=== PATIENT | female | born 1950 | race Caucasian/White ===

== ENCOUNTER 2018-02-27 13:11 | Emergency (ER) | payer MEDICARE, MEDICAID, SELFPAY ==
[2018-02-27 13:18] VITALS: BP 123/75; PULSE 64; RESP 16; TEMP 37.3; O2SAT 100; BMI 23.2
--- NOTE | 2018-02-27 13:22 | ED.ABDPAIN ---
HPI - Abdominal Pain <Cynthia Santos [employer] - Last Filed: 02/27/18 22:47> General Chief Complaint: Abdominal Pain Stated Complaint: Dizziness, Blurred Vision Time Seen by Provider: 02/27/18 13:13 Source: patient, family and EMS Mode of arrival: EMS Limitations: no limitations History of Present Illness HPI narrative: Patient presents with chief complaint of abdominal pain for several days. She has a history of anemia, pancreatitis and ulcers. She states that her pain got worse several days ago that has gone on for weeks prior. States pain is epigastric that radiates to her upper back. She denies any alleviating or worsening factors. She was treated at [facility] emergency department 2 days ago and was diagnosed with a peptic ulcer. She states they started her on medications, but she is unsure what they are called and she states they are too expensive for her to afford. She also complains of nausea, denies vomiting, denies diarrhea and states her last bowel movement was 2 days ago. She denies blood in her stool. She states that [facility] also diagnosed her with a urinary tract infection and started her on Bactrim. Changing factors were this morning when she woke up, she had blurred vision for 2 hrs with lightheadedness/dizziness and felt that she was too weak to stand. She states her legs felt like jelly. She states that her dizziness and blurry vision of resolved. Otherwise patient denies fevers, ear pain, sore throat, cough or congestion. She denies any recent trauma though states she fell 2 weeks ago. An abdominal CT from 02/25/2018 illustrate no bowel obstruction, nonobstructing left intrarenal stone, and stable diffuse biliary dilation. MD complaint: abdominal pain Related Data Home Medications Medication Instructions Recorded Confirmed metoprolol tartrate 25 mg PO DAILY #0 04/24/17 02/27/18 gabapentin 300 mg PO TID #0 08/13/17 02/27/18 sucralfate 1 g PO Q6H 02/27/18 02/27/18 sulfamethoxazole-trimethoprim 1 tab PO BID 02/27/18 02/27/18 Previous Rx's Medication Instructions Recorded hydroxyzine pamoate [Vistaril] 25 mg PO Q4HP PRN #40 cap 08/30/17 diazepam [Valium] 5 mg PO Q8HP PRN #6 tab 04/06/18 omeprazole 20 mg PO DAILY #14 cap 02/27/18 Allergies Allergy/AdvReac Type Severity Reaction Status Date / Time amitriptyline [AMITRIPTYLINE] Allergy Unknown Verified 02/27/18 13:18 tramadol [TRAMADOL] Allergy Unknown Verified 02/27/18 13:18 Review of Systems <[facility] - Last Filed: 02/27/18 22:47> Review of Systems GENERAL: See HPI HEENT: Denies sinus pain, ear pain, sore throat, difficulty swallowing, dizziness. RESPIRATORY: Denies dyspnea, cough, wheezing, hemoptysis, sputum. CARDIOVASCULAR: Denies chest pain, palpitations, orthopnea, edema, GASTROINTESTINAL: See HPI : Denies dysuria, frequency, incontinence, hematuria, urinary retention. MUSCULOSKELETAL: denies weakness, joint pain, or bony pain SKIN: Denies rash, skin lesions, or other NEUROLOGIC: See HPI PSYCHIATRIC: No concerning psychosocial issues. 12 point review of systems is negative except for those stated above Exam <Cynthia Santos [facility] - Last Filed: 02/27/18 22:47> Narrative Exam Narrative: GENERAL: Chronically ill-appearing elderly female lying in bed with at bedside. HEAD: Atraumatic. Normocephalic. No temporal or scalp tenderness. EYES: Pupils equal round and reactive. Extraocular motions intact. No scleral icterus. No injection or drainage. ENT: Nose without bleeding, purulent drainage or septal hematoma. Throat without erythema, tonsillar hypertrophy or exudate. Uvula midline. Airway patent. NECK: Trachea midline. No JVD or lymphadenopathy. Supple, nontender, no meningeal signs. CARDIOVASCULAR: Regular rate and rhythm RESPIRATORY: Clear to auscultation. Breath sounds equal bilaterally. No wheezes, rales, or rhonchi. GASTROINTESTINAL: Abdomen soft, diffusely tender to palpation. Active bowel sounds. No palpable organomegaly Extremities: No clubbing, cyanosis, or edema. No joint tenderness, effusion, or edema noted. BACK: Nontender without deformity or crepitance. No flank tenderness. NEURO: AOx3. Noted to have weakness and left lower leg. Patient states this is chronic. SKIN: No rash or erythema. Initial Vital Signs Initial Vital Signs: Vital Signs Temperature 99.1 F 02/27/18 13:18 Pulse Rate 64 07/12/18 13:18 Respiratory Rate 16 02/27/18 13:18 Blood Pressure 123/75 H 02/27/18 13:18 Pulse Oximetry 100 02/27/18 13:18 <Collin Guzman DO - Last Filed: 02/28/18 07:30> Initial Vital Signs Initial Vital Signs: Vital Signs Temperature 99.1 F 02/27/18 13:18 Pulse Rate 64 02/27/18 13:18 Respiratory Rate 16 02/27/18 13:18 Blood Pressure 123/75 H 02/27/18 13:18 Pulse Oximetry 100 02/27/18 13:18 Course <Cynthia Santos [employer] - Last Filed: 02/27/18 22:47> Additional Information: The patient underwent a thorough examination the emergency department including a CBC, CMP, lipase and troponin. Given her dizziness and blurred vision she had a CT. She also had an EKG due to her epigastric pain. Given her her pain level, a CT was ordered. A CT showed a small obstructing kidney stone. Given the 3 mm size, I discussed pushing fluids and straining her urine. She was discharged with a urine strainer. Given her epigastric pain, I discussed at length dietary changes including decreased acidity and spice. Her pain was tree in the emergency department with oxycodone x1, a GI cocktail and Zofran. Given that she is on a pain contract, she ought to follow up with the primary care physician for outpatient narcotic medications. Orders Ordered: Discontinued Medications Al Hydrox/Mg Hydrox/Simethicone 20 ml/ Lidocaine HCl 15 ml 0 ml PO NOW ONE Stop: 02/27/18 14:30 Last Admin: 02/27/18 14:35 Dose: Not Given Sodium Chloride (Normal Saline 0.9%) 1,000 mls @ 150 mls/hr IV CONT LACY Last Admin: 02/27/18 13:58 Dose: Not Given Sodium Chloride (Normal Saline 0.9%) 1,000 mls @ 150 mls/hr IV CONT LACY Last Infusion: 02/27/18 17:30 Dose: 0 mls/hr Admin: 02/27/18 15:53 Dose: 150 mls/hr Ondansetron HCl (Zofran Odt) 4 mg PO NOW ONE Stop: 02/27/18 14:33 Last Admin: 02/27/18 14:37 Dose: 4 mg Oxycodone HCl (Percolone) 5 mg PO NOW ONE Stop: 02/27/18 17:09 Last Admin: 02/27/18 17:56 Dose: 5 mg Reevaluation(s) Reevaluation #1: Vital Signs - 8 hr 02/27/18 14:35 02/27/18 15:55 02/27/18 16:53 Pulse Rate 65 64 66 Respiratory Rate 16 16 18 Blood Pressure [Left Arm] 121/58 H 139/89 H 149/59 H Pulse Oximetry 99 100 100 02/27/18 17:46 Pulse Rate 63 Respiratory Rate 14 Blood Pressure [Left Arm] 159/76 H Pulse Oximetry 100 <Collin Guzman DO - Last Filed: 02/28/18 07:30> Orders Ordered: Discontinued Medications Al Hydrox/Mg Hydrox/Simethicone 20 ml/ Lidocaine HCl 15 ml 0 ml PO NOW ONE Stop: 02/27/18 14:30 Last Admin: 02/27/18 14:35 Dose: Not Given Sodium Chloride (Normal Saline 0.9%) 1,000 mls @ 150 mls/hr IV CONT LACY Last Admin: 02/27/18 13:58 Dose: Not Given Sodium Chloride (Normal Saline 0.9%) 1,000 mls @ 150 mls/hr IV CONT LACY Last Infusion: 02/27/18 17:30 Dose: 0 mls/hr Admin: 02/27/18 15:53 Dose: 150 mls/hr Ondansetron HCl (Zofran Odt) 4 mg PO NOW ONE Stop: 02/27/18 14:33 Last Admin: 02/27/18 14:37 Dose: 4 mg Oxycodone HCl (Percolone) 5 mg PO NOW ONE Stop: 02/27/18 17:09 Last Admin: 02/27/18 17:56 Dose: 5 mg Vital Signs - 8 hr 02/27/18 14:35 02/27/18 15:55 02/27/18 16:53 Pulse Rate 65 64 66 Respiratory Rate 16 16 18 Blood Pressure [Left Arm] 121/58 H 139/89 H 149/59 H Pulse Oximetry 99 100 100 02/27/18 17:46 Pulse Rate 63 Respiratory Rate 14 Blood Pressure [Left Arm] 159/76 H Pulse Oximetry 100 MDM - Abdominal Pain <Cynthia Santos, [employer] - Last Filed: 02/27/18 22:47> Lab Data Attestation: I reviewed the patient's lab results. Result diagrams: 02/27/18 14:07 02/27/18 14:07 Lab Results 02/27/18 02/27/18 02/27/18 Range/Units 14:07 14:07 15:55 WBC 12.5 H (4.5-11.0) X10^3/uL RBC 3.79 L (4.0-5.2) X10^6/uL Hgb 10.8 L (12.0-16.0) g/dL Hct 32.7 L (36-46) % MCV 86.4 (80-100) fL MCH 28.6 (26-34) PG MCHC 33.0 (30-36) % RDW 21.1 H (11.6-14.8) % Plt Count 407 H (150-400) X10^3/uL Neut % (Auto) 77.0 H (50-75) % Lymph % (Auto) 15.0 L (25-40) % Sharp % (Auto) 6.3 (3-14) % Eos % (Auto) 0.9 L (2-4) % Baso % (Auto) 0.8 (0-2) % Neut # (Auto) 9600 H (4427-1018) /uL RBC Morphology Not Reportable Poikilocytosis 2+ H Anisocytosis 3+ H Spherocytes 2+ H [place] Cells 1+ H Sodium 134 L (137-145) mmol/L Potassium 4.9 (3.4-5.1) mmol/L Chloride 101 (98-107) mmol/L Carbon Dioxide 23 (22-32) mmol/L BUN 24 H (7-17) mg/dL Creatinine 1.60 H (0.52-1.04) mg/dL Estimated GFR 32.2 L (>60) mL/min BUN/Creatinine Ratio 15.0 (6-22) Glucose 105 (80-110) mg/dL Calcium 9.4 (8.4-10.2) mg/dL Total Bilirubin 0.6 (0.2-1.3) mg/dL AST 22 (14-36) IU/L ALT 20 (9-52) IU/L Alkaline Phosphatase 122 (38-126) U/L Total Creatine Kinase 107 (30-135) U/L CK-MB (CK-2) 2.33 (<2.37) ng/mL CK-MB (CK-2) Rel Index 2.2 (1.5-5.0) % Troponin I < 0.012 (0.01-0.034) ng/mL Total Protein 7.0 (6.3-8.2) g/dL Albumin 4.3 (3.5-5.0) g/dL Globulin 2.7 (1.7-4.1) g/dL Albumin/Globulin Ratio 1.6 (1.0-2.8) Lipase 124 (23-300) U/L Urine RBC 0-1/hpf (0-5/HPF) Urine WBC 10-30/hpf H (0-5/HPF) Ur Squamous Epith Cells 0-1 /hpf Urine Bacteria Few (2-10) H (None) Ur Culture Indicated? Specimen cultured Micro UA Comment Not Reportable Point of care testing: Urine Dip Bedside Urine Glucose Negative Bedside Urine Bilirubin - Negative Bedside Urine Ketone - Negative Urine Specific [place] 1.015 Bedside Urine Occult Blood - Negative Bedside Urine pH 6.5 Bedside Urine Protein - Negative Bedside Urine Urobilinogen - Negative Bedside Urine Nitrite - Negative Bedside Urine Leukocytes +++ [address] scan - head: Radiologist's impression: [address] [address] [address] Scan Report Signed Patient: Emani Leiva MR#: [id number] : 1950 Acct:[id number] Age/Sex: 67 / F Date of Service: 02/27/18 Loc: ED Accession Number: [id number] Procedure: CT head/brain wo con Ordering Provider: Cynthia Santos [facility] PROCEDURE: CT HEAD/BRAIN WO CON INDICATIONS: dizziness, blurry vision TECHNIQUE: Noncontrast 4.5 mm thick angled axial sections acquired from the foramen magnum to the vertex, with coronal and sagittal reformats. For radiation dose reduction, the following was used: automated exposure control, adjustment of mA and/or kV according to patient size. COMPARISON: None. FINDINGS: Image quality: Excellent. CSF spaces: Basal cisterns are patent. No extra-axial fluid collections. The ventricles are symmetric in size and shape. Brain: No intracranial bleeds or masses. There is cerebral volume loss for age, with resultant ventricular and sulcal prominence. There are periventricular and deep white matter chronic small vessel ischemic changes. There is intracranial internal carotid artery atherosclerosis. Skull and face: Calvarium and visualized facial bones appear intact, without suspicious lesions. Sinuses: Visualized sinuses and mastoids are clear. IMPRESSION: No acute intracranial abnormality. Dictated by: Jl Downs M.D. on 02/27/2018 at 13:56 Approved by: Jl Downs M.D. on 02/27/2018 at 13:57 CT scan - pelvis: My impression: T10 compression fractures noted on previous outside hospital imaging. Radiologist's impression: ECG Data Attestation: I personally reviewed and interpreted this ECG as follows: Prior ECG tracings: available for review Interpretation: Sinus rhythm. Heart rate 63. No ectopy noted. No ST elevation or depression. MDM Narrative Medical decision making narrative: Patient presented with chief complaint of abdominal pain as well as recent episode of lightheadedness, dizziness and blurred vision. She has a history of pancreatitis, ulcers, and a recent diagnosis of peptic ulcer disease by an outlying facility. A head CT was obtained due to her all sudden onset of weakness of blurred vision. Came back within normal limits. Patient was noted to be slightly anemic, however this appears to be in line with her baseline. Given her epigastric pain, troponin was warning came back negative. She was treated with a GI cocktail, which provided some relief. She was also given some Zofran. However her pain did not improve, so a an abdominal CT was ordered. Her lipase came back within normal limits. On CT, she was found to have a small obstructing kidney stone. Given her a GFR of 32, she was treated with fluids before and after her CT scan. The patient was treated with oxycodone in the emergency department for pain related to her kidney stone. She was discharged with a urine strainer, a prescription for omeprazole for her epigastric pain, and discussed follow-up with her primary care physician. Given her UA indicating infection, a urine culture was ordered for PCP follow-up. I instructed her to continue on the Bactrim she was placed on 2 days prior at [facility]. <Collin Guzman, DO - Last Filed: 02/28/18 07:30> Lab Data Lab Results 02/27/18 02/27/18 02/27/18 Range/Units 14:07 14:07 15:55 WBC 12.5 H (4.5-11.0) X10^3/uL RBC 3.79 L (4.0-5.2) X10^6/uL Hgb 10.8 L (12.0-16.0) g/dL Hct 32.7 L (36-46) % MCV 86.4 (80-100) fL MCH 28.6 (26-34) PG MCHC 33.0 (30-36) % RDW 21.1 H (11.6-14.8) % Plt Count 407 H (150-400) X10^3/uL Neut % (Auto) 77.0 H (50-75) % Lymph % (Auto) 15.0 L (25-40) % Sharp % (Auto) 6.3 (3-14) % Eos % (Auto) 0.9 L (2-4) % Baso % (Auto) 0.8 (0-2) % Neut # (Auto) 9600 H (0390-5666) /uL RBC Morphology Not Reportable Poikilocytosis 2+ H Anisocytosis 3+ H Spherocytes 2+ H [place] Cells 1+ H Sodium 134 L (137-145) mmol/L Potassium 4.9 (3.4-5.1) mmol/L Chloride 101 (98-107) mmol/L Carbon Dioxide 23 (22-32) mmol/L BUN 24 H (7-17) mg/dL Creatinine 1.60 H (0.52-1.04) mg/dL Estimated GFR 32.2 L (>60) mL/min BUN/Creatinine Ratio 15.0 (6-22) Glucose 105 (80-110) mg/dL Calcium 9.4 (8.4-10.2) mg/dL Total Bilirubin 0.6 (0.2-1.3) mg/dL AST 22 (14-36) IU/L ALT 20 (9-52) IU/L Alkaline Phosphatase 122 (38-126) U/L Total Creatine Kinase 107 (30-135) U/L CK-MB (CK-2) 2.33 (<2.37) ng/mL CK-MB (CK-2) Rel Index 2.2 (1.5-5.0) % Troponin I < 0.012 (0.01-0.034) ng/mL Total Protein 7.0 (6.3-8.2) g/dL Albumin 4.3 (3.5-5.0) g/dL Globulin 2.7 (1.7-4.1) g/dL Albumin/Globulin Ratio 1.6 (1.0-2.8) Lipase 124 (23-300) U/L Urine RBC 0-1/hpf (0-5/HPF) Urine WBC 10-30/hpf H (0-5/HPF) Ur Squamous Epith Cells 0-1 /hpf Urine Bacteria Few (2-10) H (None) Ur Culture Indicated? Specimen cultured Micro UA Comment Not Reportable Point of care testing: Urine Dip Bedside Urine Glucose Negative Bedside Urine Bilirubin - Negative Bedside Urine Ketone - Negative Urine Specific [place] 1.015 Bedside Urine Occult Blood - Negative Bedside Urine pH 6.5 Bedside Urine Protein - Negative Bedside Urine Urobilinogen - Negative Bedside Urine Nitrite - Negative Bedside Urine Leukocytes +++ 500 Esterase Discharge Plan Departure Patient Disposition: Home, Self-Care Clinical Impression: Abdominal pain, Kidney stone, Acute UTI Discharge Date/Time: 02/27/18 18:06 Interventions: ED Discharge Assessment Last Done: 02/27/18 18:05 Instructions: Kidney Stones -- Adult, DI for Kidney Stones, DI for Urinary Tract Infection (UTI), DI for Abdominal Pain-Adult, DI for Dyspepsia Activity Restrictions/Additional Instructions: Today we did lots of workup to evaluate your abdominal pain. We ended up finding a small kidney stone. I would like you to drink lots of fluids, strain your urine and continue to take the antibiotic for the urinary tract infection. If you develop kidney pain, vomiting, fever please get re-evaluated as this would be concerning for a kidney infection. I sent her urine out for culture to make sure that the Bactrim you were started on would be effective for your infection. I would like you to drink lots of fluids and strain her urine for stone. Regarding your stomach pain, I started you on a medication called omeprazole. Take this 30 min before you week morning. Monitor your diet do not eat lots of acidic, spicy or fatty foods. This can make your problem worse. Come back to the emergency department if you develop any chest pain or shortness of breath. I suggest following up with your primary care for long-term management of your stomach pain. I also suggest Maalox in addition to the lidocaine that you were given at the other emergency department. That is the drink that we gave you today to help with her pain which provided some relief. Prescriptions: New omeprazole 20 mg capsule,delayed release(DR/EC) 20 mg PO DAILY Qty: 14 RF: 0 No Action metoprolol tartrate 25 MG tablet 25 mg PO DAILY Qty: 0 RF: 0 gabapentin 100 mg Capsule 300 mg PO TID Qty: 0 RF: 0 hydroxyzine pamoate [Vistaril] 25 MG capsule 25 mg PO Q4HP PRNQty: 40 RF: 0 diazepam [Valium] 5 MG tablet 5 mg PO Q8HP PRNQty: 6 RF: 0 sucralfate 1 gram Tablet 1 g PO Q6H RF: 0 sulfamethoxazole-trimethoprim 800-160 mg Tablet 1 tab PO BID RF: 0 Referrals: Luis Hernandez MD [Non-Staff] - <Collin Guzman DO - Last Filed: 02/28/18 07:30> [facility] Att[facility]: I was available for consultation during this patient's emergency department encounter
--- NOTE | 2018-02-27 13:35 | DI.CT.S_ITS ---
PROCEDURE: CT HEAD/BRAIN WO CON INDICATIONS: dizziness, blurry vision TECHNIQUE: Noncontrast 4.5 mm thick angled axial sections acquired from the foramen magnum to the vertex, with coronal and sagittal reformats. For radiation dose reduction, the following was used: automated exposure control, adjustment of mA and/or kV according to patient size. COMPARISON: None. FINDINGS: Image quality: Excellent. CSF spaces: Basal cisterns are patent. No extra-axial fluid collections. The ventricles are symmetric in size and shape. Brain: No intracranial bleeds or masses. There is cerebral volume loss for age, with resultant ventricular and sulcal prominence. There are periventricular and deep white matter chronic small vessel ischemic changes. There is intracranial internal carotid artery atherosclerosis. Skull and face: Calvarium and visualized facial bones appear intact, without suspicious lesions. Sinuses: Visualized sinuses and mastoids are clear. IMPRESSION: No acute intracranial abnormality. Dictated by: Jl Downs M.D. on 02/27/2018 at 13:56 Approved by: Jl Downs M.D. on 02/27/2018 at 13:57
--- NOTE | 2018-02-27 13:41 | ED_ITS ---
HPI - Abdominal Pain <Cynthia Santos STEAM CONDITIONING OPERATOR-BC - Last Filed: 02/27/18 22:47> General Chief Complaint: Abdominal Pain Stated Complaint: Dizziness, Blurred Vision Time Seen by Provider: 02/27/18 13:13 Source: patient, family and EMS Mode of arrival: EMS Limitations: no limitations History of Present Illness HPI narrative: Patient presents with chief complaint of abdominal pain for several days. She has a history of anemia, pancreatitis and ulcers. She states that her pain got worse several days ago that has gone on for weeks prior. States pain is epigastric that radiates to her upper back. She denies any alleviating or worsening factors. She was treated at [facility] emergency department 2 days ago and was diagnosed with a peptic ulcer. She states they started her on medications, but she is unsure what they are called and she states they are too expensive for her to afford. She also complains of nausea, denies vomiting, denies diarrhea and states her last bowel movement was 2 days ago. She denies blood in her stool. She states that [facility] also diagnosed her with a urinary tract infection and started her on Bactrim. Changing factors were this morning when she woke up, she had blurred vision for 2 hrs with lightheadedness/dizziness and felt that she was too weak to stand. She states her legs felt like jelly. She states that her dizziness and blurry vision of resolved. Otherwise patient denies fevers, ear pain, sore throat, cough or congestion. She denies any recent trauma though states she fell 2 weeks ago. An abdominal CT from 02/25/2018 illustrate no bowel obstruction, nonobstructing left intrarenal stone, and stable diffuse biliary dilation. MD complaint: abdominal pain Related Data Home Medications Medication Instructions Recorded Confirmed metoprolol tartrate 25 mg PO DAILY #0 04/24/17 02/27/18 gabapentin 300 mg PO TID #0 08/13/17 02/27/18 sucralfate 1 g PO Q6H 02/27/18 02/27/18 sulfamethoxazole-trimethoprim 1 tab PO BID 02/27/18 02/27/18 Previous Rx's Medication Instructions Recorded hydroxyzine pamoate [Vistaril] 25 mg PO Q4HP PRN #40 cap 08/30/17 diazepam [Valium] 5 mg PO Q8HP PRN #6 tab 04/06/18 omeprazole 20 mg PO DAILY #14 cap 02/27/18 Allergies Allergy/AdvReac Type Severity Reaction Status Date / Time amitriptyline [AMITRIPTYLINE] Allergy Unknown Verified 02/27/18 13:18 tramadol [TRAMADOL] Allergy Unknown Verified 02/27/18 13:18 Review of Systems [facility] Last Filed: 02/27/18 22:47> Review of Systems GENERAL: See HPI HEENT: Denies sinus pain, ear pain, sore throat, difficulty swallowing, dizziness. RESPIRATORY: Denies dyspnea, cough, wheezing, hemoptysis, sputum. CARDIOVASCULAR: Denies chest pain, palpitations, orthopnea, edema, GASTROINTESTINAL: See HPI : Denies dysuria, frequency, incontinence, hematuria, urinary retention. MUSCULOSKELETAL: denies weakness, joint pain, or bony pain SKIN: Denies rash, skin lesions, or other NEUROLOGIC: See HPI PSYCHIATRIC: No concerning psychosocial issues. 12 point review of systems is negative except for those stated above Exam <Cynthia Santos [facility] - Last Filed: 02/27/18 22:47> Narrative Exam Narrative: GENERAL: Chronically ill-appearing elderly female lying in bed with at bedside. HEAD: Atraumatic. Normocephalic. No temporal or scalp tenderness. EYES: Pupils equal round and reactive. Extraocular motions intact. No scleral icterus. No injection or drainage. ENT: Nose without bleeding, purulent drainage or septal hematoma. Throat without erythema, tonsillar hypertrophy or exudate. Uvula midline. Airway patent. NECK: Trachea midline. No JVD or lymphadenopathy. Supple, nontender, no meningeal signs. CARDIOVASCULAR: Regular rate and rhythm RESPIRATORY: Clear to auscultation. Breath sounds equal bilaterally. No wheezes , rales, or rhonchi. GASTROINTESTINAL: Abdomen soft, diffusely tender to palpation. Active bowel sounds. No palpable organomegaly Extremities: No clubbing, cyanosis, or edema. No joint tenderness, effusion, or edema noted. BACK: Nontender without deformity or crepitance. No flank tenderness. NEURO: AOx3. Noted to have weakness and left lower leg. Patient states this is chronic. SKIN: No rash or erythema. Initial Vital Signs Initial Vital Signs: Vital Signs Temperature 99.1 F 02/27/18 13:18 Pulse Rate 64 07/12/18 13:18 Respiratory Rate 16 02/27/18 13:18 Blood Pressure 123/75 H 02/27/18 13:18 Pulse Oximetry 100 02/27/18 13:18 <Collin Guzman DO - Last Filed: 02/28/18 07:30> Initial Vital Signs Initial Vital Signs: Vital Signs Temperature 99.1 F 02/27/18 13:18 Pulse Rate 64 02/27/18 13:18 Respiratory Rate 16 02/27/18 13:18 Blood Pressure 123/75 H 02/27/18 13:18 Pulse Oximetry 100 02/27/18 13:18 Course <Cynthia Santos STEAM CONDITIONING OPERATOR-BC - Last Filed: 02/27/18 22:47> Additional Information: The patient underwent a thorough examination the emergency department including a CBC, CMP, lipase and troponin. Given her dizziness and blurred vision she had a CT. She also had an EKG due to her epigastric pain. Given her her pain level, a CT was ordered. A CT showed a small obstructing kidney stone. Given the 3 mm size, I discussed pushing fluids and straining her urine. She was discharged with a urine strainer. Given her epigastric pain, I discussed at length dietary changes including decreased acidity and spice. Her pain was tree in the emergency department with oxycodone x1, a GI cocktail and Zofran. Given that she is on a pain contract, she ought to follow up with the primary care physician for outpatient narcotic medications. Orders Ordered: Discontinued Medications Al Hydrox/Mg Hydrox/Simethicone 20 ml/ Lidocaine HCl 15 ml 0 ml PO NOW ONE Stop: 02/27/18 14:30 Last Admin: 02/27/18 14:35 Dose: Not Given Sodium Chloride (Normal Saline 0.9%) 1,000 mls @ 150 mls/hr IV CONT LACY Last Admin: 02/27/18 13:58 Dose: Not Given Sodium Chloride (Normal Saline 0.9%) 1,000 mls @ 150 mls/hr IV CONT LACY Last Infusion: 02/27/18 17:30 Dose: 0 mls/hr Admin: 02/27/18 15:53 Dose: 150 mls/hr Ondansetron HCl (Zofran Odt) 4 mg PO NOW ONE Stop: 02/27/18 14:33 Last Admin: 02/27/18 14:37 Dose: 4 mg Oxycodone HCl (Percolone) 5 mg PO NOW ONE Stop: 02/27/18 17:09 Last Admin: 02/27/18 17:56 Dose: 5 mg Reevaluation(s) Reevaluation #1: Vital Signs - 8 hr 02/27/18 14:35 02/27/18 15:55 02/27/18 16:53 Pulse Rate 65 64 66 Respiratory Rate 16 16 18 Blood Pressure [Left Arm] 121/58 H 139/89 H 149/59 H Pulse Oximetry 99 100 100 02/27/18 17:46 Pulse Rate 63 Respiratory Rate 14 Blood Pressure [Left Arm] 159/76 H Pulse Oximetry 100 <Collin Guzman DO - Last Filed: 02/28/18 07:30> Orders Ordered: Discontinued Medications Al Hydrox/Mg Hydrox/Simethicone 20 ml/ Lidocaine HCl 15 ml 0 ml PO NOW ONE Stop: 02/27/18 14:30 Last Admin: 02/27/18 14:35 Dose: Not Given Sodium Chloride (Normal Saline 0.9%) 1,000 mls @ 150 mls/hr IV CONT LACY Last Admin: 02/27/18 13:58 Dose: Not Given Sodium Chloride (Normal Saline 0.9%) 1,000 mls @ 150 mls/hr IV CONT LACY Last Infusion: 02/27/18 17:30 Dose: 0 mls/hr Admin: 02/27/18 15:53 Dose: 150 mls/hr Ondansetron HCl (Zofran Odt) 4 mg PO NOW ONE Stop: 02/27/18 14:33 Last Admin: 02/27/18 14:37 Dose: 4 mg Oxycodone HCl (Percolone) 5 mg PO NOW ONE Stop: 02/27/18 17:09 Last Admin: 02/27/18 17:56 Dose: 5 mg Vital Signs - 8 hr 02/27/18 14:35 02/27/18 15:55 02/27/18 16:53 Pulse Rate 65 64 66 Respiratory Rate 16 16 18 Blood Pressure [Left Arm] 121/58 H 139/89 H 149/59 H Pulse Oximetry 99 100 100 02/27/18 17:46 Pulse Rate 63 Respiratory Rate 14 Blood Pressure [Left Arm] 159/76 H Pulse Oximetry 100 MDM - Abdominal Pain <Cynthia Santos, STEAM CONDITIONING OPERATOR-BC - Last Filed: 02/27/18 22:47> Lab Data Attestation: I reviewed the patient's lab results. Result diagrams: 02/27/18 14:07 02/27/18 14:07 Lab Results 02/27/18 02/27/18 02/27/18 Range/Units 14:07 14:07 15:55 WBC 12.5 H (4.5-11.0) X10^3/uL RBC 3.79 L (4.0-5.2) X10^6/uL Hgb 10.8 L (12.0-16.0) g/dL Hct 32.7 L (36-46) % MCV 86.4 (80-100) fL MCH 28.6 (26-34) PG MCHC 33.0 (30-36) % RDW 21.1 H (11.6-14.8) % Plt Count 407 H (150-400) X10^3/uL Neut % (Auto) 77.0 H (50-75) % Lymph % (Auto) 15.0 L (25-40) % [place] % (Auto) 6.3 (3-14) % Eos % (Auto) 0.9 L (2-4) % Baso % (Auto) 0.8 (0-2) % Neut # (Auto) 9600 H (1236-2182) /uL RBC Morphology Not Reportable Poikilocytosis 2+ H Anisocytosis 3+ H Spherocytes 2+ H [place] Cells 1+ H Sodium 134 L (137-145) mmol/L Potassium 4.9 (3.4-5.1) mmol/L Chloride 101 (98-107) mmol/L Carbon Dioxide 23 (22-32) mmol/L BUN 24 H (7-17) mg/dL Creatinine 1.60 H (0.52-1.04) mg/dL Estimated GFR 32.2 L (>60) mL/min BUN/Creatinine Ratio 15.0 (6-22) Glucose 105 (80-110) mg/dL Calcium 9.4 (8.4-10.2) mg/dL Total Bilirubin 0.6 (0.2-1.3) mg/dL AST 22 (14-36) IU/L ALT 20 (9-52) IU/L Alkaline Phosphatase 122 (38-126) U/L Total Creatine Kinase 107 (30-135) U/L CK-MB (CK-2) 2.33 (<2.37) ng/mL CK-MB (CK-2) Rel Index 2.2 (1.5-5.0) % Troponin I < 0.012 (0.01-0.034) ng/mL Total Protein 7.0 (6.3-8.2) g/dL Albumin 4.3 (3.5-5.0) g/dL Globulin 2.7 (1.7-4.1) g/dL Albumin/Globulin Ratio 1.6 (1.0-2.8) Lipase 124 (23-300) U/L Urine RBC 0-1/hpf (0-5/HPF) Urine WBC 10-30/hpf H (0-5/HPF) Ur Squamous Epith Cells 0-1 /hpf Urine Bacteria Few (2-10) H (None) Ur Culture Indicated? Specimen cultured Micro UA Comment Not Reportable Point of care testing: Urine Dip Bedside Urine Glucose Negative Bedside Urine Bilirubin - Negative Bedside Urine Ketone - Negative Urine Specific [place] 1.015 Bedside Urine Occult Blood - Negative Bedside Urine pH 6.5 Bedside Urine Protein - Negative Bedside Urine Urobilinogen - Negative Bedside Urine Nitrite - Negative Bedside Urine Leukocytes +++ [address] scan - head: Radiologist's impression: [address] [address] [address] Scan Report Signed Patient: Emani Leiva MR#: [id number] : 1950 Acct:[id number] Age/Sex: 67 / F Date of Service: 02/27/18 Loc: ED Accession Number: [id number] Procedure: CT head/brain wo con Ordering Provider: Cynthia Santos [facility] PROCEDURE: CT HEAD/BRAIN WO CON INDICATIONS: dizziness, blurry vision TECHNIQUE: Noncontrast 4.5 mm thick angled axial sections acquired from the foramen magnum to the vertex, with coronal and sagittal reformats. For radiation dose reduction, the following was used: automated exposure control, adjustment of mA and/or kV according to patient size. COMPARISON: None. FINDINGS: Image quality: Excellent. CSF spaces: Basal cisterns are patent. No extra-axial fluid collections. The ventricles are symmetric in size and shape. Brain: No intracranial bleeds or masses. There is cerebral volume loss for age , with resultant ventricular and sulcal prominence. There are periventricular and deep white matter chronic small vessel ischemic changes. There is intracranial internal carotid artery atherosclerosis. Skull and face: Calvarium and visualized facial bones appear intact, without suspicious lesions. Sinuses: Visualized sinuses and mastoids are clear. IMPRESSION: No acute intracranial abnormality. Dictated by: Jl Downs M.D. on 02/27/2018 at 13:56 Approved by: Jl Downs M.D. on 02/27/2018 at 13:57 CT scan - pelvis: My impression: T10 compression fractures noted on previous outside hospital imaging. Radiologist's impression: ECG Data Attestation: I personally reviewed and interpreted this ECG as follows: Prior ECG tracings: available for review Interpretation: Sinus rhythm. Heart rate 63. No ectopy noted. No ST elevation or depression. MDM Narrative Medical decision making narrative: Patient presented with chief complaint of abdominal pain as well as recent episode of lightheadedness, dizziness and blurred vision. She has a history of pancreatitis, ulcers, and a recent diagnosis of peptic ulcer disease by an outlying facility. A head CT was obtained due to her all sudden onset of weakness of blurred vision. Came back within normal limits. Patient was noted to be slightly anemic, however this appears to be in line with her baseline. Given her epigastric pain, troponin was warning came back negative. She was treated with a GI cocktail, which provided some relief. She was also given some Zofran. However her pain did not improve, so a an abdominal CT was ordered. Her lipase came back within normal limits. On CT, she was found to have a small obstructing kidney stone. Given her a GFR of 32, she was treated with fluids before and after her CT scan. The patient was treated with oxycodone in the emergency department for pain related to her kidney stone. She was discharged with a urine strainer, a prescription for omeprazole for her epigastric pain, and discussed follow-up with her primary care physician. Given her UA indicating infection, a urine culture was ordered for PCP follow- up. I instructed her to continue on the Bactrim she was placed on 2 days prior at [facility]. <Collin Guzman, DO - Last Filed: 02/28/18 07:30> Lab Data Lab Results 02/27/18 02/27/18 02/27/18 Range/Units 14:07 14:07 15:55 WBC 12.5 H (4.5-11.0) X10^3/uL RBC 3.79 L (4.0-5.2) X10^6/uL Hgb 10.8 L (12.0-16.0) g/dL Hct 32.7 L (36-46) % MCV 86.4 (80-100) fL MCH 28.6 (26-34) PG MCHC 33.0 (30-36) % RDW 21.1 H (11.6-14.8) % Plt Count 407 H (150-400) X10^3/uL Neut % (Auto) 77.0 H (50-75) % Lymph % (Auto) 15.0 L (25-40) % [place] % (Auto) 6.3 (3-14) % Eos % (Auto) 0.9 L (2-4) % Baso % (Auto) 0.8 (0-2) % Neut # (Auto) 9600 H (2014-6716) /uL RBC Morphology Not Reportable Poikilocytosis 2+ H Anisocytosis 3+ H Spherocytes 2+ H [place] Cells 1+ H Sodium 134 L (137-145) mmol/L Potassium 4.9 (3.4-5.1) mmol/L Chloride 101 (98-107) mmol/L Carbon Dioxide 23 (22-32) mmol/L BUN 24 H (7-17) mg/dL Creatinine 1.60 H (0.52-1.04) mg/dL Estimated GFR 32.2 L (>60) mL/min BUN/Creatinine Ratio 15.0 (6-22) Glucose 105 (80-110) mg/dL Calcium 9.4 (8.4-10.2) mg/dL Total Bilirubin 0.6 (0.2-1.3) mg/dL AST 22 (14-36) IU/L ALT 20 (9-52) IU/L Alkaline Phosphatase 122 (38-126) U/L Total Creatine Kinase 107 (30-135) U/L CK-MB (CK-2) 2.33 (<2.37) ng/mL CK-MB (CK-2) Rel Index 2.2 (1.5-5.0) % Troponin I < 0.012 (0.01-0.034) ng/mL Total Protein 7.0 (6.3-8.2) g/dL Albumin 4.3 (3.5-5.0) g/dL Globulin 2.7 (1.7-4.1) g/dL Albumin/Globulin Ratio 1.6 (1.0-2.8) Lipase 124 (23-300) U/L Urine RBC 0-1/hpf (0-5/HPF) Urine WBC 10-30/hpf H (0-5/HPF) Ur Squamous Epith Cells 0-1 /hpf Urine Bacteria Few (2-10) H (None) Ur Culture Indicated? Specimen cultured Micro UA Comment Not Reportable Point of care testing: Urine Dip Bedside Urine Glucose Negative Bedside Urine Bilirubin - Negative Bedside Urine Ketone - Negative Urine Specific [place] 1.015 Bedside Urine Occult Blood - Negative Bedside Urine pH 6.5 Bedside Urine Protein - Negative Bedside Urine Urobilinogen - Negative Bedside Urine Nitrite - Negative Bedside Urine Leukocytes +++ 500 Esterase Discharge Plan Departure Patient Disposition: Home, Self-Care Clinical Impression: Abdominal pain, Kidney stone, Acute UTI Discharge Date/Time: 02/27/18 18:06 Interventions: ED Discharge Assessment Last Done: 02/27/18 18:05 Instructions: Kidney Stones -- Adult, DI for Kidney Stones, DI for Urinary Tract Infection (UTI), DI for Abdominal Pain-Adult, DI for Dyspepsia Activity Restrictions/Additional Instructions: Today we did lots of workup to evaluate your abdominal pain. We ended up finding a small kidney stone. I would like you to drink lots of fluids, strain your urine and continue to take the antibiotic for the urinary tract infection. If you develop kidney pain, vomiting, fever please get re-evaluated as this would be concerning for a kidney infection. I sent her urine out for culture to make sure that the Bactrim you were started on would be effective for your infection. I would like you to drink lots of fluids and strain her urine for stone. Regarding your stomach pain, I started you on a medication called omeprazole. Take this 30 min before you week morning. Monitor your diet do not eat lots of acidic, spicy or fatty foods. This can make your problem worse. Come back to the emergency department if you develop any chest pain or shortness of breath. I suggest following up with your primary care for long- term management of your stomach pain. I also suggest Maalox in addition to the lidocaine that you were given at the other emergency department. That is the drink that we gave you today to help with her pain which provided some relief. Prescriptions: New omeprazole 20 mg capsule,delayed release(DR/EC) 20 mg PO DAILY Qty: 14 RF: 0 No Action metoprolol tartrate 25 MG tablet 25 mg PO DAILY Qty: 0 RF: 0 gabapentin 100 mg Capsule 300 mg PO TID Qty: 0 RF: 0 hydroxyzine pamoate [Vistaril] 25 MG capsule 25 mg PO Q4HP PRNQty: 40 RF: 0 diazepam [Valium] 5 MG tablet 5 mg PO Q8HP PRNQty: 6 RF: 0 sucralfate 1 gram Tablet 1 g PO Q6H RF: 0 sulfamethoxazole-trimethoprim 800-160 mg Tablet 1 tab PO BID RF: 0 Referrals: Luis Hernandez MD [Non-Staff] - <Collin Guzman DO - Last Filed: 02/28/18 07:30> [facility] Attestation: I was available for consultation during this patient's emergency department encounter
[2018-02-27 14:15] LABS: Add Manual Diff / Slide Review NO; Basophils Percent Auto 0.8 % (0-2); Eosinophils Percent Auto 0.9 % (2-4); Hematocrit 32.7 % (36-46); Hemoglobin 10.8 g/dL (12.0-16.0); Mean Corpuscular Hemoglobin 28.6 PG (26-34); Mean Corpuscular Volume 86.4 fL (80-100); Monocytes Percent Auto 6.3 % (3-14); Neutrophils Absolute Auto 9600 /uL (3000-5900); Platelet Count 407 X10^3/uL (150-400); Red Blood Cell Count 3.79 X10^6/uL (4.0-5.2); Red Cell Distribution Width 21.1 % (11.6-14.8); White Blood Cell Count 12.5 X10^3/uL (4.5-11.0)
[2018-02-27 14:25] LABS: Alanine Aminotransferase 20 IU/L (9-52); Albumin 4.3 g/dL (3.5-5.0); Albumin Globulin Ratio 1.6 (1.0-2.8); Alkaline Phosphatase 122 U/L (38-126); Aspartate Aminotransferase 22 IU/L (14-36); Bilirubin Total 0.6 mg/dL (0.2-1.3); Blood Urea Nitrogen 24 mg/dL (7-17); Calcium 9.4 mg/dL (8.4-10.2); Carbon Dioxide 23 mmol/L (22-32); Chloride 101 mmol/L (98-107); Creatine Kinase 107 U/L (30-135); Estimated Glomerular Filt Rate 32.2 mL/min (>60); Globulin 2.7 g/dL (1.7-4.1); Glucose 105 mg/dL (80-110); HEMOLYSIS < 15 (0-50); Lipase 124 U/L (23-300); Potassium 4.9 mmol/L (3.4-5.1); Sodium 134 mmol/L (137-145)
[2018-02-27 14:35] VITALS: BP 121/58; PULSE 65; RESP 16; O2SAT 99
[2018-02-27] MEDS: ONDANSETRON 4 MG ODT PO (14:37)
[2018-02-27 14:53] LABS: CKMB % Relative Index 2.2 % (1.5-5.0); Creatine Kinase MB 2.33 ng/mL (<2.37)
[2018-02-27 14:58] LABS: Troponin I < 0.012 ng/mL (0.01-0.034)
[2018-02-27 14:59] LABS: Anisocytosis 3+; Burr Cells 1+; Poikilocytosis 2+
[2018-02-27 15:00] LABS: Spherocytes 2+
--- NOTE | 2018-02-27 15:18 | DI.CT.S_ITS ---
PROCEDURE: CT ABDOMEN PELVIS W CON INDICATIONS: abd pain TECHNIQUE: After the administration of intravenous contrast, 5 mm thick sections acquired from the diaphragm to the symphysis. 5 mm coronal and sagittal reformats were acquired. For radiation dose reduction, the following was used: automated exposure control, adjustment of mA and/or kV according to patient size. COMPARISON: [facility], CR, THORACIC SPINE 3 VIEWS, 11/22/2017, 16:55. [facility], CT, ABDOMEN/PELVIS WITH CONTRAST, 04/08/2017, 22:43. FINDINGS: Image quality: Excellent. ABDOMEN: Lung bases: Lung bases are clear. Heart size is normal. Solid organs: Liver is normal in size and enhancement. Gallbladder is surgically absent. Biliary system is dilated at 9 mm but not as marked as on prior study. Pancreas enhances normally. Spleen is normal in size and enhancement. No adrenal nodules. Kidneys demonstrate normal size and enhancement. There are multiple nonobstructing calculi in the left kidney. There is mild left hydronephrosis that appears secondary to a low density 3 mm calculus at the ureteropelvic junction. The 5 mm stone in the lower pole collecting system of the right kidney on last CT exam is no longer seen. Peritoneum and bowel: Bowel loops demonstrate normal wall thickness and caliber. No free fluid or air. Nodes and vessels: No retroperitoneal or mesenteric adenopathy by size criteria. Aorta and inferior vena cava are normal in size. Miscellaneous: No ventral hernias. PELVIS: Genitourinary: Bladder wall thickness is normal. Uterus is surgically absent. Small amount of free fluid in the posterior pelvis. Miscellaneous: No inguinal hernias or adenopathy. Bones: No suspicious bony lesions. Compression fractures T10 and T12. The T12 fracture is chronic however the T10 fracture appears new compared to study of 11/22/2017. Status post vertebroplasty L2 and L4. IMPRESSION: 1. Left nephrolithiasis and mild hydronephrosis secondary to a small obstructing calculus at the ureteropelvic junction. 2. Status post cholecystectomy with expected dilatation of the extrahepatic bile duct. 3. Status post hysterectomy. Ovaries are nonvisualized as before. 4. Compression fractures thoracic and lumbar spine, T10 fracture appearing to be new since November of this year. Dictated by: Jann Shelby M.D. on 02/27/2018 at 16:33 Approved by: Jann Shelby M.D. on 02/27/2018 at 16:52
[2018-02-27] MEDS: SODIUM CHLORIDE 0.9% 1,000 ML 150 ML IV (15:53)
[2018-02-27 15:55] VITALS: BP 139/89; PULSE 64; RESP 16; O2SAT 100
[2018-02-27 16:24] LABS: RBC Urine 0-1/HPF (0-5/HPF); WBC Urine 10-30/HPF (0-5/HPF)
[2018-02-27 16:25] LABS: Bacteria Urine Few (2-10); Culture Indicated Urine Specimen Cultured; Squamous Epithelial Cell Urine 0-1 /HPF
[2018-02-27 16:53] VITALS: BP 149/59; PULSE 66; RESP 18; O2SAT 100
[2018-02-27 17:46] VITALS: BP 159/76; PULSE 63; RESP 14; O2SAT 100
[2018-02-27] MEDS: OXYCODONE IR 5 MG TABLET PO (17:56)
== END 2018-02-27 18:06 | disposition home or self-care (01) ==
PROVIDERS: Emergency Provider Nurse Practitioner Family
DX: R10.9 Unspecified abdominal pain (principal); N20.0 Calculus of kidney; N39.0 Urinary tract infection, site not specified
CPT/HCPCS: 70450; 74177; 80053; 81003; 81015; 82550; 82553; 83690; 84484; 85025; 87086; 93005; 96360; 96361; 99283; 99285; Q9967

== ENCOUNTER 2018-04-19 09:24 | Emergency (ER) | payer MEDICARE, MEDICAID, SELFPAY ==
--- NOTE | 2018-04-19 | DI.RAD.S_ITS ---
PROCEDURE: XR CHEST 2V INDICATIONS: RIGHT CHEST BRUISING FROM FALL 5 DAYS AGO TECHNIQUE: 2 views of the chest were acquired. COMPARISON: None. FINDINGS: Surgical changes and devices: None. Lungs and pleura: No pleural effusions or pneumothorax. Lungs are clear. Mediastinum: Mediastinal contours are normal. Heart size is normal. Bones and chest wall: No suspicious bony abnormalities. Soft tissues appear unremarkable. IMPRESSION: No acute cardiopulmonary findings. Dictated by: Suellen Herrmann M.D. on 04/19/2018 at 11:24 Approved by: Suellen Herrmann M.D. on 04/19/2018 at 11:24
[2018-04-19 09:26] VITALS: BP 216/100; PULSE 63; RESP 14; TEMP 36.2; O2SAT 99; BMI 23.2
[2018-04-19 10:13] VITALS: BP 175/78; PULSE 61; RESP 14; O2SAT 100
--- NOTE | 2018-04-19 10:24 | DI.RAD.S_ITS ---
PROCEDURE: XR SHOULDER RT MIN 2V INDICATIONS: fall 1 week ago, pain and limited mobility right shoulder. TECHNIQUE: 3 views of the shoulder were acquired. COMPARISON: [facility], CHEST 1 VIEW, 04/24/2017, 12:41. FINDINGS: Bones: There is a minimally displaced distal right clavicular fracture. The acuity of this finding is unknown, and there is questionable heterotopic ossification suggesting a subacute or chronic finding. Intramedullary cement is partially visualized within the mid humerus. Visualized portions of the ribs are intact. No other fracture or dislocation. Soft tissues: No suspicious soft tissue calcifications. IMPRESSION: Minimally displaced distal clavicular fracture, the acuity of which is unknown. This is a new finding when compared with the prior chest film dated 04/24/17. Dictated by: Suellen Herrmann M.D. on 04/19/2018 at 11:26 Approved by: Suellen Herrmann M.D. on 04/19/2018 at 11:27
[2018-04-19 10:42] LABS: Hematocrit 33.9 % (36-46); Hemoglobin 11.1 g/dL (12.0-16.0); Mean Corpuscular HGB Conc 32.8 % (30-36); Mean Corpuscular Hemoglobin 30.2 PG (26-34); Mean Corpuscular Volume 92.1 fL (80-100); Platelet Count 533 X10^3/uL (150-400); Red Blood Cell Count 3.68 X10^6/uL (4.0-5.2); Red Cell Distribution Width 14.5 % (11.6-14.8); White Blood Cell Count 11.4 X10^3/uL (4.5-11.0)
--- NOTE | 2018-04-19 10:44 | ED_ITS ---
HPI - Weakness General Chief complaint: Weakness Stated complaint: rt arm pain Time Seen by Provider: 04/19/18 10:26 Source: patient Mode of arrival: ambulatory Limitations: no limitations History of Present Illness HPI Narrative: Patient is a 67-year-old female who presents with right shoulder pain. She fell about 5 days ago. Landing on her shoulder. She just found out that her son committed suicide she was not herself she is not exactly sure how she fell. She is also worried because she had outpatient blood work done of this week and they told her she was extremely anemic. She has had GI bleeding off and on. She says her stomach has been screwed up but denies any dark black stools or bright red blood per rectum. She has been nauseated at times but no vomiting. No abdominal pain. She denies any chest pain shortness of breath weakness or lightheadedness. MD Complaint: generalized weakness Related Data Home Medications Medication Instructions Recorded Confirmed metoprolol tartrate 25 mg PO BID #0 04/24/17 04/19/18 gabapentin 300 mg PO TID #0 08/13/17 04/19/18 omeprazole 20 mg PO BID 04/19/18 04/19/18 oxycodone 5 mg PO QID 04/19/18 04/19/18 Allergies Allergy/AdvReac Type Severity Reaction Status Date / Time amitriptyline [AMITRIPTYLINE] Allergy Unknown Verified 04/19/18 09:33 tramadol [TRAMADOL] Allergy Unknown Verified 04/19/18 09:33 Review of Systems Review of Systems All systems reviewed & are unremarkable except as noted in HPI and below Constitutional Reports as per HPI, Denies fatigue, Denies fever(s) and Reports poor appetite Eyes Denies change in vision, Denies eye discharge, Denies irritation and Denies loss of vision Cardiovascular Denies chest pain, Denies irregular heart rhythm, Denies lightheadedness, Denies palpitations, Denies dyspnea, Denies dyspnea on exertion and Denies orthopnea Respiratory Denies cough, Denies dyspnea, Denies dyspnea on exertion and Denies wheezing Gastrointestinal Gastrointestinal: Reports as per HPI Genitourinary Denies hematuria, Denies flank pain, Denies urinary incontinence and Denies urinary urgency Musculoskeletal Reports as per HPI, Denies back pain, Denies muscle weakness, Denies numbness and Denies tingling Integumentary/Breasts Denies pruritus, Denies erythema, Denies rash and Denies wounds Neurologic Denies loss of vision, Denies numbness and Denies tingling Endocrine Denies fatigue and Denies palpitations Allergic/Immunologic Denies wheezing PFSH Medical History Chronic pain (Acute) GI bleeding (Acute) Social History Smoking Status: Current every day smoker Exam Initial Vital Signs Initial Vital Signs: Vital Signs Temperature 97.1 F L 04/19/18 09:26 Pulse Rate 63 04/19/18 09:26 Respiratory Rate 14 04/19/18 09:26 Blood Pressure 216/100 H 04/19/18 09:26 Pulse Oximetry 99 04/19/18 09:26 GENERAL: Well-appearing, well-nourished and in no acute distress. HEENT: Head atraumatic,EOMI, pupils reactive, CARDIOVASCULAR: Regular rate and rhythm without murmurs, rubs or gallops. RESPIRATORY: Breath sounds equal bilaterally, no wheezes rales or rhonchi. ABDOMEN: Soft, nontender. Normoactive bowel sounds all 4 quadrants. No guarding or rebound. EXTREMITIES: Normal range of motion, no clubbing or edema. Neurovascularly intact -no clavicle step-offs no deformity she is tender right in the AC joint. decreased range of motion due to pain NEUROLOGICAL: Alert and oriented x4.Normal gait and speech. Cranial nerves II through XII grossly intact. SKIN: Contusion noted on the right side of her chest Course Orders Ordered: ED Orders 04/19/18 10:24 XR shoulder RT min 2V Stat 04/19/18 10:31 Complete Blood Count MAN DIFF Stat Comprehensive Metabolic Panel Stat Prothrombin Time INR Stat Discontinued Medications Morphine Sulfate (Morphine Sulfate) 4 mg IV NOW ONE Stop: 04/19/18 12:55 Last Admin: 04/19/18 13:00 Dose: 4 mg Vital Signs - 8 hr 04/19/18 10:13 04/19/18 11:25 04/19/18 13:16 Pulse Rate 61 64 74 Respiratory Rate 14 15 18 Blood Pressure 158/87 H Blood Pressure [Left Arm] 175/78 H 169/92 H Pulse Oximetry 100 100 99 MDM - Weakness Lab Data Attestation: I reviewed the patient's lab results. Result diagrams: 04/19/18 10:31 04/19/18 10:31 Lab Results 04/19/18 04/19/18 04/19/18 Range/Units 10:31 10:31 10:31 WBC 11.4 H (4.5-11.0) X10^3/uL RBC 3.68 L (4.0-5.2) X10^6/uL Hgb 11.1 L (12.0-16.0) g/dL Hct 33.9 L (36-46) % MCV 92.1 (80-100) fL MCH 30.2 (26-34) PG MCHC 32.8 (30-36) % RDW 14.5 (11.6-14.8) % Plt Count 533 H (150-400) X10^3/uL Total Counted 100 Seg Neutrophils % 84.0 H (38-70) % Lymphocytes % (Manual) 10.0 L (25-45) % Monocytes % (Manual) 4.0 (2-11) % Eosinophils % (Manual) 0.0 L (2-4) % Basophils % (Manual) 2.0 H (0-1) % Neutrophils # (Manual) 9576 H (0816-5785) /uL RBC Morphology Normal morphology PT 11.6 (10.1-12.7) SECONDS INR 1.1 (0.9-1.3) Sodium 143 (137-145) mmol/L Potassium 4.2 (3.4-5.1) mmol/L Chloride 106 (98-107) mmol/L Carbon Dioxide 25 (22-32) mmol/L BUN 17 (7-17) mg/dL Creatinine 1.40 H (0.52-1.04) mg/dL Estimated GFR 37.6 L (>60) mL/min BUN/Creatinine Ratio 12.1 (6-22) Glucose 97 (80-110) mg/dL Calcium 9.7 (8.4-10.2) mg/dL Total Bilirubin 0.3 (0.2-1.3) mg/dL AST 22 (14-36) IU/L ALT 20 (9-52) IU/L Alkaline Phosphatase 105 (38-126) U/L Total Protein 7.5 (6.3-8.2) g/dL Albumin 4.0 (3.5-5.0) g/dL Globulin 3.5 (1.7-4.1) g/dL Albumin/Globulin Ratio 1.1 (1.0-2.8) Imaging Data Chest x-ray: Radiologist's impression: PROCEDURE: XR CHEST 2V INDICATIONS: RIGHT CHEST BRUISING FROM FALL 5 DAYS AGO TECHNIQUE: 2 views of the chest were acquired. COMPARISON: None. FINDINGS: Surgical changes and devices: None. Lungs and pleura: No pleural effusions or pneumothorax. Lungs are clear. Mediastinum: Mediastinal contours are normal. Heart size is normal. Bones and chest wall: No suspicious bony abnormalities. Soft tissues appear unremarkable. IMPRESSION: No acute cardiopulmonary findings. Dictated by: Suellen Herrmann M.D. on 04/19/2018 at 11:24 Approved by: Suellen Herrmann M.D. on 04/19/2018 at 11:24 ADDENDUM: Please note, there is likely a minimally displaced distal right clavicular fracture. Dictated by: Suellen Herrmann M.D. on 04/19/2018 at 11:26 right shoulder x ray: Radiologist's impression: PROCEDURE: XR SHOULDER RT MIN 2V INDICATIONS: fall 1 week ago, pain and limited mobility right shoulder. TECHNIQUE: 3 views of the shoulder were acquired. COMPARISON: [facility], , CHEST 1 VIEW, 04/24/2017, 12:41. FINDINGS: Bones: There is a minimally displaced distal right clavicular fracture. The acuity of this finding is unknown, and there is questionable heterotopic ossification suggesting a subacute or chronic finding. Intramedullary cement is partially visualized within the mid humerus. Visualized portions of the ribs are intact. No other fracture or dislocation. Soft tissues: No suspicious soft tissue calcifications. IMPRESSION: Minimally displaced distal clavicular fracture, the acuity of which is unknown. This is a new finding when compared with the prior chest film dated 02/02. Dictated by: Suellen Herrmann M.D. on 04/19/2018 at 11:26 [facility] Narrative Medical decision making narrative: Patient actually is not anemic her hemoglobin and hematocrit have increased since February. She is noted to have a distal clavicle fracture. No other fractures are identified. All blood work all looks good. She is requesting something for pain. She is on Oxy code own at home. She cannot have NSAIDs or Tylenol. At this time I recommend she see her primary care provider have regards to further pain management. She is given a dose of morphine here in the ED. Discharge Plan Departure Patient Disposition: Home Clinical Impression: Fracture of right clavicle Discharge Date/Time: 04/19/18 13:16 Interventions: ED Discharge Assessment Last Done: 04/19/18 13:16 Instructions: DI for Clavicle Fracture-Adult Activity Restrictions/Additional Instructions: *You have been diagnosed with right clavicle fracture *What to do: Wear sling, he to follow up with orthopedic *Continue to take medications as directed -if you should need more pain medication you need to discuss this with your primary doctor *Follow up with your primary care provider in 2-3 days *Return to ER if you should have shortness of breath, increasing pain or any new , worsening or concerning symptoms Prescriptions: No Action metoprolol tartrate 25 MG tablet 25 mg PO BID Qty: 0 RF: 0 gabapentin 100 mg Capsule 300 mg PO TID Qty: 0 RF: 0 omeprazole 20 mg capsule,delayed release(DR/EC) 20 mg PO BID RF: 0 oxycodone 5 mg tablet 5 mg PO QID RF: 0
[2018-04-19 10:49] LABS: INR 1.1 (0.9-1.3); Prothrombin Time 11.6 SECONDS (10.1-12.7)
[2018-04-19 10:54] LABS: Alanine Aminotransferase 20 IU/L (9-52); Albumin Globulin Ratio 1.1 (1.0-2.8); Alkaline Phosphatase 105 U/L (38-126); Aspartate Aminotransferase 22 IU/L (14-36); BUN Creatinine Ratio 12.1 (6-22); Bilirubin Total 0.3 mg/dL (0.2-1.3); Blood Urea Nitrogen 17 mg/dL (7-17); Calcium 9.7 mg/dL (8.4-10.2); Carbon Dioxide 25 mmol/L (22-32); Chloride 106 mmol/L (98-107); Estimated Glomerular Filt Rate 37.6 mL/min (>60); Globulin 3.5 g/dL (1.7-4.1); Glucose 97 mg/dL (80-110); HEMOLYSIS < 15 (0-50); Potassium 4.2 mmol/L (3.4-5.1); Sodium 143 mmol/L (137-145); Total Protein 7.5 g/dL (6.3-8.2)
[2018-04-19 11:25] VITALS: BP 169/92; PULSE 64; RESP 15; O2SAT 100
[2018-04-19] MEDS: MORPHINE 5 MG/ML INJ 4 MG IV (13:00)
[2018-04-19 13:16] VITALS: BP 158/87; PULSE 74; RESP 18; O2SAT 99
[2018-04-19 13:18] LABS: Neutrophils Absolute Manual 9576 /uL (3000-5900); RBC Morphology Normal Morphology; Total Cells Counted 100
== END 2018-04-19 13:16 | disposition home or self-care (01) ==
PROVIDERS: Emergency Provider Emergency Medicine
DX: S42.001A Fracture of unspecified part of right clavicle, initial encounter for closed fracture (principal); W19.XXXA Unspecified fall, initial encounter
CPT/HCPCS: 36591; 71046; 73030; 80053; 85025; 85610; 96374; 99283; 99284; J2270

== ENCOUNTER 2018-06-11 15:15 | Inpatient (IN) | payer MEDICARE, MEDICAID, SELFPAY ==
[2018-06-11 15:22] VITALS: BP 142/60; PULSE 104; RESP 20; TEMP 37.1; O2SAT 99; BMI 22.8
--- NOTE | 2018-06-11 16:24 | DI.RAD.S_ITS ---
PROCEDURE: XR ABDOMEN 1V INDICATIONS: presyncope, nausea/vomiting TECHNIQUE: One view of the abdomen acquired. COMPARISON: None. FINDINGS: Surgical changes and devices: Surgical clips right upper quadrant, kyphoplasty/vertebroplasty bone cement noted at L2 and L4. Bowel: Bowel gas pattern is nonspecific. Soft tissues: No suspicious abdominal calcifications. Visualized solid organ contours appear normal in size. Bones: No suspicious bony lesions. IMPRESSION: Nonspecific bowel gas pattern, no intestinal obstruction or perforations are suspected. Prior vertebroplasty/kyphoplasty bone cement injections at the lumbosacral spine. Prior cholecystectomy presumed by the pattern of surgical clips in the right upper quadrant. Dictated by: Anthony Jordan M.D. on 06/11/2018 at 16:56 Approved by: Anthony Jordan M.D. on 06/11/2018 at 16:57
--- NOTE | 2018-06-11 16:26 | DI.RAD.S_ITS ---
PROCEDURE: XR CHEST 1V INDICATIONS: presyncope, nausea/vomiting TECHNIQUE: One view of the chest was acquired. COMPARISON: None. FINDINGS: Surgical changes and devices: None. Lungs and pleura: No pleural effusions or pneumothorax. Lungs are clear. Mediastinum: Mediastinal contours appear normal. Heart size is normal. Bones and chest wall: No suspicious bony lesions. Overlying soft tissues appear unremarkable. IMPRESSION: Normal for age, source of current symptoms is not seen. Dictated by: Anthony Jordan M.D. on 06/11/2018 at 16:57 Approved by: Anthony Jordan M.D. on 06/11/2018 at 16:58
--- NOTE | 2018-06-11 16:29 | ED_ITS ---
HPI - Dizziness General Chief Complaint: Dizziness Stated Complaint: Dizziness x3 days Time Seen by Provider: 06/11/18 16:07 Source: patient and EMS Mode of arrival: EMS Limitations: no limitations History of Present Illness HPI Narrative: This is a 67-year-old female who comes in with complaint of dizziness she feels like she is going to pass out whenever she gets up or tries to stand up. Patient states that this is been going on for a couple days but was getting worse today and she could not get around the house. She states she had some emesis. She denies any headache, she denies any vision changes. She denies any shortness of breath or chest pain currently. She denies any abdominal pain. She does not feel nauseated currently but did have emesis in the department. She has had some diarrhea that was very dark in color but she attributes this to her iron infusions at [facility] about 6 days ago. Patient has not had any fevers. She has had some numbness in her fingers but this is after her injuries. She was admitted at [facility] for 10 days for a right upper extremity fracture as well as a fracture of the left 5th finger. She had a pretty extensive surgery on the left arm and elbow and states that she was recommended to be admitted to a rehab facility but deferred to go home. She has not had any increasing weakness or increasing numbness in those extremities. She states that it occurred after she had a fall she is also out of her home medications including metoprolol as well as her OxyContin. She was given Dilaudid at [facility] which she weaned off of and had a couple tablets of OxyContin and but had run out and she has a pain management contract and was in the hospital when she was supposed to refill it. She denies any prior cardiac issues, she denies a dyslipidemia or diabetes. She states she has had 14 bones surgeries. As well as a hysterectomy, appendectomy in her tonsils out. She does vape use tobacco until recently, she denies any alcohol or illicit. Related Data Home Medications Medication Instructions Recorded Confirmed metoprolol tartrate 25 mg PO BID #0 04/24/17 06/11/18 omeprazole 20 mg PO BID 04/19/18 04/19/18 oxycodone 5 mg PO QID 04/19/18 06/11/18 alendronate 1 tab PO QWEEK 06/11/18 06/11/18 carisoprodol 1 tab PO DAILY 06/11/18 06/11/18 gabapentin 06/11/18 hydromorphone 06/11/18 pantoprazole 06/11/18 polyethylene glycol 3350 06/11/18 Allergies Allergy/AdvReac Type Severity Reaction Status Date / Time amitriptyline [AMITRIPTYLINE] Allergy Unknown Verified 04/19/18 09:33 tramadol [TRAMADOL] Allergy Unknown Verified 04/19/18 09:33 Review of Systems Review of Systems All systems reviewed & are unremarkable except as noted in HPI and below Constitutional Denies chills, Denies fever(s), Denies headache(s) and Reports weakness (general ) ENT Ears, Nose, Mouth, and Throat: Reports dizziness, Denies headache(s) and Denies neck pain Cardiovascular Reports chest pain, Denies diaphoresis, Denies syncope (feels like she is going to pass out when upright, not when laying down), Denies irregular heart rhythm, Reports lightheadedness, Denies radiating jaw, neck or arm pain, Denies palpitations, Denies dyspnea, Denies dyspnea on exertion and Denies orthopnea Respiratory Denies chest congestion, Denies cough, Denies dyspnea, Denies dyspnea on exertion and Denies wheezing Gastrointestinal Gastrointestinal: Denies abdominal pain, Denies change in bowel habits, Reports diarrhea (dark stools), Reports nausea and Reports vomiting Genitourinary Denies difficulty voiding Musculoskeletal Reports as per HPI, Denies neck pain and Reports numbness Integumentary/Breasts Reports other (healing incision) Neurologic Reports dizziness, Denies syncope (feels like she is going to pass out when upright, not when laying down), Denies headache(s), Denies focal weakness, Reports numbness and Reports weakness (general) Endocrine Denies palpitations Allergic/Immunologic Denies wheezing [facility] Medical History Chronic pain (Acute) GI bleeding (Acute) Social History Smoking Status: Current every day smoker Exam Narrative Exam Narrative: GEN: Then well-appearing female, alert and oriented x , patient appears to be in mild distress. HEENT: Atraumatic, pupils are equal round reactive to light, extraocular movements are intact, nares are clear, there is no conjunctival pallor. Throat is clear without any exudates, erythema, tonsillar enlargement or uvular deviation HEART: Tachycardia, regular rate and rhythm without murmur, clicks, rubs. 2+ radial pulse on right. No edema bilateral lower extremities. LUNGS:Lungs clear to auscultation, no wheezes, rales, crackles, chest moves symmetrically, no tachypnea. Speaks in full sentences. ABD:bowel sounds normal, soft, non-tender, no guarding, rebound, rigidity, no masses noted, no hepatosplenomegaly :No CVA tenderness MSCL: Patient's left hand and forearm are in a splint. She has movement of the distal fingers and upper shoulder on the left. On the right she has a fairly good range of motion. Um she has incision running from the upper humeral region all the way down the forearm. She does not have any swelling of the upper extremity, no muscle atrophy, she has full range of motion of lower extremity NEURO:CN 2-12 intact, sensation normal Initial Vital Signs Initial Vital Signs: Vital Signs Temperature 98.7 F 06/11/18 15:22 Pulse Rate 104 H 06/11/18 15:22 Respiratory Rate 20 06/11/18 15:22 Blood Pressure 142/60 H 06/11/18 15:22 Pulse Oximetry 99 06/11/18 15:22 Course Orders Ordered: ED Orders 06/11/18 15:28 EKG-12 Lead Routine 06/11/18 16:15 Complete Blood Count AUTO DIFF Stat Comprehensive Metabolic Panel Stat Partial Thromboplastin Time Stat Procalcitonin Stat Prothrombin Time INR Stat Troponin I Stat 06/11/18 16:24 XR abdomen 1V Stat 06/11/18 16:26 XR chest 1V Stat 06/11/18 16:50 Lactate (Lactic Acid) Stat Type and Screen Stat 06/11/18 16:58 Blood Culture Stat Discontinued Medications Hydromorphone HCl (Dilaudid) 1 mg IV NOW ONE Stop: 06/11/18 17:08 Last Admin: 06/11/18 17:13 Dose: 1 mg Sodium Chloride (Normal Saline 0.9%) 1,000 mls @ 1,000 mls/hr IV BOLUS ONE Stop: 06/11/18 17:23 Last Infusion: 06/11/18 18:20 Dose: 0 mls/hr Admin: 06/11/18 17:13 Dose: 1,000 mls/hr Sodium Chloride (Normal Saline 0.9%) 500 mls @ 1,000 mls/hr IV BOLUS ONE Stop: 06/11/18 18:42 Last Admin: 06/11/18 18:24 Dose: 1,000 mls/hr Vital Signs - 8 hr 06/11/18 15:22 06/11/18 16:30 06/11/18 17:35 Temperature 98.7 F Pulse Rate 104 H 102 H 108 H Respiratory Rate 20 17 14 Blood Pressure 142/60 H Blood Pressure [Right Ankle] 143/86 H 101/59 L Pulse Oximetry 99 100 100 06/11/18 18:31 Temperature Pulse Rate 99 H Respiratory Rate 17 Blood Pressure Blood Pressure [Right Ankle] 121/61 Pulse Oximetry 100 MDM - Dizziness Lab Data Attestation: I reviewed the patient's lab results. Result diagrams: 06/11/18 16:15 06/11/18 16:15 Lab Results 06/11/18 06/11/18 06/11/18 Range/Units 16:15 16:15 16:15 WBC (4.5-11.0) X10^3/uL RBC (4.0-5.2) X10^6/uL Hgb (12.0-16.0) g/dL Hct (36-46) % MCV (80-100) fL MCH (26-34) PG MCHC (30-36) % RDW (11.6-14.8) % Plt Count (150-400) X10^3/uL Neut % (Auto) (50-75) % Lymph % (Auto) (25-40) % Ector % (Auto) (3-14) % Eos % (Auto) (2-4) % Baso % (Auto) (0-2) % Neut # (Auto) (8903-4080) /uL Plt Morphology Comment RBC Morphology Anisocytosis PT 12.6 (10.1-12.7) SECONDS INR 1.2 (0.9-1.3) APTT 36 (26.4-36.2) SECONDS Sodium 135 L (137-145) mmol/L Potassium 4.4 (3.4-5.1) mmol/L Chloride 102 (98-107) mmol/L Carbon Dioxide 17 L (22-32) mmol/L BUN 21 H (7-17) mg/dL Creatinine 1.30 H (0.52-1.04) mg/dL Estimated GFR 41.0 L (>60) mL/min BUN/Creatinine Ratio 16.2 (6-22) Glucose 98 (80-110) mg/dL Lactate (0.7-2.1) mmol/L Calcium 9.0 (8.4-10.2) mg/dL Total Bilirubin 0.4 (0.2-1.3) mg/dL AST 36 (14-36) IU/L ALT 21 (9-52) IU/L Alkaline Phosphatase 165 H (38-126) U/L Troponin I (0.01-0.034) ng/mL Total Protein 7.8 (6.3-8.2) g/dL Albumin 4.1 (3.5-5.0) g/dL Globulin 3.7 (1.7-4.1) g/dL Albumin/Globulin Ratio 1.1 (1.0-2.8) Procalcitonin 11.51 H (<0.5) ng/mL 06/11/18 06/11/18 06/11/18 Range/Units 16:15 16:15 16:50 WBC 13.6 H (4.5-11.0) X10^3/uL RBC 3.33 L (4.0-5.2) X10^6/uL Hgb 10.2 L (12.0-16.0) g/dL Hct 31.5 L (36-46) % MCV 94.7 (80-100) fL MCH 30.5 (26-34) PG MCHC 32.3 (30-36) % RDW 16.7 H (11.6-14.8) % Plt Count 1182 H* (150-400) X10^3/uL Neut % (Auto) 80.6 H (50-75) % Lymph % (Auto) 13.1 L (25-40) % Ector % (Auto) 5.1 (3-14) % Eos % (Auto) 0.1 L (2-4) % Baso % (Auto) 1.1 (0-2) % Neut # (Auto) 19250 H (5612-1399) /uL Plt Morphology Comment 1+ large plts RBC Morphology See below Anisocytosis 1+ H PT (10.1-12.7) SECONDS INR (0.9-1.3) APTT (26.4-36.2) SECONDS Sodium (137-145) mmol/L Potassium (3.4-5.1) mmol/L Chloride (98-107) mmol/L Carbon Dioxide (22-32) mmol/L BUN (7-17) mg/dL Creatinine (0.52-1.04) mg/dL Estimated GFR (>60) mL/min BUN/Creatinine Ratio (6-22) Glucose (80-110) mg/dL Lactate 0.7 (0.7-2.1) mmol/L Calcium (8.4-10.2) mg/dL Total Bilirubin (0.2-1.3) mg/dL AST (14-36) IU/L ALT (9-52) IU/L Alkaline Phosphatase (38-126) U/L Troponin I < 0.012 (0.01-0.034) ng/mL Total Protein (6.3-8.2) g/dL Albumin (3.5-5.0) g/dL Globulin (1.7-4.1) g/dL Albumin/Globulin Ratio (1.0-2.8) Procalcitonin (<0.5) ng/mL Urine Dip Bedside Urine Glucose Negative Bedside Urine Bilirubin - Negative Bedside Urine Ketone ++ 40 Urine Specific Gilson 1.015 Bedside Urine Occult Blood - Negative Bedside Urine pH 6.0 Bedside Urine Protein - Negative Bedside Urine Urobilinogen - Negative Bedside Urine Nitrite - Negative Bedside Urine Leukocytes +++ 500 Esterase Imaging Data Chest x-ray: Radiologist's impression: [address] [address] XRay Report Signed Patient: Emani Leiva LMR#: [id number] : 2Acct:[id number] Age/Sex: 67 / FDate of Service: 06/11/18 Loc: ED Accession Number: [id number] Procedure: XR chest 1V Ordering Provider: Cynthia Kennedy D.O. PROCEDURE: XR CHEST 1V INDICATIONS: presyncope, nausea/vomiting TECHNIQUE: One view of the chest was acquired. COMPARISON: None. FINDINGS: Surgical changes and devices: None. Lungs and pleura: No pleural effusions or pneumothorax. Lungs are clear. Mediastinum: Mediastinal contours appear normal. Heart size is normal. Bones and chest wall: No suspicious bony lesions. Overlying soft tissues appear unremarkable. IMPRESSION: Normal for age, source of current symptoms is not seen. Dictated by: Anthony Jordan M.D. on 06/11/2018 at 16:57 Approved by: Anthony Jordan M.D. on 06/11/2018 at 16:58 Abdominal x-ray: Radiologist's impression: [address] [address] XRay Report Signed Patient: Emani Leiva LMR#: [id number] : 2Acct:[id number] Age/Sex: 67 / FDate of Service: 06/11/18 Loc: ED Accession Number: [id number] Procedure: XR abdomen 1V Ordering Provider: Cynthia Kennedy D.O. PROCEDURE: XR ABDOMEN 1V INDICATIONS: presyncope, nausea/vomiting TECHNIQUE: One view of the abdomen acquired. COMPARISON: None. FINDINGS: Surgical changes and devices: Surgical clips right upper quadrant, kyphoplasty/vertebroplasty bone cement noted at L2 and L4. Bowel: Bowel gas pattern is nonspecific. Soft tissues: No suspicious abdominal calcifications. Visualized solid organ contours appear normal in size. Bones: No suspicious bony lesions. IMPRESSION: Nonspecific bowel gas pattern, no intestinal obstruction or perforations are suspected. Prior vertebroplasty/kyphoplasty bone cement injections at the lumbosacral spine. Prior cholecystectomy presumed by the pattern of surgical clips in the right upper quadrant. Dictated by: Anthony Jordan M.D. on 06/11/2018 at 16:56 Approved by: Anthony Jordan M.D. on 06/11/2018 at 16:57 ECG Data Attestation: I personally reviewed and interpreted this ECG as follows: Prior ECG tracings: available for review Interpretation: Sinus tachycardia with occasional supraventricular complex. Rate of 103, P are 132 QRS of 77 QTC of 396. Patient appears have a little bit of artifact but nonspecific ST changes. Patient's prior EKG from 02/28/2028 appears similar except for V3 appears slightly different without an inverted T- wave on the new EKG. MDM Narrative Medical decision making narrative: Patient has slightly elevated white count, her platelets are quite elevated at 1 million. She has no changes on chest x- ray or abdominal x-ray. No clear signs of infection with her surgical sites. She has not had any fevers in the emergency department. She had some vomiting initially but none since. She continues to be tachycardic in the 105 range after a L of fluid. She has not had any urine output yet. Troponin is negative , renal function appears fairly baseline. Patient's electrolytes are not very abnormal. Her hemoglobin has improved from her stay at [facility]. It is unclear she did receive any blood products it is not noted in her discharge summary that I have received but her numbers have improved since she was there in early May. She states she did receive quite a bit of iron infusions while she was in the hospital. Patient's procalcitonin is quite elevated 11.5 unclear if this is because of an infectious source her potentially another cause but with her recent surgery and hospital stay bacteremia would be possibility on the differential. Spoke with Dr. Logan who accepts patient. Urine is still pending. Discharge Plan Departure Patient Disposition: Admitted as Observation Clinical Impression: Pre-syncope, Tachycardia, Thrombocytosis Admit Date/Time: 06/11/18 18:42 Admit Provider: Yuliana Logan
[2018-06-11 16:30] VITALS: BP 143/86; PULSE 102; RESP 17; O2SAT 100
[2018-06-11 16:33] LABS: Add Manual Diff / Slide Review NO; Basophils Percent Auto 1.1 % (0-2); Eosinophils Percent Auto 0.1 % (2-4); Hematocrit 31.5 % (36-46); Hemoglobin 10.2 g/dL (12.0-16.0); Lymphocytes Percent Auto 13.1 % (25-40); Mean Corpuscular HGB Conc 32.3 % (30-36); Mean Corpuscular Hemoglobin 30.5 PG (26-34); Mean Corpuscular Volume 94.7 fL (80-100); Monocytes Percent Auto 5.1 % (3-14); Neutrophils Absolute Auto 11000 /uL (3000-5900); Neutrophils Percent Auto 80.6 % (50-75); Red Blood Cell Count 3.33 X10^6/uL (4.0-5.2); Red Cell Distribution Width 16.7 % (11.6-14.8); White Blood Cell Count 13.6 X10^3/uL (4.5-11.0)
[2018-06-11 16:35] LABS: INR 1.2 (0.9-1.3); Prothrombin Time 12.6 SECONDS (10.1-12.7)
[2018-06-11 16:38] LABS: PTT Partial Thromboplastin Tim 36 SECONDS (26.4-36.2)
[2018-06-11 16:42] LABS: Alanine Aminotransferase 21 IU/L (9-52); Albumin 4.1 g/dL (3.5-5.0); Albumin Globulin Ratio 1.1 (1.0-2.8); Alkaline Phosphatase 165 U/L (38-126); Aspartate Aminotransferase 36 IU/L (14-36); BUN Creatinine Ratio 16.2 (6-22); Bilirubin Total 0.4 mg/dL (0.2-1.3); Blood Urea Nitrogen 21 mg/dL (7-17); Carbon Dioxide 17 mmol/L (22-32); Chloride 102 mmol/L (98-107); Globulin 3.7 g/dL (1.7-4.1); Glucose 98 mg/dL (80-110); HEMOLYSIS 25 (0-50); Potassium 4.4 mmol/L (3.4-5.1); Sodium 135 mmol/L (137-145); Total Protein 7.8 g/dL (6.3-8.2)
[2018-06-11 16:54] LABS: Troponin I < 0.012 ng/mL (0.01-0.034)
[2018-06-11 17:01] LABS: Procalcitonin 11.51 ng/mL (<0.5)
[2018-06-11 17:08] LABS: Platelet Count 1182 X10^3/uL (150-400)
[2018-06-11 17:09] LABS: Anisocytosis 1+; Platelet Morphology Comment 1+ LARGE PLTS
[2018-06-11] MEDS: SODIUM CHLORIDE 0.9% 1,000 ML 1000 ML IV (17:13)
[2018-06-11] MEDS: HYDROMORPHONE 1 MG INJ IV (17:13)
[2018-06-11 17:27] LABS: Lactate (Lactic Acid) 0.7 mmol/L (0.7-2.1)
[2018-06-11 17:35] VITALS: BP 101/59; PULSE 108; RESP 14; O2SAT 100
[2018-06-11] MEDS: SODIUM CHLORIDE 0.9% 500 ML 1000 ML IV (18:24)
[2018-06-11 18:31] VITALS: BP 121/61; PULSE 99; RESP 17; O2SAT 100
[2018-06-11 19:09] VITALS: BMI 22.8
[2018-06-11 19:50] VITALS: BP 141/70; PULSE 97; RESP 17; TEMP 37.1; O2SAT 99
[2018-06-11 19:55] VITALS: BP 172/81; PULSE 97; RESP 18; TEMP 36.8; O2SAT 99
--- NOTE | 2018-06-11 22:04 | PC.NURSE ---
ADMISSION Received pt at approximately 1958 via [facility], accompanied by ED EMT. A&Ox3, pt tearful from pain to RUE, pt states incision pain is burning like acid. able to transfer from gurelma to bed with SBA. pt reports slight improvement of dizziness with activity. tele monitoring maintained. oriented pt to room. call light within reach.
[2018-06-11] MEDS: SODIUM CHLORIDE 0.9% FLUSH 10 ML IV (22:28)
[2018-06-11] MEDS: HYDROMORPHONE 0.5 MG INJ 1 MG IV (22:28)
--- NOTE | 2018-06-11 23:07 | P.HP_ITS ---
History of Present Illness Chief complaint: Dizziness x3 days Narrative: The patient is a 67-year-old female with PMH significant for osteoporosis, gastritis, h/o GIB, opiate induced constipation, and chronic pain (h/o fibromyalgia, neuropathy) with opioid dependence. Patient presents out of concern for dizziness, lightheadedness, and generalized weakness. Symptom onset 2-3 days; however, significantly more bothersome today. Associated symptoms include nausea, vomiting, diarrhea w/ dark hue, and decreased appetite. Onset of diarrhea is acute, started on the morning of 06/11 , describes contents as extremely loose, black, and tarry. She developed vomiting after arrival to the ED. Patient notes diminished to food in fluid intake mostly due to generalized weakness and inability to fully care for herself. Symptoms are exacerbated with position change. She has not experienced a syncopal event. Also, denies headache, change in vision, cough, dyspnea, chest pain, palpitations, abdominal pain, dysuria, hematuria, and hematochezia. Patient has not experienced fever or chills. Patient was recently hospitalized at [facility] for 10 days for right upper extremity fracture and fracture of the left 5th finger. During that hospitalization she underwent an extensive surgical repair of her injuries. Patient notes that she felt better last week and requested premature discharge from the hospital. She notes that the she was encouraged to stay longer with further recommendation to be discharged into rehab facility. Patient disregarded the recommendations and opted out to go home thinking she can recover on her own with the help of her significant other. However, her significant other sustained an injury, which caused him a great deal of disability and for this reason he was unable to care for the patient. Patient notes having a degree of weakness after discharge, however the degree of weakness has progressively worsened as the days progressed. She reports running out of all of her medications for the past 4-5 days, including her opioid medications. Patient reports generalized pain from fibromyalgia and acute pain in the right upper extremity. Notes taking Tylenol and baby aspirins at home for pain control and notes these to be ineffective. Patient History Medical History Chronic pain (Acute) GI bleeding (Acute) Family & Social History Family History: Reviewed 06/12/18 by NICOLE Albrecht Social History: Social history History of tobacco dependence for 50+ years, half to 1 pack per day. Quit 2 years ago. Currently does not smoke Denies history of prior and current alcohol use and recreational drug use. Lives in a house w/ significant other. Prior to her recent arm injury patient was independent in ADLs. Since discharge from most recent hospitalization patient is fairly debilitated and notes inability to take care of self. Safety & Behavioral: Feels Safe in Current Yes Environment Been Physically Hurt or No Threatened By a Person Suicidal Ideation Description None Suicide Plan Description No Plan Tobacco & Substance use: Smoking Status Former smoker alcohol intake never Substance Use Type denies current use Meds Home Medications Medication Instructions Recorded Confirmed Type metoprolol tartrate 25 mg PO BID #0 04/24/17 06/11/18 History omeprazole 20 mg PO BID 04/19/18 04/19/18 History oxycodone 5 mg PO QID 04/19/18 06/11/18 History alendronate 1 tab PO QWEEK 06/11/18 06/11/18 History carisoprodol 1 tab PO DAILY 06/11/18 06/11/18 History gabapentin 1 tab PO TID 06/11/18 06/11/18 History hydromorphone 06/11/18 History pantoprazole 1 tab PO BID 06/11/18 06/11/18 History polyethylene glycol 3350 1 packet PO DAILY PRN 06/11/18 06/11/18 History Allergies Allergy/AdvReac Type Severity Reaction Status Date / Time amitriptyline [AMITRIPTYLINE] Allergy Unknown Verified 04/19/18 09:33 tramadol [TRAMADOL] Allergy Unknown Verified 04/19/18 09:33 Review of Systems Review of Systems All systems reviewed & are unremarkable except as noted in HPI and below Constitutional Comments: Exam Vital Signs (past 8 hours): - 06/11/18 15:22 06/11/18 16:30 06/11/18 17:35 Temperature 98.7 F Pulse Rate 104 H 102 H 108 H Respiratory Rate 20 17 14 Blood Pressure 142/60 H Blood Pressure [Right Ankle] 143/86 H 101/59 L Pulse Oximetry 99 100 100 06/11/18 18:31 06/11/18 19:50 06/11/18 19:55 Temperature 98.7 F 98.2 F Pulse Rate 99 H 97 H 97 H Respiratory Rate 17 17 18 Blood Pressure 141/70 H 172/81 H Blood Pressure [Right Ankle] 121/61 Pulse Oximetry 100 99 99 Oxygen Delivery Method Room Air Narrative Exam Narrative: Constitutional: NAD, cooperative Head: NC / AT Eyes: appearance and alignment normal, sclerae anicteric, pupils equal and reactive, EOMI Ears: external ears normal Nose: external nose normal, no epistaxis or nasal discharge Throat: oropharynx normal, dry mucous membranes Neck: normal visual inspection, full ROM, no JVD Chest: normal appearance of chest, no tenderness to palpation Resp: shallow respiratory effort, diminished breath sounds bilaterally, no dyspnea or tachypnea, no accessory muscle use Cardio: S1S2, no murmur GI: soft, NT, ND, no organomegaly, diminished BS : No suprapubic tenderness or distension Skin: RUE surgical incision (elbow to shoulder) approximated, no drainage, edema, or erythema; Steri-Strips present; open to air Neuro: Alert and oriented x3, sluggish/drowsy disposition, follows commands, no focal unilateral deficits Musc: Generalized weakness in upper and lower extremities Extrem: No edema, but pedal pulses diminished but palpable; left hand splint present (left fingers - sensation intact) Objective Labs Result Diagrams: 06/12/18 02:53 06/12/18 02:53 Labs: Laboratory Results - last 24 hr 06/11/18 06/11/18 06/11/18 16:15 16:15 16:15 WBC RBC Hgb Hct MCV MCH MCHC RDW Plt Count Neut % (Auto) Lymph % (Auto) [place] % (Auto) Eos % (Auto) Baso % (Auto) Neut # (Auto) Plt Morphology Comment RBC Morphology Anisocytosis PT 12.6 INR 1.2 APTT 36 Sodium 135 L Potassium 4.4 Chloride 102 Carbon Dioxide 17 L BUN 21 H Creatinine 1.30 H Estimated GFR 41.0 L BUN/Creatinine Ratio 16.2 Glucose 98 Lactate Calcium 9.0 Total Bilirubin 0.4 AST 36 ALT 21 Alkaline Phosphatase 165 H Troponin I Total Protein 7.8 Albumin 4.1 Globulin 3.7 Albumin/Globulin Ratio 1.1 Procalcitonin 11.51 H Blood Type Antibody Screen 06/11/18 06/11/18 06/11/18 16:15 16:15 16:50 WBC 13.6 H RBC 3.33 L Hgb 10.2 L Hct 31.5 L MCV 94.7 MCH 30.5 MCHC 32.3 RDW 16.7 H Plt Count 1182 H* Neut % (Auto) 80.6 H Lymph % (Auto) 13.1 L [place] % (Auto) 5.1 Eos % (Auto) 0.1 L Baso % (Auto) 1.1 Neut # (Auto) 65990 H Plt Morphology Comment 1+ large plts RBC Morphology See below Anisocytosis 1+ H PT INR APTT Sodium Potassium Chloride Carbon Dioxide BUN Creatinine Estimated GFR BUN/Creatinine Ratio Glucose Lactate 0.7 Calcium Total Bilirubin AST ALT Alkaline Phosphatase Troponin I < 0.012 Total Protein Albumin Globulin Albumin/Globulin Ratio Procalcitonin Blood Type Antibody Screen 06/11/18 16:50 WBC RBC Hgb Hct MCV MCH MCHC RDW Plt Count Neut % (Auto) Lymph % (Auto) [place] % (Auto) Eos % (Auto) Baso % (Auto) Neut # (Auto) Plt Morphology Comment RBC Morphology Anisocytosis PT INR APTT Sodium Potassium Chloride Carbon Dioxide BUN Creatinine Estimated GFR BUN/Creatinine Ratio Glucose Lactate Calcium Total Bilirubin AST ALT Alkaline Phosphatase Troponin I Total Protein Albumin Globulin Albumin/Globulin Ratio Procalcitonin Blood Type O Positive Antibody Screen Negative Assessment & Plan Plan: Assessment/Plan Narrative: Generalized weakness 2/2 recent acute illness, dehydration, diminished activity, and deconditioning - PT eval and treat Elevated PCT level (11.51) Status post recent orthopedic surgery with reported orthopedic hardware. No fever or chills. Lactic Acid WNL. - Repeat PCT in am, if upward trending, then will start on empiric therapy - Blood cultures pending Melena Has taken few doses of low dose ASA by report. H/O gastric ulcers with prior GIB. Has not been taking her PPI. Reports recent iron infusions - FOBT Hypovolemia, 2/2 diminished food and fluid intake - received NS bolus in ED - continue maintenance IVF, re-evaluate further need for IVF in a.m. Thrombocytosis has a h/o elevated platelet count; historical trend of elevated plt count ddx: infection vs anemia / iron deficiency (pt reports that recently required aggressive iron repletion) vs non-infectious inflammation Anemia, Hgb 10.2 chronic disease vs inflammatory state vs acute blood loss - FOBT - Trend Hgb level w/ am lab - CBC in am FE, suspected Baseline renal function is not known. 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 She follows with Pain Medicine. Known to have pain management contract. Reports being on 5 mg p.o. oxycodone q.i.d. Patient reports infrequent use of opioid medications; however, also notes having fibromyalgia and baseline chronic pain of 4 to 5/10 Reports high pain tolerance, able to tolerate pain in the 6-7/10 range Patient states that she has ran out of her opioids, noting that she has not taken anything for pain for the past 4 days States that she has an appointment with her pain doctor in the next 2 days Quality VTE Deep Vein Thrombosis/Pulmonary Embolism Present on Admission: No
[2018-06-12] VITALS (7 sets, daily range): BP systolic 124–186; BP diastolic 66–108; PULSE 89–117; RESP 15–18; TEMP 36.6–37.4; O2SAT 90–99
[2018-06-12] MEDS: OXYCODONE IR 5 MG TABLET PO ×4 (01:02→15:49)
[2018-06-12] MEDS: SODIUM CHLORIDE 0.9% 1,000 ML 75 ML IV ×2 (01:04→14:44)
[2018-06-12 03:03] LABS: Basophils Percent Auto 1.3 % (0-2); Eosinophils Percent Auto 0.6 % (2-4); Hematocrit 28.4 % (36-46); Hemoglobin 9.2 g/dL (12.0-16.0); Lymphocytes Percent Auto 27.5 % (25-40); Mean Corpuscular HGB Conc 32.4 % (30-36); Mean Corpuscular Hemoglobin 30.5 PG (26-34); Mean Corpuscular Volume 94.2 fL (80-100); Monocytes Percent Auto 6.8 % (3-14); Neutrophils Absolute Auto 8100 /uL (3000-5900); Neutrophils Percent Auto 63.8 % (50-75); Red Blood Cell Count 3.02 X10^6/uL (4.0-5.2); Red Cell Distribution Width 17.1 % (11.6-14.8); White Blood Cell Count 12.8 X10^3/uL (4.5-11.0)
[2018-06-12 03:17] LABS: Blood Urea Nitrogen 18 mg/dL (7-17); Calcium 8.3 mg/dL (8.4-10.2); Carbon Dioxide 20 mmol/L (22-32); Chloride 109 mmol/L (98-107); Estimated Glomerular Filt Rate 44.9 mL/min (>60); Glucose 113 mg/dL (80-110); HEMOLYSIS < 15 (0-50); Potassium 3.9 mmol/L (3.4-5.1); Sodium 140 mmol/L (137-145)
[2018-06-12 03:33] LABS: Add Manual Diff / Slide Review SLIDE REVIEW; Platelet Count 972 X10^3/uL (150-400)
[2018-06-12 03:35] LABS: Procalcitonin 7.02 ng/mL (<0.5)
--- NOTE | 2018-06-12 03:44 | PC.NURSE ---
0344 got patient up to go to the bathroom. Patient needed to void and got weepy while voiding saying I should have never come to this hospital. I will never come back to it. It's not because of you girls, you're great. It's that other lady. That stupid other lady. I came here because I hurt and needed help and she just gives me Tylenol. I could've done that at home. I came here because I needed help. What do I need to do to get help from her? What did I do to her to get treated like this? I tried to comfort her and told her I'd tell her nurse what transpired. Patient back in bed with call light within reach, bed alarm on.
--- NOTE | 2018-06-12 05:13 | PM.EVENT ---
Date Patient Seen: 06/12/18 Time Patient Seen: 02:06 Received notification from patient's RN requesting an increase in dose of oxycodone. Patient states that she takes oxycodone 10 mg QID. Upon my initial interview w/ the patient earlier in the night, it was communicated that she takes 5 mg QID, which was also listed in her home med list. When reconciling patient's medication I have decreased oxycodone from QID to TID due to patient's sluggish / lethargic disposition upon my initial interaction with the patient. I have made patient aware that opioids will be held if she is too lethargic. I have scheduled a high dose of tylenol to take in between the opioid doses. I have attended to patient's bedside for re-evaluation of her pain and neurological state. Upon my arrival patient was speaking to the nurse and appeared to be upset because it was communicated to her that the medication dose was adjusted out of concern for lethargy. I have attempted to explain to the patient the reason for change in frequency of oxycodone and discuss options available. However, patient was minimally receptive and proceeded to communicate back to me in an a contemptuous tone and manner the explanation provided. I have communicated to the patient that am here to help her and listen to ther concerns and the aforementioned demeaner is not helpful. the patient has proceeded to repeat her behavior and communicated back to me the contents of the aforementioned statement with radicular. At that point communication with the patient was seized. I made patient aware that I will be available to discuss her pain management when she is ready. In my conversation earlier with the patient she reported that she has not taking her opioids for 4 days prior to hospital presentation. She noted that she is expected to see her pain management doctor in 2 days , respectively. At that time also noted that she has run out of her pre-existing supply of opioids. Patient was offered Tylenol and Toradol as an adjuvant medications to help with pain control, she was unwilling to consider. Specifically requested dilaudid in my initial interview, and noted it to be the only medication to be effective in pain relief. There is a concern that patient reported inconsistent dosing, 5 mg q.i.d. initially and then 10 mg q.i.d. to the nurse. - concern for drug seeking behavior
[2018-06-12 05:45] LABS: RBC Urine 0-1/HPF (0-5/HPF); WBC Urine 1-5/HPF (0-5/HPF)
--- NOTE | 2018-06-12 05:45 | PC.NURSE ---
06/12 0545; main concern with patient was uncontrolled pain, pt is stated to be on chronic narcotics and then has been using increased dosage lately due to right arm surgery. Pt was placed on 5mg Oxycodone every 6 hours. After initial dose of 5mg, pt complained of continued uncontrolled pain an hour later. Pt stated that she usually uses 10mg 4 times daily at home. [employer] MAID offshore wind operations manager notified and recommended use of PRN tylenol. Pt was made aware of this and started to cry stating that tylenol wasnt working at home and wouldnt work here and refused to take any adminstration of tylenol. RESTRO[employer]S [employer] MAID notified of this refusal and stated that she was not going to order additional narcotics for the patient as she was concerned that pt was lethargic during their interactions. I stated that I had not seen this lethargy and that pt was restless continuously using the call light to make staff aware of uncontrolled pain. DEFENSIVE DRIVING INSTRUCTOR also confirmed that pt was tearful during bathroom trips and was observed to be uncomfortable and restless. RESTRO[employer]S [employer] MAID came to speak with pt on the use of Tylenol and Toradol for pain control instead of narcotic medications at which the patient was very emotional, used some profanity with the [employer] leading the RE[employer] MAID to leave the room. Pt continued to complain of severe pain, restlessness and anger towards the [employer] for not increasing prn oxycodone to larger dose of 10mg. Pt then refused scheduled toradol this AM. Uses call light appropriately, was observed to be wobbly on feet, standby assist with ambulation. Denies nausea or GI upset at this time.
[2018-06-12 05:46] LABS: Bacteria Urine Occasional (0-1); Culture Indicated Urine Specimen Cultured
[2018-06-12] MEDS: PANTOPRAZOLE 40 MG TABLET PO (09:16)
[2018-06-12] MEDS: ONDANSETRON 4 MG ODT PO (09:16)
[2018-06-12] MEDS: GABAPENTIN 300 MG CAPSULE PO ×3 (09:16→21:15)
--- NOTE | 2018-06-12 09:23 | CM.DANOTE ---
Addendum entered by Sienna Perez LPN 06/12/18 09:28: Pt does confirm she her son Francis Leiva lives in the [facility]. Original Note: Discharge Planning/Care Management DCP: assessment: case received, EMR reviewed and met with pt. Introduced self and role. Pt is a 67 year old female who admitted to care of hospitalist team yesterday evening. PCP: Luis Hernandez: [facility]. Payer: Medicare and Medicaid. Pt notes she had very fragile bones and has had 16 surgeries over the years because of this. P: discuss case this morning in Team Rounds and go from there to assist with d/c issues and options. Anticipate PT/OT involvement when appropriate. Admission Status: currently in review by UR RN so unknown at this time. CM Discharge Assessment Start: 06/12/18 09:17 Freq: Status: Active Protocol: Document 06/12/18 09:18 ITV (Rec: 06/12/18 09:23 ITV [id number]) Discharge Planning Assessment History Provided By Patient Medical Record Prior Living Arrangements House Household Members significant other Comment long time partner Patrick Anna (currently a patient at [facility], per pt.) Independent with ADL's No: altho impacted at this time by casted L arm and R arm surgery/[facility] Is patient alert and oriented? Yes Comment pt says she uses no DME Whiteboard Updated in Patient Room with Yes name and ext. # of Doughnut Glazier Review Status In Process Next Review Type Continued Stay Review
--- NOTE | 2018-06-12 09:56 | PC.NURSE ---
Nurse notified of elevated Blood Pressure
--- NOTE | 2018-06-12 15:56 | P.PN_ITS ---
Subjective Date Patient Seen: 06/12/18 Interval history: Patient reports she is still dizzy when sitting up. She reports 10/10 pain. She is not short of breath. Patient is willing to consider SNF at discharge Exam Vital Signs (past 8 hours): - 06/12/18 08:00 06/12/18 13:00 Temperature 98.0 F 97.9 F Pulse Rate 101 H 113 H Pulse Rate [Orthostatic Lying] 102 H Pulse Rate [Orthostatic Sitting] 109 H Pulse Rate [Orthostatic Standing] 117 H Respiratory Rate 16 18 Blood Pressure 153/102 H Blood Pressure [Orthostatic Lying] 164/86 H Blood Pressure [Orthostatic Sitting] 164/108 H Blood Pressure [Orthostatic Standing] 147/90 H Pulse Oximetry 99 97 Oxygen Delivery Method Room Air Oxygen Flow Rate 0 Narrative Exam Narrative: Ill appearing female Lungs: clear to auscultation CV: RRR nl Sl S2 2/6SEM Abd: soft/ non tender Ext: left arm with a cast, bruising on right arm Lower extremities no edema Objective Labs Result Diagrams: 06/12/18 02:53 06/12/18 02:53 Labs: Laboratory Results - last 24 hr 06/11/18 06/11/18 06/11/18 16:15 16:15 16:15 WBC RBC Hgb Hct MCV MCH MCHC RDW Plt Count Neut % (Auto) Lymph % (Auto) [place] % (Auto) Eos % (Auto) Baso % (Auto) Neut # (Auto) Plt Morphology Comment RBC Morphology Anisocytosis PT 12.6 INR 1.2 APTT 36 Sodium 135 L Potassium 4.4 Chloride 102 Carbon Dioxide 17 L BUN 21 H Creatinine 1.30 H Estimated GFR 41.0 L BUN/Creatinine Ratio 16.2 Glucose 98 Lactate Calcium 9.0 Total Bilirubin 0.4 AST 36 ALT 21 Alkaline Phosphatase 165 H Troponin I Total Protein 7.8 Albumin 4.1 Globulin 3.7 Albumin/Globulin Ratio 1.1 Procalcitonin 11.51 H Urine RBC Urine WBC Urine Bacteria Ur Culture Indicated? Micro UA Comment Blood Type Antibody Screen 06/11/18 06/11/18 06/11/18 16:15 16:15 16:50 WBC 13.6 H RBC 3.33 L Hgb 10.2 L Hct 31.5 L MCV 94.7 MCH 30.5 MCHC 32.3 RDW 16.7 H Plt Count 1182 H* Neut % (Auto) 80.6 H Lymph % (Auto) 13.1 L [place] % (Auto) 5.1 Eos % (Auto) 0.1 L Baso % (Auto) 1.1 Neut # (Auto) 60540 H Plt Morphology Comment 1+ large plts RBC Morphology See below Anisocytosis 1+ H PT INR APTT Sodium Potassium Chloride Carbon Dioxide BUN Creatinine Estimated GFR BUN/Creatinine Ratio Glucose Lactate 0.7 Calcium Total Bilirubin AST ALT Alkaline Phosphatase Troponin I < 0.012 Total Protein Albumin Globulin Albumin/Globulin Ratio Procalcitonin Urine RBC Urine WBC Urine Bacteria Ur Culture Indicated? Micro UA Comment Blood Type Antibody Screen 06/11/18 06/12/18 06/12/18 16:50 02:53 02:53 WBC 12.8 H RBC 3.02 L Hgb 9.2 L Hct 28.4 L MCV 94.2 MCH 30.5 MCHC 32.4 RDW 17.1 H Plt Count 972 H* Neut % (Auto) 63.8 Lymph % (Auto) 27.5 [place] % (Auto) 6.8 Eos % (Auto) 0.6 L Baso % (Auto) 1.3 Neut # (Auto) 8100 H Plt Morphology Comment RBC Morphology Anisocytosis PT INR APTT Sodium 140 Potassium 3.9 Chloride 109 H Carbon Dioxide 20 L BUN 18 H Creatinine 1.20 H Estimated GFR 44.9 L BUN/Creatinine Ratio 15.0 Glucose 113 H Lactate Calcium 8.3 L Total Bilirubin AST ALT Alkaline Phosphatase Troponin I Total Protein Albumin Globulin Albumin/Globulin Ratio Procalcitonin Urine RBC Urine WBC Urine Bacteria Ur Culture Indicated? Micro UA Comment Blood Type O Positive Antibody Screen Negative 06/12/18 06/12/18 02:53 04:55 WBC RBC Hgb Hct MCV MCH MCHC RDW Plt Count Neut % (Auto) Lymph % (Auto) [place] % (Auto) Eos % (Auto) Baso % (Auto) Neut # (Auto) Plt Morphology Comment RBC Morphology Anisocytosis PT INR APTT Sodium Potassium Chloride Carbon Dioxide BUN Creatinine Estimated GFR BUN/Creatinine Ratio Glucose Lactate Calcium Total Bilirubin AST ALT Alkaline Phosphatase Troponin I Total Protein Albumin Globulin Albumin/Globulin Ratio Procalcitonin 7.02 H Urine RBC 0-1/hpf Urine WBC 1-5/hpf Urine Bacteria Occasional (0-1) Ur Culture Indicated? Specimen cultured Micro UA Comment Not Reportable Blood Type Antibody Screen Assessment & Plan (1) Thrombocytosis: Problem details: improving, will continue to follow, Likely needs HEME/ONC referral at discharge Current visit: Yes Status: Acute (2) Tachycardia: Problem details: She is orthostatic, need to continue IV hydration Current visit: Yes Status: Acute (3) Pre-syncope: Problem details: Continue fluids as above Current visit: Yes Status: Acute (4) Dehydration: Current visit: No Status: Acute (5) Acute renal failure: Problem details: Improving with hydration Current visit: Yes Status: Acute (6) Distal radius fracture, left: Problem details: Increase oxycodone to 5-10 mg every 4 hours prn Current visit: No Status: Acute Plan: Assessment/Plan Narrative: SNF at discharge Will order PT/OT Quality VTE Deep Vein Thrombosis/Pulmonary Embolism Present on Admission: No
[2018-06-12] MEDS: ACETAMINOPHEN 325 MG TABLET 975 MG PO (16:01)
[2018-06-12] MEDS: OXYCODONE 5 MG/5 ML ORAL SOLUTION 10 MG PO ×2 (17:07→21:15)
[2018-06-13] MEDS: OXYCODONE 5 MG/5 ML ORAL SOLUTION 10 MG PO ×6 (01:19→21:47)
[2018-06-13] MEDS: ACETAMINOPHEN 325 MG TABLET 975 MG PO ×2 (01:22→08:47)
[2018-06-13 01:31] VITALS: O2SAT 99
[2018-06-13 04:05] VITALS: BP 123/67; PULSE 85; RESP 17; TEMP 36.6; O2SAT 96
--- NOTE | 2018-06-13 06:09 | PC.NURSE ---
06/13 0610; VSS on RA with exception to stated uncontrolled pain. Pt receiving oxycodone 10mg every 4hours upon availability and states that pain is not being relieved with reported 9/10 or 10/10 pain scale ratings at administration. Pt has been seen to be sleeping in between care and is able to hold conversations with out any external distress observed. Bed alarm maintained as patient continues to be unsteady or wobbly with ambulation, usually using furniture or IV pole to keep alignment. Only complaints this shift related to right arm pain, otherwise stable.
[2018-06-13 06:13] LABS: Add Manual Diff / Slide Review NO; Basophils Percent Auto 1.2 % (0-2); Eosinophils Percent Auto 1.9 % (2-4); Hematocrit 26.4 % (36-46); Hemoglobin 8.7 g/dL (12.0-16.0); Lymphocytes Percent Auto 28.2 % (25-40); Mean Corpuscular HGB Conc 32.8 % (30-36); Mean Corpuscular Hemoglobin 30.6 PG (26-34); Mean Corpuscular Volume 93.2 fL (80-100); Neutrophils Absolute Auto 7200 /uL (3000-5900); Neutrophils Percent Auto 60.7 % (50-75); Platelet Count 595 X10^3/uL (150-400); Red Blood Cell Count 2.83 X10^6/uL (4.0-5.2); Red Cell Distribution Width 18.3 % (11.6-14.8); White Blood Cell Count 11.9 X10^3/uL (4.5-11.0)
[2018-06-13 06:22] LABS: Blood Urea Nitrogen 11 mg/dL (7-17); Carbon Dioxide 21 mmol/L (22-32); Chloride 107 mmol/L (98-107); Estimated Glomerular Filt Rate 55.5 mL/min (>60); Glucose 100 mg/dL (80-110); HEMOLYSIS < 15 (0-50); Potassium 3.7 mmol/L (3.4-5.1); Sodium 137 mmol/L (137-145)
[2018-06-13] MEDS: PANTOPRAZOLE 40 MG TABLET PO (07:37)
[2018-06-13] MEDS: SODIUM CHLORIDE 0.9% 1,000 ML 75 ML IV (07:39)
[2018-06-13 08:00] VITALS: BP 137/77; PULSE 87; RESP 16; TEMP 36.8; O2SAT 97
[2018-06-13] MEDS: GABAPENTIN 300 MG CAPSULE PO ×3 (08:48→21:47)
--- NOTE | 2018-06-13 09:46 | PT.IIE ---
Addendum entered and electronically signed by Maile Rose PT 06/13/18 13:40: this is to certify that i have reviewed this documentation and POC Original Note: Current Diagnoses Essential (hemorrhagic) thrombocythemia (06/11/18) Anemia, unspecified (06/11/18) Dehydration (06/11/18) Acute kidney failure, unspecified (06/11/18) Tachycardia, unspecified (06/11/18) Syncope and collapse (06/11/18) Unspecified fracture of shaft of humerus, unspecified arm, initial encounter for closed fracture (06/11/18) Unspecified fracture of the lower end of left radius, initial encounter for closed fracture (06/11/18) Medical History (Last Reviewed 06/12/18 @ 00:46 by NICOLE Albrecht) Chronic pain (Acute) GI bleeding (Acute) Physical Therapy Inpatient Evaluation/Re-Eval M1 PT/OT-IP Prior Functional Status Start: 06/13/18 11:16 Freq: NEEDED Status: Active Protocol: Document 06/13/18 09:46 (Rec: 06/13/18 12:47 [id number]) Medical Review Prior Functional Status Medical History Reviewed Yes Communication No deficits noted. Mobility and Gait Previously ambulated without AD in/out doors up to a block, but would always go outside with her S.O. just in case . She notes for rough terrain or stairs needing to hold onto S.O.'s arm. She had to use a stool to get in/out of her very high bed. Activities of Daily Living and IADL's Required S.O. to assist with bathing. Toileting, eating and dressing were stated as indep. She relied on S.O. for all shopping and cooking. Prior Functional Level (Other details) She reports 3 falls in just the last month. Social History Household Members significant other Living Arrangements House Number of Floors (Floors) One Floor Number of Stairs To Enter/Railing? 2 steps no rail. Home Environment Standard Height Toilet Tub/Shower Home Equipment Tub Transfer [employer] Professional Held Shower Additional Social History Comment Pt lives with S.O. who is currently at [facility] for a leg injury after falling off a roof. He is the person she relies on for stairs. She has no other assist availiable to her. She also owns a suction grab bar for the shower, but was unable to install it. M2 PT-IP Current Condition Start: 06/13/18 11:16 Freq: NEEDED Status: Active Protocol: Document 06/13/18 09:46 (Rec: 06/13/18 12:47 [id number]) Physical Therapy Current Condition Current Condition Evaluation Date 06/13/18 Treatment Diagnosis dizziness; difficulty walking Onset Date 06/11/2018 Precautions Brace Pt reports she had R elbow replacement and a f/u surgery she is unable to describe at [facility]. She states she was supposed to be using a R sling all the time and was doing so before this admit and is not allowed to move or bear weight her R arm. At this session we found her without sling, pt states she left it at home. We fitted her for a R sling this session. Hard cast on L forearm/fingers 3-5 after fx of 5th digit. Pt reports she is allowed to put weight into L hand. Other Precautions Monitor HR. Pt is tachycardic . Weight Bearing Status Weight Bearing Status Non-Weight Bearing Allowed Weight Bearing Amount (enter % Recommending non weight or #) (%) bearing B UE until futher clarification is obtained regarding pt fractures and post-op precuations. M3 PT-IP Subjective Start: 06/13/18 11:16 Freq: NEEDED Status: Active Protocol: Document 06/13/18 09:46 (Rec: 06/13/18 12:04 [id number]) Subjective Physical Therapy Visit Type Type Initial Evaluation Visit Start Time 09:46 Visit Stop Time 10:10 Total Visit Minutes 24 Number of LIFE COACH Visits 0 Physical Therapy Visit Comments Patient Comments Pt is agreeable to work with PT today. Patient Goals Pt plans to return home at discharge. Therapy Pain Assessment Pain When Pain Assessed During Mobility Pain Present Pain Present Pain Reported Location Back Intensity 8 Scale Used Numeric (1 - 10) Right arm Intensity 8 Scale Used Reported 8/10 at rest as well as with mobility. M4 PT-IP Mobility and Gait Start: 06/13/18 11:16 Freq: NEEDED Status: Active Protocol: Document 06/13/18 09:46 (Rec: 06/13/18 12:04 [id number]) PT-Bed Mobility Assessment Supine to Sit Supine to Sit Standby Assistance Sit to Supine Sit to Supine Standby Assistance Scooting Scooting to Edge of Bed Standby Assistance PT-Transfer Assessment Sit to and From Stand Sit to and from Stand Contact Guard Assistance Equipment Transfer Assistive Device Gait Belt Orthotic/Prosthetic Devices or Brace: Yes Transfers Transfer Destination Chair Transfer Technique Stand Step Pivot Transfer Ability Level of Assist Contact Guard Assistance Comments Mobility Comments Pt denies symptoms of dizziness. She was found at supine/HOB elevated resting. HR flucuates significantly; ranging 88-104 resting, 02 sat 98%. Sit <> supine SBA. Pt able to scoot to EOB SBA and use of L elbow and cues to pivot on her buttocks. Transfer to recliner performed CGA for sit <> stand and step -pivot-step. HR continues to fluctuate significantly ranging 88-124 with mobility. Pt continues to deny dizziness. Gait Assessment Gait Gait Assistance Required: Contact Guard Assist Distance (Feet) 7 Able to Maintain Weight Bearing Status Yes During Gait Assistive Devices Assistive Device None Gait Belt Orthotic/Prosthetic Devices or Brace: Yes Gait Deviations General Gait Pattern Decreased Stride Length Decreased Feet Clearance Narrow Based Gait Factors Limiting Gait Function Factors Limiting Gait Function Decreased Activity Tolerance Decreased Sensation Decreased Strength Pain Poor Balance Poor Safety Awareness Comments Gait Comments Pt ambulated 7 ft. CGA for balance and takes very small, narrow steps. She denies dizziness but is (+) for LOBx1 but able to recover without assistance. HR ranges 90-132 during ambulation. PT-Balance Assessment Sitting Balance and Reactions Static Sitting Balance Ability Good Dynamic Sitting Balance Ability Good Standing Balance and Reactions Static Standing Balance Ability Fair Dynamic Standing Balance Ability Fair Device Used gait belt only. M5 PT-IP Objective Assessments Start: 06/13/18 11:16 Freq: NEEDED Status: Active Protocol: Document 06/13/18 09:46 (Rec: 06/13/18 12:04 [id number]) Orientation Orientation/Cognition Level of Alertness Alert Orientation Name Birthday Place Situation Language Function Ability No Deficits Noted Safety Awareness Decreased Safety Awareness Gross Range of Motion Upper Extremity ROM Assessment Bilaterally Impaired Lower Extremity ROM Assessment Within Functional Limits Strength Lower Extremity Strength Assessment Bilaterally Impaired Hip L 4/5 ; R 4+/5 Knee L 3+/5; R 4/5 Ankle L 4/5; R 3/5 Sensation Assessment Sensation Gross Sensation Left LE Impaired Light Touch Impaired Sensation Description Numbness Comments Sensation Comments Pt had loss of sensation on plantar surface of L foot. Intact on R foot dorsum/ plantar surface. M6 PT-IP Treatment Start: 06/13/18 11:16 Freq: NEEDED Status: Active Protocol: Document 06/13/18 09:46 (Rec: 06/13/18 12:04 [id number]) Physical Therapy Treatment Education Education Provided Precautions Weight Bearing Status Safety Brace Education Donning Equipment Issued Equipment Type and Company R shoulder sling M7 PT-IP Assessment and Plan Start: 06/13/18 11:16 Freq: NEEDED Status: Active Protocol: Document 06/13/18 09:46 (Rec: 06/13/18 12:04 [id number]) PT Summary Assessment and Plan Potential Rehabilitation Potential Good Status of Condition at Evaluation Evolving Summary Impairments Pain ROM Strength Balance Sensation Bed Mobility Transfers Gait Activity Tolerance Progress Towards Goals Slow Progress due to Pain Slow Progress due to Medical Issues Slow Progress due to Activity Tolerance Assessment Summary Pt admitted for dizziness presenting with difficulty with gait. She also presents with BUE impairments; L UE is in a cast s/p finger fracture and RUE is s/p elbow surgery. She was able to transfer and ambulate with CGA this session . HR fluctuated significantly , ranging 88-132 during mobilization including ambulation. She denied dizziness this session. Recommendation at this time is for SNF due to patient's impaired mobility, high fall risk and lack of assist at home. Goals Bed Mobility Goal Independent Transfer Goal Standby Assistance Gait Goal Standby Assistance Gait Distance 150 Other Goals up/down 2 steps CGA no rails. Days to Meet Goals 5 Frequency of Treatment Frequency Of Treatment Once a Day Treatment Plan Physical Therapy Treatment Plan Bed Mobility Training Transfer Training Gait Training Therapeutic Exercise Balance Retraining Discharge Planning Neuromuscular Re-ed Coordination Retraining Recommendations To Nursing Amount of Assist Needed 1 Person Assist Discharge Recommendations PT Discharge Recommendations SNF Rehab
--- NOTE | 2018-06-13 11:12 | CM.DPNOTE ---
DCP continued: Case discussed in Team Rounds with Dr. Kolb, taking over for Dr. Logan today. After Rounds JANET Rodriguez offered to take over this case and gratefully handed case over to her at that time. CM team aware.
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
[2018-06-13] MEDS: METOPROLOL IR 25 MG TABLET PO ×2 (13:02→21:47)
--- NOTE | 2018-06-13 13:14 | CM.DPC ---
referral faxed to [facility]
[2018-06-13] MEDS: INFLUENZA VACCINE 0.5 ML SYRINGE IM (13:40)
[2018-06-13 15:50] VITALS: BP 117/77; PULSE 74; RESP 18; TEMP 36.6; O2SAT 98
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
[2018-06-13] MEDS: ONDANSETRON 4 MG ODT PO (17:40)
[2018-06-13 20:40] VITALS: BP 157/95; PULSE 91; RESP 17; TEMP 37.1; O2SAT 98
[2018-06-14] VITALS: BP 130/71; BP 138/68; BP 156/133; PULSE 77; RESP 18; TEMP 37; O2SAT 97
[2018-06-14] MEDS: OXYCODONE 5 MG/5 ML ORAL SOLUTION 10 MG PO (02:05)
[2018-06-14] MEDS: ACETAMINOPHEN 325 MG TABLET 975 MG PO ×2 (03:19→10:05)
[2018-06-14 05:12] VITALS: BP 132/71; PULSE 72; RESP 18; TEMP 36.6; O2SAT 98
[2018-06-14 06:34] LABS: Iron 35 ug/dL (37-170)
[2018-06-14] MEDS: PANTOPRAZOLE 40 MG TABLET PO (06:47)
[2018-06-14] MEDS: OXYCODONE IR 10 MG TABLET PO (06:47)
--- NOTE | 2018-06-14 06:56 | PC.NURSE ---
NOC Note: IV was infiltrated at start of shift, NICOLE Baker gave orders to dc IVF and hold off on new IV start until it is known if the patient will remain over the weekend. If patient discharges today there is no reason to restart but if not the a new IV will need to be placed. Patient used all available oxycodone elixir and NICOLE gave new for oxycodone IR 10mg tab po Q8hr. Pt reports that she bumped her right elbow during the night and now she has burning sensation in the center of the elbow.
[2018-06-14 07:25] LABS: Vitamin B12 > 1000 pg/mL (239-931)
[2018-06-14 07:49] VITALS: BP 133/71; PULSE 69; RESP 17; TEMP 36.6; O2SAT 97
--- NOTE | 2018-06-14 08:44 | PM.PN.1 ---
Subjective Interval history: Patient has no new complaints no new problems. She denies chest pain shortness of breath nausea vomiting, abdominal pain, palpitation Exam Vital Signs (past 8 hours): - 06/14/18 05:12 06/14/18 07:49 Temperature 97.9 F 97.9 F Pulse Rate 72 69 Respiratory Rate 18 17 Blood Pressure 132/71 133/71 Pulse Oximetry 98 97 Oxygen Delivery Method Room Air Oxygen Flow Rate 0 Narrative Exam Narrative: General: NAD HEENT: Normocephalic atraumatic extraocular movement was intact pupils are equal round reactive to light from dye were not visualized clear were clear oropharynx was clear Neck: Supple without thyromegaly bruits or jugular venous distention Respiratory: Clear to auscultation Cardiovascular: Regular rhythm S1-S2 was normal there are no lifts heaves rubs murmurs gallops present Gastrointestinal: Abdomen is benign bowel sounds active Extremities left hand and arm in cast. Long vertical surgical scar of the right arm from elbow to shoulder with sutures in place as well as Steri-Strips. There is no change of swelling edema erythema. Neurologic grossly physiologic Psychiatric mood and affect were normal Objective Labs Result Diagrams: 06/13/18 05:36 06/13/18 05:36 Labs: Laboratory Results - last 24 hr 06/14/18 06/14/18 05:15 05:15 Iron 35 L Vitamin B12 > 1000 H Assessment & Plan Plan: Assessment/Plan Narrative: 1. Generalized weakness PT OT working with patient. 2. Hypovolemia This is felt secondary to decreased p.o. intake. This appears to be of corrected with IV fluids. 3. Thrombocytosis This is mentioned to be probable reactive and has been elevated chronically. There is no evidence of infection or significant I am anemia. There is no evidence of any non infectious etiology This is significantly improved since admission her platelet count today is 595 and on admission it was 1182. 4. Anemia This is anemia of chronic disease. Her has dried to 1.5 g since admission from 10.2-8.7 yesterday. It is felt this is related to fluid resuscitation. 5. Acute renal failure. This is improved with fluid resuscitation 6. Opioid dependence. She is followed by pain medicine. She is on a pain management contract. 7.. Urine culture positive for Staph low coccus aureus As this is a [id number] some likely that it is a urinary tract infection. Sensitivities are to follow She has remained afebrile 8. Tachycardia This is resolved heart rates have been in 80s-70s Quality VTE Deep Vein Thrombosis/Pulmonary Embolism Present on Admission: No
--- NOTE | 2018-06-14 08:47 | OT.IP.EVAL ---
Current Diagnoses Essential (hemorrhagic) thrombocythemia (06/11/18) Anemia, unspecified (06/11/18) Dehydration (06/11/18) Acute kidney failure, unspecified (06/11/18) Tachycardia, unspecified (06/11/18) Syncope and collapse (06/11/18) Unspecified fracture of shaft of humerus, unspecified arm, initial encounter for closed fracture (06/11/18) Unspecified fracture of the lower end of left radius, initial encounter for closed fracture (06/11/18) Past Medical History (Last Reviewed 06/12/18 @ 00:46 by NICOLE Albrecht) Chronic pain (Acute) GI bleeding (Acute) Occupational Therapy Inpatient Evaluation/Re-Eval M1 PT/OT-IP Prior Functional Status Start: 06/13/18 11:16 Freq: NEEDED Status: Active Protocol: Document 06/13/18 09:46 (Rec: 06/13/18 12:47 [id number]) Medical Review Prior Functional Status Medical History Reviewed Yes Communication No deficits noted. Mobility and Gait Previously ambulated without AD in/out doors up to a block, but would always go outside with her S.O. just in case . She notes for rough terrain or stairs needing to hold onto S.O.'s arm. She had to use a stool to get in/out of her very high bed. Activities of Daily Living and IADL's Required S.O. to assist with bathing. Toileting, eating and dressing were stated as indep. She relied on S.O. for all shopping and cooking. Prior Functional Level (Other details) She reports 3 falls in just the last month. Social History Household Members significant other Living Arrangements House Number of Floors (Floors) One Floor Number of Stairs To Enter/Railing? 2 steps no rail. Home Environment Standard Height Toilet Tub/Shower Home Equipment Tub Transfer Asphalt Tamping Machine Operator Held Shower Additional Social History Comment Pt lives with S.O. who is currently at [facility] for a leg injury after falling off a roof. He is the person she relies on for stairs. She has no other assist available to her. She also owns a suction grab bar for the shower, but was unable to install it. M1 PT/OT-IP Prior Functional Status Start: 06/14/18 08:16 Freq: NEEDED Status: Active Protocol: Document 06/13/18 13:05 [facility] (Rec: 06/14/18 08:46 [facility] [id number]) Medical Review Prior Functional Status Medical History Reviewed Yes Diet/Fluid Consistency Regular Thin Liquids Communication No deficits noted. Mobility and Gait Previously ambulated without AD in/out doors up to a block, but would always go outside with her S.O. just in case . She notes for rough terrain or stairs needing to hold onto S.O.'s arm. She had to use a stool to get in/out of her very high bed. Activities of Daily Living and IADL's Required S.O. to assist with bathing. Toileting, eating and dressing were stated as indep. She relied on S.O. for all shopping and cooking. Pt states to OT that she would use her right arm to assist with ADL's even though she knew that she was not suppose to use her right arm. Prior Functional Level (Other details) She reports 3 falls in just the last month. Social History Household Members significant other Living Arrangements House Number of Floors (Floors) One Floor Number of Stairs To Enter/Railing? 2 steps no rail. Home Environment Standard Height Toilet Tub/Shower Home Equipment Tub Transfer Asphalt Tamping Machine Operator Held Shower Additional Social History Comment Pt lives with Kamryn who is currently at [facility] for a leg injury after falling off a roof. He is the person she relies on for stairs. She has no other assist available to her. She also owns a suction grab bar for the shower, but was unable to install it. M2 OT-IP Current Condition Start: 06/14/18 08:16 Freq: Status: Active Protocol: Document 06/13/18 13:05 [facility] (Rec: 06/14/18 08:46 [facility] [id number]) Occupational Therapy Current Condition Current Condition Evaluation Date 06/13/18 Treatment Diagnosis syncope, fall history, weakness Diagnosis Onset Date 06/11/18 Post Operative Precautions Other Precautions Monitor HR. Pt is tachycardic . Weight Bearing Status Weight Bearing Status Non-Weight Bearing Allowed Weight Bearing Amount (enter % Recommending non weight or #) (%) bearing B UE until futher clarification is obtained regarding pt fractures and post-op precautions. M3 OT- IP Subjective and Pain Start: 06/14/18 08:16 Freq: Status: Active Protocol: Document 06/13/18 13:05 [facility] (Rec: 06/14/18 08:46 [facility] [id number]) OT- Subjective Occupational Therapy Visit Type Type Initial Evaluation Visit Start Time 13:05 Visit Stop Time 13:35 Total Visit Minutes 30 Occupational Therapy Visit Comments Patient Comments Pt agreeable to get up. Patient/Caregiver Goals Pt would like to go to skilled rehab when medically stable as significant other in the hospital and does not have anyone to assist with her care . OT Pain Assessment Pain When Pain Assessed At Rest Pain Present Pain Present Pain Reported Location Back Intensity 9 Scale Used Numeric (1 - 10) Right arm Intensity 9 Scale Used Numeric (1 - 10) M4 OT- IP ADL's Start: 06/14/18 08:16 Freq: Status: Active Protocol: Document 06/13/18 13:05 [facility] (Rec: 06/14/18 08:46 [facility] [id number]) OT [id number] Comments OT Self-Feeding Comments Pt needing assist for cut food , set-up, and would benefit from plastic utensils and cups with handles and straws. OT ADL-Dressing General Eval Areas Needing Assistance Socks Comments OT Dressing Comments Pt mostly dependent for all dressing needs as only able to use left thumb and index and thumb, right hand in a sling. M6 OT- IP Functional Cognition Start: 06/14/18 08:16 Freq: Status: Active Protocol: Document 06/13/18 13:05 [facility] (Rec: 06/14/18 08:46 [facility] [email or web address]) Cognitive Factors Limiting Selfcare Function Cognitive Ability Level of Alertness Alert Patient Orientation Name Place Situation Attention Span Ability Capable of Focused Attention Capable of Sustained Attention Ability to Follow Commands Able to Follow One Step Commands Memory Description Short Term Impaired Working Impaired Safety Awareness Decreased Recall of Precautions Underestimates Need for Assistance Problem Solving Ability Needs Assist to Identify Solutions Executive Function Ability Unable to Make Plans Unable to Organize Plans Unable to Remember Details Cognitive Comments Cognitive Assessment Comments Pt does not recall specific details of her BUE injuries and precautions. Pt admits however has been using her right arm even though she states that [email or web address] did not allow her to use her right arm and it was in a sling. Pt states, I left all the paperwork from [facility] on the table at home and have not had a chance to look at it. OT- Vision and Hearing OT- Hearing Assessment OT- Hearing Assessment WFL M7 OT- IP Mobility and Balance Start: 06/14/18 08:16 Freq: Status: Active Protocol: Document 06/13/18 13:05 [facility] (Rec: 06/14/18 08:46 [facility] [email or web address]) OT- Bed Mobility Assessment Rolling Level of Assistance Standby Assistance Supine to Sit Supine to Sit Assist Standby Assistance Sit to Supine Sit to Supine Assist Standby Assistance OT-Transfer Assessment Sit to and From Stand Sit to and from Stand Contact Guard Assistance Comments Mobility Comments With HOB up , pt able to get to the edge of the bed. Pt having to use left forearm to help right herself up from steadying herself up from her right leg. OT- Gait Assessment Gait Gait Assistance Required: Contact Guard Assist Assistive Devices Assistive Device Gait Belt Comments Gait Ability Comments Pt needing CGA for balance while taking a few steps in the room. OT- Balance Assessment Sitting Balance and Reactions Static Sitting Balance Ability Good Dynamic Sitting Balance Ability Fair Standing Balance and Reactions Static Standing Balance Ability Fair Dynamic Standing Balance Ability Poor M8 OT- IP Objective Assessments Start: 06/14/18 08:16 Freq: Status: Active Protocol: Document 06/13/18 13:05 [facility] (Rec: 06/14/18 08:46 [facility] [id number]) OT Gross Range of Motion Upper Extremity Range of Motion ROM Impairments RUE NT due to in sling. LUE in cast with only index and thumb exposed. Pt able to move her LUE otherwise at the shoulder and elbow. OT Strength Comments Strength Comments NT due to precautions. M9 OT- IP Assessment and Plan Start: 06/14/18 08:16 Freq: Status: Active Protocol: Document 06/13/18 13:05 [facility] (Rec: 06/14/18 08:46 [facility] [id number]) OT Summary Assessment and Plan Potential Rehabilitation Potential Fair Analytic Complexity at Evaluation Moderate Summary OT Impairments Pain Range of Motion Strength Balance Coordination Functional Cognition Functional Mobility Self-Feeding Grooming Dressing Toileting Bathing Toilet Transfers Shower Transfers Progress Towards Goals Slow Progress due to Pain Slow Progress due to Medical Issues Slow Progress due to Activity Tolerance Slow Progress due to Cognition Assessment Summary Pt MOD complexity main barriers are steps, now needing extensive assist for all needs due to limited use of BUE, decreased safety awareness and activity tolerance, and will need extensive assist for all ADL needs. Pt's significant other in the hospital and therefore does not has any assist. Pt will benefit from skilled rehab. Goals Self-Feeding Goal Minimal Assistance Grooming Goal Standby Assistance Dressing Goal Moderate Assistance Toileting Goal Minimal Assistance Bathing Goal Moderate Assistance Toilet Transfer Goal Minimal Assistance Shower Transfer Goal Moderate Assistance Patient/Caregiver Education Goal Demonstrate Post-Op Precautions Days to Meet Goals 7 Frequency of Treatment Frequency Of Treatment Once a Day Treatment Plan OT Treatment Plan ADL Training Functional Cognition Training Functional Mobility Patient/Family Education Discharge Planning Other Treatment Recommendations and Next Dressing and eating for needs. Treatment Focus Discharge Recommendations OT Discharge Recommendations SNF Rehab
[2018-06-14] MEDS: METOPROLOL IR 25 MG TABLET PO (10:05)
[2018-06-14] MEDS: GABAPENTIN 300 MG CAPSULE PO (10:05)
--- NOTE | 2018-06-14 10:16 | PM.DS.1 ---
History of Present Illness Chief complaint: Dizziness x3 days Discharge Providers Date of admission: 06/11/18 18:42 DATE OF DISCHARGE 06/14/2018 Consults: 06/11/18 20:19 Consult to Pastoral Services Routine Comment: emotional support 06/12/18 15:57 Consult to Occupational Therapy Evaluate & Treat Comment: Physician Instructions: Evaluate and treat Consult to Physical Therapy Evaluate & Treat Comment: Physician Instructions: Evaluate and Treat Discharge provider: Hardeep Sawyer MD Discharge Date: 06/14/18 Summary Discharge Diagnosis: 1. Generalized weakness 2. Hypovolemia, RESOLVED 3. Thrombocytosis, IMPROVED 4. Anemia 5. Acute renal failure. RESOLVED 7.. Urine culture positive for MRSA 8. Tachycardia, RESOLVED MR#: [id number] : 1950 Acct:[id number] Age/Sex: 67 / F Date of Service: 06/11/18 Provider: Hardeep Sawyer MD Subjective Interval history: Patient has no new complaints no new problems. She denies chest pain shortness of breath nausea vomiting, abdominal pain, palpitation Exam Vital Signs (past 8 hours): - 06/14/18 05:12 06/14/18 07:49 Temperature 97.9 F 97.9 F Pulse Rate 72 69 Respiratory Rate 18 17 Blood Pressure 132/71 133/71 Pulse Oximetry 98 97 Oxygen Delivery Method Room Air Oxygen Flow Rate 0 Narrative Exam Narrative: General: NAD HEENT: Normocephalic atraumatic extraocular movement was intact pupils are equal round reactive to light from dye were not visualized clear were clear oropharynx was clear Neck: Supple without thyromegaly bruits or jugular venous distention Respiratory: Clear to auscultation Cardiovascular: Regular rhythm S1-S2 was normal there are no lifts heaves rubs murmurs gallops present Gastrointestinal: Abdomen is benign bowel sounds active Extremities left hand and arm in cast. Long vertical surgical scar of the right arm from elbow to shoulder with sutures in place as well as Steri-Strips. There is no change of swelling edema erythema. Neurologic grossly physiologic Psychiatric mood and affect were normal Objective Labs Result Diagrams: 06/13/18 05:36 document embedded image 06/13/18 05:36 document embedded image Labs: Laboratory Results - last 24 hr 06/14/18 06/14/18 05:15 05:15 Iron 35 L Vitamin B12 > 1000 H 1. Generalized weakness 2. Hypovolemia, resolved 3. Thrombocytosis, improved 4. Anemia 5. Acute renal failure, resolved 6. Opioid dependence. She is followed by pain medicine. She is on a pain management contract. 7.. Questionable UTI 8. Tachycardia, resolved Hospital Course: 1. Generalized weakness PATIENT CONTINUES WITH WEAKNESS AND REQUIRES ONGOING PT. THEREFORE SHE IS BEING DISCHARGED TO CARE TO WOULD BE 2. Hypovolemia This is felt secondary to decreased p.o. intake. This has resolved as her renal function has normalized. Her creatinine is improved from 1.30 on admission to 1.00 yesterday 3. Thrombocytosis There is no evidence of infection or significant iron deficiency anemia. There is no evidence of any non infectious etiology This is significantly improved since admission and her platelet count today is 595 and on admission it was 1182. 4. Anemia This is anemia of chronic disease. Her has dried to 1.5 g since admission from 10.2-8.7 yesterday. It is felt delusional and related to fluid resuscitation. 5. Acute renal failure. This has resolved with IV hydration. See comments under hypovolemia above. Renal function is normal with creatinine of 1.00 on 06/13/2018 6. Opioid dependence. She is followed by pain medicine. She is on a pain management contract. 7.. Urine culture positive for MRSA There were only 30-40,000 colonies and therefore unlikely that it is a urinary tract infection. She remains afebrile with a white blood cell count that has improved from 13.6-11.9 and therefore is not being discharged on any antibiotics 8. Tachycardia This is resolved heart rates have been in 80s-70s MR#: [id number] : 1950 Acct:[id number] Age/Sex: 67 / F Date of Service: 06/11/18 Provider: Hardeep Sawyer MD Subjective Interval history: Patient has no new complaints no new problems. She denies chest pain shortness of breath nausea vomiting, abdominal pain, palpitation Exam Vital Signs (past 8 hours): - 06/14/18 05:12 06/14/18 07:49 Temperature 97.9 F 97.9 F Pulse Rate 72 69 Respiratory Rate 18 17 Blood Pressure 132/71 133/71 Pulse Oximetry 98 97 Oxygen Delivery Method Room Air Oxygen Flow Rate 0 Narrative Exam Narrative: General: NAD HEENT: Normocephalic atraumatic extraocular movement was intact pupils are equal round reactive to light from dye were not visualized clear were clear oropharynx was clear Neck: Supple without thyromegaly bruits or jugular venous distention Respiratory: Clear to auscultation Cardiovascular: Regular rhythm S1-S2 was normal there are no lifts heaves rubs murmurs gallops present Gastrointestinal: Abdomen is benign bowel sounds active Extremities left hand and arm in cast. Long vertical surgical scar of the right arm from elbow to shoulder with sutures in place as well as Steri-Strips. There is no change of swelling edema erythema. Neurologic grossly physiologic Psychiatric mood and affect were normal Objective Labs Result Diagrams: 06/13/18 05:36 document embedded image 06/13/18 05:36 document embedded image Labs: Laboratory Results - last 24 hr 06/14/18 06/14/18 05:15 05:15 Iron 35 L Vitamin B12 > 1000 H 1. Generalized weakness She continues to be weak but this is improved somewhat with fluid resuscitation and treatment of her hypotension. Ongoing PT OT is required because of her debilitation. Therefore she has been discharged to [facility] 2. Hypovolemia This is felt secondary to decreased p.o. intake. This appears to be of corrected with IV fluids. Her renal functions normalized with a BUN of 11 and a creatinine of 1.00 on 06/13/2018 3. Thrombocytosis This is mentioned to be probable reactive. There is no evidence of infection or significant I am anemia. There is no evidence of any non infectious etiology This is significantly improved since admission her platelet count today is 595 and on admission it was 1182. 4. Anemia This is anemia of chronic disease. Her has dried to 1.5 g since admission from 10.2-8.7 yesterday. It is felt this is related to fluid resuscitation. 5. Acute renal failure. This is improved with fluid resuscitation see comment under hypovolemia above 6. Opioid dependence. She is followed by pain medicine. She is on a pain management contract. She is being discharged on oxycodone 10 mg q.8 hours as needed pain 7.. Urine culture positive for MRSA As this is a 30-40,000 some unlikely that it is a urinary tract infection. She has not been placed on any antibiotics. She remains afebrile and her white count has normalized 8. Tachycardia This is resolved heart rates have been in 80s-70s Status at Discharge Cognitive/behavioral status at discharge: Cognitively intact Overall status at discharge: patient is not back to baseline Time Spent with Patient Greater than 30 minutes Exam Vital Signs (past 8 hours): - 06/14/18 05:12 06/14/18 07:49 Temperature 97.9 F 97.9 F Pulse Rate 72 69 Respiratory Rate 18 17 Blood Pressure 132/71 133/71 Pulse Oximetry 98 97 Oxygen Delivery Method Room Air Oxygen Flow Rate 0 Narrative Exam Narrative: UNCHANGED FROM THIS MORNING Objective Labs Result Diagrams: 06/13/18 05:36 06/13/18 05:36 Labs: Laboratory Results - last 24 hr 06/14/18 06/14/18 05:15 05:15 Iron 35 L Vitamin B12 > 1000 H Discharge Plan Discharge Plan Transfer to: [facility] Transportation: Ambulance I certify the postop hospital [facility] care is medically necessary on a continuing basis for any conditions for which he/ she received care during this hospitalization.: Yes The receiving facility has agreed to accept transfer and provide medical treatment.: Yes Discharge Med Rec/Prescriptions Prescriptions: New ondansetron 4 mg Tablet,Disintegrating 4 mg PO Q6HR PRN (Reason: Nausea) Qty: 30 RF: 0 oxycodone 5 mg Tablet 10 mg PO Q3HR PRN (Reason: Pain, Severe (7-10)) Qty: 30 RF: 0 Continue metoprolol tartrate 25 MG tablet 25 mg PO BID Qty: 0 RF: 0 omeprazole 20 mg capsule,delayed release(DR/EC) 20 mg PO BID RF: 0 carisoprodol 350 mg tablet 1 tab PO DAILY RF: 0 alendronate 70 mg tablet 1 tab PO QWEEK RF: 0 gabapentin 300 mg capsule 1 tab PO TID RF: 0 polyethylene glycol 3350 17 gram/dose powder 1 packet PO DAILY PRN (Reason: Constipation) RF: 0 Discontinued oxycodone 5 mg tablet 5 mg PO QID RF: 0 pantoprazole 40 mg tablet,delayed release (DR/EC) 1 tab PO BID RF: 0 hydromorphone 4 mg tablet 1 tab PO QID PRN (Reason: Pain, Severe) RF: 0 Discharge Orders: Discharge (Order); Ordered 06/14/18 Ordered By: Hardeep Sawyer Provider Discharge Instructions Diet: Diet as Tolerated Food texture: Regular Special Rehabilitation Services Reason for rehabilitation: Recovery r/t decondition Rehab type: Physical therapy and Occupational therapy Discharge Data Attending Provider: Yuliana Logan Admit Date/Time: 06/11/18 18:42 Quality VTE Deep Vein Thrombosis/Pulmonary Embolism Present on Admission: No
[2018-06-14] MEDS: OXYCODONE IR 5 MG TABLET 10 MG PO ×2 (10:42→13:48)
[2018-06-14 11:33] VITALS: BP 137/97; PULSE 75; RESP 16; TEMP 36.6; O2SAT 100
--- NOTE | 2018-06-14 12:18 | PT.IPTN ---
Current Diagnoses Essential (hemorrhagic) thrombocythemia (06/11/18) Anemia, unspecified (06/11/18) Dehydration (06/11/18) Acute kidney failure, unspecified (06/11/18) Tachycardia, unspecified (06/11/18) Syncope and collapse (06/11/18) Unspecified fracture of shaft of humerus, unspecified arm, initial encounter for closed fracture (06/11/18) Unspecified fracture of the lower end of left radius, initial encounter for closed fracture (06/11/18) Physical Therapy Treatment Note M2 PT-IP Current Condition Start: 06/13/18 11:16 Freq: NEEDED Status: Active Protocol: Document 06/13/18 09:46 (Rec: 06/13/18 12:47 [id number]) Physical Therapy Current Condition Current Condition Evaluation Date 06/13/18 Treatment Diagnosis dizziness; difficulty walking Onset Date 06/11/2018 Precautions Brace Pt reports she had R elbow replacement and a f/u surgery she is unable to describe at [facility]. She states she was supposed to be using a R sling all the time and was doing so before this admit and is not allowed to move or bear weight her R arm. At this session we found her without sling, pt states she left it at home. We fitted her for a R sling this session. Hard cast on L forearm/fingers 3-5 after fx of 5th digit. Pt reports she is allowed to put weight into L hand. Other Precautions Monitor HR. Pt is tachycardic . Weight Bearing Status Weight Bearing Status Non-Weight Bearing Allowed Weight Bearing Amount (enter % Recommending non weight or #) (%) bearing B UE until futher clarification is obtained regarding pt fractures and post-op precuations. M3 PT-IP Subjective Start: 06/13/18 11:16 Freq: NEEDED Status: Active Protocol: Document 06/14/18 12:14 AB (Rec: 06/14/18 12:18 [facility] [email or web address]) Subjective Physical Therapy Visit Type Type Patient Refusal Notes Checked on pt and pt refused PT. stated that the nurse is checking with the doctor about her pain meds and does not want to do PT at this time.
--- NOTE | 2018-06-14 13:35 | CM.DANOTE ---
DCP/continued: Received verbal referral from MD in AM rounds that patient medically stable for d/c to SNF today. Reviewed notes and per previous CM note current plan is for patient to go to [facility]. Placed call to Emma with admit at [facility] and she is agreeable to accept. PASRR completed, and orders received and faxed. Met with patient to confirm plan. Patient reports that she is aware and agreeable. Patient reports that she thought [facility] was [place] CLOSING MANAGER provided patient with [facility] brochure which includes address and phone number. Patient continues to be in agreement to go to [facility] because it is the closest facility to her residence. Patient requesting that CLOSING MANAGER attempt to call patient's son/Francis with update. CLOSING MANAGER attempted in patient's room and no answer or ability to leave . Therefore, patient left with her daughter. RN updated and patient scheduled to be picked up at approximately 2:30pm. P: [facility] today. JANET Cheek Discharge Planning/Care Management CM Discharge Assessment Start: 06/12/18 09:17 Freq: Status: Active Protocol: Document 06/12/18 09:18 ITV (Rec: 06/12/18 09:23 ITV [id number]) Discharge Planning Assessment History Provided By Patient Medical Record Prior Living Arrangements House Household Members significant other Comment long time partner Patrick Castillo (currently a patient at [facility], per pt.) Independent with ADL's No: altho impacted at this time by casted L arm and R arm surgery/[facility] Is patient alert and oriented? Yes Comment pt says she uses no DME Whiteboard Updated in Patient Room with Yes name and ext. # of Chief Controller Review Status In Process Next Review Type Continued Stay Review Document 06/14/18 13:33 KJS (Rec: 06/14/18 13:35 KJS [id number]) Discharge Planning Assessment Assigned Chief Controller JANET Cheek DPOA/Assigned Designee Name Francis Leiva (son) [phone] Advance Directives? No History Provided By Patient Medical Record Has Patient been admitted in last 30 No days? Prior Living Arrangements House Household Members significant other Comment long time partner Patrick Castillo (currently a patient at [facility], per pt.) Independent with ADL's No: altho impacted at this time by casted L arm and R arm surgery/[facility] Is patient alert and oriented? Yes Comment pt says she uses no DME Discharge Plan Longterm Facility Referrals Initiated Longterm If patient plan is SNF: Has PASSR been Yes completed? SNF/HH Preference [facility] Contact Name/Phone Emma at [facility] ph# [phone] Has Agency SNF been contacted Yes Whiteboard Updated in Patient Room with Yes name and ext. # of Chief Controller Review Status In Process Next Review Type Continued Stay Review
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
--- NOTE | 2018-06-14 16:00 | PC.NURSE ---
Transfer to SNF: Late entry (left approx 1430)- No IV access. Tele dc'd. All personal belongings sent at discharge. Transfer packet given to transport staff, including script for Oxycodone. Taken out by [facility] transport staff. Report called to [facility].
== END 2018-06-14 14:45 | DRG 641 ==
LOC: ED 18:40 → AC 06-12 07:20
PROVIDERS: Family Medicine; Nurse Practitioner Gerontology; Admitting Provider Internal Medicine; Emergency Provider Emergency Medicine; Family Provider Family Medicine; Visit Provider Internal Medicine
DX: E86.0 Dehydration (principal); N17.9 Acute kidney failure, unspecified; F11.20 Opioid dependence, uncomplicated; K92.1 Melena; N39.0 Urinary tract infection, site not specified; R53.1 Weakness; R00.0 Tachycardia, unspecified; D47.3 Essential (hemorrhagic) thrombocythemia; R55 Syncope and collapse; S52.92XD Unspecified fracture of left forearm, subsequent encounter for closed fracture with routine healing; D64.89 Other specified anemias; M79.7 Fibromyalgia; Z87.891 Personal history of nicotine dependence; B95.62 Methicillin resistant Staphylococcus aureus infection as the cause of diseases classified elsewhere; D63.8 Anemia in other chronic diseases classified elsewhere; Z23 Encounter for immunization
CPT/HCPCS: 36415; 71045; 74018; 80048; 80053; 81003; 81015; 82607; 83540; 83605; 84145; 84484; 85025; 85610; 85730; 86850; 86900; 86901; 87040; 87077; 87086; 87147; 87186; 90471; 90656; 93005; 93010; 96361; 96374; 97162; 97166; 99283; 99285; J1170; Q2038

== ENCOUNTER 2018-07-11 19:44 | Emergency (ER) | payer MEDICARE, MEDICAID, SELFPAY ==
[2018-07-11 19:54] VITALS: BP 192/99; PULSE 78; RESP 16; TEMP 36.7; O2SAT 98; BMI 23.0
--- NOTE | 2018-07-11 19:58 | PC.NURSE ---
Patient has had no new injury or trauma to right arm. Reports increase in pain distal humerus and elbow over the last 2.5 weeks. Patient had major surgery about 1.5months ago at [facility]. Patient reports burning sensation in elbow. Stopped taking oxycodone three days ago because it wasn't working for her pain. patient states fever last night but afebrile upon arrival today. Healing WNL, do not appreciate swelling, redness or warmth.
--- NOTE | 2018-07-11 20:00 | ED.UPPEXIN ---
HPI - Extremity Injury (Upper) <NICOLE Zambrano - Last Filed: 07/11/18 22:50> General Chief Complaint: Extremity Injury, Upper Stated Complaint: Arm pain, s/p surgery Time Seen by Provider: 07/11/18 20:11 Source: patient and EMS Mode of arrival: EMS Limitations: no limitations History of Present Illness HPI narrative: 67-year-old female with history of osteoporosis that is a former smoker here for complaint of ongoing pain to her right elbow area. She had a repeat arthroplasty completed to her right elbow approximately about a month and a half ago at [facility]. She denies any new trauma to the area. She states she has had fractures to that right elbow due to her osteoporosis. She has a history of chronic pain. She states that she has been using oxycodone however she stop using a couple days ago because it has not been doing anything for her pain. She had seen Orthopedics 2 weeks ago for 2 week checkup and was told return on the . She states she contacted Orthopedics at [facility] however she states she has not been able to get through. She denies any fevers or chills. She states she is concerned about infection to that area. No drainage. No other concerns or complaints. Related Data Home Medications Medication Instructions Recorded Confirmed metoprolol tartrate 25 mg PO BID #0 04/24/17 06/11/18 omeprazole 20 mg PO BID 04/19/18 06/12/18 alendronate 1 tab PO QWEEK 06/11/18 06/11/18 carisoprodol 1 tab PO DAILY 06/11/18 06/11/18 gabapentin 1 tab PO TID 06/11/18 06/11/18 polyethylene glycol 3350 1 packet PO DAILY PRN 06/11/18 06/11/18 Previous Rx's Medication Instructions Recorded ondansetron 4 mg PO Q6HR PRN #30 tab 06/14/18 oxycodone 10 mg PO Q3HR PRN #30 tab 06/14/18 oxycodone-acetaminophen 1 tab PO Q4-6H PRN #20 tab 07/11/18 Allergies Allergy/AdvReac Type Severity Reaction Status Date / Time amitriptyline [AMITRIPTYLINE] Allergy Unknown Verified 04/19/18 09:33 tramadol [TRAMADOL] Allergy Unknown Verified 04/19/18 09:33 Review of Systems <NICOLE Zambrano - Last Filed: 07/11/18 22:50> Constitutional Denies chills, Denies fever(s), Denies lethargy and Denies weakness Eyes Denies change in vision, Denies eye discharge, Denies irritation and Denies loss of vision ENT Ears, Nose, Mouth, and Throat: Denies change in voice, Denies neck pain and Denies sore throat Cardiovascular Denies chest pain, Denies irregular heart rhythm, Denies lightheadedness, Denies palpitations, Denies dyspnea, Denies dyspnea on exertion and Denies orthopnea Respiratory Denies cough, Denies dyspnea, Denies dyspnea on exertion and Denies wheezing Gastrointestinal Gastrointestinal: Denies abdominal pain, Denies change in bowel habits, Denies diarrhea, Denies nausea and Denies vomiting Genitourinary Denies hematuria, Denies flank pain, Denies urinary incontinence and Denies urinary urgency Musculoskeletal Denies neck pain Comments: Right elbow pain Integumentary/Breasts Denies pruritus, Denies erythema, Denies rash and Denies wounds Neurologic Denies confusion, Denies loss of vision and Denies weakness Psychiatric Denies anxiety, Denies confusion, Denies depression, Denies homicidal ideation and Denies suicidal ideation Endocrine Denies palpitations Hematologic/Lymphatic Denies easy bruising Allergic/Immunologic Denies wheezing Exam <NICOLE Zambrano - Last Filed: 07/11/18 22:50> Initial Vital Signs Initial Vital Signs: Vital Signs Temperature 98.1 F 07/11/18 19:54 Pulse Rate 78 07/11/18 19:54 Respiratory Rate 16 07/11/18 19:54 Blood Pressure 192/99 H 07/11/18 19:54 Pulse Oximetry 98 07/11/18 19:54 Const General: cooperative and well developed Nutritional Appearance: well nourished Orientation: alert, awake, oriented x3 and not confused HENDC Mouth: oral mucosae normal and moist mucous membranes Eyes Conjunctivae: conjunctivae normal Sclera: sclerae normal Pupils: PERRL EOM: EOM intact bilaterally Resp Effort & Inspection: normal respiratory effort, able to speak in complete sentences, no respiratory distress and no use of accessory muscles Auscultation: clear to auscultation bilaterally, no rales, no rhonchi and no wheezes Cardio Rate: regular rate Rhythm: regular rhythm Heart Sounds: no click, no gallops, no murmurs and no rubs Pulses: normal peripheral pulses Skin General: no rashes or lesions noted, No jaundice and No petechiae Neuro General: alert, oriented x3, gait normal and no focal motor deficits Speech: speech normal Extrem Other: Right elbow with no signs of swelling or ecchymosis. No erythema. No signs of trauma. Distal sensation is intact. Distal pulses are intact. Distal range of motion is intact. Incision site appears to be healing well. <Jorge Mccall DO - Last Filed: 07/12/18 02:56> Initial Vital Signs Initial Vital Signs: Vital Signs Temperature 98.1 F 07/11/18 19:54 Pulse Rate 78 07/11/18 19:54 Respiratory Rate 16 07/11/18 19:54 Blood Pressure 192/99 H 07/11/18 19:54 Pulse Oximetry 98 07/11/18 19:54 Course <NICOLE Zambrano - Last Filed: 07/11/18 22:50> Orders Ordered: ED Orders 07/11/18 20:11 XR elbow RT 2V Stat 07/11/18 21:08 C-Reactive Protein Quant Stat Complete Blood Count AUTO DIFF Stat Comprehensive Metabolic Panel Stat Erythrocyte Sedimentation Rate Stat Discontinued Medications Hydromorphone HCl (Dilaudid) 1 mg IV NOW ONE Stop: 07/11/18 20:16 Last Admin: 07/11/18 21:15 Dose: Not Given Hydromorphone HCl (Dilaudid) 2 mg IM Q4H PRN PRN Reason: Pain, Severe (7-10) Last Admin: 07/11/18 21:16 Dose: 2 mg Vital Signs - 8 hr 07/11/18 19:54 07/11/18 22:51 Temperature 98.1 F Pulse Rate 78 71 Respiratory Rate 16 12 Blood Pressure 192/99 H Blood Pressure [Left Arm] 173/92 H Pulse Oximetry 98 98 <Jorge Mccall DO - Last Filed: 07/12/18 02:56> Orders Ordered: ED Orders 07/11/18 20:11 XR elbow RT 2V Stat 07/11/18 21:08 C-Reactive Protein Quant Stat Complete Blood Count AUTO DIFF Stat Comprehensive Metabolic Panel Stat Erythrocyte Sedimentation Rate Stat Discontinued Medications Hydromorphone HCl (Dilaudid) 1 mg IV NOW ONE Stop: 07/11/18 20:16 Last Admin: 07/11/18 21:15 Dose: Not Given Hydromorphone HCl (Dilaudid) 2 mg IM Q4H PRN PRN Reason: Pain, Severe (7-10) Last Admin: 07/11/18 21:16 Dose: 2 mg Vital Signs - 8 hr 07/11/18 19:54 07/11/18 22:51 Temperature 98.1 F Pulse Rate 78 71 Respiratory Rate 16 12 Blood Pressure 192/99 H Blood Pressure [Left Arm] 173/92 H Pulse Oximetry 98 98 MDM - Extremity Injury (Upper) <NICOLE Zambrano - Last Filed: 07/11/18 22:50> Lab Data Result diagrams: 07/11/18 21:08 07/11/18 21:08 Lab Results 07/11/18 07/11/18 Range/Units 21:08 21:08 WBC 12.1 H (4.5-11.0) X10^3/uL RBC 3.31 L (4.0-5.2) X10^6/uL Hgb 10.4 L (12.0-16.0) g/dL Hct 31.6 L (36-46) % MCV 95.6 (80-100) fL MCH 31.5 (26-34) PG MCHC 33.0 (30-36) % RDW 20.4 H (11.6-14.8) % Plt Count 483 H (150-400) X10^3/uL Neut % (Auto) 67.4 (50-75) % Lymph % (Auto) 24.9 L (25-40) % Perry % (Auto) 5.8 (3-14) % Eos % (Auto) 0.8 L (2-4) % Baso % (Auto) 1.1 (0-2) % Neut # (Auto) 8200 H (4008-8026) /uL Smudge Cells 1+ H RBC Morphology See below Hypochromasia 2+ H Anisocytosis 2+ H Target Cells 1+ H Ovalocytes 2+ H ESR 28 H (0-20) MM/HR Sodium 131 L (137-145) mmol/L Potassium 4.6 (3.4-5.1) mmol/L Chloride 102 (98-107) mmol/L Carbon Dioxide 16 L (22-32) mmol/L BUN 23 H (7-17) mg/dL Creatinine 1.20 H (0.52-1.04) mg/dL Estimated GFR 44.9 L (>60) mL/min BUN/Creatinine Ratio 19.2 (6-22) Glucose 104 (80-110) mg/dL Calcium 9.0 (8.4-10.2) mg/dL Total Bilirubin 0.3 (0.2-1.3) mg/dL AST 20 (14-36) IU/L ALT 23 (9-52) IU/L Alkaline Phosphatase 112 (38-126) U/L C-Reactive Protein < 0.5 (<1.0) mg/dL Total Protein 8.1 (6.3-8.2) g/dL Albumin 4.3 (3.5-5.0) g/dL Globulin 3.8 (1.7-4.1) g/dL Albumin/Globulin Ratio 1.1 (1.0-2.8) MDM Narrative Medical decision making narrative: CBC was obtained shows elevated white count of 12.1. CMP was obtained and shows mild hypo in a tree me a and decreased GFR 44.9. GFR finding is consistent with her prior lab values. X-ray the right elbow was obtained and shows some lucency to the hardware of the mid and distal humerus indicating possible loosening or infection. Discussed case with [facility] Orthopedics who reviewed the films obtained tonight and did not feel that there is anything significant with the films that needs to be emergently care for. The recommend continued pain control over the weekend. They will follow up with the patient next week. If any worsening symptoms patient is encouraged to go to [facility] emergency room for further evaluation and access to Orthopedics. <Jorge Mccall, DO - Last Filed: 07/12/18 02:56> Lab Data Lab Results 07/11/18 07/11/18 Range/Units 21:08 21:08 WBC 12.1 H (4.5-11.0) X10^3/uL RBC 3.31 L (4.0-5.2) X10^6/uL Hgb 10.4 L (12.0-16.0) g/dL Hct 31.6 L (36-46) % MCV 95.6 (80-100) fL MCH 31.5 (26-34) PG MCHC 33.0 (30-36) % RDW 20.4 H (11.6-14.8) % Plt Count 483 H (150-400) X10^3/uL Neut % (Auto) 67.4 (50-75) % Lymph % (Auto) 24.9 L (25-40) % Perry % (Auto) 5.8 (3-14) % Eos % (Auto) 0.8 L (2-4) % Baso % (Auto) 1.1 (0-2) % Neut # (Auto) 8200 H (3215-2776) /uL Smudge Cells 1+ H RBC Morphology See below Hypochromasia 2+ H Anisocytosis 2+ H Target Cells 1+ H Ovalocytes 2+ H ESR 28 H (0-20) MM/HR Sodium 131 L (137-145) mmol/L Potassium 4.6 (3.4-5.1) mmol/L Chloride 102 (98-107) mmol/L Carbon Dioxide 16 L (22-32) mmol/L BUN 23 H (7-17) mg/dL Creatinine 1.20 H (0.52-1.04) mg/dL Estimated GFR 44.9 L (>60) mL/min BUN/Creatinine Ratio 19.2 (6-22) Glucose 104 (80-110) mg/dL Calcium 9.0 (8.4-10.2) mg/dL Total Bilirubin 0.3 (0.2-1.3) mg/dL AST 20 (14-36) IU/L ALT 23 (9-52) IU/L Alkaline Phosphatase 112 (38-126) U/L C-Reactive Protein < 0.5 (<1.0) mg/dL Total Protein 8.1 (6.3-8.2) g/dL Albumin 4.3 (3.5-5.0) g/dL Globulin 3.8 (1.7-4.1) g/dL Albumin/Globulin Ratio 1.1 (1.0-2.8) Discharge Plan Departure Patient Disposition: Home Clinical Impression: Elbow pain, right Discharge Date/Time: 07/11/18 23:01 Interventions: ED Discharge Assessment Last Done: 07/11/18 23:00 Instructions: DI for Elbow Pain Activity Restrictions/Additional Instructions: X-ray of the right elbow was obtained and shows that the hardware may have loosened somewhat. Discussed case with Orthopedics at [facility] and they do not feel that there is anything emergent to do at this time. They will see you next week so follow up with Orthopedics next week for re-evaluation. Use Percocet as prescribed for discomfort. For any worsening symptoms follow-up in emergency room at [facility] for access to Orthopedics. Follow up with primary care provider. Prescriptions: New oxycodone-acetaminophen 5-325 mg tablet 1 tab PO Q4-6H PRN (Reason: pain) Qty: 20 RF: 0 No Action metoprolol tartrate 25 MG tablet 25 mg PO BID Qty: 0 RF: 0 omeprazole 20 mg capsule,delayed release(DR/EC) 20 mg PO BID RF: 0 carisoprodol 350 mg tablet 1 tab PO DAILY RF: 0 alendronate 70 mg tablet 1 tab PO QWEEK RF: 0 gabapentin 300 mg capsule 1 tab PO TID RF: 0 polyethylene glycol 3350 17 gram/dose powder 1 packet PO DAILY PRN (Reason: Constipation) RF: 0 ondansetron 4 mg Tablet,Disintegrating 4 mg PO Q6HR PRN (Reason: Nausea) Qty: 30 RF: 0 oxycodone 5 mg Tablet 10 mg PO Q3HR PRN (Reason: Pain, Severe (7-10)) Qty: 30 RF: 0 Referrals: Luis Hernandez MD [Family Provider] - <Jorge Mccall DO - Last Filed: 07/12/18 02:56> Cosign ED Attending Cosignature Attestation: I was immediately available in the department for consultation. Documentation has been reviewed. I agree with assessment and plan.
--- NOTE | 2018-07-11 20:11 | DI.RAD.S_ITS ---
PROCEDURE: XR ELBOW RT 2V INDICATIONS: Pain to right elbow TECHNIQUE: 3 views of the elbow were acquired. COMPARISON: None. FINDINGS: Bones: Elbow arthroplasty has been performed. Hardware is intact. There is lucency surrounding several of the screws within the mid and distal humerus, which may indicate loosening/infection. No fractures or dislocations. No suspicious bony lesions. Soft tissues: No elbow joint effusion. No suspicious soft tissue calcifications. IMPRESSION: Elbow arthroplasty. Lucency surrounding the mid and distal humeral hardware, which may indicate loosening, or infection. Nonemergent bone scan may be helpful for further assessment. Dictated by: Jl Downs M.D. on 07/11/2018 at 21:15 Approved by: Jl Downs M.D. on 07/11/2018 at 21:16
[2018-07-11 21:14] LABS: Add Manual Diff / Slide Review NO; Basophils Percent Auto 1.1 % (0-2); Eosinophils Percent Auto 0.8 % (2-4); Hematocrit 31.6 % (36-46); Hemoglobin 10.4 g/dL (12.0-16.0); Lymphocytes Percent Auto 24.9 % (25-40); Mean Corpuscular Hemoglobin 31.5 PG (26-34); Mean Corpuscular Volume 95.6 fL (80-100); Monocytes Percent Auto 5.8 % (3-14); Neutrophils Absolute Auto 8200 /uL (3000-5900); Neutrophils Percent Auto 67.4 % (50-75); Platelet Count 483 X10^3/uL (150-400); Red Blood Cell Count 3.31 X10^6/uL (4.0-5.2); Red Cell Distribution Width 20.4 % (11.6-14.8); White Blood Cell Count 12.1 X10^3/uL (4.5-11.0)
[2018-07-11] MEDS: HYDROMORPHONE 2 MG INJ IM (21:16)
[2018-07-11 21:25] LABS: Alanine Aminotransferase 23 IU/L (9-52); Albumin 4.3 g/dL (3.5-5.0); Albumin Globulin Ratio 1.1 (1.0-2.8); Alkaline Phosphatase 112 U/L (38-126); Aspartate Aminotransferase 20 IU/L (14-36); BUN Creatinine Ratio 19.2 (6-22); Bilirubin Total 0.3 mg/dL (0.2-1.3); Blood Urea Nitrogen 23 mg/dL (7-17); Carbon Dioxide 16 mmol/L (22-32); Chloride 102 mmol/L (98-107); Estimated Glomerular Filt Rate 44.9 mL/min (>60); Globulin 3.8 g/dL (1.7-4.1); Glucose 104 mg/dL (80-110); HEMOLYSIS < 15 (0-50); Potassium 4.6 mmol/L (3.4-5.1); Sodium 131 mmol/L (137-145); Total Protein 8.1 g/dL (6.3-8.2)
[2018-07-11 21:39] LABS: Anisocytosis 2+
[2018-07-11 21:40] LABS: Ovalocytes 2+; Smudge Cells 1+
[2018-07-11 21:41] LABS: Hypochromasia 2+; Target Cells 1+
[2018-07-11 21:48] LABS: Erythrocyte Sedimentation Rate 28 MM/HR (0-20)
[2018-07-11 21:54] LABS: C-Reactive Protein Quant < 0.5 mg/dL (<1.0)
[2018-07-11 22:51] VITALS: BP 173/92; PULSE 71; RESP 12; O2SAT 98
== END 2018-07-11 23:01 | disposition home or self-care (01) ==
PROVIDERS: Emergency Provider Nurse Practitioner Family; Family Provider Family Medicine
DX: M25.521 Pain in right elbow (principal)
CPT/HCPCS: 36415; 73070; 80053; 85025; 85651; 86140; 96372; 99283; 99284; J1170

== ENCOUNTER 2018-07-14 16:25 | Emergency (ER) | payer MEDICARE, MEDICAID, SELFPAY ==
--- NOTE | 2018-07-14 16:27 | DI.CT.S_ITS ---
PROCEDURE: CT HEAD/BRAIN WO CON INDICATIONS: altered mental status TECHNIQUE: Noncontrast 4.5 mm thick angled axial sections acquired from the foramen magnum to the vertex, with coronal and sagittal reformats. For radiation dose reduction, the following was used: automated exposure control, adjustment of mA and/or kV according to patient size. COMPARISON: [facility], CT, CT HEAD/BRAIN WO CON, 02/27/2018, 13:39. FINDINGS: Image quality: Excellent. CSF spaces: Basal cisterns are patent. No extra-axial fluid collections. The ventricles are symmetric in size and shape. Brain: No intracranial bleeds or masses. There is cerebral volume loss for age, with resultant ventricular and sulcal prominence. There are periventricular and deep white matter chronic small vessel ischemic changes. There is intracranial internal carotid artery atherosclerosis. Skull and face: Calvarium and visualized facial bones appear intact, without suspicious lesions. Sinuses: Visualized sinuses and mastoids are clear. IMPRESSION: No acute intracranial disease process. Dictated by: Idalia Guerrero MD, PhD on 07/14/2018 at 16:43 Approved by: Idalia Guerrero MD, PhD on 07/14/2018 at 16:48
[2018-07-14 16:32] VITALS: BP 115/73; PULSE 78; RESP 16; O2SAT 100; BMI 22.6
--- NOTE | 2018-07-14 16:33 | DI.RAD.S_ITS ---
PROCEDURE: XR CHEST 1V INDICATIONS: altered mental status TECHNIQUE: One view of the chest was acquired. COMPARISON: [facility], CR, XR CHEST 1V, 06/11/2018, 16:39. FINDINGS: Surgical changes and devices: None. Lungs and pleura: No pleural effusions or pneumothorax. Lungs are clear. Mediastinum: Mediastinal contours appear normal. Heart size is normal. Bones and chest wall: No suspicious bony lesions. Overlying soft tissues appear unremarkable. IMPRESSION: No acute cardiopulmonary disease process. Dictated by: Idalia Guerrero MD, PhD on 07/14/2018 at 16:52 Approved by: Idalia Guerrero MD, PhD on 07/14/2018 at 16:52
--- NOTE | 2018-07-14 16:37 | PC.NURSE ---
Pt able to give extensive medical hx with eyes closed
[2018-07-14] MEDS: SODIUM CHLORIDE 0.9% 1,000 ML 1000 ML IV (17:20)
[2018-07-14 17:26] VITALS: BP 103/64; PULSE 70; RESP 18; O2SAT 97
[2018-07-14 18:00] LABS: Add Manual Diff / Slide Review NO; Basophils Percent Auto 0.6 % (0-2); Eosinophils Percent Auto 1.1 % (2-4); Hematocrit 34.2 % (36-46); Hemoglobin 11.2 g/dL (12.0-16.0); Lymphocytes Percent Auto 12.8 % (25-40); Mean Corpuscular HGB Conc 32.8 % (30-36); Mean Corpuscular Hemoglobin 31.8 PG (26-34); Mean Corpuscular Volume 97.1 fL (80-100); Monocytes Percent Auto 4.8 % (3-14); Neutrophils Absolute Auto 7400 /uL (3000-5900); Neutrophils Percent Auto 80.7 % (50-75); Platelet Count 466 X10^3/uL (150-400); Red Blood Cell Count 3.52 X10^6/uL (4.0-5.2); Red Cell Distribution Width 21.3 % (11.6-14.8); White Blood Cell Count 9.2 X10^3/uL (4.5-11.0)
[2018-07-14 18:01] LABS: Prothrombin Time 11.2 SECONDS (10.1-12.7)
[2018-07-14 18:04] LABS: PTT Partial Thromboplastin Tim 34 SECONDS (26.4-36.2)
[2018-07-14 18:06] LABS: Acetaminophen < 10 ug/mL (10-30); Alanine Aminotransferase 17 IU/L (9-52); Albumin 4.7 g/dL (3.5-5.0); Albumin Globulin Ratio 1.2 (1.0-2.8); Alkaline Phosphatase 106 U/L (38-126); Aspartate Aminotransferase 22 IU/L (14-36); BUN Creatinine Ratio 17.9 (6-22); Bilirubin Total 0.3 mg/dL (0.2-1.3); Blood Urea Nitrogen 25 mg/dL (7-17); Calcium 9.8 mg/dL (8.4-10.2); Carbon Dioxide 20 mmol/L (22-32); Chloride 99 mmol/L (98-107); Creatine Kinase 20 U/L (30-135); Estimated Glomerular Filt Rate 37.6 mL/min (>60); Ethanol (ETOH) < 10 mg/dL; Globulin 3.8 g/dL (1.7-4.1); Glucose 120 mg/dL (80-110); HEMOLYSIS < 15 (0-50); Lactate (Lactic Acid) 1.5 mmol/L (0.7-2.1); Potassium 4.7 mmol/L (3.4-5.1); Sodium 135 mmol/L (137-145); Total Protein 8.5 g/dL (6.3-8.2)
[2018-07-14 18:09] LABS: Salicylate < 1.0 mg/dL (<20)
[2018-07-14 18:13] VITALS: BP 124/63; PULSE 72; RESP 12; O2SAT 95
[2018-07-14 18:18] LABS: Troponin I < 0.012 ng/mL (0.01-0.034)
[2018-07-14 18:24] LABS: Anisocytosis 1+; Macrocytosis 1+
[2018-07-14 18:30] VITALS: BP 131/85; PULSE 69; RESP 14; O2SAT 97
[2018-07-14 18:56] LABS: Thyroid Stimulating Hormone 1.36 uIU/mL (0.47-4.68)
[2018-07-14 19:40] VITALS: BP 128/71; PULSE 69; RESP 11; O2SAT 100
[2018-07-14] MEDS: HYDROMORPHONE 1 MG INJ IV (20:03)
[2018-07-14 20:04] LABS: Urine Amphetamines Negative (Negative); Urine Cocaine Negative (Negative); Urine MDMA Negative (Negative); Urine Methamphetamines Negative (Negative); Urine Morphine/Opi cutoff 2000 Negative (Negative); Urine Phencyclidine Negative (Negative); Urine Tetrahydrocannabinol Negative (Negative)
[2018-07-14 20:05] LABS: Urine Barbiturates Negative (Negative); Urine Benzodiazepines Negative (Negative); Urine Methadone Negative (Negative); Urine Oxycodone Positive (Negative); Urine Tricyclic Antidepressant Negative (Negative)
--- NOTE | 2018-07-14 20:05 | ED_ITS ---
HPI - Altered Mental Status General Chief Complaint: Altered Mental Status Stated Complaint: Decreased LOC Time Seen by Provider: 07/14/18 16:25 Source: patient and family Mode of arrival: other (Pulled from car in ambulance [place]) Limitations: no limitations History of Present Illness HPI narrative: Patient is a 67-year-old female who had a syncopal episode while on the passenger see while her was driving. She said that she was complaining that she was having some visual changes on and according to the she became unresponsive for a brief period of time although she is weak and arousable when they arrived to the emergency department. She has chronic ongoing pain with her right arm she has had multiple surgeries on it from a fracture. She was seen evaluated here Saturday which x-ray did show some possible loosening. She is supposed to follow up with [facility] this week. She was previously admitted here June 12 through the where she had dizziness lightheadedness and weakness and found to be significantly dehydrated. She has not had any diarrhea or vomiting no chest pain or heart palpitations. She did feel her face get a very flushed but this was after she started coming to. She had no shaking her eyes did not roll in the back of her head. MD complaint: decreased responsiveness Associated symptoms: denies other symptoms Related Data Home Medications Medication Instructions Recorded Confirmed metoprolol tartrate 25 mg PO BID #0 04/24/17 07/14/18 omeprazole 20 mg PO BID 04/19/18 07/14/18 alendronate 1 tab PO QWEEK 06/11/18 07/14/18 gabapentin 600 mg PO TID 06/11/18 07/14/18 Previous Rx's Medication Instructions Recorded oxycodone-acetaminophen 1 tab PO Q4-6H PRN #20 tab 07/11/18 Allergies Allergy/AdvReac Type Severity Reaction Status Date / Time amitriptyline [AMITRIPTYLINE] Allergy Unknown Verified 04/19/18 09:33 tramadol [TRAMADOL] Allergy Unknown Verified 04/19/18 09:33 Review of Systems Review of Systems All systems reviewed & are unremarkable except as noted in HPI and below Constitutional Denies chills, Denies fever(s), Reports headache(s), Denies lethargy and Denies weakness Eyes Reports blurry vision (Now resolved) ENT Ears, Nose, Mouth, and Throat: Denies vertigo, Denies dizziness and Reports headache(s) Cardiovascular Denies chest pain, Denies irregular heart rhythm, Denies lightheadedness, Denies palpitations, Denies dyspnea, Denies dyspnea on exertion and Denies orthopnea Respiratory Denies cough, Denies dyspnea, Denies dyspnea on exertion and Denies wheezing Musculoskeletal Reports as per HPI Integumentary/Breasts Denies pruritus, Denies erythema, Denies rash and Denies wounds Neurologic Denies vertigo, Denies dizziness, Reports headache(s), Denies lack of coordination, Denies focal weakness, Denies convulsions, Denies seizure-like activity and Denies weakness Endocrine Denies palpitations Allergic/Immunologic Denies wheezing Exam Initial Vital Signs Initial Vital Signs: Vital Signs Pulse Rate 78 07/14/18 16:32 Respiratory Rate 16 07/14/18 16:32 Blood Pressure 115/73 07/14/18 16:32 Pulse Oximetry 100 07/14/18 16:32 Const General: cooperative and ill appearing (Extremely weak) Nutritional Appearance: thin and underweight Orientation: alert, awake and oriented x3 Eyes Pupils: PERRL EOM: EOM intact bilaterally Chest Chest: normal inspection of the chest Resp Effort & Inspection: normal respiratory effort, able to speak in complete sentences, no respiratory distress and no use of accessory muscles Auscultation: clear to auscultation bilaterally, no rales, no rhonchi and no wheezes Cardio Rate: regular rate Rhythm: regular rhythm Heart Sounds: no click, no gallops, no murmurs and no rubs Pulses: normal peripheral pulses Skin General: no rashes or lesions noted, No jaundice and No petechiae Neuro General: alert, oriented x3, gait normal and no focal motor deficits Speech: speech normal Scores NIH Stroke Scale Level of Conciousness: Alert, keenly responsive Ask month/age: Answers both questions correctly. Open/close eyes, close hand: Performs both tasks correctly Best gaze horizontal: Normal Visual christy: No visual loss Facial palsy: Normal symetrical movement Left arm drift: No drift for full 10 sec Right arm drift: No drift for full 10 sec Left leg drift: No drift for full 10 sec Right leg drift: No drift for full 10 sec Limb ataxia: Absent Sensory on face/arms/legs: Normal, no sensory loss Best language: No aphasia, normal Dysarthria: Normal Extinction or inattention: No abnormality Total NIH Stroke scale score: 0 Course Orders Ordered: Discontinued Medications Hydromorphone HCl (Dilaudid) 1 mg IV NOW ONE Stop: 07/14/18 19:55 Last Admin: 07/14/18 20:03 Dose: 1 mg Sodium Chloride (Normal Saline 0.9%) 1,000 mls @ 1,000 mls/hr IV CONT LACY Last Infusion: 07/14/18 20:24 Dose: 0 mls/hr Admin: 07/14/18 17:20 Dose: 1,000 mls/hr Sodium Chloride (Normal Saline 0.9%) 1,000 mls @ 1,000 mls/hr IV BOLUS ONE Stop: 07/14/18 19:15 Last Admin: 07/14/18 18:59 Dose: Vital Signs - 8 hr 07/14/18 16:32 07/14/18 17:26 07/14/18 18:13 Pulse Rate 78 70 72 Respiratory Rate 16 18 12 Blood Pressure 115/73 Blood Pressure [Left Arm] 103/64 124/63 Pulse Oximetry 100 97 95 07/14/18 18:30 07/14/18 19:40 Pulse Rate 69 69 Respiratory Rate 14 11 L Blood Pressure Blood Pressure [Left Arm] 131/85 128/71 Pulse Oximetry 97 100 MDM - Altered Mental Status Lab Data Attestation: I reviewed the patient's lab results. Result diagrams: 07/14/18 17:41 07/14/18 17:41 Lab Results 07/14/18 07/14/18 07/14/18 Range/Units 17:41 17:41 17:41 WBC 9.2 (4.5-11.0) X10^3/uL RBC 3.52 L (4.0-5.2) X10^6/uL Hgb 11.2 L (12.0-16.0) g/dL Hct 34.2 L (36-46) % MCV 97.1 (80-100) fL MCH 31.8 (26-34) PG MCHC 32.8 (30-36) % RDW 21.3 H (11.6-14.8) % Plt Count 466 H (150-400) X10^3/uL Neut % (Auto) 80.7 H (50-75) % Lymph % (Auto) 12.8 L (25-40) % [place] % (Auto) 4.8 (3-14) % Eos % (Auto) 1.1 L (2-4) % Baso % (Auto) 0.6 (0-2) % Neut # (Auto) 7400 H (8247-3032) /uL RBC Morphology See below Anisocytosis 1+ H Macrocytosis 1+ H PT 11.2 (10.1-12.7) SECONDS INR 1.0 (0.9-1.3) APTT 34 D (26.4-36.2) SECONDS Sodium 135 L (137-145) mmol/L Potassium 4.7 (3.4-5.1) mmol/L Chloride 99 (98-107) mmol/L Carbon Dioxide 20 L (22-32) mmol/L BUN 25 H (7-17) mg/dL Creatinine 1.40 H (0.52-1.04) mg/dL Estimated GFR 37.6 L (>60) mL/min BUN/Creatinine Ratio 17.9 (6-22) Glucose 120 H (80-110) mg/dL Lactate (0.7-2.1) mmol/L Calcium 9.8 (8.4-10.2) mg/dL Total Bilirubin 0.3 (0.2-1.3) mg/dL AST 22 (14-36) IU/L ALT 17 (9-52) IU/L Alkaline Phosphatase 106 (38-126) U/L Total Creatine Kinase 20 L (30-135) U/L CK-MB (CK-2) TNP CK-MB (CK-2) Rel Index TNP Troponin I < 0.012 (0.01-0.034) ng/mL Total Protein 8.5 H (6.3-8.2) g/dL Albumin 4.7 (3.5-5.0) g/dL Globulin 3.8 (1.7-4.1) g/dL Albumin/Globulin Ratio 1.2 (1.0-2.8) TSH (0.47-4.68) uIU/mL Salicylates < 1.0 (<20) mg/dL Urine Opiates Screen (Negative) Ur Oxycodone Screen (Negative) Urine Methadone Screen (Negative) Acetaminophen < 10 L (10-30) ug/mL Ur Barbiturates Screen (Negative) U Tricyclic Antidepress (Negative) Ur Phencyclidine Scrn (Negative) Ur Amphetamines Screen (Negative) U Methamphetamines Scrn (Negative) Ur MDMA Scrn (Ecstasy) (Negative) U Benzodiazepines Scrn (Negative) Urine Cocaine Screen (Negative) U Marijuana (THC) Screen (Negative) Ethyl Alcohol < 10 mg/dL 07/14/18 07/14/18 07/14/18 Range/Units 17:41 17:41 19:50 WBC (4.5-11.0) X10^3/uL RBC (4.0-5.2) X10^6/uL Hgb (12.0-16.0) g/dL Hct (36-46) % MCV (80-100) fL MCH (26-34) PG MCHC (30-36) % RDW (11.6-14.8) % Plt Count (150-400) X10^3/uL Neut % (Auto) (50-75) % Lymph % (Auto) (25-40) % [place] % (Auto) (3-14) % Eos % (Auto) (2-4) % Baso % (Auto) (0-2) % Neut # (Auto) (0850-9257) /uL RBC Morphology Anisocytosis Macrocytosis PT (10.1-12.7) SECONDS INR (0.9-1.3) APTT (26.4-36.2) SECONDS Sodium (137-145) mmol/L Potassium (3.4-5.1) mmol/L Chloride (98-107) mmol/L Carbon Dioxide (22-32) mmol/L BUN (7-17) mg/dL Creatinine (0.52-1.04) mg/dL Estimated GFR (>60) mL/min BUN/Creatinine Ratio (6-22) Glucose (80-110) mg/dL Lactate 1.5 (0.7-2.1) mmol/L Calcium (8.4-10.2) mg/dL Total Bilirubin (0.2-1.3) mg/dL AST (14-36) IU/L ALT (9-52) IU/L Alkaline Phosphatase (38-126) U/L Total Creatine Kinase (30-135) U/L CK-MB (CK-2) CK-MB (CK-2) Rel Index Troponin I (0.01-0.034) ng/mL Total Protein (6.3-8.2) g/dL Albumin (3.5-5.0) g/dL Globulin (1.7-4.1) g/dL Albumin/Globulin Ratio (1.0-2.8) TSH 1.36 (0.47-4.68) uIU/mL Salicylates (<20) mg/dL Urine Opiates Screen Negative (Negative) Ur Oxycodone Screen Positive H (Negative) Urine Methadone Screen Negative (Negative) Acetaminophen (10-30) ug/mL Ur Barbiturates Screen Negative (Negative) U Tricyclic Antidepress Negative (Negative) Ur Phencyclidine Scrn Negative (Negative) Ur Amphetamines Screen Negative (Negative) U Methamphetamines Scrn Negative (Negative) Ur MDMA Scrn (Ecstasy) Negative (Negative) U Benzodiazepines Scrn Negative (Negative) Urine Cocaine Screen Negative (Negative) U Marijuana (THC) Screen Negative (Negative) Ethyl Alcohol mg/dL Point of Care Testing Glucose POC 150 ECG Data Attestation: I personally reviewed and interpreted this ECG as follows: Prior ECG tracings: available for review Interpretation: Normal sinus rhythm rate 76 similar to previous EKGs no T-wave inversions MDM Narrative Medical decision making narrative: The patient the week when she was 1st dropped off by her in the ambulance [place] was talking. She has a come around and is extremely talkative. This is likely a syncopal episode. She has never been bradycardic though she is on metoprolol. Previously she was quite dehydrated. They are concerned with her arm and the recent x-ray did suggest infection however she has no leukocytosis fever or other signs of infection. He has x-ray also suggested she has a loose screw. She has not yet set up an appointment for [facility] I encouraged her to do so. I suggested Holter monitor which can be set up with primary care at this time no indication for hospitalization. I discussed all findings with the patient and spouse, Education has been performed regarding treatment plan, diagnosis, warning signs and symptoms and all concerns have been addressed. Verbally agree with and understood all of the above. Discharge Plan Departure Patient Disposition: Home Clinical Impression: Vasovagal near syncope Discharge Date/Time: 07/14/18 20:31 Interventions: ED Discharge Assessment Last Done: 07/14/18 20:26 Instructions: Fainting Activity Restrictions/Additional Instructions: *You have been diagnosed with fainting episode *What to do: At this time blood work does show some very mild dehydration nothing like previously. Head CT and other blood work are reassuring. X-ray from Saturday does show some loosening of the metal it is very important that he follow up with [facility] this week. No sign of infection at this time. -may also need something called Holter monitor to monitor your heart rate if you should have a fainting episode again please discuss this with her primary care provider *Continue to take medications as directed *Follow up with your primary care provider in 2-3 days *Return to ER if you should have recurrent episode of passing out, increased pain, fever any new, worsening or concerning symptoms Prescriptions: No Action metoprolol tartrate 25 MG tablet 25 mg PO BID Qty: 0 RF: 0 oxycodone-acetaminophen 5-325 mg tablet 1 tab PO Q4-6H PRN (Reason: pain) Qty: 20 RF: 0 omeprazole 20 mg capsule,delayed release(DR/EC) 20 mg PO BID RF: 0 alendronate 70 mg tablet 1 tab PO QWEEK RF: 0 gabapentin 300 mg capsule 600 mg PO TID RF: 0 Referrals: Luis Hernandez MD [Family Provider] -
[2018-07-14 20:26] VITALS: BP 147/64; PULSE 82; RESP 20; O2SAT 100
== END 2018-07-14 20:31 | disposition home or self-care (01) ==
PROVIDERS: Emergency Provider Emergency Medicine; Family Provider Family Medicine
DX: R55 Syncope and collapse (principal)
CPT/HCPCS: 70450; 71045; 80053; 80305; 80320; 80329; 82550; 82962; 83605; 84443; 84484; 85025; 85610; 85730; 87040; 93005; 96361; 96374; 99283; 99285; 99291; G0480; J1170

== ENCOUNTER 2018-07-29 17:07 | Observation (INO) | payer MEDICARE, MEDICAID, SELFPAY ==
[2018-07-29 17:17] VITALS: BP 105/60; PULSE 98; RESP 12; TEMP 37.9; O2SAT 100
--- NOTE | 2018-07-29 17:22 | DI.RAD.S_ITS ---
PROCEDURE: XR ELBOW RT MIN 3V INDICATIONS: fever, hardware TECHNIQUE: 3 -views of the elbow were acquired. COMPARISON: [facility], CR, XR ELBOW RT 2V, 07/11/2018, 20:34. FINDINGS: Bones: No fractures or dislocations. No suspicious bony lesions. Plate and screw fixation of the right humerus and elbow arthroplasty. Hardware appears intact. Lucency adjacent to the cement bone interface, as well as a hardware in the proximal ulna however these are technically age-indeterminate findings given the absence of comparison studies. Soft tissues: No elbow joint effusion. No suspicious soft tissue calcifications. IMPRESSION: Hardware intact however lucency at the cement bone interface and bone hardware interface of the proximal ulnar component raises the possibility of loosening or infection. However, given the absence of prior comparison studies, postoperative appearance cannot be excluded. Triple phase bone scan could be performed to further assess Dictated by: Ricardo Lanza M.D. on 07/29/2018 at 18:43 Approved by: Ricardo Lanza M.D. on 07/29/2018 at 18:46
--- NOTE | 2018-07-29 17:22 | DI.RAD.S_ITS ---
PROCEDURE: XR CHEST 1V INDICATIONS: fever TECHNIQUE: One view of the chest was acquired. COMPARISON: [facility], CR, XR CHEST 1V, 07/14/2018, 16:40. FINDINGS: Surgical changes and devices: Surgical fixation of the right humerus partially visualized. Lumbar vertebroplasty Lungs and pleura: No pleural effusions or pneumothorax. Lungs are clear. Mediastinum: Mediastinal contours appear normal. Heart size is normal. Bones and chest wall: No suspicious bony lesions. Overlying soft tissues appear unremarkable. IMPRESSION: No acute consolidation Dictated by: Ricardo Lanza M.D. on 07/29/2018 at 18:41 Approved by: Ricardo Lanza M.D. on 07/29/2018 at 18:42
--- NOTE | 2018-07-29 17:29 | PC.NURSE ---
Patient reports burning and urgency with urination for couple weeks. Fever noted this morning. Patient states she had episode of incontinence this morning.
[2018-07-29 18:10] LABS: Add Manual Diff / Slide Review NO; Basophils Percent Auto 0.3 % (0-2); Eosinophils Percent Auto 0.8 % (2-4); Hematocrit 28.2 % (36-46); Hemoglobin 9.3 g/dL (12.0-16.0); Lymphocytes Percent Auto 5.3 % (25-40); Mean Corpuscular Hemoglobin 32.2 PG (26-34); Mean Corpuscular Volume 97.5 fL (80-100); Monocytes Percent Auto 5.2 % (3-14); Neutrophils Absolute Auto 14700 /uL (3000-5900); Neutrophils Percent Auto 88.4 % (50-75); Platelet Count 433 X10^3/uL (150-400); Red Blood Cell Count 2.89 X10^6/uL (4.0-5.2); Red Cell Distribution Width 20.9 % (11.6-14.8); White Blood Cell Count 16.6 X10^3/uL (4.5-11.0)
[2018-07-29 18:16] LABS: Lactate (Lactic Acid) 0.5 mmol/L (0.7-2.1)
[2018-07-29 18:18] LABS: Alanine Aminotransferase 23 IU/L (9-52); Albumin 4.2 g/dL (3.5-5.0); Albumin Globulin Ratio 1.2 (1.0-2.8); Alkaline Phosphatase 123 U/L (38-126); Aspartate Aminotransferase 26 IU/L (14-36); BUN Creatinine Ratio 18.8 (6-22); Bilirubin Total 0.2 mg/dL (0.2-1.3); Blood Urea Nitrogen 30 mg/dL (7-17); C-Reactive Protein Quant 2.4 mg/dL (<1.0); Calcium 8.9 mg/dL (8.4-10.2); Carbon Dioxide 19 mmol/L (22-32); Chloride 98 mmol/L (98-107); Estimated Glomerular Filt Rate 32.2 mL/min (>60); Globulin 3.4 g/dL (1.7-4.1); Glucose 114 mg/dL (80-110); HEMOLYSIS < 15 (0-50); Potassium 4.2 mmol/L (3.4-5.1); Sodium 131 mmol/L (137-145); Total Protein 7.6 g/dL (6.3-8.2)
[2018-07-29 18:28] LABS: Erythrocyte Sedimentation Rate 65 MM/HR (0-20)
[2018-07-29 18:32] LABS: Anisocytosis 1+; Macrocytosis 1+; Poikilocytosis 1+
--- NOTE | 2018-07-29 18:35 | ED.AMS ---
HPI - Altered Mental Status General Chief Complaint: Altered Mental Status Stated Complaint: Weakness/Confusion/Fever Time Seen by Provider: 07/29/18 17:52 Source: patient, family and old records reviewed Mode of arrival: EMS Limitations: no limitations History of Present Illness HPI narrative: This is a 67-year-old female that comes in for concern of altered mental status. Per patient has had symptoms on and off for several months. Patient will occasionally nod off or pass out intermittently. Sometimes she seems very with it and normal and other times she does not. He also states she sometimes seems very fearful and anxious. She can't seem angry and when trying to call for help she does not want to be transported or evaluated. He states that the symptoms seemed to start when her son by suicide several months ago. Patient states that she has been depressed intermittently but not truly depressed. She states today she thinks she might have taken some additional or a double dose of her oxycodone, gabapentin and stomach medication. Patient states this does not normally happen. Patient states she has had cough with green productive sputum. She has not had any fevers but did feel warm and was sweating overnight. She has not had any chest pain but complains of some abdominal pain. She has not had any nausea or vomiting. She has not had any diarrhea. She has had urinary urgency as well as frequency and dysuria. She did have a fall and had a fracture of her elbow and clavicle and was treated at [facility]. This was secondary to a similar episode. Per she has been like this for the last couple days. He states that he thought she also may have had hallucination, he states that she noted her mother out of the corner of her IV other day as well as her son. Related Data Home Medications Medication Instructions Recorded Confirmed metoprolol tartrate 25 mg PO BID #0 04/24/17 07/29/18 omeprazole 20 mg PO BID 04/19/18 07/29/18 alendronate 1 tab PO QWEEK 06/11/18 07/29/18 gabapentin 600 mg PO TID 06/11/18 07/29/18 oxycodone 5 mg PO Q4-6H PRN 07/29/18 07/29/18 ranitidine HCl 150 mg PO BID 07/29/18 07/29/18 Previous Rx's Medication Instructions Recorded oxycodone-acetaminophen 1 tab PO Q4-6H PRN #20 tab 07/11/18 Allergies Allergy/AdvReac Type Severity Reaction Status Date / Time amitriptyline [AMITRIPTYLINE] Allergy Unknown Verified 04/19/18 09:33 tramadol [TRAMADOL] Allergy Unknown Verified 04/19/18 09:33 Review of Systems Review of Systems All systems reviewed & are unremarkable except as noted in HPI and below Constitutional Reports anorexia, Denies chills, Reports difficulty sleeping, Reports excessive sweating, Denies fever(s), Reports frequent falls, Reports lethargy and Reports weakness Eyes Denies change in vision ENT Ears, Nose, Mouth, and Throat: Denies change in voice, Denies neck pain and Denies other (facial droop) Cardiovascular Denies chest pain, Reports syncope (? ), Denies rapid heart rate, Denies pedal edema, Denies irregular heart rhythm, Denies lightheadedness, Denies palpitations, Denies dyspnea, Denies dyspnea on exertion and Denies orthopnea Respiratory Reports change in phlegm color, Reports chest congestion, Reports cough, Denies hemoptysis, Reports excessive phlegm production (green), Denies dyspnea, Denies dyspnea on exertion, Denies stridor, Denies wheezing and Reports other (rattling in chest) Gastrointestinal Gastrointestinal: Reports abdominal pain, Denies melena, Denies hematochezia, Denies change in bowel habits, Denies diarrhea, Denies nausea and Denies vomiting Genitourinary Reports urinary frequency, Reports dysuria, Denies flank pain and Reports urinary urgency Musculoskeletal Denies back pain, Reports arthralgias (right elbow from prior fx.), Denies neck pain, Denies numbness and Denies tingling Integumentary/Breasts Denies rash Neurologic Reports abnormal movements (twitches), Reports syncope (? ), Reports frequent falls, Denies focal weakness, Reports memory loss, Denies numbness, Denies tingling and Reports weakness Psychiatric Reports abnormal sleep pattern, Reports anxiety, Reports depression, Reports memory loss, Reports visual hallucinations and Denies suicidal ideation Endocrine Reports excessive sweating and Denies palpitations Allergic/Immunologic Denies wheezing Exam Narrative Exam Narrative: GEN: well nourished, well appearing female, alert and oriented x 3, patient appears to be in mild distress. HEENT: Atraumatic, pupils are pinpoint, extraocular movements are intact, nares are clear, TMs are clear with no fluid, there is no conjunctival pallor. Throat is clear without any exudates, erythema, tonsillar enlargement or uvular deviation, no facial droop. HEART: Regular rate and rhythm without murmur, clicks, rubs. Pulses are equal in upper and lower extremities LUNGS:Lungs decreased bilaterally, no wheezes, rales, crackles, chest moves symmetrically ABD:bowel sounds normal, soft, non-tender, no guarding, rebound, rigidity, no masses noted, no hepatosplenomegaly :No CVA tenderness MSCL: Non-tender, no muscle atrophy, muscles strength 5/5 upper and lower extremities, full range of motion. Patient has atrophy of muscles of the right elbow/forearm, non-tender to palpation, no swelling appreciated, no erythema or warmth appreciated. Patient has full ROM. 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 NEURO:CN 2-12 intact, sensation normal Initial Vital Signs Initial Vital Signs: Vital Signs Temperature 100.3 F H 07/29/18 17:17 Pulse Rate 98 H 07/29/18 17:17 Respiratory Rate 12 07/29/18 17:17 Blood Pressure 105/60 07/29/18 17:17 Pulse Oximetry 100 07/29/18 17:17 Course Orders Ordered: ED Orders 07/29/18 18:46 CT head/brain wo con Stat 07/29/18 18:50 EKG-12 Lead Stat 07/29/18 19:07 Urine Microscopic Stat 07/29/18 21:39 Consult to Discharge Planning Routine Consult to Physical Therapy Evaluate & Treat 07/30/18 NM bone scan multiple areas Routine 07/30/18 06:00 Basic Metabolic Panel DAILY Complete Blood Count AUTO DIFF DAILY Copper Routine Folate Routine Iron Profile (w/ % Saturation) Routine Magnesium DAILY Vitamin B12 Routine 07/31/18 06:00 Basic Metabolic Panel DAILY Complete Blood Count AUTO DIFF DAILY Magnesium DAILY 08/01/18 06:00 Basic Metabolic Panel DAILY Complete Blood Count AUTO DIFF DAILY Magnesium DAILY Acetaminophen (Tylenol) 1,000 mg PO Q8H PRN PRN Reason: As Needed for Fever/Mild Pain Albuterol/Ipratropium (Duoneb) 3 ml INH RTQ6HR PRN PRN Reason: Shortness Of Breath Bisacodyl (Dulcolax) 10 mg HI DAILY PRN PRN Reason: Constipation Docusate Sodium (Colace) 100 mg PO BID LACY Enoxaparin Sodium (Lovenox) 40 mg SUBCUT DAILY LACY Sodium Chloride (Normal Saline 0.9%) 1,000 mls @ 150 mls/hr IV CONT LACY Last Admin: 07/29/18 22:00 Dose: 100 mls/hr Pantoprazole Sodium (Protonix) 40 mg PO 0600 LACY Discontinued Medications Sodium Chloride (Normal Saline 0.9%) 1,000 mls @ 1,000 mls/hr IV BOLUS ONE Stop: 07/29/18 18:24 Last Infusion: 07/29/18 20:45 Dose: 1,000 mls/hr Admin: 07/29/18 19:22 Dose: 1,000 mls/hr Sodium Chloride (Normal Saline 0.9%) 500 mls @ 1,000 mls/hr IV BOLUS ONE Stop: 07/29/18 19:18 Last Infusion: 07/29/18 21:18 Dose: 1,000 mls/hr Admin: 07/29/18 20:48 Dose: 1,000 mls/hr Ceftriaxone Sodium/Dextrose (Rocephin) 1 gm in 50 mls @ 100 mls/hr IV NOW ONE Stop: 07/29/18 20:20 Last Infusion: 07/29/18 20:42 Dose: 100 mls/hr Admin: 07/29/18 19:59 Dose: 100 mls/hr Ketorolac Tromethamine (Toradol) 30 mg IV NOW ONE Stop: 07/29/18 17:26 Last Admin: 07/29/18 19:22 Dose: Not Given Vital Signs - 8 hr 07/29/18 19:44 07/29/18 21:15 07/29/18 21:30 Temperature 98.2 F Pulse Rate 74 80 82 Respiratory Rate 14 18 Blood Pressure 108/56 L 101/65 Blood Pressure [Right Arm] 104/54 L Pulse Oximetry 96 97 97 07/29/18 22:13 07/30/18 01:00 07/30/18 01:10 Temperature 98.2 F Pulse Rate 83 Respiratory Rate 19 Blood Pressure 93/56 L Blood Pressure [Right Arm] Pulse Oximetry 97 97 98 MDM - Altered Mental Status Differential Diagnosis Likely altered mental status and delirium Lab Data Attestation: I reviewed the patient's lab results. Result diagrams: 12/11/18 17:42 07/29/18 17:42 Lab Results 07/29/18 07/29/18 07/29/18 Range/Units 17:42 17:42 17:42 WBC 16.6 H (4.5-11.0) X10^3/uL RBC 2.89 L (4.0-5.2) X10^6/uL Hgb 9.3 L (12.0-16.0) g/dL Hct 28.2 L (36-46) % MCV 97.5 (80-100) fL MCH 32.2 (26-34) PG MCHC 33.0 (30-36) % RDW 20.9 H (11.6-14.8) % Plt Count 433 H (150-400) X10^3/uL Neut % (Auto) 88.4 H (50-75) % Lymph % (Auto) 5.3 L (25-40) % [place] % (Auto) 5.2 (3-14) % Eos % (Auto) 0.8 L (2-4) % Baso % (Auto) 0.3 (0-2) % Neut # (Auto) 19981 H (6646-0726) /uL RBC Morphology See below Poikilocytosis 1+ H Anisocytosis 1+ H Macrocytosis 1+ H ESR 65 H (0-20) MM/HR Sodium 131 L (137-145) mmol/L Potassium 4.2 (3.4-5.1) mmol/L Chloride 98 (98-107) mmol/L Carbon Dioxide 19 L (22-32) mmol/L BUN 30 H (7-17) mg/dL Creatinine 1.60 H (0.52-1.04) mg/dL Estimated GFR 32.2 L (>60) mL/min BUN/Creatinine Ratio 18.8 (6-22) Glucose 114 H (80-110) mg/dL Lactate (0.7-2.1) mmol/L Calcium 8.9 (8.4-10.2) mg/dL Total Bilirubin 0.2 (0.2-1.3) mg/dL AST 26 (14-36) IU/L ALT 23 (9-52) IU/L Alkaline Phosphatase 123 (38-126) U/L C-Reactive Protein 2.4 H (<1.0) mg/dL Total Protein 7.6 (6.3-8.2) g/dL Albumin 4.2 (3.5-5.0) g/dL Globulin 3.4 (1.7-4.1) g/dL Albumin/Globulin Ratio 1.2 (1.0-2.8) Procalcitonin 0.25 (<0.5) ng/mL Urine RBC (0-5/HPF) Urine WBC (0-5/HPF) Ur Squamous Epith Cells Urine Bacteria (None) Ur Culture Indicated? Micro UA Comment 07/29/18 07/29/18 Range/Units 17:42 Unknown WBC (4.5-11.0) X10^3/uL RBC (4.0-5.2) X10^6/uL Hgb (12.0-16.0) g/dL Hct (36-46) % MCV (80-100) fL MCH (26-34) PG MCHC (30-36) % RDW (11.6-14.8) % Plt Count (150-400) X10^3/uL Neut % (Auto) (50-75) % Lymph % (Auto) (25-40) % [place] % (Auto) (3-14) % Eos % (Auto) (2-4) % Baso % (Auto) (0-2) % Neut # (Auto) (1353-2680) /uL RBC Morphology Poikilocytosis Anisocytosis Macrocytosis ESR (0-20) MM/HR Sodium (137-145) mmol/L Potassium (3.4-5.1) mmol/L Chloride (98-107) mmol/L Carbon Dioxide (22-32) mmol/L BUN (7-17) mg/dL Creatinine (0.52-1.04) mg/dL Estimated GFR (>60) mL/min BUN/Creatinine Ratio (6-22) Glucose (80-110) mg/dL Lactate 0.5 L (0.7-2.1) mmol/L Calcium (8.4-10.2) mg/dL Total Bilirubin (0.2-1.3) mg/dL AST (14-36) IU/L ALT (9-52) IU/L Alkaline Phosphatase (38-126) U/L C-Reactive Protein (<1.0) mg/dL Total Protein (6.3-8.2) g/dL Albumin (3.5-5.0) g/dL Globulin (1.7-4.1) g/dL Albumin/Globulin Ratio (1.0-2.8) Procalcitonin (<0.5) ng/mL Urine RBC 0-1/hpf (0-5/HPF) Urine WBC 10-30/hpf H (0-5/HPF) Ur Squamous Epith Cells 0-1 /hpf Urine Bacteria Moderate (10-30) H (None) Ur Culture Indicated? Specimen cultured Micro UA Comment Not Reportable Urine Dip Bedside Urine Glucose Negative Bedside Urine Bilirubin - Negative Bedside Urine Ketone - Negative Urine Specific [place] 1.015 Bedside Urine Occult Blood +/- Bedside Urine pH 6.0 Bedside Urine Protein - Negative Bedside Urine Urobilinogen - Negative Bedside Urine Nitrite - Negative Bedside Urine Leukocytes +++ [address] scan - head: Radiologist's impression: [address] [address] [address] Scan Report Signed Patient: Emani Leiva LMR#: [id number] : 2Acct:[id number] Age/Sex: 67 / FDate of Service: 07/29/18 Loc: ED Accession Number: [id number] Procedure: CT head/brain wo con Ordering Provider: Cynthia Kennedy D.O. PROCEDURE: CT HEAD/BRAIN WO CON INDICATIONS: altered mental status, weakness TECHNIQUE: Noncontrast 4.5 mm thick angled axial sections acquired from the foramen magnum to the vertex, with coronal and sagittal reformats. For radiation dose reduction, the following was used: automated exposure control, adjustment of mA and/or kV according to patient size. COMPARISON: None. FINDINGS: Image quality: Excellent. CSF spaces: Basal cisterns are patent. No extra-axial fluid collections. The ventricles are symmetric in size and shape. Brain: No intracranial bleeds or masses. There is cerebral volume loss for age, with resultant ventricular and sulcal prominence. There are periventricular and deep white matter chronic small vessel ischemic changes. There is intracranial internal carotid artery atherosclerosis. Skull and face: Calvarium and visualized facial bones appear intact, without suspicious lesions. Partially visualized bilateral alix bullosa. Sinuses: Visualized sinuses and mastoids are clear. IMPRESSION: No acute intracranial process. Dictated by: Ricardo Lanza M.D. on 07/29/2018 at 19:52 Approved by: Ricardo Lanza M.D. on 07/29/2018 at 19:55 Chest x-ray: Radiologist's impression: [address] [address] XRay Report Signed Patient: Emani Leiva LMR#: [id number] : [id number] Age/Sex: 67 / FDate of Service: 07/29/18 Loc: ED Accession Number: [id number] Procedure: XR chest 1V Ordering Provider: Melisa Koo D.O. PROCEDURE: XR CHEST 1V INDICATIONS: fever TECHNIQUE: One view of the chest was acquired. COMPARISON: [facility], XR CHEST 1V, 07/14/2018, 16:40. FINDINGS: Surgical changes and devices: Surgical fixation of the right humerus partially visualized. Lumbar vertebroplasty Lungs and pleura: No pleural effusions or pneumothorax. Lungs are clear. Mediastinum: Mediastinal contours appear normal. Heart size is normal. Bones and chest wall: No suspicious bony lesions. Overlying soft tissues appear unremarkable. IMPRESSION: No acute consolidation Dictated by: Ricardo Lanza M.D. on 07/29/2018 at 18:41 Approved by: Ricardo Lanza M.D. on 07/29/2018 at 18:42 Right elbow xray: Radiologist's impression: [address] [address] XRay Report Signed Patient: Emani Leiva LMR#: [id number] : 2At:[id number] Age/Sex: 67 / FDate of Service: 07/29/18 Loc: ED Accession Number: [id number] Procedure: XR elbow RT min 3V Ordering Provider: Melisa Koo D.O. PROCEDURE: XR ELBOW RT MIN 3V INDICATIONS: fever, hardware TECHNIQUE: 3 -views of the elbow were acquired. COMPARISON: [facility], XR ELBOW RT 2V, 07/11/2018, 20:34. FINDINGS: Bones: No fractures or dislocations. No suspicious bony lesions. Plate and screw fixation of the right humerus and elbow arthroplasty. Hardware appears intact. Lucency adjacent to the cement bone interface, as well as a hardware in the proximal ulna however these are technically age-indeterminate findings given the absence of comparison studies. Soft tissues: No elbow joint effusion. No suspicious soft tissue calcifications. IMPRESSION: Hardware intact however lucency at the cement bone interface and bone hardware interface of the proximal ulnar component raises the possibility of loosening or infection. However, given the absence of prior comparison studies, postoperative appearance cannot be excluded. Triple phase bone scan could be performed to further assess Dictated by: Ricardo Lanza M.D. on 07/29/2018 at 18:43 Approved by: Ricardo Lanza M.D. on 07/29/2018 at 18:46 Prior Elbow Xray: Radiologist's impression: [place] [address] XRay Report Signed Patient: Emani Leiva LMR#: [id number] : 2Acct:[id number] Age/Sex: 67 / FDate of Service: 07/11/18 Loc: ED Accession Number: [id number] Procedure: XR elbow RT 2V Ordering Provider: Gaurav Hodge PROCEDURE: XR ELBOW RT 2V INDICATIONS: Pain to right elbow TECHNIQUE: 3 views of the elbow were acquired. COMPARISON: None. FINDINGS: Bones: Elbow arthroplasty has been performed. Hardware is intact. There is lucency surrounding several of the screws within the mid and distal humerus, which may indicate loosening/infection. No fractures or dislocations. No suspicious bony lesions. Soft tissues: No elbow joint effusion. No suspicious soft tissue calcifications. IMPRESSION: Elbow arthroplasty. Lucency surrounding the mid and distal humeral hardware, which may indicate loosening, or infection. Nonemergent bone scan may be helpful for further assessment. Dictated by: Jl Downs M.D. on 07/11/2018 at 21:15 Approved by: Jl Downs M.D. on 07/11/2018 at 21:16 ECG Data Attestation: I personally reviewed and interpreted this ECG as follows: Prior ECG tracings: available for review Interpretation: Sinus rhythm with a ventricular rate of 80, P are 192, QRS of 88 and QTC of 405. Patient has nonspecific change. Patient has a prior EKG from 07/14/2018 that appear similar. MDM Narrative Medical decision making narrative: Patient's episodes of syncope or decreased mental status/falls have been going on for several months starting after her son committed suicide. She also states today that she may have taken some additional oxycodone and gabapentin and isn't sure. It sounds like this was accidental and not intentional. Patient denies doing this frequently or regularly. Per her she has also been occasionally very fearful and anxious and is herself denying any current depression but does states that she gets sad frequently. This may be contributing to some symptoms. She has been in the hospital multiple times secondary to these falls as well as fracturing her clavicle and elbow and being transferred to [facility] for repair. Patient states that the elbowed continues to cause pain. She is frequently asking for pain medication although will fall asleep afterwards. Patient elbow x-ray does show some lucency but this is also noted on a x-ray from 07/11/2018 although today's x-ray read by Radiology states there are no priors for comparison but I am able to view these myself. Patient does have an elevated white count, ESR and sed rate but she has also had cough with productive sputum although a negative chest x-ray. She has also had frequency and dysuria and urgency and has a leukocytosis in her urine. Her procalcitonin today is negative with some although she could have a low-lying infection. Patient's renal function appears slightly elevated but not far off her baseline. Her sodium is slightly decreased at 131 but I would not expect this to cause her level of symptoms. Patient's hemoglobin is down at 9 but she has been in the range from 9-11 over the past 2 months and has not received any blood transfusions. Her platelets are slightly elevated. Patient's EKG shows no new changes. Treating her currently for a UTI which may be contributing to her mental status but is unclear if this is multifactorial or if there are other issues involved. I discussed with the hospitalist we did talk about possibly getting a bone scan at some point as patient has not had 1. She had states that the pain has not been rapidly increasing, she has sometimes felt warmth but not consistently. It is not been swollen recently. She has follow-up on the 06 of August but has not been seen for several weeks. Head CT is negative with no signs of bleed or mass. Patient does not have any signs or symptoms consistent with a meningitis. Plan for observation at this time to allow for further evaluation and workup. Spoke with Olivia who accepts for observation. Discussed patient has received Rocephin and above labs and imaging findings. Discharge Plan Departure Patient Disposition: Admitted as Observation Clinical Impression: Acute UTI, Weakness, Falls frequently Discharge Date/Time: 07/29/18 21:19 Interventions: ED Discharge Assessment Last Done: 07/29/18 21:15 Admit Date/Time: 07/29/18 20:45 Admit Provider: Matias Baker
[2018-07-29 18:36] LABS: Procalcitonin 0.25 ng/mL (<0.5)
--- NOTE | 2018-07-29 18:43 | ED_ITS ---
HPI - Altered Mental Status General Chief Complaint: Altered Mental Status Stated Complaint: Weakness/Confusion/Fever Time Seen by Provider: 07/29/18 17:52 Source: patient, family and old records reviewed Mode of arrival: EMS Limitations: no limitations History of Present Illness HPI narrative: This is a 67-year-old female that comes in for concern of altered mental status. Per patient has had symptoms on and off for several months. Patient will occasionally nod off or pass out intermittently. Sometimes she seems very with it and normal and other times she does not. He also states she sometimes seems very fearful and anxious. She can't seem angry and when trying to call for help she does not want to be transported or evaluated. He states that the symptoms seemed to start when her son by suicide several months ago. Patient states that she has been depressed intermittently but not truly depressed. She states today she thinks she might have taken some additional or a double dose of her oxycodone, gabapentin and stomach medication. Patient states this does not normally happen. Patient states she has had cough with green productive sputum. She has not had any fevers but did feel warm and was sweating overnight. She has not had any chest pain but complains of some abdominal pain. She has not had any nausea or vomiting. She has not had any diarrhea. She has had urinary urgency as well as frequency and dysuria. She did have a fall and had a fracture of her elbow and clavicle and was treated at [facility]. This was secondary to a similar episode. Per she has been like this for the last couple days. He states that he thought she also may have had hallucination, he states that she noted her mother out of the corner of her IV other day as well as her son. Related Data Home Medications Medication Instructions Recorded Confirmed metoprolol tartrate 25 mg PO BID #0 04/24/17 07/29/18 omeprazole 20 mg PO BID 04/19/18 07/29/18 alendronate 1 tab PO QWEEK 06/11/18 07/29/18 gabapentin 600 mg PO TID 06/11/18 07/29/18 oxycodone 5 mg PO Q4-6H PRN 07/29/18 07/29/18 ranitidine HCl 150 mg PO BID 07/29/18 07/29/18 Previous Rx's Medication Instructions Recorded oxycodone-acetaminophen 1 tab PO Q4-6H PRN #20 tab 07/11/18 Allergies Allergy/AdvReac Type Severity Reaction Status Date / Time amitriptyline [AMITRIPTYLINE] Allergy Unknown Verified 04/19/18 09:33 tramadol [TRAMADOL] Allergy Unknown Verified 04/19/18 09:33 Review of Systems Review of Systems All systems reviewed & are unremarkable except as noted in HPI and below Constitutional Reports anorexia, Denies chills, Reports difficulty sleeping, Reports excessive sweating, Denies fever(s), Reports frequent falls, Reports lethargy and Reports weakness Eyes Denies change in vision ENT Ears, Nose, Mouth, and Throat: Denies change in voice, Denies neck pain and Denies other (facial droop) Cardiovascular Denies chest pain, Reports syncope (? ), Denies rapid heart rate, Denies pedal edema, Denies irregular heart rhythm, Denies lightheadedness, Denies palpitations, Denies dyspnea, Denies dyspnea on exertion and Denies orthopnea Respiratory Reports change in phlegm color, Reports chest congestion, Reports cough, Denies hemoptysis, Reports excessive phlegm production (green), Denies dyspnea, Denies dyspnea on exertion, Denies stridor, Denies wheezing and Reports other ( rattling in chest) Gastrointestinal Gastrointestinal: Reports abdominal pain, Denies melena, Denies hematochezia, Denies change in bowel habits, Denies diarrhea, Denies nausea and Denies vomiting Genitourinary Reports urinary frequency, Reports dysuria, Denies flank pain and Reports urinary urgency Musculoskeletal Denies back pain, Reports arthralgias (right elbow from prior fx.), Denies neck pain, Denies numbness and Denies tingling Integumentary/Breasts Denies rash Neurologic Reports abnormal movements (twitches), Reports syncope (? ), Reports frequent falls, Denies focal weakness, Reports memory loss, Denies numbness, Denies tingling and Reports weakness Psychiatric Reports abnormal sleep pattern, Reports anxiety, Reports depression, Reports memory loss, Reports visual hallucinations and Denies suicidal ideation Endocrine Reports excessive sweating and Denies palpitations Allergic/Immunologic Denies wheezing Exam Narrative Exam Narrative: GEN: well nourished, well appearing female, alert and oriented x 3, patient appears to be in mild distress. HEENT: Atraumatic, pupils are pinpoint, extraocular movements are intact, nares are clear, TMs are clear with no fluid, there is no conjunctival pallor. Throat is clear without any exudates, erythema, tonsillar enlargement or uvular deviation, no facial droop. HEART: Regular rate and rhythm without murmur, clicks, rubs. Pulses are equal in upper and lower extremities LUNGS:Lungs decreased bilaterally, no wheezes, rales, crackles, chest moves symmetrically ABD:bowel sounds normal, soft, non-tender, no guarding, rebound, rigidity, no masses noted, no hepatosplenomegaly :No CVA tenderness MSCL: Non-tender, no muscle atrophy, muscles strength 5/5 upper and lower extremities, full range of motion. Patient has atrophy of muscles of the right elbow/forearm, non-tender to palpation, no swelling appreciated, no erythema or warmth appreciated. Patient has full ROM. 2+ radial pulse and normal inspector hairspring truing of hand. NEURO:CN 2-12 intact, sensation normal Initial Vital Signs Initial Vital Signs: Vital Signs Temperature 100.3 F H 07/29/18 17:17 Pulse Rate 98 H 07/29/18 17:17 Respiratory Rate 12 07/29/18 17:17 Blood Pressure 105/60 07/29/18 17:17 Pulse Oximetry 100 07/29/18 17:17 Course Orders Ordered: ED Orders 07/29/18 18:46 CT head/brain wo con Stat 07/29/18 18:50 EKG-12 Lead Stat 07/29/18 19:07 Urine Microscopic Stat 07/29/18 21:39 Consult to Discharge Planning Routine Consult to Physical Therapy Evaluate & Treat 07/30/18 NM bone scan multiple areas Routine 07/30/18 06:00 Basic Metabolic Panel DAILY Complete Blood Count AUTO DIFF DAILY Copper Routine Folate Routine Iron Profile (w/ % Saturation) Routine Magnesium DAILY Vitamin B12 Routine 07/31/18 06:00 Basic Metabolic Panel DAILY Complete Blood Count AUTO DIFF DAILY Magnesium DAILY 08/01/18 06:00 Basic Metabolic Panel DAILY Complete Blood Count AUTO DIFF DAILY Magnesium DAILY Acetaminophen (Tylenol) 1,000 mg PO Q8H PRN PRN Reason: As Needed for Fever/Mild Pain Albuterol/Ipratropium (Duoneb) 3 ml INH RTQ6HR PRN PRN Reason: Shortness Of Breath Bisacodyl (Dulcolax) 10 mg [place] DAILY PRN PRN Reason: Constipation Docusate Sodium (Colace) 100 mg PO BID LACY Enoxaparin Sodium (Lovenox) 40 mg SUBCUT DAILY LACY Sodium Chloride (Normal Saline 0.9%) 1,000 mls @ 150 mls/hr IV CONT LACY Last Admin: 07/29/18 22:00 Dose: 100 mls/hr Pantoprazole Sodium (Protonix) 40 mg PO 0600 LACY Discontinued Medications Sodium Chloride (Normal Saline 0.9%) 1,000 mls @ 1,000 mls/hr IV BOLUS ONE Stop: 07/29/18 18:24 Last Infusion: 07/29/18 20:45 Dose: 1,000 mls/hr Admin: 07/29/18 19:22 Dose: 1,000 mls/hr Sodium Chloride (Normal Saline 0.9%) 500 mls @ 1,000 mls/hr IV BOLUS ONE Stop: 07/29/18 19:18 Last Infusion: 07/29/18 21:18 Dose: 1,000 mls/hr Admin: 07/29/18 20:48 Dose: 1,000 mls/hr Ceftriaxone Sodium/Dextrose (Rocephin) 1 gm in 50 mls @ 100 mls/hr IV NOW ONE Stop: 07/29/18 20:20 Last Infusion: 07/29/18 20:42 Dose: 100 mls/hr Admin: 07/29/18 19:59 Dose: 100 mls/hr Ketorolac Tromethamine (Toradol) 30 mg IV NOW ONE Stop: 07/29/18 17:26 Last Admin: 07/29/18 19:22 Dose: Not Given Vital Signs - 8 hr 07/29/18 19:44 07/29/18 21:15 07/29/18 21:30 Temperature 98.2 F Pulse Rate 74 80 82 Respiratory Rate 14 18 Blood Pressure 108/56 L 101/65 Blood Pressure [Right Arm] 104/54 L Pulse Oximetry 96 97 97 07/29/18 22:13 07/30/18 01:00 07/30/18 01:10 Temperature 98.2 F Pulse Rate 83 Respiratory Rate 19 Blood Pressure 93/56 L Blood Pressure [Right Arm] Pulse Oximetry 97 97 98 MDM - Altered Mental Status Differential Diagnosis Likely altered mental status and delirium Lab Data Attestation: I reviewed the patient's lab results. Result diagrams: 12/11/18 17:42 07/29/18 17:42 Lab Results 07/29/18 07/29/18 07/29/18 Range/Units 17:42 17:42 17:42 WBC 16.6 H (4.5-11.0) X10^3/uL RBC 2.89 L (4.0-5.2) X10^6/uL Hgb 9.3 L (12.0-16.0) g/dL Hct 28.2 L (36-46) % MCV 97.5 (80-100) fL MCH 32.2 (26-34) PG MCHC 33.0 (30-36) % RDW 20.9 H (11.6-14.8) % Plt Count 433 H (150-400) X10^3/uL Neut % (Auto) 88.4 H (50-75) % Lymph % (Auto) 5.3 L (25-40) % [place] % (Auto) 5.2 (3-14) % Eos % (Auto) 0.8 L (2-4) % Baso % (Auto) 0.3 (0-2) % Neut # (Auto) 96194 H (1866-9932) /uL RBC Morphology See below Poikilocytosis 1+ H Anisocytosis 1+ H Macrocytosis 1+ H ESR 65 H (0-20) MM/HR Sodium 131 L (137-145) mmol/L Potassium 4.2 (3.4-5.1) mmol/L Chloride 98 (98-107) mmol/L Carbon Dioxide 19 L (22-32) mmol/L BUN 30 H (7-17) mg/dL Creatinine 1.60 H (0.52-1.04) mg/dL Estimated GFR 32.2 L (>60) mL/min BUN/Creatinine Ratio 18.8 (6-22) Glucose 114 H (80-110) mg/dL Lactate (0.7-2.1) mmol/L Calcium 8.9 (8.4-10.2) mg/dL Total Bilirubin 0.2 (0.2-1.3) mg/dL AST 26 (14-36) IU/L ALT 23 (9-52) IU/L Alkaline Phosphatase 123 (38-126) U/L C-Reactive Protein 2.4 H (<1.0) mg/dL Total Protein 7.6 (6.3-8.2) g/dL Albumin 4.2 (3.5-5.0) g/dL Globulin 3.4 (1.7-4.1) g/dL Albumin/Globulin Ratio 1.2 (1.0-2.8) Procalcitonin 0.25 (<0.5) ng/mL Urine RBC (0-5/HPF) Urine WBC (0-5/HPF) Ur Squamous Epith Cells Urine Bacteria (None) Ur Culture Indicated? Micro UA Comment 07/29/18 07/29/18 Range/Units 17:42 Unknown WBC (4.5-11.0) X10^3/uL RBC (4.0-5.2) X10^6/uL Hgb (12.0-16.0) g/dL Hct (36-46) % MCV (80-100) fL MCH (26-34) PG MCHC (30-36) % RDW (11.6-14.8) % Plt Count (150-400) X10^3/uL Neut % (Auto) (50-75) % Lymph % (Auto) (25-40) % [place] % (Auto) (3-14) % Eos % (Auto) (2-4) % Baso % (Auto) (0-2) % Neut # (Auto) (6573-8649) /uL RBC Morphology Poikilocytosis Anisocytosis Macrocytosis ESR (0-20) MM/HR Sodium (137-145) mmol/L Potassium (3.4-5.1) mmol/L Chloride (98-107) mmol/L Carbon Dioxide (22-32) mmol/L BUN (7-17) mg/dL Creatinine (0.52-1.04) mg/dL Estimated GFR (>60) mL/min BUN/Creatinine Ratio (6-22) Glucose (80-110) mg/dL Lactate 0.5 L (0.7-2.1) mmol/L Calcium (8.4-10.2) mg/dL Total Bilirubin (0.2-1.3) mg/dL AST (14-36) IU/L ALT (9-52) IU/L Alkaline Phosphatase (38-126) U/L C-Reactive Protein (<1.0) mg/dL Total Protein (6.3-8.2) g/dL Albumin (3.5-5.0) g/dL Globulin (1.7-4.1) g/dL Albumin/Globulin Ratio (1.0-2.8) Procalcitonin (<0.5) ng/mL Urine RBC 0-1/hpf (0-5/HPF) Urine WBC 10-30/hpf H (0-5/HPF) Ur Squamous Epith Cells 0-1 /hpf Urine Bacteria Moderate (10-30) H (None) Ur Culture Indicated? Specimen cultured Micro UA Comment Not Reportable Urine Dip Bedside Urine Glucose Negative Bedside Urine Bilirubin - Negative Bedside Urine Ketone - Negative Urine Specific [place]art 1.015 Bedside Urine Occult Blood +/- Bedside Urine pH 6.0 Bedside Urine Protein - Negative Bedside Urine Urobilinogen - Negative Bedside Urine Nitrite - Negative Bedside Urine Leukocytes +++ [address] scan - head: Radiologist's impression: [address] [address] [address] Scan Report Signed Patient: Emani Leiva LMR#: [id number] : 2Acct:[id number] Age/Sex: 67 / FDate of Service: 07/29/18 Loc: ED Accession Number: [id number] Procedure: CT head/brain wo con Ordering Provider: Cynthia Kennedy D.O. PROCEDURE: CT HEAD/BRAIN WO CON INDICATIONS: altered mental status, weakness TECHNIQUE: Noncontrast 4.5 mm thick angled axial sections acquired from the foramen magnum to the vertex, with coronal and sagittal reformats. For radiation dose reduction, the following was used: automated exposure control, adjustment of mA and/or kV according to patient size. COMPARISON: None. FINDINGS: Image quality: Excellent. CSF spaces: Basal cisterns are patent. No extra-axial fluid collections. The ventricles are symmetric in size and shape. Brain: No intracranial bleeds or masses. There is cerebral volume loss for age , with resultant ventricular and sulcal prominence. There are periventricular and deep white matter chronic small vessel ischemic changes. There is intracranial internal carotid artery atherosclerosis. Skull and face: Calvarium and visualized facial bones appear intact, without suspicious lesions. Partially visualized bilateral alix bullosa. Sinuses: Visualized sinuses and mastoids are clear. IMPRESSION: No acute intracranial process. Dictated by: Ricardo Lanza M.D. on 07/29/2018 at 19:52 Approved by: Ricardo Lanza M.D. on 07/29/2018 at 19:55 Chest x-ray: Radiologist's impression: [address] [address] XRay Report Signed Patient: Emani Leiva LMR#: [id number] : [facility]:[id number] Age/Sex: 67 / FDate of Service: 07/29/18 Loc: ED Accession Number: [id number] Procedure: XR chest 1V Ordering Provider: Melisa Koo D.O. PROCEDURE: XR CHEST 1V INDICATIONS: fever TECHNIQUE: One view of the chest was acquired. COMPARISON: [facility], XR CHEST 1V, 07/14/2018, 16:40. FINDINGS: Surgical changes and devices: Surgical fixation of the right humerus partially visualized. Lumbar vertebroplasty Lungs and pleura: No pleural effusions or pneumothorax. Lungs are clear. Mediastinum: Mediastinal contours appear normal. Heart size is normal. Bones and chest wall: No suspicious bony lesions. Overlying soft tissues appear unremarkable. IMPRESSION: No acute consolidation Dictated by: Ricardo Lanza M.D. on 07/29/2018 at 18:41 Approved by: Ricardo Lanza M.D. on 07/29/2018 at 18:42 Right elbow xray: Radiologist's impression: [address] [address] XRay Report Signed Patient: Emani Leiva LMR#: [id number] : 2At:[id number] Age/Sex: 67 / FDate of Service: 07/29/18 Loc: ED Accession Number: [id number] Procedure: XR elbow RT min 3V Ordering Provider: Melisa Koo D.O. PROCEDURE: XR ELBOW RT MIN 3V INDICATIONS: fever, hardware TECHNIQUE: 3 -views of the elbow were acquired. COMPARISON: [facility], XR ELBOW RT 2V, 07/11/2018, 20:34. FINDINGS: Bones: No fractures or dislocations. No suspicious bony lesions. Plate and screw fixation of the right humerus and elbow arthroplasty. Hardware appears intact. Lucency adjacent to the cement bone interface, as well as a hardware in the proximal ulna however these are technically age-indeterminate findings given the absence of comparison studies. Soft tissues: No elbow joint effusion. No suspicious soft tissue calcifications. IMPRESSION: Hardware intact however lucency at the cement bone interface and bone hardware interface of the proximal ulnar component raises the possibility of loosening or infection. However, given the absence of prior comparison studies, postoperative appearance cannot be excluded. Triple phase bone scan could be performed to further assess Dictated by: Ricardo Lanza M.D. on 07/29/2018 at 18:43 Approved by: Ricardo Lanza M.D. on 07/29/2018 at 18:46 Prior Elbow Xray: Radiologist's impression: [place] [address] XRay Report Signed Patient: Emani Leiva LMR#: [id number] : 2Acct:[id number] Age/Sex: 67 / FDate of Service: 07/11/18 Loc: ED Accession Number: [id number] Procedure: XR elbow RT 2V Ordering Provider: Gaurav Hodge PROCEDURE: XR ELBOW RT 2V INDICATIONS: Pain to right elbow TECHNIQUE: 3 views of the elbow were acquired. COMPARISON: None. FINDINGS: Bones: Elbow arthroplasty has been performed. Hardware is intact. There is lucency surrounding several of the screws within the mid and distal humerus, which may indicate loosening/infection. No fractures or dislocations. No suspicious bony lesions. Soft tissues: No elbow joint effusion. No suspicious soft tissue calcifications. IMPRESSION: Elbow arthroplasty. Lucency surrounding the mid and distal humeral hardware, which may indicate loosening, or infection. Nonemergent bone scan may be helpful for further assessment. Dictated by: Jl Downs M.D. on 07/11/2018 at 21:15 Approved by: Jl Downs M.D. on 07/11/2018 at 21:16 ECG Data Attestation: I personally reviewed and interpreted this ECG as follows: Prior ECG tracings: available for review Interpretation: Sinus rhythm with a ventricular rate of 80, P are 192, QRS of 88 and QTC of 405. Patient has nonspecific change. Patient has a prior EKG from 07/14/2018 that appear similar. MDM Narrative Medical decision making narrative: Patient's episodes of syncope or decreased mental status/falls have been going on for several months starting after her son committed suicide. She also states today that she may have taken some additional oxycodone and gabapentin and isn't sure. It sounds like this was accidental and not intentional. Patient denies doing this frequently or regularly. Per her she has also been occasionally very fearful and anxious and is herself denying any current depression but does states that she gets sad frequently. This may be contributing to some symptoms. She has been in the hospital multiple times secondary to these falls as well as fracturing her clavicle and elbow and being transferred to [facility] for repair. Patient states that the elbowed continues to cause pain. She is frequently asking for pain medication although will fall asleep afterwards. Patient elbow x-ray does show some lucency but this is also noted on a x-ray from 07/11/2018 although today's x-ray read by Radiology states there are no priors for comparison but I am able to view these myself. Patient does have an elevated white count, ESR and sed rate but she has also had cough with productive sputum although a negative chest x-ray. She has also had frequency and dysuria and urgency and has a leukocytosis in her urine. Her procalcitonin today is negative with some although she could have a low-lying infection. Patient's renal function appears slightly elevated but not far off her baseline. Her sodium is slightly decreased at 131 but I would not expect this to cause her level of symptoms. Patient's hemoglobin is down at 9 but she has been in the range from 9-11 over the past 2 months and has not received any blood transfusions. Her platelets are slightly elevated. Patient's EKG shows no new changes. Treating her currently for a UTI which may be contributing to her mental status but is unclear if this is multifactorial or if there are other issues involved. I discussed with the hospitalist we did talk about possibly getting a bone scan at some point as patient has not had 1. She had states that the pain has not been rapidly increasing, she has sometimes felt warmth but not consistently. It is not been swollen recently. She has follow-up on the 06 of August but has not been seen for several weeks. Head CT is negative with no signs of bleed or mass. Patient does not have any signs or symptoms consistent with a meningitis. Plan for observation at this time to allow for further evaluation and workup. Spoke with Olivia who accepts for observation. Discussed patient has received Rocephin and above labs and imaging findings. Discharge Plan Departure Patient Disposition: Admitted as Observation Clinical Impression: Acute UTI, Weakness, Falls frequently Discharge Date/Time: 07/29/18 21:19 Interventions: ED Discharge Assessment Last Done: 07/29/18 21:15 Admit Date/Time: 07/29/18 20:45 Admit Provider: Matias Baker
--- NOTE | 2018-07-29 18:46 | DI.CT.S_ITS ---
PROCEDURE: CT HEAD/BRAIN WO CON INDICATIONS: altered mental status, weakness TECHNIQUE: Noncontrast 4.5 mm thick angled axial sections acquired from the foramen magnum to the vertex, with coronal and sagittal reformats. For radiation dose reduction, the following was used: automated exposure control, adjustment of mA and/or kV according to patient size. COMPARISON: None. FINDINGS: Image quality: Excellent. CSF spaces: Basal cisterns are patent. No extra-axial fluid collections. The ventricles are symmetric in size and shape. Brain: No intracranial bleeds or masses. There is cerebral volume loss for age, with resultant ventricular and sulcal prominence. There are periventricular and deep white matter chronic small vessel ischemic changes. There is intracranial internal carotid artery atherosclerosis. Skull and face: Calvarium and visualized facial bones appear intact, without suspicious lesions. Partially visualized bilateral alix bullosa. Sinuses: Visualized sinuses and mastoids are clear. IMPRESSION: No acute intracranial process. Dictated by: Ricardo Lanza M.D. on 07/29/2018 at 19:52 Approved by: Ricardo Lanza M.D. on 07/29/2018 at 19:55
[2018-07-29 19:22] LABS: RBC Urine 0-1/HPF (0-5/HPF); Squamous Epithelial Cell Urine 0-1 /HPF; WBC Urine 10-30/HPF (0-5/HPF)
[2018-07-29] MEDS: SODIUM CHLORIDE 0.9% 1,000 ML 1000 ML IV (19:22)
[2018-07-29 19:23] LABS: Bacteria Urine Moderate (10-30); Culture Indicated Urine Specimen Cultured
[2018-07-29 19:44] VITALS: BP 104/54; PULSE 74; RESP 14; O2SAT 96
[2018-07-29] MEDS: CEFTRIAXONE 1 GM/50 ML FROZ.PIGGY IV (19:59)
[2018-07-29] MEDS: SODIUM CHLORIDE 0.9% 500 ML 1000 ML IV (20:48)
[2018-07-29 20:57] VITALS: BMI 22.9
[2018-07-29 21:15] VITALS: BP 108/56; PULSE 80; O2SAT 97
[2018-07-29 21:30] VITALS: BP 101/65; PULSE 82; RESP 18; TEMP 36.8; O2SAT 97
[2018-07-29] MEDS: SODIUM CHLORIDE 0.9% 1,000 ML 100 ML IV (22:00)
--- NOTE | 2018-07-29 22:09 | PM.HP.1 ---
History of Present Illness Date Patient Seen: 07/29/18 Time Patient Seen: 22:21 Chief complaint: Weakness/Confusion/Fever Narrative: HPI is obtained via reviewe of records and direct patient interview. Patient is noted to have degree of confusion. She has poor and inconsistent historian The patient is a 67-year-old female with PMH significant for osteoporosis, gastritis, h/o GIB, chronic pain (h/o fibromyalgia, neuropathy), opioid dependence (previously concern for drug seeking behavior), opioid induced constipation, re-current syncopal events, and PRIOR tobacco dependence. Patient w/ multiple concerns. Patient presented to the ED via EMS arrival on 07/29/2018 at 1717. The patient presents with altered mental status, triage note states ?patient reports possibly doubling up on oxycodone.? triage notes indicate that patient was found by EMS sitting in upright position with confusion. Patient reports going to bed on 07/28 in her usual state of health. She is unable to recall the events that transpired prior to hospital presentation; however, she does recall visit by home health who felt that she was too somnolent and unable to wake up. Patient is known to have opioid dependence. Follows w/ main medicine. Reports last visit one month ago. Known to have pain management contract. Currently reports taking oxycodone 5 mg QID, gabapentin 600 mg TID, and percocet. Previously on carisoprodolol, reports this medication d/c one month ago. Denies use of analgesics, specifically tylenol and OTC NSAIDs. Patient complaints of constant right elbow pain w/ associated sensation of heat and intermittent paresthesia of right fingers. Known to have sustained a significant fracture in the early part of May of right upper extremity requiring extensive surgical repair over injuries (hospitalized x10 days at [facility]). Since the aforementioned event she has not experienced any further falls or injuries. Patient presented to the ED on 07/12 with complaints of right elbow pain, during that visit she was discharged home and urged to follow up with Orthopedic surgery. Patient's records indicate that she had an appointment on 07/16/18 w/ outpatient orthopedic surgery; however, for reasons that are not clear at the moment, she was unable to follow up and reports having a hard time reaching the outpatient office. Patient presented to the ED on 07/15/2018 as she was believed to have had a syncopal or near syncopal event. ED evaluation attributed the event to vasovagal response and potential dehydration. she was discharged and asked to follow up with her PCP for an outpatient Holter monitor. Patient denies experiencing head or neck pain, chest pain, palpitations, dizziness, lightheadedness, or syncopal events. Denies nausea, vomiting, diarrhea or constipation. Reports fair appetite and eating 3 meals daily; however, also notes a 25 lbs weight loss over the past month. Reports intermittent abdominal discomfort, which is localized to the epigastric area of the abdomen and described to have a burning quality. Notes associated symptoms of dyspepsia and abdominal distention. Reports worsening abdominal discomfort after eating spicy food. Reports her last bowel movement weeks ago. Denies back and flank pain. Reports a three day history of suprapubic tenderness, dysuria, frequency, and urinary incontinence (x1 episode on am of 07/29). Patient was treated for UTI in May 2018, at that time urine culture was positive for MRSA with multi-drug resistant to ciprofloxacin and oxacillin. ED Work-Up Presenting VS revealed T 100.3*F, BP 105/60, HR 98, RR 12, SpO2 100% on RA. Per triage noted to have decreased responsiveness, weakness, and lethargy. GCS 14. UA revealed leukocyte esterase, urine WBC 10-30, and urine bacteria (moderate). Pertinet initial labs: WBC 16.6, Hgb 9.3, Na 131, CO2 19, sCR 1.6, lactate 0.5, CRP 2.4, ESR 65. Urine dipstick w/ WBC and bacteria. CT head negative for an acute intracranial process. CXR unremarkable for acute cardiopulmonary findings. Elbow XR revealed lucency at the cement bone interface and bone hardware interface of the proximal ulnar component, raising the possibility of loosening or infection. Patient History Medical History Chronic pain (Acute) GI bleeding (Acute) Family & Social History Social History: household members significant other Prior Living Arrangements House Currently lives in a house with a significant other. Reports attending to her own care needs. Ambulates independently without a use of an assistive device. Safety & Behavioral: Feels Safe in Current Yes Environment Been Physically Hurt or No Threatened By a Person Suicidal Ideation Description None Suicide Plan Description No Plan Tobacco & Substance use: Smoking Status Former smoker. H/O tobacco dependence 50+ years, 1/2 to 1 ppd, quit in 2016. alcohol intake Denies current use of EtOH. Known to have prior [id number] alcohol use in the past. No known h/o alcohol dependence. alcohol intake frequency N/A, denies Substance Use Type Denies current use Meds Home Medications Medication Instructions Recorded Confirmed Type metoprolol tartrate 25 mg PO BID #0 04/24/17 07/29/18 History omeprazole 20 mg PO BID 04/19/18 07/29/18 History alendronate 1 tab PO QWEEK 06/11/18 07/29/18 History gabapentin 600 mg PO TID 06/11/18 07/29/18 History oxycodone-acetaminophen 1 tab PO Q4-6H PRN #20 tab 07/11/18 07/29/18 Rx oxycodone 5 mg PO Q4-6H PRN 07/29/18 07/29/18 History ranitidine HCl 150 mg PO BID 07/29/18 07/29/18 History Allergies Allergy/AdvReac Type Severity Reaction Status Date / Time amitriptyline [AMITRIPTYLINE] Allergy Unknown Verified 04/19/18 09:33 tramadol [TRAMADOL] Allergy Unknown Verified 04/19/18 09:33 Review of Systems Review of Systems All systems reviewed & are unremarkable except as noted in HPI and below Exam Vital Signs (past 8 hours): - 07/29/18 17:17 07/29/18 19:44 07/29/18 21:15 Temperature 100.3 F H Pulse Rate 98 H 74 80 Respiratory Rate 12 14 Blood Pressure 105/60 108/56 L Blood Pressure [Right Arm] 104/54 L Pulse Oximetry 100 96 97 07/29/18 21:30 Temperature 98.2 F Pulse Rate 82 Respiratory Rate 18 Blood Pressure 101/65 Blood Pressure [Right Arm] Pulse Oximetry 97 Oxygen Delivery Method Room Air Narrative Exam Narrative: Constitutional: NAD, seen at bedside Neurologic: somnolent, difficulty staying awake Oriented to person. States location as [facility]. Notes month as October initially, then corrects herself and notes month as July. Notes date as July 27. Slow to answer questions. Speech has mild degree of slurring; however, able to understand most of the content. Head: NC, AT Eyes: pupils sluggish Ears: external ears normal, no otorrhea Nose: external nose normal, no rhinorrhea or epistaxis Throat: dry MM, oropharynx w/o exudate Neck: no masses, lymphadenopathy, or JVD Chest / Respiratory: equal chest rise, unlabored respiratory effort, no dyspnea or tachypnea, SpO2 99% on RA Heart / CV: S1S2, no murmur Abdomen / GI: soft, + suprapubic tenderness, ND, normoactive BS, no hepatosplenomegally : no CVA tenderness Peripheral / Vascular: warm to touch, DP and PT pulses palpable, LLE trace non-pitting edema / RLE no edema Right Upper Extremity: no effusion, no edema or erythema, surgical incision is well healed. Sensation present of hand and fingers. Radial pulse palpable. Musc: full ROM of upper and lower extremities, adequate muscle tone and bulk, Gait is steady. Observed to have adequate strength and ability to get out of bed walk to the bathroom with stand by assistance only. Balance is mildly impaired. Skin: no ecchymosis or suspicious lesions / ulcers Objective Labs Result Diagrams: 07/29/18 17:42 07/29/18 17:42 Labs: Laboratory Results - last 24 hr 07/29/18 07/29/18 07/29/18 17:42 17:42 17:42 WBC 16.6 H RBC 2.89 L Hgb 9.3 L Hct 28.2 L MCV 97.5 MCH 32.2 MCHC 33.0 RDW 20.9 H Plt Count 433 H Neut % (Auto) 88.4 H Lymph % (Auto) 5.3 L Hancock % (Auto) 5.2 Eos % (Auto) 0.8 L Baso % (Auto) 0.3 Neut # (Auto) 71509 H RBC Morphology See below Poikilocytosis 1+ H Anisocytosis 1+ H Macrocytosis 1+ H ESR 65 H Sodium 131 L Potassium 4.2 Chloride 98 Carbon Dioxide 19 L BUN 30 H Creatinine 1.60 H Estimated GFR 32.2 L BUN/Creatinine Ratio 18.8 Glucose 114 H Lactate Calcium 8.9 Total Bilirubin 0.2 AST 26 ALT 23 Alkaline Phosphatase 123 C-Reactive Protein 2.4 H Total Protein 7.6 Albumin 4.2 Globulin 3.4 Albumin/Globulin Ratio 1.2 Procalcitonin 0.25 Urine RBC Urine WBC Ur Squamous Epith Cells Urine Bacteria Ur Culture Indicated? Micro UA Comment 07/29/18 07/29/18 17:42 Unknown WBC RBC Hgb Hct MCV MCH MCHC RDW Plt Count Neut % (Auto) Lymph % (Auto) Hancock % (Auto) Eos % (Auto) Baso % (Auto) Neut # (Auto) RBC Morphology Poikilocytosis Anisocytosis Macrocytosis ESR Sodium Potassium Chloride Carbon Dioxide BUN Creatinine Estimated GFR BUN/Creatinine Ratio Glucose Lactate 0.5 L Calcium Total Bilirubin AST ALT Alkaline Phosphatase C-Reactive Protein Total Protein Albumin Globulin Albumin/Globulin Ratio Procalcitonin Urine RBC 0-1/hpf Urine WBC 10-30/hpf H Ur Squamous Epith Cells 0-1 /hpf Urine Bacteria Moderate (10-30) H Ur Culture Indicated? Specimen cultured Micro UA Comment Not Reportable Assessment & Plan Plan: Assessment/Plan Narrative: Complicated UTI without hematuria h/o + urine cx for MRSA w/ multidrug resistance to ciprofloxacin and oxacillin received a dose of rocephin in ED - UA, urine cx pending - Continue rocephin - Supportive care Concern for prosthetic joint infection, XR elbow loosening vs infection s/p orthopedic surgery (05/2018) w/ orthopedic hardware. + abnormal joint imaging, + sepsis criteria, elevated CRP and ESR - consult orthopedic surgery - blood cx pending - continue rocephin 2 gm daily - NM bone scan in am - supportive care / pain control Sepsis Meets sepsis criteria. T 100.3 (borderline), HR > 90, leukocytosis, acute metabolic encephalopathy, and FE - blood and urine cx pending, to be followed - CXR unremarkable - Received IVF bolus in ED, continue maintenance rate - NS at 100 ml / hr - Strict I/O Acute encephalopathy Potentially multi-factorial... sepsis (UTI vs prosthetic joint infection), opioid toxicity, hyponatremia, macrocytic anemia - neuro checks / LOC Q4H - abx to treat underlying infection - check B12 and folate; will also check thiamine and copper deficiency - continuous O2 monitoring / keep SpO2 > 92%, concern for hypoxemia in the setting of opioid dependence FE on CKD, baseline sCr 0.9 to 1.2 sCr 1.6 on presentation, likely multi-factorial - sepsis, volume depletion, concern for hypoxemia in the setting of opioid toxicity, FE, hyponatremia - IVF - Treat underlying infection - Avoid nephrotoxic agents, optimize renal perfusion - On a BB at home (reason - CAD, tachycardia ?), will hold to optimize renal perfusion, BP borderline - strict I/O, trend renal fx Macrocytic anemia. No active s/s of bleeding. Plt 433. Does have a hx of prior thrombocytosis. - check B12 and folate - will also check iron panel (recent h/o iron infusions) Pain, acute vs chronic - Hold NSAIDs and gabapentin d/t FE - No opioids d/t acute encephalopathy, concern for opioid toxicity, and respiratory depression - Lidocaine patch and Tylenol 1000 mg Q8H prn; non-pharmacological pain management - ice pack Opioid dependence H/o of chronic pain, fibromyalgia. S/p RUE fracture - 05/2018. Patient denies alleviation of pain at any point. There is a concern for opioid dependence and abuse. Refuses to consider alternative pain management options. Inconsistent in her account of weather oxycodone is effective in pain relief. Conflicting account of weather oxycodone is helpful. Elusive in her account of the medication dose and how frequently taken. Patient is somnolent, difficulty keeping awake during interview process, had to be awakened on numerous occasions. RR 12. Specifically requests oxycodone, which was declined out of concern for opioid induced respiratory depression and significant somnolence. - urine drug screen and EtOH level Patient does exhibit a degree of encephalopathy. I have discussed a code status w/ her; however, it will need to be revisited when mentation improves to baseline. At present time wishes to be a full code status. Reports having a formal health directive. Notes her son and daughter as DPOAs. Home medications reviewed and reconciled. VTE prophylasix w/ SCDs and lovenox. PPI for GI prophylaxis.
[2018-07-29 22:13] VITALS: O2SAT 97
--- NOTE | 2018-07-29 23:46 | PC.NURSE ---
Evening shift 2119: Pt brought up via stretcher by ER SHELLFISH MANAGER. Pt able to transfer from stretcher to bed SBA. Pt is very lethargic. Falls asleep during conversations.
[2018-07-30] VITALS (7 sets, daily range): BP systolic 93–108; BP diastolic 49–56; PULSE 75–85; RESP 16–19; TEMP 36.7–37; O2SAT 96–99
--- NOTE | 2018-07-30 | DI.NM.S_ITS ---
PROCEDURE: NM BONE 3 PHASE RADIOPHARMACEUTICAL: 23.2 mCi Tc-99m MDP IV. INDICATIONS: abnormal elbow x-ray, needs triple phase bone scan TECHNIQUE: Multiple bone scintigrams were obtained after intravenous injection of Tc-99m MDP, including flow, blood pool, and delayed images centered to the region of interest. COMPARISON: [facility], CR, XR ELBOW RT 2V, 07/11/2018, 20:34. [facility], CR, XR ELBOW RT MIN 3V, 07/29/2018, 18:05. FINDINGS: A triple phase bone scan is obtained, including flow, blood pool and delayed images centered to elbows. There is normal vascular activity on flow and blood pool images to the elbows. Delayed images demonstrate foci of increased activity around the right elbow, most likely secondary to postsurgical change. There is increased activity in wrists bilaterally and the left elbow, consistent with degenerative joint disease. Intense uptake in the left wrist at the injection site is noted. IMPRESSION: 1. The scintigraphic findings favor post surgical change but early prosthesis loosening or infection cannot be excluded. Dictated by: Bishop Richter M.D. on 07/30/2018 at 16:11 Approved by: Bishop Richter M.D. on 07/30/2018 at 17:41
--- NOTE | 2018-07-30 02:18 | PC.NURSE ---
0110 Pt. sound asleep, but opened her eyes with verbal & tactile stimuli. No S/S of pain noted. Will cont. POC & monitor.
--- NOTE | 2018-07-30 06:29 | PC.NURSE ---
Pt. wide awake now, ambulated to the & voided. Clean catch urine sample obtained. C/O Rt. elbow pain, but declined some Tylenol. Will cont. POC & monitor.
[2018-07-30] MEDS: PANTOPRAZOLE 20 MG TABLET 40 MG PO (06:31)
[2018-07-30 06:39] LABS: Appearance Urine UA CLEAR; Bilirubin Urine UA NEGATIVE (NEGATIVE); Color Urine UA YELLOW; Glucose Urine UA NEGATIVE (Normal); Ketones Urine UA NEGATIVE (NEGATIVE); Leukocyte Esterase Urine UA 3+ (NEGATIVE); Nitrite Urine UA NEGATIVE (Negative); Occult Blood Urine UA TRACE-LYSED (Negative); Protein Urine UA NEGATIVE (Negative); Urobilinogen Urine UA 0.2 E.U./dL (0.2)
[2018-07-30 06:52] LABS: Basophils Percent Auto 0.8 % (0-2); Eosinophils Percent Auto 1.7 % (2-4); Hemoglobin 9.3 g/dL (12.0-16.0); Lymphocytes Percent Auto 10.7 % (25-40); Mean Corpuscular HGB Conc 33.4 % (30-36); Mean Corpuscular Hemoglobin 32.8 PG (26-34); Mean Corpuscular Volume 98.3 fL (80-100); Monocytes Percent Auto 7.3 % (3-14); Neutrophils Absolute Auto 11000 /uL (3000-5900); Neutrophils Percent Auto 79.5 % (50-75); Platelet Count 389 X10^3/uL (150-400); Red Blood Cell Count 2.85 X10^6/uL (4.0-5.2); Red Cell Distribution Width 21.2 % (11.6-14.8); White Blood Cell Count 13.8 X10^3/uL (4.5-11.0)
[2018-07-30 06:54] LABS: Add Manual Diff / Slide Review SLIDE REVIEW
[2018-07-30 06:55] LABS: HEMOLYSIS < 15 (0-50); Iron 34 ug/dL (37-170)
[2018-07-30 06:56] LABS: BUN Creatinine Ratio 17.7 (6-22); Blood Urea Nitrogen 23 mg/dL (7-17); Calcium 8.5 mg/dL (8.4-10.2); Carbon Dioxide 16 mmol/L (22-32); Chloride 108 mmol/L (98-107); Glucose 63 mg/dL (80-110); HEMOLYSIS < 15 (0-50); Magnesium 2.3 mg/dL (1.6-2.3); Potassium 4.1 mmol/L (3.4-5.1); Sodium 137 mmol/L (137-145)
[2018-07-30 07:06] LABS: Percent Iron Saturation 19 % (15-50); Total Iron Binding Capacity 176 ug/dL (265-497); Transferrin 134 mg/dL (206-381)
[2018-07-30 07:06] LABS: RBC Urine 1-5/HPF (0-5/HPF)
[2018-07-30 07:07] LABS: Bacteria Urine Moderate (10-30); WBC Urine 30-100/HPF (0-5/HPF)
[2018-07-30 08:02] LABS: Folate > 20.0 ng/mL (2.76-20.0); Vitamin B12 > 1000 pg/mL (239-931)
[2018-07-30 08:09] LABS: Anisocytosis 1+; Poikilocytosis 1+
--- NOTE | 2018-07-30 08:14 | PM.DS.1 ---
History of Present Illness Date Patient Seen: 07/30/18 Time Patient Seen: 07:40 Chief complaint: Weakness/Confusion/Fever Narrative: History of Present Illness Date Patient Seen: 07/29/18 Time Patient Seen: 22:21 Chief complaint: Weakness/Confusion/Fever Narrative: HPI is obtained via reviewe of records and direct patient interview. Patient is noted to have degree of confusion. She has poor and inconsistent historian The patient is a 67-year-old female with PMH significant for osteoporosis, gastritis, h/o GIB, chronic pain (h/o fibromyalgia, neuropathy), opioid dependence (previously concern for drug seeking behavior), opioid induced constipation, re-current syncopal events, and PRIOR tobacco dependence. Patient w/ multiple concerns. Patient presented to the ED via EMS arrival on 07/29/2018 at 1717. The patient presents with altered mental status, triage note states ?patient reports possibly doubling up on oxycodone.? triage notes indicate that patient was found by EMS sitting in upright position with confusion. Patient reports going to bed on 07/28 in her usual state of health. She is unable to recall the events that transpired prior to hospital presentation; however, she does recall visit by home health who felt that she was too somnolent and unable to wake up. Patient is known to have opioid dependence. Follows w/ main medicine. Reports last visit one month ago. Known to have pain management contract. Currently reports taking oxycodone 5 mg QID, gabapentin 600 mg TID, and percocet. Previously on carisoprodolol, reports this medication d/c one month ago. Denies use of analgesics, specifically tylenol and OTC NSAIDs. Patient complaints of constant right elbow pain w/ associated sensation of heat and intermittent paresthesia of right fingers. Known to have sustained a significant fracture in the early part of May of right upper extremity requiring extensive surgical repair over injuries (hospitalized x10 days at [facility]). Since the aforementioned event she has not experienced any further falls or injuries. Patient presented to the ED on 07/12 with complaints of right elbow pain, during that visit she was discharged home and urged to follow up with Orthopedic surgery. Patient's records indicate that she had an appointment on 07/16/18 w/ outpatient orthopedic surgery; however, for reasons that are not clear at the moment, she was unable to follow up and reports having a hard time reaching the outpatient office. Patient presented to the ED on 07/15/2018 as she was believed to have had a syncopal or near syncopal event. ED evaluation attributed the event to vasovagal response and potential dehydration. she was discharged and asked to follow up with her PCP for an outpatient Holter monitor. Patient denies experiencing head or neck pain, chest pain, palpitations, dizziness, lightheadedness, or syncopal events. Denies nausea, vomiting, diarrhea or constipation. Reports fair appetite and eating 3 meals daily; however, also notes a 25 lbs weight loss over the past month. Reports intermittent abdominal discomfort, which is localized to the epigastric area of the abdomen and described to have a burning quality. Notes associated symptoms of dyspepsia and abdominal distention. Reports worsening abdominal discomfort after eating spicy food. Reports her last bowel movement weeks ago. Denies back and flank pain. Reports a three day history of suprapubic tenderness, dysuria, frequency, and urinary incontinence (x1 episode on am of 07/29). Patient was treated for UTI in May 2018, at that time urine culture was positive for MRSA with multi-drug resistant to ciprofloxacin and oxacillin. ED Work-Up Presenting VS revealed T 100.3*F, BP 105/60, HR 98, RR 12, SpO2 100% on RA. Per triage noted to have decreased responsiveness, weakness, and lethargy. GCS 14. UA revealed leukocyte esterase, urine WBC 10-30, and urine bacteria (moderate). Pertinet initial labs: WBC 16.6, Hgb 9.3, Na 131, CO2 19, sCR 1.6, lactate 0.5, CRP 2.4, ESR 65. Urine dipstick w/ WBC and bacteria. CT head negative for an acute intracranial process. CXR unremarkable for acute cardiopulmonary findings. Elbow XR revealed lucency at the cement bone interface and bone hardware interface of the proximal ulnar component, raising the possibility of loosening or infection. Discharge Providers Date of admission: 07/29/18 20:45 Consults: 07/29/18 21:39 Consult to Discharge Planning Routine Comment: Consult to Physical Therapy Evaluate & Treat Comment: weakness, deconditioning Physician Instructions: Evaluate and Treat 07/30/18 06:18 Consult to Orthopedic Surgery Routine Comment: Consulting Provider: Sergey Granados Reason for consultation: abnormal elbow xray, concern for loosening / septic joint Has provider been notified: No Discharge provider: Joyce Mixon DO Discharge Date: 07/30/18 Summary Discharge Diagnosis: LIKELY MRSA UTI; DC ON DOXY POSS HARDWARE MALFUNCTION TO RT ELBOW; BONE SCAN TODAY; OUTPATIENT MANAGEMENT CHRONIC PAIN SYNDROME FIBROMYALGIA LEUKOCYTOSIS ; IMPROVING ON ABX; VANCO GIVEN X 1 ; DC ON DOXY POSS MET ENCEPHALOPATHY ; RESOLVED Hospital Course: - PATIENT ADMITTED TO THE ED WITH ENCEPHALOPATHY REPORTEDLY - THIS WAS LIKELY ASSOCIATED WITH UTI - SHE WAS TREATED WITH IV ABX WITH VANCO BEINGNGIVEN THIS AM - HER PRIOR CX GREW MRSA AND THIS COURRENT IS ALREADY GROWING GRAM POSITIVE COCCI WHICH SHE SUSPECT IS MRSA ONCE AGAIN - PRIOR SENSITIVITY REPORT NOTED AND PATIENT WILL BE DC ON DOXY WITH AN EXTENDED TREATMENT - SHE HAD SOME REPORTED SX TO HER RT ELBOW, A BONE SCAN ORDERED AND COULD BE FOLLOW OUTPT BY HER PROVIDERS - SHE PREFERRED TO BE DC TODAY AND I AGREED; RX WRITTEN ADN ORDERS IN CPOE Status at Discharge Cognitive/behavioral status at discharge: STABLE AND AT BASELINE MENTALLY Functional status at discharge: independent ambulation Overall status at discharge: patient is back to baseline Time Spent with Patient Greater than 30 minutes Exam Vital Signs (past 8 hours): - 07/30/18 01:00 07/30/18 01:10 07/30/18 05:00 Temperature 98.2 F Pulse Rate 83 Respiratory Rate 19 Blood Pressure 93/56 L Pulse Oximetry 97 98 98 07/30/18 05:20 07/30/18 08:02 Temperature 98.5 F 98.6 F Pulse Rate 81 85 Respiratory Rate 18 16 Blood Pressure 101/52 L 106/56 L Pulse Oximetry 98 98 Oxygen Delivery Method Room Air Oxygen Flow Rate 0 Narrative Exam Narrative: NO ACUTE DISTRESS. PATIENT IS ALERT ORIENTED X3. VITAL SIGNS STABLE HEAD ATRAUMATIC NORMOCEPHALIC NECK : SUPPLE WITHOUT ADENOPATHY NO CAROTID BRUITS EYE: EOMI, PERRLA, NORMAL CONJUNCTIVA; NO JAUNDICE CHEST: REGULAR RATE. NO RUBS. PMI IS NON DISPLACED. NO MURMURS; NORMAL S1-S2 PULMONARY: DECREASED BS OVER THE BASES. MILD BIBASILAR CRACKLES NOTED; NO INCREASED DULLNESS TO PERCUSSION ABDOMEN: SOFT. NONTENDER. NONDISTENDED. BOWEL SOUNDS ARE PRESENT IN ALL 4 QUADRANTS. NO MASS. EXTREMITIES: NO EDEMA.. NO CYANOSIS CLUBBING NOTED. DISCOMFORTS WITH ACTIVE AND PASSIVE EXTENSION OF RT ELBOW NEURO: CRANIAL NERVES 2-12 GROSSLY INTACT. NO FOCAL NEUROLOGICAL DEFICIT NOTED. MSK: NORMAL RANGE OF MOTION FOR AGE. NO JOINT EFFUSION. SKIN: NORMAL FOR ETHNICITY; NO ECCHYMOSIS. NO LESION. GOOD TURGOR.; NO RASHES : NORMAL EXTERNAL GENITALIA. PSYCH : APPROPRIATE MOOD AND AFFECT. ALERT AWAKE ORIENTED X3 Objective Labs Result Diagrams: 07/30/18 06:14 07/30/18 06:14 Labs: Laboratory Results - last 24 hr 07/29/18 07/29/18 07/29/18 17:42 17:42 17:42 WBC 16.6 H RBC 2.89 L Hgb 9.3 L Hct 28.2 L MCV 97.5 MCH 32.2 MCHC 33.0 RDW 20.9 H Plt Count 433 H Neut % (Auto) 88.4 H Lymph % (Auto) 5.3 L [place] % (Auto) 5.2 Eos % (Auto) 0.8 L Baso % (Auto) 0.3 Neut # (Auto) 93737 H RBC Morphology See below Poikilocytosis 1+ H Anisocytosis 1+ H Macrocytosis 1+ H ESR 65 H Sodium 131 L Potassium 4.2 Chloride 98 Carbon Dioxide 19 L BUN 30 H Creatinine 1.60 H Estimated GFR 32.2 L BUN/Creatinine Ratio 18.8 Glucose 114 H Lactate Calcium 8.9 Magnesium Iron TIBC % Saturation Transferrin Total Bilirubin 0.2 AST 26 ALT 23 Alkaline Phosphatase 123 C-Reactive Protein 2.4 H Total Protein 7.6 Albumin 4.2 Globulin 3.4 Albumin/Globulin Ratio 1.2 Vitamin B12 Folate Procalcitonin 0.25 Urine Color Urine Appearance Urine pH Ur Specific [place] Urine Protein Urine Glucose (UA) Urine Ketones Urine Occult Blood Urine Nitrate Urine Bilirubin Urine Urobilinogen Ur Leukocyte Esterase Urine RBC Urine WBC Ur Squamous Epith Cells Urine Bacteria Ur Culture Indicated? Micro UA Comment 07/29/18 07/29/18 07/30/18 17:42 Unknown 06:14 WBC 13.8 H RBC 2.85 L Hgb 9.3 L Hct 28.0 L MCV 98.3 MCH 32.8 MCHC 33.4 RDW 21.2 H Plt Count 389 Neut % (Auto) 79.5 H Lymph % (Auto) 10.7 L [place] % (Auto) 7.3 Eos % (Auto) 1.7 L Baso % (Auto) 0.8 Neut # (Auto) 43924 H RBC Morphology Not Reportable Poikilocytosis 1+ H Anisocytosis 1+ H Macrocytosis ESR Sodium Potassium Chloride Carbon Dioxide BUN Creatinine Estimated GFR BUN/Creatinine Ratio Glucose Lactate 0.5 L Calcium Magnesium Iron TIBC % Saturation Transferrin Total Bilirubin AST ALT Alkaline Phosphatase C-Reactive Protein Total Protein Albumin Globulin Albumin/Globulin Ratio Vitamin B12 Folate Procalcitonin Urine Color Urine Appearance Urine pH Ur Specific [place] Urine Protein Urine Glucose (UA) Urine Ketones Urine Occult Blood Urine Nitrate Urine Bilirubin Urine Urobilinogen Ur Leukocyte Esterase Urine RBC 0-1/hpf Urine WBC 10-30/hpf H Ur Squamous Epith Cells 0-1 /hpf Urine Bacteria Moderate (10-30) H Ur Culture Indicated? Specimen cultured Micro UA Comment Not Reportable 07/30/18 07/30/18 07/30/18 06:14 06:14 06:14 WBC RBC Hgb Hct MCV MCH MCHC RDW Plt Count Neut % (Auto) Lymph % (Auto) [place] % (Auto) Eos % (Auto) Baso % (Auto) Neut # (Auto) RBC Morphology Poikilocytosis Anisocytosis Macrocytosis ESR Sodium 137 Potassium 4.1 Chloride 108 H Carbon Dioxide 16 L BUN 23 H Creatinine 1.30 H Estimated GFR 41.0 L BUN/Creatinine Ratio 17.7 Glucose 63 L Lactate Calcium 8.5 Magnesium 2.3 Iron 34 L TIBC 176 L % Saturation 19 Transferrin 134 L Total Bilirubin AST ALT Alkaline Phosphatase C-Reactive Protein Total Protein Albumin Globulin Albumin/Globulin Ratio Vitamin B12 > 1000 H Folate > 20.0 H Procalcitonin Urine Color Urine Appearance Urine pH Ur Specific [place] Urine Protein Urine Glucose (UA) Urine Ketones Urine Occult Blood Urine Nitrate Urine Bilirubin Urine Urobilinogen Ur Leukocyte Esterase Urine RBC Urine WBC Ur Squamous Epith Cells Urine Bacteria Ur Culture Indicated? Micro UA Comment 07/30/18 06:20 WBC RBC Hgb Hct MCV MCH MCHC RDW Plt Count Neut % (Auto) Lymph % (Auto) [place] % (Auto) Eos % (Auto) Baso % (Auto) Neut # (Auto) RBC Morphology Poikilocytosis Anisocytosis Macrocytosis ESR Sodium Potassium Chloride Carbon Dioxide BUN Creatinine Estimated GFR BUN/Creatinine Ratio Glucose Lactate Calcium Magnesium Iron TIBC % Saturation Transferrin Total Bilirubin AST ALT Alkaline Phosphatase C-Reactive Protein Total Protein Albumin Globulin Albumin/Globulin Ratio Vitamin B12 Folate Procalcitonin Urine Color Yellow Urine Appearance Clear Urine pH 6.0 Ur Specific [place] 1.010 Urine Protein Negative Urine Glucose (UA) Negative Urine Ketones Negative Urine Occult Blood Trace-lysed Urine Nitrate Negative Urine Bilirubin Negative Urine Urobilinogen 0.2 Ur Leukocyte Esterase 3+ H Urine RBC 1-5/hpf Urine WBC 30-100/hpf H Ur Squamous Epith Cells Urine Bacteria Moderate (10-30) H Ur Culture Indicated? Micro UA Comment Not Reportable Discharge Plan Discharge Plan Patient Disposition: Home Discharge comment: DC TO SNF [facility] REG DIET F/U WITH ORTHO AND PCP 3-10 DAYS Discharge Med Rec/Prescriptions Prescriptions: New doxycycline hyclate 100 mg tablet 100 mg PO BID 14 Days Qty: 28 RF: 0 Continue metoprolol tartrate 25 MG tablet 25 mg PO BID Qty: 0 RF: 0 oxycodone-acetaminophen 5-325 mg tablet 1 tab PO Q4-6H PRN (Reason: pain) Qty: 20 RF: 0 omeprazole 20 mg capsule,delayed release(DR/EC) 20 mg PO BID RF: 0 alendronate 70 mg tablet 1 tab PO QWEEK RF: 0 gabapentin 300 mg capsule 600 mg PO TID RF: 0 ranitidine HCl 150 mg tablet 150 mg PO BID RF: 0 oxycodone 5 mg tablet 5 mg PO Q4-6H PRN (Reason: pain) RF: 0 Provider Discharge Instructions Diet: Regular Skin/Wound/Dressing Care Report to your healthcare provider any signs of infection, such as:: chills, fever, night sweats, increased pain, unusual drainage and unusual redness Visit Report/Discharge Packet Visit Report Forms: Stroke Signs & Symptoms Discharge Data Attending Provider: Matias Baker Admit Date/Time: 07/29/18 20:45
[2018-07-30] MEDS: DOCUSATE 100 MG CAPSULE PO (09:13)
[2018-07-30] MEDS: ENOXAPARIN 40 MG/0.4 ML SYRINGE SUBCUT (09:13)
--- NOTE | 2018-07-30 10:10 | PT.IIE ---
Medical History (Last Reviewed 07/30/18 @ 00:42 by NICOLE Albrecht) Chronic pain (Acute) GI bleeding (Acute) Physical Therapy Inpatient Evaluation/Re-Eval M1 PT/OT-IP Prior Functional Status Start: 07/30/18 10:49 Freq: NEEDED Status: Active Protocol: Document 07/30/18 10:10 AB (Rec: 07/30/18 11:38 AB [id number]) Medical Review Prior Functional Status Medical History Reviewed Yes Communication able to make needs known Mobility and Gait stated that she is modified independent with ambulation without AD indoors but stated that her boyfriend assists her for outdoor ambulation providing AZURE ARCHITECT. Activities of Daily Living and IADL's stated that her boyfriend assists her with everything; house chores, dressing, showers Social History Household Members significant other caregiver Living Arrangements House Number of Floors (Floors) One Floor Number of Stairs To Enter/Railing? has 2 steps without rails ( boyfriend provided AZURE ARCHITECT) Home Environment Standard Height Toilet Tub/Shower Home Equipment Manual Wheelchair Tub Transfer Bench Employment Status Retired Additional Social History Comment has a caregiver that comes in to assist with light house work M2 PT-IP Current Condition Start: 07/30/18 10:49 Freq: NEEDED Status: Active Protocol: Document 07/30/18 10:10 AB (Rec: 07/30/18 11:38 AB [email or web address]) Physical Therapy Current Condition Current Condition Evaluation Date 07/30/18 Treatment Diagnosis UTI; weakness Onset Date 07/29/18 M3 PT-IP Subjective Start: 07/30/18 10:49 Freq: NEEDED Status: Active Protocol: Document 07/30/18 10:10 AB (Rec: 07/30/18 11:38 AB [email or web address]) Subjective Physical Therapy Visit Type Type Initial Evaluation Visit Start Time 10:10 Visit Stop Time 10:31 Total Visit Minutes 21 Number of CATHEAD WORKER Visits 0 Physical Therapy Visit Comments Patient Comments I feel fine; all I need is just a good sleep Patient Goals to go home today Therapy Pain Assessment Pain When Pain Assessed At Rest Pain Present Pain Present Pain Reported Location Right Arm Intensity 9 Scale Used Numeric (1 - 10) Pain Management Techniques Re-positioning M4 PT-IP Mobility and Gait Start: 07/30/18 10:49 Freq: NEEDED Status: Active Protocol: Document 07/30/18 10:10 AB (Rec: 07/30/18 11:38 AB [email or web address]) PT-Bed Mobility Assessment Supine to Sit Supine to Sit Independent Sit to Supine Sit to Supine Independent PT-Transfer Assessment Sit to and From Stand Sit to and from Stand Independent Equipment Transfer Assistive Device Gait Belt Orthotic/Prosthetic Devices or Brace: No Transfers Transfer Destination Toilet Transfer Technique pt ambulated to the toilet without AD Transfer Ability Level of Assist Standby Assistance Comments Mobility Comments pt was able to ambulate without AD to the toilet SBA and completed toileting SBA. pt ambulated to the sink SBA and was able to maintain standing SBA while completing handwashing. Gait Assessment Gait Gait Assistance Required: Standby Assistance Distance (Feet) 25 Able to Maintain Weight Bearing Status Yes During Gait Assistive Devices Assistive Device None Gait Belt Orthotic/Prosthetic Devices or Brace: No Gait Deviations General Gait Pattern Decreased Stride Length Decreased Feet Clearance Factors Limiting Gait Function Factors Limiting Gait Function Decreased Activity Tolerance Decreased Strength Difficulty Following Directions Limited Range of Motion Pain Poor Balance Poor Safety Awareness Comments Gait Comments pt completed short distance ambulation in room without AD ~ 25 ft x 2 + 10 ft SBA. pt stated that her boyfriend is available 11/03 to assist her and another caregiver that can assist her as well Stair Climbing Assessment Evaluation Level of Assist On Stairs Minimal Assistance 1 Person Assistance Technique/Endurance Stair Climbing Direction Ascend and Descend Stair Climbing Technique Step to Step Number of Steps Climbed 1 Query Text: Stair Climbing Set # Repetitions (reps) 4 Comments Stair Climbing Comments pt completed up/down step AZURE ARCHITECT min A. pt stated that her boyfriend usually assists her with steps. PT-Balance Assessment Sitting Balance and Reactions Static Sitting Balance Ability Good Dynamic Sitting Balance Ability Good Standing Balance and Reactions Static Standing Balance Ability Fair Dynamic Standing Balance Ability Fair Device Used without AD M5 PT-IP Objective Assessments Start: 07/30/18 10:49 Freq: NEEDED Status: Active Protocol: Document 07/30/18 10:10 AB (Rec: 07/30/18 11:38 AB [email or web address]) Orientation Orientation/Cognition Level of Alertness Alert Orientation Name Safety Awareness Decreased Safety Awareness Memory Description Short Term Impaired Half-Way Impaired Gross Range of Motion Lower Extremity ROM Assessment Within Functional Limits Strength Lower Extremity Strength Assessment Within Functional Limits Muscle Tone Muscle Tone WNL Yes M6 PT-IP Treatment Start: 07/30/18 10:49 Freq: NEEDED Status: Active Protocol: Document 07/30/18 10:10 AB (Rec: 07/30/18 11:38 AB [email or web address]) Physical Therapy Treatment Education Education Provided Safety M7 PT-IP Assessment and Plan Start: 07/30/18 10:49 Freq: NEEDED Status: Active Protocol: Document 07/30/18 10:10 AB (Rec: 07/30/18 11:38 AB [email or web address]) PT Summary Assessment and Plan Potential Rehabilitation Potential Good Status of Condition at Evaluation Stable Summary Impairments Pain ROM Strength Balance Coordination Sensation Cognition Transfers Gait Activity Tolerance Assessment Summary pt is doing well with mobility and is at prior level of function: boyfriend assist pt with mobility and pt only able to ambulate short distances/ inside the house only and has assist from boyfriend for outdoor mobility. Has 24/7 assist at home. PT eval completed and no further PT intervention indicated at this time. Goals Other Goals Pt only seen for PT eval. no further PT intervention indicated. Frequency of Treatment Frequency Of Treatment Discharge Treatment Plan Physical Therapy Treatment Plan Bed Mobility Training Transfer Training Gait Training Therapeutic Exercise Balance Retraining Post Op Education Discharge Planning Hot or Cold Pack Neuromuscular Re-ed Coordination Retraining Manual Therapy Recommendations To Nursing Amount of Assist Needed Standby Assistance Discharge Recommendations PT Discharge Recommendations Home with Assistance
[2018-07-30] MEDS: OXYCODONE IR 5 MG TABLET PO (10:23)
[2018-07-30] MEDS: ACETAMINOPHEN 325 MG TABLET 975 MG PO (10:25)
[2018-07-30] MEDS: VANCOMYCIN 1,000 MG/200 ML FROZ.PIGGY 200 MG IV (11:55)
[2018-07-30] MEDS: HYDROMORPHONE 0.5 MG INJ IV (14:16)
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
[2018-07-30] MEDS: SODIUM CHLORIDE 0.9% FLUSH 10 ML IV (15:56)
[2018-07-30] MEDS: DEXAMETHASONE 10 MG/ML VIAL IV (15:56)
--- NOTE | 2018-07-30 18:10 | PC.NURSE ---
Pt given steroid ivp as ordered (see emar). Encouraged pt and pt's spouse to remain in hospital several house post administration per MD order. Spouse becomes increasingly anxious as time passes and expresses desire for spouse's discharge to be completed. Pt reports some improvement in right upper arm pain following steriod administration. Pt is able to dress with spouse's assistance. Discharge instructions provided to pt and pt's spouse. Last doses of medications reviewed with pt's spouse and questions answered as appropriate. Pt left hospital with all belongings accounted for in stable condition via wheelchair accompanied by spouse and INBOUND CALL CENTER REPRESENTATIVE escort. Scripts (excluding nebulizer and percocet) faxed to [facility] at spouse's request. Pt's spouse takes the lead in obtaining information at discharge and inquiries into pt's medications at discharge. Inquired of spouse if desires bone scan and report to take to follow up appointment. Spouse states will come back at later date to obtain this prior to follow up 08/06. Again, spouse very anxious to exit hospital. Hard copies of prescriptions provided to pt's spouse upon discharge from hospital.
[2018-08-03 23:13] LABS: Vitamin B1 213 nmol/L (78-185)
== END 2018-07-30 17:45 | disposition home or self-care (01) ==
LOC: ED 20:44 → AC 20:46
PROVIDERS: Emergency Medicine; Admitting Provider Nurse Practitioner Gerontology; Emergency Provider Emergency Medicine; Family Provider Family Medicine; Visit Provider Nurse Practitioner Gerontology
DX: N39.0 Urinary tract infection, site not specified (principal); R41.82 Altered mental status, unspecified; R53.1 Weakness; R50.9 Fever, unspecified; G89.4 Chronic pain syndrome; M79.7 Fibromyalgia; G62.9 Polyneuropathy, unspecified; F11.20 Opioid dependence, uncomplicated; K59.03 Drug induced constipation; Z87.891 Personal history of nicotine dependence; R55 Syncope and collapse; D72.829 Elevated white blood cell count, unspecified
CPT/HCPCS: 36415; 70450; 71045; 73080; 78315; 80048; 80053; 80321; 81001; 81003; 81015; 82525; 82607; 82746; 83540; 83550; 83605; 83735; 84145; 84425; 85025; 85651; 86140; 87040; 87077; 87086; 87186; 93005; 93010; 96361; 96365; 97161; 99284; 99285; A9503; G0378; J1100; J1170; J1650; J3370

== ENCOUNTER 2018-08-17 12:09 | Emergency (ER) | payer MEDICARE, MEDICAID, SELFPAY ==
[2018-08-17 12:18] VITALS: BP 177/103; PULSE 84; RESP 16; TEMP 36.5; O2SAT 100; BMI 21.9
--- NOTE | 2018-08-17 12:25 | ED.ABDPAIN ---
HPI - Abdominal Pain <NICOLE Zambrano - Last Filed: 08/17/18 22:07> General Chief Complaint: Abdominal Pain Stated Complaint: GUT PAIN Time Seen by Provider: 08/17/18 12:25 Source: patient Mode of arrival: ambulatory Limitations: no limitations History of Present Illness HPI narrative: 67-year-old female with history of renal insufficiency and is a former smoker here for complaint of epigastric pain on and off over the past several weeks. She reports she has had worsening pain over the past several days. She has a history of having gastric ulcers in the currently taking omeprazole and ranitidine. She reports having a decreased p.o. intake although she is tolerating fluids and food with no vomiting due to the discomfort. She denies any stressors or relievers of her pain. She states that her pain medication is not helping her discomfort. She denies any fevers or chills. She denies any urinary symptoms. She reports that she has had a recent urinary tract infection but is symptoms have resolved. No flank pain. Last bowel movement was this morning and was unremarkable. No other concerns or complaints. She also states that she is passing gas Related Data Home Medications Medication Instructions Recorded Confirmed metoprolol tartrate 25 mg PO BID #0 04/24/17 07/29/18 omeprazole 20 mg PO BID 04/19/18 07/29/18 alendronate 1 tab PO QWEEK 06/11/18 07/29/18 gabapentin 600 mg PO TID 06/11/18 07/29/18 oxycodone 5 mg PO Q4-6H PRN 07/29/18 07/29/18 ranitidine HCl 150 mg PO BID 07/29/18 07/29/18 Previous Rx's Medication Instructions Recorded oxycodone-acetaminophen 1 tab PO Q4-6H PRN #20 tab 07/11/18 albuterol sulfate 2 puff INHALATION Q4-6H PRN #18 07/30/18 gram ipratropium-albuterol 3 ml INHALATION Q6-8H PRN #90 ml 07/30/18 oxycodone-acetaminophen [Percocet] 1 tab PO Q4-6H PRN #20 tab 07/30/18 ondansetron 4 mg PO TID PRN #10 tab 08/17/18 Allergies Allergy/AdvReac Type Severity Reaction Status Date / Time amitriptyline [AMITRIPTYLINE] Allergy Unknown Verified 08/17/18 12:31 tramadol [TRAMADOL] Allergy Unknown Verified 08/17/18 12:31 Review of Systems <NICOLE Zambrano - Last Filed: 08/17/18 22:07> Review of Systems All systems reviewed & are unremarkable except as noted in HPI and below Constitutional Denies chills, Denies fever(s), Denies lethargy and Denies weakness Eyes Denies change in vision, Denies eye discharge, Denies irritation and Denies loss of vision ENT Ears, Nose, Mouth, and Throat: Denies change in voice, Denies neck pain and Denies sore throat Cardiovascular Denies chest pain, Denies irregular heart rhythm, Denies lightheadedness, Denies palpitations, Denies dyspnea, Denies dyspnea on exertion and Denies orthopnea Respiratory Denies cough, Denies dyspnea, Denies dyspnea on exertion and Denies wheezing Gastrointestinal Gastrointestinal: Reports abdominal pain Genitourinary Denies hematuria, Denies flank pain, Denies urinary incontinence and Denies urinary urgency Musculoskeletal Denies neck pain Integumentary/Breasts Denies pruritus, Denies erythema, Denies rash and Denies wounds Neurologic Denies confusion, Denies loss of vision and Denies weakness Psychiatric Denies anxiety, Denies confusion, Denies depression, Denies homicidal ideation and Denies suicidal ideation Endocrine Denies palpitations Hematologic/Lymphatic Denies easy bruising Allergic/Immunologic Denies wheezing Exam <NICOLE Zambrano - Last Filed: 08/17/18 22:07> Initial Vital Signs Initial Vital Signs: Vital Signs Temperature 97.7 F 08/17/18 12:18 Pulse Rate 84 08/17/18 12:18 Respiratory Rate 16 08/17/18 12:18 Blood Pressure 177/103 H 08/17/18 12:18 Pulse Oximetry 100 08/17/18 12:18 Const General: cooperative and well developed Nutritional Appearance: well nourished Orientation: alert, awake, oriented x3 and not confused [facility] Mouth: oral mucosae normal and mucous membranes abnormal Resp Effort & Inspection: normal respiratory effort, able to speak in complete sentences, no respiratory distress and no use of accessory muscles Auscultation: clear to auscultation bilaterally, no rales, no rhonchi and no wheezes Cardio Rate: regular rate Rhythm: regular rhythm Heart Sounds: no click, no gallops, no murmurs and no rubs Pulses: normal peripheral pulses GI Inspection: non-distended Palpation: soft, no hepatosplenomegaly, No guarding, No pulsatile mass and tender (Epigastric tenderness) Auscultation: normal bowel sounds General: No CVA tenderness Skin General: no rashes or lesions noted, No jaundice and No petechiae Neuro General: alert, oriented x3, gait normal and no focal motor deficits Speech: speech normal <Collin Guzman DO - Last Filed: 08/20/18 08:35> Initial Vital Signs Initial Vital Signs: Vital Signs Temperature 97.7 F 08/17/18 12:18 Pulse Rate 84 08/17/18 12:18 Respiratory Rate 16 08/17/18 12:18 Blood Pressure 177/103 H 08/17/18 12:18 Pulse Oximetry 100 08/17/18 12:18 Course <NICOLE Zambrano - Last Filed: 08/17/18 22:07> Orders Ordered: Discontinued Medications Hydromorphone HCl (Dilaudid) 1 mg IV NOW ONE Stop: 08/17/18 13:11 Last Admin: 08/17/18 13:51 Dose: 1 mg Sodium Chloride (Normal Saline 0.9%) 1,000 mls @ 1,000 mls/hr IV BOLUS ONE Stop: 08/17/18 14:08 Last Infusion: 08/17/18 15:59 Dose: 0 mls/hr Admin: 08/17/18 13:51 Dose: 1,000 mls/hr Ondansetron HCl (Zofran) 4 mg IV NOW ONE Stop: 08/17/18 13:11 Last Admin: 08/17/18 13:51 Dose: 4 mg Vital Signs - 8 hr 08/17/18 14:20 08/17/18 16:44 Pulse Rate 71 73 Respiratory Rate 18 18 Blood Pressure [Left Arm] 120/73 113/74 Pulse Oximetry 98 98 <Collin Guzman DO - Last Filed: 08/20/18 08:35> Orders Ordered: Discontinued Medications Hydromorphone HCl (Dilaudid) 1 mg IV NOW ONE Stop: 08/17/18 13:11 Last Admin: 08/17/18 13:51 Dose: 1 mg Sodium Chloride (Normal Saline 0.9%) 1,000 mls @ 1,000 mls/hr IV BOLUS ONE Stop: 08/17/18 14:08 Last Infusion: 08/17/18 15:59 Dose: 0 mls/hr Admin: 08/17/18 13:51 Dose: 1,000 mls/hr Ondansetron HCl (Zofran) 4 mg IV NOW ONE Stop: 08/17/18 13:11 Last Admin: 08/17/18 13:51 Dose: 4 mg Vital Signs - 8 hr 08/17/18 14:20 08/17/18 16:44 Pulse Rate 71 73 Respiratory Rate 18 18 Blood Pressure [Left Arm] 120/73 113/74 Pulse Oximetry 98 98 MDM - Abdominal Pain <NICOLE Zambrano - Last Filed: 08/17/18 22:07> Lab Data Result diagrams: 08/17/18 13:35 08/17/18 13:35 Lab Results 08/17/18 08/17/18 08/17/18 Range/Units 13:35 13:35 14:30 WBC 10.5 (4.5-11.0) X10^3/uL RBC 3.64 L (4.0-5.2) X10^6/uL Hgb 11.9 L (12.0-16.0) g/dL Hct 35.5 L (36-46) % MCV 97.4 (80-100) fL MCH 32.6 (26-34) PG MCHC 33.4 (30-36) % RDW 20.0 H (11.6-14.8) % Plt Count 434 H (150-400) X10^3/uL Neut % (Auto) 79.7 H (50-75) % Lymph % (Auto) 15.7 L (25-40) % Liberty % (Auto) 2.4 L (3-14) % Eos % (Auto) 1.0 L (2-4) % Baso % (Auto) 1.2 (0-2) % Neut # (Auto) 8400 H (0680-5369) /uL Sodium 136 L (137-145) mmol/L Potassium 5.5 H (3.4-5.1) mmol/L Chloride 104 (98-107) mmol/L Carbon Dioxide 21 L (22-32) mmol/L BUN 37 H (7-17) mg/dL Creatinine 1.60 H (0.52-1.04) mg/dL Estimated GFR 32.2 L (>60) mL/min BUN/Creatinine Ratio 23.1 H (6-22) Glucose 98 (80-110) mg/dL Calcium 10.2 (8.4-10.2) mg/dL Total Bilirubin 0.5 (0.2-1.3) mg/dL AST 66 H (14-36) IU/L ALT 103 H (9-52) IU/L Alkaline Phosphatase 127 H (38-126) U/L Total Protein 8.2 (6.3-8.2) g/dL Albumin 4.5 (3.5-5.0) g/dL Globulin 3.7 (1.7-4.1) g/dL Albumin/Globulin Ratio 1.2 (1.0-2.8) Lipase 24 (23-300) U/L Urine RBC None seen (0-5/HPF) Urine WBC 10-30/hpf H (0-5/HPF) Urine Bacteria Many (>30) H (None) Ur Culture Indicated? Specimen cultured Micro UA Comment Not Reportable Point of care testing: Urine Dip Bedside Urine Glucose Negative Bedside Urine Bilirubin - Negative Bedside Urine Ketone - Negative Urine Specific Alkol 1.015 Bedside Urine Occult Blood - Negative Bedside Urine pH 6.0 Bedside Urine Protein - Negative Bedside Urine Urobilinogen - Negative Bedside Urine Nitrite - Negative Bedside Urine Leukocytes + [address] scan - abdomen: Radiologist's impression: [address] [address] [address] Scan Report Signed Patient: Emani Leiva MR#: [id number] : 1950 Acct:[id number] Age/Sex: 67 / F Date of Service: 08/17/18 Loc: ED Accession Number: [id number] Procedure: CT abdomen pelvis w con Ordering Provider: Gaurav Hodge PROCEDURE: CT ABDOMEN PELVIS W CON INDICATIONS: Epigastric pain for several days TECHNIQUE: After the administration of intravenous contrast, 5 mm thick sections acquired from the diaphragm to the symphysis. 5 mm coronal and sagittal reformats were acquired. For radiation dose reduction, the following was used: automated exposure control, adjustment of mA and/or kV according to patient size. COMPARISON: [facility], CT, CT HEAD/BRAIN WO CON, 07/29/2018, 18:41. [facility], CT, CT HEAD/BRAIN WO CON, 07/14/2018, 16:31. [facility], CT, CT ABDOMEN PELVIS W CON, 02/27/2018, 15:35. [facility], CT, CT HEAD/BRAIN WO CON, 02/27/2018, 13:39. FINDINGS: Image quality: Excellent. ABDOMEN: Lung bases: Lung bases are clear. Heart size is normal. There is trace pericardial effusion. Solid organs: Liver is normal in size and enhancement. Gallbladder is surgically absent with resultant intrahepatic and extrahepatic dilatation, with the common bile duct measuring up to 1.3 cm in greatest diameter. No obstructing calculus is identified. Pancreas enhances normally. Spleen is normal in size and enhancement. No adrenal nodules. The left kidney is smaller and hypoenhancing relative to the right, with multiple left renal calcifications measuring up to 2 cm in greatest diameter noted. Peritoneum and bowel: Bowel loops demonstrate normal wall thickness and caliber. No free fluid or air. There is colonic diverticulosis without evidence of acute diverticulitis. The appendix cannot be clearly identified on this exam, but there are no convincing right lower quadrant inflammatory findings to suggest acute appendicitis. Nodes and vessels: No retroperitoneal or mesenteric adenopathy by size criteria. Aorta and inferior vena cava are normal in size. There is moderate calcified and noncalcified plaque with abdominal aorta and branch vessels. Miscellaneous: There is a small fat-containing umbilical hernia. PELVIS: Genitourinary: There is diffuse bladder wall thickening. Miscellaneous: No inguinal hernias or adenopathy. Bones: There are multilevel degenerative changes of the spine. There are multilevel Schmorl's nodes within the thoracolumbar spine. There is mild anterior wedging of the T10 and T12 vertebral bodies. The L2 and L4 vertebral bodies also demonstrate anterior wedge deformities with internal high attenuation material consistent with arthroplasty cement. IMPRESSION: 1. Diffuse bladder wall thickening noted. Correlation with urinalysis suggested to exclude a urinary tract infection. 2. Intrahepatic and extra hepatic biliary ductal dilatation, likely related to post cholecystectomy state. 3. Left kidney is hypoenhancing and smaller than the right kidney with large internal calcifications, with the hypoenhancement having worsened since comparison exam of 02/27/18. This is suggestive of worsening chronic left renal disease. Dictated by: Abdulaziz Chapman M.D. on 08/17/2018 at 15:26 Approved by: Abdulaziz Chapman M.D. on 08/17/2018 at 15:38 [facility] Narrative Medical decision making narrative: CT of the abdomen shows diffuse bladder wall thickening along with positive WBCs inside the urine. Patient has just recently completed a antibiotic regimen for a urinary tract infection. She denies having any dysuria or increased urinary frequency at this time. Will hold on any antibiotic treatment for now. CT of the abdomen also shows some hypo enhancement and smaller than previous CT in February indicates worsening kidney disease. No acute findings on CT to explain her epigastric pain. CBC shows mild anemia with no elevated white count. Chem panel shows hyperkalemia at 5.5. EKG shows normal sinus rhythm no ST elevation or depression no ectopy. No peaked T-waves. Her GFR was decreased at 32 which is consistent with prior lab values. Her creatinine was elevated at 1.6 also consistent with prior lab values. She is prescribed omeprazole and ranitidine she is encouraged to use the omeprazole and reading as prescribed to help with any reflux issues. Follow up with primary care provider this week. If continued epigastric pain and discussion of referral for endoscopy may be warranted. Use currently prescribed pain management regimen as needed for discomfort. She is prescribed Zofran to help with any nausea. Return emergency room for any worsening symptoms. <Collin Guzman, - Last Filed: 08/20/18 08:35> Lab Data Lab Results 08/17/18 08/17/18 08/17/18 Range/Units 13:35 13:35 14:30 WBC 10.5 (4.5-11.0) X10^3/uL RBC 3.64 L (4.0-5.2) X10^6/uL Hgb 11.9 L (12.0-16.0) g/dL Hct 35.5 L (36-46) % MCV 97.4 (80-100) fL MCH 32.6 (26-34) PG MCHC 33.4 (30-36) % RDW 20.0 H (11.6-14.8) % Plt Count 434 H (150-400) X10^3/uL Neut % (Auto) 79.7 H (50-75) % Lymph % (Auto) 15.7 L (25-40) % Liberty % (Auto) 2.4 L (3-14) % Eos % (Auto) 1.0 L (2-4) % Baso % (Auto) 1.2 (0-2) % Neut # (Auto) 8400 H (1104-8198) /uL Sodium 136 L (137-145) mmol/L Potassium 5.5 H (3.4-5.1) mmol/L Chloride 104 (98-107) mmol/L Carbon Dioxide 21 L (22-32) mmol/L BUN 37 H (7-17) mg/dL Creatinine 1.60 H (0.52-1.04) mg/dL Estimated GFR 32.2 L (>60) mL/min BUN/Creatinine Ratio 23.1 H (6-22) Glucose 98 (80-110) mg/dL Calcium 10.2 (8.4-10.2) mg/dL Total Bilirubin 0.5 (0.2-1.3) mg/dL AST 66 H (14-36) IU/L ALT 103 H (9-52) IU/L Alkaline Phosphatase 127 H (38-126) U/L Total Protein 8.2 (6.3-8.2) g/dL Albumin 4.5 (3.5-5.0) g/dL Globulin 3.7 (1.7-4.1) g/dL Albumin/Globulin Ratio 1.2 (1.0-2.8) Lipase 24 (23-300) U/L Urine RBC None seen (0-5/HPF) Urine WBC 10-30/hpf H (0-5/HPF) Urine Bacteria Many (>30) H (None) Ur Culture Indicated? Specimen cultured Micro UA Comment Not Reportable Point of care testing: Urine Dip Bedside Urine Glucose Negative Bedside Urine Bilirubin - Negative Bedside Urine Ketone - Negative Urine Specific Alkol 1.015 Bedside Urine Occult Blood - Negative Bedside Urine pH 6.0 Bedside Urine Protein - Negative Bedside Urine Urobilinogen - Negative Bedside Urine Nitrite - Negative Bedside Urine Leukocytes + 70 Esterase Discharge Plan Departure Patient Disposition: Home Clinical Impression: Hyperkalemia, Abdominal pain Discharge Date/Time: 08/17/18 16:48 Interventions: ED Discharge Assessment Last Done: 08/17/18 16:46 Instructions: DI for Abdominal Pain-Adult Activity Restrictions/Additional Instructions: Laboratory results today indicated elevated potassium. Exterior drinking plenty of fluids. Do not eat bananas or usual Gatorade. CT does show smaller size of the kidney compared to February indicating possible worsening kidney disease. CT does not show causes of her epigastric pain at this time. Recommend taking ranitidine and omeprazole prescriptions as prescribed. use curently prescribed pain management regimen as needed for any discomfort. Zofran is prescribed to help with nausea use as directed. Follow up with primary care provider later this week. Endoscopy may be warranted if symptoms continue. Return emergency room for any worsening symptoms. Prescriptions: New ondansetron 4 mg tablet,disintegrating 4 mg PO TID PRN (Reason: nausea and vomiting) Qty: 10 RF: 0 No Action metoprolol tartrate 25 MG tablet 25 mg PO BID Qty: 0 RF: 0 oxycodone-acetaminophen 5-325 mg tablet 1 tab PO Q4-6H PRN (Reason: pain) Qty: 20 RF: 0 omeprazole 20 mg capsule,delayed release(DR/EC) 20 mg PO BID RF: 0 alendronate 70 mg tablet 1 tab PO QWEEK RF: 0 gabapentin 300 mg capsule 600 mg PO TID RF: 0 ranitidine HCl 150 mg tablet 150 mg PO BID RF: 0 oxycodone 5 mg tablet 5 mg PO Q4-6H PRN (Reason: pain) RF: 0 ipratropium-albuterol 0.5 mg-3 mg(2.5 mg base)/3 mL solution for nebulization 3 ml INHALATION Q6-8H PRN (Reason: shortness of breath or wheezing) Qty: 90 RF: 0 oxycodone-acetaminophen [Percocet] 7.5-325 mg tablet 1 tab PO Q4-6H PRN (Reason: pain) Qty: 20 RF: 0 albuterol sulfate 90 mcg/actuation HFA aerosol inhaler 2 puff INHALATION Q4-6H PRN (Reason: shortness of breath) Qty: 18 RF: 0 Referrals: Luis Hernandez MD [Family Provider] - <Collin Guzman DO - Last Filed: 08/20/18 08:35> [facility] Attestation: I was available for consultation during this patient's emergency department encounter
[2018-08-17 12:59] VITALS: BP 114/71; PULSE 73; RESP 16; O2SAT 100
--- NOTE | 2018-08-17 13:10 | DI.CT.S_ITS ---
PROCEDURE: CT ABDOMEN PELVIS W CON INDICATIONS: Epigastric pain for several days TECHNIQUE: After the administration of intravenous contrast, 5 mm thick sections acquired from the diaphragm to the symphysis. 5 mm coronal and sagittal reformats were acquired. For radiation dose reduction, the following was used: automated exposure control, adjustment of mA and/or kV according to patient size. COMPARISON: [facility], CT, CT HEAD/BRAIN WO CON, 07/29/2018, 18:41. [facility], CT, CT HEAD/BRAIN WO CON, 07/14/2018, 16:31. [facility], CT, CT ABDOMEN PELVIS W CON, 02/27/2018, 15:35. [facility], CT, CT HEAD/BRAIN WO CON, 02/27/2018, 13:39. FINDINGS: Image quality: Excellent. ABDOMEN: Lung bases: Lung bases are clear. Heart size is normal. There is trace pericardial effusion. Solid organs: Liver is normal in size and enhancement. Gallbladder is surgically absent with resultant intrahepatic and extrahepatic dilatation, with the common bile duct measuring up to 1.3 cm in greatest diameter. No obstructing calculus is identified. Pancreas enhances normally. Spleen is normal in size and enhancement. No adrenal nodules. The left kidney is smaller and hypoenhancing relative to the right, with multiple left renal calcifications measuring up to 2 cm in greatest diameter noted. Peritoneum and bowel: Bowel loops demonstrate normal wall thickness and caliber. No free fluid or air. There is colonic diverticulosis without evidence of acute diverticulitis. The appendix cannot be clearly identified on this exam, but there are no convincing right lower quadrant inflammatory findings to suggest acute appendicitis. Nodes and vessels: No retroperitoneal or mesenteric adenopathy by size criteria. Aorta and inferior vena cava are normal in size. There is moderate calcified and noncalcified plaque with abdominal aorta and branch vessels. Miscellaneous: There is a small fat-containing umbilical hernia. PELVIS: Genitourinary: There is diffuse bladder wall thickening. Miscellaneous: No inguinal hernias or adenopathy. Bones: There are multilevel degenerative changes of the spine. There are multilevel Schmorl's nodes within the thoracolumbar spine. There is mild anterior wedging of the T10 and T12 vertebral bodies. The L2 and L4 vertebral bodies also demonstrate anterior wedge deformities with internal high attenuation material consistent with arthroplasty cement. IMPRESSION: 1. Diffuse bladder wall thickening noted. Correlation with urinalysis suggested to exclude a urinary tract infection. 2. Intrahepatic and extra hepatic biliary ductal dilatation, likely related to post cholecystectomy state. 3. Left kidney is hypoenhancing and smaller than the right kidney with large internal calcifications, with the hypoenhancement having worsened since comparison exam of 02/27/18. This is suggestive of worsening chronic left renal disease. Dictated by: Abdulaziz Chapman M.D. on 08/17/2018 at 15:26 Approved by: Abdulaziz Chapman M.D. on 08/17/2018 at 15:38
[2018-08-17] MEDS: ONDANSETRON 4 MG/2 ML INJ IV (13:51)
[2018-08-17] MEDS: HYDROMORPHONE 1 MG INJ IV (13:51)
[2018-08-17] MEDS: SODIUM CHLORIDE 0.9% 1,000 ML 1000 ML IV (13:51)
[2018-08-17 14:05] LABS: Add Manual Diff / Slide Review NO; Basophils Percent Auto 1.2 % (0-2); Hematocrit 35.5 % (36-46); Hemoglobin 11.9 g/dL (12.0-16.0); Lymphocytes Percent Auto 15.7 % (25-40); Mean Corpuscular HGB Conc 33.4 % (30-36); Mean Corpuscular Hemoglobin 32.6 PG (26-34); Mean Corpuscular Volume 97.4 fL (80-100); Monocytes Percent Auto 2.4 % (3-14); Neutrophils Absolute Auto 8400 /uL (1500-7000); Neutrophils Percent Auto 79.7 % (50-75); Platelet Count 434 X10^3/uL (150-400); Red Blood Cell Count 3.64 X10^6/uL (4.0-5.2); White Blood Cell Count 10.5 X10^3/uL (4.5-11.0)
[2018-08-17 14:14] LABS: Alanine Aminotransferase 103 IU/L (9-52); Albumin 4.5 g/dL (3.5-5.0); Albumin Globulin Ratio 1.2 (1.0-2.8); Alkaline Phosphatase 127 U/L (38-126); Aspartate Aminotransferase 66 IU/L (14-36); BUN Creatinine Ratio 23.1 (6-22); Bilirubin Total 0.5 mg/dL (0.2-1.3); Blood Urea Nitrogen 37 mg/dL (7-17); Calcium 10.2 mg/dL (8.4-10.2); Carbon Dioxide 21 mmol/L (22-32); Chloride 104 mmol/L (98-107); Estimated Glomerular Filt Rate 32.2 mL/min (>60); Globulin 3.7 g/dL (1.7-4.1); Glucose 98 mg/dL (80-110); HEMOLYSIS < 15 (0-50); Lipase 24 U/L (23-300); Potassium 5.5 mmol/L (3.4-5.1); Sodium 136 mmol/L (137-145); Total Protein 8.2 g/dL (6.3-8.2)
[2018-08-17 14:20] VITALS: BP 120/73; PULSE 71; RESP 18; O2SAT 98
[2018-08-17 14:44] LABS: RBC Urine None Seen (0-5/HPF)
[2018-08-17 14:53] LABS: Bacteria Urine Many (>30); Culture Indicated Urine Specimen Cultured; WBC Urine 10-30/HPF (0-5/HPF)
[2018-08-17 16:44] VITALS: BP 113/74; PULSE 73; RESP 18; O2SAT 98
== END 2018-08-17 16:48 | disposition home or self-care (01) ==
PROVIDERS: Emergency Provider Nurse Practitioner Family; Family Provider Family Medicine
DX: E87.5 Hyperkalemia (principal); R10.9 Unspecified abdominal pain
CPT/HCPCS: 36415; 74177; 80053; 81003; 81015; 83690; 85025; 87077; 87086; 87186; 93005; 96361; 96374; 96375; 99283; 99285; J1170; J2405; Q9967

== ENCOUNTER 2018-09-18 17:21 | Inpatient (IN) | payer MEDICARE, MEDICAID, SELFPAY ==
[2018-09-18] VITALS (9 sets, daily range): BP systolic 113–159; BP diastolic 65–100; PULSE 90–108; RESP 10–17; TEMP 36.2; O2SAT 98–100; BMI 22.6
--- NOTE | 2018-09-18 18:14 | DI.RAD.S_ITS ---
PROCEDURE: XR CHEST 1V INDICATIONS: sepsis TECHNIQUE: One view of the chest was acquired. COMPARISON: None. FINDINGS: Surgical changes and devices: None. Lungs and pleura: Lungs are clear. No pleural effusions or pneumothorax. Mediastinum: Mediastinal contours appear normal. Heart size is normal. Bones and chest wall: No suspicious bony lesions. Overlying soft tissues appear unremarkable. IMPRESSION: No acute cardiopulmonary findings. Dictated by: Suellen Herrmann M.D. on 09/18/2018 at 18:57 Approved by: Suellen Herrmann M.D. on 09/18/2018 at 18:57
[2018-09-18 18:32] LABS: Add Manual Diff / Slide Review NO; Basophils Absolute Auto 200 /uL (0-100); Basophils Percent Auto 1.8 % (0-2); Eosinophils Absolute Auto 100 /uL (0-450); Eosinophils Percent Auto 0.6 % (2-4); Hematocrit 36.1 % (36-46); Hemoglobin 11.6 g/dL (12.0-16.0); Lymphocytes Absolute Auto 3400 /uL (1100-4500); Lymphocytes Percent Auto 25.5 % (25-40); Mean Corpuscular HGB Conc 32.1 % (30-36); Mean Corpuscular Hemoglobin 31.6 PG (26-34); Mean Corpuscular Volume 98.3 fL (80-100); Monocytes Absolute Auto 600 /uL (0-900); Monocytes Percent Auto 4.7 % (3-14); Neutrophils Absolute Auto 8900 /uL (1500-7000); Neutrophils Percent Auto 67.4 % (50-75); Platelet Count 524 X10^3/uL (150-400); Red Blood Cell Count 3.68 X10^6/uL (4.0-5.2); White Blood Cell Count 13.3 X10^3/uL (4.5-11.0)
--- NOTE | 2018-09-18 18:38 | ED.NEUROSD ---
HPI - Neuro Symptoms/Deficit General Chief Complaint: Neuro Symptoms/Deficit Stated Complaint: LETHARGIC, NOT RESPONDING PROPERLY Time Seen by Provider: 09/18/18 18:13 Source: patient and family Mode of arrival: wheelchair Limitations: altered mental status History of Present Illness HPI Narrative: 67-year-old female, former smoker with history of hypertension and COPD, renal failure and UTI with sepsis presents with a chief complaint of altered mental status gradually progressing over the past few weeks. states that it has been notably different over the course of the day. She has had very few specific complaints such as headache, fever or chills nor chest pain, shortness of breath or cough. She has had some persistent nausea. She denies any dysuria, frequency or urgency. She has had no change in bowel habits. She denies any alcohol or street drugs nor any change in her medications. He states she has not added any new prescriptions and takes no [id number] medications. She has had no falls or evidence of injury. He states that she has presented like this on multiple occasions in the past which were due to dehydration or urinary tract infection. She denies any thoughts of self harm or history of the same. Onset (ago): day(s) Timing confirmed by: spouse Location: altered History of same: Yes Severity: moderate Quality: weak Relieving factors: none Exacerbating factors: none Context: gradual onset On Anticoagulants: No Associated symptoms: confusion Treatments Prior to Arrival: none Related Data Home Medications Medication Instructions Recorded Confirmed metoprolol tartrate 25 mg PO BID #0 04/24/17 09/18/18 alendronate 1 tab PO QWEEK 06/11/18 09/18/18 gabapentin 600 mg PO TID 06/11/18 09/18/18 ranitidine HCl 150 mg PO BID 07/29/18 09/18/18 albuterol sulfate [Ventolin HFA] 2 puff INHALATION Q4-6H PRN 09/18/18 09/18/18 naloxone [Narcan] 1 spray INTRANASAL PRN PRN 09/18/18 09/18/18 oxycodone 5 mg PO Q4-6H PRN 09/18/18 09/18/18 sucralfate 1 g PO QID 09/18/18 09/18/18 alendronate 09/19/18 alendronate 09/19/18 carisoprodol 09/19/18 carisoprodol 09/19/18 carisoprodol 09/19/18 ondansetron 09/19/18 ondansetron 09/19/18 Previous Rx's Medication Instructions Recorded ipratropium-albuterol 3 ml INHALATION Q6-8H PRN #90 ml 07/30/18 ondansetron 4 mg PO TID PRN #10 tab 08/17/18 Allergies Allergy/AdvReac Type Severity Reaction Status Date / Time amitriptyline [AMITRIPTYLINE] Allergy Unknown Verified 09/18/18 17:25 tramadol [TRAMADOL] Allergy Unknown Verified 09/18/18 17:25 Review of Systems Review of Systems ROS Unobtainable: Unobtainable due to medical condition and Unobtainable due to mental status/LOC [facility] Medical History Chronic pain (Acute) GI bleeding (Acute) Family History Mother No known health problems Father No known health problems Social History household members: significant other and caregiver Smoking Status: Former smoker alcohol intake: current Family History Mother No known health problems Father No known health problems Social History household members: significant other and caregiver Smoking Status: Former smoker alcohol intake: current Exam Narrative Exam Narrative: GENERAL: 67-year-old female, appears stated age, confused but awake and alert. GCS 14 HEAD: Atraumatic. Normocephalic. No temporal or scalp tenderness. EYES: Pupils equal round and reactive. Extraocular motions intact. No scleral icterus. No injection or drainage. ENT: Dry mucous membranes.Nose without bleeding, purulent drainage or septal hematoma. Throat without erythema, tonsillar hypertrophy or exudate. Uvula midline. Airway patent. NECK: Trachea midline. No JVD or lymphadenopathy. Supple, nontender, no meningeal signs. CARDIOVASCULAR: Regular rate and rhythm without murmurs, gallops, or rubs. RESPIRATORY: Clear to auscultation. Breath sounds equal bilaterally. No wheezes, rales, or rhonchi. GASTROINTESTINAL: Abdomen soft, non-tender, nondistended. No hepato-splenomegaly, or palpable masses. No guarding. EXTREMITIES: No clubbing, cyanosis, or edema. No joint tenderness, effusion, or edema noted. BACK: Nontender without deformity or crepitance. No flank tenderness. NEURO: AOx3. SKIN: No rash or erythema. Initial Vital Signs Initial Vital Signs: Vital Signs Temperature 97.2 F L 09/18/18 17:25 Pulse Rate 93 H 09/18/18 17:25 Respiratory Rate 15 09/18/18 17:25 Blood Pressure 113/73 09/18/18 17:25 Pulse Oximetry 100 09/18/18 17:25 Procedures Central Line Placement Right IJ: Time Out Performed: Yes Patient Placed on Monitor/Pulse Ox: Yes MD Prep: mask, gown and gloves Central Line Prep: Chlorhexidine scrub and sterile drapes applied Local Anesthetic: lidocaine 1% Amount of anesthesia used (mL): 2 Ultrasound Used for Placement: Yes Central Line Lumen Inserted: triple Post Procedure: good blood return Post Procedure X-Ray: no pneumothorax seen Patient Tolerated Procedure: Well Additional Comments: dark non pulsatile blood return, unable to advance guidewire Left SC: Time Out Performed: Yes Patient Placed on Monitor/Pulse Ox: Yes MD Prep: mask and gloves Central Line Prep: Chlorhexidine scrub and sterile drapes applied Local Anesthetic: lidocaine 1% Amount of anesthesia used (mL): 3 Ultrasound Used for Placement: No Central Line Lumen Inserted: triple Post Procedure: good blood return Post Procedure X-Ray: no pneumothorax seen Patient Tolerated Procedure: Well Complications: hematoma at puncture site Additional Comments: dark non pulsatile blood return, unable to advance guidewire Scores GCS [place] coma scale eye opening: Spontaneous [place] coma scale verbal response: Confused Rosalie coma scale motor response: Obey commands Rosalie coma scale total score: 14 Course Course Narrative: Patient is a very difficult IV stick. Initially we were told we could not use her right arm and after multiple attempts with ultrasound and to failed attempts at EJ days I elected to do an ultrasound-guided central line. Right IJ was accessed with ultrasound guidance, dark blood return, nonpulsatile but unable to advance wire. This was followed by an attempt using anatomic landmarks of her left subclavian which again produced immediate return of dark nonpulsatile blood and again the guidewire would not advance. After discussion with the he states that they just prefer we do not use right arm for IVs because it tends to hurt her given orthopedic injuries. A peripheral IV was immediately placed successfully. Additionally there is delay in obtaining blood work and therefore acetaminophen and salicylate levels. Immediately upon receipt these were independently addressed with a CT dose as well as a bicarb drip. Patient continues to improve mental status and is awake, alert and oriented, resting comfortably. Orders Ordered: ED Orders 09/18/18 20:48 Urine Drug Screen, Rapid Stat 09/18/18 20:52 EKG-12 Lead Stat 09/18/18 20:53 XR chest 1V Stat 09/18/18 21:08 Arterial Blood Gas Stat 09/18/18 21:29 CT head/brain wo con Stat 09/18/18 22:21 Urine Culture Stat Urine Microscopic Stat 09/18/18 23:01 Consult to Respiratory Therapy Evaluate & Treat 09/18/18 23:10 MRSA PCR Urgent 09/19/18 Acetaminophen Routine Partial Thromboplastin Time Routine Prothrombin Time INR Routine Salicylate Routine 09/19/18 02:05 XR chest for PICC 1V Stat 09/19/18 05:00 Basic Metabolic Panel DAILY Complete Blood Count AUTO DIFF DAILY Magnesium Routine Phosphorous Routine 09/20/18 05:00 Basic Metabolic Panel DAILY Complete Blood Count AUTO DIFF DAILY 09/21/18 05:00 Basic Metabolic Panel DAILY Complete Blood Count AUTO DIFF DAILY 09/22/18 05:00 Basic Metabolic Panel DAILY Complete Blood Count AUTO DIFF DAILY Albuterol/Ipratropium (Duoneb) 3 ml INH [id number] LACY Sodium Bicarbonate 150 meq/ (Dextrose) 1,150 mls @ 150 mls/hr IV CONT LACY Last Infusion: 09/18/18 22:40 Dose: 150 mls/hr Admin: 09/18/18 21:49 Dose: 150 mls/hr Acetylcysteine 2,721.55 mg/ (Dextrose) 513.6078 mls @ 125 mls/hr IV NOW ONE Stop: 09/19/18 03:36 Last Admin: 09/19/18 03:26 Dose: 125 mls/hr Acetylcysteine 5,443 mg/ (Dextrose) 1,027.215 mls @ 64.201 mls/hr IV NOW ONE Stop: 09/19/18 19:29 Lorazepam (Ativan) 1 mg IV PROTOCOL PRN PRN Reason: Seizure Activity Metoprolol Tartrate (Lopressor) 25 mg PO BID [facility] Oxycodone HCl (Oxycodone) 5 mg PO Q4HR PRN PRN Reason: Pain, Moderate (4-6) Pantoprazole Sodium (Protonix) 40 mg PO 0700 [facility] Sucralfate (Carafate) 1 gm PO QID [facility] Discontinued Medications Acetylcysteine (Mucomyst) 7,620 mg 140 mg/kg (7620 mg) PO NOW ONE Stop: 09/18/18 21:12 Last Admin: 09/18/18 22:36 Dose: Not Given Sodium Chloride (Normal Saline 0.9%) 1,632.93 mls @ 544.31 mls/hr 30 ml/kg infuse over 3 hr (1632.93 ml) IV CONT LACY Last Infusion: 09/18/18 22:40 Dose: 544.31 mls/hr Admin: 09/18/18 22:40 Dose: 544.31 mls/hr Acetylcysteine 8,160 mg/ (Dextrose) 240.8 mls @ 240.8 mls/hr IV NOW ONE Stop: 09/18/18 21:25 Last Infusion: 09/19/18 03:27 Dose: 0 mls/hr Infusion: 09/18/18 22:40 Dose: 240.8 mls/hr Admin: 09/18/18 22:26 Dose: 240.8 mls/hr Reevaluation(s) Reevaluation #1: Patient continues to improve over the course of her visit Consultations Consultation #1: Discussion with poison Control regarding unexpected laboratory findings including toxic levels of both salicylates and acetaminophen. They are in agreement with our plan to treat with 150 milligrams/kilogram of a seated 0 and follow the 3 dose protocol over the next 24 hr as well as 3 amps of bicarb and D5 for alkalinization of the urine regarding salicylate toxicity Consultation #2: Hospitalist is happy to accept this patient on his service into the ICU Vital Signs - 8 hr 09/18/18 20:12 09/18/18 20:30 09/18/18 21:00 Temperature Pulse Rate 107 H 108 H 103 H Respiratory Rate 17 15 13 Blood Pressure Blood Pressure [Left Arm] 159/71 H 138/80 140/71 Pulse Oximetry 100 100 100 09/18/18 21:30 09/18/18 22:00 09/18/18 22:30 Temperature Pulse Rate 97 H 102 H 97 H Respiratory Rate 11 L 10 L 11 L Blood Pressure Blood Pressure [Left Arm] 154/100 H 125/65 125/65 Pulse Oximetry 100 100 100 09/19/18 00:04 09/19/18 01:03 09/19/18 02:13 Temperature 98.9 F Pulse Rate 115 H 96 H 96 H Respiratory Rate 20 10 L 15 Blood Pressure 126/70 123/80 130/63 Blood Pressure [Left Arm] Pulse Oximetry 100 99 100 09/19/18 03:00 Temperature Pulse Rate 89 Respiratory Rate 20 Blood Pressure 121/49 L Blood Pressure [Left Arm] Pulse Oximetry 99 MDM - Neuro Symptoms/Deficit Lab Data Result diagrams: 09/18/18 18:20 09/18/18 18:20 Lab Results 09/18/18 09/18/18 09/18/18 Range/Units 18:20 18:20 18:20 WBC 13.3 H (4.5-11.0) X10^3/uL RBC 3.68 L (4.0-5.2) X10^6/uL Hgb 11.6 L (12.0-16.0) g/dL Hct 36.1 (36-46) % MCV 98.3 (80-100) fL MCH 31.6 (26-34) PG MCHC 32.1 (30-36) % RDW 17.0 H (11.6-14.8) % Plt Count 524 H (150-400) X10^3/uL Neut % (Auto) 67.4 (50-75) % Lymph % (Auto) 25.5 (25-40) % [place] % (Auto) 4.7 (3-14) % Eos % (Auto) 0.6 L (2-4) % Baso % (Auto) 1.8 (0-2) % Neut # (Auto) 8900 H (0433-8510) /uL Lymph # (Auto) 3400 (6902-6098) /uL [place] # (Auto) 600 (0-900) /uL Eos # (Auto) 100 (0-450) /uL Baso # (Auto) 200 H (0-100) /uL ABG pH (7.35-7.45) ABG pCO2 (35-45) mmHg ABG pO2 (80-100) mmHg ABG HCO3 (22-26) mmol/L ABG Total CO2 (21-31) mmol/L ABG O2 Saturation (95-100) % ABG Base Excess (-2-2) mmol/L FiO2 Sodium 138 (137-145) mmol/L Potassium 4.3 (3.4-5.1) mmol/L Chloride 106 (98-107) mmol/L Carbon Dioxide 17 L (22-32) mmol/L BUN 58 H (7-17) mg/dL Creatinine 2.50 H (0.52-1.04) mg/dL Estimated GFR 19.3 L (>60) mL/min BUN/Creatinine Ratio 23.2 H (6-22) Glucose 129 H (80-110) mg/dL Lactate (0.7-2.1) mmol/L Calcium 9.8 (8.4-10.2) mg/dL Total Bilirubin 0.3 (0.2-1.3) mg/dL AST 31 (14-36) IU/L ALT 24 (9-52) IU/L Alkaline Phosphatase 102 (38-126) U/L Total Protein 8.2 (6.3-8.2) g/dL Albumin 4.5 (3.5-5.0) g/dL Globulin 3.7 (1.7-4.1) g/dL Albumin/Globulin Ratio 1.2 (1.0-2.8) Procalcitonin < 0.05 (<0.5) ng/mL Urine RBC (0-5/HPF) Urine WBC (0-5/HPF) Urine Bacteria (None) Ur Culture Indicated? Nasal Screen MRSA (PCR) (Negative) Salicylates (<20) mg/dL Urine Opiates Screen (Negative) Ur Oxycodone Screen (Negative) Urine Methadone Screen (Negative) Acetaminophen (10-30) ug/mL Ur Barbiturates Screen (Negative) U Tricyclic Antidepress (Negative) Ur Phencyclidine Scrn (Negative) Ur Amphetamines Screen (Negative) U Methamphetamines Scrn (Negative) Ur MDMA Scrn (Ecstasy) (Negative) U Benzodiazepines Scrn (Negative) Urine Cocaine Screen (Negative) U Marijuana (THC) Screen (Negative) Ethyl Alcohol mg/dL 09/18/18 09/18/18 09/18/18 Range/Units 18:20 18:20 20:48 WBC (4.5-11.0) X10^3/uL RBC (4.0-5.2) X10^6/uL Hgb (12.0-16.0) g/dL Hct (36-46) % MCV (80-100) fL MCH (26-34) PG MCHC (30-36) % RDW (11.6-14.8) % Plt Count (150-400) X10^3/uL Neut % (Auto) (50-75) % Lymph % (Auto) (25-40) % [place] % (Auto) (3-14) % Eos % (Auto) (2-4) % Baso % (Auto) (0-2) % Neut # (Auto) (8311-5182) /uL Lymph # (Auto) (5389-0824) /uL [place] # (Auto) (0-900) /uL Eos # (Auto) (0-450) /uL Baso # (Auto) (0-100) /uL ABG pH (7.35-7.45) ABG pCO2 (35-45) mmHg ABG pO2 (80-100) mmHg ABG HCO3 (22-26) mmol/L ABG Total CO2 (21-31) mmol/L ABG O2 Saturation (95-100) % ABG Base Excess (-2-2) mmol/L FiO2 Sodium (137-145) mmol/L Potassium (3.4-5.1) mmol/L Chloride (98-107) mmol/L Carbon Dioxide (22-32) mmol/L BUN (7-17) mg/dL Creatinine (0.52-1.04) mg/dL Estimated GFR (>60) mL/min BUN/Creatinine Ratio (6-22) Glucose (80-110) mg/dL Lactate 0.6 L (0.7-2.1) mmol/L Calcium (8.4-10.2) mg/dL Total Bilirubin (0.2-1.3) mg/dL AST (14-36) IU/L ALT (9-52) IU/L Alkaline Phosphatase (38-126) U/L Total Protein (6.3-8.2) g/dL Albumin (3.5-5.0) g/dL Globulin (1.7-4.1) g/dL Albumin/Globulin Ratio (1.0-2.8) Procalcitonin (<0.5) ng/mL Urine RBC (0-5/HPF) Urine WBC (0-5/HPF) Urine Bacteria (None) Ur Culture Indicated? Nasal Screen MRSA (PCR) (Negative) Salicylates 48.5 H* (<20) mg/dL Urine Opiates Screen Positive H (Negative) Ur Oxycodone Screen Positive H (Negative) Urine Methadone Screen Negative (Negative) Acetaminophen 63 H* (10-30) ug/mL Ur Barbiturates Screen Negative (Negative) U Tricyclic Antidepress Negative (Negative) Ur Phencyclidine Scrn Negative (Negative) Ur Amphetamines Screen Negative (Negative) U Methamphetamines Scrn Negative (Negative) Ur MDMA Scrn (Ecstasy) Negative (Negative) U Benzodiazepines Scrn Negative (Negative) Urine Cocaine Screen Negative (Negative) U Marijuana (THC) Screen Negative (Negative) Ethyl Alcohol < 10 mg/dL 09/18/18 09/18/18 09/18/18 Range/Units 21:08 22:21 23:10 WBC (4.5-11.0) X10^3/uL RBC (4.0-5.2) X10^6/uL Hgb (12.0-16.0) g/dL Hct (36-46) % MCV (80-100) fL MCH (26-34) PG MCHC (30-36) % RDW (11.6-14.8) % Plt Count (150-400) X10^3/uL Neut % (Auto) (50-75) % Lymph % (Auto) (25-40) % [place] % (Auto) (3-14) % Eos % (Auto) (2-4) % Baso % (Auto) (0-2) % Neut # (Auto) (4830-3313) /uL Lymph # (Auto) (5505-8992) /uL [place] # (Auto) (0-900) /uL Eos # (Auto) (0-450) /uL Baso # (Auto) (0-100) /uL ABG pH 7.37 (7.35-7.45) ABG pCO2 20.2 L* (35-45) mmHg ABG pO2 95 (80-100) mmHg ABG HCO3 12 L (22-26) mmol/L ABG Total CO2 12 L (21-31) mmol/L ABG O2 Saturation 97 (95-100) % ABG Base Excess -14.0 L (-2-2) mmol/L FiO2 21 Sodium (137-145) mmol/L Potassium (3.4-5.1) mmol/L Chloride (98-107) mmol/L Carbon Dioxide (22-32) mmol/L BUN (7-17) mg/dL Creatinine (0.52-1.04) mg/dL Estimated GFR (>60) mL/min BUN/Creatinine Ratio (6-22) Glucose (80-110) mg/dL Lactate (0.7-2.1) mmol/L Calcium (8.4-10.2) mg/dL Total Bilirubin (0.2-1.3) mg/dL AST (14-36) IU/L ALT (9-52) IU/L Alkaline Phosphatase (38-126) U/L Total Protein (6.3-8.2) g/dL Albumin (3.5-5.0) g/dL Globulin (1.7-4.1) g/dL Albumin/Globulin Ratio (1.0-2.8) Procalcitonin (<0.5) ng/mL Urine RBC None seen (0-5/HPF) Urine WBC 1-5/hpf (0-5/HPF) Urine Bacteria Occasional (0-1) D (None) Ur Culture Indicated? Specimen cultured Nasal Screen MRSA (PCR) Negative for mrsa (Negative) Salicylates (<20) mg/dL Urine Opiates Screen (Negative) Ur Oxycodone Screen (Negative) Urine Methadone Screen (Negative) Acetaminophen (10-30) ug/mL Ur Barbiturates Screen (Negative) U Tricyclic Antidepress (Negative) Ur Phencyclidine Scrn (Negative) Ur Amphetamines Screen (Negative) U Methamphetamines Scrn (Negative) Ur MDMA Scrn (Ecstasy) (Negative) U Benzodiazepines Scrn (Negative) Urine Cocaine Screen (Negative) U Marijuana (THC) Screen (Negative) Ethyl Alcohol mg/dL Urine Dip Bedside Urine Glucose Negative Bedside Urine Bilirubin - Negative Bedside Urine Ketone - Negative Urine Specific [place] 1.015 Bedside Urine Occult Blood - Negative Bedside Urine pH 6.0 Bedside Urine Protein +/- 15 Bedside Urine Urobilinogen - Negative Bedside Urine Nitrite - Negative Bedside Urine Leukocytes + 70 Esterase Critical Care Time Critical Care Time: Yes Total Critical Care Time: 30 Attestation: The high probability of a clinically significant, sudden or life threatening deterioration of the [cardiovascular] system(s) required my full and direct attention, intervention and personal management. The aggregate critical care time was [30] minutes. This time is in addition to time spent performing reported procedures but includes the following: [x] Data Review and interpretation [x] Patient assessment and monitoring of vital signs [x] Documentation [x] Medication orders and management Discharge Plan Departure Patient Disposition: Admitted As Inpatient Clinical Impression: Accidental acetaminophen overdose, Overdose of salicylate, Metabolic acidosis Discharge Date/Time: 09/18/18 22:40 Interventions: ED Discharge Assessment Last Done: 09/18/18 23:06 Admit Date/Time: 09/18/18 22:30 Admit Provider: Reginaldo Cruz
[2018-09-18 18:47] LABS: Alanine Aminotransferase 24 IU/L (9-52); Albumin 4.5 g/dL (3.5-5.0); Albumin Globulin Ratio 1.2 (1.0-2.8); Alkaline Phosphatase 102 U/L (38-126); Aspartate Aminotransferase 31 IU/L (14-36); BUN Creatinine Ratio 23.2 (6-22); Bilirubin Total 0.3 mg/dL (0.2-1.3); Blood Urea Nitrogen 58 mg/dL (7-17); Calcium 9.8 mg/dL (8.4-10.2); Carbon Dioxide 17 mmol/L (22-32); Chloride 106 mmol/L (98-107); Estimated Glomerular Filt Rate 19.3 mL/min (>60); Globulin 3.7 g/dL (1.7-4.1); Glucose 129 mg/dL (80-110); HEMOLYSIS 16 (0-50); Lactate (Lactic Acid) 0.6 mmol/L (0.7-2.1); Potassium 4.3 mmol/L (3.4-5.1); Sodium 138 mmol/L (137-145); Total Protein 8.2 g/dL (6.3-8.2)
[2018-09-18 19:03] LABS: Procalcitonin < 0.05 ng/mL (<0.5)
--- NOTE | 2018-09-18 19:28 | PC.NURSE ---
attempted to start an iv on patient, 2 attempts unsuccessful. I was able to start a line in her left upper arm via ultrasound and get blood. When I went back in to check on it it was infiltrated. pt has been moaning and not really coherent at all. After her first stick she responded to the pain and her who has some odd behavior was difficult getting information out of. He reported that she's never acted like that getting an iv in before. He told me to stop trying and get someone else in there to start the iv. That when I was getting it via ultrasound. It was placed but she was moving around and I think it became dislodged. pt able to move her arms independently but she is not following commands. Her had to carry her from wheelchair to the gurney as she has no strength in her legs. I did not witness any of this. report given to Alice LEE for continued care.
[2018-09-18 19:34] LABS: Ethanol (ETOH) < 10 mg/dL
[2018-09-18 19:44] LABS: Salicylate 48.5 mg/dL (<20)
[2018-09-18 19:50] LABS: Acetaminophen 63 ug/mL (10-30)
--- NOTE | 2018-09-18 20:53 | DI.RAD.S_ITS ---
PROCEDURE: XR CHEST 1V INDICATIONS: status post line attempt TECHNIQUE: One view of the chest was acquired. COMPARISON: [facility], CR, XR CHEST 1V, 07/14/2018, 16:40. [facility], CR, XR CHEST 1V, 07/29/2018, 18:05. [facility], CR, XR CHEST 1V, 09/18/2018, 18:19. FINDINGS: Surgical changes and devices: Cholecystectomy clips are seen. Lungs and pleura: Lungs are clear. No pleural effusions or pneumothorax. Mediastinum: The cardiac contours are within normal limits. The aorta demonstrates calcification and tortuosity. Bones and chest wall: No suspicious bony lesions. Age-appropriate bony degenerative changes are seen. Overlying soft tissues appear unremarkable. IMPRESSION: No pneumothorax or other acute iatrogenic abnormality can be seen. Postoperative and degenerative changes are seen. Dictated by: Darwin Long M.D. on 09/18/2018 at 20:18 Approved by: Darwin Long M.D. on 09/18/2018 at 20:19
[2018-09-18 21:03] LABS: Urine Amphetamines Negative (Negative); Urine Barbiturates Negative (Negative); Urine Benzodiazepines Negative (Negative); Urine Cocaine Negative (Negative); Urine MDMA Negative (Negative); Urine Methadone Negative (Negative); Urine Methamphetamines Negative (Negative); Urine Morphine/Opi cutoff 2000 Positive (Negative); Urine Oxycodone Positive (Negative); Urine Phencyclidine Negative (Negative); Urine Tetrahydrocannabinol Negative (Negative); Urine Tricyclic Antidepressant Negative (Negative)
[2018-09-18 21:26] LABS: HCO3 ABG 12 mmol/L (22-26); PCO2 ABG 20.2 mmHg (35-45); PO2 ABG 95 mmHg (80-100); TCO2 ABG 12 mmol/L (21-31); pH ABG 7.37 (7.35-7.45)
[2018-09-18 21:27] LABS: Fractionated Inspired Oxygen 21; Oxygen Saturation ABG 97 % (95-100)
--- NOTE | 2018-09-18 21:29 | DI.CT.S_ITS ---
PROCEDURE: CT HEAD/BRAIN WO CON INDICATIONS: mental status change TECHNIQUE: Noncontrast 4.5 mm thick angled axial sections acquired from the foramen magnum to the vertex, with coronal and sagittal reformats. For radiation dose reduction, the following was used: automated exposure control, adjustment of mA and/or kV according to patient size. COMPARISON: Located [facility], CT, CT HEAD/BRAIN WO CON, 07/29/2018, 18:41. FINDINGS: Image quality: Excellent. CSF spaces: Basal cisterns are patent. No extra-axial fluid collections. The ventricles are symmetric in size and shape. Brain: No intracranial bleeds or masses. There is cerebral volume loss for age, with resultant ventricular and sulcal prominence. There are periventricular and deep white matter chronic small vessel ischemic changes. There is intracranial internal carotid artery atherosclerosis. Skull and face: Calvarium and visualized facial bones appear intact, without suspicious lesions. Sinuses: Visualized sinuses and mastoids are clear. IMPRESSION: 1. No acute intracranial findings. 2. Mild findings likely associated with chronic microvascular ischemic changes. Dictated by: Suellen Herrmann M.D. on 09/18/2018 at 21:54 Approved by: Suellen Herrmann M.D. on 09/18/2018 at 21:56
--- NOTE | 2018-09-18 21:38 | ED_ITS ---
HPI - Neuro Symptoms/Deficit General Chief Complaint: Neuro Symptoms/Deficit Stated Complaint: LETHARGIC, NOT RESPONDING PROPERLY Time Seen by Provider: 09/18/18 18:13 Source: patient and family Mode of arrival: wheelchair Limitations: altered mental status History of Present Illness HPI Narrative: 67-year-old female, former smoker with history of hypertension and COPD, renal failure and UTI with sepsis presents with a chief complaint of altered mental status gradually progressing over the past few weeks. states that it has been notably different over the course of the day. She has had very few specific complaints such as headache, fever or chills nor chest pain, shortness of breath or cough. She has had some persistent nausea. She denies any dysuria, frequency or urgency. She has had no change in bowel habits. She denies any alcohol or street drugs nor any change in her medications. He states she has not added any new prescriptions and takes no [id number] medications. She has had no falls or evidence of injury. He states that she has presented like this on multiple occasions in the past which were due to dehydration or urinary tract infection. She denies any thoughts of self harm or history of the same. Onset (ago): day(s) Timing confirmed by: spouse Location: altered History of same: Yes Severity: moderate Quality: weak Relieving factors: none Exacerbating factors: none Context: gradual onset On Anticoagulants: No Associated symptoms: confusion Treatments Prior to Arrival: none Related Data Home Medications Medication Instructions Recorded Confirmed metoprolol tartrate 25 mg PO BID #0 04/24/17 09/18/18 alendronate 1 tab PO QWEEK 06/11/18 09/18/18 gabapentin 600 mg PO TID 06/11/18 09/18/18 ranitidine HCl 150 mg PO BID 07/29/18 09/18/18 albuterol sulfate [Ventolin HFA] 2 puff INHALATION Q4-6H PRN 09/18/18 09/18/18 naloxone [Narcan] 1 spray INTRANASAL PRN PRN 09/18/18 09/18/18 oxycodone 5 mg PO Q4-6H PRN 09/18/18 09/18/18 sucralfate 1 g PO QID 09/18/18 09/18/18 alendronate 09/19/18 alendronate 09/19/18 carisoprodol 09/19/18 carisoprodol 09/19/18 carisoprodol 09/19/18 ondansetron 09/19/18 ondansetron 09/19/18 Previous Rx's Medication Instructions Recorded ipratropium-albuterol 3 ml INHALATION Q6-8H PRN #90 ml 07/30/18 ondansetron 4 mg PO TID PRN #10 tab 08/17/18 Allergies Allergy/AdvReac Type Severity Reaction Status Date / Time amitriptyline [AMITRIPTYLINE] Allergy Unknown Verified 09/18/18 17:25 tramadol [TRAMADOL] Allergy Unknown Verified 09/18/18 17:25 Review of Systems Review of Systems ROS Unobtainable: Unobtainable due to medical condition and Unobtainable due to mental status/LOC [facility] Medical History Chronic pain (Acute) GI bleeding (Acute) Family History Mother No known health problems Father No known health problems Social History household members: significant other and caregiver Smoking Status: Former smoker alcohol intake: current Family History Mother No known health problems Father No known health problems Social History household members: significant other and caregiver Smoking Status: Former smoker alcohol intake: current Exam Narrative Exam Narrative: GENERAL: 67-year-old female, appears stated age, confused but awake and alert. GCS 14 HEAD: Atraumatic. Normocephalic. No temporal or scalp tenderness. EYES: Pupils equal round and reactive. Extraocular motions intact. No scleral icterus. No injection or drainage. ENT: Dry mucous membranes.Nose without bleeding, purulent drainage or septal hematoma. Throat without erythema, tonsillar hypertrophy or exudate. Uvula midline. Airway patent. NECK: Trachea midline. No JVD or lymphadenopathy. Supple, nontender, no meningeal signs. CARDIOVASCULAR: Regular rate and rhythm without murmurs, gallops, or rubs. RESPIRATORY: Clear to auscultation. Breath sounds equal bilaterally. No wheezes , rales, or rhonchi. GASTROINTESTINAL: Abdomen soft, non-tender, nondistended. No hepato-splenomegaly , or palpable masses. No guarding. EXTREMITIES: No clubbing, cyanosis, or edema. No joint tenderness, effusion, or edema noted. BACK: Nontender without deformity or crepitance. No flank tenderness. NEURO: AOx3. SKIN: No rash or erythema. Initial Vital Signs Initial Vital Signs: Vital Signs Temperature 97.2 F L 09/18/18 17:25 Pulse Rate 93 H 09/18/18 17:25 Respiratory Rate 15 09/18/18 17:25 Blood Pressure 113/73 09/18/18 17:25 Pulse Oximetry 100 09/18/18 17:25 Procedures Central Line Placement Right IJ: Time Out Performed: Yes Patient Placed on Monitor/Pulse Ox: Yes MD Prep: mask, gown and gloves Central Line Prep: Chlorhexidine scrub and sterile drapes applied Local Anesthetic: lidocaine 1% Amount of anesthesia used (mL): 2 Ultrasound Used for Placement: Yes Central Line Lumen Inserted: triple Post Procedure: good blood return Post Procedure X-Ray: no pneumothorax seen Patient Tolerated Procedure: Well Additional Comments: dark non pulsatile blood return, unable to advance guidewire Left SC: Time Out Performed: Yes Patient Placed on Monitor/Pulse Ox: Yes MD Prep: mask and gloves Central Line Prep: Chlorhexidine scrub and sterile drapes applied Local Anesthetic: lidocaine 1% Amount of anesthesia used (mL): 3 Ultrasound Used for Placement: No Central Line Lumen Inserted: triple Post Procedure: good blood return Post Procedure X-Ray: no pneumothorax seen Patient Tolerated Procedure: Well Complications: hematoma at puncture site Additional Comments: dark non pulsatile blood return, unable to advance guidewire Scores GCS Rosalie coma scale eye opening: Spontaneous [place] coma scale verbal response: Confused Rosalie coma scale motor response: Obey commands [place] coma scale total score: 14 Course Course Narrative: Patient is a very difficult IV stick. Initially we were told we could not use her right arm and after multiple attempts with ultrasound and to failed attempts at EJ days I elected to do an ultrasound-guided central line. Right IJ was accessed with ultrasound guidance, dark blood return, nonpulsatile but unable to advance wire. This was followed by an attempt using anatomic landmarks of her left subclavian which again produced immediate return of dark nonpulsatile blood and again the guidewire would not advance. After discussion with the he states that they just prefer we do not use right arm for IVs because it tends to hurt her given orthopedic injuries. A peripheral IV was immediately placed successfully. Additionally there is delay in obtaining blood work and therefore acetaminophen and salicylate levels. Immediately upon receipt these were independently addressed with a CT dose as well as a bicarb drip. Patient continues to improve mental status and is awake , alert and oriented, resting comfortably. Orders Ordered: ED Orders 09/18/18 20:48 Urine Drug Screen, Rapid Stat 09/18/18 20:52 EKG-12 Lead Stat 09/18/18 20:53 XR chest 1V Stat 09/18/18 21:08 Arterial Blood Gas Stat 09/18/18 21:29 CT head/brain wo con Stat 09/18/18 22:21 Urine Culture Stat Urine Microscopic Stat 09/18/18 23:01 Consult to Respiratory Therapy Evaluate & Treat 09/18/18 23:10 MRSA PCR Urgent 09/19/18 Acetaminophen Routine Partial Thromboplastin Time Routine Prothrombin Time INR Routine Salicylate Routine 09/19/18 02:05 XR chest for PICC 1V Stat 09/19/18 05:00 Basic Metabolic Panel DAILY Complete Blood Count AUTO DIFF DAILY Magnesium Routine Phosphorous Routine 09/20/18 05:00 Basic Metabolic Panel DAILY Complete Blood Count AUTO DIFF DAILY 09/21/18 05:00 Basic Metabolic Panel DAILY Complete Blood Count AUTO DIFF DAILY 09/22/18 05:00 Basic Metabolic Panel DAILY Complete Blood Count AUTO DIFF DAILY Albuterol/Ipratropium (Duoneb) 3 ml INH [id number] LACY Sodium Bicarbonate 150 meq/ (Dextrose) 1,150 mls @ 150 mls/hr IV CONT LACY Last Infusion: 09/18/18 22:40 Dose: 150 mls/hr Admin: 09/18/18 21:49 Dose: 150 mls/hr Acetylcysteine 2,721.55 mg/ (Dextrose) 513.6078 mls @ 125 mls/hr IV NOW ONE Stop: 09/19/18 03:36 Last Admin: 09/19/18 03:26 Dose: 125 mls/hr Acetylcysteine 5,443 mg/ (Dextrose) 1,027.215 mls @ 64.201 mls/hr IV NOW ONE Stop: 09/19/18 19:29 Lorazepam (Ativan) 1 mg IV PROTOCOL PRN PRN Reason: Seizure Activity Metoprolol Tartrate (Lopressor) 25 mg PO BID [facility] Oxycodone HCl (Oxycodone) 5 mg PO Q4HR PRN PRN Reason: Pain, Moderate (4-6) Pantoprazole Sodium (Protonix) 40 mg PO 0700 [facility] Sucralfate (Carafate) 1 gm PO QID [facility] Discontinued Medications Acetylcysteine (Mucomyst) 7,620 mg 140 mg/kg (7620 mg) PO NOW ONE Stop: 09/18/18 21:12 Last Admin: 09/18/18 22:36 Dose: Not Given Sodium Chloride (Normal Saline 0.9%) 1,632.93 mls @ 544.31 mls/hr 30 ml/kg infuse over 3 hr (1632.93 ml) IV CONT LACY Last Infusion: 09/18/18 22:40 Dose: 544.31 mls/hr Admin: 09/18/18 22:40 Dose: 544.31 mls/hr Acetylcysteine 8,160 mg/ (Dextrose) 240.8 mls @ 240.8 mls/hr IV NOW ONE Stop: 09/18/18 21:25 Last Infusion: 09/19/18 03:27 Dose: 0 mls/hr Infusion: 09/18/18 22:40 Dose: 240.8 mls/hr Admin: 09/18/18 22:26 Dose: 240.8 mls/hr Reevaluation(s) Reevaluation #1: Patient continues to improve over the course of her visit Consultations Consultation #1: Discussion with poison Control regarding unexpected laboratory findings including toxic levels of both salicylates and acetaminophen. They are in agreement with our plan to treat with 150 milligrams/kilogram of a seated 0 and follow the 3 dose protocol over the next 24 hr as well as 3 amps of bicarb and D5 for alkalinization of the urine regarding salicylate toxicity Consultation #2: Hospitalist is happy to accept this patient on his service into the ICU Vital Signs - 8 hr 09/18/18 20:12 09/18/18 20:30 09/18/18 21:00 Temperature Pulse Rate 107 H 108 H 103 H Respiratory Rate 17 15 13 Blood Pressure Blood Pressure [Left Arm] 159/71 H 138/80 140/71 Pulse Oximetry 100 100 100 09/18/18 21:30 09/18/18 22:00 09/18/18 22:30 Temperature Pulse Rate 97 H 102 H 97 H Respiratory Rate 11 L 10 L 11 L Blood Pressure Blood Pressure [Left Arm] 154/100 H 125/65 125/65 Pulse Oximetry 100 100 100 09/19/18 00:04 09/19/18 01:03 09/19/18 02:13 Temperature 98.9 F Pulse Rate 115 H 96 H 96 H Respiratory Rate 20 10 L 15 Blood Pressure 126/70 123/80 130/63 Blood Pressure [Left Arm] Pulse Oximetry 100 99 100 09/19/18 03:00 Temperature Pulse Rate 89 Respiratory Rate 20 Blood Pressure 121/49 L Blood Pressure [Left Arm] Pulse Oximetry 99 MDM - Neuro Symptoms/Deficit Lab Data Result diagrams: 09/18/18 18:20 09/18/18 18:20 Lab Results 09/18/18 09/18/18 09/18/18 Range/Units 18:20 18:20 18:20 WBC 13.3 H (4.5-11.0) X10^3/uL RBC 3.68 L (4.0-5.2) X10^6/uL Hgb 11.6 L (12.0-16.0) g/dL Hct 36.1 (36-46) % MCV 98.3 (80-100) fL MCH 31.6 (26-34) PG MCHC 32.1 (30-36) % RDW 17.0 H (11.6-14.8) % Plt Count 524 H (150-400) X10^3/uL Neut % (Auto) 67.4 (50-75) % Lymph % (Auto) 25.5 (25-40) % [place] % (Auto) 4.7 (3-14) % Eos % (Auto) 0.6 L (2-4) % Baso % (Auto) 1.8 (0-2) % Neut # (Auto) 8900 H (1278-2392) /uL Lymph # (Auto) 3400 (2696-2039) /uL [place] # (Auto) 600 (0-900) /uL Eos # (Auto) 100 (0-450) /uL Baso # (Auto) 200 H (0-100) /uL ABG pH (7.35-7.45) ABG pCO2 (35-45) mmHg ABG pO2 (80-100) mmHg ABG HCO3 (22-26) mmol/L ABG Total CO2 (21-31) mmol/L ABG O2 Saturation (95-100) % ABG Base Excess (-2-2) mmol/L FiO2 Sodium 138 (137-145) mmol/L Potassium 4.3 (3.4-5.1) mmol/L Chloride 106 (98-107) mmol/L Carbon Dioxide 17 L (22-32) mmol/L BUN 58 H (7-17) mg/dL Creatinine 2.50 H (0.52-1.04) mg/dL Estimated GFR 19.3 L (>60) mL/min BUN/Creatinine Ratio 23.2 H (6-22) Glucose 129 H (80-110) mg/dL Lactate (0.7-2.1) mmol/L Calcium 9.8 (8.4-10.2) mg/dL Total Bilirubin 0.3 (0.2-1.3) mg/dL AST 31 (14-36) IU/L ALT 24 (9-52) IU/L Alkaline Phosphatase 102 (38-126) U/L Total Protein 8.2 (6.3-8.2) g/dL Albumin 4.5 (3.5-5.0) g/dL Globulin 3.7 (1.7-4.1) g/dL Albumin/Globulin Ratio 1.2 (1.0-2.8) Procalcitonin < 0.05 (<0.5) ng/mL Urine RBC (0-5/HPF) Urine WBC (0-5/HPF) Urine Bacteria (None) Ur Culture Indicated? Nasal Screen MRSA (PCR) (Negative) Salicylates (<20) mg/dL Urine Opiates Screen (Negative) Ur Oxycodone Screen (Negative) Urine Methadone Screen (Negative) Acetaminophen (10-30) ug/mL Ur Barbiturates Screen (Negative) U Tricyclic Antidepress (Negative) Ur Phencyclidine Scrn (Negative) Ur Amphetamines Screen (Negative) U Methamphetamines Scrn (Negative) Ur MDMA Scrn (Ecstasy) (Negative) U Benzodiazepines Scrn (Negative) Urine Cocaine Screen (Negative) U Marijuana (THC) Screen (Negative) Ethyl Alcohol mg/dL 09/18/18 09/18/18 09/18/18 Range/Units 18:20 18:20 20:48 WBC (4.5-11.0) X10^3/uL RBC (4.0-5.2) X10^6/uL Hgb (12.0-16.0) g/dL Hct (36-46) % MCV (80-100) fL MCH (26-34) PG MCHC (30-36) % RDW (11.6-14.8) % Plt Count (150-400) X10^3/uL Neut % (Auto) (50-75) % Lymph % (Auto) (25-40) % [place] % (Auto) (3-14) % Eos % (Auto) (2-4) % Baso % (Auto) (0-2) % Neut # (Auto) (4256-0028) /uL Lymph # (Auto) (3914-5497) /uL [place] # (Auto) (0-900) /uL Eos # (Auto) (0-450) /uL Baso # (Auto) (0-100) /uL ABG pH (7.35-7.45) ABG pCO2 (35-45) mmHg ABG pO2 (80-100) mmHg ABG HCO3 (22-26) mmol/L ABG Total CO2 (21-31) mmol/L ABG O2 Saturation (95-100) % ABG Base Excess (-2-2) mmol/L FiO2 Sodium (137-145) mmol/L Potassium (3.4-5.1) mmol/L Chloride (98-107) mmol/L Carbon Dioxide (22-32) mmol/L BUN (7-17) mg/dL Creatinine (0.52-1.04) mg/dL Estimated GFR (>60) mL/min BUN/Creatinine Ratio (6-22) Glucose (80-110) mg/dL Lactate 0.6 L (0.7-2.1) mmol/L Calcium (8.4-10.2) mg/dL Total Bilirubin (0.2-1.3) mg/dL AST (14-36) IU/L ALT (9-52) IU/L Alkaline Phosphatase (38-126) U/L Total Protein (6.3-8.2) g/dL Albumin (3.5-5.0) g/dL Globulin (1.7-4.1) g/dL Albumin/Globulin Ratio (1.0-2.8) Procalcitonin (<0.5) ng/mL Urine RBC (0-5/HPF) Urine WBC (0-5/HPF) Urine Bacteria (None) Ur Culture Indicated? Nasal Screen MRSA (PCR) (Negative) Salicylates 48.5 H* (<20) mg/dL Urine Opiates Screen Positive H (Negative) Ur Oxycodone Screen Positive H (Negative) Urine Methadone Screen Negative (Negative) Acetaminophen 63 H* (10-30) ug/mL Ur Barbiturates Screen Negative (Negative) U Tricyclic Antidepress Negative (Negative) Ur Phencyclidine Scrn Negative (Negative) Ur Amphetamines Screen Negative (Negative) U Methamphetamines Scrn Negative (Negative) Ur MDMA Scrn (Ecstasy) Negative (Negative) U Benzodiazepines Scrn Negative (Negative) Urine Cocaine Screen Negative (Negative) U Marijuana (THC) Screen Negative (Negative) Ethyl Alcohol < 10 mg/dL 09/18/18 09/18/18 09/18/18 Range/Units 21:08 22:21 23:10 WBC (4.5-11.0) X10^3/uL RBC (4.0-5.2) X10^6/uL Hgb (12.0-16.0) g/dL Hct (36-46) % MCV (80-100) fL MCH (26-34) PG MCHC (30-36) % RDW (11.6-14.8) % Plt Count (150-400) X10^3/uL Neut % (Auto) (50-75) % Lymph % (Auto) (25-40) % [place] % (Auto) (3-14) % Eos % (Auto) (2-4) % Baso % (Auto) (0-2) % Neut # (Auto) (1245-1000) /uL Lymph # (Auto) (7528-1688) /uL [place] # (Auto) (0-900) /uL Eos # (Auto) (0-450) /uL Baso # (Auto) (0-100) /uL ABG pH 7.37 (7.35-7.45) ABG pCO2 20.2 L* (35-45) mmHg ABG pO2 95 (80-100) mmHg ABG HCO3 12 L (22-26) mmol/L ABG Total CO2 12 L (21-31) mmol/L ABG O2 Saturation 97 (95-100) % ABG Base Excess -14.0 L (-2-2) mmol/L FiO2 21 Sodium (137-145) mmol/L Potassium (3.4-5.1) mmol/L Chloride (98-107) mmol/L Carbon Dioxide (22-32) mmol/L BUN (7-17) mg/dL Creatinine (0.52-1.04) mg/dL Estimated GFR (>60) mL/min BUN/Creatinine Ratio (6-22) Glucose (80-110) mg/dL Lactate (0.7-2.1) mmol/L Calcium (8.4-10.2) mg/dL Total Bilirubin (0.2-1.3) mg/dL AST (14-36) IU/L ALT (9-52) IU/L Alkaline Phosphatase (38-126) U/L Total Protein (6.3-8.2) g/dL Albumin (3.5-5.0) g/dL Globulin (1.7-4.1) g/dL Albumin/Globulin Ratio (1.0-2.8) Procalcitonin (<0.5) ng/mL Urine RBC None seen (0-5/HPF) Urine WBC 1-5/hpf (0-5/HPF) Urine Bacteria Occasional (0-1) D (None) Ur Culture Indicated? Specimen cultured Nasal Screen MRSA (PCR) Negative for mrsa (Negative) Salicylates (<20) mg/dL Urine Opiates Screen (Negative) Ur Oxycodone Screen (Negative) Urine Methadone Screen (Negative) Acetaminophen (10-30) ug/mL Ur Barbiturates Screen (Negative) U Tricyclic Antidepress (Negative) Ur Phencyclidine Scrn (Negative) Ur Amphetamines Screen (Negative) U Methamphetamines Scrn (Negative) Ur MDMA Scrn (Ecstasy) (Negative) U Benzodiazepines Scrn (Negative) Urine Cocaine Screen (Negative) U Marijuana (THC) Screen (Negative) Ethyl Alcohol mg/dL Urine Dip Bedside Urine Glucose Negative Bedside Urine Bilirubin - Negative Bedside Urine Ketone - Negative Urine Specific [place] 1.015 Bedside Urine Occult Blood - Negative Bedside Urine pH 6.0 Bedside Urine Protein +/- 15 Bedside Urine Urobilinogen - Negative Bedside Urine Nitrite - Negative Bedside Urine Leukocytes + 70 Esterase Critical Care Time Critical Care Time: Yes Total Critical Care Time: 30 Attestation: The high probability of a clinically significant, sudden or life threatening deterioration of the [cardiovascular] system(s) required my full and direct attention, intervention and personal management. The aggregate critical care time was [30] minutes. This time is in addition to time spent performing reported procedures but includes the following: [x] Data Review and interpretation [x] Patient assessment and monitoring of vital signs [x] Documentation [x] Medication orders and management Discharge Plan Departure Patient Disposition: Admitted As Inpatient Clinical Impression: Accidental acetaminophen overdose, Overdose of salicylate, Metabolic acidosis Discharge Date/Time: 09/18/18 22:40 Interventions: ED Discharge Assessment Last Done: 09/18/18 23:06 Admit Date/Time: 09/18/18 22:30 Admit Provider: Reginaldo Cruz
[2018-09-18] MEDS: SODIUM BICARB 8.4% VIAL 150 MEQ in DEXTROSE 5% WATER 1,000 ML IV (21:49)
--- NOTE | 2018-09-18 22:00 | PC.NURSE ---
Attempted to reconcile home medications pt unable to provide list.
[2018-09-18] MEDS: DEXTROSE 5% IV (22:26)
[2018-09-18] MEDS: ACETYLCYSTEINE IV (22:26)
[2018-09-18] MEDS: WATER IV (22:26)
[2018-09-18] MEDS: SODIUM CHLORIDE 0.9% 1,632.93 ML 544.31 ML IV (22:40)
[2018-09-18 22:46] LABS: RBC Urine None Seen (0-5/HPF)
--- NOTE | 2018-09-18 23:13 | PC.NURSE ---
2255 - Pt arrived from ER. Transferred to bed via slider board. Smiling but not answering questions appropriately. Able to report feeling cold. Oriented to room and call light use. Bed alarm on.
[2018-09-19] VITALS (14 sets, daily range): BP systolic 118–159; BP diastolic 49–103; PULSE 86–115; RESP 10–20; TEMP 36.4–37.2; O2SAT 99–100; BMI 22.2
[2018-09-19 00:15] LABS: Bacteria Urine Occasional (0-1); Culture Indicated Urine Specimen Cultured; WBC Urine 1-5/HPF (0-5/HPF)
--- NOTE | 2018-09-19 02:05 | DI.RAD.S_ITS ---
PROCEDURE: XR CHEST FOR PICC 1V INDICATIONS: PICC Placement COMPARISON: [facility], , XR CHEST 1V, 09/18/2018, 20:57. FINDINGS: PICC was placed by the intravenous therapy team from the left side. Tip of the PICC is in the mid superior vena cava. Heart size is normal. No central venous congestion. Clear lungs. No pneumothorax. Intact osseous structures. IMPRESSION: Tip of PICC lies within the mid superior vena cava. Dictated by: Tawny Weaver M.D. on 09/19/2018 at 7:53 Approved by: Tawny Weaver M.D. on 09/19/2018 at 7:56
--- NOTE | 2018-09-19 03:25 | PM.HP.1 ---
History of Present Illness Date Patient Seen: 09/18/18 Time Patient Seen: 23:15 Chief complaint: LETHARGIC, NOT RESPONDING PROPERLY Narrative: This is a 67-year-old female patient with a history of hypertension, COPD, renal disease, neuropathy, alcoholism that presents to the emergency department for altered mental status for 1 week. The patient is brought in by her who indicates that the patient has had not herself for 1 week however very different today. She typically lives at home with home care per discussion by the ER physician with the patient's who is no longer available to review history. He did report to the ER provider that previously when the patient became altered like this it was secondary to a urinary tract infection or dehydration. Indicates that she has had no significant complaints pain or problems and had denied headaches, fevers or chills, chest pain or shortness of breath, cough or urinary symptoms. She has had no recent history of falls or trauma. In the ER the patient was evaluated with CT of the head which demonstrates mild chronic microvascular ischemic changes but no intracranial pathology, a chest x-ray which was negative for acute cardiopulmonary pathology. On laboratory analysis she does have leukocytosis at 13.3 but no anemia and a lactate of 0.6. On chemistry electrolytes are within normal limits with a BUN of 58 and a creatinine of 2 5. A urinalysis was completed which was unremarkable. A tox screen was completed which was positive for opiates and oxycodone of which the patient is prescribed however she is noted to have salicylate level of 48.5 and Tylenol level 43. Toxicity findings were reviewed with patient's in the ER by Dr. Mccall he denies the patient has been taking aspirin or Tylenol and does not recall any home medications containing those products on which she could become toxic. An ABG was drawn which shows a pH of 7.37, pCO2 of 20.2, PO2 of 95 and a bicarb 12 with a base excess of -14. In the ER multiple attempts were made to establish IV access including peripheral IVs, internal jugular and subclavian access without success, finally 22 gauge was established the right hand. On my encounter with the patient she is awake but unable communicate effectively with inappropriate words and inability to form sentences. She does respond yes and no questions to the extent she indicates she does have back pain but does not have a headache is not dizzy, she has no chest pain or difficulty breathing. She has no abdominal pain or nausea, and has had no urinary symptoms. Patient History Medical History COPD (chronic obstructive pulmonary disease) (Acute) History of recurrent UTIs (Acute) Hypertension (Acute) Neuropathy (Acute) Renal disease (Acute) Chronic pain (Acute) GI bleeding (Acute) Family History Mother No known health problems Father No known health problems Social History household members: significant other and caregiver Smoking Status: Former smoker alcohol intake: current Comment: Unable to obtain surgical history. Family & Social History Family History Mother No known health problems Father No known health problems Social History: household members significant other,caregiver Safety & Behavioral: Feels Safe in Current Yes Environment Tobacco & Substance use: Smoking Status Former smoker alcohol intake current alcohol intake frequency holiday/special occasion Substance Use Type does not use Comment: History is limited due to the unavailability the patient's in level of confusion an impaired communication of the patient. She is and lives with her in [place]. Family history is reviewed from the medical record. Smoking: Prior smoker unknown duration or quantity, unknown date of quitting smoking Alcohol consumption: Positive quantity unknown Drug use: No report of recreational pharmaceuticals or cannabis use Advanced directive: At this time the patient's cannot be contacted and is not available to establish preference for care. This time the patient will be made full code until such time information be clarified. Meds Home Medications Medication Instructions Recorded Confirmed Type metoprolol tartrate 25 mg PO BID #0 04/24/17 09/18/18 History alendronate 1 tab PO QWEEK 06/11/18 09/18/18 History gabapentin 600 mg PO TID 06/11/18 09/18/18 History ranitidine HCl 150 mg PO BID 07/29/18 09/18/18 History ipratropium-albuterol 3 ml INHALATION Q6-8H PRN #90 ml 07/30/18 09/18/18 Rx ondansetron 4 mg PO TID PRN #10 tab 08/17/18 Rx albuterol sulfate [Ventolin HFA] 2 puff INHALATION Q4-6H PRN 09/18/18 09/18/18 History naloxone [Narcan] 1 spray INTRANASAL PRN PRN 09/18/18 09/18/18 History oxycodone 5 mg PO Q4-6H PRN 09/18/18 09/18/18 History sucralfate 1 g PO QID 09/18/18 09/18/18 History alendronate 09/19/18 History alendronate 09/19/18 History carisoprodol 09/19/18 History carisoprodol 09/19/18 History carisoprodol 09/19/18 History ondansetron 09/19/18 History ondansetron 09/19/18 History Allergies Allergy/AdvReac Type Severity Reaction Status Date / Time amitriptyline [AMITRIPTYLINE] Allergy Unknown Verified 09/18/18 17:25 tramadol [TRAMADOL] Allergy Unknown Verified 09/18/18 17:25 Review of Systems Review of Systems unobtainable due to mental status (Patient is unable to communicate effectively but is able to provide scant information is noted in the HPI.) Exam Vital Signs (past 8 hours): - 09/18/18 19:30 09/18/18 20:12 09/18/18 20:30 Temperature Pulse Rate 94 H 107 H 108 H Respiratory Rate 12 17 15 Blood Pressure Blood Pressure [Left Arm] 159/71 H 159/71 H 138/80 Pulse Oximetry 100 100 100 09/18/18 21:00 09/18/18 21:30 09/18/18 22:00 Temperature Pulse Rate 103 H 97 H 102 H Respiratory Rate 13 11 L 10 L Blood Pressure Blood Pressure [Left Arm] 140/71 154/100 H 125/65 Pulse Oximetry 100 100 100 09/18/18 22:30 09/19/18 00:04 09/19/18 01:03 Temperature 98.9 F Pulse Rate 97 H 115 H 96 H Respiratory Rate 11 L 20 10 L Blood Pressure 126/70 123/80 Blood Pressure [Left Arm] 125/65 Pulse Oximetry 100 100 99 09/19/18 02:13 09/19/18 03:00 Temperature Pulse Rate 96 H 89 Respiratory Rate 15 20 Blood Pressure 130/63 121/49 L Blood Pressure [Left Arm] Pulse Oximetry 100 99 Oxygen Delivery Method Room Air Narrative Exam Narrative: General: Well developed, well nourished, in no acute distress. Skin: Warm, dry, pink, no rashes, no visible lesions HEENT: Normocephalic, PERRLA, unable to assess EOMs for lack of cooperation, conjunctiva moist, sclera is anicteric, hearing grossly normal, no rhinorrhea, oropharynx not examined due to lack of cooperation patient, no cervical lymphadenopathy Neck: Supple, no masses, no hyromegaly or nodules, trachea midline, no JVD, no supraclavicular lymphadenopathy Cardiac: Regular rate and rhythm, S1-S2, 1/6 systolic murmur murmur, no gallops or rubs, 2+ radial pulse, 1+ dorsalis pedis pulse, capillary refill is brisk, no edema Chest: Symmetrical movement, breathing non labored,, no retractions, no cough present, no apparent pain on AP and lateral compression, BS equal bilateral without coarseness, crackles or wheezes Abdomen: Soft, no epigastric or abdominal tenderness or guarding, no masses or organomegaly, BS normal. Back: No tenderness to palpation Extremities: Intact passive ROM, well-healed surgical scar right elbow and left ankle, no synovial effusions, strength 4/5 bilateral upper extremities, 3/5 bilateral lower extremitie awake s Neuro: Awake, will track, symmetrical face ease, no ptosis, symmetrical facial movement, impaired mental status, bilateral lower extremity neuropathy Psych: Perseveration, low level of cooperation, no agitation Objective Labs Result Diagrams: 09/18/18 18:20 09/18/18 18:20 Labs: Laboratory Results - last 24 hr 09/18/18 09/18/18 09/18/18 18:20 18:20 18:20 WBC 13.3 H RBC 3.68 L Hgb 11.6 L Hct 36.1 MCV 98.3 MCH 31.6 MCHC 32.1 RDW 17.0 H Plt Count 524 H Neut % (Auto) 67.4 Lymph % (Auto) 25.5 [place] % (Auto) 4.7 Eos % (Auto) 0.6 L Baso % (Auto) 1.8 Neut # (Auto) 8900 H Lymph # (Auto) 3400 [place] # (Auto) 600 Eos # (Auto) 100 Baso # (Auto) 200 H ABG pH ABG pCO2 ABG pO2 ABG HCO3 ABG Total CO2 ABG O2 Saturation ABG Base Excess FiO2 Sodium 138 Potassium 4.3 Chloride 106 Carbon Dioxide 17 L BUN 58 H Creatinine 2.50 H Estimated GFR 19.3 L BUN/Creatinine Ratio 23.2 H Glucose 129 H Lactate Calcium 9.8 Total Bilirubin 0.3 AST 31 ALT 24 Alkaline Phosphatase 102 Total Protein 8.2 Albumin 4.5 Globulin 3.7 Albumin/Globulin Ratio 1.2 Procalcitonin < 0.05 Urine RBC Urine WBC Urine Bacteria Ur Culture Indicated? Nasal Screen MRSA (PCR) Salicylates Urine Opiates Screen Ur Oxycodone Screen Urine Methadone Screen Acetaminophen Ur Barbiturates Screen U Tricyclic Antidepress Ur Phencyclidine Scrn Ur Amphetamines Screen U Methamphetamines Scrn Ur MDMA Scrn (Ecstasy) U Benzodiazepines Scrn Urine Cocaine Screen U Marijuana (THC) Screen Ethyl Alcohol 09/18/18 09/18/18 09/18/18 18:20 18:20 20:48 WBC RBC Hgb Hct MCV MCH MCHC RDW Plt Count Neut % (Auto) Lymph % (Auto) [place] % (Auto) Eos % (Auto) Baso % (Auto) Neut # (Auto) Lymph # (Auto) [place] # (Auto) Eos # (Auto) Baso # (Auto) ABG pH ABG pCO2 ABG pO2 ABG HCO3 ABG Total CO2 ABG O2 Saturation ABG Base Excess FiO2 Sodium Potassium Chloride Carbon Dioxide BUN Creatinine Estimated GFR BUN/Creatinine Ratio Glucose Lactate 0.6 L Calcium Total Bilirubin AST ALT Alkaline Phosphatase Total Protein Albumin Globulin Albumin/Globulin Ratio Procalcitonin Urine RBC Urine WBC Urine Bacteria Ur Culture Indicated? Nasal Screen MRSA (PCR) Salicylates 48.5 H* Urine Opiates Screen Positive H Ur Oxycodone Screen Positive H Urine Methadone Screen Negative Acetaminophen 63 H* Ur Barbiturates Screen Negative U Tricyclic Antidepress Negative Ur Phencyclidine Scrn Negative Ur Amphetamines Screen Negative U Methamphetamines Scrn Negative Ur MDMA Scrn (Ecstasy) Negative U Benzodiazepines Scrn Negative Urine Cocaine Screen Negative U Marijuana (THC) Screen Negative Ethyl Alcohol < 10 09/18/18 09/18/18 09/18/18 21:08 22:21 23:10 WBC RBC Hgb Hct MCV MCH MCHC RDW Plt Count Neut % (Auto) Lymph % (Auto) [place] % (Auto) Eos % (Auto) Baso % (Auto) Neut # (Auto) Lymph # (Auto) [place] # (Auto) Eos # (Auto) Baso # (Auto) ABG pH 7.37 ABG pCO2 20.2 L* ABG pO2 95 ABG HCO3 12 L ABG Total CO2 12 L ABG O2 Saturation 97 ABG Base Excess -14.0 L FiO2 21 Sodium Potassium Chloride Carbon Dioxide BUN Creatinine Estimated GFR BUN/Creatinine Ratio Glucose Lactate Calcium Total Bilirubin AST ALT Alkaline Phosphatase Total Protein Albumin Globulin Albumin/Globulin Ratio Procalcitonin Urine RBC None seen Urine WBC 1-5/hpf Urine Bacteria Occasional (0-1) D Ur Culture Indicated? Specimen cultured Nasal Screen MRSA (PCR) Negative for mrsa Salicylates Urine Opiates Screen Ur Oxycodone Screen Urine Methadone Screen Acetaminophen Ur Barbiturates Screen U Tricyclic Antidepress Ur Phencyclidine Scrn Ur Amphetamines Screen U Methamphetamines Scrn Ur MDMA Scrn (Ecstasy) U Benzodiazepines Scrn Urine Cocaine Screen U Marijuana (THC) Screen Ethyl Alcohol Assessment & Plan Plan: Assessment/Plan Narrative: This 67-year-old female is admitted to the intensive care unit related to the high risk of complications acidosis potential for seizures and close monitoring for polysubstance toxicity. 1. Salicylate toxicity, present on admission acute -patient is poor historian and is unable to enlighten providers as to how the patient would obtain aspirin -the patient is typically able to function sufficiently at home with caregivers -salicylate level is 48.5 -patient is compensated metabolic acidosis with respiratory alkalosis with a pH of 7.37, pCO2 20.2, PO2 of 95 and a bicarb of 12 with a base deficit of 14. -anion gap is calculated at 20 -patient started on a bicarb drip 2. Acetaminophen toxicity, present on admission, acute -as with aspirin above origin of excessive acetaminophen is unknown. -Tylenol level is 63 -poison Control has been contacted and treated with acetylcysteine protocol 3. Chronic kidney disease stage 3, chronic -creatinine was 1.6 one month ago on evaluation today is found to be 2.5 with a BUN of 58. -patient with significantly worsening renal function now categorized as stage IV based on the GFR of 19.3. -this likely represents worsening function related to dehydration -gabapentin is held and likely toxic related to dose of 600 mg 3 times daily in relation to the severely impaired renal clearance. -patient will be rehydrated and closely monitor renal function. -will avoid renal toxic agents 4. Acute metabolic encephalopathy, present on admission -believed to be in part related to dehydration and possibly urinary tract infection -tox screen is positive for opiate and patient is prescribed oxycodone which will be continued for pain control but minimized -patient will be rehydrated and closely monitor renal function -will culture urine previously sent to the lab since the patient has received antibiotics -will consult social media marketing specialist to evaluate safety for discharge 5. COPD, chronic, stable -patient without hypoxemia and able to compensate adequately for the metabolic acidosis. -RT to consult to evaluate and treat -patient is on DuoNeb at home which will be continued q.6 hours as needed 6. Alcohol abuse, chronic not in evidence today -tox screen is negative for alcohol and not complicit in altered mental status 7. Neuropathy, present on admission, presumed stable -patient typically taking gabapentin 600 mg 3 times daily The patient is admitted to critical care related to severity of disease and high risk for complications requiring constant close monitoring. Anticipated length of stay is past 2 midnights. Critical care time: 45 min
[2018-09-19] MEDS: DEXTROSE 5% IV ×2 (03:26→08:08)
[2018-09-19] MEDS: ACETYLCYSTEINE IV ×2 (03:26→08:08)
[2018-09-19] MEDS: WATER IV ×2 (03:26→08:08)
[2018-09-19 05:42] LABS: INR 1.5 (0.9-1.3); Prothrombin Time 17.3 SECONDS (10.1-12.7)
[2018-09-19 05:45] LABS: PTT Partial Thromboplastin Tim 40 SECONDS (26.4-36.2)
[2018-09-19 08:18] LABS: Add Manual Diff / Slide Review NO; Basophils Absolute Auto 100 /uL (0-100); Eosinophils Absolute Auto 200 /uL (0-450); Eosinophils Percent Auto 1.4 % (2-4); Hematocrit 32.4 % (36-46); Hemoglobin 10.5 g/dL (12.0-16.0); Lymphocytes Absolute Auto 2500 /uL (1100-4500); Lymphocytes Percent Auto 18.9 % (25-40); Mean Corpuscular HGB Conc 32.5 % (30-36); Mean Corpuscular Hemoglobin 31.6 PG (26-34); Mean Corpuscular Volume 97.3 fL (80-100); Monocytes Absolute Auto 800 /uL (0-900); Monocytes Percent Auto 5.9 % (3-14); Neutrophils Absolute Auto 9500 /uL (1500-7000); Neutrophils Percent Auto 72.8 % (50-75); Platelet Count 465 X10^3/uL (150-400); Red Blood Cell Count 3.33 X10^6/uL (4.0-5.2)
[2018-09-19] MEDS: METOPROLOL IR 25 MG TABLET PO ×2 (08:42→21:20)
[2018-09-19] MEDS: PANTOPRAZOLE 40 MG TABLET PO (08:42)
[2018-09-19] MEDS: SUCRALFATE 1 GM TABLET PO ×4 (08:42→21:20)
[2018-09-19 08:43] LABS: Acetaminophen < 10 ug/mL (10-30); BUN Creatinine Ratio 26.5 (6-22); Blood Urea Nitrogen 45 mg/dL (7-17); Calcium 8.8 mg/dL (8.4-10.2); Carbon Dioxide 16 mmol/L (22-32); Chloride 106 mmol/L (98-107); Estimated Glomerular Filt Rate 30.1 mL/min (>60); Glucose 146 mg/dL (80-110); HEMOLYSIS < 15 (0-50); Magnesium 2.3 mg/dL (1.6-2.3); Phosphorous 3.2 mg/dL (2.8-4.1); Potassium 3.1 mmol/L (3.4-5.1); Sodium 141 mmol/L (137-145)
[2018-09-19] MEDS: ALBUTEROL/IPRATROPIUM 3 ML AMPUL INH (08:48)
[2018-09-19] MEDS: SODIUM BICARB 8.4% VIAL 150 MEQ in DEXTROSE 5% WATER 1,000 ML IV (10:09)
[2018-09-19 10:27] LABS: Salicylate 33.9 mg/dL (<20)
--- NOTE | 2018-09-19 11:38 | P.PN_ITS ---
Subjective Date Patient Seen: 09/19/18 Time Patient Seen: 11:36 Interval history: She is seen today to follow up the altered mental status, metabolic encephalopathy, salicylate toxicity, acetaminophen toxicity, chronic pain and hypokalemia. The potassium level is 3.1. She is steadily waking up and interactive. She does recognize me today. She says she still lives in [place] with her Syed. Exam Vital Signs (past 8 hours): - 09/19/18 04:03 09/19/18 05:09 09/19/18 06:17 Temperature 98.7 F Pulse Rate 93 H 96 H 98 H Respiratory Rate 20 11 L 17 Blood Pressure 118/66 122/59 L 130/69 Pulse Oximetry 99 99 100 09/19/18 07:00 09/19/18 08:00 09/19/18 08:48 Temperature 97.8 F 97.6 F Pulse Rate 95 H 102 H 104 H Respiratory Rate 12 16 12 Blood Pressure 133/66 155/71 H Pulse Oximetry 100 100 100 09/19/18 09:00 Temperature 98.4 F Pulse Rate 111 H Respiratory Rate 20 Blood Pressure 149/77 H Pulse Oximetry 100 Oxygen Delivery Method Room Air Narrative Exam Narrative: Alert and oriented x3, with no apparent distress. She is still somewhat internally distracted. Heart is regular rate and rhythm without murmur. Lungs are clear to auscultation bilaterally. Extremities have no ankle edema. A Centeno catheter is present. Objective Labs Result Diagrams: 09/19/18 07:55 09/19/18 07:55 Labs: Laboratory Results - last 24 hr 09/18/18 09/18/18 09/18/18 18:20 18:20 18:20 WBC 13.3 H RBC 3.68 L Hgb 11.6 L Hct 36.1 MCV 98.3 MCH 31.6 MCHC 32.1 RDW 17.0 H Plt Count 524 H Neut % (Auto) 67.4 Lymph % (Auto) 25.5 [place] % (Auto) 4.7 Eos % (Auto) 0.6 L Baso % (Auto) 1.8 Neut # (Auto) 8900 H Lymph # (Auto) 3400 [place] # (Auto) 600 Eos # (Auto) 100 Baso # (Auto) 200 H PT INR APTT ABG pH ABG pCO2 ABG pO2 ABG HCO3 ABG Total CO2 ABG O2 Saturation ABG Base Excess FiO2 Sodium 138 Potassium 4.3 Chloride 106 Carbon Dioxide 17 L BUN 58 H Creatinine 2.50 H Estimated GFR 19.3 L BUN/Creatinine Ratio 23.2 H Glucose 129 H Lactate Calcium 9.8 Phosphorus Magnesium Total Bilirubin 0.3 AST 31 ALT 24 Alkaline Phosphatase 102 Total Protein 8.2 Albumin 4.5 Globulin 3.7 Albumin/Globulin Ratio 1.2 Procalcitonin < 0.05 Urine RBC Urine WBC Urine Bacteria Ur Culture Indicated? Nasal Screen MRSA (PCR) Salicylates Urine Opiates Screen Ur Oxycodone Screen Urine Methadone Screen Acetaminophen Ur Barbiturates Screen U Tricyclic Antidepress Ur Phencyclidine Scrn Ur Amphetamines Screen U Methamphetamines Scrn Ur MDMA Scrn (Ecstasy) U Benzodiazepines Scrn Urine Cocaine Screen U Marijuana (THC) Screen Ethyl Alcohol 09/18/18 09/18/18 09/18/18 18:20 18:20 20:48 WBC RBC Hgb Hct MCV MCH MCHC RDW Plt Count Neut % (Auto) Lymph % (Auto) [place] % (Auto) Eos % (Auto) Baso % (Auto) Neut # (Auto) Lymph # (Auto) [place] # (Auto) Eos # (Auto) Baso # (Auto) PT INR APTT ABG pH ABG pCO2 ABG pO2 ABG HCO3 ABG Total CO2 ABG O2 Saturation ABG Base Excess FiO2 Sodium Potassium Chloride Carbon Dioxide BUN Creatinine Estimated GFR BUN/Creatinine Ratio Glucose Lactate 0.6 L Calcium Phosphorus Magnesium Total Bilirubin AST ALT Alkaline Phosphatase Total Protein Albumin Globulin Albumin/Globulin Ratio Procalcitonin Urine RBC Urine WBC Urine Bacteria Ur Culture Indicated? Nasal Screen MRSA (PCR) Salicylates 48.5 H* Urine Opiates Screen Positive H Ur Oxycodone Screen Positive H Urine Methadone Screen Negative Acetaminophen 63 H* Ur Barbiturates Screen Negative U Tricyclic Antidepress Negative Ur Phencyclidine Scrn Negative Ur Amphetamines Screen Negative U Methamphetamines Scrn Negative Ur MDMA Scrn (Ecstasy) Negative U Benzodiazepines Scrn Negative Urine Cocaine Screen Negative U Marijuana (THC) Screen Negative Ethyl Alcohol < 10 09/18/18 09/18/18 09/18/18 21:08 22:21 23:10 WBC RBC Hgb Hct MCV MCH MCHC RDW Plt Count Neut % (Auto) Lymph % (Auto) [place] % (Auto) Eos % (Auto) Baso % (Auto) Neut # (Auto) Lymph # (Auto) [place] # (Auto) Eos # (Auto) Baso # (Auto) PT INR APTT ABG pH 7.37 ABG pCO2 20.2 L* ABG pO2 95 ABG HCO3 12 L ABG Total CO2 12 L ABG O2 Saturation 97 ABG Base Excess -14.0 L FiO2 21 Sodium Potassium Chloride Carbon Dioxide BUN Creatinine Estimated GFR BUN/Creatinine Ratio Glucose Lactate Calcium Phosphorus Magnesium Total Bilirubin AST ALT Alkaline Phosphatase Total Protein Albumin Globulin Albumin/Globulin Ratio Procalcitonin Urine RBC None seen Urine WBC 1-5/hpf Urine Bacteria Occasional (0-1) D Ur Culture Indicated? Specimen cultured Nasal Screen MRSA (PCR) Negative for mrsa Salicylates Urine Opiates Screen Ur Oxycodone Screen Urine Methadone Screen Acetaminophen Ur Barbiturates Screen U Tricyclic Antidepress Ur Phencyclidine Scrn Ur Amphetamines Screen U Methamphetamines Scrn Ur MDMA Scrn (Ecstasy) U Benzodiazepines Scrn Urine Cocaine Screen U Marijuana (THC) Screen Ethyl Alcohol 09/19/18 09/19/18 09/19/18 04:55 07:55 07:55 WBC 13.0 H RBC 3.33 L Hgb 10.5 L Hct 32.4 L MCV 97.3 MCH 31.6 MCHC 32.5 RDW 17.0 H Plt Count 465 H Neut % (Auto) 72.8 Lymph % (Auto) 18.9 L [place] % (Auto) 5.9 Eos % (Auto) 1.4 L Baso % (Auto) 1.0 Neut # (Auto) 9500 H Lymph # (Auto) 2500 [place] # (Auto) 800 Eos # (Auto) 200 Baso # (Auto) 100 PT 17.3 H INR 1.5 H APTT 40 H D ABG pH ABG pCO2 ABG pO2 ABG HCO3 ABG Total CO2 ABG O2 Saturation ABG Base Excess FiO2 Sodium 141 Potassium 3.1 L D Chloride 106 Carbon Dioxide 16 L BUN 45 H Creatinine 1.70 H Estimated GFR 30.1 L BUN/Creatinine Ratio 26.5 H Glucose 146 H Lactate Calcium 8.8 Phosphorus 3.2 Magnesium 2.3 Total Bilirubin AST ALT Alkaline Phosphatase Total Protein Albumin Globulin Albumin/Globulin Ratio Procalcitonin Urine RBC Urine WBC Urine Bacteria Ur Culture Indicated? Nasal Screen MRSA (PCR) Salicylates 33.9 H* Urine Opiates Screen Ur Oxycodone Screen Urine Methadone Screen Acetaminophen < 10 L Ur Barbiturates Screen U Tricyclic Antidepress Ur Phencyclidine Scrn Ur Amphetamines Screen U Methamphetamines Scrn Ur MDMA Scrn (Ecstasy) U Benzodiazepines Scrn Urine Cocaine Screen U Marijuana (THC) Screen Ethyl Alcohol Assessment & Plan Plan: Assessment/Plan Narrative: This 67-year-old female was admitted to the intensive care unit early this morning related to the high risk of complications and potential for seizures and close monitoring for polysubstance toxicity. 1. Salicylate toxicity, present on admission acute -patient is poor historian and is unable to enlighten providers as to how the patient would obtain aspirin. To me she admits to taking aspirin. This appears to be directed at her pain. -the patient is typically able to function sufficiently at home with caregivers -salicylate level was 48.5 -patient is compensated metabolic acidosis with respiratory alkalosis with a pH of 7.37, pCO2 20.2, PO2 of 95 and a bicarb of 12 with a base deficit of 14. -anion gap is calculated at 20 -patient started on a bicarb drip which will be adjusted based on the repeat salicylate level in conjunction with conversations with poison Control. 2. Acetaminophen toxicity, present on admission, acute -as with aspirin above origin of excessive acetaminophen is unknown. To me she admits to taking Tylenol for pain. -Tylenol level was 63 -poison Control has been contacted and treated with acetylcysteine protocol, with LFT to be rechecked this afternoon before the protocol is complete. 3. Chronic kidney disease stage 3, chronic -creatinine was 1.6 one month ago on evaluation today is found to be 2.5 with a BUN of 58. -patient with significantly worsening renal function now categorized as stage IV based on the GFR of 19.3. -this likely represents worsening function related to dehydration -gabapentin is held and likely toxic related to dose of 600 mg 3 times daily in relation to the severely impaired renal clearance. -patient will continue to be rehydrated and closely monitor renal function. -will avoid renal toxic agents 4. Acute metabolic encephalopathy, present on admission -believed to be in part related to dehydration and possibly urinary tract infection -tox screen is positive for opiate and patient is prescribed oxycodone which will be continued for pain control but minimized -patient will be rehydrated and closely monitor renal function -will culture urine previously sent to the lab since the patient has received antibiotics -will consult older adult social work specialist to evaluate safety for discharge 5. COPD, chronic, stable -patient without hypoxemia and able to compensate adequately for the metabolic acidosis. -RT to consult to evaluate and treat -patient is on DuoNeb at home which will be continued q.6 hours as needed 6. Alcohol abuse, chronic not in evidence today -tox screen is negative for alcohol and not complicit in altered mental status 7. Neuropathy, present on admission, presumed stable -patient typically taking gabapentin 600 mg 3 times daily which will need to be held. At this point she is waking up, interacting more normally, and appears to be doing well.
--- NOTE | 2018-09-19 11:42 | PC.NURSE ---
Spoke with poison control via telephone. Reviewed lab results, VS, pt condition. Poison control recommends trending salicylate level q 4-6 hours, stopping bicarb gtt when salicylate level less than 30, continuing acetylcysteine, rechecking liver function and INR 2 hours before acetylcysteine is complete and having provider evaluate necessity for an additional 16 hours of acetylcysteine, ordering potassium replacement, monitoring electrolytes. Called to Dr. Kolb. Reviewed poison control recs. TORB to enter lab orders. Written order for PO K+. Pt has been sitting up to chair since about 0800 in no acute distress. Oriented to self, family, and Dr. Kolb but otherwise confused to date/time, location and situation. Speech is clear but responses are delayed at times. VS have remained stable. Lungs CTA on RA. Centeno draining clear yellow urine to gravity. Pt is acute care status with telemetry monitoring. Using non skid socks, bed/chair alarm, reorientation, and direct observation with frequent rounding d/t high fall risk.
[2018-09-19] MEDS: POTASSIUM CHLORIDE 20 MEQ TAB 40 MEQ PO (12:15)
[2018-09-19 12:35] LABS: Salicylate 29.6 mg/dL (<20)
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
[2018-09-19 17:04] LABS: Salicylate 24.2 mg/dL (<20)
[2018-09-19] MEDS: OXYCODONE 5 MG/5 ML ORAL SOLUTION PO (18:37)
[2018-09-19] MEDS: SODIUM CHLORIDE 0.9% 1,000 ML 50 ML IV (18:39)
[2018-09-19 20:29] LABS: Enterococcus species Not Detected (Not Detect); Listeria monocytogenes Not Detected (Not Detect); Methicillin-resistant gene Detected (Not Detect)
[2018-09-19 20:30] LABS: Acinetobacter baumannii Not Detected (Not Detect); Candida albicans Not Detected (Not Detect); Candida glabrata Not Detected (Not Detect); Candida krusei Not Detected (Not Detect); Candida parapsilosis Not Detected (Not Detect); Candida tropicalis Not Detected (Not Detect); E. coli Not Detected (Not Detect); Enterobacter cloacae complex Not Detected (Not Detect); Enterobacteriaceae species Not Detected (Not Detect); Haemophilus influenzae Not Detected (Not Detect); Neisseria meningitidis Not Detected (Not Detect); Proteus species Not Detected (Not Detect); Pseudomonas aeruginosa Not Detected (Not Detect); Serratia marcescens Not Detected (Not Detect); Streptococcus agalactiae (Gr B Not Detected (Not Detect); Streptococcus pneumonia Not Detected (Not Detect); Streptococcus pyogenes (Gr A) Not Detected (Not Detect); Streptococcus species Not Detected (Not Detect)
[2018-09-19 22:50] LABS: INR 1.4 (0.9-1.3); Prothrombin Time 15.9 SECONDS (10.1-12.7)
[2018-09-19] MEDS: OXYCODONE 5 MG/5 ML ORAL SOLUTION 10 MG PO (22:50)
[2018-09-19 22:54] LABS: Alanine Aminotransferase 21 IU/L (9-52); Albumin 3.3 g/dL (3.5-5.0); Albumin Globulin Ratio 1.2 (1.0-2.8); Alkaline Phosphatase 61 U/L (38-126); Aspartate Aminotransferase 19 IU/L (14-36); BUN Creatinine Ratio 24.3 (6-22); Bilirubin Total 0.2 mg/dL (0.2-1.3); Blood Urea Nitrogen 34 mg/dL (7-17); Calcium 8.3 mg/dL (8.4-10.2); Carbon Dioxide 25 mmol/L (22-32); Chloride 102 mmol/L (98-107); Estimated Glomerular Filt Rate 37.6 mL/min (>60); Globulin 2.7 g/dL (1.7-4.1); Glucose 93 mg/dL (80-110); HEMOLYSIS < 15 (0-50); Potassium 3.3 mmol/L (3.4-5.1); Sodium 137 mmol/L (137-145)
[2018-09-20] VITALS: BP 132/63; PULSE 66; RESP 18; TEMP 35.9; O2SAT 99
--- NOTE | 2018-09-20 00:22 | PC.NURSE ---
Addendum entered by Reji Herrera R.N. 09/20/18 01:23: 0120: Poison control called to ask for update on patient. Original Note: Waist Pleater Note: 0000: Awake, watching TV. Denies discomfort. PICC in place in lt upper arm, with dressing cdi, with Acetylcystine infusion nearly finished, and NS infusing at 50cc/hr. Pt remains on telemetry.
[2018-09-20] MEDS: OXYCODONE IR 5 MG TABLET 10 MG PO ×3 (03:08→10:44)
[2018-09-20 04:00] VITALS: BP 143/84; PULSE 74; RESP 16; TEMP 36.3; O2SAT 98
[2018-09-20] MEDS: PANTOPRAZOLE 40 MG TABLET PO (06:53)
[2018-09-20 06:57] LABS: Add Manual Diff / Slide Review NO; Basophils Absolute Auto 200 /uL (0-100); Basophils Percent Auto 2.5 % (0-2); Eosinophils Absolute Auto 200 /uL (0-450); Eosinophils Percent Auto 3.3 % (2-4); Hematocrit 26.6 % (36-46); Lymphocytes Absolute Auto 2500 /uL (1100-4500); Lymphocytes Percent Auto 35.3 % (25-40); Mean Corpuscular HGB Conc 33.9 % (30-36); Mean Corpuscular Hemoglobin 32.8 PG (26-34); Mean Corpuscular Volume 96.8 fL (80-100); Monocytes Absolute Auto 600 /uL (0-900); Monocytes Percent Auto 8.2 % (3-14); Neutrophils Absolute Auto 3600 /uL (1500-7000); Neutrophils Percent Auto 50.7 % (50-75); Platelet Count 358 X10^3/uL (150-400); Red Blood Cell Count 2.75 X10^6/uL (4.0-5.2); Red Cell Distribution Width 16.9 % (11.6-14.8); White Blood Cell Count 7.1 X10^3/uL (4.5-11.0)
[2018-09-20 07:07] LABS: BUN Creatinine Ratio 18.7 (6-22); Blood Urea Nitrogen 28 mg/dL (7-17); Calcium 8.7 mg/dL (8.4-10.2); Carbon Dioxide 26 mmol/L (22-32); Chloride 106 mmol/L (98-107); Estimated Glomerular Filt Rate 34.7 mL/min (>60); Glucose 83 mg/dL (80-110); HEMOLYSIS < 15 (0-50); Potassium 3.4 mmol/L (3.4-5.1); Sodium 140 mmol/L (137-145)
[2018-09-20 07:23] LABS: Procalcitonin 0.11 ng/mL (<0.5)
[2018-09-20 07:39] VITALS: BP 120/66; PULSE 72; RESP 12; TEMP 36.9; O2SAT 96
[2018-09-20 07:49] LABS: Salicylate 9.3 mg/dL (<20)
[2018-09-20] MEDS: METOPROLOL IR 25 MG TABLET PO (09:16)
[2018-09-20] MEDS: SUCRALFATE 1 GM TABLET PO ×2 (09:16→11:30)
[2018-09-20 09:40] LABS: Staphylococcus species Detected (Not Detect)
--- NOTE | 2018-09-20 10:30 | PT.IIE ---
Medical History (Last Reviewed 09/19/18 @ 03:42 by NIOCLE Scott) COPD (chronic obstructive pulmonary disease) (Acute) History of recurrent UTIs (Acute) Hypertension (Acute) Neuropathy (Acute) Renal disease (Acute) Chronic pain (Acute) GI bleeding (Acute) Physical Therapy Inpatient Evaluation/Re-Eval M1 PT/OT-IP Prior Functional Status Start: 09/20/18 13:21 Freq: NEEDED Status: Active Protocol: Document 09/20/18 10:30 AB (Rec: 09/20/18 13:31 AB [id number]) Medical Review Prior Functional Status Medical History Reviewed Yes Communication able to make needs known Mobility and Gait pt is modified independent with all mobilities and ambulation without AD but stated that her significant other is always there to assist her with ambulation and provides DOOR MACHINE OPERATOR. Social History Household Members significant other Living Arrangements House Number of Floors (Floors) One Floor Number of Stairs To Enter/Railing? 2 step to enter without rails Home Environment Standard Height Toilet Tub/Shower Home Equipment Manual Wheelchair Additional Social History Comment has a caregiver that comes in to assist with house chores M2 PT-IP Current Condition Start: 09/20/18 13:21 Freq: NEEDED Status: Active Protocol: Document 09/20/18 10:30 AB (Rec: 09/20/18 13:31 AB [id number]) Physical Therapy Current Condition Current Condition Evaluation Date 09/20/18 Treatment Diagnosis salicylate toxicity; difficulty in walking Onset Date 09/18/18 Precautions Other Precautions falls M3 PT-IP Subjective Start: 09/20/18 13:21 Freq: NEEDED Status: Active Protocol: Document 09/20/18 10:30 AB (Rec: 09/20/18 13:31 AB [id number]) Subjective Physical Therapy Visit Type Type Initial Evaluation Visit Start Time 10:30 Visit Stop Time 11:05 Total Visit Minutes 35 Number of CASH MANAGEMENT SPECIALIST Visits 0 Physical Therapy Visit Comments Patient Comments pt agreeable to do PT M4 PT-IP Mobility and Gait Start: 09/20/18 13:21 Freq: NEEDED Status: Active Protocol: Document 09/20/18 10:30 AB (Rec: 09/20/18 13:31 AB [id number]) PT-Bed Mobility Assessment Supine to Sit Supine to Sit Independent Sit to Supine Sit to Supine Independent Scooting Scooting to Edge of Bed Independent PT-Transfer Assessment Sit to and From Stand Sit to and from Stand Standby Assistance Equipment Transfer Assistive Device None Gait Belt Gait Assessment Gait Gait Assistance Required: Contact Guard Assist Minimum Assistance Distance (Feet) 75 Able to Maintain Weight Bearing Status Yes During Gait Assistive Devices Assistive Device None Gait Belt Orthotic/Prosthetic Devices or Brace: No Gait Deviations General Gait Pattern Antalgic Decreased Stride Length Decreased Feet Clearance Factors Limiting Gait Function Factors Limiting Gait Function Decreased Activity Tolerance Decreased Strength Difficulty Following Directions Limited Range of Motion Pain Poor Balance Poor Safety Awareness Comments Gait Comments pt completed ambulation requiring DOOR MACHINE OPERATOR CGA to min A. pt usually holds on to he significant other for support when ambulating. Stair Climbing Assessment Evaluation Level of Assist On Stairs Minimal Assistance 1 Person Assistance Technique/Endurance Stair Climbing Direction Ascend and Descend Stair Climbing Technique Step to Step Number of Steps Climbed 1 Query Text: Stair Climbing Set # Repetitions (reps) 3 Comments Stair Climbing Comments pt completed up/down steps requiring DOOR MACHINE OPERATOR min A and cues. PT-Balance Assessment Sitting Balance and Reactions Static Sitting Balance Ability Good Dynamic Sitting Balance Ability Good Standing Balance and Reactions Static Standing Balance Ability Fair Dynamic Standing Balance Ability Fair Device Used without AD M5 PT-IP Objective Assessments Start: 09/20/18 13:21 Freq: NEEDED Status: Active Protocol: Document 09/20/18 10:30 AB (Rec: 09/20/18 13:31 AB [id number]) Orientation Orientation/Cognition Level of Alertness Alert Orientation Name Age Birthday Month Date Year Day of Week Place Situation Safety Awareness Decreased Safety Awareness Gross Range of Motion Lower Extremity ROM Assessment Bilaterally Impaired Strength Lower Extremity Strength Assessment Bilaterally Impaired Knee 4-/5 Coordination Assessment Gross Coordination Gross Coordination WNL Sensation Assessment Sensation Gross Sensation Left LE Impaired Light Touch Impaired Proprioception (Position) Impaired Sensation Description Numbness Muscle Tone Muscle Tone WNL Yes M6 PT-IP Treatment Start: 09/20/18 13:21 Freq: NEEDED Status: Active Protocol: Document 09/20/18 10:30 AB (Rec: 09/20/18 13:31 AB [id number]) Physical Therapy Treatment Education Education Provided Safety M7 PT-IP Assessment and Plan Start: 09/20/18 13:21 Freq: NEEDED Status: Active Protocol: Document 09/20/18 10:30 AB (Rec: 09/20/18 13:31 AB [id number]) PT Summary Assessment and Plan Potential Rehabilitation Potential Fair Status of Condition at Evaluation Stable Summary Impairments Pain ROM Strength Balance Coordination Sensation Tone Cognition Bed Mobility Transfers Gait Activity Tolerance Assessment Summary pt requiring CGA to min A DOOR MACHINE OPERATOR and has her significant other providing assistance to her at home. pt may go home when medically stable. Goals Transfer Goal Independent Gait Goal Independent Gait Distance 100 Other Goals up/down 2 steps without rails CGA Days to Meet Goals 3 Frequency of Treatment Frequency Of Treatment Once a Day Treatment Plan Physical Therapy Treatment Plan Bed Mobility Training Transfer Training Gait Training Therapeutic Exercise Balance Retraining Post Op Education Discharge Planning Hot or Cold Pack Neuromuscular Re-ed Coordination Retraining Manual Therapy Recommendations To Nursing Amount of Assist Needed 1 Person Assist Discharge Recommendations PT Discharge Recommendations Home with 11/03 Assist
[2018-09-20 11:00] VITALS: BP 132/46; PULSE 65; RESP 18; TEMP 37.5; O2SAT 95
--- NOTE | 2018-09-20 13:07 | PC.NURSE ---
Pt continues to improve. While forgetful at times, her mentation is appropriate. Up to bathroom unassisted and denies feeling light headed or dizzy. Seen by MD and has been discharged home. [place] and PICC line removed.
--- NOTE | 2018-09-20 13:13 | PM.DS.1 ---
History of Present Illness Date Patient Seen: 09/20/18 Time Patient Seen: 13:26 Chief complaint: LETHARGIC, NOT RESPONDING PROPERLY Narrative: This is a 67-year-old female patient with a history of hypertension, COPD, renal disease, neuropathy, alcoholism that presents to the emergency department for altered mental status for 1 week. The patient is brought in by her who indicates that the patient has had not herself for 1 week however very different today. She typically lives at home with home care per discussion by the ER physician with the patient's who is no longer available to review history. He did report to the ER provider that previously when the patient became altered like this it was secondary to a urinary tract infection or dehydration. Indicates that she has had no significant complaints pain or problems and had denied headaches, fevers or chills, chest pain or shortness of breath, cough or urinary symptoms. She has had no recent history of falls or trauma. In the ER the patient was evaluated with CT of the head which demonstrates mild chronic microvascular ischemic changes but no intracranial pathology, a chest x-ray which was negative for acute cardiopulmonary pathology. On laboratory analysis she does have leukocytosis at 13.3 but no anemia and a lactate of 0.6. On chemistry electrolytes are within normal limits with a BUN of 58 and a creatinine of 2 5. A urinalysis was completed which was unremarkable. A tox screen was completed which was positive for opiates and oxycodone of which the patient is prescribed however she is noted to have salicylate level of 48.5 and Tylenol level 43. Toxicity findings were reviewed with patient's in the ER by Dr. Mccall he denies the patient has been taking aspirin or Tylenol and does not recall any home medications containing those products on which she could become toxic. An ABG was drawn which shows a pH of 7.37, pCO2 of 20.2, PO2 of 95 and a bicarb 12 with a base excess of -14. In the ER multiple attempts were made to establish IV access including peripheral IVs, internal jugular and subclavian access without success, finally 22 gauge was established the right hand. On my encounter with the patient she is awake but unable communicate effectively with inappropriate words and inability to form sentences. She does respond yes and no questions to the extent she indicates she does have back pain but does not have a headache is not dizzy, she has no chest pain or difficulty breathing. She has no abdominal pain or nausea, and has had no urinary symptoms. Discharge Providers Date of admission: 09/18/18 22:30 Consults: 09/18/18 23:01 Consult to Respiratory Therapy Evaluate & Treat Comment: neb treatments Physician Instructions: Evaluate and treat 09/19/18 06:05 Consult to Program Coordinator For Residence Life Routine Comment: Polysubstance overdose, unintentional, vulnerable 09/20/18 09:37 Consult to Physical Therapy Evaluate & Treat Comment: Physician Instructions: Evaluate and Treat Discharge provider: Ernie Kolb MD Discharge Date: 09/20/18 Summary Hospital Course: 1. Salicylate toxicity, present on admission acute -She admits to taking aspirin. Her agrees. This appears to be directed at her pain. She denies suicidal intent. -the patient is typically able to function sufficiently at home with caregivers -The admitting salicylate level was 48.5 -patient was in compensated metabolic acidosis with respiratory alkalosis with a pH of 7.37, pCO2 20.2, PO2 of 95 and a bicarb of 12 with a base deficit of 14. -anion gap was calculated at 20 -She was started on a bicarb drip which was stopped yesterday afternoon after the repeat salicylate level in conjunction with conversations with poison Control. 2. Acetaminophen toxicity, present on admission, acute -Origin of excessive acetaminophen is unknown. To me yesterday she admitted to taking Tylenol for pain. Today, with her present she again denies it and denies any Percocet or Vicodin. -Tylenol level was 63 -poison Control was contacted and treated with acetylcysteine protocol, with LFT normal after treatment. 3. Chronic kidney disease stage 3, chronic -creatinine was 1.6 one month ago on evaluation up to 2.5 with a BUN of 58. Now back down to 1.5. -patient with significantly worsening renal function now categorized as stage IV based on the GFR of 19.3, but back up to 34 at discharge. -this likely represents worsening function related to dehydration -gabapentin was held and likely toxic related to dose of 600 mg 3 times daily in relation to the severely impaired renal clearance. 4. Acute metabolic encephalopathy, present on admission -believed to be in part related to dehydration and possibly urinary tract infection -tox screen is positive for opiate and patient is prescribed oxycodone which will be continued for pain control but minimized -Gram negative rods in urine culture - will treat with Septra. 5. COPD, chronic, stable -patient without hypoxemia and able to compensate adequately for the metabolic acidosis. -patient is on DuoNeb at home which will be continued q.6 hours as needed 6. Alcohol abuse, chronic not in evidence today -tox screen is negative for alcohol and not complicit in altered mental status 7. Neuropathy, present on admission, presumed stable -patient typically taking gabapentin 600 mg 3 times daily which was held and will now be cautiously resumed. Exam Vital Signs (past 8 hours): - 09/20/18 07:39 09/20/18 11:00 Temperature 98.5 F 99.5 F Pulse Rate 72 65 Respiratory Rate 12 18 Blood Pressure 120/66 132/46 L Pulse Oximetry 96 95 Oxygen Delivery Method Room Air Narrative Exam Narrative: Alert and oriented x3, in no apparent distress. Heart is regular rate and rhythm without murmur. Lungs are clear to auscultation bilaterally. Extremities have no ankle edema. Objective Labs Result Diagrams: 09/20/18 06:30 09/20/18 06:30 Labs: Laboratory Results - last 24 hr 09/18/18 09/19/18 09/19/18 18:20 16:12 22:35 WBC RBC Hgb Hct MCV MCH MCHC RDW Plt Count Neut % (Auto) Lymph % (Auto) Whitley % (Auto) Eos % (Auto) Baso % (Auto) Neut # (Auto) Lymph # (Auto) Whitley # (Auto) Eos # (Auto) Baso # (Auto) PT 15.9 H INR 1.4 H Sodium Potassium Chloride Carbon Dioxide BUN Creatinine Estimated GFR BUN/Creatinine Ratio Glucose Calcium Total Bilirubin AST ALT Alkaline Phosphatase Total Protein Albumin Globulin Albumin/Globulin Ratio Procalcitonin Salicylates 24.2 H A. baumannii (PCR) Not detected Aura albicans (PCR) Not detected C. glabrata (PCR) Not detected C. krusei (PCR) Not detected C. parapsilosis (PCR) Not detected C. tropicalis (PCR) Not detected Enterobacteriac sp PCR Not detected E. cloacae complex PCR Not detected Enterococcus sp PCR Not detected E. coli (PCR) Not detected H. influenzae (PCR) Not detected Klebsiella oxytoca PCR Not detected Klebsiella pneumoniae Not detected List. monocytogenes PCR Not detected N. meningitidis (PCR) Not detected Proteus species (PCR) Not detected Serratia marcescens PCR Not detected Staphylococcus sp PCR Detected H Staph aureus (PCR) Not detected mecA-Methicil Res Gene Detected H Streptococcus sp PCR Not detected Group A Strep (PCR) Not detected Strep agalactiae (PCR) Not detected Strep pneumoniae (PCR) Not detected P. aeruginosa (PCR) Not detected Jet/B-Vanco Res Genes Not Reportable KPC-Carbap Res Gene PCR Not Reportable 09/19/18 09/20/18 09/20/18 22:35 06:30 06:30 WBC 7.1 RBC 2.75 L Hgb 9.0 L Hct 26.6 L MCV 96.8 MCH 32.8 MCHC 33.9 RDW 16.9 H Plt Count 358 Neut % (Auto) 50.7 D Lymph % (Auto) 35.3 Whitley % (Auto) 8.2 Eos % (Auto) 3.3 Baso % (Auto) 2.5 H Neut # (Auto) 3600 Lymph # (Auto) 2500 Whitley # (Auto) 600 Eos # (Auto) 200 Baso # (Auto) 200 H PT INR Sodium 137 Potassium 3.3 L Chloride 102 Carbon Dioxide 25 BUN 34 H Creatinine 1.40 H Estimated GFR 37.6 L BUN/Creatinine Ratio 24.3 H Glucose 93 Calcium 8.3 L Total Bilirubin 0.2 AST 19 ALT 21 Alkaline Phosphatase 61 Total Protein 6.0 L Albumin 3.3 L Globulin 2.7 Albumin/Globulin Ratio 1.2 Procalcitonin 0.11 Salicylates A. baumannii (PCR) Aura albicans (PCR) C. glabrata (PCR) C. krusei (PCR) C. parapsilosis (PCR) C. tropicalis (PCR) Enterobacteriac sp PCR E. cloacae complex PCR Enterococcus sp PCR E. coli (PCR) H. influenzae (PCR) Klebsiella oxytoca PCR Klebsiella pneumoniae List. monocytogenes PCR N. meningitidis (PCR) Proteus species (PCR) Serratia marcescens PCR Staphylococcus sp PCR Staph aureus (PCR) mecA-Methicil Res Gene Streptococcus sp PCR Group A Strep (PCR) Strep agalactiae (PCR) Strep pneumoniae (PCR) P. aeruginosa (PCR) Jet/B-Vanco Res Genes KPC-Carbap Res Gene PCR 09/20/18 09/20/18 06:30 06:30 WBC RBC Hgb Hct MCV MCH MCHC RDW Plt Count Neut % (Auto) Lymph % (Auto) Whitley % (Auto) Eos % (Auto) Baso % (Auto) Neut # (Auto) Lymph # (Auto) Whitley # (Auto) Eos # (Auto) Baso # (Auto) PT INR Sodium 140 Potassium 3.4 Chloride 106 Carbon Dioxide 26 BUN 28 H Creatinine 1.50 H Estimated GFR 34.7 L BUN/Creatinine Ratio 18.7 Glucose 83 Calcium 8.7 Total Bilirubin AST ALT Alkaline Phosphatase Total Protein Albumin Globulin Albumin/Globulin Ratio Procalcitonin Salicylates 9.3 A. baumannii (PCR) Aura albicans (PCR) C. glabrata (PCR) C. krusei (PCR) C. parapsilosis (PCR) C. tropicalis (PCR) Enterobacteriac sp PCR E. cloacae complex PCR Enterococcus sp PCR E. coli (PCR) H. influenzae (PCR) Klebsiella oxytoca PCR Klebsiella pneumoniae List. monocytogenes PCR N. meningitidis (PCR) Proteus species (PCR) Serratia marcescens PCR Staphylococcus sp PCR Staph aureus (PCR) mecA-Methicil Res Gene Streptococcus sp PCR Group A Strep (PCR) Strep agalactiae (PCR) Strep pneumoniae (PCR) P. aeruginosa (PCR) Jet/B-Vanco Res Genes KPC-Carbap Res Gene PCR Discharge Plan Discharge Plan Patient Disposition: Home Discharge comment: Avoid all Aspirin and Tylenol products. Discharge Med Rec/Prescriptions Prescriptions: New oxycodone 5 mg capsule 5 mg PO Q4-6H PRN (Reason: pain) Qty: 28 RF: 0 sucralfate 1 gram tablet 1 gram PO QACHS Qty: 28 RF: 0 sucralfate 1 gram Tablet 1 gm PO ACHS Qty: 28 RF: 0 sulfamethoxazole-trimethoprim [Bactrim DS] 800-160 mg tablet 1 tab PO BID Qty: 10 RF: 0 Continue metoprolol tartrate 25 MG tablet 25 mg PO BID Qty: 0 RF: 0 alendronate 70 mg tablet 1 tab PO QWEEK RF: 0 gabapentin 300 mg capsule 600 mg PO TID RF: 0 ipratropium-albuterol 0.5 mg-3 mg(2.5 mg base)/3 mL solution for nebulization 3 ml INHALATION Q6-8H PRN (Reason: shortness of breath or wheezing) Qty: 90 RF: 0 ondansetron 4 mg tablet,disintegrating 4 mg PO TID PRN (Reason: nausea and vomiting) Qty: 10 RF: 0 albuterol sulfate 90 mcg/actuation HFA aerosol inhaler 2 puff Inhalation Q4-6H PRN (Reason: Shortness Of Breath) RF: 0 naloxone 4 mg/actuation spray,non-aerosol 1 spray Intranasal PRN PRN (Reason: Opiate Reversal) RF: 0 ranitidine HCl 150 mg tablet 150 mg PO BID Qty: 28 RF: 0 Discontinued sucralfate 1 gram tablet 1 g PO QID RF: 0 oxycodone 5 mg tablet 5 mg PO Q4-6H PRN (Reason: pain) RF: 0 carisoprodol 350 mg tablet 350 mg PO DAILY RF: 0 Follow up/Referrals: Luis Hernandez MD [Family Provider] - 1 Week Provider Discharge Instructions Diet: Regular Discharge Data Attending Provider: Reginaldo Cruz Admit Date/Time: 09/18/18 22:30
--- NOTE | 2018-09-20 14:12 | PC.NURSE ---
Pt given dc paperwork and scripts and taken by wheelchair to ER entrance.
--- NOTE | 2018-09-20 14:43 | CM.DPNOTE ---
Addendum entered by Teri Cohen FRONT TENDER 09/20/18 14:48: IMM reviewed and verbal agreement obtained, pt aware and agreeable to DCP today. Original Note: DC Note: Met w/pt this morning, she stated she was going home and SO Pray was on his way. This FRONT TENDER asked pt if she was getting what she needed at home and felt safe w/ SO Syed? Pt nodded yes and then said her cg might be out of town attending to a family illness this week but she will be okay. Pt is not homebound at this time so does not qualify for home health. P: Home w/ SO and [facility] cgs via pov. AMOR
== END 2018-09-20 14:13 | disposition home or self-care (01) | DRG 917 ==
LOC: ED 22:24 → ICU 09-19 07:23
PROVIDERS: Family Medicine; Admitting Provider Nurse Practitioner Adult Health; Emergency Provider Emergency Medicine; Family Provider Family Medicine; Visit Provider Nurse Practitioner Adult Health
DX: T39.011A Poisoning by aspirin, accidental (unintentional), initial encounter (principal); G93.41 Metabolic encephalopathy; E87.2 Acidosis; E87.3 Alkalosis; N39.0 Urinary tract infection, site not specified; N17.9 Acute kidney failure, unspecified; T39.1X1A Poisoning by 4-Aminophenol derivatives, accidental (unintentional), initial encounter; E86.0 Dehydration; B96.89 Other specified bacterial agents as the cause of diseases classified elsewhere; G62.9 Polyneuropathy, unspecified; G89.29 Other chronic pain; E87.6 Hypokalemia
CPT/HCPCS: 36415; 36592; 36600; 70450; 71045; 80048; 80053; 80305; 80320; 80329; 81003; 81015; 82805; 83605; 83735; 84100; 84145; 85025; 85610; 85730; 87040; 87077; 87086; 87150; 87186; 87205; 87797; 93005; 93041; 94640; 97161; 99285; 99291; 99292; G0480; J0132

== ENCOUNTER 2018-10-28 16:41 | Emergency (ER) | payer MEDICARE, MEDICAID, SELFPAY ==
[2018-09-19 00:19] VITALS: BMI 22.2
[2018-10-28] VITALS (8 sets, daily range): BP systolic 126–161; BP diastolic 62–98; PULSE 68–89; RESP 13–18; TEMP 36.8; O2SAT 100
--- NOTE | 2018-10-28 17:19 | ED_ITS ---
HPI - Weakness <Melisa Koo, DO - Last Filed: 10/29/18 07:54> General Chief complaint: Weakness Stated complaint: Hypotension Time Seen by Provider: 10/28/18 16:44 Source: patient, EMS and old records reviewed Mode of arrival: EMS Limitations: no limitations History of Present Illness HPI Narrative: Patient is a 68-year-old female presenting with increased leg weakness. His she recently was admitted to [facility] September 26 for acute renal failure. His she says she had ATN she had dialysis 4 times her kidney started working again. She was also hyponatremic at that time. His today she was seen for followup by her PCP he said that her blood pressure was quite low and he was worried about her. She does have a history of vasovagal reactions and syncopal episodes as well. However she says that her legs are quite weak and she cannot stand. His she recently fell and hurt her sacrum as well so she does have some pain from that. However she says after she is discha rged she was walking around and ambulating without difficulty today is much different. She says that she has not passed out she does get very lightheaded. She denies any fever or chills MD Complaint: focal weakness (Bilateral lower leg weakness) Related Data Home Medications Medication Instructions Recorded Confirmed metoprolol tartrate 25 mg PO BID #0 04/24/17 09/18/18 alendronate 1 tab PO QWEEK 06/11/18 09/18/18 gabapentin 600 mg PO TID 06/11/18 09/18/18 albuterol sulfate 2 puff INHALATION Q4-6H PRN 09/18/18 09/18/18 naloxone 1 spray INTRANASAL PRN PRN 09/18/18 09/18/18 Previous Rx's Medication Instructions Recorded ipratropium-albuterol 3 ml INHALATION Q6-8H PRN #90 ml 07/30/18 ondansetron 4 mg PO TID PRN #10 tab 08/17/18 oxycodone 5 mg PO Q4-6H PRN #28 cap 09/20/18 ranitidine HCl 150 mg PO BID #28 tab 09/20/18 sucralfate 1 gm PO ACHS #28 tab 09/20/18 sucralfate 1 gram PO QACHS #28 tab 09/20/18 sulfamethoxazole-trimethoprim 1 tab PO BID #10 tab 09/20/18 [Bactrim DS] Allergies Allergy/AdvReac Type Severity Reaction Status Date / Time amitriptyline [AMITRIPTYLINE] Allergy Unknown Verified 10/28/18 17:47 tramadol [TRAMADOL] Allergy Unknown Verified 10/28/18 17:47 Review of Systems <Melisa Koo DO - Last Filed: 10/29/18 07:54> Review of Systems ROS Unobtainable: All systems reviewed & are unremarkable except as noted in HPI and below Constitutional Denies chills, Denies fever(s), Denies lethargy, Denies poor appetite and Reports weakness Eyes Denies change in vision, Denies eye discharge, Denies irritation and Denies loss of vision ENT Ears, Nose, Mouth, and Throat: Denies change in voice, Denies neck pain and Denies sore throat Cardiovascular Denies chest pain, Denies syncope, Denies irregular heart rhythm, Denies lightheadedness, Denies palpitations, Denies dyspnea, Denies dyspnea on exertion and Denies orthopnea Respiratory Denies cough, Denies dyspnea, Denies dyspnea on exertion and Denies wheezing Gastrointestinal Gastrointestinal: Denies abdominal pain, Denies change in bowel habits, Denies diarrhea, Denies nausea and Denies vomiting Musculoskeletal Denies neck pain and Denies numbness Integumentary/Breasts Denies pruritus, Denies erythema, Denies rash and Denies wounds Neurologic Denies syncope, Denies loss of vision, Denies numbness, Denies restless legs and Reports weakness Endocrine Denies palpitations Allergic/Immunologic Denies wheezing PFSH <Melisa Koo DO - Last Filed: 10/29/18 07:54> Family History Mother No known health problems Father No known health problems Social History household members: significant other Smoking Status: Former smoker alcohol intake: current Social History household members: significant other Smoking Status: Former smoker alcohol intake: current Exam <DO Laura Dang Last Filed: 10/29/18 07:54> Initial Vital Signs Initial Vital Signs: Vital Signs Temperature 98.2 F 10/28/18 16:49 Pulse Rate 77 10/28/18 16:49 Respiratory Rate 13 10/28/18 16:49 Blood Pressure 135/72 10/28/18 16:49 Pulse Oximetry 100 10/28/18 16:49 GENERAL: Patient appears awake alert oriented actually appears better than when I have seen her in past HEENT: Head atraumatic,EOMI, pupils reactive, CARDIOVASCULAR: Regular rate and rhythm without murmurs, rubs or gallops. RESPIRATORY: Breath sounds equal bilaterally, no wheezes rales or rhonchi. ABDOMEN: Soft, nontender. Normoactive bowel sounds all 4 quadrants. No guarding or rebound. EXTREMITIES: Normal range of motion, no clubbing or edema. Neurovascularly intact. Chronic right arm atrophy and weakness due to surgery NEUROLOGICAL: Alert and oriented x4.Normal gait and speech. Cranial nerves II through XII grossly intact. SKIN: Warm, dry, no laceration, no petechiae, no rashes or lesions. <Jorge Mccall, DO - Last Filed: 10/29/18 03:46> Initial Vital Signs Initial Vital Signs: Vital Signs Temperature 98.2 F 10/28/18 16:49 Pulse Rate 77 10/28/18 16:49 Respiratory Rate 13 10/28/18 16:49 Blood Pressure 135/72 10/28/18 16:49 Pulse Oximetry 100 10/28/18 16:49 Course <Melisa Koo, DO - Last Filed: 10/29/18 07:54> Orders Ordered: Discontinued Medications Hydromorphone HCl (Dilaudid) 1 mg IV NOW ONE Stop: 10/28/18 18:22 Last Admin: 10/28/18 22:04 Dose: Not Given Sodium Chloride (Normal Saline 0.9%) 1,000 mls @ 1,000 mls/hr IV BOLUS ONE Stop: 10/28/18 18:31 Last Infusion: 10/28/18 19:30 Dose: 0 mls/hr Admin: 10/28/18 17:55 Dose: 1,000 mls/hr Sodium Chloride (Normal Saline 0.9%) 1,000 mls @ 1,000 mls/hr IV BOLUS ONE Stop: 10/28/18 21:12 Last Infusion: 10/28/18 21:16 Dose: 0 mls/hr Admin: 10/28/18 20:22 Dose: 1,000 mls/hr Oxycodone/Acetaminophen (Percocet 5/325) 1 tab PO NOW ONE Stop: 10/28/18 22:00 Last Admin: 10/28/18 22:24 Dose: 1 tab Vital Signs - 8 hr 10/28/18 19:59 10/28/18 20:01 10/28/18 21:00 Pulse Rate 74 74 Pulse Rate [Orthostatic Lying] 71 Pulse Rate [Orthostatic Sitting] 80 Pulse Rate [Orthostatic Standing] 89 Respiratory Rate 18 16 Blood Pressure [Orthostatic Lying] 151/77 H Blood Pressure [Orthostatic Sitting] 161/85 H Blood Pressure [Orthostatic Standing] 145/88 H Blood Pressure [Right Arm] 131/84 126/71 Pulse Oximetry 100 100 10/28/18 22:00 10/28/18 23:05 Pulse Rate 70 72 Pulse Rate [Orthostatic Lying] Pulse Rate [Orthostatic Sitting] Pulse Rate [Orthostatic Standing] Respiratory Rate 16 16 Blood Pressure [Orthostatic Lying] Blood Pressure [Orthostatic Sitting] Blood Pressure [Orthostatic Standing] Blood Pressure [Right Arm] 141/62 H 127/67 Pulse Oximetry 100 100 <Jorge Mccall, DO - Last Filed: 10/29/18 03:46> Orders Ordered: Discontinued Medications Hydromorphone HCl (Dilaudid) 1 mg IV NOW ONE Stop: 10/28/18 18:22 Last Admin: 10/28/18 22:04 Dose: Not Given Sodium Chloride (Normal Saline 0.9%) 1,000 mls @ 1,000 mls/hr IV BOLUS ONE Stop: 10/28/18 18:31 Last Infusion: 10/28/18 19:30 Dose: 0 mls/hr Admin: 10/28/18 17:55 Dose: 1,000 mls/hr Sodium Chloride (Normal Saline 0.9%) 1,000 mls @ 1,000 mls/hr IV BOLUS ONE Stop: 10/28/18 21:12 Last Infusion: 10/28/18 21:16 Dose: 0 mls/hr Admin: 10/28/18 20:22 Dose: 1,000 mls/hr Oxycodone/Acetaminophen (Percocet 5/325) 1 tab PO NOW ONE Stop: 10/28/18 22:00 Last Admin: 10/28/18 22:24 Dose: 1 tab Reevaluation(s) Reevaluation #1: Patient received in sign-out from Dr. Koo. I performed an independent history and physical and have no significant additions to the above. She had been given fluids and felt a small amount better. She was able to ambulate but at the tail end of her walk she began to feel a bit dizzy and it was found that her heart rate had raised about 10 beats. She was given a 2nd L fluid and a repeat creatinine was drawn. This creatinine dropped from 1.9 down to 1.7 which is near her baseline. She is feeling better and ready for dischar Vital Signs - 8 hr 10/28/18 19:59 10/28/18 20:01 10/28/18 21:00 Pulse Rate 74 74 Pulse Rate [Orthostatic Lying] 71 Pulse Rate [Orthostatic Sitting] 80 Pulse Rate [Orthostatic Standing] 89 Respiratory Rate 18 16 Blood Pressure [Orthostatic Lying] 151/77 H Blood Pressure [Orthostatic Sitting] 161/85 H Blood Pressure [Orthostatic Standing] 145/88 H Blood Pressure [Right Arm] 131/84 126/71 Pulse Oximetry 100 100 10/28/18 22:00 10/28/18 23:05 Pulse Rate 70 72 Pulse Rate [Orthostatic Lying] Pulse Rate [Orthostatic Sitting] Pulse Rate [Orthostatic Standing] Respiratory Rate 16 16 Blood Pressure [Orthostatic Lying] Blood Pressure [Orthostatic Sitting] Blood Pressure [Orthostatic Standing] Blood Pressure [Right Arm] 141/62 H 127/67 Pulse Oximetry 100 100 MDM - Weakness <Melisa Koo, - Last Filed: 10/29/18 07:54> Lab Data Attestation: I reviewed the patient's lab results. Result diagrams: 10/28/18 17:45 10/28/18 22:24 Lab Results 10/28/18 10/28/18 10/28/18 Range/Units 14:20 17:45 17:45 WBC 10.0 (4.5-11.0) X10^3/uL RBC 3.14 L (4.0-5.2) X10^6/uL Hgb 9.9 L (12.0-16.0) g/dL Hct 29.9 L (36-46) % MCV 95.1 (80-100) fL MCH 31.4 (26-34) PG MCHC 33.0 (30-36) % RDW 15.5 H (11.6-14.8) % Plt Count 595 H (150-400) X10^3/uL Neut % (Auto) 64.0 (50-75) % Lymph % (Auto) 25.4 (25-40) % [place] % (Auto) 8.3 (3-14) % Eos % (Auto) 1.5 L (2-4) % Baso % (Auto) 0.8 (0-2) % Neut # (Auto) 6400 (1986-7445) /uL Lymph # (Auto) 2600 (4971-0776) /uL [place] # (Auto) 800 (0-900) /uL Eos # (Auto) 200 (0-450) /uL Baso # (Auto) 100 (0-100) /uL Sodium 132 L (137-145) mmol/L Potassium 4.7 (3.4-5.1) mmol/L Chloride 98 (98-107) mmol/L Carbon Dioxide 22 (22-32) mmol/L BUN 19 H (7-17) mg/dL Creatinine 1.90 H (0.52-1.04) mg/dL Estimated GFR 26.4 L (>60) mL/min BUN/Creatinine Ratio 10.0 (6-22) Glucose 92 (80-110) mg/dL Calcium 9.6 (8.4-10.2) mg/dL Total Bilirubin 0.3 (0.2-1.3) mg/dL AST 21 (14-36) IU/L ALT 14 (9-52) IU/L Alkaline Phosphatase 169 H (38-126) U/L Total Protein 8.4 H (6.3-8.2) g/dL Albumin 4.6 (3.5-5.0) g/dL Globulin 3.8 (1.7-4.1) g/dL Albumin/Globulin Ratio 1.2 (1.0-2.8) Urine RBC 0-1/hpf (0-5/HPF) Urine WBC 5-10/hpf H (0-5/HPF) Ur Squamous Epith Cells None seen Urine Bacteria None seen (None) Ur Culture Indicated? Specimen cultured 03/12/19 Range/Units 22:24 WBC (4.5-11.0) X10^3/uL RBC (4.0-5.2) X10^6/uL Hgb (12.0-16.0) g/dL Hct (36-46) % MCV (80-100) fL MCH (26-34) PG MCHC (30-36) % RDW (11.6-14.8) % Plt Count (150-400) X10^3/uL Neut % (Auto) (50-75) % Lymph % (Auto) (25-40) % [place] % (Auto) (3-14) % Eos % (Auto) (2-4) % Baso % (Auto) (0-2) % Neut # (Auto) (9127-4513) /uL Lymph # (Auto) (2857-5439) /uL [place] # (Auto) (0-900) /uL Eos # (Auto) (0-450) /uL Baso # (Auto) (0-100) /uL Sodium (137-145) mmol/L Potassium (3.4-5.1) mmol/L Chloride (98-107) mmol/L Carbon Dioxide (22-32) mmol/L BUN (7-17) mg/dL Creatinine 1.70 H (0.52-1.04) mg/dL Estimated GFR 30.0 L (>60) mL/min BUN/Creatinine Ratio (6-22) Glucose (80-110) mg/dL Calcium (8.4-10.2) mg/dL Total Bilirubin (0.2-1.3) mg/dL AST (14-36) IU/L ALT (9-52) IU/L Alkaline Phosphatase (38-126) U/L Total Protein (6.3-8.2) g/dL Albumin (3.5-5.0) g/dL Globulin (1.7-4.1) g/dL Albumin/Globulin Ratio (1.0-2.8) Urine RBC (0-5/HPF) Urine WBC (0-5/HPF) Ur Squamous Epith Cells Urine Bacteria (None) Ur Culture Indicated? Urine Dip Bedside Urine Glucose Negative Bedside Urine Bilirubin - Negative Bedside Urine Ketone - Negative Urine Specific [place] 1.010 Bedside Urine Occult Blood - Negative Bedside Urine pH 7.0 Bedside Urine Protein - Negative Bedside Urine Urobilinogen - Negative Bedside Urine Nitrite - Negative Bedside Urine Leukocytes +++ 500 Esterase ECG Data Attestation: I personally reviewed and interpreted this ECG as follows: Prior ECG tracings: available for review Interpretation: Normal sinus rhythm rate [address] changes no T-wave inver sathish MDM Narrative Medical decision making narrative: Patient signed out to night stocker provider Dr. Mccall. Awaiting fluid replacement. She will need ambulation trial. She overall appears much better than I have seen her in the past. She now stating that she is sometimes dizzy when she stands up. Continue with IV hydration, and will need re-evaluation. <Jorge Mccall, DO - Last Filed: 10/29/18 03:46> Lab Data Lab Results 10/28/18 10/28/18 10/28/18 Range/Units 14:20 17:45 17:45 WBC 10.0 (4.5-11.0) X10^3/uL RBC 3.14 L (4.0-5.2) X10^6/uL Hgb 9.9 L (12.0-16.0) g/dL Hct 29.9 L (36-46) % MCV 95.1 (80-100) fL MCH 31.4 (26-34) PG MCHC 33.0 (30-36) % RDW 15.5 H (11.6-14.8) % Plt Count 595 H (150-400) X10^3/uL Neut % (Auto) 64.0 (50-75) % Lymph % (Auto) 25.4 (25-40) % [place] % (Auto) 8.3 (3-14) % Eos % (Auto) 1.5 L (2-4) % Baso % (Auto) 0.8 (0-2) % Neut # (Auto) 6400 (9251-4143) /uL Lymph # (Auto) 2600 (6242-9112) /uL [place] # (Auto) 800 (0-900) /uL Eos # (Auto) 200 (0-450) /uL Baso # (Auto) 100 (0-100) /uL Sodium 132 L (137-145) mmol/L Potassium 4.7 (3.4-5.1) mmol/L Chloride 98 (98-107) mmol/L Carbon Dioxide 22 (22-32) mmol/L BUN 19 H (7-17) mg/dL Creatinine 1.90 H (0.52-1.04) mg/dL Estimated GFR 26.4 L (>60) mL/min BUN/Creatinine Ratio 10.0 (6-22) Glucose 92 (80-110) mg/dL Calcium 9.6 (8.4-10.2) mg/dL Total Bilirubin 0.3 (0.2-1.3) mg/dL AST 21 (14-36) IU/L ALT 14 (9-52) IU/L Alkaline Phosphatase 169 H (38-126) U/L Total Protein 8.4 H (6.3-8.2) g/dL Albumin 4.6 (3.5-5.0) g/dL Globulin 3.8 (1.7-4.1) g/dL Albumin/Globulin Ratio 1.2 (1.0-2.8) Urine RBC 0-1/hpf (0-5/HPF) Urine WBC 5-10/hpf H (0-5/HPF) Ur Squamous Epith Cells None seen Urine Bacteria None seen (None) Ur Culture Indicated? Specimen cultured 10/28/18 Range/Units 22:24 WBC (4.5-11.0) X10^3/uL RBC (4.0-5.2) X10^6/uL Hgb (12.0-16.0) g/dL Hct (36-46) % MCV (80-100) fL MCH (26-34) PG MCHC (30-36) % RDW (11.6-14.8) % Plt Count (150-400) X10^3/uL Neut % (Auto) (50-75) % Lymph % (Auto) (25-40) % [place] % (Auto) (3-14) % Eos % (Auto) (2-4) % Baso % (Auto) (0-2) % Neut # (Auto) (0207-9385) /uL Lymph # (Auto) (4206-7097) /uL [place] # (Auto) (0-900) /uL Eos # (Auto) (0-450) /uL Baso # (Auto) (0-100) /uL Sodium (137-145) mmol/L Potassium (3.4-5.1) mmol/L Chloride (98-107) mmol/L Carbon Dioxide (22-32) mmol/L BUN (7-17) mg/dL Creatinine 1.70 H (0.52-1.04) mg/dL Estimated GFR 30.0 L (>60) mL/min BUN/Creatinine Ratio (6-22) Glucose (80-110) mg/dL Calcium (8.4-10.2) mg/dL Total Bilirubin (0.2-1.3) mg/dL AST (14-36) IU/L ALT (9-52) IU/L Alkaline Phosphatase (38-126) U/L Total Protein (6.3-8.2) g/dL Albumin (3.5-5.0) g/dL Globulin (1.7-4.1) g/dL Albumin/Globulin Ratio (1.0-2.8) Urine RBC (0-5/HPF) Urine WBC (0-5/HPF) Ur Squamous Epith Cells Urine Bacteria (None) Ur Culture Indicated? Urine Dip Bedside Urine Glucose Negative Bedside Urine Bilirubin - Negative Bedside Urine Ketone - Negative Urine Specific [place] 1.010 Bedside Urine Occult Blood - Negative Bedside Urine pH 7.0 Bedside Urine Protein - Negative Bedside Urine Urobilinogen - Negative Bedside Urine Nitrite - Negative Bedside Urine Leukocytes +++ 500 Esterase MDM Narrative Medical decision making narrative: Multiple etiologies for patient's symptoms considered including: [Dehydration, renal failure, electrolyte abnormality versus other] Patient's symptoms improved or duration of stay with above-stated therapies. Findings and discharge diagnosis discussed with patient/family followed by verb alization of understanding Return precautions discussed with patient/family whom verbalize understanding. Discharge Plan Departure Patient Disposition: Home Clinical Impression: Dehydration Discharge Date/Time: 10/28/18 23:39 Interventions: ED Discharge Assessment Last Done: 10/28/18 23:39 Instructions: DI for Dehydration -- Adult Activity Restrictions/Additional Instructions: *You have been diagnosed with [ acute dehydration ] *What to do: *Take medications as directed *Follow up with your primary care provider in 2-3 days, call for an appointment. Let them know you were seen in the Emergency Department and that we ask that you be seen in follow up *Return to ER if you should have any new, worsening or concerning symptoms Prescriptions: No Action metoprolol tartrate 25 MG tablet 25 mg PO BID Qty: 0 RF: 0 alendronate 70 mg tablet 1 tab PO QWEEK RF: 0 gabapentin 300 mg capsule 600 mg PO TID RF: 0 ipratropium-albuterol 0.5 mg-3 mg(2.5 mg base)/3 mL solution for nebulization 3 ml INHALATION Q6-8H PRN (Reason: shortness of breath or wheezing) Qty: 90 RF: 0 ondansetron 4 mg tablet,disintegrating 4 mg PO TID PRN (Reason: nausea and vomiting) Qty: 10 RF: 0 albuterol sulfate 90 mcg/actuation HFA aerosol inhaler 2 puff Inhalation Q4-6H PRN (Reason: Shortness Of Breath) RF: 0 naloxone 4 mg/actuation spray,non-aerosol 1 spray Intranasal PRN PRN (Reason: Opiate Reversal) RF: 0 oxycodone 5 mg capsule 5 mg PO Q4-6H PRN (Reason: pain) Qty: 28 RF: 0 sucralfate 1 gram tablet 1 gram PO QACHS Qty: 28 RF: 0 ranitidine HCl 150 mg tablet 150 mg PO BID Qty: 28 RF: 0 sucralfate 1 gram Tablet 1 gm PO ACHS Qty: 28 RF: 0 sulfamethoxazole-trimethoprim [Bactrim DS] 800-160 mg tablet 1 tab PO BID Qty: 10 RF: 0
[2018-10-28 17:51] LABS: Add Manual Diff / Slide Review NO; Basophils Absolute Auto 100 /uL (0-100); Basophils Percent Auto 0.8 % (0-2); Eosinophils Absolute Auto 200 /uL (0-450); Eosinophils Percent Auto 1.5 % (2-4); Hematocrit 29.9 % (36-46); Hemoglobin 9.9 g/dL (12.0-16.0); Lymphocytes Absolute Auto 2600 /uL (1100-4500); Lymphocytes Percent Auto 25.4 % (25-40); Mean Corpuscular Hemoglobin 31.4 PG (26-34); Mean Corpuscular Volume 95.1 fL (80-100); Monocytes Absolute Auto 800 /uL (0-900); Monocytes Percent Auto 8.3 % (3-14); Neutrophils Absolute Auto 6400 /uL (1500-7000); Platelet Count 595 X10^3/uL (150-400); Red Blood Cell Count 3.14 X10^6/uL (4.0-5.2); Red Cell Distribution Width 15.5 % (11.6-14.8)
[2018-10-28] MEDS: SODIUM CHLORIDE 0.9% 1,000 ML 1000 ML IV ×2 (17:55→20:22)
[2018-10-28 18:05] LABS: Alanine Aminotransferase 14 IU/L (9-52); Albumin 4.6 g/dL (3.5-5.0); Albumin Globulin Ratio 1.2 (1.0-2.8); Alkaline Phosphatase 169 U/L (38-126); Aspartate Aminotransferase 21 IU/L (14-36); Bilirubin Total 0.3 mg/dL (0.2-1.3); Blood Urea Nitrogen 19 mg/dL (7-17); Calcium 9.6 mg/dL (8.4-10.2); Carbon Dioxide 22 mmol/L (22-32); Chloride 98 mmol/L (98-107); Estimated Glomerular Filt Rate 26.4 mL/min (>60); Globulin 3.8 g/dL (1.7-4.1); Glucose 92 mg/dL (80-110); HEMOLYSIS 15 (0-50); Potassium 4.7 mmol/L (3.4-5.1); Sodium 132 mmol/L (137-145); Total Protein 8.4 g/dL (6.3-8.2)
--- NOTE | 2018-10-28 18:23 | PC.NURSE ---
pt allertgic to tramadol, aware, pt states has taken dilaudid before. with no problems
[2018-10-28 19:27] LABS: Bacteria Urine None Seen
[2018-10-28 19:38] LABS: Culture Indicated Urine Specimen Cultured; RBC Urine 0-1/HPF (0-5/HPF); Squamous Epithelial Cell Urine None Seen; WBC Urine 5-10/HPF (0-5/HPF)
--- NOTE | 2018-10-28 20:04 | PC.NURSE ---
Patient was able to ambulate a short distance with stand by assistance holding onto my arm. Patient started walking and was doing well, shortly after getting out of the room she became unsteady and was tripping on her own feet. Patient stated the feeling was coming back. When I asked her to explain she said it felt like she was getting a washed out feeling. Checked patients vitals when I got her back into bed.
[2018-10-28] MEDS: OXYCODONE/ACETAMINOPHEN 5/325 TABLET 1 TAB PO (22:24)
== END 2018-10-28 23:39 | disposition home or self-care (01) ==
PROVIDERS: Emergency Medicine; Emergency Provider Emergency Medicine; Family Provider Family Medicine
DX: E86.0 Dehydration (principal)
CPT/HCPCS: 36415; 36591; 80053; 81003; 81015; 82565; 85025; 87077; 87086; 87147; 87186; 93005; 93041; 96360; 96361; 99284; 99285

== ENCOUNTER 2018-11-07 14:06 | Emergency (ER) | payer MEDICARE, MEDICAID, SELFPAY ==
[2018-09-19 00:19] VITALS: BMI 22.2
[2018-11-07 14:10] VITALS: BP 174/94; PULSE 86; RESP 17; TEMP 36.4; O2SAT 100
--- NOTE | 2018-11-07 14:30 | DI.RAD.S_ITS ---
PROCEDURE: XR CHEST 1V INDICATIONS: Weakness TECHNIQUE: One view of the chest was acquired. COMPARISON: [facility], CR, XR CHEST FOR PICC 1V, 09/19/2018, 2:34. FINDINGS: Surgical changes and devices: None. Lungs and pleura: Lungs are clear. No pleural effusions or pneumothorax. Mediastinum: Mediastinal contours appear normal. Heart size is mildly prominent. Bones and chest wall: No suspicious bony lesions. Overlying soft tissues appear unremarkable. IMPRESSION: No acute pulmonary process. Dictated by: Nikia Nolasco M.D. on 11/07/2018 at 13:58 Approved by: Nikia Nolasco M.D. on 11/07/2018 at 13:58
--- NOTE | 2018-11-07 14:31 | DI.CT.S_ITS ---
PROCEDURE: CT HEAD/BRAIN WO CON INDICATIONS: PAIN TECHNIQUE: Noncontrast 4.5 mm thick angled axial sections acquired from the foramen magnum to the vertex, with coronal and sagittal reformats. For radiation dose reduction, the following was used: automated exposure control, adjustment of mA and/or kV according to patient size. COMPARISON: [facility], CT, CT HEAD/BRAIN WO CON, 09/18/2018, 21:33. FINDINGS: Image quality: Excellent. CSF spaces: Basal cisterns are patent. No extra-axial fluid collections. The ventricles are symmetric in size and shape. Brain: No intracranial bleeds or masses. There is cerebral volume loss for age, with resultant ventricular and sulcal prominence. There are periventricular and deep white matter chronic small vessel ischemic changes. There is intracranial internal carotid artery atherosclerosis. Skull and face: Calvarium and visualized facial bones appear intact, without suspicious lesions. Sinuses: Visualized sinuses and mastoids are clear. IMPRESSION: 1. No acute process. 2. Age-appropriate volume loss. Dictated by: Tawny Weaver M.D. on 11/07/2018 at 19:05 Approved by: Tawny Weaver M.D. on 11/07/2018 at 19:06
--- NOTE | 2018-11-07 14:32 | DI.CT.S_ITS ---
PROCEDURE: CT ABDOMEN PELVIS W CON INDICATIONS: Pain to epigastric and upper abdomen TECHNIQUE: After the administration of intravenous contrast, 5 mm thick sections acquired from the diaphragm to the symphysis. 5 mm coronal and sagittal reformats were acquired. For radiation dose reduction, the following was used: automated exposure control, adjustment of mA and/or kV according to patient size. COMPARISON: [facility], CT, CT ABDOMEN PELVIS W CON, 08/17/2018, 14:43. FINDINGS: Image quality: Excellent. ABDOMEN: Lung bases: Lung bases are clear. Heart size is normal. Anterior pericardial thickening. Distal esophagus demonstrates wall thickening and edema. No hiatal hernia. Solid organs: Liver is normal in size and enhancement. Gallbladder is surgically absent. Trace amounts of intrahepatic biliary air are present, mainly in the anterior left lobe. Intrahepatic biliary system is nondilated. The extrahepatic common duct is prominent. There has been interval decrease in common duct caliber compared to the prior study. No visible obstructing calcification distally. Pancreas enhances normally. Spleen is normal in size and enhancement. No adrenal nodules. The right kidney is normal. The left kidney is slightly diminutive with multiple coarse parenchymal and collecting system calcifications. No hydronephrosis. Peritoneum and bowel: Bowel loops demonstrate normal wall thickness and caliber. No free fluid or air. Nodes and vessels: No retroperitoneal or mesenteric adenopathy by size criteria. Aorta and inferior vena cava are normal in size. Heavy abdominal aortic atherosclerosis. Miscellaneous: No ventral hernias. PELVIS: Genitourinary: Bladder wall thickness is increased uniformly, similar compared to the prior study. Uterus is surgically absent. Miscellaneous: No inguinal hernias or adenopathy. Bones: Slight deformity and sclerosis at the S1-2 junction raising the possibility of compression fracture/insufficiency fracture of uncertain chronicity. Compression fractures of L2 and L4 with kyphoplasty cement present. Mild compression fracture of T12 and T10 without significant change since the prior study. IMPRESSION: 1. There has been decrease in dilatation of the common duct which remains abnormal despite cholecystectomy change. This is likely secondary to sphincterotomy as indicated by presence of trace biliary air. Nonetheless, a stone or stricture at the ampulla is not excluded. Correlate with LFTs and consider ERCP. 2. Distal esophageal wall thickening and edema. Consider esophagitis. 3. Chronic urinary bladder wall thickening, may be due to overdistention. 4. Bony changes at the S1 and S2 levels raising possibility of sacral insufficiency/compression fracture. Correlate clinically. Dictated by: Tawny Weaver M.D. on 11/07/2018 at 18:54 Approved by: Tawny Weaver M.D. on 11/07/2018 at 19:05
[2018-11-07 14:38] VITALS: BP 150/83; PULSE 63; RESP 14; O2SAT 100
--- NOTE | 2018-11-07 14:49 | ED_ITS ---
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 BID-TID PRN (Reason: anxiety) Qty: 5 RF: 0 No Action metoprolol tartrate 25 MG tablet 25 mg PO BID Qty: 0 RF: 0 pantoprazole 40 mg tablet,delayed release (DR/EC) 40 mg PO BID RF: 0 gabapentin 100 mg capsule 100 mg PO TID RF: 0 oxycodone 5 mg capsule 5 mg PO Q3H PRN (Reason: pain) RF: 0 Referrals: Luis Hernandez MD [Family Provider] - <Collin Guzman DO - Last Filed: 11/08/18 01:42> Cosign ED Attending [place] [facility] Attestation: I was available for consultation during this patient's emergency department encounter
[2018-11-07] MEDS: SODIUM CHLORIDE 0.9% 1,000 ML 1000 ML IV (15:50)
[2018-11-07 16:30] LABS: Add Manual Diff / Slide Review NO; Basophils Absolute Auto 100 /uL (0-100); Basophils Percent Auto 1.7 % (0-2); Eosinophils Absolute Auto 100 /uL (0-450); Eosinophils Percent Auto 0.7 % (2-4); Hematocrit 31.9 % (36-46); Hemoglobin 10.6 g/dL (12.0-16.0); Lymphocytes Absolute Auto 2000 /uL (1100-4500); Lymphocytes Percent Auto 25.7 % (25-40); Mean Corpuscular HGB Conc 33.2 % (30-36); Mean Corpuscular Hemoglobin 31.4 PG (26-34); Mean Corpuscular Volume 94.5 fL (80-100); Monocytes Absolute Auto 500 /uL (0-900); Monocytes Percent Auto 6.3 % (3-14); Neutrophils Absolute Auto 5200 /uL (1500-7000); Neutrophils Percent Auto 65.6 % (50-75); Platelet Count 458 X10^3/uL (150-400); Red Blood Cell Count 3.38 X10^6/uL (4.0-5.2); Red Cell Distribution Width 15.5 % (11.6-14.8)
[2018-11-07 16:47] VITALS: BP 144/75; BP 145/74; BP 164/76; PULSE 63; PULSE 69; PULSE 76
[2018-11-07 16:59] LABS: BUN Creatinine Ratio 8.7 (6-22); Blood Urea Nitrogen 13 mg/dL (7-17); Calcium 8.8 mg/dL (8.4-10.2); Carbon Dioxide 18 mmol/L (22-32); Chloride 96 mmol/L (98-107); Estimated Glomerular Filt Rate 34.6 mL/min (>60); Glucose 104 mg/dL (80-110); HEMOLYSIS < 15 (0-50); Lactate (Lactic Acid) 0.6 mmol/L (0.7-2.1); Potassium 4.4 mmol/L (3.4-5.1); Sodium 125 mmol/L (137-145)
[2018-11-07 17:10] LABS: Troponin I < 0.012 ng/mL (0.01-0.034)
[2018-11-07 17:19] LABS: Procalcitonin < 0.05 ng/mL (<0.5)
[2018-11-07 17:52] LABS: Bacteria Urine None Seen
[2018-11-07 18:06] LABS: Culture Indicated Urine Specimen Cultured; RBC Urine 1-5/HPF (0-5/HPF); WBC Urine 10-30/HPF (0-5/HPF)
[2018-11-07 19:18] VITALS: BP 153/78; PULSE 71; RESP 19; O2SAT 100
[2018-11-07 19:45] LABS: Alanine Aminotransferase 20 IU/L (9-52); Albumin 4.3 g/dL (3.5-5.0); Albumin Globulin Ratio 1.4 (1.0-2.8); Alkaline Phosphatase 138 U/L (38-126); Aspartate Aminotransferase 48 IU/L (14-36); Bilirubin Total 0.3 mg/dL (0.2-1.3); Bilirubin Unconjugated 0.2 mg/dL (0.0-1.1); Globulin 3.1 g/dL (1.7-4.1); HEMOLYSIS < 15 (0-50); Total Protein 7.4 g/dL (6.3-8.2)
[2018-11-07] MEDS: ONDANSETRON 4 MG/2 ML INJ IV (20:31)
[2018-11-07] MEDS: HYDROMORPHONE 1 MG INJ IV (20:31)
[2018-11-07] MEDS: CEFTRIAXONE 1 GM/50 ML FROZ.PIGGY IV (21:31)
[2018-11-07 22:35] VITALS: BP 140/72; PULSE 75; RESP 12; TEMP 37.1; O2SAT 98
== END 2018-11-07 22:35 | disposition home or self-care (01) ==
PROVIDERS: Emergency Provider Nurse Practitioner Family; Family Provider Family Medicine
DX: E87.1 Hypo-osmolality and hyponatremia (principal); R10.13 Epigastric pain; R53.1 Weakness; N30.00 Acute cystitis without hematuria
CPT/HCPCS: 36415; 70450; 71045; 74177; 80048; 80076; 81003; 81015; 82962; 83605; 84145; 84484; 85025; 87077; 87086; 87147; 87186; 93005; 93041; 96361; 96365; 96375; 99284; 99285; J1170; J2405

== ENCOUNTER 2019-01-14 10:14 | Emergency (ER) | payer MEDICARE, MEDICAID, SELFPAY ==
[2018-09-19 00:19] VITALS: BMI 22.2
[2019-01-14 10:18] VITALS: PULSE 70; RESP 18; TEMP 36.4; O2SAT 98; BMI 20.7
[2019-01-14 11:12] LABS: Alanine Aminotransferase 37 IU/L (9-52); Albumin 4.3 g/dL (3.5-5.0); Albumin Globulin Ratio 1.4 (1.0-2.8); Alkaline Phosphatase 189 U/L (38-126); Aspartate Aminotransferase 33 IU/L (14-36); BUN Creatinine Ratio 19.2 (6-22); Bilirubin Total 0.3 mg/dL (0.2-1.3); Blood Urea Nitrogen 23 mg/dL (7-17); Calcium 9.7 mg/dL (8.4-10.2); Carbon Dioxide 24 mmol/L (22-32); Chloride 99 mmol/L (98-107); Estimated Glomerular Filt Rate 44.8 mL/min (>60); Globulin 3.1 g/dL (1.7-4.1); Glucose 120 mg/dL (80-110); HEMOLYSIS < 15 (0-50); Potassium 4.3 mmol/L (3.4-5.1); Sodium 133 mmol/L (137-145); Total Protein 7.4 g/dL (6.3-8.2)
[2019-01-14 11:13] LABS: Add Manual Diff / Slide Review NO; Basophils Absolute Auto 0 /uL (0-100); Basophils Percent Auto 0.4 % (0-2); Eosinophils Absolute Auto 200 /uL (0-450); Eosinophils Percent Auto 2.4 % (2-4); Hematocrit 30.2 % (36-46); Lymphocytes Absolute Auto 2000 /uL (1100-4500); Lymphocytes Percent Auto 24.5 % (25-40); Mean Corpuscular HGB Conc 33.2 % (30-36); Mean Corpuscular Hemoglobin 32.5 PG (26-34); Mean Corpuscular Volume 97.7 fL (80-100); Monocytes Absolute Auto 600 /uL (0-900); Monocytes Percent Auto 7.9 % (3-14); Neutrophils Absolute Auto 5300 /uL (1500-7000); Neutrophils Percent Auto 64.8 % (50-75); Platelet Count 459 X10^3/uL (150-400); Red Blood Cell Count 3.09 X10^6/uL (4.0-5.2); Red Cell Distribution Width 19.9 % (11.6-14.8); White Blood Cell Count 8.2 X10^3/uL (4.5-11.0)
--- NOTE | 2019-01-14 12:35 | PC.NURSE ---
OIL DISTRIBUTOR Danielle went in to see patient. Pt refused OIL DISTRIBUTOR visit, wants to see a doctor. Told it would be significant delay to see doctor as acuity / volume of ED at this time. Pt verbalized understanding.
[2019-01-14 12:45] LABS: RBC Urine None Seen (0-5/HPF)
--- NOTE | 2019-01-14 12:59 | ED.WEAKNESS ---
HPI - Weakness General Chief complaint: Weakness Stated complaint: dark vaginal discharge Time Seen by Provider: 01/14/19 12:59 Source: patient and old records reviewed Mode of arrival: ambulatory Limitations: no limitations History of Present Illness HPI Narrative: This 68-year-old female comes to the emergency department with complaint of vaginal discharge. Patient states it has been going on for couple weeks. She saw Dr. Hernandez earlier in the week. He started her on what sounds like Monistat. She has only had 4 of the 7 days. Patient has had discharge that was whitish then became more yellow it is not green. She has not noticed any odor. She has a history of hysterectomy 17 years ago. Patient has not had fevers. She has felt a little under the weather. She has had a little upper respiratory congestion. No chest pain, no shortness of breath, no nausea or vomiting. No abdominal or flank pain currently. A little discomfort in her flanks yesterday. She has had occasional little burning dysuria but not on regularly or frequently. She states that she has low sodium typically, she is typically anemic and she has some kidney disease. She states she has had many bladder infections and there is usually resistance. She does not know what antibiotic she is supposed to take. Related Data Home Medications Medication Instructions Recorded Confirmed metoprolol tartrate 25 mg PO BID #0 04/24/17 01/14/19 gabapentin 100 mg PO BID 11/07/18 01/14/19 pantoprazole 40 mg PO BID 11/07/18 01/14/19 oxycodone 5 mg PO TID 01/14/19 01/14/19 sucralfate 1 g PO QID 01/14/19 01/14/19 Previous Rx's Medication Instructions Recorded lorazepam [Ativan] 1 mg PO BID-TID PRN #5 tab 11/07/18 metronidazole [Flagyl] 500 mg PO BID #14 tab 01/14/19 Allergies Allergy/AdvReac Type Severity Reaction Status Date / Time tramadol [TRAMADOL] Allergy Unknown Verified 01/14/19 10:25 amitriptyline [AMITRIPTYLINE] AdvReac Intermediate Confusion Verified 01/14/19 10:25 Review of Systems Review of Systems ROS Unobtainable: All systems reviewed & are unremarkable except as noted in HPI and below Constitutional Denies chills and Denies fever(s) Gastrointestinal Gastrointestinal: Denies abdominal pain, Denies change in bowel habits, Denies diarrhea, Denies nausea and Denies vomiting Genitourinary Denies abnormal vaginal bleeding, Denies hematuria, Reports urinary frequency (Occasionally), Denies genital lesions, Reports dysuria (Occasionally), Denies pelvic pain, Reports flank pain (Sometimes), Denies urinary incontinence, Denies urinary hesitancy, Denies urinary urgency, Reports vaginal discharge and Denies vaginal odor Musculoskeletal Denies back pain [facility] Medical History COPD (chronic obstructive pulmonary disease) (Acute) Chronic pain (Acute) GI bleeding (Acute) History of recurrent UTIs (Acute) Hypertension (Acute) Neuropathy (Acute) Renal disease (Acute) Family History Mother No known health problems Father No known health problems Social History household members: significant other Smoking Status: Former smoker alcohol intake: current Family History Mother No known health problems Father No known health problems Social History household members: significant other Smoking Status: Former smoker alcohol intake: current Exam Narrative Exam Narrative: GENERAL: Alert and oriented x three, well-nourished, well-appearing female in mild distress. HEENT: Head normocephalic, atraumatic, EOMI, pupils reactive, face symmetric, moist mucous membranes NECK: Supple, full range of motion CARDIOVASCULAR: Regular rate and rhythm without murmurs, rubs or gallops. RESPIRATORY: Breath sounds equal bilaterally, no wheezes rales or rhonchi. ABDOMEN: Soft, nontender. Normoactive bowel sounds all 4 quadrants. No guarding or rebound, rigidity, no mass : No CVA tenderness. Female: external vaginal exam normal except for some dryness of the skin patient has what appears to be atrophic vaginitis, no vaginal bleeding, 6 slightly greenish discharge from what appears to be the vaginal cuff, no cervical motion tenderness, otherwise speculum exam, no adnexal tenderness/mass. Bimanual exam is normal, no uterus palpated. No mass. Patient mildly tender. EXTREMITIES: Normal range of motion, no clubbing or edema. Neurovascularly intact NEUROLOGICAL: Cranial nerves II through XII grossly intact. Moving all extremities SKIN: Warm, dry, no petechiae, no rashes or lesions. Initial Vital Signs Initial Vital Signs: Vital Signs Temperature 97.6 F 01/14/19 10:18 Pulse Rate 70 01/14/19 10:18 Respiratory Rate 18 01/14/19 10:18 Pulse Oximetry 98 01/14/19 10:18 Course Orders Ordered: ED Orders 01/14/19 10:50 Complete Blood Count AUTO DIFF Stat Comprehensive Metabolic Panel Stat 01/14/19 12:40 Urine Chlamydia Gonorrhea PCR Stat Urine Culture Stat Urine Microscopic Stat 01/14/19 16:02 Genital Culture Stat Wet Prep Tric BV Aura Stat Discontinued Medications Oxycodone HCl ([place]) 5 mg PO NOW ONE Stop: 01/14/19 16:04 Last Admin: 01/14/19 16:14 Dose: Not Given Oxycodone/Acetaminophen (Percocet 5/325) 1 tab PO NOW ONE Stop: 01/14/19 16:06 Last Admin: 01/14/19 16:17 Dose: 1 tab Vital Signs - 8 hr 01/14/19 15:04 01/14/19 16:18 Pulse Rate 60 64 Respiratory Rate 16 14 Blood Pressure [Left Arm] 115/72 110/72 Pulse Oximetry 100 98 MDM - Weakness Lab Data Attestation: I reviewed the patient's lab results. Result diagrams: 01/14/19 10:50 01/14/19 10:50 Lab Results 01/14/19 01/14/19 01/14/19 Range/Units 10:50 10:50 12:40 WBC 8.2 (4.5-11.0) X10^3/uL RBC 3.09 L (4.0-5.2) X10^6/uL Hgb 10.0 L (12.0-16.0) g/dL Hct 30.2 L (36-46) % MCV 97.7 (80-100) fL MCH 32.5 (26-34) PG MCHC 33.2 (30-36) % RDW 19.9 H (11.6-14.8) % Plt Count 459 H (150-400) X10^3/uL Neut % (Auto) 64.8 (50-75) % Lymph % (Auto) 24.5 L (25-40) % [place] % (Auto) 7.9 (3-14) % Eos % (Auto) 2.4 (2-4) % Baso % (Auto) 0.4 (0-2) % Neut # (Auto) 5300 (4041-2681) /uL Lymph # (Auto) 2000 (8377-3371) /uL [place] # (Auto) 600 (0-900) /uL Eos # (Auto) 200 (0-450) /uL Baso # (Auto) 0 (0-100) /uL Sodium 133 L (137-145) mmol/L Potassium 4.3 (3.4-5.1) mmol/L Chloride 99 (98-107) mmol/L Carbon Dioxide 24 (22-32) mmol/L BUN 23 H (7-17) mg/dL Creatinine 1.20 H (0.52-1.04) mg/dL Estimated GFR 44.8 L (>60) mL/min BUN/Creatinine Ratio 19.2 (6-22) Glucose 120 H (80-110) mg/dL Calcium 9.7 (8.4-10.2) mg/dL Total Bilirubin 0.3 (0.2-1.3) mg/dL AST 33 (14-36) IU/L ALT 37 (9-52) IU/L Alkaline Phosphatase 189 H (38-126) U/L Total Protein 7.4 (6.3-8.2) g/dL Albumin 4.3 (3.5-5.0) g/dL Globulin 3.1 (1.7-4.1) g/dL Albumin/Globulin Ratio 1.4 (1.0-2.8) Urine RBC None seen (0-5/HPF) Urine WBC 30-100/hpf H (0-5/HPF) Ur Squamous Epith Cells 1-5 /hpf (0-5/HPF) Urine Bacteria Few (2-10) H (None) Ur Culture Indicated? Specimen cultured Ur Chlamydia DNA (PCR) N gonorrhoeae DNA (PCR) 01/14/19 Range/Units 12:40 WBC (4.5-11.0) X10^3/uL RBC (4.0-5.2) X10^6/uL Hgb (12.0-16.0) g/dL Hct (36-46) % MCV (80-100) fL MCH (26-34) PG MCHC (30-36) % RDW (11.6-14.8) % Plt Count (150-400) X10^3/uL Neut % (Auto) (50-75) % Lymph % (Auto) (25-40) % [place] % (Auto) (3-14) % Eos % (Auto) (2-4) % Baso % (Auto) (0-2) % Neut # (Auto) (1727-2828) /uL Lymph # (Auto) (5471-7592) /uL [place] # (Auto) (0-900) /uL Eos # (Auto) (0-450) /uL Baso # (Auto) (0-100) /uL Sodium (137-145) mmol/L Potassium (3.4-5.1) mmol/L Chloride (98-107) mmol/L Carbon Dioxide (22-32) mmol/L BUN (7-17) mg/dL Creatinine (0.52-1.04) mg/dL Estimated GFR (>60) mL/min BUN/Creatinine Ratio (6-22) Glucose (80-110) mg/dL Calcium (8.4-10.2) mg/dL Total Bilirubin (0.2-1.3) mg/dL AST (14-36) IU/L ALT (9-52) IU/L Alkaline Phosphatase (38-126) U/L Total Protein (6.3-8.2) g/dL Albumin (3.5-5.0) g/dL Globulin (1.7-4.1) g/dL Albumin/Globulin Ratio (1.0-2.8) Urine RBC (0-5/HPF) Urine WBC (0-5/HPF) Ur Squamous Epith Cells (0-5/HPF) Urine Bacteria (None) Ur Culture Indicated? Ur Chlamydia DNA (PCR) Not detected N gonorrhoeae DNA (PCR) Not detected Urine Dip Bedside Urine Glucose Negative Bedside Urine Bilirubin - Negative Bedside Urine Ketone - Negative Urine Specific [place] 1.015 Bedside Urine Occult Blood +/- Bedside Urine pH 6.0 Bedside Urine Protein - Negative Bedside Urine Urobilinogen - Negative Bedside Urine Nitrite - Negative Bedside Urine Leukocytes +++ 500 Esterase MDM Narrative Medical decision making narrative: Patient has not completed her treatment, but she is complaining of green discharge. She has not had a pelvic. Plan for pelvic. I discussed a probably recommend waiting for cultures at this time but we did offer treatment for infection. Patient's lab work appears stable with a hemoglobin of 10, sodium is actually little bit improved in his more prior. patient's creatinine is improved. Urine shows leuks but this could be from discharge. She has had some dysuria urgency but with her history resistance I would wait for urine culture. Patient does have a little bit of green discharge. She is slightly tender on palpation. She states she is not sexually active. States that her is not able to perform patient does appear to have some atrophic vaginitis which she states does not bother her so we discussed she probably does not need treatment for that. Will initially treat for BV but did send for culture for gonorrhea, chlamydia as well as wet mount and genital culture. Patient is comfortable with the plan. She has for 1 dose oxycodone she left her is at home she has not had any since 8:00 a.m. this morning. Patient diagnosis cervicitis although it appears that her cervix is actually gone and she does vaginal cuff. Discharge Plan Departure Patient Disposition: Home Clinical Impression: Cervicitis Discharge Date/Time: 01/14/19 16:25 Interventions: ED Discharge Assessment Last Done: 01/14/19 16:24 Instructions: DI for Acute Cervicitis Activity Restrictions/Additional Instructions: Follow-up with your physician in the next 3-5 days for recheck. Call for an appointment. Cultures for urine, as well as genital cultures are pending. They take 24-48 hours to result. If you needs additional antibiotics 2 should expect a phone call from us. Take antibiotics until completely gone. Do not drink alcohol with these antibiotics. Continue home medications as prescribed. Return to the emergency department for fevers greater 100.4 F, rapidly worsening abdominal pain, persistent vomiting, passing out, black or bloody stools, vaginal bleeding or other new or concerning symptoms. Prescriptions: New metronidazole [Flagyl] 500 mg tablet 500 mg PO BID Qty: 14 RF: 0 No Action metoprolol tartrate 25 MG tablet 25 mg PO BID Qty: 0 RF: 0 sucralfate 1 gram tablet 1 g PO QID RF: 0 oxycodone 5 mg tablet 5 mg PO TID RF: 0 pantoprazole 40 mg tablet,delayed release (DR/EC) 40 mg PO BID RF: 0 gabapentin 100 mg capsule 100 mg PO BID RF: 0 lorazepam [Ativan] 1 mg tablet 1 mg PO BID-TID PRN (Reason: anxiety) Qty: 5 RF: 0 Referrals: Luis Hernandez MD [Family Provider] -
[2019-01-14 13:12] LABS: Bacteria Urine Few (2-10); Culture Indicated Urine Specimen Cultured; Squamous Epithelial Cell Urine 1-5 /HPF (0-5/HPF); WBC Urine 30-100/HPF (0-5/HPF)
[2019-01-14 15:04] VITALS: BP 115/72; PULSE 60; RESP 16; O2SAT 100
--- NOTE | 2019-01-14 15:32 | PC.NURSE ---
Pt requesting her regular oxycodone. Takes q 3 hours. Pt appears somulant, sleeping when not stimulated. c/o chronic pain while awake. Discussed that provider will have to see her and order pain medications. Pt also expressed frustration that she has not been seen by MD. I discussed with her that it was her option to see a MD rather than and TECHNICAL STENOGRAPHER but the wait would be longer.
[2019-01-14] MEDS: OXYCODONE/ACETAMINOPHEN 5/325 TABLET 1 TAB PO (16:17)
[2019-01-14 16:18] VITALS: BP 110/72; PULSE 64; RESP 14; O2SAT 98
[2019-01-14 18:06] LABS: Urine N gonorrhoeae NOT DETECTED
[2019-01-14 18:14] LABS: Urine Chlamydia NOT DETECTED
== END 2019-01-14 16:25 | disposition home or self-care (01) ==
PROVIDERS: Emergency Provider Emergency Medicine; Family Provider Family Medicine
DX: N72 Inflammatory disease of cervix uteri (principal)
CPT/HCPCS: 36415; 80053; 81003; 81015; 85025; 87070; 87077; 87086; 87147; 87186; 87205; 87210; 87491; 87591; 99283

== ENCOUNTER 2019-02-27 18:08 | Emergency (ER) | payer MEDICARE, MEDICAID, SELFPAY ==
[2018-09-19 00:19] VITALS: BMI 22.2
[2019-02-27 18:15] VITALS: BP 183/74; PULSE 85; RESP 18; TEMP 36.7; O2SAT 100; BMI 21.0
--- NOTE | 2019-02-27 18:16 | ED.BACK ---
HPI - Back Pain/Injury General Chief Complaint: Back Pain/Injury Stated Complaint: Back pain fall 1 week ago Time Seen by Provider: 02/27/19 18:08 Source: patient and EMS Mode of arrival: EMS Limitations: no limitations History of Present Illness HPI Narrative: 68-year-old female former smoker with a history of hypertension and multiple back problems presents by EMS for evaluation of ongoing lumbar pain. She has a history of multiple lumbar compression fracture and multiple kyphoplasties in the past, presents with a reported new mid lumbar compression fracture as diagnosed at an outside facility. Patient had seen and evaluated at outside facility with diagnosis of new compression fracture and has had prescriptions for significant numbers of oxycodone and even hydromorphone. She presents because her back pain is worsening in the absence of any new injury. She denies fever or chills. She denies any trouble controlling bowel or bladder. She has worsening pain with motion and improvement with rest. She states that she has radiation of pain down her left leg and some numbness down her left leg but no weakness. She has not had an MRI. She did not take her medications today because she states she did not want those medications to cloud our ability to properly examine her. MD Complaint: back pain and back injury Onset (ago): hour(s) Duration: progressively worsening Similar Symptoms Previously: Yes Location: lumbar spine Severity: severe Quality: burning and sharp Radiation: left leg Severity scale (1-10): 10 Relieving factors: immobilization and medication Exacerbating factors: walking Associated symptoms: loss of sensation in lower extremities and parasthesias Related Data Home Medications Medication Instructions Recorded Confirmed metoprolol tartrate 25 mg PO BID #0 04/24/17 01/14/19 gabapentin 100 mg PO BID 11/07/18 01/14/19 pantoprazole 40 mg PO BID 11/07/18 01/14/19 oxycodone 5 mg PO TID 01/14/19 01/14/19 sucralfate 1 g PO QID 01/14/19 01/14/19 Previous Rx's Medication Instructions Recorded lorazepam [Ativan] 1 mg PO BID-TID PRN #5 tab 11/07/18 metronidazole [Flagyl] 500 mg PO BID #14 tab 01/14/19 prednisone 20 mg PO DAILY #5 tab 02/27/19 Allergies Allergy/AdvReac Type Severity Reaction Status Date / Time tramadol [TRAMADOL] Allergy Unknown Verified 02/27/19 18:17 amitriptyline [AMITRIPTYLINE] AdvReac Intermediate Confusion Verified 02/27/19 18:17 Review of Systems Constitutional Denies chills, Denies fever(s), Denies lethargy and Denies weakness Eyes Denies change in vision, Denies eye discharge, Denies irritation and Denies loss of vision ENT Ears, Nose, Mouth, and Throat: Denies change in voice, Denies neck pain and Denies sore throat Cardiovascular Denies chest pain, Denies irregular heart rhythm, Denies lightheadedness, Denies palpitations, Denies dyspnea, Denies dyspnea on exertion and Denies orthopnea Respiratory Denies cough, Denies dyspnea, Denies dyspnea on exertion and Denies wheezing Gastrointestinal Gastrointestinal: Denies abdominal pain, Denies change in bowel habits, Denies diarrhea, Denies nausea and Denies vomiting Genitourinary Denies hematuria, Denies flank pain, Denies urinary incontinence and Denies urinary urgency Musculoskeletal Reports back pain and Denies neck pain Integumentary/Breasts Denies pruritus, Denies erythema, Denies rash and Denies wounds Neurologic Denies confusion, Denies loss of vision, Reports paresthesias and Denies weakness Psychiatric Denies anxiety, Denies confusion, Denies depression, Denies homicidal ideation and Denies suicidal ideation Endocrine Denies palpitations Hematologic/Lymphatic Denies easy bruising Allergic/Immunologic Denies wheezing [facility] Medical History COPD (chronic obstructive pulmonary disease) (Acute) Chronic pain (Acute) GI bleeding (Acute) History of recurrent UTIs (Acute) Hypertension (Acute) Neuropathy (Acute) Renal disease (Acute) Family History Mother No known health problems Father No known health problems Social History household members: significant other Smoking Status: Former smoker alcohol intake: current Family History Mother No known health problems Father No known health problems Social History household members: significant other Smoking Status: Former smoker alcohol intake: current Exam Narrative Exam Narrative: GENERAL: This is a well-nourished, well-developed patient, in mild distress. HEAD: Atraumatic. Normocephalic. No temporal or scalp tenderness. EYES: Pupils equal round and reactive. Extraocular motions intact. No scleral icterus. No injection or drainage. ENT: Nose without bleeding, purulent drainage or septal hematoma. Throat without erythema, tonsillar hypertrophy or exudate. Uvula midline. Airway patent. NECK: Trachea midline. No JVD or lymphadenopathy. Supple, nontender, no meningeal signs. CARDIOVASCULAR: Regular rate and rhythm without murmurs, gallops, or rubs. RESPIRATORY: Clear to auscultation. Breath sounds equal bilaterally. No wheezes, rales, or rhonchi. GASTROINTESTINAL: Abdomen soft, non-tender, nondistended. No hepato-splenomegaly, or palpable masses. No guarding. EXTREMITIES: No clubbing, cyanosis, or edema. No joint tenderness, effusion, or edema noted. BACK: plow and boring machine tender but free of any obvious external abnormalities. Patient exam notes decreased range of motion and muscle spasm, but no CVA tenderness, or vertebral point tenderness. There are no symptoms of cauda equina such as saddle anesthesia, and decreased reflexes, or strength. She does have decreased sensation particularly in the left lateral lower extremity which she says has been present for quite some time and is a consequence of a known neuropathy NEURO: AOx3. SKIN: No rash or erythema. Initial Vital Signs Initial Vital Signs: Vital Signs Temperature 98.0 F 02/27/19 18:15 Pulse Rate 85 02/27/19 18:15 Respiratory Rate 18 02/27/19 18:15 Blood Pressure 183/74 H 02/27/19 18:15 Pulse Oximetry 100 02/27/19 18:15 Course Orders Ordered: Discontinued Medications Hydromorphone HCl (Dilaudid) 1 mg IM NOW ONE Stop: 02/27/19 19:48 Last Admin: 02/27/19 20:26 Dose: 1 mg Ondansetron HCl (Zofran Odt) 4 mg SL NOW ONE Stop: 02/27/19 18:22 Last Admin: 02/27/19 18:24 Dose: 4 mg Prednisone (Deltasone) 40 mg PO NOW ONE Stop: 02/27/19 21:19 Last Admin: 02/27/19 21:21 Dose: 40 mg Reevaluation(s) Reevaluation #1: patient feels much better after receiving Dilaudid. She states she feels well enough to go home to be more comfortable and will follow up as planned. Vital Signs - 8 hr 02/27/19 20:00 02/27/19 20:32 02/27/19 21:51 Pulse Rate 87 80 90 Respiratory Rate 16 18 Blood Pressure 163/86 H Blood Pressure [Left Arm] 181/80 H 158/94 H Pulse Oximetry 95 100 100 MDM - Back Pain/Injury MDM Narrative Medical decision making narrative: Multiple etiologies for patient's symptoms considered including: [lumbar fracture pain vs. lumbar radiculopathy vs. epidural abscess vs. hematoma vs. other] Patient's symptoms improved or duration of stay with above-stated therapies. Findings and discharge diagnosis discussed with patient/family followed by verbalization of understanding Return precautions discussed with patient/family whom verbalize understanding. Discharge Plan Departure Patient Disposition: Home Clinical Impression: Bilateral lumbar radiculopathy Fx lumbar vertebra-closed Qualifiers: Encounter type: initial encounter Lumbar vertebra fracture level: unspecified lumbar vertebra Fracture morphology: unspecified fracture morphology Qualified Code(s): S32.009A - Unspecified fracture of unspecified lumbar vertebra, initial encounter for closed fracture Discharge Date/Time: 02/27/19 21:52 Interventions: ED Discharge Assessment Last Done: 02/27/19 21:51 Instructions: DI for Back Pain With Sciatica Activity Restrictions/Additional Instructions: *You have been diagnosed with [acute on chronic back pain with radiculopathy] *What to do: *Take medications as directed: Your steroid has been electronically transmitted to [facility]'s pharmacy at your request *Follow up with your primary care provider in 2-3 days, call for an appointment. Let them know you were seen in the Emergency Department and that we ask that you be seen in follow up *Return to ER if you should have any new, worsening or concerning symptoms, such as [worsening pain, numbness, tingling, loss of control of bowel or bladder] Prescriptions: New prednisone 20 mg tablet 20 mg PO DAILY Qty: 5 RF: 0 No Action metoprolol tartrate 25 MG tablet 25 mg PO BID Qty: 0 RF: 0 sucralfate 1 gram tablet 1 g PO QID RF: 0 oxycodone 5 mg tablet 5 mg PO TID RF: 0 metronidazole [Flagyl] 500 mg tablet 500 mg PO BID Qty: 14 RF: 0 pantoprazole 40 mg tablet,delayed release (DR/EC) 40 mg PO BID RF: 0 gabapentin 100 mg capsule 100 mg PO BID RF: 0 lorazepam [Ativan] 1 mg tablet 1 mg PO BID-TID PRN (Reason: anxiety) Qty: 5 RF: 0
[2019-02-27] MEDS: ONDANSETRON 4 MG ODT SL (18:24)
[2019-02-27 18:58] VITALS: BP 161/86; PULSE 86; RESP 16; O2SAT 100
[2019-02-27 20:00] VITALS: BP 181/80; PULSE 87; RESP 16; O2SAT 95
[2019-02-27] MEDS: HYDROMORPHONE 1 MG INJ IM (20:26)
[2019-02-27 20:32] VITALS: BP 158/94; PULSE 80; RESP 18; O2SAT 100
[2019-02-27] MEDS: predniSONE 20 MG TABLET 40 MG PO (21:21)
[2019-02-27 21:51] VITALS: BP 163/86; PULSE 90; O2SAT 100
== END 2019-02-27 21:52 | disposition home or self-care (01) ==
PROVIDERS: Emergency Provider Emergency Medicine; Family Provider Family Medicine
DX: M54.16 Radiculopathy, lumbar region (principal); S32.009A Unspecified fracture of unspecified lumbar vertebra, initial encounter for closed fracture
CPT/HCPCS: 96372; 99283; J1170

== ENCOUNTER → 2019-03-06 17:21 | Outpatient (CLI) | payer MEDICARE, MEDICAID, SELFPAY ==
[2018-09-19 00:19] VITALS: BMI 22.2
--- NOTE | 2019-03-06 | DI.MRI.S_ITS ---
PROCEDURE: MR LUMBAR SPINE WO CON INDICATIONS: LUMBAR COMPRESSION FRACTURE TECHNIQUE: Noncontrast sagittal T1 spin echo and T2 fast echo, sagittal STIR, axial T1 and T2 fast spin echo through the lumbar spine. In cases with scoliosis, additional coronal T2 fast spin echo may be performed. COMPARISON: [facility] Outside Film, RG, SPINE LUMB 2 OR 3VW, 12/06/2018, 13:41. FINDINGS: Image quality: Excellent. Alignment and Curvature: There is normal bony alignment. Bone Marrow: Marrow is of normal overall signal. Bony cement injection at L2 and L4 has been performed. There is moderate wedging of L2. Mild wedging of L4. There is linear low T1/T2 signal intensity traversing the L3 vertebral body, which demonstrates moderate height loss, as well as moderate diffuse ill-defined STIR signal elevation within the marrow. There is a Schmorl's node in the in the inferior L4 endplate. Mild ill-defined STIR signal elevation within the posterior inferior L4 vertebral body. Spinal Cord: Conus medullaris terminates at the lower L1 level. Visualized cord demonstrates normal signal and size. Paraspinous Soft Tissues: No paravertebral masses. L1-L2: Moderate disc height loss and desiccation. Mild diffuse disc bulge/osteophyte. Mild canal stenosis. Mild bilateral foraminal stenosis. L2-L3: Mild disc height loss and desiccation. Mild diffuse disc bulge. Mild bilateral facet hypertrophy. Mild canal stenosis. Mild bilateral foraminal stenosis. L3-L4: Mild disc height loss and desiccation. Mild diffuse disc bulge. Mild bilateral facet hypertrophy. Mild canal stenosis. Mild right and mild to moderate left foraminal stenosis. L4-L5: Severe disc height loss and desiccation. Mild diffuse disc bulge. Mild bilateral facet hypertrophy. Mild canal stenosis. Mild left and moderate right subarticular foraminal stenosis. L5-S1: Mild bilateral facet hypertrophy. No significant canal, nor foraminal stenosis. IMPRESSION: 1. Moderate subacute L3 compression fracture. 2. Status post vertebral augmentation at L2 and L4. 3. Subacute inferior L4 Schmorl's node. Dictated by: Jl Downs M.D. on 03/09/2019 at 8:52 Approved by: Jl Downs M.D. on 03/09/2019 at 9:12
== END ==
PROVIDERS: Family Provider Family Medicine; Visit Provider Orthopaedic Surgery Orthopaedic Surgery of the Spine
DX: M48.56XA Collapsed vertebra, not elsewhere classified, lumbar region, initial encounter for fracture (principal); M54.5 Low back pain
CPT/HCPCS: 72148

== ENCOUNTER → 2019-04-27 14:41 | Outpatient (CLI) | payer MEDICARE, MEDICAID, SELFPAY ==
[2018-09-19 00:19] VITALS: BMI 22.2
[2019-04-27 15:43] LABS: Add Manual Diff / Slide Review NO; Basophils Absolute Auto 100 /uL (0-100); Basophils Percent Auto 0.8 % (0-2); Eosinophils Absolute Auto 100 /uL (0-450); Eosinophils Percent Auto 0.6 % (2-4); Hematocrit 35.5 % (36-46); Hemoglobin 11.8 g/dL (12.0-16.0); Lymphocytes Absolute Auto 1900 /uL (1100-4500); Mean Corpuscular HGB Conc 33.1 % (30-36); Mean Corpuscular Hemoglobin 32.3 PG (26-34); Mean Corpuscular Volume 97.7 fL (80-100); Monocytes Absolute Auto 400 /uL (0-900); Monocytes Percent Auto 4.7 % (3-14); Neutrophils Absolute Auto 7100 /uL (1500-7000); Neutrophils Percent Auto 73.9 % (50-75); Platelet Count 791 X10^3/uL (150-400); Red Blood Cell Count 3.64 X10^6/uL (4.0-5.2); Red Cell Distribution Width 14.9 % (11.6-14.8); White Blood Cell Count 9.6 X10^3/uL (4.5-11.0)
[2019-04-27 15:58] LABS: Platelet Estimate Increased on smear
== END ==
PROVIDERS: Family Provider Family Medicine; Visit Provider Orthopaedic Surgery
DX: Z01.818 Encounter for other preprocedural examination (principal)
CPT/HCPCS: 36415; 85025; 93005; 93010

== ENCOUNTER 2019-04-28 12:36 | Day surgery (SDC) | payer MEDICARE, MEDICAID, SELFPAY ==
[2018-09-19 00:19] VITALS: BMI 22.2
[2019-04-24 08:55] VITALS: BMI 21.4
[2019-04-28] VITALS (13 sets, daily range): BP systolic 119–153; BP diastolic 64–104; PULSE 65–87; RESP 10–19; TEMP 36.1–36.4; O2SAT 97–100; BMI 21.4
--- NOTE | 2019-04-28 | PATH_ITS ---
[facility] Accession Number: [id number] . 01 Material submitted: . bone - BONE L3 . 01 Diagnosis: Bone, L3, Biopsies: Fragments of bone and marrow with crushed hematopoietic elements, evidence of old hemorrhage (hemosiderin-laden macrophages) and repair/remodeling, consistent with fracture site changes. Negative for carcinoma and hematopoietic malignancy, see comment. MRV 05/01/2019 1715 Local . 01 Comment: As the hematopoietic marrow elements appear mostly crushed, the panepithelial marker (ANNABELLA) is performed (to rule out metastatic carcinoma) and is negative. This result along with the morphology supports the diagnosis. There is no evidence of malignancy in the submitted material. There are histologic features that support old fracture changes. . * This test was developed and its performance characteristics determined by [facility]. It has not been cleared or approved by the U.S. Food and Drug Administration. The FDA has determined that such clearance or approval is not necessary. This test is used for clinical purposes. It should not be regarded as investigational or for research. . 01 Electronically signed: . Faye Bobo MD, Pathologist NPI- [id number] . 01 Gross description: . Received in formalin, labeled bone L3, are multiple fragments of brown gritty bone (0.3 x 0.2 x 0.1 cm in aggregate). Decalcified and entirely submitted in cassette A1. ([id number]) /MRV 04/29/2019 1052 Local . 01 Pathologist provided ICD-10: M54.42, S32.030G, Z98.890 . 01 CPT . 358633, 851482, [id number] Performed at: 01 [facility] [address], [place], [place] [id number] MD Festus Garcia MD Phone: [phone]
--- NOTE | 2019-04-28 | DI.RAD.S_ITS ---
PROCEDURE: XR LUMBAR SPINE MIN 4V INDICATIONS: L3 KYPHOPLASTY TECHNIQUE: 3 views of the lumbar spine acquired. COMPARISON: [facility], MR, MR LUMBAR SPINE WO CON, 03/06/2019, 17:49. FINDINGS: Fluoroscopic images demonstrating kyphoplasty at L2 and L4. Intervertebral marker as well as subsequent cement is identified at L3. There is questionable small extravasation along the inferior endplate of L3. IMPRESSION: Kyphoplasty as above. Dictated by: Nikia Nolasco M.D. on 04/28/2019 at 19:22 Approved by: Nikia Nolasco M.D. on 04/28/2019 at 19:24
--- NOTE | 2019-04-28 14:51 | SUR.OPER ---
Prone on spine table, head in foam head support, padded chest and pelvic supports, gel pad at knees, lower legs supported by pillows; nipples, genitalia and toes free of pressure, arms secured on foam padded arm boards at <90 degrees abduction. Tape over blanket at thigh secured to table.
--- NOTE | 2019-04-28 15:10 | PM.PREOP ---
Pre-operative Note Interval Note History & Physical reviewed/Exam performed by Physician: Yes Changes to H&P: No
--- NOTE | 2019-04-28 15:11 | PM.OP.1 ---
Operative Date/Time/Diagnoses Date of procedure: 04/28/19 Time of procedure: 16:09 Pre-op diagnosis: L3 compression fracture Osteoporosis Back pain Post-op diagnosis: same Procedure & Clinicians Procedure: L3 kyphoplasty Same procedure as scheduled: Yes Indications: [age] year old female with intractable pain from an acute L3 compression fracture. They had failed conservative management and requested operative intervention. Risks and benefits of surgery were discussed and appropriate consents were obtained. Surgeon: Percy Medina Click Yes if Unassisted: Yes Anesthesia Type: General Operative Notes Findings: None Closure Type: primary Specimen(s): other (L3 vertebral biopsy) Estimated Blood Loss (mL): 3 Procedure in detail: The patient was brought to the operating room and intubated on the table. They were then rolled over to the well-padded prone position. Time-out was performed. We confirmed positioning with two fluoroscopy views. The back was prepped and draped in the standard sterile fashion. Preoperative antibiotics were given. Using fluoroscopic guidance, the planned incision site was infiltrated with Marcaine with epinephrine and injected down to the entry site of the left pedicle of L3. A small stab incision was made and we advanced a Jamshiedi needle down the left pedicle into the vertebral body. A bone biopsy was harvested from this and sent to pathology. We then passed the DFine osteotome and opened it up to create a void inside the vertebral body. We then began injecting the cement. This was done with frequent fluoroscopy imaging. There was no extravasation. Once we had good fill of the L3 vertebral body the injection was stopped and the trocars were removed. Final x-rays were taken. The wound was cleaned. Steri-Strips and sterile dressing were placed. Patient was rolled over, extubated, and brought to recovery without complications. Complications: none Post-operative Condition: stable Disposition: PACU Plan for aftercare: Outpatient. Activity as tolerated
[2019-04-28] MEDS: CEFAZOLIN 1 GM/50 ML FROZ.PIGGY IV (15:32)
[2019-04-28] MEDS: BUPIVACAINE 0.25% W/ EPI 30 ML VIAL 60 ML INJ (15:58)
[2019-04-28] MEDS: fentaNYL 100 MCG/2 ML INJ 50 MCG IV ×2 (16:24→16:37)
[2019-04-28] MEDS: HYDROMORPHONE 2 MG INJ 0.5 MG IV ×4 (16:29→16:59)
[2019-04-28] MEDS: LORazepam 2 MG/ML INJ 0.5 MG IV (16:33)
--- NOTE | 2019-04-28 17:03 | SUR.PHASEI ---
Bedside report given to JESUS Martin at this time. Pt in stable condition, VSS. Transferred care of pt to JESUS Martin.
--- NOTE | 2019-04-28 17:12 | SUR.PHASEI ---
Assumed care. Pt teary, reporting pain management concerns with discharge. Medicated with dilaudid. Pt requested rx be taken to the pharmacy. 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
[2019-04-28] MEDS: HYDROMORPHONE 2 MG TABLET PO (17:17)
--- NOTE | 2019-04-28 19:07 | SUR.PHASEII ---
1730 BLE weak, pale, cool. +pp to rle, posterior tibial pulse to lle. Pt reported hx of neuropathy and tingling to lle. Pt dressed with assistance. Taken by wheelchair to pharmacy by this RN to filler picker rx.
[2023-03-12 15:57] VITALS: BMI 21.4
== END 2019-04-28 17:47 | disposition home or self-care (01) ==
PROVIDERS: PCP Family Medicine; Visit Provider Orthopaedic Surgery
PROC: (CPT 22514; principal; 2019-04-28 14:15)
DX: S32.030G Wedge compression fracture of third lumbar vertebra, subsequent encounter for fracture with delayed healing (principal); M54.9 Dorsalgia, unspecified; M54.42 Lumbago with sciatica, left side; Z98.890 Other specified postprocedural states; M81.0 Age-related osteoporosis without current pathological fracture; I10 Essential (primary) hypertension; M79.7 Fibromyalgia; M19.90 Unspecified osteoarthritis, unspecified site; D64.9 Anemia, unspecified
CPT/HCPCS: 22514; 72110; 76000; C1776; J0330; J1170; J2060; J2250; J2405; J2704; J3010

== ENCOUNTER 2019-05-23 15:15 | Emergency (ER) | payer MEDICARE, MEDICAID, SELFPAY ==
[2018-09-19 00:19] VITALS: BMI 22.2
[2019-05-23 15:21] VITALS: BP 126/62; PULSE 96; RESP 17; TEMP 36.6; O2SAT 99; BMI 18.8
--- NOTE | 2019-05-23 15:30 | DI.RAD.S_ITS ---
PROCEDURE: XR HUMERUS LT 2V INDICATIONS: fall pain TECHNIQUE: 2 views of the humerus were acquired. COMPARISON: None. FINDINGS: Bones: No fractures or dislocations. No suspicious bony lesions. Soft tissues: No suspicious soft tissue calcifications. There may be minimal atelectasis at the left costophrenic angle. IMPRESSION: No acute fracture of the left humerus. Dictated by: Kenneth Muñiz M.D. on 05/23/2019 at 15:10 Approved by: Kenneth Muñiz M.D. on 05/23/2019 at 15:12
--- NOTE | 2019-05-23 15:30 | DI.RAD.S_ITS ---
PROCEDURE: XR LUMBAR SPINE 2-3V INDICATIONS: pain fall TECHNIQUE: 2 views of the lumbar spine were acquired. COMPARISON: [facility] [place], CR, XR LUMBAR SPINE 2 OR 3 VIEWS, 05/13/2019, 13:18. FINDINGS: Bones: There are 5 lumbar-type vertebral bodies. The lowest intervertebral disk space is designated as L5-S1. The bone mineralization is decreased. Compression deformities involving the L2, L3, and L4 vertebral bodies is again evident with corresponding kyphoplasty changes. The degree of compression has not significantly changed in the interim. No new compression deformities are identified. No suspicious osseous lesions are evident. Moderate multilevel degenerative changes of the lumbar spine are evident, most pronounced involving the lower lumbar facet joints. Partial fusion of the bilateral L5 transverse processes with the adjacent sacrum are again evident with corresponding degenerative changes. Slight deformity at the S2 sacral segment it is suggestive of previous injury and has not changed since the CT of the lumbar spine dated 02/23/19. Degenerative changes of the sacroiliac joints are noted. (Incidental note is made of post surgical changes involving one of the upper arms.) Soft tissues: Left renal calculi are not well apparent on this exam. There is aortic atherosclerosis. Clips within the right upper quadrant are suggestive of previous cholecystectomy. Otherwise, the soft tissues of the imaged abdomen and pelvis are within normal limits. IMPRESSION: 1. No acute compression fracture of the lumbar spine. 2. Stable compression deformities extending from L2-L4, status post kyphoplasty. 3. Left renal calculi. Dictated by: Kenneth Muñiz M.D. on 05/23/2019 at 15:18 Approved by: Kenneth Muñiz M.D. on 05/23/2019 at 15:21
--- NOTE | 2019-05-23 15:37 | ED_ITS ---
HPI - Back Pain/Injury General Chief Complaint: Back Pain/Injury Stated Complaint: Low back pain Time Seen by Provider: 05/23/19 15:17 Source: patient Limitations: no limitations History of Present Illness HPI Narrative: Patient is a 68-year-old female who presents with back pain and left arm pain. She has a history of chronic back problems and multiple kyphoplasties, she sustained a compression fracture on 02/26/2019 after she took a ground level fall onto her buttocks. Today she did the same. She says she was little dizzy and lightheaded when she stood up which is not abnormal for her. She tried catching herself in the doorway but she was falling and hit her left humerus. It hurts whenever she moves it. She also landed on her buttocks and was complaining of pain there. Actually had repair of the L3 compression fracture on 04/29/2019. Related Data Home Medications Medication Instructions Recorded Confirmed metoprolol tartrate 25 mg PO BID #0 04/24/17 04/24/19 gabapentin 100 mg PO BID 11/07/18 04/24/19 pantoprazole 40 mg PO BID 11/07/18 04/24/19 oxycodone 5 mg PO TID 01/14/19 04/24/19 sucralfate 1 g PO QID 01/14/19 04/24/19 Previous Rx's Medication Instructions Recorded lorazepam [Ativan] 1 mg PO BID-TID PRN #5 tab 11/07/18 metronidazole [Flagyl] 500 mg PO BID #14 tab 01/14/19 prednisone 20 mg PO DAILY #5 tab 02/27/19 oxycodone See Rx Instructions .ROUTE 04/28/19 .COMPLEX PRN #15 tab Allergies Allergy/AdvReac Type Severity Reaction Status Date / Time tramadol [TRAMADOL] Allergy Unknown Verified 05/23/19 15:21 amitriptyline [AMITRIPTYLINE] AdvReac Intermediate Confusion Verified 05/23/19 15:21 Review of Systems Review of Systems Narrative: GENERAL: Denies chills, fatigue, malaise, fever, sweats, travel HEENT: Denies sinus pain, ear pain, sore throat, difficulty swallowing, neck pain RESPIRATORY: Denies dyspnea, cough, wheezing, hemoptysis, sputum. CARDIOVASCULAR: Denies chest pain, palpitations, orthopnea, edema GASTROINTESTINAL: Denies nausea, vomiting, abdominal pain, diarrhea, constipation, melena. : Denies dysuria, frequency, incontinence, hematuria, urinary retention, flank pain. MUSCULOSKELETAL: See HPI SKIN: No rash, no erythema, no pruritus NEUROLOGIC: Denies weakness, dizziness, headache, numbness, change in speech, confusion PSYCHIATRIC: No concerning psychosocial issues. 12 point review of systems is negative except for those stated above and HPI [facility] Medical History (Updated 05/23/19 @ 17:22 by Melisa Koo DO) Anxiety (Acute) Arthritis (Acute) C. difficile colitis (Acute) Chronic pain (Acute) Colitis (Acute) COPD (chronic obstructive pulmonary disease) (Acute) Depression (Acute) DJD (degenerative joint disease) (Acute) Fibromyalgia (Acute) GI bleeding (Acute) History of recurrent UTIs (Acute) HLD (hyperlipidemia) (Acute) Hypertension (Acute) Insomnia (Acute) Left foot drop (Acute) Lumbar compression fracture (Acute 02/26/19) Migraines (Acute) Multiple fractures (Acute) Neuropathy (Acute) Numbness and tingling (Acute) Osteoporosis (Acute) Radius fracture (Acute 08/30/17) Renal disease (Acute) Surgical History (Updated 04/24/19 @ 09:25 by Sonam Faith RN) H/O: hysterectomy (Acute) History of surgery (Acute) Hx of appendectomy (Acute) Hx of cholecystectomy (Acute) Hx of elbow surgery (Acute) Hx of kyphoplasty (Acute ~2013) Hx of tonsillectomy (Acute) Status post epidural steroid injection (Acute 03/25/19) Family History Mother No known health problems Father No known health problems Social History household members: significant other Smoking Status: Former smoker alcohol intake: current Social History household members: significant other Smoking Status: Former smoker alcohol intake: current Exam Initial Vital Signs Initial Vital Signs: Vital Signs Temperature 97.9 F 05/23/19 15:21 Pulse Rate 96 H 05/23/19 15:21 Respiratory Rate 17 05/23/19 15:21 Blood Pressure 126/62 05/23/19 15:21 Pulse Oximetry 99 05/23/19 15:21 GENERAL: Well-appearing, well-nourished and in no acute distress. HEENT: Head atraumatic,EOMI, pupils reactive, face symmetric CARDIOVASCULAR: Regular rate and rhythm without murmurs, rubs or gallops. RESPIRATORY: Breath sounds equal bilaterally, no wheezes rales or rhonchi. ABDOMEN: Soft, nontender. Normoactive bowel sounds all 4 quadrants. No guarding or rebound. BACK: Tender all along lumbar spine midline no sign of trauma or contusion or erythema. EXTREMITIES: Normal range of motion, no clubbing or edema. Neurovascularly intact Pain left humerus no gross bony deformity no elbow pain able flex and extend elbow although flexing elbow causes pain in humerus. Distal radial pulse intact sensation over the deltoid intact. No gross shoulder abnormality or pain. NEUROLOGICAL: Alert and oriented x4.Normal gait and speech. Cranial nerves II through XII grossly intact. SKIN: Warm, dry, no laceration, no petechiae, no rashes or lesions. Course Orders Ordered: ED Orders 05/23/19 15:30 XR humerus LT 2V Stat XR lumbar spine 2-3V Stat 05/23/19 16:41 CT lumbar spine wo con Stat CT thoracic spine wo con Stat Discontinued Medications Oxycodone/Acetaminophen (Percocet 5/325) 2 tab PO NOW ONE Stop: 05/23/19 16:43 Last Admin: 05/23/19 16:49 Dose: 2 tab Documented by: CHRISTIANE Vital Signs Vital signs: Vital Signs - 8 hr 05/23/19 15:21 Temperature 97.9 F Pulse Rate 96 H Respiratory Rate 17 Blood Pressure 126/62 Pulse Oximetry 99 MDM - Back Pain/Injury Imaging Data lumbar: Radiologist's impression: PROCEDURE: XR LUMBAR SPINE 2-3V INDICATIONS: pain fall TECHNIQUE: 2 views of the lumbar spine were acquired. COMPARISON: [facility] [place], [place], XR LUMBAR SPINE 2 OR 3 VIEWS, 05/13/2019, 13:18. FINDINGS: Bones: There are 5 lumbar-type vertebral bodies. The lowest intervertebral disk space is designated as L5-S1. The bone mineralization is decreased. Compression deformities involving the L2, L3, and L4 vertebral bodies is again evident with corresponding kyphoplasty changes. The degree of compression has not significantly changed in the interim. No new compression deformities are identified. No suspicious osseous lesions are evident. Moderate multilevel degenerative changes of the lumbar spine are evident, most pronounced involving the lower lumbar facet joints. Partial fusion of the bilateral L5 transverse processes with the adjacent sacrum are again evident with corresponding degenerative changes. Slight deformity at the S2 sacral segment it is suggestive of previous injury and has not changed since the CT of the lumbar spine dated 02/23/19. Degenerative changes of the sacroiliac joints are noted. (Incidental note is ma de of post surgical changes involving one of the upper arms.) Soft tissues: Left renal calculi are not well apparent on this exam. There is aortic atherosclerosis. Clips within the right upper quadrant are suggestive of previous cholecystectomy. Otherwise, the soft tissues of the imaged abdomen and pelvis are within normal limits. IMPRESSION: 1. No acute compression fracture of the lumbar spine. 2. Stable compression deformities extending from L2-L4, status post kyphoplasty. 3. Left renal calculi. Dictated by: Kenneth Muñiz M.D. on 05/23/2019 at 15:18 Approved by: Kenneth Muñiz M.D. on 05/23/2019 at 15:21 humerus: Radiologist's impression: PROCEDURE: XR HUMERUS LT 2V INDICATIONS: fall pain TECHNIQUE: 2 views of the humerus were acquired. COMPARISON: None. FINDINGS: Bones: No fractures or dislocations. No suspicious bony lesions. Soft tissues: No suspicious soft tissue calcifications. There may be minimal atelectasis at the left costophrenic angle. IMPRESSION: No acute fracture of the left humerus. Dictated by: Kenneth Muñiz M.D. on 05/23/2019 at 15:10 Approved by: Kenneth Muñiz M.D. on 05/23/2019 at 15:12 CT thoracic: Radiologist's impression: PROCEDURE: CT THORACIC SPINE WO CON INDICATIONS: fall pain TECHNIQUE: Noncontrast 3 mm thick sections acquired through the region of interest in the thoracic spine. Sagittal and coronal reformats were then constructed. For radiation dose reduction, the following was used: automated exposure control. COMPARISON: [facility], CT, CT LUMBAR SPINE WITHOUT CONTRAST, 02/23/2019, 15:20. [facility], CT, CT LUMBAR SPINE WO CON, 05/23/2019, 16:41. FINDINGS: Image quality: Diagnostic. Bones: Compression deformities are identified involving the T10 and T12 vertebral bodies. The compression deformity at the T12 level appears to be chronic without significant cortical offset to suggest an acute process. There is approximately 30-40% anterior vertebral height loss at this level. There is approximately 50% anterior vertebral height loss involving the T10 vertebral body with inferior articular surface sclerosis and undersurface irregularity. No additional compression deformities are evident. No displaced fractures or dislocations are appreciated involving the thoracic spine. Moderate to severe degenerative changes are noted involving the imaged cervical and thoracic spines. Multilevel disc height loss, endplate sclerosis, endplate irregularity, and disc osteophyte complexes are present. Mild facet arthrosis is also present. Slight deformity involving the proximal aspect of the sternum is evident near the sternomanubrial junction (image 31, series 5), which likely is related to a healed fracture. The imaged ribs are unremarkable. Soft tissues: The paraspinal soft tissues of the thoracic spine appear to be within normal limits. No paraspinal hematomas are appreciated. The included lungs demonstrate a moderate bronchial wall thickening within the bilateral infrahilar regions (left greater than right). No focal pulmonary consolidation is evident. No effusion or pneumothorax is evident. The heart is normal in size without a pericardial eff usion. Coronary and aortic atherosclerosis is noted. There is moderate thickening involving all of the imaged portions of the distal esophagus. Marked enlargement of the common bile duct appears to be present, but is not well evaluated. The common bile duct measures up to approximately 1.8 cm in transverse dimension. The patient has had a prior cholecystectomy. Left renal calculus is incidentally noted. Otherwise, the included portions of the upper abdomen are unremarkable. IMPRESSION: 1. T10 and T12 compression deformities are age-indeterminate, but at least noted to be chronic and unchanged since 02/23/19. 2. Moderate to severe degenerative changes of the imaged cervicothoracic spine. 3. Bronchial wall thickening within the infrahilar regions (left greater than right) is suspicious for possible bronchitis. Please correlate clinically. 4. The distal esophageal wall thickening may represent chronic esophagitis. Upper endoscopy may be helpful for better characterization. 5. Marked enlargement of the common bile duct may be related to previous cholecystectomy. Liver function tests are persistently elevated and/or increasing, MRCP would be helpful for better characterization. 6. Left renal calculi. Dictated by: Kenneth Muñiz M.D. on 05/23/2019 at 16:18 CT lumbar: Radiologist's impression: PROCEDURE: CT LUMBAR SPINE WO CON INDICATIONS: fall bad pain TECHNIQUE: Noncontrast 3 mm thick sections acquired from the T12 level to the sacrum. Sagittal and coronal reformats were constructed. For radiation dose reduction, the following was used: automated exposure control. COMPARISON: [facility], CT, CT THORACIC SPINE WO CON, 05/23/2019, 16:41. [facility], CR, XR LUMBAR SPINE 2-3V, 05/23/2019, 15:39. [facility], CT, CT LUMBAR SPINE WITHOUT CONTRAST, 02/23/2019, 15:20. FINDINGS: Image quality: Diagnostic. Bones: Compression deformities are identified on the T12, L2, L3, and L4 vertebral bodies. The degree of vertical height loss involving these vertebral bodies levels has not significantly changed since the prior CT from 02/23/19. Kyphoplasty changes are noted at L2, L3, and L4. No acute or new fractures of the lumbar spine are evident. No suspicious osseous lesions or dislocations are evident. Slight deformity involv ing the S2 sacral segment is identified, suggesting previous trauma with an associated healed fracture, unchanged. Moderate multilevel degenerative changes of the lumbar spine are present demonstrating multilevel disc height loss, disc osteophyte complexes, and facet arthrosis. Mild retropulsion involving the L2 and L3 vertebral bodies is evident from previous injuries. Multifocal disc bulges are evident throughout the lumbar spine. There is a moderate bony neural foraminal narrowing at L3-4 and L4-5 are identified. Soft tissues: Imaged paraspinal soft tissues demonstrate marked enlargement of the common bile duct, measuring up to approximately 1.8 cm. This is similar to the prior CT. The patient has had a prior cholecystectomy. Multiple calculi are evident within the left kidney. There is mild hydronephrosis versus an extrarenal pelvis. Imaged bowel loops are nondilated. Aortic and iliac artery atherosclerosis is noted. There may be areas of wall thickening involving the sigmoid colon without definite surrounding inflammation. A moderate amount of stool seen throughout the imaged portions of the colon. The midportion of the urinary bladder wall are not significantly thickened. IMPRESSION: 1. No acute fracture of lumbar spine. 2. Unchanged compression deformities involving the T12, L2, L3, and L4 vertebral bodies. Unchanged kyphoplasty changes at L2-L4. 3. Moderate degenerative changes of the lumbar spine have not significantly progressed. There are areas of neural foraminal stenosis. 4. Left renal calculi. 5. Markedly enlarged common bile duct may be related to previous cholecystectomy. If the patient's liver function tests are persistently elevated and/or increasing, please consider MRCP for further evaluation. 6. Probable colonic constipation. Dictated by: Kenneth Muñiz M.D. on 05/23/2019 at 16:32 MDM Narrative Medical decision making narrative: Patient's x-rays do not show any new or acute fracture. However now complaining of more significant back pain. Upon reexamination she does have a small abrasion over the center of her back. Weeks she has pain at the thoracolumbar junction. CTs scans do not show any new or acute fracture. Discharge Plan Departure Patient Disposition: Home Clinical Impression: Acute exacerbation of chronic low back pain Sprain of left upper arm Qualifiers: Encounter type: initial encounter Qualified Code(s): S53.402A - Unspecified sprain of left elbow, initial encounter Instructions: DI for Shoulder Pain Activity Restrictions/Additional Instructions: *You have been diagnosed with left arm pain, acute on chronic back pain *What to do: Increase activity as tolerated. There is no sign of any broken bone. He had x-rays and CT scans today. *Continue to take medications as directed *Follow up with your primary care provider in 2-3 days *Return to ER if you should have leg weakness, urinary incontinence, or any new, worsening or concerning symptoms Prescriptions: No Action metoprolol tartrate 25 MG tablet 25 mg PO BID Qty: 0 RF: 0 sucralfate 1 gram tablet 1 g PO QID RF: 0 oxycodone 5 mg tablet 5 mg PO TID RF: 0 metronidazole [Flagyl] 500 mg tablet 500 mg PO BID Qty: 14 RF: 0 prednisone 20 mg tablet 20 mg PO DAILY Qty: 5 RF: 0 oxycodone 5 mg tablet See Rx Instructions .ROUTE .COMPLEX PRN (Reason: pain) Qty: 15 RF: 0 pantoprazole 40 mg tablet,delayed release (DR/EC) 40 mg PO BID RF: 0 gabapentin 100 mg capsule 100 mg PO BID RF: 0 lorazepam [Ativan] 1 mg tablet 1 mg PO BID-TID PRN (Reason: anxiety) Qty: 5 RF: 0 Referrals: Luis Hernandez MD [Primary Care Provider] -
--- NOTE | 2019-05-23 16:41 | DI.CT.S_ITS ---
PROCEDURE: CT THORACIC SPINE WO CON INDICATIONS: fall pain TECHNIQUE: Noncontrast 3 mm thick sections acquired through the region of interest in the thoracic spine. Sagittal and coronal reformats were then constructed. For radiation dose reduction, the following was used: automated exposure control. COMPARISON: [facility] Outside Film, CT, CT LUMBAR SPINE WITHOUT CONTRAST, 02/23/2019, 15:20. [facility], CT, CT LUMBAR SPINE WO CON, 05/23/2019, 16:41. FINDINGS: Image quality: Diagnostic. Bones: Compression deformities are identified involving the T10 and T12 vertebral bodies. The compression deformity at the T12 level appears to be chronic without significant cortical offset to suggest an acute process. There is approximately 30-40% anterior vertebral height loss at this level. There is approximately 50% anterior vertebral height loss involving the T10 vertebral body with inferior articular surface sclerosis and undersurface irregularity. No additional compression deformities are evident. No displaced fractures or dislocations are appreciated involving the thoracic spine. Moderate to severe degenerative changes are noted involving the imaged cervical and thoracic spines. Multilevel disc height loss, endplate sclerosis, endplate irregularity, and disc osteophyte complexes are present. Mild facet arthrosis is also present. Slight deformity involving the proximal aspect of the sternum is evident near the sternomanubrial junction (image 31, series 5), which likely is related to a healed fracture. The imaged ribs are unremarkable. Soft tissues: The paraspinal soft tissues of the thoracic spine appear to be within normal limits. No paraspinal hematomas are appreciated. The included lungs demonstrate a moderate bronchial wall thickening within the bilateral infrahilar regions (left greater than right). No focal pulmonary consolidation is evident. No effusion or pneumothorax is evident. The heart is normal in size without a pericardial effusion. Coronary and aortic atherosclerosis is noted. There is moderate thickening involving all of the imaged portions of the distal esophagus. Marked enlargement of the common bile duct appears to be present, but is not well evaluated. The common bile duct measures up to approximately 1.8 cm in transverse dimension. The patient has had a prior cholecystectomy. Left renal calculus is incidentally noted. Otherwise, the included portions of the upper abdomen are unremarkable. IMPRESSION: 1. T10 and T12 compression deformities are age-indeterminate, but at least noted to be chronic and unchanged since 02/23/19. 2. Moderate to severe degenerative changes of the imaged cervicothoracic spine. 3. Bronchial wall thickening within the infrahilar regions (left greater than right) is suspicious for possible bronchitis. Please correlate clinically. 4. The distal esophageal wall thickening may represent chronic esophagitis. Upper endoscopy may be helpful for better characterization. 5. Marked enlargement of the common bile duct may be related to previous cholecystectomy. Liver function tests are persistently elevated and/or increasing, MRCP would be helpful for better characterization. 6. Left renal calculi. Dictated by: Kenneth Muñiz M.D. on 05/23/2019 at 16:18 Approved by: Kenneth Mñuiz M.D. on 05/23/2019 at 16:29
--- NOTE | 2019-05-23 16:41 | DI.CT.S_ITS ---
PROCEDURE: CT LUMBAR SPINE WO CON INDICATIONS: fall bad pain TECHNIQUE: Noncontrast 3 mm thick sections acquired from the T12 level to the sacrum. Sagittal and coronal reformats were constructed. For radiation dose reduction, the following was used: automated exposure control. COMPARISON: [facility], CT, CT THORACIC SPINE WO CON, 05/23/2019, 16:41. [facility], CR, XR LUMBAR SPINE 2-3V, 05/23/2019, 15:39. [facility] Outside Film, CT, CT LUMBAR SPINE WITHOUT CONTRAST, 02/23/2019, 15:20. FINDINGS: Image quality: Diagnostic. Bones: Compression deformities are identified on the T12, L2, L3, and L4 vertebral bodies. The degree of vertical height loss involving these vertebral bodies levels has not significantly changed since the prior CT from 02/23/19. Kyphoplasty changes are noted at L2, L3, and L4. No acute or new fractures of the lumbar spine are evident. No suspicious osseous lesions or dislocations are evident. Slight deformity involving the S2 sacral segment is identified, suggesting previous trauma with an associated healed fracture, unchanged. Moderate multilevel degenerative changes of the lumbar spine are present demonstrating multilevel disc height loss, disc osteophyte complexes, and facet arthrosis. Mild retropulsion involving the L2 and L3 vertebral bodies is evident from previous injuries. Multifocal disc bulges are evident throughout the lumbar spine. There is a moderate bony neural foraminal narrowing at L3-4 and L4-5 are identified. Soft tissues: Imaged paraspinal soft tissues demonstrate marked enlargement of the common bile duct, measuring up to approximately 1.8 cm. This is similar to the prior CT. The patient has had a prior cholecystectomy. Multiple calculi are evident within the left kidney. There is mild hydronephrosis versus an extrarenal pelvis. Imaged bowel loops are nondilated. Aortic and iliac artery atherosclerosis is noted. There may be areas of wall thickening involving the sigmoid colon without definite surrounding inflammation. A moderate amount of stool seen throughout the imaged portions of the colon. The midportion of the urinary bladder wall are not significantly thickened. IMPRESSION: 1. No acute fracture of lumbar spine. 2. Unchanged compression deformities involving the T12, L2, L3, and L4 vertebral bodies. Unchanged kyphoplasty changes at L2-L4. 3. Moderate degenerative changes of the lumbar spine have not significantly progressed. There are areas of neural foraminal stenosis. 4. Left renal calculi. 5. Markedly enlarged common bile duct may be related to previous cholecystectomy. If the patient's liver function tests are persistently elevated and/or increasing, please consider MRCP for further evaluation. 6. Probable colonic constipation. Dictated by: Kenneth Muñiz M.D. on 05/23/2019 at 16:32 Approved by: Kenneth Muñiz M.D. on 05/23/2019 at 16:37
[2019-05-23] MEDS: OXYCODONE/ACETAMINOPHEN 5/325 TABLET 2 TAB PO (16:49)
--- NOTE | 2019-05-23 18:50 | PC.NURSE ---
[employer] cab called back to say they would be here approx 0 to pick pt up
--- NOTE | 2019-05-23 19:00 | PC.NURSE ---
Addendum entered by Yuliana James R.N. 05/23/19 21:54: After patient requested more pain medication and was told that it was too soon to give her more she said that she was going to write a letter about the doctor for bad doctoring. Original Note: Pt requesting more pain medication. Informed her that she was given medication for pain 2 hours prior
[2019-05-23 19:02] VITALS: BP 111/58; PULSE 88
--- NOTE | 2019-05-23 19:25 | PC.NURSE ---
CARMEN Hernandez brought a wheelchair into patients room to assist her to the lobby to wait for a cab. Pt requesting to speak to the doctor. I informed pt that her doctor has left for the day and she has been discharged. Pt stated I want to talk to the next doctor. I told her that he is not caring for her,she has been discharged and she is more than welcome to check back in if she wants to be seen by the next provider. Then the pt said well what if I said I fell. Mary and I both said to her you did not just fall. The pt said Yes I did. I said we were just in here and you haven't moved off of this bed.. Pt stated it was a couple hours ago. I asked her why she didn't inform anyone when this happened. The pt stated I didn't want to. Mary and I offered to push the patient in a wheelchair to the lobby. The patient said I don't want your help,I can push myself and then when I go out there and fall it will be your fault. Pt given some coffee,blanket and pushed to the bathroom by Kira Love. Pt refused to go to the bathroom in the ED. Kira pushed her to the lobby where the patient took herself to the bathroom.
== END 2019-05-23 19:04 | disposition home or self-care (01) ==
PROVIDERS: Emergency Provider Emergency Medicine; PCP Family Medicine
DX: M54.5 Low back pain (principal); S53.402A Unspecified sprain of left elbow, initial encounter; W18.30XA Fall on same level, unspecified, initial encounter; Z91.81 History of falling
CPT/HCPCS: 72100; 72128; 72131; 73060; 99282; 99283

== ENCOUNTER → 2019-07-13 16:04 | Outpatient (CLI) | payer MEDICARE, MEDICAID, SELFPAY ==
[2018-09-19 00:19] VITALS: BMI 22.2
--- NOTE | 2019-07-13 16:07 | DI.MRI.S_ITS ---
PROCEDURE: MR SHOULDER LT WO CON INDICATIONS: shoulder pain TECHNIQUE: Noncontrast oblique coronal T2 fast spin echo with fat saturation, oblique sagittal T1 spin echo and T2 fast spin echo with fat saturation, axial T1 spin echo and T2 fast spin echo with fat saturation through the shoulder. COMPARISON: [facility], CT, CT THORACIC SPINE WO CON, 05/23/2019, 16:41. [facility] [place], RF, LUMBAR SPINE INTERIAMINAR, 06/17/2019, 14:01. [facility], CR, XR HUMERUS LT 2V, 05/23/2019, 15:35. FINDINGS: Image quality: Excellent. Rotator cuff: The supraspinatus, infraspinatus, and subscapularis tendons appear intact throughout. Sagittal images demonstrate no muscle atrophy. Bones and bursae: No cortical fractures. Slight edema without fracture is identified medial to the a.c. joint along the left clavicle There is mild acromioclavicular joint degeneration. The acromion demonstrates conventional anatomy, without an os acromiale. No pathologic subacromial-subdeltoid or subcoracoid bursal fluid is present. Capsule and soft tissues: In the absence of intra-articular contrast, the labrum and glenohumeral ligaments appear intact. The long head of the biceps tendon demonstrates normal location and morphology. The rotator interval appears normal, without fibrosis. The coracohumeral ligament is normal in thickness. IMPRESSION: No rotator cuff tear or hidden fracture is identified. Slight edema is present within the marrow space of the left clavicle proximal to the mildly degenerated a.c. joint. This area has been covered by plain film and CT scanning after trauma in that area 05/23/19, without fracture suspected. Dictated by: Anthony Jordan M.D. on 07/13/2019 at 17:29 Approved by: Anthony Jordan M.D. on 07/13/2019 at 17:36
== END ==
PROVIDERS: Visit Provider Orthopaedic Surgery
DX: M25.512 Pain in left shoulder (principal)
CPT/HCPCS: 73221

== ENCOUNTER 2019-07-28 14:10 | Day surgery (SDC) | payer MEDICARE, MEDICAID, SELFPAY ==
[2018-09-19 00:19] VITALS: BMI 22.2
[2019-07-24 08:23] VITALS: BMI 19.7
[2019-07-28] VITALS (8 sets, daily range): BP systolic 119–180; BP diastolic 74–99; PULSE 67–78; RESP 12–18; TEMP 36.6–36.7; O2SAT 96–100; BMI 18.8
--- NOTE | 2019-07-28 | PATH_ITS ---
[facility] Accession Number: [id number] . 01 Material submitted: . vertebral column - L1 VERTEBRAL BODY . 02 Diagnosis: L1 Vertebral Body, Biopsy: Fragments of bone and bone marrow with maturing trilineage hematopoiesis. No evidence of neoplasm. MRV 07/31/2019 1128 Local . 02 Electronically signed: . Gregory Corona MD, PhD, Pathologist NPI- [id number] . 01 Gross description: . Received in formalin, labeled vertebral body L1, are multiple fragments of zaldivar gritty bone (0.3 x 0.3 x 0.2 cm in aggregate). Decalcified and entirely submitted in cassette A1. ([id number]) /MRV 07/30/2019 1643 Local . 02 Pathologist provided ICD-10: S32.010A . 02 CPT . 484867 Performed at: 01 [facility] [address] [facility], [place], [place] [id number] MD Festus Garcia MD Phone: [phone] Performed at: [address] [facility] [address] [place], [place] [id number] MD Teri Coyle MD Phone: [phone]
--- NOTE | 2019-07-28 | DI.RAD.S_ITS ---
PROCEDURE: XR LUMBAR SPINE 2-3V INDICATIONS: L1 KYPHO TECHNIQUE: 4 views of the lumbar spine were acquired. COMPARISON: [facility], CT, CT LUMBAR SPINE WO CON, 05/23/2019, 16:41. [facility] [place], CR, XR LUMBAR SPINE 2 OR 3 VIEWS, 07/22/2019, 13:23. [facility], CR, XR LUMBAR SPINE 2-3V, 05/23/2019, 15:39. [facility], CR, XR LUMBAR SPINE MIN 4V, 04/28/2019, 16:00. FINDINGS: Bones: 5 [id number] vertebrae are present. There is mildly kyphotic bony alignment centered at L1, level of a new compression fracture. No additional new vertebral body compression fractures, and there is stable appearance of a mild anterior wedge morphology likely due to to old compression fracture at T12. No suspicious bony lesions. Prior vertebroplasty/kyphoplasty bone cement has been present at L2, L3, L4. At termination of the procedure for the current examination additional bone cement has been placed successfully centrally at L1. Soft tissues: Overlying bowel gas pattern is normal. No suspicious soft tissue calcifications. IMPRESSION: Successful bone cement placement during kyphoplasty procedure L1 level. Old mild anterior wedge compression fracture T12. Dictated by: Anthony Jordan M.D. on 07/29/2019 at 9:54 Approved by: Anthony Jordan M.D. on 07/29/2019 at 10:00
--- NOTE | 2019-07-28 16:17 | SUR.PREOP ---
multiple attempts made for IV access and all were unsuccessful- with and without vein finder. Anesthesia aware.
[2019-07-28] MEDS: LACTATED RINGERS 1,000 ML 42 ML IV (16:30)
--- NOTE | 2019-07-28 16:56 | PM.PREOP ---
Pre-operative Note Interval Note History & Physical reviewed/Exam performed by Physician: Yes Changes to H&P: No
--- NOTE | 2019-07-28 17:00 | PM.OP.1 ---
Operative Date/Time/Diagnoses Date of procedure: 07/28/19 Time of procedure: 17:48 Pre-op diagnosis: L1 compression fracture Post-op diagnosis: same Procedure & Clinicians Procedure: L1 kyphoplasty Same procedure as scheduled: Yes Indications: [age] year old female with intractable pain from an acute L1 compression fracture. They had failed conservative management and requested operative intervention. Risks and benefits of surgery were discussed and appropriate consents were obtained. Surgeon: Percy Medina Click Yes if Unassisted: Yes Anesthesia Type: General Operative Notes Findings: None Closure Type: primary Specimen(s): other (L1 vertebral biopsy) Estimated Blood Loss (mL): 2 Blood products transfused: none Procedure in detail: The patient was brought to the operating room and intubated on the table. They were then rolled over to the well-padded prone position. Time-out was performed. We confirmed positioning with two fluoroscopy views. The back was prepped and draped in the standard sterile fashion. Preoperative antibiotics were given. Using fluoroscopic guidance, the planned incision site was infiltrated with Marcaine with epinephrine and injected down to the entry site of the left pedicle of L1. A small stab incision was made and we advanced a Jamshiedi needle down the left pedicle into the vertebral body. A bone biopsy was harvested from this and sent to pathology. We then passed the DFine osteotome and opened it up to create a void inside the vertebral body. We then began injecting the cement. This was done with frequent fluoroscopy imaging. There was no extravasation. Once we had good fill of the L1 vertebral body the injection was stopped and the trocars were removed. Final x-rays were taken. The wound was cleaned. Steri-Strips and sterile dressing were placed. Patient was rolled over, extubated, and brought to recovery without complications. Complications: none Post-operative Condition: stable Disposition: PACU Plan for aftercare: Outpatient. Activity as tolerated.
[2019-07-28] MEDS: CEFAZOLIN 1 GM/50 ML FROZ.PIGGY IV (17:18)
--- NOTE | 2019-07-28 17:39 | SUR.OPER ---
Prone on padded OR bed, head in foam head support, gel chest rolls, gel pad under knees, pillow under lower legs, toes free of pressure, arms secured on padded arm boards at <90 degrees abduction. Safety belt at thigh.
[2019-07-28] MEDS: BUPIVACAINE 0.25% W/ EPI 30 ML VIAL 60 ML INJ (17:58)
[2019-07-28] MEDS: OXYCODONE/ACETAMINOPHEN 5/325 TABLET 1 TAB PO ×2 (18:05→18:50)
--- NOTE | 2019-07-28 18:07 | SUR.PHASEI ---
PO rx for pain /10, improved from 04/28. HOB elevated, drinking, eating.
--- NOTE | 2019-07-28 18:45 | SUR.PHASEII ---
183 assisted in ambulating to the bathroom, voided without difficulty. 183 Cargiver to bedside; assisting patient with dressing. She desires another pain pill for pain 4-5/10.
--- NOTE | 2019-07-28 18:58 | SUR.PHASEII ---
1857 discharged to home with caregiver. Stable, chronic pain since childhood with multiple health problems. Pt. pleasant, calm, stable on feet to transfer. Expressed appreciation for care multiple times.
== END 2019-07-28 18:57 | disposition home or self-care (01) ==
PROVIDERS: Family Provider Family Medicine; PCP Family Medicine; Visit Provider Orthopaedic Surgery
PROC: (CPT 22514; principal; 2019-07-28 16:15)
DX: S32.010A Wedge compression fracture of first lumbar vertebra, initial encounter for closed fracture (principal); M54.9 Dorsalgia, unspecified; M19.90 Unspecified osteoarthritis, unspecified site; Z98.890 Other specified postprocedural states; M81.0 Age-related osteoporosis without current pathological fracture; I10 Essential (primary) hypertension; M79.7 Fibromyalgia; D64.9 Anemia, unspecified
CPT/HCPCS: 22514; 72100; 76000; C1776; J2704; J3010

== ENCOUNTER → 2019-10-05 14:05 | Outpatient (CLI) | payer MEDICARE, MEDICAID, SELFPAY ==
[2018-09-19 00:19] VITALS: BMI 22.2
--- NOTE | 2019-10-05 14:09 | DI.CT.S_ITS ---
PROCEDURE: CT LE LT W CON INDICATIONS: Nondisplaced fracture of first metatarsal bone, le TECHNIQUE: Noncontrast 1-1.5 mm axial sections acquired from above the tibiotalar joint to the bottom of the calcaneus, with coronal and sagittal reformats. COMPARISON: [facility] Outside Film, RG, FOOT COMP MIN 3VW (LT), 09/23/2019, 15:01. [facility] [place], CR, XR FOOT 3 VIEWS WEIGHT BEARING LEFT, 09/29/2019, 11:47. FINDINGS: Image quality: Excellent. Plate and screw fixation of the distal tibia. The hardware appears grossly intact. Comminuted intra-articular fracture of the first metatarsal base. There is 1 mm of diastasis of the first metatarsal base articular surface and possibly 1 mm of cortical step-off. There is also mild impacted appearance. Diffuse osteopenia is present. Spurring of the plantar calcaneus. Diffuse muscular atrophy is present. IMPRESSION: Comminuted intra-articular fracture of the first metatarsal base, mildly impacted appearance as above Dictated by: Ricardo Lanza M.D. on 10/05/2019 at 15:48 Approved by: Ricardo Lanza M.D. on 10/05/2019 at 15:53
== END ==
PROVIDERS: Family Provider Family Medicine; PCP Family Medicine; Referring Provider Orthopaedic Surgery Foot and Ankle Surgery; Visit Provider Orthopaedic Surgery Foot and Ankle Surgery
DX: S92.312A Displaced fracture of first metatarsal bone, left foot, initial encounter for closed fracture (principal); X58.XXXA Exposure to other specified factors, initial encounter
CPT/HCPCS: 73700

== ENCOUNTER 2019-11-10 12:19 | Emergency (ER) | payer MEDICARE, MEDICAID, SELFPAY ==
[2018-09-19 00:19] VITALS: BMI 22.2
[2019-11-10 12:47] VITALS: BP 154/74; PULSE 89; RESP 14; TEMP 36.3; O2SAT 100; BMI 20.9
--- NOTE | 2019-11-10 13:03 | CM.MNRNOTE ---
pt reports twisted left foot ,bathroom last night at 8pm. denies loc,denies head injury, denies neck or back pain. also reported shaved heel calus,left great toe, now noted 5 small black dots. left ankle with red,swelling. pt states non wt bearing, pt very sensitive to touch.
--- NOTE | 2019-11-10 13:16 | DI.RAD.S_ITS ---
PROCEDURE: XR ANKLE LT MIN 3V INDICATIONS: pain in L foot, ankle and LE, include low tib/fib please TECHNIQUE: 3 views of the ankle were acquired. COMPARISON: None. FINDINGS: Bones: Prior fixation of distal tibial shaft and medial malleolus is seen with surgical hardware in place. No gross hardware loosening or failure. Healing distal tibial shaft fracture is noted. No acute ankle fracture or dislocation. Ankle mortise is normally aligned. Subcutaneous appearing fractures involving the second and first metatarsal bases are seen. Osteopenia is also noted. No suspicious bony lesions. Soft tissues: No tibiotalar joint effusion. Achilles tendon appears normal. IMPRESSION: 1. Healing or healed distal tibial shaft fracture with prior internal fixation. No gross hardware complication. 2. No acute ankle fracture or dislocation. Subacute appearing first and second metatarsal base fractures. Ankle mortise is congruent. Osteopenia. Dictated by: Jon Braxton M.D. on 11/10/2019 at 13:38 Approved by: Jon Braxton M.D. on 11/10/2019 at 13:50
--- NOTE | 2019-11-10 13:16 | DI.RAD.S_ITS ---
PROCEDURE: XR FOOT LT MIN 3V INDICATIONS: pain in L foot, ankle and lower extremity TECHNIQUE: 3 views of the foot were acquired. COMPARISON: [facility] [place], CR, XR FOOT 3 VIEWS WEIGHT BEARING LEFT, 09/29/2019, 11:47. FINDINGS: Bones: Fixation hardware in distal tibial shaft and medial malleolus is seen. Diffuse osteopenia is noted. Sclerosis and radiolucency with corticated margin involving first and second metatarsal bases are noted suggestive of subacute fractures. Osteophytic changes are also noted throughout the foot and forefoot. Soft tissues: No tibiotalar joint effusion. Achilles tendon appears normal. IMPRESSION: Suggestion of subacute fractures involving first and second metatarsal bases. Osteopenia. Osteoarthritis throughout midfoot and forefoot. Dictated by: Jon Braxton M.D. on 11/10/2019 at 13:35 Approved by: Jon Braxton M.D. on 11/10/2019 at 13:38
--- NOTE | 2019-11-10 14:44 | ED.LOWEXIN ---
HPI - Extremity Injury (Lower) <NICOLE Lerma - Last Filed: 11/10/19 15:02> General Chief Complaint: Extremity Injury, Lower Stated Complaint: left foot injury Time Seen by Provider: 11/10/19 12:52 Source: patient Mode of arrival: Wheelchair Limitations: no limitations History of Present Illness HPI Narrative: This is a 69-year-old female, former smoker, who presents to ED with her caregiver with chief complain of pain all over in left foot and ankle since she has injured last night at 8pm by twisting her affected foot. Patient is unable to recall exact mechanism of injury but states she has neuropathy on affected foot/leg injured the foot/leg in the bathroom. Patient has history of hypertension, osteoporosis, osteoarthritis, tibia fracture and repaired with surgical hardware, chronic back pain and fibromyalgia. Patient reports she takes oxycodone, gabapentin, Advil for her pain which she already she had taken. Patient reports constant pain that increases with movement. Patient reports intact sensation but swelling to affected foot and reports she was unable to bear her weight after the injury. She uses wheelchair at home as needed and reports is unable to use crutches, walker or cane since she is not able to bear her weight in her arm. Related Data Home Medications Medication Instructions Recorded Confirmed metoprolol tartrate 25 mg PO BID #0 04/24/17 07/28/19 gabapentin 300 mg PO TID 11/07/18 07/28/19 pantoprazole 40 mg PO BID 11/07/18 07/28/19 oxycodone 10 mg PO Q3H 01/14/19 07/28/19 sucralfate 1 g PO QID 01/14/19 07/28/19 Previous Rx's Medication Instructions Recorded oxycodone 5 mg PO Q6H PRN #10 cap 07/28/19 Allergies Allergy/AdvReac Type Severity Reaction Status Date / Time tramadol [TRAMADOL] Allergy Unknown Verified 11/10/19 12:47 amitriptyline [AMITRIPTYLINE] AdvReac Intermediate Confusion Verified 11/10/19 12:47 Review of Systems <NICOLE Lerma - Last Filed: 11/10/19 15:02> Review of Systems Narrative: General: Denies fever, chills, fatigue, malaise, sweats. HEENT: Denies sinus pain, ear pain, sore throat, difficulty swallowing, dizziness. Respiratory: Denies dyspnea, cough, wheezing, hemoptysis, sputum. Cardiovascular: Denies chest pain, palpitations, orthopnea, edema. Gastrointestinal: Denies nausea, vomiting, abdominal pain, diarrhea, constipation, melena. : Denies dysuria, frequency, incontinence, hematuria, urinary retention. Musculoskeletal: See HPI Skin: Denies rash, skin lesions, or other. Neurologic: Denies weakness, headache, numbness, change in speech, confusion, seizures, incoordination. Psychiatric: No concerning psychosocial issues. 12-point review of systems is negative except for those stated above. Patient History <NICOLE Lerma - Last Filed: 11/10/19 15:02> Medical History Anxiety (Acute) Arthritis (Acute) C. difficile colitis (Acute) Chronic pain (Acute) Colitis (Acute) Compression fracture of L1 vertebra (Acute ~07/2019) COPD (chronic obstructive pulmonary disease) (Acute) Depression (Acute) DJD (degenerative joint disease) (Acute) Fibromyalgia (Acute) Fracture, tibia (Acute) GI bleeding (Acute) History of recurrent UTIs (Acute) HLD (hyperlipidemia) (Acute) Hypertension (Acute) Insomnia (Acute) Left foot drop (Acute) Lumbar compression fracture (Acute 02/26/19) Migraines (Acute) Multiple fractures (Acute) Neuropathy (Acute) Numbness and tingling (Acute) Osteoporosis (Acute) Radius fracture (Acute 08/30/17) Renal disease (Acute) Surgical History H/O: hysterectomy (Acute) History of surgery (Acute) Hx of appendectomy (Acute) Hx of cholecystectomy (Acute) Hx of elbow surgery (Acute) Hx of kyphoplasty (Acute ~2013) Hx of kyphoplasty (Acute 04/28/19) Hx of tonsillectomy (Acute) Status post epidural steroid injection (Acute 03/25/19) Family History Mother No known health problems Father No known health problems Social History household members: significant other Smoking Status: Former smoker alcohol intake: current Smoking Status: Former smoker alcohol intake frequency: holidays/special occasions only Substance Use Type: does not use and former substance user Exam <NICOLE Lerma - Last Filed: 11/10/19 15:02> Narrative Exam Narrative: General appearance: well developed, thin appearing, in no acute distress. Head: normocephalic, atraumatic, no scalp lesions, non-tender. ENT: Hearing grossly intact. Nose without bleeding, purulent discharge. Mucous membrane moist, no mucosal lesion. Uvula in midline, airway patent. Neck/Thyroid: neck supple, full range of motion, no visible masses or meningeal signs. No JVD, non-tender without lymphadenopathy. Skin: light yellowish brusing on r side face. no suspicious rashes, lesions over visible areas. Warm and dry and appropriate color for ethnicity. Heart: no clubbing, no cyanosis, no edema. Lungs: Breathing even and unlabored. No stridor. No accessory muscles used. Able to speak in full sentences. Chest: normal shape and expansion. Abdomen: non-obese, non-distended. Neurologic: alert and oriented. Cognitive exam, PERINATAL COORDINATOR and PNS grossly intact on informal exam. Psych: good eye contact, normal affect. Initial Vital Signs Initial Vital Signs: Vital Signs Temperature 97.3 F L 11/10/19 12:47 Pulse Rate 89 11/10/19 12:47 Respiratory Rate 14 11/10/19 12:47 Blood Pressure 154/74 H 11/10/19 12:47 Pulse Oximetry 100 11/10/19 12:47 Extrem Left lower extremity: foot (able to wiggle toes gently) Details: abnormal to inspection (edema) Details: not erythematous, tenderness Location: of the dorsal foot, of the lateral foot, of the medial foot and of the mid foot, abnormal ROM of toe, warmth, edema (generalized edema to left dorsal foot), ecchymosis (in dorsal 2nd and 3rd proximal PIP joint area), vascular exam Details: dorsalis pedis pulse present and motor-sensory exam Details: light-touch normal; no abrasions, no lacerations, no crepitus and no puncture wound <Collin Guzman DO - Last Filed: 11/10/19 15:27> Initial Vital Signs Initial Vital Signs: Vital Signs Temperature 97.3 F L 11/10/19 12:47 Pulse Rate 89 11/10/19 12:47 Respiratory Rate 14 11/10/19 12:47 Blood Pressure 154/74 H 11/10/19 12:47 Pulse Oximetry 100 11/10/19 12:47 Procedures <NICOLE Lerma - Last Filed: 11/10/19 15:02> Orthopedic Splinting/Casting Injury #1: Side: left Lower Extremity Injury Location: foot Lower Extremity Immobilizer: posterior splint Other Orthopedic Equipment: other (will use her own wheel chair) Post splinting neuro exam: intact Post splinting vascular exam: intact Placed by: Nursing Scores <NICOLE Lerma - Last Filed: 11/10/19 15:02> GCS [place] coma scale eye opening: Spontaneous Rosalie coma scale verbal response: Orientated [place] coma scale motor response: Obey commands [place] coma scale total score: 15 Course <NICOLE Lerma - Last Filed: 11/10/19 15:02> Orders Ordered: ED Orders 11/10/19 13:16 XR ankle LT min 3V Stat XR foot LT min 3V Stat Vital Signs Vital signs: Vital Signs - 8 hr 11/10/19 12:47 11/10/19 14:57 Temperature 97.3 F L Pulse Rate 89 76 Respiratory Rate 14 20 Blood Pressure 154/74 H 160/76 H Pulse Oximetry 100 100 <Collin Guzman DO - Last Filed: 11/10/19 15:27> Orders Ordered: ED Orders 11/10/19 13:16 XR ankle LT min 3V Stat XR foot LT min 3V Stat Vital Signs Vital signs: Vital Signs - 8 hr 11/10/19 12:47 11/10/19 14:57 Temperature 97.3 F L Pulse Rate 89 76 Respiratory Rate 14 20 Blood Pressure 154/74 H 160/76 H Pulse Oximetry 100 100 MDM - Extremity Injury (Lower) <NICOLE Lerma - Last Filed: 11/10/19 15:02> Differential Diagnosis Differential diagnosis: Likely ankle sprain and strain, ankle fracture and other (Foot fracture, foot strain) Medical Records Attestation: I reviewed the patient's medical records. Imaging Data XR-Foot LT: Radiologist's Impression: [address] [address] XRay Report Signed Patient: Emani Leiva LMR#: [id number] : 2Acct:[id number] Age/Sex: 69 / FDate of Service: 11/10/19 Loc: ED Accession Number: [id number] Procedure: XR foot LT min 3V Ordering Provider: Juan Pablo Hunter PROCEDURE: XR FOOT LT MIN 3V INDICATIONS: pain in L foot, ankle and lower extremity TECHNIQUE: 3 views of the foot were acquired. COMPARISON: [facility], XR FOOT 3 VIEWS WEIGHT BEARING LEFT, 09/29/2019, 11:47. FINDINGS: Bones: Fixation hardware in distal tibial shaft and medial malleolus is seen. Diffuse osteopenia is noted. Sclerosis and radiolucency with corticated margin involving first and second metatarsal bases are noted suggestive of subacute fractures. Osteophytic changes are also noted throughout the foot and forefoot. Soft tissues: No tibiotalar joint effusion. Achilles tendon appears normal. IMPRESSION: Suggestion of subacute fractures involving first and second metatarsal bases. Osteopenia. Osteoarthritis throughout midfoot and forefoot. Dictated by: Jon Braxton M.D. on 11/10/2019 at 13:35 Approved by: Jon Braxton M.D. on 11/10/2019 at 13:38 XR- Ankle LT: Radiologist's Impression: [address] [address] XRay Report Signed Patient: Emani Leiva LMR#: [id number] : 2At:[id number] Age/Sex: 69 / FDate of Service: 11/10/19 Loc: ED Accession Number: [id number] Procedure: XR ankle LT min 3V Ordering Provider: Juan Pablo Hunter PROCEDURE: XR ANKLE LT MIN 3V INDICATIONS: pain in L foot, ankle and LE, include low tib/fib please TECHNIQUE: 3 views of the ankle were acquired. COMPARISON: None. FINDINGS: Bones: Prior fixation of distal tibial shaft and medial malleolus is seen with surgical hardware in place. No gross hardware loosening or failure. Healing distal tibial shaft fracture is noted. No acute ankle fracture or dislocation. Ankle mortise is normally aligned. Subcutaneous appearing fractures involving the second and first metatarsal bases are seen. Osteopenia is also noted. No suspicious bony lesions. Soft tissues: No tibiotalar joint effusion. Achilles tendon appears normal. IMPRESSION: 1. Healing or healed distal tibial shaft fracture with prior internal fixation. No gross hardware complication. 2. No acute ankle fracture or dislocation. Subacute appearing first and second metatarsal base fractures. Ankle mortise is congruent. Osteopenia. Dictated by: Jon Braxton M.D. on 11/10/2019 at 13:38 Approved by: Jon Braxton M.D. on 11/10/2019 at 13:50 [facility] Narrative Medical decision making narrative: This is a 69 year female who presents to ED with left foot and ankle discomfort and swelling after she twisted the affected foot last night. Patient has intact sensation. Generalized edema to left dorsal foot. She is able to wiggle her toes but unable to plantar flex and dorsal extend affected foot ankle due to discomfort. The dorsal is pedal pulses intact on affected foot. To the foot x-ray, there is a suggestion of sub acute fracture involving 1st and 2nd metatarsal base with osteopenia and osteoarthritis. Affected foot has been splinted on short posterior leg splint and advised to use wheelchair for nonweightbearing. Patient provided with [facility] contact phone number to follow up. Return precautions were discussed with the patient and patient advised to use her own outpatient pain medications and to rest, ice and elevate affected foot for next 24 to 48 hours. Patient verbalized understanding and agreement with the treatment plan. Discharge Plan Departure Patient Disposition: Home Clinical Impression: Fracture of metatarsal of left foot, closed Qualifiers: Encounter type: initial encounter Metatarsal bone: unspecified metatarsal Fracture alignment: nondisplaced Qualified Code(s): S92.302A - Fracture of unspecified metatarsal bone(s), left foot, initial encounter for closed fracture Discharge Date/Time: 11/10/19 14:59 Instructions: DI for Foot Fracture Activity Restrictions/Additional Instructions: You have been diagnosed with [sub acute fractures involving 1st and 2nd metatarsal bases per x-ray test. There is no acute findings on ankle x-ray. According to x-ray test it shows osteopenia and osteoarthritis throughout mid and forefoot.]. What to do: *Take your medications as directed. Please continue to take your pain medication including oxycodone, Advil 400 mg up to 3 times a day as needed for discomfort with food. Please rest, use cool pack for next 2 days and elevate affected leg. *Follow up with your primary care provider in 2-3 days, call for an appointment. Please follow up with [facility] to follow up. Let them know you were seen in the ED and that we asked you to be seen in follow up. *Return to ED if you have any new, worsening, or concerning symptoms, such as [chest pain, breathing difficulty, unable to tolerate fluids, tingling/numbness/weakness to affected foot or any acute concerns]. Prescriptions: No Action metoprolol tartrate 25 MG tablet 25 mg PO BID Qty: 0 RF: 0 sucralfate 1 gram tablet 1 g PO QID RF: 0 oxycodone 5 mg tablet 10 mg PO Q3H RF: 0 oxycodone 5 mg capsule 5 mg PO Q6H PRN (Reason: pain) Qty: 10 RF: 0 pantoprazole 40 mg tablet,delayed release (DR/EC) 40 mg PO BID RF: 0 gabapentin 100 mg capsule 300 mg PO TID RF: 0 Referrals: [facility] [Provider Group] Luis Hernandez MD [Primary Care Provider] - <Collin Guzman DO - Last Filed: 11/10/19 15:27> [facility]: Dr Guzman Co-Sign Statement: I was available for consultation during this patient's emergency department visit. This chart is signed by myself for administrative purposes only. I did not have direct contact with this patient during this visit. They were seen independently by the APC.
[2019-11-10 14:57] VITALS: BP 160/76; PULSE 76; RESP 20; O2SAT 100
== END 2019-11-10 14:59 | disposition home or self-care (01) ==
PROVIDERS: Emergency Provider Nurse Practitioner Family; Family Provider Family Medicine; PCP Family Medicine
DX: S92.302A Fracture of unspecified metatarsal bone(s), left foot, initial encounter for closed fracture (principal); W18.40XA Slipping, tripping and stumbling without falling, unspecified, initial encounter
CPT/HCPCS: 29515; 73610; 73630; 99283

== ENCOUNTER → 2020-04-22 17:56 | Outpatient (CLI) | payer MEDICARE, MEDICAID, SELFPAY ==
[2018-09-19 00:19] VITALS: BMI 22.2
--- NOTE | 2020-04-22 | DI.MRI.S_ITS ---
PROCEDURE: MR THORACIC SPINE WO CON INDICATIONS: Wedge compression fracture of T11-T12 vertebra, choudhury TECHNIQUE: Noncontrast sagittal T1 spine echo and T2 fast spin echo, sagittal STIR, axial T1 and T2 fast spin echo through the thoracic spine. COMPARISON: [facility] [place], CR, XR LUMBAR SPINE 2 OR 3 VIEWS, 01/20/2020, 13:45. [facility], , MR LUMBAR SPINE WO CON, 04/22/2020, 18:54. FINDINGS: Image quality: Excellent. Alignment and Curvature: There is normal bony alignment. Bone Marrow: Marrow is of normal overall signal. Large Schmorl's nodesnoted in the central superior and inferior endplates of the T6 vertebral body. Chronic appearing T10 and T12 compression fractures noted. T10 compression deformity results in approximately 40% loss of normal anterior vertebral body height. The T12 compression deformity results in approximately 25% loss of normal anterior vertebral body height. No retropulsed fragments are kyphosis associated with either the T10 or T12 compression fractures. Spinal Cord: Visualized spinal cord is normal in size and signal. Paraspinous Soft Tissues: No paravertebral masses. Miscellaneous: Mild moderate degenerative disc changes noted throughout the thoracic spine. Mild facet hypertrophy noted throughout the thoracic spine. No central stenosis. No significant neural foraminal narrowing. No neural compression. On axial images, central canal and foramina appear widely patent at all scanned levels. IMPRESSION: 1. Chronic appearing T10 and T12 compression fractures. 2. Large T6 superior and inferior endplate Schmorl's nodes. 3. Multilevel degenerative disease. 4. Multilevel facet arthropathy. 5. No central stenosis. 6. No significant neural foraminal narrowing. 7. No neural compression. Dictated by: Idalia Guerrero MD, PhD on 04/26/2020 at 8:25 Approved by: Idalia Guerrero MD, PhD on 04/26/2020 at 9:13
--- NOTE | 2020-04-22 | DI.MRI.S_ITS ---
PROCEDURE: MR LUMBAR SPINE WO CON INDICATIONS: Wedge compression fracture of T11-T12 vertebra, choudhury TECHNIQUE: Noncontrast sagittal T1 spin echo and T2 fast echo, sagittal STIR, axial T1 and T2 fast spin echo through the lumbar spine. In cases with scoliosis, additional coronal T2 fast spin echo may be performed. COMPARISON: [facility], CT, CT LUMBAR SPINE WO CON, 05/23/2019, 16:41. [facility], CT, CT THORACIC SPINE WO CON, 05/23/2019, 16:41. [facility] [place], CR, XR LUMBAR SPINE 2 OR 3 VIEWS, 01/20/2020, 13:45. [facility] [place], CR, XR THORACIC SPINE 2 VIEWS, 01/20/2020, 13:41. FINDINGS: Image quality: Excellent. Alignment and Curvature: There is normal bony alignment. Bones: Transitional anatomy with sacralization of the L5 vertebral body noted. Chronic appearing T12, L1, L2, L3 and L4 compression fractures. L1 compression fracture has occurred in the interval since prior exam obtained May 23, 2019. The T12, L2, L3 and L4 compression fractures are stable compared to prior exams. No acute compression fractures identified. Postprocedural changes compatible with L1, L2, L3 and L4 percutaneous vertebroplasty are noted. Spinal Cord: Conus medullaris terminates at the L1 level. Visualized cord demonstrates normal signal and size. Paraspinous Soft Tissues: No paravertebral masses con bile duct is enlarged, not significantly changed in diameter compared to prior CT scan. L1-L2: Loss of disc signal. Mild, diffuse disc bulge. Mild bilateral facet hypertrophy. Mild narrowing of the central canal. Mild bilateral neural foraminal narrowing. No neural compression. L2-L3: Loss of disc signal. Mild, diffuse disc bulge. Mild bilateral facet hypertrophy. Mild narrowing of the central canal. Mild bilateral neural foraminal narrowing. No neural compression. L3-L4: Loss of disc signal. Mild, diffuse disc bulge. Mild bilateral facet hypertrophy. Mild to moderate narrowing of the central canal. Mild right and moderate to severe left neural foraminal narrowing with slight compression of the exiting left L3 nerve root. L4-L5: Loss of disc signal and slight loss of disc height. Moderate, diffuse disc bulge. Mild bilateral facet hypertrophy. Moderate narrowing of the central canal. Severe right and moderate left neural foraminal narrowing with marked compression of the exiting right L4 nerve root. L5-S1: Normal appearance. IMPRESSION: 1. 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 2. Chronic appearing T12, L1, L2, L3 and L4 compression fractures. Patient is status post L1, L2, L3 and L4 percutaneous vertebroplasty. 3. Multilevel degenerative disc disease. 4. Multilevel facet arthropathy. 5. Moderate L4-L5 central canal narrowing. 6. Severe right L4-L5 neural foraminal narrowing with marked compression of the exiting right L4 nerve root. Moderate to severe left L3-L4 neural foraminal narrowing with slight compression of the exiting left L3 nerve root. Dictated by: Idalia Guerrero MD, PhD on 04/26/2020 at 8:26 Approved by: Idalia Guerrero MD, PhD on 04/26/2020 at 9:22
== END ==
PROVIDERS: Family Provider Family Medicine; PCP Family Medicine; Referring Provider Orthopaedic Surgery; Visit Provider Orthopaedic Surgery
DX: S22.080D Wedge compression fracture of T11-T12 vertebra, subsequent encounter for fracture with routine healing (principal); M51.44 Schmorl's nodes, thoracic region; M51.34 Other intervertebral disc degeneration, thoracic region; M47.814 Spondylosis without myelopathy or radiculopathy, thoracic region; M51.36 Other intervertebral disc degeneration, lumbar region; M51.37 Other intervertebral disc degeneration, lumbosacral region; M47.816 Spondylosis without myelopathy or radiculopathy, lumbar region; M47.817 Spondylosis without myelopathy or radiculopathy, lumbosacral region; M48.061 Spinal stenosis, lumbar region without neurogenic claudication; M48.07 Spinal stenosis, lumbosacral region; M43.27 Fusion of spine, lumbosacral region
CPT/HCPCS: 72146; 72148

== ENCOUNTER → 2020-05-18 13:40 | Outpatient (CLI) | payer MEDICARE, MEDICAID, SELFPAY ==
[2020-05-18 13:18] VITALS: BMI 22.2
[2020-05-19 20:31] LABS: COVID19 Sendout Not Detected (Not Detect)
== END ==
PROVIDERS: PCP Family Medicine; Visit Provider Physician Assistant
DX: Z11.59 Encounter for screening for other viral diseases (principal)
CPT/HCPCS: 87635

== ENCOUNTER 2020-05-20 12:39 | Day surgery (SDC) | payer MEDICARE, MEDICAID, SELFPAY ==
[2018-09-19 00:19] VITALS: BMI 22.2
[2020-05-16 08:27] VITALS: BMI 19.3
[2020-05-18 13:18] VITALS: BMI 22.2
[2020-05-20] VITALS (8 sets, daily range): BP systolic 96–114; BP diastolic 57–68; PULSE 72–77; RESP 12–16; TEMP 36.7–37.3; O2SAT 93–98; BMI 19.3
--- NOTE | 2020-05-20 | DI.RAD.S_ITS ---
PROCEDURE: XR ANKLE LT MIN 3V INDICATIONS: FIBULA FX TECHNIQUE: 3 views of the ankle were acquired. COMPARISON: [facility], CR, XR ANKLE LT MIN 3V, 11/10/2019, 13:12. [facility], RG, TIBIA/FIBULA 2VW (LT), 02/07/2020, 10:07. FINDINGS: Intraoperative ORIF of the distal tibia and fibula are identified with interval fibular fixation. Hardware appears intact. There is good anatomic alignment. IMPRESSION: Intraoperative ORIF of the distal fibula as above. Dictated by: Nikia Nolasco M.D. on 05/20/2020 at 16:17 Approved by: Nikia Nolasco M.D. on 05/20/2020 at 16:18
[2020-05-20] MEDS: LACTATED RINGERS 1,000 ML 42 ML IV (13:29)
--- NOTE | 2020-05-20 14:02 | P.OP_ITS ---
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 She was treated conservatively however fracture went onto nonunion and displaced. She has been indicated for open reduction internal fixation additionally there poor bone quality and the nonunion she is indicated for a bone graft. We discussed iliac crest aspirate and dowel graft and to aid healing potential. Patient understands and agrees with the plan. The risks and benefits of the procedure have been discussed with the patient even opportunity to ask questions. The risks of surgery include but are not limited to infection, malunion, nonunion, persistence of pain, damage to nerves and blood vessels, posttraumatic arthritis, DVT, PE, cardiopulmonary complications and . The patient expressed a thorough understanding of the risks and benefits of surgery and has elected to proceed. Consent was signed. Surgeon: Marilou Carpio Click Yes if Unassisted: Yes Anesthesia Type: General and Local Operative Notes Findings: Distal fibula nonunion. Closure Type: primary Specimen(s): none sent Prosthetic devices, grafts, tissues, transplants, or devices: Arthrex lateral fibula hook plate Estimated Blood Loss (mL): 5 Blood products transfused: none Tourniquet time (min): 59 Procedure in detail: Patient was seen in the preoperative area the site of surgery marked informed consent confirmed. The patient was brought back to the operating room and placed supine on operative table. A regional anesthetic block was performed by the anesthesia team for postoperative pain control. All bony prominences well padded. Ipsilateral thigh bump was placed. Well- padded thigh tourniquet was placed. An SCD was worn on the contralateral lower extremity. Formal time-out procedure was performed confirming the patient's side and site of surgery administration of appropriate preoperative antibiotics and presence a informed consent. Attention was turned to the left lower extremity. Esmarch was utilized for exsanguination the tourniquet recent thigh to 250 mm of mercury and stayed of 59 minutes. Incision was made laterally along the distal fibula. This taken down to the skin right to the periosteum. Periosteum was elevated. The right distal fibula nonunion was apparent and mobile. There was some soft callus around this that was debrided using a rongeur and curette and a knife. This was easily removed and there was gross motion. The nonunion was debrided and curetted and then drilled with a 2 0 drill for bleeding bone edges. Once this was completed attention was turned to obtaining the iliac crest bone graft. The anterior iliac crest was palpated. The [employer] needle was utilized to obtain the crest aspirate. A small stab incision was made in the skin and the trocar was introduced to the bone. This was tapped down into the bone trocar was removed and small aliquot 2 cc aliquots of bone marrow aspirate were obtained. Additionally the trocar was advanced without the stylet to obtain several dowel iliac crest cancellous autograft. This was mixed with the aspirate. Once a adequate amount was obtained the incision was closed with 1 nylon suture. Attention was returned to the left fibula the nonunion site was exposed the iliac crest aspirate and graft was placed within the fracture site and this was reduced and held with a pointed reduction clamp. A lateral hook plate from the Arthrex set was selected due to the old and distal transverse nature of the fracture and due to the patient's bone quality was not thought that a adequate lag screw could be obtained across this and the hook plate would applied good compression. The hook plate was inter introduced to the distal fibula and tamped down to reduce prominence. Next the 3 5 cortical compression screws placed in the oblong hole obtaining excellent compression. At this was supplemented next by the 4 0 cancellous screw from the distal end of the hook plate. Once this was in place 2 additional locking 2 7 screws were placed distally followed by a 3 5 cortical screw proximally. An additional 3 5 cortical screw proximally was placed this was grossly loose exchanged for a locking cortical screw. Final x- rays were obtained in AP mortise and lateral planes demonstrating appropriate placement of hardware and reduction of fracture. The fracture was stressed under live fluoro there was no opening of the mortise. And it was not felt that the posterior screw from the tibia interfered with the reduction of therefore no additional hardware removal was necessary. The wound was irrigated then the remainder of the at aspirate was placed around the plate at the level of the fracture. Deep tissues were closed with 2 O Vicryl followed by 4 0 Monocryl in the subcutaneous tissue and and 3 O nylon in the skin. The tourniquet was released during closure and hemostasis was achieved. A sterile dressing was placed with Xeroform gauze Webril stirrup splint and an Albaro wrap. The patient was woken from anesthesia and taken to the recovery room in good condition. There no immediate complications from this procedure. Complications: none Post-operative Condition: stable Disposition: PACU Plan for aftercare: She may be weightbear as tolerated on the left lower extremity however we discussed limited weight-bearing for the 1st 2 weeks. Then will remove the splint and she will go back into her at home a AFO brace and may weightbear more that time. She will keep the splint clean dry and intact.
--- NOTE | 2020-05-20 14:02 | PM.PREOP ---
Pre-operative Note COVID-19 COVID-19 status: Negative Interval Note History & Physical reviewed/Exam performed by Physician: Yes Changes to H&P: No
[2020-05-20] MEDS: MIDAZOLAM 2 MG/2 ML VIAL IV (14:07)
[2020-05-20] MEDS: CEFAZOLIN 2 GM/100 ML FROZ.PIGGY IV (14:22)
--- NOTE | 2020-05-20 14:22 | SUR.PREOP ---
Block start time [1410] . Monitoring initiated and maintained throughout procedure. Oxygen and medications given per anesthesiologist instructions. Patient remained stable throughout procedure, no adverse reactions noted. Block end time [1421].
--- NOTE | 2020-05-20 14:52 | SUR.OPER ---
Supine on padded OR bed, head on pillow, arms secured on padded arm boards at <90 degrees abduction, blanket bump under left hip, legs uncrossed, safety belt at thigh, tape over blanket over right lower leg, left leg on blanket bumps and prepped into field.
[2020-05-20] MEDS: OXYCODONE/ACETAMINOPHEN 5/325 TABLET 1 TAB PO (16:27)
== END 2020-05-20 17:00 | disposition home or self-care (01) ==
PROVIDERS: PCP Family Medicine; Referring Provider Family Medicine; Visit Provider Orthopaedic Surgery Foot and Ankle Surgery
PROC: (CPT 20900; principal; 2020-05-20 14:30)
DX: S82.62XG Displaced fracture of lateral malleolus of left fibula, subsequent encounter for closed fracture with delayed healing (principal); M79.7 Fibromyalgia; G43.909 Migraine, unspecified, not intractable, without status migrainosus; G62.9 Polyneuropathy, unspecified
CPT/HCPCS: 20900; 27792; 73610; 76000; J0690; J1100; J2250; J2405; J2704

== ENCOUNTER → 2020-09-15 13:22 | Outpatient (CLI) | payer MEDICARE, MEDICAID, SELFPAY ==
[2020-05-18 13:18] VITALS: BMI 22.2
--- NOTE | 2020-09-15 | DI.MRI.S_ITS ---
PROCEDURE: MR LUMBAR SPINE WO CON INDICATIONS: Lumbago with sciatica, left side TECHNIQUE: Noncontrast sagittal T1 spin echo and T2 fast echo, sagittal STIR, axial T1 and T2 fast spin echo through the lumbar spine. In cases with scoliosis, additional coronal T2 fast spin echo may be performed. COMPARISON: [facility], CR, XR LUMBAR SPINE 2 OR 3 VIEWS, 09/09/2020, 14:53. [facility], , MR LUMBAR SPINE WO CON, 04/22/2020, 18:54. [facility], CR, XR LUMBAR SPINE 2 OR 3 VIEWS, 01/20/2020, 13:45. FINDINGS: Image quality: Excellent. Alignment and Curvature: There is normal bony alignment. Bones: Transitional anatomy with sacralization of the L5 vertebral body. Postprocedural changes compatible with L1, L2, L3 and L4 percutaneous vertebroplasty. Marrow is of normal overall signal. Chronic T12, L1, L2, L3 and L4 vertebral body compression deformities. No acute vertebral body compression fractures. Spinal Cord: Conus medullaris terminates at the L1 level. Visualized cord demonstrates normal signal and size. Paraspinous Soft Tissues: No paravertebral masses. Left kidney has heterogeneous signal intensity concerning for infiltrate and renal mass. T12-L1: Loss of disc signal. Bilateral facet hypertrophy. No central stenosis. Moderate bilateral neural foraminal narrowing. No neural compression. L1-L2: Loss of disc signal. Mild, diffuse disc bulge. Bilateral facet hypertrophy. Mild narrowing of the central canal. Moderate bilateral neural foraminal narrowing. No neural compression. L2-L3: Loss of disc signal. Mild, diffuse disc bulge. Bilateral facet hypertrophy. Mild to moderate narrowing of the central canal. Mild bilateral neural foraminal narrowing. No neural compression. L3-L4: Loss of disc signal. Mild, diffuse disc bulge. Bilateral facet hypertrophy. Mild to moderate narrowing of the central canal. Mild right and moderate left neural foraminal narrowing. No neural compression. L4-L5: Loss of disc signal and slight loss of disc height. Moderate, diffuse disc bulge. Moderate facet and moderate ligamentum flavum hypertrophy. Moderate narrowing of the central canal. Severe right and moderate left neural foraminal narrowing with compression of the exiting right L4 nerve root. L5-S1: Loss of disc signal. Mild bilateral facet hypertrophy. No central stenosis. No neural foraminal narrowing. No neural compression. IMPRESSION: 1. 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 2. Chronic T12, L1, L2, L3 and L4 compression fractures. No acute compression fracture. 3. Status post L1, L2, L3 and L4 percutaneous vertebroplasty. 4. Multilevel degenerative disc disease. 5. Multilevel facet arthropathy. 6. Moderate L4-L5 central canal narrowing. 7. Severe right L4-L5 neural foraminal narrowing with compression of the exiting right L4 nerve root. Dictated by: Idalia Guerrero MD, PhD on 09/15/2020 at 16:22 Approved by: Idalia Guerrero MD, PhD on 09/15/2020 at 16:46
== END ==
PROVIDERS: PCP Family Medicine; Referring Provider Orthopaedic Surgery; Visit Provider Orthopaedic Surgery
DX: M54.42 Lumbago with sciatica, left side (principal); M43.27 Fusion of spine, lumbosacral region; M51.36 Other intervertebral disc degeneration, lumbar region; M47.816 Spondylosis without myelopathy or radiculopathy, lumbar region; M47.817 Spondylosis without myelopathy or radiculopathy, lumbosacral region; M48.061 Spinal stenosis, lumbar region without neurogenic claudication; M48.54XS Collapsed vertebra, not elsewhere classified, thoracic region, sequela of fracture; M48.56XS Collapsed vertebra, not elsewhere classified, lumbar region, sequela of fracture
CPT/HCPCS: 72148

== ENCOUNTER 2020-10-07 10:35 | Emergency (ER) | payer MEDICARE, MEDICAID, SELFPAY ==
[2020-05-18 13:18] VITALS: BMI 22.2
[2020-10-07 10:35] VITALS: BP 103/63; PULSE 110; RESP 15; TEMP 37.6; O2SAT 97; BMI 19.4
[2020-10-07 10:40] VITALS: PULSE 112; O2SAT 100
--- NOTE | 2020-10-07 10:46 | DI.CT.S_ITS ---
PROCEDURE: CT HEAD/BRAIN WO CON INDICATIONS: syncope TECHNIQUE: Noncontrast 4.5 mm thick angled axial sections acquired from the foramen magnum to the vertex, with coronal and sagittal reformats. For radiation dose reduction, the following was used: automated exposure control, adjustment of mA and/or kV according to patient size. COMPARISON: [facility], CT, CT HEAD/BRAIN WO CON, 09/18/2018, 21:33. [facility], CT, CT HEAD/BRAIN WO CON, 07/29/2018, 18:41. [facility], CT, CT HEAD/BRAIN WO CON, 07/14/2018, 16:31. [facility], CT, CT HEAD/BRAIN WO CON, 02/27/2018, 13:39. [facility], CT, BRAIN W/O CONTRAST, 10/22/2014, 13:46. [facility], CT, CT HEAD/BRAIN WO CON, 11/07/2018, 18:26. FINDINGS: Image quality: Excellent. CSF spaces: Basal cisterns are patent. No extra-axial fluid collections. The ventricles are symmetric in size and shape. Brain: No intracranial bleeds or masses. There is cerebral volume loss for age, with resultant ventricular and sulcal prominence. There are periventricular and deep white matter chronic small vessel ischemic changes. There is intracranial internal carotid artery atherosclerosis. Skull and face: Calvarium and visualized facial bones appear intact, without suspicious lesions. Sinuses: The visualized right maxillary sinus demonstrates complete opacification. Milder mucosal thickening is seen elsewhere within the paranasal sinuses. No abnormal fluid is seen within the mastoid air cells. IMPRESSION: No imaging explanation is found for this patient's presenting symptoms. Note is made of age-appropriate brain parenchymal volume loss and chronic small vessel ischemic changes. Focal opacification seen of the right maxillary sinus, with milder sinus disease seen elsewhere. Dictated by: Darwin Long M.D. on 10/07/2020 at 10:15 Approved by: Darwin Long M.D. on 10/07/2020 at 10:17
--- NOTE | 2020-10-07 10:46 | DI.MRI.S_ITS ---
PROCEDURE: MR LUMBAR SPINE WO/W CON INDICATIONS: leg weakness after injections TECHNIQUE: Noncontrast sagittal T1 spin echo and T2 fast spin echo, sagittal STIR, axial T1 and T2 fast spin echo through the lumbar spine. In cases with scoliosis, additional coronal T2 fast spin echo may be performed. After the administration of contrast, sagittal and axial T1 spin echo with fat saturation through the lumbar spine. COMPARISON: [facility], CT, CT LUMBAR SPINE WO CON, 05/23/2019, 16:41. [facility], CT, CT ABDOMEN PELVIS W CON, 11/07/2018, 18:26. FINDINGS: Image quality: Excellent. Alignment and curvature: Trace degenerative anterolisthesis of L1 on L2. Marrow: Marrow is of normal overall signal. No acute vertebral body compression fractures. Evidence of multilevel percutaneous cement fixation of L1, L2, L3, and L4. There is a chronic mild compression of T12. There is no findings suspicious for discitis/osteomyelitis. There is air present in the disc space of L4-L5. There is cement present in disc space of L3-L4. These findings are incidental. No suspicious marrow enhancement. Spinal cord: Conus medullaris terminates at the T12-L1 level. Visualized spinal cord demonstrates normal signal, without suspicious enhancement. Paraspinous soft tissues: No paravertebral masses or abnormal enhancement. Left kidney is somewhat small and shrunken and contains multiple relatively central low signal areas which correspond to large stones present on the previous CT scan. T11-T12: No canal stenosis or foraminal stenosis. T12-L1: No canal stenosis or foraminal stenosis. L1-L2: Disc bulge. No canal stenosis or significant foraminal stenosis. L2-L3: Disc bulge. Borderline canal stenosis. Mild facet and ligament hypertrophy. Mild bilateral foraminal disc bulges. No significant foraminal narrowing. L3-L4: Mild posterior disc bulge. Mild facet and ligament hypertrophy. No significant central canal stenosis. Mild left foraminal disc protrusion, present on the previous CT, with mild flattening deformity on the exiting left L3 nerve root. L4-L5: Unchanged central posterior disc protrusion. Facet and ligament hypertrophy. Mild canal stenosis. Moderate to severe right foraminal narrowing with impingement on the exiting right L4 nerve root. Mild to moderate left foraminal narrowing. L5-S1: No canal stenosis or foraminal stenosis. IMPRESSION: 1. Severe osteoporosis with numerous chronic compression fractures, 4 of which have been treated with percutaneous cement in the past. 2. No acute compression fracture. 3. No evidence of acute discitis or osteomyelitis. 4. Multilevel degenerative change. Findings include mild canal stenosis at L4-L5, as well as multilevel foraminal narrowing, moderate to severe on the right at L4-L5. 5. Somewhat small and shrunken left kidney with multiple stones, better seen on CT. Dictated by: David Landers M.D. on 10/07/2020 at 12:08 Approved by: David Landers M.D. on 10/07/2020 at 12:22
--- NOTE | 2020-10-07 10:50 | ED.WEAKNESS ---
HPI - Weakness General Chief complaint: Weakness Stated complaint: Weakness, +orthostatics Time Seen by Provider: 10/07/20 10:45 Source: patient Mode of arrival: EMS Limitations: no limitations History of Present Illness HPI Narrative: Patient is a 69-year-old female with history of vasovagal syndrome and chronic ongoing back pain. Presents today after syncopal episode worsening back pain after injections. She had back injections 4 days ago. She says she asked the provider who was injecting her back to stop because she felt like her pain was getting worse. She says since the injections she had 3 that day she feels like her legs are rubber and she is overall weak. This morning she stood up to walk to the restroom when she blacked out and fell to the floor. EMS reports her as being orthostatic. According to our records this has happened to her in the past. She is complaining of worsening back pain of an 8 or 9. She is able to move and lift her legs and transfer herself to the gurney without significant pain or assistance. She has caregivers at home. She denies any chest pain heart palpitations Related Data Home Medications Medication Instructions Recorded Confirmed metoprolol tartrate 25 mg PO BID #0 04/24/17 05/20/20 gabapentin 300 mg PO TID 11/07/18 05/20/20 pantoprazole 40 mg PO BID 11/07/18 05/20/20 sucralfate 1 g PO QID 01/14/19 05/20/20 Previous Rx's Medication Instructions Recorded oxycodone-acetaminophen [Percocet] 1 tab PO Q4H PRN #42 tab 05/20/20 cephalexin [Keflex] 500 mg PO BID #10 cap 10/07/20 Allergies Allergy/AdvReac Type Severity Reaction Status Date / Time tramadol [TRAMADOL] Allergy Unknown Verified 10/07/20 10:43 amitriptyline [AMITRIPTYLINE] AdvReac Intermediate Confusion Verified 10/07/20 10:43 Review of Systems Review of Systems ROS Unobtainable: All systems reviewed & are unremarkable except as noted in HPI and below Constitutional Constitutional: Denies chills, Reports fatigue, Denies fever(s), Denies lethargy and Reports weakness Cardiovascular Cardiovascular: Denies chest pain, Denies irregular heart rhythm, Denies lightheadedness, Denies palpitations and Denies orthopnea Gastrointestinal Gastrointestinal: Denies abdominal pain, Denies change in bowel habits, Denies diarrhea, Denies nausea and Denies vomiting Genitourinary Genitourinary: Denies dysuria and Denies urinary incontinence Genitourinary: Denies dysuria and Denies urinary incontinence Integumentary/Breasts Skin/Breast: Denies pruritus, Denies erythema, Denies rash and Denies wounds Neurologic Neurologic: Denies confusion, Denies localized weakness, Denies memory loss and Reports weakness Psychiatric Psychiatric: Denies confusion and Denies memory loss Endocrine Endocrine: Reports fatigue and Denies palpitations Patient History Medical History Anxiety Arthritis C. difficile colitis Chronic pain Colitis Compression fracture of L1 vertebra (~07/2019) COPD (chronic obstructive pulmonary disease) Depression DJD (degenerative joint disease) Fibromyalgia Fracture, tibia GI bleeding History of recurrent UTIs HLD (hyperlipidemia) Hypertension Insomnia Left foot drop Lumbar compression fracture (02/26/19) Migraines Multiple fractures Neuropathy Numbness and tingling Osteoporosis Radius fracture (08/30/17) Renal disease Surgical History H/O: hysterectomy History of surgery Hx of appendectomy Hx of cholecystectomy Hx of elbow surgery Hx of kyphoplasty (~2013) Hx of kyphoplasty (04/28/19) Hx of kyphoplasty (07/28/19) Hx of tonsillectomy Status post epidural steroid injection (03/25/19) Family History Mother No known health problems Father No known health problems Social History household members: significant other Smoking Status: Former smoker alcohol intake: never Smoking Status: Former smoker alcohol intake frequency: holidays/special occasions only Substance Use Type: does not use and former substance user Exam Initial Vital Signs Initial Vital Signs: Vital Signs Temperature 99.6 F 10/07/20 10:35 Pulse Rate 110 H 10/07/20 10:35 Respiratory Rate 15 10/07/20 10:35 Blood Pressure 103/63 10/07/20 10:35 Pulse Oximetry 97 10/07/20 10:35 GENERAL: Alert 69-year-old female appears older than stated age and in no acute distress. HEENT: Head atraumatic,EOMI, pupils reactive, face symmetric, moist mucous membranes CARDIOVASCULAR: Regular rate and rhythm without murmurs, rubs or gallops. RESPIRATORY: Breath sounds equal bilaterally, no wheezes rales or rhonchi. ABDOMEN: Soft, nontender. Normoactive bowel sounds all 4 quadrants. No guarding or rebound. BACK: No vertebral tenderness no step-off no erythema she is tender and right lumbar area EXTREMITIES: Normal range of motion, no clubbing or edema. Neurovascularly intact NEUROLOGICAL: Alert and oriented x4.Normal gait and speech. Able to lift legs very easily strength in lower extremities is 5/5 SKIN: Warm, dry, no laceration, no petechiae, no rashes or lesions. Course Orders Ordered: ED Orders 10/07/20 10:46 CT head/brain wo con Stat MR lumbar spine wo/w con Stat EKG-12 Lead Stat 10/07/20 11:00 Complete Blood Count AUTO DIFF Stat Comprehensive Metabolic Panel Stat Troponin & CK Cardiac Panel Stat 10/07/20 13:17 Urinalysis and Microscopic Stat Urine Culture Stat Discontinued Medications Sodium Chloride (Normal Saline 0.9%) 1,000 mls @ 1,000 mls/hr IV CONT LACY Last Infusion: 10/07/20 14:47 Dose: 0 mls/hr Documented by: Admin: 10/07/20 10:55 Dose: 1,000 mls/hr Documented by: ESTER Lorazepam (Lorazepam 2 Mg/Ml Inj) 1 mg IV NOW ONE Stop: 10/07/20 10:53 Last Admin: 10/07/20 11:04 Dose: 1 mg Documented by: ESTER Lorazepam (Lorazepam 2 Mg/Ml Inj) 1 mg IV NOW ONE Stop: 10/07/20 11:23 Last Admin: 10/07/20 11:25 Dose: 1 mg Documented by: CHRISTIANE Vital Signs Vital signs: Vital Signs - 8 hr 10/07/20 15:00 Pulse Rate 104 H Blood Pressure 117/64 Pulse Oximetry 100 MDM - Weakness Lab Data Attestation: I reviewed the patient's lab results. Result diagrams: 10/07/20 11:00 10/07/20 11:00 Labs: Lab Results 10/07/20 10/07/20 10/07/20 Range/Units 11:00 11:00 13:17 WBC 24.8 H (4.5-11.0) X10^3/uL RBC 3.11 L (4.0-5.2) X10^6/uL Hgb 9.0 L (12.0-16.0) g/dL Hct 28.0 L (36-46) % MCV 90.1 (80-100) fL MCH 29.1 (26-34) PG MCHC 32.2 (30-36) % RDW 16.2 H (11.6-14.8) % Plt Count 854 H (150-400) X10^3/uL Neut % (Auto) 88.1 H (50-75) % Lymph % (Auto) 7.0 L (25-40) % Will % (Auto) 4.5 (3-14) % Eos % (Auto) 0.1 L (2-4) % Baso % (Auto) 0.3 (0-2) % Neut # (Auto) 52249 H (2102-8261) /uL Lymph # (Auto) 1700 (5210-1403) /uL Will # (Auto) 1100 H (0-900) /uL Eos # (Auto) 0 (0-450) /uL Baso # (Auto) 100 (0-100) /uL Clumped Platelets 1 Plt Morphology Comment Giant RBC Morphology Not Reportable Sodium 127 L (137-145) mmol/L Potassium 5.6 H (3.4-5.1) mmol/L Chloride 99 (98-107) mmol/L Carbon Dioxide 21 L (22-32) mmol/L BUN 43 H (7-17) mg/dL Creatinine 1.83 H (0.52-1.04) mg/dL Estimated GFR 27.5 L (>60) mL/min BUN/Creatinine Ratio 23.5 H (6-22) Glucose 129 H (80-110) mg/dL Calcium 8.7 (8.4-10.2) mg/dL Total Bilirubin 0.5 (0.2-1.3) mg/dL AST 42 H (14-36) IU/L ALT 18 (<35) IU/L Alkaline Phosphatase 281 H (38-126) U/L Total Creatine Kinase 27 L (30-135) U/L CK-MB (CK-2) TNP CK-MB (CK-2) Rel Index TNP Troponin I < 0.012 (0.01-0.034) ng/mL Total Protein 7.6 (6.3-8.2) g/dL Albumin 3.8 (3.5-5.0) g/dL Globulin 3.8 (1.7-4.1) g/dL Albumin/Globulin Ratio 1.0 (1.0-2.8) Urine Color Yellow Urine Appearance Sl cloudy Urine pH 6.0 (4.5-8.0) Ur Specific [place] <=1.005 (1.000-1.035) Urine Protein 1+ H (Negative) Urine Glucose (UA) Negative (Negative) g/dL Urine Ketones Negative (NEGATIVE) Urine Occult Blood Negative (Negative) Urine Nitrate Negative (Negative) Urine Bilirubin Negative (NEGATIVE) Urine Urobilinogen 0.2 (0.2) E.U./dL Ur Leukocyte Esterase 2+ H (NEGATIVE) Urine RBC None seen (0-5/HPF) Urine WBC 10-30/hpf H (0-5/HPF) Ur Squamous Epith Cells 0-1 /hpf (0-5/HPF) Urine Bacteria Many (>30) H (None) Ur Culture Indicated? Specimen cultured Micro UA Comment Imaging Data MR lumbar: Radiologist Impression: PROCEDURE: MR LUMBAR SPINE WO/W CON INDICATIONS: leg weakness after injections TECHNIQUE: Noncontrast sagittal T1 spin echo and T2 fast spin echo, sagittal STIR, axial T1 and T2 fast spin echo through the lumbar spine. In cases with scoliosis, additional coronal T2 fast spin echo may be performed. After the administration of contrast, sagittal and axial T1 spin echo with fat saturation through the lumbar spine. COMPARISON: [facility], CT, CT LUMBAR SPINE WO CON, 05/23/2019, 16:41. [facility], CT, CT ABDOMEN PELVIS W CON, 11/07/2018, 18:26. FINDINGS: Image quality: Excellent. Alignment and curvature: Trace degenerative anterolisthesis of L1 on L2. Marrow: Marrow is of normal overall signal. No acute vertebral body compression fractures. Evidence of multilevel percutaneous cement fixation of L1, L2, L3, and L4. There is a chronic mild compression of T12. There is no findings suspicious for discitis/osteomyelitis. There is air present in the disc space of L4-L5. There is cement present in disc space of L3-L4. These findings are incidental. No suspicious marrow enhancement. Spinal cord: Conus medullaris terminates at the T12-L1 level. Visualized spinal cord demonstrates normal signal, without suspicious enhancement. Paraspinous soft tissues: No paravertebral masses or abnormal enhancement. Left kidney is somewhat small and shrunken and contains multiple relatively central low signal areas which correspond to large stones present on the previous CT scan. T11-T12: No canal stenosis or foraminal stenosis. T12-L1: No canal stenosis or foraminal stenosis. L1-L2: Disc bulge. No canal stenosis or significant foraminal stenosis. L2-L3: Disc bulge. Borderline canal stenosis. Mild facet and ligament hypertrophy. Mild bilateral foraminal disc bulges. No significant foraminal narrowing. L3-L4: Mild posterior disc bulge. Mild facet and ligament hypertrophy. No significant central canal stenosis. Mild left foraminal disc protrusion, present on the previous CT, with mild flattening deformity on the exiting left L3 nerve root. L4-L5: Unchanged central posterior disc protrusion. Facet and ligament hypertrophy. Mild canal stenosis. Moderate to severe right foraminal narrowing with impingement on the exiting right L4 nerve root. Mild to moderate left foraminal narrowing. L5-S1: No canal stenosis or foraminal stenosis. IMPRESSION: 1. Severe osteoporosis with numerous chronic compression fractures, 4 of which have been treated with percutaneous cement in the past. 2. No acute compression fracture. 3. No evidence of acute discitis or osteomyelitis. 4. Multilevel degenerative change. Findings include mild canal stenosis at L4-L5, as well as multilevel foraminal narrowing, moderate to severe on the right at L4-L5. 5. Somewhat small and shrunken left kidney with multiple stones, better seen on CT. Dictated by: David Landers M.D. on 10/07/2020 at 12:08 CT scan - head: Radiologist Impression: PROCEDURE: CT HEAD/BRAIN WO CON INDICATIONS: syncope TECHNIQUE: Noncontrast 4.5 mm thick angled axial sections acquired from the foramen magnum to the vertex, with coronal and sagittal reformats. For radiation dose reduction, the following was used: automated exposure control, adjustment of mA and/or kV according to patient size. COMPARISON: [facility], CT, CT HEAD/BRAIN WO CON, 09/18/2018, 21:33. [facility], CT, CT HEAD/BRAIN WO CON, 07/29/2018, 18:41. [facility], CT, CT HEAD/BRAIN WO CON, 07/14/2018, 16:31. [facility], CT, CT HEAD/BRAIN WO CON, 02/27/2018, 13:39. [facility], CT, BRAIN W/O CONTRAST, 10/22/2014, 13:46. [facility], CT, CT HEAD/BRAIN WO CON, 11/07/2018, 18:26. FINDINGS: Image quality: Excellent. CSF spaces: Basal cisterns are patent. No extra-axial fluid collections. The ventricles are symmetric in size and shape. Brain: No intracranial bleeds or masses. There is cerebral volume loss for age, with resultant ventricular and sulcal prominence. There are periventricular and deep white matter chronic small vessel ischemic changes. There is intracranial internal carotid artery atherosclerosis. Skull and face: Calvarium and visualized facial bones appear intact, without suspicious lesions. Sinuses: The visualized right maxillary sinus demonstrates complete opacification. Milder mucosal thickening is seen elsewhere within the paranasal sinuses. No abnormal fluid is seen within the mastoid air cells. IMPRESSION: No imaging explanation is found for this patient's presenting symptoms. Note is made of age-appropriate brain parenchymal volume loss and chronic small vessel ischemic changes. Focal opacification seen of the right maxillary sinus, with milder sinus disease seen elsewhere. Dictated by: Darwin Long M.D. on 10/07/2020 at 10:15 ECG Data Attestation: I personally reviewed and interpreted this ECG as follows: MDM Narrative Medical decision making narrative: Patient had MRI of lumbar spine make sure there were no complications from spinal injection. She is found have leukocytosis of 24,000 with a mild UTI. She has had hyponatremia in the past and creatinine is about at baseline. She is also slightly anemic but has had low hemoglobin in the past hemoglobin today is 9.0 does not meet criteria for transfusion. Patient has been ambulatory in the ED although she still feels weak. She is afebrile she overall appears well. Difficult to discern if leukocytosis is from infection verses recent syncopal episode versus a recent glucocorticoid injections. Patient denies any fever. She does have a history of frequent UTIs she does have some painful urination occasionally. At this time she feels comfortable going home Discharge Plan Departure Patient Disposition: Home Clinical Impression: Syncope, vasovagal, Anemia, Acute UTI, Acute hyponatremia Instructions: DI for Orthostatic Hypotension Activity Restrictions/Additional Instructions: *You have been diagnosed with and weakness, UTI low sodium, anemia *What to do: At this time he may have a mild bladder infection, you will need to have your sodium and WBC recheck by her primary care provider next week MRI today does not show any abnormality or complication from the procedure you just had *Continue to take medications as directed Keflex 500 mg twice a day for 5 days--> SENT TO [facility] *Follow up with your primary care provider in 2-3 days *Return to ER if you should have increasing weakness, fever, confusion, inability to walk or any new, worsening or concerning symptoms Prescriptions: New cephalexin [Keflex] 500 mg capsule 500 mg PO BID Qty: 10 RF: 0 No Action metoprolol tartrate 25 MG tablet 25 mg PO BID Qty: 0 RF: 0 sucralfate 1 gram tablet 1 g PO QID RF: 0 oxycodone-acetaminophen [Percocet] 5-325 mg tablet 1 tab PO Q4H PRN (Reason: pain) Qty: 42 RF: 0 pantoprazole 40 mg tablet,delayed release (DR/EC) 40 mg PO BID RF: 0 gabapentin 100 mg capsule 300 mg PO TID RF: 0 Referrals: Luis Hernandez MD [Primary Care Provider] -
[2020-10-07] MEDS: SODIUM CHLORIDE 0.9% 1,000 ML 1000 ML IV (10:55)
[2020-10-07] MEDS: LORazepam 2 MG/ML INJ 1 MG IV ×2 (11:04→11:25)
[2020-10-07 11:18] LABS: Add Manual Diff / Slide Review NO; Basophils Absolute Auto 100 /uL (0-100); Basophils Percent Auto 0.3 % (0-2); Eosinophils Absolute Auto 0 /uL (0-450); Eosinophils Percent Auto 0.1 % (2-4); Lymphocytes Absolute Auto 1700 /uL (1100-4500); Mean Corpuscular HGB Conc 32.2 % (30-36); Mean Corpuscular Hemoglobin 29.1 PG (26-34); Mean Corpuscular Volume 90.1 fL (80-100); Monocytes Absolute Auto 1100 /uL (0-900); Monocytes Percent Auto 4.5 % (3-14); Neutrophils Absolute Auto 21800 /uL (1500-7000); Neutrophils Percent Auto 88.1 % (50-75); Platelet Count 854 X10^3/uL (150-400); Red Blood Cell Count 3.11 X10^6/uL (4.0-5.2); Red Cell Distribution Width 16.2 % (11.6-14.8); White Blood Cell Count 24.8 X10^3/uL (4.5-11.0)
[2020-10-07 11:22] LABS: Alanine Aminotransferase 18 IU/L (<35); Albumin 3.8 g/dL (3.5-5.0); Alkaline Phosphatase 281 U/L (38-126); Aspartate Aminotransferase 42 IU/L (14-36); BUN Creatinine Ratio 23.5 (6-22); Bilirubin Total 0.5 mg/dL (0.2-1.3); Blood Urea Nitrogen 43 mg/dL (7-17); Calcium 8.7 mg/dL (8.4-10.2); Carbon Dioxide 21 mmol/L (22-32); Chloride 99 mmol/L (98-107); Creatine Kinase 27 U/L (30-135); Estimated Glomerular Filt Rate 27.5 mL/min (>60); Globulin 3.8 g/dL (1.7-4.1); Glucose 129 mg/dL (80-110); Sodium 127 mmol/L (137-145); Total Protein 7.6 g/dL (6.3-8.2)
[2020-10-07 11:25] LABS: HEMOLYSIS 104 (0-50); Potassium 5.6 mmol/L (3.4-5.1)
[2020-10-07 11:31] LABS: Platelet Clumps 1; Platelet Morphology Comment GIANT
[2020-10-07 11:34] LABS: Troponin I < 0.012 ng/mL (0.01-0.034)
[2020-10-07 13:27] LABS: Appearance Urine UA SL CLOUDY; Bilirubin Urine UA NEGATIVE (NEGATIVE); Color Urine UA YELLOW; Glucose Urine UA NEGATIVE (Negative); Ketones Urine UA NEGATIVE (NEGATIVE); Leukocyte Esterase Urine UA 2+ (NEGATIVE); Nitrite Urine UA NEGATIVE (Negative); Occult Blood Urine UA NEGATIVE (Negative); Protein Urine UA 1+ (Negative); Specific Gravity Urine UA <=1.005 (1.000-1.035); Urobilinogen Urine UA 0.2 E.U./dL (0.2)
[2020-10-07 13:33] LABS: Bacteria Urine Many (>30); RBC Urine None Seen (0-5/HPF); Squamous Epithelial Cell Urine 0-1 /HPF (0-5/HPF); WBC Urine 10-30/HPF (0-5/HPF)
[2020-10-07 13:35] LABS: Culture Indicated Urine Specimen Cultured
[2020-10-07 15:00] VITALS: BP 117/64; PULSE 104; O2SAT 100
== END 2020-10-07 15:31 | disposition home or self-care (01) ==
PROVIDERS: Emergency Provider Emergency Medicine; PCP Family Medicine
DX: R55 Syncope and collapse (principal); E87.1 Hypo-osmolality and hyponatremia; N39.0 Urinary tract infection, site not specified; D64.9 Anemia, unspecified; M54.9 Dorsalgia, unspecified; I10 Essential (primary) hypertension; D72.829 Elevated white blood cell count, unspecified; Z92.241 Personal history of systemic steroid therapy
CPT/HCPCS: 36415; 70450; 72158; 80053; 81001; 82550; 84484; 85025; 87077; 87086; 87186; 93005; 93010; 96365; 96366; 96375; 99284; J2060

== ENCOUNTER 2020-10-29 10:09 | Inpatient (IN) | payer MEDICARE, MEDICAID, SELFPAY ==
[2020-05-18 13:18] VITALS: BMI 22.2
[2020-10-29] VITALS (18 sets, daily range): BP systolic 104–147; BP diastolic 62–92; PULSE 84–111; RESP 14–24; TEMP 36.4–37.7; O2SAT 94–100; BMI 19.5
--- NOTE | 2020-10-29 10:52 | ED_ITS ---
HPI - Weakness General Chief complaint: Weakness Stated complaint: Worsening bilateral leg weakness Time Seen by Provider: 10/29/20 10:49 Source: patient and EMS Mode of arrival: EMS Limitations: no limitations History of Present Illness HPI Narrative: This is a 70-year-old [facility] of increasing weakness in her bilateral lower extremities. Patient states that she can move her legs without issue, she does have chronic back issues has had 3 kyphoplasties in the past as well as a epidural joint injection in September. Patient states for the last 2-3 weeks she has noted she has had increasing weakness in her extremities. She states she suspects that she may have a kidney infection causing her weakness. She states she will ambulate and her legs will suddenly gave out and she will fall to the floor. She states she landed on her knees, she has not hit her head or been knocked out. She denies any increase in back pain she denies any new pain in her lower extremities. She states that a just feel weak. She denies any new numbness or tingling in her lower extremities. She denies any loss of bowel or bladder control or saddle anesthesia. She does take oxycodone every 3 hours for pain control. She denies fevers or chills. She denies any chest pain or shortness of breath. She denies any nausea or vomiting. No diarrhea, constipation. She has not appreciated any frequency, dysuria sense of urgency but has noted a foul odor and dark urine. Patient was here in mid September with similar symptoms was diagnosed with a UTI, she does not recall the specific ER visit and is unable to clarify if she improved in between the episodes. Related Data Home Medications Medication Instructions Recorded Confirmed metoprolol tartrate 25 mg PO BID #0 04/24/17 10/29/20 gabapentin 300 mg PO TID 11/07/18 10/29/20 pantoprazole 40 mg PO BID 11/07/18 10/29/20 sucralfate 1 g PO QID 01/14/19 10/29/20 carisoprodol 350 mg PO TID PRN 10/29/20 10/29/20 oxycodone 10 mg PO Q4HR PRN MDD 60 mg 10/29/20 10/29/20 Allergies Allergy/AdvReac Type Severity Reaction Status Date / Time tramadol [TRAMADOL] Allergy Unknown Verified 10/29/20 10:30 amitriptyline [AMITRIPTYLINE] AdvReac Intermediate Confusion Verified 10/29/20 10:30 Review of Systems Review of Systems ROS Unobtainable: All systems reviewed & are unremarkable except as noted in HPI and below Patient History Medical History Anxiety Arthritis C. difficile colitis Chronic pain Colitis Compression fracture of L1 vertebra (~07/2019) COPD (chronic obstructive pulmonary disease) Depression DJD (degenerative joint disease) Fibromyalgia Fracture, tibia GI bleeding History of recurrent UTIs HLD (hyperlipidemia) Hypertension Insomnia Left foot drop Lumbar compression fracture (02/26/19) Migraines Multiple fractures Neuropathy Numbness and tingling Osteoporosis Radius fracture (08/30/17) Renal disease Surgical History H/O: hysterectomy History of surgery Hx of appendectomy Hx of cholecystectomy Hx of elbow surgery Hx of kyphoplasty (~2013) Hx of kyphoplasty (04/28/19) Hx of kyphoplasty (07/28/19) Hx of tonsillectomy Status post epidural steroid injection (03/25/19) Family History Mother No known health problems Father No known health problems Social History household members: significant other Smoking Status: Former smoker alcohol intake: current Smoking Status: Former smoker alcohol intake frequency: holidays/special occasions only Substance Use Type: does not use and former substance user Exam Narrative Exam Narrative: GEN: Thin female, alert and oriented x 3, patient appears to be in mild distress. HEENT: Atraumatic, pupils are equal round reactive to light, extraocular movements are intact, nares are clear. HEART: Regular rate and rhythm without murmur, clicks, rubs. Pulses are equal in upper and lower extremities LUNGS:Lungs clear to auscultation, no wheezes, rales, crackles, chest moves symmetrically, 3 Lazaro. [place] the 3 muscle use. ABD:bowel sounds normal, soft, non-tender, no guarding, rebound, rigidity, no masses noted, no hepatosplenomegaly :No CVA tenderness MSCL: Non-tender, no muscle atrophy, muscles strength 5/5 upper and lower extremities, with full strength with plantar flexion and dorsiflexion, reflexes 2/4 bilateral lower extremities. Full range of motion. NEURO:CN 2-12 intact, sensation normal to light touch. SKIN: patient has healed incision on left medial malleolus. No rash, erythema or other skin changes noted. Initial Vital Signs Initial Vital Signs: Vital Signs Temperature 98.8 F 10/29/20 10:27 Pulse Rate 96 H 10/29/20 10:27 Respiratory Rate 20 10/29/20 10:27 Blood Pressure 114/69 10/29/20 10:27 Pulse Oximetry 99 10/29/20 10:27 Scores GCS Fill[place] coma scale eye opening: Spontaneous [place] coma scale verbal response: Orientated Rosalie coma scale motor response: Obey commands Fillmore coma scale total score: 15 Course Orders Ordered: ED Orders 10/29/20 10:25 Blood Culture Stat 10/29/20 10:31 EKG-12 Lead Stat 10/29/20 11:15 Acetaminophen Stat Complete Blood Count AUTO DIFF Stat Comprehensive Metabolic Panel Stat Ethanol (ETOH) Stat Lactate (Lactic Acid) Stat Lipase Stat Partial Thromboplastin Time Stat Procalcitonin Stat Prothrombin Time INR Stat Salicylate Stat 10/29/20 11:27 Urine Drug Screen, Rapid Stat 10/29/20 11:28 Urine Culture Stat Urine Microscopic Stat 10/29/20 11:41 COVID19 - ADMIT (DETECTIVE [employer] BUREAU swab/PCR) Stat 10/29/20 14:06 US abdomen complete Stat XR chest 1V Stat 10/29/20 14:40 Lactate Dehydrogenase Stat Carisoprodol (Carisoprodol 350 Mg Tablet) 350 mg PO TID PRN PRN Reason: Muscle Spasm Last Admin: 10/29/20 15:45 Dose: 350 mg Documented by: JESICA Enoxaparin Sodium (Enoxaparin 30 Mg/0.3 Ml Syringe) 30 mg SUBCUT DAILY FOR[facility]LY [facility], [facility]1983 Gabapentin (Gabapentin 300 Mg Capsule) 300 mg PO TID LACY Last Admin: 10/29/20 15:45 Dose: 300 mg Documented by: JESICA Ceftriaxone Sodium/Dextrose (Rocephin) 1 gm in 50 mls @ 100 mls/hr IV Q24H FOR[facility], [facility]1983 Influenza Virus Vaccine (Influenza Hd Vaccine 0.7 Ml Syringe) 0.7 ml IM .ONCE ONE Stop: 10/30/20 09:01 Metoprolol Tartrate (Metoprolol Ir 25 Mg Tablet) 25 mg PO BID FOR[facility]1983 Naloxone HCl (Naloxone 0.4 Mg/Ml Vial) 0.2 mg IV Q2MIN PRN PRN Reason: Opiate Reversal Oxycodone HCl (Oxycodone Ir 10 Mg Tablet) 10 mg PO Q4HR PRN PRN Reason: Pain, Moderate Last Admin: 10/29/20 17:22 Dose: 10 mg Documented by: RINA Pantoprazole Sodium (Pantoprazole 40 Mg Tablet) 40 mg PO BID FOR[facility]LY [facility], [facility] Polyethylene Glycol (Polyethylene Glycol 3350 17 Gm Powd.Pack) 17 gm PO DAILY PRN PRN Reason: constipation Sucralfate (Sucralfate 1 Gm Tablet) 1 gm PO QID FOR[facility], [facility] Last Admin: 10/29/20 17:22 Dose: 1 gm Documented by: RINA Discontinued Medications Aspirin (Aspirin Ec 81 Mg Tablet) 81 mg PO DAILY [facility], [facility] Sodium Chloride (Normal Saline 0.9%) 1,000 mls @ 125 mls/hr IV CONT FOR[facility]LY [facility], [facility] Last Infusion: 10/29/20 13:42 Dose: 0 mls/hr Documented by: Admin: 10/29/20 11:27 Dose: 125 mls/hr Documented by: PRIMITIVO Sodium Chloride (Normal Saline 0.9%) 1,000 mls @ 1,000 mls/hr IV BOLUS ONE Stop: 10/29/20 13:14 Last Infusion: 10/29/20 13:42 Dose: 0 mls/hr Documented by: Admin: 10/29/20 12:21 Dose: 1,000 mls/hr Documented by: SHYANN Ceftriaxone Sodium/Dextrose (Rocephin) 1 gm in 50 mls @ 100 mls/hr IV NOW ONE Stop: 10/29/20 12:47 Last Infusion: 10/29/20 13:05 Dose: 0 mls/hr Documented by: Admin: 10/29/20 12:21 Dose: 100 mls/hr Documented by: SHYANN Oxycodone HCl (Oxycodone Ir 5 Mg Tablet) 10 mg PO NOW ONE Stop: 10/29/20 12:27 Last Admin: 10/29/20 12:31 Dose: 10 mg Documented by: ZGELEYN Oxycodone/Acetaminophen (Oxycodone/Acetaminophen 5/325 Tablet) 2 tab PO Q4H PRN PRN Reason: pain Reevaluation(s) Reevaluation #1: Patient was updated dated on her findings today. We did discuss that there is a possibility infection could be the cause but there is also concern for a myeloproliferative disorder. Consultations Consultation #1: Dr. Walls, recommends oncology consultation to see if they feel patient needs transfer for urgent bone marrow biopsy or is they feel she is appropriate for here. Time: 13:34 Consultation #2: Dr. Rousseau, reviewed patients history, labs, prior imaging. Would treat potential infection. Does not emergent or urgent bone marrow biopsy. Asks for heme/onc consult. Dr. Ba or Kierra would be consulting. Peripheral smear, LDH serum, ABD US and treat infection. Time: 14:03 Consultation #3: Dr. Walls updated on recommendations and accepts for admission. Time: 14:10 Vital Signs Vital signs: Vital Signs - 8 hr 10/29/20 10:27 10/29/20 10:30 10/29/20 11:00 Temperature 98.8 F Pulse Rate 85 85 84 Respiratory Rate 15 14 22 Blood Pressure 114/69 116/64 Pulse Oximetry 95 99 10/29/20 11:11 10/29/20 11:30 10/29/20 12:00 Temperature Pulse Rate 85 86 90 Respiratory Rate 24 14 19 Blood Pressure 120/75 116/62 117/73 Pulse Oximetry 99 10/29/20 12:30 10/29/20 12:43 10/29/20 13:00 Temperature Pulse Rate 91 H 94 H Respiratory Rate 17 17 Blood Pressure 135/63 138/67 135/66 Pulse Oximetry 94 10/29/20 13:30 10/29/20 13:42 10/29/20 14:00 Temperature Pulse Rate 106 H 111 H 92 H Respiratory Rate 16 23 22 Blood Pressure 104/87 109/64 Pulse Oximetry MDM - Weakness Lab Data Attestation: I reviewed the patient's lab results. Result diagrams: 10/29/20 11:15 10/29/20 11:15 Labs: Lab Results 10/29/20 10/29/20 10/29/20 Range/Units 11:15 11:15 11:15 WBC 33.2 H* (4.5-11.0) X10^3/uL RBC 3.40 L (4.0-5.2) X10^6/uL Hgb 9.8 L (12.0-16.0) g/dL Hct 31.0 L (36-46) % MCV 91.1 (80-100) fL MCH 28.8 (26-34) PG MCHC 31.7 (30-36) % RDW 18.4 H (11.6-14.8) % Plt Count 1153 H* (150-400) X10^3/uL Neut % (Auto) Not Reportable Lymph % (Auto) Not Reportable Irwin % (Auto) Not Reportable Eos % (Auto) Not Reportable Baso % (Auto) Not Reportable Lymph # (Auto) Not Reportable Irwin # (Auto) Not Reportable Baso # (Auto) Not Reportable Total Counted 100 Seg Neutrophils % 80.0 H (38-70) % Band Neutrophils % 4.0 (3-7) % Lymphocytes % (Manual) 9.0 L (25-45) % Monocytes % (Manual) 6.0 (2-11) % Eosinophils % (Manual) 1.0 L (2-4) % Neutrophils # (Manual) 82660 H (1686-6515) /uL RBC Morphology Not Reportable Target Cells 1+ H Stomatocytes 1+ H PT 13.8 H (10.1-12.7) SECONDS INR 1.2 (0.9-1.3) APTT 36 (26.4-36.2) SECONDS Sodium 136 L (137-145) mmol/L Potassium 4.5 (3.4-5.1) mmol/L Chloride 107 (98-107) mmol/L Carbon Dioxide 10 L (22-32) mmol/L BUN 30 H (7-17) mg/dL Creatinine 1.52 H (0.52-1.04) mg/dL Estimated GFR 33.9 L (>60) mL/min BUN/Creatinine Ratio 19.7 (6-22) Glucose 111 H (80-110) mg/dL Lactate (0.7-2.1) mmol/L Calcium 10.1 (8.4-10.2) mg/dL Iron (37-170) ug/dL TIBC (265-497) ug/dL % Saturation (15-50) % Transferrin (206-381) mg/dL Ferritin (11-264) ng/mL Total Bilirubin 0.5 (0.2-1.3) mg/dL AST 18 (14-36) IU/L ALT 7 (<35) IU/L Alkaline Phosphatase 298 H (38-126) U/L Total Protein 8.3 H (6.3-8.2) g/dL Albumin 4.0 (3.5-5.0) g/dL Globulin 4.3 H (1.7-4.1) g/dL Albumin/Globulin Ratio 0.9 L (1.0-2.8) Lipase 147 (23-300) U/L Procalcitonin 15.1 H (<0.5) ng/mL TSH (0.47-4.68) uIU/mL Urine RBC (0-5/HPF) Urine WBC (0-5/HPF) Ur Squamous Epith Cells (0-5/HPF) Urine Bacteria (None) Ur Culture Indicated? Salicylates (<20) mg/dL U Opiates 300ng/mL cut (Negative) Ur Oxycodone Screen (Negative) Urine Methadone Screen (Negative) Acetaminophen (10-30) ug/mL Ur Barbiturates Screen (Negative) U Tricyclic Antidepress (Negative) Ur Phencyclidine Scrn (Negative) Ur Amphetamines Screen (Negative) U Methamphetamines Scrn (Negative) Ur MDMA Scrn (Ecstasy) (Negative) U Benzodiazepines Scrn (Negative) Urine Cocaine Screen (Negative) U Marijuana (THC) Screen (Negative) Ethyl Alcohol ( - 10) mg/dL SARS-CoV-2 (PCR) (Negative) 10/29/20 10/29/20 10/29/20 Range/Units 11:15 11:15 11:15 WBC (4.5-11.0) X10^3/uL RBC (4.0-5.2) X10^6/uL Hgb (12.0-16.0) g/dL Hct (36-46) % MCV (80-100) fL MCH (26-34) PG MCHC (30-36) % RDW (11.6-14.8) % Plt Count (150-400) X10^3/uL Neut % (Auto) Lymph % (Auto) Irwin % (Auto) Eos % (Auto) Baso % (Auto) Lymph # (Auto) [place]win # (Auto) Baso # (Auto) Total Counted Seg Neutrophils % (38-70) % Band Neutrophils % (3-7) % Lymphocytes % (Manual) (25-45) % Monocytes % (Manual) (2-11) % Eosinophils % (Manual) (2-4) % Neutrophils # (Manual) (4657-1426) /uL RBC Morphology Target Cells Stomatocytes PT (10.1-12.7) SECONDS INR (0.9-1.3) APTT (26.4-36.2) SECONDS Sodium (137-145) mmol/L Potassium (3.4-5.1) mmol/L Chloride (98-107) mmol/L Carbon Dioxide (22-32) mmol/L BUN (7-17) mg/dL Creatinine (0.52-1.04) mg/dL Estimated GFR (>60) mL/min BUN/Creatinine Ratio (6-22) Glucose (80-110) mg/dL Lactate 1.4 (0.7-2.1) mmol/L Calcium (8.4-10.2) mg/dL Iron (37-170) ug/dL TIBC (265-497) ug/dL % Saturation (15-50) % Transferrin (206-381) mg/dL Ferritin (11-264) ng/mL Total Bilirubin (0.2-1.3) mg/dL AST (14-36) IU/L ALT (<35) IU/L Alkaline Phosphatase (38-126) U/L Total Protein (6.3-8.2) g/dL Albumin (3.5-5.0) g/dL Globulin (1.7-4.1) g/dL Albumin/Globulin Ratio (1.0-2.8) Lipase (23-300) U/L Procalcitonin (<0.5) ng/mL TSH (0.47-4.68) uIU/mL Urine RBC (0-5/HPF) Urine WBC (0-5/HPF) Ur Squamous Epith Cells (0-5/HPF) Urine Bacteria (None) Ur Culture Indicated? Salicylates < 1.0 (<20) mg/dL U Opiates 300ng/mL cut (Negative) Ur Oxycodone Screen (Negative) Urine Methadone Screen (Negative) Acetaminophen < 10 L (10-30) ug/mL Ur Barbiturates Screen (Negative) U Tricyclic Antidepress (Negative) Ur Phencyclidine Scrn (Negative) Ur Amphetamines Screen (Negative) U Methamphetamines Scrn (Negative) Ur MDMA Scrn (Ecstasy) (Negative) U Benzodiazepines Scrn (Negative) Urine Cocaine Screen (Negative) U Marijuana (THC) Screen (Negative) Ethyl Alcohol < 10 ( - 10) mg/dL SARS-CoV-2 (PCR) (Negative) 10/29/20 10/29/20 10/29/20 Range/Units 11:15 11:15 11:15 WBC (4.5-11.0) X10^3/uL RBC (4.0-5.2) X10^6/uL Hgb (12.0-16.0) g/dL Hct (36-46) % MCV (80-100) fL MCH (26-34) PG MCHC (30-36) % RDW (11.6-14.8) % Plt Count (150-400) X10^3/uL Neut % (Auto) Lymph % (Auto) Irwin % (Auto) Eos % (Auto) Baso % (Auto) Lymph # (Auto) [place]win # (Auto) Baso # (Auto) Total Counted Seg Neutrophils % (38-70) % Band Neutrophils % (3-7) % Lymphocytes % (Manual) (25-45) % Monocytes % (Manual) (2-11) % Eosinophils % (Manual) (2-4) % Neutrophils # (Manual) (6882-7772) /uL RBC Morphology Target Cells Stomatocytes PT (10.1-12.7) SECONDS INR (0.9-1.3) APTT (26.4-36.2) SECONDS Sodium (137-145) mmol/L Potassium (3.4-5.1) mmol/L Chloride (98-107) mmol/L Carbon Dioxide (22-32) mmol/L BUN (7-17) mg/dL Creatinine (0.52-1.04) mg/dL Estimated GFR (>60) mL/min BUN/Creatinine Ratio (6-22) Glucose (80-110) mg/dL Lactate (0.7-2.1) mmol/L Calcium (8.4-10.2) mg/dL Iron 19 L (37-170) ug/dL TIBC 239 L (265-497) ug/dL % Saturation 8 L (15-50) % Transferrin 93 L (206-381) mg/dL Ferritin 984 H (11-264) ng/mL Total Bilirubin (0.2-1.3) mg/dL AST (14-36) IU/L ALT (<35) IU/L Alkaline Phosphatase (38-126) U/L Total Protein (6.3-8.2) g/dL Albumin (3.5-5.0) g/dL Globulin (1.7-4.1) g/dL Albumin/Globulin Ratio (1.0-2.8) Lipase (23-300) U/L Procalcitonin (<0.5) ng/mL TSH 0.93 (0.47-4.68) uIU/mL Urine RBC (0-5/HPF) Urine WBC (0-5/HPF) Ur Squamous Epith Cells (0-5/HPF) Urine Bacteria (None) Ur Culture Indicated? Salicylates (<20) mg/dL U Opiates 300ng/mL cut (Negative) Ur Oxycodone Screen (Negative) Urine Methadone Screen (Negative) Acetaminophen (10-30) ug/mL Ur Barbiturates Screen (Negative) U Tricyclic Antidepress (Negative) Ur Phencyclidine Scrn (Negative) Ur Amphetamines Screen (Negative) U Methamphetamines Scrn (Negative) Ur MDMA Scrn (Ecstasy) (Negative) U Benzodiazepines Scrn (Negative) Urine Cocaine Screen (Negative) U Marijuana (THC) Screen (Negative) Ethyl Alcohol ( - 10) mg/dL SARS-CoV-2 (PCR) (Negative) 10/29/20 10/29/20 10/29/20 Range/Units 11:27 11:28 11:41 WBC (4.5-11.0) X10^3/uL RBC (4.0-5.2) X10^6/uL Hgb (12.0-16.0) g/dL Hct (36-46) % MCV (80-100) fL MCH (26-34) PG MCHC (30-36) % RDW (11.6-14.8) % Plt Count (150-400) X10^3/uL Neut % (Auto) Lymph % (Auto) Irwin % (Auto) Eos % (Auto) Baso % (Auto) Lymph # (Auto) [place]win # (Auto) Baso # (Auto) Total Counted Seg Neutrophils % (38-70) % Band Neutrophils % (3-7) % Lymphocytes % (Manual) (25-45) % Monocytes % (Manual) (2-11) % Eosinophils % (Manual) (2-4) % Neutrophils # (Manual) (4057-9002) /uL RBC Morphology Target Cells Stomatocytes PT (10.1-12.7) SECONDS INR (0.9-1.3) APTT (26.4-36.2) SECONDS Sodium (137-145) mmol/L Potassium (3.4-5.1) mmol/L Chloride (98-107) mmol/L Carbon Dioxide (22-32) mmol/L BUN (7-17) mg/dL Creatinine (0.52-1.04) mg/dL Estimated GFR (>60) mL/min BUN/Creatinine Ratio (6-22) Glucose (80-110) mg/dL Lactate (0.7-2.1) mmol/L Calcium (8.4-10.2) mg/dL Iron (37-170) ug/dL TIBC (265-497) ug/dL % Saturation (15-50) % Transferrin (206-381) mg/dL Ferritin (11-264) ng/mL Total Bilirubin (0.2-1.3) mg/dL AST (14-36) IU/L ALT (<35) IU/L Alkaline Phosphatase (38-126) U/L Total Protein (6.3-8.2) g/dL Albumin (3.5-5.0) g/dL Globulin (1.7-4.1) g/dL Albumin/Globulin Ratio (1.0-2.8) Lipase (23-300) U/L Procalcitonin (<0.5) ng/mL TSH (0.47-4.68) uIU/mL Urine RBC 1-5/hpf (0-5/HPF) Urine WBC 10-30/hpf H (0-5/HPF) Ur Squamous Epith Cells None seen (0-5/HPF) Urine Bacteria Many (>30) H (None) Ur Culture Indicated? Specimen cultured Salicylates (<20) mg/dL U Opiates 300ng/mL cut Negative (Negative) Ur Oxycodone Screen Negative (Negative) Urine Methadone Screen Negative (Negative) Acetaminophen (10-30) ug/mL Ur Barbiturates Screen Negative (Negative) U Tricyclic Antidepress Negative (Negative) Ur Phencyclidine Scrn Negative (Negative) Ur Amphetamines Screen Negative (Negative) U Methamphetamines Scrn Negative (Negative) Ur MDMA Scrn (Ecstasy) Negative (Negative) U Benzodiazepines Scrn Negative (Negative) Urine Cocaine Screen Negative (Negative) U Marijuana (THC) Screen Negative (Negative) Ethyl Alcohol ( - 10) mg/dL SARS-CoV-2 (PCR) Negative (Negative) Urine Dip Bedside Urine Glucose Negative Bedside Urine Bilirubin - Negative Bedside Urine Ketone - Negative Urine Specific [place] 1.015 Bedside Urine Occult Blood - Negative Bedside Urine pH 6.0 Bedside Urine Protein + 30 Bedside Urine Urobilinogen - Negative Bedside Urine Nitrite + Positive Bedside Urine Leukocytes + 70 Esterase ECG Data Attestation: I personally reviewed and interpreted this ECG as follows: Interpretation: Sinus rhythm with premature atrial complexes, rate of 86 WA interval 142, QRS is 72 and QTC of 4 moved 2. Patient does appear to have a UA with every QRS and QRS with every P wave but does have some irregularity. Nonspecific change. Patient has prior EKG from 10/07/2020 which showed normal sinus rhythm. Patient has the 3 does show T-wave inversion which was not present on prior no other ST changes appreciated. MDM Narrative Medical decision making narrative: This is a 70-year-old female comes to the emergency department with complaint of worsening lower extremity weakness. Patient suspect she has a bladder or kidney infection. On examination she has full range of motion of her lower extremities with no discernible weakness but does require some assistance to the commode. Patient's labs show a leukocytosis and thrombocytosis that is quite significant and appears to be trending up over time with a longstanding thrombocytosis. Her hemoglobin appears stable but she is anemic. Suspect that this may not be secondary to infection although she does have an elevated procalcitonin of 15. Urine does show changes concerning for possible infection but patient does not appear septic on evaluation. Blood cultures were obtained and are pending and she was treated with a dose of IV Rocephin. Case was discussed with Oncology who does not recommend urgent/jean gent bone marrow biopsy. They do recommend adding as serum LDH, peripheral smear if not obtained, abdominal ultrasound to evaluate the spleen and treat patient's infection to rule out a reactive thrombocytosis and leukocytosis. This was relayed back to the hospitalist who accepts for admission. Discharge Plan Departure Patient Disposition: Admitted as Observation Clinical Impression: Weakness, UTI (urinary tract infection), Thrombocytosis, Leukocytosis Admit Date/Time: 10/29/20 14:12 Admit Provider: Master Walls
[2020-10-29] MEDS: SODIUM CHLORIDE 0.9% 1,000 ML 125 ML IV (11:27)
[2020-10-29 11:37] LABS: Hemoglobin 9.8 g/dL (12.0-16.0); Mean Corpuscular HGB Conc 31.7 % (30-36); Mean Corpuscular Hemoglobin 28.8 PG (26-34); Mean Corpuscular Volume 91.1 fL (80-100); Red Cell Distribution Width 18.4 % (11.6-14.8)
[2020-10-29 11:40] LABS: INR 1.2 (0.9-1.3); Prothrombin Time 13.8 SECONDS (10.1-12.7)
[2020-10-29 11:43] LABS: PTT Partial Thromboplastin Tim 36 SECONDS (26.4-36.2)
[2020-10-29 11:47] LABS: Alanine Aminotransferase 7 IU/L (<35); Albumin Globulin Ratio 0.9 (1.0-2.8); Alkaline Phosphatase 298 U/L (38-126); Aspartate Aminotransferase 18 IU/L (14-36); BUN Creatinine Ratio 19.7 (6-22); Bilirubin Total 0.5 mg/dL (0.2-1.3); Blood Urea Nitrogen 30 mg/dL (7-17); Calcium 10.1 mg/dL (8.4-10.2); Carbon Dioxide 10 mmol/L (22-32); Chloride 107 mmol/L (98-107); Estimated Glomerular Filt Rate 33.9 mL/min (>60); Globulin 4.3 g/dL (1.7-4.1); Glucose 111 mg/dL (80-110); HEMOLYSIS 48 (0-50); Lactate (Lactic Acid) 1.4 mmol/L (0.7-2.1); Lipase 147 U/L (23-300); Potassium 4.5 mmol/L (3.4-5.1); Sodium 136 mmol/L (137-145); Total Protein 8.3 g/dL (6.3-8.2)
[2020-10-29 12:02] LABS: Procalcitonin 15.1 ng/mL (<0.5)
[2020-10-29 12:07] LABS: Add Manual Diff / Slide Review YES; Platelet Count 1153 X10^3/uL (150-400); White Blood Cell Count 33.2 X10^3/uL (4.5-11.0)
[2020-10-29] MEDS: SODIUM CHLORIDE 0.9% 1,000 ML 1000 ML IV (12:21)
[2020-10-29] MEDS: CEFTRIAXONE 1 GM/50 ML FROZ.PIGGY IV (12:21)
[2020-10-29 12:30] LABS: Neutrophils Absolute Manual 27888 /uL (3000-5900); Total Cells Counted 100
[2020-10-29 12:31] LABS: Stomatocytes 1+; Target Cells 1+
[2020-10-29] MEDS: OXYCODONE IR 5 MG TABLET 10 MG PO (12:31)
[2020-10-29 12:44] LABS: UR Morphine/Opiate cutoff 300 Negative (Negative); Ur Creatinine Normal (Normal); Ur Specific Gravity Normal (Normal); Urine Amphetamines Negative (Negative); Urine Barbiturates Negative (Negative); Urine Benzodiazepines Negative (Negative); Urine Cocaine Negative (Negative); Urine MDMA Negative (Negative); Urine Methadone Negative (Negative); Urine Methamphetamines Negative (Negative); Urine Oxycodone Negative (Negative); Urine Phencyclidine Negative (Negative); Urine Tetrahydrocannabinol Negative (Negative); Urine Tricyclic Antidepressant Negative (Negative); Urine pH Normal (Normal)
[2020-10-29 12:44] LABS: Acetaminophen < 10 ug/mL (10-30); Salicylate < 1.0 mg/dL (<20)
[2020-10-29 12:53] LABS: Ethanol (ETOH) < 10 mg/dL
[2020-10-29 13:05] LABS: Bacteria Urine Many (>30); RBC Urine 1-5/HPF (0-5/HPF); Squamous Epithelial Cell Urine None Seen (0-5/HPF); WBC Urine 10-30/HPF (0-5/HPF)
[2020-10-29 13:06] LABS: Culture Indicated Urine Specimen Cultured
[2020-10-29 13:16] LABS: COVID19 - ADMIT (NP swab/PCR) Negative (Negative)
--- NOTE | 2020-10-29 14:06 | DI.RAD.S_ITS ---
PROCEDURE: XR CHEST 1V INDICATIONS: concern for myeloproliferative disorder, eval TECHNIQUE: One view of the chest was acquired. COMPARISON: [facility], CR, XR CHEST 1V, 11/07/2018, 14:47. FINDINGS: Surgical changes and devices: None. Lungs and pleura: Lungs are clear. No pleural effusions or pneumothorax. Mediastinum: Mediastinal contours appear normal. Heart size is normal. Bones and chest wall: No suspicious bony lesions. Overlying soft tissues appear unremarkable. IMPRESSION: No evidence acute pulmonary process. Dictated by: David Landers M.D. on 10/29/2020 at 13:53 Approved by: David Landers M.D. on 10/29/2020 at 13:53
--- NOTE | 2020-10-29 14:06 | DI.US.S_ITS ---
PROCEDURE: US ABDOMEN COMPLETE INDICATIONS: CONCERN FOR MYELOPROLIFERATIVE DISORDER TECHNIQUE: Real-time scanning was performed of the abdominal and retroperitoneal organs, with image documentation. COMPARISON: [facility], CT, CT ABDOMEN PELVIS W CON, 11/07/2018, 18:26. [facility], US, ABDOMEN COMPLETE, 04/08/2017, 22:02. FINDINGS: Liver: Liver is normal in size and homogeneous in echotexture. Gallbladder: Is surgically absent. Biliary ducts: Intrahepatic bile ducts are non-dilated. Extrahepatic bile duct caliber measures 1.5 mm. Normal is 6-7 mm or less in diameter, or 10 mm or less post-cholecystectomy. Pancreas: Visualized portions of the pancreas are sonographically normal. However, the pancreatic duct is diffusely dilated, measuring 4.6 mm. Spleen: Spleen is normal in size and homogeneous in echotexture. Kidneys: Kidneys are normal in size and echotexture. Right kidney measures 0.4 cm long; left kidney measures 9.5 cm long. No hydronephrosis involving either kidney. Multiple left renal stones. These are nonobstructive.. There is a complex masslike lesion posterior to the left kidney measuring 8.3 x 6.4 x 6.0 cm. It is nonvascular. It is of uncertain etiology. Aorta: Visualized aorta is normal in caliber at less than 3 cm. Iliacs: Proximal common iliac arteries are normal in caliber at less than 2.5 cm. IVC: Intrahepatic inferior vena cava is patent. Miscellaneous: No free abdominal fluid. IMPRESSION: 1. Complex heterogeneous mass posterior to the left kidney of uncertain etiology. 2. Multiple nonobstructing left renal stones. 3. Interval development of pancreatic ductal dilatation. Comment: CT of the abdomen and pelvis is suggested, with IV contrast if possible. Dictated by: David Landers M.D. on 10/29/2020 at 16:32 Approved by: David Landers M.D. on 10/29/2020 at 16:39
--- NOTE | 2020-10-29 14:40 | P.HP_ITS ---
History of Present Illness History of Present Illness Date Patient Seen: 10/29/20 Time Patient Seen: 14:30 Chief complaint: Worsening bilateral leg weakness Narrative: Patient is 70-year-old female with history of chronic pain due to numerous osteoporosis fractures, CKD stage III, presents emergency department due to progressive weakness and fatigue. Patient states she has been completely exhausted over the past few weeks and has hard time even staying awake. In the past week, her legs have gotten quite weak where legs ?feel like Jell-O ?and she has a hard time walking. Her son has actually been staying at her house to help her out and kept her from falling several times. Patient also reports 15 lb weight loss in the past week with loss of appetite. She denies nausea, vomiting, abdominal pain or fevers. She has noticed foul urine odor and urinary burning for the past couple of weeks. She has not been on an antibiotic. On ED evaluation she had stable vitals. Blood work showed WBC 33.2, hemoglobin 9.8, platelets 1,153,000. Her alkaline phosphatase was elevated at 298 with normal LFTs, albumin 4.0, elevated protein 8.3 and elevated procalcitonin of 15.1. Urinalysis microscopic 10-30 WBC, many bacteria. Review of prior labs shows she had a WBC of 24.8 on 10/07/2020 and treated as outpatient for UTI. Her urine culture grew pansensitive E coli. She had a normal WBC 9.6 on 04/27/2019 although has had frequent WBC elevations in past years. Patient has chronic normocytic anemia dating back to at least March 2017 with significantly fluctuating hemoglobin values. Additionally she has had chronic platelet elevations with platelet count of 854,000 on October 07. On 04/27/2019 her platelets were 791,000 and prior to that she had fluctuating elevated platelet counts dating back to at least March 2017 which is earliest available lab results on [facility]. In March 2017 she had platelet counts of 729,000. In May 2018 she had platelet count of 1,182,000 which improved substantially on subsequent labs but never normalized. Patient History Medical History Anxiety Arthritis C. difficile colitis Chronic pain Colitis Compression fracture of L1 vertebra (~07/2019) COPD (chronic obstructive pulmonary disease) Depression DJD (degenerative joint disease) Fibromyalgia Fracture, tibia GI bleeding History of recurrent UTIs HLD (hyperlipidemia) Hypertension Insomnia Left foot drop Lumbar compression fracture (02/26/19) Migraines Multiple fractures Neuropathy Numbness and tingling Osteoporosis Radius fracture (08/30/17) Renal disease Surgical History H/O: hysterectomy History of surgery Hx of appendectomy Hx of cholecystectomy Hx of elbow surgery Hx of kyphoplasty (~2013) Hx of kyphoplasty (04/28/19) Hx of kyphoplasty (07/28/19) Hx of tonsillectomy Status post epidural steroid injection (03/25/19) Family & Social History Family History Mother No known health problems Father No known health problems Social History: household members significant other Safety & Behavioral: Feels Safe in Current Yes Environment Been Physically Hurt or No Threatened By a Person Tobacco & Substance use: Tobacco type cigarettes,e-cigarettes Smoking Status Former smoker alcohol intake never alcohol intake frequency holiday/special occasion Substance Use Type does not use,former substance user Meds Home Medications and Allergies Home Medications Medication Instructions Recorded Confirmed Type metoprolol tartrate 25 mg PO BID #0 04/24/17 10/29/20 History gabapentin 300 mg PO TID 11/07/18 10/29/20 History pantoprazole 40 mg PO BID 11/07/18 10/29/20 History sucralfate 1 g PO QID 01/14/19 10/29/20 History carisoprodol 350 mg PO TID PRN 10/29/20 10/29/20 History oxycodone 10 mg PO Q4HR PRN MDD 60 mg 10/29/20 10/29/20 History Allergies Allergy/AdvReac Type Severity Reaction Status Date / Time tramadol [TRAMADOL] Allergy Unknown Verified 10/29/20 10:30 amitriptyline [AMITRIPTYLINE] AdvReac Intermediate Confusion Verified 10/29/20 10:30 Review of Systems Review of Systems Narrative: Left shoulder pain due to rotator cuff syndrome, chronic back pain ROS: Yes All systems reviewed with the patient and are negative except as otherwise documented Exam Vital Signs (past 8 hours): - 10/29/20 10:27 10/29/20 10:30 10/29/20 11:00 Temperature 98.8 F Pulse Rate 85 85 84 Respiratory Rate 15 14 22 Blood Pressure 114/69 116/64 Pulse Oximetry 95 99 10/29/20 11:11 10/29/20 11:30 10/29/20 12:00 Temperature Pulse Rate 85 86 90 Respiratory Rate 24 14 19 Blood Pressure 120/75 116/62 117/73 Pulse Oximetry 99 10/29/20 12:30 10/29/20 12:43 10/29/20 13:00 Temperature Pulse Rate 91 H 94 H Respiratory Rate 17 17 Blood Pressure 135/63 138/67 135/66 Pulse Oximetry 94 10/29/20 13:30 10/29/20 13:42 Temperature Pulse Rate 106 H 111 H Respiratory Rate 16 23 Blood Pressure 104/87 Pulse Oximetry Oxygen Delivery Method Room Air Narrative Exam Narrative: General: This is an alert thin female in no acute distress HEENT: Nontraumatic, pupils equal and reactive, EOMI, oropharynx with general poor dentition Neck: No mass, no lymphadenopathy Lungs:To auscultation Heart: Normal S1 and S2, regular rhythm, premature beats, no murmur Abdomen: Flat, soft, nontender, no hepatomegaly, spleen tip not appreciated Extremities: Warm, dry without edema Neurological: Affect normal, no obvious cognitive deficits, speech normal, no leg drift, no arm drift but left arm movement limited by chronic rotator cuff tendinopathy Integument: There is a heating pad burn patch on upper back Objective Labs Result Diagrams: 10/29/20 11:15 10/29/20 11:15 Labs: Laboratory Results - last 24 hr 10/29/20 10/29/20 10/29/20 11:15 11:15 11:15 WBC 33.2 H* RBC 3.40 L Hgb 9.8 L Hct 31.0 L MCV 91.1 MCH 28.8 MCHC 31.7 RDW 18.4 H Plt Count 1153 H* Neut % (Auto) Not Reportable Lymph % (Auto) Not Reportable [place] % (Auto) Not Reportable Eos % (Auto) Not Reportable Baso % (Auto) Not Reportable Lymph # (Auto) Not Reportable [place] # (Auto) Not Reportable Baso # (Auto) Not Reportable Total Counted 100 Seg Neutrophils % 80.0 H Band Neutrophils % 4.0 Lymphocytes % (Manual) 9.0 L Monocytes % (Manual) 6.0 Eosinophils % (Manual) 1.0 L Neutrophils # (Manual) 22483 H RBC Morphology Not Reportable Target Cells 1+ H Stomatocytes 1+ H PT 13.8 H INR 1.2 APTT 36 Sodium 136 L Potassium 4.5 Chloride 107 Carbon Dioxide 10 L BUN 30 H Creatinine 1.52 H Estimated GFR 33.9 L BUN/Creatinine Ratio 19.7 Glucose 111 H Lactate Calcium 10.1 Total Bilirubin 0.5 AST 18 ALT 7 Alkaline Phosphatase 298 H Total Protein 8.3 H Albumin 4.0 Globulin 4.3 H Albumin/Globulin Ratio 0.9 L Lipase 147 Procalcitonin 15.1 H Urine RBC Urine WBC Ur Squamous Epith Cells Urine Bacteria Ur Culture Indicated? Salicylates U Opiates 300ng/mL cut Ur Oxycodone Screen Urine Methadone Screen Acetaminophen Ur Barbiturates Screen U Tricyclic Antidepress Ur Phencyclidine Scrn Ur Amphetamines Screen U Methamphetamines Scrn Ur MDMA Scrn (Ecstasy) U Benzodiazepines Scrn Urine Cocaine Screen U Marijuana (THC) Screen Ethyl Alcohol SARS-CoV-2 (PCR) 10/29/20 10/29/20 10/29/20 11:15 11:15 11:15 WBC RBC Hgb Hct MCV MCH MCHC RDW Plt Count Neut % (Auto) Lymph % (Auto) Madison % (Auto) Eos % (Auto) Baso % (Auto) Lymph # (Auto) [place] # (Auto) Baso # (Auto) Total Counted Seg Neutrophils % Band Neutrophils % Lymphocytes % (Manual) Monocytes % (Manual) Eosinophils % (Manual) Neutrophils # (Manual) RBC Morphology Target Cells Stomatocytes PT INR APTT Sodium Potassium Chloride Carbon Dioxide BUN Creatinine Estimated GFR BUN/Creatinine Ratio Glucose Lactate 1.4 Calcium Total Bilirubin AST ALT Alkaline Phosphatase Total Protein Albumin Globulin Albumin/Globulin Ratio Lipase Procalcitonin Urine RBC Urine WBC Ur Squamous Epith Cells Urine Bacteria Ur Culture Indicated? Salicylates < 1.0 U Opiates 300ng/mL cut Ur Oxycodone Screen Urine Methadone Screen Acetaminophen < 10 L Ur Barbiturates Screen U Tricyclic Antidepress Ur Phencyclidine Scrn Ur Amphetamines Screen U Methamphetamines Scrn Ur MDMA Scrn (Ecstasy) U Benzodiazepines Scrn Urine Cocaine Screen U Marijuana (THC) Screen Ethyl Alcohol < 10 SARS-CoV-2 (PCR) 10/29/20 10/29/20 10/29/20 11:27 11:28 11:41 WBC RBC Hgb Hct MCV MCH MCHC RDW Plt Count Neut % (Auto) Lymph % (Auto) Madison % (Auto) Eos % (Auto) Baso % (Auto) Lymph # (Auto) [place] # (Auto) Baso # (Auto) Total Counted Seg Neutrophils % Band Neutrophils % Lymphocytes % (Manual) Monocytes % (Manual) Eosinophils % (Manual) Neutrophils # (Manual) RBC Morphology Target Cells Stomatocytes PT INR APTT Sodium Potassium Chloride Carbon Dioxide BUN Creatinine Estimated GFR BUN/Creatinine Ratio Glucose Lactate Calcium Total Bilirubin AST ALT Alkaline Phosphatase Total Protein Albumin Globulin Albumin/Globulin Ratio Lipase Procalcitonin Urine RBC 1-5/hpf Urine WBC 10-30/hpf H Ur Squamous Epith Cells None seen Urine Bacteria Many (>30) H Ur Culture Indicated? Specimen cultured Salicylates U Opiates 300ng/mL cut Negative Ur Oxycodone Screen Negative Urine Methadone Screen Negative Acetaminophen Ur Barbiturates Screen Negative U Tricyclic Antidepress Negative Ur Phencyclidine Scrn Negative Ur Amphetamines Screen Negative U Methamphetamines Scrn Negative Ur MDMA Scrn (Ecstasy) Negative U Benzodiazepines Scrn Negative Urine Cocaine Screen Negative U Marijuana (THC) Screen Negative Ethyl Alcohol SARS-CoV-2 (PCR) Negative Assessment & Plan Assessment & Plan narrative: Patient is 70-year-old female with history of chronic pain due to numerous osteoporosis fractures, CKD stage III, presents emergency department due to progressive weakness and fatigue. Noted to have findings of UTI as well as significant abnormal blood counts. 1. Progressive weakness and fatigue, severe, present on admission, active -I suspect this is related to primary bone marrow pathology with likely myeloproliferative disorder which is accelerating as well as superimposed urinary tract infection, patient is afebrile and does not appear overtly septic, has had multiple near falls at home -treat for UTI, further evaluate bone marrow disorder -consult PT -check TSH 2. Urinary tract infection, present on admission, active -patient endorses foul odor and urinary burning, was treated with cephalexin for pansensitive E coli last month -leukocytosis likely secondary to malignant bone marrow process, also patient has elevated procalcitonin though that is less reliable marker of infection in patients with hematologic malignancy -continue Rocephin 1 g IV daily started in ED -blood in urine cultures pending 3. Chronic thrombocytosis, leukocytosis and anemia, present on admission, active -as noted patient has elevated platelet counts dating back to at least March 2017, persistent anemia, intermittent leukocytosis -current severe thrombocytosis and leukocytosis is suggestive of bone marrow malignant disorder such as myeloproliferative disorder verses infection/acute phase reactant -obtain LDH, manual differential, iron profile and ferritin -obtain abdominal ultrasound to assess spleen -further workup including bone marrow biopsy, Andrews 2 mutation assessment, to be determined by Oncology, Dr. Rousseau was contacted from the ED and states Dr Ba or Kierra can see patient, but patient does not need urgent bone marrow biopsy this weekend, at this time will hold off starting Hydrea -start aspirin 81 mg q.d., due to severe thrombocytosis patient at high risk for thrombosis, 4. History of multiple osteoporotic spinal and extremity fractures, chronic -patient states that 4 years ago she suddenly started breaking bones easily with minimal provocation, has had multiple kyphoplasties and surgery on extremities due to fractures, which I suspect is secondary to bone marrow malignant process -continue patient on oxycodone 10 mg q.4 hours as needed per home routine, gabapentin 300 mg t.i.d., carisoprodol 350 mg t.i.d. as needed 5. History of symptomatic PACs/PVCs, chronic -continue metoprolol tartrate 25 mg b.i.d. 6. History of bleeding peptic ulcer, chronic -denies melena/bright red blood, apparently for diagnosed with bleeding ulcer about 4 years ago, ? nonhealing, and has remained on b.i.d. pantoprazole and q.i.d. sucralfate since diagnosis -continue pantoprazole and sucralfate per home routine 7. Chronic kidney disease, moderate -creatinine 1.5 is within range of patient's prior lab values Code status: Full code DVT prophylaxis: Enoxaparin
[2020-10-29 14:59] LABS: Lactate Dehydrogenase 431 U/L (313-618)
[2020-10-29] MEDS: carisoprodoL 350 MG TABLET PO ×2 (15:45→20:48)
[2020-10-29] MEDS: GABAPENTIN 300 MG CAPSULE PO ×2 (15:45→20:48)
[2020-10-29 16:06] LABS: HEMOLYSIS 46 (0-50); Iron 19 ug/dL (37-170)
[2020-10-29 16:17] LABS: Percent Iron Saturation 8 % (15-50); Total Iron Binding Capacity 239 ug/dL (265-497); Transferrin 93 mg/dL (206-381)
[2020-10-29 16:41] LABS: Ferritin 984 ng/mL (11-264)
[2020-10-29 16:47] LABS: TSH w/ Reflex to FT4 0.93 uIU/mL (0.47-4.68)
[2020-10-29] MEDS: OXYCODONE IR 10 MG TABLET PO ×2 (17:22→21:41)
[2020-10-29] MEDS: SUCRALFATE 1 GM TABLET PO ×2 (17:22→20:48)
[2020-10-29] MEDS: METOPROLOL IR 25 MG TABLET PO (20:48)
[2020-10-29] MEDS: PANTOPRAZOLE 40 MG TABLET PO (20:48)
[2020-10-30] VITALS (23 sets, daily range): BP systolic 80–128; BP diastolic 49–66; PULSE 90–110; RESP 14–22; TEMP 36.7–38.7; O2SAT 94–100
--- NOTE | 2020-10-30 00:32 | PC.NURSE ---
@2330 temp of 101.6 F, instructed by RN to repeat in 1 hour, @00:30 temp 100.4 F, BP 88/50, HR in 110's. Informed RN and encouraged patient to drink water. Currently have patient sitting up. She is currently alert and talking to significant other, Patrick, on the phone, she is without any complaints at this time.
--- NOTE | 2020-10-30 00:45 | CM.MNRNOTE ---
NICOLE Cruz notified with pt. Temp. 101.6 rechecked 100.4, B/P 88/50, HR 106 & rechecked 94/50 HR. 110. Will cont. POC & monitor.
[2020-10-30] MEDS: SODIUM CHLORIDE 0.9% 500 ML IV ×2 (01:15→06:04)
[2020-10-30] MEDS: OXYCODONE IR 10 MG TABLET PO ×5 (01:24→20:47)
[2020-10-30] MEDS: ACETAMINOPHEN 325 MG TABLET 650 MG PO (01:24)
--- NOTE | 2020-10-30 03:16 | PC.NURSE ---
Bolus 500 NS ordered & Tylenol 650 mg. PO admin. NS @ 75 cc/hr., implemented & will monitor,
[2020-10-30] MEDS: SODIUM CHLORIDE 0.9% 1,000 ML 75 ML IV ×2 (03:19→08:43)
[2020-10-30] MEDS: carisoprodoL 350 MG TABLET PO ×4 (04:21→20:46)
[2020-10-30 06:09] LABS: Basophils Absolute Auto 100 /uL (0-100); Basophils Percent Auto 0.5 % (0-2); Eosinophils Absolute Auto 100 /uL (0-450); Eosinophils Percent Auto 0.3 % (2-4); Hematocrit 21.3 % (36-46); Lymphocytes Absolute Auto 2900 /uL (1100-4500); Lymphocytes Percent Auto 9.9 % (25-40); Mean Corpuscular HGB Conc 31.4 % (30-36); Mean Corpuscular Hemoglobin 28.9 PG (26-34); Mean Corpuscular Volume 91.8 fL (80-100); Monocytes Absolute Auto 3100 /uL (0-900); Monocytes Percent Auto 10.6 % (3-14); Neutrophils Absolute Auto 23300 /uL (1500-7000); Neutrophils Percent Auto 78.7 % (50-75); Platelet Count 802 X10^3/uL (150-400); Red Blood Cell Count 2.33 X10^6/uL (4.0-5.2); Red Cell Distribution Width 17.8 % (11.6-14.8); White Blood Cell Count 29.6 X10^3/uL (4.5-11.0)
[2020-10-30 06:30] LABS: BUN Creatinine Ratio 16.8 (6-22); Blood Urea Nitrogen 24 mg/dL (7-17); Calcium 8.4 mg/dL (8.4-10.2); Carbon Dioxide 12 mmol/L (22-32); Chloride 110 mmol/L (98-107); Estimated Glomerular Filt Rate 36.4 mL/min (>60); Glucose 124 mg/dL (80-110); HEMOLYSIS < 15 (0-50); Potassium 3.8 mmol/L (3.4-5.1); Sodium 131 mmol/L (137-145)
[2020-10-30 06:40] LABS: Add Manual Diff / Slide Review SLIDE REVIEW; Hemoglobin 6.7 g/dL (12.0-16.0)
[2020-10-30 06:46] LABS: Procalcitonin 11.3 ng/mL (<0.5)
--- NOTE | 2020-10-30 07:25 | DI.CT.S_ITS ---
PROCEDURE: CT ABDOMEN PELVIS W CON INDICATIONS: sepsis, abdominal mass, anemia TECHNIQUE: After the administration of oral and intravenous contrast, 5 mm thick sections acquired from the diaphragms to the symphysis. 5 mm thick coronal and sagittal reformats were performed. For radiation dose reduction, the following was used: automated exposure control, adjustment of mA and/or kV according to patient size. COMPARISON: [facility], CT, CT ABDOMEN PELVIS W CON, 11/07/2018, 18:26. FINDINGS: Image quality: Excellent. ABDOMEN: Lung bases: Lung bases are clear. Heart size is normal. Solid organs: Liver is normal in size and enhancement. Gallbladder is surgically absent. Post cholecystectomy biliary ductal dilatation. Pancreas enhances normally. Spleen is normal in size and enhancement. No adrenal nodules. Again noted are large left renal calyceal stones. The left kidney is somewhat shrunken. There is mild left hydronephrosis which has developed, possibly secondary to compression from a enlarged psoas muscle with psoas muscle abscess. Peritoneum and bowel: Stomach, small bowel, and colon loops are normal in caliber and wall thickness. No free fluid or air. Nodes and vessels: No retroperitoneal or mesenteric adenopathy. Aorta and inferior vena cava are normal in caliber. Atherosclerosis involving the aorta and iliac arteries. Miscellaneous: No ventral hernias. There is a left psoas muscle abscess which measures approximately 5.7 x 2.5 x 4.0 cm. There is also associated small left pericolic gutter abscess measuring approximately 2.0 cm in diameter. PELVIS: Genitourinary: A Centeno catheter is present in the bladder, which also contains air, likely secondary to the Centeno. There is mild bladder wall thickening. Miscellaneous: No inguinal hernias or adenopathy. Remote hysterectomy. Bones: No suspicious bony lesions. Remote percutaneous cement fixation of L1, L2, L3, and L4. Chronic compression of T12. No acute compressions identified. Deformity of the S2 vertebra is consistent with a remote sacral insufficiency fracture. IMPRESSION: 1. Large left psoas muscle abscess with small associated left pericolic gutter abscess. 2. Somewhat shrunken left kidney with multiple large stones. Mild hydronephrosis has developed. 3. Remote cholecystectomy with associated biliary ductal dilatation. 4. Numerous osteoporotic compressions, many of which have been treated with cement. 5. Centeno catheter in the bladder. The bladder wall is thickened. Dictated by: David Landers M.D. on 10/30/2020 at 9:02 Approved by: David Landers M.D. on 10/30/2020 at 9:10
--- NOTE | 2020-10-30 07:54 | DI.CT.S_ITS ---
PROCEDURE: CT CHEST WO CON INDICATIONS: sepsis TECHNIQUE: Noncontrast 5 mm thick sections acquired from the pulmonary apices to the posterior costophrenic angles. 1 mm lung window, 5 mm thick coronal and sagittal and 7 mm axial MIP reformats were then acquired. For radiation dose reduction, the following was used: automated exposure control, adjustment of mA and/or kV according to patient size. COMPARISON: None. FINDINGS: Image quality: Excellent. Lungs and pleura: No acute air space opacities. Numerous tiny calcified granulomata. No pleural effusions or pneumothorax. Central and peripheral airways are patent and normal in caliber. Mediastinum: Heart size is normal. Small pericardial effusion. Coronary artery calcifications. Lipomatous hypertrophy of the interatrial septum. No mediastinal adenopathy by size criteria. Thoracic aorta and central pulmonary arteries are normal in size. Esophagus is normal in caliber. No hiatal hernia. Bones and chest wall: No suspicious bony lesions. No acute vertebral body compression fractures. Old thoracic compressions. No axillary or supraclavicular adenopathy by size criteria. Thyroid gland is unremarkable as visualized.. Abdomen: Visualized upper abdominal solid organs and bowel loops appear normal in the absence of contrast. IMPRESSION: 1. No evidence acute pulmonary process. 2. Coronary artery disease, lipomatous hypertrophy of the interatrial septum. 3. Osteoporosis. Dictated by: David Landers M.D. on 10/30/2020 at 9:14 Approved by: David Landers M.D. on 10/30/2020 at 9:16
[2020-10-30] MEDS: MEROPENEM 1 GM in SODIUM CHLORIDE 0.9% 100 ML 200 ML IV ×2 (08:43→20:45)
[2020-10-30] MEDS: GABAPENTIN 300 MG CAPSULE PO ×3 (08:46→20:46)
[2020-10-30] MEDS: PANTOPRAZOLE 40 MG TABLET PO ×2 (08:46→20:46)
[2020-10-30] MEDS: ENOXAPARIN 30 MG/0.3 ML SYRINGE SUBCUT (08:47)
[2020-10-30 09:16] LABS: Fractionated Inspired Oxygen 21; HCO3 ABG 10 mmol/L (22-26); Oxygen Saturation ABG 97 % (95-100); PCO2 ABG 21.4 mmHg (35-45); PO2 ABG 96 mmHg (80-100); TCO2 ABG 10 mmol/L (21-31); pH ABG 7.27 (7.35-7.45)
--- NOTE | 2020-10-30 10:45 | PM.PN.1 ---
Subjective Subjective Date Patient Seen: 10/30/20 Interval history: Patient is 70-year-old female with history of chronic pain due to numerous osteoporosis fractures, CKD stage III, chronic anemia and thrombocytosis presented with complaints extreme fatigue and weakness in the legs. She had bacteriuria and pyuria and was admitted with diagnosis of complicated UTI. Overnight patient spiked a temp of 101.6? and dropped her blood pressure. She also became more acutely anemic hemoglobin dropping from 9.8-6.7 without obvious evidence of bleed. Patient appeared somnolent and confused this morning and was transferred to ICU after remained hypotensive after 1.[address] of chest abdomen and pelvis was read as indicating large left psoas abscess. However reviewing with radiologist it seems more likely abscess is arising from the left kidney. Patient does have left flank tenderness and had also been treated for outpatient UTI last month. Exam Vital Signs (past 8 hours): - 10/30/20 03:13 10/30/20 04:00 10/30/20 04:19 Temperature 99.1 F 98.8 F Pulse Rate 110 H Respiratory Rate 18 Blood Pressure 81/49 L Pulse Oximetry 98 98 10/30/20 06:00 10/30/20 07:04 10/30/20 08:00 Temperature 98.7 F 98.5 F Pulse Rate 100 H 101 H Respiratory Rate 18 Blood Pressure 80/49 L 91/51 L 92/53 L Pulse Oximetry 98 96 10/30/20 08:30 10/30/20 09:00 10/30/20 09:02 Temperature Pulse Rate 90 98 H Respiratory Rate 19 22 Blood Pressure 120/59 L 121/58 L Pulse Oximetry 98 100 96 10/30/20 10:00 10/30/20 10:15 Temperature 98.4 F 98.3 F Pulse Rate 103 H 106 H Respiratory Rate 21 16 Blood Pressure 95/54 L 94/57 L Pulse Oximetry Oxygen Delivery Method Room Air Oxygen Flow Rate 0 Narrative Exam Narrative: General: Patient is somnolent and mumbling Lungs: Bilateral diffuse crackles Heart: Regular rhythm with PACs Abdomen: Tender in the left flank Extremities: No edema Neurological: Sleepy, opens eyes briefly to command, mumbling incomprehensible words Objective Labs Result Diagrams: 10/30/20 05:43 10/30/20 05:43 Labs: Laboratory Results - last 24 hr 10/29/20 10/29/20 10/29/20 11:15 11:15 11:15 WBC 33.2 H* RBC 3.40 L Hgb 9.8 L Hct 31.0 L MCV 91.1 MCH 28.8 MCHC 31.7 RDW 18.4 H Plt Count 1153 H* Neut % (Auto) Not Reportable Lymph % (Auto) Not Reportable [place] % (Auto) Not Reportable Eos % (Auto) Not Reportable Baso % (Auto) Not Reportable Neut # (Auto) Lymph # (Auto) Not Reportable [place] # (Auto) Not Reportable Eos # (Auto) Baso # (Auto) Not Reportable Total Counted 100 Seg Neutrophils % 80.0 H Band Neutrophils % 4.0 Lymphocytes % (Manual) 9.0 L Monocytes % (Manual) 6.0 Eosinophils % (Manual) 1.0 L Neutrophils # (Manual) 08741 H Nucleated RBCs Hypersegmented Neuts Hypogranular Neuts Reactive Lymphocytes Smudge Cells Other Cell Type Toxic Granulation Toxic Vacuolation Dohle Bodies Rafaela Rods WBC Morphology Comment Platelet Estimate Clumped Platelets Plt Morphology Comment RBC Morphology Not Reportable Dimorphic RBCs Polychromasia Hypochromasia Poikilocytosis Basophilic Stippling Anisocytosis Microcytosis Macrocytosis Spherocytes Pappenheimer Bodies Sickle Cells Target Cells 1+ H Tear Drop Cells Ovalocytes Stomatocytes 1+ H Helmet Cells [place] Bodies [place] Rings [place] Cells Acanthocytes (Spur) Rouleaux Schistocytes PT 13.8 H INR 1.2 APTT 36 ABG pH ABG pCO2 ABG pO2 ABG HCO3 ABG Total CO2 ABG O2 Saturation ABG Base Excess FiO2 Sodium 136 L Potassium 4.5 Chloride 107 Carbon Dioxide 10 L BUN 30 H Creatinine 1.52 H Estimated GFR 33.9 L BUN/Creatinine Ratio 19.7 Glucose 111 H Lactate Calcium 10.1 Iron TIBC % Saturation Transferrin Ferritin Total Bilirubin 0.5 AST 18 ALT 7 Alkaline Phosphatase 298 H Lactate Dehydrogenase Total Protein 8.3 H Albumin 4.0 Globulin 4.3 H Albumin/Globulin Ratio 0.9 L Lipase 147 Procalcitonin 15.1 H TSH Urine RBC Urine WBC Ur Squamous Epith Cells Urine Bacteria Ur Culture Indicated? Nasal Screen MRSA (PCR) Salicylates U Opiates 300ng/mL cut Ur Oxycodone Screen Urine Methadone Screen Acetaminophen Ur Barbiturates Screen U Tricyclic Antidepress Ur Phencyclidine Scrn Ur Amphetamines Screen U Methamphetamines Scrn Ur MDMA Scrn (Ecstasy) U Benzodiazepines Scrn Urine Cocaine Screen U Marijuana (THC) Screen Ethyl Alcohol SARS-CoV-2 (PCR) Blood Type Antibody Screen Crossmatch 10/29/20 10/29/20 10/29/20 11:15 11:15 11:15 WBC RBC Hgb Hct MCV MCH MCHC RDW Plt Count Neut % (Auto) Lymph % (Auto) [place] % (Auto) Eos % (Auto) Baso % (Auto) Neut # (Auto) Lymph # (Auto) [place] # (Auto) Eos # (Auto) Baso # (Auto) Total Counted Seg Neutrophils % Band Neutrophils % Lymphocytes % (Manual) Monocytes % (Manual) Eosinophils % (Manual) Neutrophils # (Manual) Nucleated RBCs Hypersegmented Neuts Hypogranular Neuts Reactive Lymphocytes Smudge Cells Other Cell Type Toxic Granulation Toxic Vacuolation Dohle Bodies Rafaela Rods WBC Morphology Comment Platelet Estimate Clumped Platelets Plt Morphology Comment RBC Morphology Dimorphic RBCs Polychromasia Hypochromasia Poikilocytosis Basophilic Stippling Anisocytosis Microcytosis Macrocytosis Spherocytes Pappenheimer Bodies Sickle Cells Target Cells Tear Drop Cells Ovalocytes Stomatocytes Helmet Cells [place] Bodies [place] Rings [place] Cells Acanthocytes (Spur) Rouleaux Schistocytes PT INR APTT ABG pH ABG pCO2 ABG pO2 ABG HCO3 ABG Total CO2 ABG O2 Saturation ABG Base Excess FiO2 Sodium Potassium Chloride Carbon Dioxide BUN Creatinine Estimated GFR BUN/Creatinine Ratio Glucose Lactate 1.4 Calcium Iron TIBC % Saturation Transferrin Ferritin Total Bilirubin AST ALT Alkaline Phosphatase Lactate Dehydrogenase Total Protein Albumin Globulin Albumin/Globulin Ratio Lipase Procalcitonin TSH Urine RBC Urine WBC Ur Squamous Epith Cells Urine Bacteria Ur Culture Indicated? Nasal Screen MRSA (PCR) Salicylates < 1.0 U Opiates 300ng/mL cut Ur Oxycodone Screen Urine Methadone Screen Acetaminophen < 10 L Ur Barbiturates Screen U Tricyclic Antidepress Ur Phencyclidine Scrn Ur Amphetamines Screen U Methamphetamines Scrn Ur MDMA Scrn (Ecstasy) U Benzodiazepines Scrn Urine Cocaine Screen U Marijuana (THC) Screen Ethyl Alcohol < 10 SARS-CoV-2 (PCR) Blood Type Antibody Screen Crossmatch 10/29/20 10/29/20 10/29/20 11:15 11:15 11:15 WBC RBC Hgb Hct MCV MCH MCHC RDW Plt Count Neut % (Auto) Lymph % (Auto) [place] % (Auto) Eos % (Auto) Baso % (Auto) Neut # (Auto) Lymph # (Auto) [place] # (Auto) Eos # (Auto) Baso # (Auto) Total Counted Seg Neutrophils % Band Neutrophils % Lymphocytes % (Manual) Monocytes % (Manual) Eosinophils % (Manual) Neutrophils # (Manual) Nucleated RBCs Hypersegmented Neuts Hypogranular Neuts Reactive Lymphocytes Smudge Cells Other Cell Type Toxic Granulation Toxic Vacuolation Dohle Bodies Rafaela Rods WBC Morphology Comment Platelet Estimate Clumped Platelets Plt Morphology Comment RBC Morphology Dimorphic RBCs Polychromasia Hypochromasia Poikilocytosis Basophilic Stippling Anisocytosis Microcytosis Macrocytosis Spherocytes Pappenheimer Bodies Sickle Cells Target Cells Tear Drop Cells Ovalocytes Stomatocytes Helmet Cells [place] Bodies [place] Rings [place] Cells Acanthocytes (Spur) Rouleaux Schistocytes PT INR APTT ABG pH ABG pCO2 ABG pO2 ABG HCO3 ABG Total CO2 ABG O2 Saturation ABG Base Excess FiO2 Sodium Potassium Chloride Carbon Dioxide BUN Creatinine Estimated GFR BUN/Creatinine Ratio Glucose Lactate Calcium Iron 19 L TIBC 239 L % Saturation 8 L Transferrin 93 L Ferritin 984 H Total Bilirubin AST ALT Alkaline Phosphatase Lactate Dehydrogenase Total Protein Albumin Globulin Albumin/Globulin Ratio Lipase Procalcitonin TSH 0.93 Urine RBC Urine WBC Ur Squamous Epith Cells Urine Bacteria Ur Culture Indicated? Nasal Screen MRSA (PCR) Salicylates U Opiates 300ng/mL cut Ur Oxycodone Screen Urine Methadone Screen Acetaminophen Ur Barbiturates Screen U Tricyclic Antidepress Ur Phencyclidine Scrn Ur Amphetamines Screen U Methamphetamines Scrn Ur MDMA Scrn (Ecstasy) U Benzodiazepines Scrn Urine Cocaine Screen U Marijuana (THC) Screen Ethyl Alcohol SARS-CoV-2 (PCR) Blood Type Antibody Screen Crossmatch 10/29/20 10/29/20 10/29/20 11:27 11:28 11:41 WBC RBC Hgb Hct MCV MCH MCHC RDW Plt Count Neut % (Auto) Lymph % (Auto) [place] % (Auto) Eos % (Auto) Baso % (Auto) Neut # (Auto) Lymph # (Auto) [place] # (Auto) Eos # (Auto) Baso # (Auto) Total Counted Seg Neutrophils % Band Neutrophils % Lymphocytes % (Manual) Monocytes % (Manual) Eosinophils % (Manual) Neutrophils # (Manual) Nucleated RBCs Hypersegmented Neuts Hypogranular Neuts Reactive Lymphocytes Smudge Cells Other Cell Type Toxic Granulation Toxic Vacuolation Dohle Bodies Rafaela Rods WBC Morphology Comment Platelet Estimate Clumped Platelets Plt Morphology Comment RBC Morphology Dimorphic RBCs Polychromasia Hypochromasia Poikilocytosis Basophilic Stippling Anisocytosis Microcytosis Macrocytosis Spherocytes Pappenheimer Bodies Sickle Cells Target Cells Tear Drop Cells Ovalocytes Stomatocytes Helmet Cells [place] Bodies [place] Rings [place] Cells Acanthocytes (Spur) Rouleaux Schistocytes PT INR APTT ABG pH ABG pCO2 ABG pO2 ABG HCO3 ABG Total CO2 ABG O2 Saturation ABG Base Excess FiO2 Sodium Potassium Chloride Carbon Dioxide BUN Creatinine Estimated GFR BUN/Creatinine Ratio Glucose Lactate Calcium Iron TIBC % Saturation Transferrin Ferritin Total Bilirubin AST ALT Alkaline Phosphatase Lactate Dehydrogenase Total Protein Albumin Globulin Albumin/Globulin Ratio Lipase Procalcitonin TSH Urine RBC 1-5/hpf Urine WBC 10-30/hpf H Ur Squamous Epith Cells None seen Urine Bacteria Many (>30) H Ur Culture Indicated? Specimen cultured Nasal Screen MRSA (PCR) Salicylates U Opiates 300ng/mL cut Negative Ur Oxycodone Screen Negative Urine Methadone Screen Negative Acetaminophen Ur Barbiturates Screen Negative U Tricyclic Antidepress Negative Ur Phencyclidine Scrn Negative Ur Amphetamines Screen Negative U Methamphetamines Scrn Negative Ur MDMA Scrn (Ecstasy) Negative U Benzodiazepines Scrn Negative Urine Cocaine Screen Negative U Marijuana (THC) Screen Negative Ethyl Alcohol SARS-CoV-2 (PCR) Negative Blood Type Antibody Screen Crossmatch 10/29/20 10/30/20 10/30/20 14:40 05:43 05:43 WBC 29.6 H RBC 2.33 L Hgb 6.7 L* Hct 21.3 L MCV 91.8 MCH 28.9 MCHC 31.4 RDW 17.8 H Plt Count 802 H Neut % (Auto) 78.7 H Lymph % (Auto) 9.9 L [place] % (Auto) 10.6 Eos % (Auto) 0.3 L Baso % (Auto) 0.5 Neut # (Auto) 02282 H Lymph # (Auto) 2900 [place] # (Auto) 3100 H Eos # (Auto) 100 Baso # (Auto) 100 Total Counted Seg Neutrophils % Band Neutrophils % Lymphocytes % (Manual) Monocytes % (Manual) Eosinophils % (Manual) Neutrophils # (Manual) Nucleated RBCs Cancelled Hypersegmented Neuts Cancelled Hypogranular Neuts Cancelled Reactive Lymphocytes Cancelled Smudge Cells Cancelled Other Cell Type Cancelled Toxic Granulation Cancelled Toxic Vacuolation Cancelled Dohle Bodies Cancelled Rafaela Rods Cancelled WBC Morphology Comment Cancelled Platelet Estimate Cancelled Clumped Platelets Cancelled Plt Morphology Comment Cancelled RBC Morphology Cancelled Dimorphic RBCs Cancelled Polychromasia Cancelled Hypochromasia Cancelled Poikilocytosis Cancelled Basophilic Stippling Cancelled Anisocytosis Cancelled Microcytosis Cancelled Macrocytosis Cancelled Spherocytes Cancelled Pappenheimer Bodies Cancelled Sickle Cells Cancelled Target Cells Cancelled Tear Drop Cells Cancelled Ovalocytes Cancelled Stomatocytes Cancelled Helmet Cells Cancelled [place] Bodies Cancelled [place] Rings Cancelled [place] Cells Cancelled Acanthocytes (Spur) Cancelled Rouleaux Cancelled Schistocytes Cancelled PT INR APTT ABG pH ABG pCO2 ABG pO2 ABG HCO3 ABG Total CO2 ABG O2 Saturation ABG Base Excess FiO2 Sodium 131 L Potassium 3.8 Chloride 110 H Carbon Dioxide 12 L BUN 24 H Creatinine 1.43 H Estimated GFR 36.4 L BUN/Creatinine Ratio 16.8 Glucose 124 H Lactate Calcium 8.4 Iron TIBC % Saturation Transferrin Ferritin Total Bilirubin AST ALT Alkaline Phosphatase Lactate Dehydrogenase 431 Total Protein Albumin Globulin Albumin/Globulin Ratio Lipase Procalcitonin TSH Urine RBC Urine WBC Ur Squamous Epith Cells Urine Bacteria Ur Culture Indicated? Nasal Screen MRSA (PCR) Salicylates U Opiates 300ng/mL cut Ur Oxycodone Screen Urine Methadone Screen Acetaminophen Ur Barbiturates Screen U Tricyclic Antidepress Ur Phencyclidine Scrn Ur Amphetamines Screen U Methamphetamines Scrn Ur MDMA Scrn (Ecstasy) U Benzodiazepines Scrn Urine Cocaine Screen U Marijuana (THC) Screen Ethyl Alcohol SARS-CoV-2 (PCR) Blood Type Antibody Screen Crossmatch 10/30/20 10/30/20 10/30/20 05:43 05:43 08:06 WBC RBC Hgb Hct MCV MCH MCHC RDW Plt Count Neut % (Auto) Lymph % (Auto) [place] % (Auto) Eos % (Auto) Baso % (Auto) Neut # (Auto) Lymph # (Auto) [place] # (Auto) Eos # (Auto) Baso # (Auto) Total Counted Seg Neutrophils % Band Neutrophils % Lymphocytes % (Manual) Monocytes % (Manual) Eosinophils % (Manual) Neutrophils # (Manual) Nucleated RBCs Hypersegmented Neuts Hypogranular Neuts Reactive Lymphocytes Smudge Cells Other Cell Type Toxic Granulation Toxic Vacuolation Dohle Bodies Rafaela Rods WBC Morphology Comment Platelet Estimate Clumped Platelets Plt Morphology Comment RBC Morphology Dimorphic RBCs Polychromasia Hypochromasia Poikilocytosis Basophilic Stippling Anisocytosis Microcytosis Macrocytosis Spherocytes Pappenheimer Bodies Sickle Cells Target Cells Tear Drop Cells Ovalocytes Stomatocytes Helmet Cells [place] Bodies [place] Cells Acanthocytes (Spur) Rouleaux Schistocytes PT INR APTT ABG pH 7.27 L* ABG pCO2 21.4 L* ABG pO2 96 ABG HCO3 10 L ABG Total CO2 10 L ABG O2 Saturation 97 ABG Base Excess -17.0 L FiO2 21 Sodium Potassium Chloride Carbon Dioxide BUN Creatinine Estimated GFR BUN/Creatinine Ratio Glucose Lactate Calcium Iron TIBC % Saturation Transferrin Ferritin Total Bilirubin AST ALT Alkaline Phosphatase Lactate Dehydrogenase Total Protein Albumin Globulin Albumin/Globulin Ratio Lipase Procalcitonin 11.3 H TSH Urine RBC Urine WBC Ur Squamous Epith Cells Urine Bacteria Ur Culture Indicated? Nasal Screen MRSA (PCR) Salicylates U Opiates 300ng/mL cut Ur Oxycodone Screen Urine Methadone Screen Acetaminophen Ur Barbiturates Screen U Tricyclic Antidepress Ur Phencyclidine Scrn Ur Amphetamines Screen U Methamphetamines Scrn Ur MDMA Scrn (Ecstasy) U Benzodiazepines Scrn Urine Cocaine Screen U Marijuana (THC) Screen Ethyl Alcohol SARS-CoV-2 (PCR) Blood Type O Positive Antibody Screen Negative Crossmatch See Detail 10/30/20 08:14 WBC RBC Hgb Hct MCV MCH MCHC RDW Plt Count Neut % (Auto) Lymph % (Auto) [place] % (Auto) Eos % (Auto) Baso % (Auto) Neut # (Auto) Lymph # (Auto) [place] # (Auto) Eos # (Auto) Baso # (Auto) Total Counted Seg Neutrophils % Band Neutrophils % Lymphocytes % (Manual) Monocytes % (Manual) Eosinophils % (Manual) Neutrophils # (Manual) Nucleated RBCs Hypersegmented Neuts Hypogranular Neuts Reactive Lymphocytes Smudge Cells Other Cell Type Toxic Granulation Toxic Vacuolation Dohle Bodies Rafaela Rods WBC Morphology Comment Platelet Estimate Clumped Platelets Plt Morphology Comment RBC Morphology Dimorphic RBCs Polychromasia Hypochromasia Poikilocytosis Basophilic Stippling Anisocytosis Microcytosis Macrocytosis Spherocytes Pappenheimer Bodies Sickle Cells Target Cells Tear Drop Cells Ovalocytes Stomatocytes Helmet Cells [place] Bodies [place] Rings [place] Cells Acanthocytes (Spur) Rouleaux Schistocytes PT INR APTT ABG pH ABG pCO2 ABG pO2 ABG HCO3 ABG Total CO2 ABG O2 Saturation ABG Base Excess FiO2 Sodium Potassium Chloride Carbon Dioxide BUN Creatinine Estimated GFR BUN/Creatinine Ratio Glucose Lactate Calcium Iron TIBC % Saturation Transferrin Ferritin Total Bilirubin AST ALT Alkaline Phosphatase Lactate Dehydrogenase Total Protein Albumin Globulin Albumin/Globulin Ratio Lipase Procalcitonin TSH Urine RBC Urine WBC Ur Squamous Epith Cells Urine Bacteria Ur Culture Indicated? Nasal Screen MRSA (PCR) Positive for mrsa H Salicylates U Opiates 300ng/mL cut Ur Oxycodone Screen Urine Methadone Screen Acetaminophen Ur Barbiturates Screen U Tricyclic Antidepress Ur Phencyclidine Scrn Ur Amphetamines Screen U Methamphetamines Scrn Ur MDMA Scrn (Ecstasy) U Benzodiazepines Scrn Urine Cocaine Screen U Marijuana (THC) Screen Ethyl Alcohol SARS-CoV-2 (PCR) Blood Type Antibody Screen Crossmatch PFSH Medical History Anxiety Arthritis C. difficile colitis Chronic pain Colitis Compression fracture of L1 vertebra (~07/2019) COPD (chronic obstructive pulmonary disease) Depression DJD (degenerative joint disease) Fibromyalgia Fracture, tibia GI bleeding History of recurrent UTIs HLD (hyperlipidemia) Hypertension Insomnia Left foot drop Lumbar compression fracture (02/26/19) Migraines Multiple fractures Neuropathy Numbness and tingling Osteoporosis Radius fracture (08/30/17) Renal disease Surgical History H/O: hysterectomy History of surgery Hx of appendectomy Hx of cholecystectomy Hx of elbow surgery Hx of kyphoplasty (~2013) Hx of kyphoplasty (04/28/19) Hx of kyphoplasty (07/28/19) Hx of tonsillectomy Status post epidural steroid injection (03/25/19) Family History Mother No known health problems Father No known health problems Social History household members: significant other Smoking Status: Former smoker alcohol intake: current Assessment & Plan Assessment & Plan narrative: Patient is 70-year-old female with history of chronic pain due to numerous osteoporosis fractures, CKD stage III, chronic anemia and thrombocytosis presented with complaints extreme fatigue and weakness in the legs. She had bacteriuria and pyuria and was admitted with diagnosis of complicated UTI and on CT appears to have a retroperitoneal abscess. 1. Sepsis with end-organ failure -patient admitted with complicated UTI, leukocytosis with WBC 33,000 but became overly septic on Saturday morning with drop in blood pressure to 80 systolic and unresponsiveness -sofa score of 4, acidotic with pH of 7.27 on ABG, repeat lactic acid requesting -CT scan: Left retroperitoneal abscess -volume resuscitated with IV fluids and starting transfusions, BP responded to IV fluids -note diffuse crackles on lung exam may be atelectatic as there is no real evidence of volume overload and no pneumonia on CT and patient is sating well on room air -continue broad-spectrum antibiotics, as below 2. Left pyelonephritis with retroperitoneal abscess, present on admission, active -patient was treated as outpatient for pansensitive E coli UTI last month, had elevated WBC of 24.8 K on 10/07 ER visit, on this admission noted to have pyuria and bacteriuria with WBC of 33.2 K, has left flank tenderness -ultrasound: Left retro parent complex mass adjacent to left kidney -chest, abdomen and pelvis CT: Left retroperitoneal abscess read as psoas muscle abscess, on further review with radiologist and clinical findings of urinary infection, it seems more likely this originated as a left kidney abscess draining down to the psoas. -blood in urine cultures pending, repeat blood cultures ordered 10/30 -treat with meropenem 1 g IV q.12 hours renal dosed and IV vancomycin -arranged for CT-guided percutaneous drainage on Saturday -PICC line placed 10/30 as patient will need extended course IV antibiotics -NPO after midnight for CT drainage 3. Chronic thrombocytosis, present on admission, active -patient has highly elevated platelet counts dating back to at least March 2017, persistent anemia, intermittent leukocytosis -platelet count over 1 million on this admission suggestive of bone marrow malignant disorders such as myeloproliferative disorder versus reactive thrombocytosis due to chronic iron deficiency anemia or chronic infection -LDH normal, no splenomegaly was noted on ultrasound/CT -further workup including bone marrow biopsy can probably be done as outpatient with Oncology, Dr. Rousseau was contacted from the ED and states Dr Ba or Kierra can see patient 4. Chronic iron deficiency anemia, active -Patient is iron deficient likely due to chronic blood loss. She has been on Protonix and Carafate since ulcer diagnosed 4 years ago. She states she has never had a repeat endoscopy to assess healing of the ulcer yet has remained ulcer treatment medications. She does not take aspirin or NSAIDs. Her last colonoscopy was 20 years ago. However, her father at age 52 of colon cancer. -Patient needs upper and lower endoscopy to assess for to rule out malignancy and other sources of blood loss. This can be done as outpatient. 5. Acute on chronic anemia, active -patient has chronic anemia for years and is iron deficient, however she acutely dropped her hemoglobin and hematocrit on labs 10/30, from hemoglobin 9.8 to hemoglobin 6.7 -acute anemia likely due to inflammatory block -transfuse 2 units PRBC 6. History of multiple osteoporotic spinal and extremity fractures, chronic -patient states that 4 years ago she suddenly started breaking bones easily with minimal provocation, has had multiple kyphoplasties and surgeries on all 4 extremities due to fractures, which I suspect is secondary to bone marrow malignant process associated with severe thrombocytosis -continue patient on oxycodone 10 mg q.4 hours as needed per home routine, gabapentin 300 mg t.i.d., carisoprodol 350 mg t.i.d. as needed 7. History of symptomatic PACs/PVCs, chronic -on metoprolol tartrate 25 mg b.i.d. at home, discontinued now due to hypotension 8. History of bleeding peptic ulcer, chronic -denies melena/bright red blood, apparently for diagnosed with bleeding ulcer about 4 years ago, ? nonhealing, and has remained on b.i.d. pantoprazole and q.i.d. sucralfate since diagnosis -continue pantoprazole and sucralfate per home routine 9. Chronic kidney disease, moderate -creatinine 1.5 is within range of patient's prior lab values 10. Moderate to severe protein calorie malnutrition, present on admission, chronic -BMI 19.6, patient noted recent 15 lb weight loss, and appears to have generalized muscle wasting -nutrition consult DVT prophylaxis: SCDs Code status: Full code Quality VTE Deep Vein Thrombosis/Pulmonary Embolism Present on Admission: No Scores SOFA PaO2/FIO2: >=400 mmHg Platelets: >= 150 Bilirubin: < 1.2 mg/dL Hypotension: MAP < 70 mmHg [place] Coma Scale: 10-12 Renal: Creatinine 1.2-1.9 mg/dL SOFA Score: 4
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
[2020-10-30] MEDS: SUCRALFATE 1 GM TABLET PO ×3 (11:57→20:46)
[2020-10-30] MEDS: VANCOMYCIN 1,000 MG/200 ML PIGGYBACK 200 MG IV (11:57)
--- NOTE | 2020-10-30 13:51 | DI.RAD.S_ITS ---
PROCEDURE: XR CHEST 1V INDICATIONS: picc line placement TECHNIQUE: One view of the chest was acquired. COMPARISON: [facility], CR, XR CHEST 1V, 10/29/2020, 14:14. FINDINGS: Surgical changes and devices: A left arm PICC line has been placed, the tip of which projects to the superior vena cava. Lungs and pleura: Lungs are clear. No pleural effusions or pneumothorax. Mediastinum: Mediastinal contours appear normal. Heart size is normal. Bones and chest wall: No suspicious bony lesions. Overlying soft tissues appear unremarkable. IMPRESSION: Tip of PICC line projects to superior vena cava. Dictated by: David Landers M.D. on 10/30/2020 at 13:08 Approved by: David Landers M.D. on 10/30/2020 at 13:09
[2020-10-30 14:39] LABS: Lactate (Lactic Acid) 0.9 mmol/L (0.7-2.1)
--- NOTE | 2020-10-30 15:12 | PC.NURSE ---
Transfer Note Received pt to room 228 from 215 at 0800. Reports received from Joe LEE. Pt alert and oriented on arrival and able to answer questions/make needs known. SpO2 96-98% RA. Denies shortness of breath. BP 90s/50s, 3rd 500 ml bolus NS completed. ST in the low 100s with PACs. Second unit PRBCs infusing at this time, tolerated first without issue. Unable to draw labs or place additional peripheral line so order obtained for PICC line which was placed this afternoon without issue by DI nurse. Labs then drawn and sent off of PICC. Centeno placed at 0915 for accurate urine output, patent and draining clear urine. Pt receiving oxycodone for chronic pain, repositioning independently. 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 Call light within reach, using appropriately to make needs known.
[2020-10-30] MEDS: MORPHINE 2 MG/ML INJ 1 MG IV (16:01)
[2020-10-30] MEDS: SODIUM CHLORIDE 0.9% FLUSH 10 ML IV (20:47)
--- NOTE | 2020-10-30 21:20 | PC.NURSE ---
Evening shift note: Pt A/Ox4, able to make needs known, SpO2 96-100% on room air, BP 141/67, ST in the 110-140's with PAC's. 2 units of PRBCs infused today, pt tolerated without ADR. Centeno patent place for accurate I/O, draining clear yellow urine. Pt has chronic pain, medicated with oxycodone, morphine and soma. Contact isolation for MRSA in nares, will be NPO after midnight tonight for CT guided percutaneous drainage of Kidney abscess. Bed low and locked, call light within reach, no further needs at this time, will continue to monitor.
[2020-10-31] VITALS (17 sets, daily range): BP systolic 90–134; BP diastolic 54–79; PULSE 55–106; RESP 12–20; TEMP 35.9–37.4; O2SAT 95–100
[2020-10-31] MEDS: OXYCODONE IR 10 MG TABLET PO ×6 (00:37→20:05)
[2020-10-31 04:14] LABS: Add Manual Diff / Slide Review NO; Basophils Absolute Auto 100 /uL (0-100); Basophils Percent Auto 0.7 % (0-2); Eosinophils Absolute Auto 100 /uL (0-450); Eosinophils Percent Auto 0.8 % (2-4); Hemoglobin 8.7 g/dL (12.0-16.0); Lymphocytes Absolute Auto 2300 /uL (1100-4500); Lymphocytes Percent Auto 12.9 % (25-40); Mean Corpuscular HGB Conc 33.3 % (30-36); Mean Corpuscular Volume 90.2 fL (80-100); Monocytes Absolute Auto 1800 /uL (0-900); Monocytes Percent Auto 9.7 % (3-14); Neutrophils Absolute Auto 13800 /uL (1500-7000); Neutrophils Percent Auto 75.9 % (50-75); Platelet Count 684 X10^3/uL (150-400); Red Blood Cell Count 2.89 X10^6/uL (4.0-5.2); Red Cell Distribution Width 16.6 % (11.6-14.8); White Blood Cell Count 18.1 X10^3/uL (4.5-11.0)
[2020-10-31 04:19] LABS: BUN Creatinine Ratio 13.6 (6-22); Blood Urea Nitrogen 19 mg/dL (7-17); Calcium 8.6 mg/dL (8.4-10.2); Carbon Dioxide 14 mmol/L (22-32); Chloride 112 mmol/L (98-107); Estimated Glomerular Filt Rate 37.3 mL/min (>60); Glucose 108 mg/dL (80-110); HEMOLYSIS < 15 (0-50); Potassium 3.6 mmol/L (3.4-5.1); Sodium 133 mmol/L (137-145)
[2020-10-31 04:36] LABS: Procalcitonin 7.36 ng/mL (<0.5)
[2020-10-31] MEDS: carisoprodoL 350 MG TABLET PO ×4 (07:56→20:06)
[2020-10-31] MEDS: PANTOPRAZOLE 40 MG TABLET PO ×2 (07:56→20:05)
[2020-10-31] MEDS: GABAPENTIN 300 MG CAPSULE PO ×3 (07:56→20:06)
[2020-10-31] MEDS: SODIUM CHLORIDE 0.9% FLUSH 10 ML IV ×3 (07:57→20:07)
[2020-10-31] MEDS: MEROPENEM 1 GM in SODIUM CHLORIDE 0.9% 100 ML 200 ML IV ×2 (07:58→20:05)
[2020-10-31] MEDS: SUCRALFATE 1 GM TABLET PO ×4 (08:04→20:13)
[2020-10-31] MEDS: fentaNYL 100 MCG/2 ML INJ IV (09:45)
[2020-10-31] MEDS: MIDAZOLAM 2 MG/2 ML VIAL IV (09:45)
--- NOTE | 2020-10-31 10:48 | PC.NURSE ---
Rec'd pt from DI ~1035. Unable to complete CT guided aspiration due to hypotension and a run of VTach after receiving conscious sedation. Upon arrival back to to unit, pt is in SR with PACs rates 90s BP 115/60 (80) RR 19 SPO2 99% on RA. Pt is awake/alert and speaking clearly. No distress. Requesting food. General diet ordered. Call light in reach.
[2020-10-31] MEDS: VANCOMYCIN 750 MG/150 ML PIGGYBACK 150 MG IV (11:37)
--- NOTE | 2020-10-31 12:03 | PT.IIE ---
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) Surgical History (Last Reviewed 10/29/20 @ 11:14 by Cynthia Kennedy DO) H/O: hysterectomy History of surgery Hx of appendectomy Hx of cholecystectomy Hx of elbow surgery Hx of kyphoplasty (~2013) Hx of kyphoplasty (04/28/19) Hx of kyphoplasty (07/28/19) Hx of tonsillectomy Status post epidural steroid injection (03/25/19) Medical History (Last Reviewed 10/29/20 @ 11:14 by Cynthia Kennedy DO) Anxiety Arthritis C. difficile colitis Chronic pain Colitis Compression fracture of L1 vertebra (~07/2019) COPD (chronic obstructive pulmonary disease) Depression DJD (degenerative joint disease) Fibromyalgia Fracture, tibia GI bleeding History of recurrent UTIs HLD (hyperlipidemia) Hypertension Insomnia Left foot drop Lumbar compression fracture (02/26/19) Migraines Multiple fractures Neuropathy Numbness and tingling Osteoporosis Radius fracture (08/30/17) Renal disease Physical Therapy Inpatient Evaluation/Re-Eval M1 PT/OT-IP Prior Functional Status Start: 10/30/20 09:03 Freq: NEEDED Status: Active Protocol: Document 10/31/20 12:02 AW (Rec: 10/31/20 12:27 AW [id number]) Medical Review Prior Functional Status Medical History Reviewed Yes Communication WNL. Pt is an effective verbal communicator. Mobility and Gait Pt states she typically cruises furniture at home without assistive device. For stairs and for uneven terrain, her son or S.O. provide assist. Pt notes that her mobility has progressively declined over the past three weeks. She reports bilateral foot fractures ~3 months ago which limited her mobility as well. Activities of Daily Living and IADL's Pt has [employer] caregivers 140 hours per month who provide assist with dressing, bathing, food prep, cleaning, laundry. Pt reports independent with toileting. Prior Functional Level (Other details) Pt reports regular falls. Social History Household Members significant other Living Arrangements House Number of Floors (Floors) One Floor Number of Stairs To Enter/Railing? 3 YEHUDA with no rail. Home Environment Standard Height Toilet,Tub/ Shower Home Equipment Tub Transfer Bench,Hand Held Shower Additional Social History Comment Pt's bed is tall. She states she faces the bed and climbs in on hands and knees. She lives in [place] with her Yu .Kimber Nguyen, who is unable to provide much assist due to his own medical concerns. Her supportive son and daughter live nearby. M2 PT-IP Current Condition Start: 10/30/20 09:03 Freq: NEEDED Status: Active Protocol: Document 10/31/20 12:02 AW (Rec: 10/31/20 12:27 AW [id number]) Physical Therapy Current Condition Current Condition Evaluation Date 10/31/20 Treatment Diagnosis sepsis, UTI, generalized weakness, frequent falls Onset Date 10/29/20 Precautions Other Precautions falls; osteoporosis; contact precautions due to MRSA in nares Weight Bearing Status Weight Bearing Status Weight Bear as Tolerated Allowed Weight Bearing Amount (enter % Op note dated 05/20/20 states or #) (%) pt was WBAT following ORIF left malleolus fx nonunion. M3 PT-IP Subjective Start: 10/30/20 09:03 Freq: NEEDED Status: Active Protocol: Document 10/31/20 12:02 AW (Rec: 10/31/20 12:27 AW [id number]) Subjective Physical Therapy Visit Type Type Initial Evaluation Visit Start Time 11:30 Visit Stop Time 11:53 Total Visit Minutes 23 Number of SPECIALTY COOK Visits 0 Physical Therapy Visit Comments Patient Comments Pt is willing to participate with PT Patient Goals Return home with family support. Therapy Pain Assessment Pain When Pain Assessed During Mobility Location generalized aches / pain Scale Used not quantified Pain Management Techniques Distraction,Re-positioning M4 PT-IP Mobility and Gait Start: 10/30/20 09:03 Freq: NEEDED Status: Active Protocol: Document 10/31/20 12:02 AW (Rec: 10/31/20 12:27 AW [id number]) PT-Bed Mobility Assessment Supine to Sit Supine to Sit Standby Assistance Sit to Supine Sit to Supine Standby Assistance Scooting Scooting to Edge of Bed Standby Assistance PT-Transfer Assessment Sit to and From Stand Sit to and from Stand Contact Guard Assistance Equipment Transfer Assistive Device None,Gait Belt Orthotic/Prosthetic Devices or Brace: No Transfers Transfer Destination Bed,Chair Transfer Technique Stand Step Pivot Transfer Ability Level of Assist Contact Guard Assistance,Use of Upper Extremities Comments Mobility Comments Pt was reclined in the bed as PT arrived. She completed supine to sit SBA and stood from the bed in lowest position CGA due to unsteadiness. Asked pt about using a FWW but she refused, stating she fears falling on the frame and breaking her ribs. She transferred to the chair CGA. She stood from the chair and ambulated around the room - to the sink and to the window seat - reaching for furniture or therapist's arm along the way, requiring constant CGA to min assist. Pt prefers the bed so she transferred back to supine SBA . Pt was positioned with call light and all needs in reach, bed alarm on for safety. Gait Assessment Gait Gait Assistance Required: Contact Guard Assist,Minimum Assistance Distance (Feet) 25 Assistive Devices Assistive Device None,Gait Belt Orthotic/Prosthetic Devices or Brace: No Gait Deviations General Gait Pattern Antalgic,Decreased Stride Length,Decreased Feet Clearance,Flexed Trunk,Narrow Based Gait Factors Limiting Gait Function Factors Limiting Gait Function Decreased Activity Tolerance, Decreased Sensation,Decreased Strength,Pain,Poor Balance, Poor Safety Awareness Comments Gait Comments Pt takes small narrow steps with constant need for CGA to min assist. Pt denied dizziness but was positive for LOB x 2 during short bout ambulation. HR steady in the low-mid 90's during activity. Stair Climbing Assessment Comments Stair Climbing Comments Not assessed. PT-Balance Assessment Sitting Balance and Reactions Static Sitting Balance Ability Good Dynamic Sitting Balance Ability Good Standing Balance and Reactions Static Standing Balance Ability Fair Dynamic Standing Balance Ability Fair Device Used no AD M5 PT-IP Objective Assessments Start: 10/30/20 09:03 Freq: NEEDED Status: Active Protocol: Document 10/31/20 12:02 AW (Rec: 10/31/20 12:27 AW [id number]) Orientation Orientation/Cognition Level of Alertness Alert Orientation Name,Birthday,Month,Place, Situation Language Function Ability No Deficits Noted Safety Awareness Decreased Safety Awareness Gross Range of Motion Upper Extremity ROM Assessment Left Impaired Impairments RC injury Lower Extremity ROM Assessment Bilaterally Impaired Strength Lower Extremity Strength Assessment Bilaterally Impaired Hip 4-/5 Knee 4/5 Ankle 4-/5 Sensation Assessment Sensation Gross Sensation Left LE Impaired Light Touch Impaired Sensation Description Numbness Comments Sensation Comments Left foot numbess on exam M6 PT-IP Treatment Start: 10/30/20 09:03 Freq: NEEDED Status: Active Protocol: Document 10/31/20 12:02 AW (Rec: 10/31/20 12:27 AW [id number]) Physical Therapy Treatment Education Education Provided Safety M7 PT-IP Assessment and Plan Start: 10/30/20 09:03 Freq: NEEDED Status: Active Protocol: Document 10/31/20 12:02 AW (Rec: 10/31/20 12:27 AW [id number]) PT Summary Assessment and Plan Potential Rehabilitation Potential Good Status of Condition at Evaluation Evolving Summary Impairments Pain,ROM,Strength,Balance, Sensation,Bed Mobility, Transfers,Gait,Activity Tolerance Assessment Summary Bebe is a 70 yo woman admitted with sepsis secondary to UTI with underlying primary bone marrow pathology. Pt reports independent household mobility but admits to cruising furniture and regular, frequent falls. On evaluation, pt required CGA to min assist with transfers and ambulation without assistive device in the room. Unclear how much assist pt has at home as her significant other has multiple medical issues and pt 's children live nearby but not with her. Pt may require SNF rehab to improve strength and mobility independence prior to return home. If pt improves and discharges to home, PT recommends home health. Goals Bed Mobility Goal Independent Transfer Goal Standby Assistance Gait Goal Standby Assistance Gait Distance 100 Other Goals up/down 3 steps with no rail CGA Days to Meet Goals 8 Frequency of Treatment Frequency Of Treatment Once a Day Treatment Plan Physical Therapy Treatment Plan Bed Mobility Training,Transfer Training,Gait Training, Therapeutic Exercise,Balance Retraining,Discharge Planning, Neuromuscular Re-ed, Coordination Retraining Precautions Other Precautions falls; osteoporosis; contact precautions Recommendations To Nursing Amount of Assist Needed 1 Person Assist Discharge Recommendations PT Discharge Recommendations Home with 24/7 Assist Available,Home Health,SNF Rehab Other Discharge Recommendations SNF vs home with 24/7 assist available and HH Transportation Needs at Discharge Wheelchair/Cabulance
--- NOTE | 2020-10-31 14:08 | P.PN_ITS ---
Subjective Subjective Date Patient Seen: 10/31/20 Time Patient Seen: 13:00 Interval history: Patient is 70-year-old female with history of chronic pain due to numerous osteoporosis fractures, CKD stage III, chronic anemia and thrombocytosis presented with complaints extreme fatigue and weakness in the legs. She had bacteriuria and pyuria and was admitted with diagnosis of complicated UTI with perinephric abscess. Patient had mild hypotension improved with fluids when going for percutaneous drainage with IR today, reported SVT noted as well and procedure was avoided. Patient is starting to feel improved but still has mild nausea, abdominal pain, and fatigue. Urine cultures with willett- sensitive e. coli, will keep on meropenem given improvement today however and will re-attempt abscess drainage in the near future. Can discontinue vancomycin. Exam Vital Signs (past 8 hours): - 10/31/20 08:00 10/31/20 09:45 10/31/20 09:58 Temperature 98.8 F Pulse Rate 81 70 55 L Respiratory Rate 16 16 14 Blood Pressure 108/57 L 96/64 90/54 L Pulse Oximetry 97 98 98 10/31/20 10:24 10/31/20 12:00 Temperature 98.9 F Pulse Rate 76 88 Respiratory Rate 14 17 Blood Pressure 114/58 L 119/56 L Pulse Oximetry 99 100 Oxygen Delivery Method Room Air Oxygen Flow Rate 4 Narrative Exam Narrative: General: This is an alert thin female in no acute distress HEENT: Nontraumatic, pupils equal and reactive, EOMI, oropharynx with general poor dentition Neck: No mass, no lymphadenopathy Lungs: CTA b/l Heart: Normal S1 and S2, regular rhythm, premature beats, no murmur Abdomen: Flat, soft, nontender, no hepatomegaly, spleen tip not appreciated Extremities: Warm, dry without edema Neurological: no obvious cognitive deficits, speech normal, no leg drift, no arm drift but left arm movement limited by chronic rotator cuff tendinopathy Integument: There is a heating pad burn patch on upper back, improving. Psych: mildly anxious, but calm, copperative with stable behavior. Objective Labs Result Diagrams: 10/31/20 04:07 10/31/20 04:07 Labs: Laboratory Results - last 24 hr 10/30/20 10/30/20 10/31/20 05:43 14:20 04:07 WBC 18.1 H RBC 2.89 L Hgb 8.7 L Hct 26.0 L MCV 90.2 MCH 30.0 MCHC 33.3 RDW 16.6 H Plt Count 684 H Neut % (Auto) 75.9 H Lymph % (Auto) 12.9 L Pitkin % (Auto) 9.7 Eos % (Auto) 0.8 L Baso % (Auto) 0.7 Neut # (Auto) 48614 H Lymph # (Auto) 2300 Pitkin # (Auto) 1800 H Eos # (Auto) 100 Baso # (Auto) 100 Sodium Potassium Chloride Carbon Dioxide BUN Creatinine Estimated GFR BUN/Creatinine Ratio Glucose Lactate 0.9 Calcium Procalcitonin Crossmatch See Detail 10/31/20 04:07 WBC RBC Hgb Hct MCV MCH MCHC RDW Plt Count Neut % (Auto) Lymph % (Auto) Pitkin % (Auto) Eos % (Auto) Baso % (Auto) Neut # (Auto) Lymph # (Auto) Pitkin # (Auto) Eos # (Auto) Baso # (Auto) Sodium 133 L Potassium 3.6 Chloride 112 H Carbon Dioxide 14 L BUN 19 H Creatinine 1.40 H Estimated GFR 37.3 L BUN/Creatinine Ratio 13.6 Glucose 108 Lactate Calcium 8.6 Procalcitonin 7.36 H Crossmatch [facility] Medical History Anxiety Arthritis C. difficile colitis Chronic pain Colitis Compression fracture of L1 vertebra (~07/2019) COPD (chronic obstructive pulmonary disease) Depression DJD (degenerative joint disease) Fibromyalgia Fracture, tibia GI bleeding History of recurrent UTIs HLD (hyperlipidemia) Hypertension Insomnia Left foot drop Lumbar compression fracture (02/26/19) Migraines Multiple fractures Neuropathy Numbness and tingling Osteoporosis Radius fracture (08/30/17) Renal disease Surgical History H/O: hysterectomy History of surgery Hx of appendectomy Hx of cholecystectomy Hx of elbow surgery Hx of kyphoplasty (~2013) Hx of kyphoplasty (04/28/19) Hx of kyphoplasty (07/28/19) Hx of tonsillectomy Status post epidural steroid injection (03/25/19) Family History Mother No known health problems Father No known health problems Social History household members: significant other Smoking Status: Former smoker alcohol intake: current Assessment & Plan Assessment & Plan narrative: Patient is 70-year-old female with history of chronic pain due to numerous osteoporosis fractures, CKD stage III, chronic anemia and thrombocytosis presented with complaints extreme fatigue and weakness in the legs. She had bacteriuria and pyuria and was admitted with diagnosis of complicated UTI and on CT appears to have a retroperitoneal abscess. 1. Sepsis with end-organ failure -patient admitted with complicated UTI, leukocytosis with WBC 33,000 but then developed hypotension responsive to fluids and altered mental status which is now imrpoved. -sofa score of 4, acidotic with pH of 7.27 on ABG, repeat lactic acid requesting -CT scan: Left retroperitoneal abscess -volume resuscitated with IV fluids and starting transfusions, BP responded to IV fluids -note diffuse crackles on lung exam may be atelectatic as there is no real evidence of volume overload and no pneumonia on CT and patient is sating well on room air -continue broad-spectrum antibiotics, as below 2. Left pyelonephritis with retroperitoneal abscess, present on admission, active -patient was treated as outpatient for pansensitive E coli UTI last month, had elevated WBC of 24.8 K on 10/07 ER visit, on this admission noted to have pyuria and bacteriuria with WBC of 33.2 K, has left flank tenderness -ultrasound: Left retro parent complex mass adjacent to left kidney -chest, abdomen and pelvis CT: Left retroperitoneal abscess read as psoas muscle abscess, on further review with radiologist and clinical findings of urinary infection, it seems more likely this originated as a left kidney abscess draining down to the psoas. -blood cultures negative. Urine culture with willett-sensitive E. coli. -treat with meropenem 1 g IV q.12 hours renal dosed and IV vancomycin. Will stop vancomycin given cultures today. Continue on meropenem for now given improvement until more stable and hopefully ability to get abscess cultures. -CT-guided percutaneous drainage on planned for today however developed hypotension and tachycardia prior to procedure. Will await for further stabilization and attempt drainage in the near future. -PICC line placed 10/30 as patient will need extended course IV antibiotics 3. Chronic thrombocytosis, present on admission, active -patient has highly elevated platelet counts dating back to at least March 2017, persistent anemia, intermittent leukocytosis -platelet count over 1 million on this admission suggestive of bone marrow malignant disorders such as myeloproliferative disorder versus reactive thrombocytosis due to chronic iron deficiency anemia or chronic infection -LDH normal, no splenomegaly was noted on ultrasound/CT -further workup including bone marrow biopsy can probably be done as outpatient with Oncology, Dr. Rousseau was contacted from the ED and states Dr Ba or Kierra can see patient 4. Chronic iron deficiency anemia, active -Patient is iron deficient likely due to chronic blood loss. She has been on Protonix and Carafate since ulcer diagnosed 4 years ago. She states she has never had a repeat endoscopy to assess healing of the ulcer yet has remained ulcer treatment medications. She does not take aspirin or NSAIDs. Her last colonoscopy was 20 years ago. However, her father at age 52 of colon cancer. -Patient needs upper and lower endoscopy to assess for to rule out malignancy and other sources of blood loss. This can be done as outpatient. 5. Acute on chronic anemia, active -patient has chronic anemia for years and is iron deficient, however she acutely dropped her hemoglobin and hematocrit on labs 10/30, from hemoglobin 9.8 to hemoglobin 6.7 -acute anemia likely due to inflammatory block -transfused 2 units PRBC with improvement to Hg of 8.7 today. Will continue to follow. 6. History of multiple osteoporotic spinal and extremity fractures, chronic -patient states that 4 years ago she suddenly started breaking bones easily with minimal provocation, has had multiple kyphoplasties and surgeries on all 4 extremities due to fractures, which I suspect is secondary to bone marrow malignant process associated with severe thrombocytosis -continue patient on oxycodone 10 mg q.4 hours as needed per home routine, gabapentin 300 mg t.i.d., carisoprodol 350 mg t.i.d. as needed 7. History of symptomatic PACs/PVCs, chronic -on metoprolol tartrate 25 mg b.i.d. at home, discontinued now due to hypotension 8. History of bleeding peptic ulcer, chronic -denies melena/bright red blood, apparently for diagnosed with bleeding ulcer about 4 years ago, ? nonhealing, and has remained on b.i.d. pantoprazole and q.i.d. sucralfate since diagnosis -continue pantoprazole and sucralfate per home routine 9. Chronic kidney disease, moderate -creatinine 1.5 is within range of patient's prior lab values 10. Moderate to severe protein calorie malnutrition, present on admission, chronic -BMI 19.6, patient noted recent 15 lb weight loss, and appears to have generalized muscle wasting -nutrition consult DVT prophylaxis: SCDs Code status: Full code Quality VTE Deep Vein Thrombosis/Pulmonary Embolism Present on Admission: No
--- NOTE | 2020-10-31 17:53 | PC.NURSE ---
Addendum entered by Ivana Medrano R.N. 10/31/20 18:28: Prn Oxycodone, soma and prn iv morphine for pain. Original Note: Evening Shift Note: Pt is alert, states pain is 9/10 in neck and L shoulder. Pt oriented to self, place and day of week. Pt denies SOB, RA, SPO2 95%. Pt has been off her metoprolol d/t hypotension, will restart tonight d/t increased HR and frequent PACs. Poor appetite. Pt denies nausea. Pt states that she has not had a BM since 10/28, but did not want to take bowel meds because she has not had much to eat and feels like she will have a BM as her oral intake increases. Pt with indwelling you catheter, adequate uop. Clear, yellow urine. Pt is resting in bed, call light in reach, will notify MD with changes.
[2020-10-31] MEDS: MORPHINE 2 MG/ML INJ 1 MG IV (18:19)
[2020-10-31] MEDS: METOPROLOL ER 25 MG TABLET 12.5 MG PO (20:25)
[2020-10-31] MEDS: SODIUM CHLORIDE 0.9% 1,000 ML 100 ML IV (23:37)
[2020-11-01] VITALS (18 sets, daily range): BP systolic 109–148; BP diastolic 58–90; PULSE 89–110; RESP 14–23; TEMP 36.5–37.4; O2SAT 94–100
--- NOTE | 2020-11-01 | DI.CT.S_ITS ---
PROCEDURE: CT DRAIN SOFT TISSUE Sedation analgesia for 30 minutes. INDICATIONS: ABSCESS DRAINAGE TECHNIQUE: The indications, alternatives, benefits, risks, and possible complications of the procedure were communicated to the patient. Informed written consent from the patient was obtained and placed in the chart. Continuous EKG and hemodynamic monitoring was started by trained personnel. The patient was brought to the CT suite and in the CT table in prone position. [employer] images was obtained with localization grid. The appropriate site for percutaneous access to the abscess cavity was marked, was prepped and draped sterilely. Lidocaine was used infused local anaesthesia. Under CT guidance, a Chiba needle set was advanced to the target abscess cavity. After series dilation to 9 albanian, the 8.5 [place] pigtail catheter was inserted into the abscess cavity. Approximately 3 mL abscess fluid was sent to the left tear for Grand stain, culture and sensitivity. COMPARISON: [facility], CT, CT ABDOMEN PELVIS W CON, 10/30/2020, 8:22. FINDINGS: Biopsy site: Left posterior upper abdomen Needle: 18 g with Chiba needle; 8.5 [place] pigtail catheter. Number of passes: n.a. Medications: 1% lidocaine for local anaesthesia. IV Fentanyl and Versed for conscious sedation for 30 minutes (see nursing record). Complications: None. IMPRESSION: Successful CT-guided abscess drainage. Dictated by: Bishop Richter M.D. on 11/01/2020 at 13:09 Approved by: Bishop Richter M.D. on 11/01/2020 at 14:09
[2020-11-01] MEDS: MORPHINE 2 MG/ML INJ 1 MG IV ×5 (00:03→19:23)
[2020-11-01] MEDS: OXYCODONE IR 10 MG TABLET PO ×6 (00:40→20:57)
[2020-11-01] MEDS: SODIUM CHLORIDE 0.9% FLUSH 10 ML IV ×3 (04:20→20:58)
--- NOTE | 2020-11-01 04:46 | PC.NURSE ---
Addendum entered by Ftaou Randolph R.N. 11/01/20 05:59: Patient in SR/ST throughout night. BP 132/60. HR with activity up to 105. Patient awake and reporting back and neck 45 minutes after Morphine. Patient requesting oxycodone. Same given per EMAR. Patient sleeping on recheck 30 minutes after administration. Patient had 750 ml clear yellow urine per you cath. Original Note: Patient sleeping at intervals during the night. Patient states she usually doesn't take last dose of Soma until she is ready to go to sleep. Pt states she didn't know 2000 dose was her fourth dose. Will advise oncoming staff regarding pt wishes. Patient requesting Morphne IV for pain. States pain is 8-9/10. Medicated with Morphine and states reduces pain for a short period of time. Patient requesting to sit in recliner. One person stand-by assist to the recliner. Pt requesting oxycodone 10 mg po. Patient returned to bed after sitting in the recliner for approximately 30 minutes. Patient sleeping after return to bed.
[2020-11-01 04:47] LABS: Add Manual Diff / Slide Review YES; Hematocrit 26.7 % (36-46); Hemoglobin 8.7 g/dL (12.0-16.0); Mean Corpuscular HGB Conc 32.4 % (30-36); Mean Corpuscular Hemoglobin 29.2 PG (26-34); Mean Corpuscular Volume 90.1 fL (80-100); Platelet Count 637 X10^3/uL (150-400); Red Blood Cell Count 2.97 X10^6/uL (4.0-5.2); Red Cell Distribution Width 17.3 % (11.6-14.8)
[2020-11-01 04:52] LABS: BUN Creatinine Ratio 15.7 (6-22); Blood Urea Nitrogen 19 mg/dL (7-17); Calcium 8.8 mg/dL (8.4-10.2); Carbon Dioxide 16 mmol/L (22-32); Chloride 112 mmol/L (98-107); Estimated Glomerular Filt Rate 44.1 mL/min (>60); Glucose 117 mg/dL (80-110); HEMOLYSIS < 15 (0-50); Potassium 3.6 mmol/L (3.4-5.1); Sodium 135 mmol/L (137-145)
[2020-11-01 05:09] LABS: Procalcitonin 3.74 ng/mL (<0.5)
[2020-11-01 07:15] LABS: Neutrophils Absolute Manual 13280 /uL (3000-5900); Total Cells Counted 100
[2020-11-01 07:16] LABS: Anisocytosis 1+
[2020-11-01] MEDS: MEROPENEM 1 GM in SODIUM CHLORIDE 0.9% 100 ML 200 ML IV ×2 (08:25→19:24)
[2020-11-01] MEDS: carisoprodoL 350 MG TABLET PO ×4 (08:25→20:56)
[2020-11-01] MEDS: GABAPENTIN 300 MG CAPSULE PO ×3 (08:25→20:56)
[2020-11-01] MEDS: SUCRALFATE 1 GM TABLET PO ×4 (08:25→21:00)
[2020-11-01] MEDS: PANTOPRAZOLE 40 MG TABLET PO ×2 (08:26→20:56)
--- NOTE | 2020-11-01 09:46 | PM.PN.1 ---
Subjective Subjective Date Patient Seen: 11/01/20 Time Patient Seen: 09:46 Interval history: Patient is 70-year-old female with history of chronic pain due to numerous osteoporosis fractures, CKD stage III, chronic anemia and thrombocytosis presented with complaints extreme fatigue and weakness in the legs. She had bacteriuria and pyuria and was admitted with diagnosis of sepsis secondary to complicated UTI with perinephric abscess. Patient had mild hypotension improved with fluids when going for percutaneous drainage with IR yesterday, reported SVT noted as well and procedure was avoided. Patient is starting to feel improved today and denies abdominal pain but continues to feel fatigued. She was restarted on her home metoprolol at 12.5 mg daily with slight improvement in her heart rate. Urine cultures with willett-sensitive e. coli, will keep on meropenem given improvement today however and will re-attempt abscess drainage today. Exam Vital Signs (past 8 hours): - 11/01/20 04:00 11/01/20 04:06 11/01/20 08:00 Temperature 99.0 F 99.3 F Pulse Rate 93 H 100 H Respiratory Rate 15 14 Blood Pressure 132/60 123/71 Pulse Oximetry 100 100 98 Oxygen Delivery Method Room Air Oxygen Flow Rate 0 Narrative Exam Narrative: eneral: This is an alert thin female in no acute distress HEENT: Nontraumatic, pupils equal and reactive, EOMI, oropharynx with general poor dentition Neck: No mass, no lymphadenopathy Lungs: CTA b/l Heart: Normal S1 and S2, regular rhythm, premature beats, no murmur Abdomen: Flat, soft, nontender, no hepatomegaly, spleen tip not appreciated Extremities: Warm, dry without edema Neurological: no obvious cognitive deficits, speech normal, no leg drift, no arm drift but left arm movement limited by chronic rotator cuff tendinopathy Integument: There is a heating pad burn patch on upper back, improving. Psych: mildly anxious, but calm, copperative with stable behavior. Objective Labs Result Diagrams: 11/01/20 04:15 11/01/20 04:15 Labs: Laboratory Results - last 24 hr 11/01/20 11/01/20 04:15 04:15 WBC 16.0 H RBC 2.97 L Hgb 8.7 L Hct 26.7 L MCV 90.1 MCH 29.2 MCHC 32.4 RDW 17.3 H Plt Count 637 H Neut % (Auto) Not Reportable Lymph % (Auto) Not Reportable [place] % (Auto) Not Reportable Eos % (Auto) Not Reportable Baso % (Auto) Not Reportable Lymph # (Auto) Not Reportable [place] # (Auto) Not Reportable Baso # (Auto) Not Reportable Total Counted 100 Seg Neutrophils % 81.0 H Band Neutrophils % 2.0 L Lymphocytes % (Manual) 6.0 L Monocytes % (Manual) 7.0 Eosinophils % (Manual) 2.0 Basophils % (Manual) 2.0 H Neutrophils # (Manual) 83802 H RBC Morphology See below Anisocytosis 1+ H Sodium 135 L Potassium 3.6 Chloride 112 H Carbon Dioxide 16 L BUN 19 H Creatinine 1.21 H Estimated GFR 44.1 L BUN/Creatinine Ratio 15.7 Glucose 117 H Calcium 8.8 Procalcitonin 3.74 H PFSH Medical History Anxiety Arthritis C. difficile colitis Chronic pain Colitis Compression fracture of L1 vertebra (~07/2019) COPD (chronic obstructive pulmonary disease) Depression DJD (degenerative joint disease) Fibromyalgia Fracture, tibia GI bleeding History of recurrent UTIs HLD (hyperlipidemia) Hypertension Insomnia Left foot drop Lumbar compression fracture (02/26/19) Migraines Multiple fractures Neuropathy Numbness and tingling Osteoporosis Radius fracture (08/30/17) Renal disease Surgical History H/O: hysterectomy History of surgery Hx of appendectomy Hx of cholecystectomy Hx of elbow surgery Hx of kyphoplasty (~2013) Hx of kyphoplasty (04/28/19) Hx of kyphoplasty (07/28/19) Hx of tonsillectomy Status post epidural steroid injection (03/25/19) Family History Mother No known health problems Father No known health problems Social History household members: significant other Smoking Status: Former smoker alcohol intake: current Assessment & Plan Assessment & Plan narrative: Patient is 70-year-old female with history of chronic pain due to numerous osteoporosis fractures, CKD stage III, chronic anemia and thrombocytosis presented with complaints extreme fatigue and weakness in the legs. She had bacteriuria and pyuria and was admitted with diagnosis of sepsis secondary complicated UTI and on CT appears to have a retroperitoneal abscess. Hopefully to go for IR drainage today. 1. Sepsis with end-organ failure -patient admitted with complicated UTI, leukocytosis with WBC 33,000 but then developed hypotension responsive to fluids and altered mental status which is now improved. WBC down to 16K today, Plt count from >1M to 637K today. Procalcitonin declining appropriately on antitbiotic therapy. -sofa score of 4, acidotic with pH of 7.27 on ABG. -CT scan: Left retroperitoneal abscess -initially started on meropenem and vancomycin. On HD #1 vancomycin was discontinued as cultures were growing E. Coli. Will continue on meropenem until IR abscess culture. Urine cultures with willett-sensitive E. coli. 2. Left pyelonephritis with retroperitoneal abscess, present on admission, active -patient was treated as outpatient for pansensitive E coli UTI last month, had elevated WBC of 24.8 K on 10/07 ER visit, on this admission noted to have pyuria and bacteriuria with WBC of 33.2 K, has left flank tenderness -ultrasound: Left retroperitoneal complex mass adjacent to left kidney -chest, abdomen and pelvis CT: Left retroperitoneal abscess read as psoas muscle abscess, on further review with radiologist and clinical findings of urinary infection, it seems more likely this originated as a left kidney abscess draining down to the psoas. -blood cultures negative. Urine culture with willett-sensitive E. coli. -treated with meropenem 1 g IV q.12 hours renal dosed and IV vancomycin initially. Stopped vancomycin yesterday given cultures. Continue on meropenem for now given improvement until more stable and hopefully ability to get abscess cultures today. -CT-guided percutaneous drainage on planned for today. Yesterday during initial attempt she developed hypotension and tachycardia prior to procedure. Tachycardia has improved with re-initiation of home metoprolol, albeit at a lower dosing given sepsis. -PICC line placed 10/30 as patient will need extended course IV antibiotics 3. Chronic thrombocytosis, present on admission, active -patient has highly elevated platelet counts dating back to at least March 2017, persistent anemia, intermittent leukocytosis -platelet count over 1 million on this admission suggestive of bone marrow malignant disorders such as myeloproliferative disorder versus reactive thrombocytosis due to chronic iron deficiency anemia or chronic infection -LDH normal, no splenomegaly was noted on ultrasound/CT -further workup including bone marrow biopsy can be done as outpatient with Oncology as her platelet count is improving with treatment of her infection, raising the likelihood of reactive etiology. 4. Chronic iron deficiency anemia, active -Patient is iron deficient likely due to chronic blood loss. She has been on Protonix and Carafate since ulcer diagnosed 4 years ago. She states she has never had a repeat endoscopy to assess healing of the ulcer yet has remained ulcer treatment medications. She does not take aspirin or NSAIDs. Her last colonoscopy was 20 years ago. However, her father at age 52 of colon cancer. -Patient should have upper and lower endoscopy to assess for to rule out malignancy and other sources of blood loss. This can be done as outpatient. 5. Acute on chronic anemia, active -patient has chronic anemia for years and is iron deficient, however she acutely dropped her hemoglobin and hematocrit on labs 10/30, from hemoglobin 9.8 to hemoglobin 6.7 -acute anemia likely due to inflammatory block -transfused 2 units PRBC with improvement to Hg of 8.7 today. Will continue to follow. 6. History of multiple osteoporotic spinal and extremity fractures, chronic -patient states that 4 years ago she suddenly started breaking bones easily with minimal provocation, has had multiple kyphoplasties and surgeries on all 4 extremities due to fractures, which I suspect is secondary to bone marrow malignant process associated with severe thrombocytosis -continue patient on oxycodone 10 mg q.4 hours as needed per home routine, gabapentin 300 mg t.i.d., carisoprodol 350 mg t.i.d. as needed 7. History of symptomatic PACs/PVCs, chronic -on metoprolol tartrate 25 mg b.i.d. at home, discontinued initially due to hypotension, resumed for tachycardia, stable on 12.5 mg at night, consider increasing to BID if blood pressures remain controlled. 8. History of bleeding peptic ulcer, chronic -denies melena/bright red blood, apparently for diagnosed with bleeding ulcer about 4 years ago, ? nonhealing, and has remained on b.i.d. pantoprazole and q.i.d. sucralfate since diagnosis -continue pantoprazole and sucralfate per home routine 9. Chronic kidney disease stage III, possible acute kidney injury -creatinine 1.5 on admission is within range of patient's prior lab values, improved to 1.21 today. Lowest outpatient creatinine appears to be around 1.2. 10. Moderate to severe protein calorie malnutrition, present on admission, chronic -BMI 19.6, patient noted recent 15 lb weight loss, and appears to have generalized muscle wasting -nutrition consult DVT prophylaxis: SCDs Code status: Full code Quality VTE Deep Vein Thrombosis/Pulmonary Embolism Present on Admission: No
[2020-11-01] MEDS: MIDAZOLAM 2 MG/2 ML VIAL 1 MG IV (10:51)
[2020-11-01] MEDS: fentaNYL 100 MCG/2 ML INJ 50 MCG IV (10:51)
--- NOTE | 2020-11-01 12:26 | DIET.PN ---
Dietary Progress Note Assessment: 70y F c severe osteoporosis c numerous chronic compression fractures, chronic pain, chronic anemia, CKD3, frequent UTIs admitted for fatigue, weakness in the legs and UTI referred to nutrition for poor appetite and recent weight loss. HT: 154.9cm WT: 46.9kg (-4.3% in 6w) UBW: 50-55kg BMI: 19 (severe for age) Labs:hgb 8.7 L, Cr 1.21 H, eGFR 44 L, procalcitonin 3.74 H MNA: 7 malnourished Jaswant: 17 @ risk for skin breakdown Pt reports difficulty maintaining weight it just falls off me despite trying to gain weight via fast food diet. Nutrition Diagnosis: Moderate Acute on Chronic Malnutrition r/t reduced appetite aeb BMI 19, unintentional weight loss of 4.3% in 6w and 15% in 2y, pt states she has trouble maintaining 108# weight, pt reports her chronic pain makes it difficult to focus on food, pt followed by pain clinic for severe osteoporosis c numerous fractures. Interventions: 1. Recc pt start drinking ONS Ensure Enlive once daily to support weight regain which will provide 21% kcal and 40% protein needs. 2. Provided pt high kcal/high protein MNT c caveat that she aim for 50g PRO/d to support renal fxn. Diet Order: General EER: 1650kcal (35kcal/kg per PCM), 50g PRO (1g/kg PCM renal) Pt Goal: Pt will consume 1 ONS Ensure Enlive daily. Pt will regain weight to stabilize at 110# within 8w through ONS and regular, nutrient dense, high kcal meals. Monitoring/Evaluations: POs, weight
--- NOTE | 2020-11-01 12:46 | PT-IP ANOTE ---
checked on pt and pt refused PT. nurse stated that pt just got back from a procedure. will check again later today.
--- NOTE | 2020-11-01 13:42 | PT.IPTN ---
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 M3 PT-IP Subjective Start: 10/30/20 09:03 Freq: NEEDED Status: Active Protocol: Document 11/01/20 13:42 AB (Rec: 11/01/20 14:22 AB [email or web address]) Subjective Physical Therapy Visit Type Type Treatment Note Visit Start Time 13:42 Visit Stop Time 13:52 Total Visit Minutes 10 Number of DIRECTOR OF PUBLIC SAFETY Visits 0 Physical Therapy Visit Comments Patient Comments pt agreed to ambulate with PT but refused to use any AD M4 PT-IP Mobility and Gait Start: 10/30/20 09:03 Freq: NEEDED Status: Active Protocol: Document 11/01/20 13:42 AB (Rec: 11/01/20 14:22 AB [email or web address]) PT-Transfer Assessment Sit to and From Stand Sit to and from Stand Contact Guard Assistance,Use of Upper Extremities Equipment Transfer Assistive Device Gait Belt Orthotic/Prosthetic Devices or Brace: No Comments Mobility Comments pt sitting on chair. agreed to do ambulation. refused to use a FWW or a SPC. completed sit to stand CGA and ambulated in room H[employer] WORK[employer] CGA ~ 25 ft and sat back on chair. refused further ambulation. chair alarm on. call light and table placed within reach. Gait Assessment Gait Gait Assistance Required: Contact Guard Assist Distance (Feet) 25 Able to Maintain Weight Bearing Status Yes During Gait Assistive Devices Assistive Device None,Gait Belt Orthotic/Prosthetic Devices or Brace: No Gait Deviations General Gait Pattern Antalgic,Decreased Stride Length,Decreased Feet Clearance Factors Limiting Gait Function Factors Limiting Gait Function Decreased Activity Tolerance, Decreased Sensation,Decreased Strength,Difficulty Following Directions,Pain,Poor Balance, Poor Safety Awareness M5 PT-IP Objective Assessments Start: 10/30/20 09:03 Freq: NEEDED Status: Active Protocol: Document 10/31/20 12:02 AW (Rec: 10/31/20 12:27 AW [id number]) Orientation Orientation/Cognition Level of Alertness Alert Orientation Name,Birthday,Month,Place, Situation Language Function Ability No Deficits Noted Safety Awareness Decreased Safety Awareness Gross Range of Motion Upper Extremity ROM Assessment Left Impaired Impairments RC injury Lower Extremity ROM Assessment Bilaterally Impaired Strength Lower Extremity Strength Assessment Bilaterally Impaired Hip 4-/5 Knee 4/5 Ankle 4-/5 Sensation Assessment Sensation Gross Sensation Left LE Impaired Light Touch Impaired Sensation Description Numbness Comments Sensation Comments Left foot numbess on exam M6 PT-IP Treatment Start: 10/30/20 09:03 Freq: NEEDED Status: Active Protocol: Document 11/01/20 13:42 AB (Rec: 11/01/20 14:22 AB [email or web address]) Physical Therapy Treatment Education Education Provided Safety M7 PT-IP Assessment and Plan Start: 10/30/20 09:03 Freq: NEEDED Status: Active Protocol: Document 11/01/20 13:42 AB (Rec: 11/01/20 14:22 AB [email or web address]) PT Summary Assessment and Plan Potential Rehabilitation Potential Good Summary Impairments Pain,ROM,Strength,Balance, Coordination,Sensation,Tone, Cognition,Bed Mobility, Transfers,Gait,Activity Tolerance Progress Towards Goals Slow Progress due to Activity Tolerance Assessment Summary pt requiring CGA with mobility but with decrease activity tolerance. pt stated that her significant other will be able to assist her. pt may go home when medically stable. Goals Bed Mobility Goal Independent Transfer Goal Standby Assistance Gait Goal Standby Assistance Gait Distance 100 Other Goals up/down 3 steps with no rail CGA Days to Meet Goals 10 Frequency of Treatment Frequency Of Treatment Once a Day Treatment Plan Physical Therapy Treatment Plan Bed Mobility Training,Transfer Training,Gait Training, Therapeutic Exercise,Balance Retraining,Discharge Planning, Neuromuscular Re-ed, Coordination Retraining Precautions Other Precautions falls Recommendations To Nursing Amount of Assist Needed 1 Person Assist Discharge Recommendations PT Discharge Recommendations Home with Assistance,Home Health
--- NOTE | 2020-11-01 14:56 | PC.NURSE ---
Pt has chronic pain to neck, back and hips. She consistently rates her pain greater than 7. She states her pain is at baseline. She is on her home dose of oxycodone which she takes consistently q4h. She states this is helpful in relieving her pain but continues to rate her pain 7-9/10 post med administration. She has declined any non pharm pain management interventions such as ice, heat, repositioning, stretches, mobility. Reported to Dr. Bains.
[2020-11-01] MEDS: METOPROLOL ER 25 MG TABLET 12.5 MG PO (20:57)
[2020-11-02] VITALS (12 sets, daily range): BP systolic 122–164; BP diastolic 63–84; PULSE 93–114; RESP 10–27; TEMP 36.6–38.2; O2SAT 96–100
--- NOTE | 2020-11-02 05:20 | PC.NURSE ---
2300 Start of shift, Pt is calling out, making repeated attempts to get OOB. No recall of being in hospital. 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 I need my pain meds Pt appears drowsy, unable to stay awake during conversation or assessment with this RN. Explained holding off on pain control until patient is more alert for safety. This upset Pt briefly, but within 5 minutes of leaving room, Pt asleep, even , unlabored respirations. Allowed to sleep, later in shift, Pt wakes and is significantly less confused. Reorients to hospital and holding a steady gaze. Drain to L flank with purulent drainage. 1PA to BSC. BA active, call light in reach.
[2020-11-02 05:44] LABS: Add Manual Diff / Slide Review NO; Basophils Absolute Auto 100 /uL (0-100); Basophils Percent Auto 0.9 % (0-2); Eosinophils Absolute Auto 300 /uL (0-450); Eosinophils Percent Auto 2.6 % (2-4); Hematocrit 27.6 % (36-46); Hemoglobin 8.9 g/dL (12.0-16.0); Lymphocytes Absolute Auto 1200 /uL (1100-4500); Lymphocytes Percent Auto 10.3 % (25-40); Mean Corpuscular HGB Conc 32.4 % (30-36); Mean Corpuscular Volume 89.4 fL (80-100); Monocytes Absolute Auto 1000 /uL (0-900); Monocytes Percent Auto 8.3 % (3-14); Neutrophils Absolute Auto 9000 /uL (1500-7000); Neutrophils Percent Auto 77.9 % (50-75); Platelet Count 616 X10^3/uL (150-400); Red Blood Cell Count 3.09 X10^6/uL (4.0-5.2); Red Cell Distribution Width 17.2 % (11.6-14.8); White Blood Cell Count 11.6 X10^3/uL (4.5-11.0)
[2020-11-02 05:47] LABS: BUN Creatinine Ratio 11.4 (6-22); Blood Urea Nitrogen 14 mg/dL (7-17); Calcium 9.1 mg/dL (8.4-10.2); Carbon Dioxide 19 mmol/L (22-32); Chloride 109 mmol/L (98-107); Estimated Glomerular Filt Rate 43.3 mL/min (>60); Glucose 108 mg/dL (80-110); HEMOLYSIS < 15 (0-50); Potassium 4.1 mmol/L (3.4-5.1); Sodium 134 mmol/L (137-145)
[2020-11-02 06:04] LABS: Procalcitonin 2.59 ng/mL (<0.5)
[2020-11-02] MEDS: GABAPENTIN 300 MG CAPSULE PO ×3 (08:31→20:15)
[2020-11-02] MEDS: MEROPENEM 1 GM in SODIUM CHLORIDE 0.9% 100 ML 200 ML IV ×2 (08:31→20:28)
[2020-11-02] MEDS: polyethylene glycoL 3350 17 GM POWD.PACK PO (08:31)
[2020-11-02] MEDS: carisoprodoL 350 MG TABLET PO ×4 (08:31→21:55)
[2020-11-02] MEDS: PANTOPRAZOLE 40 MG TABLET PO ×2 (08:32→22:14)
[2020-11-02] MEDS: SODIUM CHLORIDE 0.9% FLUSH 10 ML IV ×2 (08:32→22:11)
[2020-11-02] MEDS: SUCRALFATE 1 GM TABLET PO ×4 (08:33→22:10)
[2020-11-02] MEDS: OXYCODONE IR 10 MG TABLET PO ×5 (08:33→23:36)
--- NOTE | 2020-11-02 09:31 | PT.IPTN ---
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 M3 PT-IP Subjective Start: 10/30/20 09:03 Freq: NEEDED Status: Active Protocol: Document 11/02/20 09:07 SP (Rec: 11/02/20 11:36 SP [id number]) Subjective Physical Therapy Visit Type Type Treatment Note Visit Start Time 09:07 Visit Stop Time 09:31 Total Visit Minutes 24 Notes Vitals taken during tx: supine 138/73 HR 110 post mobility 158/78 HR 107, unable acquire SaO2 (not distressed or SOB). Number of OSTRICH FARMER Visits 1 Physical Therapy Visit Comments Patient Comments Pt agreeable to work with therapy. I don't know what's wrong with me today but want to do as much as I can. Therapy Pain Assessment Pain Present Pain Present Denied Pain M4 PT-IP Mobility and Gait Start: 10/30/20 09:03 Freq: NEEDED Status: Active Protocol: Document 11/02/20 09:07 SP (Rec: 11/02/20 11:36 SP [id number]) PT-Bed Mobility Assessment Supine to Sit Supine to Sit Maximum Assistance,1 Person Assistance,Bedrails Scooting Scooting to Edge of Bed Contact Guard Assistance, Minimal Assistance PT-Transfer Assessment Sit to and From Stand Sit to and from Stand Minimal Assistance,1 Person Assistance,Use of Upper Extremities Equipment Transfer Assistive Device Gait Belt,Front Wheeled Walker Orthotic/Prosthetic Devices or Brace: No Transfers Transfer Destination Chair Transfer Technique Pt ambulated using FWW Transfer Ability Level of Assist Minimal Assistance,Use of Upper Extremities Comments Mobility Comments Pt completed supine>sitting Max A x1 with support to pull from therapist hand and max verbal/contact cuing UE WB on bed self mobility, scoot to EOB CG- Min A for trunk support due to occasional retro lean with cuing for forward locomotion to get feet on floor improve sitting balance. Sat EOB SBA with BUE support. Sit>stand Min A with cuing for UE push from bed, unsteady ELECTRICIAN'S HELPER Mod- Max A for stability improved w/ FWW Min A, ambulated to sink then single step, ascend/descend 1 step Mod-Max A ELECTRICIAN'S HELPER, returned to chair Min A using FWW. Cued to step pivot fully and reach back for safe stand>sit Min A and assist reposition fWW back with her fully. Pt scooted back with pillow support and requried Min A for sitting trunk control and cuing eyes open for self spacial posture awareness. Nurse entered room stating not to fully lay back in chair due to needing to assess back Nephrenic tubing, education nurse pt has poor sitting balance today and for safety needs to be fully back in chair and contact- Min A for sitting balance and may need more support of [address] to [address]oot all way back, short stature, nurse stated can complete and request further staff support if needed. Pt had chair alarm on, nurse stated will provie call light and all needs when done. Nurse in room assisting pt when left. Gait Assessment Gait Gait Assistance Required: Contact Guard Assist,Minimum Assistance Distance (Feet) 20 Able to Maintain Weight Bearing Status Yes During Gait Assistive Devices Assistive Device Gait Belt,Front Wheeled Walker Orthotic/Prosthetic Devices or Brace: No Gait Deviations General Gait Pattern Antalgic,Decreased Stride Length,Decreased Feet Clearance,Flexed Trunk,Lateral Trunk Lean,Narrow Based Gait Factors Limiting Gait Function Factors Limiting Gait Function Decreased Activity Tolerance, Decreased Strength,Difficulty Following Directions,Poor Balance,Poor Safety Awareness Comments Gait Comments Gait at bedside ELECTRICIAN'S HELPER required increased support Mod A due to retro and lateral lean assist for stability, improved with BUE FWW support CCG- Min A modified step over step patterning and intermittent cuing for obstacle mgt Min A PRN and keeping eyes open with Min A x1 for trunk balance as needed. Stair Climbing Assessment Evaluation Level of Assist On Stairs Moderate Assistance,1 Person Assistance Devices Stair Climbing Assistive Devices None Technique/Endurance Stair Climbing Direction Ascend and Descend Stair Climbing Technique Step to Step Number of Steps Climbed 1 Stair Climbing Set # Repetitions (reps) 1 Comments Stair Climbing Comments Completed ELECTRICIAN'S HELPER ascend/descend 1 step Mod A with max cuing for sequencing LEs while looked at LE positioning self awareness and trunk wt shift guidence for balance support, unable to progress further 3 steps has at home due to LOB ELECTRICIAN'S HELPER at bottom of step, CGA after provided FWW support. PT-Balance Assessment Sitting Balance and Reactions Static Sitting Balance Ability Poor Dynamic Sitting Balance Ability Poor Standing Balance and Reactions Static Standing Balance Ability Poor Dynamic Standing Balance Ability Poor Device Used FWW M5 PT-IP Objective Assessments Start: 10/30/20 09:03 Freq: NEEDED Status: Active Protocol: Document 10/31/20 12:02 AW (Rec: 10/31/20 12:27 AW [id number]) Orientation Orientation/Cognition Level of Alertness Alert Orientation Name,Birthday,Month,Place, Situation Language Function Ability No Deficits Noted Safety Awareness Decreased Safety Awareness Gross Range of Motion Upper Extremity ROM Assessment Left Impaired Impairments RC injury Lower Extremity ROM Assessment Bilaterally Impaired Strength Lower Extremity Strength Assessment Bilaterally Impaired Hip 4-/5 Knee 4/5 Ankle 4-/5 Sensation Assessment Sensation Gross Sensation Left LE Impaired Light Touch Impaired Sensation Description Numbness Comments Sensation Comments Left foot numbess on exam M6 PT-IP Treatment Start: 10/30/20 09:03 Freq: NEEDED Status: Active Protocol: Document 11/02/20 09:07 SP (Rec: 11/02/20 11:36 SP [id number]) Physical Therapy Treatment Education Education Provided Safety M7 PT-IP Assessment and Plan Start: 10/30/20 09:03 Freq: NEEDED Status: Active Protocol: Document 11/02/20 09:07 SP (Rec: 11/02/20 11:36 SP [id number]) PT Summary Assessment and Plan Potential Rehabilitation Potential Good Status of Condition at Evaluation Evolving Summary Impairments Pain,ROM,Strength,Balance, Coordination,Sensation,Tone, Cognition,Bed Mobility, Transfers,Gait,Activity Tolerance Progress Towards Goals Slow Progress due to Activity Tolerance Assessment Summary Pt required increased physical assist Mni- Max A this tx, required use of FWW for increased self support during transfer and gait with max cuing for eyes open for safety during mobility and assist for trunk balance support. Unsafe ascend/descend 1/3 step has at home ELECTRICIAN'S HELPER Mod- Max A and Max cuing for sequencing LE/ trunk wt shift awareness. End of tx required increased sitting support in chair for safety. Recommending further acute skilled rehab to progress strength and independence in mobility using FWW. Will continue to reassess mobility. Goals Bed Mobility Goal Independent Transfer Goal Standby Assistance Gait Goal Standby Assistance Gait Distance 100 Other Goals up/down 3 steps with no rail CGA Days to Meet Goals 10 Frequency of Treatment Frequency Of Treatment Once a Day Treatment Plan Physical Therapy Treatment Plan Bed Mobility Training,Transfer Training,Gait Training, Therapeutic Exercise,Balance Retraining,Discharge Planning, Neuromuscular Re-ed, Coordination Retraining Other Recommendations and Next Treatment Bed mobility, transfers, gait, Focus 3 step stair mgt with ELECTRICIAN'S HELPER if able and safe. Continue use fww. Precautions Other Precautions falls; osteoporosis; contact precautions Recommendations To Nursing Amount of Assist Needed Standby Assistance Discharge Recommendations PT Discharge Recommendations Home with 24/7 Assist Available,Home Health,SNF Rehab Other Discharge Recommendations SNF vs home w/ 24/7 assist available and HH Equipment Needed for Home Before FWW if not safe w/ 4WW. Discharge Transportation Needs at Discharge Wheelchair/Cabulance
[2020-11-02] MEDS: MORPHINE 2 MG/ML INJ 1 MG IV (14:19)
--- NOTE | 2020-11-02 14:55 | P.PN_ITS ---
Subjective Subjective Date Patient Seen: 11/02/20 Time Patient Seen: 14:56 Interval history: Patient is 70-year-old female with history of chronic pain due to numerous osteoporosis fractures, CKD stage III, chronic anemia and thrombocytosis presented with complaints extreme fatigue and weakness in the legs. She had bacteriuria and pyuria and was admitted with diagnosis of sepsis secondary to complicated UTI with perinephric abscess. Patient had mild hypotension improved with fluids when going for percutaneous drainage with IR yesterday, reported SVT noted as well and procedure was avoided. Patient is starting to feel improved today and denies abdominal pain but continues to feel fatigued. She was restarted on her home metoprolol at 12.5 mg daily with slight improvement in her heart rate. Urine cultures with willett-sensitive e. coli, will keep on meropenem given improvement today however and will re-attempt abscess drainage today. Exam Vital Signs (past 8 hours): - 11/02/20 08:00 11/02/20 12:00 Temperature 100.7 F H 98.5 F Pulse Rate 113 H 95 H Respiratory Rate 20 16 Blood Pressure 153/72 H 124/63 Pulse Oximetry 96 99 Fraction of Inspired Oxygen 20 Oxygen Delivery Method Room Air Oxygen Flow Rate 0 Narrative Exam Narrative: General: This is an alert thin female in no acute distress HEENT: Nontraumatic, pupils equal and reactive, EOMI, oropharynx with general poor dentition Neck: No mass, no lymphadenopathy Lungs: CTA b/l Heart: Normal S1 and S2, regular rhythm, premature beats, no murmur Abdomen: Flat, soft, nontender, no hepatomegaly, spleen tip not appreciated Extremities: Warm, dry without edema Neurological: no obvious cognitive deficits, speech normal, no leg drift, no arm drift but left arm movement limited by chronic rotator cuff tendinopathy Integument: There is a heating pad burn patch on upper back, improving. Psych: mildly anxious, but calm, copperative with stable behavior. Objective Labs Result Diagrams: 11/02/20 05:10 11/02/20 05:10 Labs: Laboratory Results - last 24 hr 11/02/20 11/02/20 05:10 05:10 WBC 11.6 H RBC 3.09 L Hgb 8.9 L Hct 27.6 L MCV 89.4 MCH 29.0 MCHC 32.4 RDW 17.2 H Plt Count 616 H Neut % (Auto) 77.9 H Lymph % (Auto) 10.3 L [place] % (Auto) 8.3 Eos % (Auto) 2.6 Baso % (Auto) 0.9 Neut # (Auto) 9000 H Lymph # (Auto) 1200 [place] # (Auto) 1000 H Eos # (Auto) 300 Baso # (Auto) 100 Sodium 134 L Potassium 4.1 Chloride 109 H Carbon Dioxide 19 L BUN 14 Creatinine 1.23 H Estimated GFR 43.3 L BUN/Creatinine Ratio 11.4 Glucose 108 Calcium 9.1 Procalcitonin 2.59 H PFSH Medical History Anxiety Arthritis C. difficile colitis Chronic pain Colitis Compression fracture of L1 vertebra (~07/2019) COPD (chronic obstructive pulmonary disease) Depression DJD (degenerative joint disease) Fibromyalgia Fracture, tibia GI bleeding History of recurrent UTIs HLD (hyperlipidemia) Hypertension Insomnia Left foot drop Lumbar compression fracture (02/26/19) Migraines Multiple fractures Neuropathy Numbness and tingling Osteoporosis Radius fracture (08/30/17) Renal disease Surgical History H/O: hysterectomy History of surgery Hx of appendectomy Hx of cholecystectomy Hx of elbow surgery Hx of kyphoplasty (~2013) Hx of kyphoplasty (04/28/19) Hx of kyphoplasty (07/28/19) Hx of tonsillectomy Status post epidural steroid injection (03/25/19) Family History Mother No known health problems Father No known health problems Social History household members: significant other Smoking Status: Former smoker alcohol intake: current Assessment & Plan Assessment & Plan narrative: Patient is 70-year-old female with history of chronic pain due to numerous osteoporosis fractures, CKD stage III, chronic anemia and thrombocytosis presented with complaints extreme fatigue and weakness in the legs. She had bacteriuria and pyuria and was admitted with diagnosis of sepsis secondary complicated UTI and on CT appears to have a retroperitoneal abscess. Now s/p IR drainage on 11/01 with drain placement. 1. Sepsis with end-organ failure -patient admitted with complicated UTI, leukocytosis with WBC 33,000 but then developed hypotension responsive to fluids and altered mental status which is now improved. WBC down to 16K today, Plt count from >1M to 637K today. Procalcitonin declining appropriately on antitbiotic therapy. -sofa score of 4, acidotic with pH of 7.27 on ABG. -CT scan: Left retroperitoneal abscess -initially started on meropenem and vancomycin. On HD #1 vancomycin was discontinued as cultures were growing E. Coli. Will continue on meropenem until IR abscess culture. Urine cultures with willett-sensitive E. coli. 2. Left pyelonephritis with retroperitoneal abscess, present on admission, active -patient was treated as outpatient for pansensitive E coli UTI last month, had elevated WBC of 24.8 K on 10/07 ER visit, on this admission noted to have pyuria and bacteriuria with WBC of 33.2 K, has left flank tenderness -ultrasound: Left retroperitoneal complex mass adjacent to left kidney -chest, abdomen and pelvis CT: Left retroperitoneal abscess read as psoas muscle abscess, on further review with radiologist and clinical findings of urinary infection, it seems more likely this originated as a left kidney abscess draining down to the psoas. -blood cultures negative. Urine culture with willett-sensitive E. coli. -treated with meropenem 1 g IV q.12 hours renal dosed and IV vancomycin initially. Stopped vancomycin given urine cultures. Continue on meropenem for now given improvement. Cultures growing staph unclear if this is contaminant or not. -Now s/p CT-guided percutaneous drainage on 11/01 with drain placement. Cultures with staph as of this time, unclear if this is contaminant. Consider repeat culture from drain. -PICC line placed 10/30 as patient will need extended course IV antibiotics 3. Chronic thrombocytosis, present on admission, active -patient has highly elevated platelet counts dating back to at least March 2017, persistent anemia, intermittent leukocytosis -platelet count over 1 million on this admission suggestive of bone marrow malignant disorders such as myeloproliferative disorder versus reactive thrombocytosis due to chronic iron deficiency anemia or chronic infection -LDH normal, no splenomegaly was noted on ultrasound/CT -further workup including bone marrow biopsy can be done as outpatient with Oncology as her platelet count is improving with treatment of her infection, raising the likelihood of reactive etiology. 4. Chronic iron deficiency anemia, active -Patient is iron deficient likely due to chronic blood loss. She has been on Protonix and Carafate since ulcer diagnosed 4 years ago. She states she has never had a repeat endoscopy to assess healing of the ulcer yet has remained ulcer treatment medications. She does not take aspirin or NSAIDs. Her last colonoscopy was 20 years ago. However, her father at age 52 of colon cancer. -Patient should have upper and lower endoscopy to assess for to rule out malignancy and other sources of blood loss. This can be done as outpatient. 5. Acute on chronic anemia, active -patient has chronic anemia for years and is iron deficient, however she acutely dropped her hemoglobin and hematocrit on labs 10/30, from hemoglobin 9.8 to hemoglobin 6.7 -acute anemia likely due to inflammatory block -transfused 2 units PRBC with improvement to Hg of 8.7 and remains stable at 8.9 today. 6. History of multiple osteoporotic spinal and extremity fractures, chronic -patient states that 4 years ago she suddenly started breaking bones easily with minimal provocation, has had multiple kyphoplasties and surgeries on all 4 extremities due to fractures, which I suspect is secondary to bone marrow malignant process associated with severe thrombocytosis -continue patient on oxycodone 10 mg q.4 hours as needed per home routine, gabapentin 300 mg t.i.d., carisoprodol 350 mg t.i.d. as needed 7. History of symptomatic PACs/PVCs, chronic -on metoprolol tartrate 25 mg b.i.d. at home, discontinued initially due to hypotension, resumed for tachycardia, stable on 12.5 mg at night, consider increasing to BID if blood pressures remain controlled. 8. History of bleeding peptic ulcer, chronic -denies melena/bright red blood, apparently for diagnosed with bleeding ulcer about 4 years ago, ? nonhealing, and has remained on b.i.d. pantoprazole and q.i.d. sucralfate since diagnosis -continue pantoprazole and sucralfate per home routine 9. Chronic kidney disease stage III, possible acute kidney injury, improved. -creatinine 1.5 on admission is within range of patient's prior lab values, improved to recently around 1.2. Lowest outpatient creatinine appears to be around 1.2. 10. Moderate to severe protein calorie malnutrition, present on admission, chronic -BMI 19.6, patient noted recent 15 lb weight loss, and appears to have generalized muscle wasting -nutrition consult DVT prophylaxis: can start HSQ Code status: Full code Quality VTE Deep Vein Thrombosis/Pulmonary Embolism Present on Admission: No MIPS - Admit Advanced Care Plan / Current Medications Measures: #47 ? Advanced Care Plan Clinician documentation instruction: document at admission. [] I confirmed that the patient's Advance Care Plan is present, code status is documented, or surrogate decision maker is listed in the patient?s medical record. [SATISFIES MIPS PERFORMANCE] If Yes, Stop Here [] The patient?s Advance Care plan is not present because: (select) [MIPS PERFORMANCE EXCEPTION/EXCLUSION] [] I confirmed today that the patient does not wish or was not able to name a surrogate decision maker or provide an Advance Care Plan. [] Hospice care is currently being provided or has been provided this calendar year [] I did NOT confirm today the presence of an Advance Care Plan or surrogate decision maker documented within the patient's medical record. [DOES NOT SATISFY MIPS PERFORMANCE] #130 - Documentation of Current Medications in the Medical Record Clinician documentation instruction: use macro the first time you see a patient. [] I have utilized all available immediate resources to obtain, update, or review the patient?s current medications. [SATISFIES MIPS PERFORMANCE] If Yes, Stop Here [] The patient is not eligible for medication reconciliation; the patient is in an emergent medical situation where delaying treatment would jeopardize the patient?s health. [MIPS PERFORMANCE EXCEPTION/EXCLUSION] [] I did NOT confirm, update or review the patient's current list of medications today. [DOES NOT SATISFY MIPS PERFORMANCE] MIPS - CL Central Venous Catheter Placement Measure: #76 ? Prevention of Central Venous Catheter (CVC) ? Related Bloodstream Infection Clinician documentation instruction: use macro every time you place a central line. [] All elements of Maximal Sterile Barrier Technique, including hand hygiene, skin prep, and sterile ultrasound technique (if used) were followed. [SATISFIES MIPS PERFORMANCE] If Yes, Stop Here [] If ?No?, the medical reason all elements were NOT used for medical reason [] (ex. emergent condition). [] Maximal Sterile Barrier Technique was not followed, no reason provided [DOES NOT SATISFY MIPS PERFORMANCE] MIPS - DC Heart Failure Measures: #5 - Heart Failure (HF): Angiotensin-Converting Enzyme (CHRIST) Inhibitor or Angiotensin Receptor Dennise (ARB) Therapy for Left Vent ricular Systolic Dysfunction (LVSD) and #8 - Heart Failure (HF): Beta-Dennise Therapy for Left Ventricular Systolic Dysfunction (LVSD) Clinician documentation instruction: use macro at every CHF discharge. [] The patient has current or prior documentation of left ventricular ejection fraction (LVEF) less than 40%, or moderate or severely depressed left ventricular systolic function. Answer both: [SATISFIES MIPS PERFORMANCE] [] The patient was prescribed or already taking an Angiotensin-Converting Enzyme (CHRIST) Inhibitor, or Angiotensin Receptor Dennise (ARB). [] The patient was prescribed or already taking a beta-dennise. If Yes to Both, Stop Here [] Patient not prescribed/taking: [MIPS PERFORMANCE EXCEPTION/EXCLUSION] [] CHRIST or ARB for medical/patient/system reason(s) including [] (ex. allergy, intolerance, contraindication) [] Beta-dennise for medical/patient/system reason(s) including [] (ex. allergy, intolerance, contraindication) [] Patient not prescribed/taking: [DOES NOT SATISFY MIPS PERFORMANCE] [] CHRIST or ARB, no reason given [] Beta-dennise, no reason given
--- NOTE | 2020-11-02 15:31 | CM.DPC ---
DCP/continued: Reviewed chart. Per Dr. Bains in AM rounds patient not medically stable today for discharge. Current plan is home with [facility]. GRAY TENDER placed call to [facility] to check on whether or not patient on service? Per Juanis at [facility] she previously was on service but no longer is. [facility] reports if HH needed new order and F2F will need to be obtained. F2F completed and signed by provider. Order for HH for PT/RN/OT obtained. Additional HH orders might be added depending on patient's needs? GRAY TENDER requested that MARSHA/Elizabeth coordinate HH arrangements with [facility]. D/C date unknown at this time. P: Home with [facility] caregivers and home health through [facility]. Patient will need to be provided with HH brochure prior or at time of d/c. CM team following closely. JANET Cheek
[2020-11-02] MEDS: METOPROLOL ER 25 MG TABLET 12.5 MG PO (20:12)
[2020-11-02] MEDS: HEPARIN 5,000 UNIT/ML VIAL 5000 UNIT SUBCUT (20:15)
--- NOTE | 2020-11-02 22:51 | PC.NURSE ---
Pt had relatively uneventful evening. RICHIE PICC intact/patent. Back drain intact, draining very minute brown lee colored drainage Call light w/in reach, bed alarm on for pt safety. Continue w/plan of care.
[2020-11-03] VITALS (11 sets, daily range): BP systolic 108–134; BP diastolic 55–80; PULSE 73–85; RESP 16–18; TEMP 35.8–36.6; O2SAT 94–100
[2020-11-03] MEDS: ACETAMINOPHEN 325 MG TABLET 650 MG PO ×2 (01:43→12:42)
[2020-11-03] MEDS: OXYCODONE IR 10 MG TABLET PO ×5 (04:55→20:51)
[2020-11-03 05:21] LABS: Add Manual Diff / Slide Review NO; Basophils Absolute Auto 100 /uL (0-100); Basophils Percent Auto 1.7 % (0-2); Eosinophils Absolute Auto 400 /uL (0-450); Eosinophils Percent Auto 4.9 % (2-4); Hematocrit 26.2 % (36-46); Hemoglobin 8.7 g/dL (12.0-16.0); Lymphocytes Absolute Auto 1600 /uL (1100-4500); Lymphocytes Percent Auto 18.9 % (25-40); Mean Corpuscular HGB Conc 33.2 % (30-36); Mean Corpuscular Hemoglobin 29.6 PG (26-34); Mean Corpuscular Volume 89.1 fL (80-100); Monocytes Absolute Auto 1200 /uL (0-900); Monocytes Percent Auto 13.7 % (3-14); Neutrophils Absolute Auto 5200 /uL (1500-7000); Neutrophils Percent Auto 60.8 % (50-75); Platelet Count 565 X10^3/uL (150-400); Red Blood Cell Count 2.94 X10^6/uL (4.0-5.2); White Blood Cell Count 8.5 X10^3/uL (4.5-11.0)
[2020-11-03 05:30] LABS: BUN Creatinine Ratio 10.8 (6-22); Blood Urea Nitrogen 14 mg/dL (7-17); Calcium 8.7 mg/dL (8.4-10.2); Carbon Dioxide 22 mmol/L (22-32); Chloride 105 mmol/L (98-107); Estimated Glomerular Filt Rate 40.6 mL/min (>60); Glucose 130 mg/dL (80-110); HEMOLYSIS < 15 (0-50); Potassium 3.5 mmol/L (3.4-5.1); Sodium 132 mmol/L (137-145)
--- NOTE | 2020-11-03 08:01 | CM.DPNOTE ---
Faxed face to face, fs and clinicals to [facility] on 11/03/20. Received fax confirmation. Elizabeth Latham CM Asst.
[2020-11-03] MEDS: HEPARIN 5,000 UNIT/ML VIAL 5000 UNIT SUBCUT ×2 (08:48→20:53)
[2020-11-03] MEDS: carisoprodoL 350 MG TABLET PO ×4 (08:50→20:51)
[2020-11-03] MEDS: PANTOPRAZOLE 40 MG TABLET PO ×2 (08:50→20:53)
[2020-11-03] MEDS: GABAPENTIN 300 MG CAPSULE PO ×3 (08:50→20:52)
[2020-11-03] MEDS: BISACODYL 5 MG TABLET 10 MG PO (08:50)
[2020-11-03] MEDS: MEROPENEM 1 GM in SODIUM CHLORIDE 0.9% 100 ML 200 ML IV (08:50)
[2020-11-03] MEDS: SODIUM CHLORIDE 0.9% FLUSH 10 ML IV ×2 (08:54→20:53)
[2020-11-03] MEDS: SUCRALFATE 1 GM TABLET PO ×4 (08:54→20:52)
--- NOTE | 2020-11-03 10:07 | PT.IPTN ---
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) Physical Therapy Treatment Note M2 PT-IP Current Condition Start: 10/30/20 09:03 Freq: NEEDED Status: Active Protocol: Document 10/31/20 12:02 AW (Rec: 10/31/20 12:27 AW [id number]) Physical Therapy Current Condition Current Condition Evaluation Date 10/31/20 Treatment Diagnosis sepsis, UTI, generalized weakness, frequent falls Onset Date 10/29/20 Precautions Other Precautions falls; osteoporosis; contact precautions due to MRSA in nares Weight Bearing Status Weight Bearing Status Weight Bear as Tolerated Allowed Weight Bearing Amount (enter % Op note dated 05/20/20 states or #) (%) pt was WBAT following ORIF left malleolus fx nonunion. M3 PT-IP Subjective Start: 10/30/20 09:03 Freq: NEEDED Status: Active Protocol: Document 11/03/20 10:07 AB (Rec: 11/03/20 11:07 AB [email or web address]) Subjective Physical Therapy Visit Type Type Treatment Note Visit Start Time 10:07 Visit Stop Time 10:27 Total Visit Minutes 20 Number of PRIVATE EQUITY ANALYST Visits 0 M4 PT-IP Mobility and Gait Start: 10/30/20 09:03 Freq: NEEDED Status: Active Protocol: Document 11/03/20 10:07 AB (Rec: 11/03/20 11:07 AB [email or web address]) PT-Bed Mobility Assessment Supine to Sit Supine to Sit Standby Assistance Sit to Supine Sit to Supine Standby Assistance PT-Transfer Assessment Sit to and From Stand Sit to and from Stand Standby Assistance Comments Mobility Comments completed supine to sit SBA. completed sit to stand SBA. continues to refuse use of FWW and ambulated pushing IV pole SBA to occasional CGA ~ 40 ft . pt requested to go back to bed afterwards and stated that is all I can do. completed sit to supine SBA. positioned in bed. call light and table placed within reach . bed alarm on. Gait Assessment Gait Gait Assistance Required: Contact Guard Assist,1 Person Assist Distance (Feet) 40 Able to Maintain Weight Bearing Status Yes During Gait Assistive Devices Assistive Device Gait Belt Orthotic/Prosthetic Devices or Brace: No Gait Deviations General Gait Pattern Ataxic,Decreased Stride Length ,Decreased Feet Clearance Factors Limiting Gait Function Factors Limiting Gait Function Decreased Activity Tolerance, Decreased Sensation,Decreased Strength,Difficulty Following Directions,Limited Range of Motion,Pain,Poor Balance,Poor Safety Awareness M5 PT-IP Objective Assessments Start: 10/30/20 09:03 Freq: NEEDED Status: Active Protocol: Document 10/31/20 12:02 AW (Rec: 10/31/20 12:27 AW [id number]) Orientation Orientation/Cognition Level of Alertness Alert Orientation Name,Birthday,Month,Place, Situation Language Function Ability No Deficits Noted Safety Awareness Decreased Safety Awareness Gross Range of Motion Upper Extremity ROM Assessment Left Impaired Impairments RC injury Lower Extremity ROM Assessment Bilaterally Impaired Strength Lower Extremity Strength Assessment Bilaterally Impaired Hip 4-/5 Knee 4/5 Ankle 4-/5 Sensation Assessment Sensation Gross Sensation Left LE Impaired Light Touch Impaired Sensation Description Numbness Comments Sensation Comments Left foot numbess on exam M6 PT-IP Treatment Start: 10/30/20 09:03 Freq: NEEDED Status: Active Protocol: Document 11/03/20 10:07 AB (Rec: 11/03/20 11:07 AB [email or web address]) Physical Therapy Treatment Education Education Provided Safety M7 PT-IP Assessment and Plan Start: 10/30/20 09:03 Freq: NEEDED Status: Active Protocol: Document 11/03/20 10:07 AB (Rec: 11/03/20 11:07 AB [email or web address]) PT Summary Assessment and Plan Potential Rehabilitation Potential Good Summary Impairments Pain,ROM,Strength,Balance, Coordination,Sensation,Tone, Cognition,Bed Mobility, Transfers,Gait,Activity Tolerance Progress Towards Goals Slow Progress due to Medical Issues Assessment Summary pt improving slowly but continues to have decrease activity tolerance and refuse to use FWW/AD for ambulation. pt stated that she has a w/c she can use and when she is at home, she usually furniture cruise or she holds on to her significant other for support. Pt stated that she has a caregiver that comes in on weekdays and her significant other assists or on the weekends. pt plans to go home with assist. will benefit from HHPT to improve strength and mobility independence. Goals Transfer Goal Independent Gait Goal Independent Gait Distance 100 Other Goals up/down 3 steps with no rail CGA Days to Meet Goals 10 Frequency of Treatment Frequency Of Treatment Once a Day Treatment Plan Physical Therapy Treatment Plan Bed Mobility Training,Transfer Training,Gait Training, Therapeutic Exercise,Balance Retraining,Discharge Planning, Neuromuscular Re-ed, Coordination Retraining Precautions Other Precautions falls; MRSA nares contact precautions Recommendations To Nursing Amount of Assist Needed 1 Person Assist Discharge Recommendations PT Discharge Recommendations Home with Assistance,Home Health Transportation Needs at Discharge Private Vehicle
[2020-11-03] MEDS: CEFTRIAXONE 2 GM/50 ML FROZ.PIGGY IV (10:43)
[2020-11-03] MEDS: VANCOMYCIN 1,000 MG/200 ML PIGGYBACK 200 MG IV (11:24)
--- NOTE | 2020-11-03 11:28 | P.PN_ITS ---
Subjective Subjective Date Patient Seen: 11/03/20 Time Patient Seen: 11:28 Interval history: Patient is 70-year-old female with history of chronic pain due to numerous osteoporosis fractures, CKD stage III, chronic anemia and thrombocytosis presented with complaints extreme fatigue and weakness in the legs. She had bacteriuria and pyuria and was admitted with diagnosis of sepsis secondary to complicated UTI with retroperitoneal abscess. S/p IR drainage on 11/01. Cultures returned today with MRSA, somewhat inexplicably. Discussed with both surgery and urology over the phone today, and given clinical improvement with antibiotic therapy no indication for surgical interventions at this time. Recommended pulling drain with output stops. Have resent culture from the drain today to confirm MRSA. Output yesterday was approximately 50 cc, minimal today. Patient feels much better today, quite a bit stronger. Denies fever, chills, nausea or vomiting. Her back is starting to get sore around the area of the drain. Exam Vital Signs (past 8 hours): - 11/03/20 05:00 11/03/20 08:00 Temperature 96.5 F L 97.5 F L Pulse Rate 73 79 Respiratory Rate 16 18 Blood Pressure 108/55 L 134/66 Pulse Oximetry 96 99 Fraction of Inspired Oxygen 20 Oxygen Delivery Method Room Air Oxygen Flow Rate 0 Narrative Exam Narrative: General: This is an alert thin female in no acute distress HEENT: Nontraumatic, pupils equal and reactive, EOMI, oropharynx with general poor dentition Neck: No mass, no lymphadenopathy Lungs: CTA b/l Heart: Normal S1 and S2, regular rhythm, premature beats, no murmur Abdomen: Flat, soft, nontender, no hepatomegaly. L back drain in place with m uddy brown output. Extremities: Warm, dry without edema Neurological: no obvious cognitive deficits, speech normal. left arm movement limited by chronic rotator cuff tendinopathy Integument: drain site without surrounding erythema or tenderness. Psych: calm, cooperative with stable behavior. Objective Labs Result Diagrams: 11/03/20 05:00 11/03/20 05:00 Labs: Laboratory Results - last 24 hr 11/03/20 11/03/20 05:00 05:00 WBC 8.5 RBC 2.94 L Hgb 8.7 L Hct 26.2 L MCV 89.1 MCH 29.6 MCHC 33.2 RDW 17.0 H Plt Count 565 H Neut % (Auto) 60.8 Lymph % (Auto) 18.9 L [place] % (Auto) 13.7 Eos % (Auto) 4.9 H Baso % (Auto) 1.7 Neut # (Auto) 5200 Lymph # (Auto) 1600 [place] # (Auto) 1200 H Eos # (Auto) 400 Baso # (Auto) 100 Sodium 132 L Potassium 3.5 Chloride 105 Carbon Dioxide 22 BUN 14 Creatinine 1.30 H Estimated GFR 40.6 L BUN/Creatinine Ratio 10.8 Glucose 130 H Calcium 8.7 PFSH Medical History Anxiety Arthritis C. difficile colitis Chronic pain Colitis Compression fracture of L1 vertebra (~07/2019) COPD (chronic obstructive pulmonary disease) Depression DJD (degenerative joint disease) Fibromyalgia Fracture, tibia GI bleeding History of recurrent UTIs HLD (hyperlipidemia) Hypertension Insomnia Left foot drop Lumbar compression fracture (02/26/19) Migraines Multiple fractures Neuropathy Numbness and tingling Osteoporosis Radius fracture (08/30/17) Renal disease Surgical History H/O: hysterectomy History of surgery Hx of appendectomy Hx of cholecystectomy Hx of elbow surgery Hx of kyphoplasty (~2013) Hx of kyphoplasty (04/28/19) Hx of kyphoplasty (07/28/19) Hx of tonsillectomy Status post epidural steroid injection (03/25/19) Family History Mother No known health problems Father No known health problems Social History household members: significant other Smoking Status: Former smoker alcohol intake: current Assessment & Plan Assessment & Plan narrative: Patient is 70-year-old female with history of chronic pain due to numerous osteoporosis fractures, CKD stage III, chronic anemia and thrombocytosis presented with complaints extreme fatigue and wekness in the legs. She had bacteriuria and pyuria and was admitted with diagnosis of sepsis secondary complicated UTI and on CT she was noted to have a retroperitoneal abscess and continues to improve after drainage on 11/01 with drain placement. Cultures from urine growing willett-sensitive E. coli and abscess cultures have grown MRSA. Have resent fluid culture from her drain to see if MRSA was a possible contaminant. 1. Sepsis with end-organ failure -patient admitted with complicated UTI, leukocytosis with WBC 33,000 but then developed hypotension responsive to fluids and altered mental status which is now improved. WBC down to normal today, Plt count from >1M to 565K today. Procalcitonin declining appropriately on antitbiotic therapy. -sofa score of 4, acidotic with pH of 7.27 on ABG. -CT scan: Left retroperitoneal abscess now s/p IR drainage on 11/01. -initially started on meropenem and vancomycin. On HD #1 vancomycin was discontinued as cultures were growing E. Coli. Continued on meropenem until IR abscess culture resulted with MRSA. Urine cultures with willett-sensitive E. coli. Antibiotics changed to ceftriaxone and re-added vancomycin on 11/03 given current culture results. Repeat cultures sent 11/03 with many WBC, no organisms seen on gram stain. 2. Left pyelonephritis with retroperitoneal abscess, present on admission, active -patient was treated as outpatient for pansensitive E coli UTI last month, had elevated WBC of 24.8 K on 10/07 ER visit, on this admission noted to have pyuria and bacteriuria with WBC of 33.2 K, has left flank tenderness -ultrasound: Left retroperitoneal complex mass adjacent to left kidney -chest, abdomen and pelvis CT: Left retroperitoneal abscess read as psoas muscle abscess, on further review with radiologist and clinical findings of urinary infection, it seems more likely this originated as a left kidney abscess draining down to the psoas. -blood cultures negative. Urine culture with willett-sensitive E. coli. -treated with meropenem 1 g IV q.12 hours renal dosed and IV vancomycin initially. Stopped vancomycin given urine cultures. Continued on meropenem until abscess cultures from IR drainage on 11/01 returned on 11/03 with MRSA. Vancomycin was re-added given this result, however she continued to improve without adequate MRSA coverage. It is unclear if this is contaminant or not. Have sent repeat cultures on 11/03 from her drain. If MRSA again from drain consider ID recommendation re: antibiotic therapy. -PICC line placed 10/30 as patient has needed extended course IV antibiotics 3. Chronic thrombocytosis, present on admission, active -patient has highly elevated platelet counts dating back to at least March 2017, persistent anemia, intermittent leukocytosis -platelet count over 1 million on this admission suggestive of bone marrow ma lignant disorders such as myeloproliferative disorder versus reactive thrombocytosis due to chronic iron deficiency anemia or chronic infection -LDH normal, no splenomegaly was noted on ultrasound/CT -further workup including bone marrow biopsy can be done as outpatient with Oncology as her platelet count is improving with treatment of her infection, raising the likelihood of reactive etiology. 4. Chronic iron deficiency anemia, active -Patient is iron deficient likely due to chronic blood loss. She has been on Protonix and Carafate since ulcer diagnosed 4 years ago. She states she has never had a repeat endoscopy to assess healing of the ulcer yet has remained ulcer treatment medications. She does not take aspirin or NSAIDs. Her last colonoscopy was 20 years ago. However, her father at age 52 of colon cancer. -Patient should have upper and lower endoscopy to assess for to rule out malignancy and other sources of blood loss. This can be done as outpatient. 5. Acute on chronic anemia, active -patient has chronic anemia for years and is iron deficient, however she acutely dropped her hemoglobin and hematocrit on labs 10/30, from hemoglobin 9.8 to hemoglobin 6.7 -acute anemia likely due to inflammatory block -transfused 2 units PRBC with improvement to Hg of 8.7 and remains stable at 8.9 today. 6. History of multiple osteoporotic spinal and extremity fractures, chronic -patient states that 4 years ago she suddenly started breaking bones easily with minimal provocation, has had multiple kyphoplasties and surgeries on all 4 extremities due to fractures, which I suspect is secondary to bone marrow malignant process associated with severe thrombocytosis -continue patient on oxycodone 10 mg q.4 hours as needed per home routine, gabapentin 300 mg t.i.d., carisoprodol 350 mg t.i.d. as needed 7. History of symptomatic PACs/PVCs, chronic -on metoprolol tartrate 25 mg b.i.d. at home, discontinued initially due to hypotension, resumed for tachycardia, stable on 12.5 mg at night, increased to BID today given improvement in BP. 8. History of bleeding peptic ulcer, chronic -denies melena/bright red blood, apparently for diagnosed with bleeding ulcer about 4 years ago, ? nonhealing, and has remained on b.i.d. pantoprazole and q.i.d. sucralfate since diagnosis -continue pantoprazole and sucralfate per home routine 9. Chronic kidney disease stage III, possible acute kidney injury, improved. -creatinine 1.5 on admission is within range of patient's prior lab values, improved to recently around 1.2. Lowest outpatient creatinine appears to be around 1.2. 10. Moderate to severe protein calorie malnutrition, present on admission, chronic -BMI 19.6, patient noted recent 15 lb weight loss, and appears to have generalized muscle wasting -nutrition consult appreciated. DVT prophylaxis: can start HSQ Code status: Full code COVID-19 COVID-19 status: Negative Quality VTE Deep Vein Thrombosis/Pulmonary Embolism Present on Admission: No MIPS - Admit Advanced Care Plan / Current Medications Measures: #47 ? Advanced Care Plan Clinician documentation instruction: document at admission. [x] I confirmed that the patient's Advance Care Plan is present, code status is documented, or surrogate decision maker is listed in the patient?s medical r ecord. [SATISFIES MIPS PERFORMANCE] If Yes, Stop Here [] The patient?s Advance Care plan is not present because: (select) [MIPS PERFORMANCE EXCEPTION/EXCLUSION] [] I confirmed today that the patient does not wish or was not able to name a surrogate decision maker or provide an Advance Care Plan. [] Hospice care is currently being provided or has been provided this calendar year [] I did NOT confirm today the presence of an Advance Care Plan or surrogate decision maker documented within the patient's medical record. [DOES NOT SATISFY MIPS PERFORMANCE] #130 - Documentation of Current Medications in the Medical Record Clinician documentation instruction: use macro the first time you see a patient. [x] I have utilized all available immediate resources to obtain, update, or review the patient?s current medications. [SATISFIES MIPS PERFORMANCE] If Yes, Stop Here [] The patient is not eligible for medication reconciliation; the patient is in an emergent medical situation where delaying treatment would jeopardize the patient?s health. [MIPS PERFORMANCE EXCEPTION/EXCLUSION] [] I did NOT confirm, update or review the patient's current list of medications today. [DOES NOT SATISFY MIPS PERFORMANCE] MIPS - CL Central Venous Catheter Placement Measure: #76 ? Prevention of Central Venous Catheter (CVC) ? Related Bloodstream Infection Clinician documentation instruction: use macro every time you place a central line. [] All elements of Maximal Sterile Barrier Technique, including hand hygiene, skin prep, and sterile ultrasound technique (if used) were followed. [SATISFIES MIPS PERFORMANCE] If Yes, Stop Here [] If ?No?, the medical reason all elements were NOT used for medical reason [] (ex. emergent condition). [] Maximal Sterile Barrier Technique was not followed, no reason provided [DOES NOT SATISFY MIPS PERFORMANCE] MIPS - DC Heart Failure Measures: #5 - Heart Failure (HF): Angiotensin-Converting Enzyme (CHRIST) Inhibitor or Angiotensin Receptor Dennise (ARB) Therapy for Left Vent ricular Systolic Dysfunction (LVSD) and #8 - Heart Failure (HF): Beta-Dennise Therapy for Left Ventricular Systolic Dysfunction (LVSD) Clinician documentation instruction: use macro at every CHF discharge. [] The patient has current or prior documentation of left ventricular ejection fraction (LVEF) less than 40%, or moderate or severely depressed left ventricular systolic function. Answer both: [SATISFIES MIPS PERFORMANCE] [] The patient was prescribed or already taking an Angiotensin-Converting Enzyme (CHRIST) Inhibitor, or Angiotensin Receptor Dennise (ARB). [] The patient was prescribed or already taking a beta-dennise. If Yes to Both, Stop Here [] Patient not prescribed/taking: [MIPS PERFORMANCE EXCEPTION/EXCLUSION] [] CHRIST or ARB for medical/patient/system reason(s) including [] (ex. allergy, intolerance, contraindication) [] Beta-dennise for medical/patient/system reason(s) including [] (ex. allergy, intolerance, contraindication) [] Patient not prescribed/taking: [DOES NOT SATISFY MIPS PERFORMANCE] [] CHRIST or ARB, no reason given [] Beta-dennise, no reason given
[2020-11-03] MEDS: METOPROLOL ER 25 MG TABLET 12.5 MG PO ×2 (12:43→20:52)
[2020-11-03] MEDS: MORPHINE 2 MG/ML INJ 1 MG IV (18:02)
[2020-11-04] VITALS (14 sets, daily range): BP systolic 117–185; BP diastolic 56–88; PULSE 71–91; RESP 16–18; TEMP 36.2–37.1; O2SAT 95–98
[2020-11-04] MEDS: VANCOMYCIN 1,000 MG/200 ML PIGGYBACK 200 MG IV ×2 (04:13→22:41)
[2020-11-04] MEDS: OXYCODONE IR 10 MG TABLET PO ×5 (04:13→21:01)
[2020-11-04] MEDS: SODIUM CHLORIDE 0.9% FLUSH 10 ML IV ×3 (04:13→21:03)
[2020-11-04] MEDS: MORPHINE 2 MG/ML INJ 1 MG IV ×4 (04:45→21:22)
[2020-11-04] MEDS: GABAPENTIN 300 MG CAPSULE PO ×3 (08:21→21:02)
[2020-11-04] MEDS: HEPARIN 5,000 UNIT/ML VIAL 5000 UNIT SUBCUT ×2 (08:21→21:02)
[2020-11-04] MEDS: SUCRALFATE 1 GM TABLET PO ×4 (08:21→21:02)
[2020-11-04] MEDS: PANTOPRAZOLE 40 MG TABLET PO ×2 (08:21→21:02)
[2020-11-04] MEDS: carisoprodoL 350 MG TABLET PO ×4 (08:21→21:02)
[2020-11-04] MEDS: METOPROLOL ER 25 MG TABLET 12.5 MG PO ×2 (08:22→21:05)
[2020-11-04] MEDS: CEFTRIAXONE 2 GM/50 ML FROZ.PIGGY IV (09:04)
--- NOTE | 2020-11-04 10:47 | PT.IPTN ---
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) Physical Therapy Treatment Note M2 PT-IP Current Condition Start: 10/30/20 09:03 Freq: NEEDED Status: Active Protocol: Document 10/31/20 12:02 AW (Rec: 10/31/20 12:27 AW [id number]) Physical Therapy Current Condition Current Condition Evaluation Date 10/31/20 Treatment Diagnosis sepsis, UTI, generalized weakness, frequent falls Onset Date 10/29/20 Precautions Other Precautions falls; osteoporosis; contact precautions due to MRSA in nares Weight Bearing Status Weight Bearing Status Weight Bear as Tolerated Allowed Weight Bearing Amount (enter % Op note dated 05/20/20 states or #) (%) pt was WBAT following ORIF left malleolus fx nonunion. M3 PT-IP Subjective Start: 10/30/20 09:03 Freq: NEEDED Status: Active Protocol: Document 11/04/20 10:25 CLB (Rec: 11/04/20 11:04 CLB [id number]) Subjective Physical Therapy Visit Type Type Treatment Note Visit Start Time 10:25 Visit Stop Time 10:47 Total Visit Minutes 22 Number of TAP AND DIE MAKER TECHNICIAN Visits 1 Physical Therapy Visit Comments Patient Comments Pt agreeable to work with therapy. Therapy Pain Assessment Pain When Pain Assessed At Rest Pain Present Pain Present Pain Reported M4 PT-IP Mobility and Gait Start: 10/30/20 09:03 Freq: NEEDED Status: Active Protocol: Document 11/04/20 10:25 CLB (Rec: 11/04/20 11:04 CLB [id number]) PT-Bed Mobility Assessment Supine to Sit Supine to Sit Standby Assistance PT-Transfer Assessment Sit to and From Stand Sit to and from Stand Standby Assistance Equipment Transfer Assistive Device None Transfers Transfer Destination Bed Transfer Ability Level of Assist Standby Assistance,Contact Guard Assistance Comments Mobility Comments Pt sitting up in bed upon arrival. Pt able to get to EOB SBA and stood SBA, pt refused use of GB and FWW. Pt ambulated with use of IV pole to platform step. Pt educated on step to step climbing and pt trialed stair with OVERNIGHT BABYSITTER. Pt able to climb one step up/down x3 with OVERNIGHT BABYSITTER. Pt then ambulated in room with use of IV pole and TAP AND DIE MAKER TECHNICIAN arm for support as pt states she has someone with her at all time during mobility at home. entered room and pt sat on EOB with RN present. Gait Assessment Gait Gait Assistance Required: Contact Guard Assist,1 Person Assist Distance (Feet) 40 Able to Maintain Weight Bearing Status Yes During Gait Assistive Devices Orthotic/Prosthetic Devices or Brace: No Gait Deviations General Gait Pattern Ataxic,Decreased Stride Length ,Decreased Feet Clearance Factors Limiting Gait Function Factors Limiting Gait Function Decreased Activity Tolerance, Decreased Sensation,Decreased Strength,Difficulty Following Directions,Limited Range of Motion,Pain,Poor Balance,Poor Safety Awareness Comments Gait Comments see mobility section Stair Climbing Assessment Evaluation Level of Assist On Stairs Contact Guard Assistance,1 Person Assistance Devices Stair Climbing Assistive Devices None Technique/Endurance Stair Climbing Direction Ascend and Descend Stair Climbing Technique Step to Step Number of Steps Climbed 1 Stair Climbing Set # Repetitions (reps) 3 Comments Stair Climbing Comments Pt climbed one step x3 with OVERNIGHT BABYSITTER CGA. M5 PT-IP Objective Assessments Start: 10/30/20 09:03 Freq: NEEDED Status: Active Protocol: Document 10/31/20 12:02 AW (Rec: 10/31/20 12:27 AW [id number]) Orientation Orientation/Cognition Level of Alertness Alert Orientation Name,Birthday,Month,Place, Situation Language Function Ability No Deficits Noted Safety Awareness Decreased Safety Awareness Gross Range of Motion Upper Extremity ROM Assessment Left Impaired Impairments RC injury Lower Extremity ROM Assessment Bilaterally Impaired Strength Lower Extremity Strength Assessment Bilaterally Impaired Hip 4-/5 Knee 4/5 Ankle 4-/5 Sensation Assessment Sensation Gross Sensation Left LE Impaired Light Touch Impaired Sensation Description Numbness Comments Sensation Comments Left foot numbess on exam M6 PT-IP Treatment Start: 10/30/20 09:03 Freq: NEEDED Status: Active Protocol: Document 11/03/20 10:07 AB (Rec: 11/03/20 11:07 AB [email or web address]) Physical Therapy Treatment Education Education Provided Safety M7 PT-IP Assessment and Plan Start: 10/30/20 09:03 Freq: NEEDED Status: Active Protocol: Document 11/04/20 10:25 CLB (Rec: 11/04/20 11:04 CLB [id number]) PT Summary Assessment and Plan Potential Rehabilitation Potential Good Summary Impairments Pain,ROM,Strength,Balance, Coordination,Sensation,Tone, Cognition,Bed Mobility, Transfers,Gait,Activity Tolerance Progress Towards Goals Slow Progress due to Medical Issues Assessment Summary Pt requires SBA for bed mobility and sit<>stand, pt refuses to wear GB or use FWW. Pt ambulated with CGA in room ~40ft and was able to climb three stairs with OVERNIGHT BABYSITTER CGA. Pt has assist at home and will benefit from HH at time of d/c to increase strength for independent mobility. Goals Transfer Goal Independent Gait Goal Independent Gait Distance 100 Other Goals up/down 3 steps with no rail CGA Days to Meet Goals 10 Frequency of Treatment Frequency Of Treatment Once a Day Treatment Plan Physical Therapy Treatment Plan Bed Mobility Training,Transfer Training,Gait Training, Therapeutic Exercise,Balance Retraining,Discharge Planning, Neuromuscular Re-ed, Coordination Retraining Precautions Other Precautions falls; MRSA nares contact precautions Recommendations To Nursing Amount of Assist Needed 1 Person Assist Discharge Recommendations PT Discharge Recommendations Home with Assistance,Home Health Transportation Needs at Discharge Private Vehicle
--- NOTE | 2020-11-04 13:27 | DI.MRI.S_ITS ---
PROCEDURE: MR THORACIC SPINE WO/W CON INDICATIONS: osteomyelitis/discitis TECHNIQUE: Noncontrast sagittal T1 spin echo and T2 fast spin echo, sagittal STIR, axial T1 and T2 fast spin echo through the thoracic spine. After the administration of contrast, axial and sagittal T1 spin echo with fat saturation through the thoracic spine. COMPARISON: [facility], , MR THORACIC SPINE WO CON, 04/22/2020, 18:15. FINDINGS: At T10-T11, there is low T1 signal intensity of the endplates with corresponding enhancement and edema, as well as some enhancement and edema in the adjacent intervertebral disc space (series 5, image 8 and series 12 image 8 for example). There is no abnormal enhancement or edema in the adjacent paraspinous soft tissues in the thoracic spine. Partially visualized inflammatory phlegmonous change and enhancement as well as abscess in the left , described In greater detail at in the separately dictated lumbar spine MRI report. Vertebral body heights maintained in the thoracic spine. No spinal canal or neural foraminal stenosis in the thoracic spine. IMPRESSION: Suspected discitis/osteomyelitis at T10-T11. Partially visualized lumbar spine findings, described in separately dictated lumbar spine MRI report. Dictated by: Jason Castle M.D. on 11/05/2020 at 10:24 Approved by: Jason Castle M.D. on 11/05/2020 at 10:28
--- NOTE | 2020-11-04 13:28 | DI.MRI.S_ITS ---
PROCEDURE: MR LUMBAR SPINE WO/W CON INDICATIONS: osotemyelitis/discitis, please comment if abscess improve? TECHNIQUE: Noncontrast sagittal T1 spin echo and T2 fast spin echo, sagittal STIR, axial T1 and T2 fast spin echo through the lumbar spine. In cases with scoliosis, additional coronal T2 fast spin echo may be performed. After the administration of contrast, sagittal and axial T1 spin echo with fat saturation through the lumbar spine. COMPARISON: [facility], CT, CT DRAIN VISCERA, 11/01/2020, 9:50. [facility], CT, CT ABDOMEN PELVIS W CON, 10/30/2020, 8:22. [facility], MR, MR LUMBAR SPINE WO/W CON, 10/07/2020, 11:13. FINDINGS: These images demonstrate focal low T1 marrow signal intensity at the posterior L4-L5 vertebral bodies with corresponding enhancement (series 12, image 9). There is also some small volume fluid and enhancement within the intervertebral space at this level. The enhancement extends to the left of the vertebral body into the left psoas and paraspinous space. Left psoas abscess is decreased in size when compared with the CT images obtained during drain placement. The abscess currently measures approximately 2 centimeters with adjacent phlegmonous change involving most of the psoas and adjacent left retroperitoneal space spanning approximately 6 centimeters in diameter There is also enhancement within the intervertebral disc at T11-T12 , without corresponding fluid. This is presumably degenerative in nature given the lack of fluid and adjacent soft tissue inflammatory changes. Kyphoplasty changes in the L1, L2, L3, and L4 vertebral bodies similar to the prior study. Vertebral body heights not significantly changed. Alignment is normal. Multilevel multifactorial degenerative changes are similar. There is no evidence of an epidural abscess or fluid collection. IMPRESSION: Improved appearance of left psoas abscess and adjacent inflammatory change when compared with 10/30/2020 CT and 11/01/[address] images. Small amount of fluid and enhancement in the L4-L5 disc space, the communicating with the left psoas and paraspinous infectious process, with the associated enhancement extending to the left psoas and paraspinous/retroperitoneal spaces, consistent with discitis/osteomyelitis. Dictated by: Jason Castle M.D. on 11/05/2020 at 9:53 Approved by: Jason Castle M.D. on 11/05/2020 at 10:02
--- NOTE | 2020-11-04 14:24 | CM.DPNOTE ---
DCP Cont According to morning rounds w/Dr Oconnor; patient may be ready for medical DC today, requests this WATER CONSERVATIONIST coordinate IV infusion for patient, 3-6 weeks of Vanco, dosing unknown this morning. Trough due tomorrow Discussed w/patient and she was adamantly against IV abx at SNF, then discussed home infusion, patient was interested and had no agency preference. Placed call to [facility] and reviewed referral w/ pharmacist Gia. Efaxed clinical referral packet for her review. [facility] had anticipated they could come to the hospital this afternoon at approx 1530 for teaching. At approx 1300, Dr Zuleta was waiting to hear back from an ID provider and so was unsure about patient's DC today. Inevitably, [facility] was unable to wait and scheduled dosing and education w/patient for Saturday. Updated Dr Oconnor who explained the ID doc requested an MRI to further investigate the source of this MRSA infection. Dr Oconnor unsure when the MRI will be available. Depending on results of MRI, patient may be able to DC on IV Dapto (vs Vanco). Updated patient and partner Syed who are agreeable to plan. Placed call to [facility] to update- Gia explained patient has good insurance coverage for the IV drug but does not have nursing coverage through home infusion. Updated that patient has [facility] and [facility] to assist. Gia will be working at the office for a few hours Saturday, otherwise DC strategic planner can contact adhesion tester pharmacistHardeep to coordinate further. Plan: DC home w/[facility] (need to update [facility] upon DC), resumption of [facility] (likely available Saturday per patient) and [facility] for ongoing IV abx (need to coordinate details as updates are available) [facility] will need to know who the following provider will be for the IV abx, trough, etc JW
--- NOTE | 2020-11-04 15:25 | PM.PN.1 ---
Subjective Subjective Date Patient Seen: 11/04/20 Time Patient Seen: 13:25 Interval history: Patient feels somewhat improved. Has back pain at MILI drain site. She feels her legs are stronger. She did have a steroid injection lateral to her spine within the last month. She denies any IV drug use history. MILI drain 11/03 was 10cc. Today, 11/04, no drainage from MILI. Exam Vital Signs (past 8 hours): - 11/04/20 07:30 11/04/20 08:40 11/04/20 11:09 Temperature 97.2 F L Pulse Rate 84 Respiratory Rate 16 Blood Pressure 138/74 125/70 Pulse Oximetry 97 95 11/04/20 12:29 Temperature Pulse Rate Respiratory Rate Blood Pressure Pulse Oximetry 96 Fraction of Inspired Oxygen 20 Oxygen Delivery Method Room Air Oxygen Flow Rate 0 Narrative Exam Narrative: Exam Narrative: General: no acute distress HEENT: Nontraumatic, pupils equal and reactive, oropharynx with general poor dentition Neck: No mass, no lymphadenopathy Lungs: CTA b/l Heart: Normal S1 and S2, regular rhythm, premature beats, no murmur Abdomen: Flat, soft, nontender, no hepatomegaly. L back drain in place with minimal output. Extremities: Warm, dry without edema Neurological: no obvious cognitive deficits, speech normal. Psych: calm, cooperative with stable behavior. Objective Labs Result Diagrams: 11/03/20 05:00 11/03/20 05:00 [facility] Medical History Anxiety Arthritis C. difficile colitis Chronic pain Colitis Compression fracture of L1 vertebra (~07/2019) COPD (chronic obstructive pulmonary disease) Depression DJD (degenerative joint disease) Fibromyalgia Fracture, tibia GI bleeding History of recurrent UTIs HLD (hyperlipidemia) Hypertension Insomnia Left foot drop Lumbar compression fracture (02/26/19) Migraines Multiple fractures Neuropathy Numbness and tingling Osteoporosis Radius fracture (08/30/17) Renal disease Surgical History H/O: hysterectomy History of surgery Hx of appendectomy Hx of cholecystectomy Hx of elbow surgery Hx of kyphoplasty (~2013) Hx of kyphoplasty (04/28/19) Hx of kyphoplasty (07/28/19) Hx of tonsillectomy Status post epidural steroid injection (03/25/19) Family History Mother No known health problems Father No known health problems Social History household members: significant other Smoking Status: Former smoker alcohol intake: current Assessment & Plan Assessment & Plan narrative: Assessment & Plan narrative: 70W with PMH of chronic pain due to numerous osteoporosis fractures, CKD stage III, chronic anemia and thrombocytosis presented with complaints extreme fatigue and weakness in the legs. She had bacteriuria and pyuria and was admitted with diagnosis of sepsis secondary complicated UTI and on CT she was noted to have a psoas with MILI placed 11/01. Cultures from urine growing willett-sensitive E. coli and abscess cultures have grown MRSA. 1. Sepsis with end-organ failure -patient admitted with complicated UTI, leukocytosis with WBC 33,000 but then developed hypotension responsive to fluids and altered mental status which is now improved. WBC normal, Plt count from >1M to 565K today. Procalcitonin declining appropriately on antitbiotic therapy. -sofa score of 4, acidotic with pH of 7.27 on ABG. -CT scan: Left retroperitoneal abscess now s/p IR drainage on 11/01. -initially started on meropenem and vancomycin. On HD #1 vancomycin was discontinued as cultures were growing E. Coli. Continued on meropenem until IR abscess culture resulted with MRSA. Urine cultures with willett-sensitive E. coli. Antibiotics changed to ceftriaxone and re-added vancomycin on 11/03 given current culture results. Repeat cultures sent 11/03 with many WBC, and MRSA. Will need MRI of spine to rule out discitis. Will possibly need extended antibiotic course pending MRI results. 2. Left pyelonephritis with retroperitoneal abscess, present on admission, active -patient was treated as outpatient for pansensitive E coli UTI last month, had elevated WBC of 24.8 K on 10/07 ER visit, on this admission noted to have pyuria and bacteriuria with WBC of 33.2 K, has left flank tenderness -ultrasound: Left retroperitoneal complex mass adjacent to left kidney -chest, abdomen and pelvis CT: Left retroperitoneal abscess read as psoas muscle abscess, on further review with radiologist and clinical findings of urinary infection, it seems more likely this originated as a left kidney abscess draining down to the psoas. -blood cultures negative. Urine culture with willett-sensitive E. coli. -PICC line placed 10/30 as patient has needed extended course IV antibiotics -MILI drain with no output on 11/04 so removed. Follow up MRI imaging to see if abscess resolved, results will determine if needs course of linezolid, vancomycin, or daptomycin 3. Chronic thrombocytosis, present on admission, active -patient has highly elevated platelet counts dating back to at least March 2017, persistent anemia, intermittent leukocytosis -platelet count over 1 million on this admission suggestive of bone marrow malignant disorders such as myeloproliferative disorder versus reactive thrombocytosis due to chronic iron deficiency anemia or chronic infection -LDH normal, no splenomegaly was noted on ultrasound/CT -further workup including bone marrow biopsy can be done as outpatient with Oncology as her platelet count is improving with treatment of her infection, raising the likelihood of reactive etiology. 4. Chronic iron deficiency anemia, active -Patient is iron deficient likely due to chronic blood loss. She has been on Protonix and Carafate since ulcer diagnosed 4 years ago. She states she has never had a repeat endoscopy to assess healing of the ulcer yet has remained ulcer treatment medications. She does not take aspirin or NSAIDs. Her last colonoscopy was 20 years ago. However, her father at age 52 of colon cancer. -Patient should have upper and lower endoscopy to assess for to rule out malignancy and other sources of blood loss. This can be done as outpatient. 5. Acute on chronic anemia, active -patient has chronic anemia for years and is iron deficient, however she acutely dropped her hemoglobin and hematocrit on labs 10/30, from hemoglobin 9.8 to hemoglobin 6.7 -acute anemia likely due to inflammatory block -transfused 2 units PRBC with improvement to Hg of 8.7 and remains stable at 8.9 today. 6. History of multiple osteoporotic spinal and extremity fractures, chronic -patient states that 4 years ago she suddenly started breaking bones easily with minimal provocation, has had multiple kyphoplasties and surgeries on all 4 extremities due to fractures, which I suspect is secondary to bone marrow malignant process associated with severe thrombocytosis -continue patient on oxycodone 10 mg q.4 hours as needed per home routine, gabapentin 300 mg t.i.d., carisoprodol 350 mg t.i.d. as needed 7. History of symptomatic PACs/PVCs, chronic -on metoprolol tartrate 25 mg b.i.d. at home, discontinued initially due to hypotension, resumed for tachycardia, stable on 12.5 mg at night, increased to BID today given improvement in BP. 8. History of bleeding peptic ulcer, chronic -denies melena/bright red blood, apparently for diagnosed with bleeding ulcer about 4 years ago, ? nonhealing, and has remained on b.i.d. pantoprazole and q.i.d. sucralfate since diagnosis -continue pantoprazole and sucralfate per home routine 9. Chronic kidney disease stage III, possible acute kidney injury, improved. -creatinine 1.5 on admission is within range of patient's prior lab values, improved to recently around 1.2. Lowest outpatient creatinine appears to be around 1.2. 10. Moderate to severe protein calorie malnutrition, present on admission, chronic -BMI 19.6, patient noted recent 15 lb weight loss, and appears to have generalized muscle wasting -nutrition consult appreciated. DVT prophylaxis: can start HSQ Code status: Full code Quality VTE Deep Vein Thrombosis/Pulmonary Embolism Present on Admission: No MIPS - Admit Advanced Care Plan / Current Medications Measures: #47 ? Advanced Care Plan Clinician documentation instruction: document at admission. [] I confirmed that the patient's Advance Care Plan is present, code status is documented, or surrogate decision maker is listed in the patient?s medical record. [SATISFIES MIPS PERFORMANCE] If Yes, Stop Here [] The patient?s Advance Care plan is not present because: (select) [MIPS PERFORMANCE EXCEPTION/EXCLUSION] [] I confirmed today that the patient does not wish or was not able to name a surrogate decision maker or provide an Advance Care Plan. [] Hospice care is currently being provided or has been provided this calendar year [] I did NOT confirm today the presence of an Advance Care Plan or surrogate decision maker documented within the patient's medical record. [DOES NOT SATISFY MIPS PERFORMANCE] #130 - Documentation of Current Medications in the Medical Record Clinician documentation instruction: use macro the first time you see a patient. [] I have utilized all available immediate resources to obtain, update, or review the patient?s current medications. [SATISFIES MIPS PERFORMANCE] If Yes, Stop Here [] The patient is not eligible for medication reconciliation; the patient is in an emergent medical situation where delaying treatment would jeopardize the patient?s health. [MIPS PERFORMANCE EXCEPTION/EXCLUSION] [] I did NOT confirm, update or review the patient's current list of medications today. [DOES NOT SATISFY MIPS PERFORMANCE] MIPS - CL Central Venous Catheter Placement Measure: #76 ? Prevention of Central Venous Catheter (CVC) ? Related Bloodstream Infection Clinician documentation instruction: use macro every time you place a central line. [] All elements of Maximal Sterile Barrier Technique, including hand hygiene, skin prep, and sterile ultrasound technique (if used) were followed. [SATISFIES MIPS PERFORMANCE] If Yes, Stop Here [] If ?No?, the medical reason all elements were NOT used for medical reason [] (ex. emergent condition). [] Maximal Sterile Barrier Technique was not followed, no reason provided [DOES NOT SATISFY MIPS PERFORMANCE] MIPS - DC Heart Failure Measures: #5 - Heart Failure (HF): Angiotensin-Converting Enzyme (CHRIST) Inhibitor or Angiotensin Receptor Dennise (ARB) Therapy for Left Ventricular Systolic Dysfunction (LVSD) and #8 - Heart Failure (HF): Beta-Dennise Therapy for Left Ventricular Systolic Dysfunction (LVSD) Clinician documentation instruction: use macro at every CHF discharge. [] The patient has current or prior documentation of left ventricular ejection fraction (LVEF) less than 40%, or moderate or severely depressed left ventricular systolic function. Answer both: [SATISFIES MIPS PERFORMANCE] [] The patient was prescribed or already taking an Angiotensin-Converting Enzyme (CHRIST) Inhibitor, or Angiotensin Receptor Dennise (ARB). [] The patient was prescribed or already taking a beta-dennise. If Yes to Both, Stop Here [] Patient not prescribed/taking: [MIPS PERFORMANCE EXCEPTION/EXCLUSION] [] CHRIST or ARB for medical/patient/system reason(s) including [] (ex. allergy, intolerance, contraindication) [] Beta-dennise for medical/patient/system reason(s) including [] (ex. allergy, intolerance, contraindication) [] Patient not prescribed/taking: [DOES NOT SATISFY MIPS PERFORMANCE] [] CHRIST or ARB, no reason given [] Beta-dennise, no reason given
[2020-11-04 21:24] LABS: Hematocrit 27.9 % (36-46); Hemoglobin 9.2 g/dL (12.0-16.0); Mean Corpuscular HGB Conc 33.2 % (30-36); Mean Corpuscular Hemoglobin 29.7 PG (26-34); Mean Corpuscular Volume 89.5 fL (80-100); Platelet Count 548 X10^3/uL (150-400); Red Blood Cell Count 3.12 X10^6/uL (4.0-5.2); Red Cell Distribution Width 16.5 % (11.6-14.8); White Blood Cell Count 8.5 X10^3/uL (4.5-11.0)
[2020-11-04 21:46] LABS: BUN Creatinine Ratio 13.3 (6-22); Blood Urea Nitrogen 16 mg/dL (7-17); Calcium 8.8 mg/dL (8.4-10.2); Carbon Dioxide 23 mmol/L (22-32); Chloride 105 mmol/L (98-107); Estimated Glomerular Filt Rate 44.5 mL/min (>60); Glucose 125 mg/dL (80-110); HEMOLYSIS < 15 (0-50); Potassium 3.8 mmol/L (3.4-5.1); Sodium 135 mmol/L (137-145)
[2020-11-05] VITALS (9 sets, daily range): BP systolic 116–157; BP diastolic 57–75; PULSE 73–84; RESP 16–18; TEMP 36.3–36.9; O2SAT 95–100
[2020-11-05] MEDS: SODIUM CHLORIDE 0.9% FLUSH 10 ML IV ×2 (00:02→09:11)
--- NOTE | 2020-11-05 00:28 | PC.NURSE ---
Patient up to BSC with SBA, slow movements but steady. Voided without difficulty. IV ABX infused - PICC heparin locked per protocol. Patient requesting pain medication, nothing due until 99. Education on oral analgesia and how morphine is utilized for breakthrough pain; not used as the first course of action (per medication order). Patient disgruntled once again with this information (much like 11/04/20 shift when the same information was discussed). Educated that the patient will not be able to receive IV morphine at home for pain control on discharge. Verbalized understanding but continues to request morphine first, not due until 129. Patient states I will just stay up until I get all my pain meds then go to sleep. Call light in reach.
[2020-11-05] MEDS: OXYCODONE IR 10 MG TABLET PO ×4 (01:11→16:19)
[2020-11-05] MEDS: MORPHINE 2 MG/ML INJ 1 MG IV ×3 (01:42→13:22)
[2020-11-05] MEDS: LORazepam 2 MG/ML INJ 1 MG IV (06:40)
--- NOTE | 2020-11-05 07:18 | PC.NURSE ---
Day shift: Pt off unit for MRI at approx 0705.
[2020-11-05] MEDS: HEPARIN 5,000 UNIT/ML VIAL 5000 UNIT SUBCUT (09:09)
[2020-11-05] MEDS: PANTOPRAZOLE 40 MG TABLET PO (09:09)
[2020-11-05] MEDS: GABAPENTIN 300 MG CAPSULE PO ×2 (09:10→14:22)
[2020-11-05] MEDS: carisoprodoL 350 MG TABLET PO ×3 (09:10→16:14)
[2020-11-05] MEDS: METOPROLOL ER 25 MG TABLET 12.5 MG PO (09:10)
[2020-11-05] MEDS: SUCRALFATE 1 GM TABLET PO ×3 (09:10→16:14)
[2020-11-05] MEDS: CEFTRIAXONE 2 GM/50 ML FROZ.PIGGY IV (09:11)
[2020-11-05 09:26] LABS: Hematocrit 28.2 % (36-46); Hemoglobin 9.3 g/dL (12.0-16.0); Mean Corpuscular Hemoglobin 29.6 PG (26-34); Mean Corpuscular Volume 89.9 fL (80-100); Platelet Count 558 X10^3/uL (150-400); Red Blood Cell Count 3.14 X10^6/uL (4.0-5.2); Red Cell Distribution Width 16.4 % (11.6-14.8); White Blood Cell Count 7.5 X10^3/uL (4.5-11.0)
--- NOTE | 2020-11-05 09:29 | PC.NURSE ---
Day shift: Pt back on AC unit at approx 0900 from MRI.
[2020-11-05 09:52] LABS: BUN Creatinine Ratio 13.7 (6-22); Blood Urea Nitrogen 16 mg/dL (7-17); Calcium 8.8 mg/dL (8.4-10.2); Carbon Dioxide 21 mmol/L (22-32); Chloride 105 mmol/L (98-107); Estimated Glomerular Filt Rate 45.9 mL/min (>60); Glucose 107 mg/dL (80-110); HEMOLYSIS < 15 (0-50); Sodium 136 mmol/L (137-145)
--- NOTE | 2020-11-05 11:40 | CM.DPC ---
Addendum entered by JANET Pruitt 11/05/20 12:55: ADD: SW met bedside with pt who was more awake and updated her on d/c plan for today and pt agreeable. SW provided the copy of Medicare Message and pt will take home in her discharge packet. SW discussed transport home and pt states Syed can transport and SW encouraged her to update him on likely late afternoon/early evening d/c so that he is prepared. Pt agreeable with d/c plan of home with [facility], [facility], and [facility] to follow for IV-Abx course. LAVINIA faxed PICC note, med Dapto, and awaiting d/c summary to fax to [facility] and [facility]. BF Original Note: DCP Discharge Home with [facility] and [facility] Per MD, pt had recommended MRI today and consulted with IDMD Dr. Jiang and recommendation for d/c is IV-Abx Dapto 400 mg 6-[address] Jiang has agreed to follow pt after d/c. LAVINIA called [facility] with update on medication change and discharge home today and they confirm they can fill this for pt but requesting pt get first Dapto dose here prior to d/c to confirm no reactions to the new med and allow for them to fill the Rx. [facility] RN will be bedside this afternoon for teaching prior to pt discharge home. Pt does not have coverage through her insurance for RN and therefore Agustin Bales is aware that [facility] will follow pt at d/c and they will coordinate with [facility] and work with [facility] for coverage for the [facility] RN initial visit/teaching with patient. LAVINIA attempted to discuss plan for d/c today with pt but she was too drowsy and could not remain awake at this time. LAVINIA will allow pt some time to rest and then confirm transport home and [facility] and [facility] plan. LAVINIA called [facility] and updated on pt d/c home late this afternoon and confirmed they have the F2F and MD orders and just need d/c summary. LAVINIA updated that [facility] plans to coordinate care with them. [facility] updated RN and MD and both agreeable to getting pt her first Dapto dose today prior to d/c this afternoon. Plan: SW to follow for faxing PICC insertion note, d/c summary with med orders to [facility] and faxing d/c summary to [facility]. JANET Pruitt
--- NOTE | 2020-11-05 12:17 | PT-IP ANOTE ---
attempted to see pt but pt is asleep. tried to wake pt up but without success. nurse stated that pt went for a procedure this morning and was given ativan and is lethargic. will f/u.
--- NOTE | 2020-11-05 12:53 | PT.IPTN ---
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) Physical Therapy Treatment Note M2 PT-IP Current Condition Start: 10/30/20 09:03 Freq: NEEDED Status: Active Protocol: Document 10/31/20 12:02 AW (Rec: 10/31/20 12:27 AW [id number]) Physical Therapy Current Condition Current Condition Evaluation Date 10/31/20 Treatment Diagnosis sepsis, UTI, generalized weakness, frequent falls Onset Date 10/29/20 Precautions Other Precautions falls; osteoporosis; contact precautions due to MRSA in nares Weight Bearing Status Weight Bearing Status Weight Bear as Tolerated Allowed Weight Bearing Amount (enter % Op note dated 05/20/20 states or #) (%) pt was WBAT following ORIF left malleolus fx nonunion. M3 PT-IP Subjective Start: 10/30/20 09:03 Freq: NEEDED Status: Active Protocol: Document 11/05/20 12:53 AB (Rec: 11/05/20 15:05 AB [id number]) Subjective Physical Therapy Visit Type Type Treatment Note Visit Start Time 12:53 Visit Stop Time 13:08 Total Visit Minutes 15 Number of PLATFORM MATERIAL HANDLING SUPERVISOR Visits 0 Physical Therapy Visit Comments Patient Comments pt is agreeable to do PT M4 PT-IP Mobility and Gait Start: 10/30/20 09:03 Freq: NEEDED Status: Active Protocol: Document 11/05/20 12:53 AB (Rec: 11/05/20 15:05 AB [id number]) PT-Bed Mobility Assessment Supine to Sit Supine to Sit Standby Assistance Sit to Supine Sit to Supine Standby Assistance PT-Transfer Assessment Sit to and From Stand Sit to and from Stand Contact Guard Assistance,1 Person Assistance,Use of Upper Extremities Equipment Transfer Assistive Device None,Gait Belt Orthotic/Prosthetic Devices or Brace: No Transfers Transfer Destination Toilet Transfer Technique ambulated to the toilet Transfer Ability Level of Assist Contact Guard Assistance,Use of Upper Extremities Comments Mobility Comments pt is drowsy but agreeable to do PT. requested to use the toilet. completed supine to sit SBA, sit to stand CGA and ambulated to the toilet without AD CGA. pt presents with unsteady gait due to drowsiness. completed toileting/brief management SBA . pt's significant other arrived. stated that he holds on to pt at home for safety. pt completed up/down step stool with her spouse assisting and completed safely . pt requested to go back to bed and completed bed mobility SBA. call light and table placed within reach. Gait Assessment Gait Gait Assistance Required: Contact Guard Assist Distance (Feet) 12 Able to Maintain Weight Bearing Status Yes During Gait Assistive Devices Assistive Device None,Gait Belt Gait Deviations General Gait Pattern Ataxic,Decreased Stride Length ,Decreased Feet Clearance Factors Limiting Gait Function Factors Limiting Gait Function Decreased Activity Tolerance, Decreased Strength,Poor Balance,Poor Safety Awareness Comments Gait Comments pls refer to mobility section for details Stair Climbing Assessment Evaluation Level of Assist On Stairs Minimal Assistance Technique/Endurance Stair Climbing Direction Ascend and Descend Stair Climbing Technique Step to Step Number of Steps Climbed 1 Stair Climbing Set # Repetitions (reps) 2 Comments Stair Climbing Comments completed with WAREHOUSE SHIPPING SUPERVISOR with spouse assisting M5 PT-IP Objective Assessments Start: 10/30/20 09:03 Freq: NEEDED Status: Active Protocol: Document 10/31/20 12:02 AW (Rec: 10/31/20 12:27 AW [id number]) Orientation Orientation/Cognition Level of Alertness Alert Orientation Name,Birthday,Month,Place, Situation Language Function Ability No Deficits Noted Safety Awareness Decreased Safety Awareness Gross Range of Motion Upper Extremity ROM Assessment Left Impaired Impairments RC injury Lower Extremity ROM Assessment Bilaterally Impaired Strength Lower Extremity Strength Assessment Bilaterally Impaired Hip 4-/5 Knee 4/5 Ankle 4-/5 Sensation Assessment Sensation Gross Sensation Left LE Impaired Light Touch Impaired Sensation Description Numbness Comments Sensation Comments Left foot numbess on exam M6 PT-IP Treatment Start: 10/30/20 09:03 Freq: NEEDED Status: Active Protocol: Document 11/05/20 12:53 AB (Rec: 11/05/20 15:05 AB [id number]) Physical Therapy Treatment Education Education Provided Safety M7 PT-IP Assessment and Plan Start: 10/30/20 09:03 Freq: NEEDED Status: Active Protocol: Document 11/05/20 12:53 AB (Rec: 11/05/20 15:05 AB [id number]) PT Summary Assessment and Plan Potential Rehabilitation Potential Fair Summary Impairments Pain,ROM,Strength,Balance, Coordination,Sensation,Tone, Cognition,Bed Mobility, Transfers,Gait,Activity Tolerance Progress Towards Goals Slow Progress due to Medical Issues Assessment Summary pt plans to go home and spouse to assist her. spouse was able to assist pt with stair climbing and stated that he assists her at home as needed. pt plans to go home later today. Goals Transfer Goal Independent Gait Goal Independent Gait Distance 100 Other Goals up/down 3 steps with no rail CGA Days to Meet Goals 10 Frequency of Treatment Frequency Of Treatment Once a Day Treatment Plan Physical Therapy Treatment Plan Bed Mobility Training,Transfer Training,Gait Training, Therapeutic Exercise,Balance Retraining,Discharge Planning, Neuromuscular Re-ed, Coordination Retraining Precautions Other Precautions falls; MRSA nares contact precautions Recommendations To Nursing Amount of Assist Needed 1 Person Assist Discharge Recommendations PT Discharge Recommendations Home with Assistance,Home Health Transportation Needs at Discharge Private Vehicle
--- NOTE | 2020-11-05 13:04 | PC.NURSE ---
Day shift: Have not received the DAPTOmyacin from pharmacy at this time ([id number]). Ordered and due at 1200 today.
[2020-11-05] MEDS: SODIUM CHLORIDE 0.9% IV (13:10)
[2020-11-05] MEDS: DAPTOMYCIN IV (13:10)
--- NOTE | 2020-11-05 16:35 | PC.NURSE ---
Patient discharged home, after receiving IV abx administration instructions from [facility] using current PICC line- family member at bedside. Discharge instructions given, patient will follow up with ID and ortho. No new medications other than IV abx, patient to continue home meds as directed. Patient and family member have no complaints or further questions/concerns about discharge.
--- NOTE | 2020-11-05 17:08 | P.DS_ITS ---
History of Present Illness History of Present Illness Chief complaint: Worsening bilateral leg weakness Narrative: Per Dr. Kavita Rosado from 10/29/20: Patient is 70-year-old female with history of chronic pain due to numerous osteoporosis fractures, CKD stage III, presents emergency department due to progressive weakness and fatigue. Patient states she has been completely exhausted over the past few weeks and has hard time even staying awake. In the past week, her legs have gotten quite weak where legs ?feel like Jell-O ?and she has a hard time walking. Her son has actually been staying at her house to help her out and kept her from falling several times. Patient also reports 15 lb weight loss in the past week with loss of appetite. She denies nausea, vomiting, abdominal pain or fevers. She has noticed foul urine odor and urinary burning for the past couple of weeks. She has not been on an antibiotic. On ED evaluation she had stable vitals. Blood work showed WBC 33.2, hemoglobin 9.8, platelets 1,153,000. Her alkaline phosphatase was elevated at 298 with normal LFTs, albumin 4.0, elevated protein 8.3 and elevated procalcitonin of 15.1. Urinalysis microscopic 10-30 WBC, many bacteria. Review of prior labs shows she had a WBC of 24.8 on 10/07/2020 and treated as outpatient for UTI. Her urine culture grew pansensitive E coli. She had a normal WBC 9.6 on 04/27/2019 although has had frequent WBC elevations in past years. Patient has chronic normocytic anemia dating back to at least March 2017 with significantly fluctuating hemoglobin values. Additionally she has had chronic platelet elevations with platelet count of 854,000 on October 07. On 04/27/2019 her platelets were 791,000 and prior to that she had fluctuating elevated platelet counts dating back to at least March 2017 which is earliest available lab results on [facility]. In March 2017 she had platelet counts of 729,000. In May 2018 she had platelet count of 1,182,000 which improved substantially on subsequent labs but never normalized. Discharge Providers Provider Date of admission: 10/29/20 14:12 Discharge Date: 11/05/20 Primary care physician: Luis Hernandez MD Consults: 10/29/20 14:41 Consult to Physical Therapy Evaluate & Treat Comment: Physician Instructions: Evaluate and Treat 10/29/20 15:37 Consult to Dietitian, Adult Routine Comment: Reason For Exam: admits to poor appetite with weight loss Consult to Pastoral Services Routine Comment: requests airline pilot flight instructor visit when available 11/02/20 15:29 Consult to Home Health Routine Comment: DX: Bilateral leg weakness Reason For Exam: Home health for RN,PT,OT Discharge provider: Gallo Oconnor MD Summary Hospital Course Discharge Diagnosis: 1. Sepsis with end-organ failure, sofa score initially 4 2. Metabolic encephalopathy due to sepsis 3. Left psoas abscess with MRSA growing from aspirate 4. Discitis/osteomyelitis of L4/L5 intravertebral connected to Left psoas abscess 5. Chronic thrombocytosis, likely reactive as improved with treatment of infection 6. Chronic iron deficiency anemia with acute anemia with no evidence of blood lo ss 7. History of multiple osteoporotic spinal and extremity fractures, chronic 8. Acute kidney injury on CKD stage 3 9. Protein calorie malnutrition with BMI of 19.6 10. Peptic ulcer disease, stable in hospital Hospital Course: Ms. Leiva was initially admitted with weakness and sepsis with altered mental status and a WBC of 33 and then developed hypotension. She had a CT scan that showed a psoas abscess. This was drained with IR and resulted in speciation of MRSA sensitive to vancomycin and daptomycin. She had a MILI drain placed which was pulled on 11/04 due to no further output. Initially her abscess was noted to be 5.7 x 2.5 x4.0 cm. After MIIL drain was removed there was residual abscess of 2cm on MRI, noted to be much improved. There was also associated phlemgonenous changes. Given that her symptoms completely improved, her WBC normalized, and she had no further fevers it was determined she did not need surgical drainage or further IR guided drainage. MRI was done to determine if any evidence of spinal involvement. She was noted to have L4/L4 intervertebral disc enhancement that appeared consistent with spread from psoas abscess. There was no evidence of epidural abscess. Her blood cultures remained negative throught her hospitalization. She did have a pansensitive E. Coli UTI for which she received 7 days of IV antibiotics which were not continued at discharge. She will need orthopedic follow up to evaluate her as an outpatient. In addition she will be referred to [facility] to manage her antibiotics. She is planned for 6-8 weeks of IV daptomycin through a PICC line with [facility] to manage. In addition, she will have twice weekly CBC with diff, BMP, CRP, ESR, and CK to be sent to [facility] clinic. Her CK was <20, her WBC 7.5, and creatinine 1.17 at discharge. Etiology of MRSA infection remained unclear, it is unlikely a urinary source as she only had E. coli in urine. She denied and IV drug use. She did state she had a injection near her spine into her hip for arthritis within a month of her admission, which may have seeded the infection. Of note she did require 2U PRBC transufsion for a hemoglobin of 6.7, she had no evidence of any acute bleeding, and after this transfusion remained stable with a discharge hemoglobin of 9.3. She also had a very elevated platelet count on admission over 1 million. This came down with improvement in her infectious symptoms. On discharge her platelets were 558k. She has had elevated platelets in the past, but given improvement it is likely reactive to infection. She did have evidence of Acute Kidney injury due to sepsis with initial creatinine of 1.52 improved to 1.17 on discharge. Status at Discharge Cognitive/behavioral status at discharge: oriented Functional status at discharge: independent ambulation (has assist at home as needed) Overall status at discharge: patient is back to baseline Time Spent with Patient Time spent: Greater than 30 minutes Exam Vital Signs (past 8 hours): - 11/05/20 09:29 11/05/20 09:51 11/05/20 12:00 Temperature 98.5 F Pulse Rate 80 73 Respiratory Rate 16 Blood Pressure 148/74 H Pulse Oximetry 97 100 11/05/20 12:40 Temperature Pulse Rate Respiratory Rate Blood Pressure Pulse Oximetry 95 Fraction of Inspired Oxygen 20 Oxygen Delivery Method Room Air Oxygen Flow Rate 0 Narrative Exam Narrative: General: no acute distress HEENT: Nontraumatic, pupils equal and reactive, oropharynx with general poor dentition Neck: No mass, no lymphadenopathy Lungs: CTA b/l Heart: Normal S1 and S2, regular rhythm, premature beats, no murmur Abdomen: Flat, soft, nontender, no hepatomegaly. L back drain now removed and site bandaged and clean. Extremities: Warm, dry without edema Neurological: no obvious cognitive deficits, speech normal. Psych: calm, cooperative with stable behavior. Objective Labs Result Diagrams: 11/05/20 09:15 11/05/20 09:00 Labs: Laboratory Results - last 24 hr 11/04/20 11/04/20 11/05/20 21:20 21:20 09:00 WBC 8.5 RBC 3.12 L Hgb 9.2 L Hct 27.9 L MCV 89.5 MCH 29.7 MCHC 33.2 RDW 16.5 H Plt Count 548 H Sodium 135 L 136 L Potassium 3.8 4.0 Chloride 105 105 Carbon Dioxide 23 21 L BUN 16 16 Creatinine 1.20 H 1.17 H Estimated GFR 44.5 L 45.9 L BUN/Creatinine Ratio 13.3 13.7 Glucose 125 H 107 Calcium 8.8 8.8 11/05/20 09:15 WBC 7.5 RBC 3.14 L Hgb 9.3 L Hct 28.2 L MCV 89.9 MCH 29.6 MCHC 33.0 RDW 16.4 H Plt Count 558 H Sodium Potassium Chloride Carbon Dioxide BUN Creatinine Estimated GFR BUN/Creatinine Ratio Glucose Calcium PFSH Medical History Anxiety Arthritis C. difficile colitis Chronic pain Colitis Compression fracture of L1 vertebra (~07/2019) COPD (chronic obstructive pulmonary disease) Depression DJD (degenerative joint disease) Fibromyalgia Fracture, tibia GI bleeding History of recurrent UTIs HLD (hyperlipidemia) Hypertension Insomnia Left foot drop Lumbar compression fracture (02/26/19) Migraines Multiple fractures Neuropathy Numbness and tingling Osteoporosis Radius fracture (08/30/17) Renal disease Surgical History H/O: hysterectomy History of surgery Hx of appendectomy Hx of cholecystectomy Hx of elbow surgery Hx of kyphoplasty (~2013) Hx of kyphoplasty (04/28/19) Hx of kyphoplasty (07/28/19) Hx of tonsillectomy Status post epidural steroid injection (03/25/19) Family History Mother No known health problems Father No known health problems Social History household members: significant other Smoking Status: Former smoker alcohol intake: current Discharge Plan Discharge Plan Patient Disposition: Home Health Service Provider Discharge Comment: Ms. Leiva was found to have both a urinary infection and a psoas abscess. IR drainage was performed which improved her symptoms. M icrobiology showed MRSA. She had MRI that showed small persistent abscess of 2cm, which was decreased after the drainage. She also had enhancement at L4/L5 disc space that communicated with the left psoas consistent with discitis. Because of this she should be treated with 6-8 weeks of daptomycin IV 400mg daily through the PICC line with [facility] to manage. She should have twice weekly blood draws with CBC with differential, BMP, CRP, ESR, and creatinine kinase. These labs should be sent to [facility]. She should have an appointment with [facility] within one week of discharge. Her discharge creatinine kinase was <20. WBC 7.5 at [place]. Creatinine 1.17. She did receive 7 days of antibiotics for her UTI and this will be discontinued at discharge. She should have orthopedic follow up for her discitis. She will need arrangement of follow up with Infectious Disease and [facility] clinic within one week of discharge. Discharge orders & Medications Prescriptions: New daptomycin 350 mg recon soln 400 mg IV Q24H Qty: 42 RF: 0 Continued metoprolol tartrate 25 MG tablet 25 mg PO BID Qty: 0 RF: 0 sucralfate 1 gram tablet 1 g PO QID RF: 0 pantoprazole 40 mg tablet,delayed release (DR/EC) 40 mg PO BID RF: 0 gabapentin 100 mg capsule 300 mg PO TID RF: 0 carisoprodol 350 mg tablet 350 mg PO TID PRN (Reason: Muscle Spasm) RF: 0 oxycodone 10 mg 10 mg PO Q4HR MDD 60 mg PRN (Reason: Pain, Moderate) RF: 0 Follow up/Referrals: Luis Hernandez MD [Primary Care Provider] - Diet/Activity/Treatments Diet: Low-sodium Activity: as tolerated Skin/Wound/Dressing Care Report to your healthcare provider any signs of infection, such as:: chills, fever and night sweats Visit Report/Discharge Packet Instructions: Urinary Tract Infection, DI for Urinary Tract Infection (UTI), How to Prevent Falls, Stool Softeners Discharge Data Primary Care Provider: Luis Hernandez Quality VTE Deep Vein Thrombosis/Pulmonary Embolism Present on Admission: No MIPS - Admit Advanced Care Plan / Current Medications Measures: #47 ? Advanced Care Plan Clinician documentation instruction: document at admission. [] I confirmed that the patient's Advance Care Plan is present, code status is documented, or surrogate decision maker is listed in the patient?s medical record. [SATISFIES MIPS PERFORMANCE] If Yes, Stop Here [] The patient?s Advance Care plan is not present because: (select) [MIPS PERFORMANCE EXCEPTION/EXCLUSION] [] I confirmed today that the patient does not wish or was not able to name a surrogate decision maker or provide an Advance Care Plan. [] Hospice care is currently being provided or has been provided this calendar year [] I did NOT confirm today the presence of an Advance Care Plan or surrogate decision maker documented within the patient's medical record. [DOES NOT SATISFY MIPS PERFORMANCE] #130 - Documentation of Current Medications in the Medical Record Clinician documentation instruction: use macro the first time you see a patient. [] I have utilized all available immediate resources to obtain, update, or review the patient?s current medications. [SATISFIES MIPS PERFORMANCE] If Yes, Stop Here [] The patient is not eligible for medication reconciliation; the patient is in an emergent medical situation where delaying treatment would jeopardize the patient?s health. [MIPS PERFORMANCE EXCEPTION/EXCLUSION] [] I did NOT confirm, update or review the patient's current list of medications today. [DOES NOT SATISFY MIPS PERFORMANCE] MIPS - CL Central Venous Catheter Placement Measure: #76 ? Prevention of Central Venous Catheter (CVC) ? Related Bloodstream Infection Clinician documentation instruction: use macro every time you place a central line. [] All elements of Maximal Sterile Barrier Technique, including hand hygiene, skin prep, and sterile ultrasound technique (if used) were followed. [SATISFIES MIPS PERFORMANCE] If Yes, Stop Here [] If ?No?, the medical reason all elements were NOT used for medical reason [] (ex. emergent condition). [] Maximal Sterile Barrier Technique was not followed, no reason provided [DOES NOT SATISFY MIPS PERFORMANCE] MIPS - DC Heart Failure Measures: #5 - Heart Failure (HF): Angiotensin-Converting Enzyme (CHRIST) Inhibitor or Angiotensin Receptor Dennise (ARB) Therapy for Left Ventricular Systolic Dysfunction (LVSD) and #8 - Heart Failure (HF): Beta-Dennise Therapy for Left Ventricular Systolic Dysfunction (LVSD) Clinician documentation instruction: use macro at every CHF discharge. [] The patient has current or prior documentation of left ventricular ejection fraction (LVEF) less than 40%, or moderate or severely depressed left ventricular systolic function. Answer both: [SATISFIES MIPS PERFORMANCE] [] The patient was prescribed or already taking an Angiotensin-Converting Enzyme (CHRIST) Inhibitor, or Angiotensin Receptor Dennise (ARB). [] The patient was prescribed or already taking a beta-dennise. If Yes to Both, Stop Here [] Patient not prescribed/taking: [MIPS PERFORMANCE EXCEPTION/EXCLUSION] [] CHRIST or ARB for medical/patient/system reason(s) including [] (ex. allergy, intolerance, contraindication) [] Beta-dennise for medical/patient/system reason(s) including [] (ex. allergy, intolerance, contraindication) [] Patient not prescribed/taking: [DOES NOT SATISFY MIPS PERFORMANCE] [] CHRIST or ARB, no reason given [] Beta-dennise, no reason given
== END 2020-11-05 16:39 | disposition home health service (06) | DRG 867 ==
LOC: ED 13:12 → AC 14:27 → ICU 10-30 09:43 → AC 10-30 11:52 → ICU 10-30 11:53
PROVIDERS: Internal Medicine; Admitting Provider Internal Medicine; Emergency Provider Emergency Medicine; PCP Family Medicine; Referring Provider Emergency Medicine; Visit Provider Internal Medicine
DX: T80.29XA Infection following other infusion, transfusion and therapeutic injection, initial encounter (principal); A41.9 Sepsis, unspecified organism; G93.41 Metabolic encephalopathy; K68.19 Other retroperitoneal abscess; R65.20 Severe sepsis without septic shock; N12 Tubulo-interstitial nephritis, not specified as acute or chronic; I47.1 Supraventricular tachycardia; E44.0 Moderate protein-calorie malnutrition; Z68.1 Body mass index [BMI] 19.9 or less, adult; M60.08 Infective myositis, other site; M46.26 Osteomyelitis of vertebra, lumbar region; N17.9 Acute kidney failure, unspecified; I95.9 Hypotension, unspecified; D47.3 Essential (hemorrhagic) thrombocythemia; M81.0 Age-related osteoporosis without current pathological fracture; D50.9 Iron deficiency anemia, unspecified; B95.62 Methicillin resistant Staphylococcus aureus infection as the cause of diseases classified elsewhere; M46.46 Discitis, unspecified, lumbar region; Z87.891 Personal history of nicotine dependence; Z20.822 Contact with and (suspected) exposure to COVID-19
CPT/HCPCS: 36415; 36430; 36569; 36592; 36600; 49405; 71045; 71250; 72157; 72158; 74177; 76700; 80048; 80053; 80305; 80320; 80329; 81003; 81015; 82728; 82805; 83540; 83550; 83605; 83615; 83690; 84145; 84443; 85007; 85025; 85027; 85610; 85730; 86850; 86900; 86901; 87040; 87070; 87075; 87077; 87086; 87147; 87186; 87205; 87635; 87797; 93005; 93010; 96361; 96365; 97116; 97162; 97530; 99284; P9016; G0480; J0696; J0878; J1642; J1644; J1650; J2060; J2185; J2250; J2270; J3010; Q9967

== ENCOUNTER 2020-11-12 10:39 | Emergency (ER) | payer MEDICARE, MEDICAID, SELFPAY ==
[2020-10-29 15:26] VITALS: BMI 19.5
[2020-11-12] VITALS (20 sets, daily range): BP systolic 111–197; BP diastolic 61–93; PULSE 49–87; RESP 11–39; TEMP 36.6–37; O2SAT 96–100; BMI 19.4
[2020-11-12 11:38] LABS: INR 1.2 (0.9-1.3); Prothrombin Time 13.1 SECONDS (10.1-12.7)
[2020-11-12 11:42] LABS: Add Manual Diff / Slide Review NO; Basophils Absolute Auto 400 /uL (0-100); Basophils Percent Auto 2.2 % (0-2); Eosinophils Absolute Auto 200 /uL (0-450); Eosinophils Percent Auto 1.4 % (2-4); Hematocrit 36.5 % (36-46); Lymphocytes Absolute Auto 2600 /uL (1100-4500); Lymphocytes Percent Auto 16.3 % (25-40); Mean Corpuscular HGB Conc 32.8 % (30-36); Mean Corpuscular Hemoglobin 29.5 PG (26-34); Mean Corpuscular Volume 90.1 fL (80-100); Monocytes Absolute Auto 800 /uL (0-900); Monocytes Percent Auto 4.7 % (3-14); Neutrophils Absolute Auto 12200 /uL (1500-7000); Neutrophils Percent Auto 75.4 % (50-75); Platelet Count 754 X10^3/uL (150-400); Red Blood Cell Count 4.05 X10^6/uL (4.0-5.2); Red Cell Distribution Width 16.4 % (11.6-14.8); White Blood Cell Count 16.2 X10^3/uL (4.5-11.0)
[2020-11-12 11:43] LABS: Alanine Aminotransferase 18 IU/L (<35); Albumin 4.1 g/dL (3.5-5.0); Albumin Globulin Ratio 1.1 (1.0-2.8); Alkaline Phosphatase 251 U/L (38-126); Aspartate Aminotransferase 37 IU/L (14-36); BUN Creatinine Ratio 24.2 (6-22); Bilirubin Total 0.2 mg/dL (0.2-1.3); Blood Urea Nitrogen 24 mg/dL (7-17); Calcium 9.8 mg/dL (8.4-10.2); Carbon Dioxide 19 mmol/L (22-32); Chloride 104 mmol/L (98-107); Estimated Glomerular Filt Rate 55.6 mL/min (>60); Globulin 3.9 g/dL (1.7-4.1); Glucose 109 mg/dL (80-110); HEMOLYSIS < 15 (0-50); Lactate (Lactic Acid) 1.1 mmol/L (0.7-2.1); Sodium 135 mmol/L (137-145)
[2020-11-12 11:46] LABS: Potassium 5.4 mmol/L (3.4-5.1)
[2020-11-12 11:54] LABS: Troponin I < 0.012 ng/mL (0.01-0.034)
[2020-11-12 11:59] LABS: Procalcitonin 0.48 ng/mL (<0.5)
[2020-11-12] MEDS: SODIUM CHLORIDE 0.9% 1,000 ML 150 ML IV (12:00)
--- NOTE | 2020-11-12 12:36 | ED_ITS ---
HPI - Dizziness General Chief Complaint: Weakness Stated Complaint: Dizziness Time Seen by Provider: 11/12/20 12:30 Source: patient and EMS Mode of arrival: EMS Limitations: no limitations History of Present Illness HPI Narrative: This is a 70-year-old female comes in with complaint of dizziness and feeling generalized weakness. Patient denies fevers, no headaches, she has chronic back pain but has not worsened. No chest pain or shortness of breath. No cough cold or congestion. No nausea or vomiting. No diarrhea. No frequency dysuria or sense of urgency. Patient has significant recent psoas abscess which was drained by IR. Patient was also noted to have a diskitis on MRI. Patient also had a positive urine culture at that time for E coli. Her abscess was drained with MRSA. Sensitivities were noted, she was discharged home on daptomycin and also completed antibiotics for her UTI. Patient blood cultures were negative x2. Patient has been continuing to get IV daptomycin, yesterday or the day before yesterday she was told that her platelets were ?lillie as well as her white count.Patient was told to follow-up but she had not established with Infectious Disease although she had been referred. Patient arrived here today after discussion with primary care office who told her to come to the ER. Patient states she has continues to have some back pain and has not worsened since she was discharged from the hospital she states after she had drainage of the abscess which was quite painful it did improve. She denies any new neurologic symptoms. Patient is requesting pain medication she states she normally takes oxycodone and Soma regularly scheduled basis. Related Data Home Medications Medication Instructions Recorded Confirmed metoprolol tartrate 25 mg PO BID #0 04/24/17 10/29/20 gabapentin 300 mg PO TID 11/07/18 10/29/20 pantoprazole 40 mg PO BID 11/07/18 10/29/20 sucralfate 1 g PO QID 01/14/19 10/29/20 carisoprodol 350 mg PO TID PRN 10/29/20 10/29/20 oxycodone 10 mg PO Q4HR PRN MDD 60 mg 10/29/20 10/29/20 Previous Rx's Medication Instructions Recorded daptomycin 400 mg IV Q24H #42 ea 11/05/20 Allergies Allergy/AdvReac Type Severity Reaction Status Date / Time tramadol [TRAMADOL] Allergy Unknown Verified 10/29/20 10:30 amitriptyline [AMITRIPTYLINE] AdvReac Intermediate Confusion Verified 10/29/20 10:30 Review of Systems Review of Systems ROS Unobtainable: All systems reviewed & are unremarkable except as noted in HPI and below Patient History Medical History Anxiety Arthritis C. difficile colitis Chronic pain Colitis Compression fracture of L1 vertebra (~07/2019) COPD (chronic obstructive pulmonary disease) Depression DJD (degenerative joint disease) Fibromyalgia Fracture, tibia GI bleeding History of recurrent UTIs HLD (hyperlipidemia) Hypertension Insomnia Left foot drop Lumbar compression fracture (02/26/19) Migraines Multiple fractures Neuropathy Numbness and tingling Osteoporosis Radius fracture (08/30/17) Renal disease Surgical History H/O: hysterectomy History of surgery Hx of appendectomy Hx of cholecystectomy Hx of elbow surgery Hx of kyphoplasty (~2013) Hx of kyphoplasty (04/28/19) Hx of kyphoplasty (07/28/19) Hx of tonsillectomy Status post epidural steroid injection (03/25/19) Family History Mother No known health problems Father No known health problems Social History household members: significant other Smoking Status: Former smoker alcohol intake: current Smoking Status: Former smoker alcohol intake frequency: holidays/special occasions only Substance Use Type: does not use and former substance user Exam Narrative Exam Narrative: GENERAL: Alert and oriented x three, thin elderly appearing female in mild distress. HEENT: Head normocephalic, atraumatic, EOMI, pupils reactive, face symmetric, moist mucous membranes NECK: Supple, full range of motion CARDIOVASCULAR: Regular rate and rhythm without murmurs, rubs or gallops. RESPIRATORY: Breath sounds equal bilaterally, no wheezes rales or rhonchi. ABDOMEN: Soft, nontender. Normoactive bowel sounds all 4 quadrants. No guarding or rebound, rigidity, no mass : No CVA tenderness BACK: No cervical, thoracic or lumbar vertebral point tenderness. Patient has normal range of motion. Patient's gait is normal. EXTREMITIES: Normal range of motion, no clubbing or edema. Neurovascularly intact. 2+ pulses bilateral lower extremities. Patient has a PICC line in her left extremity. NEUROLOGICAL: Cranial nerves II through XII grossly intact. Moving all extremities SKIN: Warm, dry, no petechiae, no rashes or lesions. Initial Vital Signs Initial Vital Signs: Vital Signs Pulse Rate 81 11/12/20 10:58 Pulse Oximetry 99 11/12/20 10:58 Course Orders Ordered: ED Orders 11/12/20 10:54 EKG-12 Lead Stat 11/12/20 11:20 C-Reactive Protein Quant Stat Complete Blood Count AUTO DIFF Stat Comprehensive Metabolic Panel Stat Erythrocyte Sedimentation Rate Stat Lactate (Lactic Acid) Stat Procalcitonin Stat Prothrombin Time INR Stat Troponin I Stat 11/12/20 13:11 CT abdomen pelvis w con Stat 11/12/20 13:46 MR lumbar spine wo/w con Stat 11/12/20 17:49 Urine Culture Stat Urine Microscopic Stat 11/12/20 18:50 Blood Culture Stat Discontinued Medications Carisoprodol (Carisoprodol 350 Mg Tablet) 350 mg PO NOW ONE Stop: 11/12/20 13:39 Last Admin: 11/12/20 13:46 Dose: 350 mg Documented by: IRINA Heparin Sodium (Porcine) (Heparin Flush (Cl/Picc/Mid-Line) 50 Unit/5 Ml Syringe) 50 unit IV PRN PRN PRN Reason: Flush Last Admin: 11/12/20 18:32 Dose: 50 unit Documented by: Admin: 11/12/20 18:31 Dose: 50 unit Documented by: IRINA Sodium Chloride (Normal Saline 0.9%) 1,000 mls @ 150 mls/hr IV CONT LACY Last Admin: 11/12/20 12:00 Dose: 150 mls/hr Documented by: IRINA Daptomycin 400 mg/ Sodium (Chloride) 50 mls @ 100 mls/hr IV NOW ONE Stop: 11/12/20 13:49 Last Infusion: 11/12/20 17:33 Dose: 0 mls/hr Documented by: Admin: 11/12/20 15:31 Dose: 100 mls/hr Documented by: IRINA Lorazepam (Lorazepam 2 Mg/Ml Inj) 1 mg IV NOW ONE Stop: 11/12/20 14:09 Last Admin: 11/12/20 14:18 Dose: 1 mg Documented by: IRINA Morphine Sulfate (Morphine 4 Mg/Ml Inj) 4 mg IV NOW ONE Stop: 11/12/20 13:38 Last Admin: 11/12/20 13:40 Dose: 4 mg Documented by: SHYANN Oxycodone HCl (Oxycodone Ir 5 Mg Tablet) 10 mg PO NOW ONE Stop: 11/12/20 16:43 Oxycodone HCl (Oxycodone Ir 5 Mg Tablet) 10 mg PO NOW ONE Stop: 11/12/20 19:17 Last Admin: 11/12/20 19:20 Dose: 10 mg Documented by: QASIM Consultations Consultation #1: Spoke with Infectious Disease, Dr. Uribe. reviewed labs, cultures, imaging patient history at length She has not followed up with her ID clinic. Dr. Uribe did speak with the [facility] at [facility] and main concern yesterday was elevated platelets in 800's and call back. She is happy to see the patient on Saturday morning at 2:00 p.m. patient consult was faxed to [phone] as requested. Time: 17:44 Vital Signs Vital signs: Vital Signs - 8 hr 11/12/20 12:00 11/12/20 12:30 11/12/20 13:00 Temperature Pulse Rate 74 71 73 Respiratory Rate 20 Blood Pressure Pulse Oximetry 97 96 96 11/12/20 13:30 11/12/20 13:47 11/12/20 14:03 Temperature Pulse Rate 74 79 49 L Respiratory Rate Blood Pressure 197/93 H Pulse Oximetry 97 99 100 11/12/20 15:36 11/12/20 15:37 11/12/20 16:00 Temperature Pulse Rate 70 71 76 Respiratory Rate 13 Blood Pressure 111/61 126/72 Pulse Oximetry 98 97 98 11/12/20 16:30 11/12/20 16:36 11/12/20 17:00 Temperature Pulse Rate 82 87 74 Respiratory Rate 39 H 36 H 14 Blood Pressure 138/80 130/73 Pulse Oximetry 97 99 11/12/20 17:30 11/12/20 18:00 11/12/20 18:30 Temperature Pulse Rate 73 74 74 Respiratory Rate 22 11 L 19 Blood Pressure 149/76 H 139/72 157/69 H Pulse Oximetry 97 99 100 11/12/20 19:26 Temperature 97.8 F Pulse Rate 75 Respiratory Rate 18 Blood Pressure 146/79 H Pulse Oximetry 100 MDM - Dizziness Lab Data Attestation: I reviewed the patient's lab results. Result diagrams: 11/12/20 11:20 11/12/20 11:20 Labs: Lab Results 11/12/20 11/12/20 11/12/20 Range/Units 11:20 11:20 11:20 WBC 16.2 H (4.5-11.0) X10^3/uL RBC 4.05 (4.0-5.2) X10^6/uL Hgb 12.0 (12.0-16.0) g/dL Hct 36.5 (36-46) % MCV 90.1 (80-100) fL MCH 29.5 (26-34) PG MCHC 32.8 (30-36) % RDW 16.4 H (11.6-14.8) % Plt Count 754 H (150-400) X10^3/uL Neut % (Auto) 75.4 H (50-75) % Lymph % (Auto) 16.3 L (25-40) % Beckham % (Auto) 4.7 (3-14) % Eos % (Auto) 1.4 L (2-4) % Baso % (Auto) 2.2 H (0-2) % Neut # (Auto) 19768 H (8687-3728) /uL Lymph # (Auto) 2600 (0268-9907) /uL Beckham # (Auto) 800 (0-900) /uL Eos # (Auto) 200 (0-450) /uL Baso # (Auto) 400 H (0-100) /uL RBC Morphology Not Reportable Anisocytosis 1+ H Stomatocytes 1+ H ESR (0-20) MM/HR PT 13.1 H (10.1-12.7) SECONDS INR 1.2 (0.9-1.3) Sodium 135 L (137-145) mmol/L Potassium 5.4 H D (3.4-5.1) mmol/L Chloride 104 (98-107) mmol/L Carbon Dioxide 19 L (22-32) mmol/L BUN 24 H (7-17) mg/dL Creatinine 0.99 (0.52-1.04) mg/dL Estimated GFR 55.6 L (>60) mL/min BUN/Creatinine Ratio 24.2 H (6-22) Glucose 109 (80-110) mg/dL Lactate (0.7-2.1) mmol/L Calcium 9.8 (8.4-10.2) mg/dL Total Bilirubin 0.2 (0.2-1.3) mg/dL AST 37 H (14-36) IU/L ALT 18 (<35) IU/L Alkaline Phosphatase 251 H (38-126) U/L Troponin I < 0.012 (0.01-0.034) ng/mL C-Reactive Protein (<1.0) mg/dL Total Protein 8.0 (6.3-8.2) g/dL Albumin 4.1 (3.5-5.0) g/dL Globulin 3.9 (1.7-4.1) g/dL Albumin/Globulin Ratio 1.1 (1.0-2.8) Procalcitonin 0.48 (<0.5) ng/mL Urine RBC (0-5/HPF) Urine WBC (0-5/HPF) Ur Squamous Epith Cells (0-5/HPF) Urine Bacteria (None) Ur Culture Indicated? 11/12/20 11/12/20 11/12/20 Range/Units 11:20 11:20 11:20 WBC (4.5-11.0) X10^3/uL RBC (4.0-5.2) X10^6/uL Hgb (12.0-16.0) g/dL Hct (36-46) % MCV (80-100) fL MCH (26-34) PG MCHC (30-36) % RDW (11.6-14.8) % Plt Count (150-400) X10^3/uL Neut % (Auto) (50-75) % Lymph % (Auto) (25-40) % Beckham % (Auto) (3-14) % Eos % (Auto) (2-4) % Baso % (Auto) (0-2) % Neut # (Auto) (2418-4728) /uL Lymph # (Auto) (1871-5034) /uL Beckham # (Auto) (0-900) /uL Eos # (Auto) (0-450) /uL Baso # (Auto) (0-100) /uL RBC Morphology Anisocytosis Stomatocytes ESR 38 H (0-20) MM/HR PT (10.1-12.7) SECONDS INR (0.9-1.3) Sodium (137-145) mmol/L Potassium (3.4-5.1) mmol/L Chloride (98-107) mmol/L Carbon Dioxide (22-32) mmol/L BUN (7-17) mg/dL Creatinine (0.52-1.04) mg/dL Estimated GFR (>60) mL/min BUN/Creatinine Ratio (6-22) Glucose (80-110) mg/dL Lactate 1.1 (0.7-2.1) mmol/L Calcium (8.4-10.2) mg/dL Total Bilirubin (0.2-1.3) mg/dL AST (14-36) IU/L ALT (<35) IU/L Alkaline Phosphatase (38-126) U/L Troponin I (0.01-0.034) ng/mL C-Reactive Protein 0.7 (<1.0) mg/dL Total Protein (6.3-8.2) g/dL Albumin (3.5-5.0) g/dL Globulin (1.7-4.1) g/dL Albumin/Globulin Ratio (1.0-2.8) Procalcitonin (<0.5) ng/mL Urine RBC (0-5/HPF) Urine WBC (0-5/HPF) Ur Squamous Epith Cells (0-5/HPF) Urine Bacteria (None) Ur Culture Indicated? 11/12/20 Range/Units 17:49 WBC (4.5-11.0) X10^3/uL RBC (4.0-5.2) X10^6/uL Hgb (12.0-16.0) g/dL Hct (36-46) % MCV (80-100) fL MCH (26-34) PG MCHC (30-36) % RDW (11.6-14.8) % Plt Count (150-400) X10^3/uL Neut % (Auto) (50-75) % Lymph % (Auto) (25-40) % Beckham % (Auto) (3-14) % Eos % (Auto) (2-4) % Baso % (Auto) (0-2) % Neut # (Auto) (9020-1725) /uL Lymph # (Auto) (8159-0665) /uL Beckham # (Auto) (0-900) /uL Eos # (Auto) (0-450) /uL Baso # (Auto) (0-100) /uL RBC Morphology Anisocytosis Stomatocytes ESR (0-20) MM/HR PT (10.1-12.7) SECONDS INR (0.9-1.3) Sodium (137-145) mmol/L Potassium (3.4-5.1) mmol/L Chloride (98-107) mmol/L Carbon Dioxide (22-32) mmol/L BUN (7-17) mg/dL Creatinine (0.52-1.04) mg/dL Estimated GFR (>60) mL/min BUN/Creatinine Ratio (6-22) Glucose (80-110) mg/dL Lactate (0.7-2.1) mmol/L Calcium (8.4-10.2) mg/dL Total Bilirubin (0.2-1.3) mg/dL AST (14-36) IU/L ALT (<35) IU/L Alkaline Phosphatase (38-126) U/L Troponin I (0.01-0.034) ng/mL C-Reactive Protein (<1.0) mg/dL Total Protein (6.3-8.2) g/dL Albumin (3.5-5.0) g/dL Globulin (1.7-4.1) g/dL Albumin/Globulin Ratio (1.0-2.8) Procalcitonin (<0.5) ng/mL Urine RBC 1-5/hpf (0-5/HPF) Urine WBC 5-10/hpf H (0-5/HPF) Ur Squamous Epith Cells None seen (0-5/HPF) Urine Bacteria None seen (None) Ur Culture Indicated? Specimen cultured Urine Dip Bedside Urine Glucose Negative Bedside Urine Bilirubin - Negative Bedside Urine Ketone - Negative Urine Specific [place]uther[place] 1.015 Bedside Urine Occult Blood - Negative Bedside Urine pH 6.0 Bedside Urine Protein +/- 15 Bedside Urine Urobilinogen - Negative Bedside Urine Nitrite - Negative Bedside Urine Leukocytes + 70 Esterase Imaging Data MRI : Radiologist's Impression: [address] [id number] Resonance ReportSigned Patient: Emani Leiva LMR#: [id number]: [id number]:[id number]/Sex: 70 / FDate of Service: 11/12/20Loc: EDAccession Number: [id number] Procedure: MR lumbar spine wo/w con Ordering Provider: Cynthia Kennedy D.O. PROCEDURE: MR LUMBAR SPINE WO/W CON INDICATIONS: ? osteo/diskitis, prior T10/11, L4/5 region November 04 TECHNIQUE: Noncontrast sagittal T1 spin echo and T2 fast spin echo, sagittal STIR, axial T1 and T2 fast spin echo through the lumbar spine. In cases with scoliosis, additional coronal T2 fast spin echo may be performed. After the administration of contrast, sagittal and axial T1 spin echo with fat saturation through the lumbar spine. COMPARISON: [facility], MR LUMBAR SPINE WO/W CON, 11/05/2020, 6:53. FINDINGS: Image quality: Excellent. Appearance of previous vertebroplasty/kyphoplasty changes from L1 through L4 are again identified. There are no visualized acute fractures or dislocations. As identified on prior exam, there is decreased T1 and increased T2 signal at L4-5 with enhancement. This remains present, although less prominent when compared to prior exam. Multilevel degenerative changes are present, stable compared to prior exam. As identified on CT exam, there is significant improvement with minimal residual left psoas abscess fluid. Enhancement within this region is again noted. Atrophic left kidney with multiple areas of calcification are noted. IMPRESSION: 1. Interval improvement of previous left psoas abscess. 2. Persistent abnormal signal enhancement at the level of L4-5 consistent with previous diagnosis of discitis/osteomyelitis. However, it is improved compared to prior exam. No epidural abscess. Dictated by: Nikia Nolasco M.D. on 11/12/2020 at 15:36 Approved by: Nikia Nolasco M.D. on 11/12/2020 at 15:40 CT scan - abdomen/pelvis: Radiologist's Impression: [address] [id number] Scan ReportSigned Patient: Emani Leiva LMR#: [id number]: 2Acct:[id number]/Sex: 70 / FDate of Service: 11/12/20Loc: EDAccession Number: [id number] Procedure: CT abdomen pelvis w con Ordering Provider: Cynthia Kennedy D.O. PROCEDURE: CT ABDOMEN PELVIS W CON INDICATIONS: psoas muscle abscess, s/p IR drainage, worsening labs. TECHNIQUE: After the administration of intravenous contrast, 5 mm thick sections acquired from the diaphragm to the symphysis. 5 mm coronal and sagittal reformats were acquired. For radiation dose reduction, the following was used: automated exposure control, adjustment of mA and/or kV according to patient size. COMPARISON: [facility], CT, CT ABDOMEN PELVIS W CON, 10/30/2020, 8:22. FINDINGS: Image quality: Excellent. ABDOMEN: Lung bases: Lung bases are clear. Heart size is normal. Solid organs: Liver is enlarged with mild steatosis. Gallbladder has been removed. There is a stable appearance of both intra and extrahepatic biliary dilation. Pancreas enhances normally. Spleen is normal in size and enhancement. No adrenal nodules. Left kidney is asymmetrically atrophic. Multiple areas of calcification are present, unchanged. Peritoneum and bowel: Bowel loops demonstrate normal wall thickness and caliber. No free fluid or air. Nodes and vessels: No retroperitoneal or mesenteric adenopathy by size criteria. Aorta and inferior vena cava are normal in size. Miscellaneous: No ventral hernias. Previous abscess within the left psoas muscle has decreased in size. Residual focus of rim enhancing fluid currently measures 15 mm AP x 8 mm transverse compared to 41 mm AP x 30 mm transverse. No new areas of abscess are identified. PELVIS: Genitourinary: Bladder wall thickness is normal. Miscellaneous: No inguinal hernias or adenopathy. Bones: No suspicious bony lesions. No vertebral body compression fractures. Percutaneous vertebral plasty/kyphoplasty is present at L1, L2, L3 and L4. Chronic T12 compression deformity is present. Similar appearance at S2 is noted. IMPRESSION: 1. Near complete interval resolution of left psoas abscess. 2. Hepatomegaly. 3. Unchanged intra and extrahepatic biliary dilation suspected to be related to post cholecystectomy sequela. Dictated by: Nikia Nolasco M.D. on 11/12/2020 at 15:32 Approved by: Nikia Nolasco M.D. on 11/12/2020 at 15:36 ECG Data Attestation: I personally reviewed and interpreted this ECG as follows: Interpretation: Sinus rhythm rate of 73 OR 158 QRS is 70 QTC [address]. No acute ST elevation or depression appreciated noted MDM Narrative Medical decision making narrative: 70-year-old female with a recent known psoas abscess which was drained by IR earlier in October as well as a diskitis/osteom yelitis. Patient continues on daptomycin. White count is elevated from when she was discharged I do not have the level available from yesterday. Platelets are also slightly elevated but not as high as on admission. Procalcitonin is negative. Imaging shows improvement from prior. Urine shows leuks but no clear infection is sent for culture. Case was discussed with infectious disease and a request blood cultures in addition. They are happy to follow with patient on Saturday at 2:00 p.m., unclear if patient is having worsening infection or a secondary infection with her elevation of white count which has been trending up fluids although her platelets are improved today in comparison to yesterday. Infectious Disease had not received a consult so 1 was sent today. Patient was given contact information as well. She states she will follow up on Saturday at the scheduled appointment. We discussed the importance of this and she is able to express her understanding. Her was at bedside for this discussion as well. Patient did request her home oxycodone and Soma prescriptions to be refilled but states she was phos to have a refill on Saturday. She was recommended to follow up with her primary care to refill these which she states she will do. Discharge Plan Departure Patient Disposition: Home Clinical Impression: Leukocytosis Activity Restrictions/Additional Instructions: Follow up with Infectious Disease on Saturday at 2pm. Call Saturday morning to verify your appointment. A consult was faxed today. It is very important that you follow up to make sure you are continuing to improve. Continue your IV daptomycin as prescribed. Your case was discussed with Infectious Disease today they would like to follow up with you on Saturday as some of your labs have elevated but others are improving. Your imaging today shows near complete resolution of your psoas abscess as well as improvement of your diskitis. You may continue your other home medications as prescribed. Please return for fevers greater 100.4 F, new or worsening symptoms, new chest pain, shortness of breath, persistent vomiting, new worsening back pain, lower extremity pain or other new or concerning symptoms. Prescriptions: No Action metoprolol tartrate 25 MG tablet 25 mg PO BID Qty: 0 RF: 0 sucralfate 1 gram tablet 1 g PO QID RF: 0 pantoprazole 40 mg tablet,delayed release (DR/EC) 40 mg PO BID RF: 0 gabapentin 100 mg capsule 300 mg PO TID RF: 0 carisoprodol 350 mg tablet 350 mg PO TID PRN (Reason: Muscle Spasm) RF: 0 oxycodone 10 mg 10 mg PO Q4HR MDD 60 mg PRN (Reason: Pain, Moderate) RF: 0 daptomycin 350 mg recon soln 400 mg IV Q24H Qty: 42 RF: 0 Referrals: Marcia Uribe MD [Non-Staff] - Luis Hernandez MD [Primary Care Provider] -
[2020-11-12 13:08] LABS: Anisocytosis 1+; Stomatocytes 1+
--- NOTE | 2020-11-12 13:11 | DI.CT.S_ITS ---
PROCEDURE: CT ABDOMEN PELVIS W CON INDICATIONS: psoas muscle abscess, s/p IR drainage, worsening labs. TECHNIQUE: After the administration of intravenous contrast, 5 mm thick sections acquired from the diaphragm to the symphysis. 5 mm coronal and sagittal reformats were acquired. For radiation dose reduction, the following was used: automated exposure control, adjustment of mA and/or kV according to patient size. COMPARISON: [facility], CT, CT ABDOMEN PELVIS W CON, 10/30/2020, 8:22. FINDINGS: Image quality: Excellent. ABDOMEN: Lung bases: Lung bases are clear. Heart size is normal. Solid organs: Liver is enlarged with mild steatosis. Gallbladder has been removed. There is a stable appearance of both intra and extrahepatic biliary dilation. Pancreas enhances normally. Spleen is normal in size and enhancement. No adrenal nodules. Left kidney is asymmetrically atrophic. Multiple areas of calcification are present, unchanged. Peritoneum and bowel: Bowel loops demonstrate normal wall thickness and caliber. No free fluid or air. Nodes and vessels: No retroperitoneal or mesenteric adenopathy by size criteria. Aorta and inferior vena cava are normal in size. Miscellaneous: No ventral hernias. Previous abscess within the left psoas muscle has decreased in size. Residual focus of rim enhancing fluid currently measures 15 mm AP x 8 mm transverse compared to 41 mm AP x 30 mm transverse. No new areas of abscess are identified. PELVIS: Genitourinary: Bladder wall thickness is normal. Miscellaneous: No inguinal hernias or adenopathy. Bones: No suspicious bony lesions. No vertebral body compression fractures. Percutaneous vertebral plasty/kyphoplasty is present at L1, L2, L3 and L4. Chronic T12 compression deformity is present. Similar appearance at S2 is noted. IMPRESSION: 1. Near complete interval resolution of left psoas abscess. 2. Hepatomegaly. 3. Unchanged intra and extrahepatic biliary dilation suspected to be related to post cholecystectomy sequela. Dictated by: Nikia Nolasco M.D. on 11/12/2020 at 15:32 Approved by: Nikia Nolasco M.D. on 11/12/2020 at 15:36
[2020-11-12] MEDS: MORPHINE 4 MG/ML INJ IV (13:40)
[2020-11-12] MEDS: carisoprodoL 350 MG TABLET PO (13:46)
--- NOTE | 2020-11-12 13:46 | DI.MRI.S_ITS ---
PROCEDURE: MR LUMBAR SPINE WO/W CON INDICATIONS: ? osteo/diskitis, prior T10/11, L4/5 region November 04 TECHNIQUE: Noncontrast sagittal T1 spin echo and T2 fast spin echo, sagittal STIR, axial T1 and T2 fast spin echo through the lumbar spine. In cases with scoliosis, additional coronal T2 fast spin echo may be performed. After the administration of contrast, sagittal and axial T1 spin echo with fat saturation through the lumbar spine. COMPARISON: [facility], , MR LUMBAR SPINE WO/W CON, 11/05/2020, 6:53. FINDINGS: Image quality: Excellent. Appearance of previous vertebroplasty/kyphoplasty changes from L1 through L4 are again identified. There are no visualized acute fractures or dislocations. As identified on prior exam, there is decreased T1 and increased T2 signal at L4-5 with enhancement. This remains present, although less prominent when compared to prior exam. Multilevel degenerative changes are present, stable compared to prior exam. As identified on CT exam, there is significant improvement with minimal residual left psoas abscess fluid. Enhancement within this region is again noted. Atrophic left kidney with multiple areas of calcification are noted. IMPRESSION: 1. Interval improvement of previous left psoas abscess. 2. Persistent abnormal signal enhancement at the level of L4-5 consistent with previous diagnosis of discitis/osteomyelitis. However, it is improved compared to prior exam. No epidural abscess. Dictated by: Nikia Nolasco M.D. on 11/12/2020 at 15:36 Approved by: Nikia Nolasco M.D. on 11/12/2020 at 15:40
[2020-11-12] MEDS: LORazepam 2 MG/ML INJ 1 MG IV (14:18)
[2020-11-12 14:48] LABS: C-Reactive Protein Quant 0.7 mg/dL (<1.0)
[2020-11-12 14:59] LABS: Erythrocyte Sedimentation Rate 38 MM/HR (0-20)
--- NOTE | 2020-11-12 17:36 | PC.NURSE ---
patient stated she has extended release oxy at home and it does not work for her. she asked for the doctor to give her the IV medication that we gave her when she got here. She stated the IV medication worked. Provider notified.
--- NOTE | 2020-11-12 18:22 | PC.NURSE ---
line will not draw from either port.
[2020-11-12 18:26] LABS: Bacteria Urine None Seen; RBC Urine 1-5/HPF (0-5/HPF)
[2020-11-12 18:27] LABS: Culture Indicated Urine Specimen Cultured; Squamous Epithelial Cell Urine None Seen (0-5/HPF); WBC Urine 5-10/HPF (0-5/HPF)
--- NOTE | 2020-11-12 18:33 | PC.NURSE ---
50ml heparin flush in each PICC lumen
[2020-11-12] MEDS: OXYCODONE IR 5 MG TABLET 10 MG PO (19:20)
--- NOTE | 2020-12-16 11:14 | PC.NURSE ---
Late Entry- RN states that Normal Saline was discontinued at 1900 prior to discharge.
== END 2020-11-12 19:29 | disposition home or self-care (01) ==
PROVIDERS: Emergency Provider Emergency Medicine; PCP Family Medicine
DX: D72.829 Elevated white blood cell count, unspecified (principal); R42 Dizziness and giddiness; M46.46 Discitis, unspecified, lumbar region
CPT/HCPCS: 36415; 72158; 74177; 80053; 81003; 81015; 83605; 84145; 84484; 85025; 85610; 85651; 86140; 87040; 87086; 93005; 96361; 96365; 96366; 96375; 99284; J0878; J1642; J2060; J2270; Q9967

== ENCOUNTER 2021-01-30 21:23 | Emergency (ER) | payer MEDICARE, MEDICAID, SELFPAY ==
[2020-10-29 15:26] VITALS: BMI 19.5
[2021-01-30 21:30] VITALS: BP 202/97; PULSE 91; RESP 16; TEMP 36.4; O2SAT 98; BMI 20.4
[2021-01-30 22:09] LABS: Add Manual Diff / Slide Review NO; Basophils Absolute Auto 300 /uL (0-100); Basophils Percent Auto 3.3 % (0-2); Eosinophils Absolute Auto 100 /uL (0-450); Eosinophils Percent Auto 1.2 % (2-4); Hematocrit 32.3 % (36-46); Hemoglobin 10.7 g/dL (12.0-16.0); Lymphocytes Absolute Auto 3800 /uL (1100-4500); Lymphocytes Percent Auto 37.1 % (25-40); Mean Corpuscular HGB Conc 33.1 % (30-36); Mean Corpuscular Hemoglobin 32.8 PG (26-34); Mean Corpuscular Volume 99.1 fL (80-100); Monocytes Absolute Auto 700 /uL (0-900); Monocytes Percent Auto 6.5 % (3-14); Neutrophils Absolute Auto 5300 /uL (1500-7000); Neutrophils Percent Auto 51.9 % (50-75); Platelet Count 608 X10^3/uL (150-400); Red Blood Cell Count 3.26 X10^6/uL (4.0-5.2); Red Cell Distribution Width 19.9 % (11.6-14.8); White Blood Cell Count 10.3 X10^3/uL (4.5-11.0)
[2021-01-30 22:11] LABS: Alanine Aminotransferase 20 IU/L (<35); Albumin 4.4 g/dL (3.5-5.0); Albumin Globulin Ratio 1.1 (1.0-2.8); Alkaline Phosphatase 195 U/L (38-126); Aspartate Aminotransferase 31 IU/L (14-36); BUN Creatinine Ratio 28.9 (6-22); Bilirubin Total 0.5 mg/dL (0.2-1.3); Blood Urea Nitrogen 43 mg/dL (7-17); Calcium 9.1 mg/dL (8.4-10.2); Carbon Dioxide 17 mmol/L (22-32); Chloride 105 mmol/L (98-107); Estimated Glomerular Filt Rate 34.7 mL/min (>60); Glucose 100 mg/dL (80-110); Lipase 51 U/L (23-300); Potassium 5.8 mmol/L (3.4-5.1); Sodium 133 mmol/L (137-145); Total Protein 8.4 g/dL (6.3-8.2)
[2021-01-30 22:12] LABS: HEMOLYSIS 78 (0-50)
[2021-01-30 22:13] VITALS: PULSE 83; O2SAT 98
[2021-01-30 22:22] LABS: Troponin I < 0.012 ng/mL (0.01-0.034)
[2021-01-30 22:24] VITALS: BP 154/81; PULSE 77; RESP 20; O2SAT 97
[2021-01-30 22:30] VITALS: PULSE 77; RESP 14; O2SAT 97
[2021-01-30 23:00] VITALS: PULSE 79; RESP 39; O2SAT 99
[2021-01-30 23:13] VITALS: BP 147/76; PULSE 79; RESP 20; O2SAT 98
--- NOTE | 2021-01-30 23:58 | ED_ITS ---
HPI - General Adult General Chief complaint: Weakness Stated complaint: Weakness Time Seen by Provider: 01/30/21 21:59 Source: EMS Mode of arrival: EMS Limitations: no limitations History of Present Illness HPI narrative: Patient is a 70-year-old female who earlier today had labs drawn as an outpatient. It was resulted that she had a potassium of 6.3. She was contacted by the ordering provider in asked to come to the emergency department for further evaluation. She states that she is having some weakness and generally does not feel very well with this is not necessarily new. Related Data Home Medications Medication Instructions Recorded Confirmed metoprolol tartrate 25 mg PO BID #0 04/24/17 10/29/20 gabapentin 300 mg PO TID 11/07/18 10/29/20 pantoprazole 40 mg PO BID 11/07/18 10/29/20 sucralfate 1 g PO QID 01/14/19 10/29/20 carisoprodol 350 mg PO TID PRN 10/29/20 10/29/20 oxycodone 10 mg PO Q4HR PRN MDD 60 mg 10/29/20 10/29/20 Previous Rx's Medication Instructions Recorded daptomycin 400 mg IV Q24H #42 ea 11/05/20 Allergies Allergy/AdvReac Type Severity Reaction Status Date / Time furosemide [From Lasix] Allergy Intermediate Rash Verified 01/31/21 01:06 tramadol [TRAMADOL] Allergy Unknown Verified 01/30/21 21:30 amitriptyline [AMITRIPTYLINE] AdvReac Intermediate Confusion Verified 01/30/21 21:30 Review of Systems Constitutional Constitutional: Reports malaise Cardiovascular Cardiovascular: Denies chest pain and Denies dyspnea Respiratory Respiratory: Denies dyspnea Gastrointestinal Gastrointestinal: Denies abdominal pain Musculoskeletal Musculoskeletal: Reports back pain Integumentary/Breasts Skin/Breast: Reports system reviewed and no additional complaints, except as documented Psychiatric Psychiatric: Reports system reviewed and no additional complaints, except as documented Hematologic/Lymphatic On Anticoagulants: No Allergic/Immunologic Allergic/Immunologic: Reports system reviewed and no additional complaints, except as documented Patient History Medical History Anxiety Arthritis C. difficile colitis Chronic pain Colitis Compression fracture of L1 vertebra (~07/2019) COPD (chronic obstructive pulmonary disease) Depression DJD (degenerative joint disease) Fibromyalgia Fracture, tibia GI bleeding History of recurrent UTIs HLD (hyperlipidemia) Hypertension Insomnia Left foot drop Lumbar compression fracture (02/26/19) Migraines Multiple fractures Neuropathy Numbness and tingling Osteoporosis Radius fracture (08/30/17) Renal disease Surgical History H/O: hysterectomy History of surgery Hx of appendectomy Hx of cholecystectomy Hx of elbow surgery Hx of kyphoplasty () Hx of kyphoplasty (04/28/19) Hx of kyphoplasty (07/28/19) Hx of tonsillectomy Status post epidural steroid injection (03/25/19) Family History Mother No known health problems Father No known health problems Social History household members: significant other Smoking Status: Never smoker alcohol intake: current Smoking Status: Never smoker alcohol intake frequency: holidays/special occasions only Substance Use Type: does not use and former substance user Exam Initial Vital Signs Initial Vital Signs: Vital Signs Temperature 97.6 F 01/30/21 21:30 Pulse Rate 91 H 01/30/21 21:30 Respiratory Rate 16 01/30/21 21:30 Blood Pressure 202/97 H 01/30/21 21:30 Pulse Oximetry 98 01/30/21 21:30 Const General: cooperative Limitations: mental status not altered HENMT Head: normal to inspection and normocephalic Resp Effort & Inspection: normal respiratory effort Auscultation: clear to auscultation bilaterally Cardio Rate: regular rate Rhythm: regular rhythm Skin Lesions: no lesions Rashes: no rashes Neuro General: patient alert and patient awake Extrem General: normal to inspection and capillary refill normal Psych Appearance: grossly normal and well kempt Course Orders Ordered: ED Orders 01/30/21 21:50 Complete Blood Count AUTO DIFF Stat Comprehensive Metabolic Panel Stat Lipase Stat Troponin I Stat 01/30/21 22:00 EKG-12 Lead Stat 01/30/21 23:59 Creatine Kinase Stat Discontinued Medications Hydrocodone Bitart/Acetaminophen (Hydrocodone/Acet 5/325 Tablet) 2 tab PO NOW ONE Stop: 01/30/21 23:59 Last Admin: 01/31/21 00:11 Dose: 2 tab Documented by: IRENA Hydrocodone Bitart/Acetaminophen (Hydrocodone/Acet 5/325 Tablet) 1 tab PO NOW ONE Stop: 01/31/21 00:05 Last Admin: 01/31/21 00:12 Dose: Not Given Documented by: IRENA Furosemide (Furosemide 40 Mg/4 Ml Vial) 40 mg IV NOW ONE Stop: 01/30/21 23:59 Last Admin: 01/31/21 00:12 Dose: 40 mg Documented by: IRENA Hydromorphone HCl (Hydromorphone 1 Mg Inj) 0.5 mg IM NOW ONE Stop: 01/31/21 00:36 Last Admin: 01/31/21 00:49 Dose: 0.5 mg Documented by: CLAIRE Sodium Chloride (Normal Saline 0.9%) 1,000 mls @ 1,000 mls/hr IV BOLUS ONE Stop: 01/31/21 00:57 Last Infusion: 01/31/21 00:32 Dose: 0 mls/hr Documented by: Admin: 01/31/21 00:12 Dose: 1,000 mls/hr Documented by: IRENA Vital Signs Vital signs: Vital Signs - 8 hr 01/30/21 22:13 01/30/21 22:24 01/30/21 22:30 Pulse Rate 83 77 77 Respiratory Rate 20 14 Blood Pressure 154/81 H Pulse Oximetry 98 97 97 01/30/21 23:00 01/30/21 23:13 01/31/21 01:07 Pulse Rate 79 79 87 Respiratory Rate 39 H 20 16 Blood Pressure 147/76 H 159/91 H Pulse Oximetry 99 98 100 Medical Decision Making Medical Records Medical records reviewed: Yes I reviewed the patient's medical records. Lab Data Lab results reviewed: Yes I reviewed the patient's lab results. Result diagrams: 01/30/21 21:50 01/30/21 21:50 Labs: Lab Results 01/30/21 01/30/21 01/31/21 Range/Units 21:50 21:50 00:04 WBC 10.3 (4.5-11.0) X10^3/uL RBC 3.26 L (4.0-5.2) X10^6/uL Hgb 10.7 L (12.0-16.0) g/dL Hct 32.3 L (36-46) % MCV 99.1 (80-100) fL MCH 32.8 (26-34) PG MCHC 33.1 (30-36) % RDW 19.9 H (11.6-14.8) % Plt Count 608 H (150-400) X10^3/uL Neut % (Auto) 51.9 (50-75) % Lymph % (Auto) 37.1 (25-40) % [place] % (Auto) 6.5 (3-14) % Eos % (Auto) 1.2 L (2-4) % Baso % (Auto) 3.3 H (0-2) % Neut # (Auto) 5300 (2387-8532) /uL Lymph # (Auto) 3800 (3685-4914) /uL [place] # (Auto) 700 (0-900) /uL Eos # (Auto) 100 (0-450) /uL Baso # (Auto) 300 H (0-100) /uL Sodium 133 L (137-145) mmol/L Potassium 5.8 H (3.4-5.1) mmol/L Chloride 105 (98-107) mmol/L Carbon Dioxide 17 L (22-32) mmol/L BUN 43 H (7-17) mg/dL Creatinine 1.49 H (0.52-1.04) mg/dL Estimated GFR 34.7 L (>60) mL/min BUN/Creatinine Ratio 28.9 H (6-22) Glucose 100 (80-110) mg/dL Calcium 9.1 (8.4-10.2) mg/dL Total Bilirubin 0.5 (0.2-1.3) mg/dL AST 31 (14-36) IU/L ALT 20 (<35) IU/L Alkaline Phosphatase 195 H (38-126) U/L Total Creatine Kinase 41 (30-135) U/L Troponin I < 0.012 (0.01-0.034) ng/mL Total Protein 8.4 H (6.3-8.2) g/dL Albumin 4.4 (3.5-5.0) g/dL Globulin 4.0 (1.7-4.1) g/dL Albumin/Globulin Ratio 1.1 (1.0-2.8) Lipase 51 (23-300) U/L ECG Data Attestation: I personally reviewed and interpreted this ECG as follows: Prior ECG tracings: not available for review Interpretation: Sinus rhythm Ventricular rate 80 Normal axis Normal QRS Normal QTC No ST T wave changes MDM Narrative Medical decision making narrative: Patient does have a history of chronic kidney disease. Her potassium today is lower than what it was earlier today. She also states that she has been drinking electrolytes solutions recently. She has no EKG changes consistent with hyperkalemia. She does have a slight bump in her creatinine. She is essentially asymptomatic from her hyperkalemia. I do not feel the patient warrants admission to the hospital. She was given Lasix here in the emergency department. She did develop hives around the area of the IV after the injection of the Lasix. She was given strict return precautions and follow-up instructions. She expressed understanding and agreement. Discharge Plan Departure Patient Disposition: Home Clinical Impression: Hyperkalemia Instructions: DI for Hyperkalemia Prescriptions: No Action metoprolol tartrate 25 MG tablet 25 mg PO BID Qty: 0 RF: 0 sucralfate 1 gram tablet 1 g PO QID RF: 0 pantoprazole 40 mg tablet,delayed release (DR/EC) 40 mg PO BID RF: 0 gabapentin 100 mg capsule 300 mg PO TID RF: 0 carisoprodol 350 mg tablet 350 mg PO TID PRN (Reason: Muscle Spasm) RF: 0 oxycodone 10 mg 10 mg PO Q4HR MDD 60 mg PRN (Reason: Pain, Moderate) RF: 0 daptomycin 350 mg recon soln 400 mg IV Q24H Qty: 42 RF: 0 Referrals: Luis Hernandez MD [Primary Care Provider] -
[2021-01-31] MEDS: HYDROCODONE/ACET 5/325 TABLET 2 TAB PO (00:11)
[2021-01-31] MEDS: FUROSEMIDE 40 MG/4 ML VIAL IV (00:12)
[2021-01-31] MEDS: SODIUM CHLORIDE 0.9% 1,000 ML 1000 ML IV (00:12)
[2021-01-31 00:31] LABS: Creatine Kinase 41 U/L (30-135)
[2021-01-31] MEDS: HYDROMORPHONE 1 MG INJ 0.5 MG IM (00:49)
[2021-01-31 01:07] VITALS: BP 159/91; PULSE 87; RESP 16; O2SAT 100
--- NOTE | 2021-01-31 01:08 | PC.NURSE ---
3 Small little Hives popped up on same arm as IV site, possibly due to Lasix administration. Dr Guzman at bedside to see patient
== END 2021-01-31 01:09 | disposition home or self-care (01) ==
PROVIDERS: Emergency Provider Emergency Medicine; PCP Family Medicine
DX: E87.5 Hyperkalemia (principal); R53.1 Weakness; R07.9 Chest pain, unspecified
CPT/HCPCS: 36415; 80053; 82550; 83690; 84484; 85025; 93005; 93010; 96372; 96374; 99284; J1170; J1940

== ENCOUNTER 2021-03-30 08:08 | Observation (INO) | payer MEDICARE, MEDICAID, SELFPAY ==
[2020-10-29 15:26] VITALS: BMI 19.5
[2021-03-30] VITALS (23 sets, daily range): BP systolic 115–155; BP diastolic 56–84; PULSE 78–114; RESP 15–27; TEMP 36.7–38.4; O2SAT 92–100; BMI 200.7; BMI 19.4
--- NOTE | 2021-03-30 08:18 | ED_ITS ---
HPI - General Adult General Chief complaint: Urogenital-Female Stated complaint: Syncope Time Seen by Provider: 03/30/21 08:08 Source: EMS Mode of arrival: EMS Limitations: altered mental status History of Present Illness HPI narrative: Patient is a 70-year-old female who is brought in by EMS for evaluation of multiple falls and confusion. Patient is very confused. She answers ?52 ?to many of the questions that she has asked. She states she is having a headache. She states she did fall this morning. She did not specifically answer why or how she fell. EMS states that she was confused upon their arrival. She was placed in a soft cervical collar. There is no reports of any blood thinners although the patient cannot confirm this. Blood sugar was 70 prior to arrival. She did receive 1 amp of D50 by EMS. Other than the headache she has no other complaints although her review of systems is very limi joon by her altered mental status. Related Data Home Medications Medication Instructions Recorded Confirmed metoprolol tartrate 25 mg tablet 25 mg PO BID #0 04/24/17 03/30/21 gabapentin 100 mg capsule 300 mg PO TID 11/07/18 03/30/21 pantoprazole 40 mg tablet,delayed 40 mg PO BID 11/07/18 03/30/21 release sucralfate 1 gram tablet 1 g PO QID 01/14/19 03/30/21 carisoprodol 350 mg tablet 350 mg PO TID PRN 10/29/20 03/30/21 oxycodone 10 mg PO Q4HR PRN MDD 60 mg 10/29/20 03/30/21 Allergies Allergy/AdvReac Type Severity Reaction Status Date / Time furosemide [From Lasix] Allergy Intermediate Rash Verified 01/31/21 01:06 tramadol [TRAMADOL] Allergy Unknown Verified 01/30/21 21:30 amitriptyline [AMITRIPTYLINE] AdvReac Intermediate Confusion Verified 01/30/21 21:30 Review of Systems Review of Systems Narrative: Very limited by her altered mental status. The positive results are listed below. Twelve symptoms was reviewed however she did answer ?52 ?to many of the questions that were asked. Constitutional Constitutional: Reports frequent falls and Reports headache(s) Eyes Eyes: Reports system reviewed and no additional complaints, except as documented ENT Ears, Nose, Mouth, and Throat: Reports headache(s) Cardiovascular Comments: She did deny chest pain Respiratory Respiratory: Reports system reviewed and no additional complaints, except as documented Gastrointestinal Gastrointestinal: Reports system reviewed and no additional complaints, except as documented Genitourinary Genitourinary: Reports system reviewed and no additional complaints, except as documented Musculoskeletal Comments: Patient denies arm or leg pain Integumentary/Breasts Skin/Breast: Reports system reviewed and no additional complaints, except as documented Neurologic Neurologic: Reports frequent falls and Reports headache(s) Psychiatric Psychiatric: Reports system reviewed and no additional complaints, except as documented Endocrine Endocrine: Reports system reviewed and no additional complaints, except as documented Hematologic/Lymphatic On Anticoagulants: No Allergic/Immunologic Allergic/Immunologic: Reports system reviewed and no additional complaints, except as documented Patient History Medical History Anxiety Arthritis C. difficile colitis Chronic pain Colitis Compression fracture of L1 vertebra (~07/2019) COPD (chronic obstructive pulmonary disease) Depression DJD (degenerative joint disease) Fibromyalgia Fracture, tibia GI bleeding History of recurrent UTIs HLD (hyperlipidemia) Hypertension Insomnia Left foot drop Lumbar compression fracture (02/26/19) Migraines Multiple fractures Neuropathy Numbness and tingling Osteoporosis Radius fracture (08/30/17) Renal disease Surgical History H/O: hysterectomy History of surgery Hx of appendectomy Hx of cholecystectomy Hx of elbow surgery Hx of kyphoplasty (~2013) Hx of kyphoplasty (04/28/19) Hx of kyphoplasty (07/28/19) Hx of tonsillectomy Status post epidural steroid injection (03/25/19) Family History Mother No known health problems Father No known health problems Social History household members: significant other Smoking Status: Never smoker alcohol intake: current Smoking Status: Never smoker alcohol intake frequency: holidays/special occasions only Substance Use Type: does not use and former substance user Exam Initial Vital Signs Initial Vital Signs: Vital Signs Pulse Rate 108 H 03/30/21 08:14 Pulse Oximetry 94 03/30/21 08:14 Const General: comfortable, well groomed and No combative Other: Smells of urine HENMT Head: normal to inspection and normocephalic Eyes General: appearance normal, both eyes and all related structures Neck Other: Rolled blanket used as soft cervical collar placed by EMS Chest Chest: No crepitus Resp Effort & Inspection: normal respiratory effort Auscultation: clear to auscultation bilaterally Cardio Rate: tachycardic Rhythm: regular rhythm GI Inspection: normal to inspection and non-distended Palpation: soft and tender (Does not appear to have tenderness) Back/Spine/Pelvis Cervical Spine: other (Rolled blanket used cervical collar placed by EMS) Skin General: no rashes or lesions noted Neuro General: patient alert, patient awake, moves all extremities and other (Patient confused) Speech: speech normal Extrem General: normal to inspection and capillary refill normal Psych Appearance: grossly normal and well kempt Scores GCS Rosalie coma scale eye opening: To sound Rosalie coma scale verbal response: Confused Rosalie coma scale motor response: Obey commands Rosalie coma scale total score: 13 Course Orders Ordered: ED Orders 03/30/21 08:16 CT cervical spine wo con Stat CT head/brain wo con Stat XR chest 1V Stat EKG-12 Lead Stat 03/30/21 08:25 COVID19 - ADMIT (PANTOGRAPHER swab/PCR) Stat Complete Blood Count AUTO DIFF Stat Comprehensive Metabolic Panel Stat Ethanol (ETOH) Stat Lactate (Lactic Acid) Stat Lipase Stat Procalcitonin Stat Troponin & CK Cardiac Panel Stat 03/30/21 08:48 Ammonia (NH3) Stat Blood Culture Stat 03/30/21 08:58 Urinalysis and Microscopic Stat Urine Culture Stat Urine Culture Stat Urine Drug Screen, Rapid Stat Sodium Chloride (Normal Saline 0.9%) 1,000 mls @ 150 mls/hr IV CONT LACY Last Admin: 03/30/21 09:26 Dose: 150 mls/hr Documented by: BATSHEVA Discontinued Medications Acetaminophen (Acetaminophen 325 Mg Tablet) 650 mg PO NOW ONE Stop: 03/30/21 08:15 Last Admin: 03/30/21 08:57 Dose: 650 mg Documented by: ДМИТРИЙ Sodium Chloride (Normal Saline 0.9%) 1,000 mls @ 1,000 mls/hr IV BOLUS ONE Stop: 03/30/21 09:13 Last Infusion: 03/30/21 10:19 Dose: 0 mls/hr Documented by: Admin: 03/30/21 08:57 Dose: 1,000 mls/hr Documented by: ДМИТРИЙ Ceftriaxone Sodium 1,000 mg/ (Sodium Chloride) 100 mls @ 200 mls/hr IV NOW ONE Stop: 03/30/21 08:15 Last Infusion: 03/30/21 09:28 Dose: 0 mls/hr Documented by: Admin: 03/30/21 08:57 Dose: 200 mls/hr Documented by: ДМИТРИЙ Vancomycin HCl (Vancomycin) 1,000 mg in 200 mls @ 200 mls/hr IV NOW ONE Stop: 03/30/21 09:48 Last Infusion: 03/30/21 10:38 Dose: 0 mls/hr Documented by: Admin: 03/30/21 09:26 Dose: 200 mls/hr Documented by: BATSHEVA Vital Signs Vital signs: Vital Signs - 8 hr 03/30/21 08:14 03/30/21 08:15 03/30/21 08:30 Temperature 101.1 F H Pulse Rate 108 H 108 H 114 H Respiratory Rate 20 Blood Pressure 121/56 L Pulse Oximetry 94 98 96 03/30/21 08:40 03/30/21 08:41 03/30/21 08:45 Temperature Pulse Rate 104 H 100 H 102 H Respiratory Rate 17 17 Blood Pressure 119/62 Pulse Oximetry 98 98 97 03/30/21 08:57 03/30/21 09:00 03/30/21 09:10 Temperature 101.1 F H Pulse Rate 101 H 103 H Respiratory Rate 27 H 27 H Blood Pressure 155/78 H Pulse Oximetry 98 100 03/30/21 09:30 Temperature Pulse Rate 101 H Respiratory Rate 24 Blood Pressure Pulse Oximetry 94 Medical Decision Making Lab Data Lab results reviewed: Yes I reviewed the patient's lab results. Result diagrams: 03/30/21 08:25 03/30/21 08:25 Labs: Lab Results 03/30/21 03/30/21 03/30/21 Range/Units 08:25 08:25 08:25 WBC 8.9 (4.5-11.0) X10^3/uL RBC 3.08 L (4.0-5.2) X10^6/uL Hgb 10.3 L (12.0-16.0) g/dL Hct 31.9 L (36-46) % MCV 103.3 H (80-100) fL MCH 33.5 (26-34) PG MCHC 32.4 (30-36) % RDW 13.8 (11.6-14.8) % Plt Count 358 (150-400) X10^3/uL Neut % (Auto) 74.7 (50-75) % Lymph % (Auto) 14.7 L (25-40) % Dolores % (Auto) 7.9 (3-14) % Eos % (Auto) 1.9 L (2-4) % Baso % (Auto) 0.8 (0-2) % Neut # (Auto) 6600 (6950-1444) /uL Lymph # (Auto) 1300 (1532-1346) /uL Dolores # (Auto) 700 (0-900) /uL Eos # (Auto) 200 (0-450) /uL Baso # (Auto) 100 (0-100) /uL Sodium 131 L (137-145) mmol/L Potassium 4.1 (3.4-5.1) mmol/L Chloride 107 (98-107) mmol/L Carbon Dioxide 15 L (22-32) mmol/L BUN 38 H (7-17) mg/dL Creatinine 1.66 H (0.52-1.04) mg/dL Estimated GFR 30.6 L (>60) mL/min BUN/Creatinine Ratio 22.9 H (6-22) Glucose 173 H (80-110) mg/dL Lactate 0.8 (0.7-2.1) mmol/L Calcium 8.6 (8.4-10.2) mg/dL Total Bilirubin 0.5 (0.2-1.3) mg/dL AST 25 (14-36) IU/L ALT 28 (<35) IU/L Alkaline Phosphatase 174 H (38-126) U/L Ammonia (9-30) umol/L Total Creatine Kinase 141 H (30-135) U/L CK-MB (CK-2) 1.23 (<2.37) ng/mL CK-MB (CK-2) Rel Index 0.9 L (1.5-5.0) % Troponin I 0.020 (0.01-0.034) ng/mL Total Protein 6.9 (6.3-8.2) g/dL Albumin 3.8 (3.5-5.0) g/dL Globulin 3.1 (1.7-4.1) g/dL Albumin/Globulin Ratio 1.2 (1.0-2.8) Lipase 12 L (23-300) U/L Procalcitonin 0.24 (<0.5) ng/mL Urine Color Urine Appearance Urine pH (4.5-8.0) Ur Specific Marshall (1.000-1.035) Urine Protein (Negative) Urine Glucose (UA) (Negative) g/dL Urine Ketones (NEGATIVE) Urine Occult Blood (Negative) Urine Nitrate (Negative) Urine Bilirubin (NEGATIVE) Urine Urobilinogen (0.2) E.U./dL Ur Leukocyte Esterase (NEGATIVE) Urine RBC (0-5/HPF) Urine WBC (0-5/HPF) Urine Bacteria (None) Ur Culture Indicated? U Opiates 300ng/mL cut (Negative) Ur Oxycodone Screen (Negative) Urine Methadone Screen (Negative) Ur Barbiturates Screen (Negative) U Tricyclic Antidepress (Negative) Ur Phencyclidine Scrn (Negative) Ur Amphetamines Screen (Negative) U Methamphetamines Scrn (Negative) Ur MDMA Scrn (Ecstasy) (Negative) U Benzodiazepines Scrn (Negative) Urine Cocaine Screen (Negative) U Marijuana (THC) Screen (Negative) Ethyl Alcohol < 10 ( - 10) mg/dL SARS-CoV-2 (PCR) (Negative) 03/30/21 03/30/21 03/30/21 Range/Units 08:25 08:48 08:58 WBC (4.5-11.0) X10^3/uL RBC (4.0-5.2) X10^6/uL Hgb (12.0-16.0) g/dL Hct (36-46) % MCV (80-100) fL MCH (26-34) PG MCHC (30-36) % RDW (11.6-14.8) % Plt Count (150-400) X10^3/uL Neut % (Auto) (50-75) % Lymph % (Auto) (25-40) % Dolores % (Auto) (3-14) % Eos % (Auto) (2-4) % Baso % (Auto) (0-2) % Neut # (Auto) (0811-4738) /uL Lymph # (Auto) (0309-0246) /uL Dolores # (Auto) (0-900) /uL Eos # (Auto) (0-450) /uL Baso # (Auto) (0-100) /uL Sodium (137-145) mmol/L Potassium (3.4-5.1) mmol/L Chloride (98-107) mmol/L Carbon Dioxide (22-32) mmol/L BUN (7-17) mg/dL Creatinine (0.52-1.04) mg/dL Estimated GFR (>60) mL/min BUN/Creatinine Ratio (6-22) Glucose (80-110) mg/dL Lactate (0.7-2.1) mmol/L Calcium (8.4-10.2) mg/dL Total Bilirubin (0.2-1.3) mg/dL AST (14-36) IU/L ALT (<35) IU/L Alkaline Phosphatase (38-126) U/L Ammonia 13 (9-30) umol/L Total Creatine Kinase (30-135) U/L CK-MB (CK-2) (<2.37) ng/mL CK-MB (CK-2) Rel Index (1.5-5.0) % Troponin I (0.01-0.034) ng/mL Total Protein (6.3-8.2) g/dL Albumin (3.5-5.0) g/dL Globulin (1.7-4.1) g/dL Albumin/Globulin Ratio (1.0-2.8) Lipase (23-300) U/L Procalcitonin (<0.5) ng/mL Urine Color Yellow Urine Appearance Slightly cloudy Urine pH 6.0 (4.5-8.0) Ur Specific Marshall <=1.005 (1.000-1.035) Urine Protein Trace H (Negative) Urine Glucose (UA) Negative (Negative) g/dL Urine Ketones Negative (NEGATIVE) Urine Occult Blood Trace-intact (Negative) Urine Nitrate Positive H (Negative) Urine Bilirubin Negative (NEGATIVE) Urine Urobilinogen 0.2 (0.2) E.U./dL Ur Leukocyte Esterase 1+ H (NEGATIVE) Urine RBC 0-1/hpf (0-5/HPF) Urine WBC 10-30/hpf H (0-5/HPF) Urine Bacteria Many (>30) H (None) Ur Culture Indicated? Specimen cultured U Opiates 300ng/mL cut (Negative) Ur Oxycodone Screen (Negative) Urine Methadone Screen (Negative) Ur Barbiturates Screen (Negative) U Tricyclic Antidepress (Negative) Ur Phencyclidine Scrn (Negative) Ur Amphetamines Screen (Negative) U Methamphetamines Scrn (Negative) Ur MDMA Scrn (Ecstasy) (Negative) U Benzodiazepines Scrn (Negative) Urine Cocaine Screen (Negative) U Marijuana (THC) Screen (Negative) Ethyl Alcohol ( - 10) mg/dL SARS-CoV-2 (PCR) Negative (Negative) 03/30/21 Range/Units 08:58 WBC (4.5-11.0) X10^3/uL RBC (4.0-5.2) X10^6/uL Hgb (12.0-16.0) g/dL Hct (36-46) % MCV (80-100) fL MCH (26-34) PG MCHC (30-36) % RDW (11.6-14.8) % Plt Count (150-400) X10^3/uL Neut % (Auto) (50-75) % Lymph % (Auto) (25-40) % Dolores % (Auto) (3-14) % Eos % (Auto) (2-4) % Baso % (Auto) (0-2) % Neut # (Auto) (2217-3235) /uL Lymph # (Auto) (1309-3092) /uL Dolores # (Auto) (0-900) /uL Eos # (Auto) (0-450) /uL Baso # (Auto) (0-100) /uL Sodium (137-145) mmol/L Potassium (3.4-5.1) mmol/L Chloride (98-107) mmol/L Carbon Dioxide (22-32) mmol/L BUN (7-17) mg/dL Creatinine (0.52-1.04) mg/dL Estimated GFR (>60) mL/min BUN/Creatinine Ratio (6-22) Glucose (80-110) mg/dL Lactate (0.7-2.1) mmol/L Calcium (8.4-10.2) mg/dL Total Bilirubin (0.2-1.3) mg/dL AST (14-36) IU/L ALT (<35) IU/L Alkaline Phosphatase (38-126) U/L Ammonia (9-30) umol/L Total Creatine Kinase (30-135) U/L CK-MB (CK-2) (<2.37) ng/mL CK-MB (CK-2) Rel Index (1.5-5.0) % Troponin I (0.01-0.034) ng/mL Total Protein (6.3-8.2) g/dL Albumin (3.5-5.0) g/dL Globulin (1.7-4.1) g/dL Albumin/Globulin Ratio (1.0-2.8) Lipase (23-300) U/L Procalcitonin (<0.5) ng/mL Urine Color Urine Appearance Urine pH (4.5-8.0) Ur Specific Marshall (1.000-1.035) Urine Protein (Negative) Urine Glucose (UA) (Negative) g/dL Urine Ketones (NEGATIVE) Urine Occult Blood (Negative) Urine Nitrate (Negative) Urine Bilirubin (NEGATIVE) Urine Urobilinogen (0.2) E.U./dL Ur Leukocyte Esterase (NEGATIVE) Urine RBC (0-5/HPF) Urine WBC (0-5/HPF) Urine Bacteria (None) Ur Culture Indicated? U Opiates 300ng/mL cut Negative (Negative) Ur Oxycodone Screen Positive H (Negative) Urine Methadone Screen Negative (Negative) Ur Barbiturates Screen Negative (Negative) U Tricyclic Antidepress Negative (Negative) Ur Phencyclidine Scrn Negative (Negative) Ur Amphetamines Screen Negative (Negative) U Methamphetamines Scrn Negative (Negative) Ur MDMA Scrn (Ecstasy) Negative (Negative) U Benzodiazepines Scrn Negative (Negative) Urine Cocaine Screen Negative (Negative) U Marijuana (THC) Screen Negative (Negative) Ethyl Alcohol ( - 10) mg/dL SARS-CoV-2 (PCR) (Negative) Urine Dip Bedside Urine Glucose Negative Bedside Urine Bilirubin - Negative Bedside Urine Ketone - Negative Urine Specific Marshall 1.015 Bedside Urine Occult Blood - Negative Bedside Urine pH 6.0 Bedside Urine Protein +/- 15 Bedside Urine Urobilinogen - Negative Bedside Urine Nitrite + Positive Bedside Urine Leukocytes + 70 Esterase Point of care testing: Urine Dip Bedside Urine Glucose Negative Bedside Urine Bilirubin - Negative Bedside Urine Ketone - Negative Urine Specific Marshall 1.015 Bedside Urine Occult Blood - Negative Bedside Urine pH 6.0 Bedside Urine Protein +/- 15 Bedside Urine Urobilinogen - Negative Bedside Urine Nitrite + Positive Bedside Urine Leukocytes + 70 Esterase Imaging Data Chest x-ray: Radiologist's Impression: [address] [id number] ReportSigned Patient: Emani Leiva LMR#: [id number]: [id number]:[id number]/Sex: 70 / FDate of Service: 03/30/21Loc: EDAccession Number: [id number] Procedure: XR chest 1V Ordering Provider: Collin Guzman D.O. PROCEDURE: XR CHEST 1V INDICATIONS: sepsis eval for PNA TECHNIQUE: One view of the chest was acquired. COMPARISON: [facility], CT, CT ABDOMEN PELVIS WITH CONTRAST, 02/11/2021, 10:02. [facility], CR, XR CHEST 1V, 10/30/2020, 13:54. [facility], CR, XR CHEST 1V, 10/29/2020, 14:14. FINDINGS: Surgical changes and devices: Right humerus hardware. Lungs and pleura: Hazy airspace opacity most pronounced in the left upper lobe. No silhouetting at the hemidiaphragm. Bilateral prominent interstitial markings. No pleural effusions or pneumothorax. Mediastinum: Mediastinal contours appear unchanged. Heart size is at the upper limits of normal. Bones and chest wall: No suspicious bony lesions. Overlying soft tissues appear unremarkable. IMPRESSION: Left upper lobe airspace opacity. This could represent pneumonia. Additional prominent interstitial markings bilaterally. These findings could be due to pulmonary edema. Less likely atelectasis. Dictated by: Heath Scales M.D. on 03/30/2021 at 8:39 Approved by: Heath Scales M.D. on 03/30/2021 at 8:43 CT scan - head: Radiologist's Impression: [address] [id number] Scan ReportSigned Patient: Emani Leiva LMR#: [id number]: [id number]:[id number]/Sex: 70 / FDate of Service: 03/30/21Loc: EDAccession Number: [id number] Procedure: CT head/brain wo con Ordering Provider: Collin Guzman D.O. PROCEDURE: CT HEAD/BRAIN WO CON INDICATIONS: fall with AMS TECHNIQUE: Noncontrast 4.5 mm thick angled axial sections acquired from the foramen magnum to the vertex, with coronal and sagittal reformats. For radiation dose reduction, the following was used: automated exposure control, adjustment of mA and/or kV according to patient size. COMPARISON: [facility], CT, BRAIN W/O CONTRAST, 10/22/2014, 13:46. [facility], CT, CT HEAD/BRAIN WO CON, 10/07/2020, 10:54. FINDINGS: Image quality: Excellent. CSF spaces: Basal cisterns are patent. No extra-axial fluid collections. Ventricles are normal in size and shape. Brain: No midline shift. No intracranial masses or hemorrhage. Bran-white matter interface is normal. Skull and face: Calvarium and visualized facial bones are intact, without suspicious lesions. Sinuses: Visualized sinuses and mastoids are clear. IMPRESSION: 1. No acute intracranial process. Dictated by: Nikia Nolasco M.D. on 03/30/2021 at 8:48 Approved by: Nikia Nolasco M.D. on 03/30/2021 at 8:49 CT - cervical spine: Radiologist's Impression: [address] Scan ReportSigned Patient: Emani Leiva LMR#: [id number]: 2Acct:[id number]/Sex: 70 / FDate of Service: 03/30/21Loc: EDAccession Number: [id number] Procedure: CT cervical spine wo con Ordering Provider: Collin Guzman D.O. PROCEDURE: CT CERVICAL SPINE WO CON INDICATIONS: fall AMS TECHNIQUE: Noncontrast 3 mm thick sections acquired from the skull base to the T4 level. Sagittal and coronal reformats were then constructed. For radiation dose reduction, the following was used: automated exposure control, adjustment of mA and/or kV according to patient size. COMPARISON: None. FINDINGS: Image quality: Excellent. Bones: No fractures or dislocations. Visualized superior ribs are intact. Cervical straightening is present. There is trace anterolisthesis of C2 on C3, trace retrolisthesis of C4 on C5. Multilevel degenerative disc space narrowing is present as well as anterior osteophytes. Soft tissues: Prevertebral soft tissues are normal in thickness. No paravertebral hematomas. No apical pneumothoraces. IMPRESSION: Multilevel degenerative changes without visualized fracture. Dictated by: Nikia Nolasco M.D. on 03/30/2021 at 8:49 Approved by: Nikia Nolasco M.D. on 03/30/2021 at 8:52 ECG Data Attestation: I personally reviewed and interpreted this ECG as follows: Interpretation: Sinus tachycardia Ventricular rate 103 Normal axis Normal QRS Normal QTC No ST T wave changes MDM Narrative Medical decision making narrative: Patient has a GCS 13. She is somewhat altered. She is able to provide some HPI review of systems however it is very limited. She does have a nitrite positive urine. Also a chest x-ray concerning for pneumonia. She was given Rocephin and vancomycin. Her lactate CBC procalcitonin all unremarkable. She has never been hypotensive. Cultures were obtained. Discussed the case with Dr. campos on-call for hospitalist service who will admit for further evaluation and treatment. Discharge Plan Departure Patient Disposition: Admitted As Inpatient Clinical Impression: Urinary tract infection, Pneumonia, Altered mental status
[2021-03-30 08:34] LABS: Add Manual Diff / Slide Review NO; Basophils Absolute Auto 100 /uL (0-100); Basophils Percent Auto 0.8 % (0-2); Eosinophils Absolute Auto 200 /uL (0-450); Eosinophils Percent Auto 1.9 % (2-4); Hematocrit 31.9 % (36-46); Hemoglobin 10.3 g/dL (12.0-16.0); Lymphocytes Absolute Auto 1300 /uL (1100-4500); Lymphocytes Percent Auto 14.7 % (25-40); Mean Corpuscular HGB Conc 32.4 % (30-36); Mean Corpuscular Hemoglobin 33.5 PG (26-34); Mean Corpuscular Volume 103.3 fL (80-100); Monocytes Absolute Auto 700 /uL (0-900); Monocytes Percent Auto 7.9 % (3-14); Neutrophils Absolute Auto 6600 /uL (1500-7000); Neutrophils Percent Auto 74.7 % (50-75); Platelet Count 358 X10^3/uL (150-400); Red Blood Cell Count 3.08 X10^6/uL (4.0-5.2); Red Cell Distribution Width 13.8 % (11.6-14.8); White Blood Cell Count 8.9 X10^3/uL (4.5-11.0)
[2021-03-30 08:47] LABS: Alanine Aminotransferase 28 IU/L (<35); Albumin 3.8 g/dL (3.5-5.0); Albumin Globulin Ratio 1.2 (1.0-2.8); Alkaline Phosphatase 174 U/L (38-126); Aspartate Aminotransferase 25 IU/L (14-36); BUN Creatinine Ratio 22.9 (6-22); Bilirubin Total 0.5 mg/dL (0.2-1.3); Blood Urea Nitrogen 38 mg/dL (7-17); Calcium 8.6 mg/dL (8.4-10.2); Carbon Dioxide 15 mmol/L (22-32); Chloride 107 mmol/L (98-107); Creatine Kinase 141 U/L (30-135); Estimated Glomerular Filt Rate 30.6 mL/min (>60); Ethanol (ETOH) < 10 mg/dL; Globulin 3.1 g/dL (1.7-4.1); Glucose 173 mg/dL (80-110); HEMOLYSIS 24 (0-50); Lactate (Lactic Acid) 0.8 mmol/L (0.7-2.1); Lipase 12 U/L (23-300); Potassium 4.1 mmol/L (3.4-5.1); Sodium 131 mmol/L (137-145); Total Protein 6.9 g/dL (6.3-8.2)
[2021-03-30] MEDS: cefTRIAXone 1,000 MG in SODIUM CHLORIDE 0.9% 100 ML 200 ML IV (08:57)
[2021-03-30] MEDS: SODIUM CHLORIDE 0.9% 1,000 ML 1000 ML IV (08:57)
[2021-03-30] MEDS: ACETAMINOPHEN 325 MG TABLET 650 MG PO ×2 (08:57→14:42)
[2021-03-30 09:02] LABS: CKMB % Relative Index 0.9 % (1.5-5.0); Creatine Kinase MB 1.23 ng/mL (<2.37)
[2021-03-30 09:03] LABS: Procalcitonin 0.24 ng/mL (<0.5)
[2021-03-30 09:08] LABS: Bilirubin Urine UA NEGATIVE (NEGATIVE); Color Urine UA YELLOW; Glucose Urine UA NEGATIVE (Negative); Ketones Urine UA NEGATIVE (NEGATIVE); Leukocyte Esterase Urine UA 1+ (NEGATIVE); Nitrite Urine UA POSITIVE (Negative); Occult Blood Urine UA TRACE-INTACT (Negative); Protein Urine UA TRACE (Negative); Specific Gravity Urine UA <=1.005 (1.000-1.035); Urobilinogen Urine UA 0.2 E.U./dL (0.2)
[2021-03-30 09:12] LABS: Appearance Urine UA Slightly Cloudy
[2021-03-30 09:12] LABS: Ammonia (NH3) 13 umol/L (9-30)
[2021-03-30 09:13] LABS: Ur Creatinine Normal (Normal); Ur Specific Gravity Normal (Normal); Urine pH Normal (Normal)
[2021-03-30 09:14] LABS: UR Morphine/Opiate cutoff 300 Negative (Negative); Urine Amphetamines Negative (Negative); Urine Barbiturates Negative (Negative); Urine Benzodiazepines Negative (Negative); Urine Cocaine Negative (Negative); Urine MDMA Negative (Negative); Urine Methadone Negative (Negative); Urine Methamphetamines Negative (Negative); Urine Oxycodone Positive (Negative); Urine Phencyclidine Negative (Negative); Urine Tetrahydrocannabinol Negative (Negative); Urine Tricyclic Antidepressant Negative (Negative)
[2021-03-30 09:26] LABS: Bacteria Urine Many (>30); Culture Indicated Urine Specimen Cultured; RBC Urine 0-1/HPF (0-5/HPF); WBC Urine 10-30/HPF (0-5/HPF)
[2021-03-30] MEDS: SODIUM CHLORIDE 0.9% 1,000 ML 150 ML IV (09:26)
[2021-03-30] MEDS: VANCOMYCIN 1,000 MG/200 ML PIGGYBACK 200 MG IV (09:26)
[2021-03-30 09:28] LABS: COVID19 - ADMIT (NP swab/PCR) Negative (Negative)
--- NOTE | 2021-03-30 10:00 | PC.NURSE ---
Notified Dr Guzman of patients request for pain meds. No new orders d/t altered mental status.
--- NOTE | 2021-03-30 13:09 | P.HP_ITS ---
History of Present Illness History of Present Illness Chief complaint: Syncope Narrative: The patient is a 70-year-old female with a history of chronic pain, compression fractures, COPD, fibromyalgia, and a history of recurrent urinary tract infections who presented to the hospital for frequent falls. Patient st ates that when she gets a kidney infection she has difficulty with her balance. Over the past 2 nights she has been falling at home. The patient did hit her head. However head CT in the emergency department revealed no evidence of acute bleed. The patient's significant other encouraged her to come to the emergency room if she has had previous falls associated with urinary tract infections. In the emergency room her white count was normal at 8.9, serum lactate was normal as well, however the patient was found to have a urinalysis which was positive for nitrites, 10-30 wbc's, and many bacteria. The urine culture was sent for culture and sensitivity. The patient received IV ceftriaxone in the emergency department, she also received 1 dose of vancomycin. She was admitted to the hospital for further evaluation. According to the note from Dr. Rick zamora the patient was quite confused upon arrival. However since admission to the hospital she has had clearing of her mental status. Patient is admitted to the hospital for treatment of severe sepsis secondary to urinary tract infection. Patient History Medical History Anxiety Arthritis C. difficile colitis Chronic pain Colitis Compression fracture of L1 vertebra (~07/2019) COPD (chronic obstructive pulmonary disease) Depression DJD (degenerative joint disease) Fibromyalgia Fracture, tibia GI bleeding History of recurrent UTIs HLD (hyperlipidemia) Hypertension Insomnia Left foot drop Lumbar compression fracture (02/26/19) Migraines Multiple fractures Neuropathy Numbness and tingling Osteoporosis Radius fracture (08/30/17) Renal disease Surgical History H/O: hysterectomy History of surgery Hx of appendectomy Hx of cholecystectomy Hx of elbow surgery Hx of kyphoplasty (~2013) Hx of kyphoplasty (04/28/19) Hx of kyphoplasty (07/28/19) Hx of tonsillectomy Status post epidural steroid injection (03/25/19) Family & Social History Family History (Updated 03/30/21 @ 13:22 by Yuliana Logan MD) Mother No known health problems COPD (chronic obstructive pulmonary disease) Father No known health problems Social History: household members significant other Safety & Behavioral: Feels Safe in Current Yes Environment Been Physically Hurt or No Threatened By a Person Tobacco & Substance use: Tobacco type cigarettes,e-cigarettes Smoking Status Never smoker alcohol intake current alcohol intake frequency holiday/special occasion Substance Use Type does not use,former substance user Meds Home Medications and Allergies Home Medications Medication Instructions Recorded Confirmed Type metoprolol tartrate 25 mg tablet 25 mg PO BID #0 04/24/17 03/30/21 History gabapentin 100 mg capsule 300 mg PO TID 11/07/18 03/30/21 History pantoprazole 40 mg tablet,delayed 40 mg PO BID 11/07/18 03/30/21 History release sucralfate 1 gram tablet 1 g PO QID 01/14/19 03/30/21 History carisoprodol 350 mg tablet 350 mg PO TID PRN 10/29/20 03/30/21 History oxycodone 10 mg PO Q4HR PRN MDD 60 mg 10/29/20 03/30/21 History Allergies Allergy/AdvReac Type Severity Reaction Status Date / Time furosemide [From Lasix] Allergy Intermediate Rash Verified 01/31/21 01:06 tramadol [TRAMADOL] Allergy Unknown Verified 01/30/21 21:30 amitriptyline [AMITRIPTYLINE] AdvReac Intermediate Confusion Verified 01/30/21 21:30 Review of Systems Review of Systems Narrative: 10 point review of system is negative except as described above Exam Vital Signs (past 8 hours): - 03/30/21 08:14 03/30/21 08:15 03/30/21 08:30 Temperature 101.1 F H Pulse Rate 108 H 108 H 114 H Respiratory Rate 20 Blood Pressure 121/56 L Pulse Oximetry 94 98 96 03/30/21 08:40 03/30/21 08:41 03/30/21 08:45 Temperature Pulse Rate 104 H 100 H 102 H Respiratory Rate 17 17 Blood Pressure 119/62 Pulse Oximetry 98 98 97 03/30/21 08:57 03/30/21 09:00 03/30/21 09:10 Temperature 101.1 F H Pulse Rate 101 H 103 H Respiratory Rate 27 H 27 H Blood Pressure 155/78 H Pulse Oximetry 98 100 03/30/21 09:30 03/30/21 09:49 03/30/21 09:58 Temperature Pulse Rate 101 H 101 H 98 H Respiratory Rate 24 25 H Blood Pressure 130/59 L 135/64 Pulse Oximetry 94 100 99 03/30/21 10:00 03/30/21 10:30 03/30/21 11:00 Temperature Pulse Rate 98 H 98 H 101 H Respiratory Rate 17 23 20 Blood Pressure 142/65 H 115/57 L 135/62 Pulse Oximetry 100 92 99 03/30/21 11:11 03/30/21 11:30 03/30/21 12:00 Temperature 98.4 F Pulse Rate 97 H 96 H Respiratory Rate 16 15 Blood Pressure 119/58 L 130/61 Pulse Oximetry 98 100 03/30/21 12:42 Temperature 99.8 F H Pulse Rate 104 H Respiratory Rate 18 Blood Pressure 133/84 Pulse Oximetry 100 Oxygen Delivery Method Room Air Oxygen Flow Rate 0 Narrative Exam Narrative: Pleasant elderly female lying in bed in no obvious distress [facility] Other: HEENT: Normocephalic atraumatic, extraocular muscles are intact, orophar ynx is clear, she is edentulous in the upper area of her mild Eyes Other: Sclerae anicteric, no conjunctival injection, her extraocular muscles are intact Neck Other: Neck is supple without adenopathy thyromegaly Chest Other: Lungs are clear to auscultation Cardio Other: Cardiac exam regular rate and rhythm normal S1-S2 with a 3/6 systolic ejection murmur GI Other: Abdomen soft nontender nondistended, no hepatosplenomegaly, no board-like rigidity, no rebound tenderness Other: [place] catheter in place Neuro Other: Neuro exam is nonfocal Extrem Other: Extremity revealed no edema Objective Labs Result Diagrams: 03/30/21 08:25 03/30/21 08:25 Labs: Laboratory Results - last 24 hr 03/30/21 03/30/21 03/30/21 08:25 08:25 08:25 WBC 8.9 RBC 3.08 L Hgb 10.3 L Hct 31.9 L MCV 103.3 H MCH 33.5 MCHC 32.4 RDW 13.8 Plt Count 358 Neut % (Auto) 74.7 Lymph % (Auto) 14.7 L [place] % (Auto) 7.9 Eos % (Auto) 1.9 L Baso % (Auto) 0.8 Neut # (Auto) 6600 Lymph # (Auto) 1300 [place] # (Auto) 700 Eos # (Auto) 200 Baso # (Auto) 100 Sodium 131 L Potassium 4.1 Chloride 107 Carbon Dioxide 15 L BUN 38 H Creatinine 1.66 H Estimated GFR 30.6 L BUN/Creatinine Ratio 22.9 H Glucose 173 H Lactate 0.8 Calcium 8.6 Total Bilirubin 0.5 AST 25 ALT 28 Alkaline Phosphatase 174 H Ammonia Total Creatine Kinase 141 H CK-MB (CK-2) 1.23 CK-MB (CK-2) Rel Index 0.9 L Troponin I 0.020 Total Protein 6.9 Albumin 3.8 Globulin 3.1 Albumin/Globulin Ratio 1.2 Lipase 12 L Procalcitonin 0.24 Urine Color Urine Appearance Urine pH Ur Specific [place] Urine Protein Urine Glucose (UA) Urine Ketones Urine Occult Blood Urine Nitrate Urine Bilirubin Urine Urobilinogen Ur Leukocyte Esterase Urine RBC Urine WBC Urine Bacteria Ur Culture Indicated? U Opiates 300ng/mL cut Ur Oxycodone Screen Urine Methadone Screen Ur Barbiturates Screen U Tricyclic Antidepress Ur Phencyclidine Scrn Ur Amphetamines Screen U Methamphetamines Scrn Ur MDMA Scrn (Ecstasy) U Benzodiazepines Scrn Urine Cocaine Screen U Marijuana (THC) Screen Ethyl Alcohol < 10 SARS-CoV-2 (PCR) 03/30/21 03/30/21 03/30/21 08:25 08:48 08:58 WBC RBC Hgb Hct MCV MCH MCHC RDW Plt Count Neut % (Auto) Lymph % (Auto) [place] % (Auto) Eos % (Auto) Baso % (Auto) Neut # (Auto) Lymph # (Auto) [place] # (Auto) Eos # (Auto) Baso # (Auto) Sodium Potassium Chloride Carbon Dioxide BUN Creatinine Estimated GFR BUN/Creatinine Ratio Glucose Lactate Calcium Total Bilirubin AST ALT Alkaline Phosphatase Ammonia 13 Total Creatine Kinase CK-MB (CK-2) CK-MB (CK-2) Rel Index Troponin I Total Protein Albumin Globulin Albumin/Globulin Ratio Lipase Procalcitonin Urine Color Yellow Urine Appearance Slightly cloudy Urine pH 6.0 Ur Specific [place] <=1.005 Urine Protein Trace H Urine Glucose (UA) Negative Urine Ketones Negative Urine Occult Blood Trace-intact Urine Nitrate Positive H Urine Bilirubin Negative Urine Urobilinogen 0.2 Ur Leukocyte Esterase 1+ H Urine RBC 0-1/hpf Urine WBC 10-30/hpf H Urine Bacteria Many (>30) H Ur Culture Indicated? Specimen cultured U Opiates 300ng/mL cut Ur Oxycodone Screen Urine Methadone Screen Ur Barbiturates Screen U Tricyclic Antidepress Ur Phencyclidine Scrn Ur Amphetamines Screen U Methamphetamines Scrn Ur MDMA Scrn (Ecstasy) U Benzodiazepines Scrn Urine Cocaine Screen U Marijuana (THC) Screen Ethyl Alcohol SARS-CoV-2 (PCR) Negative 03/30/21 08:58 WBC RBC Hgb Hct MCV MCH MCHC RDW Plt Count Neut % (Auto) Lymph % (Auto) [place] % (Auto) Eos % (Auto) Baso % (Auto) Neut # (Auto) Lymph # (Auto) [place] # (Auto) Eos # (Auto) Baso # (Auto) Sodium Potassium Chloride Carbon Dioxide BUN Creatinine Estimated GFR BUN/Creatinine Ratio Glucose Lactate Calcium Total Bilirubin AST ALT Alkaline Phosphatase Ammonia Total Creatine Kinase CK-MB (CK-2) CK-MB (CK-2) Rel Index Troponin I Total Protein Albumin Globulin Albumin/Globulin Ratio Lipase Procalcitonin Urine Color Urine Appearance Urine pH Ur Specific [place] Urine Protein Urine Glucose (UA) Urine Ketones Urine Occult Blood Urine Nitrate Urine Bilirubin Urine Urobilinogen Ur Leukocyte Esterase Urine RBC Urine WBC Urine Bacteria Ur Culture Indicated? U Opiates 300ng/mL cut Negative Ur Oxycodone Screen Positive H Urine Methadone Screen Negative Ur Barbiturates Screen Negative U Tricyclic Antidepress Negative Ur Phencyclidine Scrn Negative Ur Amphetamines Screen Negative U Methamphetamines Scrn Negative Ur MDMA Scrn (Ecstasy) Negative U Benzodiazepines Scrn Negative Urine Cocaine Screen Negative U Marijuana (THC) Screen Negative Ethyl Alcohol SARS-CoV-2 (PCR) Assessment & Plan Assessment & Plan narrative: Impression 1. 70-year-old female admitted to the hospital with severe sepsis secondary to urinary tract infection -patient presented with acute metabolic encephalopathy -she also appears to have worsening renal insufficiency likely related to her sepsis -UA positive for bacteria, and nitrite -lactate is normal, WBC 8.9, no hypotension -will continue IV hydration, continue IV ceftriaxone, will hold further vancomycin at this time -head CT obtained in the emergency room reveals no acute intracranial process -chest x-ray suggests left upper lobe airspace opacity, question pneumonia, verses pulmonary edema versus pulmonary edema -will repeat procalcitonin, check proBNP, and continue ceftriaxone, patient has no clinical symptoms to suggest acute pneumonia at this time 2. Hypertension -continue metoprolol 3. Chronic back pain -continue usual home medications to include [place], and as needed oxycodone 4. GERD, possible history of peptic ulcer disease -continue PPI for now 5. Acute on chronic renal insufficiency -patient with stage III chronic kidney failure -will continue IV hydration -will repeat basic metabolic panel in the morning -will avoid nephrotoxic agents -consider CT of the chest if the patient normalizes her renal function Patient indicates she is a full code will note that her record accordingly. She states her son is her surrogate decision I have utilized all available resources, opportunities, to review the patient's current medications.
--- NOTE | 2021-03-30 14:17 | PC.NURSE ---
Assess- Patient is alert and oriented x2. She does not know the date, she does not know the day of the week, but does know that the year is 2020. She is being admitted for urosepsis, you putting out yellow urine. Patient is comfortable and visiting with her .
[2021-03-30] MEDS: GABAPENTIN 300 MG CAPSULE PO ×2 (14:42→21:02)
[2021-03-30] MEDS: DEXTROSE 5%-0.9% NS 1,000 ML 100 ML IV (14:42)
--- NOTE | 2021-03-30 14:56 | PT-IP ANOTE ---
PT reviews chart and checks on pt and speaks with nurse. Nurse states that pt will be best for PT evaluation tomorrow morning. Will check back on pt then.
[2021-03-30 15:32] LABS: Add Manual Diff / Slide Review NO; Basophils Absolute Auto 100 /uL (0-100); Basophils Percent Auto 1.3 % (0-2); Eosinophils Absolute Auto 200 /uL (0-450); Eosinophils Percent Auto 1.9 % (2-4); Hematocrit 30.2 % (36-46); Hemoglobin 9.9 g/dL (12.0-16.0); Lymphocytes Absolute Auto 1700 /uL (1100-4500); Mean Corpuscular HGB Conc 32.7 % (30-36); Mean Corpuscular Hemoglobin 33.9 PG (26-34); Mean Corpuscular Volume 103.7 fL (80-100); Monocytes Absolute Auto 800 /uL (0-900); Monocytes Percent Auto 9.4 % (3-14); Neutrophils Absolute Auto 5600 /uL (1500-7000); Neutrophils Percent Auto 67.4 % (50-75); Platelet Count 372 X10^3/uL (150-400); Red Blood Cell Count 2.91 X10^6/uL (4.0-5.2); Red Cell Distribution Width 14.1 % (11.6-14.8); White Blood Cell Count 8.4 X10^3/uL (4.5-11.0)
[2021-03-30 15:34] LABS: BUN Creatinine Ratio 23.5 (6-22); Blood Urea Nitrogen 31 mg/dL (7-17); Calcium 8.6 mg/dL (8.4-10.2); Carbon Dioxide 14 mmol/L (22-32); Chloride 114 mmol/L (98-107); Estimated Glomerular Filt Rate 39.9 mL/min (>60); Glucose 87 mg/dL (80-110); HEMOLYSIS 19 (0-50); Potassium 4.1 mmol/L (3.4-5.1); Sodium 136 mmol/L (137-145)
[2021-03-30] MEDS: OXYCODONE IR 10 MG TABLET PO (15:45)
[2021-03-30] MEDS: METOPROLOL ER 25 MG TABLET PO (21:02)
[2021-03-30] MEDS: diphenhydrAMINE 25 MG TABLET PO (21:02)
[2021-03-30] MEDS: PANTOPRAZOLE DR 40 MG TABLET PO (21:03)
[2021-03-30] MEDS: DOCUSATE 100 MG CAPSULE PO (21:03)
--- NOTE | 2021-03-31 00:12 | PC.NURSE ---
Sleeping soundly will monitor & assess her when she wakes up.
[2021-03-31] MEDS: DEXTROSE 5%-0.9% NS 1,000 ML 100 ML IV (00:31)
[2021-03-31 02:00] VITALS: BP 148/73; PULSE 83; RESP 14; TEMP 36.7; O2SAT 100
[2021-03-31 05:53] VITALS: BP 141/71; PULSE 81; RESP 14; TEMP 36.8; O2SAT 99
[2021-03-31] MEDS: OXYCODONE IR 10 MG TABLET PO ×2 (05:53→12:17)
[2021-03-31] MEDS: PANTOPRAZOLE DR 40 MG TABLET PO (06:57)
[2021-03-31 07:33] VITALS: BP 142/80; PULSE 87; RESP 16; TEMP 37.3; O2SAT 96
--- NOTE | 2021-03-31 09:20 | CM.DANOTE ---
Addendum entered by Sienna Perez LPN 03/31/21 11:13: Case discussed in Team Rounds. Dr. Logan states pt is eager for a d/c to home and knows she is not interested in HH followup. She planned to see pt again today while [place] was still at bedside. A check in now shows pt with a d/c to home setting and PCP followup planned. Addendum entered by Sienna Perez LPN 03/31/21 09:27: Checked in with Jacqueline Giraldo who confirms pt no longer open to HH services but is needed again they can accept the referral. Pt did state that she did not need or want PT at home at this time but see that PT eval is ordered here so will await recommendation and follow accordingly. Original Note: Discharge Planning/Care Management DCP: assessment: case received, EMR reviewed and met with pt and her long time partner Syed Castillo. Introduced self and role. Pt is a 70 year old female who admitted yesterday to care of hospitalist team. PCP: Luis Hernandez Payer: Medicare and Medicaid. Pt confirms she remains on the [employer] program with her current caregiver coming from a new agency. I fired the caregiver from [facility] and the whole agency. She says she has the caregiver 5 days a week, several hours each day. She has had [facility]le[facility] in past as well as IV antibiotics at home with [facility] (set up during her last admission to in October 2020.) Pt says Dr. Logan has told her she may be able to go home today and that she is hopeful this will happen. Syed confirms he will be taking her home. P: discuss in Team Rounds and follow prn for d/c issues, options. CM Discharge Assessment Start: 03/31/21 09:18 Freq: Status: Active Protocol: Document 03/31/21 09:18 ITV (Rec: 03/31/21 09:20 ITV [id number]) Discharge Planning Assessment Advance Directives? No Advance Directives on File No History Provided By Patient,Significant Other, Medical Record Has Patient been admitted in last 30 No days? Household Members significant other Is patient alert and oriented? Yes Review Status In Process
--- NOTE | 2021-03-31 09:22 | PT.IIE ---
Medical History (Last Reviewed 03/30/21 @ 13:22 by Yuliana Logan MD) Anxiety Arthritis C. difficile colitis Chronic pain Colitis Compression fracture of L1 vertebra (~07/2019) COPD (chronic obstructive pulmonary disease) Depression DJD (degenerative joint disease) Fibromyalgia Fracture, tibia GI bleeding History of recurrent UTIs HLD (hyperlipidemia) Hypertension Insomnia Left foot drop Lumbar compression fracture (02/26/19) Migraines Multiple fractures Neuropathy Numbness and tingling Osteoporosis Radius fracture (08/30/17) Renal disease Physical Therapy Inpatient Evaluation/Re-Eval M1 PT/OT-IP Prior Functional Status Start: 03/30/21 14:55 Freq: Status: Active Protocol: Document 03/31/21 08:32 MB (Rec: 03/31/21 09:22 MB [id number]) Medical Review Prior Functional Status Medical History Reviewed Yes Communication Pt has decreased memory and safety awareness when asked about previous falls and admissions Mobility and Gait Pt reports that she has so have someone nearby to hold onto for all gait that that specialists have told her that a walker will not be helpful and may make her a higher fall risk d/t Raynaud's and neuropathy Activities of Daily Living and IADL's Caregiver assist for all ADLs Social History Household Members significant other Living Arrangements House Number of Floors (Floors) One Floor Number of Stairs To Enter/Railing? 3 steps and no rail. She holds onto a caregiver when she goes in and out of the house. Home Equipment Manual Wheelchair Employment Status Retired Additional Social History Comment Pt lives in house with significant other and caregiver assist 5 days a week for all ADLs. PT attempts to ask DME questions and pt perseverates on inability to use AD d/t Raynaud's and neuropathy and that a doctor told her if she feel with a walker, it would hit her in the chest. Decreased insight to current falling without AD. She does not answer all of PT 's questions well. She has a life alert button. M2 PT-IP Current Condition Start: 03/30/21 14:55 Freq: Status: Active Protocol: Document 03/31/21 08:32 MB (Rec: 03/31/21 09:22 MB [id number]) Physical Therapy Current Condition Current Condition Evaluation Date 03/31/21 Treatment Diagnosis UTI, syncope, falls Onset Date History of falls and hospitalizations Precautions Other Precautions Fall risk M3 PT-IP Subjective Start: 03/30/21 14:55 Freq: Status: Active Protocol: Document 03/31/21 08:32 MB (Rec: 03/31/21 09:22 MB [id number]) Subjective Physical Therapy Visit Type Type Initial Evaluation Visit Start Time 08:32 Visit Stop Time 08:52 Total Visit Minutes 20 Number of POULTRY PINNER Visits 0 Physical Therapy Visit Comments Patient Comments Pt asks for gabapentin and nsg arriving to check on medications at end of treatment Patient Goals To go home today Therapy Pain Assessment Pain When Pain Assessed Rest/mobil Pain Present Pain Present Pain Reported Location bladder Intensity 0 Scale Used LanzaPaxton (Faces) Description Chronic,With Movement Pain Management Techniques Distraction,Re-positioning M4 PT-IP Mobility and Gait Start: 03/30/21 14:55 Freq: Status: Active Protocol: Document 03/31/21 08:32 MB (Rec: 03/31/21 09:22 MB [id number]) PT-Bed Mobility Assessment Rolling Type of Rolling Roll to Right Level of Assist Standby Assistance Supine to Sit Supine to Sit Standby Assistance,1 Person Assistance,Head of Bed Elevated,Bedrails Scooting Scooting to Edge of Bed Independent PT-Transfer Assessment Sit to and From Stand Sit to and from Stand Standby Assistance Equipment Transfer Assistive Device Gait Belt,Front Wheeled Walker Orthotic/Prosthetic Devices or Brace: No Transfers Transfer Destination Bed Transfer Technique Gait Transfer Ability Level of Assist Standby Assistance Comments Mobility Comments Pain comment first: Pt reports high pain and is able to laugh and joke with PT. She does not give pain rating when asked and FACEs scale is 0/10 Pt mobilizes pretty well in the bed, to EOB and with multiple sit to stands when talking. She is adamant about a walker not helping her d/t her Raynaud's and neuropathy and the PT ed pt that she does need to try the walker so PT can guard her and manage IV pole and she does fine with the walker. Superv to SBA for bed mobility and transfers Gait Assessment Gait Gait Assistance Required: Standby Assistance,Contact Guard Assist Distance (Feet) 20 Able to Maintain Weight Bearing Status Yes During Gait Assistive Devices Assistive Device Gait Belt,Front Wheeled Walker Orthotic/Prosthetic Devices or Brace: No Gait Deviations General Gait Pattern Antalgic,Decreased Stride Length,Decreased Feet Clearance,Flexed Trunk,Step-to Gait Factors Limiting Gait Function Factors Limiting Gait Function Decreased Strength,Limited Range of Motion,Pain,Poor Balance,Poor Safety Awareness Comments Gait Comments Pt con't to be distracted talking about how she cannot use a walker d/t her Raynaud's and neuropathy and how specialists have told her not to use one. Her use of walker is fine and she presents with decreased step-length, foot clearance, narrow TAHIR. She states that one day, she will have to go to a nsg home because she can only walk holding onto someone. Decreased insight that she is doing fine with the walker and needs to demonstrate moving more safely in acute setting to help decrease fall risk and injury at d/c. PT attempts to educate pt throughout assessment about these. Stair Climbing Assessment Comments Stair Climbing Comments Pt becomes hyperfocused on wanting pain medication when nsg arrives and so PT stopped, left pt up in the chair, PT recommends to nsg for catheter to be removed. Left with nsg nearby and call logan in hand. 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 Once PT starts to ask about PLOF and walker, pt becomes hyperfocused on not being able to use an AD at home. When nsg arrives, she becomes focused on asking for pain medication. Gross Range of Motion Upper Extremity ROM Impairments Limitations all joints and pt does not stay on task well enough to demonstrate movement Lower Extremity ROM Impairments As above Strength Comments Strength Comments Strength testing not MMT d/t pt with poor participation Sensation Assessment Sensation Gross Sensation Right UE Impaired,Left UE Impaired,Right LE Impaired, Left LE Impaired Comments Sensation Comments Pt reports Raynaud's B hands and neuropathy B feet M7 PT-IP Assessment and Plan Start: 03/30/21 14:55 Freq: Status: Active Protocol: Document 03/31/21 08:32 MB (Rec: 03/31/21 09:22 MB [id number]) PT Summary Assessment and Plan Potential Rehabilitation Potential Fair Status of Condition at Evaluation Evolving Summary Impairments Pain,Balance,Sensation,Gait, Activity Tolerance Assessment Summary Pt is a 70 y/o female who states that she is feeling a lot better today and is ready to get up with PT upon PT arrival. She jokes and laughs during treatment. Once PT starts to ask about PLOF and AD, pt becomes hyperfocused on not being able to use RW d/t Raynaud's both hands and neuropathy in her feet. She states that many specialists have told her that a walker would increase her fall risk. PT points out that she is falling without an AD. Pt reports that caregivers and significant other help her with all ADLs and gait in the house. She is not leaving the house d/t not having been vaccinated against COVID. Her BP in LUE (small cuff in room) is high today and she presents with negative orthostatics. Supine 160/76, 85; standing 154/100, 97; standing 188/92, 87. She states her BP only goes up when she is in a lot of pain. Unclear pt's pain level as she does not answer question and she is laughing with PT. Overall, she is close to her baseline, is at high fall risk , is not receptive to AD and safety education and will require 24 hour assist at d/c. Pt cannot focus for PT to ask about her willingness to participate with skilled services at home. SW can offer . Goals Bed Mobility Goal Independent Transfer Goal Independent Gait Goal Minimal Assistance Gait Distance 50 Other Goals Gait 50' holding onto therapist's arm as pt refuses AD despite recommendation. Ascend and descend 3 steps with MOBILE PARAMEDICAL EXAMINER/UE support to allow safe home entrance. Frequency of Treatment Frequency Of Treatment Once a Day Treatment Plan Physical Therapy Treatment Plan Bed Mobility Training,Transfer Training,Gait Training, Discharge Planning Precautions Other Precautions Fall risk Recommendations To Nursing Amount of Assist Needed 1 Person Assist Discharge Recommendations PT Discharge Recommendations Home with 24/7 Assist Available,Home Health Transportation Needs at Discharge Private Vehicle
[2021-03-31 09:23] VITALS: BP 154/100; PULSE 63
[2021-03-31] MEDS: METOPROLOL ER 25 MG TABLET PO (09:23)
[2021-03-31] MEDS: ENOXAPARIN 30 MG/0.3 ML SYRINGE SUBCUT (09:25)
[2021-03-31] MEDS: DOCUSATE 100 MG CAPSULE PO (09:25)
[2021-03-31] MEDS: GABAPENTIN 300 MG CAPSULE PO ×2 (09:26→15:11)
[2021-03-31] MEDS: ACETAMINOPHEN 325 MG TABLET 650 MG PO ×2 (09:26→15:13)
[2021-03-31] MEDS: carisoprodoL 350 MG TABLET PO ×2 (09:33→15:12)
[2021-03-31] MEDS: cefTRIAXone 1,000 MG in SODIUM CHLORIDE 0.9% 100 ML 200 ML IV (12:45)
[2021-03-31 13:00] VITALS: BP 169/77; PULSE 85; RESP 16; TEMP 37.1; O2SAT 98
[2021-03-31 15:11] VITALS: BP 154/76; PULSE 65
--- NOTE | 2021-04-01 18:23 | P.DS_ITS ---
History of Present Illness History of Present Illness Chief complaint: Syncope Narrative: The patient is a 70-year-old female with a history of chronic pain, compression fractures, COPD, fibromyalgia, and a history of recurrent urinary tract infections who presented to the hospital for frequent falls. Patient st ates that when she gets a kidney infection she has difficulty with her balance. Over the past 2 nights she has been falling at home. The patient did hit her head. However head CT in the emergency department revealed no evidence of acute bleed. The patient's significant other encouraged her to come to the emergency room if she has had previous falls associated with urinary tract infections. In the emergency room her white count was normal at 8.9, serum lactate was normal as well, however the patient was found to have a urinalysis which was positive for nitrites, 10-30 wbc's, and many bacteria. The urine culture was sent for culture and sensitivity. The patient received IV ceftriaxone in the emergency department, she also received 1 dose of vancomycin. She was admitted to the hospital for further evaluation. According to the note from Dr. Rick zamora the patient was quite confused upon arrival. However since admission to the hospital she has had clearing of her mental status. Patient is admitted to the hospital for treatment of severe sepsis secondary to urinary tract infection. Discharge Providers Provider Date of admission: 03/30/21 10:47 Discharge Date: 03/31/21 Primary care physician: Luis Hernandez MD Consults: 03/30/21 13:07 Consult to Physical Therapy Evaluate & Treat Comment: Physician Instructions: Evaluate and Treat Discharge provider: Yuliana Logan MD Summary Hospital Course Discharge Diagnosis: 1. Urinary tract infection, present on admission 2. Severe sepsis secondary to urinary tract infection 3. Acute metabolic encephalopathy 4. Hypertension 5. Chronic back 6. GERD 7. Acute on chronic renal insufficiency Hospital Course: Patient was admitted to the hospital placed on IV antibiotics and IV fluids. She had significant improvement in her mental status the following day. Urine cultures grew Gram-negative rods. Patient was seen by physical therapy. Although she was somewhat unsteady on her feet she refused home health. Patient does have copious workers at home 8 hours per day and felt this was adequate. She had no further confusion. She felt back to her baseline. She was deemed appropriate for discharge and arrangements were made to discharge her home. The patient did report frequent recurrent urinary tract infections. 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 She was given a referral to Dr. Cueto for urological consultation as an outpatient. Patient had no fever, she was back to baseline, she was deemed appropriate for discharge and arrangements were made to discharge her home. Status at Discharge Cognitive/behavioral status at discharge: oriented Functional status at discharge: uses cane/walker Overall status at discharge: patient is back to baseline Exam Vital Signs (past 8 hours): Oxygen Delivery Method Room Air Oxygen Flow Rate 0 Narrative Exam Narrative: Pleasant female resting comfortably Resp Other: Lungs clear to auscultation Cardio Other: Cardiac exam: Regular rate rhythm normal S1-S2 with a 2/6 systolic ejection murmur GI Other: Abdomen soft nontender nondistended Extrem Other: Extremity no edema Objective Labs Result Diagrams: 03/30/21 15:01 03/30/21 15:01 [facility] Medical History Anxiety Arthritis C. difficile colitis Chronic pain Colitis Compression fracture of L1 vertebra (~07/2019) COPD (chronic obstructive pulmonary disease) Depression DJD (degenerative joint disease) Fibromyalgia Fracture, tibia GI bleeding History of recurrent UTIs HLD (hyperlipidemia) Hypertension Insomnia Left foot drop Lumbar compression fracture (02/26/19) Migraines Multiple fractures Neuropathy Numbness and tingling Osteoporosis Radius fracture (08/30/17) Renal disease Surgical History H/O: hysterectomy History of surgery Hx of appendectomy Hx of cholecystectomy Hx of elbow surgery Hx of kyphoplasty (~2013) Hx of kyphoplasty (04/28/19) Hx of kyphoplasty (07/28/19) Hx of tonsillectomy Status post epidural steroid injection (03/25/19) Family History (Updated 03/30/21 @ 13:22 by Yuliana Logan MD) Mother No known health problems COPD (chronic obstructive pulmonary disease) Father No known health problems Social History household members: significant other Smoking Status: Never smoker alcohol intake: current Discharge Assessment & Plan Assessment and Plan Assessment: 1. Severe sepsis, present on admission, resolved 2. Acute metabolic encephalopathy, present on admission 3. Urinary tract infection 4. Gait abnormality 5. Hypertension 6. GERD 7. Chronic renal insufficiency Plan of Treatment: Medications as prescribed Follow-up with Dr. Cueto as an outpatient Follow-up with your PCP next week Discharge Plan Discharge Plan Patient Disposition: Home Discharge orders & Medications Prescriptions: New levofloxacin 250 mg tablet 250 mg PO DAILY 7 Days RF: 0 Continued metoprolol tartrate 25 MG tablet 25 mg PO BID Qty: 0 RF: 0 sucralfate 1 gram tablet 1 g PO QID RF: 0 pantoprazole 40 mg tablet,delayed release (DR/EC) 40 mg PO BID RF: 0 gabapentin 100 mg capsule 300 mg PO TID RF: 0 carisoprodol 350 mg tablet 350 mg PO TID PRN (Reason: Muscle Spasm) RF: 0 oxycodone 10 mg 10 mg PO Q4HR MDD 60 mg PRN (Reason: Pain, Moderate) RF: 0 Medication counseling provided by Pharmacist: Yes Follow up/Referrals: Luis Hernandez MD [Primary Care Provider] - Keely Cueto MD [Physician] - (frequent UTI's history of urethral stenosis) Discharge Health Status Multidrug resistant organism: No MDRO Diet/Activity/Treatments Diet: Diet as Tolerated Skin/Wound/Dressing Care Report to your healthcare provider any signs of infection, such as:: chills, fever Visit Report/Discharge Packet Instructions: DI for Pneumonia -- Adult, DI for Urinary Tract Infection (UTI) Discharge Data Primary Care Provider: Luis Hernandez Attending Provider: Yuliana Logan VTE Deep Vein Thrombosis/Pulmonary Embolism Present on Admission: No
== END 2021-03-31 15:35 | disposition home or self-care (01) ==
LOC: ED 10:14 → AC 11:16
PROVIDERS: Admitting Provider Internal Medicine; Emergency Provider Emergency Medicine; PCP Family Medicine; Referring Provider Emergency Medicine; Visit Provider Internal Medicine
DX: N39.0 Urinary tract infection, site not specified (principal); A41.9 Sepsis, unspecified organism; G93.41 Metabolic encephalopathy; R65.20 Severe sepsis without septic shock; M54.9 Dorsalgia, unspecified; K21.9 Gastro-esophageal reflux disease without esophagitis; I12.9 Hypertensive chronic kidney disease with stage 1 through stage 4 chronic kidney disease, or unspecified chronic kidney disease; N18.30 Chronic kidney disease, stage 3 unspecified; Z20.822 Contact with and (suspected) exposure to COVID-19
CPT/HCPCS: 36415; 51701; 70450; 71045; 72125; 80048; 80053; 80305; 80320; 81001; 81003; 82140; 82550; 82553; 83605; 83690; 84145; 84484; 85025; 87040; 87077; 87086; 87186; 87635; 93005; 96361; 96365; 96366; 96367; 96372; 97161; 99285; C9803; G0378; J0696; J1650

== ENCOUNTER 2021-04-05 13:05 | Emergency (ER) | payer MEDICARE, MEDICAID, SELFPAY ==
[2021-03-30 16:42] VITALS: BMI 19.4
[2021-04-05 13:22] VITALS: BP 204/98; PULSE 71; RESP 22; TEMP 36.7; O2SAT 97
--- NOTE | 2021-04-05 13:27 | DI.RAD.S_ITS ---
PROCEDURE: XR HUMERUS RT 2V INDICATIONS: fall TECHNIQUE: 2 views of the humerus were acquired. COMPARISON: [facility], CR, XR ELBOW RT 2V, 07/11/2018, 20:34. FINDINGS: Bones: Postsurgical changes compatible with ORIF of right humerus fracture and elbow arthroplasty stable in appearance compared to July 11, 2018. Orthopedic hardware is intact. No new lucencies at the bone-hardware interface. No acute fracture or dislocations. No suspicious bony lesions. Soft tissues: No suspicious soft tissue calcifications. IMPRESSION: No acute fracture. No acute osseous lesion. If symptoms and/or clinical suspicion for pathology persists, further assessment with repeat radiographs (7-10 days) or advanced imaging (e.g. CT, MRI or bone scan) should be considered. Dictated by: Idalia Guerrero MD, PhD on 04/05/2021 at 13:42 Approved by: Idalia Guerrero MD, PhD on 04/05/2021 at 13:45
--- NOTE | 2021-04-05 15:32 | ED_ITS ---
HPI - General Adult General Chief complaint: Extremity Injury, Upper Stated complaint: xray upper right arm/ fell/ has plates Time Seen by Provider: 04/05/21 15:22 Source: patient and family Mode of arrival: Ambulatory History of Present Illness HPI narrative: 70-year-old female who was just recently discharged from the hospital after being admitted for altered mental status and urinary tract infection. During that time she also had multiple falls. She is here today with complaints of right elbow discomfort. She has not fallen since she was discharged from the hospital. She does have pain medication at home that she has been taking that she states has not provide much relief. Related Data Home Medications Medication Instructions Recorded Confirmed metoprolol tartrate 25 mg tablet 25 mg PO BID #0 04/24/17 03/30/21 gabapentin 100 mg capsule 300 mg PO TID 11/07/18 03/30/21 pantoprazole 40 mg tablet,delayed 40 mg PO BID 11/07/18 03/30/21 release sucralfate 1 gram tablet 1 g PO QID 01/14/19 03/30/21 carisoprodol 350 mg tablet 350 mg PO TID PRN 10/29/20 03/30/21 oxycodone 10 mg PO Q4HR PRN MDD 60 mg 10/29/20 03/30/21 Previous Rx's Medication Instructions Recorded levofloxacin 250 mg tablet 250 mg PO DAILY 7 Days tab 03/31/21 Allergies Allergy/AdvReac Type Severity Reaction Status Date / Time furosemide [From Lasix] Allergy Intermediate Rash Verified 01/31/21 01:06 tramadol [TRAMADOL] Allergy Unknown Verified 01/30/21 21:30 amitriptyline [AMITRIPTYLINE] AdvReac Intermediate Confusion Verified 01/30/21 21:30 Review of Systems Constitutional Constitutional: Reports system reviewed and no additional complaints, except as documented Musculoskeletal Musculoskeletal: Reports as per HPI Integumentary/Breasts Skin/Breast: Reports system reviewed and no additional complaints, except as documented Neurologic Neurologic: Reports system reviewed and no additional complaints, except as documented Hematologic/Lymphatic On Anticoagulants: No Patient History Medical History Anxiety Arthritis C. difficile colitis Chronic pain Colitis Compression fracture of L1 vertebra (~07/2019) COPD (chronic obstructive pulmonary disease) Depression DJD (degenerative joint disease) Fibromyalgia Fracture, tibia GI bleeding History of recurrent UTIs HLD (hyperlipidemia) Hypertension Insomnia Left foot drop Lumbar compression fracture (02/26/19) Migraines Multiple fractures Neuropathy Numbness and tingling Osteoporosis Radius fracture (08/30/17) Renal disease Surgical History H/O: hysterectomy History of surgery Hx of appendectomy Hx of cholecystectomy Hx of elbow surgery Hx of kyphoplasty (~2013) Hx of kyphoplasty (04/28/19) Hx of kyphoplasty (07/28/19) Hx of tonsillectomy Status post epidural steroid injection (03/25/19) Family History (Updated 03/30/21 @ 13:22 by Yuliana Logan MD) Mother No known health problems COPD (chronic obstructive pulmonary disease) Father No known health problems Social History household members: significant other Smoking Status: Never smoker alcohol intake: current Smoking Status: Never smoker alcohol intake frequency: holidays/special occasions only Substance Use Type: does not use and former substance user Exam Initial Vital Signs Initial Vital Signs: Vital Signs Temperature 98.1 F 04/05/21 13:22 Pulse Rate 71 04/05/21 13:22 Respiratory Rate 22 04/05/21 13:22 Blood Pressure 204/98 H 04/05/21 13:22 Pulse Oximetry 97 04/05/21 13:22 HENMT Head: normal to inspection Resp Auscultation: clear to auscultation bilaterally Cardio Rate: regular rate Skin General: no rashes or lesions noted Neuro General: patient alert, patient awake and moves all extremities Extrem Other: Tenderness to palpation on the distal portion of the humerus. Lateral and posterior. Psych Appearance: grossly normal and well kempt Course Orders Ordered: ED Orders 04/05/21 13:27 XR humerus RT 2V Stat Vital Signs Vital signs: Vital Signs - 8 hr 04/05/21 13:22 Temperature 98.1 F Pulse Rate 71 Respiratory Rate 22 Blood Pressure 204/98 H Pulse Oximetry 97 Medical Decision Making Imaging Data Extremity x-ray #1: Radiologist's Impression: [address] [id number] ReportSigned Patient: Emani Leiva LMR#: [id number]: 1950cct:[id number]/Sex: 70 / FDate of Service: 04/05/21Loc: EDAccession Number: [id number] Procedure: XR humerus RT 2V Ordering Provider: Collin Guzman D.O. PROCEDURE: XR HUMERUS RT 2V INDICATIONS: fall TECHNIQUE: 2 views of the humerus were acquired. COMPARISON: [facility], , XR ELBOW RT 2V, 07/11/2018, 20:34. FINDINGS: Bones: Postsurgical changes compatible with ORIF of right humerus fracture and elbow arthroplasty stable in appearance compared to July 11, 2018. Orthopedic hardware is intact. No new lucencies at the bone-hardware interface. No acute fracture or dislocations. No suspicious bony lesions. Soft tissues: No suspicious soft tissue calcifications. IMPRESSION: No acute fracture. No acute osseous lesion. If symptoms and/or clinical suspicion for pathology persists, further assessment with repeat radiographs (7- 10 days) or advanced imaging (e.g. CT, MRI or bone scan) should be considered. Dictated by: Idalia Guerrero MD, PhD on 04/05/2021 at 13:42 Approved by: Idalia Guerrero MD, PhD on 04/05/2021 at 13:45 [facility] Narrative Medical decision making narrative: X-ray does not show any signs of a fracture however she does have hardware around the area where she is sore. The does not appear to be any fractures of the hardware. I feel we can hold on further workup for now. There are no changes to her skin. She has pain medication at home. Will have her contact her orthopedic doctor for follow-up. She was given return precautions. She expressed understanding and agreement. Discharge Plan Departure Patient Disposition: Home Clinical Impression: Arm pain, right Instructions: DI for Elbow Pain Activity Restrictions/Additional Instructions: The x-ray today does not show any signs of an acute fracture and all of the hardware appears to be intact. Recommend that you continue all of your home pain medication and talk with your orthopedic doctor about a follow-up and to discuss any workup if needed. Prescriptions: No Action metoprolol tartrate 25 MG tablet 25 mg PO BID Qty: 0 RF: 0 sucralfate 1 gram tablet 1 g PO QID RF: 0 pantoprazole 40 mg tablet,delayed release (DR/EC) 40 mg PO BID RF: 0 gabapentin 100 mg capsule 300 mg PO TID RF: 0 carisoprodol 350 mg tablet 350 mg PO TID PRN (Reason: Muscle Spasm) RF: 0 oxycodone 10 mg 10 mg PO Q4HR MDD 60 mg PRN (Reason: Pain, Moderate) RF: 0 levofloxacin 250 mg tablet 250 mg PO DAILY 7 Days RF: 0 Referrals: Luis Hernandez MD [Primary Care Provider] -
--- NOTE | 2021-04-05 15:57 | PC.NURSE ---
DARIEN pain after multiple falls. no deformity noted. 2+ pulse. XR obtained.
== END 2021-04-05 16:04 | disposition home or self-care (01) ==
PROVIDERS: Emergency Provider Emergency Medicine; PCP Family Medicine
DX: M25.521 Pain in right elbow (principal); Z91.81 History of falling
CPT/HCPCS: 73060; 99283

== ENCOUNTER 2021-04-14 15:46 | Inpatient (IN) | payer MEDICARE, MEDICAID, SELFPAY ==
[2021-03-30 16:42] VITALS: BMI 19.4
[2021-04-14] VITALS (31 sets, daily range): BP systolic 146–226; BP diastolic 70–109; PULSE 63–92; RESP 9–37; TEMP 36.4–36.7; O2SAT 80–100; BMI 19.8; BMI 20.2
--- NOTE | 2021-04-14 17:20 | DI.RAD.S_ITS ---
PROCEDURE: XR CHEST 1V INDICATIONS: weakness TECHNIQUE: One view of the chest was acquired. COMPARISON: [facility], CR, XR CHEST 1V, 03/30/2021, 8:18. FINDINGS: Surgical changes and devices: Partially visualized right humeral fixation hardware.. Lungs and pleura: Lungs are clear. No pleural effusions or pneumothorax. Mediastinum: Mediastinal contours appear normal. Heart size is normal. Bones and chest wall: No suspicious bony lesions. Overlying soft tissues appear unremarkable. IMPRESSION: No acute cardiopulmonary disease process. Dictated by: Idalia Guerrero MD, PhD on 04/14/2021 at 17:35 Approved by: Idalia Guerrero MD, PhD on 04/14/2021 at 17:35
[2021-04-14 17:55] LABS: Add Manual Diff / Slide Review NO; Basophils Absolute Auto 100 /uL (0-100); Basophils Percent Auto 1.2 % (0-2); Eosinophils Absolute Auto 100 /uL (0-450); Eosinophils Percent Auto 0.8 % (2-4); Hematocrit 35.7 % (36-46); Hemoglobin 11.8 g/dL (12.0-16.0); Lymphocytes Absolute Auto 1900 /uL (1100-4500); Lymphocytes Percent Auto 18.6 % (25-40); Mean Corpuscular Hemoglobin 33.2 PG (26-34); Mean Corpuscular Volume 100.6 fL (80-100); Monocytes Absolute Auto 400 /uL (0-900); Monocytes Percent Auto 4.2 % (3-14); Neutrophils Absolute Auto 7700 /uL (1500-7000); Neutrophils Percent Auto 75.2 % (50-75); Platelet Count 585 X10^3/uL (150-400); Red Blood Cell Count 3.55 X10^6/uL (4.0-5.2); Red Cell Distribution Width 13.6 % (11.6-14.8); White Blood Cell Count 10.2 X10^3/uL (4.5-11.0)
[2021-04-14 17:59] LABS: Bacteria Urine None Seen
[2021-04-14 18:00] LABS: Appearance Urine UA CLEAR; Bilirubin Urine UA NEGATIVE (NEGATIVE); Color Urine UA YELLOW; Glucose Urine UA NEGATIVE (Negative); Ketones Urine UA NEGATIVE (NEGATIVE); Leukocyte Esterase Urine UA TRACE (NEGATIVE); Nitrite Urine UA NEGATIVE (Negative); Occult Blood Urine UA NEGATIVE (Negative); Protein Urine UA NEGATIVE (Negative); Specific Gravity Urine UA <=1.005 (1.000-1.035); Urobilinogen Urine UA 0.2 E.U./dL (0.2)
[2021-04-14 18:01] LABS: Alanine Aminotransferase 15 IU/L (<35); Albumin 4.6 g/dL (3.5-5.0); Albumin Globulin Ratio 1.3 (1.0-2.8); Alkaline Phosphatase 265 U/L (38-126); Aspartate Aminotransferase 22 IU/L (14-36); BUN Creatinine Ratio 17.9 (6-22); Bilirubin Total 0.4 mg/dL (0.2-1.3); Blood Urea Nitrogen 20 mg/dL (7-17); Calcium 9.4 mg/dL (8.4-10.2); Carbon Dioxide 16 mmol/L (22-32); Chloride 99 mmol/L (98-107); Estimated Glomerular Filt Rate 48.2 mL/min (>60); Globulin 3.6 g/dL (1.7-4.1); Glucose 99 mg/dL (80-110); HEMOLYSIS < 15 (0-50); Potassium 5.2 mmol/L (3.4-5.1); Sodium 126 mmol/L (137-145); Total Protein 8.2 g/dL (6.3-8.2)
--- NOTE | 2021-04-14 18:12 | ED_ITS ---
HPI - Weakness General Chief complaint: Weakness Stated complaint: increased weakness Time Seen by Provider: 04/14/21 17:19 Source: patient Mode of arrival: EMS Limitations: no limitations History of Present Illness HPI Narrative: 70-year-old female former smoker with history of hypertension, chronic kidney disease presents with 1-2 days of increasing weakness. She states that over the course of the past 1-2 days she has become profoundly weak and is now having difficulty even getting around at home. When she stands up she becomes dizzy and lightheaded. She is admittedly become a bit confused. She has had a poor appetite. She denies nausea, vomiting or diarrhea. She takes no diuretics. She denies any new medications. She was most recently hospitalized at the end of January with a kidney infection and a mild pneumonia at [facility]. Related Data Home Medications Medication Instructions Recorded Confirmed metoprolol tartrate 25 mg tablet 25 mg PO BID #0 04/24/17 04/15/21 gabapentin 100 mg capsule 300 mg PO TID 11/07/18 04/15/21 carisoprodol 350 mg tablet 350 mg PO TID PRN 10/29/20 04/15/21 oxycodone 10 mg PO Q4HR PRN MDD 60 mg 10/29/20 04/15/21 Allergies Allergy/AdvReac Type Severity Reaction Status Date / Time furosemide [From Lasix] Allergy Intermediate Rash Verified 04/14/21 15:57 tramadol [TRAMADOL] Allergy Unknown Verified 04/14/21 15:57 amitriptyline [AMITRIPTYLINE] AdvReac Intermediate Confusion Verified 04/14/21 15:57 Review of Systems Review of Systems Narrative: GENERAL: See HPI HEENT: See HPI RESPIRATORY: Denies dyspnea, cough, wheezing, hemoptysis, sputum. CARDIOVASCULAR: Denies chest pain, palpitations, orthopnea, edema, GASTROINTESTINAL: Denies nausea, vomiting, abdominal pain, diarrhea, constipation, melena. : Denies dysuria, frequency, incontinence, hematuria, urinary retention. MUSCULOSKELETAL: denies weakness, joint pain, or bony pain SKIN: Denies rash, skin lesions, or other NEUROLOGIC: Denies weakness, headache, numbness, change in speech, confusion, seizures, incoordination. PSYCHIATRIC: No concerning psychosocial issues. 12 point review of systems is negative except for those stated above Patient History Medical History Anxiety Arthritis C. difficile colitis Chronic pain Colitis Compression fracture of L1 vertebra (~07/2019) COPD (chronic obstructive pulmonary disease) Depression DJD (degenerative joint disease) Fibromyalgia Fracture, tibia GI bleeding History of osteomyelitis History of recurrent UTIs HLD (hyperlipidemia) Hypertension Insomnia Left foot drop Lumbar compression fracture (02/26/19) Migraines Multiple fractures Neuropathy Numbness and tingling Osteoporosis Radius fracture (08/30/17) Renal disease Stage 3 chronic kidney disease Surgical History H/O: hysterectomy History of surgery Hx of appendectomy Hx of cholecystectomy Hx of elbow surgery Hx of kyphoplasty (~2013) Hx of kyphoplasty (04/28/19) Hx of kyphoplasty (07/28/19) Hx of tonsillectomy Status post epidural steroid injection (03/25/19) Family History Mother No known health problems COPD (chronic obstructive pulmonary disease) Father No known health problems Social History household members: significant other Smoking Status: Former smoker alcohol intake: current Smoking Status: Never smoker alcohol intake frequency: holidays/special occasions only Substance Use Type: does not use and former substance user Exam Narrative Exam Narrative: GENERAL: [] 70 year old patient appears older than stated age. Thin, ill-appearing, GCS 14, slightly confused HEAD: Atraumatic. Normocephalic. EYES: Pupils equal round and reactive. Extraocular motions intact. No scleral icterus. No injection or drainage. ENT: Dry mucous member Nose without bleeding, purulent drainage. Throat without erythema, tonsillar hypertrophy or exudate. Airway patent. NECK: Trachea midline. Non tender CARDIOVASCULAR: Regular rate and rhythm without murmurs, gallops, or rubs. RESPIRATORY: Clear to auscultation. Breath sounds equal bilaterally. No wheezes, rales, or rhonchi. GASTROINTESTINAL: Abdomen soft, non-tender, nondistended. EXTREMITIES: No edema or joint tenderness. BACK: Nontender without deformity or crepitance. No flank tenderness. NEURO: AOx3. SKIN: Poor skin turgor No rash or erythema of visible areas Initial Vital Signs Initial Vital Signs: Vital Signs Temperature 97.5 F L 04/14/21 15:50 Pulse Rate 74 04/14/21 15:50 Respiratory Rate 20 04/14/21 15:50 Blood Pressure 211/101 H 04/14/21 15:50 Pulse Oximetry 100 04/14/21 15:50 Course Orders Ordered: ED Orders 04/14/21 17:20 XR chest 1V Stat 04/14/21 17:41 Complete Blood Count AUTO DIFF Stat Comprehensive Metabolic Panel Stat Osmolality, Serum Urgent Troponin & CK Cardiac Panel Stat 04/14/21 17:57 Creatinine Urine Random Stat Osmolality Urine Stat Sodium Urine Random Stat Urinalysis and Microscopic Stat Urine Culture Stat 04/14/21 19:27 COVID19 - ADMIT ([employer] swab/PCR) Stat 04/14/21 21:37 Education, smoking cessation ONGOING 04/14/21 22:20 Folate Routine Magnesium Routine NT-proBNP (BNP-Adult 18+) Routine Sodium Routine Uric Acid Routine Vitamin B12 Routine 04/15/21 05:00 Complete Blood Count AUTO DIFF DAILY 04/16/21 05:00 Complete Blood Count AUTO DIFF DAILY Comprehensive Metabolic Panel DAILY 04/17/21 05:00 Complete Blood Count AUTO DIFF DAILY Comprehensive Metabolic Panel DAILY Acetaminophen (Acetaminophen 325 Mg Tablet) 650 mg PO Q6HR PRN PRN Reason: Fever/Mild Pain (1-3) Carisoprodol (Carisoprodol 350 Mg Tablet) 350 mg PO TID PRN PRN Reason: Muscle Spasm Enoxaparin Sodium (Enoxaparin 30 Mg/0.3 Ml Syringe) 30 mg SUBCUT DAILY [facility] Gabapentin (Gabapentin 100 Mg Capsule) 300 mg PO TID [facility] Sodium Chloride (Normal Saline 0.9%) 1,000 mls @ 50 mls/hr IV CONT LACY Metoprolol Tartrate (Metoprolol Ir 25 Mg Tablet) 25 mg PO BID LACY Naloxone HCl (Naloxone 0.4 Mg/Ml Vial) 0.2 mg IV Q2MIN PRN PRN Reason: Opiate Reversal Ondansetron HCl (Ondansetron 4 Mg Odt) 4 mg PO Q8HR PRN PRN Reason: Nausea And Vomiting Oxycodone HCl (Oxycodone Ir 10 Mg Tablet) 10 mg PO Q6HR PRN PRN Reason: Pain, Severe (7-10) Discontinued Medications Hydromorphone HCl (Hydromorphone 0.5 Mg Inj) 0.5 mg IV NOW ONE Stop: 04/14/21 21:03 Last Admin: 04/14/21 21:10 Dose: 0.5 mg Documented by: SANDRA Hydromorphone HCl (Hydromorphone 0.5 Mg Inj) 0.5 mg IV NOW ONE Stop: 04/15/21 00:07 Last Admin: 04/15/21 00:36 Dose: 0.5 mg Documented by: HAWK Sodium Chloride (Normal Saline 0.9%) 1,000 mls @ 1,000 mls/hr IV BOLUS ONE Stop: 04/14/21 20:34 Last Infusion: 04/14/21 23:33 Dose: 0 mls/hr Documented by: Admin: 04/14/21 20:57 Dose: 1,000 mls/hr Documented by: SANDRA Sodium Chloride (Normal Saline 0.9%) 1,000 mls @ 100 mls/hr IV CONT LACY Metoprolol Tartrate (Metoprolol Tartrate 5 Mg/5 Ml Inj) 5 mg IV NOW ONE Stop: 04/15/21 00:19 Last Admin: 04/15/21 00:35 Dose: 5 mg Documented by: HAWK Vital Signs Vital signs: Vital Signs - 8 hr 04/14/21 17:50 04/14/21 18:00 04/14/21 18:30 Pulse Rate 68 71 72 Respiratory Rate 18 13 13 Blood Pressure 178/91 H 165/80 H 183/85 H Pulse Oximetry 100 99 98 04/14/21 19:00 04/14/21 19:30 04/14/21 19:31 Pulse Rate 74 84 86 Respiratory Rate 14 35 H 32 H Blood Pressure 206/98 H Pulse Oximetry 98 98 99 04/14/21 19:44 04/14/21 20:00 04/14/21 20:01 Pulse Rate 73 71 71 Respiratory Rate 23 14 17 Blood Pressure 198/99 H 186/83 H Pulse Oximetry 99 99 99 04/14/21 20:22 04/14/21 20:30 04/14/21 21:00 Pulse Rate 71 75 78 Respiratory Rate 29 H 15 37 H Blood Pressure 174/79 H 162/71 H Pulse Oximetry 99 97 98 04/14/21 21:01 04/14/21 21:30 04/14/21 21:38 Pulse Rate 82 92 H Respiratory Rate 35 H 31 H Blood Pressure 160/109 H Pulse Oximetry 98 98 100 MDM - Weakness Lab Data Result diagrams: 04/14/21 17:41 04/14/21 22:20 Labs: Lab Results 04/14/21 04/14/21 04/14/21 Range/Units 17:41 17:41 17:41 WBC 10.2 (4.5-11.0) X10^3/uL RBC 3.55 L (4.0-5.2) X10^6/uL Hgb 11.8 L (12.0-16.0) g/dL Hct 35.7 L (36-46) % MCV 100.6 H (80-100) fL MCH 33.2 (26-34) PG MCHC 33.0 (30-36) % RDW 13.6 (11.6-14.8) % Plt Count 585 H (150-400) X10^3/uL Neut % (Auto) 75.2 H (50-75) % Lymph % (Auto) 18.6 L (25-40) % [place] % (Auto) 4.2 (3-14) % Eos % (Auto) 0.8 L (2-4) % Baso % (Auto) 1.2 (0-2) % Neut # (Auto) 7700 H (6719-1817) /uL Lymph # (Auto) 1900 (7847-1292) /uL [place] # (Auto) 400 (0-900) /uL Eos # (Auto) 100 (0-450) /uL Baso # (Auto) 100 (0-100) /uL Sodium 126 L (137-145) mmol/L Potassium 5.2 H (3.4-5.1) mmol/L Chloride 99 (98-107) mmol/L Carbon Dioxide 16 L (22-32) mmol/L BUN 20 H (7-17) mg/dL Creatinine 1.12 H (0.52-1.04) mg/dL Estimated GFR 48.2 L (>60) mL/min BUN/Creatinine Ratio 17.9 (6-22) Glucose 99 (80-110) mg/dL Calcium 9.4 (8.4-10.2) mg/dL TIBC (265-497) ug/dL Total Bilirubin 0.4 (0.2-1.3) mg/dL AST 22 (14-36) IU/L ALT 15 (<35) IU/L Alkaline Phosphatase 265 H (38-126) U/L Total Creatine Kinase 57 (30-135) U/L CK-MB (CK-2) TNP CK-MB (CK-2) Rel Index TNP Troponin I < 0.012 (0.01-0.034) ng/mL Total Protein 8.2 (6.3-8.2) g/dL Albumin 4.6 (3.5-5.0) g/dL Globulin 3.6 (1.7-4.1) g/dL Albumin/Globulin Ratio 1.3 (1.0-2.8) Urine Color Urine Appearance Urine pH (4.5-8.0) Ur Specific [place] (1.000-1.035) Urine Protein (Negative) Urine Glucose (UA) (Negative) g/dL Urine Ketones (NEGATIVE) Urine Occult Blood (Negative) Urine Nitrate (Negative) Urine Bilirubin (NEGATIVE) Urine Urobilinogen (0.2) E.U./dL Ur Leukocyte Esterase (NEGATIVE) Urine RBC (0-5/HPF) Urine WBC (0-5/HPF) Ur Squamous Epith Cells (0-5/HPF) Urine Bacteria (None) Ur Culture Indicated? Ur Random Sodium (30-90) mmol/L Urine Creatinine mg/dL SARS-CoV-2 (PCR) (Negative) 04/14/21 04/14/21 04/14/21 Range/Units 17:41 17:57 17:57 WBC (4.5-11.0) X10^3/uL RBC (4.0-5.2) X10^6/uL Hgb (12.0-16.0) g/dL Hct (36-46) % MCV (80-100) fL MCH (26-34) PG MCHC (30-36) % RDW (11.6-14.8) % Plt Count (150-400) X10^3/uL Neut % (Auto) (50-75) % Lymph % (Auto) (25-40) % [place] % (Auto) (3-14) % Eos % (Auto) (2-4) % Baso % (Auto) (0-2) % Neut # (Auto) (9801-7033) /uL Lymph # (Auto) (9885-9881) /uL [place] # (Auto) (0-900) /uL Eos # (Auto) (0-450) /uL Baso # (Auto) (0-100) /uL Sodium (137-145) mmol/L Potassium (3.4-5.1) mmol/L Chloride (98-107) mmol/L Carbon Dioxide (22-32) mmol/L BUN (7-17) mg/dL Creatinine (0.52-1.04) mg/dL Estimated GFR (>60) mL/min BUN/Creatinine Ratio (6-22) Glucose (80-110) mg/dL Calcium (8.4-10.2) mg/dL TIBC 179 L (265-497) ug/dL Total Bilirubin (0.2-1.3) mg/dL AST (14-36) IU/L ALT (<35) IU/L Alkaline Phosphatase (38-126) U/L Total Creatine Kinase (30-135) U/L CK-MB (CK-2) CK-MB (CK-2) Rel Index Troponin I (0.01-0.034) ng/mL Total Protein (6.3-8.2) g/dL Albumin (3.5-5.0) g/dL Globulin (1.7-4.1) g/dL Albumin/Globulin Ratio (1.0-2.8) Urine Color Yellow Urine Appearance Clear Urine pH 6.0 (4.5-8.0) Ur Specific [place] <=1.005 (1.000-1.035) Urine Protein Negative (Negative) Urine Glucose (UA) Negative (Negative) g/dL Urine Ketones Negative (NEGATIVE) Urine Occult Blood Negative (Negative) Urine Nitrate Negative (Negative) Urine Bilirubin Negative (NEGATIVE) Urine Urobilinogen 0.2 (0.2) E.U./dL Ur Leukocyte Esterase Trace H (NEGATIVE) Urine RBC 0-1/hpf (0-5/HPF) Urine WBC 5-10/hpf H (0-5/HPF) Ur Squamous Epith Cells None seen (0-5/HPF) Urine Bacteria None seen (None) Ur Culture Indicated? Specimen cultured Ur Random Sodium 84 (30-90) mmol/L Urine Creatinine 21.1 mg/dL SARS-CoV-2 (PCR) (Negative) 04/14/21 Range/Units 19:27 WBC (4.5-11.0) X10^3/uL RBC (4.0-5.2) X10^6/uL Hgb (12.0-16.0) g/dL Hct (36-46) % MCV (80-100) fL MCH (26-34) PG MCHC (30-36) % RDW (11.6-14.8) % Plt Count (150-400) X10^3/uL Neut % (Auto) (50-75) % Lymph % (Auto) (25-40) % [place] % (Auto) (3-14) % Eos % (Auto) (2-4) % Baso % (Auto) (0-2) % Neut # (Auto) (6864-3682) /uL Lymph # (Auto) (6493-9899) /uL [place] # (Auto) (0-900) /uL Eos # (Auto) (0-450) /uL Baso # (Auto) (0-100) /uL Sodium (137-145) mmol/L Potassium (3.4-5.1) mmol/L Chloride (98-107) mmol/L Carbon Dioxide (22-32) mmol/L BUN (7-17) mg/dL Creatinine (0.52-1.04) mg/dL Estimated GFR (>60) mL/min BUN/Creatinine Ratio (6-22) Glucose (80-110) mg/dL Calcium (8.4-10.2) mg/dL TIBC (265-497) ug/dL Total Bilirubin (0.2-1.3) mg/dL AST (14-36) IU/L ALT (<35) IU/L Alkaline Phosphatase (38-126) U/L Total Creatine Kinase (30-135) U/L CK-MB (CK-2) CK-MB (CK-2) Rel Index Troponin I (0.01-0.034) ng/mL Total Protein (6.3-8.2) g/dL Albumin (3.5-5.0) g/dL Globulin (1.7-4.1) g/dL Albumin/Globulin Ratio (1.0-2.8) Urine Color Urine Appearance Urine pH (4.5-8.0) Ur Specific [place] (1.000-1.035) Urine Protein (Negative) Urine Glucose (UA) (Negative) g/dL Urine Ketones (NEGATIVE) Urine Occult Blood (Negative) Urine Nitrate (Negative) Urine Bilirubin (NEGATIVE) Urine Urobilinogen (0.2) E.U./dL Ur Leukocyte Esterase (NEGATIVE) Urine RBC (0-5/HPF) Urine WBC (0-5/HPF) Ur Squamous Epith Cells (0-5/HPF) Urine Bacteria (None) Ur Culture Indicated? Ur Random Sodium (30-90) mmol/L Urine Creatinine mg/dL SARS-CoV-2 (PCR) Negative (Negative) Urine Dip Bedside Urine Glucose Negative Bedside Urine Bilirubin - Negative Bedside Urine Ketone - Negative Urine Specific [place] 1.015 Bedside Urine Occult Blood - Negative Bedside Urine pH 6.0 Bedside Urine Protein - Negative Bedside Urine Urobilinogen - Negative Bedside Urine Nitrite - Negative Bedside Urine Leukocytes - Negative Esterase Imaging Data Chest x-ray: My Impression: [address] [id number] ReportSigned Patient: Emani Leiva LMR#: [id number]: 2Acct:[id number]/Sex: 70 / FDate of Service: 04/14/21Loc: EDAccession Number: [id number] Procedure: XR chest 1V Ordering Provider: Sarbjit Tyler P.A-C PROCEDURE: XR CHEST 1V INDICATIONS: weakness TECHNIQUE: One view of the chest was acquired. COMPARISON: [facility], XR CHEST 1V, 03/30/2021, 8:18. FINDINGS: Surgical changes and devices: Partially visualized right humeral fixation hardware.. Lungs and pleura: Lungs are clear. No pleural effusions or pneumothorax. Mediastinum: Mediastinal contours appear normal. Heart size is normal. Bones and chest wall: No suspicious bony lesions. Overlying soft tissues appear unremarkable. IMPRESSION: No acute cardiopulmonary disease process. Dictated by: Idalia Guerrero MD, PhD on 04/14/2021 at 17:35 Approved by: Idalia Guerrero MD, PhD on 04/14/2021 at 17:35 [facility] Narrative Medical decision making narrative: Patient with chronic illnesses a bit confused and significantly weak. She is clinically dehydrated with dry mucous membranes and poor skin turgor. She is slightly confused, stating that her recent hospitalization was only 10 days ago when in fact it was at the end of January. She denies any trauma and has had no fever or chills. There is no evidence of infection and it is presumed that her weakness and confusion is due to hypovolemic hyponatremia. Require hospitalization for ongoing evaluation and treatment Discharge Plan Departure Patient Disposition: Admitted As Inpatient Clinical Impression: Dehydration, Acute hyponatremia Admit Date/Time: 04/14/21 22:07 Admit Provider: Francine Glass
[2021-04-14 18:34] LABS: Culture Indicated Urine Specimen Cultured; RBC Urine 0-1/HPF (0-5/HPF); Squamous Epithelial Cell Urine None Seen (0-5/HPF); WBC Urine 5-10/HPF (0-5/HPF)
[2021-04-14 18:39] LABS: Creatine Kinase 57 U/L (30-135)
[2021-04-14 18:52] LABS: Troponin I < 0.012 ng/mL (0.01-0.034)
[2021-04-14 19:49] LABS: Creatinine Urine Random 21.1 mg/dL; Sodium Urine Random 84 mmol/L (30-90)
[2021-04-14 20:32] LABS: COVID19 - ADMIT (NP swab/PCR) Negative (Negative)
[2021-04-14] MEDS: SODIUM CHLORIDE 0.9% 1,000 ML 1000 ML IV (20:57)
[2021-04-14] MEDS: HYDROMORPHONE 0.5 MG INJ IV (21:10)
--- NOTE | 2021-04-14 21:55 | P.HP_ITS ---
History of Present Illness History of Present Illness Date Patient Seen: 04/14/21 Time Patient Seen: 21:55 Chief complaint: increased weakness Narrative: Emani Leiva is a 70-year-old female with a history of chronic pain, compression fractures, COPD, fibromyalgia, and a history of recurrent urinary tract infections and frequent falls. Patient came to the ED today for increased weakness, and nausea for the past day and a half. Patient reported to Dr. Herrera that she had been home 10 days from [facility] hospitalization for septic arthritis. This recount is incorrect patient appears alert and orientated, but is confused regarding her medical history, thought process is disorganized. Patient's [facility] hospitalization was 3 months ago, but she continues to verbalize that it was only a week ago even after I correct her. As we have no support person at bedside to clarify patient's normal baseline of functioning, I am assuming encephalopathy until proven otherwise. Patient denies chest pain, shortness of breath, vomiting, fever, body aches, respiratory symptoms, urinary symptoms, abdominal pain, diarrhea, recent illness injury or trauma. Patient reports recent acute weight loss, patient's BMI has remained stable in the chart for 2020. Patient has had multiple hospital visits at [place] during this calendar year to include, ED 10/07/2020 for UTI. She also insists that she is under current medical management and recent hospitalization for severe leukocytosis by Dr. Light @[facility], but pt was hospitalized for leukocytosis back on 10/29-11/05/2020 followed by ED visit 11/12/20, and todays WBC are WNL. Just over a week ago was hospitalized for severe sepsis secondary to urinary tract infection with acute metabolic encephalopathy 03/30-04/01 2021. Upon admit patient's BP was elevated and she was tachypneic, though she did not demonstrate work of breathing or resp distress. She said her elevated B/P was due to her chronic back pain exacerbation, BP 226/100, temp 97.5?, HR 73, R 30, O2 saturation 99% on room air. Patient demonstrated chronic macrocytic anemia HGB 11.8, HCT 35.7, MCV 100.6, platelets 585, WBC were WNL but had a left shift neutrophils# [id number]. Patient demonstrates moderate hyponatremia Na 126, after reviewing patient's chart history no documentation of previous hyponatremia unknown etiology at this time. Patient denies vomiting, diarrhea, thiazide diuretics, or hypervolemia. BUN 20, potassium 5.2, HC03 16, creatinine 1.12 which is improved from patient's previous creatinine 1.32, GFR 48.2 which is improved from previous 39, troponin was unremarkable, alk-phos 265 elevated from previous 147. Urinalysis negative for nitrates, trace leuko Estrace, wbc's 5-10, urine sodium 84 WNL, urine creatinine 21.1 WNL,-sent for culture. Creatinine clearance calculated at 36. Sofa score: 2 Patient's chest x-ray demonstrated no acute cardiopulmonary processes. Patient admitted for hyponatremia, with acute encephalopathy, and uncontrolled hypertensive urgency. Patient History Medical History (Updated 04/14/21 @ 22:14 by LORETTA Nuñez) Anxiety Arthritis C. difficile colitis Chronic pain Colitis Compression fracture of L1 vertebra (~07/2019) COPD (chronic obstructive pulmonary disease) Depression DJD (degenerative joint disease) Fibromyalgia Fracture, tibia GI bleeding History of recurrent UTIs HLD (hyperlipidemia) Hypertension Insomnia Left foot drop Lumbar compression fracture (02/26/19) Migraines Multiple fractures Neuropathy Numbness and tingling Osteoporosis Radius fracture (08/30/17) Renal disease Stage 3 chronic kidney disease Surgical History H/O: hysterectomy History of surgery Hx of appendectomy Hx of cholecystectomy Hx of elbow surgery Hx of kyphoplasty (~2013) Hx of kyphoplasty (04/28/19) Hx of kyphoplasty (07/28/19) Hx of tonsillectomy Status post epidural steroid injection (03/25/19) Family & Social History Family History Mother No known health problems COPD (chronic obstructive pulmonary disease) Father No known health problems Social History: household members significant other Safety & Behavioral: Feels Safe in Current Yes Environment Been Physically Hurt or No Threatened By a Person Tobacco & Substance use: Tobacco type cigarettes,e-cigarettes Smoking Status Never smoker alcohol intake current alcohol intake frequency holiday/special occasion Substance Use Type does not use,former substance user Meds Home Medications and Allergies Home Medications Medication Instructions Recorded Confirmed Type metoprolol tartrate 25 mg tablet 25 mg PO BID #0 04/24/17 04/15/21 History gabapentin 100 mg capsule 300 mg PO TID 11/07/18 04/15/21 History carisoprodol 350 mg tablet 350 mg PO TID PRN 10/29/20 04/15/21 History oxycodone 10 mg PO Q4HR PRN MDD 60 mg 10/29/20 04/15/21 History Allergies Allergy/AdvReac Type Severity Reaction Status Date / Time furosemide [From Lasix] Allergy Intermediate Rash Verified 04/14/21 15:57 tramadol [TRAMADOL] Allergy Unknown Verified 04/14/21 15:57 amitriptyline [AMITRIPTYLINE] AdvReac Intermediate Confusion Verified 04/14/21 15:57 Review of Systems Review of Systems Narrative: All 12 point systems reviewed with the patient and are negative except otherwise documented. Please note patient's participation in ROS and HPI may be inaccurate due to encephalopathy. Exam Vital Signs (past 8 hours): - 04/14/21 15:50 04/14/21 15:55 04/14/21 16:00 Temperature 97.5 F L Pulse Rate 74 71 70 Respiratory Rate 20 17 14 Blood Pressure 211/101 H 187/91 H Pulse Oximetry 100 100 100 04/14/21 16:09 04/14/21 16:30 04/14/21 17:00 Temperature Pulse Rate 69 63 71 Respiratory Rate 14 16 9 L Blood Pressure 159/81 H 176/84 H Pulse Oximetry 98 100 99 04/14/21 17:30 04/14/21 17:32 04/14/21 17:50 Temperature Pulse Rate 72 75 68 Respiratory Rate 21 18 18 Blood Pressure 174/80 H 174/80 H 178/91 H Pulse Oximetry 100 100 100 04/14/21 18:00 04/14/21 18:30 04/14/21 19:00 Temperature Pulse Rate 71 72 74 Respiratory Rate 13 13 14 Blood Pressure 165/80 H 183/85 H Pulse Oximetry 99 98 98 04/14/21 19:30 04/14/21 19:31 04/14/21 19:44 Temperature Pulse Rate 84 86 73 Respiratory Rate 35 H 32 H 23 Blood Pressure 206/98 H 198/99 H Pulse Oximetry 98 99 99 Oxygen Delivery Method Room Air Narrative Exam Narrative: General: Patient is a delightful frail thin female, who appears older than stated age. Patient verbalizes a pain of 9/10 although demonstrates no physical or emotuin signs or symptoms of distress or discomfort during exam. HEENT: Normocephalic, atraumatic, extraocular muscles intact, oral pharynx is clear and mucous membranes are dry. Neck is supple and symmetric, trachea is midline, no adenopathy, no thyroid enlargement, nontender, no masses palpated. Negative for JVD Chest: Normal AP diameter and contour without kyphoscoliosis, no nasal flaring, retractions, or tachypneic labored Lungs: Auscultation of all lung christy are clear without adventitious sounds, wheezes, rhonchi, or rales. Cardio: S1 & S2 with regular rate and rhythm without murmur, rubs, or gallops, no carotid bruit, no cardiac pulsations present. Abdomen: Soft nontender, negative for organomegaly, or masses. Bowel sounds are present in all 4 quadrants without guarding or rebound, no CVA tenderness. Musculoskeletal: Muscle strength and tone are equal within normal limits, no deformity, crepitus, effusions, cyanosis, clubbing or edema present. Full range of motion intact radial and pedal pulses are normal. Skin: Warm dry and intact without rashes, ulcerations or petechiae. Neuro: Alert and orientated x 2, strength is +5/5 in all extremities, sensation to touch intact, no gross deficits noted of cranial nerves. Psych: Patient has a well-kept appearance, appropriate affect, mental status attitude thought context and judgment appear slightly inappropriate. Objective Labs Result Diagrams: 04/14/21 17:41 04/14/21 17:41 Labs: Laboratory Results - last 24 hr 04/14/21 04/14/21 04/14/21 17:41 17:41 17:41 WBC 10.2 RBC 3.55 L Hgb 11.8 L Hct 35.7 L MCV 100.6 H MCH 33.2 MCHC 33.0 RDW 13.6 Plt Count 585 H Neut % (Auto) 75.2 H Lymph % (Auto) 18.6 L [place] % (Auto) 4.2 Eos % (Auto) 0.8 L Baso % (Auto) 1.2 Neut # (Auto) 7700 H Lymph # (Auto) 1900 [place] # (Auto) 400 Eos # (Auto) 100 Baso # (Auto) 100 Sodium 126 L Potassium 5.2 H Chloride 99 Carbon Dioxide 16 L BUN 20 H Creatinine 1.12 H Estimated GFR 48.2 L BUN/Creatinine Ratio 17.9 Glucose 99 Calcium 9.4 Total Bilirubin 0.4 AST 22 ALT 15 Alkaline Phosphatase 265 H Total Creatine Kinase 57 CK-MB (CK-2) TNP CK-MB (CK-2) Rel Index TNP Troponin I < 0.012 Total Protein 8.2 Albumin 4.6 Globulin 3.6 Albumin/Globulin Ratio 1.3 Urine Color Urine Appearance Urine pH Ur Specific [place] Urine Protein Urine Glucose (UA) Urine Ketones Urine Occult Blood Urine Nitrate Urine Bilirubin Urine Urobilinogen Ur Leukocyte Esterase Urine RBC Urine WBC Ur Squamous Epith Cells Urine Bacteria Ur Culture Indicated? Ur Random Sodium Urine Creatinine SARS-CoV-2 (PCR) 04/14/21 04/14/21 04/14/21 17:57 17:57 19:27 WBC RBC Hgb Hct MCV MCH MCHC RDW Plt Count Neut % (Auto) Lymph % (Auto) [place] % (Auto) Eos % (Auto) Baso % (Auto) Neut # (Auto) Lymph # (Auto) [place] # (Auto) Eos # (Auto) Baso # (Auto) Sodium Potassium Chloride Carbon Dioxide BUN Creatinine Estimated GFR BUN/Creatinine Ratio Glucose Calcium Total Bilirubin AST ALT Alkaline Phosphatase Total Creatine Kinase CK-MB (CK-2) CK-MB (CK-2) Rel Index Troponin I Total Protein Albumin Globulin Albumin/Globulin Ratio Urine Color Yellow Urine Appearance Clear Urine pH 6.0 Ur Specific [place] <=1.005 Urine Protein Negative Urine Glucose (UA) Negative Urine Ketones Negative Urine Occult Blood Negative Urine Nitrate Negative Urine Bilirubin Negative Urine Urobilinogen 0.2 Ur Leukocyte Esterase Trace H Urine RBC 0-1/hpf Urine WBC 5-10/hpf H Ur Squamous Epith Cells None seen Urine Bacteria None seen Ur Culture Indicated? Specimen cultured Ur Random Sodium 84 Urine Creatinine 21.1 SARS-CoV-2 (PCR) Negative Assessment & Plan Assessment & Plan narrative: Emani Leiva is a 70-year-old female with a history of chronic pain, compression fractures, COPD, fibromyalgia, and a history of recurrent urinary tract infections and frequent falls. Patient came to the ED today for increased weakness, and nausea for the past day and a half. Patient admitted for hyponatremia of unknown etiology, with acute encephalopathy, and uncontrolled hypertensive urgency. 1. Moderate hyponatremia with encephalopathy, acute, present on admission, symptomatic -Na 126, after reviewing patient's chart history no documentation of previous hyponatremia-unknown etiology at this time. urinalysis negative for nitrates, trace leuko Estrace, wbc's 5-10, urine sodium 84 WNL, urine creatinine 21.1 WNL, creatinine clearance calculated at 36. -R/o hypertonic hyponatremia, pseudo hyponatremia due to hyperlipidemia, SIADH, hypothyroidism, secondary adrenal insufficiency, acquired reset Osmostat of chronic illness, thiazide-induced hyponatremia. -monitor for seizures, obtundation, coma, or respiratory arrest. -fluids normal saline at 100 cc/hour- Na Q 4hrs until Na+ >132. -Goal to increase serum sodium initially by no more than 4-6 mEq during the 1st 24 hours to prevent the risk of osmotic demyelination syndrome, sodium at 24 hour Goal to be no <126, but no >132. If greater than 132 start D5W infusion to lower to an appropriate amount. -ordered serum osmolality, urine osmolality, urine sodium, Lipids, uric acid, TSH, Am cortisol, Lipids to determine cause of hyponatremia -Urine culture pending to r/o UTI 2. Hypertension essential, with hypertensive urgency, acute on chronic, present on admission-uncontrolled -BP 206/98, 198/99 on admit, patient reported in ED that her blood pressure is often uncontrolled, due to chronic back pain exacerbation. -226/100-patient is resting comfortably in bed, asymptomatic, does not appear to be in distress. Patient denies chest pain, shortness of breath, diaphoresis. Patient does have a headache, denies changes in vision changes or new numbness or tingling. Patient has not had her evening dose of 25 mg metoprolol. And she calmly reports back pain is 9/10 at this time. Ordered 0.5 IV Dilaudid now and 5 mg metoprolol now. -continue metoprolol -Q15 min b/p checks until SBP<180/DBP<100 3.Macrocytic anemia, acute on chronic, present on admission - HGB 11.8, HCT 35.7, MCV 100.6, platelets 585-patient has demonstrated anemia for at least 1 year unknown etiology -suspect iron deficiency with mild anemia due to malnutrition -ordered B12, iron, ferritin, folate, TIBC for further evaluation 4. Elevated alkaline phosphate, acute on chronic, present on admission -as evidence by alk-phos 265, up from 174 on 03/2021 5. Chronic back pain, Thorasic, secondary to history of compression fracture, acute on chronic, present on admission -continue usual home medications to include S[place], and as needed oxycodone 6. GERD, possible history of peptic ulcer disease, chronic, present on admission -continue pantoprazole 7. Chronic kidney disease stage III, acute on chronic, present on admission - BUN 20, potassium 5.2, HC03 16, creatinine 1.12 which is improved from patient's previous creatinine 1.32, GFR 48.2 which is improved from previous 39 -will continue IV hydration -monitor renal labs -will avoid nephrotoxic agents -creatinine clearance calculated: 36 8. Malnutrition as evidence by BMI 20.2, acute on chronic, present on admission -recommend dietary evaluation for oral nutrition supplements Code status: Full code COVID PCR: Negative COVID vaccination: unknown Surrogate decision maker: Valerio leiva DVT/VTE prophylaxis: Lovenox 30 and SCDs Disposition: Less than 2 midnights for correction of hyponatremia and encephalopathy I have utilized all available immediate resources to obtain, update, or review the patient's current medications. I confirmed that the patient's advanced care plan is present, Code status is documented and/or surrogate decision maker is listed in the patient's medical record. Scores GCS Rosalie coma scale eye opening: Spontaneous Rosalie coma scale verbal response: Confused Rosalie coma scale motor response: Obey commands [place] coma scale total score: 14
[2021-04-14 22:54] LABS: Magnesium 1.7 mg/dL (1.6-2.3); Sodium 129 mmol/L (137-145); Uric Acid 4.4 mg/dL (2.5-6.2)
[2021-04-14 23:04] LABS: NT-proBNP (BNP-Adult 18+) 432 pg/mL (<125)
[2021-04-14 23:41] LABS: Total Iron Binding Capacity 179 ug/dL (265-497)
[2021-04-14 23:46] LABS: Cholesterol 197 mg/dL (140-199); HDL Cholesterol 68 mg/dL (40-60); LDL Cholesterol Calculated 104 mg/dL (<100)
[2021-04-14 23:47] LABS: Triglycerides 125 mg/dL (35-150)
[2021-04-15] VITALS (12 sets, daily range): BP systolic 106–149; BP diastolic 57–77; PULSE 58–81; RESP 14–17; TEMP 36–36.4; O2SAT 97–99
[2021-04-15 00:01] LABS: Folate 4.5 ng/mL (2.76-20.0); Vitamin B12 497 pg/mL (239-931)
[2021-04-15] MEDS: METOPROLOL TARTRATE 5 MG/5 ML INJ IV (00:35)
[2021-04-15] MEDS: HYDROMORPHONE 0.5 MG INJ IV (00:36)
[2021-04-15 00:58] LABS: Troponin I < 0.012 ng/mL (0.01-0.034)
[2021-04-15 01:25] LABS: Iron 104 ug/dL (37-170)
[2021-04-15 01:28] LABS: HEMOLYSIS 59 (0-50)
[2021-04-15 01:39] LABS: Percent Iron Saturation 65 % (15-50); Total Iron Binding Capacity 160 ug/dL (265-497); Transferrin 151 mg/dL (206-381)
[2021-04-15] MEDS: GABAPENTIN 100 MG CAPSULE 300 MG PO ×3 (01:57→14:14)
[2021-04-15 01:58] LABS: Ferritin 829 ng/mL (11-264)
[2021-04-15] MEDS: SODIUM CHLORIDE 0.9% 1,000 ML 50 ML IV ×2 (01:58→18:37)
[2021-04-15] MEDS: OXYCODONE IR 10 MG TABLET PO ×5 (03:29→22:38)
[2021-04-15 05:26] LABS: Add Manual Diff / Slide Review NO; Basophils Absolute Auto 0 /uL (0-100); Basophils Percent Auto 0.5 % (0-2); Eosinophils Absolute Auto 200 /uL (0-450); Eosinophils Percent Auto 2.4 % (2-4); Hematocrit 32.2 % (36-46); Hemoglobin 10.7 g/dL (12.0-16.0); Lymphocytes Absolute Auto 3500 /uL (1100-4500); Lymphocytes Percent Auto 35.9 % (25-40); Mean Corpuscular HGB Conc 33.2 % (30-36); Mean Corpuscular Hemoglobin 33.6 PG (26-34); Monocytes Absolute Auto 600 /uL (0-900); Monocytes Percent Auto 6.1 % (3-14); Neutrophils Absolute Auto 5400 /uL (1500-7000); Neutrophils Percent Auto 55.1 % (50-75); Platelet Count 521 X10^3/uL (150-400); Red Blood Cell Count 3.19 X10^6/uL (4.0-5.2); White Blood Cell Count 9.7 X10^3/uL (4.5-11.0)
[2021-04-15 05:31] LABS: Alanine Aminotransferase 14 IU/L (<35); Albumin 3.8 g/dL (3.5-5.0); Albumin Globulin Ratio 1.2 (1.0-2.8); Alkaline Phosphatase 174 U/L (38-126); Aspartate Aminotransferase 21 IU/L (14-36); BUN Creatinine Ratio 16.7 (6-22); Bilirubin Total 0.3 mg/dL (0.2-1.3); Blood Urea Nitrogen 18 mg/dL (7-17); Calcium 8.9 mg/dL (8.4-10.2); Carbon Dioxide 19 mmol/L (22-32); Chloride 105 mmol/L (98-107); Estimated Glomerular Filt Rate 50.3 mL/min (>60); Globulin 3.1 g/dL (1.7-4.1); Glucose 124 mg/dL (80-110); HEMOLYSIS < 15 (0-50); Potassium 4.3 mmol/L (3.4-5.1); Sodium 129 mmol/L (137-145); Total Protein 6.9 g/dL (6.3-8.2)
[2021-04-15 05:42] LABS: Troponin I < 0.012 ng/mL (0.01-0.034)
[2021-04-15 06:02] LABS: Cortisol AM (Before 10AM) 1.74 ug/dL (4.46-22.7)
[2021-04-15] MEDS: carisoprodoL 350 MG TABLET PO ×4 (06:07→22:38)
--- NOTE | 2021-04-15 07:51 | PM.PN.1 ---
Subjective Subjective Date Patient Seen: 04/15/21 Interval history: She is seen today to follow-up her low sodium level and weakness. She says she that she still feels off and she has a hard time describing what she means by that. Her cortisol level, random this morning, came back low at 1.74 (with a normal range of 4.4 up to 22) so she would appear to have an adrenal crisis or acute adrenal insufficiency as the cause of this hospitalization. Her other labs include a white count 9.7 with a hemoglobin of 10.1 and a sodium level that samreen from 126 up to 129. I have known Keyona for many years (from her time spent at a local [facility]) so I am not all surprised when her only other concern is that she have her oxycodone be given every 4 hours instead of every 6 hours. She is quite opioid dependent and sensitive to any perceived change in her dosing. She has a tendency to push the dosing intervals to the point of falling asleep/over-sedation at a very unsafe level. Exam Vital Signs (past 8 hours): - 04/15/21 01:12 04/15/21 01:26 04/15/21 01:38 Temperature Pulse Rate 58 L 65 Respiratory Rate Blood Pressure 139/77 149/74 H Pulse Oximetry 99 04/15/21 01:53 04/15/21 04:50 04/15/21 05:01 Temperature 96.8 F L Pulse Rate 58 L 67 Respiratory Rate 14 Blood Pressure 146/71 H 136/65 Pulse Oximetry 99 98 Oxygen Delivery Method Room Air Oxygen Flow Rate 0 Narrative Exam Narrative: She is alert and oriented x3. She recognizes me. She is focused on her pain medication She is looking quite comfortable Heart is regular rate and rhythm without murmur Lungs are clear to auscultation bilaterally Abdomen is soft, nontender Extremities have no ankle edema Objective Labs Result Diagrams: 04/15/21 04:50 04/15/21 04:50 Labs: Laboratory Results - last 24 hr 04/14/21 04/14/21 04/14/21 17:41 17:41 17:41 WBC 10.2 RBC 3.55 L Hgb 11.8 L Hct 35.7 L MCV 100.6 H MCH 33.2 MCHC 33.0 RDW 13.6 Plt Count 585 H Neut % (Auto) 75.2 H Lymph % (Auto) 18.6 L [place] % (Auto) 4.2 Eos % (Auto) 0.8 L Baso % (Auto) 1.2 Neut # (Auto) 7700 H Lymph # (Auto) 1900 [place] # (Auto) 400 Eos # (Auto) 100 Baso # (Auto) 100 Sodium 126 L Potassium 5.2 H Chloride 99 Carbon Dioxide 16 L BUN 20 H Creatinine 1.12 H Estimated GFR 48.2 L BUN/Creatinine Ratio 17.9 Glucose 99 Uric Acid Calcium 9.4 Magnesium Iron TIBC % Saturation Transferrin Ferritin Total Bilirubin 0.4 AST 22 ALT 15 Alkaline Phosphatase 265 H Total Creatine Kinase 57 CK-MB (CK-2) TNP CK-MB (CK-2) Rel Index TNP Troponin I < 0.012 NT-Pro-B Natriuret Pep Total Protein 8.2 Albumin 4.6 Globulin 3.6 Albumin/Globulin Ratio 1.3 Triglycerides Cholesterol LDL Cholesterol, Calc HDL Cholesterol Vitamin B12 Folate TSH Cortisol AM Sample Urine Color Urine Appearance Urine pH Ur Specific [place] Urine Protein Urine Glucose (UA) Urine Ketones Urine Occult Blood Urine Nitrate Urine Bilirubin Urine Urobilinogen Ur Leukocyte Esterase Urine RBC Urine WBC Ur Squamous Epith Cells Urine Bacteria Ur Culture Indicated? Ur Random Sodium Urine Creatinine SARS-CoV-2 (PCR) 04/14/21 04/14/21 04/14/21 17:41 17:57 17:57 WBC RBC Hgb Hct MCV MCH MCHC RDW Plt Count Neut % (Auto) Lymph % (Auto) [place] % (Auto) Eos % (Auto) Baso % (Auto) Neut # (Auto) Lymph # (Auto) [place] # (Auto) Eos # (Auto) Baso # (Auto) Sodium Potassium Chloride Carbon Dioxide BUN Creatinine Estimated GFR BUN/Creatinine Ratio Glucose Uric Acid Calcium Magnesium Iron TIBC 179 L % Saturation Transferrin Ferritin Total Bilirubin AST ALT Alkaline Phosphatase Total Creatine Kinase CK-MB (CK-2) CK-MB (CK-2) Rel Index Troponin I NT-Pro-B Natriuret Pep Total Protein Albumin Globulin Albumin/Globulin Ratio Triglycerides Cholesterol LDL Cholesterol, Calc HDL Cholesterol Vitamin B12 Folate TSH Cortisol AM Sample Urine Color Yellow Urine Appearance Clear Urine pH 6.0 Ur Specific [place] <=1.005 Urine Protein Negative Urine Glucose (UA) Negative Urine Ketones Negative Urine Occult Blood Negative Urine Nitrate Negative Urine Bilirubin Negative Urine Urobilinogen 0.2 Ur Leukocyte Esterase Trace H Urine RBC 0-1/hpf Urine WBC 5-10/hpf H Ur Squamous Epith Cells None seen Urine Bacteria None seen Ur Culture Indicated? Specimen cultured Ur Random Sodium 84 Urine Creatinine 21.1 SARS-CoV-2 (PCR) 04/14/21 04/14/21 04/14/21 19:27 22:20 22:20 WBC RBC Hgb Hct MCV MCH MCHC RDW Plt Count Neut % (Auto) Lymph % (Auto) [place] % (Auto) Eos % (Auto) Baso % (Auto) Neut # (Auto) Lymph # (Auto) [place] # (Auto) Eos # (Auto) Baso # (Auto) Sodium 129 L Potassium Chloride Carbon Dioxide BUN Creatinine Estimated GFR BUN/Creatinine Ratio Glucose Uric Acid 4.4 Calcium Magnesium 1.7 Iron TIBC % Saturation Transferrin Ferritin Total Bilirubin AST ALT Alkaline Phosphatase Total Creatine Kinase CK-MB (CK-2) CK-MB (CK-2) Rel Index Troponin I NT-Pro-B Natriuret Pep 432 H Total Protein Albumin Globulin Albumin/Globulin Ratio Triglycerides 125 Cholesterol 197 LDL Cholesterol, Calc 104 H HDL Cholesterol 68 H Vitamin B12 497 Folate 4.5 TSH Cortisol AM Sample Urine Color Urine Appearance Urine pH Ur Specific [place] Urine Protein Urine Glucose (UA) Urine Ketones Urine Occult Blood Urine Nitrate Urine Bilirubin Urine Urobilinogen Ur Leukocyte Esterase Urine RBC Urine WBC Ur Squamous Epith Cells Urine Bacteria Ur Culture Indicated? Ur Random Sodium Urine Creatinine SARS-CoV-2 (PCR) Negative 04/15/21 04/15/21 04/15/21 00:25 00:25 00:25 WBC RBC Hgb Hct MCV MCH MCHC RDW Plt Count Neut % (Auto) Lymph % (Auto) [place] % (Auto) Eos % (Auto) Baso % (Auto) Neut # (Auto) Lymph # (Auto) [place] # (Auto) Eos # (Auto) Baso # (Auto) Sodium Potassium Chloride Carbon Dioxide BUN Creatinine Estimated GFR BUN/Creatinine Ratio Glucose Uric Acid Calcium Magnesium Iron TIBC % Saturation Transferrin Ferritin 829 H Total Bilirubin AST ALT Alkaline Phosphatase Total Creatine Kinase CK-MB (CK-2) CK-MB (CK-2) Rel Index Troponin I < 0.012 NT-Pro-B Natriuret Pep Total Protein Albumin Globulin Albumin/Globulin Ratio Triglycerides Cholesterol LDL Cholesterol, Calc HDL Cholesterol Vitamin B12 Folate TSH 0.60 Cortisol AM Sample Urine Color Urine Appearance Urine pH Ur Specific [place] Urine Protein Urine Glucose (UA) Urine Ketones Urine Occult Blood Urine Nitrate Urine Bilirubin Urine Urobilinogen Ur Leukocyte Esterase Urine RBC Urine WBC Ur Squamous Epith Cells Urine Bacteria Ur Culture Indicated? Ur Random Sodium Urine Creatinine SARS-CoV-2 (PCR) 04/15/21 04/15/21 04/15/21 00:25 04:50 04:50 WBC 9.7 RBC 3.19 L Hgb 10.7 L Hct 32.2 L MCV 101.0 H MCH 33.6 MCHC 33.2 RDW 13.0 Plt Count 521 H Neut % (Auto) 55.1 D Lymph % (Auto) 35.9 [place] % (Auto) 6.1 Eos % (Auto) 2.4 Baso % (Auto) 0.5 Neut # (Auto) 5400 Lymph # (Auto) 3500 [place] # (Auto) 600 Eos # (Auto) 200 Baso # (Auto) 0 Sodium 129 L Potassium 4.3 Chloride 105 Carbon Dioxide 19 L BUN 18 H Creatinine 1.08 H Estimated GFR 50.3 L BUN/Creatinine Ratio 16.7 Glucose 124 H Uric Acid Calcium 8.9 Magnesium Iron 104 D TIBC 160 L % Saturation 65 H D Transferrin 151 L Ferritin Total Bilirubin 0.3 AST 21 ALT 14 Alkaline Phosphatase 174 H Total Creatine Kinase CK-MB (CK-2) CK-MB (CK-2) Rel Index Troponin I < 0.012 NT-Pro-B Natriuret Pep Total Protein 6.9 Albumin 3.8 Globulin 3.1 Albumin/Globulin Ratio 1.2 Triglycerides Cholesterol LDL Cholesterol, Calc HDL Cholesterol Vitamin B12 Folate TSH Cortisol AM Sample 1.74 L Urine Color Urine Appearance Urine pH Ur Specific [place] Urine Protein Urine Glucose (UA) Urine Ketones Urine Occult Blood Urine Nitrate Urine Bilirubin Urine Urobilinogen Ur Leukocyte Esterase Urine RBC Urine WBC Ur Squamous Epith Cells Urine Bacteria Ur Culture Indicated? Ur Random Sodium Urine Creatinine SARS-CoV-2 (PCR) [facility] Medical History Anxiety Arthritis C. difficile colitis Chronic pain Colitis Compression fracture of L1 vertebra (~07/2019) COPD (chronic obstructive pulmonary disease) Depression DJD (degenerative joint disease) Fibromyalgia Fracture, tibia GI bleeding History of osteomyelitis History of recurrent UTIs HLD (hyperlipidemia) Hypertension Insomnia Left foot drop Lumbar compression fracture (02/26/19) Migraines Multiple fractures Neuropathy Numbness and tingling Osteoporosis Radius fracture (08/30/17) Renal disease Stage 3 chronic kidney disease Surgical History H/O: hysterectomy History of surgery Hx of appendectomy Hx of cholecystectomy Hx of elbow surgery Hx of kyphoplasty (~2013) Hx of kyphoplasty (04/28/19) Hx of kyphoplasty (07/28/19) Hx of tonsillectomy Status post epidural steroid injection (03/25/19) Family History Mother No known health problems COPD (chronic obstructive pulmonary disease) Father No known health problems Social History household members: significant other Smoking Status: Former smoker alcohol intake: current Assessment & Plan Assessment & Plan narrative: Emani Leiva is a 70-year-old female with a history of chronic pain, compression fractures, COPD, fibromyalgia, and a history of recurrent urinary tract infections and frequent falls. Patient came to the ED for increased weakness, and nausea for the past day and a half. She was admitted for hyponatremia of unknown etiology, with acute encephalopathy, and uncontrolled hypertensive urgency. 1. Moderate hyponatremia with encephalopathy, acute, present on admission, symptomatic -low random a.m. cortisol level of 1.74 is consistent with acute adrenal insufficiency which will be treated with hydrocortisone IV. -Na 126, after reviewing patient's chart history no documentation of previous hyponatremia urinalysis negative for nitrates, trace leuko Estrace, wbc's 5-10, urine sodium 84 WNL, urine creatinine 21.1 WNL, creatinine clearance calculated at 36. -monitor for seizures, obtundation, coma, or respiratory arrest. -fluids normal saline at 100 cc/hour -Goal to increase serum sodium initially by no more than 4-6 mEq during the 1st 24 hours to prevent the risk of osmotic demyelination syndrome, sodium at 24 hour Goal to be no <126, but no >132. If greater than 132 start D5W infusion to lower to an appropriate amount. -ordered serum osmolality, urine osmolality, urine sodium, Lipids, uric acid, TSH, Lipids to rule out other contributing causes of hyponatremia -Urine culture pending to r/o UTI 2. Hypertension essential, with hypertensive urgency, acute on chronic, present on admission-uncontrolled -BP 206/98, 198/99 on admit, patient reported in ED that her blood pressure is often uncontrolled, due to chronic back pain exacerbation. -226/100-patient is resting comfortably in bed, asymptomatic, does not appear to be in distress. Patient denies chest pain, shortness of breath, diaphoresis. Patient does have a headache, denies changes in vision changes or new numbness or tingling. -continue metoprolol 3.Macrocytic anemia, acute on chronic, present on admission - HGB 11.8, HCT 35.7, MCV 100.6, platelets 585-patient has demonstrated anemia for at least 1 year unknown etiology -suspect iron deficiency with mild anemia due to malnutrition -ordered B12, iron, ferritin, folate, TIBC for further evaluation 4. Elevated alkaline phosphate, acute on chronic, present on admission -as evidence by alk-phos 265, up from 174 on 03/2021 5. Chronic back pain, Thoracic, secondary to history of compression fracture, acute on chronic, present on admission -continue usual home medications to include Soma, and as needed oxycodone(increase from q6 h to q4 h). Hold if sedated. 6. GERD, possible history of peptic ulcer disease, chronic, present on admission -continue pantoprazole 7. Chronic kidney disease stage III, acute on chronic, present on admission - BUN 20, potassium 5.2, HC03 16, creatinine 1.12 which is improved from patient's previous creatinine 1.32, GFR 48.2 which is improved from previous 39 -will continue IV hydration -monitor renal labs -will avoid nephrotoxic agents -creatinine clearance calculated: 36 8. Malnutrition as evidence by BMI 20.2, acute on chronic, present on admission -recommend dietary evaluation for oral nutrition supplements 9. Acute Adrenal Insufficiency -Begin Hydrocortisone 50 mg IV q 12 h and adjust dose depending on her Na level and other physical symptoms (more weak than usual). Code status: Full code COVID PCR: Negative COVID vaccination: unknown Surrogate decision maker: Valerio leiva DVT/VTE prophylaxis: Lovenox 30 and SCDs Disposition: More than 2 midnights for treatment of adrenal insufficiency, correction of hyponatremia and encephalopathy I confirmed that the patient's advanced care plan is present, Code status is documented and/or surrogate decision maker is listed in the patient's medical record.
[2021-04-15] MEDS: ACETAMINOPHEN 325 MG TABLET 650 MG PO ×2 (08:12→17:52)
[2021-04-15] MEDS: METOPROLOL IR 25 MG TABLET PO ×2 (08:13→21:17)
[2021-04-15] MEDS: HYDROCORTISONE 100 MG/2 ML VIAL 50 MG IV ×2 (08:21→21:17)
[2021-04-15] MEDS: ENOXAPARIN 30 MG/0.3 ML SYRINGE SUBCUT (08:21)
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
--- NOTE | 2021-04-15 19:15 | PC.NURSE ---
Pt was given tylenol, soma, oxycodone for reported pain in head and back 04/28. Pt was reassessed and now c/o pain in leg 8.5. Pt changes position independently in bed. Offered warm blanket to place on leg and pt declines. Refuses scd's.
[2021-04-15] MEDS: GABAPENTIN 300 MG CAPSULE PO (21:16)
[2021-04-16] VITALS: O2SAT 98
[2021-04-16 00:10] VITALS: BP 167/86; PULSE 71; RESP 16; TEMP 36.1; O2SAT 98
[2021-04-16] MEDS: ACETAMINOPHEN 325 MG TABLET 650 MG PO ×3 (01:32→14:11)
[2021-04-16] MEDS: OXYCODONE IR 10 MG TABLET PO ×3 (02:23→10:58)
[2021-04-16 04:00] VITALS: BP 144/83; PULSE 69; RESP 16; TEMP 35.9; O2SAT 98
[2021-04-16 05:26] LABS: Add Manual Diff / Slide Review NO; Alanine Aminotransferase 13 IU/L (<35); Albumin 3.9 g/dL (3.5-5.0); Albumin Globulin Ratio 1.3 (1.0-2.8); Alkaline Phosphatase 191 U/L (38-126); Aspartate Aminotransferase 17 IU/L (14-36); BUN Creatinine Ratio 21.2 (6-22); Basophils Absolute Auto 100 /uL (0-100); Basophils Percent Auto 0.8 % (0-2); Bilirubin Total 0.2 mg/dL (0.2-1.3); Blood Urea Nitrogen 22 mg/dL (7-17); Calcium 9.1 mg/dL (8.4-10.2); Carbon Dioxide 20 mmol/L (22-32); Chloride 107 mmol/L (98-107); Eosinophils Absolute Auto 0 /uL (0-450); Eosinophils Percent Auto 0.1 % (2-4); Estimated Glomerular Filt Rate 52.5 mL/min (>60); Glucose 143 mg/dL (80-110); HEMOLYSIS < 15 (0-50); Hematocrit 31.1 % (36-46); Hemoglobin 10.2 g/dL (12.0-16.0); Lymphocytes Absolute Auto 1300 /uL (1100-4500); Lymphocytes Percent Auto 18.7 % (25-40); Mean Corpuscular HGB Conc 32.9 % (30-36); Mean Corpuscular Hemoglobin 33.2 PG (26-34); Mean Corpuscular Volume 100.9 fL (80-100); Monocytes Absolute Auto 400 /uL (0-900); Monocytes Percent Auto 5.8 % (3-14); Neutrophils Absolute Auto 5000 /uL (1500-7000); Neutrophils Percent Auto 74.6 % (50-75); Platelet Count 486 X10^3/uL (150-400); Potassium 4.7 mmol/L (3.4-5.1); Red Blood Cell Count 3.08 X10^6/uL (4.0-5.2); Red Cell Distribution Width 13.2 % (11.6-14.8); Sodium 132 mmol/L (137-145); Total Protein 6.9 g/dL (6.3-8.2); White Blood Cell Count 6.7 X10^3/uL (4.5-11.0)
[2021-04-16 05:57] LABS: Cortisol AM (Before 10AM) 16.8 ug/dL (4.46-22.7)
[2021-04-16] MEDS: carisoprodoL 350 MG TABLET PO ×2 (06:55→14:09)
[2021-04-16 08:02] VITALS: BP 116/76; PULSE 67; RESP 16; TEMP 36.1; O2SAT 98
[2021-04-16] MEDS: ENOXAPARIN 40 MG/0.4 ML SYRINGE SUBCUT (08:08)
[2021-04-16] MEDS: METOPROLOL IR 25 MG TABLET PO (08:08)
[2021-04-16] MEDS: GABAPENTIN 300 MG CAPSULE PO ×2 (08:08→14:09)
[2021-04-16] MEDS: HYDROCORTISONE 10 MG TABLET PO ×2 (08:08→14:10)
[2021-04-16 08:15] VITALS: O2SAT 98
--- NOTE | 2021-04-16 15:01 | PC.NURSE ---
Patient ready for d/c to home with spouse. IV and tele removed. Education given to pt and spouse on medication, opioid use, adrenal insufficiency, follow up appts, and s/s of a stroke. Pt with no questions at this time. Taken down via wheelchair with TOWER LOADER OPERATOR and spouse to car.
--- NOTE | 2021-04-16 17:37 | P.DS_ITS ---
History of Present Illness History of Present Illness Chief complaint: increased weakness Narrative: Emani Leiva is a 70-year-old female with a history of chronic pain, compression fractures, COPD, fibromyalgia, and a history of recurrent urinary tract infections and frequent falls. Patient came to the ED today for increased weakness, and nausea for the past day and a half. Patient reported to Dr. Herrera that she had been home 10 days from [facility] hospitalization for septic arthritis. This recount is incorrect patient appears alert and orientated, but is confused regarding her medical history, thought process is disorganized. Patient's [facility] hospitalization was 3 months ago, but she continues to verbalize that it was only a week ago even after I correct her. As we have no support person at bedside to clarify patient's normal baseline of functioning, I am assuming encephalopathy until proven otherwise. Patient denies chest pain, shortness of breath, vomiting, fever, body aches, respiratory symptoms, urinary symptoms, abdominal pain, diarrhea, recent illness injury or trauma. Patient reports recent acute weight loss, patient's BMI has remained stable in the chart for 2020. Patient has had multiple hospital visits at [place] during this calendar year to include, ED 10/07/2020 for UTI. She also insists that she is under current medical management and recent hospitalization for severe leukocytosis by Dr. Light @[facility], but pt was hospitalized for leukocytosis back on 10/29-11/05/2020 followed by ED visit 11/12/20, and todays WBC are WNL. Just over a week ago was hospitalized for severe sepsis secondary to urinary tract infection with acute metabolic encephalopathy 03/30-04/01 2021. Upon admit patient's BP was elevated and she was tachypneic, though she did not demonstrate work of breathing or resp distress. She said her elevated B/P was due to her chronic back pain exacerbation, BP 226/100, temp 97.5?, HR 73, R 30, O2 saturation 99% on room air. Patient demonstrated chronic macrocytic anemia HGB 11.8, HCT 35.7, MCV 100.6, platelets 585, WBC were WNL but had a left shift neutrophils# [id number]. Patient demonstrates moderate hyponatremia Na 126, after reviewing patient's chart history no documentation of previous hyponatremia unknown etiology at this time. Patient denies vomiting, diarrhea, thiazide diuretics, or hypervolemia. BUN 20, potassium 5.2, HC03 16, creatinine 1.12 which is improved from patient's previous creatinine 1.32, GFR 48.2 which is improved from previous 39, troponin was unremarkable, alk-phos 265 elevated from previous 147. Urinalysis negative for nitrates, trace leuko Estrace, wbc's 5-10, urine sodium 84 WNL, urine creatinine 21.1 WNL,-sent for culture. Creatinine clearance calculated at 36. Sofa score: 2 Patient's chest x-ray demonstrated no acute cardiopulmonary processes. Patient admitted for hyponatremia, with acute encephalopathy, and uncontrolled hypertensive urgency. Discharge Providers Provider Date of admission: 04/15/21 11:41 Discharge Date: 04/16/21 Primary care physician: Luis Hernandez MD Discharge provider: Yuliana Logan MD Summary Hospital Course Discharge Diagnosis: 1. Adrenal insufficiency 2. Hyponatremia 3. Frequent urinary tract infection 4. Chronic kidney disease stage III 5. Chronic pain 6.Anxiety 7. Neuropathy 8. Hypertension Hospital Course: Patient was admitted to the hospital for acute encephalopathy felt to be secondary to hyponatremia, hypertensive urgency, and confusion. The patient had a cortisol level obtain which was markedly depressed at 1.74. She was given IV saline which improved her sodium to 132 up from 126. In addition the patient was started on hydrocortisone. She had improvement in her mentation. The patient was able to get up to the bedside as well. She does have some neuropathy in the left lower leg, and is planning to have varicose vein stripping of that leg as well. The patient was deemed appropriate for discharge and arrangements were made for her to discharge home. She will continue on her hydrocortisone and follow-up with her primary care provider as an outpatient in 1-2 weeks. Exam Vital Signs (past 8 hours): Oxygen Delivery Method Room Air Oxygen Flow Rate 0 Narrative Exam Narrative: Pleasant female in no acute distress Resp Other: Lungs clear to auscultation Cardio Other: Cardiac exam: Regular rate and rhythm normal S1-S2 GI Other: Abdomen: Soft and nontender Objective Labs Result Diagrams: 04/16/21 04:40 04/16/21 04:40 Labs: Laboratory Results - last 24 hr 04/16/21 04/16/21 04:40 04:40 WBC 6.7 RBC 3.08 L Hgb 10.2 L Hct 31.1 L MCV 100.9 H MCH 33.2 MCHC 32.9 RDW 13.2 Plt Count 486 H Neut % (Auto) 74.6 Lymph % (Auto) 18.7 L [place] % (Auto) 5.8 Eos % (Auto) 0.1 L Baso % (Auto) 0.8 Neut # (Auto) 5000 Lymph # (Auto) 1300 [place] # (Auto) 400 Eos # (Auto) 0 Baso # (Auto) 100 Sodium 132 L Potassium 4.7 Chloride 107 Carbon Dioxide 20 L BUN 22 H Creatinine 1.04 Estimated GFR 52.5 L BUN/Creatinine Ratio 21.2 Glucose 143 H Calcium 9.1 Total Bilirubin 0.2 AST 17 ALT 13 Alkaline Phosphatase 191 H Total Protein 6.9 Albumin 3.9 Globulin 3.0 Albumin/Globulin Ratio 1.3 Cortisol AM Sample 16.8 PFSH Medical History Anxiety Arthritis C. difficile colitis Chronic pain Colitis Compression fracture of L1 vertebra (~07/2019) COPD (chronic obstructive pulmonary disease) Depression DJD (degenerative joint disease) Fibromyalgia Fracture, tibia GI bleeding History of osteomyelitis History of recurrent UTIs HLD (hyperlipidemia) Hypertension Insomnia Left foot drop Lumbar compression fracture (02/26/19) Migraines Multiple fractures Neuropathy Numbness and tingling Osteoporosis Radius fracture (08/30/17) Renal disease Stage 3 chronic kidney disease Surgical History H/O: hysterectomy History of surgery Hx of appendectomy Hx of cholecystectomy Hx of elbow surgery Hx of kyphoplasty (~2013) Hx of kyphoplasty (04/28/19) Hx of kyphoplasty (07/28/19) Hx of tonsillectomy Status post epidural steroid injection (03/25/19) Family History Mother No known health problems COPD (chronic obstructive pulmonary disease) Father No known health problems Social History household members: significant other Smoking Status: Former smoker alcohol intake: current Discharge Assessment & Plan Assessment and Plan Assessment: 1. Adrenal insufficiency 2. Hyponatremia 3. Acute metabolic encephalopathy, present on admission, now resolved 4. Hypertension 5. Chronic kidney disease stage 3 Plan of Treatment: Patient will be discharged home on hydrocortisone for her adrenal insufficiency. She will take her usual home medications. She is to follow-up with her primary care provider in 1-2 weeks. Discharge Plan Discharge Plan Patient Disposition: Home Discharge orders & Medications Prescriptions: New hydrocortisone 20 mg tablet 20 mg PO DAILY 30 Days Qty: 30 RF: 0 hydrocortisone 10 mg tablet 10 mg PO .q pm Qty: 30 RF: 0 Continued metoprolol tartrate 25 MG tablet 25 mg PO BID Qty: 0 RF: 0 gabapentin 100 mg capsule 300 mg PO TID RF: 0 carisoprodol 350 mg tablet 350 mg PO TID PRN (Reason: Muscle Spasm) RF: 0 oxycodone 10 mg 10 mg PO Q4HR MDD 60 mg PRN (Reason: Pain, Moderate) RF: 0 Follow up/Referrals: Luis Hernandez MD [Primary Care Provider] - Discharge Health Status Multidrug resistant organism: No MDRO Diet/Activity/Treatments Diet: Low-sodium Activity: as tolerated Visit Report/Discharge Packet Instructions: Adrenal Crisis, DI for Prescription Opioid Use Discharge Data Primary Care Provider: Luis Hernandez
[2021-04-17 16:15] LABS: Osmolality Urine 319 mOsmol/kg (.)
[2021-04-17 16:15] LABS: Osmolality, Serum 281 mOsmol/kg (280-301)
== END 2021-04-16 14:30 | disposition home or self-care (01) | DRG 643 ==
LOC: ED 19:18 → AC 22:43
PROVIDERS: Physician Assistant; Admitting Provider Nurse Practitioner Family; Emergency Provider Emergency Medicine; PCP Family Medicine; Referring Provider Emergency Medicine; Visit Provider Nurse Practitioner Family
DX: E27.40 Unspecified adrenocortical insufficiency (principal); G93.41 Metabolic encephalopathy; E87.1 Hypo-osmolality and hyponatremia; F11.20 Opioid dependence, uncomplicated; I16.0 Hypertensive urgency; G62.9 Polyneuropathy, unspecified; I12.9 Hypertensive chronic kidney disease with stage 1 through stage 4 chronic kidney disease, or unspecified chronic kidney disease; N18.30 Chronic kidney disease, stage 3 unspecified; G89.29 Other chronic pain; K21.9 Gastro-esophageal reflux disease without esophagitis; Z20.822 Contact with and (suspected) exposure to COVID-19; Z87.891 Personal history of nicotine dependence
CPT/HCPCS: 36415; 71045; 80053; 80061; 81001; 81003; 82533; 82550; 82570; 82607; 82728; 82746; 83540; 83550; 83735; 83880; 83930; 83935; 84295; 84300; 84443; 84484; 84550; 85025; 87086; 87635; 96361; 96374; 99284; C9803; G0378; J1170; J1650; J1720

== ENCOUNTER 2022-02-09 17:46 | Emergency (ER) | payer MEDICARE, MEDICAID, SELFPAY ==
[2021-04-14 23:27] VITALS: BMI 20.2
[2022-02-09] VITALS (14 sets, daily range): BP systolic 143–211; BP diastolic 82–120; PULSE 67–87; RESP 11–38; TEMP 36.6; O2SAT 98–100
--- NOTE | 2022-02-09 18:11 | DI.RAD.S_ITS ---
PROCEDURE: XR HIP W PEL IF DONE RT 2V INDICATIONS: fall with pain TECHNIQUE: AP pelvis with lateral view(s) of the right hip(s). COMPARISON: None. FINDINGS: Bones: Probable acute avulsion fracture off the right ischial tuberosity. No other acute fractures. There are several lower lumbar compression fractures with vertebroplasty cement. Pelvic ring appears intact. No suspicious bony lesions. Soft tissues: The visualized bowel gas pattern is normal. No suspicious soft tissue calcifications. IMPRESSION: 1. Probable right ischial tuberosity avulsion at the hamstrings tendon origin. Correlate clinically. Dictated by: Tawny Weaver M.D. on 02/09/2022 at 20:26 Approved by: Tawny Weaver M.D. on 02/09/2022 at 20:28
--- NOTE | 2022-02-09 18:11 | DI.RAD.S_ITS ---
PROCEDURE: XR ANKLE LT MIN 3V INDICATIONS: fall with left ankle pain TECHNIQUE: Three views of the ankle were acquired. COMPARISON: [facility], CR, XR ANKLE LT MIN 3V, 05/20/2020, 15:17. FINDINGS: Bones: Intact hardware fixing a previous ankle fracture. No acute fractures. Ankle mortise appears intact. No new bone lesions. Soft tissues: No tibiotalar joint effusion. Achilles tendon appears normal. IMPRESSION: 1. No acute fractures. 2. Intact fixation hardware. Dictated by: Tawny Weaver M.D. on 02/09/2022 at 20:28 Approved by: Tawny Weaver M.D. on 02/09/2022 at 20:29
--- NOTE | 2022-02-09 18:11 | DI.CT.S_ITS ---
PROCEDURE: CT LUMBAR SPINE WO CON INDICATIONS: fall with midline pain TECHNIQUE: Noncontrast 3 mm thick sections acquired from the T12 level to the sacrum. Sagittal and coronal reformats were constructed. For radiation dose reduction, the following was used: automated exposure control. COMPARISON: [facility], CR, XR LUMBAR SPINE 2 OR 3 VIEWS, 12/22/2020, 15:10. [facility], CT, CT LUMBAR SPINE WO CON, 05/23/2019, 16:41. FINDINGS: Image quality: Excellent. Bones: There is normal bony alignment. There are chronic compression fractures from L1 through L4 with vertebroplasty cement. There has been no significant height loss in these vertebral bodies since the most recent prior x-ray. There is a severe compression fracture of T12 which also appears stable. No acute fracture. The degree of retropulsed fragments of L2 and L3 is stable. Posterior endplate spurring at L4-5 is chronic. No visible pelvic fractures. No suspicious lytic or blastic bony lesions. No pars defects. T12-L1: No central canal or foraminal stenosis. L1-L2: No central canal stenosis. Mild disc bulge causing mild bilateral foraminal stenosis. L2-L3: No central canal stenosis. Mild bilateral foraminal stenosis from disc bulge. L3-L4: Mild central canal stenosis. Mild left foraminal stenosis. L4-L5: Moderate central canal stenosis due to facet hypertrophy and disc osteophyte. Moderate bilateral foraminal narrowing, right worse than left. L5-S1: No central canal or foraminal stenosis. Soft tissues: There is collecting system calcification in the mid and lower pole of the left kidney. Moderate abdominal aortic atherosclerotic calcification. The urinary bladder is quite distended. Visible bowel loops are unremarkable. Post cholecystectomy. No retroperitoneal masses or hematomas. IMPRESSION: 1. No acute vertebral body fracture. 2. Several stable chronic lower thoracic and lumbar compression fractures, most with vertebroplasty cement. 3. Multilevel disc degeneration with mild to moderate bilateral foraminal stenosis. 4. Chronic left intrarenal staghorn calculi. 5. Urinary bladder distension. Dictated by: Tawny Weaver M.D. on 02/09/2022 at 19:05 Approved by: Tawny Weaver M.D. on 02/09/2022 at 19:13
--- NOTE | 2022-02-09 18:11 | DI.CT.S_ITS ---
PROCEDURE: CT THORACIC SPINE WO CON INDICATIONS: fall with midline pain TECHNIQUE: Noncontrast 3 mm thick sections acquired through the region of interest in the thoracic spine. Sagittal and coronal reformats were then constructed. For radiation dose reduction, the following was used: automated exposure control. COMPARISON: [facility], CT, CT THORACIC SPINE WO CON, 05/23/2019, 16:41. FINDINGS: Image quality: Excellent. Bones: Generalized decreased osseous mineralization present. Wedge-shaped compression fracture at T12 is new from the prior exam. Compression fractures at T6 and T10 are similar to the prior. No evidence of significant retropulsed fracture fragment Prior vertebroplasty treatment at L1 and L2, partially imaged Soft tissues: No paravertebral masses or hematomas. Visualized posteromedial lungs appear clear. IMPRESSION: T12 compression fracture, increased from the prior. No retropulsed fracture fragment. stable T6 and T10 compression fractures. Approved by: Ceasar Myers M.D. on 02/09/2022 at 18:17
--- NOTE | 2022-02-09 18:11 | PC.NURSE ---
off back board with jean paul oseguera at [facility]
--- NOTE | 2022-02-09 18:12 | DI.CT.S_ITS ---
PROCEDURE: CT CERVICAL SPINE WO CON INDICATIONS: fall with neck pain TECHNIQUE: Noncontrast 3 mm thick sections acquired from the skull base to the T4 level. Sagittal and coronal reformats were then constructed. For radiation dose reduction, the following was used: automated exposure control, adjustment of mA and/or kV according to patient size. COMPARISON: [facility], CT, CT CERVICAL SPINE WO CON, 03/30/2021, 8:28. FINDINGS: Image quality: Excellent. Bones: No fractures or dislocations. Visualized superior ribs are intact. Straightening of the normal cervical lordosis may be related to muscle spasm or positioning. Multilevel disc space narrowing with facet hypertrophy noted throughout the exam. Craniovertebral relationships are normal. Grade 1 anterior spondylolisthesis noted at C2-3 Soft tissues: Prevertebral soft tissues are normal in thickness. No paravertebral hematomas. No apical pneumothoraces. Calcified granuloma noted in both lung apices. Atherosclerotic vascular calcification noted in the aortic arch. IMPRESSION: Straightening of the normal cervical lordosis may be related to muscle spasm or positioning. No evidence of fracture or traumatic malalignment Grade 1 degenerative C2-3 anterior spondylolisthesis Approved by: Ceasar Myers M.D. on 02/09/2022 at 18:11
--- NOTE | 2022-02-09 18:13 | DI.CT.S_ITS ---
PROCEDURE: CT HEAD/BRAIN WO CON INDICATIONS: fall with head injury, distracting injuries TECHNIQUE: Noncontrast 5 mm thick angled axial sections acquired from the foramen magnum to the vertex, with coronal and sagittal reformats. For radiation dose reduction, the following was used: automated exposure control, adjustment of mA and/or kV according to patient size. COMPARISON: [facility], CT, CT HEAD/BRAIN WO CON, 03/30/2021, 8:28. FINDINGS: Image quality: Excellent. CSF spaces: Basal cisterns are patent. No extra-axial fluid collections. Ventricles are normal in size and shape. Brain: No midline shift. No intracranial masses or hemorrhage. Bran-white matter interface is normal. Moderate cerebral and cerebellar volume loss with multifocal white matter chronic ischemic change noted. Skull and face: Calvarium and visualized facial bones are intact, without suspicious lesions. Sinuses: Visualized sinuses and mastoids are clear. IMPRESSION: Atrophy and chronic ischemic change without acute hemorrhage or mass effect Approved by: Ceasar Myers M.D. on 02/09/2022 at 18:06
--- NOTE | 2022-02-09 18:26 | ED.FALL ---
HPI - Fall General Chief Complaint: Fall Stated Complaint: Left leg injury/Low back pain Time Seen by Provider: 02/09/22 18:00 Source: patient Mode of arrival: Ambulatory History of Present Illness HPI Narrative: 71-year-old female former smoker with history of chronic kidney disease, hypertension, chronic pain presents with a chief complaint of a ground level fall resulting in pain throughout her entire back including right hip and left ankle. She states she does not know she hit her head but does not think so. She takes no blood thinners and denies loss of consciousness. She has had no nausea or vomiting. She denies any numbness, tingling or weakness. She has no chest pain or shortness of breath. She denies any prodromal symptoms contributing to the fall such as dizziness, weakness or lightheadedness. She complains of increased pain with any motion. She arrives in spinal immobilization but has persistently refused a C-collar Related Data Home Medications Medication Instructions Recorded Confirmed metoprolol tartrate 25 mg tablet 25 mg PO BID ##0 04/24/17 04/15/21 carisoprodol 350 mg tablet 350 mg PO TID PRN Muscle Spasm 10/29/20 04/15/21 oxycodone 10 mg PO Q4HR PRN Pain, Moderate 10/29/20 04/15/21 Previous Rx's Medication Instructions Recorded hydrocortisone 10 mg tablet 10 mg PO .q pm #30 tabs 04/16/21 carisoprodol 350 mg tablet 350 mg PO TID PRN muscle pain #20 02/09/22 tabs oxycodone 10 mg tablet 10 mg PO Q6H PRN pain #30 tabs 02/09/22 Allergies Allergy/AdvReac Type Severity Reaction Status Date / Time furosemide [From Lasix] Allergy Intermediate Rash Verified 04/14/21 15:57 tramadol [TRAMADOL] Allergy Unknown Verified 04/14/21 15:57 amitriptyline [AMITRIPTYLINE] AdvReac Intermediate Confusion Verified 04/14/21 15:57 Review of Systems Review of Systems Narrative: GENERAL: Denies chills, fatigue, malaise, fever, sweats. HEENT: Denies sinus pain, ear pain, sore throat, difficulty swallowing, dizziness. RESPIRATORY: Denies dyspnea, cough, wheezing, hemoptysis, sputum. CARDIOVASCULAR: Denies chest pain, palpitations, orthopnea, edema, GASTROINTESTINAL: Denies nausea, vomiting, abdominal pain, diarrhea, constipation, melena. : Denies dysuria, frequency, incontinence, hematuria, urinary retention. MUSCULOSKELETAL: See HPI SKIN: Denies rash, skin lesions, or other NEUROLOGIC: Denies weakness, headache, numbness, change in speech, confusion, seizures, incoordination. PSYCHIATRIC: No concerning psychosocial issues. 12 point review of systems is negative except for those stated above Patient History Medical History Anxiety Arthritis C. difficile colitis Chronic pain Colitis Compression fracture of L1 vertebra (~07/2019) COPD (chronic obstructive pulmonary disease) Depression DJD (degenerative joint disease) Fibromyalgia Fracture, tibia GI bleeding History of osteomyelitis History of recurrent UTIs HLD (hyperlipidemia) Hypertension Insomnia Left foot drop Lumbar compression fracture (02/26/19) Migraines Multiple fractures Neuropathy Numbness and tingling Osteoporosis Radius fracture (08/30/17) Renal disease Stage 3 chronic kidney disease Surgical History H/O: hysterectomy History of surgery Hx of appendectomy Hx of cholecystectomy Hx of elbow surgery Hx of kyphoplasty (~2013) Hx of kyphoplasty (04/28/19) Hx of kyphoplasty (07/28/19) Hx of tonsillectomy Status post epidural steroid injection (03/25/19) Family History Mother No known health problems COPD (chronic obstructive pulmonary disease) Father No known health problems Social History household members: significant other Smoking Status: Former smoker alcohol intake: current Smoking Status: Former smoker alcohol intake frequency: holidays/special occasions only Substance Use Type: does not use and former substance user Exam Narrative Exam Narrative: GENERAL: [71] year old patient appears stated age. Well-developed patient, in mild distress. GCS 15 HEAD: Atraumatic. Normocephalic. EYES: Pupils equal round and reactive. Extraocular motions intact. No scleral icterus. No injection or drainage. ENT: Nose without bleeding, purulent drainage. Throat without erythema, tonsillar hypertrophy or exudate. Airway patent. NECK: Trachea midline. No midline pain, stepoffs, no numbness/tingling or weakness CARDIOVASCULAR: Regular rate and rhythm without murmurs, gallops, or rubs. RESPIRATORY: Clear to auscultation. Breath sounds equal bilaterally. No wheezes, rales, or rhonchi. GASTROINTESTINAL: Abdomen soft, non-tender, nondistended. EXTREMITIES: No shoulder, elbow, wrist pain. Left ankle pain in region of prior surgery. Also, pain in Right lower back, but not clearly on ischial tuberosity, furthermore, no significant pain with passive or active flexion of R knee. BACK: midline, lisa tenderness from mid thoracics and down. No stepoffs, numbness, tingling. No crepitance NEURO: AOx3. SKIN: No rash or erythema of visible areas Initial Vital Signs Initial Vital Signs: Vital Signs Temperature 98 F 02/09/22 17:46 Pulse Rate 78 02/09/22 17:46 Respiratory Rate 18 02/09/22 17:46 Blood Pressure 211/112 H 02/09/22 17:46 Pulse Oximetry 100 02/09/22 17:46 Oxygen Delivery Method 02/09/22 17:46 Course Orders Ordered: ED Orders 02/09/22 18:11 CT lumbar spine wo con Stat CT thoracic spine wo con Stat XR ankle LT min 3V Stat XR hip w pel if done RT 2V Stat 02/09/22 18:12 CT cervical spine wo con Stat 02/09/22 18:13 CT head/brain wo con Stat 02/09/22 21:11 CT pelvis wo con Stat Discontinued Medications Hydromorphone HCl (Hydromorphone 0.5 Mg Inj) 0.5 mg IV NOW ONE Stop: 02/09/22 18:27 Last Admin: 02/09/22 18:37 Dose: 0.5 mg Documented By: SAIGE Morphine Sulfate (Morphine 4 Mg/Ml Inj) 4 mg IV NOW ONE Stop: 02/09/22 21:12 Last Admin: 02/09/22 21:16 Dose: 4 mg Documented By: AALIYAH Morphine Sulfate (Morphine 4 Mg/Ml Inj) 4 mg IV NOW ONE Stop: 02/09/22 23:00 Last Admin: 02/09/22 23:07 Dose: 4 mg Documented By: AALIYAH Oxycodone/Acetaminophen (Oxycodone/Apap 5/325 Prepack) 1 bottle MISC SEEINSTR ONE Stop: 02/09/22 22:46 Last Admin: 02/09/22 23:30 Dose: 1 bottle Documented By: KH Consultations Consultation #1: discussed with education and training coordinator ortho. History and physical reviewed. Dr. Carpio has reviewed imaging. Possible avlusion fracture of R ischial tuberosity is non surgical, and allows weight bearing as tolerated. Vital Signs Vital signs: Vital Signs - 8 hr 02/09/22 19:30 02/09/22 20:00 02/09/22 20:30 Pulse Rate 77 79 82 Respiratory Rate 12 11 L 12 Blood Pressure Pulse Oximetry 100 99 98 02/09/22 21:00 02/09/22 21:30 02/09/22 22:00 Pulse Rate 85 75 84 Respiratory Rate 18 22 16 Blood Pressure Pulse Oximetry 98 02/09/22 22:30 02/09/22 22:56 02/09/22 22:56 Pulse Rate 85 87 Respiratory Rate 38 H 25 H Blood Pressure 143/82 H Pulse Oximetry 100 MDM - Fall Imaging Data CT scan - head: Radiologist's Impression: [place] [address] CT Scan Report Signed Patient: Emani Leiva MR#: [id number] : 1950 Acct:[id number] Age/Sex: 71 / F Date of Service: 02/09/22 Loc: ED Accession Number: [id number] ?? Procedure: CT head/brain wo con Ordering Provider: Jorge Mccall D.O. PROCEDURE:? CT HEAD/BRAIN WO CON ? INDICATIONS:? fall with head injury, distracting injuries ? TECHNIQUE:? Noncontrast 5 mm thick angled axial sections acquired from the foramen magnum to the vertex, with coronal and sagittal reformats.? For radiation dose reduction, the following was used:? automated exposure control, adjustment of mA and/or kV according to patient size.? ? COMPARISON:? [facility], CT, CT HEAD/BRAIN WO CON, 03/30/2021, 8:28. ? FINDINGS:? Image quality:? Excellent.? ? CSF spaces:? Basal cisterns are patent.? No extra-axial fluid collections.? Ventricles are normal in size and shape.? ? Brain:? No midline shift.? No intracranial masses or hemorrhage.? Bran-white matter interface is normal.? Moderate cerebral and cerebellar volume loss with multifocal white matter chronic ischemic change noted. ? Skull and face:? Calvarium and visualized facial bones are intact, without suspicious lesions.? ? Sinuses:? Visualized sinuses and mastoids are clear.? ? IMPRESSION:? Atrophy and chronic ischemic change without acute hemorrhage or mass effect ? ? ? Approved by: Ceasar Myers M.D. on 02/09/2022 at 18:06? CT - cervical spine: Radiologist's Impression: Close Head CT (Signed) Ceasar Myers - 02/09/[address] (Signed) Ceasar Myers - 02/09/[address] 02/09/[address] 02/09/22 Hip X-Ray 02/09/22 Ankle X-Ray 02/09/22 Telemetry Strips 04/15/21 Chest X-Ray (Signed) Idalia Guerrero - 04/14/21 Humerus X-Ray (Signed) Idalia Guerrero - 04/05/21 Telemetry Strips 03/30/[address] (Signed) Nikia Nolasco - 03/30/21 Chest X-Ray (Signed) Ludwig Scaleswn - 03/30/[address] (Signed) Nikia Nolasco - 03/30/21 Lumbar Spine MRI (Signed) Nikia Nolasco - 11/12/20 Abdomen/Pelvis CT (Signed) Nikia Nolasco - 11/12/20 Lumbar Spine MRI (Signed) Jason Castle - 11/04/20 Thoracic Spine MRI (Signed) Jason Castle - 11/04/20 CT Scanning Biopsy/Drainage (Signed) Ori Richter - 11/01/20 Chest X-Ray (Signed) David Landers - 10/30/[address] (Signed) David Landers - 10/30/20 Abdomen/Pelvis CT (Signed) David Landers - 10/30/20 Telemetry Strips 10/29/20 Chest X-Ray (Signed) David Landers - 10/29/20 Abdomen Ultrasound (Signed) David Landers - 10/29/20 Lumbar Spine MRI (Signed) David Landers - 10/07/[address] (Signed) Darwin Long - 02/19/21 Lumbar Spine MRI (Signed) Idalia Guerrero - 09/15/20 Telemetry Strips 05/20/20 Ankle X-Ray (Signed) Nikia Nolasco - 05/20/20 Thoracic Spine MRI (Signed) YolandaIdalia - 04/22/20 Lumbar Spine MRI (Signed) Idalia Guerrero - 04/22/20 Foot X-Ray (Signed) Jon Braxton - 11/10/19 Ankle X-Ray (Signed) Jon Braxton - 11/10/[address] (Signed) Ricardo Lanza - 10/05/19 Lumbar Spine X-Ray (Signed) Anthony Jordan - 07/28/19 Shoulder MRI (Signed) Anthony Jordan - 07/13/[address] (Signed) Kenneth Muñiz - 05/23/[address] (Signed) Kenneth Muñiz - 05/23/19 Lumbar Spine X-Ray (Signed) Kenneth Muñiz - 05/23/19 Humerus X-Ray (Signed) Kenneth Muñiz - 05/23/19 Lumbar Spine X-Ray (Signed) Nikia Nolasco - 04/28/19 Lumbar Spine MRI (Signed) Jl Downs - 03/06/19 Abdomen/Pelvis CT (Signed) Tawny Weaver - 11/07/[address] (Signed) Tawny Weaver - 11/07/18 Chest X-Ray (Signed) Nikia Nolasco - 11/07/18 Chest X-Ray (Signed) Tawny Weaver - 09/19/18 Telemetry Strips 09/18/[address] (Signed) Suellen Herrmann - 09/18/18 Chest X-Ray (Signed) Darwin Long - 09/18/18 Chest X-Ray (Signed) Lbviat,Suellen - 09/18/18 Abdomen/Pelvis CT (Signed) Abdulaziz Chapman - 08/17/18 Bone Scan Nuclear Medicine (Signed) Ori Richter - 07/30/18 Telemetry Strips 07/29/[address] (Signed) Ricardo Lanza - 07/29/18 Elbow X-Ray (Signed) Ricardo Lanza - 07/29/18 Chest X-Ray (Signed) Ricardo Lanza - 12/11/18 Chest X-Ray (Signed) Idalia Guerrero - 07/14/[address] (Signed) Idalia Guerrero - 07/14/18 Elbow X-Ray (Signed) Jl Downs - 07/11/18 Telemetry Strips 06/11/18 Launch?[facility] [address] [address] [address] Scan Report Signed Patient: Emani Leiva MR#: [id number] : 1950 Acct:[id number] Age/Sex: 71 / F Date of Service: 02/09/22 Loc: ED Accession Number: [id number] ?? Procedure: CT cervical spine wo con Ordering Provider: Jorge Mccall D.O. PROCEDURE:? CT CERVICAL SPINE WO CON ? INDICATIONS:? fall with neck pain ? TECHNIQUE:? Noncontrast 3 mm thick sections acquired from the skull base to the T4 level.? Sagittal and coronal reformats were then constructed.? For radiation dose reduction, the following was used:? automated exposure control, adjustment of mA and/or kV according to patient size.? ? COMPARISON:? [facility], CT, CT CERVICAL SPINE WO CON, 03/30/2021, 8:28. ? FINDINGS:? Image quality:? Excellent.? ? Bones:? No fractures or dislocations.? Visualized superior ribs are intact.? Straightening of the normal cervical lordosis may be related to muscle spasm or positioning.? Multilevel disc space narrowing with facet hypertrophy noted throughout the exam.? Craniovertebral relationships are normal.? Grade 1 anterior spondylolisthesis noted at C2-3 ? Soft tissues:? Prevertebral soft tissues are normal in thickness.? No paravertebral hematomas.? No apical pneumothoraces.? Calcified granuloma noted in both lung apices. Atherosclerotic vascular calcification noted in the aortic arch. ? IMPRESSION:? ? Straightening of the normal cervical lordosis may be related to muscle spasm or positioning.? ? No evidence of fracture or traumatic malalignment ? Grade 1 degenerative C2-3 anterior spondylolisthesis ? Approved by: Ceasar Myers M.D. on 02/09/2022 at 18:11? CT T Spine: Radiologist's Impression: Close Head CT (Signed) Ceasar Myers - 02/09/[address] (Signed) Myers,Ceasar - 02/09/[address] (Signed) Myers,Ceasar - 02/09/[address] (Signed) OwenTawny - 02/09/22 Hip X-Ray 02/09/22 Ankle X-Ray 02/09/22 Telemetry Strips 04/15/21 Chest X-Ray (Signed) Yolanda,Idalia - 04/14/21 Humerus X-Ray (Signed) Idalia Guerrero - 04/05/21 Telemetry Strips 03/30/[address] (Signed) Nikia Nolasco - 03/30/21 Chest X-Ray (Signed) Ludwig Scaleswn - 03/30/[address] (Signed) Nikia Nolasco - 03/30/21 Lumbar Spine MRI (Signed) Nikia Nolasco - 11/12/20 Abdomen/Pelvis CT (Signed) Nikia Nolasco - 11/12/20 Lumbar Spine MRI (Signed) Jason Castle - 11/04/20 Thoracic Spine MRI (Signed) Jason Castle - 11/04/20 CT Scanning Biopsy/Drainage (Signed) Ori Richter - 11/01/20 Chest X-Ray (Signed) David Landers - 10/30/[address] (Signed) David Landers - 10/30/20 Abdomen/Pelvis CT (Signed) David Landers - 10/30/20 Telemetry Strips 10/29/20 Chest X-Ray (Signed) David Landers - 10/29/20 Abdomen Ultrasound (Signed) David Landers - 10/29/20 Lumbar Spine MRI (Signed) David Landers - 10/07/[address] (Signed) Darwin Long - 10/07/20 Lumbar Spine MRI (Signed) Idalia Guerrero - 09/15/20 Telemetry Strips 05/20/20 Ankle X-Ray (Signed) Nikia Nolasco - 05/20/20 Thoracic Spine MRI (Signed) Idalia Guerrero - 04/22/20 Lumbar Spine MRI (Signed) Idalia Guerrero - 04/22/20 Foot X-Ray (Signed) Jon Braxton - 11/10/19 Ankle X-Ray (Signed) Jon Braxton - 03/24/[address] (Signed) Ricardo Lanza - 10/05/19 Lumbar Spine X-Ray (Signed) Anthony Jordan - 07/28/19 Shoulder MRI (Signed) Anthony Jordan - 07/13/[address] (Signed) Kenneth Muñiz - 05/23/[address] (Signed) Kenneth Muñiz - 05/23/19 Lumbar Spine X-Ray (Signed) Kenneth Muñiz - 05/23/19 Humerus X-Ray (Signed) Kenneth Muñiz - 05/23/19 Lumbar Spine X-Ray (Signed) Nikia Nolasco - 04/28/19 Lumbar Spine MRI (Signed) Jl Downs - 03/06/19 Abdomen/Pelvis CT (Signed) Tawny Weaver - 11/07/[address] (Signed) Tawny Weaver - 11/07/18 Chest X-Ray (Signed) Nikia Nolasco - 11/07/18 Chest X-Ray (Signed) Tawny Weaver - 09/19/18 Telemetry Strips 09/18/[address] (Signed) Suellen Herrmann - 09/18/18 Chest X-Ray (Signed) Darwin Long - 09/18/18 Chest X-Ray (Signed) Kiviat,Suellen - 09/18/18 Abdomen/Pelvis CT (Signed) Abdulaziz Chapman - 08/17/18 Bone Scan Nuclear Medicine (Signed) Ori Richter - 07/30/18 Telemetry Strips 07/29/[address] (Signed) Ricardo Lanza - 07/29/18 Elbow X-Ray (Signed) Ricardo Lanza - 07/29/18 Chest X-Ray (Signed) Ricardo Lanza - 07/29/18 Chest X-Ray (Signed) Idalia Guerrero - 07/14/[address] (Signed) Idalia Guerrero - 07/14/18 Elbow X-Ray (Signed) Jl Downs - 07/11/18 Telemetry Strips 06/11/[address] [address] [address] Scan Report Signed Patient: Emani Leiva MR#: [id number] : 1950 Acct:[id number] Age/Sex: 71 / F Date of Service: 02/09/22 Loc: ED Accession Number: [id number] ?? Procedure: CT thoracic spine wo con Ordering Provider: Jorge Mccall D.O. PROCEDURE:? CT THORACIC SPINE WO CON ? INDICATIONS:? fall with midline pain ? TECHNIQUE:? Noncontrast 3 mm thick sections acquired through the region of interest in the thoracic spine.? Sagittal and coronal reformats were then constructed.? For radiation dose reduction, the following was used:? automated exposure control.? ? COMPARISON:? [facility], CT, CT THORACIC SPINE WO CON, 05/23/2019, 16:41. ? FINDINGS:? Image quality:? Excellent.? ? Bones:? Generalized decreased osseous mineralization present.? Wedge-shaped compression fracture at T12 is new from the prior exam.? Compression fractures at T6 and T10 are similar to the prior.? No evidence of significant retropulsed fracture fragment ? Prior vertebroplasty treatment at L1 and L2, partially imaged ? Soft tissues:? No paravertebral masses or hematomas.? Visualized posteromedial lungs appear clear.? ? IMPRESSION:? ? T12 compression fracture, increased from the prior.? No retropulsed fracture fragment.? ? stable T6 and T10 compression fractures.? ? ? Approved by: Ceasar Myers M.D. on 02/09/2022 at 18:17? CT L Spine: Radiologist's Impression: Emani Leiva??71??F??1950 ? Allergy/Adv: furosemide, tramadol, amitriptyline (More??) Close Head CT (Signed) Ceasar Myers - 02/09/[address] (Signed) Ceasar Myers - 02/09/[address] (Signed) LouisCeasar - 02/09/[address] (Signed) Tawny Weaver - 02/09/22 Hip X-Ray 02/09/22 Ankle X-Ray 02/09/22 Telemetry Strips 04/15/21 Chest X-Ray (Signed) Idalia Guerrero - 04/14/21 Humerus X-Ray (Signed) Idalia Guerrero - 04/05/21 Telemetry Strips 03/30/[address] (Signed) Nikia Nolasco - 03/30/21 Chest X-Ray (Signed) Heath Scales - 03/30/[address] (Signed) Nikia Nolasco - 03/30/21 Lumbar Spine MRI (Signed) Nikia Nolasco - 11/12/20 Abdomen/Pelvis CT (Signed) NolascoNikia luis - 11/12/20 Lumbar Spine MRI (Signed) Jason Castle - 11/04/20 Thoracic Spine MRI (Signed) Jason Castle - 11/04/20 CT Scanning Biopsy/Drainage (Signed) Yoon Richteriris - 11/01/20 Chest X-Ray (Signed) AnshulDavid - 10/30/[address] (Signed) David Landers - 10/30/20 Abdomen/Pelvis CT (Signed) David Landers - 10/30/20 Telemetry Strips 10/29/20 Chest X-Ray (Signed) David Landers - 10/29/20 Abdomen Ultrasound (Signed) David Landers - 10/29/20 Lumbar Spine MRI (Signed) David Landers - 10/07/[address] (Signed) Darwin Long - 10/07/20 Lumbar Spine MRI (Signed) Idalia Guerrero - 09/15/20 Telemetry Strips 05/20/20 Ankle X-Ray (Signed) Nikia Nolasco - 05/20/20 Thoracic Spine MRI (Signed) Idalia Guerrero - 04/22/20 Lumbar Spine MRI (Signed) Idalia Guerrero - 04/22/20 Foot X-Ray (Signed) Jon Braxton - 11/10/19 Ankle X-Ray (Signed) Jon Braxton - 11/10/[address] (Signed) Ricardo Lanza - 10/05/19 Lumbar Spine X-Ray (Signed) Anthony Jordan - 07/28/19 Shoulder MRI (Signed) Anthony Jordan - 07/13/[address] (Signed) Kenneth Muñiz - 05/23/[address] (Signed) Kenneth Muñiz - 05/23/19 Lumbar Spine X-Ray (Signed) Kenneth Muñiz - 05/23/19 Humerus X-Ray (Signed) Kenneth Muñiz - 05/23/19 Lumbar Spine X-Ray (Signed) Nolasco,Nikia - 04/28/19 Lumbar Spine MRI (Signed) Jl Downs - 03/06/19 Abdomen/Pelvis CT (Signed) Tawny Weaver - 11/07/[address] (Signed) Tawny Weaver - 11/07/18 Chest X-Ray (Signed) Dave Nolascoley - 11/07/18 Chest X-Ray (Signed) Tawny Weaver - 09/19/18 Telemetry Strips 09/18/[address] (Signed) LbFlora beanah - 09/18/18 Chest X-Ray (Signed) MercedesDarwin - 09/18/18 Chest X-Ray (Signed) Suellen Herrmann - 09/18/18 Abdomen/Pelvis CT (Signed) Abdulaziz Chapman - 08/17/18 Bone Scan Nuclear Medicine (Signed) Ori Richter - 07/30/18 Telemetry Strips 07/29/[address] (Signed) Ricardo Lanza - 07/29/18 Elbow X-Ray (Signed) Ricardo Lanza - 07/29/18 Chest X-Ray (Signed) Ricardo Lanza - 07/29/18 Chest X-Ray (Signed) Idalia Guerrero - 07/14/[address] (Signed) Idalia Guerrero - 07/14/18 Elbow X-Ray (Signed) Jl Downs - 07/11/18 Telemetry Strips 06/11/18 Launch?[place] [address] CT Scan Report Signed Patient: Emani Leiva MR#: [id number] : 1950 Acct:[id number] Age/Sex: 71 / F Date of Service: 02/09/22 Loc: ED Accession Number: [id number] ?? Procedure: CT lumbar spine wo con Ordering Provider: Jorge Mccall D.O. PROCEDURE:? CT LUMBAR SPINE WO CON ? INDICATIONS:? fall with midline pain ? TECHNIQUE:? Noncontrast 3 mm thick sections acquired from the T12 level to the sacrum.? Sagittal and coronal reformats were constructed.? For radiation dose reduction, the following was used:? automated exposure control.? ? COMPARISON:? [facility], CR, XR LUMBAR SPINE 2 OR 3 VIEWS, 12/22/2020, 15:10.? [facility], CT, CT LUMBAR SPINE WO CON, 05/23/2019, 16:41. ? FINDINGS:? Image quality:? Excellent.? ? Bones:? There is normal bony alignment.? There are chronic compression fractures from L1 through L4 with vertebroplasty cement.? There has been no significant height loss in these vertebral bodies since the most recent prior x-ray.? There is a severe compression fracture of T12 which also appears stable.? No acute fracture.? The degree of retropulsed fragments of L2 and L3 is stable.? Posterior endplate spurring at L4-5 is chronic.? No visible pelvic fractures.? No suspicious lytic or blastic bony lesions.? No pars defects. ? ? T12-L1:? No central canal or foraminal stenosis. ? L1-L2:? No central canal stenosis.? Mild disc bulge causing mild bilateral foraminal stenosis. ? L2-L3:? No central canal stenosis.? Mild bilateral foraminal stenosis from disc bulge. ? L3-L4:? Mild central canal stenosis.? Mild left foraminal stenosis. ? L4-L5:? Moderate central canal stenosis due to facet hypertrophy and disc osteophyte.? Moderate bilateral foraminal narrowing, right worse than left. ? L5-S1:? No central canal or foraminal stenosis. ? Soft tissues:? There is collecting system calcification in the mid and lower pole of the left kidney.? Moderate abdominal aortic atherosclerotic calcification.? The urinary bladder is quite distended.? Visible bowel loops are unremarkable.? Post cholecystectomy. ?? No retroperitoneal masses or hematomas. ? ? IMPRESSION:? ? 1. No acute vertebral body fracture. ? 2. Several stable chronic lower thoracic and lumbar compression fractures, most with vertebroplasty cement. ? 3. Multilevel disc degeneration with mild to moderate bilateral foraminal stenosis. ? 4. Chronic left intrarenal staghorn calculi. ? 5. Urinary bladder distension.? ? ? Dictated by: Tawny Weaver M.D. on 02/09/2022 at 19:05 ? ? Approved by: Tawny Weaver M.D. on 02/09/2022 at 19:13 ? Extremity x-ray #1: Radiologist's Impression: Close Head CT (Signed) Ceasar Myers - 02/09/[address] (Signed) Ceasar Myers - 02/09/[address] (Signed) MyersCeasar - 02/09/[address] (Signed) Tawny Weaver - 02/09/22 Hip X-Ray (Signed) OwenTawny - 02/09/22 Ankle X-Ray (Signed) OwenTawny - 02/09/22 Telemetry Strips 04/15/21 Chest X-Ray (Signed) Idalia Guerrero - 04/14/21 Humerus X-Ray (Signed) Idalia Guerrero - 04/05/21 Telemetry Strips 03/30/[address] (Signed) Nikia Nolasco - 03/30/21 Chest X-Ray (Signed) LoydaHeath - 03/30/[address] (Signed) Nikia Nolasco - 03/30/21 Lumbar Spine MRI (Signed) Nikia Nolasco - 11/12/20 Abdomen/Pelvis CT (Signed) Nikia Nolasco - 11/12/20 Lumbar Spine MRI (Signed) Jason Castle - 11/04/20 Thoracic Spine MRI (Signed) Jason Castle - 11/04/20 CT Scanning Biopsy/Drainage (Signed) Ori Richter - 11/01/20 Chest X-Ray (Signed) David Landers - 10/30/[address] (Signed) David Landers - 10/30/20 Abdomen/Pelvis CT (Signed) David Landers - 10/30/20 Telemetry Strips 10/29/20 Chest X-Ray (Signed) David Landers - 10/29/20 Abdomen Ultrasound (Signed) David Landers - 10/29/20 Lumbar Spine MRI (Signed) David Landers - 10/07/[address] (Signed) Darwin Long - 10/07/20 Lumbar Spine MRI (Signed) Idalia Guerrero - 09/15/20 Telemetry Strips 05/20/20 Ankle X-Ray (Signed) Nikia Nolasco - 05/20/20 Thoracic Spine MRI (Signed) Idalia Guerrero - 04/22/20 Lumbar Spine MRI (Signed) Idalia Guerrero - 04/22/20 Foot X-Ray (Signed) Jon Braxton - 11/10/19 Ankle X-Ray (Signed) Jon Braxton - 11/10/[address] (Signed) Ricardo Lanza - 10/05/19 Lumbar Spine X-Ray (Signed) Anthony Jordan - 07/28/19 Shoulder MRI (Signed) Anthony Jordan - 07/13/[address] (Signed) Kenneth Muñiz - 05/23/[address] (Signed) Kenneth Muñiz - 05/23/19 Lumbar Spine X-Ray (Signed) Kenneth Muñiz - 05/23/19 Humerus X-Ray (Signed) Kenneth Muñiz - 05/23/19 Lumbar Spine X-Ray (Signed) Nikia Nolasco - 04/28/19 Lumbar Spine MRI (Signed) Jl Downs - 03/06/19 Abdomen/Pelvis CT (Signed) Tawny Weaver - 11/07/[address] (Signed) Tawny Weaver - 11/07/18 Chest X-Ray (Signed) Nikia Nolasco - 11/07/18 Chest X-Ray (Signed) Tawny Weaver - 09/19/18 Telemetry Strips 09/18/[address] (Signed) Alize,Suellen - 09/18/18 Chest X-Ray (Signed) Darwin Long - 09/18/18 Chest X-Ray (Signed) Kiviat,Suellen - 09/18/18 Abdomen/Pelvis CT (Signed) Abdulaziz Chapman - 08/17/18 Bone Scan Nuclear Medicine (Signed) Ori Richter - 07/30/18 Telemetry Strips 07/29/[address] (Signed) Ricardo Lanza - 07/29/18 Elbow X-Ray (Signed) Ricardo Lanza - 07/29/18 Chest X-Ray (Signed) Ricardo Lanza - 07/29/18 Chest X-Ray (Signed) Idalia Guerrero - 07/14/[address] (Signed) Idalia Guerrero - 07/14/18 Elbow X-Ray (Signed) Jl Downs - 07/11/18 Telemetry Strips 06/11/[address] [address] XRay Report Signed Patient: Emani Leiva MR#: [id number] : 1950 Acct:[id number] Age/Sex: 71 / F Date of Service: 02/09/22 Loc: ED Accession Number: [id number] ?? Procedure: XR ankle LT min 3V Ordering Provider: Jorge Mccall D.O. PROCEDURE:? XR ANKLE LT MIN 3V ? INDICATIONS:? fall with left ankle pain ? TECHNIQUE:? Three views of the ankle were acquired.? ? COMPARISON:? [facility], CR, XR ANKLE LT MIN 3V, 05/20/2020, 15:17. ? FINDINGS:? ? Bones:? Intact hardware fixing a previous ankle fracture.? No acute fractures.? Ankle mortise appears intact.? No new bone lesions. ? Soft tissues:? No tibiotalar joint effusion.? Achilles tendon appears normal.? ? ? IMPRESSION:? ? 1. No acute fractures. ? 2. Intact fixation hardware.? Dictated by: Tawny Weaver M.D. on 02/09/2022 at 20:28 ? ? Approved by: Tawny Weaver M.D. on 02/09/2022 at 20:29 ? Extremity x-ray #2: Radiologist's Impression: ? Chart Viewer Diagnostics Subcategory All Activity ??:?? All Time ??:?? All Subcategories Filter Laboratory Imaging Microbiology Pathology Blood Bank Tests Cardiovascular Other Specialty DATE TYPE STATUS REF RANGE/AUTHOR Hx Today 18:[address] Signed Ceasar Myers Today 18:[address] Signed Ceasar Myers Today 18:[address] Signed Ceasar Myers Today 18:[address] Signed Tawny Weaver Today 18:11 Hip X-Ray Signed Tawny Weaver Today 18:11 Ankle X-Ray Signed Tawny Weaver 04/15/21 11:41 Telemetry Strips ? 04/14/21 17:20 Chest X-Ray Signed Idalia Guerrero 04/05/21 13:27 Humerus X-Ray Signed Idalia Guerrero 03/30/21 10:47 Telemetry Strips ? 03/30/21 08:[address] Signed Nikia Nolasco 03/30/21 08:16 Chest X-Ray Signed Heath Scales 03/30/21 08:[address] Signed Nikia Nolasco 11/12/20 13:46 Lumbar Spine MRI Signed Nikia Nolasco 11/12/20 13:11 Abdomen/Pelvis CT Signed Nikia Nolasco 11/04/20 13:28 Lumbar Spine MRI Signed Jason Castle 11/04/20 13:27 Thoracic Spine MRI Signed Jason Castle 11/01/20 00:00 CT Scanning Biopsy/Drainage Signed Ori Richter 10/30/20 13:51 Chest X-Ray Signed David Landers 10/30/20 07:[address] Signed David Landers 10/30/20 07:25 Abdomen/Pelvis CT Signed David Landers 10/29/20 14:12 Telemetry Strips ? 10/29/20 14:06 Chest X-Ray Signed David Landers 10/29/20 14:06 Abdomen Ultrasound Signed David Landers 10/07/20 10:46 Lumbar Spine MRI Signed David Landers 10/07/20 10:[address] Signed Darwin Long 09/15/20 00:00 Lumbar Spine MRI Signed Idalia Guerrero 05/20/20 12:39 Telemetry Strips ? 05/20/20 00:00 Ankle X-Ray Signed Nikia Nolasco 04/22/20 00:00 Thoracic Spine MRI Signed Idalia Guerrero 04/22/20 00:00 Lumbar Spine MRI Signed Idalia Guerrero 11/10/19 13:16 Foot X-Ray Signed Jon Braxton 11/10/19 13:16 Ankle X-Ray Signed Jon Braxton 10/05/19 14:[address] Signed Ricrado Lanza 07/28/19 00:00 Lumbar Spine X-Ray Signed Anthony Jordan 07/13/19 16:07 Shoulder MRI Signed Anthony Jordan 05/23/19 16:[address] Signed Kenneth Muñiz 05/23/19 16:[address] Signed Kenneth Muñiz 05/23/19 15:30 Lumbar Spine X-Ray Signed Kenneth Muñiz 05/23/19 15:30 Humerus X-Ray Signed Kenneth Muñiz 04/28/19 00:00 Lumbar Spine X-Ray Signed Nikia Nolasco 03/06/19 00:00 Lumbar Spine MRI Signed Jl Downs 11/07/18 14:32 Abdomen/Pelvis CT Signed OwenTawny 11/07/18 14:[address] Signed Tawny Weaver 11/07/18 14:30 Chest X-Ray Signed Nikia Nolasco 09/19/18 02:05 Chest X-Ray Signed OwenTawny 09/18/18 22:30 Telemetry Strips ? 09/18/18 21:[address] Signed Suellen Herrmann 09/18/18 20:53 Chest X-Ray Signed Darwin Long 09/18/18 18:14 Chest X-Ray Signed Suellen Herrmann 08/17/18 13:10 Abdomen/Pelvis CT Signed Abdulaziz Chapman 07/30/18 00:00 Bone Scan Nuclear Medicine Signed Ori Richter 07/29/18 20:45 Telemetry Strips ? 07/29/18 18:[address] Signed Ricardo Lanza 07/29/18 17:22 Elbow X-Ray Signed Ricardo Lanza 07/29/18 17:22 Chest X-Ray Signed Ricardo Lanza 07/14/18 16:33 Chest X-Ray Signed Idalia Guerrero 07/14/18 16:[address] Signed Idalia Guerrero 07/11/18 20:11 Elbow X-Ray Signed Jl Downs 06/11/18 18:42 Telemetry Strips ? Emani Leiva ED 71, F?1950 MRN#? [id number] REG ER,?Main ED??R07?? Fall Acc#? [id number] Resus Status Not Ordered Hx Avail Special Indicators MRSA - Contact Home Meds Not Confirmed Prescription Monitoring Program MEDICATIONS (INSTRUCTIONS) LAST TAKEN Active ??carisoprodol ??350 mgPOTIDPRNMuscle Spasm ??hydrocortisone ??10 mgPO.q pm#30 tabs ??metoprolol tartrate ??25 mgPOBID##0 ??oxycodone ??10 [id number], Moderate Allergies furosemide (From Lasix) Rash tramadol (TRAMADOL) amitriptyline (AMITRIPTYLINE) Confusion Problems ? ONSET Acute hyponatremia Stage 3 chronic kidney disease Urinary tract infection Pneumonia Altered mental status Psoas muscle abscess Dehydration Elevated alkaline phosphatase level Distal radius fracture, left Thoracic back pain Left shoulder pain Tingling of left upper extremity Pre-syncope Tachycardia Thrombocytosis Acute renal failure Anemia Fracture of upper extremity Acute UTI Weakness Falls frequently Accidental acetaminophen overdose Overdose of salicylate Metabolic acidosis Weakness UTI (urinary tract infection) Thrombocytosis Leukocytosis Vital Signs Today 18:30 BP 151/120?H Pulse 75? Resp 15? O2 Sat 100? Diagnostics Reports Emani Leiva??71??F??1950 ? Allergy/Adv: furosemide, tramadol, amitriptyline (More??) Close Head CT (Signed) Louis,Ceasar - 02/09/[address] (Signed) Myers,Ceasar - 02/09/[address] (Signed) Myers,Ceasar - 02/09/[address] (Signed) Tawny Weaver - 02/09/22 Hip X-Ray (Signed) Tawny Weaver - 02/09/22 Ankle X-Ray (Signed) Tawny Weaver - 02/09/22 Telemetry Strips 04/15/21 Chest X-Ray (Signed) Idalia Guerrero - 04/14/21 Humerus X-Ray (Signed) Idalia Guerrero - 04/05/21 Telemetry Strips 03/30/[address] (Signed) Nikia Nolasco - 03/30/21 Chest X-Ray (Signed) Heath Scales - 03/30/[address] (Signed) Nikia Nolasco - 03/30/21 Lumbar Spine MRI (Signed) Nikia Nolasco - 11/12/20 Abdomen/Pelvis CT (Signed) Nikia Nolasco - 11/12/20 Lumbar Spine MRI (Signed) Jason Castle - 11/04/20 Thoracic Spine MRI (Signed) Jason Castle - 11/04/20 CT Scanning Biopsy/Drainage (Signed) Ori Richter - 11/01/20 Chest X-Ray (Signed) David Landers - 10/30/[address] (Signed) David Landers - 10/30/20 Abdomen/Pelvis CT (Signed) David Landers - 10/30/20 Telemetry Strips 10/29/20 Chest X-Ray (Signed) David Landers - 10/29/20 Abdomen Ultrasound (Signed) David Landers - 10/29/20 Lumbar Spine MRI (Signed) David Landers - 10/07/[address] (Signed) Darwin Long - 10/07/20 Lumbar Spine MRI (Signed) Idalia Guerrero - 09/15/20 Telemetry Strips 05/20/20 Ankle X-Ray (Signed) Nikia Nolasco - 05/20/20 Thoracic Spine MRI (Signed) Idalia Guerrero - 04/22/20 Lumbar Spine MRI (Signed) Idalia Guerrero - 04/22/20 Foot X-Ray (Signed) Jon Braxton - 11/10/19 Ankle X-Ray (Signed) Jon Braxton - 11/10/[address] (Signed) Ricardo Lanza - 10/05/19 Lumbar Spine X-Ray (Signed) Anthony Jordan - 07/28/19 Shoulder MRI (Signed) Anthony Jordan - 07/13/[address] (Signed) Kenneth Muñiz - 05/23/[address] (Signed) Kenneth Muñiz - 05/23/19 Lumbar Spine X-Ray (Signed) Kenneth Muñiz - 05/23/19 Humerus X-Ray (Signed) Kenneth Muñiz - 05/23/19 Lumbar Spine X-Ray (Signed) Nikia Nolasco - 04/28/19 Lumbar Spine MRI (Signed) Jl Downs - 03/06/19 Abdomen/Pelvis CT (Signed) Tawny Weaver - 11/07/[address] (Signed) Tawny Weaver - 11/07/18 Chest X-Ray (Signed) Nikia Nolasco - 11/07/18 Chest X-Ray (Signed) Tawny Weaver - 09/19/18 Telemetry Strips 09/18/[address] (Signed) Alize,Suellen - 09/18/18 Chest X-Ray (Signed) Darwin Long - 09/18/18 Chest X-Ray (Signed) Alize,Suellen - 09/18/18 Abdomen/Pelvis CT (Signed) Abdulaziz Chapman - 08/17/18 Bone Scan Nuclear Medicine (Signed) Ori Richter - 07/30/18 Telemetry Strips 07/29/[address] (Signed) Ricardo Lanza - 07/29/18 Elbow X-Ray (Signed) LanzaRicardo - 07/29/18 Chest X-Ray (Signed) Ricardo Lanza - 07/29/18 Chest X-Ray (Signed) Idalia Guerrero - 07/14/[address] (Signed) Idalia Guerrero - 07/14/18 Elbow X-Ray (Signed) DownsJl - 07/11/18 Telemetry Strips 06/11/18 Launch?[address] [address] XRay Report Signed Patient: Emani Leiva MR#: [id number] : 1950 Acct:[id number] Age/Sex: 71 / F Date of Service: 02/09/22 Loc: ED Accession Number: [id number] ?? Procedure: XR hip w pel if done RT 2V Ordering Provider: Jorge Mccall D.O. PROCEDURE:? XR HIP W PEL IF DONE RT 2V ? INDICATIONS:? fall with pain ? TECHNIQUE:? AP pelvis with lateral view(s) of the right hip(s).? ? COMPARISON:? None. ? FINDINGS:? ? Bones:? Probable acute avulsion fracture off the right ischial tuberosity.? No other acute fractures.? There are several lower lumbar compression fractures with vertebroplasty cement.? Pelvic ring appears intact.? No suspicious bony lesions.? ? Soft tissues:? The visualized bowel gas pattern is normal.? No suspicious soft tissue calcifications.? ? ? IMPRESSION:? ? 1. Probable right ischial tuberosity avulsion at the hamstrings tendon origin.? Correlate clinically.? Dictated by: Tawny Weaver M.D. on 02/09/2022 at 20:26 ? ? Approved by: Tawny Weaver M.D. on 02/09/2022 at 20:28 ? Discharge Plan Departure Patient Disposition: Home Clinical Impression: Compression fracture of T12 vertebra, Avulsion fracture of right ischial tuberosity Instructions: How to Prevent Falls Activity Restrictions/Additional Instructions: *You have been diagnosed with [slight worsening of the compression fracture at T12, and a new avulsion fracture of your right ischial tuberosity. As we discussed all the other imaging is reassuring and this new finding is not a surgical injury. It will involve weight-bearing as tolerated, likely with the use of a walker, and pain control] *What to do: *Please continue to take your regular medications as directed. [x ] New medication prescriptions sent to your pharmacy: [[facility] in [place] ] [ ] New medication written as a paper prescription [x] Tylenol and occasional Motrin for pain *Please follow up with [ Shirin] of [facility] in 2-3 days, call for an appointment. Let them know you were seen in the Emergency Department and that we ask that you be seen in follow up. We will electronically transmit a record of today's note if your PCP is in our system *Return to Emergency Department if you should have any new, worsening or concerning symptoms, such as [worsening pain, significant swelling, cold extremities, numbness, tingling, weakness or other bothersome symptoms Prescriptions: New oxycodone 10 mg tablet 10 mg PO Q6H PRN (Reason: pain) Qty: 30 0RF carisoprodol 350 mg tablet 350 mg PO TID PRN (Reason: muscle pain) Qty: 20 0RF No Action metoprolol tartrate 25 MG tablet 25 mg PO BID Qty: 0 hydrocortisone 10 mg tablet 10 mg PO .q pm Qty: 30 0RF carisoprodol 350 mg tablet 350 mg PO TID PRN (Reason: Muscle Spasm) oxycodone 10 mg 10 mg PO Q4HR MDD 60 mg PRN (Reason: Pain, Moderate) Referrals: Marilou Carpio MD [Physician] - Luis Villalobos MD [Primary Care Provider] - Visit Report Forms: Patient Portal/API
[2022-02-09] MEDS: HYDROMORPHONE 0.5 MG INJ IV (18:37)
--- NOTE | 2022-02-09 21:11 | DI.CT.S_ITS ---
PROCEDURE: CT PEL WO CON INDICATIONS: severe sacral pain TECHNIQUE: Noncontrast 3 mm axial sections acquired through the bony pelvis, with coronal and sagittal reformatting. COMPARISON: [facility], CT, CT ABDOMEN PELVIS WITH CONTRAST, 02/11/2021, 10:02. [facility], CT, CT LUMBAR SPINE WO CON, 02/09/2022, 18:17. [facility], CR, XR ANKLE LT MIN 3V, 02/09/2022, 18:31. [facility], CR, XR HIP W PEL IF DONE RT 2V, 02/09/2022, 18:31. FINDINGS: Image quality: Excellent. Bones: There is a mildly comminuted, moderately displaced fracture seen involving the right ischial tuberosity, which is best seen on series 3, image 38. No additional fractures of the bones of the pelvis can be seen. In this patient with this given history, scrutiny is given to sacrum and coccyx. No acute fractures can be seen of these bones. Mild deformity can be seen at the S2-S3 level, which is stable compared to 2020. No proximal femur fracture can be seen. There is no dislocation. Lower lumbar spine vertebroplasty cement can be seen at L4 and L5. Soft tissues: Atherosclerotic calcification is noted. No dilated loops of small bowel are seen. Mild distal colonic diverticulosis is seen, without findings of active diverticulitis. This patient is status post hysterectomy. No adnexal masses are seen. There is a partially seen staghorn calculus on the left. IMPRESSION: Fracture of the right ischial tuberosity. No sacral fracture is seen. Incidental note is made of: Left kidney staghorn calculus L4 and L5 vertebroplasty cement Hysterectomy Chronic deformity seen at the S2-S3 level. Dictated by: Darwin Lnog M.D. on 02/09/2022 at 20:59 Approved by: Darwin Long M.D. on 02/09/2022 at 21:04
[2022-02-09] MEDS: MORPHINE 4 MG/ML INJ IV ×2 (21:16→23:07)
--- NOTE | 2022-02-09 21:40 | PC.NURSE ---
returned from CT waiting test results and disposition
[2022-02-09] MEDS: OXYCODONE/APAP 5/325 PREPACK 1 BOTTLE MISC (23:30)
== END 2022-02-09 23:38 | disposition home or self-care (01) ==
PROVIDERS: Emergency Provider Emergency Medicine; PCP Pediatrics
DX: S22.080A Wedge compression fracture of T11-T12 vertebra, initial encounter for closed fracture (principal); S32.611A Displaced avulsion fracture of right ischium, initial encounter for closed fracture; S09.90XA Unspecified injury of head, initial encounter; M54.2 Cervicalgia; R10.2 Pelvic and perineal pain; M25.572 Pain in left ankle and joints of left foot; W18.30XA Fall on same level, unspecified, initial encounter
CPT/HCPCS: 36415; 70450; 72125; 72128; 72131; 72192; 73502; 73610; 96374; 96375; 96376; 99285; J1170; J2270

== ENCOUNTER → 2022-02-16 11:47 | Outpatient (CLI) | payer MEDICARE, MEDICAID, SELFPAY ==
[2021-04-14 23:27] VITALS: BMI 20.2
[2022-02-16 12:49] LABS: Add Manual Diff / Slide Review NO; Basophils Absolute Auto 100 /uL (0-100); Basophils Percent Auto 1.4 % (0-2); Eosinophils Absolute Auto 100 /uL (0-450); Eosinophils Percent Auto 1.5 % (2-4); Hematocrit 36.8 % (36-46); Hemoglobin 12.3 g/dL (12.0-16.0); Lymphocytes Absolute Auto 1300 /uL (1100-4500); Mean Corpuscular HGB Conc 33.5 % (30-36); Mean Corpuscular Hemoglobin 32.3 PG (26-34); Mean Corpuscular Volume 96.6 fL (80-100); Monocytes Absolute Auto 400 /uL (0-900); Monocytes Percent Auto 4.9 % (3-14); Neutrophils Absolute Auto 5700 /uL (1500-7000); Neutrophils Percent Auto 75.2 % (50-75); Platelet Count 510 X10^3/uL (150-400); Red Blood Cell Count 3.81 X10^6/uL (4.0-5.2); Red Cell Distribution Width 19.5 % (11.6-14.8); White Blood Cell Count 7.5 X10^3/uL (4.5-11.0)
[2022-02-16 13:13] LABS: Alanine Aminotransferase 24 IU/L (<35); Albumin 4.9 g/dL (3.5-5.0); Albumin Globulin Ratio 1.3 (1.0-2.8); Alkaline Phosphatase 133 U/L (38-126); Aspartate Aminotransferase 29 IU/L (14-36); BUN Creatinine Ratio 32.2 (6-22); Bilirubin Total 0.4 mg/dL (0.2-1.3); Blood Urea Nitrogen 38 mg/dL (7-17); Calcium 9.6 mg/dL (8.4-10.2); Carbon Dioxide 25 mmol/L (22-32); Chloride 104 mmol/L (98-107); Estimated Glomerular Filt Rate 50 mL/min (>60); Globulin 3.7 g/dL (1.7-4.1); Glucose 120 mg/dL (80-110); HEMOLYSIS < 15 (0-50); Iron 93 ug/dL (37-170); Potassium 4.4 mmol/L (3.4-5.1); Sodium 139 mmol/L (137-145); Total Protein 8.6 g/dL (6.3-8.2)
[2022-02-16 13:24] LABS: Percent Iron Saturation 40 % (15-50); Total Iron Binding Capacity 230 ug/dL (265-497); Transferrin 203 mg/dL (206-381)
[2022-02-16 13:47] LABS: TSH w/ Reflex to FT4 0.37 uIU/mL (0.47-4.68)
[2022-02-16 13:48] LABS: Ferritin 557 ng/mL (11-264)
[2022-02-16 14:02] LABS: Vitamin B12 798 pg/mL (239-931)
[2022-02-16 15:06] LABS: Free T4, Direct Thyroxine 0.78 ng/dL (0.78-2.19)
== END ==
PROVIDERS: PCP Family Medicine; Referring Provider Family Medicine; Visit Provider Family Medicine
DX: E87.1 Hypo-osmolality and hyponatremia (principal); E11.9 Type 2 diabetes mellitus without complications; N17.9 Acute kidney failure, unspecified; N18.30 Chronic kidney disease, stage 3 unspecified; S22.080A Wedge compression fracture of T11-T12 vertebra, initial encounter for closed fracture
CPT/HCPCS: 36415; 80053; 82607; 82728; 83540; 83550; 84439; 84443; 85025

== ENCOUNTER 2022-03-28 13:49 | Inpatient (IN) | payer MEDICARE, MEDICAID, SELFPAY ==
[2021-04-14 23:27] VITALS: BMI 20.2
[2022-03-28] VITALS (28 sets, daily range): BP systolic 145–201; BP diastolic 71–105; PULSE 83–144; RESP 9–26; TEMP 36.6–37.2; O2SAT 93–100; BMI 15.7
--- NOTE | 2022-03-28 14:02 | ED_ITS ---
HPI - Altered Mental Status <Cynthia Kennedy DO - Last Filed: 04/02/22 04:55> General Chief Complaint: Neuro Symptoms/Deficit Stated Complaint: Alt mental status Time Seen by Provider: 03/28/22 13:56 Source: patient, EMS and old records reviewed Mode of arrival: EMS Limitations: altered mental status History of Present Illness HPI narrative: This is a 71-year-old female former smoker with history of chronic kidney disease, hypertension and chronic pain who presents for altered mental status. Patient does respond to me but does not answer questions, she moves all of her limbs independently. Patient family had called earlier today to stay that he wanted her to be seen because she is been altered, that she was seen twice recently at [facility] and was discharged x2. Patient has just been discharged today from [facility] she had altered mentation, has had prior medication overdoses and this was suspected to be the cause patient had improving mentation throughout her day into this morning she did have positive for oxycodone on her lab work obtained from [facility]. Patient did not have any other clear cause found on her workup and was boarded in the emergency department as there was no beds available. She was more alert and conversant this morning answering questions in short answers able to get herself up in bed attempted to stand but was weak. Baseline reportedly ambulatory at home. Patient denied any excess medications but seemed to have improved upon discharge when son picked her up earlier today. Related Data Previous Rx's Medication Instructions Recorded metoprolol tartrate 25 mg tablet 25 mg PO BID #180 tabs 02/16/22 methocarbamol 500 mg tablet See Rx Instructions .Route 03/02/22 .COMPLEX #30 tabs oxycodone 10 mg tablet 10 mg PO Q6H PRN pain #120 tabs 03/23/22 cephalexin 500 mg capsule 500 mg PO TID #9 caps 04/01/22 Allergies Allergy/AdvReac Type Severity Reaction Status Date / Time furosemide [From Lasix] Allergy Intermediate Rash Verified 03/28/22 14:02 tramadol [TRAMADOL] Allergy Unknown Verified 03/28/22 14:02 amitriptyline [AMITRIPTYLINE] AdvReac Intermediate Confusion Verified 03/28/22 14:02 Review of Systems <DO Laura Milligan Last Filed: 04/02/22 04:55> Review of Systems ROS Unobtainable: Unobtainable due to mental status/LOC Patient History <Cynthia Kennedy DO - Last Filed: 04/02/22 04:55> Medical History Anxiety Arthritis C. difficile colitis Chronic pain Colitis Compression fracture of L1 vertebra (~07/2019) COPD (chronic obstructive pulmonary disease) Depression DJD (degenerative joint disease) Fibromyalgia Fracture, tibia GI bleeding History of osteomyelitis History of recurrent UTIs HLD (hyperlipidemia) Hypertension Hypertension Insomnia Iron (Fe) deficiency anemia Left foot drop Lumbar compression fracture (02/26/19) Migraines Multiple fractures Nephrolithiasis Neuropathy Numbness and tingling Osteoporosis Osteoporosis Peptic ulcer disease Pre-diabetes Radius fracture (08/30/17) Renal disease Stage 3 chronic kidney disease Surgical History H/O: hysterectomy History of surgery Hx of appendectomy Hx of cholecystectomy Hx of elbow surgery Hx of kyphoplasty (~2013) Hx of kyphoplasty (04/28/19) Hx of kyphoplasty (07/28/19) Hx of tonsillectomy Status post epidural steroid injection (03/25/19) Family History Mother No known health problems COPD (chronic obstructive pulmonary disease) Father No known health problems Social History household members: significant other and children Smoking Status: Former smoker alcohol intake: current Smoking Status: Former smoker alcohol intake frequency: holidays/special occasions only Substance Use Type: does not use and former substance user Exam <Cynthia Kennedy DO - Last Filed: 04/02/22 04:55> Narrative Exam Narrative: GEN: elderly female, alert, patient opens eyes spontaneously, she will nod her head occasionally but does not answer questions, patient appears to be in mild distress. Patient does not appear somnelent but is minimally interactive. HEENT: Atraumatic, pupils are equal round reactive to light, approximately 3 mm bilaterally, extraocular movements are intact, nares are clear, TMs are clear with no fluid, there is no conjunctival pallor. Throat is clear without any exu dates, erythema, tonsillar enlargement or uvular deviation, no facial droop appreciated. HEART: Regular rate and rhythm without murmur, clicks, rubs. pulses are equal in upper and lower extremities LUNGS:Lungs clear to auscultation, no wheezes, rales, crackles, chest moves symmetrically ABD:bowel sounds normal, soft, non-tender, no guarding, rebound, rigidity, no masses noted, no hepatosplenomegaly :No CVA tenderness MSCL: Non-tender, no muscle atrophy, muscles strength 5/5 upper and lower ex tremities, full range of motion. Patient moves all 4 limbs independently without issue. NEURO:CN 2-12 intact, sensation normal, reflexes 2/4 upper and lower extremities. Patient does not follow commands for full neuro eval. SKIN: no rash, no erythema or other skin changes. Initial Vital Signs Initial Vital Signs: Vital Signs Blood Pressure 194/88 H 03/28/22 13:54 <Delores Massey MD - Last Filed: 03/29/22 07:13> Initial Vital Signs Initial Vital Signs: Vital Signs Blood Pressure 194/88 H 03/28/22 13:54 Scores <Cynthia Kennedy DO - Last Filed: 04/02/22 04:55> GCS Rosalie coma scale eye opening: Spontaneous [place] coma scale verbal response: Confused Rosalie coma scale motor response: Localising (does not follow commands but does move limbs independently.) Rosalie coma scale total score: 13 Course <Cynthia Kennedy DO - Last Filed: 04/02/22 04:55> Orders Ordered: Discontinued Medications Acetaminophen (Acetaminophen 325 Mg Tablet) 650 mg PO Q6HR PRN PRN Reason: Fever Last Admin: 04/01/22 10:36 Dose: 650 mg Documented By: Admin: 04/01/22 02:27 Dose: 650 mg Documented By: Admin: 03/31/22 18:02 Dose: 650 mg Documented By: Admin: 03/31/22 09:13 Dose: 650 mg Documented By: Admin: 03/30/22 20:41 Dose: 650 mg Documented By: Admin: 03/30/22 11:55 Dose: 650 mg Documented By: Admin: 03/30/22 06:39 Dose: 650 mg Documented By: Admin: 03/30/22 01:03 Dose: 650 mg Documented By: Admin: 03/29/22 19:51 Dose: 650 mg Documented By: Admin: 03/29/22 11:46 Dose: 650 mg Documented By: SHANNON Enoxaparin Sodium (Enoxaparin 40 Mg/0.4 Ml Syringe) 40 mg SUBCUT DAILY LACY Last Admin: 04/01/22 09:05 Dose: Not Given Documented By: Admin: 03/31/22 08:30 Dose: 40 mg Documented By: Admin: 03/30/22 08:10 Dose: 40 mg Documented By: Admin: 03/29/22 09:09 Dose: 40 mg Documented By: SHANNON Heparin Sodium (Porcine) (Heparin Flush (Cl/Picc/Mid-Line) 50 Unit/5 Ml Syringe) 50 unit IV PRN PRN PRN Reason: Flush Last Admin: 03/30/22 05:28 Dose: 50 unit Documented By: JYOTI Hydromorphone HCl (Hydromorphone 0.5 Mg Inj) 0.5 mg IV Q4H PRN PRN Reason: Breakthrough pain only (8-10) Sodium Chloride (Normal Saline 0.9%) 1,000 mls @ 1,000 mls/hr IV BOLUS ONE Stop: 03/28/22 15:04 Last Infusion: 03/28/22 17:10 Dose: 0 mls/hr Documented By: Admin: 03/28/22 15:01 Dose: 1,000 mls/hr Documented By: CRYSTAL Ceftriaxone Sodium 2,000 mg/ (Sodium Chloride) 100 mls @ 200 mls/hr IV NOW ONE Stop: 03/28/22 18:25 Last Infusion: 03/28/22 20:01 Dose: 0 mls/hr Documented By: Admin: 03/28/22 19:25 Dose: 200 mls/hr Documented By: NELI Sodium Chloride (Normal Saline 0.9%) 1,000 mls @ 150 mls/hr IV CONT LACY Last Infusion: 03/31/22 08:32 Dose: 0 mls/hr Documented By: Infusion: 03/31/22 06:39 Dose: 150 mls/hr Documented By: Admin: 03/31/22 06:39 Dose: 150 mls/hr Documented By: Infusion: 03/31/22 06:33 Dose: 150 mls/hr Documented By: Admin: 03/30/22 23:52 Dose: 150 mls/hr Documented By: Infusion: 03/30/22 22:56 Dose: 150 mls/hr Documented By: Admin: 03/30/22 16:15 Dose: 150 mls/hr Documented By: Infusion: 03/30/22 14:50 Dose: 150 mls/hr Documented By: Admin: 03/30/22 08:09 Dose: 150 mls/hr Documented By: Infusion: 03/30/22 06:29 Dose: 150 mls/hr Documented By: Admin: 03/29/22 23:48 Dose: 150 mls/hr Documented By: Infusion: 03/29/22 12:41 Dose: 150 mls/hr Documented By: Admin: 03/29/22 06:00 Dose: 150 mls/hr Documented By: Infusion: 03/29/22 04:40 Dose: 150 mls/hr Documented By: Admin: 03/28/22 21:59 Dose: 150 mls/hr Documented By: DANETTE Ceftriaxone Sodium 1,000 mg/ (Sodium Chloride) 100 mls @ 200 mls/hr IV Q24H LACY Stop: 04/02/22 18:29 Last Admin: 03/31/22 17:08 Dose: 200 mls/hr Documented By: Infusion: 03/30/22 18:31 Dose: 0 mls/hr Documented By: Admin: 03/30/22 18:01 Dose: 200 mls/hr Documented By: Infusion: 03/29/22 18:41 Dose: 0 mls/hr Documented By: Admin: 03/29/22 18:11 Dose: 200 mls/hr Documented By: SHANNON Metronidazole (Flagyl) 500 mg in 100 mls @ 100 mls/hr IV Q6H LACY Last Infusion: 03/30/22 14:45 Dose: 0 mls/hr Documented By: Admin: 03/30/22 13:44 Dose: 100 mls/hr Documented By: Infusion: 03/30/22 09:10 Dose: 0 mls/hr Documented By: Admin: 03/30/22 08:10 Dose: 100 mls/hr Documented By: Infusion: 03/30/22 03:55 Dose: 0 mls/hr Documented By: Admin: 03/30/22 02:55 Dose: 100 mls/hr Documented By: Infusion: 03/29/22 22:21 Dose: 0 mls/hr Documented By: Admin: 03/29/22 21:21 Dose: 100 mls/hr Documented By: Infusion: 03/29/22 16:34 Dose: 0 mls/hr Documented By: Admin: 03/29/22 15:34 Dose: 100 mls/hr Documented By: Infusion: 03/29/22 11:42 Dose: 0 mls/hr Documented By: Admin: 03/29/22 09:08 Dose: 100 mls/hr Documented By: Infusion: 03/29/22 04:49 Dose: 100 mls/hr Documented By: Admin: 03/29/22 03:49 Dose: 100 mls/hr Documented By: Infusion: 03/28/22 23:13 Dose: 100 mls/hr Documented By: Admin: 03/28/22 22:13 Dose: 100 mls/hr Documented By: LOUISE POTASSIUM CHLORIDE IN WATER (Potassium Cl 10 Meq/100 Ml Shavon) 10 meq in 100 mls @ 100 mls/hr IV Q1H LACY Stop: 03/29/22 16:14 Last Infusion: 03/29/22 20:12 Dose: 0 mls/hr Documented By: Admin: 03/29/22 19:40 Dose: Not Given Documented By: Admin: 03/29/22 19:13 Dose: 100 mls/hr Documented By: Infusion: 03/29/22 17:52 Dose: 100 mls/hr Documented By: Admin: 03/29/22 16:52 Dose: 100 mls/hr Documented By: Infusion: 03/29/22 15:07 Dose: 100 mls/hr Documented By: Admin: 03/29/22 14:07 Dose: 100 mls/hr Documented By: SHANNON POTASSIUM CHLORIDE IN WATER (Potassium Cl 10 Meq/100 Ml Shavon) 10 meq in 100 mls @ 100 mls/hr IV Q1H LACY Stop: 03/29/22 20:29 Last Infusion: 03/29/22 21:25 Dose: 0 mls/hr Documented By: Admin: 03/29/22 20:08 Dose: 100 mls/hr Documented By: JYOTI Magnesium Chloride (Magnesium Chloride 64 Mg Tablet) 128 mg PO NOW ONE Stop: 03/29/22 16:16 Last Admin: 03/29/22 16:49 Dose: 128 mg Documented By: SHANNON Magnesium Chloride (Magnesium Chloride 64 Mg Tablet) 128 mg PO NOW ONE Stop: 03/30/22 11:46 Last Admin: 03/30/22 11:55 Dose: 128 mg Documented By: ANUP Magnesium Oxide (Magnesium Oxide 400 Mg Tablet) 400 mg PO BID [facility] Last Admin: 04/01/22 09:05 Dose: 400 mg Documented By: Admin: 03/31/22 21:23 Dose: 400 mg Documented By: Admin: 03/31/22 09:13 Dose: 400 mg Documented By: ANUP Metoprolol Tartrate (Metoprolol Tartrate 5 Mg/5 Ml Inj) 5 mg IV Q5M [facility] Stop: 03/28/22 17:41 Last Admin: 03/28/22 18:06 Dose: Not Given Documented By: Admin: 03/28/22 17:47 Dose: 5 mg Documented By: Admin: 03/28/22 17:39 Dose: 5 mg Documented By: CRYSTAL Metoprolol Tartrate (Metoprolol Ir 25 Mg Tablet) 25 mg PO BID [facility] Last Admin: 04/01/22 09:05 Dose: 25 mg Documented By: Admin: 03/31/22 21:23 Dose: 25 mg Documented By: Admin: 03/31/22 08:31 Dose: 25 mg Documented By: Admin: 03/30/22 20:41 Dose: 25 mg Documented By: Admin: 03/30/22 08:10 Dose: 25 mg Documented By: Admin: 03/29/22 21:21 Dose: 25 mg Documented By: Admin: 03/29/22 14:09 Dose: 25 mg Documented By: SHANNON Naloxone HCl (Naloxone 1 Mg/Ml Syringe) 1 mg NASAL NOW ONE Stop: 03/28/22 14:07 Last Admin: 03/28/22 15:01 Dose: 1 mg Documented By: CRYSTAL Naloxone HCl (Naloxone 0.4 Mg/Ml Vial) 0.1 mg IV Q2MIN PRN PRN Reason: Opiate Reversal Ondansetron HCl (Ondansetron 4 Mg/2 Ml Inj) 4 mg IV Q6HR PRN PRN Reason: Nausea And Vomiting Oxycodone HCl (Oxycodone Ir 5 Mg Tablet) 5 mg PO Q4HR PRN PRN Reason: Pain, Moderate (4-6) Last Admin: 03/30/22 05:27 Dose: 5 mg Documented By: Admin: 03/30/22 00:14 Dose: 5 mg Documented By: Admin: 03/29/22 19:48 Dose: 5 mg Documented By: Admin: 03/29/22 15:33 Dose: 5 mg Documented By: Admin: 03/29/22 11:46 Dose: 5 mg Documented By: SHANNON Oxycodone HCl (Oxycodone Ir 5 Mg Tablet) 10 mg PO Q4HR PRN PRN Reason: Pain, Moderate (4-6) Last Admin: 04/01/22 10:36 Dose: 10 mg Documented By: Admin: 04/01/22 06:32 Dose: 10 mg Documented By: Admin: 04/01/22 02:27 Dose: 10 mg Documented By: Admin: 03/31/22 22:28 Dose: 10 mg Documented By: Admin: 03/31/22 18:02 Dose: 10 mg Documented By: Admin: 03/31/22 14:04 Dose: 10 mg Documented By: Admin: 03/31/22 09:55 Dose: 10 mg Documented By: Admin: 03/31/22 05:50 Dose: 10 mg Documented By: Admin: 03/31/22 00:57 Dose: 10 mg Documented By: Admin: 03/30/22 20:41 Dose: 10 mg Documented By: Admin: 03/30/22 16:14 Dose: 10 mg Documented By: ANUP Potassium Chloride (Potassium Chloride 20 Meq/15 Ml Udc) 40 meq PO NOW ONE Stop: 03/29/22 12:02 Last Admin: 03/29/22 14:08 Dose: 40 meq Documented By: SHANNON Potassium Chloride (Potassium Chloride 20 Meq Tab) 20 meq PO NOW ONE Stop: 03/30/22 11:46 Last Admin: 03/30/22 11:55 Dose: 20 meq Documented By: ANUP Potassium Chloride (Potassium Chloride 20 Meq Tab) [facility] [place] Last Admin: 04/01/22 08:59 Dose: 20 meq Documented By: Admin: 03/31/22 17:08 Dose: 20 meq Documented By: Admin: 03/31/22 09:14 Dose: 20 meq Documented By: OW Sodium Chloride (Sodium Chloride 0.9% Flush) 10 ml IV BID LACY Last Admin: 04/01/22 09:06 Dose: 10 ml Documented By: Admin: 03/31/22 21:23 Dose: 10 ml Documented By: Admin: 03/31/22 08:31 Dose: 10 ml Documented By: Admin: 03/30/22 20:51 Dose: 10 ml Documented By: Admin: 03/30/22 08:10 Dose: 10 ml Documented By: Admin: 03/29/22 19:58 Dose: 10 ml Documented By: MP Sodium Chloride (Sodium Chloride 0.9% Flush) 10 ml IV PRN PRN PRN Reason: Flush Consultations Consultation #1: Dr. Bains, hospitalist. Reviewed patient's findings she is acidotic, lactate is normal, we reviewed labs available from would be which are believed to be from yesterday she was acidotic at that visit 2. Her CK is elevated today could possibly be some rhabdo but have not found a clear source. He asked for ABG to evaluate a little bit more, CT with contrast is her past history does show she is had psoas abscess and changes such as this to rule out other infectious causes that might necessitate transfer. Dr. Reza accepts preliminarily unless there are findings that would necessitate transfer. Time: 08:30 Vital Signs Vital signs: Vital Signs - 8 hr 03/28/22 13:55 03/28/22 13:54 03/28/22 13:55 Temperature 98.9 F Pulse Rate 128 H 122 H Respiratory Rate 15 Blood Pressure 194/85 H 194/88 H Pulse Oximetry 99 99 Oxygen Delivery Method Room Air 03/28/22 14:00 03/28/22 14:00 03/28/22 14:44 Temperature Pulse Rate 120 H 121 H Respiratory Rate Blood Pressure 181/81 H Pulse Oximetry 100 96 Oxygen Delivery Method 03/28/22 15:00 03/28/22 15:00 03/28/22 15:24 Temperature Pulse Rate 101 H Respiratory Rate Blood Pressure 182/96 H 201/102 H Pulse Oximetry 93 Oxygen Delivery Method 03/28/22 15:24 03/28/22 15:30 03/28/22 15:30 Temperature Pulse Rate 134 H 136 H Respiratory Rate Blood Pressure 186/105 H Pulse Oximetry 100 99 Oxygen Delivery Method 03/28/22 16:00 03/28/22 16:00 03/28/22 16:30 Temperature Pulse Rate 118 H Respiratory Rate Blood Pressure 182/92 H 191/84 H Pulse Oximetry 99 Oxygen Delivery Method 03/28/22 16:30 03/28/22 17:00 03/28/22 17:30 Temperature Pulse Rate 128 H 144 H 124 H Respiratory Rate 14 15 Blood Pressure Pulse Oximetry 100 99 100 Oxygen Delivery Method 03/28/22 17:39 03/28/22 17:39 03/28/22 17:40 Temperature Pulse Rate 122 H Respiratory Rate 13 Blood Pressure 167/88 H 175/82 H Pulse Oximetry 99 Oxygen Delivery Method 03/28/22 17:40 03/28/22 17:45 03/28/22 17:45 Temperature Pulse Rate 123 H 112 H Respiratory Rate 13 10 L Blood Pressure 175/94 H Pulse Oximetry 99 98 Oxygen Delivery Method 03/28/22 17:48 03/28/22 17:48 03/28/22 17:50 Temperature Pulse Rate 105 H Respiratory Rate 13 Blood Pressure 179/91 H 181/84 H Pulse Oximetry 99 Oxygen Delivery Method 03/28/22 17:50 03/28/22 17:55 03/28/22 17:55 Temperature Pulse Rate 92 H 88 Respiratory Rate 12 12 Blood Pressure 181/84 H Pulse Oximetry 99 98 Oxygen Delivery Method 03/28/22 18:04 03/28/22 18:05 03/28/22 18:05 Temperature Pulse Rate 89 89 Respiratory Rate 11 L Blood Pressure 179/92 H Pulse Oximetry 97 99 Oxygen Delivery Method 03/28/22 18:10 03/28/22 18:10 03/28/22 18:15 Temperature Pulse Rate 85 85 Respiratory Rate 10 L 9 L Blood Pressure 165/79 H Pulse Oximetry 98 98 Oxygen Delivery Method 03/28/22 18:15 03/28/22 18:20 03/28/22 18:20 Temperature Pulse Rate 85 Respiratory Rate 26 H Blood Pressure 167/78 H 171/79 H Pulse Oximetry 98 Oxygen Delivery Method 03/28/22 18:25 03/28/22 18:25 03/28/22 18:30 Temperature Pulse Rate 85 Respiratory Rate 22 Blood Pressure 157/81 H 159/73 H Pulse Oximetry 98 Oxygen Delivery Method 03/28/22 18:30 03/28/22 18:35 03/28/22 18:35 Temperature Pulse Rate 84 85 Respiratory Rate 21 24 Blood Pressure 162/78 H Pulse Oximetry 98 98 Oxygen Delivery Method 03/28/22 18:40 03/28/22 18:40 Temperature Pulse Rate 83 Respiratory Rate 16 Blood Pressure 145/71 H Pulse Oximetry 98 Oxygen Delivery Method <Delores Massey MD - Last Filed: 03/29/22 07:13> Orders Ordered: Discontinued Medications Acetaminophen (Acetaminophen 325 Mg Tablet) 650 mg PO Q6HR PRN PRN Reason: Fever Last Admin: 04/01/22 10:36 Dose: 650 mg Documented By: Admin: 04/01/22 02:27 Dose: 650 mg Documented By: Admin: 03/31/22 18:02 Dose: 650 mg Documented By: Admin: 03/31/22 09:13 Dose: 650 mg Documented By: Admin: 03/30/22 20:41 Dose: 650 mg Documented By: Admin: 03/30/22 11:55 Dose: 650 mg Documented By: Admin: 03/30/22 06:39 Dose: 650 mg Documented By: Admin: 03/30/22 01:03 Dose: 650 mg Documented By: Admin: 03/29/22 19:51 Dose: 650 mg Documented By: Admin: 03/29/22 11:46 Dose: 650 mg Documented By: SHANNON Enoxaparin Sodium (Enoxaparin 40 Mg/0.4 Ml Syringe) 40 mg SUBCUT DAILY [facility] Last Admin: 04/01/22 09:05 Dose: Not Given Documented By: Admin: 03/31/22 08:30 Dose: 40 mg Documented By: Admin: 03/30/22 08:10 Dose: 40 mg Documented By: Admin: 03/29/22 09:09 Dose: 40 mg Documented By: SHANNON Heparin Sodium (Porcine) (Heparin Flush (Cl/Picc/Mid-Line) 50 Unit/5 Ml Syringe) 50 unit IV PRN PRN PRN Reason: Flush Last Admin: 03/30/22 05:28 Dose: 50 unit Documented By: JYOTI Hydromorphone HCl (Hydromorphone 0.5 Mg Inj) 0.5 mg IV Q4H PRN PRN Reason: Breakthrough pain only (8-10) Sodium Chloride (Normal Saline 0.9%) 1,000 mls @ 1,000 mls/hr IV BOLUS ONE Stop: 03/28/22 15:04 Last Infusion: 03/28/22 17:10 Dose: 0 mls/hr Documented By: Admin: 03/28/22 15:01 Dose: 1,000 mls/hr Documented By: CRYSTAL Ceftriaxone Sodium 2,000 mg/ (Sodium Chloride) 100 mls @ 200 mls/hr IV NOW ONE Stop: 03/28/22 18:25 Last Infusion: 03/28/22 20:01 Dose: 0 mls/hr Documented By: Admin: 03/28/22 19:25 Dose: 200 mls/hr Documented By: NELI Sodium Chloride (Normal Saline 0.9%) 1,000 mls @ 150 mls/hr IV CONT LACY Last Infusion: 03/31/22 08:32 Dose: 0 mls/hr Documented By: Infusion: 03/31/22 06:39 Dose: 150 mls/hr Documented By: Admin: 03/31/22 06:39 Dose: 150 mls/hr Documented By: Infusion: 03/31/22 06:33 Dose: 150 mls/hr Documented By: Admin: 03/30/22 23:52 Dose: 150 mls/hr Documented By: Infusion: 03/30/22 22:56 Dose: 150 mls/hr Documented By: Admin: 03/30/22 16:15 Dose: 150 mls/hr Documented By: Infusion: 03/30/22 14:50 Dose: 150 mls/hr Documented By: Admin: 03/30/22 08:09 Dose: 150 mls/hr Documented By: Infusion: 03/30/22 06:29 Dose: 150 mls/hr Documented By: Admin: 03/29/22 23:48 Dose: 150 mls/hr Documented By: Infusion: 03/29/22 12:41 Dose: 150 mls/hr Documented By: Admin: 03/29/22 06:00 Dose: 150 mls/hr Documented By: Infusion: 03/29/22 04:40 Dose: 150 mls/hr Documented By: Admin: 03/28/22 21:59 Dose: 150 mls/hr Documented By: AKP Ceftriaxone Sodium 1,000 mg/ (Sodium Chloride) 100 mls @ 200 mls/hr IV Q24H LACY Stop: 04/02/22 18:29 Last Admin: 03/31/22 17:08 Dose: 200 mls/hr Documented By: Infusion: 03/30/22 18:31 Dose: 0 mls/hr Documented By: Admin: 03/30/22 18:01 Dose: 200 mls/hr Documented By: Infusion: 03/29/22 18:41 Dose: 0 mls/hr Documented By: Admin: 03/29/22 18:11 Dose: 200 mls/hr Documented By: SHANNON Metronidazole (Flagyl) 500 mg in 100 mls @ 100 mls/hr IV Q6H [facility] Last Infusion: 03/30/22 14:45 Dose: 0 mls/hr Documented By: Admin: 03/30/22 13:44 Dose: 100 mls/hr Documented By: Infusion: 03/30/22 09:10 Dose: 0 mls/hr Documented By: Admin: 03/30/22 08:10 Dose: 100 mls/hr Documented By: Infusion: 03/30/22 03:55 Dose: 0 mls/hr Documented By: Admin: 03/30/22 02:55 Dose: 100 mls/hr Documented By: Infusion: 03/29/22 22:21 Dose: 0 mls/hr Documented By: Admin: 03/29/22 21:21 Dose: 100 mls/hr Documented By: Infusion: 03/29/22 16:34 Dose: 0 mls/hr Documented By: Admin: 03/29/22 15:34 Dose: 100 mls/hr Documented By: Infusion: 03/29/22 11:42 Dose: 0 mls/hr Documented By: Admin: 03/29/22 09:08 Dose: 100 mls/hr Documented By: Infusion: 03/29/22 04:49 Dose: 100 mls/hr Documented By: Admin: 03/29/22 03:49 Dose: 100 mls/hr Documented By: Infusion: 03/28/22 23:13 Dose: 100 mls/hr Documented By: Admin: 03/28/22 22:13 Dose: 100 mls/hr Documented By: LOUISE POTASSIUM CHLORIDE IN WATER (Potassium Cl 10 Meq/100 Ml Shavon) 10 meq in 100 mls @ 100 mls/hr IV Q1H LACY Stop: 03/29/22 16:14 Last Infusion: 03/29/22 20:12 Dose: 0 mls/hr Documented By: Admin: 03/29/22 19:40 Dose: Not Given Documented By: Admin: 03/29/22 19:13 Dose: 100 mls/hr Documented By: Infusion: 03/29/22 17:52 Dose: 100 mls/hr Documented By: Admin: 03/29/22 16:52 Dose: 100 mls/hr Documented By: Infusion: 03/29/22 15:07 Dose: 100 mls/hr Documented By: Admin: 03/29/22 14:07 Dose: 100 mls/hr Documented By: SHANNON POTASSIUM CHLORIDE IN WATER (Potassium Cl 10 Meq/100 Ml Shavon) 10 meq in 100 mls @ 100 mls/hr IV Q1H LACY Stop: 03/29/22 20:29 Last Infusion: 03/29/22 21:25 Dose: 0 mls/hr Documented By: Admin: 03/29/22 20:08 Dose: 100 mls/hr Documented By: JYOTI Magnesium Chloride (Magnesium Chloride 64 Mg Tablet) 128 mg PO NOW ONE Stop: 03/29/22 16:16 Last Admin: 03/29/22 16:49 Dose: 128 mg Documented By: SHANNON Magnesium Chloride (Magnesium Chloride 64 Mg Tablet) 128 mg PO NOW ONE Stop: 03/30/22 11:46 Last Admin: 03/30/22 11:55 Dose: 128 mg Documented By: ANUP Magnesium Oxide (Magnesium Oxide 400 Mg Tablet) 400 mg PO BID [facility] Last Admin: 04/01/22 09:05 Dose: 400 mg Documented By: Admin: 03/31/22 21:23 Dose: 400 mg Documented By: Admin: 03/31/22 09:13 Dose: 400 mg Documented By: ANUP Metoprolol Tartrate (Metoprolol Tartrate 5 Mg/5 Ml Inj) 5 mg IV Q5M [facility] Stop: 03/28/22 17:41 Last Admin: 03/28/22 18:06 Dose: Not Given Documented By: Admin: 03/28/22 17:47 Dose: 5 mg Documented By: Admin: 03/28/22 17:39 Dose: 5 mg Documented By: CRYSTAL Metoprolol Tartrate (Metoprolol Ir 25 Mg Tablet) 25 mg PO BID LACY Last Admin: 04/01/22 09:05 Dose: 25 mg Documented By: Admin: 03/31/22 21:23 Dose: 25 mg Documented By: Admin: 03/31/22 08:31 Dose: 25 mg Documented By: Admin: 03/30/22 20:41 Dose: 25 mg Documented By: Admin: 03/30/22 08:10 Dose: 25 mg Documented By: Admin: 03/29/22 21:21 Dose: 25 mg Documented By: Admin: 03/29/22 14:09 Dose: 25 mg Documented By: SHANNON Naloxone HCl (Naloxone 1 Mg/Ml Syringe) 1 mg NASAL NOW ONE Stop: 03/28/22 14:07 Last Admin: 03/28/22 15:01 Dose: 1 mg Documented By: CRYSTAL Naloxone HCl (Naloxone 0.4 Mg/Ml Vial) 0.1 mg IV Q2MIN PRN PRN Reason: Opiate Reversal Ondansetron HCl (Ondansetron 4 Mg/2 Ml Inj) 4 mg IV Q6HR PRN PRN Reason: Nausea And Vomiting Oxycodone HCl (Oxycodone Ir 5 Mg Tablet) 5 mg PO Q4HR PRN PRN Reason: Pain, Moderate (4-6) Last Admin: 03/30/22 05:27 Dose: 5 mg Documented By: Admin: 03/30/22 00:14 Dose: 5 mg Documented By: Admin: 03/29/22 19:48 Dose: 5 mg Documented By: Admin: 03/29/22 15:33 Dose: 5 mg Documented By: Admin: 03/29/22 11:46 Dose: 5 mg Documented By: SHANNON Oxycodone HCl (Oxycodone Ir 5 Mg Tablet) 10 mg PO Q4HR PRN PRN Reason: Pain, Moderate (4-6) Last Admin: 04/01/22 10:36 Dose: 10 mg Documented By: Admin: 04/01/22 06:32 Dose: 10 mg Documented By: Admin: 04/01/22 02:27 Dose: 10 mg Documented By: Admin: 03/31/22 22:28 Dose: 10 mg Documented By: Admin: 03/31/22 18:02 Dose: 10 mg Documented By: Admin: 03/31/22 14:04 Dose: 10 mg Documented By: Admin: 03/31/22 09:55 Dose: 10 mg Documented By: Admin: 03/31/22 05:50 Dose: 10 mg Documented By: Admin: 03/31/22 00:57 Dose: 10 mg Documented By: Admin: 03/30/22 20:41 Dose: 10 mg Documented By: Admin: 03/30/22 16:14 Dose: 10 mg Documented By: ANUP Potassium Chloride (Potassium Chloride 20 Meq/15 Ml Udc) 40 meq PO NOW ONE Stop: 03/29/22 12:02 Last Admin: 03/29/22 14:08 Dose: 40 meq Documented By: SHANNON Potassium Chloride (Potassium Chloride 20 Meq Tab) 20 meq PO NOW ONE Stop: 03/30/22 11:46 Last Admin: 03/30/22 11:55 Dose: 20 meq Documented By: ANUP Potassium Chloride (Potassium Chloride 20 Meq Tab) 20 meq [facility] Last Admin: 04/01/22 08:59 Dose: 20 meq Documented By: Admin: 03/31/22 17:08 Dose: 20 meq Documented By: Admin: 03/31/22 09:14 Dose: 20 meq Documented By: ANUP Sodium Chloride (Sodium Chloride 0.9% Flush) 10 ml IV BID [facility] Last Admin: 04/01/22 09:06 Dose: 10 ml Documented By: Admin: 03/31/22 21:23 Dose: 10 ml Documented By: Admin: 03/31/22 08:31 Dose: 10 ml Documented By: Admin: 03/30/22 20:51 Dose: 10 ml Documented By: Admin: 03/30/22 08:10 Dose: 10 ml Documented By: Admin: 03/29/22 19:58 Dose: 10 ml Documented By: JYOTI Sodium Chloride (Sodium Chloride 0.9% Flush) 10 ml IV PRN PRN PRN Reason: Flush Vital Signs Vital signs: Vital Signs - 8 hr 03/28/22 13:55 03/28/22 13:54 03/28/22 13:55 Temperature 98.9 F Pulse Rate 128 H 122 H Respiratory Rate 15 Blood Pressure 194/85 H 194/88 H Pulse Oximetry 99 99 Oxygen Delivery Method Room Air 03/28/22 14:00 03/28/22 14:00 03/28/22 14:44 Temperature Pulse Rate 120 H 121 H Respiratory Rate Blood Pressure 181/81 H Pulse Oximetry 100 96 Oxygen Delivery Method 03/28/22 15:00 03/28/22 15:00 03/28/22 15:24 Temperature Pulse Rate 101 H Respiratory Rate Blood Pressure 182/96 H 201/102 H Pulse Oximetry 93 Oxygen Delivery Method 03/28/22 15:24 03/28/22 15:30 03/28/22 15:30 Temperature Pulse Rate 134 H 136 H Respiratory Rate Blood Pressure 186/105 H Pulse Oximetry 100 99 Oxygen Delivery Method 03/28/22 16:00 03/28/22 16:00 03/28/22 16:30 Temperature Pulse Rate 118 H Respiratory Rate Blood Pressure 182/92 H 191/84 H Pulse Oximetry 99 Oxygen Delivery Method 03/28/22 16:30 03/28/22 17:00 03/28/22 17:30 Temperature Pulse Rate 128 H 144 H 124 H Respiratory Rate 14 15 Blood Pressure Pulse Oximetry 100 99 100 Oxygen Delivery Method 03/28/22 17:39 03/28/22 17:39 03/28/22 17:40 Temperature Pulse Rate 122 H Respiratory Rate 13 Blood Pressure 167/88 H 175/82 H Pulse Oximetry 99 Oxygen Delivery Method 03/28/22 17:40 03/28/22 17:45 03/28/22 17:45 Temperature Pulse Rate 123 H 112 H Respiratory Rate 13 10 L Blood Pressure 175/94 H Pulse Oximetry 99 98 Oxygen Delivery Method 03/28/22 17:48 03/28/22 17:48 03/28/22 17:50 Temperature Pulse Rate 105 H Respiratory Rate 13 Blood Pressure 179/91 H 181/84 H Pulse Oximetry 99 Oxygen Delivery Method 03/28/22 17:50 03/28/22 17:55 03/28/22 17:55 Temperature Pulse Rate 92 H 88 Respiratory Rate 12 12 Blood Pressure 181/84 H Pulse Oximetry 99 98 Oxygen Delivery Method 03/28/22 18:04 03/28/22 18:05 03/28/22 18:05 Temperature Pulse Rate 89 89 Respiratory Rate 11 L Blood Pressure 179/92 H Pulse Oximetry 97 99 Oxygen Delivery Method 03/28/22 18:10 03/28/22 18:10 03/28/22 18:15 Temperature Pulse Rate 85 85 Respiratory Rate 10 L 9 L Blood Pressure 165/79 H Pulse Oximetry 98 98 Oxygen Delivery Method 03/28/22 18:15 03/28/22 18:20 03/28/22 18:20 Temperature Pulse Rate 85 Respiratory Rate 26 H Blood Pressure 167/78 H 171/79 H Pulse Oximetry 98 Oxygen Delivery Method 03/28/22 18:25 03/28/22 18:25 03/28/22 18:30 Temperature Pulse Rate 85 Respiratory Rate 22 Blood Pressure 157/81 H 159/73 H Pulse Oximetry 98 Oxygen Delivery Method 03/28/22 18:30 03/28/22 18:35 03/28/22 18:35 Temperature Pulse Rate 84 85 Respiratory Rate 21 24 Blood Pressure 162/78 H Pulse Oximetry 98 98 Oxygen Delivery Method 03/28/22 18:40 03/28/22 18:40 Temperature Pulse Rate 83 Respiratory Rate 16 Blood Pressure 145/71 H Pulse Oximetry 98 Oxygen Delivery Method MDM - Altered Mental Status <Cynthia Kennedy, DO - Last Filed: 04/02/22 04:55> Lab Data Result diagrams: 04/01/22 05:30 04/01/22 05:30 Labs: Lab Results 03/28/22 03/28/22 03/28/22 Range/Units 15:07 15:07 15:07 WBC 7.9 (4.5-11.0) X10^3/uL RBC 3.12 L (4.0-5.2) X10^6/uL Hgb 10.4 L (12.0-16.0) g/dL Hct 30.9 L (36-46) % MCV 99.2 (80-100) fL MCH 33.4 (26-34) PG MCHC 33.7 (30-36) % RDW 17.5 H (11.6-14.8) % Plt Count 492 H (150-400) X10^3/uL Neut % (Auto) 85.2 H (50-75) % Lymph % (Auto) 9.4 L (25-40) % [place] % (Auto) 4.9 (3-14) % Eos % (Auto) 0.2 L (2-4) % Baso % (Auto) 0.3 (0-2) % Neut # (Auto) 6700 (5897-6863) /uL Lymph # (Auto) 700 L (6302-3931) /uL [place] # (Auto) 400 (0-900) /uL Eos # (Auto) 0 (0-450) /uL Baso # (Auto) 0 (0-100) /uL PT 10.8 (10.1-12.7) SECONDS INR 0.9 (0.9-1.3) APTT 36 (26.4-36.2) SECONDS ABG pH (7.35-7.45) ABG pCO2 (35-45) mmHg ABG pO2 (80-100) mmHg ABG HCO3 (22-26) mmol/L ABG Total CO2 (21-31) mmol/L ABG O2 Saturation (95-100) % ABG Base Excess (-2-2) mmol/L FiO2 Sodium 139 (137-145) mmol/L Potassium 3.8 (3.4-5.1) mmol/L Chloride 110 H (98-107) mmol/L Carbon Dioxide 14 L (22-32) mmol/L BUN 25 H (7-17) mg/dL Creatinine 1.00 (0.52-1.04) mg/dL Estimated GFR > 60 (>60) mL/min BUN/Creatinine Ratio 25.0 H (6-22) Glucose 107 (80-110) mg/dL Serum Osmolality (280-301) mOsmol/kg Lactate (0.7-2.1) mmol/L Calcium 8.5 (8.4-10.2) mg/dL Total Bilirubin 0.4 (0.2-1.3) mg/dL AST 127 H (14-36) IU/L ALT 51 H (<35) IU/L Alkaline Phosphatase 138 H (38-126) U/L Ammonia (9-30) umol/L Total Creatine Kinase 3108 H (30-135) U/L CK-MB (CK-2) 9.88 H (<2.37) ng/mL CK-MB (CK-2) Rel Index 0.3 L (1.5-5.0) % Troponin I 0.092 H (0.01-0.034) ng/mL Total Protein 7.5 (6.3-8.2) g/dL Albumin 4.2 (3.5-5.0) g/dL Globulin 3.3 (1.7-4.1) g/dL Albumin/Globulin Ratio 1.3 (1.0-2.8) TSH (0.47-4.68) uIU/mL Prolactin 5.4 (3.0-18.6) ng/mL Urine Color Urine Appearance Urine pH (4.5-8.0) Ur Specific [place] (1.000-1.035) Urine Protein (Negative) Urine Glucose (UA) (Negative) g/dL Urine Ketones (NEGATIVE) Urine Occult Blood (Negative) Urine Nitrate (Negative) Urine Bilirubin (NEGATIVE) Urine Urobilinogen (0.2) E.U./dL Ur Leukocyte Esterase (NEGATIVE) Urine RBC (0-5/HPF) Urine WBC (0-5/HPF) Ur Squamous Epith Cells (0-5/HPF) Urine Bacteria (None) Ur Culture Indicated? Salicylates < 1.0 (<20) mg/dL U Opiates 300ng/mL cut (Negative) Ur Oxycodone Screen (Negative) Urine Methadone Screen (Negative) Acetaminophen < 10 (10-30) ug/mL Ur Barbiturates Screen (Negative) U Tricyclic Antidepress (Negative) Ur Phencyclidine Scrn (Negative) Ur Amphetamines Screen (Negative) U Methamphetamines Scrn (Negative) Ur MDMA Scrn (Ecstasy) (Negative) U Benzodiazepines Scrn (Negative) Urine Cocaine Screen (Negative) U Marijuana (THC) Screen (Negative) Ethyl Alcohol < 10 ( - 10) mg/dL SARS-CoV-2 (PCR) (Negative) 03/28/22 03/28/22 03/28/22 Range/Units 15:07 15:07 15:07 WBC (4.5-11.0) X10^3/uL RBC (4.0-5.2) X10^6/uL Hgb (12.0-16.0) g/dL Hct (36-46) % MCV (80-100) fL MCH (26-34) PG MCHC (30-36) % RDW (11.6-14.8) % Plt Count (150-400) X10^3/uL Neut % (Auto) (50-75) % Lymph % (Auto) (25-40) % [place] % (Auto) (3-14) % Eos % (Auto) (2-4) % Baso % (Auto) (0-2) % Neut # (Auto) (4992-6699) /uL Lymph # (Auto) (7620-2692) /uL [place] # (Auto) (0-900) /uL Eos # (Auto) (0-450) /uL Baso # (Auto) (0-100) /uL PT (10.1-12.7) SECONDS INR (0.9-1.3) APTT (26.4-36.2) SECONDS ABG pH (7.35-7.45) ABG pCO2 (35-45) mmHg ABG pO2 (80-100) mmHg ABG HCO3 (22-26) mmol/L ABG Total CO2 (21-31) mmol/L ABG O2 Saturation (95-100) % ABG Base Excess (-2-2) mmol/L FiO2 Sodium (137-145) mmol/L Potassium (3.4-5.1) mmol/L Chloride (98-107) mmol/L Carbon Dioxide (22-32) mmol/L BUN (7-17) mg/dL Creatinine (0.52-1.04) mg/dL Estimated GFR (>60) mL/min BUN/Creatinine Ratio (6-22) Glucose (80-110) mg/dL Serum Osmolality (280-301) mOsmol/kg Lactate 0.8 (0.7-2.1) mmol/L Calcium (8.4-10.2) mg/dL Total Bilirubin (0.2-1.3) mg/dL AST (14-36) IU/L ALT (<35) IU/L Alkaline Phosphatase (38-126) U/L Ammonia 11 (9-30) umol/L Total Creatine Kinase (30-135) U/L CK-MB (CK-2) (<2.37) ng/mL CK-MB (CK-2) Rel Index (1.5-5.0) % Troponin I (0.01-0.034) ng/mL Total Protein (6.3-8.2) g/dL Albumin (3.5-5.0) g/dL Globulin (1.7-4.1) g/dL Albumin/Globulin Ratio (1.0-2.8) TSH 0.461 L (0.47-4.68) uIU/mL Prolactin (3.0-18.6) ng/mL Urine Color Urine Appearance Urine pH (4.5-8.0) Ur Specific [place] (1.000-1.035) Urine Protein (Negative) Urine Glucose (UA) (Negative) g/dL Urine Ketones (NEGATIVE) Urine Occult Blood (Negative) Urine Nitrate (Negative) Urine Bilirubin (NEGATIVE) Urine Urobilinogen (0.2) E.U./dL Ur Leukocyte Esterase (NEGATIVE) Urine RBC (0-5/HPF) Urine WBC (0-5/HPF) Ur Squamous Epith Cells (0-5/HPF) Urine Bacteria (None) Ur Culture Indicated? Salicylates (<20) mg/dL U Opiates 300ng/mL cut (Negative) Ur Oxycodone Screen (Negative) Urine Methadone Screen (Negative) Acetaminophen (10-30) ug/mL Ur Barbiturates Screen (Negative) U Tricyclic Antidepress (Negative) Ur Phencyclidine Scrn (Negative) Ur Amphetamines Screen (Negative) U Methamphetamines Scrn (Negative) Ur MDMA Scrn (Ecstasy) (Negative) U Benzodiazepines Scrn (Negative) Urine Cocaine Screen (Negative) U Marijuana (THC) Screen (Negative) Ethyl Alcohol ( - 10) mg/dL SARS-CoV-2 (PCR) (Negative) 03/28/22 03/28/22 03/28/22 Range/Units 15:07 16:35 16:35 WBC (4.5-11.0) X10^3/uL RBC (4.0-5.2) X10^6/uL Hgb (12.0-16.0) g/dL Hct (36-46) % MCV (80-100) fL MCH (26-34) PG MCHC (30-36) % RDW (11.6-14.8) % Plt Count (150-400) X10^3/uL Neut % (Auto) (50-75) % Lymph % (Auto) (25-40) % [place] % (Auto) (3-14) % Eos % (Auto) (2-4) % Baso % (Auto) (0-2) % Neut # (Auto) (4757-6186) /uL Lymph # (Auto) (9900-7911) /uL [place] # (Auto) (0-900) /uL Eos # (Auto) (0-450) /uL Baso # (Auto) (0-100) /uL PT (10.1-12.7) SECONDS INR (0.9-1.3) APTT (26.4-36.2) SECONDS ABG pH (7.35-7.45) ABG pCO2 (35-45) mmHg ABG pO2 (80-100) mmHg ABG HCO3 (22-26) mmol/L ABG Total CO2 (21-31) mmol/L ABG O2 Saturation (95-100) % ABG Base Excess (-2-2) mmol/L FiO2 Sodium (137-145) mmol/L Potassium (3.4-5.1) mmol/L Chloride (98-107) mmol/L Carbon Dioxide (22-32) mmol/L BUN (7-17) mg/dL Creatinine (0.52-1.04) mg/dL Estimated GFR (>60) mL/min BUN/Creatinine Ratio (6-22) Glucose (80-110) mg/dL Serum Osmolality 299 (280-301) mOsmol/kg Lactate (0.7-2.1) mmol/L Calcium (8.4-10.2) mg/dL Total Bilirubin (0.2-1.3) mg/dL AST (14-36) IU/L ALT (<35) IU/L Alkaline Phosphatase (38-126) U/L Ammonia (9-30) umol/L Total Creatine Kinase (30-135) U/L CK-MB (CK-2) (<2.37) ng/mL CK-MB (CK-2) Rel Index (1.5-5.0) % Troponin I (0.01-0.034) ng/mL Total Protein (6.3-8.2) g/dL Albumin (3.5-5.0) g/dL Globulin (1.7-4.1) g/dL Albumin/Globulin Ratio (1.0-2.8) TSH (0.47-4.68) uIU/mL Prolactin (3.0-18.6) ng/mL Urine Color Yellow Urine Appearance Clear Urine pH 6.0 (4.5-8.0) Ur Specific [place] 1.010 (1.000-1.035) Urine Protein 1+ H (Negative) Urine Glucose (UA) Negative (Negative) g/dL Urine Ketones 1+ H (NEGATIVE) Urine Occult Blood 2+ H (Negative) Urine Nitrate Negative (Negative) Urine Bilirubin Negative (NEGATIVE) Urine Urobilinogen 0.2 (0.2) E.U./dL Ur Leukocyte Esterase 1+ H (NEGATIVE) Urine RBC 0-1/hpf (0-5/HPF) Urine WBC 10-30/hpf H (0-5/HPF) Ur Squamous Epith Cells None seen (0-5/HPF) Urine Bacteria Occasional (0-1) (None) Ur Culture Indicated? Culture not indicate Salicylates (<20) mg/dL U Opiates 300ng/mL cut Negative (Negative) Ur Oxycodone Screen Positive H (Negative) Urine Methadone Screen Negative (Negative) Acetaminophen (10-30) ug/mL Ur Barbiturates Screen Negative (Negative) U Tricyclic Antidepress Negative (Negative) Ur Phencyclidine Scrn Negative (Negative) Ur Amphetamines Screen Negative (Negative) U Methamphetamines Scrn Negative (Negative) Ur MDMA Scrn (Ecstasy) Negative (Negative) U Benzodiazepines Scrn Negative (Negative) Urine Cocaine Screen Negative (Negative) U Marijuana (THC) Screen Negative (Negative) Ethyl Alcohol ( - 10) mg/dL SARS-CoV-2 (PCR) (Negative) 03/28/22 03/28/22 03/28/22 Range/Units 16:51 17:39 19:51 WBC (4.5-11.0) X10^3/uL RBC (4.0-5.2) X10^6/uL Hgb (12.0-16.0) g/dL Hct (36-46) % MCV (80-100) fL MCH (26-34) PG MCHC (30-36) % RDW (11.6-14.8) % Plt Count (150-400) X10^3/uL Neut % (Auto) (50-75) % Lymph % (Auto) (25-40) % [place] % (Auto) (3-14) % Eos % (Auto) (2-4) % Baso % (Auto) (0-2) % Neut # (Auto) (6316-2649) /uL Lymph # (Auto) (4769-6628) /uL [place] # (Auto) (0-900) /uL Eos # (Auto) (0-450) /uL Baso # (Auto) (0-100) /uL PT (10.1-12.7) SECONDS INR (0.9-1.3) APTT (26.4-36.2) SECONDS ABG pH 7.29 L* (7.35-7.45) ABG pCO2 27.2 L (35-45) mmHg ABG pO2 76 L (80-100) mmHg ABG HCO3 13 L (22-26) mmol/L ABG Total CO2 14 L (21-31) mmol/L ABG O2 Saturation 94 L (95-100) % ABG Base Excess -13.0 L (-2-2) mmol/L FiO2 21 Sodium (137-145) mmol/L Potassium (3.4-5.1) mmol/L Chloride (98-107) mmol/L Carbon Dioxide (22-32) mmol/L BUN (7-17) mg/dL Creatinine (0.52-1.04) mg/dL Estimated GFR (>60) mL/min BUN/Creatinine Ratio (6-22) Glucose (80-110) mg/dL Serum Osmolality (280-301) mOsmol/kg Lactate (0.7-2.1) mmol/L Calcium (8.4-10.2) mg/dL Total Bilirubin (0.2-1.3) mg/dL AST (14-36) IU/L ALT (<35) IU/L Alkaline Phosphatase (38-126) U/L Ammonia (9-30) umol/L Total Creatine Kinase (30-135) U/L CK-MB (CK-2) (<2.37) ng/mL CK-MB (CK-2) Rel Index (1.5-5.0) % Troponin I 0.097 H (0.01-0.034) ng/mL Total Protein (6.3-8.2) g/dL Albumin (3.5-5.0) g/dL Globulin (1.7-4.1) g/dL Albumin/Globulin Ratio (1.0-2.8) TSH (0.47-4.68) uIU/mL Prolactin (3.0-18.6) ng/mL Urine Color Urine Appearance Urine pH (4.5-8.0) Ur Specific [place] (1.000-1.035) Urine Protein (Negative) Urine Glucose (UA) (Negative) g/dL Urine Ketones (NEGATIVE) Urine Occult Blood (Negative) Urine Nitrate (Negative) Urine Bilirubin (NEGATIVE) Urine Urobilinogen (0.2) E.U./dL Ur Leukocyte Esterase (NEGATIVE) Urine RBC (0-5/HPF) Urine WBC (0-5/HPF) Ur Squamous Epith Cells (0-5/HPF) Urine Bacteria (None) Ur Culture Indicated? Salicylates (<20) mg/dL U Opiates 300ng/mL cut (Negative) Ur Oxycodone Screen (Negative) Urine Methadone Screen (Negative) Acetaminophen (10-30) ug/mL Ur Barbiturates Screen (Negative) U Tricyclic Antidepress (Negative) Ur Phencyclidine Scrn (Negative) Ur Amphetamines Screen (Negative) U Methamphetamines Scrn (Negative) Ur MDMA Scrn (Ecstasy) (Negative) U Benzodiazepines Scrn (Negative) Urine Cocaine Screen (Negative) U Marijuana (THC) Screen (Negative) Ethyl Alcohol ( - 10) mg/dL SARS-CoV-2 (PCR) Negative (Negative) Point of Care Testing Glucose POC [address] scan - head: Radiologist's Impression: [address] [address] [address] Scan Report Signed Patient: Emani Leiva MR#: [id number] : 1950 Acct:[id number] Age/Sex: 71 / F Date of Service: 03/28/22 Loc: ED Accession Number: [id number] ?? Procedure: CT head/brain wo con Ordering Provider: Cynthia Kennedy D.O. PROCEDURE:? CT HEAD/BRAIN WO CON ? INDICATIONS:? altered mental status ? TECHNIQUE:? Noncontrast 4.5 mm thick angled axial sections acquired from the foramen magnum to the vertex, with coronal and sagittal reformats.? For radiation dose reduction, the following was used:? automated exposure control, adjustment of mA and/or kV according to patient size.? ? COMPARISON:? [facility], CT, CT HEAD/BRAIN WO CON, 02/09/2022, 18:17. ? FINDINGS:? Image quality:? Excellent.? ? CSF spaces:? Basal cisterns are patent.? No extra-axial fluid collections.? Vent ricles are normal in size and shape.? ? Brain:? No midline shift.? No intracranial masses or hemorrhage.? Bran-white matter interface is normal.? Mild volume loss and periventricular white matter hypo attenuation likely chronic small vessel disease.. ? Skull and face:? Calvarium and visualized facial bones are intact, without suspicious lesions.? ? Sinuses:? Visualized sinuses and mastoids are clear.? ? IMPRESSION:? No acute intracranial abnormality.? ? ? Dictated by: Tristen Katz M.D. on 03/28/2022 at 15:31 ? ? Approved by: Tristen Katz M.D. on 03/28/2022 at 15:34?? Chest x-ray: Radiologist's Impression: Close Head CT (Signed) Tristen Katz - 03/28/22 Chest X-Ray (Signed) Call,Heath - 03/28/[address] (Signed) Darwin Long - 02/09/[address] (Signed) Myers,Ceasar - 02/09/[address] (Signed) Ceasar Myers - 02/09/[address] (Signed) Myers,Ceasar - 02/09/[address] (Signed) Tawny Weaver - 02/09/22 Hip X-Ray (Signed) OwenTawny - 02/09/22 Ankle X-Ray (Signed) Tawny Weaver - 02/09/22 Telemetry Strips 04/15/21 Chest X-Ray (Signed) Idalia Guerrero - 04/14/21 Humerus X-Ray (Signed) Idalia Guerrero - 04/05/21 Telemetry Strips 03/30/[address] (Signed) Nikia Nolasco - 03/30/21 Chest X-Ray (Signed) Heath Scales - 03/30/[address] (Signed) Nikia Nolasco - 03/30/21 EKG Rpt. 01/30/21 EKG Rpt. 11/13/20 Lumbar Spine MRI (Signed) Nikia Nolasco - 11/12/20 Abdomen/Pelvis CT (Signed) Nikia Nolasco - 11/12/20 EKG Rpt. 11/12/20 Lumbar Spine MRI (Signed) Jason Castle - 11/04/20 Thoracic Spine MRI (Signed) Jason Castle - 11/04/20 CT Scanning Biopsy/Drainage (Signed) Ori Richter - 11/01/20 Chest X-Ray (Signed) AnshulDavid - 10/30/[address] (Signed) AnshulCassandra - 10/30/20 Abdomen/Pelvis CT (Signed) John Landersderic - 10/30/20 Telemetry Strips 10/29/20 Chest X-Ray (Signed) AnshulDavid - 10/29/20 Abdomen Ultrasound (Signed) AnshulDavid - 10/29/20 Lumbar Spine MRI (Signed) AnshulDavid - 10/07/[address] (Signed) Darwin Long - 10/07/20 Lumbar Spine MRI (Signed) Idalia Guerrero - 09/15/20 Telemetry Strips 05/20/20 Ankle X-Ray (Signed) Nikia Nolasco - 05/20/20 Thoracic Spine MRI (Signed) Idalia Guerrero - 04/22/20 Lumbar Spine MRI (Signed) Idalia Guerrero - 04/22/20 Foot X-Ray (Signed) Jon Braxton - 11/10/19 Ankle X-Ray (Signed) Jon Braxton - 11/10/[address] (Signed) Ricardo Lanza - 10/05/19 Lumbar Spine X-Ray (Signed) Anthony Jordan - 07/28/19 Shoulder MRI (Signed) Anthony Jordan - 07/13/[address] (Signed) Kenneth Muñiz - 05/23/[address] (Signed) Kenneth Muñiz - 05/23/19 Lumbar Spine X-Ray (Signed) Kenneth Muñiz - 05/23/19 Humerus X-Ray (Signed) Kenneth Muñiz - 05/23/19 Lumbar Spine X-Ray (Signed) Nikia Nolasco - 04/28/19 Lumbar Spine MRI (Signed) Jl Downs - 03/06/19 Abdomen/Pelvis CT (Signed) Tawny Weaver - 11/07/[address] (Signed) Tawny Weaver - 11/07/18 Chest X-Ray (Signed) Nikia Nolasco - 11/07/18 Chest X-Ray (Signed) Tawny Weaver - 09/19/18 Telemetry Strips 09/18/[address] (Signed) Suellen Herrmann - 09/18/18 Chest X-Ray (Signed) Darwin Long - 09/18/18 Chest X-Ray (Signed) Suellen Herrmann - 09/18/18 Abdomen/Pelvis CT (Signed) AriPetarmarissa - 08/17/18 Bone Scan Nuclear Medicine (Signed) Ori Richter - 07/30/18 Telemetry Strips 07/29/[address] (Signed) Ricardo Lanza - 07/29/18 Launch?Image [address] [address] XRay Report Signed Patient: Emani Leiva MR#: [id number] : 1950 Acct:[id number] Age/Sex: 71 / F Date of Service: 03/28/22 Loc: ED Accession Number: [id number] ?? Procedure: XR chest 1V Ordering Provider: Cynthia Kennedy D.O. PROCEDURE:? XR CHEST 1V ? INDICATIONS:? altered mental status ? TECHNIQUE:? One view of the chest was acquired.? ? COMPARISON:? [facility], CT, CT THORACIC SPINE WO CON, 02/09/2022, 18:17.? [facility], CR, XR CHEST 1V, 04/14/2021, 17:24.? [facility], CR, XR CHEST 1V, 03/30/2021, 8:18. ? FINDINGS:? ? Surgical changes and devices:? Cholecystectomy clips. ? Lungs and pleura:? Lungs are clear.? No pleural effusions or pneumothorax.? ? Mediastinum:? Mediastinal contours appear unchanged.? Coronary artery calcifications.? Heart size is normal.? ? Bones and chest wall:? No suspicious bony lesions.? Prior left 6th rib fracture.? Prior vertebroplasty.? Overlying soft tissues appear unremarkable.? ? IMPRESSION:? No acute cardiopulmonary abnormality. ? ? ? Dictated by: Heath Scales M.D. on 03/28/2022 at 14:34 ? ? Approved by: Heath Scales M.D. on 03/28/2022 at 14:36?? ECG Data Attestation: I personally reviewed and interpreted this ECG as follows: Interpretation: Sinus tachycardia premature atrial complexes rate of 122 [place] 150 QRS is 76 QTC [address] elevation noted. Patient has prior EKG from 01/30/[address] changes appreciated. Sinus tachycardia rate of 118 [place] 164 QRS is 70 [address]TC [address] No acute ST elevation/depression noted. PACs. Patient's tele evaluated she is intermittent changes in her rate that do not fit with a sinus tachycardia completely these may be PACs she was given a dose of metoprolol and rate slows and does appear to be sinus. MDM Narrative Medical decision making narrative: This is a 71-year-old female brought for altered mental status via EMS. Patient has been seen just today and was discharged from [facility] emergency department after boarding overnight for potential metabolic cause of her altered status which according to the records her mentation seemed to be clearing and has reoccurred after discharge. Patient has methocarbamol and oxycodone on her medication list she was given Narcan although she is not particularly somnolent which did not change or improve her mentation. Her workup so far has not shown a clear cause her is UTI but does not seem to be the exact cause of her symptoms she does appear to be acidotic based on her bicarb on labs but lactate was normal. She is been persistently tachycardic which is minimally responsive to fluids she did receive metoprolol which showed a sinus rhythm and it was quite responsive although she had been intermittently tachycardic ranging from 160s to 120s in teens. Patient to imaging did not show a clear cause. No other electrolyte abnormalities, infection or other source was found discussed with hospitalist who asked for ABG and CT of chest abdomen pelvis as patient has had so was abscess infections in the past and could potentially be a source. Patient was while this was pending. <Delores Massey MD - Last Filed: 03/29/22 07:13> Lab Data Labs: Lab Results 03/28/22 03/28/22 03/28/22 Range/Units 15:07 15:07 15:07 WBC 7.9 (4.5-11.0) X10^3/uL RBC 3.12 L (4.0-5.2) X10^6/uL Hgb 10.4 L (12.0-16.0) g/dL Hct 30.9 L (36-46) % MCV 99.2 (80-100) fL MCH 33.4 (26-34) PG MCHC 33.7 (30-36) % RDW 17.5 H (11.6-14.8) % Plt Count 492 H (150-400) X10^3/uL Neut % (Auto) 85.2 H (50-75) % Lymph % (Auto) 9.4 L (25-40) % [place] % (Auto) 4.9 (3-14) % Eos % (Auto) 0.2 L (2-4) % Baso % (Auto) 0.3 (0-2) % Neut # (Auto) 6700 (7809-7786) /uL Lymph # (Auto) 700 L (3176-6934) /uL [place] # (Auto) 400 (0-900) /uL Eos # (Auto) 0 (0-450) /uL Baso # (Auto) 0 (0-100) /uL PT 10.8 (10.1-12.7) SECONDS INR 0.9 (0.9-1.3) APTT 36 (26.4-36.2) SECONDS ABG pH (7.35-7.45) ABG pCO2 (35-45) mmHg ABG pO2 (80-100) mmHg ABG HCO3 (22-26) mmol/L ABG Total CO2 (21-31) mmol/L ABG O2 Saturation (95-100) % ABG Base Excess (-2-2) mmol/L FiO2 Sodium 139 (137-145) mmol/L Potassium 3.8 (3.4-5.1) mmol/L Chloride 110 H (98-107) mmol/L Carbon Dioxide 14 L (22-32) mmol/L BUN 25 H (7-17) mg/dL Creatinine 1.00 (0.52-1.04) mg/dL Estimated GFR > 60 (>60) mL/min BUN/Creatinine Ratio 25.0 H (6-22) Glucose 107 (80-110) mg/dL Serum Osmolality (280-301) mOsmol/kg Lactate (0.7-2.1) mmol/L Calcium 8.5 (8.4-10.2) mg/dL Total Bilirubin 0.4 (0.2-1.3) mg/dL AST 127 H (14-36) IU/L ALT 51 H (<35) IU/L Alkaline Phosphatase 138 H (38-126) U/L Ammonia (9-30) umol/L Total Creatine Kinase 3108 H (30-135) U/L CK-MB (CK-2) 9.88 H (<2.37) ng/mL CK-MB (CK-2) Rel Index 0.3 L (1.5-5.0) % Troponin I 0.092 H (0.01-0.034) ng/mL Total Protein 7.5 (6.3-8.2) g/dL Albumin 4.2 (3.5-5.0) g/dL Globulin 3.3 (1.7-4.1) g/dL Albumin/Globulin Ratio 1.3 (1.0-2.8) TSH (0.47-4.68) uIU/mL Prolactin 5.4 (3.0-18.6) ng/mL Urine Color Urine Appearance Urine pH (4.5-8.0) Ur Specific [place] (1.000-1.035) Urine Protein (Negative) Urine Glucose (UA) (Negative) g/dL Urine Ketones (NEGATIVE) Urine Occult Blood (Negative) Urine Nitrate (Negative) Urine Bilirubin (NEGATIVE) Urine Urobilinogen (0.2) E.U./dL Ur Leukocyte Esterase (NEGATIVE) Urine RBC (0-5/HPF) Urine WBC (0-5/HPF) Ur Squamous Epith Cells (0-5/HPF) Urine Bacteria (None) Ur Culture Indicated? Salicylates < 1.0 (<20) mg/dL U Opiates 300ng/mL cut (Negative) Ur Oxycodone Screen (Negative) Urine Methadone Screen (Negative) Acetaminophen < 10 (10-30) ug/mL Ur Barbiturates Screen (Negative) U Tricyclic Antidepress (Negative) Ur Phencyclidine Scrn (Negative) Ur Amphetamines Screen (Negative) U Methamphetamines Scrn (Negative) Ur MDMA Scrn (Ecstasy) (Negative) U Benzodiazepines Scrn (Negative) Urine Cocaine Screen (Negative) U Marijuana (THC) Screen (Negative) Ethyl Alcohol < 10 ( - 10) mg/dL SARS-CoV-2 (PCR) (Negative) 03/28/22 03/28/22 03/28/22 Range/Units 15:07 15:07 15:07 WBC (4.5-11.0) X10^3/uL RBC (4.0-5.2) X10^6/uL Hgb (12.0-16.0) g/dL Hct (36-46) % MCV (80-100) fL MCH (26-34) PG MCHC (30-36) % RDW (11.6-14.8) % Plt Count (150-400) X10^3/uL Neut % (Auto) (50-75) % Lymph % (Auto) (25-40) % [place] % (Auto) (3-14) % Eos % (Auto) (2-4) % Baso % (Auto) (0-2) % Neut # (Auto) (3447-6994) /uL Lymph # (Auto) (1819-3308) /uL [place] # (Auto) (0-900) /uL Eos # (Auto) (0-450) /uL Baso # (Auto) (0-100) /uL PT (10.1-12.7) SECONDS INR (0.9-1.3) APTT (26.4-36.2) SECONDS ABG pH (7.35-7.45) ABG pCO2 (35-45) mmHg ABG pO2 (80-100) mmHg ABG HCO3 (22-26) mmol/L ABG Total CO2 (21-31) mmol/L ABG O2 Saturation (95-100) % ABG Base Excess (-2-2) mmol/L FiO2 Sodium (137-145) mmol/L Potassium (3.4-5.1) mmol/L Chloride (98-107) mmol/L Carbon Dioxide (22-32) mmol/L BUN (7-17) mg/dL Creatinine (0.52-1.04) mg/dL Estimated GFR (>60) mL/min BUN/Creatinine Ratio (6-22) Glucose (80-110) mg/dL Serum Osmolality (280-301) mOsmol/kg Lactate 0.8 (0.7-2.1) mmol/L Calcium (8.4-10.2) mg/dL Total Bilirubin (0.2-1.3) mg/dL AST (14-36) IU/L ALT (<35) IU/L Alkaline Phosphatase (38-126) U/L Ammonia 11 (9-30) umol/L Total Creatine Kinase (30-135) U/L CK-MB (CK-2) (<2.37) ng/mL CK-MB (CK-2) Rel Index (1.5-5.0) % Troponin I (0.01-0.034) ng/mL Total Protein (6.3-8.2) g/dL Albumin (3.5-5.0) g/dL Globulin (1.7-4.1) g/dL Albumin/Globulin Ratio (1.0-2.8) TSH 0.461 L (0.47-4.68) uIU/mL Prolactin (3.0-18.6) ng/mL Urine Color Urine Appearance Urine pH (4.5-8.0) Ur Specific [place] (1.000-1.035) Urine Protein (Negative) Urine Glucose (UA) (Negative) g/dL Urine Ketones (NEGATIVE) Urine Occult Blood (Negative) Urine Nitrate (Negative) Urine Bilirubin (NEGATIVE) Urine Urobilinogen (0.2) E.U./dL Ur Leukocyte Esterase (NEGATIVE) Urine RBC (0-5/HPF) Urine WBC (0-5/HPF) Ur Squamous Epith Cells (0-5/HPF) Urine Bacteria (None) Ur Culture Indicated? Salicylates (<20) mg/dL U Opiates 300ng/mL cut (Negative) Ur Oxycodone Screen (Negative) Urine Methadone Screen (Negative) Acetaminophen (10-30) ug/mL Ur Barbiturates Screen (Negative) U Tricyclic Antidepress (Negative) Ur Phencyclidine Scrn (Negative) Ur Amphetamines Screen (Negative) U Methamphetamines Scrn (Negative) Ur MDMA Scrn (Ecstasy) (Negative) U Benzodiazepines Scrn (Negative) Urine Cocaine Screen (Negative) U Marijuana (THC) Screen (Negative) Ethyl Alcohol ( - 10) mg/dL SARS-CoV-2 (PCR) (Negative) 03/28/22 03/28/22 03/28/22 Range/Units 15:07 16:35 16:35 WBC (4.5-11.0) X10^3/uL RBC (4.0-5.2) X10^6/uL Hgb (12.0-16.0) g/dL Hct (36-46) % MCV (80-100) fL MCH (26-34) PG MCHC (30-36) % RDW (11.6-14.8) % Plt Count (150-400) X10^3/uL Neut % (Auto) (50-75) % Lymph % (Auto) (25-40) % [place] % (Auto) (3-14) % Eos % (Auto) (2-4) % Baso % (Auto) (0-2) % Neut # (Auto) (8893-1783) /uL Lymph # (Auto) (4120-5534) /uL [place] # (Auto) (0-900) /uL Eos # (Auto) (0-450) /uL Baso # (Auto) (0-100) /uL PT (10.1-12.7) SECONDS INR (0.9-1.3) APTT (26.4-36.2) SECONDS ABG pH (7.35-7.45) ABG pCO2 (35-45) mmHg ABG pO2 (80-100) mmHg ABG HCO3 (22-26) mmol/L ABG Total CO2 (21-31) mmol/L ABG O2 Saturation (95-100) % ABG Base Excess (-2-2) mmol/L FiO2 Sodium (137-145) mmol/L Potassium (3.4-5.1) mmol/L Chloride (98-107) mmol/L Carbon Dioxide (22-32) mmol/L BUN (7-17) mg/dL Creatinine (0.52-1.04) mg/dL Estimated GFR (>60) mL/min BUN/Creatinine Ratio (6-22) Glucose (80-110) mg/dL Serum Osmolality 299 (280-301) mOsmol/kg Lactate (0.7-2.1) mmol/L Calcium (8.4-10.2) mg/dL Total Bilirubin (0.2-1.3) mg/dL AST (14-36) IU/L ALT (<35) IU/L Alkaline Phosphatase (38-126) U/L Ammonia (9-30) umol/L Total Creatine Kinase (30-135) U/L CK-MB (CK-2) (<2.37) ng/mL CK-MB (CK-2) Rel Index (1.5-5.0) % Troponin I (0.01-0.034) ng/mL Total Protein (6.3-8.2) g/dL Albumin (3.5-5.0) g/dL Globulin (1.7-4.1) g/dL Albumin/Globulin Ratio (1.0-2.8) TSH (0.47-4.68) uIU/mL Prolactin (3.0-18.6) ng/mL Urine Color Yellow Urine Appearance Clear Urine pH 6.0 (4.5-8.0) Ur Specific [place] 1.010 (1.000-1.035) Urine Protein 1+ H (Negative) Urine Glucose (UA) Negative (Negative) g/dL Urine Ketones 1+ H (NEGATIVE) Urine Occult Blood 2+ H (Negative) Urine Nitrate Negative (Negative) Urine Bilirubin Negative (NEGATIVE) Urine Urobilinogen 0.2 (0.2) E.U./dL Ur Leukocyte Esterase 1+ H (NEGATIVE) Urine RBC 0-1/hpf (0-5/HPF) Urine WBC 10-30/hpf H (0-5/HPF) Ur Squamous Epith Cells None seen (0-5/HPF) Urine Bacteria Occasional (0-1) (None) Ur Culture Indicated? Culture not indicate Salicylates (<20) mg/dL U Opiates 300ng/mL cut Negative (Negative) Ur Oxycodone Screen Positive H (Negative) Urine Methadone Screen Negative (Negative) Acetaminophen (10-30) ug/mL Ur Barbiturates Screen Negative (Negative) U Tricyclic Antidepress Negative (Negative) Ur Phencyclidine Scrn Negative (Negative) Ur Amphetamines Screen Negative (Negative) U Methamphetamines Scrn Negative (Negative) Ur MDMA Scrn (Ecstasy) Negative (Negative) U Benzodiazepines Scrn Negative (Negative) Urine Cocaine Screen Negative (Negative) U Marijuana (THC) Screen Negative (Negative) Ethyl Alcohol ( - 10) mg/dL SARS-CoV-2 (PCR) (Negative) 03/28/22 03/28/22 03/28/22 Range/Units 16:51 17:39 19:51 WBC (4.5-11.0) X10^3/uL RBC (4.0-5.2) X10^6/uL Hgb (12.0-16.0) g/dL Hct (36-46) % MCV (80-100) fL MCH (26-34) PG MCHC (30-36) % RDW (11.6-14.8) % Plt Count (150-400) X10^3/uL Neut % (Auto) (50-75) % Lymph % (Auto) (25-40) % [place] % (Auto) (3-14) % Eos % (Auto) (2-4) % Baso % (Auto) (0-2) % Neut # (Auto) (4060-5325) /uL Lymph # (Auto) (0851-4476) /uL [place] # (Auto) (0-900) /uL Eos # (Auto) (0-450) /uL Baso # (Auto) (0-100) /uL PT (10.1-12.7) SECONDS INR (0.9-1.3) APTT (26.4-36.2) SECONDS ABG pH 7.29 L* (7.35-7.45) ABG pCO2 27.2 L (35-45) mmHg ABG pO2 76 L (80-100) mmHg ABG HCO3 13 L (22-26) mmol/L ABG Total CO2 14 L (21-31) mmol/L ABG O2 Saturation 94 L (95-100) % ABG Base Excess -13.0 L (-2-2) mmol/L FiO2 21 Sodium (137-145) mmol/L Potassium (3.4-5.1) mmol/L Chloride (98-107) mmol/L Carbon Dioxide (22-32) mmol/L BUN (7-17) mg/dL Creatinine (0.52-1.04) mg/dL Estimated GFR (>60) mL/min BUN/Creatinine Ratio (6-22) Glucose (80-110) mg/dL Serum Osmolality (280-301) mOsmol/kg Lactate (0.7-2.1) mmol/L Calcium (8.4-10.2) mg/dL Total Bilirubin (0.2-1.3) mg/dL AST (14-36) IU/L ALT (<35) IU/L Alkaline Phosphatase (38-126) U/L Ammonia (9-30) umol/L Total Creatine Kinase (30-135) U/L CK-MB (CK-2) (<2.37) ng/mL CK-MB (CK-2) Rel Index (1.5-5.0) % Troponin I 0.097 H (0.01-0.034) ng/mL Total Protein (6.3-8.2) g/dL Albumin (3.5-5.0) g/dL Globulin (1.7-4.1) g/dL Albumin/Globulin Ratio (1.0-2.8) TSH (0.47-4.68) uIU/mL Prolactin (3.0-18.6) ng/mL Urine Color Urine Appearance Urine pH (4.5-8.0) Ur Specific [place] (1.000-1.035) Urine Protein (Negative) Urine Glucose (UA) (Negative) g/dL Urine Ketones (NEGATIVE) Urine Occult Blood (Negative) Urine Nitrate (Negative) Urine Bilirubin (NEGATIVE) Urine Urobilinogen (0.2) E.U./dL Ur Leukocyte Esterase (NEGATIVE) Urine RBC (0-5/HPF) Urine WBC (0-5/HPF) Ur Squamous Epith Cells (0-5/HPF) Urine Bacteria (None) Ur Culture Indicated? Salicylates (<20) mg/dL U Opiates 300ng/mL cut (Negative) Ur Oxycodone Screen (Negative) Urine Methadone Screen (Negative) Acetaminophen (10-30) ug/mL Ur Barbiturates Screen (Negative) U Tricyclic Antidepress (Negative) Ur Phencyclidine Scrn (Negative) Ur Amphetamines Screen (Negative) U Methamphetamines Scrn (Negative) Ur MDMA Scrn (Ecstasy) (Negative) U Benzodiazepines Scrn (Negative) Urine Cocaine Screen (Negative) U Marijuana (THC) Screen (Negative) Ethyl Alcohol ( - 10) mg/dL SARS-CoV-2 (PCR) Negative (Negative) Point of Care Testing Glucose POC 99 ABG Data ABG results: 7.29 27.2 76 -13 13.2 94% Imaging Data CT scan - head: Radiologist's Impression: [address] [address] [address] Scan Report Signed Patient: Emani Leiva PROCEDURE:? CT HEAD/BRAIN WO CON ? INDICATIONS:? altered mental status ? TECHNIQUE:? Noncontrast 4.5 mm thick angled axial sections acquired from the foramen magnum to the vertex, with coronal and sagittal reformats.? For radiation dose reduction, the following was used:? automated exposure control, adjustment of mA and/or kV according to patient size.? ? COMPARISON:? [facility], CT, CT HEAD/BRAIN WO CON, 02/09/2022, 18:17. ? FINDINGS:? Image quality:? Excellent.? ? CSF spaces:? Basal cisterns are patent.? No extra-axial fluid collections.? Ventricles are normal in size and shape.? ? Brain:? No midline shift.? No intracranial masses or hemorrhage.? Bran-white matter interface is normal.? Mild volume loss and periventricular white matter hypoattenuation likely chronic small vessel disease.. ? Skull and face:? Calvarium and visualized facial bones are intact, without suspicious lesions.? ? Sinuses:? Visualized sinuses and mastoids are clear.? ? IMPRESSION:? No acute intracranial abnormality.? ? ? Dictated by: Tristen Katz M.D. on 03/28/2022 at 15:31 ? ? Approved by: Tristen Katz M.D. on 03/28/2022 at 15:34?? Chest x-ray: Radiologist's Impression: Date of Service: 03/28/22 Loc: ED Accession Number: [id number] ?? Procedure: XR chest 1V Ordering Provider: Cynthia Kennedy D.O. PROCEDURE:? XR CHEST 1V ? INDICATIONS:? altered mental status ? TECHNIQUE:? One view of the chest was acquired.? ? COMPARISON:? [facility], CT, CT THORACIC SPINE WO CON, 02/09/2022, 18:17.? [facility], CR, XR CHEST 1V, 04/14/2021, 17:24.? [facility], CR, XR CHEST 1V, 03/30/2021, 8:18. ? FINDINGS:? ? Surgical changes and devices:? Cholecystectomy clips. ? Lungs and pleura:? Lungs are clear.? No pleural effusions or pneumothorax.? ? Mediastinum:? Mediastinal contours appear unchanged.? Coronary artery calcifications.? Heart size is normal.? ? Bones and chest wall:? No suspicious bony lesions.? Prior left 6th rib fracture.? Prior vertebroplasty.? Overlying soft tissues appear unremarkable.? ? IMPRESSION:? No acute cardiopulmonary abnormality. ? ? ? Dictated by: Heath Scales M.D. on 03/28/2022 at 14:34 ? ? Approved by: Heath Scales M.D. on 03/28/2022 at 14:36?? CT chest abd pelvis: Radiologist's Impression: FINDINGS:? Image quality:? Adequate.? ? CHEST:? Lungs and pleura:? No acute airspace opacities.? No pleural effusions or pneumothorax.? ? Mediastinum: ? No pericardial effusion.? No mediastinal or hilar adenopathy by size criteria.? Thoracic aorta and central pulmonary arteries are normal in size.? Esophagus appears mildly thickened. ? Chest wall:? No axillary or supraclavicular adenopathy by size criteria.? ? ? ABDOMEN:? Solid organs:? Liver is normal in size and enhancement.? Gallbladder is absent .? Biliary ductal dilation is similar to before, extrahepatic duct measures 13 millimeters at the jose alberto hepatis.? Dilation of the main pancreatic duct redemonstrated measuring approximately 5-6 millimeters at the pancreatic head.? Spleen is normal in size and enhancement.? No adrenal nodules.? No hydronephrosis.? Multiple large nonobstructing left renal stones redemonstrated ? Peritoneum and bowel:? Wall thickening of the ascending colon is present with adjacent fat stranding.? No definite evidence of mechanical bowel obstruction. ? Nodes and vessels:? No retroperitoneal or mesenteric adenopathy by size criteria.? Aorta and inferior vena cava are normal in size.? ? ? PELVIS:? Genitourinary:? Bladder wall thickness is normal.? The uterus is not visualized and is presumed surgically absent. ? Bones:? Multiple vertebral body compression fractures present as before, not substantially changed in appearance.? Suspected avulsion fracture at the right ischial tuberosity, similar to before ? IMPRESSION:? 1. Wall thickening of the ascending colon with adjacent fat stranding is choudhury spicious for a colitis with infectious or inflammatory etiologies possible. 2. The esophagus appears mildly thickened which is a nonspecific finding, could indicate esophagitis such as reflux esophagitis. 3. Similar biliary ductal dilation, etiology indeterminate on this exam.? Correlation with the patient's symptoms and laboratory markers for biliary obstruction may be helpful.? Endoscopic evaluation or MRCP could be obtained for further evaluation if indicated.? There is also similar dilation of the main pancreatic duct.? Differential considerations would include an obstructing stone or mass, sphincter of Oddi dysfunction, papillary stenosis, senescent change. 4. Multiple non-obstructing left renal stones as before.? ? Dictated by: Alex Valdes M.D. on 03/28/2022 at 19:48 ? ? Discharge Plan Departure Patient Disposition: Admitted As Inpatient Clinical Impression: Acidosis, Tachycardia, UTI (urinary tract infection) Admit Date/Time: 03/28/22 20:24 Admit Provider: Reginaldo Bains
--- NOTE | 2022-03-28 14:06 | DI.RAD.S_ITS ---
PROCEDURE: XR CHEST 1V INDICATIONS: altered mental status TECHNIQUE: One view of the chest was acquired. COMPARISON: [facility], CT, CT THORACIC SPINE WO CON, 02/09/2022, 18:17. [facility], CR, XR CHEST 1V, 04/14/2021, 17:24. [facility], CR, XR CHEST 1V, 03/30/2021, 8:18. FINDINGS: Surgical changes and devices: Cholecystectomy clips. Lungs and pleura: Lungs are clear. No pleural effusions or pneumothorax. Mediastinum: Mediastinal contours appear unchanged. Coronary artery calcifications. Heart size is normal. Bones and chest wall: No suspicious bony lesions. Prior left 6th rib fracture. Prior vertebroplasty. Overlying soft tissues appear unremarkable. IMPRESSION: No acute cardiopulmonary abnormality. Dictated by: Heath Scales M.D. on 03/28/2022 at 14:34 Approved by: Heath Scales M.D. on 03/28/2022 at 14:36
--- NOTE | 2022-03-28 14:06 | DI.CT.S_ITS ---
PROCEDURE: CT HEAD/BRAIN WO CON INDICATIONS: altered mental status TECHNIQUE: Noncontrast 4.5 mm thick angled axial sections acquired from the foramen magnum to the vertex, with coronal and sagittal reformats. For radiation dose reduction, the following was used: automated exposure control, adjustment of mA and/or kV according to patient size. COMPARISON: [facility], CT, CT HEAD/BRAIN WO CON, 02/09/2022, 18:17. FINDINGS: Image quality: Excellent. CSF spaces: Basal cisterns are patent. No extra-axial fluid collections. Ventricles are normal in size and shape. Brain: No midline shift. No intracranial masses or hemorrhage. Bran-white matter interface is normal. Mild volume loss and periventricular white matter hypoattenuation likely chronic small vessel disease.. Skull and face: Calvarium and visualized facial bones are intact, without suspicious lesions. Sinuses: Visualized sinuses and mastoids are clear. IMPRESSION: No acute intracranial abnormality. Dictated by: Tristen Katz M.D. on 03/28/2022 at 15:31 Approved by: Tristen Katz M.D. on 03/28/2022 at 15:34
[2022-03-28] MEDS: SODIUM CHLORIDE 0.9% 1,000 ML 1000 ML IV (15:01)
[2022-03-28] MEDS: NALOXONE 1 MG/ML SYRINGE NASAL (15:01)
[2022-03-28 15:24] LABS: Add Manual Diff / Slide Review NO; Basophils Absolute Auto 0 /uL (0-100); Basophils Percent Auto 0.3 % (0-2); Eosinophils Absolute Auto 0 /uL (0-450); Eosinophils Percent Auto 0.2 % (2-4); Hematocrit 30.9 % (36-46); Hemoglobin 10.4 g/dL (12.0-16.0); Lymphocytes Absolute Auto 700 /uL (1100-4500); Lymphocytes Percent Auto 9.4 % (25-40); Mean Corpuscular HGB Conc 33.7 % (30-36); Mean Corpuscular Hemoglobin 33.4 PG (26-34); Mean Corpuscular Volume 99.2 fL (80-100); Monocytes Absolute Auto 400 /uL (0-900); Monocytes Percent Auto 4.9 % (3-14); Neutrophils Absolute Auto 6700 /uL (1500-7000); Neutrophils Percent Auto 85.2 % (50-75); Platelet Count 492 X10^3/uL (150-400); Red Blood Cell Count 3.12 X10^6/uL (4.0-5.2); Red Cell Distribution Width 17.5 % (11.6-14.8); White Blood Cell Count 7.9 X10^3/uL (4.5-11.0)
[2022-03-28 15:30] LABS: INR 0.9 (0.9-1.3); Prothrombin Time 10.8 SECONDS (10.1-12.7)
[2022-03-28 15:33] LABS: PTT Partial Thromboplastin Tim 36 SECONDS (26.4-36.2)
[2022-03-28 15:35] LABS: Ammonia (NH3) 11 umol/L (9-30); Lactate (Lactic Acid) 0.8 mmol/L (0.7-2.1)
[2022-03-28 15:37] LABS: Acetaminophen < 10 ug/mL (10-30); Alanine Aminotransferase 51 IU/L (<35); Albumin 4.2 g/dL (3.5-5.0); Albumin Globulin Ratio 1.3 (1.0-2.8); Alkaline Phosphatase 138 U/L (38-126); Aspartate Aminotransferase 127 IU/L (14-36); Bilirubin Total 0.4 mg/dL (0.2-1.3); Blood Urea Nitrogen 25 mg/dL (7-17); Calcium 8.5 mg/dL (8.4-10.2); Carbon Dioxide 14 mmol/L (22-32); Chloride 110 mmol/L (98-107); Estimated Glomerular Filt Rate > 60 mL/min (>60); Ethanol (ETOH) < 10 mg/dL; Globulin 3.3 g/dL (1.7-4.1); Glucose 107 mg/dL (80-110); HEMOLYSIS < 15 (0-50); Potassium 3.8 mmol/L (3.4-5.1); Salicylate < 1.0 mg/dL (<20); Sodium 139 mmol/L (137-145); Total Protein 7.5 g/dL (6.3-8.2)
[2022-03-28 15:43] LABS: Creatine Kinase 3108 U/L (30-135)
[2022-03-28 15:48] LABS: Troponin I 0.092 ng/mL (0.01-0.034)
[2022-03-28 15:53] LABS: Prolactin 5.4 ng/mL (3.0-18.6)
[2022-03-28 16:07] LABS: Thyroid Stimulating Hormone 0.461 uIU/mL (0.47-4.68)
[2022-03-28 17:12] LABS: Appearance Urine UA CLEAR; Bilirubin Urine UA NEGATIVE (NEGATIVE); Color Urine UA YELLOW; Glucose Urine UA NEGATIVE (Negative); Ketones Urine UA 1+ (NEGATIVE); Leukocyte Esterase Urine UA 1+ (NEGATIVE); Nitrite Urine UA NEGATIVE (Negative); Occult Blood Urine UA 2+ (Negative); Protein Urine UA 1+ (Negative); Urobilinogen Urine UA 0.2 E.U./dL (0.2)
[2022-03-28 17:17] LABS: COVID19 -Nasal RAPID Negative (Negative)
[2022-03-28 17:26] LABS: UR Morphine/Opiate cutoff 300 Negative (Negative); Ur Creatinine Normal (Normal); Ur Specific Gravity Normal (Normal); Urine Amphetamines Negative (Negative); Urine Barbiturates Negative (Negative); Urine Benzodiazepines Negative (Negative); Urine Cocaine Negative (Negative); Urine MDMA Negative (Negative); Urine Methadone Negative (Negative); Urine Methamphetamines Negative (Negative); Urine Oxycodone Positive (Negative); Urine Phencyclidine Negative (Negative); Urine Tetrahydrocannabinol Negative (Negative); Urine Tricyclic Antidepressant Negative (Negative); Urine pH Normal (Normal)
[2022-03-28] MEDS: METOPROLOL TARTRATE 5 MG/5 ML INJ IV ×2 (17:39→17:47)
[2022-03-28 17:55] LABS: Bacteria Urine Occasional (0-1); RBC Urine 0-1/HPF (0-5/HPF); Squamous Epithelial Cell Urine None Seen (0-5/HPF); WBC Urine 10-30/HPF (0-5/HPF)
[2022-03-28 18:18] LABS: Troponin I 0.097 ng/mL (0.01-0.034)
--- NOTE | 2022-03-28 18:37 | DI.CT.S_ITS ---
PROCEDURE: CT CHEST ABD PEL W CON INDICATIONS: altered mental status, r/u infection TECHNIQUE: After the administration of intravenous contrast, 5 mm thick sections acquired from the lung apices to the symphysis. 5 mm coronal and sagittal reformats were performed, with additional 7 mm MIP reformats through the lungs. For radiation dose reduction, the following was used: automated exposure control, adjustment of mA and/or kV according to patient size. COMPARISON: [facility], CT, CT THORACIC SPINE WO CON, 02/09/2022, 18:17. [facility], CT, CT LUMBAR SPINE WO CON, 02/09/2022, 18:17. [facility], CT, CT PEL WO CON, 02/09/2022, 21:23. [facility], RG, CT ANGIO ABDOMEN / PELVIS W, 10/29/2021, 18:50. [facility], RG, CT ANGIO CHEST, 10/29/2021, 18:50. FINDINGS: Image quality: Adequate. CHEST: Lungs and pleura: No acute airspace opacities. No pleural effusions or pneumothorax. Mediastinum: No pericardial effusion. No mediastinal or hilar adenopathy by size criteria. Thoracic aorta and central pulmonary arteries are normal in size. Esophagus appears mildly thickened. Chest wall: No axillary or supraclavicular adenopathy by size criteria. ABDOMEN: Solid organs: Liver is normal in size and enhancement. Gallbladder is absent . Biliary ductal dilation is similar to before, extrahepatic duct measures 13 millimeters at the jose alberto hepatis. Dilation of the main pancreatic duct redemonstrated measuring approximately 5-6 millimeters at the pancreatic head. Spleen is normal in size and enhancement. No adrenal nodules. No hydronephrosis. Multiple large nonobstructing left renal stones redemonstrated Peritoneum and bowel: Wall thickening of the ascending colon is present with adjacent fat stranding. No definite evidence of mechanical bowel obstruction. Nodes and vessels: No retroperitoneal or mesenteric adenopathy by size criteria. Aorta and inferior vena cava are normal in size. PELVIS: Genitourinary: Bladder wall thickness is normal. The uterus is not visualized and is presumed surgically absent. Bones: Multiple vertebral body compression fractures present as before, not substantially changed in appearance. Suspected avulsion fracture at the right ischial tuberosity, similar to before IMPRESSION: 1. Wall thickening of the ascending colon with adjacent fat stranding is suspicious for a colitis with infectious or inflammatory etiologies possible. 2. The esophagus appears mildly thickened which is a nonspecific finding, could indicate esophagitis such as reflux esophagitis. 3. Similar biliary ductal dilation, etiology indeterminate on this exam. Correlation with the patient's symptoms and laboratory markers for biliary obstruction may be helpful. Endoscopic evaluation or MRCP could be obtained for further evaluation if indicated. There is also similar dilation of the main pancreatic duct. Differential considerations would include an obstructing stone or mass, sphincter of Oddi dysfunction, papillary stenosis, senescent change. 4. Multiple non-obstructing left renal stones as before. Dictated by: Alex Valdes M.D. on 03/28/2022 at 19:48 Approved by: Alex Valdes M.D. on 03/28/2022 at 20:08
[2022-03-28 18:58] LABS: CKMB % Relative Index 0.3 % (1.5-5.0); Creatine Kinase MB 9.88 ng/mL (<2.37)
[2022-03-28] MEDS: cefTRIAXone 2,000 MG in SODIUM CHLORIDE 0.9% 100 ML 200 MG IV (19:25)
[2022-03-28 20:16] LABS: PCO2 ABG 27.2 mmHg (35-45); pH ABG 7.29 (7.35-7.45)
[2022-03-28 20:17] LABS: Fractionated Inspired Oxygen 21; HCO3 ABG 13 mmol/L (22-26); Oxygen Saturation ABG 94 % (95-100); PO2 ABG 76 mmHg (80-100); TCO2 ABG 14 mmol/L (21-31)
--- NOTE | 2022-03-28 20:49 | PM.HP.1 ---
History of Present Illness History of Present Illness Date Patient Seen: 03/28/22 Time Patient Seen: 21:52 Chief complaint: Acute toxic metabolic encephalopathy, UTI Narrative: Patient is nonverbally responsive and I have obtained the history from records reviewed at her recent admission and discharge from [facility] and a discussion with Dr. Raymond Rendon who provided me with details on her discharge. Emani Leiva is a 71-year-old female with a history CKD stage 3, frequent urinary tract infections, chronic metabolic acidosis, COPD, thrombocytosis, frequent falls, and chronic pain syndrome with continuous opioid and pharmaceutical amphetamine use who apparently was boarded at [facility] a ED from sometime late in the evening of March 26 and discharged right before noon today on March 28. At that time she presented with urinary incontinence, non verbal responsiveness, and generalized weakness. She was hydrated and given a 1 time dose of IV Rocephin. She slowly over that time became more awake, alert and oriented and was ambulatory at the time of discharge at noon. Patient has had a history of opiate and amphetamine and polypharmacy. She takes oxycodone and carispodol regularly for chronic back pain and allegedly EMS had done a welfare check on her home sometime last year and found multiple empty bottles of Robitussin AC under her bed. She was brought to [place] emergency department sometime before 2:00 p.m. as she was seen at 1356. Review of her PCP's note indicates that she recently established care with Dr. Jairo Powers on February 16 and due to the number of morphine equivalent medications, they were in the process of weaning her off of opioids to a level where he could manage her without her going to a pain management clinic and [place]. Patient presented as very weak, obtunded, and nonverbal in the ED. her UA was equivocal here however reviewing [facility] is records it met criteria for culture. Is likely that she was partially responsive to the 1 dose of antibiotic she received at [facility]. Chest x-ray and head CT done in the ED were negative for any acute process. CT of the abdomen pelvis reported wall thickening of the ascending colon suspicious for colitis, thickened esophagus suspicious for esophagitis or reflux esophagitis, biliary ductal dilatation, and multiple nonobstructing left renal stones as noted in prior studies. Temperature is currently 98.9?, blood pressure 145/71, heart rate 83, respiratory rate 16, oxygen saturation of 98% on room air, she weighs 40.5 kg with a BMI of 15.7. She has a mild anemia of hemoglobin and hematocrit of 10.4 and 30.9 platelet count is 492 she does not have a left shift, INR is 0.9 PT is 10.8 she has an ABG pH of 7.29 ABG pCO2 of 27.2 ABG PO2 of 76 ABG bicarb 13 ABG total CO2 14 ABG oxygen saturation 94% with a base excess of 13, serum clear aid is 110 serum bicarb 14 BUN 25 AST 127 ALT 51 alk-phos 138 ammonia was 11 total creatinine kinase is 3100 CK-MB is 9.8 troponin was 0.97 TSH 0.461, U/A with presence of protein, ketones, occult blood, leukocyte esterase, and urine WBC and in our UA culture was not indicated, urine toxicology was positive for oxycodone, she had a normal alcohol level, and COVID-19 PCR is negative. Patient History Medical History Anxiety Arthritis C. difficile colitis Chronic pain Colitis Compression fracture of L1 vertebra (~07/2019) COPD (chronic obstructive pulmonary disease) Depression DJD (degenerative joint disease) Fibromyalgia Fracture, tibia GI bleeding History of osteomyelitis History of recurrent UTIs HLD (hyperlipidemia) Hypertension Hypertension Insomnia Iron (Fe) deficiency anemia Left foot drop Lumbar compression fracture (02/26/19) Migraines Multiple fractures Nephrolithiasis Neuropathy Numbness and tingling Osteoporosis Osteoporosis Peptic ulcer disease Pre-diabetes Radius fracture (08/30/17) Renal disease Stage 3 chronic kidney disease Surgical History H/O: hysterectomy History of surgery Hx of appendectomy Hx of cholecystectomy Hx of elbow surgery Hx of kyphoplasty (~2013) Hx of kyphoplasty (04/28/19) Hx of kyphoplasty (07/28/19) Hx of tonsillectomy Status post epidural steroid injection (03/25/19) Family & Social History Family History Mother No known health problems COPD (chronic obstructive pulmonary disease) Father No known health problems Social History: household members significant other Tobacco & Substance use: Tobacco type cigarettes,e-cigarettes Smoking Status Former smoker alcohol intake current alcohol intake frequency holiday/special occasion Substance Use Type does not use,former substance user Meds Home Medications and Allergies Home Medications Medication Instructions Recorded Confirmed Type metoprolol tartrate 25 mg tablet 25 mg PO BID #180 tabs 02/16/22 02/16/22 Rx methocarbamol 500 mg tablet See Rx Instructions .Route 03/02/22 Rx .COMPLEX #30 tabs oxycodone 10 mg tablet 10 mg PO Q6H PRN pain #120 tabs 03/23/22 Rx Allergies Allergy/AdvReac Type Severity Reaction Status Date / Time furosemide [From Lasix] Allergy Intermediate Rash Verified 03/28/22 14:02 tramadol [TRAMADOL] Allergy Unknown Verified 03/28/22 14:02 amitriptyline [AMITRIPTYLINE] AdvReac Intermediate Confusion Verified 03/28/22 14:02 Review of Systems Review of Systems ROS: Yes unobtainable due to mental status Exam Vital Signs (past 8 hours): - 03/28/22 13:55 03/28/22 13:54 03/28/22 13:55 Temperature 98.9 F Pulse Rate 128 H 122 H Respiratory Rate 15 Blood Pressure 194/85 H 194/88 H Pulse Oximetry 99 99 Oxygen Delivery Method Room Air 03/28/22 14:00 03/28/22 14:00 03/28/22 14:44 Temperature Pulse Rate 120 H 121 H Respiratory Rate Blood Pressure 181/81 H Pulse Oximetry 100 96 Oxygen Delivery Method 03/28/22 15:00 03/28/22 15:00 03/28/22 15:24 Temperature Pulse Rate 101 H Respiratory Rate Blood Pressure 182/96 H 201/102 H Pulse Oximetry 93 Oxygen Delivery Method 03/28/22 15:24 03/28/22 15:30 03/28/22 15:30 Temperature Pulse Rate 134 H 136 H Respiratory Rate Blood Pressure 186/105 H Pulse Oximetry 100 99 Oxygen Delivery Method 03/28/22 16:00 03/28/22 16:00 03/28/22 16:30 Temperature Pulse Rate 118 H Respiratory Rate Blood Pressure 182/92 H 191/84 H Pulse Oximetry 99 Oxygen Delivery Method 03/28/22 16:30 03/28/22 17:00 03/28/22 17:30 Temperature Pulse Rate 128 H 144 H 124 H Respiratory Rate 14 15 Blood Pressure Pulse Oximetry 100 99 100 Oxygen Delivery Method 03/28/22 17:39 03/28/22 17:39 03/28/22 17:40 Temperature Pulse Rate 122 H Respiratory Rate 13 Blood Pressure 167/88 H 175/82 H Pulse Oximetry 99 Oxygen Delivery Method 03/28/22 17:40 03/28/22 17:45 03/28/22 17:45 Temperature Pulse Rate 123 H 112 H Respiratory Rate 13 10 L Blood Pressure 175/94 H Pulse Oximetry 99 98 Oxygen Delivery Method 03/28/22 17:48 03/28/22 17:48 03/28/22 17:50 Temperature Pulse Rate 105 H Respiratory Rate 13 Blood Pressure 179/91 H 181/84 H Pulse Oximetry 99 Oxygen Delivery Method 03/28/22 17:50 03/28/22 17:55 03/28/22 17:55 Temperature Pulse Rate 92 H 88 Respiratory Rate 12 12 Blood Pressure 181/84 H Pulse Oximetry 99 98 Oxygen Delivery Method 03/28/22 18:04 03/28/22 18:05 03/28/22 18:05 Temperature Pulse Rate 89 89 Respiratory Rate 11 L Blood Pressure 179/92 H Pulse Oximetry 97 99 Oxygen Delivery Method 03/28/22 18:10 03/28/22 18:10 03/28/22 18:15 Temperature Pulse Rate 85 85 Respiratory Rate 10 L 9 L Blood Pressure 165/79 H Pulse Oximetry 98 98 Oxygen Delivery Method 03/28/22 18:15 03/28/22 18:20 03/28/22 18:20 Temperature Pulse Rate 85 Respiratory Rate 26 H Blood Pressure 167/78 H 171/79 H Pulse Oximetry 98 Oxygen Delivery Method 03/28/22 18:25 03/28/22 18:25 03/28/22 18:30 Temperature Pulse Rate 85 Respiratory Rate 22 Blood Pressure 157/81 H 159/73 H Pulse Oximetry 98 Oxygen Delivery Method 03/28/22 18:30 03/28/22 18:35 03/28/22 18:35 Temperature Pulse Rate 84 85 Respiratory Rate 21 24 Blood Pressure 162/78 H Pulse Oximetry 98 98 Oxygen Delivery Method 03/28/22 18:40 03/28/22 18:40 Temperature Pulse Rate 83 Respiratory Rate 16 Blood Pressure 145/71 H Pulse Oximetry 98 Oxygen Delivery Method Oxygen Delivery Method Room Air Narrative Exam Narrative: Gen: Alert, cachectic 71 y.o. female, appears older than stated age HEENT: normocephalic, atraumatic, pinpoint pupils, scleral icterus, oral mucosa dry Neck: supple, full ROM, no JVD, trachea is midline Resp: Lungs CTA, non-labored breathing CV: RRR, no murmur or rubs Abd: soft, non-tender, normoactive BTs Skin: Poor skin turgor, superficial appearing scratches on her back Neuro: GCS 9. Responsive to voice however nonverbal she appears to be attempting to speak. Extremities: moves all 4 extremities, is ambulatory, negative Juaquin?s sign Psyche: unable to assess Objective Labs Result Diagrams: 03/28/22 15:07 03/28/22 15:07 Labs: Laboratory Results - last 24 hr 03/28/22 03/28/22 03/28/22 15:07 15:07 15:07 WBC 7.9 RBC 3.12 L Hgb 10.4 L Hct 30.9 L MCV 99.2 MCH 33.4 MCHC 33.7 RDW 17.5 H Plt Count 492 H Neut % (Auto) 85.2 H Lymph % (Auto) 9.4 L [place] % (Auto) 4.9 Eos % (Auto) 0.2 L Baso % (Auto) 0.3 Neut # (Auto) 6700 Lymph # (Auto) 700 L [place] # (Auto) 400 Eos # (Auto) 0 Baso # (Auto) 0 PT 10.8 INR 0.9 APTT 36 ABG pH ABG pCO2 ABG pO2 ABG HCO3 ABG Total CO2 ABG O2 Saturation ABG Base Excess FiO2 Sodium 139 Potassium 3.8 Chloride 110 H Carbon Dioxide 14 L BUN 25 H Creatinine 1.00 Estimated GFR > 60 BUN/Creatinine Ratio 25.0 H Glucose 107 Lactate Calcium 8.5 Total Bilirubin 0.4 AST 127 H ALT 51 H Alkaline Phosphatase 138 H Ammonia Total Creatine Kinase 3108 H CK-MB (CK-2) 9.88 H CK-MB (CK-2) Rel Index 0.3 L Troponin I 0.092 H Total Protein 7.5 Albumin 4.2 Globulin 3.3 Albumin/Globulin Ratio 1.3 TSH Prolactin 5.4 Urine Color Urine Appearance Urine pH Ur Specific [place] Urine Protein Urine Glucose (UA) Urine Ketones Urine Occult Blood Urine Nitrate Urine Bilirubin Urine Urobilinogen Ur Leukocyte Esterase Urine RBC Urine WBC Ur Squamous Epith Cells Urine Bacteria Ur Culture Indicated? Salicylates < 1.0 U Opiates 300ng/mL cut Ur Oxycodone Screen Urine Methadone Screen Acetaminophen < 10 Ur Barbiturates Screen U Tricyclic Antidepress Ur Phencyclidine Scrn Ur Amphetamines Screen U Methamphetamines Scrn Ur MDMA Scrn (Ecstasy) U Benzodiazepines Scrn Urine Cocaine Screen U Marijuana (THC) Screen Ethyl Alcohol < 10 SARS-CoV-2 (PCR) 03/28/22 03/28/22 03/28/22 15:07 15:07 15:07 WBC RBC Hgb Hct MCV MCH MCHC RDW Plt Count Neut % (Auto) Lymph % (Auto) [place] % (Auto) Eos % (Auto) Baso % (Auto) Neut # (Auto) Lymph # (Auto) [place] # (Auto) Eos # (Auto) Baso # (Auto) PT INR APTT ABG pH ABG pCO2 ABG pO2 ABG HCO3 ABG Total CO2 ABG O2 Saturation ABG Base Excess FiO2 Sodium Potassium Chloride Carbon Dioxide BUN Creatinine Estimated GFR BUN/Creatinine Ratio Glucose Lactate 0.8 Calcium Total Bilirubin AST ALT Alkaline Phosphatase Ammonia 11 Total Creatine Kinase CK-MB (CK-2) CK-MB (CK-2) Rel Index Troponin I Total Protein Albumin Globulin Albumin/Globulin Ratio TSH 0.461 L Prolactin Urine Color Urine Appearance Urine pH Ur Specific [place] Urine Protein Urine Glucose (UA) Urine Ketones Urine Occult Blood Urine Nitrate Urine Bilirubin Urine Urobilinogen Ur Leukocyte Esterase Urine RBC Urine WBC Ur Squamous Epith Cells Urine Bacteria Ur Culture Indicated? Salicylates U Opiates 300ng/mL cut Ur Oxycodone Screen Urine Methadone Screen Acetaminophen Ur Barbiturates Screen U Tricyclic Antidepress Ur Phencyclidine Scrn Ur Amphetamines Screen U Methamphetamines Scrn Ur MDMA Scrn (Ecstasy) U Benzodiazepines Scrn Urine Cocaine Screen U Marijuana (THC) Screen Ethyl Alcohol SARS-CoV-2 (PCR) 03/28/22 03/28/22 03/28/22 16:35 16:35 16:51 WBC RBC Hgb Hct MCV MCH MCHC RDW Plt Count Neut % (Auto) Lymph % (Auto) [place] % (Auto) Eos % (Auto) Baso % (Auto) Neut # (Auto) Lymph # (Auto) [place] # (Auto) Eos # (Auto) Baso # (Auto) PT INR APTT ABG pH ABG pCO2 ABG pO2 ABG HCO3 ABG Total CO2 ABG O2 Saturation ABG Base Excess FiO2 Sodium Potassium Chloride Carbon Dioxide BUN Creatinine Estimated GFR BUN/Creatinine Ratio Glucose Lactate Calcium Total Bilirubin AST ALT Alkaline Phosphatase Ammonia Total Creatine Kinase CK-MB (CK-2) CK-MB (CK-2) Rel Index Troponin I Total Protein Albumin Globulin Albumin/Globulin Ratio TSH Prolactin Urine Color Yellow Urine Appearance Clear Urine pH 6.0 Ur Specific [place] 1.010 Urine Protein 1+ H Urine Glucose (UA) Negative Urine Ketones 1+ H Urine Occult Blood 2+ H Urine Nitrate Negative Urine Bilirubin Negative Urine Urobilinogen 0.2 Ur Leukocyte Esterase 1+ H Urine RBC 0-1/hpf Urine WBC 10-30/hpf H Ur Squamous Epith Cells None seen Urine Bacteria Occasional (0-1) Ur Culture Indicated? Culture not indicate Salicylates U Opiates 300ng/mL cut Negative Ur Oxycodone Screen Positive H Urine Methadone Screen Negative Acetaminophen Ur Barbiturates Screen Negative U Tricyclic Antidepress Negative Ur Phencyclidine Scrn Negative Ur Amphetamines Screen Negative U Methamphetamines Scrn Negative Ur MDMA Scrn (Ecstasy) Negative U Benzodiazepines Scrn Negative Urine Cocaine Screen Negative U Marijuana (THC) Screen Negative Ethyl Alcohol SARS-CoV-2 (PCR) Negative 03/28/22 03/28/22 17:39 19:51 WBC RBC Hgb Hct MCV MCH MCHC RDW Plt Count Neut % (Auto) Lymph % (Auto) [place] % (Auto) Eos % (Auto) Baso % (Auto) Neut # (Auto) Lymph # (Auto) [place] # (Auto) Eos # (Auto) Baso # (Auto) PT INR APTT ABG pH 7.29 L* ABG pCO2 27.2 L ABG pO2 76 L ABG HCO3 13 L ABG Total CO2 14 L ABG O2 Saturation 94 L ABG Base Excess -13.0 L FiO2 21 Sodium Potassium Chloride Carbon Dioxide BUN Creatinine Estimated GFR BUN/Creatinine Ratio Glucose Lactate Calcium Total Bilirubin AST ALT Alkaline Phosphatase Ammonia Total Creatine Kinase CK-MB (CK-2) CK-MB (CK-2) Rel Index Troponin I 0.097 H Total Protein Albumin Globulin Albumin/Globulin Ratio TSH Prolactin Urine Color Urine Appearance Urine pH Ur Specific [place] Urine Protein Urine Glucose (UA) Urine Ketones Urine Occult Blood Urine Nitrate Urine Bilirubin Urine Urobilinogen Ur Leukocyte Esterase Urine RBC Urine WBC Ur Squamous Epith Cells Urine Bacteria Ur Culture Indicated? Salicylates U Opiates 300ng/mL cut Ur Oxycodone Screen Urine Methadone Screen Acetaminophen Ur Barbiturates Screen U Tricyclic Antidepress Ur Phencyclidine Scrn Ur Amphetamines Screen U Methamphetamines Scrn Ur MDMA Scrn (Ecstasy) U Benzodiazepines Scrn Urine Cocaine Screen U Marijuana (THC) Screen Ethyl Alcohol SARS-CoV-2 (PCR) Assessment & Plan Assessment & Plan narrative: Emani Leiva is admitted for acute toxic metabolic encephalopathy and and apparent incomplete treatment of a urinary tract infection. Acute toxic metabolic encephalopathy, present on admission Opioid and dextramorphone likely the cause Metabolic acidosis with a pH of 7.29 and a bicarb of 13 and ABG total CO2 14 She was bolused 1 liter in the ED, continue aggressive hydration, NS at 150 ml/hour Repeat ABG in am Incomplete treatment of a UTI She was administered one dose of IV ceftriaxone at [facility] and again in the ED Continue IV Ceftriaxone Infection of unknown origin CT findings of colitis, , biliary dilatation, dilatation of the pancreatic head and non-obstructing left sided renal stones Empiric coverage with IV ceftriaxone and metronidiazole Elevated liver enzymes acute hepatitis panel ordered May be secondary to rhabdo, prescribed muscle relaxants and sleep aids May be related to biliary function ammonia level was normal, does not explain ecephalopathy 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 Elevated troponin, will continue to trend Elevated CK MB Thrombocytosis platelet count of 492, though has been persistently high Orginally attributed to patient's smoking status but as of February, the patient had not been smoking, pending outpatient referral to hematology Adult failure to thrive, present on admission Patient has a repeated pattern of self neglect with frequent hospitalizations for urinary tract infections and encephalopathy I have requested social work consult as patient may need supervised placement VTE Prophylaxis: Wells risk score 1.5 X Enoxaparin 40 mg subQ once daily Bilateral SCDs Patient is admitted to the inpatient service due to the severity of disease, risks of further disease progression and this stay is expected to exceed 2 midnights. FEN: IV fluids: NS at 150 ml/hour, diet: heart healthy when awake, labs: CBC, C/BMP, liver enzymes, Mag, PT/INR Consultants None Dispo: unknown at this time Code status: Full Code, Duane Leiva listed previously as her surrogate and POA. Patient is unable to state her preference. [X] I have utilized all available immediate resources to obtain, update, or review of the patient's current medications COVID-19 COVID-19 status: Negative Result date/Date tested (Pos, Neg/Pending): 03/28/22 Time Spent With Patient Critical Care time: I spent a total of [] minutes of critical care time on this patient's care today; this time is exclusive of procedural time. Scores GCS Rosalie coma scale eye opening: To sound Rosalie coma scale verbal response: None Rosalie coma scale motor response: Localising Rosalie coma scale total score: 9 Wells' Criteria for PE Clinical signs and symptoms of DVT: No PE is #1 Dx or equally likely: No Heart rate > 100: No Immobilization at least 3 days or surg in previous 4 weeks: Yes History of PE or DVT: No Hemoptysis: No Malignancy w/Treatment within 6 months or palliative: No Wells' PE Score total: 1.5 Quality VTE Deep Vein Thrombosis/Pulmonary Embolism Present on Admission: No MIPS - Admit The patient?s Advance Care plan is not present because I confirmed today that the patient does not wish or was not able to name a surrogate decision maker or provide an Advance Care Plan.: Yes MIPS - DC The patient has current or prior documentation of left ventricular ejection fraction (LVEF) less than 40%, or moderate or severely depressed left ventricular systolic function.: No
[2022-03-28] MEDS: SODIUM CHLORIDE 0.9% 1,000 ML 150 ML IV (21:59)
[2022-03-28] MEDS: metroNIDAZOLE 500 MG/100 ML PIGGYBACK 100 MG IV (22:13)
--- NOTE | 2022-03-29 | DI.RAD.S_ITS ---
PROCEDURE: XR CHEST FOR PICC 1V INDICATIONS: PICC PLACEMENT TECHNIQUE: One view of the chest was acquired. COMPARISON: [facility], CR, XR CHEST 1V, 03/28/2022, 14:20. FINDINGS: Surgical changes and devices: Left-sided PICC line tip is in SVC. Lungs and pleura: Lungs are clear. No pleural effusions or pneumothorax. Mediastinum: Mediastinal contours appear normal. Heart size is enlarged. Bones and chest wall: No suspicious bony lesions. Overlying soft tissues appear unremarkable. IMPRESSION: Left-sided PICC line tip is in SVC. No focal infiltrate, pleural effusion or pneumothorax. Dictated by: Jon Braxton M.D. on 03/29/2022 at 14:01 Approved by: Jon Braxton M.D. on 03/29/2022 at 14:02
[2022-03-29 02:31] VITALS: O2SAT 97
[2022-03-29 03:37] VITALS: BP 144/72; PULSE 97; RESP 16; TEMP 36.5; O2SAT 95
[2022-03-29] MEDS: metroNIDAZOLE 500 MG/100 ML PIGGYBACK 100 MG IV ×4 (03:49→21:21)
[2022-03-29] MEDS: SODIUM CHLORIDE 0.9% 1,000 ML 150 ML IV ×2 (06:00→23:48)
[2022-03-29] MEDS: ENOXAPARIN 40 MG/0.4 ML SYRINGE SUBCUT (09:09)
[2022-03-29 10:23] VITALS: O2SAT 95
[2022-03-29 11:23] VITALS: BP 144/80; PULSE 122; RESP 18; TEMP 36.5; O2SAT 97
[2022-03-29 11:26] LABS: pH ABG 7.31 (7.35-7.45)
[2022-03-29 11:27] LABS: Fractionated Inspired Oxygen 21; HCO3 ABG 12 mmol/L (22-26); Oxygen Saturation ABG 97 % (95-100); PCO2 ABG 24.3 mmHg (35-45); PO2 ABG 93 mmHg (80-100); TCO2 ABG 13 mmol/L (21-31)
[2022-03-29] MEDS: OXYCODONE IR 5 MG TABLET PO ×3 (11:46→19:48)
[2022-03-29] MEDS: ACETAMINOPHEN 325 MG TABLET 650 MG PO ×2 (11:46→19:51)
--- NOTE | 2022-03-29 12:01 | PC.NURSE ---
Valerio Blanco called and spoke to pt today. RN spoke to son as well and let him know that the pt is more alert and able to talk in small phrases and refused breakfast but is eating yogurt now. Son stated that he will go to work and would check in later. He asks that we call him if any changes. Valerio Blanco [phone]
[2022-03-29] MEDS: POTASSIUM CHLORIDE IN WATER 10 MEQ/100 ML PIGGYBACK 100 MEQ IV ×4 (14:07→20:08)
[2022-03-29] MEDS: POTASSIUM CHLORIDE 20 MEQ/15 ML UDC 40 MEQ PO (14:08)
[2022-03-29] MEDS: METOPROLOL IR 25 MG TABLET PO ×2 (14:09→21:21)
[2022-03-29 15:07] LABS: Basophils Absolute Auto 200 /uL (0-100); Basophils Percent Auto 2.1 % (0-2); Eosinophils Absolute Auto 0 /uL (0-450); Eosinophils Percent Auto 0.2 % (2-4); Hemoglobin 10.6 g/dL (12.0-16.0); Lymphocytes Absolute Auto 1100 /uL (1100-4500); Lymphocytes Percent Auto 13.4 % (25-40); Mean Corpuscular HGB Conc 34.3 % (30-36); Mean Corpuscular Hemoglobin 33.9 PG (26-34); Mean Corpuscular Volume 98.7 fL (80-100); Monocytes Absolute Auto 500 /uL (0-900); Monocytes Percent Auto 6.6 % (3-14); Neutrophils Absolute Auto 6400 /uL (1500-7000); Neutrophils Percent Auto 77.7 % (50-75); Platelet Count 553 X10^3/uL (150-400); Red Blood Cell Count 3.14 X10^6/uL (4.0-5.2); Red Cell Distribution Width 17.8 % (11.6-14.8); White Blood Cell Count 8.2 X10^3/uL (4.5-11.0)
[2022-03-29 15:23] LABS: Add Manual Diff / Slide Review SLIDE REVIEW
[2022-03-29 15:24] LABS: Anisocytosis 1+; Macrocytosis 1+; Platelet Estimate Increased on smear
[2022-03-29 15:28] LABS: BUN Creatinine Ratio 15.6 (6-22); Blood Urea Nitrogen 15 mg/dL (7-17); Calcium 8.7 mg/dL (8.4-10.2); Carbon Dioxide 16 mmol/L (22-32); Chloride 112 mmol/L (98-107); Creatine Kinase 1184 U/L (30-135); Estimated Glomerular Filt Rate > 60 mL/min (>60); Glucose 181 mg/dL (80-110); HEMOLYSIS < 15 (0-50); Magnesium 1.6 mg/dL (1.6-2.3); Potassium 3.3 mmol/L (3.4-5.1); Sodium 144 mmol/L (137-145)
[2022-03-29 15:29] LABS: Cholesterol 219 mg/dL (140-199); HDL Cholesterol 65 mg/dL (40-60); LDL Cholesterol Calculated 105 mg/dL (<100); Triglycerides 243 mg/dL (35-150)
[2022-03-29 15:42] LABS: Troponin I 0.062 ng/mL (0.01-0.034)
[2022-03-29 15:43] LABS: CKMB % Relative Index 0.3 % (1.5-5.0); Creatine Kinase MB 3.34 ng/mL (<2.37)
[2022-03-29 15:46] LABS: Free T4, Direct Thyroxine 1.03 ng/dL (0.78-2.19)
[2022-03-29 16:03] LABS: Osmolality, Serum 299 mOsmol/kg (280-301)
[2022-03-29] MEDS: MAGNESIUM CHLORIDE 64 MG TABLET 128 MG PO (16:49)
[2022-03-29 18:00] VITALS: O2SAT 99
[2022-03-29] MEDS: cefTRIAXone 1,000 MG in SODIUM CHLORIDE 0.9% 100 ML 200 MG IV (18:11)
[2022-03-29 18:37] VITALS: BP 153/105; PULSE 110; RESP 16; O2SAT 100
[2022-03-29] MEDS: SODIUM CHLORIDE 0.9% FLUSH 10 ML IV (19:58)
--- NOTE | 2022-03-29 21:25 | PM.PN.1 ---
Subjective Subjective Date Patient Seen: 03/29/22 Time Patient Seen: 08:00 Interval history: Patient seen and examined and she can provide no recollection of why she is in hospital or what has occurred to her prior to admission. She can not state if any symptoms are bothering her currently. Exam Vital Signs (past 8 hours): - 03/29/22 18:00 03/29/22 18:37 Pulse Rate 110 H Respiratory Rate 16 Blood Pressure 153/105 H Pulse Oximetry 99 100 Oxygen Delivery Method Room Air Oxygen Flow Rate 0 Oxygen Delivery Method Room Air Oxygen Flow Rate 0 Narrative Exam Narrative: Gen: no acute distress Resp: clear bilaterally CV: tachycardic no murmurs Abd: soft, non-tender Skin: Poor skin turgor Neuro: follows commands, no focal deficits noted, confused Objective Labs Result Diagrams: 03/29/22 14:15 03/29/22 14:15 Labs: Laboratory Results - last 24 hr 03/28/22 03/28/22 03/29/22 15:07 23:50 11:05 WBC RBC Hgb Hct MCV MCH MCHC RDW Plt Count Neut % (Auto) Lymph % (Auto) [place] % (Auto) Eos % (Auto) Baso % (Auto) Neut # (Auto) Lymph # (Auto) [place] # (Auto) Eos # (Auto) Baso # (Auto) Platelet Estimate RBC Morphology Anisocytosis Macrocytosis ABG pH 7.31 L ABG pCO2 24.3 L* ABG pO2 93 ABG HCO3 12 L ABG Total CO2 13 L ABG O2 Saturation 97 ABG Base Excess -14.0 L FiO2 21 Sodium Potassium Chloride Carbon Dioxide BUN Creatinine Estimated GFR BUN/Creatinine Ratio Glucose Serum Osmolality 299 Calcium Magnesium Total Creatine Kinase CK-MB (CK-2) CK-MB (CK-2) Rel Index Troponin I Cancelled Triglycerides Cholesterol LDL Cholesterol, Calc HDL Cholesterol Free T4 Ketones 03/29/22 03/29/22 03/29/22 14:15 14:15 14:15 WBC 8.2 RBC 3.14 L Hgb 10.6 L Hct 31.0 L MCV 98.7 MCH 33.9 MCHC 34.3 RDW 17.8 H Plt Count 553 H Neut % (Auto) 77.7 H Lymph % (Auto) 13.4 L [place] % (Auto) 6.6 Eos % (Auto) 0.2 L Baso % (Auto) 2.1 H Neut # (Auto) 6400 Lymph # (Auto) 1100 [place] # (Auto) 500 Eos # (Auto) 0 Baso # (Auto) 200 H Platelet Estimate Increased on smear RBC Morphology See below Anisocytosis 1+ H Macrocytosis 1+ H ABG pH ABG pCO2 ABG pO2 ABG HCO3 ABG Total CO2 ABG O2 Saturation ABG Base Excess FiO2 Sodium 144 Potassium 3.3 L Chloride 112 H Carbon Dioxide 16 L BUN 15 Creatinine 0.96 Estimated GFR > 60 BUN/Creatinine Ratio 15.6 Glucose 181 H Serum Osmolality Calcium 8.7 Magnesium 1.6 Total Creatine Kinase 1184 H D CK-MB (CK-2) 3.34 H D CK-MB (CK-2) Rel Index 0.3 L Troponin I Triglycerides Cholesterol LDL Cholesterol, Calc HDL Cholesterol Free T4 1.03 Ketones 03/29/22 03/29/22 03/29/22 14:15 14:15 14:15 WBC RBC Hgb Hct MCV MCH MCHC RDW Plt Count Neut % (Auto) Lymph % (Auto) [place] % (Auto) Eos % (Auto) Baso % (Auto) Neut # (Auto) Lymph # (Auto) [place] # (Auto) Eos # (Auto) Baso # (Auto) Platelet Estimate RBC Morphology Anisocytosis Macrocytosis ABG pH ABG pCO2 ABG pO2 ABG HCO3 ABG Total CO2 ABG O2 Saturation ABG Base Excess FiO2 Sodium Potassium Chloride Carbon Dioxide BUN Creatinine Estimated GFR BUN/Creatinine Ratio Glucose Serum Osmolality Calcium Magnesium Total Creatine Kinase CK-MB (CK-2) CK-MB (CK-2) Rel Index Troponin I 0.062 H Triglycerides 243 H Cholesterol 219 H LDL Cholesterol, Calc 105 H HDL Cholesterol 65 H Free T4 Ketones 4.40 H PFSH Medical History Anxiety Arthritis C. difficile colitis Chronic pain Colitis Compression fracture of L1 vertebra (~07/2019) COPD (chronic obstructive pulmonary disease) Depression DJD (degenerative joint disease) Fibromyalgia Fracture, tibia GI bleeding History of osteomyelitis History of recurrent UTIs HLD (hyperlipidemia) Hypertension Hypertension Insomnia Iron (Fe) deficiency anemia Left foot drop Lumbar compression fracture (02/26/19) Migraines Multiple fractures Nephrolithiasis Neuropathy Numbness and tingling Osteoporosis Osteoporosis Peptic ulcer disease Pre-diabetes Radius fracture (08/30/17) Renal disease Stage 3 chronic kidney disease Surgical History H/O: hysterectomy History of surgery Hx of appendectomy Hx of cholecystectomy Hx of elbow surgery Hx of kyphoplasty (~2013) Hx of kyphoplasty (04/28/19) Hx of kyphoplasty (07/28/19) Hx of tonsillectomy Status post epidural steroid injection (03/25/19) Family History Mother No known health problems COPD (chronic obstructive pulmonary disease) Father No known health problems Social History household members: significant other Smoking Status: Former smoker alcohol intake: current Assessment & Plan Assessment & Plan narrative: Ms. Leiva is a 71W with polypharmacy admitted for encephalopathy from unclear etiology. 1. Acute toxic metabolic encephalopathy, present on admission -suspect etiology may be related to substance, but not clear which one -also could be secondary to UTI -has improved in the hospital fairly quickly, makes suspicion for ingestion higher 2.UTI -continue ceftriaxone -follow up final cultures from [facility] -CT findings shows question of colitis and biliary and pancreatic duct dilation, symptoms do not seem to be abdominal suspect not cause of presentation -for now continue ceftriaxone, and flagyl, but if improved likely dc flagyl -if develops abdominal symptoms can do MRCP 3. Elevated liver enzymes -hepatitis panel ordered -consider MRCP -amonia ordered and negative 4. Probable cardiac demand ischemia -troponins mildly elevated -she denies chest pain and sob -troponins downtrending -not indicated for echo currently 5. anion gap metabolic acidosis -lactate normal, renal function normal -given BMI with 15.8, she has severe protein calorie malnutrition -suspect she may have fasting ketosis -check ketones -dieticiain consult 6. Tachycardia -has runs of SVT and sinus tachycardia -possibly secondary to stopping metop vs possible electrolye abnormality -restart metop and replete potassium -consider echo if not improved COVID-19 COVID-19 status: Negative Result date/Date tested (Pos, Neg/Pending): 03/28/22 Time Spent With Patient Critical Care time: I spent a total of [] minutes of critical care time on this patient's care today; this time is exclusive of procedural time. Quality VTE Deep Vein Thrombosis/Pulmonary Embolism Present on Admission: No
[2022-03-29 22:50] LABS: Magnesium 1.6 mg/dL (1.6-2.3)
[2022-03-30] VITALS (8 sets, daily range): BP systolic 144–163; BP diastolic 81–94; PULSE 72–114; RESP 12–18; TEMP 35.9–36.8; O2SAT 96–99
[2022-03-30] MEDS: OXYCODONE IR 5 MG TABLET PO ×2 (00:14→05:27)
[2022-03-30] MEDS: ACETAMINOPHEN 325 MG TABLET 650 MG PO ×4 (01:03→20:41)
[2022-03-30] MEDS: metroNIDAZOLE 500 MG/100 ML PIGGYBACK 100 MG IV ×3 (02:55→13:44)
[2022-03-30 05:39] LABS: Add Manual Diff / Slide Review NO; Basophils Absolute Auto 100 /uL (0-100); Eosinophils Absolute Auto 200 /uL (0-450); Eosinophils Percent Auto 1.8 % (2-4); Hematocrit 26.9 % (36-46); Hemoglobin 9.2 g/dL (12.0-16.0); Lymphocytes Absolute Auto 2700 /uL (1100-4500); Lymphocytes Percent Auto 30.7 % (25-40); Mean Corpuscular HGB Conc 34.1 % (30-36); Mean Corpuscular Hemoglobin 33.5 PG (26-34); Mean Corpuscular Volume 98.2 fL (80-100); Monocytes Absolute Auto 700 /uL (0-900); Monocytes Percent Auto 7.4 % (3-14); Neutrophils Absolute Auto 5300 /uL (1500-7000); Neutrophils Percent Auto 59.1 % (50-75); Platelet Count 470 X10^3/uL (150-400); Red Blood Cell Count 2.74 X10^6/uL (4.0-5.2); Red Cell Distribution Width 17.7 % (11.6-14.8); White Blood Cell Count 8.9 X10^3/uL (4.5-11.0)
[2022-03-30 07:13] LABS: Blood Urea Nitrogen 15 mg/dL (7-17); Calcium 8.4 mg/dL (8.4-10.2); Carbon Dioxide 19 mmol/L (22-32); Chloride 115 mmol/L (98-107); Estimated Glomerular Filt Rate > 60 mL/min (>60); Glucose 107 mg/dL (80-110); HEMOLYSIS < 15 (0-50); Magnesium 1.6 mg/dL (1.6-2.3); Potassium 3.5 mmol/L (3.4-5.1); Sodium 141 mmol/L (137-145)
[2022-03-30 07:24] LABS: HBsAg Screen Negative (Negative); Hepatitis A Antibody IgM Negative (Negative); Hepatitis B Core Antibody IgM Negative (Negative); Hepatitis C Antibody <0.1 s/co ratio (0.0-0.9)
[2022-03-30] MEDS: SODIUM CHLORIDE 0.9% 1,000 ML 150 ML IV ×3 (08:09→23:52)
[2022-03-30] MEDS: SODIUM CHLORIDE 0.9% FLUSH 10 ML IV ×2 (08:10→20:51)
[2022-03-30] MEDS: ENOXAPARIN 40 MG/0.4 ML SYRINGE SUBCUT (08:10)
[2022-03-30] MEDS: METOPROLOL IR 25 MG TABLET PO ×2 (08:10→20:41)
[2022-03-30] MEDS: MAGNESIUM CHLORIDE 64 MG TABLET 128 MG PO (11:55)
[2022-03-30] MEDS: POTASSIUM CHLORIDE 20 MEQ TAB PO (11:55)
--- NOTE | 2022-03-30 13:19 | DIET.CONS ---
Dietary Consultation Note Admission Date: 03/28/2022 20:24 Assessment: 71 y/o F treated for acute toxic metabolic encephalopathy and UTI. RD consulted for BMi 15.8. PMH of CKD3, frequent UTI and falls. H/o opiate and amphetamine use. GFR: 53 L and Cr 0.94. Emani reports adequate PO prior to 2 weeks ago. States she has been out of it for two weeks. States she is unclear of how much or if she has been eating recently. States her stomach feels smaller and is unable to eat her usual amount. States she has h/o losing weight quickly when not eating adequately. UA positive for ketones, supporting likelihood of inadequate intake. Usually drinks ONS BID, prior to the last two weeks. NFPE: temporal scooping, slight protrusion of clavicle and depressed interosseous indicating moderate muscle wasting Very low BMI 15.8 (severe) -9.5kg in two weeks per report, indicating a 19% loss in two weeks (severe). Difficult to confirm recent weight hx. Last EMR wt from 03/2021 of 49.8kg. Last year, RD diagnosed her with malnutrition r/t loss of appetite during her October admission. Ht: 160.02 cm Wt: 40.5 kg BMI: 15.7 UBW: 50kg Last BM: () MNA: Jaswant Score: 13 Diet: 03/28/22 Breakfast Heart Healthy Diet Diet Modifications: Nutrition Percent Meal Consumed 50% 03/30/22 09:00 Percent Meal Consumed 5% 03/29/22 18:37 Labs: RBC 2.74 X10^6/uL (4.0-5.2) L 03/30/22 05:20 Hgb 9.2 g/dL (12.0-16.0) L 03/30/22 05:20 Hct 26.9 % (36-46) L 03/30/22 05:20 Creatinine 0.94 mg/dL (0.52-1.04) 03/30/22 05:20 Lactate 0.8 mmol/L (0.7-2.1) 03/28/22 15:07 Nutrition Diagnosis: Acute on chronic severe protein calorie malnutrition r/t inadequate intake over the last two weeks aeb 19% weight loss over 2 weeks, + ketones, very low BMI, positive nutrition focused physical exam indicating muscle wasting, Interventions: Ensure Enlive BID to support kcal and pro needs EER: 1620 kcals (40kcal/kg per BMI) 40-50g (1-1.2g/kg per malnutrition and CKD) Monitoring/Evaluations: ONS tolerance, PO, weight Electronically Signed by: Griselda Ambrosio 03/30/22 13:19 Clinical Dietitian [address] [address]
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
[2022-03-30] MEDS: OXYCODONE IR 5 MG TABLET 10 MG PO ×2 (16:14→20:41)
--- NOTE | 2022-03-30 16:14 | PT.IIE ---
Current Diagnoses Unspecified toxic encephalopathy (03/28/22) Surgical History (Last Reviewed 03/28/22 @ 22:23 by NICOLE Castro) H/O: hysterectomy History of surgery Hx of appendectomy Hx of cholecystectomy Hx of elbow surgery Hx of kyphoplasty (~2013) Hx of kyphoplasty (04/28/19) Hx of kyphoplasty (07/28/19) Hx of tonsillectomy Status post epidural steroid injection (03/25/19) Medical History (Last Reviewed 03/28/22 @ 22:23 by NICOLE Castro) Anxiety Arthritis C. difficile colitis Chronic pain Colitis Compression fracture of L1 vertebra (~07/2019) COPD (chronic obstructive pulmonary disease) Depression DJD (degenerative joint disease) Fibromyalgia Fracture, tibia GI bleeding History of osteomyelitis History of recurrent UTIs HLD (hyperlipidemia) Hypertension Hypertension Insomnia Iron (Fe) deficiency anemia Left foot drop Lumbar compression fracture (02/26/19) Migraines Multiple fractures Nephrolithiasis Neuropathy Numbness and tingling Osteoporosis Osteoporosis Peptic ulcer disease Pre-diabetes Radius fracture (08/30/17) Renal disease Stage 3 chronic kidney disease Physical Therapy Inpatient Evaluation/Re-Eval M1 PT/OT-IP Prior Functional Status Start: 03/30/22 16:23 Freq: NEEDED Status: Active Protocol: Document 03/30/22 16:14 DL (Rec: 03/30/22 16:53 DL [id number]) Medical Review Prior Functional Status Medical History Reviewed Yes Diet/Fluid Consistency Regular Communication WFL, wears glasses Mobility and Gait Ambulates holding furniture or hep of S.O at home. Pt has used a FWW in the past but does not like to use one. Pt reports she was told by her physician not to use a fWW. Pt mostly ambulates in the house , she reports she does not go out much Activities of Daily Living and IADL's Assisted with ADL's by S.O or [employer] caregiver. Prior Functional Level (Other details) She has [employer] caregiver M-F. Pt also reports her Son helps her at home. Pt reports her S. O. does not work at this time. Social History Household Members significant other,children Living Arrangements House Number of Floors (Floors) One Floor Number of Stairs To Enter/Railing? 3 without rail M2 PT-IP Current Condition Start: 03/30/22 16:23 Freq: NEEDED Status: Active Protocol: Document 03/30/22 16:14 DLM (Rec: 03/30/22 16:53 DL [id number]) Physical Therapy Current Condition Current Condition Evaluation Date 03/30/22 Treatment Diagnosis AMS, UTI, impaired mobility Onset Date 03/28/22 M3 PT-IP Subjective Start: 03/30/22 16:23 Freq: NEEDED Status: Active Protocol: Document 03/30/22 16:14 DLM (Rec: 03/30/22 16:53 DL [id number]) Subjective Physical Therapy Visit Type Type Initial Evaluation Visit Start Time 15:40 Visit Stop Time 16:14 Total Visit Minutes 34 Number of LOADER ENGINEER Visits 0 Physical Therapy Visit Comments Patient Comments She reports feeling better and hopes to go home tomorrow. Patient Goals she wants to go home M4 PT-IP Mobility and Gait Start: 03/30/22 16:23 Freq: NEEDED Status: Active Protocol: Document 03/30/22 16:14 DLM (Rec: 03/30/22 16:53 DL [id number]) PT-Bed Mobility Assessment Rolling Level of Assist Independent Supine to Sit Supine to Sit Minimal Assistance Sit to Supine Sit to Supine Standby Assistance Scooting Scooting to Edge of Bed Independent PT-Transfer Assessment Sit to and From Stand Sit to and from Stand Contact Guard Assistance Equipment Transfer Assistive Device Gait Belt Transfers Transfer Destination Bed Transfer Technique Stand Step Pivot Transfer Ability Level of Assist Contact Guard Assistance Comments Mobility Comments she declined to use the FWW this visit reporting she was told not to use it, a second person was presen today to help with the IV pole Gait Assessment Gait Gait Assistance Required: Contact Guard Assist,Minimum Assistance Distance (Feet) 25 Assistive Devices Assistive Device Gait Belt Gait Deviations General Gait Pattern Narrow Based Gait Factors Limiting Gait Function Factors Limiting Gait Function Decreased Activity Tolerance, Pain,Poor Balance Comments Gait Comments she prefers to reach out for furniture support or hand held assist from the therapist, she performed 3 reps of gait in the room with seated rests between, she declined gait in the khan PT-Balance Assessment Sitting Balance and Reactions Static Sitting Balance Ability Good Dynamic Sitting Balance Ability Good Standing Balance and Reactions Static Standing Balance Ability Good Dynamic Standing Balance Ability Fair Device Used none M5 PT-IP Objective Assessments Start: 03/30/22 16:23 Freq: NEEDED Status: Active Protocol: Document 03/30/22 16:14 DLM (Rec: 03/30/22 16:53 [facility] [id number]) Orientation Orientation/Cognition Level of Alertness Alert Orientation Name,Birthday,Day of Week, Place,Situation Language Function Ability No Deficits Noted Safety Awareness Decreased Safety Awareness Memory Description Short Term Impaired Gross Range of Motion Upper Extremity ROM Assessment Right Impaired Impairments right elbow does not fully extend, lacking about 25 degrees following fx Lower Extremity ROM Assessment Within Functional Limits Impairments stiffness left ankle following fx and orthopedic surgery Strength Upper Extremity Strength Assessment Right Impaired Elbow extension 3+/5 Lower Extremity Strength Assessment Within Functional Limits Coordination Assessment Gross Coordination Gross Coordination WNL Sensation Assessment Sensation Gross Sensation Right LE Impaired,Left LE Impaired Sensation Description Numbness,Tingling Comments Sensation Comments impairments in feet, hx neuropathy Muscle Tone Muscle Tone WNL Yes M6 PT-IP Treatment Start: 03/30/22 16:23 Freq: NEEDED Status: Active Protocol: Document 03/30/22 16:14 DLM (Rec: 03/30/22 16:53 [facility] [id number]) Physical Therapy Treatment Education Education Provided Safety M7 PT-IP Assessment and Plan Start: 03/30/22 16:23 Freq: NEEDED Status: Active Protocol: Document 03/30/22 16:14 DLM (Rec: 03/30/22 16:53 [facility] [id number]) PT Summary Assessment and Plan Potential Rehabilitation Potential Good Summary Impairments Pain,ROM,Strength,Balance, Cognition,Bed Mobility, Transfers,Gait,Activity Tolerance Assessment Summary Bebe is alert and resting in bed. She is eager to return home. She tolerated gait in the room well with CG/min assist. She declined to use the FWW today. She had mild light-headedness with initial sitting/standing but it resolved quickly and did not prevent activity progression. She describes getting fatigued with gait and requests seated rest breaks between gait trials. Pt returned to bed to rest after activity. She has an extensive hx of falls and fall precautions will be needed to manage her fall risks. She mobility appears safe to discharge home with her caregivers to assist. Pt agrees to home health physical therapy to continue to assist in her recovery including gait safety and activity tolerance. Goals Bed Mobility Goal Independent Transfer Goal Standby Assistance Gait Goal Standby Assistance,Front Wheel Walker Gait Distance 100 feet Other Goals up/down 3 steps without rail with min assist Days to Meet Goals 3 Frequency of Treatment Frequency Of Treatment Twice a Day Treatment Plan Physical Therapy Treatment Plan Bed Mobility Training,Transfer Training,Gait Training, Therapeutic Exercise,Balance Retraining,Discharge Planning, Neuromuscular Re-ed Other Recommendations and Next Treatment will try a FWW for gait but if Focus pt is not willing will trial devices that decrease her fall risks Recommendations To Nursing Amount of Assist Needed 1 Person Assist Discharge Recommendations PT Discharge Recommendations Home with 11/03 Assist Available,Home Health Transportation Needs at Discharge Private Vehicle
--- NOTE | 2022-03-30 17:02 | PC.NURSE ---
Pt is AxOx2-3, needs 2 person assistance and cooperative. Pt is on RA and c/o pain on her back; it is chronic pain. Pt recieved PRN Tylenon 650 and Oxy 10mg PO with good effect. Pt is eating fine and resting. Pt did not get OOB today but worked with PT/OT. Pt has purewick on and it draining clear, yellow urine. NO BM today. Continue monitor.
--- NOTE | 2022-03-30 17:45 | PM.PN.1 ---
Subjective Subjective Date Patient Seen: 03/30/22 Interval history: 71-year-old female with CKD 3, pre diabetes, peptic ulcer disease, hypertension, hyperlipidemia, COPD, DJD, and chronic pain syndrome was admitted with acute metabolic encephalopathy secondary to Klebsiella pneumonia UTI. Patient was originally noted to be altered by her caregiver and presented to the [facility] Emergency Department on March 27. There were no beds available and she could not be admitted. By March 28, she appeared improved and was ultimately discharged from the emergency department. Urine cultures grew Klebsiella which was resistant to ampicillin and intermediately sensitive to nitrofurantoin. At the time of her visit her creatinine was elevated at 1.7. She had an anion gap of 15. Her son picked her up on March 28 and brought her home. From there, the story become somewhat confusing but it sounds as though with in a couple of hours of returning home, EMS was called for altered mental status and she presented to [facility]. She is now hospital day 2. She reports a history of frequent urinary tract infections as a child and having had ureteral reflux. She states she was having some dysuria intermittently over the past month or so but was not able to get a urine analysis done as she was only having telehealth visits with her physician. Today, she reports she is feeling significantly improved. She denies any shortness of breath. She is having pain and is asking that her oxycodone be given every 4 hours versus her usual every 6 hours. Exam Vital Signs (past 8 hours): - 03/30/22 12:01 03/30/22 12:00 Temperature 97.4 F L Pulse Rate 72 Respiratory Rate 17 Blood Pressure 147/94 H Pulse Oximetry 98 Oxygen Delivery Method Room Air Oxygen Flow Rate 0 Oxygen Delivery Method Room Air Oxygen Flow Rate 0 Narrative Exam Narrative: GEN: Pleasant middle-aged female, Alert and oriented x 3, NAD HEENT:NC, Face symmetric CHEST: Respiratory excursions symmetric, CTAB CV: RRR, 2-3/6 systolic murmur heard best at the left sternal border, no rubs or gallops ABD: Soft, NT/ND, BT present in all 4 quadrants, no organomegaly or masses EXTR: warm, well perfused, no C/C/E SKIN: warm and dry, no rash NEURO: Alert and oriented x 3, nonfocal Objective Labs Result Diagrams: 03/30/22 05:20 03/30/22 05:20 Labs: Laboratory Results - last 24 hr 03/29/22 03/29/22 03/29/22 14:15 14:15 14:15 WBC RBC Hgb Hct MCV MCH MCHC RDW Plt Count Neut % (Auto) Lymph % (Auto) [place] % (Auto) Eos % (Auto) Baso % (Auto) Neut # (Auto) Lymph # (Auto) [place] # (Auto) Eos # (Auto) Baso # (Auto) Sodium Potassium Chloride Carbon Dioxide BUN Creatinine Estimated GFR BUN/Creatinine Ratio Glucose Calcium Magnesium 1.6 Ketones 4.40 H Hepatitis A IgM Ab Negative Hep Bs Antigen Negative Hep B Core IgM Ab Negative Hepatitis C Antibody <0.1 Hep C Ab Signal/Cutoff Comment 03/30/22 03/30/22 05:20 05:20 WBC 8.9 RBC 2.74 L Hgb 9.2 L Hct 26.9 L MCV 98.2 MCH 33.5 MCHC 34.1 RDW 17.7 H Plt Count 470 H Neut % (Auto) 59.1 Lymph % (Auto) 30.7 [place] % (Auto) 7.4 Eos % (Auto) 1.8 L Baso % (Auto) 1.0 Neut # (Auto) 5300 Lymph # (Auto) 2700 [place] # (Auto) 700 Eos # (Auto) 200 Baso # (Auto) 100 Sodium 141 Potassium 3.5 Chloride 115 H Carbon Dioxide 19 L BUN 15 Creatinine 0.94 Estimated GFR > 60 BUN/Creatinine Ratio 16.0 Glucose 107 Calcium 8.4 Magnesium 1.6 Ketones Hepatitis A IgM Ab Hep Bs Antigen Hep B Core IgM Ab Hepatitis C Antibody Hep C Ab Signal/Cutoff [facility] Medical History Anxiety Arthritis C. difficile colitis Chronic pain Colitis Compression fracture of L1 vertebra (~07/2019) COPD (chronic obstructive pulmonary disease) Depression DJD (degenerative joint disease) Fibromyalgia Fracture, tibia GI bleeding History of osteomyelitis History of recurrent UTIs HLD (hyperlipidemia) Hypertension Hypertension Insomnia Iron (Fe) deficiency anemia Left foot drop Lumbar compression fracture (02/26/19) Migraines Multiple fractures Nephrolithiasis Neuropathy Numbness and tingling Osteoporosis Osteoporosis Peptic ulcer disease Pre-diabetes Radius fracture (08/30/17) Renal disease Stage 3 chronic kidney disease Surgical History H/O: hysterectomy History of surgery Hx of appendectomy Hx of cholecystectomy Hx of elbow surgery Hx of kyphoplasty (~2013) Hx of kyphoplasty (04/28/19) Hx of kyphoplasty (07/28/19) Hx of tonsillectomy Status post epidural steroid injection (03/25/19) Family History Mother No known health problems COPD (chronic obstructive pulmonary disease) Father No known health problems Social History household members: significant other and children Smoking Status: Former smoker alcohol intake: current Assessment & Plan Assessment & Plan narrative: 1. Acute metabolic encephalopathy Likely secondary to UTI. She is significantly improved with treatment. Appears to be back to baseline. 2. Klebsiella pneumonia UTI As noted, resistant to ampicillin and intermediately sensitive to nitrofurantoin. Continues on IV Rocephin. She does have a history of ureteral reflux as a child. 3. Transaminitis Hepatitis panel pending. Will repeat LFTs tomorrow. 4. Presumed cardiac demand ischemia Troponins were mildly elevated. They have been trending down. She has not had any chest pain or other cardiac symptoms. 5. Anion gap metabolic acidosis Overall improving. Ketones were elevated, likely consistent with starvation ketosis. Continuing to improve. Anion gap has closed. 6. Tachycardia Was felt likely to be secondary to potential hypokalemia and its rebound tachycardia from stopping metoprolol. It has now resolved. 7. CKD 3 GFR at baseline is 40s to 50s. Presently greater than 60. Will monitor. 8. Pre diabetes Blood sugars are improving. Will need outpatient follow-up. 9. Peptic ulcer disease Untreated at baseline. Asymptomatic. 10. Hypertension Improved back on her metoprolol. 11. Hyperlipidemia Untreated at baseline. 12. COPD No evidence for exacerbation. 13. DJD and chronic pain syndrome Will increase oxycodone temporarily to 10 mg every 4 hours as needed for pain while in the hospital. Code status Full Prophylaxis On Lovenox Disposition PT OT assessments in progress. Likely home with caregiver at discharge. Time Spent With Patient Critical Care time: I spent a total of [] minutes of critical care time on this patient's care today; this time is exclusive of procedural time. Quality VTE Deep Vein Thrombosis/Pulmonary Embolism Present on Admission: No
[2022-03-30] MEDS: cefTRIAXone 1,000 MG in SODIUM CHLORIDE 0.9% 100 ML 200 MG IV (18:01)
[2022-03-31] VITALS (8 sets, daily range): BP systolic 154–171; BP diastolic 86–99; PULSE 68–107; RESP 16–17; TEMP 36–36.5; O2SAT 93–99
[2022-03-31] MEDS: OXYCODONE IR 5 MG TABLET 10 MG PO ×6 (00:57→22:28)
[2022-03-31 06:38] LABS: Add Manual Diff / Slide Review NO; Basophils Absolute Auto 100 /uL (0-100); Basophils Percent Auto 1.4 % (0-2); Eosinophils Absolute Auto 300 /uL (0-450); Eosinophils Percent Auto 3.7 % (2-4); Hematocrit 27.2 % (36-46); Hemoglobin 9.3 g/dL (12.0-16.0); Lymphocytes Absolute Auto 2700 /uL (1100-4500); Lymphocytes Percent Auto 36.6 % (25-40); Mean Corpuscular HGB Conc 34.1 % (30-36); Mean Corpuscular Hemoglobin 33.6 PG (26-34); Mean Corpuscular Volume 98.6 fL (80-100); Monocytes Absolute Auto 600 /uL (0-900); Monocytes Percent Auto 8.6 % (3-14); Neutrophils Absolute Auto 3700 /uL (1500-7000); Neutrophils Percent Auto 49.7 % (50-75); Platelet Count 444 X10^3/uL (150-400); Red Blood Cell Count 2.76 X10^6/uL (4.0-5.2); Red Cell Distribution Width 17.6 % (11.6-14.8); White Blood Cell Count 7.5 X10^3/uL (4.5-11.0)
[2022-03-31] MEDS: SODIUM CHLORIDE 0.9% 1,000 ML 150 ML IV (06:39)
[2022-03-31 06:51] LABS: Magnesium 1.3 mg/dL (1.6-2.3)
[2022-03-31 06:52] LABS: Alanine Aminotransferase 28 IU/L (<35); Albumin 3.4 g/dL (3.5-5.0); Albumin Globulin Ratio 1.2 (1.0-2.8); Alkaline Phosphatase 97 U/L (38-126); Aspartate Aminotransferase 40 IU/L (14-36); BUN Creatinine Ratio 16.5 (6-22); Bilirubin Total 0.3 mg/dL (0.2-1.3); Blood Urea Nitrogen 14 mg/dL (7-17); Calcium 8.1 mg/dL (8.4-10.2); Carbon Dioxide 24 mmol/L (22-32); Chloride 109 mmol/L (98-107); Estimated Glomerular Filt Rate > 60 mL/min (>60); Globulin 2.9 g/dL (1.7-4.1); Glucose 109 mg/dL (80-110); HEMOLYSIS < 15 (0-50); Sodium 138 mmol/L (137-145); Total Protein 6.3 g/dL (6.3-8.2)
--- NOTE | 2022-03-31 07:19 | P.PN_ITS ---
Subjective Subjective Date Patient Seen: 03/31/22 Interval history: 71-year-old female with CKD 3, pre diabetes, peptic ulcer disease, hypertension, hyperlipidemia, COPD, DJD, and chronic pain syndrome was admitted with acute metabolic encephalopathy secondary to Klebsiella pneumonia UTI.? Patient was originally noted to be altered by her caregiver and presented to the [facility] Emergency Department on March 27.? There were no beds available and she could not be admitted.? By March 28, she appeared improved and was ultimately discharged from the emergency department.? Urine cultures grew Klebsiella which was resistant to ampicillin and intermediately sensitive to nitrofurantoin.? At the time of her visit her creatinine was elevated at 1.7.? She had an anion gap of 15.? Her son picked her up on March 28 and brought her home.? From there, the story become somewhat confusing but it sounds as though with in a couple of hours of returning home, EMS was called for altered mental status and she presented to [facility].? She is now hospital day 2. She reports a history of frequent urinary tract infections as a child and having had ureteral reflux.? She states she was having some dysuria intermittently over the past month or so but was not able to get a urine analysis done as she was only having telehealth visits with her physician.? Patient reports she is feeling quite good today. She states she feels better overall. No shortness of breath. She feels having her meds increase to every 4 hours from every 6 hours has been helpful. States her appetite is intact but notes she has lost significant weight since the onset of her symptoms. She has not been very active in the hospital. IV fluids were saline locked today. She states she did have a large bowel movement yesterday. Exam Vital Signs (past 8 hours): - 03/31/22 00:00 03/31/22 05:10 Temperature 97.7 F Pulse Rate 95 H Respiratory Rate 17 Blood Pressure 171/91 H Pulse Oximetry 97 98 Oxygen Delivery Method Room Air Oxygen Flow Rate 0 Oxygen Delivery Method Room Air Oxygen Flow Rate 0 Narrative Exam Narrative: GEN:? Pleasant middle-aged female, Alert and oriented x 3, NAD HEENT:NC, Face symmetric CHEST: Respiratory excursions symmetric, mild left basilar crackles, otherwise clear to auscultation bilaterally CV: RRR, no murmurs, rubs, or gallops ABD: Soft, NT/ND, BT present in all 4 quadrants, no organomegaly or masses EXTR: warm, well perfused, no C/C/E SKIN: warm and dry, no rash NEURO: Alert and oriented x 3, nonfocal Objective Labs Result Diagrams: 03/31/22 06:30 03/31/22 06:30 Labs: Laboratory Results - last 24 hr 03/29/22 03/30/22 03/31/22 14:15 05:20 06:30 WBC 7.5 RBC 2.76 L Hgb 9.3 L Hct 27.2 L MCV 98.6 MCH 33.6 MCHC 34.1 RDW 17.6 H Plt Count 444 H Neut % (Auto) 49.7 L Lymph % (Auto) 36.6 [place] % (Auto) 8.6 Eos % (Auto) 3.7 Baso % (Auto) 1.4 Neut # (Auto) 3700 Lymph # (Auto) 2700 [place] # (Auto) 600 Eos # (Auto) 300 Baso # (Auto) 100 Sodium 141 Potassium 3.5 Chloride 115 H Carbon Dioxide 19 L BUN 15 Creatinine 0.94 Estimated GFR > 60 BUN/Creatinine Ratio 16.0 Glucose 107 Calcium 8.4 Magnesium 1.6 Total Bilirubin AST ALT Alkaline Phosphatase Total Protein Albumin Globulin Albumin/Globulin Ratio Hepatitis A IgM Ab Negative Hep Bs Antigen Negative Hep B Core IgM Ab Negative Hepatitis C Antibody <0.1 Hep C Ab Signal/Cutoff Comment 03/31/22 03/31/22 06:30 06:30 WBC RBC Hgb Hct MCV MCH MCHC RDW Plt Count Neut % (Auto) Lymph % (Auto) [place] % (Auto) Eos % (Auto) Baso % (Auto) Neut # (Auto) Lymph # (Auto) [place] # (Auto) Eos # (Auto) Baso # (Auto) Sodium 138 Potassium 3.0 L Chloride 109 H Carbon Dioxide 24 BUN 14 Creatinine 0.85 Estimated GFR > 60 BUN/Creatinine Ratio 16.5 Glucose 109 Calcium 8.1 L Magnesium 1.3 L Total Bilirubin 0.3 AST 40 H ALT 28 Alkaline Phosphatase 97 Total Protein 6.3 Albumin 3.4 L Globulin 2.9 Albumin/Globulin Ratio 1.2 Hepatitis A IgM Ab Hep Bs Antigen Hep B Core IgM Ab Hepatitis C Antibody Hep C Ab Signal/Cutoff [facility] Medical History Anxiety Arthritis C. difficile colitis Chronic pain Colitis Compression fracture of L1 vertebra (~07/2019) COPD (chronic obstructive pulmonary disease) Depression DJD (degenerative joint disease) Fibromyalgia Fracture, tibia GI bleeding History of osteomyelitis History of recurrent UTIs HLD (hyperlipidemia) Hypertension Hypertension Insomnia Iron (Fe) deficiency anemia Left foot drop Lumbar compression fracture (02/26/19) Migraines Multiple fractures Nephrolithiasis Neuropathy Numbness and tingling Osteoporosis Osteoporosis Peptic ulcer disease Pre-diabetes Radius fracture (08/30/17) Renal disease Stage 3 chronic kidney disease Surgical History H/O: hysterectomy History of surgery Hx of appendectomy Hx of cholecystectomy Hx of elbow surgery Hx of kyphoplasty (~2013) Hx of kyphoplasty (04/28/19) Hx of kyphoplasty (07/28/19) Hx of tonsillectomy Status post epidural steroid injection (03/25/19) Family History Mother No known health problems COPD (chronic obstructive pulmonary disease) Father No known health problems Social History household members: significant other and children Smoking Status: Former smoker alcohol intake: current Assessment & Plan Assessment & Plan narrative: 1. Acute metabolic encephalopathy Likely secondary to UTI.? She is significantly improved with treatment.? Appears to be back to baseline. 2. Klebsiella pneumonia UTI As noted, resistant to ampicillin and intermediately sensitive to nitrofurantoin.? Continues on IV Rocephin.? She does have a history of ureteral reflux as a child. Will plan to discharge home with oral antibiotics 3. Transaminitis Improving. AST is down to 40. ALT has normalized. Hepatitis panel is negati ve. 4. Presumed cardiac demand ischemia Troponins were mildly elevated.? They have been trending down.? She has not had any chest pain or other cardiac symptoms. 5. Anion gap metabolic acidosis Overall improving.? Ketones were elevated, likely consistent with starvation ketosis.? Continuing to improve.? Anion gap has closed. 6. Hypokalemia Will replete orally and recheck in the morning. 7. Hypomagnesium Will replete orally and recheck in the morning. 8. CKD 3 GFR at baseline is 40s to 50s.? Presently greater than 60.? Will monitor. 9. Pre diabetes Blood sugars are improving.? Will need outpatient follow-up. 10. Peptic ulcer disease Untreated at baseline.? Asymptomatic. 10. Hypertension Improved back on her metoprolol. 11. Hyperlipidemia Untreated at baseline. 12. COPD No evidence for exacerbation. 13. DJD and chronic pain syndrome Will increase oxycodone temporarily to 10 mg every 4 hours as needed for pain while in the hospital. Resolved issues: Acute metabolic encephalopathy Sinus tachycardia Code status Full Prophylaxis On Lovenox Disposition PT OT assessments completed with recommendation for 24 hour supervision and home health. She does get 5 hours daily of caregiving Saturday through Saturday, lives with her son. Anticipate discharge home tomorrow. Time Spent With Patient Critical Care time: I spent a total of [] minutes of critical care time on this patient's care today; this time is exclusive of procedural time. Quality VTE Deep Vein Thrombosis/Pulmonary Embolism Present on Admission: No
[2022-03-31] MEDS: ENOXAPARIN 40 MG/0.4 ML SYRINGE SUBCUT (08:30)
[2022-03-31] MEDS: METOPROLOL IR 25 MG TABLET PO ×2 (08:31→21:23)
[2022-03-31] MEDS: SODIUM CHLORIDE 0.9% FLUSH 10 ML IV ×2 (08:31→21:23)
[2022-03-31] MEDS: ACETAMINOPHEN 325 MG TABLET 650 MG PO ×2 (09:13→18:02)
[2022-03-31] MEDS: MAGNESIUM OXIDE 400 MG TABLET PO ×2 (09:13→21:23)
[2022-03-31] MEDS: POTASSIUM CHLORIDE 20 MEQ TAB PO ×2 (09:14→17:08)
--- NOTE | 2022-03-31 10:44 | PT.IPTN ---
Current Diagnoses Unspecified toxic encephalopathy (03/28/22) Physical Therapy Treatment Note M2 PT-IP Current Condition Start: 03/30/22 16:23 Freq: NEEDED Status: Active Protocol: Document 03/30/22 16:14 DLM (Rec: 03/30/22 16:53 DLM [id number]) Physical Therapy Current Condition Current Condition Evaluation Date 03/30/22 Treatment Diagnosis AMS, UTI, impaired mobility Onset Date 03/28/22 M3 PT-IP Subjective Start: 03/30/22 16:23 Freq: NEEDED Status: Active Protocol: Document 03/31/22 10:24 KS (Rec: 03/31/22 11:46 KS [id number]) Subjective Physical Therapy Visit Type Type Treatment Note Visit Start Time 10:24 Visit Stop Time 10:44 Total Visit Minutes 20 Number of [employer] Visits 1 Physical Therapy Visit Comments Patient Comments Pt reports feeling well. Patient Goals she wants to go home M4 PT-IP Mobility and Gait Start: 03/30/22 16:23 Freq: NEEDED Status: Active Protocol: Document 03/31/22 10:24 KS (Rec: 03/31/22 11:46 KS [id number]) PT-Bed Mobility Assessment Rolling Level of Assist Independent Supine to Sit Supine to Sit Standby Assistance Sit to Supine Sit to Supine Independent Scooting Scooting to Edge of Bed Independent PT-Transfer Assessment Sit to and From Stand Sit to and from Stand Standby Assistance,1 Person Assistance,Use of Upper Extremities Equipment Transfer Assistive Device Gait Belt,Front Wheeled Walker Transfers Transfer Destination Bed Transfer Technique Pt ambulated w/ FWW Transfer Ability Level of Assist Standby Assistance,Contact Guard Assistance Comments Mobility Comments Pt in bed upon arrival and agreeable to ambulate. Pt moving independently in bed, SBA for sup<>sit and sit<> stand w/ FWW. Pt then ambulated ~150 ft w/ FWW CGA w /o any LOB and w/ good use of FWW. Pt then returned to room and bed SBA. Left in bed w/ all needs in reach. Gait Assessment Gait Gait Assistance Required: Contact Guard Assist Distance (Feet) 150 Assistive Devices Assistive Device Gait Belt,Front Wheeled Walker Gait Deviations General Gait Pattern Narrow Based Gait Factors Limiting Gait Function Factors Limiting Gait Function Decreased Activity Tolerance, Poor Balance Comments Gait Comments Pt ambulated well overall w/ FWW and was able to tolerate 150 ft w/ 1x standing rest break. States she has FWW to use at home. Refused stair training stating me and stairs don't get along and offers that her son practically carries her up 3 steps to enter home and she feels safe w/ him assisting her but does not want to practice in hospital. Stair Climbing Assessment Comments Stair Climbing Comments Refused stair training stating me and stairs don't get along and offers that her son practically carries her up 3 steps to enter home and she feels safe w/ him assisting her but does not want to practice in hospital. PT-Balance Assessment Sitting Balance and Reactions Static Sitting Balance Ability Good Dynamic Sitting Balance Ability Good Standing Balance and Reactions Static Standing Balance Ability Good Dynamic Standing Balance Ability Good Device Used FWW M5 PT-IP Objective Assessments Start: 03/30/22 16:23 Freq: NEEDED Status: Active Protocol: Document 03/30/22 16:14 DLM (Rec: 03/30/22 16:53 DLM [id number]) Orientation Orientation/Cognition Level of Alertness Alert Orientation Name,Birthday,Day of Week, Place,Situation Language Function Ability No Deficits Noted Safety Awareness Decreased Safety Awareness Memory Description Short Term Impaired Gross Range of Motion Upper Extremity ROM Assessment Right Impaired Impairments right elbow does not fully extend, lacking about 25 degrees following fx Lower Extremity ROM Assessment Within Functional Limits Impairments stiffness left ankle following fx and orthopedic surgery Strength Upper Extremity Strength Assessment Right Impaired Elbow extension 3+/5 Lower Extremity Strength Assessment Within Functional Limits Coordination Assessment Gross Coordination Gross Coordination WNL Sensation Assessment Sensation Gross Sensation Right LE Impaired,Left LE Impaired Sensation Description Numbness,Tingling Comments Sensation Comments impairments in feet, hx neuropathy Muscle Tone Muscle Tone WNL Yes M6 PT-IP Treatment Start: 03/30/22 16:23 Freq: NEEDED Status: Active Protocol: Document 03/31/22 10:24 KS (Rec: 03/31/22 11:46 KS [id number]) Physical Therapy Treatment Education Education Provided Safety M7 PT-IP Assessment and Plan Start: 03/30/22 16:23 Freq: NEEDED Status: Active Protocol: Document 03/31/22 10:24 KS (Rec: 03/31/22 11:46 KS [id number]) PT Summary Assessment and Plan Potential Rehabilitation Potential Good Summary Impairments Pain,ROM,Strength,Balance, Cognition,Bed Mobility, Transfers,Gait,Activity Tolerance Assessment Summary Pt continues to be eager to return home, but states wants her to stay until tomorrow. She agreed to use FWW today and ambulated ~150 ft CGA w/ 1x standing rest break. She did refuse stair training, offering she feels comfortable w/ son assisting her w/ 3 YEHUDA home. Due to fall history, pt would benefit from HHPT to improve balance and gait as well as activity tolerance. Goals Bed Mobility Goal Independent Transfer Goal Standby Assistance Gait Goal Standby Assistance,Front Wheel Walker Gait Distance 100 feet Other Goals up/down 3 steps without rail with min assist Days to Meet Goals 3 Frequency of Treatment Frequency Of Treatment Twice a Day Treatment Plan Physical Therapy Treatment Plan Bed Mobility Training,Transfer Training,Gait Training, Therapeutic Exercise,Balance Retraining,Discharge Planning, Neuromuscular Re-ed Other Recommendations and Next Treatment Cont use of FWW for gait if pt Focus agreeable. Trial stair training. Recommendations To Nursing Amount of Assist Needed 1 Person Assist Discharge Recommendations PT Discharge Recommendations Home with 24/ Assist Available,Home Health Transportation Needs at Discharge Private Vehicle
--- NOTE | 2022-03-31 14:26 | PT.IPTN ---
Current Diagnoses Unspecified toxic encephalopathy (03/28/22) Physical Therapy Treatment Note M2 PT-IP Current Condition Start: 03/30/22 16:23 Freq: NEEDED Status: Active Protocol: Document 03/30/22 16:14 DLM (Rec: 03/30/22 16:53 DLM [id number]) Physical Therapy Current Condition Current Condition Evaluation Date 03/30/22 Treatment Diagnosis AMS, UTI, impaired mobility Onset Date 03/28/22 M3 PT-IP Subjective Start: 03/30/22 16:23 Freq: NEEDED Status: Active Protocol: Document 03/31/22 14:07 KS (Rec: 03/31/22 14:38 KS [id number]) Subjective Physical Therapy Visit Type Type Treatment Note Visit Start Time 14:07 Visit Stop Time 14:26 Total Visit Minutes 19 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 Patient Goals she wants to go home M4 PT-IP Mobility and Gait Start: 03/30/22 16:23 Freq: NEEDED Status: Active Protocol: Document 03/31/22 14:07 KS (Rec: 03/31/22 14:38 KS [id number]) PT-Bed Mobility Assessment Supine to Sit Supine to Sit Standby Assistance Sit to Supine Sit to Supine Independent Scooting Scooting to Edge of Bed Independent PT-Transfer Assessment Sit to and From Stand Sit to and from Stand Standby Assistance,1 Person Assistance,Use of Upper Extremities Equipment Transfer Assistive Device Gait Belt,Front Wheeled Walker Transfers Transfer Destination Bed Transfer Technique Pt ambulated w/ FWW Transfer Ability Level of Assist Standby Assistance,Contact Guard Assistance Comments Mobility Comments Pt in bed upon arrival and agreeable to ambulating. Pt mostly independent for bed mobility, SBA for sit<>stand w / FWW. Pt ambulated ~[address] w/ FWW CGA. She occasionally had some difficulty avoiding obstacles d/t looking around at artwork on [place] and in rooms, but was able to self correct and had no LOB. She did refuse stair training again this PM. Pt returned to room and used bathroom independently before returning to bed. Pt left in bed w/ alarm on and all needs in reach. Gait Assessment Gait Gait Assistance Required: Contact Guard Assist Distance (Feet) 250 Assistive Devices Assistive Device Gait Belt,Front Wheeled Walker Gait Deviations General Gait Pattern Narrow Based Gait Factors Limiting Gait Function Factors Limiting Gait Function Decreased Activity Tolerance, Poor Balance Comments Gait Comments Please refer to mobility section for details. Stair Climbing Assessment Comments Stair Climbing Comments Refused again. PT-Balance Assessment Sitting Balance and Reactions Static Sitting Balance Ability Good Dynamic Sitting Balance Ability Good Standing Balance and Reactions Static Standing Balance Ability Good Dynamic Standing Balance Ability Good Device Used FWW M5 PT-IP Objective Assessments Start: 03/30/22 16:23 Freq: NEEDED Status: Active Protocol: Document 03/30/22 16:14 DL (Rec: 03/30/22 16:53 DL [id number]) Orientation Orientation/Cognition Level of Alertness Alert Orientation Name,Birthday,Day of Week, Place,Situation Language Function Ability No Deficits Noted Safety Awareness Decreased Safety Awareness Memory Description Short Term Impaired Gross Range of Motion Upper Extremity ROM Assessment Right Impaired Impairments right elbow does not fully extend, lacking about 25 degrees following fx Lower Extremity ROM Assessment Within Functional Limits Impairments stiffness left ankle following fx and orthopedic surgery Strength Upper Extremity Strength Assessment Right Impaired Elbow extension 3+/5 Lower Extremity Strength Assessment Within Functional Limits Coordination Assessment Gross Coordination Gross Coordination WNL Sensation Assessment Sensation Gross Sensation Right LE Impaired,Left LE Impaired Sensation Description Numbness,Tingling Comments Sensation Comments impairments in feet, hx neuropathy Muscle Tone Muscle Tone WNL Yes M6 PT-IP Treatment Start: 03/30/22 16:23 Freq: NEEDED Status: Active Protocol: Document 03/31/22 14:07 KS (Rec: 03/31/22 14:38 WY [id number]) Physical Therapy Treatment Education Education Provided Safety M7 PT-IP Assessment and Plan Start: 03/30/22 16:23 Freq: NEEDED Status: Active Protocol: Document 03/31/22 14:07 KS (Rec: 03/31/22 14:38 WY [id number]) PT Summary Assessment and Plan Potential Rehabilitation Potential Good Summary Impairments Pain,ROM,Strength,Balance, Cognition,Bed Mobility, Transfers,Gait,Activity Tolerance Progress Towards Goals Progressing Toward Goals Assessment Summary Pt continues to mobilize well w/ therapy. She ambulated 250 ft w/ FWW CGA today w/ some difficulty avoiding obstacles just due to distraction but was able to correct w/o cues. She had no LOB and needed no rest breaks. She continues to refuse stair training but feels confident in her son assisting her as he normally does at home. She also reports having caregiver but I am uncertain of hours. Due to fall history, pt would benefit from HHPT to improve balance and gait as well as activity tolerance. Goals Bed Mobility Goal Independent Transfer Goal Standby Assistance Gait Goal Standby Assistance,Front Wheel Walker Gait Distance 100 feet Other Goals up/down 3 steps without rail with min assist Days to Meet Goals 3 Frequency of Treatment Frequency Of Treatment Twice a Day Treatment Plan Physical Therapy Treatment Plan Bed Mobility Training,Transfer Training,Gait Training, Therapeutic Exercise,Balance Retraining,Discharge Planning, Neuromuscular Re-ed Other Recommendations and Next Treatment Cont use of FWW for gait if pt Focus agreeable. Trial stair training if pt willing. Recommendations To Nursing Amount of Assist Needed 1 Person Assist Discharge Recommendations PT Discharge Recommendations Home with 11/03 Assist Available,Home Health Transportation Needs at Discharge Private Vehicle
[2022-03-31] MEDS: cefTRIAXone 1,000 MG in SODIUM CHLORIDE 0.9% 100 ML 200 MG IV (17:08)
[2022-04-01] VITALS: O2SAT 97
[2022-04-01] MEDS: OXYCODONE IR 5 MG TABLET 10 MG PO ×3 (02:27→10:36)
[2022-04-01] MEDS: ACETAMINOPHEN 325 MG TABLET 650 MG PO ×2 (02:27→10:36)
[2022-04-01 03:05] VITALS: BP 176/87; PULSE 67; RESP 17; TEMP 36.1; O2SAT 95
[2022-04-01 06:00] VITALS: O2SAT 97
[2022-04-01 06:02] LABS: Add Manual Diff / Slide Review NO; Basophils Absolute Auto 100 /uL (0-100); Basophils Percent Auto 1.2 % (0-2); Eosinophils Absolute Auto 300 /uL (0-450); Eosinophils Percent Auto 3.2 % (2-4); Hematocrit 29.6 % (36-46); Hemoglobin 10.3 g/dL (12.0-16.0); Lymphocytes Absolute Auto 3000 /uL (1100-4500); Lymphocytes Percent Auto 34.2 % (25-40); Mean Corpuscular HGB Conc 34.8 % (30-36); Mean Corpuscular Hemoglobin 33.9 PG (26-34); Mean Corpuscular Volume 97.2 fL (80-100); Monocytes Absolute Auto 600 /uL (0-900); Monocytes Percent Auto 7.4 % (3-14); Neutrophils Absolute Auto 4700 /uL (1500-7000); Platelet Count 494 X10^3/uL (150-400); Red Blood Cell Count 3.05 X10^6/uL (4.0-5.2); Red Cell Distribution Width 17.7 % (11.6-14.8); White Blood Cell Count 8.6 X10^3/uL (4.5-11.0)
[2022-04-01 06:12] LABS: Blood Urea Nitrogen 13 mg/dL (7-17); Calcium 8.9 mg/dL (8.4-10.2); Carbon Dioxide 27 mmol/L (22-32); Chloride 103 mmol/L (98-107); Estimated Glomerular Filt Rate > 60 mL/min (>60); Glucose 113 mg/dL (80-110); HEMOLYSIS < 15 (0-50); Magnesium 1.8 mg/dL (1.6-2.3); Potassium 3.4 mmol/L (3.4-5.1); Sodium 136 mmol/L (137-145)
[2022-04-01] MEDS: POTASSIUM CHLORIDE 20 MEQ TAB PO (08:59)
[2022-04-01 09:02] VITALS: BP 148/83; PULSE 106
[2022-04-01] MEDS: METOPROLOL IR 25 MG TABLET PO (09:05)
[2022-04-01] MEDS: MAGNESIUM OXIDE 400 MG TABLET PO (09:05)
[2022-04-01] MEDS: SODIUM CHLORIDE 0.9% FLUSH 10 ML IV (09:06)
[2022-04-01 10:06] VITALS: BP 142/94; PULSE 112; RESP 16; TEMP 36.3; O2SAT 100
--- NOTE | 2022-04-01 11:18 | PT.IPNOTE ---
Spoke with Pt in AM. She is discharging home today with son. Offered any add'l PT prior to d/c, including stair assessment. Pt politely declined need and expressed how much better she is feeling. Reviewed that she has assist of son and hired caregiver M-F 5 hrs daily.
[2022-04-01 12:00] VITALS: O2SAT 100
--- NOTE | 2022-04-01 15:04 | CM.DPC ---
DCP/continued: Reviewed chart. Per provider patient medically stable to d/c home today. Home health initiated with [facility]. [facility] placed call to notify them of patient's discharge from [facility] today, vm left. Per nursing patient's son expected to provide transport. No additional needs identified. Patient happy to be returning home. P: Home with [facility]. Referral made on 03-31 by JANET Rodriguez update on patient's discharge left on [facility] today prior to d/c. JANET Cheek
--- NOTE | 2022-04-01 15:31 | PC.NURSE ---
Addendum entered by Tri Baltazar R.N. 04/01/22 15:32: 14:00 Pt taken out via wheel chair by RN with all belongings. Original Note: 10:30 Pt dressed and ready for d/c home. Pt to be transported by son via pov. IV and tele removed. Pt denies having prescriptions held at the pharmacy here and denies having valuables kept in the safe. Discussed d/c instructions and education and answered questions.
--- NOTE | 2022-04-01 17:55 | PM.DS.1 ---
History of Present Illness History of Present Illness Chief complaint: Acute toxic metabolic encephalopathy, UTI Narrative: Per admission history and physical: Patient is nonverbally responsive and I have obtained the history from records reviewed at her recent admission and discharge from [facility] and a discussion with Dr. Raymond Rendon who provided me with details on her discharge. Emani Leiva is a 71-year-old female with a history CKD stage 3, frequent urinary tract infections, chronic metabolic acidosis, COPD, thrombocytosis, frequent falls, and chronic pain syndrome with continuous opioid and pharmaceutical amphetamine use who apparently was boarded at [facility] a ED from sometime late in the evening of March 26 and discharged right before noon today on March 28.? At that time she presented with urinary incontinence, non verbal responsiveness, and generalized weakness.? She was hydrated and given a 1 time dose of IV Rocephin.? She slowly over that time became more awake, alert and oriented and was ambulatory at the time of discharge at noon.? Patient has had a history of opiate and amphetamine and polypharmacy.? She takes oxycodone and carispodol regularly for chronic back pain and allegedly EMS had done a welfare check on her home sometime last year and found multiple empty bottles of Robitussin AC under her bed.? She was brought to [place] emergency department sometime before 2:00 p.m. as she was seen at 1356.? Review of her PCP's note indicates that she recently established care with Dr. Jairo Powers on February 16 and due to the number of morphine equivalent medications, they were in the process of weaning her off of opioids to a level where he could manage her without her going to a pain management clinic and [place]. Patient presented as very weak, obtunded, and nonverbal in the ED. her UA was equivocal here however reviewing [facility] is records it met criteria for culture.? Is likely that she was partially responsive to the 1 dose of antibiotic she received at [facility].? Chest x-ray and head CT done in the ED were negative for any acute process.? CT of the abdomen pelvis reported wall thickening of the ascending colon suspicious for colitis, thickened esophagus suspicious for esophagitis or reflux esophagitis, biliary ductal dilatation, and multiple nonobstructing left renal stones as noted in prior studies.? Temperature is currently 98.9?, blood pressure 145/71, heart rate 83, respiratory rate 16, oxygen saturation of 98% on room air, she weighs 40.5 kg with a BMI of 15.7.? She has a mild anemia of hemoglobin and hematocrit of 10.4 and 30.9 platelet count is 492 she does not have a left shift, INR is 0.9 PT is 10.8 she has an ABG pH of 7.29 ABG pCO2 of 27.2 ABG PO2 of 76 ABG bicarb 13 ABG total CO2 14 ABG oxygen saturation 94% with a base excess of 13, serum clear aid is 110 serum bicarb 14 BUN 25 AST 127 ALT 51 alk-phos 138 ammonia was 11 total creatinine kinase is 3100 CK-MB is 9.8 troponin was 0.97 TSH 0.461, U/A with presence of protein, ketones, occult blood, leukocyte esterase, and urine WBC and in our UA culture was not indicated, urine toxicology was positive for oxycodone, she had a normal alcohol level, and COVID-19 PCR is negative. Discharge Providers Provider Date of admission: 03/28/22 20:24 Discharge Date: 04/01/22 Primary care physician: Jairo Powers DO Consults: 03/28/22 21:58 Consult to Manager Motor Routine Comment: 03/28/22 22:46 Consult to COUNTER CASER - Manager Motor Routine Comment: Adult failure to thrive, question CPS referral 03/28/22 23:36 Consult After Hours PICC Line RN Routine Comment: 03/29/22 00:19 Consult to Dietitian, Adult Routine Comment: Reason For Exam: BMI15.8 03/30/22 11:25 Consult to Physical Therapy Evaluate & Treat Comment: Physician Instructions: Evaluate and Treat 03/31/22 14:36 Consult to Home Health Routine Comment: Reason For Exam: Home health upon DC Discharge provider: Cecile Ly MD Summary Hospital Course Discharge Diagnosis: Acute metabolic encephalopathy, secondary to UTI, resolved Klebsiella pneumonia UTI, being treated Transaminitis, improving Presumed cardiac demand ischemia, resolved Anion gap metabolic acidosis, resolved Hypokalemia, resolved Hypo magnesium E a, resolved CKD 3, stable and at baseline Prediabetes Peptic ulcer disease Hypertension Hyperlipidemia COPD DJD/chronic pain syndrome Sinus tachycardia, resolved, likely secondary to acute illness Hospital Course: 71-year-old female with CKD 3, pre diabetes, peptic ulcer disease, hypertension, hyperlipidemia, COPD, DJD, and chronic pain syndrome was admitted with acute metabolic encephalopathy secondary to Klebsiella pneumonia UTI.? Patient was originally noted to be altered by her caregiver and presented to [facility] Emergency Department on March 27.? There were no beds available and she could not be admitted.? By March 28, she appeared improved and was ultimately discharged from the emergency department.? Urine cultures grew Klebsiella which was resistant to ampicillin and intermediately sensitive to nitrofurantoin.? At the time of her visit her creatinine was elevated at 1.7.? She had an anion gap of 15.? Her son picked her up on March 28 and brought her home.? From there, the story become somewhat confusing but it sounds as though with in a couple of hours of returning home, EMS was called for altered mental status and she presented to [facility].? She is now hospital day 2.? She reports a history of frequent urinary tract infections as a child and having had ureteral reflux.? She states she was having some dysuria intermittently over the past month or so but was not able to get a urine analysis done as she was only having telehealth visits with her physician.? Patient noted significant improvement overall in her symptoms of the course for hospitalization. By March 31, she reported she was feeling close to baseline. However, she did have some left basilar crackles but her likely secondary to IV fluids. IV fluids were discontinued. She was also noted to have electrolyte derangements with both hypokalemia and hypo magnesemia. These were repleted orally. On Date of discharge, patient reported she was back to baseline. Her lungs were clear, she had no evidence of volume overload. Her son picked her up to take her home and had no additional concerns. Status at Discharge Cognitive/behavioral status at discharge: at baseline, oriented Functional status at discharge: independent ambulation Overall status at discharge: patient is back to baseline Exam Vital Signs (past 8 hours): - 04/01/22 10:06 04/01/22 12:00 Temperature 97.4 F L Pulse Rate 112 H Respiratory Rate 16 Blood Pressure 142/94 H Pulse Oximetry 100 100 Oxygen Delivery Method Room Air Oxygen Flow Rate 0 0 Oxygen Delivery Method Room Air Oxygen Flow Rate 0 Narrative Exam Narrative: GEN:? Pleasant middle-aged female, Alert and oriented x 3, NAD HEENT:NC, Face symmetric CHEST: Respiratory excursions symmetric, clear to auscultation bilaterally CV: RRR, no murmurs, rubs, or gallops ABD: Soft, NT/ND, BT present in all 4 quadrants, no organomegaly or masses EXTR: warm, well perfused, no C/C/E SKIN: warm and dry, no rash NEURO: Alert and oriented x 3, nonfocal Objective Labs Result Diagrams: 04/01/22 05:30 04/01/22 05:30 Labs: Laboratory Results - last 24 hr 04/01/22 04/01/22 05:30 05:30 WBC 8.6 RBC 3.05 L Hgb 10.3 L Hct 29.6 L MCV 97.2 MCH 33.9 MCHC 34.8 RDW 17.7 H Plt Count 494 H Neut % (Auto) 54.0 Lymph % (Auto) 34.2 [place] % (Auto) 7.4 Eos % (Auto) 3.2 Baso % (Auto) 1.2 Neut # (Auto) 4700 Lymph # (Auto) 3000 [place] # (Auto) 600 Eos # (Auto) 300 Baso # (Auto) 100 Sodium 136 L Potassium 3.4 Chloride 103 Carbon Dioxide 27 BUN 13 Creatinine 0.93 Estimated GFR > 60 BUN/Creatinine Ratio 14.0 Glucose 113 H Calcium 8.9 Magnesium 1.8 PFSH Medical History Anxiety Arthritis C. difficile colitis Chronic pain Colitis Compression fracture of L1 vertebra (~07/2019) COPD (chronic obstructive pulmonary disease) Depression DJD (degenerative joint disease) Fibromyalgia Fracture, tibia GI bleeding History of osteomyelitis History of recurrent UTIs HLD (hyperlipidemia) Hypertension Hypertension Insomnia Iron (Fe) deficiency anemia Left foot drop Lumbar compression fracture (02/26/19) Migraines Multiple fractures Nephrolithiasis Neuropathy Numbness and tingling Osteoporosis Osteoporosis Peptic ulcer disease Pre-diabetes Radius fracture (08/30/17) Renal disease Stage 3 chronic kidney disease Surgical History H/O: hysterectomy History of surgery Hx of appendectomy Hx of cholecystectomy Hx of elbow surgery Hx of kyphoplasty (~2013) Hx of kyphoplasty (04/28/19) Hx of kyphoplasty (07/28/19) Hx of tonsillectomy Status post epidural steroid injection (03/25/19) Family History Mother No known health problems COPD (chronic obstructive pulmonary disease) Father No known health problems Social History household members: significant other and children Smoking Status: Former smoker alcohol intake: current Discharge Plan Discharge Plan Patient Disposition: Home Provider Discharge Comment: 1. Continue your antibiotics until they are gone 2. Ensure you stay well-hydrated 3. Continue working on improving your nutrition; take an oral supplement if you are skipping meals 4. Although your cardiac enzymes were a bit elevated on admission, you did not have a heart attack 5. Please follow-up with your PCP, recommend f/u electrolyte panel and magnesium level in 1 week, as both your potassium and magnesium were a bit low Discharge orders & Medications Prescriptions: New cephalexin 500 mg capsule 500 mg PO TID Qty: 9 0RF Continued methocarbamol 500 mg tablet See Rx Instructions .ROUTE .COMPLEX Qty: 30 1RF Dose Instruction: TAKE ONE TABLET BY MOUTH THREE TIMES DAILY NEEDED FOR MUSCLE SPASM Rx Instructions: TAKE ONE TABLET BY MOUTH THREE TIMES DAILY NEEDED FOR MUSCLE SPASM oxycodone 10 mg tablet 10 mg PO Q6H PRN (Reason: pain) Qty: 120 0RF metoprolol tartrate 25 mg tablet 25 mg PO BID Qty: 180 1RF Medication counseling provided by Pharmacist: No Follow up/Referrals: Jairo Powers DO [Primary Care Provider] - Diet/Activity/Treatments Diet: Regular Diet comment: You are prediabetic. Avoid simple carbohydrates (sweets, sodas, etc) Activity: As tolerated Oxygen: N/A Visit Report/Discharge Packet Instructions: DI for Urinary Tract Infection (UTI), DI for Prescription Opioid Use Discharge Data Primary Care Provider: Jairo Powers Quality VTE Deep Vein Thrombosis/Pulmonary Embolism Present on Admission: No
== END 2022-04-01 14:00 | disposition home health service (06) | DRG 689 ==
LOC: ED 17:07 → AC 20:24
PROVIDERS: Family Medicine; Internal Medicine; Nurse Practitioner Family; Admitting Provider Internal Medicine; Emergency Provider Emergency Medicine; PCP Family Medicine; Referring Provider Emergency Medicine; Visit Provider Internal Medicine
DX: N39.0 Urinary tract infection, site not specified (principal); G93.41 Metabolic encephalopathy; E43 Unspecified severe protein-calorie malnutrition; E87.2 Acidosis; Z68.1 Body mass index [BMI] 19.9 or less, adult; I24.8 Other forms of acute ischemic heart disease; I47.1 Supraventricular tachycardia; R74.01 Elevation of levels of liver transaminase levels; B96.1 Klebsiella pneumoniae [K. pneumoniae] as the cause of diseases classified elsewhere; G89.4 Chronic pain syndrome; M19.90 Unspecified osteoarthritis, unspecified site; E87.6 Hypokalemia; E83.42 Hypomagnesemia; I12.9 Hypertensive chronic kidney disease with stage 1 through stage 4 chronic kidney disease, or unspecified chronic kidney disease; N18.30 Chronic kidney disease, stage 3 unspecified; Z87.891 Personal history of nicotine dependence; Z20.822 Contact with and (suspected) exposure to COVID-19
CPT/HCPCS: 36415; 36569; 36592; 36600; 70450; 71045; 71260; 74177; 80048; 80053; 80061; 80074; 80305; 80320; 80329; 81001; 82009; 82140; 82550; 82553; 82805; 82962; 83605; 83735; 83930; 84146; 84439; 84443; 84484; 85025; 85610; 85730; 87040; 87077; 87086; 87186; 87635; 93005; 93010; 96365; 97116; 97162; 99284; C9803; G0480; J0696; J1642; J1650; J2310; Q9967

== ENCOUNTER → 2022-04-06 13:15 | Outpatient (CLI) | payer MEDICARE, MEDICAID, SELFPAY ==
[2022-03-28 21:49] VITALS: BMI 15.7
[2022-04-06 14:37] LABS: Hematocrit 28.6 % (36-46); Hemoglobin 9.7 g/dL (12.0-16.0); Mean Corpuscular HGB Conc 33.9 % (30-36); Mean Corpuscular Volume 100.4 fL (80-100); Platelet Count 543 X10^3/uL (150-400); Red Blood Cell Count 2.85 X10^6/uL (4.0-5.2); Red Cell Distribution Width 17.5 % (11.6-14.8); White Blood Cell Count 8.2 X10^3/uL (4.5-11.0)
[2022-04-06 15:24] LABS: Hemoglobin A1C% w Est Avg Glu 5.7 % (4.0-6.0)
[2022-04-06 16:44] LABS: Alanine Aminotransferase 31 IU/L (<35); Albumin 3.6 g/dL (3.5-5.0); Albumin Globulin Ratio 1.4 (1.0-2.8); Alkaline Phosphatase 113 U/L (38-126); Aspartate Aminotransferase 34 IU/L (14-36); BUN Creatinine Ratio 20.1 (6-22); Bilirubin Total 0.3 mg/dL (0.2-1.3); Blood Urea Nitrogen 31 mg/dL (7-17); Calcium 8.8 mg/dL (8.4-10.2); Carbon Dioxide 20 mmol/L (22-32); Chloride 105 mmol/L (98-107); Estimated Glomerular Filt Rate 36 mL/min (>60); Globulin 2.6 g/dL (1.7-4.1); Glucose 118 mg/dL (80-110); HEMOLYSIS < 15 (0-50); Potassium 5.2 mmol/L (3.4-5.1); Sodium 134 mmol/L (137-145); Total Protein 6.2 g/dL (6.3-8.2)
== END ==
PROVIDERS: PCP Family Medicine; Referring Provider Family Medicine; Visit Provider Family Medicine
DX: E87.2 Acidosis (principal); R73.03 Prediabetes; R00.0 Tachycardia, unspecified; D64.9 Anemia, unspecified
CPT/HCPCS: 36415; 80053; 83036; 85027

== ENCOUNTER → 2022-04-20 11:52 | Outpatient (CLI) | payer MEDICARE, MEDICAID, SELFPAY ==
[2022-03-28 21:49] VITALS: BMI 15.7
[2022-04-20 14:32] LABS: Appearance Urine UA CLOUDY; Bilirubin Urine UA NEGATIVE (NEGATIVE); Color Urine UA YELLOW; Glucose Urine UA NEGATIVE (Negative); Ketones Urine UA NEGATIVE (NEGATIVE); Leukocyte Esterase Urine UA 3+ (NEGATIVE); Nitrite Urine UA NEGATIVE (Negative); Occult Blood Urine UA TRACE-INTACT (Negative); Protein Urine UA TRACE (Negative); Urobilinogen Urine UA 0.2 E.U./dL (0.2)
[2022-04-20 14:40] LABS: Bacteria Urine None Seen; RBC Urine 1-5/HPF (0-5/HPF); Squamous Epithelial Cell Urine 10-30 /HPF (0-5/HPF); WBC Urine 30-100/HPF (0-5/HPF)
[2022-04-20 14:41] LABS: Culture Indicated Urine Cult Not Indicated
[2022-04-20 15:08] LABS: Creatinine Urine Random 83.6 mg/dL
[2022-04-20 15:08] LABS: Alanine Aminotransferase 15 IU/L (<35); Albumin 4.6 g/dL (3.5-5.0); Albumin Globulin Ratio 1.3 (1.0-2.8); Alkaline Phosphatase 102 U/L (38-126); Aspartate Aminotransferase 21 IU/L (14-36); Bilirubin Total 0.3 mg/dL (0.2-1.3); Blood Urea Nitrogen 30 mg/dL (7-17); Carbon Dioxide 17 mmol/L (22-32); Chloride 106 mmol/L (98-107); Estimated Glomerular Filt Rate 39 mL/min (>60); Globulin 3.5 g/dL (1.7-4.1); Glucose 129 mg/dL (80-110); HEMOLYSIS < 15 (0-50); Potassium 3.9 mmol/L (3.4-5.1); Sodium 133 mmol/L (137-145); Total Protein 8.1 g/dL (6.3-8.2)
[2022-04-20 15:15] LABS: Microalbumi Creatinin Ratio Ur 45.4 ug/mg CR (<30); Microalbumin Urine Random 3.8 mg/dL (0-1.6)
== END ==
PROVIDERS: PCP Family Medicine; Referring Provider Family Medicine; Visit Provider Family Medicine
DX: D75.839 Thrombocytosis, unspecified (principal); K59.1 Functional diarrhea; N18.31 Chronic kidney disease, stage 3a; D64.9 Anemia, unspecified; I10 Essential (primary) hypertension; N18.30 Chronic kidney disease, stage 3 unspecified; N39.0 Urinary tract infection, site not specified; R73.03 Prediabetes
CPT/HCPCS: 36415; 80053; 81001; 82043; 82570

== ENCOUNTER → 2022-05-01 11:24 | Outpatient (CLI) | payer MEDICARE, MEDICAID, SELFPAY ==
[2022-03-28 21:49] VITALS: BMI 15.7
== END ==
PROVIDERS: PCP Family Medicine; Referring Provider Family Medicine; Visit Provider Family Medicine
DX: S22.080A Wedge compression fracture of T11-T12 vertebra, initial encounter for closed fracture (principal); M80.00XG Age-related osteoporosis with current pathological fracture, unspecified site, subsequent encounter for fracture with delayed healing
CPT/HCPCS: 77080

== ENCOUNTER → 2022-05-16 10:00 | Outpatient (CLI) | payer MEDICARE, MEDICAID, SELFPAY ==
[2022-03-28 21:49] VITALS: BMI 15.7
--- NOTE | 2022-05-16 10:19 | DI.RAD.S_ITS ---
PROCEDURE: XR CHEST FOR PICC 1V INDICATIONS: line placement TECHNIQUE: One view of the chest was acquired. COMPARISON: [facility], CR, XR CHEST FOR PICC 1V, 03/29/2022, 13:44. FINDINGS: Surgical changes and devices: Left-sided PICC line tip is seen in the region of medial left subclavian vein and should be advanced further. Lungs and pleura: Lungs are clear. No pleural effusions or pneumothorax. Mediastinum: Mediastinal contours appear normal. Heart size is normal. Bones and chest wall: No suspicious bony lesions. Overlying soft tissues appear unremarkable. IMPRESSION: Left-sided PICC line tip is in the region of left subclavian vein and should be advanced. No focal infiltrate, pleural effusion or pneumothorax. Dictated by: Jon Braxton M.D. on 05/16/2022 at 11:14 Approved by: Jon Braxton M.D. on 05/16/2022 at 11:14
== END ==
PROVIDERS: PCP Family Medicine; Referring Provider Internal Medicine Medical Oncology; Visit Provider Internal Medicine Medical Oncology
DX: D50.9 Iron deficiency anemia, unspecified (principal); Z45.2 Encounter for adjustment and management of vascular access device
CPT/HCPCS: 36573

== ENCOUNTER 2022-05-25 13:07 | Emergency (ER) | payer MEDICARE, MEDICAID, SELFPAY ==
[2022-03-28 21:49] VITALS: BMI 15.7
[2022-05-25] VITALS (8 sets, daily range): BP systolic 101–116; BP diastolic 51–65; PULSE 67–100; RESP 10–28; TEMP 36.7; O2SAT 91–99; BMI 20.7
--- NOTE | 2022-05-25 13:12 | ED_ITS ---
HPI - General Adult General Chief complaint: Fall Stated complaint: GLF/contusion on head Time Seen by Provider: 05/25/22 13:11 Source: patient and EMS Mode of arrival: EMS Limitations: no limitations History of Present Illness HPI narrative: Patient is a 71-year-old female. Not on anticoagulation. Is brought in by EMS after reports of her falling last evening. Patient states that she does not remember falling. Does not remember hitting her head. She thinks that it was her son that got her back into bed last night. This morning servicen[employer] administrator went over to check on her and found her still lying in bed. She had soiled and urinated on herself. Per EMS they were told by the servicenow administrator that she was at her base line mental status. She was complaining of left-sided chest wall discomfort and left shoulder discomfort and also a contusion under her left eye. No interventions prior to arrival Related Data Home Medications Medication Instructions Recorded Confirmed gabapentin 300 mg tablet 600 mg PO BEDTIME 05/02/22 05/02/22 Previous Rx's Medication Instructions Recorded metoprolol tartrate 25 mg tablet 25 mg PO BID #180 tabs 02/16/22 methocarbamol 500 mg tablet 500 mg PO BID #60 tabs 05/15/22 oxycodone 10 mg tablet 10 mg PO Q6H PRN pain #120 tabs 05/21/22 oxycodone 10 mg tablet 10 mg PO Q8H PRN pain #10 tabs 05/25/22 Allergies Allergy/AdvReac Type Severity Reaction Status Date / Time furosemide [From Lasix] Allergy Intermediate Rash Verified 05/25/22 13:19 tramadol [TRAMADOL] Allergy Unknown Verified 05/25/22 13:19 amitriptyline [AMITRIPTYLINE] AdvReac Intermediate Confusion Verified 05/25/22 13:19 Review of Systems Constitutional Constitutional: Denies headache(s) Eyes Comments: She reports no vision changes ENT Ears, Nose, Mouth, and Throat: Denies headache(s) Comments: Contusion under left eye Cardiovascular Comments: Left-sided chest wall discomfort Respiratory Respiratory: Reports system reviewed and no additional complaints, except as documented Gastrointestinal Gastrointestinal: Reports system reviewed and no additional complaints, except as documented Musculoskeletal Musculoskeletal: Reports system reviewed and no additional complaints, except as documented Integumentary/Breasts Comments: Contusion under left eye Neurologic Neurologic: Denies headache(s) Hematologic/Lymphatic On Anticoagulants: No Patient History Medical History Anxiety Arthritis C. difficile colitis Chronic pain Colitis Compression fracture of L1 vertebra (~07/2019) COPD (chronic obstructive pulmonary disease) Depression Diarrhea DJD (degenerative joint disease) Fibromyalgia Fracture, tibia GI bleeding History of osteomyelitis History of recurrent UTIs HLD (hyperlipidemia) Hypertension Hypertension Insomnia Iron (Fe) deficiency anemia Left foot drop Lumbar compression fracture (02/26/19) Migraines Multiple fractures Nephrolithiasis Neuropathy Numbness and tingling Osteoporosis Osteoporosis Peptic ulcer disease Pre-diabetes Radius fracture (08/30/17) Renal disease Stage 3 chronic kidney disease Surgical History H/O: hysterectomy History of surgery Hx of appendectomy Hx of cholecystectomy Hx of elbow surgery Hx of kyphoplasty (~2013) Hx of kyphoplasty (04/28/19) Hx of kyphoplasty (07/28/19) Hx of tonsillectomy Status post epidural steroid injection (03/25/19) Family History Mother No known health problems COPD (chronic obstructive pulmonary disease) Father No known health problems Social History household members: significant other and children Smoking Status: Former smoker alcohol intake: current Smoking Status: Former smoker alcohol intake frequency: holidays/special occasions only Substance Use Type: does not use and former substance user Exam Initial Vital Signs Initial Vital Signs: Vital Signs Pulse Rate 67 05/25/22 13:11 Blood Pressure 109/65 05/25/22 13:11 Const General: cooperative, comfortable and well developed [facility] Head: normal to inspection and normocephalic Eyes Other: Contusion noted under left eye Chest Chest: No crepitus Other: Discomfort along the anterior lateral chest wall in the left. Also discomfort along the clavicle. Resp Effort & Inspection: normal respiratory effort Auscultation: clear to auscultation bilaterally Cardio Rate: regular rate Rhythm: regular rhythm GI Inspection: normal to inspection and non-distended Skin Other: Contusion loaded under left Neuro General: patient alert, patient awake, patient oriented x3 and moves all extremities Extrem Other: Bilateral lower extremities and pelvis normal. Right upper extremity is unremarkable. Her left wrist and left elbow are unremarkable. She can abduct and adduct her left shoulder but has some discomfort with forward flexion. Psych Appearance: grossly normal and well kempt Scores [place] CT Head Rule Age <16 years old: No Patient on blood thinners: No Seizure after injury: No Exclusion: Patient NOT Excluded, Proceed to next steps GCS < 15 at 2 hr post trauma: No Suspected open or depressed skull fracture: No Any sign of basilar skull fracture (hemotympanum, raccoon eyes, Hernandez's sign, CSF adele-/rhinorrhea): No Two or more episodes of vomiting: No Age greater or equal to 65 years: Yes Retrograde amnesia to the event greater or equal to 30 min: No Dangerous Mechanism (pedestrian vs. mv, occupant ejected from mv, fall from >3 ft or > 5 stairs): No Recommendation: Consider CT. The [place] Head CT Rule cannot rule out need for Imaging. GCS [place] coma scale eye opening: Spontaneous [place] coma scale verbal response: Orientated [place] coma scale motor response: Obey commands [place] coma scale total score: 15 Nexus Score for C-Spine Focal Neurologic deficit present: No Midline spinal tenderness present: No Altered level of conciousness present: No Intoxication present: No Distracting Injury Present: No Nexus Criteria for C-spine: 0 Course Orders Ordered: ED Orders 05/25/22 13:13 XR ribs LT min 3V w CXR1V Stat 05/25/22 13:14 EKG-12 Lead Stat 05/25/22 13:15 CT head/brain wo con Stat 05/25/22 13:29 Basic Metabolic Panel Stat Complete Blood Count AUTO DIFF Stat Discontinued Medications Oxycodone HCl (Oxycodone Ir 5 Mg Tablet) 5 mg PO NOW ONE Stop: 05/25/22 13:13 Last Admin: 05/25/22 13:24 Dose: 5 mg Documented By: MICHELLE Vital Signs Vital signs: Vital Signs - 8 hr 05/25/22 13:19 05/25/22 13:11 05/25/22 13:11 Temperature 98.1 F Pulse Rate 100 H 67 Respiratory Rate 22 Blood Pressure 109/65 109/65 Pulse Oximetry 99 Oxygen Delivery Method Room Air 05/25/22 13:15 05/25/22 13:15 05/25/22 13:30 Temperature Pulse Rate 100 H Respiratory Rate Blood Pressure 116/57 L 114/60 Pulse Oximetry 91 Oxygen Delivery Method 05/25/22 13:30 05/25/22 14:10 05/25/22 14:15 Temperature Pulse Rate 96 H 89 Respiratory Rate 16 16 Blood Pressure 103/55 L Pulse Oximetry 98 Oxygen Delivery Method 05/25/22 14:15 05/25/22 14:30 05/25/22 14:33 Temperature Pulse Rate 90 85 Respiratory Rate 28 H 11 L Blood Pressure 101/51 L Pulse Oximetry 93 Oxygen Delivery Method 05/25/22 14:33 Temperature Pulse Rate 86 Respiratory Rate 10 L Blood Pressure Pulse Oximetry 98 Oxygen Delivery Method Medical Decision Making Lab Data Lab results reviewed: Yes I reviewed the patient's lab results. Result diagrams: 05/25/22 13:29 05/25/22 13:29 Labs: Lab Results 05/25/22 05/25/22 Range/Units 13:29 13:29 WBC 12.5 H (4.5-11.0) X10^3/uL RBC 2.43 L (4.0-5.2) X10^6/uL Hgb 8.5 L (12.0-16.0) g/dL Hct 26.2 L (36-46) % MCV 107.8 H (80-100) fL MCH 34.9 H (26-34) PG MCHC 32.4 (30-36) % RDW 16.4 H (11.6-14.8) % Plt Count 383 (150-400) X10^3/uL Neut % (Auto) 88.7 H (50-75) % Lymph % (Auto) 5.8 L (25-40) % [place] % (Auto) 4.8 (3-14) % Eos % (Auto) 0.1 L (2-4) % Baso % (Auto) 0.6 (0-2) % Neut # (Auto) 58216 H (6261-9860) /uL Lymph # (Auto) 700 L (5433-4702) /uL [place] # (Auto) 600 (0-900) /uL Eos # (Auto) 0 (0-450) /uL Baso # (Auto) 100 (0-100) /uL Sodium 137 (137-145) mmol/L Potassium 4.8 (3.4-5.1) mmol/L Chloride 109 H (98-107) mmol/L Carbon Dioxide 12 L (22-32) mmol/L BUN 55 H (7-17) mg/dL Creatinine 1.61 H (0.52-1.04) mg/dL Estimated GFR 34 L (>60) mL/min BUN/Creatinine Ratio 34.2 H (6-22) Glucose 66 L (80-110) mg/dL Calcium 9.0 (8.4-10.2) mg/dL Imaging Data CT scan - head: Radiologist's Impression: [address] [address] [address] Scan Report Signed Patient: Emani Leiva MR#: [id number] : 1950 Acct:[id number] Age/Sex: 71 / F Date of Service: 05/25/22 Loc: ED Accession Number: [id number] ?? Procedure: CT head/brain wo con Ordering Provider: Collin Guzman D.O. PROCEDURE:? CT HEAD/BRAIN WO CON ? INDICATIONS:? fall and hit head ? TECHNIQUE:? Noncontrast 4.5 mm thick angled axial sections acquired from the foramen magnum to the vertex, with coronal and sagittal reformats.? For radiation dose reduction, the following was used:? automated exposure control, adjustment of mA and/or kV according to patient size.? ? COMPARISON:? [facility], CT, CT HEAD/BRAIN WO CON, 03/28/2022, 15:22.? [facility], CT, CT HEAD/BRAIN WO CON, 02/09/2022, 18:17. ? FINDINGS:? Image quality:? Excellent.? ? CSF spaces:? Basal cisterns are patent.? No extra-axial fluid collections.? The ventricles are symmetric in size and shape.? ? Brain:? No intracranial bleeds or masses.? There is cerebral volume loss for age, with resultant ventricular and sulcal prominence.? There are periventricular and deep white matter chronic small vessel ischemic changes.? There is intracranial internal carotid artery atherosclerosis.? ? Skull and face:? Calvarium and visualized facial bones appear intact, without suspicious lesions.? ? Sinuses:? Visualized sinuses and mastoids are clear.? ? IMPRESSION:? No trauma found. ? ? Dictated by: Anthony Jordan M.D. on 05/25/2022 at 14:08 ? ? Approved by: Anthony Jordan M.D. on 05/25/2022 at 14:08? rib x-ray: Radiologist's Impression: [address] [address] XRay Report Signed Patient: Emani Leiva MR#: [id number] : 1950 Acct:[id number] Age/Sex: 71 / F Date of Service: 05/25/22 Loc: ED Accession Number: [id number] ?? Procedure: XR ribs LT min 3V w CXR1V Ordering Provider: Collin Guzman D.O. PROCEDURE:? XR RIBS LT MIN 3V W CXR1V ? INDICATIONS:? L lateral rib pain after fall . ? TECHNIQUE:? 2 views of the left ribs were acquired, along with a single view chest.? ? COMPARISON:? None. ? FINDINGS:? ? Surgical changes and devices:? None.? ? Bones and chest wall:? Minimally displaced left posterior lateral 6th through 8th ribs are seen.? No suspicious bony lesions.? Overlying soft tissues appear un remarkable.? ? Lungs and pleura:? No pleural effusions or pneumothorax.? Lungs appear clear.? ? Mediastinum:? Mediastinal contours appear normal.? Heart size is enlarged.? ? IMPRESSION:? Minimally displaced left posterior lateral 6th through 8th rib fractures.? No focal infiltrate, pleural effusion or pneumothorax. ? ? Dictated by: Jon Braxton M.D. on 05/25/2022 at 14:23 ? ? Approved by: Jon Braxton M.D. on 05/25/2022 at 14:30?? ECG Data Attestation: I personally reviewed and interpreted this ECG as follows: Interpretation: Sinus rhythm Ventricular rate 95 Normal axis Normal QRS Normal QTC No ST T wave changes MDM Narrative Medical decision making narrative: No respiratory distress. Patient does have left-sided rib fractures consistent where she is having discomfort. She is developed some bruising over the anterior portion of her chest but still no crepitus. No respiratory distress. No other injuries reported from the patient or found on the exam. Her head CT is unremarkable. I did discuss the findings of the radiologic studies with her. Will send home with pain medication. She was given return precautions. She expressed understanding and agreement. Discharge Plan Departure Patient Disposition: Home Clinical Impression: Fracture of rib, Contusion of face, Chest wall contusion Instructions: DI for Rib Fracture Activity Restrictions/Additional Instructions: Recommend that you continue to take all of your medications as directed. It is important that you use the incentive spirometer as directed. Contact your primary doctor for follow-up. Return to the emergency department for any new or worsening symptoms. Prescriptions: New oxycodone 10 mg tablet 10 mg PO Q8H PRN (Reason: pain) Qty: 10 0RF No Action methocarbamol 500 mg tablet 500 mg PO BID Qty: 60 2RF Rx Instructions: Pt to start taking after completing her TID prescription. oxycodone 10 mg tablet 10 mg PO Q6H PRN (Reason: pain) Qty: 120 0RF metoprolol tartrate 25 mg tablet 25 mg PO BID Qty: 180 1RF gabapentin 300 mg Tablet 600 mg PO BEDTIME Referrals: Jairo Powers DO [Primary Care Provider] - Visit Report Forms: Patient Portal/API
--- NOTE | 2022-05-25 13:13 | DI.RAD.S_ITS ---
PROCEDURE: XR RIBS LT MIN 3V W CXR1V INDICATIONS: L lateral rib pain after fall . TECHNIQUE: 2 views of the left ribs were acquired, along with a single view chest. COMPARISON: None. FINDINGS: Surgical changes and devices: None. Bones and chest wall: Minimally displaced left posterior lateral 6th through 8th ribs are seen. No suspicious bony lesions. Overlying soft tissues appear unremarkable. Lungs and pleura: No pleural effusions or pneumothorax. Lungs appear clear. Mediastinum: Mediastinal contours appear normal. Heart size is enlarged. IMPRESSION: Minimally displaced left posterior lateral 6th through 8th rib fractures. No focal infiltrate, pleural effusion or pneumothorax. Dictated by: Jon Braxton M.D. on 05/25/2022 at 14:23 Approved by: Jon Braxton M.D. on 05/25/2022 at 14:30
--- NOTE | 2022-05-25 13:15 | DI.CT.S_ITS ---
PROCEDURE: CT HEAD/BRAIN WO CON INDICATIONS: fall and hit head TECHNIQUE: Noncontrast 4.5 mm thick angled axial sections acquired from the foramen magnum to the vertex, with coronal and sagittal reformats. For radiation dose reduction, the following was used: automated exposure control, adjustment of mA and/or kV according to patient size. COMPARISON: [facility], CT, CT HEAD/BRAIN WO CON, 03/28/2022, 15:22. [facility], CT, CT HEAD/BRAIN WO CON, 02/09/2022, 18:17. FINDINGS: Image quality: Excellent. CSF spaces: Basal cisterns are patent. No extra-axial fluid collections. The ventricles are symmetric in size and shape. Brain: No intracranial bleeds or masses. There is cerebral volume loss for age, with resultant ventricular and sulcal prominence. There are periventricular and deep white matter chronic small vessel ischemic changes. There is intracranial internal carotid artery atherosclerosis. Skull and face: Calvarium and visualized facial bones appear intact, without suspicious lesions. Sinuses: Visualized sinuses and mastoids are clear. IMPRESSION: No trauma found. Dictated by: Anthony Jordan M.D. on 05/25/2022 at 14:08 Approved by: Anthony Jordan M.D. on 05/25/2022 at 14:08
[2022-05-25] MEDS: OXYCODONE IR 5 MG TABLET PO (13:24)
[2022-05-25 13:44] LABS: Add Manual Diff / Slide Review NO; Basophils Absolute Auto 100 /uL (0-100); Basophils Percent Auto 0.6 % (0-2); Eosinophils Absolute Auto 0 /uL (0-450); Eosinophils Percent Auto 0.1 % (2-4); Hematocrit 26.2 % (36-46); Hemoglobin 8.5 g/dL (12.0-16.0); Lymphocytes Absolute Auto 700 /uL (1100-4500); Lymphocytes Percent Auto 5.8 % (25-40); Mean Corpuscular HGB Conc 32.4 % (30-36); Mean Corpuscular Hemoglobin 34.9 PG (26-34); Mean Corpuscular Volume 107.8 fL (80-100); Monocytes Absolute Auto 600 /uL (0-900); Monocytes Percent Auto 4.8 % (3-14); Neutrophils Absolute Auto 11100 /uL (1500-7000); Neutrophils Percent Auto 88.7 % (50-75); Platelet Count 383 X10^3/uL (150-400); Red Blood Cell Count 2.43 X10^6/uL (4.0-5.2); Red Cell Distribution Width 16.4 % (11.6-14.8); White Blood Cell Count 12.5 X10^3/uL (4.5-11.0)
[2022-05-25 13:51] LABS: BUN Creatinine Ratio 34.2 (6-22); Blood Urea Nitrogen 55 mg/dL (7-17); Carbon Dioxide 12 mmol/L (22-32); Chloride 109 mmol/L (98-107); Estimated Glomerular Filt Rate 34 mL/min (>60); Glucose 66 mg/dL (80-110); HEMOLYSIS < 15 (0-50); Potassium 4.8 mmol/L (3.4-5.1); Sodium 137 mmol/L (137-145)
== END 2022-05-25 15:28 | disposition home or self-care (01) ==
PROVIDERS: Emergency Provider Emergency Medicine; PCP Family Medicine
DX: S22.32XA Fracture of one rib, left side, initial encounter for closed fracture (principal); S00.12XA Contusion of left eyelid and periocular area, initial encounter; S20.212A Contusion of left front wall of thorax, initial encounter; S09.90XA Unspecified injury of head, initial encounter; M25.512 Pain in left shoulder; W19.XXXA Unspecified fall, initial encounter
CPT/HCPCS: 36415; 70450; 71101; 80048; 85025; 93005; 99283; 99284

== ENCOUNTER 2022-06-21 12:10 | Emergency (ER) | payer MEDICARE, MEDICAID, SELFPAY ==
[2022-03-28 21:49] VITALS: BMI 15.7
[2022-06-21 12:17] VITALS: BP 168/74; PULSE 75; RESP 15; TEMP 36.1; O2SAT 100; BMI 18.5
--- NOTE | 2022-06-21 12:20 | DI.RAD.S_ITS ---
PROCEDURE: XR SHOULDER LT MIN 2V INDICATIONS: fall 2 week ago, shoulder and clavicle pain TECHNIQUE: 3 views of the shoulder were acquired. COMPARISON: [facility], CT, CT CHEST ABD PEL W CON, 03/28/2022, 18:47. [facility], CR, XR RIBS LT MIN 3V W CXR1V, 05/25/2022, 13:57. [facility], CR, XR SHOULDER RT MIN 2V, 04/19/2018, 10:31. [facility], CR, SHOULDER MINIMUM 2 VIEW LEFT, 11/22/2017, 16:55. FINDINGS: Bones: Irregularity at the proximal aspect of the left clavicle. No dislocations. Moderate left shoulder DJD. Prior left 6th and 7th and possibly 10th rib fractures are seen. No suspicious bony lesions. Visualized ribs appear intact. Soft tissues: No suspicious soft tissue calcifications. Left-sided PICC with the tip projecting at over the mammary line of the left hemithorax, this is pulled back compared to 05/25/2022. IMPRESSION: Irregularity at the proximal aspect of the left clavicle. This area is suboptimally evaluated on this exam. -Consider dedicated clavicle radiographs. CT of the chest may be more helpful. Moderate left shoulder DJD. Prior left-sided rib fractures are seen. Left-sided PICC has been pulled back with the tip at the mid left thorax. -Recommend clinical correlation. Consider removal and replacement. Dictated by: Heath Scales M.D. on 06/21/2022 at 12:19 Approved by: Heath Scales M.D. on 06/21/2022 at 12:28
--- NOTE | 2022-06-21 13:14 | ED.FALL ---
HPI - Fall <Maynor Pappas PA-C - Last Filed: 06/21/22 18:53> General Chief Complaint: Fall Stated Complaint: fell 2 weeks ago lt shoulder & neck going down arm Time Seen by Provider: 06/21/22 12:59 Source: patient Mode of arrival: Ambulatory History of Present Illness HPI Narrative: This is a 71-year-old female presents emergency department due to continued left shoulder and clavicle pain after falling 2 weeks ago. She was seen in the emergency department 2 weeks ago and told she would left rib fractures but now complaining of left shoulder and clavicle pain. Denies any numbness, nausea, vomiting, tingling, chest pain, shortness of breath, or any other concerning symptoms. Related Data Home Medications Medication Instructions Recorded Confirmed gabapentin 300 mg tablet 600 mg PO BEDTIME 05/02/22 05/02/22 Previous Rx's Medication Instructions Recorded metoprolol tartrate 25 mg tablet 25 mg PO BID #180 tabs 02/16/22 iron sucrose 200 mg iron/10 mL 200 mg (10 mL) IV Q3D #100 mL 06/06/22 intravenous solution methocarbamol 500 mg tablet 500 mg PO BID #60 tabs 06/22/22 oxycodone 10 mg tablet 10 mg PO Q6H PRN pain #120 tabs 06/22/22 Allergies Allergy/AdvReac Type Severity Reaction Status Date / Time furosemide [From Lasix] Allergy Intermediate Rash Verified 06/21/22 12:17 tramadol [TRAMADOL] Allergy Unknown Verified 06/21/22 12:17 amitriptyline [AMITRIPTYLINE] AdvReac Intermediate Confusion Verified 06/21/22 12:17 Review of Systems <Maynor Pappas PA-C - Last Filed: 06/21/22 18:53> Review of Systems Narrative: GENERAL: Denies chills, fatigue, malaise, fever, sweats. HEENT: Denies sinus pain, ear pain, sore throat, difficulty swallowing, dizziness. RESPIRATORY: Denies dyspnea, cough, wheezing, hemoptysis, sputum. CARDIOVASCULAR: Denies chest pain, palpitations, orthopnea, edema, GASTROINTESTINAL: Denies nausea, vomiting, abdominal pain, diarrhea, constipation, melena. : Denies dysuria, frequency, incontinence, hematuria, urinary retention. MUSCULOSKELETAL: Left shoulder and clavicle pain, otherwise denies weakness, joint pain, or bony pain SKIN: Denies rash, skin lesions, or other NEUROLOGIC: Denies weakness, headache, numbness, change in speech, confusion, seizures, incoordination. PSYCHIATRIC: No concerning psychosocial issues. 12 point review of systems is negative except for those stated above Patient History <Maynor Pappas PA-C - Last Filed: 06/21/22 18:53> Medical History Anxiety Arthritis C. difficile colitis Chronic pain Colitis Compression fracture of L1 vertebra (~07/2019) COPD (chronic obstructive pulmonary disease) Depression Diarrhea DJD (degenerative joint disease) Fibromyalgia Fracture, tibia GI bleeding History of osteomyelitis History of recurrent UTIs HLD (hyperlipidemia) Hypertension Hypertension Insomnia Iron (Fe) deficiency anemia Left foot drop Lumbar compression fracture (02/26/19) Migraines Multiple fractures Nephrolithiasis Neuropathy Numbness and tingling Osteoporosis Osteoporosis Peptic ulcer disease Pre-diabetes Radius fracture (08/30/17) Renal disease Stage 3 chronic kidney disease Surgical History H/O: hysterectomy History of surgery Hx of appendectomy Hx of cholecystectomy Hx of elbow surgery Hx of kyphoplasty (~2013) Hx of kyphoplasty (04/28/19) Hx of kyphoplasty (07/28/19) Hx of tonsillectomy Status post epidural steroid injection (03/25/19) Family History Mother No known health problems COPD (chronic obstructive pulmonary disease) Father No known health problems Social History household members: significant other and children Smoking Status: Former smoker alcohol intake: current Smoking Status: Former smoker alcohol intake frequency: holidays/special occasions only Substance Use Type: does not use and former substance user Exam <Maynor Pappas PA-C - Last Filed: 06/21/22 18:53> Narrative Exam Narrative: GENERAL: Well-developed patient, in mild distress. HEAD: Atraumatic. Normocephalic. EYES: Pupils equal round and reactive. Extraocular motions intact. No scleral icterus. No injection or drainage. ENT: Nose without bleeding, purulent drainage. Throat without erythema, tonsillar hypertrophy or exudate. Airway patent. NECK: Trachea midline. Non tender CARDIOVASCULAR: Regular rate and rhythm without murmurs, gallops, or rubs. RESPIRATORY: Clear to auscultation. Breath sounds equal bilaterally. No wheezes, rales, or rhonchi. GASTROINTESTINAL: Abdomen soft, non-tender, nondistended. EXTREMITIES: Left-sided deformity to left proximal clavicle, some crepitus felt, no tenting BACK: Nontender without deformity or crepitance. No flank tenderness. NEURO: AOx3. SKIN: No rash or erythema of visible areas Initial Vital Signs Initial Vital Signs: Vital Signs Temperature 97.0 F L 06/21/22 12:17 Pulse Rate 75 06/21/22 12:17 Respiratory Rate 15 06/21/22 12:17 Blood Pressure 168/74 H 06/21/22 12:17 Pulse Oximetry 100 06/21/22 12:17 Oxygen Delivery Method 06/21/22 12:17 <Jorge Mccall DO - Last Filed: 06/24/22 02:32> Initial Vital Signs Initial Vital Signs: Vital Signs Temperature 97.0 F L 06/21/22 12:17 Pulse Rate 75 06/21/22 12:17 Respiratory Rate 15 06/21/22 12:17 Blood Pressure 168/74 H 06/21/22 12:17 Pulse Oximetry 100 06/21/22 12:17 Oxygen Delivery Method 06/21/22 12:17 Course <Maynor Pappas PA-C - Last Filed: 06/21/22 18:53> Orders Ordered: Discontinued Medications Hydromorphone HCl (Hydromorphone 0.5 Mg Inj) 0.5 mg IV NOW ONE Stop: 06/21/22 16:38 Last Admin: 06/21/22 16:47 Dose: 0.5 mg Documented By: NELI Vital Signs Vital signs: Vital Signs - 8 hr 06/21/22 12:17 06/21/22 17:11 Temperature 97.0 F L Pulse Rate 75 88 Respiratory Rate 15 Blood Pressure 168/74 H 128/78 Pulse Oximetry 100 100 Oxygen Delivery Method Room Air Room Air <Jorge Mccall DO - Last Filed: 06/24/22 02:32> Orders Ordered: Discontinued Medications Hydromorphone HCl (Hydromorphone 0.5 Mg Inj) 0.5 mg IV NOW ONE Stop: 06/21/22 16:38 Last Admin: 06/21/22 16:47 Dose: 0.5 mg Documented By: NELI Vital Signs Vital signs: Vital Signs - 8 hr 06/21/22 12:17 06/21/22 17:11 Temperature 97.0 F L Pulse Rate 75 88 Respiratory Rate 15 Blood Pressure 168/74 H 128/78 Pulse Oximetry 100 100 Oxygen Delivery Method Room Air Room Air MDM - Fall <Maynor Pappas PA-C - Last Filed: 06/21/22 18:53> Imaging Data Extremity x-ray #1: Radiologist's Impression: [address] [id number] XRay Report Signed Patient: Emani Leiva MR#: [id number] : 1950 Acct:[id number] Age/Sex: 71 / F Date of Service: 06/21/22 Loc: ED Accession Number: [id number] ?? Procedure: XR shoulder LT min 2V Ordering Provider: Jorge Mccall D.O. PROCEDURE:? XR SHOULDER LT MIN 2V ? INDICATIONS:? fall 2 week ago, shoulder and clavicle pain ? TECHNIQUE:? 3 views of the shoulder were acquired.? ? COMPARISON:? [facility], CT, CT CHEST ABD PEL W CON, 03/28/2022, 18:47.? [facility], CR, XR RIBS LT MIN 3V W CXR1V, 05/25/2022, 13:57.? [facility], CR, XR SHOULDER RT MIN 2V, 04/19/2018, 10:31.? [facility], CR, SHOULDER MINIMUM 2 VIEW LEFT, 11/22/2017, 16:55. ? FINDINGS:? ? Bones:? Irregularity at the proximal aspect of the left clavicle.? No dislocations.? Moderate left shoulder DJD.? Prior left 6th and 7th and possibly 10th rib fractures are seen.? No suspicious bony lesions.? Visualized ribs appear intact.? ? Soft tissues:? No suspicious soft tissue calcifications.? Left-sided PICC with the tip projecting at over the mammary line of the left hemithorax, this is pulled back compared to 05/25/2022. ? IMPRESSION:? Irregularity at the proximal aspect of the left clavicle.? This area is suboptimally evaluated on this exam.? -Consider dedicated clavicle radiographs.? CT of the chest may be more helpful.? ? Moderate left shoulder DJD.? ? Prior left-sided rib fractures are seen. ? Left-sided PICC has been pulled back with the tip at the mid left thorax.? -Recommend clinical correlation.? Consider removal and replacement.? ? Dictated by: Heath Scales M.D. on 06/21/2022 at 12:19 ? ? Approved by: Heath Scales M.D. on 06/21/2022 at 12:28 ? CT scan - chest: Radiologist's Impression: [address] [id number] [address] Scan Report Signed Patient: Emani Leiva MR#: [id number] : 1950 Acct:[id number] Age/Sex: 71 / F Date of Service: 06/21/22 Loc: ED Accession Number: [id number] ?? Procedure: CT chest wo con Ordering Provider: Maynor Pappas P.A-C PROCEDURE:? CT CHEST WO CON ? INDICATIONS:? f/u L clavicle findings and PICC placement ? TECHNIQUE: Noncontrast 5 mm thick sections acquired from the pulmonary apices to the posterior costophrenic angles.? 1 mm lung window, 5 mm thick coronal and sagittal and 7 mm axial MIP reformats were then acquired.? For radiation dose reduction, the following was used:? automated exposure control, adjustment of mA and/or kV according to patient size.? ? COMPARISON:? [facility], CR, XR RIBS LT MIN 3V W CXR1V, 05/25/2022, 13:57.? [facility], CR, XR SHOULDER LT MIN 2V, 06/21/2022, 12:22.? [facility], CT, CT CHEST WO CON, 10/30/2020, 8:22. ? FINDINGS:? Image quality:? Excellent.? ? Lungs and pleura:? No acute air space opacities.? Calcified granulomas.? No pleural effusions or pneumothorax.? Central and peripheral airways are patent and normal in caliber.? ? Mediastinum:? Left PICC at the left subclavian vein which was previously located in the distal left subclavian vein.? Heart size is normal.? Three-vessel coronary artery calcifications.? Small pericardial effusion.? No mediastinal adenopathy by size criteria. ?Thoracic aorta and central pulmonary arteries are normal in size.? Esophagus is normal in caliber.? No hiatal hernia.? ? Bones and chest wall:? [place] superior proximal left clavicle fracture, (12/31).? Left 4th through 8th rib fractures.? Prior 10th 11th rib fracture.? Prior right 7th and 8th rib fractures.? Possible prior 11th and 12th rib fractures.? T12 compression fracture.? Prior vertebroplasty at L1 and L2.? Minimal height loss at T10.? No suspicious bony lesions.? No axillary or supraclavicular adenopathy by size criteria.? Thyroid gland is unremarkable.? ? Abdomen:? Visualized upper abdominal solid organs and bowel loops appear normal in the absence of contrast.? Prior cholecystectomy.? Left renal calcifications.? ? IMPRESSION:? 1. Proximal left clavicle fracture with mild displacement. ? 2. Left PICC has been pulled back into the distal left-clavicle vein. ? 3. Multiple prior bilateral rib fractures. ? 4. No hemothorax.? No pneumothorax. ? 5. Small pericardial effusion.? ? ? Dictated by: Heath Scales M.D. on 06/21/2022 at 14:12 ? ? Approved by: Heath Scales M.D. on 06/21/2022 at 14:22 ? MDM Narrative Medical decision making narrative: This is a 71-year-old female presents emergency department complaining of some left shoulder and clavicle pain after falling 2 weeks ago. Patient was neurovascularly intact throughout, x-rays of the shoulder were taken which showed a proximal left clavicle fracture. CT chest ordered for further investigation of the left clavicle fracture as well as the PICC line that the patient has for IV iron infusions for chronic anemia being reported to be slightly out of place. Patient will be discharged in a sling and instructed to follow-up with her primary care provider as well as established orthopedist. Also recommended she follow up with the primary care provider for further follow-up on the PICC line placement. The clavicle fracture showed no evidence of tenting or skin compromise. Patient states that she missed her pain management appointment that was scheduled for today as she need to come to the emergency department. She has an appointment in 4 days. Short course of narcotics will be prescribed to last her until then. Discharge Plan Departure Patient Disposition: Home Clinical Impression: Clavicle fracture Instructions: DI for Clavicle Fracture-Adult Activity Restrictions/Additional Instructions: Thank you for coming to the [facility] Emergency Department today. On imaging you have a proximal clavicle fracture. Please keep your arm in the sling/ Please follow-up with your regular orthopedist for repeat evaluation. Please also follow-up with your primary care provider to discuss the placement of your PICC line. Please take the pain medication as prescribed please follow-up with your pain managed since doctor on Saturday as we discussed.. Follow-up with your regular clinic on Saturday as discussed. I hope you feel better soon. Prescriptions: No Action oxycodone 10 mg tablet 10 mg PO Q6H PRN (Reason: pain) Qty: 120 0RF methocarbamol 500 mg tablet 500 mg PO BID Qty: 60 2RF Rx Instructions: Pt to start taking after completing her TID prescription. metoprolol tartrate 25 mg tablet 25 mg PO BID Qty: 180 1RF gabapentin 300 mg Tablet 600 mg PO BEDTIME iron sucrose 200 mg iron/10 mL Solution 200 mg IV Q3D Qty: 100 0RF Rx Instructions: administer over 30 mins Referrals: Jairo Powers DO [Primary Care Provider] - Visit Report Forms: Patient Portal/API <Jorge Mccall DO - Last Filed: 06/24/22 02:32> [facility] ED Attending Sandiature Attestation: I was immediately available in the department for consultation. This documentation has been reviewed and I agree with assessment and plan. Supervised by Jorge Mccall DO
--- NOTE | 2022-06-21 13:23 | PC.NURSE ---
Swelling noted to left collar bone radiating to left anterior neck
--- NOTE | 2022-06-21 13:43 | DI.CT.S_ITS ---
PROCEDURE: CT CHEST WO CON INDICATIONS: f/u L clavicle findings and PICC placement TECHNIQUE: Noncontrast 5 mm thick sections acquired from the pulmonary apices to the posterior costophrenic angles. 1 mm lung window, 5 mm thick coronal and sagittal and 7 mm axial MIP reformats were then acquired. For radiation dose reduction, the following was used: automated exposure control, adjustment of mA and/or kV according to patient size. COMPARISON: [facility], CR, XR RIBS LT MIN 3V W CXR1V, 05/25/2022, 13:57. [facility], CR, XR SHOULDER LT MIN 2V, 06/21/2022, 12:22. [facility], CT, CT CHEST WO CON, 10/30/2020, 8:22. FINDINGS: Image quality: Excellent. Lungs and pleura: No acute air space opacities. Calcified granulomas. No pleural effusions or pneumothorax. Central and peripheral airways are patent and normal in caliber. Mediastinum: Left PICC at the left subclavian vein which was previously located in the distal left subclavian vein. Heart size is normal. Three-vessel coronary artery calcifications. Small pericardial effusion. No mediastinal adenopathy by size criteria. Thoracic aorta and central pulmonary arteries are normal in size. Esophagus is normal in caliber. No hiatal hernia. Bones and chest wall: [place] superior proximal left clavicle fracture, (5/15). Left 4th through 8th rib fractures. Prior 10th 11th rib fracture. Prior right 7th and 8th rib fractures. Possible prior 11th and 12th rib fractures. T12 compression fracture. Prior vertebroplasty at L1 and L2. Minimal height loss at T10. No suspicious bony lesions. No axillary or supraclavicular adenopathy by size criteria. Thyroid gland is unremarkable. Abdomen: Visualized upper abdominal solid organs and bowel loops appear normal in the absence of contrast. Prior cholecystectomy. Left renal calcifications. IMPRESSION: 1. Proximal left clavicle fracture with mild displacement. 2. Left PICC has been pulled back into the distal left-clavicle vein. 3. Multiple prior bilateral rib fractures. 4. No hemothorax. No pneumothorax. 5. Small pericardial effusion. Dictated by: Heath Scales M.D. on 06/21/2022 at 14:12 Approved by: Heath Scales M.D. on 06/21/2022 at 14:22
[2022-06-21] MEDS: HYDROMORPHONE 0.5 MG INJ IV (16:47)
[2022-06-21 17:11] VITALS: BP 128/78; PULSE 88; O2SAT 100
== END 2022-06-21 17:12 | disposition home or self-care (01) ==
PROVIDERS: Emergency Provider Physician Assistant Medical; PCP Family Medicine
DX: S42.002A Fracture of unspecified part of left clavicle, initial encounter for closed fracture (principal); D64.9 Anemia, unspecified; W18.30XA Fall on same level, unspecified, initial encounter
CPT/HCPCS: 71250; 73030; 96374; 99284; J1170

== ENCOUNTER → 2022-06-29 14:55 | Outpatient (CLI) | payer MEDICARE, MEDICAID, SELFPAY ==
[2022-03-28 21:49] VITALS: BMI 15.7
[2022-06-29 15:44] LABS: Add Manual Diff / Slide Review NO; Basophils Absolute Auto 100 /uL (0-100); Basophils Percent Auto 1.2 % (0-2); Eosinophils Absolute Auto 100 /uL (0-450); Eosinophils Percent Auto 1.5 % (2-4); Hematocrit 33.5 % (36-46); Lymphocytes Absolute Auto 1100 /uL (1100-4500); Lymphocytes Percent Auto 12.4 % (25-40); Mean Corpuscular HGB Conc 32.9 % (30-36); Mean Corpuscular Hemoglobin 37.1 PG (26-34); Mean Corpuscular Volume 112.6 fL (80-100); Monocytes Absolute Auto 500 /uL (0-900); Monocytes Percent Auto 5.4 % (3-14); Neutrophils Absolute Auto 7000 /uL (1500-7000); Neutrophils Percent Auto 79.5 % (50-75); Platelet Count 516 X10^3/uL (150-400); Red Blood Cell Count 2.98 X10^6/uL (4.0-5.2); Red Cell Distribution Width 20.3 % (11.6-14.8); White Blood Cell Count 8.7 X10^3/uL (4.5-11.0)
[2022-06-29 16:21] LABS: Alanine Aminotransferase 29 IU/L (<35); Albumin Globulin Ratio 1.1 (1.0-2.8); Alkaline Phosphatase 188 U/L (38-126); Aspartate Aminotransferase 27 IU/L (14-36); Bilirubin Total 0.6 mg/dL (0.2-1.3); Blood Urea Nitrogen 33 mg/dL (7-17); Calcium 9.4 mg/dL (8.4-10.2); Carbon Dioxide 20 mmol/L (22-32); Chloride 107 mmol/L (98-107); Estimated Glomerular Filt Rate 43 mL/min (>60); Globulin 3.6 g/dL (1.7-4.1); Glucose 145 mg/dL (80-110); HEMOLYSIS < 15 (0-50); Phosphorous 4.2 mg/dL (2.8-4.1); Potassium 4.5 mmol/L (3.4-5.1); Sodium 138 mmol/L (137-145); Total Protein 7.6 g/dL (6.3-8.2)
[2022-06-29 17:35] LABS: Macrocytosis 2+; Platelet Estimate Increased on smear
[2022-07-01 08:46] LABS: Parathyroid Hormone Int 27 pg/mL (15-65)
== END ==
PROVIDERS: PCP Family Medicine; Referring Provider Internal Medicine Nephrology; Visit Provider Internal Medicine Nephrology
DX: D70.9 Neutropenia, unspecified (principal); D63.1 Anemia in chronic kidney disease; N05.9 Unspecified nephritic syndrome with unspecified morphologic changes; E83.30 Disorder of phosphorus metabolism, unspecified; N25.81 Secondary hyperparathyroidism of renal origin
CPT/HCPCS: 36415; 80053; 83970; 84100; 85025

== ENCOUNTER → 2022-07-11 12:11 | Outpatient (CLI) | payer MEDICARE, MEDICAID, SELFPAY ==
[2022-07-10 10:21] VITALS: BMI 15.7
--- NOTE | 2022-07-11 12:14 | DI.RAD.S_ITS ---
PROCEDURE: XR CLAVICLE LT INDICATIONS: Persistent pain over fracture site TECHNIQUE: 2 views of the clavicle were acquired. COMPARISON: [facility], CR, XR SHOULDER LT MIN 2V, 06/21/2022, 12:22. [facility], CT, CT CHEST WO CON, 06/21/2022, 14:06. FINDINGS: Bones: Mildly displaced fracture of the medial left clavicle is redemonstrated without significant change in alignment. Left posterior minimally displaced 2nd and 3rd rib fractures do not appear significantly changed. Additional left-sided rib fractures are not well seen on this exam. Soft tissues: No suspicious soft tissue calcifications. IMPRESSION: Mildly displaced medial left clavicular fracture with unchanged alignment. Approved by: Alex Causey M.D. on 07/11/2022 at 15:35
--- NOTE | 2022-07-11 12:14 | DI.RAD.S_ITS ---
PROCEDURE: XR RIBS LT MIN 3V W CXR1V INDICATIONS: Persistent pain over fracture site TECHNIQUE: Two views of the left ribs were acquired, along with a single view chest. COMPARISON: [facility], CT, CT CHEST WO CON, 06/21/2022, 14:06. [facility], CR, XR RIBS LT MIN 3V W CXR1V, 05/25/2022, 13:57. FINDINGS: Surgical changes and devices: Vertebroplasty changes are seen at multiple levels in the included lumbar spine. Bones and chest wall: Displaced medial left clavicular fracture does not appear significantly changed. Minimally displaced fractures of the posterior left 2nd and 3rd ribs are redemonstrated. Minimally displaced anterolateral left 4th through 8th rib fractures do not appear significantly changed. Chronic healed fractures of the posterolateral left 6th, 10th and 11th ribs. T12 vertebral body compression fracture does not appear significantly changed. Lungs and pleura: No pleural effusions or pneumothorax. Lungs appear clear. Aortic atherosclerotic calcifications are present Mediastinum: Mediastinal contours appear normal. Heart size is normal. IMPRESSION: 1. Multiple left-sided rib fractures do not appear significantly changed when compared to the CT from 06/21/2022. Additional chronic healed left rib fractures are noted. No pneumothorax. 2. Mildly displaced medial left clavicular fracture does not appear significantly changed in alignment. 3. T12 compression fracture does not appear significantly changed. Vertebroplasty changes are seen at multiple levels in the lumbar spine. Approved by: Alex Causey M.D. on 07/11/2022 at 15:33
== END ==
PROVIDERS: PCP Family Medicine; Referring Provider Family Medicine; Visit Provider Family Medicine
DX: S42.012A Anterior displaced fracture of sternal end of left clavicle, initial encounter for closed fracture (principal); S22.42XA Multiple fractures of ribs, left side, initial encounter for closed fracture; S22.089A Unspecified fracture of T11-T12 vertebra, initial encounter for closed fracture; S32.000A Wedge compression fracture of unspecified lumbar vertebra, initial encounter for closed fracture; D64.9 Anemia, unspecified; M81.0 Age-related osteoporosis without current pathological fracture; N18.30 Chronic kidney disease, stage 3 unspecified; X58.XXXA Exposure to other specified factors, initial encounter
CPT/HCPCS: 71101; 73000

== ENCOUNTER 2022-07-11 20:22 | Emergency (ER) | payer MEDICARE, MEDICAID, SELFPAY ==
[2022-07-10 10:21] VITALS: BMI 15.7
[2022-07-11 20:22] VITALS: BP 188/86; PULSE 95; RESP 20; TEMP 36.5; O2SAT 100; BMI 20.7
--- NOTE | 2022-07-11 20:28 | DI.RAD.S_ITS ---
PROCEDURE: XR ELBOW RT MIN 3V INDICATIONS: fall with pain, deformity TECHNIQUE: 4 views of the elbow were acquired. COMPARISON: [facility], CR, XR SHOULDER RT MIN 2V, 07/11/2022, 20:34. [facility], CR, XR ELBOW RT MIN 3V, 07/29/2018, 18:05. FINDINGS: Bones: Limited study due to suboptimal positioning. Extensive postsurgical changes are redemonstrated within elbow prosthesis as well as partially visualized fixation rods in the distal humerus. No definite acute fractures or dislocations. No definite new suspicious periprosthetic lucencies compared to the prior study. Soft tissues: There is limited evaluation for joint effusion given suboptimal positioning as well as artifact from metallic hardware. No suspicious soft tissue calcifications. IMPRESSION: 1. Extensive postsurgical and old posttraumatic changes redemonstrated in the elbow and distal humerus. No definite new acute fracture or dislocation. Dictated by: Festus Moreira M.D. on 07/11/2022 at 23:59 Approved by: Festus Moreira M.D. on 07/12/2022 at 0:04
--- NOTE | 2022-07-11 20:28 | DI.RAD.S_ITS ---
PROCEDURE: XR SHOULDER RT MIN 2V INDICATIONS: fall with pain TECHNIQUE: 2 views of the shoulder were acquired. COMPARISON: [facility], CR, XR SHOULDER LT MIN 2V, 06/21/2022, 12:22. FINDINGS: Bones: There is a mildly impacted fracture of the right humeral neck. Postsurgical changes are partially visualized status post prior screw plate fixation of the humeral shaft. No suspicious bony lesions. Visualized ribs appear intact. Soft tissues: No suspicious soft tissue calcifications. IMPRESSION: 1. Mildly impacted right humeral neck fracture. Dictated by: Festus Moreira M.D. on 07/11/2022 at 21:47 Approved by: Festus Moreira M.D. on 07/11/2022 at 21:49
[2022-07-11 20:29] VITALS: PULSE 50; RESP 20; O2SAT 99
--- NOTE | 2022-07-11 20:31 | ED.TRAUMA ---
HPI - Trauma General Chief Complaint: Trauma Stated Complaint: Fall Time Seen by Provider: 07/11/22 20:27 Source: patient and EMS Mode of arrival: EMS History of Present Illness HPI narrative: 71-year-old female smoker with history of multiple prior fractures, tachycardia, peptic ulcer disease, kidney disease and chronic pain presents by EMS for evaluation of a ground level fall resulting in severe right shoulder pain. She had been drinking a bit tonight and stood up and maybe had a brief episode of syncope and in falling she landed on her right shoulder and now has significant pain. She denies any head, neck or back pain. She denies nausea, vomiting or diarrhea. She has no chest pain or shortness of breath. Her pain is worse with range of motion and improves with rest. She was evaluated by EMS and because she was a bit sluggish to respond she was given some Narcan that did little to nothing, patient does state she took no pain medication today Related Data Home Medications Medication Instructions Recorded Confirmed gabapentin 300 mg tablet 600 mg PO BEDTIME 05/02/22 07/11/22 Previous Rx's Medication Instructions Recorded metoprolol tartrate 25 mg tablet 25 mg PO BID #180 tabs 02/16/22 iron sucrose 200 mg iron/10 mL 200 mg (10 mL) IV Q3D #100 mL 06/06/22 intravenous solution methocarbamol 500 mg tablet 500 mg PO BID #60 tabs 06/22/22 oxycodone 10 mg tablet 10 mg PO Q6H PRN pain #120 tabs 06/22/22 tizanidine 4 mg capsule 4 mg PO BID PRN muscle spasticity 07/11/22 #60 caps Allergies Allergy/AdvReac Type Severity Reaction Status Date / Time furosemide [From Lasix] Allergy Intermediate Rash Verified 07/11/22 11:20 tramadol [TRAMADOL] Allergy Unknown Verified 07/11/22 11:20 amitriptyline [AMITRIPTYLINE] AdvReac Intermediate Confusion Verified 07/11/22 11:20 Review of Systems Review of Systems Narrative: GENERAL: See HPI HEENT: Denies sinus pain, ear pain, sore throat, difficulty swallowing, dizziness. RESPIRATORY: Denies dyspnea, cough, wheezing, hemoptysis, sputum. CARDIOVASCULAR: Denies chest pain, palpitations, orthopnea, edema, GASTROINTESTINAL: Denies nausea, vomiting, abdominal pain, diarrhea, constipation, melena. : Denies dysuria, frequency, incontinence, hematuria, urinary retention. MUSCULOSKELETAL: See HPI SKIN: Denies rash, skin lesions, or other NEUROLOGIC: Denies weakness, headache, numbness, change in speech, confusion, seizures, incoordination. PSYCHIATRIC: No concerning psychosocial issues. 12 point review of systems is negative except for those stated above Patient History Medical History Anxiety Arthritis C. difficile colitis Chronic pain Closed left clavicular fracture Colitis Compression fracture of L1 vertebra (~07/2019) COPD (chronic obstructive pulmonary disease) Depression Diarrhea DJD (degenerative joint disease) Fibromyalgia Fracture, tibia GI bleeding History of osteomyelitis History of recurrent UTIs HLD (hyperlipidemia) Hypertension Hypertension Insomnia Iron (Fe) deficiency anemia Left foot drop Left rib fracture Lumbar compression fracture (02/26/19) Migraines Multiple fractures Nephrolithiasis Neuropathy Numbness and tingling Osteoporosis Osteoporosis Peptic ulcer disease Pre-diabetes Radius fracture (08/30/17) Renal disease Stage 3 chronic kidney disease Surgical History H/O: hysterectomy History of surgery Hx of appendectomy Hx of cholecystectomy Hx of elbow surgery Hx of kyphoplasty (~2013) Hx of kyphoplasty (04/28/19) Hx of kyphoplasty (07/28/19) Hx of tonsillectomy Status post epidural steroid injection (03/25/19) Family History Mother No known health problems COPD (chronic obstructive pulmonary disease) Father No known health problems Social History household members: significant other and children Smoking Status: Former smoker alcohol intake: current Smoking Status: Former smoker alcohol intake frequency: holidays/special occasions only Substance Use Type: does not use and former substance user Exam Narrative Exam Narrative: GENERAL: [71] year old patient appears older than stated age. Frail, thin, tearful anxious HEAD: Atraumatic. Normocephalic. EYES: Pupils equal round and reactive. Extraocular motions intact. No scleral icterus. No injection or drainage. ENT: Nose without bleeding, purulent drainage. Throat without erythema, tonsillar hypertrophy or exudate. Airway patent. NECK: Trachea midline. Non tender CARDIOVASCULAR: Regular rate and rhythm without murmurs, gallops, or rubs. RESPIRATORY: Clear to auscultation. Breath sounds equal bilaterally. No wheezes, rales, or rhonchi. GASTROINTESTINAL: Abdomen soft, non-tender, nondistended. EXTREMITIES: Right shoulder tender to palpation, decreased ROM due to pain and mechanical obstruction. This is closed, isolated and neurovascularly intact BACK: Nontender without deformity or crepitance. No flank tenderness. NEURO: AOx3. SKIN: No rash or erythema of visible areas Initial Vital Signs Initial Vital Signs: Vital Signs Temperature 97.7 F 07/11/22 20:22 Pulse Rate 95 H 07/11/22 20:22 Respiratory Rate 20 07/11/22 20:22 Blood Pressure 188/86 H 07/11/22 20:22 Pulse Oximetry 100 07/11/22 20:22 Oxygen Delivery Method 07/11/22 20:22 Procedures Orthopedic Splinting/Casting Injury #1: Upper Extremity Injury Location: shoulder Upper Extremity Immobilizer: sling/shoulder immobilizer Post splinting neuro exam: intact Post splinting vascular exam: intact Placed by: Nursing Course Orders Ordered: ED Orders 07/11/22 20:28 XR elbow RT min 3V Stat XR shoulder RT min 2V Stat 07/11/22 20:30 Complete Blood Count AUTO DIFF Stat Comprehensive Metabolic Panel Stat Ethanol (ETOH) Stat 07/11/22 20:50 COVID19 -Nasal RAPID/Pre-Proc Stat 07/11/22 22:50 Urine Drug Screen, Rapid Stat Fentanyl (Fentanyl 100 Mcg/2 Ml Inj) 50 mcg IV Q1H PRN PRN Reason: Pain, Severe (7-10) Last Admin: 07/11/22 22:30 Dose: 50 mcg Documented By: Admin: 07/11/22 20:48 Dose: 50 mcg Documented By: MYKEL Discontinued Medications Heparin Sodium (Porcine) (Heparin Flush (Cl/Picc/Mid-Line) 50 Unit/5 Ml Syringe) 50 unit IV NOW ONE Stop: 07/12/22 00:34 Sodium Chloride (Normal Saline 0.9%) 500 mls @ 1,000 mls/hr IV BOLUS ONE Stop: 07/11/22 20:57 Last Infusion: 07/11/22 21:39 Dose: 0 mls/hr Documented By: Admin: 07/11/22 20:47 Dose: 1,000 mls/hr Documented By: ADK Naloxone HCl (Naloxone 4 Mg Nasal [place]) 4 mg MISC SEEINSTR ONE Stop: 07/12/22 00:15 Vital Signs Vital signs: Vital Signs - 8 hr 07/11/22 20:22 07/11/22 20:29 07/11/22 23:34 Temperature 97.7 F Pulse Rate 95 H 50 L 89 Respiratory Rate 20 20 18 Blood Pressure 188/86 H 121/59 L Pulse Oximetry 100 99 98 Oxygen Delivery Method Room Air Room Air Room Air MDM - Trauma Lab Data Result diagrams: 07/11/22 20:30 07/11/22 20:30 Labs: Lab Results 07/11/22 07/11/22 07/11/22 Range/Units 20:30 20:30 20:50 WBC 12.5 H (4.5-11.0) X10^3/uL RBC 2.96 L (4.0-5.2) X10^6/uL Hgb 11.1 L (12.0-16.0) g/dL Hct 33.1 L (36-46) % MCV 111.9 H (80-100) fL MCH 37.4 H (26-34) PG MCHC 33.4 (30-36) % RDW 19.5 H (11.6-14.8) % Plt Count 583 H (150-400) X10^3/uL Neut % (Auto) 68.9 (50-75) % Lymph % (Auto) 24.1 L (25-40) % [place] % (Auto) 4.9 (3-14) % Eos % (Auto) 0.8 L (2-4) % Baso % (Auto) 1.3 (0-2) % Neut # (Auto) 8600 H (2669-4321) /uL Lymph # (Auto) 3000 (9612-7917) /uL [place] # (Auto) 600 (0-900) /uL Eos # (Auto) 100 (0-450) /uL Baso # (Auto) 200 H (0-100) /uL Platelet Estimate Increased on smear RBC Morphology See below Macrocytosis 2+ H Sodium 135 L (137-145) mmol/L Potassium 4.7 (3.4-5.1) mmol/L Chloride 104 (98-107) mmol/L Carbon Dioxide 16 L (22-32) mmol/L BUN 22 H (7-17) mg/dL Creatinine 1.12 H (0.52-1.04) mg/dL Estimated GFR 53 L (>60) mL/min BUN/Creatinine Ratio 19.6 (6-22) Glucose 94 (80-110) mg/dL Calcium 8.9 (8.4-10.2) mg/dL Total Bilirubin 0.2 (0.2-1.3) mg/dL AST 37 H (14-36) IU/L ALT 32 (<35) IU/L Alkaline Phosphatase 142 H (38-126) U/L Total Protein 8.1 (6.3-8.2) g/dL Albumin 4.4 (3.5-5.0) g/dL Globulin 3.7 (1.7-4.1) g/dL Albumin/Globulin Ratio 1.2 (1.0-2.8) U Opiates 300ng/mL cut (Negative) Ur Oxycodone Screen (Negative) Urine Methadone Screen (Negative) Ur Barbiturates Screen (Negative) U Tricyclic Antidepress (Negative) Ur Phencyclidine Scrn (Negative) Ur Amphetamines Screen (Negative) U Methamphetamines Scrn (Negative) Ur MDMA Scrn (Ecstasy) (Negative) U Benzodiazepines Scrn (Negative) Urine Cocaine Screen (Negative) U Marijuana (THC) Screen (Negative) Ethyl Alcohol 211 H ( - 10) mg/dL SARS-CoV-2 (PCR) Negative (Negative) 07/11/22 Range/Units 22:50 WBC (4.5-11.0) X10^3/uL RBC (4.0-5.2) X10^6/uL Hgb (12.0-16.0) g/dL Hct (36-46) % MCV (80-100) fL MCH (26-34) PG MCHC (30-36) % RDW (11.6-14.8) % Plt Count (150-400) X10^3/uL Neut % (Auto) (50-75) % Lymph % (Auto) (25-40) % [place] % (Auto) (3-14) % Eos % (Auto) (2-4) % Baso % (Auto) (0-2) % Neut # (Auto) (7590-0712) /uL Lymph # (Auto) (3142-3107) /uL [place] # (Auto) (0-900) /uL Eos # (Auto) (0-450) /uL Baso # (Auto) (0-100) /uL Platelet Estimate RBC Morphology Macrocytosis Sodium (137-145) mmol/L Potassium (3.4-5.1) mmol/L Chloride (98-107) mmol/L Carbon Dioxide (22-32) mmol/L BUN (7-17) mg/dL Creatinine (0.52-1.04) mg/dL Estimated GFR (>60) mL/min BUN/Creatinine Ratio (6-22) Glucose (80-110) mg/dL Calcium (8.4-10.2) mg/dL Total Bilirubin (0.2-1.3) mg/dL AST (14-36) IU/L ALT (<35) IU/L Alkaline Phosphatase (38-126) U/L Total Protein (6.3-8.2) g/dL Albumin (3.5-5.0) g/dL Globulin (1.7-4.1) g/dL Albumin/Globulin Ratio (1.0-2.8) U Opiates 300ng/mL cut Negative (Negative) Ur Oxycodone Screen Negative (Negative) Urine Methadone Screen Negative (Negative) Ur Barbiturates Screen Negative (Negative) U Tricyclic Antidepress Negative (Negative) Ur Phencyclidine Scrn Negative (Negative) Ur Amphetamines Screen Negative (Negative) U Methamphetamines Scrn Negative (Negative) Ur MDMA Scrn (Ecstasy) Negative (Negative) U Benzodiazepines Scrn Negative (Negative) Urine Cocaine Screen Negative (Negative) U Marijuana (THC) Screen Negative (Negative) Ethyl Alcohol ( - 10) mg/dL SARS-CoV-2 (PCR) (Negative) Urine Dip Bedside Urine Glucose Negative Bedside Urine Bilirubin - Negative Bedside Urine Ketone - Negative Urine Specific [place] 1.015 Bedside Urine Occult Blood - Negative Bedside Urine pH 6.0 Bedside Urine Protein +/- 15 Bedside Urine Urobilinogen - Negative Bedside Urine Nitrite - Negative Bedside Urine Leukocytes ++ 125 Esterase Imaging Data Extremity x-ray #1: Radiologist's Impression: [address] [address] XRay Report Signed Patient: Emani Leiva MR#: [id number] : 1950 Acct:[id number] Age/Sex: 71 / F Date of Service: 07/11/22 Loc: ED Accession Number: [id number] ?? Procedure: XR shoulder RT min 2V Ordering Provider: Jorge Mccall D.O. PROCEDURE:? XR SHOULDER RT MIN 2V ? INDICATIONS:? fall with pain ? TECHNIQUE:? 2 views of the shoulder were acquired.? ? COMPARISON:? [facility], CR, XR SHOULDER LT MIN 2V, 06/21/2022, 12:22. ? FINDINGS:? ? Bones:? There is a mildly impacted fracture of the right humeral neck.? Postsurgical changes are partially visualized status post prior screw plate fixation of the humeral shaft.? No suspicious bony lesions.? Visualized ribs appear intact.? ? Soft tissues:? No suspicious soft tissue calcifications.? ? IMPRESSION:? ? 1. Mildly impacted right humeral neck fracture. ? ? Dictated by: Festus Moreira M.D. on 07/11/2022 at 21:47 ? ? Approved by: Festus Moreira M.D. on 07/11/2022 at 21:49 ? Extremity x-ray #2: Radiologist's Impression: [place] [address] XRay Report Signed Patient: Emani Leiva MR#: [id number] : 1950 Acct:[id number] Age/Sex: 71 / F Date of Service: 07/11/22 Loc: ED Accession Number: [id number] ?? Procedure: XR elbow RT min 3V Ordering Provider: Jorge Mccall D.O. PROCEDURE:? XR ELBOW RT MIN 3V ? INDICATIONS:? fall with pain, deformity ? TECHNIQUE:? 4 views of the elbow were acquired.? ? COMPARISON:? [facility], CR, XR SHOULDER RT MIN 2V, 07/11/2022, 20:34.? [facility], , XR ELBOW RT MIN 3V, 07/29/2018, 18:05. ? FINDINGS:? ? Bones:? Limited study due to suboptimal positioning.? Extensive postsurgical changes are redemonstrated within elbow prosthesis as well as partially visualized fixation rods in the distal humerus.? No definite acute fractures or dislocations.? No definite new suspicious periprosthetic lucencies compared to the prior study.? ? Soft tissues:? There is limited evaluation for joint effusion given suboptimal positioning as well as artifact from metallic hardware.? No suspicious soft tissue calcifications.? ? ? IMPRESSION:? ? 1. Extensive postsurgical and old posttraumatic changes redemonstrated in the elbow and distal humerus.? No definite new acute fracture or dislocation.? ? ? Dictated by: Festus Moreira M.D. on 07/11/2022 at 23:59 ? ? Approved by: Festus Moreira M.D. on 07/12/2022 at 0:04 ? MDM Narrative Medical decision making narrative: Patient feeling much better after above-stated therapies, she is alert and oriented and complains only of right shoulder pain which improved with a sling. She states that she did have some drinks tonight which is new for her but denies the use of any pain medication or other drugs earlier today. She states she has an extensive relationship with local orthopedics and plans to call them the next day they are open. She is given return precautions and has had her questions answered to apparent satisfaction Discharge Plan Departure Patient Disposition: Home Clinical Impression: Fracture, humerus, anatomical neck Instructions: DI for Shoulder Fracture Activity Restrictions/Additional Instructions: *You have been diagnosed with [right proximal humerus fracture] *What to do: *Please continue to take your regular medications as directed. [ ] New medication prescriptions sent to your pharmacy: [ ] [ ] New medication written as a paper prescription [x] Tylenol and occasional Motrin for pain *Please follow up with Dr. Cornejo ] of [facility] in 2-3 days, call for an appointment. Let them know you were seen in the Emergency Department and that we ask that you be seen in follow up. We will electronically transmit a record of today's note if your PCP is in our system *Return to Emergency Department if you should have any new, worsening or concerning symptoms, such as [worsening pain, significant swelling, cold extremities, numbness, tingling, weakness or other bothersome symptoms Prescriptions: No Action oxycodone 10 mg tablet 10 mg PO Q6H PRN (Reason: pain) Qty: 120 0RF methocarbamol 500 mg tablet 500 mg PO BID Qty: 60 2RF Rx Instructions: Pt to start taking after completing her TID prescription. metoprolol tartrate 25 mg tablet 25 mg PO BID Qty: 180 1RF tizanidine 4 mg capsule 4 mg PO BID PRN (Reason: muscle spasticity) Qty: 60 1RF gabapentin 300 mg Tablet 600 mg PO BEDTIME iron sucrose 200 mg iron/10 mL Solution 200 mg IV Q3D Qty: 100 0RF Rx Instructions: administer over 30 mins Referrals: Marilou Carpio MD [Physician] - Jairo Powers DO [Primary Care Provider] -
[2022-07-11] MEDS: SODIUM CHLORIDE 0.9% 500 ML 1000 ML IV (20:47)
[2022-07-11] MEDS: fentaNYL 100 MCG/2 ML INJ 50 MCG IV ×2 (20:48→22:30)
[2022-07-11 20:50] LABS: Basophils Absolute Auto 200 /uL (0-100); Basophils Percent Auto 1.3 % (0-2); Eosinophils Absolute Auto 100 /uL (0-450); Eosinophils Percent Auto 0.8 % (2-4); Hematocrit 33.1 % (36-46); Hemoglobin 11.1 g/dL (12.0-16.0); Lymphocytes Absolute Auto 3000 /uL (1100-4500); Lymphocytes Percent Auto 24.1 % (25-40); Mean Corpuscular HGB Conc 33.4 % (30-36); Mean Corpuscular Hemoglobin 37.4 PG (26-34); Mean Corpuscular Volume 111.9 fL (80-100); Monocytes Absolute Auto 600 /uL (0-900); Monocytes Percent Auto 4.9 % (3-14); Neutrophils Absolute Auto 8600 /uL (1500-7000); Neutrophils Percent Auto 68.9 % (50-75); Platelet Count 583 X10^3/uL (150-400); Red Blood Cell Count 2.96 X10^6/uL (4.0-5.2); Red Cell Distribution Width 19.5 % (11.6-14.8); White Blood Cell Count 12.5 X10^3/uL (4.5-11.0)
[2022-07-11 20:54] LABS: Alanine Aminotransferase 32 IU/L (<35); Albumin 4.4 g/dL (3.5-5.0); Albumin Globulin Ratio 1.2 (1.0-2.8); Alkaline Phosphatase 142 U/L (38-126); Aspartate Aminotransferase 37 IU/L (14-36); BUN Creatinine Ratio 19.6 (6-22); Bilirubin Total 0.2 mg/dL (0.2-1.3); Blood Urea Nitrogen 22 mg/dL (7-17); Calcium 8.9 mg/dL (8.4-10.2); Carbon Dioxide 16 mmol/L (22-32); Chloride 104 mmol/L (98-107); Estimated Glomerular Filt Rate 53 mL/min (>60); Ethanol (ETOH) 211 mg/dL; Globulin 3.7 g/dL (1.7-4.1); Glucose 94 mg/dL (80-110); HEMOLYSIS < 15 (0-50); Potassium 4.7 mmol/L (3.4-5.1); Sodium 135 mmol/L (137-145); Total Protein 8.1 g/dL (6.3-8.2)
[2022-07-11 21:11] LABS: COVID19 -Nasal RAPID Negative (Negative)
--- NOTE | 2022-07-11 21:13 | PC.NURSE ---
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 Asked patient if she could use a bedpan. Patient said she cool. Got patient on the bedpan. Patient refused once on the bedpan. Was insistent on the BSC. Explained to her how with her current mobility, I didn't feel it was a safe plan. She continued to say it was. I told JESUS Kumar.
[2022-07-11 21:33] LABS: Add Manual Diff / Slide Review SLIDE REVIEW
[2022-07-11 22:09] LABS: Macrocytosis 2+; Platelet Estimate Increased on smear
[2022-07-11 23:34] VITALS: BP 121/59; PULSE 89; RESP 18; O2SAT 98
[2022-07-11 23:49] LABS: UR Morphine/Opiate cutoff 300 Negative (Negative); Ur Creatinine 20 (Normal); Ur Specific Gravity 1.015 (Normal); Urine Amphetamines Negative (Negative); Urine Barbiturates Negative (Negative); Urine Benzodiazepines Negative (Negative); Urine Cocaine Negative (Negative); Urine MDMA Negative (Negative); Urine Methadone Negative (Negative); Urine Methamphetamines Negative (Negative); Urine Oxycodone Negative (Negative); Urine Phencyclidine Negative (Negative); Urine Tetrahydrocannabinol Negative (Negative); Urine Tricyclic Antidepressant Negative (Negative); Urine pH 6 (Normal)
[2022-07-12] MEDS: NALOXONE 4 MG NASAL SPRAY MISC (01:01)
[2022-07-12 01:02] VITALS: BP 121/59; PULSE 85; RESP 18; O2SAT 98
== END 2022-07-12 01:02 | disposition home or self-care (01) ==
PROVIDERS: Emergency Provider Emergency Medicine; PCP Family Medicine
DX: S42.291A Other displaced fracture of upper end of right humerus, initial encounter for closed fracture (principal); W18.30XA Fall on same level, unspecified, initial encounter; Z20.822 Contact with and (suspected) exposure to COVID-19; S42.012A Anterior displaced fracture of sternal end of left clavicle, initial encounter for closed fracture; S22.42XA Multiple fractures of ribs, left side, initial encounter for closed fracture; S22.089A Unspecified fracture of T11-T12 vertebra, initial encounter for closed fracture; S32.000A Wedge compression fracture of unspecified lumbar vertebra, initial encounter for closed fracture; D64.9 Anemia, unspecified; M81.0 Age-related osteoporosis without current pathological fracture; N18.30 Chronic kidney disease, stage 3 unspecified; X58.XXXA Exposure to other specified factors, initial encounter
CPT/HCPCS: 71101; 73000; 73030; 73080; 80053; 80305; 80320; 81003; 85025; 87635; 96374; 96375; 99284; C9803; A9270; J1642; J3010

== ENCOUNTER 2022-07-13 19:29 | Emergency (ER) | payer MEDICARE, MEDICAID, SELFPAY ==
[2022-07-10 10:21] VITALS: BMI 15.7
[2022-07-13] VITALS (12 sets, daily range): BP systolic 125–183; BP diastolic 67–89; PULSE 49–95; RESP 13–25; TEMP 36.5; O2SAT 98–100; BMI 20.7
[2022-07-13] MEDS: OXYCODONE IR 5 MG TABLET 10 MG PO (21:00)
[2022-07-13 21:28] LABS: Add Manual Diff / Slide Review SLIDE REVIEW; Basophils Absolute Auto 100 /uL (0-100); Basophils Percent Auto 0.9 % (0-2); Eosinophils Absolute Auto 0 /uL (0-450); Eosinophils Percent Auto 0.3 % (2-4); Hematocrit 28.6 % (36-46); Hemoglobin 9.6 g/dL (12.0-16.0); Lymphocytes Absolute Auto 2900 /uL (1100-4500); Lymphocytes Percent Auto 22.7 % (25-40); Mean Corpuscular HGB Conc 33.5 % (30-36); Mean Corpuscular Hemoglobin 37.6 PG (26-34); Mean Corpuscular Volume 112.2 fL (80-100); Monocytes Absolute Auto 600 /uL (0-900); Neutrophils Absolute Auto 9000 /uL (1500-7000); Neutrophils Percent Auto 71.1 % (50-75); Platelet Count 416 X10^3/uL (150-400); Red Blood Cell Count 2.55 X10^6/uL (4.0-5.2); Red Cell Distribution Width 19.1 % (11.6-14.8); White Blood Cell Count 12.6 X10^3/uL (4.5-11.0)
[2022-07-13 21:40] LABS: Alanine Aminotransferase 23 IU/L (<35); Albumin 3.7 g/dL (3.5-5.0); Albumin Globulin Ratio 1.1 (1.0-2.8); Alkaline Phosphatase 132 U/L (38-126); Aspartate Aminotransferase 22 IU/L (14-36); Bilirubin Total 0.4 mg/dL (0.2-1.3); Blood Urea Nitrogen 29 mg/dL (7-17); Calcium 8.9 mg/dL (8.4-10.2); Carbon Dioxide 14 mmol/L (22-32); Chloride 105 mmol/L (98-107); Estimated Glomerular Filt Rate 46 mL/min (>60); Globulin 3.3 g/dL (1.7-4.1); Glucose 106 mg/dL (80-110); HEMOLYSIS < 15 (0-50); Potassium 4.5 mmol/L (3.4-5.1); Sodium 132 mmol/L (137-145)
[2022-07-13 21:45] LABS: Anisocytosis 2+; Macrocytosis 2+
[2022-07-13] MEDS: SODIUM CHLORIDE 0.9% 1,000 ML 1000 ML IV (21:45)
[2022-07-13 21:47] LABS: Target Cells 2+
--- NOTE | 2022-07-13 22:23 | PC.NURSE ---
Patient reports her bed at home is soiled with urine, r/t bilateral fractures she states she cannot use her arms to ambulate and has a bad left leg. Pt reports she is continent of urine. Pt was at her daughter's home and ambulatory on 07/11/22, her children help her ambulate. Pt states the pain worsens her chronic dizziness. Pt reports weekly iron infusions but has missed at least 2 weeks r/t her caregiver being sick. States she has a caregiver M-F for 2.5 hours, her son brings her meals in the morning. Pt states she has not been able to move her arms enough to reach for her water on her nightstand or reach her medications in the drawer. Pt requesting an indwelling catheter for urination, educated pt on risks for infection with catheters and not indicated r/t her continence.
--- NOTE | 2022-07-13 22:48 | ED.UPPEXIN ---
HPI - Extremity Injury (Upper) <Melisa Koo, DO - Last Filed: 07/15/22 18:55> General Chief Complaint: Extremity Injury, Upper Stated Complaint: Dizzy Time Seen by Provider: 07/13/22 19:33 Mode of arrival: EMS History of Present Illness HPI narrative: Patient is a 71-year-old female with a history of anemia dizziness frequent falls this is her 3rd visit this month and 2nd visit this week she was diagnosed with a clavicle fracture on the left on June 21 and multiple old rib fractures. She was seen and evaluated again on June 10 after she fell and hurt her right shoulder diagnosed with a right humeral neck fracture. She has a PICC line for ongoing iron infusions which she has not yet been able to get to due to her recent fractures. Today she presents with worsening pain inability to move. She says she really can not move her left arm left arm is no longer and sling her right arm seems to be quite painful. She is really not able to take care of herself she has a caregiver there Saturday through Saturday but only 2 hours and day. She can not get up to use the restroom she really needs help. She is here today because she has increased pain and is no longer able to care for herself after her most recent fall. She has frequent ongoing dizziness which she says is not new. Related Data Home Medications Medication Instructions Recorded Confirmed gabapentin 300 mg tablet 300 mg PO DAILY 05/02/22 07/14/22 hydrocodone 5 mg-acetaminophen 325 1 tab Q8HR PRN Pain (Scale Score 07/14/22 07/14/22 mg tablet 7-10) pantoprazole 40 mg tablet,delayed 40 mg PO BID 07/14/22 07/14/22 release tizanidine 4 mg tablet 1 mg BID PRN Pain (Scale Score 07/14/22 07/14/22 7-10) Previous Rx's Medication Instructions Recorded metoprolol tartrate 25 mg tablet 25 mg PO BID #180 tabs 02/16/22 iron sucrose 200 mg iron/10 mL 200 mg (10 mL) IV Q3D #100 mL 06/06/22 intravenous solution methocarbamol 500 mg tablet 500 mg PO BID #60 tabs 06/22/22 oxycodone 10 mg tablet 10 mg PO Q6H PRN pain #120 tabs 06/22/22 oxycodone-acetaminophen 5 mg-325 2 tab PO Q8H PRN pain #20 tabs 07/15/22 mg tablet (Percocet) Allergies Allergy/AdvReac Type Severity Reaction Status Date / Time furosemide [From Lasix] Allergy Intermediate Rash Verified 07/13/22 20:52 tramadol [TRAMADOL] Allergy Unknown Verified 07/13/22 20:52 amitriptyline [AMITRIPTYLINE] AdvReac Intermediate Confusion Verified 07/13/22 20:52 Review of Systems <Melisa Koo DO - Last Filed: 07/15/22 18:55> Review of Systems Narrative: GENERAL: Denies chills,fever HEENT: Denies throat pain RESPIRATORY: Denies dyspnea, cough, wheezing CARDIOVASCULAR: Denies chest pain, palpitations GASTROINTESTINAL: Denies nausea, vomiting MUSCULOSKELETAL: See HPI SKIN: No rash, no laceration, no pruritus NEUROLOGIC: Denies weakness, dizziness, headache, numbness 8 point review of systems is negative except for those stated above and HPI Patient History <Melisa Koo DO - Last Filed: 07/15/22 18:55> Medical History Anxiety Arthritis C. difficile colitis Chronic pain Closed left clavicular fracture Colitis Compression fracture of L1 vertebra (~07/2019) COPD (chronic obstructive pulmonary disease) Depression Diarrhea DJD (degenerative joint disease) Fibromyalgia Fracture, tibia GI bleeding History of osteomyelitis History of recurrent UTIs HLD (hyperlipidemia) Hypertension Hypertension Insomnia Iron (Fe) deficiency anemia Left foot drop Left rib fracture Lumbar compression fracture (02/26/19) Migraines Multiple fractures Nephrolithiasis Neuropathy Numbness and tingling Osteoporosis Osteoporosis Peptic ulcer disease Pre-diabetes Radius fracture (08/30/17) Renal disease Stage 3 chronic kidney disease Surgical History H/O: hysterectomy History of surgery Hx of appendectomy Hx of cholecystectomy Hx of elbow surgery Hx of kyphoplasty (~2013) Hx of kyphoplasty (04/28/19) Hx of kyphoplasty (07/28/19) Hx of tonsillectomy Status post epidural steroid injection (03/25/19) Family History Mother No known health problems COPD (chronic obstructive pulmonary disease) Father No known health problems Social History household members: children and other Smoking Status: Former smoker alcohol intake: current Smoking Status: Former smoker alcohol intake frequency: holidays/special occasions only Substance Use Type: does not use and former substance user Exam <Melisa Koo DO - Last Filed: 07/15/22 18:55> Initial Vital Signs Initial Vital Signs: Vital Signs Pulse Rate 54 L 07/13/22 19:39 Respiratory Rate 18 07/13/22 19:39 Blood Pressure 125/89 07/13/22 19:39 Pulse Oximetry 99 07/13/22 19:39 Oxygen Delivery Method 07/13/22 19:39 GENERAL: [Well-appearing, well-nourished] and in [no acute] distress. HEENT: Head atraumatic,EOMI, pupils reactive, face symmetric, [moist] mucous membranes [EARS:] [Tympanic membranes visualized, no erythema or bulging, no hemotympanum] [PHARYNX:] [No erythema, no tonsillar exudate, no cervical lymphadenopathy] CARDIOVASCULAR: Regular rate and rhythm without murmurs, rubs or gallops. RESPIRATORY: Breath sounds equal bilaterally, no wheezes rales or rhonchi. ABDOMEN: Soft, nontender. Normoactive bowel sounds all 4 quadrants. No guarding or rebound. [RECTAL:] [Hemoccult-positive, no hemorrhoids, nontender] : No CVA tenderness EXTREMITIES: Normal range of motion, no clubbing or edema. Neurovascularly intact NEUROLOGICAL: Alert and oriented x4.Normal gait and speech. Cranial nerves II through XII grossly intact. [Good [id number], good [id number], strength equal bilaterally, no dysarthria or aphasia, sensation in tact to soft touch bilaterally, no visual changes, no facial droop] SKIN: Warm, dry, no laceration, no petechiae, no rashes or lesions. <Percy Chang MD - Last Filed: 07/15/22 16:32> Initial Vital Signs Initial Vital Signs: Vital Signs Pulse Rate 54 L 07/13/22 19:39 Respiratory Rate 18 07/13/22 19:39 Blood Pressure 125/89 07/13/22 19:39 Pulse Oximetry 99 07/13/22 19:39 Oxygen Delivery Method 07/13/22 19:39 Course <Melisa Hayes, DO - Last Filed: 07/15/22 18:55> Orders Ordered: ED Orders 07/15/22 13:04 Consult to Home Health Stat Discontinued Medications Acetaminophen (Acetaminophen 325 Mg Tablet) 650 mg PO Q4H PRN PRN Reason: Fever/Mild Pain (1-3) Last Admin: 07/15/22 05:02 Dose: 650 mg Documented By: Admin: 07/15/22 00:26 Dose: 650 mg Documented By: Admin: 07/14/22 03:03 Dose: 650 mg Documented By: LEN Diazepam (Diazepam 5 Mg Tablet) 5 mg PO NOW ONE Stop: 07/14/22 17:47 Last Admin: 07/14/22 17:57 Dose: 5 mg Documented By: CLAUDIA Diazepam (Diazepam 5 Mg Tablet) 5 mg PO NOW ONE Stop: 07/15/22 06:48 Last Admin: 07/15/22 06:51 Dose: 5 mg Documented By: AALIYAH Hydromorphone HCl (Hydromorphone 1 Mg Inj) 1 mg IV NOW ONE Stop: 07/13/22 22:49 Last Admin: 07/13/22 22:54 Dose: 1 mg Documented By: MICHELLE Hydromorphone HCl (Hydromorphone 1 Mg Inj) 1 mg IV NOW ONE Stop: 07/14/22 00:39 Last Admin: 07/14/22 00:42 Dose: 1 mg Documented By: MICHELLE Hydromorphone HCl (Hydromorphone 1 Mg Inj) 1 mg IV Q3HR PRN PRN Reason: Pain, Moderate (4-6) Last Admin: 07/15/22 12:30 Dose: 1 mg Documented By: Admin: 07/15/22 05:02 Dose: 1 mg Documented By: Admin: 07/15/22 02:16 Dose: 1 mg Documented By: Admin: 07/14/22 23:11 Dose: 1 mg Documented By: Admin: 07/14/22 17:32 Dose: 1 mg Documented By: Admin: 07/14/22 13:32 Dose: 1 mg Documented By: Admin: 07/14/22 05:53 Dose: 1 mg Documented By: Admin: 07/14/22 03:05 Dose: 1 mg Documented By: LEN Sodium Chloride (Normal Saline 0.9%) 1,000 mls @ 1,000 mls/hr IV BOLUS ONE Stop: 07/13/22 21:50 Last Infusion: 07/13/22 22:54 Dose: 0 mls/hr Documented By: Admin: 07/13/22 21:45 Dose: 1,000 mls/hr Documented By: AT Ketorolac Tromethamine (Ketorolac 30 Mg/Ml Vial) 15 mg IV NOW ONE Stop: 07/14/22 00:39 Last Admin: 07/14/22 00:42 Dose: 15 mg Documented By: MICHELLE Metoprolol Tartrate (Metoprolol Ir 25 Mg Tablet) 25 mg PO NOW ONE Stop: 07/14/22 06:01 Last Admin: 07/14/22 05:48 Dose: 25 mg Documented By: LEN Metoprolol Tartrate (Metoprolol Ir 25 Mg Tablet) 25 mg PO BID COUNTS INCLUDE 234 BEDS AT [facility] Last Admin: 07/15/22 08:58 Dose: 25 mg Documented By: Admin: 07/14/22 21:16 Dose: 25 mg Documented By: LEN Oxycodone HCl (Oxycodone Ir 5 Mg Tablet) 10 mg PO NOW ONE Stop: 07/13/22 20:53 Last Admin: 07/13/22 21:00 Dose: 10 mg Documented By: AT Oxycodone HCl (Oxycodone Ir 5 Mg Tablet) 10 mg PO Q6H COUNTS INCLUDE 234 BEDS AT [facility] Last Admin: 07/15/22 10:03 Dose: 10 mg Documented By: Admin: 07/15/22 03:45 Dose: 10 mg Documented By: Admin: 07/14/22 21:16 Dose: 10 mg Documented By: Admin: 07/14/22 15:05 Dose: 10 mg Documented By: Admin: 07/14/22 09:03 Dose: 10 mg Documented By: Admin: 07/14/22 03:03 Dose: 10 mg Documented By: LEN Vital Signs Vital signs: Vital Signs - 8 hr 07/15/22 11:00 07/15/22 11:00 07/15/22 11:30 Pulse Rate 83 Blood Pressure 158/76 H 140/85 Pulse Oximetry 97 07/15/22 11:30 07/15/22 12:00 07/15/22 12:00 Pulse Rate 82 83 Blood Pressure 141/69 H Pulse Oximetry 98 98 07/15/22 12:21 07/15/22 12:21 07/15/22 12:30 Pulse Rate 89 Blood Pressure 142/82 H 143/80 H Pulse Oximetry 99 07/15/22 12:30 07/15/22 12:35 07/15/22 12:35 Pulse Rate 89 95 H Blood Pressure 139/75 Pulse Oximetry 98 99 07/15/22 12:45 07/15/22 12:45 07/15/22 13:00 Pulse Rate 92 H 110 H Blood Pressure 144/67 H Pulse Oximetry 97 99 07/15/22 13:30 07/15/22 14:00 07/15/22 14:09 Pulse Rate 86 85 91 H Blood Pressure Pulse Oximetry 98 98 99 07/15/22 14:09 Pulse Rate Blood Pressure 124/59 L Pulse Oximetry <Percy Chang MD - Last Filed: 07/15/22 16:32> Course Course Narrative: July 14, 2022 at 7:[address] Koo, patient here for upper extremity fractures bilaterally and will need social work in physical therapy evaluation for disposition and possible rehab/sniff. Patient is on scheduled pain medication. 6:[address] Koo, no new issues during course of stay. Patient has failed physical therapy evaluation recommending sniff. [facility] [employer] [facility] worker Cleo has seen patient. May need home health care at home otherwise still waiting for possible SNF placement July 15, 2022 at 7:[address] Koo, no new issues over night. Patient still requires pain control/medication. Social work to review patient case again for home health care versus SNF Orders Ordered: ED Orders 07/15/22 13:04 Consult to Home Health Stat Discontinued Medications Acetaminophen (Acetaminophen 325 Mg Tablet) 650 mg PO Q4H PRN PRN Reason: Fever/Mild Pain (1-3) Last Admin: 07/15/22 05:02 Dose: 650 mg Documented By: Admin: 07/15/22 00:26 Dose: 650 mg Documented By: Admin: 07/14/22 03:03 Dose: 650 mg Documented By: LEN Diazepam (Diazepam 5 Mg Tablet) 5 mg PO NOW ONE Stop: 07/14/22 17:47 Last Admin: 07/14/22 17:57 Dose: 5 mg Documented By: CLAUDIA Diazepam (Diazepam 5 Mg Tablet) 5 mg PO NOW ONE Stop: 07/15/22 06:48 Last Admin: 07/15/22 06:51 Dose: 5 mg Documented By: AALIYAH Hydromorphone HCl (Hydromorphone 1 Mg Inj) 1 mg IV NOW ONE Stop: 07/13/22 22:49 Last Admin: 07/13/22 22:54 Dose: 1 mg Documented By: RL Hydromorphone HCl (Hydromorphone 1 Mg Inj) 1 mg IV NOW ONE Stop: 07/14/22 00:39 Last Admin: 07/14/22 00:42 Dose: 1 mg Documented By: RL Hydromorphone HCl (Hydromorphone 1 Mg Inj) 1 mg IV Q3HR PRN PRN Reason: Pain, Moderate (4-6) Last Admin: 07/15/22 12:30 Dose: 1 mg Documented By: Admin: 07/15/22 05:02 Dose: 1 mg Documented By: Admin: 07/15/22 02:16 Dose: 1 mg Documented By: Admin: 07/14/22 23:11 Dose: 1 mg Documented By: Admin: 07/14/22 17:32 Dose: 1 mg Documented By: Admin: 07/14/22 13:32 Dose: 1 mg Documented By: Admin: 07/14/22 05:53 Dose: 1 mg Documented By: Admin: 07/14/22 03:05 Dose: 1 mg Documented By: LEN Sodium Chloride (Normal Saline 0.9%) 1,000 mls @ 1,000 mls/hr IV BOLUS ONE Stop: 07/13/22 21:50 Last Infusion: 07/13/22 22:54 Dose: 0 mls/hr Documented By: Admin: 07/13/22 21:45 Dose: 1,000 mls/hr Documented By: AT Ketorolac Tromethamine (Ketorolac 30 Mg/Ml Vial) 15 mg IV NOW ONE Stop: 07/14/22 00:39 Last Admin: 07/14/22 00:42 Dose: 15 mg Documented By: RL Metoprolol Tartrate (Metoprolol Ir 25 Mg Tablet) 25 mg PO NOW ONE Stop: 07/14/22 06:01 Last Admin: 07/14/22 05:48 Dose: 25 mg Documented By: LEN Metoprolol Tartrate (Metoprolol Ir 25 Mg Tablet) 25 mg PO BID COUNTS INCLUDE 234 BEDS AT [facility] Last Admin: 07/15/22 08:58 Dose: 25 mg Documented By: Admin: 07/14/22 21:16 Dose: 25 mg Documented By: LEN Oxycodone HCl (Oxycodone Ir 5 Mg Tablet) 10 mg PO NOW ONE Stop: 07/13/22 20:53 Last Admin: 07/13/22 21:00 Dose: 10 mg Documented By: AT Oxycodone HCl (Oxycodone Ir 5 Mg Tablet) 10 mg PO Q6H COUNTS INCLUDE 234 BEDS AT [facility] Last Admin: 07/15/22 10:03 Dose: 10 mg Documented By: Admin: 07/15/22 03:45 Dose: 10 mg Documented By: Admin: 07/14/22 21:16 Dose: 10 mg Documented By: Admin: 07/14/22 15:05 Dose: 10 mg Documented By: Admin: 07/14/22 09:03 Dose: 10 mg Documented By: Admin: 07/14/22 03:03 Dose: 10 mg Documented By: LEN Reevaluation(s) Reevaluation #1: July 15, 2022 at 1:30 p.m.. Patient and son and social work and Physical therapy all in patient's room. Patient has been able to up and walk and ambulate safely. There is agreement within staff and patient and son for discharge home and home health care. Patient does knee short course of pain medication prescription for Percocet. Patient and son are very pleased and happy and comfortable for discharge home. Time: 13:32 Vital Signs Vital signs: Vital Signs - 8 hr 07/15/22 11:00 07/15/22 11:00 07/15/22 11:30 Pulse Rate 83 Blood Pressure 158/76 H 140/85 Pulse Oximetry 97 07/15/22 11:30 07/15/22 12:00 07/15/22 12:00 Pulse Rate 82 83 Blood Pressure 141/69 H Pulse Oximetry 98 98 07/15/22 12:21 07/15/22 12:21 07/15/22 12:30 Pulse Rate 89 Blood Pressure 142/82 H 143/80 H Pulse Oximetry 99 07/15/22 12:30 07/15/22 12:35 07/15/22 12:35 Pulse Rate 89 95 H Blood Pressure 139/75 Pulse Oximetry 98 99 07/15/22 12:45 07/15/22 12:45 07/15/22 13:00 Pulse Rate 92 H 110 H Blood Pressure 144/67 H Pulse Oximetry 97 99 07/15/22 13:30 07/15/22 14:00 07/15/22 14:09 Pulse Rate 86 85 91 H Blood Pressure Pulse Oximetry 98 98 99 07/15/22 14:09 Pulse Rate Blood Pressure 124/59 L Pulse Oximetry MDM - Extremity Injury (Upper) <Melisa Koo, DO - Last Filed: 07/15/22 18:55> Lab Data Result diagrams: 07/13/22 21:15 07/13/22 21:15 Labs: Lab Results 07/13/22 07/13/22 07/14/22 Range/Units 21:15 21:15 13:43 WBC 12.6 H (4.5-11.0) X10^3/uL RBC 2.55 L (4.0-5.2) X10^6/uL Hgb 9.6 L (12.0-16.0) g/dL Hct 28.6 L (36-46) % MCV 112.2 H (80-100) fL MCH 37.6 H (26-34) PG MCHC 33.5 (30-36) % RDW 19.1 H (11.6-14.8) % Plt Count 416 H (150-400) X10^3/uL Neut % (Auto) 71.1 (50-75) % Lymph % (Auto) 22.7 L (25-40) % Saunders % (Auto) 5.0 (3-14) % Eos % (Auto) 0.3 L (2-4) % Baso % (Auto) 0.9 (0-2) % Neut # (Auto) 9000 H (2179-1369) /uL Lymph # (Auto) 2900 (6759-9930) /uL Saunders # (Auto) 600 (0-900) /uL Eos # (Auto) 0 (0-450) /uL Baso # (Auto) 100 (0-100) /uL RBC Morphology See below Anisocytosis 2+ H Macrocytosis 2+ H Target Cells 2+ H Sodium 132 L (137-145) mmol/L Potassium 4.5 (3.4-5.1) mmol/L Chloride 105 (98-107) mmol/L Carbon Dioxide 14 L (22-32) mmol/L BUN 29 H (7-17) mg/dL Creatinine 1.26 H (0.52-1.04) mg/dL Estimated GFR 46 L (>60) mL/min BUN/Creatinine Ratio 23.0 H (6-22) Glucose 106 (80-110) mg/dL Calcium 8.9 (8.4-10.2) mg/dL Total Bilirubin 0.4 (0.2-1.3) mg/dL AST 22 (14-36) IU/L ALT 23 (<35) IU/L Alkaline Phosphatase 132 H (38-126) U/L Total Protein 7.0 (6.3-8.2) g/dL Albumin 3.7 (3.5-5.0) g/dL Globulin 3.3 (1.7-4.1) g/dL Albumin/Globulin Ratio 1.1 (1.0-2.8) SARS-CoV-2 (PCR) Negative (Negative) Imaging Data Extremity x-ray #1: Radiologist's Impression: Signed Patient: Emani Leiva MR#: [id number] : 1950 Acct:[id number] Age/Sex: 71 / F Date of Service: 07/14/22 Loc: ED Accession Number: [id number] ?? Procedure: XR shoulder LT min 2V Ordering Provider: Melisa Koo D.O. PROCEDURE:? XR SHOULDER LT MIN 2V ? INDICATIONS:? Clavicle fracture pain ? TECHNIQUE:? 2 views of the shoulder were acquired.? ? COMPARISON:? [facility], CR, XR SHOULDER RT MIN 2V, 07/11/2022, 20:34. ? FINDINGS:? ? Bones:? There is a left clavicular shaft fracture which is not well evaluated on the current study.? There are mildly displaced fractures of the left posterior 2nd and 3rd ribs. ? Soft tissues:? No suspicious soft tissue calcifications.? ? IMPRESSION:? ? 1. Left clavicular shaft fracture which is not well evaluated on the current study due to projection. ? 2. Mildly displaced fractures of the left 2nd and 3rd ribs posteriorly.? ? ? Dictated by: Festus Moreira M.D. on 07/14/2022 at 1:16 ? ? ECG Data Interpretation: Normal sinus rhythm rate 66 SD interval 168 QRS [address] changes or ischemic changes MDM Narrative Medical decision making narrative: Patient has been to the ER multiple times. She is has a right humerus fracture left clavicle fracture multiple broken ribs. She is unable to care for herself is. She requires now assistance in getting to the restroom she requires multiple doses of medication. Blood work looks relatively stable. There is no criteria for admission. Son lives with her but works frequently and not able to care for her all the time. May qualify for rehab. Awaiting PT evaluation and social Work consultation. Signed out to Dr. Vela for further management <Percy Chang MD - Last Filed: 07/15/22 16:32> Lab Data Labs: Lab Results 07/13/22 07/13/22 07/14/22 Range/Units 21:15 21:15 13:43 WBC 12.6 H (4.5-11.0) X10^3/uL RBC 2.55 L (4.0-5.2) X10^6/uL Hgb 9.6 L (12.0-16.0) g/dL Hct 28.6 L (36-46) % MCV 112.2 H (80-100) fL MCH 37.6 H (26-34) PG MCHC 33.5 (30-36) % RDW 19.1 H (11.6-14.8) % Plt Count 416 H (150-400) X10^3/uL Neut % (Auto) 71.1 (50-75) % Lymph % (Auto) 22.7 L (25-40) % Saunders % (Auto) 5.0 (3-14) % Eos % (Auto) 0.3 L (2-4) % Baso % (Auto) 0.9 (0-2) % Neut # (Auto) 9000 H (1893-2381) /uL Lymph # (Auto) 2900 (2956-6824) /uL Saunders # (Auto) 600 (0-900) /uL Eos # (Auto) 0 (0-450) /uL Baso # (Auto) 100 (0-100) /uL RBC Morphology See below Anisocytosis 2+ H Macrocytosis 2+ H Target Cells 2+ H Sodium 132 L (137-145) mmol/L Potassium 4.5 (3.4-5.1) mmol/L Chloride 105 (98-107) mmol/L Carbon Dioxide 14 L (22-32) mmol/L BUN 29 H (7-17) mg/dL Creatinine 1.26 H (0.52-1.04) mg/dL Estimated GFR 46 L (>60) mL/min BUN/Creatinine Ratio 23.0 H (6-22) Glucose 106 (80-110) mg/dL Calcium 8.9 (8.4-10.2) mg/dL Total Bilirubin 0.4 (0.2-1.3) mg/dL AST 22 (14-36) IU/L ALT 23 (<35) IU/L Alkaline Phosphatase 132 H (38-126) U/L Total Protein 7.0 (6.3-8.2) g/dL Albumin 3.7 (3.5-5.0) g/dL Globulin 3.3 (1.7-4.1) g/dL Albumin/Globulin Ratio 1.1 (1.0-2.8) SARS-CoV-2 (PCR) Negative (Negative) MDM Narrative Medical decision making narrative: Patient has been to the ER multiple times. She is has a right humerus fracture left clavicle fracture multiple broken ribs. She is unable to care for herself is. She requires now assistance in getting to the restroom she requires multiple doses of medication. Blood work looks relatively stable. There is no criteria for admission. Son lives with her but works frequently and not able to care for her all the time. May qualify for rehab. Awaiting PT evaluation and social Work consultation. Signed out to Dr. Vela for further management July 15, 2022 at 1:30 p.m.. Appropriate for discharge home. Patient has been evaluated by Physical therapy again and is up and walking and safely. Reviewed with social work as well and home health care will be provided. Son and patient are comfortable with this plan. Return precautions reviewed with her. Short course of pain medication has been provided. They desire discharge home Addendum. After patient was discharge. Pharmacy called the emergency department in to inform that patient just had oxycodone 10 mg tablets filled June 22, 2022 by primary care physician, 120 tablets. I informed pharmacy not to fill the prescription I had written for Percocet Discharge Plan Departure Patient Disposition: Home Clinical Impression: Clavicle fracture, Closed rib fracture Activity Restrictions/Additional Instructions: No driving operating machine when taking prescribed pain medication. Please do follow-up with home health care as provided here by social work and also see your family doctor and orthopedic provider. Return if worse if any questions or concerns. Prescriptions: New oxycodone-acetaminophen [Percocet] 5-325 mg tablet 2 tab PO Q8H PRN (Reason: pain) Qty: 20 0RF No Action oxycodone 10 mg tablet 10 mg PO Q6H PRN (Reason: pain) Qty: 120 0RF methocarbamol 500 mg tablet 500 mg PO BID Qty: 60 2RF Rx Instructions: Pt to start taking after completing her TID prescription. metoprolol tartrate 25 mg tablet 25 mg PO BID Qty: 180 1RF tizanidine 4 mg tablet 1 mg BID PRN (Reason: Pain (Scale Score 7-10)) Label Comments: TAKE ONE TABLET BY MOUTH TWICE DAILY NEEDED FOR MUSCLE SPASMS hydrocodone-acetaminophen 5-325 mg tablet 1 tab Q8HR PRN (Reason: Pain (Scale Score 7-10)) Label Comments: take 1 tablet by mouth every 8 hours as needed for pain pantoprazole 40 mg tablet,delayed release (DR/EC) 40 mg PO BID Label Comments: TAKE ONE TABLET BY MOUTH TWICE DAILY 30 minutes prior to meals gabapentin 300 mg Tablet 300 mg PO DAILY iron sucrose 200 mg iron/10 mL Solution 200 mg IV Q3D Qty: 100 0RF Rx Instructions: administer over 30 mins Referrals: Jairo Powers, [Primary Care Provider] - Visit Report Forms: Patient Portal/API
[2022-07-13] MEDS: HYDROMORPHONE 1 MG INJ IV (22:54)
--- NOTE | 2022-07-13 23:20 | PC.NURSE ---
With one person assist patient was able to get to edge of bed and stand to pivot to bedside commode. This RN did pericare for patient and then assisted patient back to bed where patient was able to lay herself back down in bed though patient reported pain with movement. Provider notified.
[2022-07-14] VITALS (49 sets, daily range): BP systolic 130–194; BP diastolic 69–108; PULSE 69–111; RESP 12–17; O2SAT 95–100
--- NOTE | 2022-07-14 00:14 | DI.RAD.S_ITS ---
PROCEDURE: XR SHOULDER LT MIN 2V INDICATIONS: Clavicle fracture pain TECHNIQUE: 2 views of the shoulder were acquired. COMPARISON: [facility], CR, XR SHOULDER RT MIN 2V, 07/11/2022, 20:34. FINDINGS: Bones: There is a left clavicular shaft fracture which is not well evaluated on the current study. There are mildly displaced fractures of the left posterior 2nd and 3rd ribs. Soft tissues: No suspicious soft tissue calcifications. IMPRESSION: 1. Left clavicular shaft fracture which is not well evaluated on the current study due to projection. 2. Mildly displaced fractures of the left 2nd and 3rd ribs posteriorly. Dictated by: Festus Moreira M.D. on 07/14/2022 at 1:16 Approved by: Festus Moreira M.D. on 07/14/2022 at 1:18
[2022-07-14] MEDS: HYDROMORPHONE 1 MG INJ IV ×6 (00:42→23:11)
[2022-07-14] MEDS: KETOROLAC 30 MG/ML VIAL 15 MG IV (00:42)
[2022-07-14] MEDS: ACETAMINOPHEN 325 MG TABLET 650 MG PO (03:03)
[2022-07-14] MEDS: OXYCODONE IR 5 MG TABLET 10 MG PO ×4 (03:03→21:16)
[2022-07-14] MEDS: METOPROLOL IR 25 MG TABLET PO ×2 (05:48→21:16)
--- NOTE | 2022-07-14 09:59 | PT.IIE ---
Surgical History (Last Reviewed 07/12/22 @ 00:46 by Jorge Mccall DO) H/O: hysterectomy History of surgery Hx of appendectomy Hx of cholecystectomy Hx of elbow surgery Hx of kyphoplasty (~2013) Hx of kyphoplasty (04/28/19) Hx of kyphoplasty (07/28/19) Hx of tonsillectomy Status post epidural steroid injection (03/25/19) Medical History (Last Reviewed 07/12/22 @ 00:46 by Jorge Mccall DO) Anxiety Arthritis C. difficile colitis Chronic pain Closed left clavicular fracture Colitis Compression fracture of L1 vertebra (~07/2019) COPD (chronic obstructive pulmonary disease) Depression Diarrhea DJD (degenerative joint disease) Fibromyalgia Fracture, tibia GI bleeding History of osteomyelitis History of recurrent UTIs HLD (hyperlipidemia) Hypertension Hypertension Insomnia Iron (Fe) deficiency anemia Left foot drop Left rib fracture Lumbar compression fracture (02/26/19) Migraines Multiple fractures Nephrolithiasis Neuropathy Numbness and tingling Osteoporosis Osteoporosis Peptic ulcer disease Pre-diabetes Radius fracture (08/30/17) Renal disease Stage 3 chronic kidney disease Physical Therapy Inpatient Evaluation/Re-Eval M1 PT/OT-IP Prior Functional Status Start: 07/14/22 09:36 Freq: Status: Active Protocol: Document 07/14/22 09:37 BC (Rec: 07/14/22 09:58 BC [id number]) Medical Review Prior Functional Status Medical History Reviewed Yes Communication WNL Mobility and Gait Independent with ambulation. No a.d. Hx of BLE neuropathy and dizziness but Pt declines use of A.D. as her PLOF. Recently in last 2-3 months Pt has sustained 3 falls. Activities of Daily Living and IADL's Caregiver 2 hrs daily M-F Lives with son and a landlord. They assist with meals/ shopping. Social History Household Members children,other Living Arrangements House Number of Floors (Floors) One Floor Number of Stairs To Enter/Railing? 3 steps, Pt does not report railing or not. States my son helps me up into the home. Home Environment Standard Height Toilet,Tub/ Shower,Narrow Doors Home Equipment Manual Wheelchair,Bedside Commode Employment Status Retired M2 PT-IP Current Condition Start: 07/14/22 09:36 Freq: Status: Active Protocol: Document 07/14/22 09:37 BC (Rec: 07/14/22 09:58 [id number]) Physical Therapy Current Condition Current Condition Evaluation Date 07/14/22 Treatment Diagnosis difficulty with ambulation Onset Date 07/13/22 M3 PT-IP Subjective Start: 07/14/22 09:36 Freq: Status: Active Protocol: Document 07/14/22 09:37 BC (Rec: 07/14/22 09:58 [id number]) Subjective Physical Therapy Visit Type Type Initial Evaluation Visit Start Time 09:00 Visit Stop Time 09:35 Total Visit Minutes 30 Physical Therapy Visit Comments Patient Comments I will go to a SNF for a few days but after that I know my caregiver can be around more and I'll be fine Patient Goals To rest in bed until I get my strength back Therapy Pain Assessment Pain When Pain Assessed At Rest Pain Present Pain Present Pain Reported Location Bilateral arms Intensity 10 Scale Used Numeric (0 - 10) Description Sharp,Shooting Pain Behaviors Calling Out,Facial Grimacing, Guarding,Holding Area,Moaning Pain Management Techniques Re-positioning,Timing of Activity with Medications M4 PT-IP Mobility and Gait Start: 07/14/22 09:36 Freq: Status: Active Protocol: Document 07/14/22 09:37 (Rec: 07/14/22 09:58 [id number]) PT-Bed Mobility Assessment Supine to Sit Supine to Sit Minimal Assistance Sit to Supine Sit to Supine Minimal Assistance Scooting Scooting to Edge of Bed Minimal Assistance PT-Transfer Assessment Sit to and From Stand Sit to and from Stand Minimal Assistance Equipment Transfer Assistive Device Gait Belt Transfers Transfer Technique Stand Step Pivot Transfer Ability Level of Assist Moderate Assistance Comments Mobility Comments LOB with 90 and 180 deg turns. Needing consistent mod A to prevent fall. Gait Assessment Gait Gait Assistance Required: Minimum Assistance Distance (Feet) 5 Assistive Devices Assistive Device None Gait Deviations General Gait Pattern Antalgic,Decreased Stride Length,Decreased Feet Clearance,Flexed Trunk,Lateral Trunk Lean Factors Limiting Gait Function Factors Limiting Gait Function Decreased Activity Tolerance, Decreased Sensation,Pain,Poor Balance Comments Gait Comments Guarded gait pattern. RUE in sling, Pt holds RUE shoulder with LUE, so crossed arm gait pattern, significant LOB with turns or direction changes. Stair Climbing Assessment Comments Stair Climbing Comments Not assessed at time of eval due to pain limitations, activity tolerance limitations and imbalance. PT-Balance Assessment Sitting Balance and Reactions Static Sitting Balance Ability Good Dynamic Sitting Balance Ability Fair Standing Balance and Reactions Static Standing Balance Ability Fair Dynamic Standing Balance Ability Poor Functional Assessments Functional Tests Tinetti Balance and Gait Assessment Tinetti: 06/15 M5 PT-IP Objective Assessments Start: 07/14/22 09:36 Freq: Status: Active Protocol: Document 07/14/22 09:37 BC (Rec: 07/14/22 09:58 [id number]) Orientation Orientation/Cognition Level of Alertness Alert Orientation Name,Month,Place,Situation Gross Range of Motion Upper Extremity ROM Assessment Bilaterally Impaired Lower Extremity ROM Assessment Within Functional Limits Strength Upper Extremity Strength Assessment Bilaterally Impaired Lower Extremity Strength Assessment Left Impaired Comments Strength Comments BUE strength not assessed due to L clavicular fx and rib fx and acute R humeral fracture in sling. BLE strength LLE grossly 4-/5 vs RLE 5/5. Pt states that is my weak side and always has been. Sensation Assessment Sensation Gross Sensation Right LE Impaired,Left LE Impaired Light Touch Impaired Proprioception (Position) Impaired Sensation Description Numbness,Tingling Comments Sensation Comments Pt reports my legs will just go numb and give out on me because of neuropathy. M6 PT-IP Treatment Start: 07/14/22 09:36 Freq: Status: Active Protocol: Document 07/14/22 09:37 BC (Rec: 07/14/22 09:58 [id number]) Physical Therapy Treatment Other Treatments Other Treatment Performed Education with Pt and son regarding SNF. Timeline of typically several weeks of therapy/rehab. Safety concerns with discharge home and Pt's plan of staying in bed at all times; this could result in multitude of other medical diagnoses. M7 PT-IP Assessment and Plan Start: 07/14/22 09:36 Freq: Status: Active Protocol: Document 07/14/22 09:37 BC (Rec: 07/14/22 09:58 [id number]) PT Summary Assessment and Plan Potential Rehabilitation Potential Good Status of Condition at Evaluation Stable Summary Impairments Pain,ROM,Strength,Balance, Coordination,Sensation,Bed Mobility,Transfers,Gait, Activity Tolerance Assessment Summary Pt admitted from home with inability to manage in her home. Pt sustained a L clavicular fx and rib fx on Jun 21 due to a fall, unfortunately she fell again on Jul 11 resulting in R humeral head fx which she is now NWB and in a sling. Pt reports 3 falls in last 2 months. She has chronic dizziness/vertigo. She was instructed after both fx to seek orthopedic consult which she has not done per her report. She does not use a.d. for ambulation at baseline. She lives with her son whom both rent rooms from a landlord. Pt states her son works but she has a caregiver 2 hrs M-F. Her landlord helps with meals. Pt states after shoulder fx on Jul 11 she stayed in bed for 3 days. Reports soiling herself and not eating/drinking. Son confirms this. Her caregiver was not available due to personal illness. Pt is requiring min to mod assist for bed transfers and ambulation of very short distances. She experienced several near LOB without therapist intervention would result in a fall. She does not have adequate caregiver assistance at home based on her current mobility deficits and diagnoses. Recommend SNF for daily therapy to regain balance, train on proper assistive devices and transfer techniques and increase strength for independent transfers. Goals Bed Mobility Goal Standby Assistance Transfer Goal Standby Assistance Gait Goal Standby Assistance Gait Distance 50 Other Goals Ascend/descend 3 steps with CGA Days to Meet Goals 5 Frequency of Treatment Frequency Of Treatment Once a Day Treatment Plan Physical Therapy Treatment Plan Bed Mobility Training,Transfer Training,Gait Training, Therapeutic Exercise,Balance Retraining,Discharge Planning, Neuromuscular Re-ed, Coordination Retraining Precautions Brace Most recent information found in medical records. As of 06/21 Pt was to wear LUE in sling due to clavicle fx. RUE in sling due to R humeral fx and NWB. Pt is no longer wearing LUE in sling in order to use that extremity to function, this is by her choice. I have found no records that this is recommended yet by physician. Weight Bearing Status Weight Bearing Status Non-Weight Bearing Allowed Weight Bearing Amount (enter % RUE NWB or #) (%) Recommendations To Nursing Amount of Assist Needed 1 Person Assist Discharge Recommendations PT Discharge Recommendations SNF Rehab Transportation Needs at Discharge Wheelchair/Cabulance
--- NOTE | 2022-07-14 13:48 | CM.DPNOTE ---
DCP Assessment Note Patient is 71 y/o female who presents to ED due to dizziness and recent GLFs. Patient had GLF on 07/11/22 and presented to ED via EMS on that day for similar concerns. Patient has hx of 11 ED visits within the last 12 months, and 3 ED visits at this ED within a month. Patient's PCP is Dr. Jairo Powers, patient has Medicaid and Medicare Insurance. Patient has hx of anemia, dizziness, frequent falls, various fractures, Hypertension, COPD, and HLD. BULK FILLER introduces self and role and enters room to meet with patient. Patient presents as A/Ox3. Soon after BULK FILLER enters room, patient's son Francis enters room. Patient endorses her desire to return home. Patient endorses she has KIZZ[employer] caregiver 5 days a week M-F for 5 hours a day, patient endorses concern for losing caregiver. Patient endorses hx of [facility] and desire to continue with [facility] if patient d/c's to home. BULK FILLER discusses ED provider's and PT's recommendation for SNF rehab, patient endorses hesitancy but states she will give SNF rehab a try and is only willing to go to [facility] due to the proximity to her home. BULK FILLER discusses that BULK FILLER will attempt to get patient to SNF rehab but it is unknown about their availability and ability to accept patient. Patient endorses agreement to [facility] if patient is to d/c to home, patient endorses preference to wait in the ED only one day to see if she can get into SNF and would like to go home. Patient's son endorses concern for patient and his preference is for patient to go to SNF rehab. Per patient and son, patient has been able to ambulate independently prior to falls without DME. Patient endorses she has bedside commode and wheelchair at home. Patient resides at home with son and landlord in [place]. Patient endorses her caregiver attends to all of her ADL needs and her landlord provides her meals. Patient endorses decreased mobility due to fractures, neuropathy in leg. It is reported that her caregiver has been unable to care for patient recently due to family's personal illness but patient's caregiver can return to serving patient soon. PT recommends SNF rehab for patient and states patient is mid to mod assist for bed transfers. BULK FILLER calls [facility] and leaves VM and faxes clinicals for review. BULK FILLER to call [facility] as plan B to continue PT and OT services and add RN, BULK FILLER and HH aide to referral. Plan: Continue to f/u [facility] for transfer to SNF Rehab. Plan B: Home with caregiver and [facility] as well as family support. Patient has close f/u with PCP Dr. Powers as well. MARIKA Dave Discharge Planning/Care Management CM Discharge Assessment Start: 07/14/22 13:37 Freq: Status: Active Protocol: Document 07/14/22 13:37 LN (Rec: 07/14/22 13:45 LN [id number]) Discharge Planning Assessment Assigned Irrigator Gravity Flow MARIKA Gallo DPOA/Assigned Designee Name Francis Leiva - Son Contact Information [phone] Advance Directives? Yes Advance Directives on File No History Provided By Patient,Family Member,Medical Record Has Patient been admitted in last 30 No days? Prior Living Arrangements House Household Members children,other Type of transporation used prior to Relies on Others admit Independent with ADL's No Is patient alert and oriented? Yes Needs Assistance With Bathing,Grooming,Meal Prep, Toileting,Managing Medications ,Home Chores / Shopping DME Already Rented / Owned Wheelchair,Bedside Commode Comment Patient endorses she has a wheelchair and bedside commode at home. Patient endorses that she has not been using DME to ambulate at baseline. Comment KIZZY Martinez Patient/Family Preference [facility] Facility,Home with Home Health Comment Patient's preference is home with HH, patient also willing to see if [facility] SNF rehab has beds. Additional Comment SNF vs [facility], patient endorses she has been engaged in [facility] services for years. SNF/HH Preference Verbally Discussed. Patient's SNF preference is [facility], and does not want to go anywhere else [facility] Yes Please Provide Date Initial DC 07/14/22 Assessment Was Performed
[2022-07-14 14:24] LABS: COVID19 -Nasal RAPID Negative (Negative)
--- NOTE | 2022-07-14 17:23 | PC.NURSE ---
Addendum entered by Ezra Cottrell R.N. 07/14/22 17:47: Pt asks if anything else can be given or a muscle relaxer to help everything calm down. Discussed with provider and new verbal order of 5mg PO valium. Original Note: Pt reports 10/10 pain. Discussion with provider about pain management. Per provider continue course of current orders.
[2022-07-14] MEDS: diazePAM 5 MG TABLET PO (17:57)
--- NOTE | 2022-07-14 19:08 | CM.DPC ---
DCP Note continued STAGECRAFT TEACHER called Phoebe at [facility] via cellphone and left requesting return call regarding SNF rehab referral. STAGECRAFT TEACHER completed PASSR and F2F form in preparation for either plan of care for patient. STAGECRAFT TEACHER calls [facility] and it is reported that patient's services with [facility] ended in April 2022, STAGECRAFT TEACHER endorses that there will likely be a new referral for patient and STAGECRAFT TEACHER will call and fax referral tomorrow if service is needed. Plan: SNF rehab vs. Home with [facility] and caregiver at home with son. Cleo Elina, PARCEL POST TRUCK DRIVER
[2022-07-15] VITALS (39 sets, daily range): BP systolic 102–158; BP diastolic 53–85; PULSE 79–110; RESP 18; O2SAT 97–100
[2022-07-15] MEDS: ACETAMINOPHEN 325 MG TABLET 650 MG PO ×2 (00:26→05:02)
[2022-07-15] MEDS: HYDROMORPHONE 1 MG INJ IV ×3 (02:16→12:30)
[2022-07-15] MEDS: OXYCODONE IR 5 MG TABLET 10 MG PO ×2 (03:45→10:03)
[2022-07-15] MEDS: diazePAM 5 MG TABLET PO (06:51)
[2022-07-15] MEDS: METOPROLOL IR 25 MG TABLET PO (08:58)
--- NOTE | 2022-07-15 10:38 | PC.NURSE ---
RN continuing to encourage pt to get up to chair, pt states she will try at a later time.
--- NOTE | 2022-07-15 13:30 | PT.IPTN ---
Physical Therapy Treatment Note M2 PT-IP Current Condition Start: 07/14/22 09:36 Freq: Status: Active Protocol: Document 07/14/22 09:37 BC (Rec: 07/14/22 09:58 BC [id number]) Physical Therapy Current Condition Current Condition Evaluation Date 07/14/22 Treatment Diagnosis difficulty with ambulation Onset Date 07/13/22 M3 PT-IP Subjective Start: 07/14/22 09:36 Freq: Status: Active Protocol: Document 07/15/22 13:14 BC (Rec: 07/15/22 13:29 [id number]) Subjective Physical Therapy Visit Type Type Treatment Note Visit Start Time 12:40 Visit Stop Time 13:05 Total Visit Minutes 25 Physical Therapy Visit Comments Patient Comments Pt reports readiness to go home. States she will be using her wheelchair. Patient Goals None reported Therapy Pain Assessment Pain When Pain Assessed At Rest Location Bilateral arms Pain Behaviors Facial Grimacing,Holding Area Pain Management Techniques Re-positioning M4 PT-IP Mobility and Gait Start: 07/14/22 09:36 Freq: Status: Active Protocol: Document 07/15/22 13:14 BC (Rec: 07/15/22 13:29 [id number]) PT-Bed Mobility Assessment Supine to Sit Supine to Sit Independent Sit to Supine Sit to Supine Independent Scooting Scooting to Edge of Bed Independent PT-Transfer Assessment Sit to and From Stand Sit to and from Stand Standby Assistance Equipment Transfer Assistive Device None Orthotic/Prosthetic Devices or Brace: Yes Transfers Transfer Destination Bed Transfer Technique Stand Step Pivot Transfer Ability Level of Assist Standby Assistance Comments Mobility Comments SBA for upright mobility due to hx of falls. No physical support needed today. No LOB witnessed. Gait Assessment Gait Gait Assistance Required: Standby Assistance,Contact Guard Assist Distance (Feet) 75 Assistive Devices Assistive Device None Gait Deviations General Gait Pattern Antalgic,Decreased Stride Length,Decreased Feet Clearance,Flexed Trunk Factors Limiting Gait Function Factors Limiting Gait Function Decreased Activity Tolerance, Decreased Sensation,Pain,Poor Balance Comments Gait Comments Pt ambulated significantly better today. No LOB. Good balance with turns/direction changes. Able to demo marching gait with CGA for balance to mimic lifting LE up onto steps /stairs. Stair Climbing Assessment Comments Stair Climbing Comments NT in ED. Demo'd balance to flex hip/knee to stair height while walking forward and just SBA to CGA. Son will assist with stairs at home to enter. PT-Balance Assessment Sitting Balance and Reactions Static Sitting Balance Ability Normal Dynamic Sitting Balance Ability Normal Standing Balance and Reactions Static Standing Balance Ability Fair Dynamic Standing Balance Ability Fair Device Used none M5 PT-IP Objective Assessments Start: 07/14/22 09:36 Freq: Status: Active Protocol: Document 07/15/22 13:14 BC (Rec: 07/15/22 13:29 [id number]) Orientation Orientation/Cognition Level of Alertness Alert Orientation Name,Month,Place,Situation M6 PT-IP Treatment Start: 07/14/22 09:36 Freq: Status: Active Protocol: Document 07/15/22 13:14 BC (Rec: 07/15/22 13:29 [id number]) Physical Therapy Treatment Other Treatments Other Treatment Performed Educated on sling positioning. Sling was not on forearm at all. Strap at distal end of sling was around mid forearm and was only piece of fabric holding arm in position. Adjusted sling and educated Pt on using trunk strap for support to reduce weight through shoulder/neck strap due to L clavicle fx. Pt states positioning is helpful. M7 PT-IP Assessment and Plan Start: 07/14/22 09:36 Freq: Status: Active Protocol: Document 07/15/22 13:14 BC (Rec: 07/15/22 13:29 [id number]) PT Summary Assessment and Plan Potential Rehabilitation Potential Good Status of Condition at Evaluation Stable Summary Impairments Pain,ROM,Strength,Balance, Coordination,Sensation,Bed Mobility,Transfers,Gait, Activity Tolerance Progress Towards Goals Safe For Discharge,Goals Met Assessment Summary Pt improved with mobility today. She is able to transfer sit<>supine and sit <>stand with independence to SBA. SHe is to d/c home with her son and caregiver. Caregiver is able to come to home tonight per Pt. She also has a w/c at home to use. HHPT is strongly encouraged to Pt so that she can learn to safely mobilize as her plan of staying in bed until her fx heal is not a viable option (which we reviewed yesterday). Pt agreeable to HHPT. Goals Bed Mobility Goal Standby Assistance Transfer Goal Standby Assistance Gait Goal Standby Assistance Gait Distance 50 Other Goals Ascend/descend 3 steps with CGA 07/15/22 - goals met today with modification to mimic stair goal. Days to Meet Goals 5 Frequency of Treatment Frequency Of Treatment Discharge Precautions Brace RUE sling Weight Bearing Status Weight Bearing Status Non-Weight Bearing Allowed Weight Bearing Amount (enter % RUE NWB or #) (%) Recommendations To Nursing Amount of Assist Needed 1 Person Assist Discharge Recommendations PT Discharge Recommendations Home with Assistance,Home with 24/7 Assist Available,Home Health Other Discharge Recommendations Pt to use manual w/c for safety at home. HHPT to progress mobility. Transportation Needs at Discharge Private Vehicle
--- NOTE | 2022-07-15 13:42 | CM.DPC ---
DCP Note Continued [employer] [facility] [place] [facility] [place] is [place] that there is no one in admissions today and they will return to work tomorrow. GROUND CREWMAN [employer] SUPPORT calls [facility] and it is reported that if referral is submitted today, services will start at late as Saturday. GROUND CREWMAN MISSION SUPPORT observes patient ambulate with one person assist without DME with PT, patient endorses preference to d/c to home with [facility], caregiver and son. GROUND CREWMAN M[employer]ION SUPPORT faxes F2F, order and clinicals to [facility] for PT, OT, HH aide, RN and [employer] HH referral. GROUND CREWMAN MISSION SUPPORT reviews this with patient, son and ED provider who indicate agreement and understanding. Plan: Patient to d/c to home via POV with son, caregiver and [facility] in place for patient, patient to f/u with PCP and Orthopedics. Patient to d/c to home today upon medical clearance. DAO DaveSW
--- NOTE | 2022-07-15 15:24 | PC.NURSE ---
Call taken from [facility] pharmacy in [place]. Pt received percocet 5mg from Dr Chang upon DC. Advised that pt received 120 tabs of oxycodone 10mg from Dr Powers on 06/22 which she gets monthly. Dr Chang DC'd RX for percocet. Pt made aware by pharmacy.
== END 2022-07-15 14:15 | disposition home or self-care (01) ==
PROVIDERS: Emergency Medicine; Emergency Provider Emergency Medicine; PCP Family Medicine
DX: S42.002D Fracture of unspecified part of left clavicle, subsequent encounter for fracture with routine healing (principal); S22.49XG Multiple fractures of ribs, unspecified side, subsequent encounter for fracture with delayed healing; R29.6 Repeated falls
CPT/HCPCS: 73030; 80053; 85025; 87635; 93005; 96361; 96374; 96375; 96376; 97163; 97530; 99284; C9803; J1170; J1885

== ENCOUNTER 2022-07-21 12:28 | Emergency (ER) | payer MEDICARE, MEDICAID, SELFPAY ==
[2022-07-10 10:21] VITALS: BMI 15.7
[2022-07-21] VITALS (159 sets, daily range): BP systolic 79–166; BP diastolic 48–108; PULSE 75–104; RESP 9–45; TEMP 30.5–37.1; O2SAT 98–100
[2022-07-21] MEDS: DEXTROSE 50 % IN WATER 25 GM/50 ML SYRINGE IV (12:23)
--- NOTE | 2022-07-21 12:30 | DI.CT.S_ITS ---
PROCEDURE: CT CERVICAL SPINE WO CON INDICATIONS: altered TECHNIQUE: Noncontrast 3 mm thick sections acquired from the skull base to the T4 level. Sagittal and coronal reformats were then constructed. For radiation dose reduction, the following was used: automated exposure control, adjustment of mA and/or kV according to patient size. COMPARISON: [facility], CT, CT CERVICAL SPINE WO CON, 02/09/2022, 18:17. FINDINGS: No fracture or dislocation. Unchanged anterolisthesis of C2 on C3. Degenerative straightening of the usual cervical lordosis is similar. Multilevel multifactorial spondylitic and spondylo arthropathic changes are similar. No acute finding in the lung apices. IMPRESSION: No acute finding. Dictated by: Jason Castle M.D. on 07/21/2022 at 13:12 Approved by: Jason Castle M.D. on 07/21/2022 at 13:18
--- NOTE | 2022-07-21 12:30 | DI.CT.S_ITS ---
PROCEDURE: CT HEAD/BRAIN WO CON INDICATIONS: altered TECHNIQUE: Noncontrast 4.5 mm thick angled axial sections acquired from the foramen magnum to the vertex, with coronal and sagittal reformats. For radiation dose reduction, the following was used: automated exposure control, adjustment of mA and/or kV according to patient size. COMPARISON: None. FINDINGS: Image quality: Excellent. CSF spaces: Basal cisterns are patent. No extra-axial fluid collections. The ventricles are symmetric in size and shape. Brain: No intracranial bleeds or masses. There is cerebral volume loss for age, with resultant ventricular and sulcal prominence. There are periventricular and deep white matter chronic small vessel ischemic changes. There is intracranial internal carotid artery atherosclerosis. Skull and face: Calvarium and visualized facial bones appear intact, without suspicious lesions. Sinuses: Visualized sinuses and mastoids are clear. IMPRESSION: No acute intracranial finding. Dictated by: Jason Castle M.D. on 07/21/2022 at 13:18 Approved by: Jason Castle M.D. on 07/21/2022 at 13:21
--- NOTE | 2022-07-21 12:30 | DI.RAD.S_ITS ---
PROCEDURE: XR CHEST 1V INDICATIONS: a ltered TECHNIQUE: One view of the chest was acquired. COMPARISON: [facility], , XR CHEST 1V, 03/28/2022, 14:20. FINDINGS: Acute mildly displaced left rib fractures with adjacent suspected pulmonary contusion. No pleural effusion or pneumothorax. Lungs are clear otherwise. Normal heart size. IMPRESSION: Acute mildly displaced left rib fractures with adjacent small pulmonary contusion. Dictated by: Jason Castle M.D. on 07/21/2022 at 14:19 Approved by: Jason Castle M.D. on 07/21/2022 at 14:19
[2022-07-21] MEDS: NALOXONE 0.4 MG/ML VIAL 0.2 MG IV (12:52)
[2022-07-21 13:13] LABS: Add Manual Diff / Slide Review NO; Basophils Absolute Auto 100 /uL (0-100); Basophils Percent Auto 0.4 % (0-2); Eosinophils Absolute Auto 0 /uL (0-450); Eosinophils Percent Auto 0.1 % (2-4); Hematocrit 33.1 % (36-46); Hemoglobin 10.6 g/dL (12.0-16.0); Lymphocytes Absolute Auto 1000 /uL (1100-4500); Lymphocytes Percent Auto 4.4 % (25-40); Mean Corpuscular Hemoglobin 37.9 PG (26-34); Mean Corpuscular Volume 118.4 fL (80-100); Monocytes Absolute Auto 600 /uL (0-900); Monocytes Percent Auto 2.7 % (3-14); Neutrophils Absolute Auto 22000 /uL (1500-7000); Neutrophils Percent Auto 92.4 % (50-75); Platelet Count 453 X10^3/uL (150-400); Red Blood Cell Count 2.79 X10^6/uL (4.0-5.2); Red Cell Distribution Width 19.2 % (11.6-14.8); White Blood Cell Count 23.8 X10^3/uL (4.5-11.0)
[2022-07-21 13:14] LABS: INR 1.1 (0.9-1.3); Prothrombin Time 12.7 SECONDS (10.1-12.7)
[2022-07-21 13:16] LABS: PTT Partial Thromboplastin Tim 42 SECONDS (26-36)
[2022-07-21 13:18] LABS: Alanine Aminotransferase 28 IU/L (<35); Albumin 3.9 g/dL (3.5-5.0); Albumin Globulin Ratio 1.1 (1.0-2.8); Alkaline Phosphatase 316 U/L (38-126); Aspartate Aminotransferase 50 IU/L (14-36); Bilirubin Total 1.2 mg/dL (0.2-1.3); Blood Urea Nitrogen 65 mg/dL (7-17); Calcium 8.7 mg/dL (8.4-10.2); Chloride 101 mmol/L (98-107); Creatine Kinase 145 U/L (30-135); Estimated Glomerular Filt Rate 13 mL/min (>60); Ethanol (ETOH) < 10 mg/dL; Globulin 3.4 g/dL (1.7-4.1); Glucose 302 mg/dL (80-110); Potassium 4.7 mmol/L (3.4-5.1); Salicylate 1.1 mg/dL (<20); Sodium 137 mmol/L (137-145); Total Protein 7.3 g/dL (6.3-8.2)
[2022-07-21] MEDS: SODIUM CHLORIDE 0.9% 1,000 ML 1000 ML IV ×2 (13:18→17:06)
[2022-07-21 13:19] LABS: Lactate (Lactic Acid) 3.3 mmol/L (0.7-2.1)
[2022-07-21 13:20] LABS: Ammonia (NH3) 219 umol/L (9-30)
--- NOTE | 2022-07-21 13:23 | ED.AMS ---
HPI - Altered Mental Status <Cynthia Kennedy, DO - Last Filed: 07/23/22 12:09> General Chief Complaint: Altered Mental Status Stated Complaint: Hit head Time Seen by Provider: 07/21/22 12:29 Source: EMS and old records reviewed Mode of arrival: EMS Limitations: altered mental status History of Present Illness HPI narrative: This is a 71-year-old female history of anemia, prior overdose attempts, prior fracture of the humerus and clavicle in June was called by EMS for hitting her head. They found her on the ground they state glucose was in the 40s in the field they were unable to give dextrose through her PICC line after contacting their med control for concern for infection so she received an amp in the rig here on arrival. She had improved to the 50s without intervention prior. Medics had attempted an EJ in the field but was unsuccessful. Patient is reported to have hit her head found on the ground was reported maybe 15 minute loss of consciousness or altered illness by boyfriend at the scene. Patient unable to participate in history. Medics state mentation has not improved in any way during her transfer here from the field. Related Data Home Medications Medication Instructions Recorded Confirmed gabapentin 300 mg tablet 300 mg PO DAILY 05/02/22 07/14/22 hydrocodone 5 mg-acetaminophen 325 1 tab Q8HR PRN Pain (Scale Score 07/14/22 07/14/22 mg tablet 7-10) pantoprazole 40 mg tablet,delayed 40 mg PO BID 07/14/22 07/14/22 release tizanidine 4 mg tablet 1 mg BID PRN Pain (Scale Score 07/14/22 07/14/22 7-10) Previous Rx's Medication Instructions Recorded metoprolol tartrate 25 mg tablet 25 mg PO BID #180 tabs 02/16/22 iron sucrose 200 mg iron/10 mL 200 mg (10 mL) IV Q3D #100 mL 06/06/22 intravenous solution methocarbamol 500 mg tablet 500 mg PO BID #60 tabs 06/22/22 oxycodone-acetaminophen 5 mg-325 2 tab PO Q8H PRN pain #20 tabs 07/15/22 mg tablet (Percocet) oxycodone 10 mg tablet 10 mg PO Q6H PRN pain #120 tabs 07/20/22 Allergies Allergy/AdvReac Type Severity Reaction Status Date / Time furosemide [From Lasix] Allergy Intermediate Rash Verified 07/13/22 20:52 tramadol [TRAMADOL] Allergy Unknown Verified 07/13/22 20:52 amitriptyline [AMITRIPTYLINE] AdvReac Intermediate Confusion Verified 07/13/22 20:52 Review of Systems <Cynthia Kennedy DO - Last Filed: 07/23/22 12:09> Review of Systems ROS Unobtainable: Unobtainable due to mental status/LOC Patient History <Cynthia Kennedy DO - Last Filed: 07/23/22 12:09> Medical History Anxiety Arthritis C. difficile colitis Chronic pain Closed left clavicular fracture Colitis Compression fracture of L1 vertebra (~07/2019) COPD (chronic obstructive pulmonary disease) Depression Diarrhea DJD (degenerative joint disease) Fibromyalgia Fracture, tibia GI bleeding History of osteomyelitis History of recurrent UTIs HLD (hyperlipidemia) Hypertension Hypertension Insomnia Iron (Fe) deficiency anemia Left foot drop Left rib fracture Lumbar compression fracture (02/26/19) Migraines Multiple fractures Nephrolithiasis Neuropathy Numbness and tingling Osteoporosis Osteoporosis Peptic ulcer disease Pre-diabetes Radius fracture (08/30/17) Renal disease Stage 3 chronic kidney disease Surgical History H/O: hysterectomy History of surgery Hx of appendectomy Hx of cholecystectomy Hx of elbow surgery Hx of kyphoplasty (~2013) Hx of kyphoplasty (04/28/19) Hx of kyphoplasty (07/28/19) Hx of tonsillectomy Status post epidural steroid injection (03/25/19) Family History Mother No known health problems COPD (chronic obstructive pulmonary disease) Father No known health problems Social History household members: children and other Smoking Status: Former smoker alcohol intake: current Smoking Status: Former smoker alcohol intake frequency: holidays/special occasions only Substance Use Type: does not use and former substance user Exam <Cynthia Kennedy DO - Last Filed: 07/23/22 12:09> Narrative Exam Narrative: GEN: Elderly appearing female, eyes open spontaneously, no eye contact or indication that patient is aware of staff other than response to noxious stimuli but patient is obtunded,, patient appears to be in moderate to severe distress. Patient is cold to touch. HEENT: Atraumatic, pupils are equal round reactive to light, no miosis, extraocular movements are intact, nares are clear, TMs are clear with no fluid, there is no conjunctival pallor. Throat is clear without any exudates, erythema, tonsillar enlargement or uvular deviation, no facial droop HEART: Regular rate and rhythm without murmur, clicks, rubs. LUNGS:Lungs clear to auscultation, no wheezes, rales, crackles, chest moves symmetrically, mildly tachypneic. ABD:bowel sounds normal, soft, non-tender, no guarding, rebound, rigidity, no masses noted, no hepatosplenomegaly :No CVA tenderness MSCL: Non-tender, no muscle atrophy, muscles strength 5/5 upper and lower extremities, full range of motion, localizes to noxious stimuli does not follow any commands NEURO: Patient has spontaneous movement of all 4 extremities without any restriction of movement, muscle strength appears to be 5/5, she does sort of hold her arms contracted but will relax and move them independently. Initial Vital Signs Initial Vital Signs: Vital Signs Pulse Rate 95 H 07/21/22 12:28 Respiratory Rate 24 07/21/22 12:28 Pulse Oximetry 99 07/21/22 12:28 <Melisa Koo, DO - Last Filed: 07/22/22 18:16> Initial Vital Signs Initial Vital Signs: Vital Signs Pulse Rate 95 H 07/21/22 12:28 Respiratory Rate 24 07/21/22 12:28 Pulse Oximetry 99 07/21/22 12:28 Procedures <Cynthia Kennedy, DO - Last Filed: 07/23/22 12:09> Central Line Placement Right IJ: Time Out Performed: Yes Patient Placed on Monitor/Pulse Ox: Yes MD Prep: mask and gloves Central Line Prep: Povidone-Iodine 1%, Chlorhexidine scrub and sterile drapes applied Ultrasound Used for Placement: Yes Central Line Lumen Inserted: triple Post Procedure: sutured in place, good blood return, all ports aspirated, flushed, capped and sterile dressing applied Post Procedure X-Ray: tip of catheter in good position and no pneumothorax seen Patient Tolerated Procedure: Well Complications: catheter malposition (line pulled back, coiled outside of neck to shorten is no within Subcutaneous tissue) and other Intubation Time out performed: Yes sedative: Etomidate Mg Given: 10 paralytic: Succinylcholine Mg Given: 150 Laryngoscope: fiber optic video scope (glidoscope) Assist Device Used: fiber optic device ET Tube Size: 7 ET Tube Uncuffed: Yes Tube Secured Depth (cm): 20 Tube Secured Location: teeth Tube Placement Confirmation: Visualized tube passing through cords, Equal breath sounds bilaterally, No breath sounds over epigastrium, Confirmation by capnometry and Chest Xray Patient Tolerated Procedure: Well and No complications Scores <Cynthia Kennedy, DO - Last Filed: 07/23/22 12:09> GCS Seward coma scale eye opening: Spontaneous Seward coma scale verbal response: None Seward coma scale motor response: Localising [place]ard coma scale total score: 10 <Melisa Koo, DO - Last Filed: 07/22/22 18:16> GCS [place]ard coma scale total score: 10 Course <Cynthia Kennedy, DO - Last Filed: 07/23/22 12:09> Orders Ordered: Discontinued Medications Sodium Chloride 9 ml/ (Epinephrine HCl 0.1 mg) 0 ml IV NOW ONE Stop: 07/21/22 15:03 Last Admin: 07/22/22 02:18 Dose: Not Given Documented By: AALIYAH Dextrose (Dextrose 50 % In Water 25 Gm/50 Ml Syringe) 25 gm IV PRN PRN PRN Reason: Hypoglycemia Last Admin: 07/21/22 12:23 Dose: 25 gm Documented By: NIA Dextrose (Dextrose 50 % In Water 25 Gm/50 Ml Syringe) 25 gm IV NOW ONE Stop: 07/22/22 06:49 Last Admin: 07/22/22 06:35 Dose: 12.5 gm Documented By: AALIYAH Enoxaparin Sodium (Enoxaparin 40 Mg/0.4 Ml Syringe) 45 mg 1 mg/kg (45 mg) SUBCUT NOW ONE Stop: 07/21/22 23:53 Last Admin: 07/22/22 00:24 Dose: 40 mg Documented By: RL Etomidate (Etomidate 2 Mg/Ml 10 Ml Vial) 10 mg IV NOW ONE Stop: 07/21/22 14:58 Last Admin: 07/21/22 15:05 Dose: 10 mg Documented By: AT Fentanyl (Fentanyl 100 Mcg/2 Ml Inj) 50 mcg IV Q15MIN PRN PRN Reason: Agitation Last Admin: 07/22/22 16:07 Dose: 50 mcg Documented By: Admin: 07/22/22 15:10 Dose: 50 mcg Documented By: Admin: 07/22/22 14:28 Dose: 50 mcg Documented By: Admin: 07/21/22 18:18 Dose: 50 mcg Documented By: Admin: 07/21/22 16:23 Dose: 50 mcg Documented By: Admin: 07/21/22 15:39 Dose: 50 mcg Documented By: Admin: 07/21/22 15:23 Dose: 50 mcg Documented By: AT Hydrocortisone (Hydrocortisone 100 Mg/2 Ml Vial) 300 mg IV NOW ONE Stop: 07/22/22 09:53 Last Admin: 07/22/22 10:32 Dose: 300 mg Documented By: BIBIANA Hydrocortisone (Hydrocortisone 100 Mg/2 Ml Vial) 100 mg IV Q8H [facility] Sodium Chloride (Normal Saline 0.9%) 1,000 mls @ 1,000 mls/hr IV BOLUS ONE Stop: 07/21/22 13:28 Last Infusion: 07/21/22 14:14 Dose: 0 mls/hr Documented By: Admin: 07/21/22 13:18 Dose: 1,000 mls/hr Documented By: AT Acetylcysteine 21.69446 g/ (Dextrose) 1,609.9512 mls @ 67.081 mls/hr IV NOW ONE Stop: 07/21/22 13:24 Last Infusion: 07/22/22 15:28 Dose: 0 mls/hr Documented By: Admin: 07/21/22 14:17 Dose: 67.081 mls/hr Documented By: AT Lactated Ringer's (Lactated Ringers) 1,000 mls @ 1,000 mls/hr IV BOLUS ONE Stop: 07/21/22 15:05 Last Infusion: 07/21/22 15:13 Dose: 0 mls/hr Documented By: Admin: 07/21/22 14:13 Dose: 1,000 mls/hr Documented By: AT Fentanyl 1,000 mcg/ Dextrose 250 mls @ 11.453 mls/hr IV TITRATE [facility]; Protocol Last Titration: 07/22/22 15:58 Dose: 0 mcg/kg/hr, 0 mls/hr Documented By: Titration: 07/22/22 06:35 Dose: 0 mcg/kg/hr, 0 mls/hr Documented By: Titration: 07/22/22 05:29 Dose: 1 mcg/kg/hr, 11.453 mls/hr Documented By: Admin: 07/22/22 01:20 Dose: 2.5 mcg/kg/hr, 28.633 mls/hr Documented By: Titration: 07/22/22 01:20 Dose: 2.5 mcg/kg/hr, 28.633 mls/hr Documented By: Titration: 07/21/22 18:20 Dose: 2.5 mcg/kg/hr, 28.633 mls/hr Documented By: Titration: 07/21/22 18:00 Dose: 2 mcg/kg/hr, 22.907 mls/hr Documented By: Titration: 07/21/22 16:21 Dose: 1.5 mcg/kg/hr, 17.18 mls/hr Documented By: Admin: 07/21/22 15:38 Dose: 1 mcg/kg/hr, 11.453 mls/hr Documented By: AT Midazolam HCl 50 mg/ Dextrose 250 mls @ 25 mls/hr IV TITRATE [facility]; Protocol Last Infusion: 07/21/22 20:57 Dose: 0 mg/hr, 0 mls/hr Documented By: Admin: 07/21/22 20:25 Dose: 13.74 mg/hr, 68.7 mls/hr Documented By: Infusion: 07/21/22 20:25 Dose: 13.74 mg/hr, 68.7 mls/hr Documented By: Infusion: 07/21/22 18:40 Dose: 13.74 mg/hr, 68.7 mls/hr Documented By: Infusion: 07/21/22 16:20 Dose: 9 mg/hr, 45 mls/hr Documented By: Admin: 07/21/22 15:34 Dose: 5 mg/hr, 25 mls/hr Documented By: AT Sodium Chloride (Normal Saline 0.9%) 1,000 mls @ 1,000 mls/hr IV BOLUS ONE Stop: 07/21/22 18:01 Last Infusion: 07/21/22 18:06 Dose: 0 mls/hr Documented By: Admin: 07/21/22 17:06 Dose: 1,000 mls/hr Documented By: AT NOREPINEPHRINE BITARTRATE/D5W (Levophed) 4 mg in 250 mls @ 30 mls/hr IV TITRATE [facility]; Protocol Last Admin: 07/22/22 15:59 Dose: 25 mcg/min, 93.75 mls/hr Documented By: Titration: 07/22/22 15:59 Dose: 25 mcg/min, 93.75 mls/hr Documented By: Titration: 07/22/22 15:07 Dose: 25 mcg/min, 93.75 mls/hr Documented By: Titration: 07/22/22 14:31 Dose: 30 mcg/min, 112.5 mls/hr Documented By: Titration: 07/22/22 14:18 Dose: 40 mcg/min, 150 mls/hr Documented By: Titration: 07/22/22 14:17 Dose: 20 mcg/min, 75 mls/hr Documented By: Admin: 07/22/22 13:27 Dose: 10 mcg/min, 37.5 mls/hr Documented By: Titration: 07/22/22 13:27 Dose: 10 mcg/min, 37.5 mls/hr Documented By: Titration: 07/22/22 13:13 Dose: 10 mcg/min, 37.5 mls/hr Documented By: Titration: 07/22/22 12:36 Dose: 12 mcg/min, 45 mls/hr Documented By: Titration: 07/22/22 12:11 Dose: 14 mcg/min, 52.5 mls/hr Documented By: Titration: 07/22/22 11:46 Dose: 16 mcg/min, 60 mls/hr Documented By: Titration: 07/22/22 11:14 Dose: 18 mcg/min, 67.5 mls/hr Documented By: Admin: 07/22/22 09:32 Dose: 20 mcg/min, 75 mls/hr Documented By: Titration: 07/22/22 09:32 Dose: 20 mcg/min, 75 mls/hr Documented By: Titration: 07/22/22 06:35 Dose: 20 mcg/min, 75 mls/hr Documented By: Admin: 07/22/22 06:19 Dose: 18 mcg/min, 67.5 mls/hr Documented By: Titration: 07/22/22 06:19 Dose: 18 mcg/min, 67.5 mls/hr Documented By: Titration: 07/22/22 05:16 Dose: 18 mcg/min, 67.5 mls/hr Documented By: Titration: 07/22/22 05:12 Dose: 16 mcg/min, 60 mls/hr Documented By: Titration: 07/22/22 05:07 Dose: 14 mcg/min, 52.5 mls/hr Documented By: Titration: 07/22/22 05:02 Dose: 12 mcg/min, 45 mls/hr Documented By: Titration: 07/22/22 04:46 Dose: 10 mcg/min, 37.5 mls/hr Documented By: Admin: 07/22/22 00:34 Dose: 8 mcg/min, 30 mls/hr Documented By: Titration: 07/22/22 00:34 Dose: 8 mcg/min, 30 mls/hr Documented By: Titration: 07/21/22 21:21 Dose: 8 mcg/min, 30 mls/hr Documented By: Titration: 07/21/22 19:33 Dose: 6 mcg/min, 22.5 mls/hr Documented By: Admin: 07/21/22 17:19 Dose: 8 mcg/min, 30 mls/hr Documented By: AT FOMEPIZOLE 690 mg/ Sodium (Chloride) 100.69 mls @ 201.38 mls/hr IV NOW ONE Stop: 07/21/22 17:16 Last Infusion: 07/21/22 19:36 Dose: 0 mls/hr Documented By: Admin: 07/21/22 18:58 Dose: 201.38 mls/hr Documented By: AT Piperacillin Sod/Tazobactam (Sod 4.5 gm/ Sodium Chloride) 100 mls @ 200 mls/hr IV NOW ONE Stop: 07/21/22 20:19 Last Infusion: 07/21/22 22:00 Dose: 0 mls/hr Documented By: Admin: 07/21/22 20:51 Dose: 200 mls/hr Documented By: SHARITA Lactated Ringer's (Lactated Ringers) 1,000 mls @ 150 mls/hr IV CONT LACY Last Infusion: 07/22/22 10:18 Dose: 0 mls/hr Documented By: Infusion: 07/22/22 10:18 Dose: 0 mls/hr Documented By: Infusion: 07/22/22 05:58 Dose: 100 mls/hr Documented By: Infusion: 07/22/22 05:26 Dose: 999 mls/hr Documented By: Admin: 07/21/22 21:23 Dose: 100 mls/hr Documented By: HSARITA Sodium Bicarbonate 150 meq/ (Dextrose) 1,150 mls @ 150 mls/hr IV CONT LACY Last Admin: 07/21/22 20:29 Dose: Not Given Documented By: SHARITA Propofol (Propofol) 1,000 mg in 100 mls @ 1.374 mls/hr IV TITRATE [facility]; Protocol Last Titration: 07/22/22 16:00 Dose: 0 mcg/kg/min, 0 mls/hr Documented By: Titration: 07/22/22 05:25 Dose: 0 mcg/kg/min, 0 mls/hr Documented By: Titration: 07/22/22 05:09 Dose: 8 mcg/kg/min, 2.199 mls/hr Documented By: Titration: 07/21/22 22:14 Dose: 10 mcg/kg/min, 2.749 mls/hr Documented By: Admin: 07/21/22 20:58 Dose: 20 mcg/kg/min, 5.498 mls/hr Documented By: SHARITA Piperacillin Sod/Tazobactam (Sod 3.375 gm/ Sodium Chloride) 100 mls @ 25 mls/hr IV Q8H LACY Last Admin: 07/21/22 22:21 Dose: Not Given Documented By: AT Piperacillin Sod/Tazobactam (Sod 3.375 gm/ Sodium Chloride) 100 mls @ 25 mls/hr IV Q12H LACY Last Infusion: 07/22/22 16:02 Dose: 25 mls/hr Documented By: Infusion: 07/22/22 16:02 Dose: 0 mls/hr Documented By: Admin: 07/22/22 13:49 Dose: 25 mls/hr Documented By: Infusion: 07/22/22 05:57 Dose: 0 mls/hr Documented By: Admin: 07/22/22 02:14 Dose: 25 mls/hr Documented By: AALIYAH Vasopressin 40 unit/ Sodium (Chloride) 100 mls @ 3 mls/hr IV TITRATE [facility]; Protocol Last Titration: 07/22/22 16:18 Dose: 0.04 unit/min, 6 mls/hr Documented By: Titration: 07/22/22 06:35 Dose: 0.04 unit/min, 6 mls/hr Documented By: Titration: 07/22/22 06:27 Dose: 0.03 unit/min, 4.5 mls/hr Documented By: Admin: 07/22/22 05:52 Dose: 0.02 unit/min, 3 mls/hr Documented By: AALIYAH FOMEPIZOLE 465 mg/ Sodium (Chloride) 100.465 mls @ 200.93 mls/hr IV NOW ONE Stop: 07/22/22 08:00 Last Infusion: 07/22/22 09:00 Dose: 0 mls/hr Documented By: Admin: 07/22/22 08:26 Dose: 200.93 mls/hr Documented By: BIBIANA Lactated Ringer's (Lactated Ringers) 1,000 mls @ 500 mls/hr IV BOLUS ONE Stop: 07/22/22 11:02 Last Infusion: 07/22/22 09:38 Dose: 0 mls/hr Documented By: Admin: 07/22/22 09:05 Dose: 500 mls/hr Documented By: BIBIANA Sodium Bicarbonate 150 meq/ (Dextrose) 1,150 mls @ 150 mls/hr IV CONT LACY Last Infusion: 07/22/22 16:03 Dose: 150 mls/hr Documented By: Admin: 07/22/22 10:44 Dose: 150 mls/hr Documented By: BIBIANA POTASSIUM CHLORIDE IN WATER (Potassium Cl 10 Meq/100 Ml Shavon) 10 meq in 100 mls @ 100 mls/hr IV Q1H [facility] Stop: 07/22/22 15:14 Last Infusion: 07/22/22 15:41 Dose: 0 mls/hr Documented By: Admin: 07/22/22 14:34 Dose: 100 mls/hr Documented By: Infusion: 07/22/22 14:33 Dose: 0 mls/hr Documented By: Admin: 07/22/22 13:31 Dose: 100 mls/hr Documented By: Infusion: 07/22/22 13:31 Dose: 0 mls/hr Documented By: Admin: 07/22/22 12:29 Dose: 100 mls/hr Documented By: Infusion: 07/22/22 12:29 Dose: 0 mls/hr Documented By: Admin: 07/22/22 11:22 Dose: 100 mls/hr Documented By: BIBIANA Acetylcysteine 11 g/ Dextrose 805 mls @ 67 mls/hr IV NOW ONE Stop: 07/23/22 04:00 Last Admin: 07/22/22 16:21 Dose: 67 mls/hr Documented By: BIBIANA Lactulose (Lactulose 20 Gm/30 Ml Solution) [address] NOW ONE Stop: 07/21/22 13:40 Last Admin: 07/21/22 14:43 Dose: 20 gm Documented By: AT Naloxone HCl (Naloxone 0.4 Mg/Ml Vial) 0.2 mg IV Q2MIN PRN PRN Reason: Opiate Reversal Last Admin: 07/21/22 12:52 Dose: 0.2 mg Documented By: AT Sodium Bicarbonate (Sodium Bicarb 8.4% Syringe) 50 meq IV NOW ONE Stop: 07/21/22 15:56 Last Admin: 07/21/22 16:07 Dose: 50 meq Documented By: DILLAN Sodium Bicarbonate (Sodium Bicarb 8.4% Syringe) 100 meq IV NOW ONE Stop: 07/21/22 16:48 Last Admin: 07/21/22 16:51 Dose: 100 meq Documented By: NIA Sodium Bicarbonate (Sodium Bicarb 8.4% Syringe) 50 meq IV NOW ONE Stop: 07/22/22 06:49 Last Admin: 07/22/22 06:35 Dose: 50 meq Documented By: AALIYAH Succinylcholine Chloride (Succinylcholine 200 Mg/10 Ml Vial) 150 mg IV NOW ONE Stop: 07/21/22 14:58 Last Admin: 07/21/22 15:06 Dose: 150 mg Documented By: AT Consultations Consultation #1: Poison control Spoke with poison control suspected Tylenol overdose at this time there is concern as her labs are somewhat atypical about possible other coingestion and was recommended to also add omeprazole on top of high-dose NAC. Patient Consultation #2: Baseball Winder at Poison Control, discussed recommended continue omeprazole if unable to get transferred some place with dialysis but dialysis is recommended for Tylenol. Reviewed patient's labs and findings today agree with current plan no additional changes from their perspective. Consultation #3: 07/22/22 Dr. Pedro [facility] order manager. Recommends continuing with bicarb drip, continuing antibiotics appropriate coverage also recommends adding a Solu-Cortef 300 mg and 100 mg t.i.d. and either transfer for dialysis if we can find a bed or comfort measures at this point. Agrees with plan to CT scan the patient is stable enough but has not been so today. Additional Consultation(s): Dr. Pizarro, order manager at [facility] accepts for transferred reviewed patient's findings thus far, recommendations from Toxicology as well as the tell order manager from last night and into today. They very kindly accept for transfer of this complicated medical patient who has been boarding in the emergency department for the past 24 hours. Vital Signs Vital signs: Vital Signs - 8 hr 07/22/22 10:15 07/22/22 10:15 07/22/22 10:20 Temperature 99.3 F 99.3 F Pulse Rate 124 H 126 H Respiratory Rate 36 H 33 H Blood Pressure 145/83 H Pulse Oximetry 100 100 Oxygen Delivery Method 07/22/22 10:20 07/22/22 10:25 07/22/22 10:25 Temperature 99.3 F Pulse Rate 126 H Respiratory Rate 40 H Blood Pressure 155/90 H 126/99 H Pulse Oximetry 100 Oxygen Delivery Method 07/22/22 10:30 07/22/22 10:35 07/22/22 10:35 Temperature 99.5 F 99.5 F Pulse Rate 145 H 127 H Respiratory Rate 33 H 33 H Blood Pressure 155/93 H Pulse Oximetry 100 100 Oxygen Delivery Method 07/22/22 10:40 07/22/22 10:40 07/22/22 10:45 Temperature 99.5 F 99.5 F Pulse Rate 128 H 127 H Respiratory Rate 28 H 28 H Blood Pressure 118/70 Pulse Oximetry 100 100 Oxygen Delivery Method 07/22/22 10:48 07/22/22 10:48 07/22/22 10:50 Temperature 99.5 F Pulse Rate 128 H Respiratory Rate 32 H Blood Pressure 135/84 112/74 Pulse Oximetry 100 Oxygen Delivery Method 07/22/22 10:50 07/22/22 10:58 07/22/22 10:58 Temperature 99.5 F 99.7 F H Pulse Rate 128 H 129 H Respiratory Rate 33 H 30 H Blood Pressure 146/105 H Pulse Oximetry 100 100 Oxygen Delivery Method 07/22/22 11:00 07/22/22 11:01 07/22/22 11:01 Temperature 99.7 F H 99.7 F H Pulse Rate 129 H 129 H Respiratory Rate 31 H 30 H Blood Pressure 156/71 H Pulse Oximetry 100 100 Oxygen Delivery Method 07/22/22 11:04 07/22/22 11:05 07/22/22 11:05 Temperature 99.7 F H 99.7 F H Pulse Rate 129 H 129 H Respiratory Rate 29 H 28 H Blood Pressure 129/62 Pulse Oximetry 100 100 Oxygen Delivery Method 07/22/22 11:11 07/22/22 11:11 07/22/22 11:12 Temperature 99.7 F H Pulse Rate 128 H Respiratory Rate 24 Blood Pressure 185/119 H 125/66 Pulse Oximetry 100 Oxygen Delivery Method 07/22/22 11:12 07/22/22 11:15 07/22/22 11:15 Temperature 99.7 F H 99.7 F H Pulse Rate 127 H 127 H Respiratory Rate 36 H 30 H Blood Pressure 116/64 Pulse Oximetry 100 100 Oxygen Delivery Method 07/22/22 11:20 07/22/22 11:20 07/22/22 11:25 Temperature 99.7 F H Pulse Rate 127 H Respiratory Rate 30 H Blood Pressure 118/83 122/79 Pulse Oximetry 100 Oxygen Delivery Method 07/22/22 11:25 07/22/22 11:30 07/22/22 11:31 Temperature 99.7 F H 99.7 F H Pulse Rate 144 H 143 H Respiratory Rate 28 H 27 H Blood Pressure 131/74 Pulse Oximetry 100 100 Oxygen Delivery Method 07/22/22 11:31 07/22/22 11:35 07/22/22 11:35 Temperature 99.7 F H 99.7 F H Pulse Rate 143 H 143 H Respiratory Rate 24 30 H Blood Pressure 113/68 Pulse Oximetry 100 100 Oxygen Delivery Method 07/22/22 11:41 07/22/22 11:41 07/22/22 11:45 Temperature 99.7 F H Pulse Rate 144 H Respiratory Rate 30 H Blood Pressure 166/65 H 159/67 H Pulse Oximetry 100 Oxygen Delivery Method 07/22/22 11:45 07/22/22 11:51 07/22/22 11:51 Temperature 99.7 F H 99.7 F H Pulse Rate 125 H 125 H Respiratory Rate 31 H 31 H Blood Pressure 140/81 Pulse Oximetry 100 100 Oxygen Delivery Method 07/22/22 11:55 07/22/22 11:55 07/22/22 12:00 Temperature 99.7 F H Pulse Rate 126 H Respiratory Rate 34 H Blood Pressure 140/87 128/95 H Pulse Oximetry 100 Oxygen Delivery Method 07/22/22 12:00 07/22/22 12:05 07/22/22 12:05 Temperature 99.7 F H 99.7 F H Pulse Rate 126 H 125 H Respiratory Rate 30 H 34 H Blood Pressure 128/73 Pulse Oximetry 100 100 Oxygen Delivery Method 07/22/22 12:11 07/22/22 12:11 07/22/22 12:15 Temperature 99.7 F H Pulse Rate 126 H Respiratory Rate 35 H Blood Pressure 140/86 126/80 Pulse Oximetry 100 Oxygen Delivery Method 07/22/22 12:15 07/22/22 12:20 07/22/22 12:20 Temperature 99.7 F H 99.7 F H Pulse Rate 125 H 126 H Respiratory Rate 31 H 30 H Blood Pressure 131/61 Pulse Oximetry 100 100 Oxygen Delivery Method 07/22/22 12:25 07/22/22 12:25 07/22/22 12:30 Temperature 99.7 F H Pulse Rate 125 H Respiratory Rate 21 Blood Pressure 123/60 123/67 Pulse Oximetry 100 Oxygen Delivery Method 07/22/22 12:30 07/22/22 12:35 07/22/22 12:35 Temperature 99.7 F H 99.7 F H Pulse Rate 124 H 124 H Respiratory Rate 18 25 H Blood Pressure 134/57 L Pulse Oximetry 100 100 Oxygen Delivery Method 07/22/22 12:40 07/22/22 12:40 07/22/22 12:45 Temperature 99.7 F H Pulse Rate 123 H Respiratory Rate 20 Blood Pressure 129/77 124/82 Pulse Oximetry 100 Oxygen Delivery Method 07/22/22 12:45 07/22/22 12:50 07/22/22 12:50 Temperature 99.7 F H 99.7 F H Pulse Rate 123 H 123 H Respiratory Rate 19 26 H Blood Pressure 126/81 Pulse Oximetry 100 100 Oxygen Delivery Method 07/22/22 12:55 07/22/22 12:55 07/22/22 13:00 Temperature 99.7 F H Pulse Rate 123 H Respiratory Rate 20 Blood Pressure 126/80 122/81 Pulse Oximetry 100 Oxygen Delivery Method 07/22/22 13:00 07/22/22 13:05 07/22/22 13:05 Temperature 99.7 F H 99.7 F H Pulse Rate 124 H 125 H Respiratory Rate 33 H 29 H Blood Pressure 127/81 Pulse Oximetry 100 100 Oxygen Delivery Method 07/22/22 13:10 07/22/22 13:10 07/22/22 13:15 Temperature 99.7 F H Pulse Rate 124 H Respiratory Rate 34 H Blood Pressure 145/78 H 142/75 H Pulse Oximetry 100 Oxygen Delivery Method 07/22/22 13:15 07/22/22 13:20 07/22/22 13:20 Temperature 99.7 F H 99.7 F H Pulse Rate 124 H 123 H Respiratory Rate 30 H 35 H Blood Pressure 121/63 Pulse Oximetry 100 100 Oxygen Delivery Method 07/22/22 13:25 07/22/22 13:25 07/22/22 13:30 Temperature 99.7 F H Pulse Rate 125 H Respiratory Rate 33 H Blood Pressure 122/57 L 127/67 Pulse Oximetry 100 Oxygen Delivery Method 07/22/22 13:30 07/22/22 13:35 07/22/22 13:35 Temperature 99.7 F H 99.7 F H Pulse Rate 125 H 123 H Respiratory Rate 28 H 34 H Blood Pressure 127/85 Pulse Oximetry 100 100 Oxygen Delivery Method 07/22/22 13:40 07/22/22 13:40 07/22/22 13:45 Temperature 99.7 F H Pulse Rate 126 H Respiratory Rate 26 H Blood Pressure 162/95 H 128/75 Pulse Oximetry 100 Oxygen Delivery Method 07/22/22 13:45 07/22/22 13:50 07/22/22 13:50 Temperature 99.9 F H 99.9 F H Pulse Rate 124 H 123 H Respiratory Rate 36 H 37 H Blood Pressure 130/60 Pulse Oximetry 100 100 Oxygen Delivery Method 07/22/22 13:55 07/22/22 13:55 07/22/22 14:00 Temperature 99.9 F H Pulse Rate 125 H Respiratory Rate 34 H Blood Pressure 138/96 H 139/90 Pulse Oximetry 100 Oxygen Delivery Method 07/22/22 14:00 07/22/22 14:06 07/22/22 14:06 Temperature 99.9 F H 99.9 F H Pulse Rate 124 H 124 H Respiratory Rate 36 H 32 H Blood Pressure 47/31 L Pulse Oximetry 100 100 Oxygen Delivery Method 07/22/22 14:08 07/22/22 14:08 07/22/22 14:09 Temperature 99.9 F H 99.9 F H Pulse Rate 124 H 124 H Respiratory Rate 28 H 36 H Blood Pressure 45/25 L Pulse Oximetry 100 100 Oxygen Delivery Method 07/22/22 14:09 07/22/22 14:10 07/22/22 14:10 Temperature 99.9 F H Pulse Rate 123 H Respiratory Rate 29 H Blood Pressure 43/21 L 46/30 L Pulse Oximetry 100 Oxygen Delivery Method 07/22/22 14:13 07/22/22 14:13 07/22/22 14:15 Temperature 99.9 F H 99.9 F H Pulse Rate 124 H 122 H Respiratory Rate 40 H 26 H Blood Pressure 42/26 L Pulse Oximetry 100 100 Oxygen Delivery Method 07/22/22 14:16 07/22/22 14:16 07/22/22 14:20 Temperature 99.9 F H Pulse Rate 123 H Respiratory Rate 27 H Blood Pressure 90/54 L 90/52 L Pulse Oximetry 100 Oxygen Delivery Method 07/22/22 14:20 07/22/22 14:22 07/22/22 14:22 Temperature 99.9 F H 99.9 F H Pulse Rate 121 H 121 H Respiratory Rate 24 29 H Blood Pressure 82/56 L Pulse Oximetry 100 100 Oxygen Delivery Method 07/22/22 14:30 07/22/22 14:30 07/22/22 14:36 Temperature 99.9 F H Pulse Rate 129 H Respiratory Rate 37 H Blood Pressure 140/85 137/65 Pulse Oximetry 100 Oxygen Delivery Method 07/22/22 14:36 07/22/22 14:40 07/22/22 14:40 Temperature 99.9 F H 99.7 F H Pulse Rate 129 H 129 H Respiratory Rate 18 17 Blood Pressure 109/64 Pulse Oximetry 100 100 Oxygen Delivery Method 07/22/22 14:45 07/22/22 14:45 07/22/22 14:50 Temperature 99.9 F H Pulse Rate 128 H Respiratory Rate 17 Blood Pressure 114/46 L 117/44 L Pulse Oximetry 100 Oxygen Delivery Method Mechanical Ventilation 07/22/22 14:50 07/22/22 14:57 07/22/22 14:57 Temperature 99.9 F H 100.0 F H Pulse Rate 131 H 129 H Respiratory Rate 25 H 26 H Blood Pressure 136/87 Pulse Oximetry 100 100 Oxygen Delivery Method 07/22/22 15:00 07/22/22 15:00 07/22/22 15:05 Temperature 100.0 F H Pulse Rate 129 H Respiratory Rate 26 H Blood Pressure 151/86 H 160/100 H Pulse Oximetry 100 Oxygen Delivery Method 07/22/22 15:05 07/22/22 15:10 07/22/22 15:10 Temperature 100.0 F H 100.0 F H Pulse Rate 129 H 132 H Respiratory Rate 25 H 34 H Blood Pressure 162/131 H Pulse Oximetry 100 100 Oxygen Delivery Method 07/22/22 15:15 07/22/22 15:16 07/22/22 15:16 Temperature 100.0 F H 100.0 F H Pulse Rate 134 H 134 H Respiratory Rate 20 13 Blood Pressure 156/72 H Pulse Oximetry 100 100 Oxygen Delivery Method 07/22/22 15:20 07/22/22 15:20 07/22/22 15:25 Temperature 100.2 F H Pulse Rate 132 H Respiratory Rate 14 Blood Pressure 132/91 H 118/79 Pulse Oximetry 100 Oxygen Delivery Method 07/22/22 15:25 07/22/22 15:30 07/22/22 15:30 Temperature 100.2 F H 100.2 F H Pulse Rate 130 H 130 H Respiratory Rate 13 13 Blood Pressure 121/92 H Pulse Oximetry 100 100 Oxygen Delivery Method 07/22/22 15:35 07/22/22 15:35 07/22/22 15:40 Temperature 100.2 F H Pulse Rate 130 H Respiratory Rate 16 Blood Pressure 125/95 H 134/88 Pulse Oximetry 100 Oxygen Delivery Method 07/22/22 15:40 07/22/22 15:45 07/22/22 15:46 Temperature 100.2 F H 100.2 F H Pulse Rate 130 H 135 H Respiratory Rate 26 H 35 H Blood Pressure 150/91 H Pulse Oximetry 100 100 Oxygen Delivery Method 07/22/22 15:46 07/22/22 15:50 07/22/22 15:50 Temperature 100.2 F H 100.2 F H Pulse Rate 135 H 134 H Respiratory Rate 32 H 31 H Blood Pressure 134/72 Pulse Oximetry 100 100 Oxygen Delivery Method 07/22/22 15:55 07/22/22 15:55 07/22/22 16:00 Temperature 100.4 F H 100.4 F H Pulse Rate 133 H 134 H Respiratory Rate 28 H 31 H Blood Pressure 133/70 Pulse Oximetry 100 100 Oxygen Delivery Method 07/22/22 16:01 07/22/22 16:01 07/22/22 16:06 Temperature 100.4 F H Pulse Rate 134 H Respiratory Rate 36 H Blood Pressure 159/85 H 213/115 H Pulse Oximetry 100 Oxygen Delivery Method 07/22/22 16:06 07/22/22 16:08 07/22/22 16:08 Temperature 100.4 F H 100.4 F H Pulse Rate 141 H 141 H Respiratory Rate 29 H 40 H Blood Pressure 207/74 H Pulse Oximetry 100 100 Oxygen Delivery Method 07/22/22 16:09 07/22/22 16:09 07/22/22 16:11 Temperature 100.4 F H Pulse Rate 143 H Respiratory Rate 37 H Blood Pressure 161/85 H 165/74 H Pulse Oximetry 100 Oxygen Delivery Method 07/22/22 16:11 07/22/22 16:15 07/22/22 16:16 Temperature 100.4 F H 100.4 F H Pulse Rate 143 H 141 H Respiratory Rate 28 H 27 H Blood Pressure 151/65 H Pulse Oximetry 100 100 Oxygen Delivery Method 07/22/22 16:16 07/22/22 16:20 07/22/22 16:20 Temperature 100.4 F H Pulse Rate 141 H 139 H Respiratory Rate 37 H 34 H Blood Pressure 146/66 H Pulse Oximetry 100 100 Oxygen Delivery Method 07/22/22 16:25 07/22/22 16:25 07/22/22 16:30 Temperature Pulse Rate 135 H 138 H Respiratory Rate 34 H 28 H Blood Pressure 135/60 Pulse Oximetry 100 100 Oxygen Delivery Method <Melisa Koo, DO - Last Filed: 07/22/22 18:16> Orders Ordered: Discontinued Medications Sodium Chloride 9 ml/ (Epinephrine HCl 0.1 mg) 0 ml IV NOW ONE Stop: 07/21/22 15:03 Last Admin: 07/22/22 02:18 Dose: Not Given Documented By: AALIYAH Dextrose (Dextrose 50 % In Water 25 Gm/50 Ml Syringe) 25 gm IV PRN PRN PRN Reason: Hypoglycemia Last Admin: 07/21/22 12:23 Dose: 25 gm Documented By: NIA Dextrose (Dextrose 50 % In Water 25 Gm/50 Ml Syringe) 25 gm IV NOW ONE Stop: 07/22/22 06:49 Last Admin: 07/22/22 06:35 Dose: 12.5 gm Documented By: AALIYAH Enoxaparin Sodium (Enoxaparin 40 Mg/0.4 Ml Syringe) 45 mg 1 mg/kg (45 mg) SUBCUT NOW ONE Stop: 07/21/22 23:53 Last Admin: 07/22/22 00:24 Dose: 40 mg Documented By: MICHELLE Etomidate (Etomidate 2 Mg/Ml 10 Ml Vial) 10 mg IV NOW ONE Stop: 07/21/22 14:58 Last Admin: 07/21/22 15:05 Dose: 10 mg Documented By: AT Fentanyl (Fentanyl 100 Mcg/2 Ml Inj) 50 mcg IV Q15MIN PRN PRN Reason: Agitation Last Admin: 07/22/22 16:07 Dose: 50 mcg Documented By: Admin: 07/22/22 15:10 Dose: 50 mcg Documented By: Admin: 07/22/22 14:28 Dose: 50 mcg Documented By: Admin: 07/21/22 18:18 Dose: 50 mcg Documented By: Admin: 07/21/22 16:23 Dose: 50 mcg Documented By: Admin: 07/21/22 15:39 Dose: 50 mcg Documented By: Admin: 07/21/22 15:23 Dose: 50 mcg Documented By: AT Hydrocortisone (Hydrocortisone 100 Mg/2 Ml Vial) 300 mg IV NOW ONE Stop: 07/22/22 09:53 Last Admin: 07/22/22 10:32 Dose: 300 mg Documented By: BIBIANA Hydrocortisone (Hydrocortisone 100 Mg/2 Ml Vial) 100 mg IV Q8H [facility] Sodium Chloride (Normal Saline 0.9%) 1,000 mls @ 1,000 mls/hr IV BOLUS ONE Stop: 07/21/22 13:28 Last Infusion: 07/21/22 14:14 Dose: 0 mls/hr Documented By: Admin: 07/21/22 13:18 Dose: 1,000 mls/hr Documented By: AT Acetylcysteine 21.56889 g/ (Dextrose) 1,609.9512 mls @ 67.081 mls/hr IV NOW ONE Stop: 07/21/22 13:24 Last Infusion: 07/22/22 15:28 Dose: 0 mls/hr Documented By: Admin: 07/21/22 14:17 Dose: 67.081 mls/hr Documented By: AT Lactated Ringer's (Lactated Ringers) 1,000 mls @ 1,000 mls/hr IV BOLUS ONE Stop: 07/21/22 15:05 Last Infusion: 07/21/22 15:13 Dose: 0 mls/hr Documented By: Admin: 07/21/22 14:13 Dose: 1,000 mls/hr Documented By: AT Fentanyl 1,000 mcg/ Dextrose 250 mls @ 11.453 mls/hr IV TITRATE [facility]; Protocol Last Titration: 07/22/22 15:58 Dose: 0 mcg/kg/hr, 0 mls/hr Documented By: Titration: 07/22/22 06:35 Dose: 0 mcg/kg/hr, 0 mls/hr Documented By: Titration: 07/22/22 05:29 Dose: 1 mcg/kg/hr, 11.453 mls/hr Documented By: Admin: 07/22/22 01:20 Dose: 2.5 mcg/kg/hr, 28.633 mls/hr Documented By: Titration: 07/22/22 01:20 Dose: 2.5 mcg/kg/hr, 28.633 mls/hr Documented By: Titration: 07/21/22 18:20 Dose: 2.5 mcg/kg/hr, 28.633 mls/hr Documented By: Titration: 07/21/22 18:00 Dose: 2 mcg/kg/hr, 22.907 mls/hr Documented By: Titration: 07/21/22 16:21 Dose: 1.5 mcg/kg/hr, 17.18 mls/hr Documented By: Admin: 07/21/22 15:38 Dose: 1 mcg/kg/hr, 11.453 mls/hr Documented By: AT Midazolam HCl 50 mg/ Dextrose 250 mls @ 25 mls/hr IV TITRATE [facility]; Protocol Last Infusion: 07/21/22 20:57 Dose: 0 mg/hr, 0 mls/hr Documented By: Admin: 07/21/22 20:25 Dose: 13.74 mg/hr, 68.7 mls/hr Documented By: Infusion: 07/21/22 20:25 Dose: 13.74 mg/hr, 68.7 mls/hr Documented By: Infusion: 07/21/22 18:40 Dose: 13.74 mg/hr, 68.7 mls/hr Documented By: Infusion: 07/21/22 16:20 Dose: 9 mg/hr, 45 mls/hr Documented By: Admin: 07/21/22 15:34 Dose: 5 mg/hr, 25 mls/hr Documented By: AT Sodium Chloride (Normal Saline 0.9%) 1,000 mls @ 1,000 mls/hr IV BOLUS ONE Stop: 07/21/22 18:01 Last Infusion: 07/21/22 18:06 Dose: 0 mls/hr Documented By: Admin: 07/21/22 17:06 Dose: 1,000 mls/hr Documented By: AT NOREPINEPHRINE BITARTRATE/D5W (Levophed) 4 mg in 250 mls @ 30 mls/hr IV TITRATE [facility]; Protocol Last Admin: 07/22/22 15:59 Dose: 25 mcg/min, 93.75 mls/hr Documented By: Titration: 07/22/22 15:59 Dose: 25 mcg/min, 93.75 mls/hr Documented By: Titration: 07/22/22 15:07 Dose: 25 mcg/min, 93.75 mls/hr Documented By: Titration: 07/22/22 14:31 Dose: 30 mcg/min, 112.5 mls/hr Documented By: Titration: 07/22/22 14:18 Dose: 40 mcg/min, 150 mls/hr Documented By: Titration: 07/22/22 14:17 Dose: 20 mcg/min, 75 mls/hr Documented By: Admin: 07/22/22 13:27 Dose: 10 mcg/min, 37.5 mls/hr Documented By: Titration: 07/22/22 13:27 Dose: 10 mcg/min, 37.5 mls/hr Documented By: Titration: 07/22/22 13:13 Dose: 10 mcg/min, 37.5 mls/hr Documented By: Titration: 07/22/22 12:36 Dose: 12 mcg/min, 45 mls/hr Documented By: Titration: 07/22/22 12:11 Dose: 14 mcg/min, 52.5 mls/hr Documented By: Titration: 07/22/22 11:46 Dose: 16 mcg/min, 60 mls/hr Documented By: Titration: 07/22/22 11:14 Dose: 18 mcg/min, 67.5 mls/hr Documented By: Admin: 07/22/22 09:32 Dose: 20 mcg/min, 75 mls/hr Documented By: Titration: 07/22/22 09:32 Dose: 20 mcg/min, 75 mls/hr Documented By: Titration: 07/22/22 06:35 Dose: 20 mcg/min, 75 mls/hr Documented By: Admin: 07/22/22 06:19 Dose: 18 mcg/min, 67.5 mls/hr Documented By: Titration: 07/22/22 06:19 Dose: 18 mcg/min, 67.5 mls/hr Documented By: Titration: 07/22/22 05:16 Dose: 18 mcg/min, 67.5 mls/hr Documented By: Titration: 07/22/22 05:12 Dose: 16 mcg/min, 60 mls/hr Documented By: Titration: 07/22/22 05:07 Dose: 14 mcg/min, 52.5 mls/hr Documented By: Titration: 07/22/22 05:02 Dose: 12 mcg/min, 45 mls/hr Documented By: Titration: 07/22/22 04:46 Dose: 10 mcg/min, 37.5 mls/hr Documented By: Admin: 07/22/22 00:34 Dose: 8 mcg/min, 30 mls/hr Documented By: Titration: 07/22/22 00:34 Dose: 8 mcg/min, 30 mls/hr Documented By: Titration: 07/21/22 21:21 Dose: 8 mcg/min, 30 mls/hr Documented By: Titration: 07/21/22 19:33 Dose: 6 mcg/min, 22.5 mls/hr Documented By: Admin: 07/21/22 17:19 Dose: 8 mcg/min, 30 mls/hr Documented By: DILLAN FOMEPIZOLE 690 mg/ Sodium (Chloride) 100.69 mls @ 201.38 mls/hr IV NOW ONE Stop: 07/21/22 17:16 Last Infusion: 07/21/22 19:36 Dose: 0 mls/hr Documented By: Admin: 07/21/22 18:58 Dose: 201.38 mls/hr Documented By: DILLAN Piperacillin Sod/Tazobactam (Sod 4.5 gm/ Sodium Chloride) 100 mls @ 200 mls/hr IV NOW ONE Stop: 07/21/22 20:19 Last Infusion: 07/21/22 22:00 Dose: 0 mls/hr Documented By: Admin: 07/21/22 20:51 Dose: 200 mls/hr Documented By: SHARITA Lactated Ringer's (Lactated Ringers) 1,000 mls @ 150 mls/hr IV CONT LACY Last Infusion: 07/22/22 10:18 Dose: 0 mls/hr Documented By: Infusion: 07/22/22 10:18 Dose: 0 mls/hr Documented By: Infusion: 07/22/22 05:58 Dose: 100 mls/hr Documented By: Infusion: 07/22/22 05:26 Dose: 999 mls/hr Documented By: Admin: 07/21/22 21:23 Dose: 100 mls/hr Documented By: SHARITA Sodium Bicarbonate 150 meq/ (Dextrose) 1,150 mls @ 150 mls/hr IV CONT LACY Last Admin: 07/21/22 20:29 Dose: Not Given Documented By: SHARITA Propofol (Propofol) 1,000 mg in 100 mls @ 1.374 mls/hr IV TITRATE [facility]; Protocol Last Titration: 07/22/22 16:00 Dose: 0 mcg/kg/min, 0 mls/hr Documented By: Titration: 07/22/22 05:25 Dose: 0 mcg/kg/min, 0 mls/hr Documented By: Titration: 07/22/22 05:09 Dose: 8 mcg/kg/min, 2.199 mls/hr Documented By: Titration: 07/21/22 22:14 Dose: 10 mcg/kg/min, 2.749 mls/hr Documented By: Admin: 07/21/22 20:58 Dose: 20 mcg/kg/min, 5.498 mls/hr Documented By: SHARITA Piperacillin Sod/Tazobactam (Sod 3.375 gm/ Sodium Chloride) 100 mls @ 25 mls/hr IV Q8H [facility] Last Admin: 07/21/22 22:21 Dose: Not Given Documented By: AT Piperacillin Sod/Tazobactam (Sod 3.375 gm/ Sodium Chloride) 100 mls @ 25 mls/hr IV Q12H [facility] Last Infusion: 07/22/22 16:02 Dose: 25 mls/hr Documented By: Infusion: 07/22/22 16:02 Dose: 0 mls/hr Documented By: Admin: 07/22/22 13:49 Dose: 25 mls/hr Documented By: Infusion: 07/22/22 05:57 Dose: 0 mls/hr Documented By: Admin: 07/22/22 02:14 Dose: 25 mls/hr Documented By: AALIYAH Vasopressin 40 unit/ Sodium (Chloride) 100 mls @ 3 mls/hr IV TITRATE [facility]; Protocol Last Titration: 07/22/22 16:18 Dose: 0.04 unit/min, 6 mls/hr Documented By: Titration: 07/22/22 06:35 Dose: 0.04 unit/min, 6 mls/hr Documented By: Titration: 07/22/22 06:27 Dose: 0.03 unit/min, 4.5 mls/hr Documented By: Admin: 07/22/22 05:52 Dose: 0.02 unit/min, 3 mls/hr Documented By: AALIYAH FOMEPIZOLE 465 mg/ Sodium (Chloride) 100.465 mls @ 200.93 mls/hr IV NOW ONE Stop: 07/22/22 08:00 Last Infusion: 07/22/22 09:00 Dose: 0 mls/hr Documented By: Admin: 07/22/22 08:26 Dose: 200.93 mls/hr Documented By: BIBIANA Lactated Ringer's (Lactated Ringers) 1,000 mls @ 500 mls/hr IV BOLUS ONE Stop: 07/22/22 11:02 Last Infusion: 07/22/22 09:38 Dose: 0 mls/hr Documented By: Admin: 07/22/22 09:05 Dose: 500 mls/hr Documented By: BIBIANA Sodium Bicarbonate 150 meq/ (Dextrose) 1,150 mls @ 150 mls/hr IV CONT LACY Last Infusion: 07/22/22 16:03 Dose: 150 mls/hr Documented By: Admin: 07/22/22 10:44 Dose: 150 mls/hr Documented By: BIBIANA POTASSIUM CHLORIDE IN WATER (Potassium Cl 10 Meq/100 Ml Shavon) 10 meq in 100 mls @ 100 mls/hr IV Q1H [facility] Stop: 07/22/22 15:14 Last Infusion: 07/22/22 15:41 Dose: 0 mls/hr Documented By: Admin: 07/22/22 14:34 Dose: 100 mls/hr Documented By: Infusion: 07/22/22 14:33 Dose: 0 mls/hr Documented By: Admin: 07/22/22 13:31 Dose: 100 mls/hr Documented By: Infusion: 07/22/22 13:31 Dose: 0 mls/hr Documented By: Admin: 07/22/22 12:29 Dose: 100 mls/hr Documented By: Infusion: 07/22/22 12:29 Dose: 0 mls/hr Documented By: Admin: 07/22/22 11:22 Dose: 100 mls/hr Documented By: BIBIANA Acetylcysteine 11 g/ Dextrose 805 mls @ 67 mls/hr IV NOW ONE Stop: 07/23/22 04:00 Last Admin: 07/22/22 16:21 Dose: 67 mls/hr Documented By: BIBIANA Lactulose (Lactulose 20 Gm/30 Ml Solution) [address] NOW ONE Stop: 07/21/22 13:40 Last Admin: 07/21/22 14:43 Dose: 20 gm Documented By: AT Naloxone HCl (Naloxone 0.4 Mg/Ml Vial) 0.2 mg IV Q2MIN PRN PRN Reason: Opiate Reversal Last Admin: 07/21/22 12:52 Dose: 0.2 mg Documented By: AT Sodium Bicarbonate (Sodium Bicarb 8.4% Syringe) 50 meq IV NOW ONE Stop: 07/21/22 15:56 Last Admin: 07/21/22 16:07 Dose: 50 meq Documented By: AT Sodium Bicarbonate (Sodium Bicarb 8.4% Syringe) 100 meq IV NOW ONE Stop: 07/21/22 16:48 Last Admin: 07/21/22 16:51 Dose: 100 meq Documented By: NIA Sodium Bicarbonate (Sodium Bicarb 8.4% Syringe) 50 meq IV NOW ONE Stop: 07/22/22 06:49 Last Admin: 07/22/22 06:35 Dose: 50 meq Documented By: AALIYAH Succinylcholine Chloride (Succinylcholine 200 Mg/10 Ml Vial) 150 mg IV NOW ONE Stop: 07/21/22 14:58 Last Admin: 07/21/22 15:06 Dose: 150 mg Documented By: AT Vital Signs Vital signs: Vital Signs - 8 hr 07/22/22 10:15 07/22/22 10:15 07/22/22 10:20 Temperature 99.3 F 99.3 F Pulse Rate 124 H 126 H Respiratory Rate 36 H 33 H Blood Pressure 145/83 H Pulse Oximetry 100 100 Oxygen Delivery Method 07/22/22 10:20 07/22/22 10:25 07/22/22 10:25 Temperature 99.3 F Pulse Rate 126 H Respiratory Rate 40 H Blood Pressure 155/90 H 126/99 H Pulse Oximetry 100 Oxygen Delivery Method 07/22/22 10:30 07/22/22 10:35 07/22/22 10:35 Temperature 99.5 F 99.5 F Pulse Rate 145 H 127 H Respiratory Rate 33 H 33 H Blood Pressure 155/93 H Pulse Oximetry 100 100 Oxygen Delivery Method 07/22/22 10:40 07/22/22 10:40 07/22/22 10:45 Temperature 99.5 F 99.5 F Pulse Rate 128 H 127 H Respiratory Rate 28 H 28 H Blood Pressure 118/70 Pulse Oximetry 100 100 Oxygen Delivery Method 07/22/22 10:48 07/22/22 10:48 07/22/22 10:50 Temperature 99.5 F Pulse Rate 128 H Respiratory Rate 32 H Blood Pressure 135/84 112/74 Pulse Oximetry 100 Oxygen Delivery Method 07/22/22 10:50 07/22/22 10:58 07/22/22 10:58 Temperature 99.5 F 99.7 F H Pulse Rate 128 H 129 H Respiratory Rate 33 H 30 H Blood Pressure 146/105 H Pulse Oximetry 100 100 Oxygen Delivery Method 07/22/22 11:00 07/22/22 11:01 07/22/22 11:01 Temperature 99.7 F H 99.7 F H Pulse Rate 129 H 129 H Respiratory Rate 31 H 30 H Blood Pressure 156/71 H Pulse Oximetry 100 100 Oxygen Delivery Method 07/22/22 11:04 07/22/22 11:05 07/22/22 11:05 Temperature 99.7 F H 99.7 F H Pulse Rate 129 H 129 H Respiratory Rate 29 H 28 H Blood Pressure 129/62 Pulse Oximetry 100 100 Oxygen Delivery Method 07/22/22 11:11 07/22/22 11:11 07/22/22 11:12 Temperature 99.7 F H Pulse Rate 128 H Respiratory Rate 24 Blood Pressure 185/119 H 125/66 Pulse Oximetry 100 Oxygen Delivery Method 07/22/22 11:12 07/22/22 11:15 07/22/22 11:15 Temperature 99.7 F H 99.7 F H Pulse Rate 127 H 127 H Respiratory Rate 36 H 30 H Blood Pressure 116/64 Pulse Oximetry 100 100 Oxygen Delivery Method 07/22/22 11:20 07/22/22 11:20 07/22/22 11:25 Temperature 99.7 F H Pulse Rate 127 H Respiratory Rate 30 H Blood Pressure 118/83 122/79 Pulse Oximetry 100 Oxygen Delivery Method 07/22/22 11:25 07/22/22 11:30 07/22/22 11:31 Temperature 99.7 F H 99.7 F H Pulse Rate 144 H 143 H Respiratory Rate 28 H 27 H Blood Pressure 131/74 Pulse Oximetry 100 100 Oxygen Delivery Method 07/22/22 11:31 07/22/22 11:35 07/22/22 11:35 Temperature 99.7 F H 99.7 F H Pulse Rate 143 H 143 H Respiratory Rate 24 30 H Blood Pressure 113/68 Pulse Oximetry 100 100 Oxygen Delivery Method 07/22/22 11:41 07/22/22 11:41 07/22/22 11:45 Temperature 99.7 F H Pulse Rate 144 H Respiratory Rate 30 H Blood Pressure 166/65 H 159/67 H Pulse Oximetry 100 Oxygen Delivery Method 07/22/22 11:45 07/22/22 11:51 07/22/22 11:51 Temperature 99.7 F H 99.7 F H Pulse Rate 125 H 125 H Respiratory Rate 31 H 31 H Blood Pressure 140/81 Pulse Oximetry 100 100 Oxygen Delivery Method 07/22/22 11:55 07/22/22 11:55 07/22/22 12:00 Temperature 99.7 F H Pulse Rate 126 H Respiratory Rate 34 H Blood Pressure 140/87 128/95 H Pulse Oximetry 100 Oxygen Delivery Method 07/22/22 12:00 07/22/22 12:05 07/22/22 12:05 Temperature 99.7 F H 99.7 F H Pulse Rate 126 H 125 H Respiratory Rate 30 H 34 H Blood Pressure 128/73 Pulse Oximetry 100 100 Oxygen Delivery Method 07/22/22 12:11 07/22/22 12:11 07/22/22 12:15 Temperature 99.7 F H Pulse Rate 126 H Respiratory Rate 35 H Blood Pressure 140/86 126/80 Pulse Oximetry 100 Oxygen Delivery Method 07/22/22 12:15 07/22/22 12:20 07/22/22 12:20 Temperature 99.7 F H 99.7 F H Pulse Rate 125 H 126 H Respiratory Rate 31 H 30 H Blood Pressure 131/61 Pulse Oximetry 100 100 Oxygen Delivery Method 07/22/22 12:25 07/22/22 12:25 07/22/22 12:30 Temperature 99.7 F H Pulse Rate 125 H Respiratory Rate 21 Blood Pressure 123/60 123/67 Pulse Oximetry 100 Oxygen Delivery Method 07/22/22 12:30 07/22/22 12:35 07/22/22 12:35 Temperature 99.7 F H 99.7 F H Pulse Rate 124 H 124 H Respiratory Rate 18 25 H Blood Pressure 134/57 L Pulse Oximetry 100 100 Oxygen Delivery Method 07/22/22 12:40 07/22/22 12:40 07/22/22 12:45 Temperature 99.7 F H Pulse Rate 123 H Respiratory Rate 20 Blood Pressure 129/77 124/82 Pulse Oximetry 100 Oxygen Delivery Method 07/22/22 12:45 07/22/22 12:50 07/22/22 12:50 Temperature 99.7 F H 99.7 F H Pulse Rate 123 H 123 H Respiratory Rate 19 26 H Blood Pressure 126/81 Pulse Oximetry 100 100 Oxygen Delivery Method 07/22/22 12:55 07/22/22 12:55 07/22/22 13:00 Temperature 99.7 F H Pulse Rate 123 H Respiratory Rate 20 Blood Pressure 126/80 122/81 Pulse Oximetry 100 Oxygen Delivery Method 07/22/22 13:00 07/22/22 13:05 07/22/22 13:05 Temperature 99.7 F H 99.7 F H Pulse Rate 124 H 125 H Respiratory Rate 33 H 29 H Blood Pressure 127/81 Pulse Oximetry 100 100 Oxygen Delivery Method 07/22/22 13:10 07/22/22 13:10 07/22/22 13:15 Temperature 99.7 F H Pulse Rate 124 H Respiratory Rate 34 H Blood Pressure 145/78 H 142/75 H Pulse Oximetry 100 Oxygen Delivery Method 07/22/22 13:15 07/22/22 13:20 07/22/22 13:20 Temperature 99.7 F H 99.7 F H Pulse Rate 124 H 123 H Respiratory Rate 30 H 35 H Blood Pressure 121/63 Pulse Oximetry 100 100 Oxygen Delivery Method 07/22/22 13:25 07/22/22 13:25 07/22/22 13:30 Temperature 99.7 F H Pulse Rate 125 H Respiratory Rate 33 H Blood Pressure 122/57 L 127/67 Pulse Oximetry 100 Oxygen Delivery Method 07/22/22 13:30 07/22/22 13:35 07/22/22 13:35 Temperature 99.7 F H 99.7 F H Pulse Rate 125 H 123 H Respiratory Rate 28 H 34 H Blood Pressure 127/85 Pulse Oximetry 100 100 Oxygen Delivery Method 07/22/22 13:40 07/22/22 13:40 07/22/22 13:45 Temperature 99.7 F H Pulse Rate 126 H Respiratory Rate 26 H Blood Pressure 162/95 H 128/75 Pulse Oximetry 100 Oxygen Delivery Method 07/22/22 13:45 07/22/22 13:50 07/22/22 13:50 Temperature 99.9 F H 99.9 F H Pulse Rate 124 H 123 H Respiratory Rate 36 H 37 H Blood Pressure 130/60 Pulse Oximetry 100 100 Oxygen Delivery Method 07/22/22 13:55 07/22/22 13:55 07/22/22 14:00 Temperature 99.9 F H Pulse Rate 125 H Respiratory Rate 34 H Blood Pressure 138/96 H 139/90 Pulse Oximetry 100 Oxygen Delivery Method 07/22/22 14:00 07/22/22 14:06 07/22/22 14:06 Temperature 99.9 F H 99.9 F H Pulse Rate 124 H 124 H Respiratory Rate 36 H 32 H Blood Pressure 47/31 L Pulse Oximetry 100 100 Oxygen Delivery Method 07/22/22 14:08 07/22/22 14:08 07/22/22 14:09 Temperature 99.9 F H 99.9 F H Pulse Rate 124 H 124 H Respiratory Rate 28 H 36 H Blood Pressure 45/25 L Pulse Oximetry 100 100 Oxygen Delivery Method 07/22/22 14:09 07/22/22 14:10 07/22/22 14:10 Temperature 99.9 F H Pulse Rate 123 H Respiratory Rate 29 H Blood Pressure 43/21 L 46/30 L Pulse Oximetry 100 Oxygen Delivery Method 07/22/22 14:13 07/22/22 14:13 07/22/22 14:15 Temperature 99.9 F H 99.9 F H Pulse Rate 124 H 122 H Respiratory Rate 40 H 26 H Blood Pressure 42/26 L Pulse Oximetry 100 100 Oxygen Delivery Method 07/22/22 14:16 07/22/22 14:16 07/22/22 14:20 Temperature 99.9 F H Pulse Rate 123 H Respiratory Rate 27 H Blood Pressure 90/54 L 90/52 L Pulse Oximetry 100 Oxygen Delivery Method 07/22/22 14:20 07/22/22 14:22 07/22/22 14:22 Temperature 99.9 F H 99.9 F H Pulse Rate 121 H 121 H Respiratory Rate 24 29 H Blood Pressure 82/56 L Pulse Oximetry 100 100 Oxygen Delivery Method 07/22/22 14:30 07/22/22 14:30 07/22/22 14:36 Temperature 99.9 F H Pulse Rate 129 H Respiratory Rate 37 H Blood Pressure 140/85 137/65 Pulse Oximetry 100 Oxygen Delivery Method 07/22/22 14:36 07/22/22 14:40 07/22/22 14:40 Temperature 99.9 F H 99.7 F H Pulse Rate 129 H 129 H Respiratory Rate 18 17 Blood Pressure 109/64 Pulse Oximetry 100 100 Oxygen Delivery Method 07/22/22 14:45 07/22/22 14:45 07/22/22 14:50 Temperature 99.9 F H Pulse Rate 128 H Respiratory Rate 17 Blood Pressure 114/46 L 117/44 L Pulse Oximetry 100 Oxygen Delivery Method Mechanical Ventilation 07/22/22 14:50 07/22/22 14:57 07/22/22 14:57 Temperature 99.9 F H 100.0 F H Pulse Rate 131 H 129 H Respiratory Rate 25 H 26 H Blood Pressure 136/87 Pulse Oximetry 100 100 Oxygen Delivery Method 07/22/22 15:00 07/22/22 15:00 07/22/22 15:05 Temperature 100.0 F H Pulse Rate 129 H Respiratory Rate 26 H Blood Pressure 151/86 H 160/100 H Pulse Oximetry 100 Oxygen Delivery Method 07/22/22 15:05 07/22/22 15:10 07/22/22 15:10 Temperature 100.0 F H 100.0 F H Pulse Rate 129 H 132 H Respiratory Rate 25 H 34 H Blood Pressure 162/131 H Pulse Oximetry 100 100 Oxygen Delivery Method 07/22/22 15:15 07/22/22 15:16 07/22/22 15:16 Temperature 100.0 F H 100.0 F H Pulse Rate 134 H 134 H Respiratory Rate 20 13 Blood Pressure 156/72 H Pulse Oximetry 100 100 Oxygen Delivery Method 07/22/22 15:20 07/22/22 15:20 07/22/22 15:25 Temperature 100.2 F H Pulse Rate 132 H Respiratory Rate 14 Blood Pressure 132/91 H 118/79 Pulse Oximetry 100 Oxygen Delivery Method 07/22/22 15:25 07/22/22 15:30 07/22/22 15:30 Temperature 100.2 F H 100.2 F H Pulse Rate 130 H 130 H Respiratory Rate 13 13 Blood Pressure 121/92 H Pulse Oximetry 100 100 Oxygen Delivery Method 07/22/22 15:35 07/22/22 15:35 07/22/22 15:40 Temperature 100.2 F H Pulse Rate 130 H Respiratory Rate 16 Blood Pressure 125/95 H 134/88 Pulse Oximetry 100 Oxygen Delivery Method 07/22/22 15:40 07/22/22 15:45 07/22/22 15:46 Temperature 100.2 F H 100.2 F H Pulse Rate 130 H 135 H Respiratory Rate 26 H 35 H Blood Pressure 150/91 H Pulse Oximetry 100 100 Oxygen Delivery Method 07/22/22 15:46 07/22/22 15:50 07/22/22 15:50 Temperature 100.2 F H 100.2 F H Pulse Rate 135 H 134 H Respiratory Rate 32 H 31 H Blood Pressure 134/72 Pulse Oximetry 100 100 Oxygen Delivery Method 07/22/22 15:55 07/22/22 15:55 07/22/22 16:00 Temperature 100.4 F H 100.4 F H Pulse Rate 133 H 134 H Respiratory Rate 28 H 31 H Blood Pressure 133/70 Pulse Oximetry 100 100 Oxygen Delivery Method 07/22/22 16:01 07/22/22 16:01 07/22/22 16:06 Temperature 100.4 F H Pulse Rate 134 H Respiratory Rate 36 H Blood Pressure 159/85 H 213/115 H Pulse Oximetry 100 Oxygen Delivery Method 07/22/22 16:06 07/22/22 16:08 07/22/22 16:08 Temperature 100.4 F H 100.4 F H Pulse Rate 141 H 141 H Respiratory Rate 29 H 40 H Blood Pressure 207/74 H Pulse Oximetry 100 100 Oxygen Delivery Method 07/22/22 16:09 07/22/22 16:09 07/22/22 16:11 Temperature 100.4 F H Pulse Rate 143 H Respiratory Rate 37 H Blood Pressure 161/85 H 165/74 H Pulse Oximetry 100 Oxygen Delivery Method 07/22/22 16:11 07/22/22 16:15 07/22/22 16:16 Temperature 100.4 F H 100.4 F H Pulse Rate 143 H 141 H Respiratory Rate 28 H 27 H Blood Pressure 151/65 H Pulse Oximetry 100 100 Oxygen Delivery Method 07/22/22 16:16 07/22/22 16:20 07/22/22 16:20 Temperature 100.4 F H Pulse Rate 141 H 139 H Respiratory Rate 37 H 34 H Blood Pressure 146/66 H Pulse Oximetry 100 100 Oxygen Delivery Method 07/22/22 16:25 07/22/22 16:25 07/22/22 16:30 Temperature Pulse Rate 135 H 138 H Respiratory Rate 34 H 28 H Blood Pressure 135/60 Pulse Oximetry 100 100 Oxygen Delivery Method MDM - Altered Mental Status <Cynthia Kennedy DO - Last Filed: 07/23/22 12:09> Lab Data Result diagrams: 07/22/22 10:00 07/22/22 10:00 Labs: Lab Results 07/21/22 07/21/22 07/21/22 Range/Units 12:36 12:36 12:36 WBC 23.8 H (4.5-11.0) X10^3/uL RBC 2.79 L (4.0-5.2) X10^6/uL Hgb 10.6 L (12.0-16.0) g/dL Hct 33.1 L (36-46) % MCV 118.4 H D (80-100) fL MCH 37.9 H (26-34) PG MCHC 32.0 (30-36) % RDW 19.2 H (11.6-14.8) % Plt Count 453 H (150-400) X10^3/uL Neut % (Auto) 92.4 H (50-75) % Lymph % (Auto) 4.4 L (25-40) % Gillespie % (Auto) 2.7 L (3-14) % Eos % (Auto) 0.1 L (2-4) % Baso % (Auto) 0.4 (0-2) % Neut # (Auto) 31586 H (5527-2553) /uL Lymph # (Auto) 1000 L (9716-4211) /uL Gillespie # (Auto) 600 (0-900) /uL Eos # (Auto) 0 (0-450) /uL Baso # (Auto) 100 (0-100) /uL Total Counted Seg Neutrophils % (38-70) % Band Neutrophils % (3-7) % Lymphocytes % (Manual) (25-45) % Monocytes % (Manual) (2-11) % Neutrophils # (Manual) (1465-5822) /uL Nucleated RBCs Hypersegmented Neuts Hypogranular Neuts Reactive Lymphocytes Smudge Cells Other Cell Type Toxic Granulation Toxic Vacuolation Dohle Bodies Rafaela Rods WBC Morphology Comment Platelet Estimate Clumped Platelets Plt Morphology Comment RBC Morphology See below Dimorphic RBCs Polychromasia Hypochromasia Poikilocytosis Basophilic Stippling Anisocytosis 2+ H Microcytosis Macrocytosis 3+ H Spherocytes Pappenheimer Bodies Sickle Cells Target Cells Tear Drop Cells Ovalocytes Stomatocytes Helmet Cells [place] Bodies [place] Rings [place] Cells 2+ H Acanthocytes (Spur) 1+ H Rouleaux Schistocytes PT 12.7 (10.1-12.7) SECONDS INR 1.1 (0.9-1.3) APTT 42 H (26-36) SECONDS D-Dimer (<500) ng/ml ABG pH (7.35-7.45) ABG pCO2 (35-45) mmHg ABG pO2 (80-100) mmHg ABG HCO3 (22-26) mmol/L ABG Total CO2 (21-31) mmol/L ABG O2 Saturation (95-100) % ABG Base Excess (-2-2) mmol/L FiO2 Sodium 137 (137-145) mmol/L Potassium 4.7 (3.4-5.1) mmol/L Chloride 101 (98-107) mmol/L Carbon Dioxide < 5 L* (22-32) mmol/L BUN 65 H (7-17) mg/dL Creatinine 3.61 H (0.52-1.04) mg/dL Estimated GFR 13 L (>60) mL/min BUN/Creatinine Ratio 18.0 (6-22) Glucose 302 H D (80-110) mg/dL Lactate (0.7-2.1) mmol/L Calcium 8.7 (8.4-10.2) mg/dL Total Bilirubin 1.2 (0.2-1.3) mg/dL AST 50 H (14-36) IU/L ALT 28 (<35) IU/L Alkaline Phosphatase 316 H D (38-126) U/L Ammonia (9-30) umol/L Total Creatine Kinase 145 H (30-135) U/L CK-MB (CK-2) 4.38 H (<2.37) ng/mL CK-MB (CK-2) Rel Index 3.0 (1.5-5.0) % Troponin I 0.109 H (0.01-0.034) ng/mL Total Protein 7.3 (6.3-8.2) g/dL Albumin 3.9 (3.5-5.0) g/dL Globulin 3.4 (1.7-4.1) g/dL Albumin/Globulin Ratio 1.1 (1.0-2.8) Lipase (23-300) U/L Procalcitonin (<0.5) ng/mL TSH (0.47-4.68) uIU/mL Prolactin 23.8 H (3.0-18.6) ng/mL Urine Color Urine Appearance Urine pH (4.5-8.0) Ur Specific [place] (1.000-1.035) Urine Protein (Negative) Urine Glucose (UA) (Negative) g/dL Urine Ketones (NEGATIVE) Urine Occult Blood (Negative) Urine Nitrate (Negative) Urine Bilirubin (NEGATIVE) Urine Urobilinogen (0.2) E.U./dL Ur Leukocyte Esterase (NEGATIVE) Urine RBC (0-5/HPF) Urine WBC (0-5/HPF) Ur Squamous Epith Cells (0-5/HPF) Ur Transition Epith Cell (0-5/HPF) Urine Bacteria (None) Salicylates 1.1 (<20) mg/dL U Opiates 300ng/mL cut (Negative) Ur Oxycodone Screen (Negative) Urine Methadone Screen (Negative) Acetaminophen 274 H* (10-30) ug/mL Ur Barbiturates Screen (Negative) U Tricyclic Antidepress (Negative) Ur Phencyclidine Scrn (Negative) Ur Amphetamines Screen (Negative) U Methamphetamines Scrn (Negative) Ur MDMA Scrn (Ecstasy) (Negative) U Benzodiazepines Scrn (Negative) Urine Cocaine Screen (Negative) U Marijuana (THC) Screen (Negative) Ethyl Alcohol < 10 ( - 10) mg/dL A. baumannii (PCR) (Not Detect) Aura albicans (PCR) (Not Detect) C. glabrata (PCR) (Not Detect) C. krusei (PCR) (Not Detect) C. parapsilosis (PCR) (Not Detect) C. tropicalis (PCR) (Not Detect) SARS-CoV-2 (PCR) (Negative) Enterobacteriac sp PCR (Not Detect) E. cloacae complex PCR (Not Detect) Enterococcus sp PCR (Not Detect) E. coli (PCR) (Not Detect) H. influenzae (PCR) (Not Detect) Klebsiella oxytoca PCR (Not Detect) Klebsiella pneumoniae (Not Detect) List. monocytogenes PCR (Not Detect) N. meningitidis (PCR) (Not Detect) Proteus species (PCR) (Not Detect) Serratia marcescens PCR (Not Detect) Staphylococcus sp PCR (Not Detect) Staph aureus (PCR) (Not Detect) mecA-Methicil Res Gene Streptococcus sp PCR (Not Detect) Group A Strep (PCR) (Not Detect) Strep agalactiae (PCR) (Not Detect) Strep pneumoniae (PCR) (Not Detect) P. aeruginosa (PCR) (Not Detect) Jet/B-Vanco Res Genes KPC-Carbap Res Gene PCR (Not Detect) 07/21/22 07/21/22 07/21/22 Range/Units 12:36 12:36 12:36 WBC (4.5-11.0) X10^3/uL RBC (4.0-5.2) X10^6/uL Hgb (12.0-16.0) g/dL Hct (36-46) % MCV (80-100) fL MCH (26-34) PG MCHC (30-36) % RDW (11.6-14.8) % Plt Count (150-400) X10^3/uL Neut % (Auto) (50-75) % Lymph % (Auto) (25-40) % Gillespie % (Auto) (3-14) % Eos % (Auto) (2-4) % Baso % (Auto) (0-2) % Neut # (Auto) (2925-3990) /uL Lymph # (Auto) (5005-8112) /uL [place]illespie # (Auto) (0-900) /uL Eos # (Auto) (0-450) /uL Baso # (Auto) (0-100) /uL Total Counted Seg Neutrophils % (38-70) % Band Neutrophils % (3-7) % Lymphocytes % (Manual) (25-45) % Monocytes % (Manual) (2-11) % Neutrophils # (Manual) (2429-3150) /uL Nucleated RBCs Hypersegmented Neuts Hypogranular Neuts Reactive Lymphocytes Smudge Cells Other Cell Type Toxic Granulation Toxic Vacuolation Dohle Bodies Rafaela Rods WBC Morphology Comment Platelet Estimate Clumped Platelets Plt Morphology Comment RBC Morphology Dimorphic RBCs Polychromasia Hypochromasia Poikilocytosis Basophilic Stippling Anisocytosis Microcytosis Macrocytosis Spherocytes Pappenheimer Bodies Sickle Cells Target Cells Tear Drop Cells Ovalocytes Stomatocytes Helmet Cells [place] Bodies [place] Rings [place] Cells Acanthocytes (Spur) Rouleaux Schistocytes PT (10.1-12.7) SECONDS INR (0.9-1.3) APTT (26-36) SECONDS D-Dimer (<500) ng/ml ABG pH (7.35-7.45) ABG pCO2 (35-45) mmHg ABG pO2 (80-100) mmHg ABG HCO3 (22-26) mmol/L ABG Total CO2 (21-31) mmol/L ABG O2 Saturation (95-100) % ABG Base Excess (-2-2) mmol/L FiO2 Sodium (137-145) mmol/L Potassium (3.4-5.1) mmol/L Chloride (98-107) mmol/L Carbon Dioxide (22-32) mmol/L BUN (7-17) mg/dL Creatinine (0.52-1.04) mg/dL Estimated GFR (>60) mL/min BUN/Creatinine Ratio (6-22) Glucose (80-110) mg/dL Lactate 3.3 H (0.7-2.1) mmol/L Calcium (8.4-10.2) mg/dL Total Bilirubin (0.2-1.3) mg/dL AST (14-36) IU/L ALT (<35) IU/L Alkaline Phosphatase (38-126) U/L Ammonia 219 H (9-30) umol/L Total Creatine Kinase (30-135) U/L CK-MB (CK-2) (<2.37) ng/mL CK-MB (CK-2) Rel Index (1.5-5.0) % Troponin I (0.01-0.034) ng/mL Total Protein (6.3-8.2) g/dL Albumin (3.5-5.0) g/dL Globulin (1.7-4.1) g/dL Albumin/Globulin Ratio (1.0-2.8) Lipase (23-300) U/L Procalcitonin (<0.5) ng/mL TSH 1.04 (0.47-4.68) uIU/mL Prolactin (3.0-18.6) ng/mL Urine Color Urine Appearance Urine pH (4.5-8.0) Ur Specific [place] (1.000-1.035) Urine Protein (Negative) Urine Glucose (UA) (Negative) g/dL Urine Ketones (NEGATIVE) Urine Occult Blood (Negative) Urine Nitrate (Negative) Urine Bilirubin (NEGATIVE) Urine Urobilinogen (0.2) E.U./dL Ur Leukocyte Esterase (NEGATIVE) Urine RBC (0-5/HPF) Urine WBC (0-5/HPF) Ur Squamous Epith Cells (0-5/HPF) Ur Transition Epith Cell (0-5/HPF) Urine Bacteria (None) Salicylates (<20) mg/dL U Opiates 300ng/mL cut (Negative) Ur Oxycodone Screen (Negative) Urine Methadone Screen (Negative) Acetaminophen (10-30) ug/mL Ur Barbiturates Screen (Negative) U Tricyclic Antidepress (Negative) Ur Phencyclidine Scrn (Negative) Ur Amphetamines Screen (Negative) U Methamphetamines Scrn (Negative) Ur MDMA Scrn (Ecstasy) (Negative) U Benzodiazepines Scrn (Negative) Urine Cocaine Screen (Negative) U Marijuana (THC) Screen (Negative) Ethyl Alcohol ( - 10) mg/dL A. baumannii (PCR) (Not Detect) [place] albicans (PCR) (Not Detect) C. glabrata (PCR) (Not Detect) C. krusei (PCR) (Not Detect) C. parapsilosis (PCR) (Not Detect) C. tropicalis (PCR) (Not Detect) SARS-CoV-2 (PCR) (Negative) Enterobacteriac sp PCR (Not Detect) E. cloacae complex PCR (Not Detect) Enterococcus sp PCR (Not Detect) E. coli (PCR) (Not Detect) H. influenzae (PCR) (Not Detect) Klebsiella oxytoca PCR (Not Detect) Klebsiella pneumoniae (Not Detect) List. monocytogenes PCR (Not Detect) N. meningitidis (PCR) (Not Detect) Proteus species (PCR) (Not Detect) Serratia marcescens PCR (Not Detect) Staphylococcus sp PCR (Not Detect) Staph aureus (PCR) (Not Detect) mecA-Methicil Res Gene Streptococcus sp PCR (Not Detect) Group A Strep (PCR) (Not Detect) Strep agalactiae (PCR) (Not Detect) Strep pneumoniae (PCR) (Not Detect) P. aeruginosa (PCR) (Not Detect) Jet/B-Vanco Res Genes KPC-Carbap Res Gene PCR (Not Detect) 07/21/22 07/21/22 07/21/22 Range/Units 12:36 13:23 13:48 WBC (4.5-11.0) X10^3/uL RBC (4.0-5.2) X10^6/uL Hgb (12.0-16.0) g/dL Hct (36-46) % MCV (80-100) fL MCH (26-34) PG MCHC (30-36) % RDW (11.6-14.8) % Plt Count (150-400) X10^3/uL Neut % (Auto) (50-75) % Lymph % (Auto) (25-40) % [place]pie % (Auto) (3-14) % Eos % (Auto) (2-4) % Baso % (Auto) (0-2) % Neut # (Auto) (4099-9868) /uL Lymph # (Auto) (5663-2334) /uL [place] # (Auto) (0-900) /uL Eos # (Auto) (0-450) /uL Baso # (Auto) (0-100) /uL Total Counted Seg Neutrophils % (38-70) % Band Neutrophils % (3-7) % Lymphocytes % (Manual) (25-45) % Monocytes % (Manual) (2-11) % Neutrophils # (Manual) (3609-2912) /uL Nucleated RBCs Hypersegmented Neuts Hypogranular Neuts Reactive Lymphocytes Smudge Cells Other Cell Type Toxic Granulation Toxic Vacuolation Dohle Bodies Rafaela Rods WBC Morphology Comment Platelet Estimate Clumped Platelets Plt Morphology Comment RBC Morphology Dimorphic RBCs Polychromasia Hypochromasia Poikilocytosis Basophilic Stippling Anisocytosis Microcytosis Macrocytosis Spherocytes Pappenheimer Bodies Sickle Cells Target Cells Tear Drop Cells Ovalocytes Stomatocytes Helmet Cells [place] Bodies [place] Rings Jennings Cells Acanthocytes (Spur) Rouleaux Schistocytes PT (10.1-12.7) SECONDS INR (0.9-1.3) APTT (26-36) SECONDS D-Dimer (<500) ng/ml ABG pH 6.78 L* (7.35-7.45) ABG pCO2 13.1 L* (35-45) mmHg ABG pO2 58 L (80-100) mmHg ABG HCO3 2 L (22-26) mmol/L ABG Total CO2 < 5 L (21-31) mmol/L ABG O2 Saturation 61 L* (95-100) % ABG Base Excess < -30.0 L (-2-2) mmol/L FiO2 21 Sodium (137-145) mmol/L Potassium (3.4-5.1) mmol/L Chloride (98-107) mmol/L Carbon Dioxide (22-32) mmol/L BUN (7-17) mg/dL Creatinine (0.52-1.04) mg/dL Estimated GFR (>60) mL/min BUN/Creatinine Ratio (6-22) Glucose (80-110) mg/dL Lactate (0.7-2.1) mmol/L Calcium (8.4-10.2) mg/dL Total Bilirubin (0.2-1.3) mg/dL AST (14-36) IU/L ALT (<35) IU/L Alkaline Phosphatase (38-126) U/L Ammonia (9-30) umol/L Total Creatine Kinase (30-135) U/L CK-MB (CK-2) (<2.37) ng/mL CK-MB (CK-2) Rel Index (1.5-5.0) % Troponin I (0.01-0.034) ng/mL Total Protein (6.3-8.2) g/dL Albumin (3.5-5.0) g/dL Globulin (1.7-4.1) g/dL Albumin/Globulin Ratio (1.0-2.8) Lipase 5863 H (23-300) U/L Procalcitonin (<0.5) ng/mL TSH (0.47-4.68) uIU/mL Prolactin (3.0-18.6) ng/mL Urine Color Yellow Urine Appearance Cloudy Urine pH 5.0 (4.5-8.0) Ur Specific [place] 1.020 (1.000-1.035) Urine Protein 2+ H (Negative) Urine Glucose (UA) Trace H (Negative) g/dL Urine Ketones Negative (NEGATIVE) Urine Occult Blood 3+ H (Negative) Urine Nitrate Negative (Negative) Urine Bilirubin Negative (NEGATIVE) Urine Urobilinogen 0.2 (0.2) E.U./dL Ur Leukocyte Esterase 2+ H (NEGATIVE) Urine RBC 10-30/hpf H (0-5/HPF) Urine WBC >100/hpf H (0-5/HPF) Ur Squamous Epith Cells 0-1 /hpf D (0-5/HPF) Ur Transition Epith Cell 0-1/hpf (0-5/HPF) Urine Bacteria Many (>30) H (None) Salicylates (<20) mg/dL U Opiates 300ng/mL cut (Negative) Ur Oxycodone Screen (Negative) Urine Methadone Screen (Negative) Acetaminophen (10-30) ug/mL Ur Barbiturates Screen (Negative) U Tricyclic Antidepress (Negative) Ur Phencyclidine Scrn (Negative) Ur Amphetamines Screen (Negative) U Methamphetamines Scrn (Negative) Ur MDMA Scrn (Ecstasy) (Negative) U Benzodiazepines Scrn (Negative) Urine Cocaine Screen (Negative) U Marijuana (THC) Screen (Negative) Ethyl Alcohol ( - 10) mg/dL A. baumannii (PCR) (Not Detect) Aura albicans (PCR) (Not Detect) C. glabrata (PCR) (Not Detect) C. krusei (PCR) (Not Detect) C. parapsilosis (PCR) (Not Detect) C. tropicalis (PCR) (Not Detect) SARS-CoV-2 (PCR) (Negative) Enterobacteriac sp PCR (Not Detect) E. cloacae complex PCR (Not Detect) Enterococcus sp PCR (Not Detect) E. coli (PCR) (Not Detect) H. influenzae (PCR) (Not Detect) Klebsiella oxytoca PCR (Not Detect) Klebsiella pneumoniae (Not Detect) List. monocytogenes PCR (Not Detect) N. meningitidis (PCR) (Not Detect) Proteus species (PCR) (Not Detect) Serratia marcescens PCR (Not Detect) Staphylococcus sp PCR (Not Detect) Staph aureus (PCR) (Not Detect) mecA-Methicil Res Gene Streptococcus sp PCR (Not Detect) Group A Strep (PCR) (Not Detect) Strep agalactiae (PCR) (Not Detect) Strep pneumoniae (PCR) (Not Detect) P. aeruginosa (PCR) (Not Detect) Jet/B-Vanco Res Genes KPC-Carbap Res Gene PCR (Not Detect) 07/21/22 07/21/22 07/21/22 Range/Units 13:48 13:48 15:45 WBC (4.5-11.0) X10^3/uL RBC (4.0-5.2) X10^6/uL Hgb (12.0-16.0) g/dL Hct (36-46) % MCV (80-100) fL MCH (26-34) PG MCHC (30-36) % RDW (11.6-14.8) % Plt Count (150-400) X10^3/uL Neut % (Auto) (50-75) % Lymph % (Auto) (25-40) % [place] % (Auto) (3-14) % Eos % (Auto) (2-4) % Baso % (Auto) (0-2) % Neut # (Auto) (8304-1378) /uL Lymph # (Auto) (9645-3587) /uL [place] # (Auto) (0-900) /uL Eos # (Auto) (0-450) /uL Baso # (Auto) (0-100) /uL Total Counted Seg Neutrophils % (38-70) % Band Neutrophils % (3-7) % Lymphocytes % (Manual) (25-45) % Monocytes % (Manual) (2-11) % Neutrophils # (Manual) (3562-6601) /uL Nucleated RBCs Hypersegmented Neuts Hypogranular Neuts Reactive Lymphocytes Smudge Cells Other Cell Type Toxic Granulation Toxic Vacuolation Dohle Bodies Rafaela Rods WBC Morphology Comment Platelet Estimate Clumped Platelets Plt Morphology Comment RBC Morphology Dimorphic RBCs Polychromasia Hypochromasia Poikilocytosis Basophilic Stippling Anisocytosis Microcytosis Macrocytosis Spherocytes Pappenheimer Bodies Sickle Cells Target Cells Tear Drop Cells Ovalocytes Stomatocytes Helmet Cells [place] Bodies [place] Rings [place]izwan Cells Acanthocytes (Spur) Rouleaux Schistocytes PT (10.1-12.7) SECONDS INR (0.9-1.3) APTT (26-36) SECONDS D-Dimer (<500) ng/ml ABG pH 6.78 L* (7.35-7.45) ABG pCO2 17.0 L* (35-45) mmHg ABG pO2 180 H (80-100) mmHg ABG HCO3 3 L (22-26) mmol/L ABG Total CO2 < 5 L (21-31) mmol/L ABG O2 Saturation 98 (95-100) % ABG Base Excess < -30.0 L (-2-2) mmol/L FiO2 30 Sodium (137-145) mmol/L Potassium (3.4-5.1) mmol/L Chloride (98-107) mmol/L Carbon Dioxide (22-32) mmol/L BUN (7-17) mg/dL Creatinine (0.52-1.04) mg/dL Estimated GFR (>60) mL/min BUN/Creatinine Ratio (6-22) Glucose (80-110) mg/dL Lactate (0.7-2.1) mmol/L Calcium (8.4-10.2) mg/dL Total Bilirubin (0.2-1.3) mg/dL AST (14-36) IU/L ALT (<35) IU/L Alkaline Phosphatase (38-126) U/L Ammonia (9-30) umol/L Total Creatine Kinase (30-135) U/L CK-MB (CK-2) (<2.37) ng/mL CK-MB (CK-2) Rel Index (1.5-5.0) % Troponin I (0.01-0.034) ng/mL Total Protein (6.3-8.2) g/dL Albumin (3.5-5.0) g/dL Globulin (1.7-4.1) g/dL Albumin/Globulin Ratio (1.0-2.8) Lipase (23-300) U/L Procalcitonin (<0.5) ng/mL TSH (0.47-4.68) uIU/mL Prolactin (3.0-18.6) ng/mL Urine Color Urine Appearance Urine pH (4.5-8.0) Ur Specific [place] (1.000-1.035) Urine Protein (Negative) Urine Glucose (UA) (Negative) g/dL Urine Ketones (NEGATIVE) Urine Occult Blood (Negative) Urine Nitrate (Negative) Urine Bilirubin (NEGATIVE) Urine Urobilinogen (0.2) E.U./dL Ur Leukocyte Esterase (NEGATIVE) Urine RBC (0-5/HPF) Urine WBC (0-5/HPF) Ur Squamous Epith Cells (0-5/HPF) Ur Transition Epith Cell (0-5/HPF) Urine Bacteria (None) Salicylates (<20) mg/dL U Opiates 300ng/mL cut Negative (Negative) Ur Oxycodone Screen Negative (Negative) Urine Methadone Screen Negative (Negative) Acetaminophen (10-30) ug/mL Ur Barbiturates Screen Negative (Negative) U Tricyclic Antidepress Negative (Negative) Ur Phencyclidine Scrn Negative (Negative) Ur Amphetamines Screen Negative (Negative) U Methamphetamines Scrn Negative (Negative) Ur MDMA Scrn (Ecstasy) Negative (Negative) U Benzodiazepines Scrn Positive H (Negative) Urine Cocaine Screen Negative (Negative) U Marijuana (THC) Screen Negative (Negative) Ethyl Alcohol ( - 10) mg/dL A. baumannii (PCR) (Not Detect) Aura albicans (PCR) (Not Detect) C. glabrata (PCR) (Not Detect) C. krusei (PCR) (Not Detect) C. parapsilosis (PCR) (Not Detect) C. tropicalis (PCR) (Not Detect) SARS-CoV-2 (PCR) Negative (Negative) Enterobacteriac sp PCR (Not Detect) E. cloacae complex PCR (Not Detect) Enterococcus sp PCR (Not Detect) E. coli (PCR) (Not Detect) H. influenzae (PCR) (Not Detect) Klebsiella oxytoca PCR (Not Detect) Klebsiella pneumoniae (Not Detect) List. monocytogenes PCR (Not Detect) N. meningitidis (PCR) (Not Detect) Proteus species (PCR) (Not Detect) Serratia marcescens PCR (Not Detect) Staphylococcus sp PCR (Not Detect) Staph aureus (PCR) (Not Detect) mecA-Methicil Res Gene Streptococcus sp PCR (Not Detect) Group A Strep (PCR) (Not Detect) Strep agalactiae (PCR) (Not Detect) Strep pneumoniae (PCR) (Not Detect) P. aeruginosa (PCR) (Not Detect) Jet/B-Vanco Res Genes KPC-Carbap Res Gene PCR (Not Detect) 07/21/22 07/21/22 07/21/22 Range/Units 17:48 17:48 17:48 WBC 16.8 H (4.5-11.0) X10^3/uL RBC 2.34 L (4.0-5.2) X10^6/uL Hgb 8.7 L (12.0-16.0) g/dL Hct 26.5 L (36-46) % MCV 113.5 H D (80-100) fL MCH 37.3 H (26-34) PG MCHC 32.8 (30-36) % RDW 19.2 H (11.6-14.8) % Plt Count 333 (150-400) X10^3/uL Neut % (Auto) 94.7 H (50-75) % Lymph % (Auto) 3.8 L (25-40) % [place] % (Auto) 1.2 L (3-14) % Eos % (Auto) 0.0 L (2-4) % Baso % (Auto) 0.3 (0-2) % Neut # (Auto) 62422 H (5187-8972) /uL Lymph # (Auto) 600 L (6689-7641) /uL [place] # (Auto) 200 (0-900) /uL Eos # (Auto) 0 (0-450) /uL Baso # (Auto) 0 (0-100) /uL Total Counted Seg Neutrophils % (38-70) % Band Neutrophils % (3-7) % Lymphocytes % (Manual) (25-45) % Monocytes % (Manual) (2-11) % Neutrophils # (Manual) (5126-2774) /uL Nucleated RBCs Cancelled Hypersegmented Neuts Cancelled Hypogranular Neuts Cancelled Reactive Lymphocytes Cancelled Smudge Cells Cancelled Other Cell Type Cancelled Toxic Granulation Cancelled Toxic Vacuolation Cancelled Dohle Bodies Cancelled Rafaela Rods Cancelled WBC Morphology Comment Cancelled Platelet Estimate Cancelled Clumped Platelets Cancelled Plt Morphology Comment Cancelled RBC Morphology Cancelled Dimorphic RBCs Cancelled Polychromasia Cancelled Hypochromasia Cancelled Poikilocytosis Cancelled Basophilic Stippling Cancelled Anisocytosis Cancelled Microcytosis Cancelled Macrocytosis Cancelled Spherocytes Cancelled Pappenheimer Bodies Cancelled Sickle Cells Cancelled Target Cells Cancelled Tear Drop Cells Cancelled Ovalocytes Cancelled Stomatocytes Cancelled Helmet Cells Cancelled [place] Bodies Cancelled [place] Rings Cancelled [place] Cells Cancelled Acanthocytes (Spur) Cancelled Rouleaux Cancelled Schistocytes Cancelled PT (10.1-12.7) SECONDS INR (0.9-1.3) APTT 35 D (26-36) SECONDS D-Dimer (<500) ng/ml ABG pH (7.35-7.45) ABG pCO2 (35-45) mmHg ABG pO2 (80-100) mmHg ABG HCO3 (22-26) mmol/L ABG Total CO2 (21-31) mmol/L ABG O2 Saturation (95-100) % ABG Base Excess (-2-2) mmol/L FiO2 Sodium (137-145) mmol/L Potassium (3.4-5.1) mmol/L Chloride (98-107) mmol/L Carbon Dioxide (22-32) mmol/L BUN (7-17) mg/dL Creatinine (0.52-1.04) mg/dL Estimated GFR (>60) mL/min BUN/Creatinine Ratio (6-22) Glucose (80-110) mg/dL Lactate 2.0 (0.7-2.1) mmol/L Calcium (8.4-10.2) mg/dL Total Bilirubin (0.2-1.3) mg/dL AST (14-36) IU/L ALT (<35) IU/L Alkaline Phosphatase (38-126) U/L Ammonia (9-30) umol/L Total Creatine Kinase (30-135) U/L CK-MB (CK-2) (<2.37) ng/mL CK-MB (CK-2) Rel Index (1.5-5.0) % Troponin I (0.01-0.034) ng/mL Total Protein (6.3-8.2) g/dL Albumin (3.5-5.0) g/dL Globulin (1.7-4.1) g/dL Albumin/Globulin Ratio (1.0-2.8) Lipase (23-300) U/L Procalcitonin (<0.5) ng/mL TSH (0.47-4.68) uIU/mL Prolactin (3.0-18.6) ng/mL Urine Color Urine Appearance Urine pH (4.5-8.0) Ur Specific [place] (1.000-1.035) Urine Protein (Negative) Urine Glucose (UA) (Negative) g/dL Urine Ketones (NEGATIVE) Urine Occult Blood (Negative) Urine Nitrate (Negative) Urine Bilirubin (NEGATIVE) Urine Urobilinogen (0.2) E.U./dL Ur Leukocyte Esterase (NEGATIVE) Urine RBC (0-5/HPF) Urine WBC (0-5/HPF) Ur Squamous Epith Cells (0-5/HPF) Ur Transition Epith Cell (0-5/HPF) Urine Bacteria (None) Salicylates (<20) mg/dL U Opiates 300ng/mL cut (Negative) Ur Oxycodone Screen (Negative) Urine Methadone Screen (Negative) Acetaminophen (10-30) ug/mL Ur Barbiturates Screen (Negative) U Tricyclic Antidepress (Negative) Ur Phencyclidine Scrn (Negative) Ur Amphetamines Screen (Negative) U Methamphetamines Scrn (Negative) Ur MDMA Scrn (Ecstasy) (Negative) U Benzodiazepines Scrn (Negative) Urine Cocaine Screen (Negative) U Marijuana (THC) Screen (Negative) Ethyl Alcohol ( - 10) mg/dL A. baumannii (PCR) (Not Detect) Aura albicans (PCR) (Not Detect) C. glabrata (PCR) (Not Detect) C. krusei (PCR) (Not Detect) C. parapsilosis (PCR) (Not Detect) C. tropicalis (PCR) (Not Detect) SARS-CoV-2 (PCR) (Negative) Enterobacteriac sp PCR (Not Detect) E. cloacae complex PCR (Not Detect) Enterococcus sp PCR (Not Detect) E. coli (PCR) (Not Detect) H. influenzae (PCR) (Not Detect) Klebsiella oxytoca PCR (Not Detect) Klebsiella pneumoniae (Not Detect) List. monocytogenes PCR (Not Detect) N. meningitidis (PCR) (Not Detect) Proteus species (PCR) (Not Detect) Serratia marcescens PCR (Not Detect) Staphylococcus sp PCR (Not Detect) Staph aureus (PCR) (Not Detect) mecA-Methicil Res Gene Streptococcus sp PCR (Not Detect) Group A Strep (PCR) (Not Detect) Strep agalactiae (PCR) (Not Detect) Strep pneumoniae (PCR) (Not Detect) P. aeruginosa (PCR) (Not Detect) Jet/B-Vanco Res Genes KPC-Carbap Res Gene PCR (Not Detect) 07/21/22 07/21/22 07/21/22 Range/Units 17:48 17:48 17:48 WBC (4.5-11.0) X10^3/uL RBC (4.0-5.2) X10^6/uL Hgb (12.0-16.0) g/dL Hct (36-46) % MCV (80-100) fL MCH (26-34) PG MCHC (30-36) % RDW (11.6-14.8) % Plt Count (150-400) X10^3/uL Neut % (Auto) (50-75) % Lymph % (Auto) (25-40) % Gillespie % (Auto) (3-14) % Eos % (Auto) (2-4) % Baso % (Auto) (0-2) % Neut # (Auto) (1014-8377) /uL Lymph # (Auto) (7980-2427) /uL Gillespie # (Auto) (0-900) /uL Eos # (Auto) (0-450) /uL Baso # (Auto) (0-100) /uL Total Counted Seg Neutrophils % (38-70) % Band Neutrophils % (3-7) % Lymphocytes % (Manual) (25-45) % Monocytes % (Manual) (2-11) % Neutrophils # (Manual) (4965-8375) /uL Nucleated RBCs Hypersegmented Neuts Hypogranular Neuts Reactive Lymphocytes Smudge Cells Other Cell Type Toxic Granulation Toxic Vacuolation Dohle Bodies Rafaela Rods WBC Morphology Comment Platelet Estimate Clumped Platelets Plt Morphology Comment RBC Morphology Dimorphic RBCs Polychromasia Hypochromasia Poikilocytosis Basophilic Stippling Anisocytosis Microcytosis Macrocytosis Spherocytes Pappenheimer Bodies Sickle Cells Target Cells Tear Drop Cells Ovalocytes Stomatocytes Helmet Cells [place] Bodies [place] Rings [place] Cells Acanthocytes (Spur) Rouleaux Schistocytes PT (10.1-12.7) SECONDS INR (0.9-1.3) APTT (26-36) SECONDS D-Dimer (<500) ng/ml ABG pH (7.35-7.45) ABG pCO2 (35-45) mmHg ABG pO2 (80-100) mmHg ABG HCO3 (22-26) mmol/L ABG Total CO2 (21-31) mmol/L ABG O2 Saturation (95-100) % ABG Base Excess (-2-2) mmol/L FiO2 Sodium 140 (137-145) mmol/L Potassium 4.0 (3.4-5.1) mmol/L Chloride 108 H (98-107) mmol/L Carbon Dioxide < 5 L* (22-32) mmol/L BUN 60 H (7-17) mg/dL Creatinine 2.85 H (0.52-1.04) mg/dL Estimated GFR 17 L (>60) mL/min BUN/Creatinine Ratio 21.1 (6-22) Glucose 165 H D (80-110) mg/dL Lactate (0.7-2.1) mmol/L Calcium 7.0 L (8.4-10.2) mg/dL Total Bilirubin 0.8 (0.2-1.3) mg/dL AST 32 (14-36) IU/L ALT 21 (<35) IU/L Alkaline Phosphatase 228 H (38-126) U/L Ammonia 150 H (9-30) umol/L Total Creatine Kinase (30-135) U/L CK-MB (CK-2) (<2.37) ng/mL CK-MB (CK-2) Rel Index (1.5-5.0) % Troponin I 0.303 H* (0.01-0.034) ng/mL Total Protein 4.9 L (6.3-8.2) g/dL Albumin 2.6 L (3.5-5.0) g/dL Globulin 2.3 (1.7-4.1) g/dL Albumin/Globulin Ratio 1.1 (1.0-2.8) Lipase (23-300) U/L Procalcitonin (<0.5) ng/mL TSH (0.47-4.68) uIU/mL Prolactin (3.0-18.6) ng/mL Urine Color Urine Appearance Urine pH (4.5-8.0) Ur Specific [place] (1.000-1.035) Urine Protein (Negative) Urine Glucose (UA) (Negative) g/dL Urine Ketones (NEGATIVE) Urine Occult Blood (Negative) Urine Nitrate (Negative) Urine Bilirubin (NEGATIVE) Urine Urobilinogen (0.2) E.U./dL Ur Leukocyte Esterase (NEGATIVE) Urine RBC (0-5/HPF) Urine WBC (0-5/HPF) Ur Squamous Epith Cells (0-5/HPF) Ur Transition Epith Cell (0-5/HPF) Urine Bacteria (None) Salicylates (<20) mg/dL U Opiates 300ng/mL cut (Negative) Ur Oxycodone Screen (Negative) Urine Methadone Screen (Negative) Acetaminophen 255 H* (10-30) ug/mL Ur Barbiturates Screen (Negative) U Tricyclic Antidepress (Negative) Ur Phencyclidine Scrn (Negative) Ur Amphetamines Screen (Negative) U Methamphetamines Scrn (Negative) Ur MDMA Scrn (Ecstasy) (Negative) U Benzodiazepines Scrn (Negative) Urine Cocaine Screen (Negative) U Marijuana (THC) Screen (Negative) Ethyl Alcohol ( - 10) mg/dL A. baumannii (PCR) (Not Detect) Aura albicans (PCR) (Not Detect) C. glabrata (PCR) (Not Detect) C. krusei (PCR) (Not Detect) C. parapsilosis (PCR) (Not Detect) C. tropicalis (PCR) (Not Detect) SARS-CoV-2 (PCR) (Negative) Enterobacteriac sp PCR (Not Detect) E. cloacae complex PCR (Not Detect) Enterococcus sp PCR (Not Detect) E. coli (PCR) (Not Detect) H. influenzae (PCR) (Not Detect) Klebsiella oxytoca PCR (Not Detect) Klebsiella pneumoniae (Not Detect) List. monocytogenes PCR (Not Detect) N. meningitidis (PCR) (Not Detect) Proteus species (PCR) (Not Detect) Serratia marcescens PCR (Not Detect) Staphylococcus sp PCR (Not Detect) Staph aureus (PCR) (Not Detect) mecA-Methicil Res Gene Streptococcus sp PCR (Not Detect) Group A Strep (PCR) (Not Detect) Strep agalactiae (PCR) (Not Detect) Strep pneumoniae (PCR) (Not Detect) P. aeruginosa (PCR) (Not Detect) Jet/B-Vanco Res Genes KPC-Carbap Res Gene PCR (Not Detect) 07/21/22 07/21/22 07/21/22 Range/Units 17:48 17:48 20:19 WBC (4.5-11.0) X10^3/uL RBC (4.0-5.2) X10^6/uL Hgb (12.0-16.0) g/dL Hct (36-46) % MCV (80-100) fL MCH (26-34) PG MCHC (30-36) % RDW (11.6-14.8) % Plt Count (150-400) X10^3/uL Neut % (Auto) (50-75) % Lymph % (Auto) (25-40) % Gillespie % (Auto) (3-14) % Eos % (Auto) (2-4) % Baso % (Auto) (0-2) % Neut # (Auto) (6955-2629) /uL Lymph # (Auto) (7131-5685) /uL Gillespie # (Auto) (0-900) /uL Eos # (Auto) (0-450) /uL Baso # (Auto) (0-100) /uL Total Counted Seg Neutrophils % (38-70) % Band Neutrophils % (3-7) % Lymphocytes % (Manual) (25-45) % Monocytes % (Manual) (2-11) % Neutrophils # (Manual) (7874-9892) /uL Nucleated RBCs Hypersegmented Neuts Hypogranular Neuts Reactive Lymphocytes Smudge Cells Other Cell Type Toxic Granulation Toxic Vacuolation Dohle Bodies Rafaela Rods WBC Morphology Comment Platelet Estimate Clumped Platelets Plt Morphology Comment RBC Morphology Dimorphic RBCs Polychromasia Hypochromasia Poikilocytosis Basophilic Stippling Anisocytosis Microcytosis Macrocytosis Spherocytes Pappenheimer Bodies Sickle Cells Target Cells Tear Drop Cells Ovalocytes Stomatocytes Helmet Cells [place] Bodies [place] Rings Rizwan Cells Acanthocytes (Spur) Rouleaux Schistocytes PT 13.4 H (10.1-12.7) SECONDS INR 1.2 (0.9-1.3) APTT (26-36) SECONDS D-Dimer (<500) ng/ml ABG pH 7.12 L* (7.35-7.45) ABG pCO2 15.4 L* (35-45) mmHg ABG pO2 153 H (80-100) mmHg ABG HCO3 5 L (22-26) mmol/L ABG Total CO2 5 L (21-31) mmol/L ABG O2 Saturation 99 (95-100) % ABG Base Excess -24.0 L (-2-2) mmol/L FiO2 30 Sodium (137-145) mmol/L Potassium (3.4-5.1) mmol/L Chloride (98-107) mmol/L Carbon Dioxide (22-32) mmol/L BUN (7-17) mg/dL Creatinine (0.52-1.04) mg/dL Estimated GFR (>60) mL/min BUN/Creatinine Ratio (6-22) Glucose (80-110) mg/dL Lactate (0.7-2.1) mmol/L Calcium (8.4-10.2) mg/dL Total Bilirubin (0.2-1.3) mg/dL AST (14-36) IU/L ALT (<35) IU/L Alkaline Phosphatase (38-126) U/L Ammonia (9-30) umol/L Total Creatine Kinase (30-135) U/L CK-MB (CK-2) (<2.37) ng/mL CK-MB (CK-2) Rel Index (1.5-5.0) % Troponin I (0.01-0.034) ng/mL Total Protein (6.3-8.2) g/dL Albumin (3.5-5.0) g/dL Globulin (1.7-4.1) g/dL Albumin/Globulin Ratio (1.0-2.8) Lipase (23-300) U/L Procalcitonin (<0.5) ng/mL TSH (0.47-4.68) uIU/mL Prolactin (3.0-18.6) ng/mL Urine Color Urine Appearance Urine pH (4.5-8.0) Ur Specific [place] (1.000-1.035) Urine Protein (Negative) Urine Glucose (UA) (Negative) g/dL Urine Ketones (NEGATIVE) Urine Occult Blood (Negative) Urine Nitrate (Negative) Urine Bilirubin (NEGATIVE) Urine Urobilinogen (0.2) E.U./dL Ur Leukocyte Esterase (NEGATIVE) Urine RBC (0-5/HPF) Urine WBC (0-5/HPF) Ur Squamous Epith Cells (0-5/HPF) Ur Transition Epith Cell (0-5/HPF) Urine Bacteria (None) Salicylates (<20) mg/dL U Opiates 300ng/mL cut (Negative) Ur Oxycodone Screen (Negative) Urine Methadone Screen (Negative) Acetaminophen (10-30) ug/mL Ur Barbiturates Screen (Negative) U Tricyclic Antidepress (Negative) Ur Phencyclidine Scrn (Negative) Ur Amphetamines Screen (Negative) U Methamphetamines Scrn (Negative) Ur MDMA Scrn (Ecstasy) (Negative) U Benzodiazepines Scrn (Negative) Urine Cocaine Screen (Negative) U Marijuana (THC) Screen (Negative) Ethyl Alcohol ( - 10) mg/dL A. baumannii (PCR) Not detected (Not Detect) Aura albicans (PCR) Not detected (Not Detect) C. glabrata (PCR) Not detected (Not Detect) C. krusei (PCR) Not detected (Not Detect) C. parapsilosis (PCR) Not detected (Not Detect) C. tropicalis (PCR) Not detected (Not Detect) SARS-CoV-2 (PCR) (Negative) Enterobacteriac sp PCR Detected H (Not Detect) E. cloacae complex PCR Not detected (Not Detect) Enterococcus sp PCR Not detected (Not Detect) E. coli (PCR) Not detected (Not Detect) H. influenzae (PCR) Not detected (Not Detect) Klebsiella oxytoca PCR Not detected (Not Detect) Klebsiella pneumoniae Detected H (Not Detect) List. monocytogenes PCR Not detected (Not Detect) N. meningitidis (PCR) Not detected (Not Detect) Proteus species (PCR) Not detected (Not Detect) Serratia marcescens PCR Not detected (Not Detect) Staphylococcus sp PCR Not detected (Not Detect) Staph aureus (PCR) Not detected (Not Detect) mecA-Methicil Res Gene Not Reportable Streptococcus sp PCR Not detected (Not Detect) Group A Strep (PCR) Not detected (Not Detect) Strep agalactiae (PCR) Not detected (Not Detect) Strep pneumoniae (PCR) Not detected (Not Detect) P. aeruginosa (PCR) Not detected (Not Detect) Jet/B-Vanco Res Genes Not Reportable KPC-Carbap Res Gene PCR Not detected (Not Detect) 07/21/22 07/21/22 07/21/22 Range/Units 22:57 22:57 22:57 WBC (4.5-11.0) X10^3/uL RBC (4.0-5.2) X10^6/uL Hgb (12.0-16.0) g/dL Hct (36-46) % MCV (80-100) fL MCH (26-34) PG MCHC (30-36) % RDW (11.6-14.8) % Plt Count (150-400) X10^3/uL Neut % (Auto) (50-75) % Lymph % (Auto) (25-40) % Gillespie % (Auto) (3-14) % Eos % (Auto) (2-4) % Baso % (Auto) (0-2) % Neut # (Auto) (4945-2889) /uL Lymph # (Auto) (0117-8805) /uL [place]illespie # (Auto) (0-900) /uL Eos # (Auto) (0-450) /uL Baso # (Auto) (0-100) /uL Total Counted Seg Neutrophils % (38-70) % Band Neutrophils % (3-7) % Lymphocytes % (Manual) (25-45) % Monocytes % (Manual) (2-11) % Neutrophils # (Manual) (7607-7880) /uL Nucleated RBCs Hypersegmented Neuts Hypogranular Neuts Reactive Lymphocytes Smudge Cells Other Cell Type Toxic Granulation Toxic Vacuolation Dohle Bodies Rafaela Rods WBC Morphology Comment Platelet Estimate Clumped Platelets Plt Morphology Comment RBC Morphology Dimorphic RBCs Polychromasia Hypochromasia Poikilocytosis Basophilic Stippling Anisocytosis Microcytosis Macrocytosis Spherocytes Pappenheimer Bodies Sickle Cells Target Cells Tear Drop Cells Ovalocytes Stomatocytes Helmet Cells [place] Bodies [place] Rings Rizwan Cells Acanthocytes (Spur) Rouleaux Schistocytes PT 15.7 H (10.1-12.7) SECONDS INR 1.4 H (0.9-1.3) APTT (26-36) SECONDS D-Dimer (<500) ng/ml ABG pH (7.35-7.45) ABG pCO2 (35-45) mmHg ABG pO2 (80-100) mmHg ABG HCO3 (22-26) mmol/L ABG Total CO2 (21-31) mmol/L ABG O2 Saturation (95-100) % ABG Base Excess (-2-2) mmol/L FiO2 Sodium 140 (137-145) mmol/L Potassium 3.2 L (3.4-5.1) mmol/L Chloride 105 (98-107) mmol/L Carbon Dioxide 5 L* (22-32) mmol/L BUN 60 H (7-17) mg/dL Creatinine 3.28 H (0.52-1.04) mg/dL Estimated GFR 15 L (>60) mL/min BUN/Creatinine Ratio 18.3 (6-22) Glucose 136 H (80-110) mg/dL Lactate (0.7-2.1) mmol/L Calcium 6.7 L (8.4-10.2) mg/dL Total Bilirubin 0.8 (0.2-1.3) mg/dL AST 36 (14-36) IU/L ALT 24 (<35) IU/L Alkaline Phosphatase 214 H (38-126) U/L Ammonia 64 H (9-30) umol/L Total Creatine Kinase (30-135) U/L CK-MB (CK-2) (<2.37) ng/mL CK-MB (CK-2) Rel Index (1.5-5.0) % Troponin I 1.020 H* (0.01-0.034) ng/mL Total Protein 5.5 L (6.3-8.2) g/dL Albumin 2.9 L (3.5-5.0) g/dL Globulin 2.6 (1.7-4.1) g/dL Albumin/Globulin Ratio 1.1 (1.0-2.8) Lipase 3270 H (23-300) U/L Procalcitonin (<0.5) ng/mL TSH (0.47-4.68) uIU/mL Prolactin (3.0-18.6) ng/mL Urine Color Urine Appearance Urine pH (4.5-8.0) Ur Specific [place] (1.000-1.035) Urine Protein (Negative) Urine Glucose (UA) (Negative) g/dL Urine Ketones (NEGATIVE) Urine Occult Blood (Negative) Urine Nitrate (Negative) Urine Bilirubin (NEGATIVE) Urine Urobilinogen (0.2) E.U./dL Ur Leukocyte Esterase (NEGATIVE) Urine RBC (0-5/HPF) Urine WBC (0-5/HPF) Ur Squamous Epith Cells (0-5/HPF) Ur Transition Epith Cell (0-5/HPF) Urine Bacteria (None) Salicylates (<20) mg/dL U Opiates 300ng/mL cut (Negative) Ur Oxycodone Screen (Negative) Urine Methadone Screen (Negative) Acetaminophen 188 H* (10-30) ug/mL Ur Barbiturates Screen (Negative) U Tricyclic Antidepress (Negative) Ur Phencyclidine Scrn (Negative) Ur Amphetamines Screen (Negative) U Methamphetamines Scrn (Negative) Ur MDMA Scrn (Ecstasy) (Negative) U Benzodiazepines Scrn (Negative) Urine Cocaine Screen (Negative) U Marijuana (THC) Screen (Negative) Ethyl Alcohol ( - 10) mg/dL A. baumannii (PCR) (Not Detect) Aura albicans (PCR) (Not Detect) C. glabrata (PCR) (Not Detect) C. krusei (PCR) (Not Detect) C. parapsilosis (PCR) (Not Detect) C. tropicalis (PCR) (Not Detect) SARS-CoV-2 (PCR) (Negative) Enterobacteriac sp PCR (Not Detect) E. cloacae complex PCR (Not Detect) Enterococcus sp PCR (Not Detect) E. coli (PCR) (Not Detect) H. influenzae (PCR) (Not Detect) Klebsiella oxytoca PCR (Not Detect) Klebsiella pneumoniae (Not Detect) List. monocytogenes PCR (Not Detect) N. meningitidis (PCR) (Not Detect) Proteus species (PCR) (Not Detect) Serratia marcescens PCR (Not Detect) Staphylococcus sp PCR (Not Detect) Staph aureus (PCR) (Not Detect) mecA-Methicil Res Gene Streptococcus sp PCR (Not Detect) Group A Strep (PCR) (Not Detect) Strep agalactiae (PCR) (Not Detect) Strep pneumoniae (PCR) (Not Detect) P. aeruginosa (PCR) (Not Detect) Jet/B-Vanco Res Genes KPC-Carbap Res Gene PCR (Not Detect) 07/21/22 07/22/22 07/22/22 Range/Units 23:27 04:30 04:30 WBC (4.5-11.0) X10^3/uL RBC (4.0-5.2) X10^6/uL Hgb (12.0-16.0) g/dL Hct (36-46) % MCV (80-100) fL MCH (26-34) PG MCHC (30-36) % RDW (11.6-14.8) % Plt Count (150-400) X10^3/uL Neut % (Auto) (50-75) % Lymph % (Auto) (25-40) % [place] % (Auto) (3-14) % Eos % (Auto) (2-4) % Baso % (Auto) (0-2) % Neut # (Auto) (1721-3820) /uL Lymph # (Auto) (5839-1031) /uL [place] # (Auto) (0-900) /uL Eos # (Auto) (0-450) /uL Baso # (Auto) (0-100) /uL Total Counted Seg Neutrophils % (38-70) % Band Neutrophils % (3-7) % Lymphocytes % (Manual) (25-45) % Monocytes % (Manual) (2-11) % Neutrophils # (Manual) (2112-2977) /uL Nucleated RBCs Hypersegmented Neuts Hypogranular Neuts Reactive Lymphocytes Smudge Cells Other Cell Type Toxic Granulation Toxic Vacuolation Dohle Bodies Rafaela Rods WBC Morphology Comment Platelet Estimate Clumped Platelets Plt Morphology Comment RBC Morphology Dimorphic RBCs Polychromasia Hypochromasia Poikilocytosis Basophilic Stippling Anisocytosis Microcytosis Macrocytosis Spherocytes Pappenheimer Bodies Sickle Cells Target Cells Tear Drop Cells Ovalocytes Stomatocytes Helmet Cells [place] Bodies [place] Rings [place] Cells Acanthocytes (Spur) Rouleaux Schistocytes PT (10.1-12.7) SECONDS INR (0.9-1.3) APTT (26-36) SECONDS D-Dimer (<500) ng/ml ABG pH 7.10 L* (7.35-7.45) ABG pCO2 14.5 L* (35-45) mmHg ABG pO2 167 H (80-100) mmHg ABG HCO3 5 L (22-26) mmol/L ABG Total CO2 < 5 L (21-31) mmol/L ABG O2 Saturation 99 (95-100) % ABG Base Excess -25.0 L (-2-2) mmol/L FiO2 30 Sodium 138 (137-145) mmol/L Potassium 3.2 L (3.4-5.1) mmol/L Chloride 102 (98-107) mmol/L Carbon Dioxide < 5 L* (22-32) mmol/L BUN 62 H (7-17) mg/dL Creatinine 3.59 H (0.52-1.04) mg/dL Estimated GFR 13 L (>60) mL/min BUN/Creatinine Ratio 17.3 (6-22) Glucose 89 (80-110) mg/dL Lactate (0.7-2.1) mmol/L Calcium 6.7 L (8.4-10.2) mg/dL Total Bilirubin 0.7 (0.2-1.3) mg/dL AST 31 (14-36) IU/L ALT 23 (<35) IU/L Alkaline Phosphatase 177 H (38-126) U/L Ammonia 50 H (9-30) umol/L Total Creatine Kinase (30-135) U/L CK-MB (CK-2) (<2.37) ng/mL CK-MB (CK-2) Rel Index (1.5-5.0) % Troponin I 1.080 H* (0.01-0.034) ng/mL Total Protein 5.5 L (6.3-8.2) g/dL Albumin 2.8 L (3.5-5.0) g/dL Globulin 2.7 (1.7-4.1) g/dL Albumin/Globulin Ratio 1.0 (1.0-2.8) Lipase 2860 H (23-300) U/L Procalcitonin (<0.5) ng/mL TSH (0.47-4.68) uIU/mL Prolactin (3.0-18.6) ng/mL Urine Color Urine Appearance Urine pH (4.5-8.0) Ur Specific [place] (1.000-1.035) Urine Protein (Negative) Urine Glucose (UA) (Negative) g/dL Urine Ketones (NEGATIVE) Urine Occult Blood (Negative) Urine Nitrate (Negative) Urine Bilirubin (NEGATIVE) Urine Urobilinogen (0.2) E.U./dL Ur Leukocyte Esterase (NEGATIVE) Urine RBC (0-5/HPF) Urine WBC (0-5/HPF) Ur Squamous Epith Cells (0-5/HPF) Ur Transition Epith Cell (0-5/HPF) Urine Bacteria (None) Salicylates (<20) mg/dL U Opiates 300ng/mL cut (Negative) Ur Oxycodone Screen (Negative) Urine Methadone Screen (Negative) Acetaminophen (10-30) ug/mL Ur Barbiturates Screen (Negative) U Tricyclic Antidepress (Negative) Ur Phencyclidine Scrn (Negative) Ur Amphetamines Screen (Negative) U Methamphetamines Scrn (Negative) Ur MDMA Scrn (Ecstasy) (Negative) U Benzodiazepines Scrn (Negative) Urine Cocaine Screen (Negative) U Marijuana (THC) Screen (Negative) Ethyl Alcohol ( - 10) mg/dL A. baumannii (PCR) (Not Detect) Aura albicans (PCR) (Not Detect) C. glabrata (PCR) (Not Detect) C. krusei (PCR) (Not Detect) C. parapsilosis (PCR) (Not Detect) C. tropicalis (PCR) (Not Detect) SARS-CoV-2 (PCR) (Negative) Enterobacteriac sp PCR (Not Detect) E. cloacae complex PCR (Not Detect) Enterococcus sp PCR (Not Detect) E. coli (PCR) (Not Detect) H. influenzae (PCR) (Not Detect) Klebsiella oxytoca PCR (Not Detect) Klebsiella pneumoniae (Not Detect) List. monocytogenes PCR (Not Detect) N. meningitidis (PCR) (Not Detect) Proteus species (PCR) (Not Detect) Serratia marcescens PCR (Not Detect) Staphylococcus sp PCR (Not Detect) Staph aureus (PCR) (Not Detect) mecA-Methicil Res Gene Streptococcus sp PCR (Not Detect) Group A Strep (PCR) (Not Detect) Strep agalactiae (PCR) (Not Detect) Strep pneumoniae (PCR) (Not Detect) P. aeruginosa (PCR) (Not Detect) Jet/B-Vanco Res Genes KPC-Carbap Res Gene PCR (Not Detect) 07/22/22 07/22/22 07/22/22 Range/Units 04:30 04:30 04:30 WBC (4.5-11.0) X10^3/uL RBC (4.0-5.2) X10^6/uL Hgb (12.0-16.0) g/dL Hct (36-46) % MCV (80-100) fL MCH (26-34) PG MCHC (30-36) % RDW (11.6-14.8) % Plt Count (150-400) X10^3/uL Neut % (Auto) (50-75) % Lymph % (Auto) (25-40) % [place] % (Auto) (3-14) % Eos % (Auto) (2-4) % Baso % (Auto) (0-2) % Neut # (Auto) (8809-5855) /uL Lymph # (Auto) (7904-9275) /uL [place] # (Auto) (0-900) /uL Eos # (Auto) (0-450) /uL Baso # (Auto) (0-100) /uL Total Counted Seg Neutrophils % (38-70) % Band Neutrophils % (3-7) % Lymphocytes % (Manual) (25-45) % Monocytes % (Manual) (2-11) % Neutrophils # (Manual) (1870-3074) /uL Nucleated RBCs Hypersegmented Neuts Hypogranular Neuts Reactive Lymphocytes Smudge Cells Other Cell Type Toxic Granulation Toxic Vacuolation Dohle Bodies Rafaela Rods WBC Morphology Comment Platelet Estimate Clumped Platelets Plt Morphology Comment RBC Morphology Dimorphic RBCs Polychromasia Hypochromasia Poikilocytosis Basophilic Stippling Anisocytosis Microcytosis Macrocytosis Spherocytes Pappenheimer Bodies Sickle Cells Target Cells Tear Drop Cells Ovalocytes Stomatocytes Helmet Cells [place] Bodies [place] Rings [place] Cells Acanthocytes (Spur) Rouleaux Schistocytes PT (10.1-12.7) SECONDS INR (0.9-1.3) APTT (26-36) SECONDS D-Dimer (<500) ng/ml ABG pH (7.35-7.45) ABG pCO2 (35-45) mmHg ABG pO2 (80-100) mmHg ABG HCO3 (22-26) mmol/L ABG Total CO2 (21-31) mmol/L ABG O2 Saturation (95-100) % ABG Base Excess (-2-2) mmol/L FiO2 Sodium (137-145) mmol/L Potassium (3.4-5.1) mmol/L Chloride (98-107) mmol/L Carbon Dioxide (22-32) mmol/L BUN (7-17) mg/dL Creatinine (0.52-1.04) mg/dL Estimated GFR (>60) mL/min BUN/Creatinine Ratio (6-22) Glucose (80-110) mg/dL Lactate 1.3 (0.7-2.1) mmol/L Calcium (8.4-10.2) mg/dL Total Bilirubin (0.2-1.3) mg/dL AST (14-36) IU/L ALT (<35) IU/L Alkaline Phosphatase (38-126) U/L Ammonia (9-30) umol/L Total Creatine Kinase 173 H (30-135) U/L CK-MB (CK-2) (<2.37) ng/mL CK-MB (CK-2) Rel Index (1.5-5.0) % Troponin I (0.01-0.034) ng/mL Total Protein (6.3-8.2) g/dL Albumin (3.5-5.0) g/dL Globulin (1.7-4.1) g/dL Albumin/Globulin Ratio (1.0-2.8) Lipase (23-300) U/L Procalcitonin (<0.5) ng/mL TSH (0.47-4.68) uIU/mL Prolactin (3.0-18.6) ng/mL Urine Color Urine Appearance Urine pH (4.5-8.0) Ur Specific [place] (1.000-1.035) Urine Protein (Negative) Urine Glucose (UA) (Negative) g/dL Urine Ketones (NEGATIVE) Urine Occult Blood (Negative) Urine Nitrate (Negative) Urine Bilirubin (NEGATIVE) Urine Urobilinogen (0.2) E.U./dL Ur Leukocyte Esterase (NEGATIVE) Urine RBC (0-5/HPF) Urine WBC (0-5/HPF) Ur Squamous Epith Cells (0-5/HPF) Ur Transition Epith Cell (0-5/HPF) Urine Bacteria (None) Salicylates (<20) mg/dL U Opiates 300ng/mL cut (Negative) Ur Oxycodone Screen (Negative) Urine Methadone Screen (Negative) Acetaminophen 117 H* (10-30) ug/mL Ur Barbiturates Screen (Negative) U Tricyclic Antidepress (Negative) Ur Phencyclidine Scrn (Negative) Ur Amphetamines Screen (Negative) U Methamphetamines Scrn (Negative) Ur MDMA Scrn (Ecstasy) (Negative) U Benzodiazepines Scrn (Negative) Urine Cocaine Screen (Negative) U Marijuana (THC) Screen (Negative) Ethyl Alcohol ( - 10) mg/dL A. baumannii (PCR) (Not Detect) Aura albicans (PCR) (Not Detect) C. glabrata (PCR) (Not Detect) C. krusei (PCR) (Not Detect) C. parapsilosis (PCR) (Not Detect) C. tropicalis (PCR) (Not Detect) SARS-CoV-2 (PCR) (Negative) Enterobacteriac sp PCR (Not Detect) E. cloacae complex PCR (Not Detect) Enterococcus sp PCR (Not Detect) E. coli (PCR) (Not Detect) H. influenzae (PCR) (Not Detect) Klebsiella oxytoca PCR (Not Detect) Klebsiella pneumoniae (Not Detect) List. monocytogenes PCR (Not Detect) N. meningitidis (PCR) (Not Detect) Proteus species (PCR) (Not Detect) Serratia marcescens PCR (Not Detect) Staphylococcus sp PCR (Not Detect) Staph aureus (PCR) (Not Detect) mecA-Methicil Res Gene Streptococcus sp PCR (Not Detect) Group A Strep (PCR) (Not Detect) Strep agalactiae (PCR) (Not Detect) Strep pneumoniae (PCR) (Not Detect) P. aeruginosa (PCR) (Not Detect) Jet/B-Vanco Res Genes KPC-Carbap Res Gene PCR (Not Detect) 07/22/22 07/22/22 07/22/22 Range/Units 04:55 05:37 08:08 WBC (4.5-11.0) X10^3/uL RBC (4.0-5.2) X10^6/uL Hgb (12.0-16.0) g/dL Hct (36-46) % MCV (80-100) fL MCH (26-34) PG MCHC (30-36) % RDW (11.6-14.8) % Plt Count (150-400) X10^3/uL Neut % (Auto) (50-75) % Lymph % (Auto) (25-40) % Gillespie % (Auto) (3-14) % Eos % (Auto) (2-4) % Baso % (Auto) (0-2) % Neut # (Auto) (3570-5708) /uL Lymph # (Auto) (1465-1195) /uL Gillespie # (Auto) (0-900) /uL Eos # (Auto) (0-450) /uL Baso # (Auto) (0-100) /uL Total Counted Seg Neutrophils % (38-70) % Band Neutrophils % (3-7) % Lymphocytes % (Manual) (25-45) % Monocytes % (Manual) (2-11) % Neutrophils # (Manual) (7665-7467) /uL Nucleated RBCs Hypersegmented Neuts Hypogranular Neuts Reactive Lymphocytes Smudge Cells Other Cell Type Toxic Granulation Toxic Vacuolation Dohle Bodies Rafaela Rods WBC Morphology Comment Platelet Estimate Clumped Platelets Plt Morphology Comment RBC Morphology Dimorphic RBCs Polychromasia Hypochromasia Poikilocytosis Basophilic Stippling Anisocytosis Microcytosis Macrocytosis Spherocytes Pappenheimer Bodies Sickle Cells Target Cells Tear Drop Cells Ovalocytes Stomatocytes Helmet Cells [place] Bodies [place] Rings Jennings Cells Acanthocytes (Spur) Rouleaux Schistocytes PT 18.3 H (10.1-12.7) SECONDS INR 1.6 H (0.9-1.3) APTT (26-36) SECONDS D-Dimer (<500) ng/ml ABG pH 7.06 L* 7.13 L* (7.35-7.45) ABG pCO2 15.7 L* 17.0 L* (35-45) mmHg ABG pO2 163 H 149 H (80-100) mmHg ABG HCO3 5 L 6 L (22-26) mmol/L ABG Total CO2 < 5 L 6 L (21-31) mmol/L ABG O2 Saturation 99 99 (95-100) % ABG Base Excess -26.0 L -23.0 L (-2-2) mmol/L FiO2 30 30 Sodium (137-145) mmol/L Potassium (3.4-5.1) mmol/L Chloride (98-107) mmol/L Carbon Dioxide (22-32) mmol/L BUN (7-17) mg/dL Creatinine (0.52-1.04) mg/dL Estimated GFR (>60) mL/min BUN/Creatinine Ratio (6-22) Glucose (80-110) mg/dL Lactate (0.7-2.1) mmol/L Calcium (8.4-10.2) mg/dL Total Bilirubin (0.2-1.3) mg/dL AST (14-36) IU/L ALT (<35) IU/L Alkaline Phosphatase (38-126) U/L Ammonia (9-30) umol/L Total Creatine Kinase (30-135) U/L CK-MB (CK-2) (<2.37) ng/mL CK-MB (CK-2) Rel Index (1.5-5.0) % Troponin I (0.01-0.034) ng/mL Total Protein (6.3-8.2) g/dL Albumin (3.5-5.0) g/dL Globulin (1.7-4.1) g/dL Albumin/Globulin Ratio (1.0-2.8) Lipase (23-300) U/L Procalcitonin (<0.5) ng/mL TSH (0.47-4.68) uIU/mL Prolactin (3.0-18.6) ng/mL Urine Color Urine Appearance Urine pH (4.5-8.0) Ur Specific [place] (1.000-1.035) Urine Protein (Negative) Urine Glucose (UA) (Negative) g/dL Urine Ketones (NEGATIVE) Urine Occult Blood (Negative) Urine Nitrate (Negative) Urine Bilirubin (NEGATIVE) Urine Urobilinogen (0.2) E.U./dL Ur Leukocyte Esterase (NEGATIVE) Urine RBC (0-5/HPF) Urine WBC (0-5/HPF) Ur Squamous Epith Cells (0-5/HPF) Ur Transition Epith Cell (0-5/HPF) Urine Bacteria (None) Salicylates (<20) mg/dL U Opiates 300ng/mL cut (Negative) Ur Oxycodone Screen (Negative) Urine Methadone Screen (Negative) Acetaminophen (10-30) ug/mL Ur Barbiturates Screen (Negative) U Tricyclic Antidepress (Negative) Ur Phencyclidine Scrn (Negative) Ur Amphetamines Screen (Negative) U Methamphetamines Scrn (Negative) Ur MDMA Scrn (Ecstasy) (Negative) U Benzodiazepines Scrn (Negative) Urine Cocaine Screen (Negative) U Marijuana (THC) Screen (Negative) Ethyl Alcohol ( - 10) mg/dL A. baumannii (PCR) (Not Detect) Aura albicans (PCR) (Not Detect) C. glabrata (PCR) (Not Detect) C. krusei (PCR) (Not Detect) C. parapsilosis (PCR) (Not Detect) C. tropicalis (PCR) (Not Detect) SARS-CoV-2 (PCR) (Negative) Enterobacteriac sp PCR (Not Detect) E. cloacae complex PCR (Not Detect) Enterococcus sp PCR (Not Detect) E. coli (PCR) (Not Detect) H. influenzae (PCR) (Not Detect) Klebsiella oxytoca PCR (Not Detect) Klebsiella pneumoniae (Not Detect) List. monocytogenes PCR (Not Detect) N. meningitidis (PCR) (Not Detect) Proteus species (PCR) (Not Detect) Serratia marcescens PCR (Not Detect) Staphylococcus sp PCR (Not Detect) Staph aureus (PCR) (Not Detect) mecA-Methicil Res Gene Streptococcus sp PCR (Not Detect) Group A Strep (PCR) (Not Detect) Strep agalactiae (PCR) (Not Detect) Strep pneumoniae (PCR) (Not Detect) P. aeruginosa (PCR) (Not Detect) Jet/B-Vanco Res Genes KPC-Carbap Res Gene PCR (Not Detect) 07/22/22 07/22/22 07/22/22 Range/Units 08:15 10:00 10:00 WBC 8.7 (4.5-11.0) X10^3/uL RBC 2.77 L (4.0-5.2) X10^6/uL Hgb 10.5 L (12.0-16.0) g/dL Hct 31.1 L (36-46) % MCV 112.1 H (80-100) fL MCH 37.9 H (26-34) PG MCHC 33.8 (30-36) % RDW 18.6 H (11.6-14.8) % Plt Count 369 (150-400) X10^3/uL Neut % (Auto) Not Reportable (50-75) % Lymph % (Auto) Not Reportable (25-40) % Gillespie % (Auto) Not Reportable (3-14) % Eos % (Auto) Not Reportable (2-4) % Baso % (Auto) Not Reportable (0-2) % Neut # (Auto) (7779-8421) /uL Lymph # (Auto) Not Reportable (3839-4444) /uL Gillespie # (Auto) Not Reportable (0-900) /uL Eos # (Auto) (0-450) /uL Baso # (Auto) Not Reportable (0-100) /uL Total Counted 100 Seg Neutrophils % 63.0 (38-70) % Band Neutrophils % 16.0 H (3-7) % Lymphocytes % (Manual) 18.0 L (25-45) % Monocytes % (Manual) 3.0 (2-11) % Neutrophils # (Manual) 6873 H (3988-9882) /uL Nucleated RBCs 13 H Hypersegmented Neuts Hypogranular Neuts Reactive Lymphocytes Smudge Cells Other Cell Type Toxic Granulation Toxic Vacuolation Dohle Bodies Rafaela Rods WBC Morphology Comment Platelet Estimate Clumped Platelets Plt Morphology Comment RBC Morphology See below Dimorphic RBCs Polychromasia Hypochromasia Poikilocytosis Basophilic Stippling Anisocytosis Microcytosis Macrocytosis 2+ H Spherocytes Pappenheimer Bodies Sickle Cells Target Cells Tear Drop Cells Ovalocytes Stomatocytes Helmet Cells [place] Bodies [place] Rings Jennings Cells 1+ H Acanthocytes (Spur) 1+ H Rouleaux Schistocytes 1+ H PT 18.7 H (10.1-12.7) SECONDS INR 1.6 H (0.9-1.3) APTT 53 H D (26-36) SECONDS D-Dimer (<500) ng/ml ABG pH (7.35-7.45) ABG pCO2 (35-45) mmHg ABG pO2 (80-100) mmHg ABG HCO3 (22-26) mmol/L ABG Total CO2 (21-31) mmol/L ABG O2 Saturation (95-100) % ABG Base Excess (-2-2) mmol/L FiO2 Sodium (137-145) mmol/L Potassium (3.4-5.1) mmol/L Chloride (98-107) mmol/L Carbon Dioxide (22-32) mmol/L BUN (7-17) mg/dL Creatinine (0.52-1.04) mg/dL Estimated GFR (>60) mL/min BUN/Creatinine Ratio (6-22) Glucose (80-110) mg/dL Lactate (0.7-2.1) mmol/L Calcium (8.4-10.2) mg/dL Total Bilirubin (0.2-1.3) mg/dL AST (14-36) IU/L ALT (<35) IU/L Alkaline Phosphatase (38-126) U/L Ammonia (9-30) umol/L Total Creatine Kinase (30-135) U/L CK-MB (CK-2) (<2.37) ng/mL CK-MB (CK-2) Rel Index (1.5-5.0) % Troponin I (0.01-0.034) ng/mL Total Protein (6.3-8.2) g/dL Albumin (3.5-5.0) g/dL Globulin (1.7-4.1) g/dL Albumin/Globulin Ratio (1.0-2.8) Lipase (23-300) U/L Procalcitonin 91.3 H (<0.5) ng/mL TSH (0.47-4.68) uIU/mL Prolactin (3.0-18.6) ng/mL Urine Color Urine Appearance Urine pH (4.5-8.0) Ur Specific [place] (1.000-1.035) Urine Protein (Negative) Urine Glucose (UA) (Negative) g/dL Urine Ketones (NEGATIVE) Urine Occult Blood (Negative) Urine Nitrate (Negative) Urine Bilirubin (NEGATIVE) Urine Urobilinogen (0.2) E.U./dL Ur Leukocyte Esterase (NEGATIVE) Urine RBC (0-5/HPF) Urine WBC (0-5/HPF) Ur Squamous Epith Cells (0-5/HPF) Ur Transition Epith Cell (0-5/HPF) Urine Bacteria (None) Salicylates (<20) mg/dL U Opiates 300ng/mL cut (Negative) Ur Oxycodone Screen (Negative) Urine Methadone Screen (Negative) Acetaminophen (10-30) ug/mL Ur Barbiturates Screen (Negative) U Tricyclic Antidepress (Negative) Ur Phencyclidine Scrn (Negative) Ur Amphetamines Screen (Negative) U Methamphetamines Scrn (Negative) Ur MDMA Scrn (Ecstasy) (Negative) U Benzodiazepines Scrn (Negative) Urine Cocaine Screen (Negative) U Marijuana (THC) Screen (Negative) Ethyl Alcohol ( - 10) mg/dL A. baumannii (PCR) (Not Detect) Aura albicans (PCR) (Not Detect) C. glabrata (PCR) (Not Detect) C. krusei (PCR) (Not Detect) C. parapsilosis (PCR) (Not Detect) C. tropicalis (PCR) (Not Detect) SARS-CoV-2 (PCR) (Negative) Enterobacteriac sp PCR (Not Detect) E. cloacae complex PCR (Not Detect) Enterococcus sp PCR (Not Detect) E. coli (PCR) (Not Detect) H. influenzae (PCR) (Not Detect) Klebsiella oxytoca PCR (Not Detect) Klebsiella pneumoniae (Not Detect) List. monocytogenes PCR (Not Detect) N. meningitidis (PCR) (Not Detect) Proteus species (PCR) (Not Detect) Serratia marcescens PCR (Not Detect) Staphylococcus sp PCR (Not Detect) Staph aureus (PCR) (Not Detect) mecA-Methicil Res Gene Streptococcus sp PCR (Not Detect) Group A Strep (PCR) (Not Detect) Strep agalactiae (PCR) (Not Detect) Strep pneumoniae (PCR) (Not Detect) P. aeruginosa (PCR) (Not Detect) Jet/B-Vanco Res Genes KPC-Carbap Res Gene PCR (Not Detect) 07/22/22 07/22/22 Range/Units 10:00 10:00 WBC (4.5-11.0) X10^3/uL RBC (4.0-5.2) X10^6/uL Hgb (12.0-16.0) g/dL Hct (36-46) % MCV (80-100) fL MCH (26-34) PG MCHC (30-36) % RDW (11.6-14.8) % Plt Count (150-400) X10^3/uL Neut % (Auto) (50-75) % Lymph % (Auto) (25-40) % Gillespie % (Auto) (3-14) % Eos % (Auto) (2-4) % Baso % (Auto) (0-2) % Neut # (Auto) (0200-5653) /uL Lymph # (Auto) (6230-0449) /uL Gillespie # (Auto) (0-900) /uL Eos # (Auto) (0-450) /uL Baso # (Auto) (0-100) /uL Total Counted Seg Neutrophils % (38-70) % Band Neutrophils % (3-7) % Lymphocytes % (Manual) (25-45) % Monocytes % (Manual) (2-11) % Neutrophils # (Manual) (5650-6964) /uL Nucleated RBCs Hypersegmented Neuts Hypogranular Neuts Reactive Lymphocytes Smudge Cells Other Cell Type Toxic Granulation Toxic Vacuolation Dohle Bodies Rafaela Rods WBC Morphology Comment Platelet Estimate Clumped Platelets Plt Morphology Comment RBC Morphology Dimorphic RBCs Polychromasia Hypochromasia Poikilocytosis Basophilic Stippling Anisocytosis Microcytosis Macrocytosis Spherocytes Pappenheimer Bodies Sickle Cells Target Cells Tear Drop Cells Ovalocytes Stomatocytes Helmet Cells [place] Bodies [place] Rings [place] Cells Acanthocytes (Spur) Rouleaux Schistocytes PT (10.1-12.7) SECONDS INR (0.9-1.3) APTT (26-36) SECONDS D-Dimer 89608 H (<500) ng/ml ABG pH (7.35-7.45) ABG pCO2 (35-45) mmHg ABG pO2 (80-100) mmHg ABG HCO3 (22-26) mmol/L ABG Total CO2 (21-31) mmol/L ABG O2 Saturation (95-100) % ABG Base Excess (-2-2) mmol/L FiO2 Sodium 139 (137-145) mmol/L Potassium 3.1 L (3.4-5.1) mmol/L Chloride 102 (98-107) mmol/L Carbon Dioxide 6 L* (22-32) mmol/L BUN 60 H (7-17) mg/dL Creatinine 3.48 H (0.52-1.04) mg/dL Estimated GFR 14 L (>60) mL/min BUN/Creatinine Ratio 17.2 (6-22) Glucose 97 (80-110) mg/dL Lactate (0.7-2.1) mmol/L Calcium 6.7 L (8.4-10.2) mg/dL Total Bilirubin 0.7 (0.2-1.3) mg/dL AST 35 (14-36) IU/L ALT 23 (<35) IU/L Alkaline Phosphatase 190 H (38-126) U/L Ammonia (9-30) umol/L Total Creatine Kinase (30-135) U/L CK-MB (CK-2) (<2.37) ng/mL CK-MB (CK-2) Rel Index (1.5-5.0) % Troponin I (0.01-0.034) ng/mL Total Protein 5.7 L (6.3-8.2) g/dL Albumin 2.8 L (3.5-5.0) g/dL Globulin 2.9 (1.7-4.1) g/dL Albumin/Globulin Ratio 1.0 (1.0-2.8) Lipase 2033 H (23-300) U/L Procalcitonin (<0.5) ng/mL TSH (0.47-4.68) uIU/mL Prolactin (3.0-18.6) ng/mL Urine Color Urine Appearance Urine pH (4.5-8.0) Ur Specific [place] (1.000-1.035) Urine Protein (Negative) Urine Glucose (UA) (Negative) g/dL Urine Ketones (NEGATIVE) Urine Occult Blood (Negative) Urine Nitrate (Negative) Urine Bilirubin (NEGATIVE) Urine Urobilinogen (0.2) E.U./dL Ur Leukocyte Esterase (NEGATIVE) Urine RBC (0-5/HPF) Urine WBC (0-5/HPF) Ur Squamous Epith Cells (0-5/HPF) Ur Transition Epith Cell (0-5/HPF) Urine Bacteria (None) Salicylates (<20) mg/dL U Opiates 300ng/mL cut (Negative) Ur Oxycodone Screen (Negative) Urine Methadone Screen (Negative) Acetaminophen 70 H* (10-30) ug/mL Ur Barbiturates Screen (Negative) U Tricyclic Antidepress (Negative) Ur Phencyclidine Scrn (Negative) Ur Amphetamines Screen (Negative) U Methamphetamines Scrn (Negative) Ur MDMA Scrn (Ecstasy) (Negative) U Benzodiazepines Scrn (Negative) Urine Cocaine Screen (Negative) U Marijuana (THC) Screen (Negative) Ethyl Alcohol ( - 10) mg/dL A. baumannii (PCR) (Not Detect) Aura albicans (PCR) (Not Detect) C. glabrata (PCR) (Not Detect) C. krusei (PCR) (Not Detect) C. parapsilosis (PCR) (Not Detect) C. tropicalis (PCR) (Not Detect) SARS-CoV-2 (PCR) (Negative) Enterobacteriac sp PCR (Not Detect) E. cloacae complex PCR (Not Detect) Enterococcus sp PCR (Not Detect) E. coli (PCR) (Not Detect) H. influenzae (PCR) (Not Detect) Klebsiella oxytoca PCR (Not Detect) Klebsiella pneumoniae (Not Detect) List. monocytogenes PCR (Not Detect) N. meningitidis (PCR) (Not Detect) Proteus species (PCR) (Not Detect) Serratia marcescens PCR (Not Detect) Staphylococcus sp PCR (Not Detect) Staph aureus (PCR) (Not Detect) mecA-Methicil Res Gene Streptococcus sp PCR (Not Detect) Group A Strep (PCR) (Not Detect) Strep agalactiae (PCR) (Not Detect) Strep pneumoniae (PCR) (Not Detect) P. aeruginosa (PCR) (Not Detect) Jet/B-Vanco Res Genes KPC-Carbap Res Gene PCR (Not Detect) Point of Care Testing Glucose POC 203 Imaging Data Chest x-ray: Radiologist's Impression: [address] [address] XRay Report Signed Patient: Emani Leiva MR#: [id number] : 1950 Acct:[id number] Age/Sex: 71 / F Date of Service: 07/21/22 Loc: ED Accession Number: [id number] ?? Procedure: XR chest 1V Ordering Provider: Cynthia Kennedy D.O. PROCEDURE:? XR CHEST 1V ? INDICATIONS:? recheck central line and vent placement ? TECHNIQUE:? One view of the chest was acquired.? ? COMPARISON:? [facility], CR, XR CHEST 1V, 07/21/2022, 17:07. ? FINDINGS:? ? Right IJ central line distal tip terminates in the mid SVC.? The line is coiled in the right neck base.? Left PICC, enteric, and endotracheal tubes in appropriate position.? No pneumothorax. ? IMPRESSION:? ? Right IJ central line is coiled in the right neck base with distal tip in the SVC. ? Appropriate position of enteric and endotracheal tubes and left PICC. ? ? Dictated by: Jason Castle M.D. on 07/21/2022 at 18:23 ? ? Approved by: Jason Castle M.D. on 07/21/2022 at 18:24?? CT scan - head: Radiologist's Impression: Close Chest X-Ray (Signed) Jason Castle - 07/21/22 Chest X-Ray (Signed) Jason Castle - 07/21/22 Chest X-Ray (Signed) Darwin Long - 07/21/[address] (Signed) Jason Castle - 07/21/22 Chest X-Ray (Signed) Jaosn Castle - 07/21/[address] (Signed) Jason Castle - 07/21/22 Shoulder X-Ray (Signed) MoreiraFestus - 07/14/22 Shoulder X-Ray (Signed) Moreira,Festus - 07/11/22 Elbow X-Ray (Signed) Moreira,Festus - 07/11/22 EKG Rpt. 07/11/22 Ribs X-Ray (Signed) Alex Causey - 07/11/22 Clavicle X-Ray (Signed) Alex Causey - 07/11/[address] (Signed) Call,Heath - 06/21/22 Shoulder X-Ray (Signed) Call,Heath - 06/21/[address] (Signed) Anthony Jordan - 05/25/22 Ribs X-Ray (Signed) Jon Braxton - 05/25/22 Telemetry Strips 05/25/22 Chest X-Ray (Signed) Jon Braxton - 05/16/22 Bone Densitometry 05/01/22 DEXA Result 05/01/22 Chest X-Ray (Signed) Jon Braxton - 03/29/22 Chest/Abdomen/Pelvis CT (Signed) Alex Valdes - 03/28/22 Telemetry Strips 03/28/[address] (Signed) Tristen Katz - 03/28/22 Chest X-Ray (Signed) Call,Heath - 03/28/22 Telemetry Strips 03/28/[address] (Signed) Darwin Long - 02/09/[address] (Signed) MyersCeasar galdamez - 02/09/[address] (Signed) MyersCeasar galdamez - 02/09/[address] (Signed) Myers,Ceasar - 02/09/[address] (Signed) Tawny Weaver - 02/09/22 Hip X-Ray (Signed) Tawny Weaver - 02/09/22 Ankle X-Ray (Signed) Tawny Weaver - 02/09/22 Telemetry Strips 04/15/21 Chest X-Ray (Signed) Idalia Guerrero - 04/14/21 Humerus X-Ray (Signed) Idalia Guerrero - 04/05/21 Telemetry Strips 03/30/[address] (Signed) Nikia Nolasco - 03/30/21 Chest X-Ray (Signed) Heath Scales - 03/30/[address] (Signed) Nikia Nolasco - 03/30/21 EKG Rpt. 01/30/21 EKG Rpt. 11/13/20 Lumbar Spine MRI (Signed) NolascoNikia - 11/12/20 Abdomen/Pelvis CT (Signed) NolascoNikia - 11/12/20 EKG Rpt. 11/12/20 Lumbar Spine MRI (Signed) Jason Castle - 11/04/20 Thoracic Spine MRI (Signed) Jason Castle - 11/04/20 CT Scanning Biopsy/Drainage (Signed) NeelamOri - 11/01/20 Chest X-Ray (Signed) David Landers - 10/30/[address] (Signed) David Landers - 10/30/20 Abdomen/Pelvis CT (Signed) David Landers - 10/30/20 Telemetry Strips 10/29/20 Chest X-Ray (Signed) David Landers - 10/29/20 Abdomen Ultrasound (Signed) David Landers - 10/29/20 Lumbar Spine MRI (Signed) David Landers - 10/07/[address] (Signed) Darwin Long - 10/07/20 Lumbar Spine MRI (Signed) Idalia Guerrero - 09/15/20 Telemetry Strips 05/20/20 Ankle X-Ray (Signed) Nikia Nolasco - 05/20/20 Lumbar Spine MRI (Signed) Idalia Guerrero - 04/22/20 Launch?[place] [address] CT Scan Report Signed Patient: Emani Leiva MR#: [id number] : 1950 Acct:[id number] Age/Sex: 71 / F Date of Service: 07/21/22 Loc: ED Accession Number: [id number] ?? Procedure: CT head/brain wo con Ordering Provider: Cynthia Kennedy D.O. PROCEDURE:? CT HEAD/BRAIN WO CON ? INDICATIONS:? altered ? TECHNIQUE:? Noncontrast 4.5 mm thick angled axial sections acquired from the foramen magnum to the vertex, with coronal and sagittal reformats.? For radiation dose reduction, the following was used:? automated exposure control, adjustment of mA and/or kV according to patient size.? ? COMPARISON:? None. ? FINDINGS:? Image quality:? Excellent.? ? CSF spaces:? Basal cisterns are patent.? No extra-axial fluid collections.? The ventricles are symmetric in size and shape.? ? Brain:? No intracranial bleeds or masses.? There is cerebral volume loss for age, with resultant ventricular and sulcal prominence.? There are periventricular and deep white matter chronic small vessel ischemic changes.? There is intracranial internal carotid artery atherosclerosis.? ? Skull and face:? Calvarium and visualized facial bones appear intact, without suspicious lesions.? ? Sinuses:? Visualized sinuses and mastoids are clear.? ? IMPRESSION:? No acute intracranial finding. ? ? Dictated by: Jason Castle M.D. on 07/21/2022 at 13:18 ? ? Approved by: Jason Castle M.D. on 07/21/2022 at 13:21?? CT - cervical spine: Radiologist's Impression: Close Chest X-Ray (Signed) Jason Castle - 07/21/22 Chest X-Ray (Signed) Jason Castle - 07/21/22 Chest X-Ray (Signed) Darwin Long - 07/21/[address] (Signed) Jason Castle - 07/21/22 Chest X-Ray (Signed) Jason Castle - 07/21/[address] (Signed) Jason Castle - 07/21/22 Shoulder X-Ray (Signed) MoreiraFestus - 07/14/22 Shoulder X-Ray (Signed) MoreiraFestus - 07/11/22 Elbow X-Ray (Signed) Moreira,Festus - 07/11/22 EKG Rpt. 07/11/22 Ribs X-Ray (Signed) Alex Causey - 07/11/22 Clavicle X-Ray (Signed) Alex Causey - 07/11/[address] (Signed) Heath Scales - 06/21/22 Shoulder X-Ray (Signed) Call,Heath - 06/21/[address] (Signed) Anthony Jordan - 05/25/22 Ribs X-Ray (Signed) Jon Braxton - 05/25/22 Telemetry Strips 05/25/22 Chest X-Ray (Signed) Jon Braxton - 05/16/22 Bone Densitometry 05/01/22 DEXA Result 05/01/22 Chest X-Ray (Signed) FoxJon - 03/29/22 Chest/Abdomen/Pelvis CT (Signed) ValdesAlex noriega - 03/28/22 Telemetry Strips 03/28/[address] (Signed) Tristen Katz - 03/28/22 Chest X-Ray (Signed) Call,Heath - 03/28/22 Telemetry Strips 03/28/[address] (Signed) Darwin Long - 02/09/[address] (Signed) Ceasar Myers - 02/09/[address] (Signed) Ceasar Myers - 02/09/[address] (Signed) Ceasar Myers - 02/09/[address] (Signed) Tawny Weaver - 02/09/22 Hip X-Ray (Signed) Tawny Weaver - 02/09/22 Ankle X-Ray (Signed) Tawny Weaver - 02/09/22 Telemetry Strips 04/15/21 Chest X-Ray (Signed) Idalia Guerrero - 04/14/21 Humerus X-Ray (Signed) Idalia Guerrero - 04/05/21 Telemetry Strips 03/30/[address] (Signed) Nikia Nolasco - 03/30/21 Chest X-Ray (Signed) Call,Heath - 03/30/[address] (Signed) Nikia Nolasco - 03/30/21 EKG Rpt. 01/30/21 EKG Rpt. 11/13/20 Lumbar Spine MRI (Signed) Nikia Nolasco - 11/12/20 Abdomen/Pelvis CT (Signed) Nikia Nolasco - 11/12/20 EKG Rpt. 11/12/20 Lumbar Spine MRI (Signed) Jason Castle - 11/04/20 Thoracic Spine MRI (Signed) Jason Castle - 11/04/20 CT Scanning Biopsy/Drainage (Signed) Ori Richter - 11/01/20 Chest X-Ray (Signed) David Landers - 10/30/[address] (Signed) David Landers - 10/30/20 Abdomen/Pelvis CT (Signed) David Landers - 10/30/20 Telemetry Strips 10/29/20 Chest X-Ray (Signed) David Landers - 10/29/20 Abdomen Ultrasound (Signed) David Landers - 10/29/20 Lumbar Spine MRI (Signed) David Landers - 10/07/[address] (Signed) Odette Longe - 10/07/20 Lumbar Spine MRI (Signed) YolandaIdalia - 09/15/20 Telemetry Strips 05/20/20 Ankle X-Ray (Signed) Nikia Nolasco - 05/20/20 Lumbar Spine MRI (Signed) YolandaIdalia - 04/22/20 Launch?[place] [address] CT Scan Report Signed Patient: Emani Leiva MR#: [id number] : 1950 Acct:[id number] Age/Sex: 71 / F Date of Service: 07/21/22 Loc: ED Accession Number: [id number] ?? Procedure: CT cervical spine wo con Ordering Provider: Cynthia Kennedy D.O. PROCEDURE:? CT CERVICAL SPINE WO CON ? INDICATIONS:? altered ? TECHNIQUE:? Noncontrast 3 mm thick sections acquired from the skull base to the T4 level.? Sagittal and coronal reformats were then constructed.? For radiation dose reduction, the following was used:? automated exposure control, adjustment of mA and/or kV according to patient size.? ? COMPARISON:? [facility], CT, CT CERVICAL SPINE WO CON, 02/09/2022, 18:17. ? FINDINGS:? No fracture or dislocation.? Unchanged anterolisthesis of C2 on C3.? Degenerative straightening of the usual cervical lordosis is similar.? Multilevel multifactorial spondylitic and spondylo arthropathic changes are similar.? No acute finding in the lung apices. ? IMPRESSION:? No acute finding. ? Dictated by: Jason Castle M.D. on 07/21/2022 at 13:12 ? ? Approved by: Jason Castle M.D. on 07/21/2022 at 13:18?? ECG Data Attestation: I personally reviewed and interpreted this ECG as follows: Interpretation: Sinus rhythm, rate 89 CT 192 QRS 88 QTC of 459. Patient has some motion artifact noted. No acute ST elevation or depression appreciated from EKG as available. EKG 2. Sinus tachycardia rate of 120 6p are 148 QRS is 74 [address] acute [address] elevation depression noted. MDM Narrative Medical decision making narrative: This is a 71-year-old female who arrives obtunded with glucose in the field a 40 that was given dextrose upon arrival in the rig as the medics were told they could not give dextrose through the PICC by their MPD. Patient's glucose improved, she has an abrasion on her head and reportedly was found on the floor by her and had a reported short down time. Head CT is negative C-spine does not show clear acute change, initial chest x-ray does not show fracture. Patient has spontaneous eye opening but is clearly obtunded. Initially patient was protecting airway, later she was not and was intubated for airway protection, appears to have a Tylenol overdose anion gap is 3rd with a CO2 less than 5, Tylenol level 274 which is trending down words 09/20/2054 but still quite elevated with an acute kidney injury baseline chronic kidney disease at 1.2 and is 3.6 initially today. Patient does have a white count, anemia which does not show significantly changed from priors. Lipase is elevated 5000 range, LFTs have elevation but bilirubin is negative so far, ammonia is 200 level. Patient time course of Tylenol ingestion is unknown high dose snack was initiated after initial Tylenol was found but she also ultimately had central line placed as had dropping pressures requiring pressors, as well as additional access for her neck, fentanyl Versed for sedation, nor epi for her hypotension and also received lactulose for her elevated ammonia which seems to be effective in terms of having stool output. Patient's hemoglobin has been 6.7 pre and post intubation with improvement of her PaO2 but otherwise minimal change appears to be a metabolic acidosis that patient is attempting to respiratory compensate. Spoke with poison control several times, spoke with the autism specialist who agrees with current plan. They had also recommend for omeprazole we had to have this obtained a stat over from an outside facility and was given initial 15 jackie per kg dose if were unable to transfer for potential dialysis for Tylenol they recommend going to giving the 2nd dose of 10 makes per kg at 12:00 p.m. poison control autism specialist agrees with current plan in terms of pressors, medications they recommend repeat labs at 4-6 hours, can repeat Tylenol tomorrow morning to see if we should continue neck and supportive measures. I also spoke with the patient's son he is the decision maker, he is not coming today but is aware patient could code and today. Patient signed out to Dr. Koo while attempting to find facility to transfer for hemodiaylsis for tylenol overdose. We have called all facilities regionally and have been unsuccessful in finding placement. Patient has had 3L of NS and LR total with 50mL out. GERARD Patient signed out to me by Dr. Kennedy if seen evaluated patient myself. Currently intubated on vasopressors concern for digital Tylenol overdose severe acidosis and unresponsiveness. The patient is found have an elevated Tylenol level of 274 which is decreasing currently on high-dose NAC. She surprisingly does have fairly normal liver enzymes id normal INR. Profound acidosis with a pH of 6.78 unable to have a stat osmolality which is a send out she is treated with omeprazole concern for other ingestions such as ethylene glycol Ethilon glycol and other things to cause significant anion gap. Her lactic acid is 3 which is also seeming to be improving. Rest of her drug screen is essentially negative she has benzodiazepines in her UDS only. 1999-I spoke with _ tele ICU order manager who agrees is to help provide some advice. He is up down patient's symptoms. At this time she recommend increasing the respiratory rate to about 28 to help with the acidosis. Recommend stopping the Versed switching over to propofol fall Levophed, continue to monitor urine output very closely may need bicarb drip if pH does not increase to greater than 7, recommends adding antibiotics for possible infection agrees with Edilia also agrees with continuing to try and transfer will possibly need dialysis possible hepatology. 8:30 p.m. spoke with power distributor at [facility]. Updated patient's symptoms test results. Concern for Tylenol overdose however his slightly abnormal because liver enzymes bilirubin hand INR is not significantly elevated. I recommend looking for other source continue his neck at this time no need for any emergent a liver transplant. May still need dialysis. Consider transferring. But no need for emergent transfer at this time. 2129 Dr. Carroll-in his service make [facility] updated on patient's symptoms test results. At this time agrees with hepatology unlikely to be acute Tylenol overdose without significant elevation in liver enzymes is. PH is 7.1 no need for bicarb at this time. Does state that if does not start urinating will probably need dialysis. At this time states continue to look for transfer for ICU in hemodialysis accessibility however does not necessarily need liver transplant. Probable other ingestion as well. Also agrees with omeprazole. Patient pH is stable at 7.1. He she is given Zosyn empirically for infection. She is transferred over to propofol drip Versed has been taken off. She is urinating she remains on Levophed. Sickle bed shortage there is no beds. Patient was given 1 dose of omeprazole which was obtained from a neighboring hospital. They are unable to give us any more. We do not have any. She would be due for a 2nd dose at 5:00 a.m.. 0640-patient blood pressure has begun to drop. We Levophed maxed out, vasopressin added. Morning blood work continue patient's show acidosis on ABG lactic acid remains normal. Liver enzymes bilirubin also within normal range. Tylenol level is decreased clearly she is not clearing. I urine output is decreasing. She is not making 1 mL/hours. Creatinine is rising. Concern for co ingestion. Tylenol does not seem to be the primary source. Although still treating with Mucomyst. I have called to [facility] kindly giving us a bottle of fomepizole. I have spoken with poison Control who is agrees to continue with Tylenol treatment along with other treatment. Patient's sedation was shot off completely she actually did open her eyes but is very minimally responsive patient would benefit from CT scan of chest abdomen pelvis to look for anything else however she is not currently stable to go to CT. Patient's blood pressure dropped to 42, given 1 amp of bicarb and half amp dextrose Son called, left message. Mank 07/22/22: Patient signed back out to myself. Overnight no epi was increased vasopressin was added, sedation was weaned patient opens eyes but continues to appear to be obtunded is not pulling at lines or bucking the vent she is breathing over the vent. Patient was started on Zosyn she has popped positive for blood cultures with Klebsiella and has Enterobacter positive on PCR, continued bicarb patient became quite hypotensive overnight. Second dose of omeprazole was obtained from outside facility. Toxicology was reconsulted there is concern about other source and that Tylenol overdose may not be a true overdose versus polysubstance versus other. Patient does appear to be covered appropriately for bacteremia, spoke with tell order manager today recommends transfer which we are attempting to get there is no availability although she is very appropriate for transfer. Patient has had almost 5 L of fluids since coming in, she is had about 125 out and is in uric since yesterday. She is likely to become fluid overload and become increasingly difficult to oxygenate. Recommended continuing with a bar carb drip, Solu-Cortef 300 mg stress dose followed by 100 mg t.i.d. agrees with goal to get a CT of available but patient appears too unstable at this time and recommends either transfer some place with dialysis or comfort measures. I completely agree with their assessment. Patient appears to have be touching go, she is had significant fluids and essentially aneuric. Patient has been up and down with pressure sometimes dropping as low as 60s over 40s but seems to improve with pressors. Has had occasional fluid bolus, continue with bicarb drip, patient has given short doses of fentanyl for sedation needs. Patient D-dimer is quite elevated, she is had using persistently from her central line site so did not start heparin but concern for emboli is present. SCDs were placed. Patient is being treated for septic shock, discussion about if there was a possible choledocholithiasis or similar possible cause we have been unable to get her to imaging she has not been stable enough but if she requires intervention we do not have abilities for ERCP, her troponin is trending upwards and she is still potentially needs dialysis none of which we have available. Spoke with Dr. Pizarro at [facility], Report Manager who kindly accepts patient for transfer. <Melisa Koo, DO - Last Filed: 07/22/22 18:16> Lab Data Labs: Lab Results 07/21/22 07/21/22 07/21/22 Range/Units 12:36 12:36 12:36 WBC 23.8 H (4.5-11.0) X10^3/uL RBC 2.79 L (4.0-5.2) X10^6/uL Hgb 10.6 L (12.0-16.0) g/dL Hct 33.1 L (36-46) % MCV 118.4 H D (80-100) fL MCH 37.9 H (26-34) PG MCHC 32.0 (30-36) % RDW 19.2 H (11.6-14.8) % Plt Count 453 H (150-400) X10^3/uL Neut % (Auto) 92.4 H (50-75) % Lymph % (Auto) 4.4 L (25-40) % Gillespie % (Auto) 2.7 L (3-14) % Eos % (Auto) 0.1 L (2-4) % Baso % (Auto) 0.4 (0-2) % Neut # (Auto) 96152 H (2117-8092) /uL Lymph # (Auto) 1000 L (1794-0957) /uL Gillespie # (Auto) 600 (0-900) /uL Eos # (Auto) 0 (0-450) /uL Baso # (Auto) 100 (0-100) /uL Total Counted Seg Neutrophils % (38-70) % Band Neutrophils % (3-7) % Lymphocytes % (Manual) (25-45) % Monocytes % (Manual) (2-11) % Neutrophils # (Manual) (1826-9958) /uL Nucleated RBCs Hypersegmented Neuts Hypogranular Neuts Reactive Lymphocytes Smudge Cells Other Cell Type Toxic Granulation Toxic Vacuolation Dohle Bodies Rafaela Rods WBC Morphology Comment Platelet Estimate Clumped Platelets Plt Morphology Comment RBC Morphology See below Dimorphic RBCs Polychromasia Hypochromasia Poikilocytosis Basophilic Stippling Anisocytosis 2+ H Microcytosis Macrocytosis 3+ H Spherocytes Pappenheimer Bodies Sickle Cells Target Cells Tear Drop Cells Ovalocytes Stomatocytes Helmet Cells [place] Bodies [place] Rings [place] Cells 2+ H Acanthocytes (Spur) 1+ H Rouleaux Schistocytes PT 12.7 (10.1-12.7) SECONDS INR 1.1 (0.9-1.3) APTT 42 H (26-36) SECONDS D-Dimer (<500) ng/ml ABG pH (7.35-7.45) ABG pCO2 (35-45) mmHg ABG pO2 (80-100) mmHg ABG HCO3 (22-26) mmol/L ABG Total CO2 (21-31) mmol/L ABG O2 Saturation (95-100) % ABG Base Excess (-2-2) mmol/L FiO2 Sodium 137 (137-145) mmol/L Potassium 4.7 (3.4-5.1) mmol/L Chloride 101 (98-107) mmol/L Carbon Dioxide < 5 L* (22-32) mmol/L BUN 65 H (7-17) mg/dL Creatinine 3.61 H (0.52-1.04) mg/dL Estimated GFR 13 L (>60) mL/min BUN/Creatinine Ratio 18.0 (6-22) Glucose 302 H D (80-110) mg/dL Lactate (0.7-2.1) mmol/L Calcium 8.7 (8.4-10.2) mg/dL Total Bilirubin 1.2 (0.2-1.3) mg/dL AST 50 H (14-36) IU/L ALT 28 (<35) IU/L Alkaline Phosphatase 316 H D (38-126) U/L Ammonia (9-30) umol/L Total Creatine Kinase 145 H (30-135) U/L CK-MB (CK-2) 4.38 H (<2.37) ng/mL CK-MB (CK-2) Rel Index 3.0 (1.5-5.0) % Troponin I 0.109 H (0.01-0.034) ng/mL Total Protein 7.3 (6.3-8.2) g/dL Albumin 3.9 (3.5-5.0) g/dL Globulin 3.4 (1.7-4.1) g/dL Albumin/Globulin Ratio 1.1 (1.0-2.8) Lipase (23-300) U/L Procalcitonin (<0.5) ng/mL TSH (0.47-4.68) uIU/mL Prolactin 23.8 H (3.0-18.6) ng/mL Urine Color Urine Appearance Urine pH (4.5-8.0) Ur Specific [place] (1.000-1.035) Urine Protein (Negative) Urine Glucose (UA) (Negative) g/dL Urine Ketones (NEGATIVE) Urine Occult Blood (Negative) Urine Nitrate (Negative) Urine Bilirubin (NEGATIVE) Urine Urobilinogen (0.2) E.U./dL Ur Leukocyte Esterase (NEGATIVE) Urine RBC (0-5/HPF) Urine WBC (0-5/HPF) Ur Squamous Epith Cells (0-5/HPF) Ur Transition Epith Cell (0-5/HPF) Urine Bacteria (None) Salicylates 1.1 (<20) mg/dL U Opiates 300ng/mL cut (Negative) Ur Oxycodone Screen (Negative) Urine Methadone Screen (Negative) Acetaminophen 274 H* (10-30) ug/mL Ur Barbiturates Screen (Negative) U Tricyclic Antidepress (Negative) Ur Phencyclidine Scrn (Negative) Ur Amphetamines Screen (Negative) U Methamphetamines Scrn (Negative) Ur MDMA Scrn (Ecstasy) (Negative) U Benzodiazepines Scrn (Negative) Urine Cocaine Screen (Negative) U Marijuana (THC) Screen (Negative) Ethyl Alcohol < 10 ( - 10) mg/dL A. baumannii (PCR) (Not Detect) Aura albicans (PCR) (Not Detect) C. glabrata (PCR) (Not Detect) C. krusei (PCR) (Not Detect) C. parapsilosis (PCR) (Not Detect) C. tropicalis (PCR) (Not Detect) SARS-CoV-2 (PCR) (Negative) Enterobacteriac sp PCR (Not Detect) E. cloacae complex PCR (Not Detect) Enterococcus sp PCR (Not Detect) E. coli (PCR) (Not Detect) H. influenzae (PCR) (Not Detect) Klebsiella oxytoca PCR (Not Detect) Klebsiella pneumoniae (Not Detect) List. monocytogenes PCR (Not Detect) N. meningitidis (PCR) (Not Detect) Proteus species (PCR) (Not Detect) Serratia marcescens PCR (Not Detect) Staphylococcus sp PCR (Not Detect) Staph aureus (PCR) (Not Detect) mecA-Methicil Res Gene Streptococcus sp PCR (Not Detect) Group A Strep (PCR) (Not Detect) Strep agalactiae (PCR) (Not Detect) Strep pneumoniae (PCR) (Not Detect) P. aeruginosa (PCR) (Not Detect) Jet/B-Vanco Res Genes KPC-Carbap Res Gene PCR (Not Detect) 07/21/22 07/21/22 07/21/22 Range/Units 12:36 12:36 12:36 WBC (4.5-11.0) X10^3/uL RBC (4.0-5.2) X10^6/uL Hgb (12.0-16.0) g/dL Hct (36-46) % MCV (80-100) fL MCH (26-34) PG MCHC (30-36) % RDW (11.6-14.8) % Plt Count (150-400) X10^3/uL Neut % (Auto) (50-75) % Lymph % (Auto) (25-40) % Gillespie % (Auto) (3-14) % Eos % (Auto) (2-4) % Baso % (Auto) (0-2) % Neut # (Auto) (2229-3485) /uL Lymph # (Auto) (6735-4895) /uL Gillespie # (Auto) (0-900) /uL Eos # (Auto) (0-450) /uL Baso # (Auto) (0-100) /uL Total Counted Seg Neutrophils % (38-70) % Band Neutrophils % (3-7) % Lymphocytes % (Manual) (25-45) % Monocytes % (Manual) (2-11) % Neutrophils # (Manual) (3327-6905) /uL Nucleated RBCs Hypersegmented Neuts Hypogranular Neuts Reactive Lymphocytes Smudge Cells Other Cell Type Toxic Granulation Toxic Vacuolation Dohle Bodies Rafaela Rods WBC Morphology Comment Platelet Estimate Clumped Platelets Plt Morphology Comment RBC Morphology Dimorphic RBCs Polychromasia Hypochromasia Poikilocytosis Basophilic Stippling Anisocytosis Microcytosis Macrocytosis Spherocytes Pappenheimer Bodies Sickle Cells Target Cells Tear Drop Cells Ovalocytes Stomatocytes Helmet Cells [place] Bodies [place] Rings [place] Cells Acanthocytes (Spur) Rouleaux Schistocytes PT (10.1-12.7) SECONDS INR (0.9-1.3) APTT (26-36) SECONDS D-Dimer (<500) ng/ml ABG pH (7.35-7.45) ABG pCO2 (35-45) mmHg ABG pO2 (80-100) mmHg ABG HCO3 (22-26) mmol/L ABG Total CO2 (21-31) mmol/L ABG O2 Saturation (95-100) % ABG Base Excess (-2-2) mmol/L FiO2 Sodium (137-145) mmol/L Potassium (3.4-5.1) mmol/L Chloride (98-107) mmol/L Carbon Dioxide (22-32) mmol/L BUN (7-17) mg/dL Creatinine (0.52-1.04) mg/dL Estimated GFR (>60) mL/min BUN/Creatinine Ratio (6-22) Glucose (80-110) mg/dL Lactate 3.3 H (0.7-2.1) mmol/L Calcium (8.4-10.2) mg/dL Total Bilirubin (0.2-1.3) mg/dL AST (14-36) IU/L ALT (<35) IU/L Alkaline Phosphatase (38-126) U/L Ammonia 219 H (9-30) umol/L Total Creatine Kinase (30-135) U/L CK-MB (CK-2) (<2.37) ng/mL CK-MB (CK-2) Rel Index (1.5-5.0) % Troponin I (0.01-0.034) ng/mL Total Protein (6.3-8.2) g/dL Albumin (3.5-5.0) g/dL Globulin (1.7-4.1) g/dL Albumin/Globulin Ratio (1.0-2.8) Lipase (23-300) U/L Procalcitonin (<0.5) ng/mL TSH 1.04 (0.47-4.68) uIU/mL Prolactin (3.0-18.6) ng/mL Urine Color Urine Appearance Urine pH (4.5-8.0) Ur Specific [place] (1.000-1.035) Urine Protein (Negative) Urine Glucose (UA) (Negative) g/dL Urine Ketones (NEGATIVE) Urine Occult Blood (Negative) Urine Nitrate (Negative) Urine Bilirubin (NEGATIVE) Urine Urobilinogen (0.2) E.U./dL Ur Leukocyte Esterase (NEGATIVE) Urine RBC (0-5/HPF) Urine WBC (0-5/HPF) Ur Squamous Epith Cells (0-5/HPF) Ur Transition Epith Cell (0-5/HPF) Urine Bacteria (None) Salicylates (<20) mg/dL U Opiates 300ng/mL cut (Negative) Ur Oxycodone Screen (Negative) Urine Methadone Screen (Negative) Acetaminophen (10-30) ug/mL Ur Barbiturates Screen (Negative) U Tricyclic Antidepress (Negative) Ur Phencyclidine Scrn (Negative) Ur Amphetamines Screen (Negative) U Methamphetamines Scrn (Negative) Ur MDMA Scrn (Ecstasy) (Negative) U Benzodiazepines Scrn (Negative) Urine Cocaine Screen (Negative) U Marijuana (THC) Screen (Negative) Ethyl Alcohol ( - 10) mg/dL A. baumannii (PCR) (Not Detect) Aura albicans (PCR) (Not Detect) C. glabrata (PCR) (Not Detect) C. krusei (PCR) (Not Detect) C. parapsilosis (PCR) (Not Detect) C. tropicalis (PCR) (Not Detect) SARS-CoV-2 (PCR) (Negative) Enterobacteriac sp PCR (Not Detect) E. cloacae complex PCR (Not Detect) Enterococcus sp PCR (Not Detect) E. coli (PCR) (Not Detect) H. influenzae (PCR) (Not Detect) Klebsiella oxytoca PCR (Not Detect) Klebsiella pneumoniae (Not Detect) List. monocytogenes PCR (Not Detect) N. meningitidis (PCR) (Not Detect) Proteus species (PCR) (Not Detect) Serratia marcescens PCR (Not Detect) Staphylococcus sp PCR (Not Detect) Staph aureus (PCR) (Not Detect) mecA-Methicil Res Gene Streptococcus sp PCR (Not Detect) Group A Strep (PCR) (Not Detect) Strep agalactiae (PCR) (Not Detect) Strep pneumoniae (PCR) (Not Detect) P. aeruginosa (PCR) (Not Detect) Jet/B-Vanco Res Genes KPC-Carbap Res Gene PCR (Not Detect) 07/21/22 07/21/22 07/21/22 Range/Units 12:36 13:23 13:48 WBC (4.5-11.0) X10^3/uL RBC (4.0-5.2) X10^6/uL Hgb (12.0-16.0) g/dL Hct (36-46) % MCV (80-100) fL MCH (26-34) PG MCHC (30-36) % RDW (11.6-14.8) % Plt Count (150-400) X10^3/uL Neut % (Auto) (50-75) % Lymph % (Auto) (25-40) % Gillespie % (Auto) (3-14) % Eos % (Auto) (2-4) % Baso % (Auto) (0-2) % Neut # (Auto) (4457-9407) /uL Lymph # (Auto) (8780-4594) /uL Gillespie # (Auto) (0-900) /uL Eos # (Auto) (0-450) /uL Baso # (Auto) (0-100) /uL Total Counted Seg Neutrophils % (38-70) % Band Neutrophils % (3-7) % Lymphocytes % (Manual) (25-45) % Monocytes % (Manual) (2-11) % Neutrophils # (Manual) (9188-2222) /uL Nucleated RBCs Hypersegmented Neuts Hypogranular Neuts Reactive Lymphocytes Smudge Cells Other Cell Type Toxic Granulation Toxic Vacuolation Dohle Bodies Rafaela Rods WBC Morphology Comment Platelet Estimate Clumped Platelets Plt Morphology Comment RBC Morphology Dimorphic RBCs Polychromasia Hypochromasia Poikilocytosis Basophilic Stippling Anisocytosis Microcytosis Macrocytosis Spherocytes Pappenheimer Bodies Sickle Cells Target Cells Tear Drop Cells Ovalocytes Stomatocytes Helmet Cells [place] Bodies [place] Rings [place] Cells Acanthocytes (Spur) Rouleaux Schistocytes PT (10.1-12.7) SECONDS INR (0.9-1.3) APTT (26-36) SECONDS D-Dimer (<500) ng/ml ABG pH 6.78 L* (7.35-7.45) ABG pCO2 13.1 L* (35-45) mmHg ABG pO2 58 L (80-100) mmHg ABG HCO3 2 L (22-26) mmol/L ABG Total CO2 < 5 L (21-31) mmol/L ABG O2 Saturation 61 L* (95-100) % ABG Base Excess < -30.0 L (-2-2) mmol/L FiO2 21 Sodium (137-145) mmol/L Potassium (3.4-5.1) mmol/L Chloride (98-107) mmol/L Carbon Dioxide (22-32) mmol/L BUN (7-17) mg/dL Creatinine (0.52-1.04) mg/dL Estimated GFR (>60) mL/min BUN/Creatinine Ratio (6-22) Glucose (80-110) mg/dL Lactate (0.7-2.1) mmol/L Calcium (8.4-10.2) mg/dL Total Bilirubin (0.2-1.3) mg/dL AST (14-36) IU/L ALT (<35) IU/L Alkaline Phosphatase (38-126) U/L Ammonia (9-30) umol/L Total Creatine Kinase (30-135) U/L CK-MB (CK-2) (<2.37) ng/mL CK-MB (CK-2) Rel Index (1.5-5.0) % Troponin I (0.01-0.034) ng/mL Total Protein (6.3-8.2) g/dL Albumin (3.5-5.0) g/dL Globulin (1.7-4.1) g/dL Albumin/Globulin Ratio (1.0-2.8) Lipase 5863 H (23-300) U/L Procalcitonin (<0.5) ng/mL TSH (0.47-4.68) uIU/mL Prolactin (3.0-18.6) ng/mL Urine Color Yellow Urine Appearance Cloudy Urine pH 5.0 (4.5-8.0) Ur Specific [place] 1.020 (1.000-1.035) Urine Protein 2+ H (Negative) Urine Glucose (UA) Trace H (Negative) g/dL Urine Ketones Negative (NEGATIVE) Urine Occult Blood 3+ H (Negative) Urine Nitrate Negative (Negative) Urine Bilirubin Negative (NEGATIVE) Urine Urobilinogen 0.2 (0.2) E.U./dL Ur Leukocyte Esterase 2+ H (NEGATIVE) Urine RBC 10-30/hpf H (0-5/HPF) Urine WBC >100/hpf H (0-5/HPF) Ur Squamous Epith Cells 0-1 /hpf D (0-5/HPF) Ur Transition Epith Cell 0-1/hpf (0-5/HPF) Urine Bacteria Many (>30) H (None) Salicylates (<20) mg/dL U Opiates 300ng/mL cut (Negative) Ur Oxycodone Screen (Negative) Urine Methadone Screen (Negative) Acetaminophen (10-30) ug/mL Ur Barbiturates Screen (Negative) U Tricyclic Antidepress (Negative) Ur Phencyclidine Scrn (Negative) Ur Amphetamines Screen (Negative) U Methamphetamines Scrn (Negative) Ur MDMA Scrn (Ecstasy) (Negative) U Benzodiazepines Scrn (Negative) Urine Cocaine Screen (Negative) U Marijuana (THC) Screen (Negative) Ethyl Alcohol ( - 10) mg/dL A. baumannii (PCR) (Not Detect) Aura albicans (PCR) (Not Detect) C. glabrata (PCR) (Not Detect) C. krusei (PCR) (Not Detect) C. parapsilosis (PCR) (Not Detect) C. tropicalis (PCR) (Not Detect) SARS-CoV-2 (PCR) (Negative) Enterobacteriac sp PCR (Not Detect) E. cloacae complex PCR (Not Detect) Enterococcus sp PCR (Not Detect) E. coli (PCR) (Not Detect) H. influenzae (PCR) (Not Detect) Klebsiella oxytoca PCR (Not Detect) Klebsiella pneumoniae (Not Detect) List. monocytogenes PCR (Not Detect) N. meningitidis (PCR) (Not Detect) Proteus species (PCR) (Not Detect) Serratia marcescens PCR (Not Detect) Staphylococcus sp PCR (Not Detect) Staph aureus (PCR) (Not Detect) mecA-Methicil Res Gene Streptococcus sp PCR (Not Detect) Group A Strep (PCR) (Not Detect) Strep agalactiae (PCR) (Not Detect) Strep pneumoniae (PCR) (Not Detect) P. aeruginosa (PCR) (Not Detect) Jet/B-Vanco Res Genes KPC-Carbap Res Gene PCR (Not Detect) 07/21/22 07/21/22 07/21/22 Range/Units 13:48 13:48 15:45 WBC (4.5-11.0) X10^3/uL RBC (4.0-5.2) X10^6/uL Hgb (12.0-16.0) g/dL Hct (36-46) % MCV (80-100) fL MCH (26-34) PG MCHC (30-36) % RDW (11.6-14.8) % Plt Count (150-400) X10^3/uL Neut % (Auto) (50-75) % Lymph % (Auto) (25-40) % Gillespie % (Auto) (3-14) % Eos % (Auto) (2-4) % Baso % (Auto) (0-2) % Neut # (Auto) (8075-8648) /uL Lymph # (Auto) (4267-0282) /uL [place] # (Auto) (0-900) /uL Eos # (Auto) (0-450) /uL Baso # (Auto) (0-100) /uL Total Counted Seg Neutrophils % (38-70) % Band Neutrophils % (3-7) % Lymphocytes % (Manual) (25-45) % Monocytes % (Manual) (2-11) % Neutrophils # (Manual) (5890-9433) /uL Nucleated RBCs Hypersegmented Neuts Hypogranular Neuts Reactive Lymphocytes Smudge Cells Other Cell Type Toxic Granulation Toxic Vacuolation Dohle Bodies Rafaela Rods WBC Morphology Comment Platelet Estimate Clumped Platelets Plt Morphology Comment RBC Morphology Dimorphic RBCs Polychromasia Hypochromasia Poikilocytosis Basophilic Stippling Anisocytosis Microcytosis Macrocytosis Spherocytes Pappenheimer Bodies Sickle Cells Target Cells Tear Drop Cells Ovalocytes Stomatocytes Helmet Cells [place] Bodies [place] Rings [place] Cells Acanthocytes (Spur) Rouleaux Schistocytes PT (10.1-12.7) SECONDS INR (0.9-1.3) APTT (26-36) SECONDS D-Dimer (<500) ng/ml ABG pH 6.78 L* (7.35-7.45) ABG pCO2 17.0 L* (35-45) mmHg ABG pO2 180 H (80-100) mmHg ABG HCO3 3 L (22-26) mmol/L ABG Total CO2 < 5 L (21-31) mmol/L ABG O2 Saturation 98 (95-100) % ABG Base Excess < -30.0 L (-2-2) mmol/L FiO2 30 Sodium (137-145) mmol/L Potassium (3.4-5.1) mmol/L Chloride (98-107) mmol/L Carbon Dioxide (22-32) mmol/L BUN (7-17) mg/dL Creatinine (0.52-1.04) mg/dL Estimated GFR (>60) mL/min BUN/Creatinine Ratio (6-22) Glucose (80-110) mg/dL Lactate (0.7-2.1) mmol/L Calcium (8.4-10.2) mg/dL Total Bilirubin (0.2-1.3) mg/dL AST (14-36) IU/L ALT (<35) IU/L Alkaline Phosphatase (38-126) U/L Ammonia (9-30) umol/L Total Creatine Kinase (30-135) U/L CK-MB (CK-2) (<2.37) ng/mL CK-MB (CK-2) Rel Index (1.5-5.0) % Troponin I (0.01-0.034) ng/mL Total Protein (6.3-8.2) g/dL Albumin (3.5-5.0) g/dL Globulin (1.7-4.1) g/dL Albumin/Globulin Ratio (1.0-2.8) Lipase (23-300) U/L Procalcitonin (<0.5) ng/mL TSH (0.47-4.68) uIU/mL Prolactin (3.0-18.6) ng/mL Urine Color Urine Appearance Urine pH (4.5-8.0) Ur Specific [place] (1.000-1.035) Urine Protein (Negative) Urine Glucose (UA) (Negative) g/dL Urine Ketones (NEGATIVE) Urine Occult Blood (Negative) Urine Nitrate (Negative) Urine Bilirubin (NEGATIVE) Urine Urobilinogen (0.2) E.U./dL Ur Leukocyte Esterase (NEGATIVE) Urine RBC (0-5/HPF) Urine WBC (0-5/HPF) Ur Squamous Epith Cells (0-5/HPF) Ur Transition Epith Cell (0-5/HPF) Urine Bacteria (None) Salicylates (<20) mg/dL U Opiates 300ng/mL cut Negative (Negative) Ur Oxycodone Screen Negative (Negative) Urine Methadone Screen Negative (Negative) Acetaminophen (10-30) ug/mL Ur Barbiturates Screen Negative (Negative) U Tricyclic Antidepress Negative (Negative) Ur Phencyclidine Scrn Negative (Negative) Ur Amphetamines Screen Negative (Negative) U Methamphetamines Scrn Negative (Negative) Ur MDMA Scrn (Ecstasy) Negative (Negative) U Benzodiazepines Scrn Positive H (Negative) Urine Cocaine Screen Negative (Negative) U Marijuana (THC) Screen Negative (Negative) Ethyl Alcohol ( - 10) mg/dL A. baumannii (PCR) (Not Detect) Aura albicans (PCR) (Not Detect) C. glabrata (PCR) (Not Detect) C. krusei (PCR) (Not Detect) C. parapsilosis (PCR) (Not Detect) C. tropicalis (PCR) (Not Detect) SARS-CoV-2 (PCR) Negative (Negative) Enterobacteriac sp PCR (Not Detect) E. cloacae complex PCR (Not Detect) Enterococcus sp PCR (Not Detect) E. coli (PCR) (Not Detect) H. influenzae (PCR) (Not Detect) Klebsiella oxytoca PCR (Not Detect) Klebsiella pneumoniae (Not Detect) List. monocytogenes PCR (Not Detect) N. meningitidis (PCR) (Not Detect) Proteus species (PCR) (Not Detect) Serratia marcescens PCR (Not Detect) Staphylococcus sp PCR (Not Detect) Staph aureus (PCR) (Not Detect) mecA-Methicil Res Gene Streptococcus sp PCR (Not Detect) Group A Strep (PCR) (Not Detect) Strep agalactiae (PCR) (Not Detect) Strep pneumoniae (PCR) (Not Detect) P. aeruginosa (PCR) (Not Detect) Jet/B-Vanco Res Genes KPC-Carbap Res Gene PCR (Not Detect) 07/21/22 07/21/22 07/21/22 Range/Units 17:48 17:48 17:48 WBC 16.8 H (4.5-11.0) X10^3/uL RBC 2.34 L (4.0-5.2) X10^6/uL Hgb 8.7 L (12.0-16.0) g/dL Hct 26.5 L (36-46) % MCV 113.5 H D (80-100) fL MCH 37.3 H (26-34) PG MCHC 32.8 (30-36) % RDW 19.2 H (11.6-14.8) % Plt Count 333 (150-400) X10^3/uL Neut % (Auto) 94.7 H (50-75) % Lymph % (Auto) 3.8 L (25-40) % [place] % (Auto) 1.2 L (3-14) % Eos % (Auto) 0.0 L (2-4) % Baso % (Auto) 0.3 (0-2) % Neut # (Auto) 56235 H (4706-6544) /uL Lymph # (Auto) 600 L (0376-4816) /uL [place] # (Auto) 200 (0-900) /uL Eos # (Auto) 0 (0-450) /uL Baso # (Auto) 0 (0-100) /uL Total Counted Seg Neutrophils % (38-70) % Band Neutrophils % (3-7) % Lymphocytes % (Manual) (25-45) % Monocytes % (Manual) (2-11) % Neutrophils # (Manual) (5930-5392) /uL Nucleated RBCs Cancelled Hypersegmented Neuts Cancelled Hypogranular Neuts Cancelled Reactive Lymphocytes Cancelled Smudge Cells Cancelled Other Cell Type Cancelled Toxic Granulation Cancelled Toxic Vacuolation Cancelled Dohle Bodies Cancelled Rafaela Rods Cancelled WBC Morphology Comment Cancelled Platelet Estimate Cancelled Clumped Platelets Cancelled Plt Morphology Comment Cancelled RBC Morphology Cancelled Dimorphic RBCs Cancelled Polychromasia Cancelled Hypochromasia Cancelled Poikilocytosis Cancelled Basophilic Stippling Cancelled Anisocytosis Cancelled Microcytosis Cancelled Macrocytosis Cancelled Spherocytes Cancelled Pappenheimer Bodies Cancelled Sickle Cells Cancelled Target Cells Cancelled Tear Drop Cells Cancelled Ovalocytes Cancelled Stomatocytes Cancelled Helmet Cells Cancelled [place] Bodies Cancelled [place] Rings Cancelled Jennings Cells Cancelled Acanthocytes (Spur) Cancelled Rouleaux Cancelled Schistocytes Cancelled PT (10.1-12.7) SECONDS INR (0.9-1.3) APTT 35 D (26-36) SECONDS D-Dimer (<500) ng/ml ABG pH (7.35-7.45) ABG pCO2 (35-45) mmHg ABG pO2 (80-100) mmHg ABG HCO3 (22-26) mmol/L ABG Total CO2 (21-31) mmol/L ABG O2 Saturation (95-100) % ABG Base Excess (-2-2) mmol/L FiO2 Sodium (137-145) mmol/L Potassium (3.4-5.1) mmol/L Chloride (98-107) mmol/L Carbon Dioxide (22-32) mmol/L BUN (7-17) mg/dL Creatinine (0.52-1.04) mg/dL Estimated GFR (>60) mL/min BUN/Creatinine Ratio (6-22) Glucose (80-110) mg/dL Lactate 2.0 (0.7-2.1) mmol/L Calcium (8.4-10.2) mg/dL Total Bilirubin (0.2-1.3) mg/dL AST (14-36) IU/L ALT (<35) IU/L Alkaline Phosphatase (38-126) U/L Ammonia (9-30) umol/L Total Creatine Kinase (30-135) U/L CK-MB (CK-2) (<2.37) ng/mL CK-MB (CK-2) Rel Index (1.5-5.0) % Troponin I (0.01-0.034) ng/mL Total Protein (6.3-8.2) g/dL Albumin (3.5-5.0) g/dL Globulin (1.7-4.1) g/dL Albumin/Globulin Ratio (1.0-2.8) Lipase (23-300) U/L Procalcitonin (<0.5) ng/mL TSH (0.47-4.68) uIU/mL Prolactin (3.0-18.6) ng/mL Urine Color Urine Appearance Urine pH (4.5-8.0) Ur Specific [place] (1.000-1.035) Urine Protein (Negative) Urine Glucose (UA) (Negative) g/dL Urine Ketones (NEGATIVE) Urine Occult Blood (Negative) Urine Nitrate (Negative) Urine Bilirubin (NEGATIVE) Urine Urobilinogen (0.2) E.U./dL Ur Leukocyte Esterase (NEGATIVE) Urine RBC (0-5/HPF) Urine WBC (0-5/HPF) Ur Squamous Epith Cells (0-5/HPF) Ur Transition Epith Cell (0-5/HPF) Urine Bacteria (None) Salicylates (<20) mg/dL U Opiates 300ng/mL cut (Negative) Ur Oxycodone Screen (Negative) Urine Methadone Screen (Negative) Acetaminophen (10-30) ug/mL Ur Barbiturates Screen (Negative) U Tricyclic Antidepress (Negative) Ur Phencyclidine Scrn (Negative) Ur Amphetamines Screen (Negative) U Methamphetamines Scrn (Negative) Ur MDMA Scrn (Ecstasy) (Negative) U Benzodiazepines Scrn (Negative) Urine Cocaine Screen (Negative) U Marijuana (THC) Screen (Negative) Ethyl Alcohol ( - 10) mg/dL A. baumannii (PCR) (Not Detect) Aura albicans (PCR) (Not Detect) C. glabrata (PCR) (Not Detect) C. krusei (PCR) (Not Detect) C. parapsilosis (PCR) (Not Detect) C. tropicalis (PCR) (Not Detect) SARS-CoV-2 (PCR) (Negative) Enterobacteriac sp PCR (Not Detect) E. cloacae complex PCR (Not Detect) Enterococcus sp PCR (Not Detect) E. coli (PCR) (Not Detect) H. influenzae (PCR) (Not Detect) Klebsiella oxytoca PCR (Not Detect) Klebsiella pneumoniae (Not Detect) List. monocytogenes PCR (Not Detect) N. meningitidis (PCR) (Not Detect) Proteus species (PCR) (Not Detect) Serratia marcescens PCR (Not Detect) Staphylococcus sp PCR (Not Detect) Staph aureus (PCR) (Not Detect) mecA-Methicil Res Gene Streptococcus sp PCR (Not Detect) Group A Strep (PCR) (Not Detect) Strep agalactiae (PCR) (Not Detect) Strep pneumoniae (PCR) (Not Detect) P. aeruginosa (PCR) (Not Detect) Jet/B-Vanco Res Genes KPC-Carbap Res Gene PCR (Not Detect) 07/21/22 07/21/22 07/21/22 Range/Units 17:48 17:48 17:48 WBC (4.5-11.0) X10^3/uL RBC (4.0-5.2) X10^6/uL Hgb (12.0-16.0) g/dL Hct (36-46) % MCV (80-100) fL MCH (26-34) PG MCHC (30-36) % RDW (11.6-14.8) % Plt Count (150-400) X10^3/uL Neut % (Auto) (50-75) % Lymph % (Auto) (25-40) % Gillespie % (Auto) (3-14) % Eos % (Auto) (2-4) % Baso % (Auto) (0-2) % Neut # (Auto) (5332-1688) /uL Lymph # (Auto) (3619-3177) /uL Gillespie # (Auto) (0-900) /uL Eos # (Auto) (0-450) /uL Baso # (Auto) (0-100) /uL Total Counted Seg Neutrophils % (38-70) % Band Neutrophils % (3-7) % Lymphocytes % (Manual) (25-45) % Monocytes % (Manual) (2-11) % Neutrophils # (Manual) (3937-6486) /uL Nucleated RBCs Hypersegmented Neuts Hypogranular Neuts Reactive Lymphocytes Smudge Cells Other Cell Type Toxic Granulation Toxic Vacuolation Dohle Bodies Rafaela Rods WBC Morphology Comment Platelet Estimate Clumped Platelets Plt Morphology Comment RBC Morphology Dimorphic RBCs Polychromasia Hypochromasia Poikilocytosis Basophilic Stippling Anisocytosis Microcytosis Macrocytosis Spherocytes Pappenheimer Bodies Sickle Cells Target Cells Tear Drop Cells Ovalocytes Stomatocytes Helmet Cells [place] Bodies [place] Rings Jennings Cells Acanthocytes (Spur) Rouleaux Schistocytes PT (10.1-12.7) SECONDS INR (0.9-1.3) APTT (26-36) SECONDS D-Dimer (<500) ng/ml ABG pH (7.35-7.45) ABG pCO2 (35-45) mmHg ABG pO2 (80-100) mmHg ABG HCO3 (22-26) mmol/L ABG Total CO2 (21-31) mmol/L ABG O2 Saturation (95-100) % ABG Base Excess (-2-2) mmol/L FiO2 Sodium 140 (137-145) mmol/L Potassium 4.0 (3.4-5.1) mmol/L Chloride 108 H (98-107) mmol/L Carbon Dioxide < 5 L* (22-32) mmol/L BUN 60 H (7-17) mg/dL Creatinine 2.85 H (0.52-1.04) mg/dL Estimated GFR 17 L (>60) mL/min BUN/Creatinine Ratio 21.1 (6-22) Glucose 165 H D (80-110) mg/dL Lactate (0.7-2.1) mmol/L Calcium 7.0 L (8.4-10.2) mg/dL Total Bilirubin 0.8 (0.2-1.3) mg/dL AST 32 (14-36) IU/L ALT 21 (<35) IU/L Alkaline Phosphatase 228 H (38-126) U/L Ammonia 150 H (9-30) umol/L Total Creatine Kinase (30-135) U/L CK-MB (CK-2) (<2.37) ng/mL CK-MB (CK-2) Rel Index (1.5-5.0) % Troponin I 0.303 H* (0.01-0.034) ng/mL Total Protein 4.9 L (6.3-8.2) g/dL Albumin 2.6 L (3.5-5.0) g/dL Globulin 2.3 (1.7-4.1) g/dL Albumin/Globulin Ratio 1.1 (1.0-2.8) Lipase (23-300) U/L Procalcitonin (<0.5) ng/mL TSH (0.47-4.68) uIU/mL Prolactin (3.0-18.6) ng/mL Urine Color Urine Appearance Urine pH (4.5-8.0) Ur Specific [place] (1.000-1.035) Urine Protein (Negative) Urine Glucose (UA) (Negative) g/dL Urine Ketones (NEGATIVE) Urine Occult Blood (Negative) Urine Nitrate (Negative) Urine Bilirubin (NEGATIVE) Urine Urobilinogen (0.2) E.U./dL Ur Leukocyte Esterase (NEGATIVE) Urine RBC (0-5/HPF) Urine WBC (0-5/HPF) Ur Squamous Epith Cells (0-5/HPF) Ur Transition Epith Cell (0-5/HPF) Urine Bacteria (None) Salicylates (<20) mg/dL U Opiates 300ng/mL cut (Negative) Ur Oxycodone Screen (Negative) Urine Methadone Screen (Negative) Acetaminophen 255 H* (10-30) ug/mL Ur Barbiturates Screen (Negative) U Tricyclic Antidepress (Negative) Ur Phencyclidine Scrn (Negative) Ur Amphetamines Screen (Negative) U Methamphetamines Scrn (Negative) Ur MDMA Scrn (Ecstasy) (Negative) U Benzodiazepines Scrn (Negative) Urine Cocaine Screen (Negative) U Marijuana (THC) Screen (Negative) Ethyl Alcohol ( - 10) mg/dL A. baumannii (PCR) (Not Detect) Aura albicans (PCR) (Not Detect) C. glabrata (PCR) (Not Detect) C. krusei (PCR) (Not Detect) C. parapsilosis (PCR) (Not Detect) C. tropicalis (PCR) (Not Detect) SARS-CoV-2 (PCR) (Negative) Enterobacteriac sp PCR (Not Detect) E. cloacae complex PCR (Not Detect) Enterococcus sp PCR (Not Detect) E. coli (PCR) (Not Detect) H. influenzae (PCR) (Not Detect) Klebsiella oxytoca PCR (Not Detect) Klebsiella pneumoniae (Not Detect) List. monocytogenes PCR (Not Detect) N. meningitidis (PCR) (Not Detect) Proteus species (PCR) (Not Detect) Serratia marcescens PCR (Not Detect) Staphylococcus sp PCR (Not Detect) Staph aureus (PCR) (Not Detect) mecA-Methicil Res Gene Streptococcus sp PCR (Not Detect) Group A Strep (PCR) (Not Detect) Strep agalactiae (PCR) (Not Detect) Strep pneumoniae (PCR) (Not Detect) P. aeruginosa (PCR) (Not Detect) eJt/B-Vanco Res Genes KPC-Carbap Res Gene PCR (Not Detect) 07/21/22 07/21/22 07/21/22 Range/Units 17:48 17:48 20:19 WBC (4.5-11.0) X10^3/uL RBC (4.0-5.2) X10^6/uL Hgb (12.0-16.0) g/dL Hct (36-46) % MCV (80-100) fL MCH (26-34) PG MCHC (30-36) % RDW (11.6-14.8) % Plt Count (150-400) X10^3/uL Neut % (Auto) (50-75) % Lymph % (Auto) (25-40) % Gillespie % (Auto) (3-14) % Eos % (Auto) (2-4) % Baso % (Auto) (0-2) % Neut # (Auto) (9381-1178) /uL Lymph # (Auto) (8991-3248) /uL [place] # (Auto) (0-900) /uL Eos # (Auto) (0-450) /uL Baso # (Auto) (0-100) /uL Total Counted Seg Neutrophils % (38-70) % Band Neutrophils % (3-7) % Lymphocytes % (Manual) (25-45) % Monocytes % (Manual) (2-11) % Neutrophils # (Manual) (5643-4536) /uL Nucleated RBCs Hypersegmented Neuts Hypogranular Neuts Reactive Lymphocytes Smudge Cells Other Cell Type Toxic Granulation Toxic Vacuolation Dohle Bodies Rafaela Rods WBC Morphology Comment Platelet Estimate Clumped Platelets Plt Morphology Comment RBC Morphology Dimorphic RBCs Polychromasia Hypochromasia Poikilocytosis Basophilic Stippling Anisocytosis Microcytosis Macrocytosis Spherocytes Pappenheimer Bodies Sickle Cells Target Cells Tear Drop Cells Ovalocytes Stomatocytes Helmet Cells [place] Bodies [place] Rings Rizwan Cells Acanthocytes (Spur) Rouleaux Schistocytes PT 13.4 H (10.1-12.7) SECONDS INR 1.2 (0.9-1.3) APTT (26-36) SECONDS D-Dimer (<500) ng/ml ABG pH 7.12 L* (7.35-7.45) ABG pCO2 15.4 L* (35-45) mmHg ABG pO2 153 H (80-100) mmHg ABG HCO3 5 L (22-26) mmol/L ABG Total CO2 5 L (21-31) mmol/L ABG O2 Saturation 99 (95-100) % ABG Base Excess -24.0 L (-2-2) mmol/L FiO2 30 Sodium (137-145) mmol/L Potassium (3.4-5.1) mmol/L Chloride (98-107) mmol/L Carbon Dioxide (22-32) mmol/L BUN (7-17) mg/dL Creatinine (0.52-1.04) mg/dL Estimated GFR (>60) mL/min BUN/Creatinine Ratio (6-22) Glucose (80-110) mg/dL Lactate (0.7-2.1) mmol/L Calcium (8.4-10.2) mg/dL Total Bilirubin (0.2-1.3) mg/dL AST (14-36) IU/L ALT (<35) IU/L Alkaline Phosphatase (38-126) U/L Ammonia (9-30) umol/L Total Creatine Kinase (30-135) U/L CK-MB (CK-2) (<2.37) ng/mL CK-MB (CK-2) Rel Index (1.5-5.0) % Troponin I (0.01-0.034) ng/mL Total Protein (6.3-8.2) g/dL Albumin (3.5-5.0) g/dL Globulin (1.7-4.1) g/dL Albumin/Globulin Ratio (1.0-2.8) Lipase (23-300) U/L Procalcitonin (<0.5) ng/mL TSH (0.47-4.68) uIU/mL Prolactin (3.0-18.6) ng/mL Urine Color Urine Appearance Urine pH (4.5-8.0) Ur Specific [place] (1.000-1.035) Urine Protein (Negative) Urine Glucose (UA) (Negative) g/dL Urine Ketones (NEGATIVE) Urine Occult Blood (Negative) Urine Nitrate (Negative) Urine Bilirubin (NEGATIVE) Urine Urobilinogen (0.2) E.U./dL Ur Leukocyte Esterase (NEGATIVE) Urine RBC (0-5/HPF) Urine WBC (0-5/HPF) Ur Squamous Epith Cells (0-5/HPF) Ur Transition Epith Cell (0-5/HPF) Urine Bacteria (None) Salicylates (<20) mg/dL U Opiates 300ng/mL cut (Negative) Ur Oxycodone Screen (Negative) Urine Methadone Screen (Negative) Acetaminophen (10-30) ug/mL Ur Barbiturates Screen (Negative) U Tricyclic Antidepress (Negative) Ur Phencyclidine Scrn (Negative) Ur Amphetamines Screen (Negative) U Methamphetamines Scrn (Negative) Ur MDMA Scrn (Ecstasy) (Negative) U Benzodiazepines Scrn (Negative) Urine Cocaine Screen (Negative) U Marijuana (THC) Screen (Negative) Ethyl Alcohol ( - 10) mg/dL A. baumannii (PCR) Not detected (Not Detect) Aura albicans (PCR) Not detected (Not Detect) C. glabrata (PCR) Not detected (Not Detect) C. krusei (PCR) Not detected (Not Detect) C. parapsilosis (PCR) Not detected (Not Detect) C. tropicalis (PCR) Not detected (Not Detect) SARS-CoV-2 (PCR) (Negative) Enterobacteriac sp PCR Detected H (Not Detect) E. cloacae complex PCR Not detected (Not Detect) Enterococcus sp PCR Not detected (Not Detect) E. coli (PCR) Not detected (Not Detect) H. influenzae (PCR) Not detected (Not Detect) Klebsiella oxytoca PCR Not detected (Not Detect) Klebsiella pneumoniae Detected H (Not Detect) List. monocytogenes PCR Not detected (Not Detect) N. meningitidis (PCR) Not detected (Not Detect) Proteus species (PCR) Not detected (Not Detect) Serratia marcescens PCR Not detected (Not Detect) Staphylococcus sp PCR Not detected (Not Detect) Staph aureus (PCR) Not detected (Not Detect) mecA-Methicil Res Gene Not Reportable Streptococcus sp PCR Not detected (Not Detect) Group A Strep (PCR) Not detected (Not Detect) Strep agalactiae (PCR) Not detected (Not Detect) Strep pneumoniae (PCR) Not detected (Not Detect) P. aeruginosa (PCR) Not detected (Not Detect) Jet/B-Vanco Res Genes Not Reportable KPC-Carbap Res Gene PCR Not detected (Not Detect) 07/21/22 07/21/22 07/21/22 Range/Units 22:57 22:57 22:57 WBC (4.5-11.0) X10^3/uL RBC (4.0-5.2) X10^6/uL Hgb (12.0-16.0) g/dL Hct (36-46) % MCV (80-100) fL MCH (26-34) PG MCHC (30-36) % RDW (11.6-14.8) % Plt Count (150-400) X10^3/uL Neut % (Auto) (50-75) % Lymph % (Auto) (25-40) % [place]pie % (Auto) (3-14) % Eos % (Auto) (2-4) % Baso % (Auto) (0-2) % Neut # (Auto) (9734-3549) /uL Lymph # (Auto) (8256-3828) /uL [place]pie # (Auto) (0-900) /uL Eos # (Auto) (0-450) /uL Baso # (Auto) (0-100) /uL Total Counted Seg Neutrophils % (38-70) % Band Neutrophils % (3-7) % Lymphocytes % (Manual) (25-45) % Monocytes % (Manual) (2-11) % Neutrophils # (Manual) (7410-1176) /uL Nucleated RBCs Hypersegmented Neuts Hypogranular Neuts Reactive Lymphocytes Smudge Cells Other Cell Type Toxic Granulation Toxic Vacuolation Dohle Bodies Rafaela Rods WBC Morphology Comment Platelet Estimate Clumped Platelets Plt Morphology Comment RBC Morphology Dimorphic RBCs Polychromasia Hypochromasia Poikilocytosis Basophilic Stippling Anisocytosis Microcytosis Macrocytosis Spherocytes Pappenheimer Bodies Sickle Cells Target Cells Tear Drop Cells Ovalocytes Stomatocytes Helmet Cells [place] Bodies [place] Rings [place] Cells Acanthocytes (Spur) Rouleaux Schistocytes PT 15.7 H (10.1-12.7) SECONDS INR 1.4 H (0.9-1.3) APTT (26-36) SECONDS D-Dimer (<500) ng/ml ABG pH (7.35-7.45) ABG pCO2 (35-45) mmHg ABG pO2 (80-100) mmHg ABG HCO3 (22-26) mmol/L ABG Total CO2 (21-31) mmol/L ABG O2 Saturation (95-100) % ABG Base Excess (-2-2) mmol/L FiO2 Sodium 140 (137-145) mmol/L Potassium 3.2 L (3.4-5.1) mmol/L Chloride 105 (98-107) mmol/L Carbon Dioxide 5 L* (22-32) mmol/L BUN 60 H (7-17) mg/dL Creatinine 3.28 H (0.52-1.04) mg/dL Estimated GFR 15 L (>60) mL/min BUN/Creatinine Ratio 18.3 (6-22) Glucose 136 H (80-110) mg/dL Lactate (0.7-2.1) mmol/L Calcium 6.7 L (8.4-10.2) mg/dL Total Bilirubin 0.8 (0.2-1.3) mg/dL AST 36 (14-36) IU/L ALT 24 (<35) IU/L Alkaline Phosphatase 214 H (38-126) U/L Ammonia 64 H (9-30) umol/L Total Creatine Kinase (30-135) U/L CK-MB (CK-2) (<2.37) ng/mL CK-MB (CK-2) Rel Index (1.5-5.0) % Troponin I 1.020 H* (0.01-0.034) ng/mL Total Protein 5.5 L (6.3-8.2) g/dL Albumin 2.9 L (3.5-5.0) g/dL Globulin 2.6 (1.7-4.1) g/dL Albumin/Globulin Ratio 1.1 (1.0-2.8) Lipase 3270 H (23-300) U/L Procalcitonin (<0.5) ng/mL TSH (0.47-4.68) uIU/mL Prolactin (3.0-18.6) ng/mL Urine Color Urine Appearance Urine pH (4.5-8.0) Ur Specific [place] (1.000-1.035) Urine Protein (Negative) Urine Glucose (UA) (Negative) g/dL Urine Ketones (NEGATIVE) Urine Occult Blood (Negative) Urine Nitrate (Negative) Urine Bilirubin (NEGATIVE) Urine Urobilinogen (0.2) E.U./dL Ur Leukocyte Esterase (NEGATIVE) Urine RBC (0-5/HPF) Urine WBC (0-5/HPF) Ur Squamous Epith Cells (0-5/HPF) Ur Transition Epith Cell (0-5/HPF) Urine Bacteria (None) Salicylates (<20) mg/dL U Opiates 300ng/mL cut (Negative) Ur Oxycodone Screen (Negative) Urine Methadone Screen (Negative) Acetaminophen 188 H* (10-30) ug/mL Ur Barbiturates Screen (Negative) U Tricyclic Antidepress (Negative) Ur Phencyclidine Scrn (Negative) Ur Amphetamines Screen (Negative) U Methamphetamines Scrn (Negative) Ur MDMA Scrn (Ecstasy) (Negative) U Benzodiazepines Scrn (Negative) Urine Cocaine Screen (Negative) U Marijuana (THC) Screen (Negative) Ethyl Alcohol ( - 10) mg/dL A. baumannii (PCR) (Not Detect) Aura albicans (PCR) (Not Detect) C. glabrata (PCR) (Not Detect) C. krusei (PCR) (Not Detect) C. parapsilosis (PCR) (Not Detect) C. tropicalis (PCR) (Not Detect) SARS-CoV-2 (PCR) (Negative) Enterobacteriac sp PCR (Not Detect) E. cloacae complex PCR (Not Detect) Enterococcus sp PCR (Not Detect) E. coli (PCR) (Not Detect) H. influenzae (PCR) (Not Detect) Klebsiella oxytoca PCR (Not Detect) Klebsiella pneumoniae (Not Detect) List. monocytogenes PCR (Not Detect) N. meningitidis (PCR) (Not Detect) Proteus species (PCR) (Not Detect) Serratia marcescens PCR (Not Detect) Staphylococcus sp PCR (Not Detect) Staph aureus (PCR) (Not Detect) mecA-Methicil Res Gene Streptococcus sp PCR (Not Detect) Group A Strep (PCR) (Not Detect) Strep agalactiae (PCR) (Not Detect) Strep pneumoniae (PCR) (Not Detect) P. aeruginosa (PCR) (Not Detect) Jet/B-Vanco Res Genes KPC-Carbap Res Gene PCR (Not Detect) 07/21/22 07/22/22 07/22/22 Range/Units 23:27 04:30 04:30 WBC (4.5-11.0) X10^3/uL RBC (4.0-5.2) X10^6/uL Hgb (12.0-16.0) g/dL Hct (36-46) % MCV (80-100) fL MCH (26-34) PG MCHC (30-36) % RDW (11.6-14.8) % Plt Count (150-400) X10^3/uL Neut % (Auto) (50-75) % Lymph % (Auto) (25-40) % [place]illespie % (Auto) (3-14) % Eos % (Auto) (2-4) % Baso % (Auto) (0-2) % Neut # (Auto) (9225-5561) /uL Lymph # (Auto) (0482-3897) /uL [place]pie # (Auto) (0-900) /uL Eos # (Auto) (0-450) /uL Baso # (Auto) (0-100) /uL Total Counted Seg Neutrophils % (38-70) % Band Neutrophils % (3-7) % Lymphocytes % (Manual) (25-45) % Monocytes % (Manual) (2-11) % Neutrophils # (Manual) (9927-4332) /uL Nucleated RBCs Hypersegmented Neuts Hypogranular Neuts Reactive Lymphocytes Smudge Cells Other Cell Type Toxic Granulation Toxic Vacuolation Dohle Bodies Rafaela Rods WBC Morphology Comment Platelet Estimate Clumped Platelets Plt Morphology Comment RBC Morphology Dimorphic RBCs Polychromasia Hypochromasia Poikilocytosis Basophilic Stippling Anisocytosis Microcytosis Macrocytosis Spherocytes Pappenheimer Bodies Sickle Cells Target Cells Tear Drop Cells Ovalocytes Stomatocytes Helmet Cells [place] Bodies [place] Rings [place] Cells Acanthocytes (Spur) Rouleaux Schistocytes PT (10.1-12.7) SECONDS INR (0.9-1.3) APTT (26-36) SECONDS D-Dimer (<500) ng/ml ABG pH 7.10 L* (7.35-7.45) ABG pCO2 14.5 L* (35-45) mmHg ABG pO2 167 H (80-100) mmHg ABG HCO3 5 L (22-26) mmol/L ABG Total CO2 < 5 L (21-31) mmol/L ABG O2 Saturation 99 (95-100) % ABG Base Excess -25.0 L (-2-2) mmol/L FiO2 30 Sodium 138 (137-145) mmol/L Potassium 3.2 L (3.4-5.1) mmol/L Chloride 102 (98-107) mmol/L Carbon Dioxide < 5 L* (22-32) mmol/L BUN 62 H (7-17) mg/dL Creatinine 3.59 H (0.52-1.04) mg/dL Estimated GFR 13 L (>60) mL/min BUN/Creatinine Ratio 17.3 (6-22) Glucose 89 (80-110) mg/dL Lactate (0.7-2.1) mmol/L Calcium 6.7 L (8.4-10.2) mg/dL Total Bilirubin 0.7 (0.2-1.3) mg/dL AST 31 (14-36) IU/L ALT 23 (<35) IU/L Alkaline Phosphatase 177 H (38-126) U/L Ammonia 50 H (9-30) umol/L Total Creatine Kinase (30-135) U/L CK-MB (CK-2) (<2.37) ng/mL CK-MB (CK-2) Rel Index (1.5-5.0) % Troponin I 1.080 H* (0.01-0.034) ng/mL Total Protein 5.5 L (6.3-8.2) g/dL Albumin 2.8 L (3.5-5.0) g/dL Globulin 2.7 (1.7-4.1) g/dL Albumin/Globulin Ratio 1.0 (1.0-2.8) Lipase 2860 H (23-300) U/L Procalcitonin (<0.5) ng/mL TSH (0.47-4.68) uIU/mL Prolactin (3.0-18.6) ng/mL Urine Color Urine Appearance Urine pH (4.5-8.0) Ur Specific [place] (1.000-1.035) Urine Protein (Negative) Urine Glucose (UA) (Negative) g/dL Urine Ketones (NEGATIVE) Urine Occult Blood (Negative) Urine Nitrate (Negative) Urine Bilirubin (NEGATIVE) Urine Urobilinogen (0.2) E.U./dL Ur Leukocyte Esterase (NEGATIVE) Urine RBC (0-5/HPF) Urine WBC (0-5/HPF) Ur Squamous Epith Cells (0-5/HPF) Ur Transition Epith Cell (0-5/HPF) Urine Bacteria (None) Salicylates (<20) mg/dL U Opiates 300ng/mL cut (Negative) Ur Oxycodone Screen (Negative) Urine Methadone Screen (Negative) Acetaminophen (10-30) ug/mL Ur Barbiturates Screen (Negative) U Tricyclic Antidepress (Negative) Ur Phencyclidine Scrn (Negative) Ur Amphetamines Screen (Negative) U Methamphetamines Scrn (Negative) Ur MDMA Scrn (Ecstasy) (Negative) U Benzodiazepines Scrn (Negative) Urine Cocaine Screen (Negative) U Marijuana (THC) Screen (Negative) Ethyl Alcohol ( - 10) mg/dL A. baumannii (PCR) (Not Detect) Aura albicans (PCR) (Not Detect) C. glabrata (PCR) (Not Detect) C. krusei (PCR) (Not Detect) C. parapsilosis (PCR) (Not Detect) C. tropicalis (PCR) (Not Detect) SARS-CoV-2 (PCR) (Negative) Enterobacteriac sp PCR (Not Detect) E. cloacae complex PCR (Not Detect) Enterococcus sp PCR (Not Detect) E. coli (PCR) (Not Detect) H. influenzae (PCR) (Not Detect) Klebsiella oxytoca PCR (Not Detect) Klebsiella pneumoniae (Not Detect) List. monocytogenes PCR (Not Detect) N. meningitidis (PCR) (Not Detect) Proteus species (PCR) (Not Detect) Serratia marcescens PCR (Not Detect) Staphylococcus sp PCR (Not Detect) Staph aureus (PCR) (Not Detect) mecA-Methicil Res Gene Streptococcus sp PCR (Not Detect) Group A Strep (PCR) (Not Detect) Strep agalactiae (PCR) (Not Detect) Strep pneumoniae (PCR) (Not Detect) P. aeruginosa (PCR) (Not Detect) Jet/B-Vanco Res Genes KPC-Carbap Res Gene PCR (Not Detect) 07/22/22 07/22/22 07/22/22 Range/Units 04:30 04:30 04:30 WBC (4.5-11.0) X10^3/uL RBC (4.0-5.2) X10^6/uL Hgb (12.0-16.0) g/dL Hct (36-46) % MCV (80-100) fL MCH (26-34) PG MCHC (30-36) % RDW (11.6-14.8) % Plt Count (150-400) X10^3/uL Neut % (Auto) (50-75) % Lymph % (Auto) (25-40) % [place]pie % (Auto) (3-14) % Eos % (Auto) (2-4) % Baso % (Auto) (0-2) % Neut # (Auto) (2397-0609) /uL Lymph # (Auto) (2281-5906) /uL [place] # (Auto) (0-900) /uL Eos # (Auto) (0-450) /uL Baso # (Auto) (0-100) /uL Total Counted Seg Neutrophils % (38-70) % Band Neutrophils % (3-7) % Lymphocytes % (Manual) (25-45) % Monocytes % (Manual) (2-11) % Neutrophils # (Manual) (9144-5599) /uL Nucleated RBCs Hypersegmented Neuts Hypogranular Neuts Reactive Lymphocytes Smudge Cells Other Cell Type Toxic Granulation Toxic Vacuolation Dohle Bodies Rafaela Rods WBC Morphology Comment Platelet Estimate Clumped Platelets Plt Morphology Comment RBC Morphology Dimorphic RBCs Polychromasia Hypochromasia Poikilocytosis Basophilic Stippling Anisocytosis Microcytosis Macrocytosis Spherocytes Pappenheimer Bodies Sickle Cells Target Cells Tear Drop Cells Ovalocytes Stomatocytes Helmet Cells [place] Bodies [place] Rings Rizwan Cells Acanthocytes (Spur) Rouleaux Schistocytes PT (10.1-12.7) SECONDS INR (0.9-1.3) APTT (26-36) SECONDS D-Dimer (<500) ng/ml ABG pH (7.35-7.45) ABG pCO2 (35-45) mmHg ABG pO2 (80-100) mmHg ABG HCO3 (22-26) mmol/L ABG Total CO2 (21-31) mmol/L ABG O2 Saturation (95-100) % ABG Base Excess (-2-2) mmol/L FiO2 Sodium (137-145) mmol/L Potassium (3.4-5.1) mmol/L Chloride (98-107) mmol/L Carbon Dioxide (22-32) mmol/L BUN (7-17) mg/dL Creatinine (0.52-1.04) mg/dL Estimated GFR (>60) mL/min BUN/Creatinine Ratio (6-22) Glucose (80-110) mg/dL Lactate 1.3 (0.7-2.1) mmol/L Calcium (8.4-10.2) mg/dL Total Bilirubin (0.2-1.3) mg/dL AST (14-36) IU/L ALT (<35) IU/L Alkaline Phosphatase (38-126) U/L Ammonia (9-30) umol/L Total Creatine Kinase 173 H (30-135) U/L CK-MB (CK-2) (<2.37) ng/mL CK-MB (CK-2) Rel Index (1.5-5.0) % Troponin I (0.01-0.034) ng/mL Total Protein (6.3-8.2) g/dL Albumin (3.5-5.0) g/dL Globulin (1.7-4.1) g/dL Albumin/Globulin Ratio (1.0-2.8) Lipase (23-300) U/L Procalcitonin (<0.5) ng/mL TSH (0.47-4.68) uIU/mL Prolactin (3.0-18.6) ng/mL Urine Color Urine Appearance Urine pH (4.5-8.0) Ur Specific [place] (1.000-1.035) Urine Protein (Negative) Urine Glucose (UA) (Negative) g/dL Urine Ketones (NEGATIVE) Urine Occult Blood (Negative) Urine Nitrate (Negative) Urine Bilirubin (NEGATIVE) Urine Urobilinogen (0.2) E.U./dL Ur Leukocyte Esterase (NEGATIVE) Urine RBC (0-5/HPF) Urine WBC (0-5/HPF) Ur Squamous Epith Cells (0-5/HPF) Ur Transition Epith Cell (0-5/HPF) Urine Bacteria (None) Salicylates (<20) mg/dL U Opiates 300ng/mL cut (Negative) Ur Oxycodone Screen (Negative) Urine Methadone Screen (Negative) Acetaminophen 117 H* (10-30) ug/mL Ur Barbiturates Screen (Negative) U Tricyclic Antidepress (Negative) Ur Phencyclidine Scrn (Negative) Ur Amphetamines Screen (Negative) U Methamphetamines Scrn (Negative) Ur MDMA Scrn (Ecstasy) (Negative) U Benzodiazepines Scrn (Negative) Urine Cocaine Screen (Negative) U Marijuana (THC) Screen (Negative) Ethyl Alcohol ( - 10) mg/dL A. baumannii (PCR) (Not Detect) Aura albicans (PCR) (Not Detect) C. glabrata (PCR) (Not Detect) C. krusei (PCR) (Not Detect) C. parapsilosis (PCR) (Not Detect) C. tropicalis (PCR) (Not Detect) SARS-CoV-2 (PCR) (Negative) Enterobacteriac sp PCR (Not Detect) E. cloacae complex PCR (Not Detect) Enterococcus sp PCR (Not Detect) E. coli (PCR) (Not Detect) H. influenzae (PCR) (Not Detect) Klebsiella oxytoca PCR (Not Detect) Klebsiella pneumoniae (Not Detect) List. monocytogenes PCR (Not Detect) N. meningitidis (PCR) (Not Detect) Proteus species (PCR) (Not Detect) Serratia marcescens PCR (Not Detect) Staphylococcus sp PCR (Not Detect) Staph aureus (PCR) (Not Detect) mecA-Methicil Res Gene Streptococcus sp PCR (Not Detect) Group A Strep (PCR) (Not Detect) Strep agalactiae (PCR) (Not Detect) Strep pneumoniae (PCR) (Not Detect) P. aeruginosa (PCR) (Not Detect) Jet/B-Vanco Res Genes KPC-Carbap Res Gene PCR (Not Detect) 07/22/22 07/22/22 07/22/22 Range/Units 04:55 05:37 08:08 WBC (4.5-11.0) X10^3/uL RBC (4.0-5.2) X10^6/uL Hgb (12.0-16.0) g/dL Hct (36-46) % MCV (80-100) fL MCH (26-34) PG MCHC (30-36) % RDW (11.6-14.8) % Plt Count (150-400) X10^3/uL Neut % (Auto) (50-75) % Lymph % (Auto) (25-40) % [place]pie % (Auto) (3-14) % Eos % (Auto) (2-4) % Baso % (Auto) (0-2) % Neut # (Auto) (8093-0440) /uL Lymph # (Auto) (4086-4240) /uL Gillespie # (Auto) (0-900) /uL Eos # (Auto) (0-450) /uL Baso # (Auto) (0-100) /uL Total Counted Seg Neutrophils % (38-70) % Band Neutrophils % (3-7) % Lymphocytes % (Manual) (25-45) % Monocytes % (Manual) (2-11) % Neutrophils # (Manual) (0179-8322) /uL Nucleated RBCs Hypersegmented Neuts Hypogranular Neuts Reactive Lymphocytes Smudge Cells Other Cell Type Toxic Granulation Toxic Vacuolation Dohle Bodies Rafaela Rods WBC Morphology Comment Platelet Estimate Clumped Platelets Plt Morphology Comment RBC Morphology Dimorphic RBCs Polychromasia Hypochromasia Poikilocytosis Basophilic Stippling Anisocytosis Microcytosis Macrocytosis Spherocytes Pappenheimer Bodies Sickle Cells Target Cells Tear Drop Cells Ovalocytes Stomatocytes Helmet Cells [place] Bodies [place] Rings Jennings Cells Acanthocytes (Spur) Rouleaux Schistocytes PT 18.3 H (10.1-12.7) SECONDS INR 1.6 H (0.9-1.3) APTT (26-36) SECONDS D-Dimer (<500) ng/ml ABG pH 7.06 L* 7.13 L* (7.35-7.45) ABG pCO2 15.7 L* 17.0 L* (35-45) mmHg ABG pO2 163 H 149 H (80-100) mmHg ABG HCO3 5 L 6 L (22-26) mmol/L ABG Total CO2 < 5 L 6 L (21-31) mmol/L ABG O2 Saturation 99 99 (95-100) % ABG Base Excess -26.0 L -23.0 L (-2-2) mmol/L FiO2 30 30 Sodium (137-145) mmol/L Potassium (3.4-5.1) mmol/L Chloride (98-107) mmol/L Carbon Dioxide (22-32) mmol/L BUN (7-17) mg/dL Creatinine (0.52-1.04) mg/dL Estimated GFR (>60) mL/min BUN/Creatinine Ratio (6-22) Glucose (80-110) mg/dL Lactate (0.7-2.1) mmol/L Calcium (8.4-10.2) mg/dL Total Bilirubin (0.2-1.3) mg/dL AST (14-36) IU/L ALT (<35) IU/L Alkaline Phosphatase (38-126) U/L Ammonia (9-30) umol/L Total Creatine Kinase (30-135) U/L CK-MB (CK-2) (<2.37) ng/mL CK-MB (CK-2) Rel Index (1.5-5.0) % Troponin I (0.01-0.034) ng/mL Total Protein (6.3-8.2) g/dL Albumin (3.5-5.0) g/dL Globulin (1.7-4.1) g/dL Albumin/Globulin Ratio (1.0-2.8) Lipase (23-300) U/L Procalcitonin (<0.5) ng/mL TSH (0.47-4.68) uIU/mL Prolactin (3.0-18.6) ng/mL Urine Color Urine Appearance Urine pH (4.5-8.0) Ur Specific [place] (1.000-1.035) Urine Protein (Negative) Urine Glucose (UA) (Negative) g/dL Urine Ketones (NEGATIVE) Urine Occult Blood (Negative) Urine Nitrate (Negative) Urine Bilirubin (NEGATIVE) Urine Urobilinogen (0.2) E.U./dL Ur Leukocyte Esterase (NEGATIVE) Urine RBC (0-5/HPF) Urine WBC (0-5/HPF) Ur Squamous Epith Cells (0-5/HPF) Ur Transition Epith Cell (0-5/HPF) Urine Bacteria (None) Salicylates (<20) mg/dL U Opiates 300ng/mL cut (Negative) Ur Oxycodone Screen (Negative) Urine Methadone Screen (Negative) Acetaminophen (10-30) ug/mL Ur Barbiturates Screen (Negative) U Tricyclic Antidepress (Negative) Ur Phencyclidine Scrn (Negative) Ur Amphetamines Screen (Negative) U Methamphetamines Scrn (Negative) Ur MDMA Scrn (Ecstasy) (Negative) U Benzodiazepines Scrn (Negative) Urine Cocaine Screen (Negative) U Marijuana (THC) Screen (Negative) Ethyl Alcohol ( - 10) mg/dL A. baumannii (PCR) (Not Detect) Aura albicans (PCR) (Not Detect) C. glabrata (PCR) (Not Detect) C. krusei (PCR) (Not Detect) C. parapsilosis (PCR) (Not Detect) C. tropicalis (PCR) (Not Detect) SARS-CoV-2 (PCR) (Negative) Enterobacteriac sp PCR (Not Detect) E. cloacae complex PCR (Not Detect) Enterococcus sp PCR (Not Detect) E. coli (PCR) (Not Detect) H. influenzae (PCR) (Not Detect) Klebsiella oxytoca PCR (Not Detect) Klebsiella pneumoniae (Not Detect) List. monocytogenes PCR (Not Detect) N. meningitidis (PCR) (Not Detect) Proteus species (PCR) (Not Detect) Serratia marcescens PCR (Not Detect) Staphylococcus sp PCR (Not Detect) Staph aureus (PCR) (Not Detect) mecA-Methicil Res Gene Streptococcus sp PCR (Not Detect) Group A Strep (PCR) (Not Detect) Strep agalactiae (PCR) (Not Detect) Strep pneumoniae (PCR) (Not Detect) P. aeruginosa (PCR) (Not Detect) Jet/B-Vanco Res Genes KPC-Carbap Res Gene PCR (Not Detect) 07/22/22 07/22/22 07/22/22 Range/Units 08:15 10:00 10:00 WBC 8.7 (4.5-11.0) X10^3/uL RBC 2.77 L (4.0-5.2) X10^6/uL Hgb 10.5 L (12.0-16.0) g/dL Hct 31.1 L (36-46) % MCV 112.1 H (80-100) fL MCH 37.9 H (26-34) PG MCHC 33.8 (30-36) % RDW 18.6 H (11.6-14.8) % Plt Count 369 (150-400) X10^3/uL Neut % (Auto) Not Reportable (50-75) % Lymph % (Auto) Not Reportable (25-40) % Gillespie % (Auto) Not Reportable (3-14) % Eos % (Auto) Not Reportable (2-4) % Baso % (Auto) Not Reportable (0-2) % Neut # (Auto) (5517-4749) /uL Lymph # (Auto) Not Reportable (8922-6202) /uL Gillespie # (Auto) Not Reportable (0-900) /uL Eos # (Auto) (0-450) /uL Baso # (Auto) Not Reportable (0-100) /uL Total Counted 100 Seg Neutrophils % 63.0 (38-70) % Band Neutrophils % 16.0 H (3-7) % Lymphocytes % (Manual) 18.0 L (25-45) % Monocytes % (Manual) 3.0 (2-11) % Neutrophils # (Manual) 6873 H (5226-5800) /uL Nucleated RBCs 13 H Hypersegmented Neuts Hypogranular Neuts Reactive Lymphocytes Smudge Cells Other Cell Type Toxic Granulation Toxic Vacuolation Dohle Bodies Rafaela Rods WBC Morphology Comment Platelet Estimate Clumped Platelets Plt Morphology Comment RBC Morphology See below Dimorphic RBCs Polychromasia Hypochromasia Poikilocytosis Basophilic Stippling Anisocytosis Microcytosis Macrocytosis 2+ H Spherocytes Pappenheimer Bodies Sickle Cells Target Cells Tear Drop Cells Ovalocytes Stomatocytes Helmet Cells [place] Bodies [place] Rings Jennings Cells 1+ H Acanthocytes (Spur) 1+ H Rouleaux Schistocytes 1+ H PT 18.7 H (10.1-12.7) SECONDS INR 1.6 H (0.9-1.3) APTT 53 H D (26-36) SECONDS D-Dimer (<500) ng/ml ABG pH (7.35-7.45) ABG pCO2 (35-45) mmHg ABG pO2 (80-100) mmHg ABG HCO3 (22-26) mmol/L ABG Total CO2 (21-31) mmol/L ABG O2 Saturation (95-100) % ABG Base Excess (-2-2) mmol/L FiO2 Sodium (137-145) mmol/L Potassium (3.4-5.1) mmol/L Chloride (98-107) mmol/L Carbon Dioxide (22-32) mmol/L BUN (7-17) mg/dL Creatinine (0.52-1.04) mg/dL Estimated GFR (>60) mL/min BUN/Creatinine Ratio (6-22) Glucose (80-110) mg/dL Lactate (0.7-2.1) mmol/L Calcium (8.4-10.2) mg/dL Total Bilirubin (0.2-1.3) mg/dL AST (14-36) IU/L ALT (<35) IU/L Alkaline Phosphatase (38-126) U/L Ammonia (9-30) umol/L Total Creatine Kinase (30-135) U/L CK-MB (CK-2) (<2.37) ng/mL CK-MB (CK-2) Rel Index (1.5-5.0) % Troponin I (0.01-0.034) ng/mL Total Protein (6.3-8.2) g/dL Albumin (3.5-5.0) g/dL Globulin (1.7-4.1) g/dL Albumin/Globulin Ratio (1.0-2.8) Lipase (23-300) U/L Procalcitonin 91.3 H (<0.5) ng/mL TSH (0.47-4.68) uIU/mL Prolactin (3.0-18.6) ng/mL Urine Color Urine Appearance Urine pH (4.5-8.0) Ur Specific [place] (1.000-1.035) Urine Protein (Negative) Urine Glucose (UA) (Negative) g/dL Urine Ketones (NEGATIVE) Urine Occult Blood (Negative) Urine Nitrate (Negative) Urine Bilirubin (NEGATIVE) Urine Urobilinogen (0.2) E.U./dL Ur Leukocyte Esterase (NEGATIVE) Urine RBC (0-5/HPF) Urine WBC (0-5/HPF) Ur Squamous Epith Cells (0-5/HPF) Ur Transition Epith Cell (0-5/HPF) Urine Bacteria (None) Salicylates (<20) mg/dL U Opiates 300ng/mL cut (Negative) Ur Oxycodone Screen (Negative) Urine Methadone Screen (Negative) Acetaminophen (10-30) ug/mL Ur Barbiturates Screen (Negative) U Tricyclic Antidepress (Negative) Ur Phencyclidine Scrn (Negative) Ur Amphetamines Screen (Negative) U Methamphetamines Scrn (Negative) Ur MDMA Scrn (Ecstasy) (Negative) U Benzodiazepines Scrn (Negative) Urine Cocaine Screen (Negative) U Marijuana (THC) Screen (Negative) Ethyl Alcohol ( - 10) mg/dL A. baumannii (PCR) (Not Detect) Aura albicans (PCR) (Not Detect) C. glabrata (PCR) (Not Detect) C. krusei (PCR) (Not Detect) C. parapsilosis (PCR) (Not Detect) C. tropicalis (PCR) (Not Detect) SARS-CoV-2 (PCR) (Negative) Enterobacteriac sp PCR (Not Detect) E. cloacae complex PCR (Not Detect) Enterococcus sp PCR (Not Detect) E. coli (PCR) (Not Detect) H. influenzae (PCR) (Not Detect) Klebsiella oxytoca PCR (Not Detect) Klebsiella pneumoniae (Not Detect) List. monocytogenes PCR (Not Detect) N. meningitidis (PCR) (Not Detect) Proteus species (PCR) (Not Detect) Serratia marcescens PCR (Not Detect) Staphylococcus sp PCR (Not Detect) Staph aureus (PCR) (Not Detect) mecA-Methicil Res Gene Streptococcus sp PCR (Not Detect) Group A Strep (PCR) (Not Detect) Strep agalactiae (PCR) (Not Detect) Strep pneumoniae (PCR) (Not Detect) P. aeruginosa (PCR) (Not Detect) Jet/B-Vanco Res Genes KPC-Carbap Res Gene PCR (Not Detect) 07/22/22 07/22/22 Range/Units 10:00 10:00 WBC (4.5-11.0) X10^3/uL RBC (4.0-5.2) X10^6/uL Hgb (12.0-16.0) g/dL Hct (36-46) % MCV (80-100) fL MCH (26-34) PG MCHC (30-36) % RDW (11.6-14.8) % Plt Count (150-400) X10^3/uL Neut % (Auto) (50-75) % Lymph % (Auto) (25-40) % Gillespie % (Auto) (3-14) % Eos % (Auto) (2-4) % Baso % (Auto) (0-2) % Neut # (Auto) (9633-1959) /uL Lymph # (Auto) (2849-4365) /uL Gillespie # (Auto) (0-900) /uL Eos # (Auto) (0-450) /uL Baso # (Auto) (0-100) /uL Total Counted Seg Neutrophils % (38-70) % Band Neutrophils % (3-7) % Lymphocytes % (Manual) (25-45) % Monocytes % (Manual) (2-11) % Neutrophils # (Manual) (6093-4094) /uL Nucleated RBCs Hypersegmented Neuts Hypogranular Neuts Reactive Lymphocytes Smudge Cells Other Cell Type Toxic Granulation Toxic Vacuolation Dohle Bodies Rafaela Rods WBC Morphology Comment Platelet Estimate Clumped Platelets Plt Morphology Comment RBC Morphology Dimorphic RBCs Polychromasia Hypochromasia Poikilocytosis Basophilic Stippling Anisocytosis Microcytosis Macrocytosis Spherocytes Pappenheimer Bodies Sickle Cells Target Cells Tear Drop Cells Ovalocytes Stomatocytes Helmet Cells [place] Bodies [place] Rings [place] Cells Acanthocytes (Spur) Rouleaux Schistocytes PT (10.1-12.7) SECONDS INR (0.9-1.3) APTT (26-36) SECONDS D-Dimer 63539 H (<500) ng/ml ABG pH (7.35-7.45) ABG pCO2 (35-45) mmHg ABG pO2 (80-100) mmHg ABG HCO3 (22-26) mmol/L ABG Total CO2 (21-31) mmol/L ABG O2 Saturation (95-100) % ABG Base Excess (-2-2) mmol/L FiO2 Sodium 139 (137-145) mmol/L Potassium 3.1 L (3.4-5.1) mmol/L Chloride 102 (98-107) mmol/L Carbon Dioxide 6 L* (22-32) mmol/L BUN 60 H (7-17) mg/dL Creatinine 3.48 H (0.52-1.04) mg/dL Estimated GFR 14 L (>60) mL/min BUN/Creatinine Ratio 17.2 (6-22) Glucose 97 (80-110) mg/dL Lactate (0.7-2.1) mmol/L Calcium 6.7 L (8.4-10.2) mg/dL Total Bilirubin 0.7 (0.2-1.3) mg/dL AST 35 (14-36) IU/L ALT 23 (<35) IU/L Alkaline Phosphatase 190 H (38-126) U/L Ammonia (9-30) umol/L Total Creatine Kinase (30-135) U/L CK-MB (CK-2) (<2.37) ng/mL CK-MB (CK-2) Rel Index (1.5-5.0) % Troponin I (0.01-0.034) ng/mL Total Protein 5.7 L (6.3-8.2) g/dL Albumin 2.8 L (3.5-5.0) g/dL Globulin 2.9 (1.7-4.1) g/dL Albumin/Globulin Ratio 1.0 (1.0-2.8) Lipase 2033 H (23-300) U/L Procalcitonin (<0.5) ng/mL TSH (0.47-4.68) uIU/mL Prolactin (3.0-18.6) ng/mL Urine Color Urine Appearance Urine pH (4.5-8.0) Ur Specific [place] (1.000-1.035) Urine Protein (Negative) Urine Glucose (UA) (Negative) g/dL Urine Ketones (NEGATIVE) Urine Occult Blood (Negative) Urine Nitrate (Negative) Urine Bilirubin (NEGATIVE) Urine Urobilinogen (0.2) E.U./dL Ur Leukocyte Esterase (NEGATIVE) Urine RBC (0-5/HPF) Urine WBC (0-5/HPF) Ur Squamous Epith Cells (0-5/HPF) Ur Transition Epith Cell (0-5/HPF) Urine Bacteria (None) Salicylates (<20) mg/dL U Opiates 300ng/mL cut (Negative) Ur Oxycodone Screen (Negative) Urine Methadone Screen (Negative) Acetaminophen 70 H* (10-30) ug/mL Ur Barbiturates Screen (Negative) U Tricyclic Antidepress (Negative) Ur Phencyclidine Scrn (Negative) Ur Amphetamines Screen (Negative) U Methamphetamines Scrn (Negative) Ur MDMA Scrn (Ecstasy) (Negative) U Benzodiazepines Scrn (Negative) Urine Cocaine Screen (Negative) U Marijuana (THC) Screen (Negative) Ethyl Alcohol ( - 10) mg/dL A. baumannii (PCR) (Not Detect) Aura albicans (PCR) (Not Detect) C. glabrata (PCR) (Not Detect) C. krusei (PCR) (Not Detect) C. parapsilosis (PCR) (Not Detect) C. tropicalis (PCR) (Not Detect) SARS-CoV-2 (PCR) (Negative) Enterobacteriac sp PCR (Not Detect) E. cloacae complex PCR (Not Detect) Enterococcus sp PCR (Not Detect) E. coli (PCR) (Not Detect) H. influenzae (PCR) (Not Detect) Klebsiella oxytoca PCR (Not Detect) Klebsiella pneumoniae (Not Detect) List. monocytogenes PCR (Not Detect) N. meningitidis (PCR) (Not Detect) Proteus species (PCR) (Not Detect) Serratia marcescens PCR (Not Detect) Staphylococcus sp PCR (Not Detect) Staph aureus (PCR) (Not Detect) mecA-Methicil Res Gene Streptococcus sp PCR (Not Detect) Group A Strep (PCR) (Not Detect) Strep agalactiae (PCR) (Not Detect) Strep pneumoniae (PCR) (Not Detect) P. aeruginosa (PCR) (Not Detect) Jet/B-Vanco Res Genes KPC-Carbap Res Gene PCR (Not Detect) Point of Care Testing Glucose POC 203 Imaging Data US - abdomen: Radiologist's Impression: Signed Patient: Emani Leiva MR#: [id number] : 1950 Acct:[id number] Age/Sex: 71 / F Date of Service: 07/21/22 Loc: ED Accession Number: [id number] ?? Procedure: US abdomen limited Ordering Provider: Melisa Koo D.O. PROCEDURE: US ABDOMEN LIMITED ? INDICATIONS:? RUQ - tylenol od ? TECHNIQUE:? Real-time focused scanning was performed of the abdomen, with image documentation.? ? COMPARISON:? [facility], , US ABDOMEN COMPLETE, 10/29/2020, 16:27. ? FINDINGS:? The liver is normal in echotexture and size.? The gallbladder is surgically absent.? The common bile duct is moderately prominent in caliber measuring up to 1.2 cm.? It measures 1.1 cm at the pancreatic head.? ? IMPRESSION:? Prior cholecystectomy.? Moderate prominence of the distal common duct considering cholecystectomy with the duct measuring up to 1.2 cm.? Please correlate with liver function tests for evidence of distal common duct obstruction.? However, within the liver no biliary distention is found. ? ? Dictated by: Anthony Jordan M.D. on 07/21/2022 at 22:11 ? ? MDM Narrative Medical decision making narrative: This is a 71-year-old female who arrives obtunded with glucose in the field a 40 that was given dextrose upon arrival in the rig as the medics were told they could not give dextrose through the PICC by their MPD. Patient's glucose improved, she has an abrasion on her head and reportedly was found on the floor by her and had a reported short down time. Head CT is negative C-spine does not show clear acute change, initial chest x-ray does not show fracture. Patient has spontaneous eye opening but is clearly obtunded. Initially patient was protecting airway, later she was not and was intubated for airway protection, appears to have a Tylenol overdose anion gap is 3rd with a CO2 less than 5, Tylenol level 274 which is trending down words 09/20/2054 but still quite elevated with an acute kidney injury baseline chronic kidney disease at 1.2 and is 3.6 initially today. Patient does have a white count, anemia which does not show significantly changed from priors. Lipase is elevated 5000 range, LFTs have elevation but bilirubin is negative so far, ammonia is 200 level. Patient time course of Tylenol ingestion is unknown high dose snack was initiated after initial Tylenol was found but she also ultimately had central line placed as had dropping pressures requiring pressors, as well as additional access for her neck, fentanyl Versed for sedation, nor epi for her hypotension and also received lactulose for her elevated ammonia which seems to be effective in terms of having stool output. Patient's hemoglobin has been 6.7 pre and post intubation with improvement of her PaO2 but otherwise minimal change appears to be a metabolic acidosis that patient is attempting to respiratory compensate. Spoke with poison control several times, spoke with the autism specialist who agrees with current plan. They had also recommend for omeprazole we had to have this obtained a stat over from an outside facility and was given initial 15 jackie per kg dose if were unable to transfer for potential dialysis for Tylenol they recommend going to giving the 2nd dose of 10 makes per kg at 12:00 p.m. poison control autism specialist agrees with current plan in terms of pressors, medications they recommend repeat labs at 4-6 hours, can repeat Tylenol tomorrow morning to see if we should continue neck and supportive measures. I also spoke with the patient's son he is the decision maker, he is not coming today but is aware patient could code and today. Patient signed out to Dr. Koo while attempting to find facility to transfer for hemodiaylsis for tylenol overdose. We have called all facilities regionally and have been unsuccessful in finding placement. Patient has had 3L of NS and LR total with 50mL out. GERARD Patient signed out to me by Dr. Kennedy if seen evaluated patient myself. Currently intubated on vasopressors concern for digital Tylenol overdose severe acidosis and unresponsiveness. The patient is found have an elevated Tylenol level of 274 which is decreasing currently on high-dose NAC. She surprisingly does have fairly normal liver enzymes id normal INR. Profound acidosis with a pH of 6.78 unable to have a stat osmolality which is a send out she is treated with omeprazole concern for other ingestions such as ethylene glycol Ethilon glycol and other things to cause significant anion gap. Her lactic acid is 3 which is also seeming to be improving. Rest of her drug screen is essentially negative she has benzodiazepines in her UDS only. 1999-I spoke with _ tele ICU order manager who agrees is to help provide some advice. He is up down patient's symptoms. At this time she recommend increasing the respiratory rate to about 28 to help with the acidosis. Recommend stopping the Versed switching over to propofol fall Levophed, continue to monitor urine output very closely may need bicarb drip if pH does not increase to greater than 7, recommends adding antibiotics for possible infection agrees with Zosyn also agrees with continuing to try and transfer will possibly need dialysis possible hepatology. 8:30 p.m. spoke with power distributor at [facility]. Updated patient's symptoms test results. Concern for Tylenol overdose however his slightly abnormal because liver enzymes bilirubin hand INR is not significantly elevated. I recommend looking for other source continue his neck at this time no need for any emergent a liver transplant. May still need dialysis. Consider transferring. But no need for emergent transfer at this time. 2129 Dr. Carroll-in his service make [facility] updated on patient's symptoms test results. At this time agrees with hepatology unlikely to be acute Tylenol overdose without significant elevation in liver enzymes is. PH is 7.1 no need for bicarb at this time. Does state that if does not start urinating will probably need dialysis. At this time states continue to look for transfer for ICU in hemodialysis accessibility however does not necessarily need liver transplant. Probable other ingestion as well. Also agrees with omeprazole. Patient pH is stable at 7.1. He she is given Zosyn empirically for infection. She is transferred over to propofol drip Versed has been taken off. She is urinating she remains on Levophed. Sickle bed shortage there is no beds. Patient was given 1 dose of omeprazole which was obtained from a neighboring hospital. They are unable to give us any more. We do not have any. She would be due for a 2nd dose at 5:00 a.m.. 0640-patient blood pressure has begun to drop. We Levophed maxed out, vasopressin added. Morning blood work continue patient's show acidosis on ABG lactic acid remains normal. Liver enzymes bilirubin also within normal range. Tylenol level is decreased clearly she is not clearing. I urine output is decreasing. She is not making 1 mL/hours. Creatinine is rising. Concern for co ingestion. Tylenol does not seem to be the primary source. Although still treating with Mucomyst. I have called to [facility] kindly giving us a bottle of fomepizole. I have spoken with poison Control who is agrees to continue with Tylenol treatment along with other treatment. Patient's sedation was shot off completely she actually did open her eyes but is very minimally responsive patient would benefit from CT scan of chest abdomen pelvis to look for anything else however she is not currently stable to go to CT. Patient's blood pressure dropped to 42, given 1 amp of bicarb and half amp dextrose Son called, left message. The patient was also given Lovenox is 1mg/kg, for elevated troponin. The troponin is thought to be due to hypotension and severe acidosis not likely to be from [facility] 07/22/22: Patient signed back out to myself. Overnight no epi was increased vasopressin was added, sedation was weaned patient opens eyes but continues to appear to be obtunded is not pulling at lines or bucking the vent she is breathing over the vent. Patient was started on Zosyn she has popped positive for blood cultures with Klebsiella and has Enterobacter positive on PCR, continued bicarb patient became quite hypotensive overnight. Second dose of omeprazole was obtained from outside facility. Toxicology was reconsulted there is concern about other source and that Tylenol overdose may not be a true overdose versus polysubstance versus other. Patient does appear to be covered appropriately for bacteremia, spoke with tell order manager today recommends transfer which we are attempting to get there is no availability although she is very appropriate for transfer. Patient has had almost 5 L of fluids since coming in, she is had about 125 out and is in uric since yesterday. She is likely to become fluid overload and become increasingly difficult to oxygenate. Recommended continuing with a bar carb drip, Solu-Cortef 300 mg stress dose followed by 100 mg t.i.d. agrees with goal to get a CT of available but patient appears too unstable at this time and recommends either transfer some place with dialysis or comfort measures. I completely agree with their assessment. Patient appears to have be touching go, she is had significant fluids and essentially aneuric. Patient has been up and down with pressure sometimes dropping as low as 60s over 40s but seems to improve with pressors. Has had occasional fluid bolus, continue with bicarb drip, patient has given short doses of fentanyl for sedation needs. Patient D-dimer is quite elevated, she is had using persistently from her central line site so did not start heparin but concern for emboli is present. SCDs were placed. Patient is being treated for septic shock, discussion about if there was a possible choledocholithiasis or similar possible cause we have been unable to get her to imaging she has not been stable enough but if she requires intervention we do not have abilities for ERCP, her troponin is trending upwards and she is still potentially needs dialysis none of which we have available. Spoke with Dr. Pizarro at [facility], Report Manager who kindly accepts patient for transfer. Critical Care Time <Cynthia Kennedy, DO - Last Filed: 07/23/22 12:09> Critical Care Time Critical Care Time: Yes Total Critical Care Time: 126 Attestation: The high probability of a clinically significant, sudden or life threatening deterioration of the [cardiac, pulm] system(s) required my full and direct attention, intervention and personal management. The aggregate critical care time was [] minutes. This time is in addition to time spent performing reported procedures but includes the following: [x] Data Review and interpretation [x] Patient assessment and monitoring of vital signs [x] Documentation [x] Medication orders and management Discharge Plan Departure [facility]position: [facility] Clinical Impression: Overdose on Tylenol, Metabolic acidosis, Acute respiratory failure with hypoxia, Acute on chronic kidney failure, Demand ischemia of myocardium, Hyperammonemia, Bacteremia, Septic shock Prescriptions: No Action methocarbamol 500 mg tablet 500 mg PO BID Qty: 60 2RF Rx Instructions: Pt to start taking after completing her TID prescription. oxycodone 10 mg tablet 10 mg PO Q6H PRN (Reason: pain) Qty: 120 0RF metoprolol tartrate 25 mg tablet 25 mg PO BID Qty: 180 1RF tizanidine 4 mg tablet 1 mg BID PRN (Reason: Pain (Scale Score 7-10)) Label Comments: TAKE ONE TABLET BY MOUTH TWICE DAILY NEEDED FOR MUSCLE SPASMS hydrocodone-acetaminophen 5-325 mg tablet 1 tab Q8HR PRN (Reason: Pain (Scale Score 7-10)) Label Comments: take 1 tablet by mouth every 8 hours as needed for pain pantoprazole 40 mg tablet,delayed release (DR/EC) 40 mg PO BID Label Comments: TAKE ONE TABLET BY MOUTH TWICE DAILY 30 minutes prior to meals oxycodone-acetaminophen [Percocet] 5-325 mg tablet 2 tab PO Q8H PRN (Reason: pain) Qty: 20 0RF gabapentin 300 mg Tablet 300 mg PO DAILY iron sucrose 200 mg iron/10 mL Solution 200 mg IV Q3D Qty: 100 0RF Rx Instructions: administer over 30 mins Referrals: Jairo Powers, [Primary Care Provider] -
[2022-07-21 13:24] LABS: Carbon Dioxide < 5 mmol/L (22-32)
[2022-07-21 13:25] LABS: HEMOLYSIS 31 (0-50)
[2022-07-21 13:29] LABS: Acetaminophen 274 ug/mL (10-30); Troponin I 0.109 ng/mL (0.01-0.034)
[2022-07-21 13:32] LABS: Creatine Kinase MB 4.38 ng/mL (<2.37)
[2022-07-21 13:34] LABS: Prolactin 23.8 ng/mL (3.0-18.6)
[2022-07-21 13:36] LABS: PCO2 ABG 13.1 mmHg (35-45); pH ABG 6.78 (7.35-7.45)
[2022-07-21 13:37] LABS: Base Excess ABG < -30.0 mmol/L (-2-2); HCO3 ABG 2 mmol/L (22-26); Oxygen Saturation ABG 61 % (95-100); PO2 ABG 58 mmHg (80-100); TCO2 ABG < 5 mmol/L (21-31)
[2022-07-21 13:39] LABS: Fractionated Inspired Oxygen 21
[2022-07-21 14:01] LABS: Appearance Urine UA CLOUDY; Bilirubin Urine UA NEGATIVE (NEGATIVE); Color Urine UA YELLOW; Glucose Urine UA TRACE g/dL (Negative); Ketones Urine UA NEGATIVE (NEGATIVE); Leukocyte Esterase Urine UA 2+ (NEGATIVE); Nitrite Urine UA NEGATIVE (Negative); Occult Blood Urine UA 3+ (Negative); Protein Urine UA 2+ (Negative); Urobilinogen Urine UA 0.2 E.U./dL (0.2)
--- NOTE | 2022-07-21 14:09 | PC.NURSE ---
called son Francis, and left message. Tia Tello (caregiver) contacted and will try to reach son.
[2022-07-21] MEDS: LACTATED RINGERS 1,000 ML 1000 ML IV (14:13)
[2022-07-21 14:16] LABS: Macrocytosis 3+
[2022-07-21 14:17] LABS: Anisocytosis 2+
[2022-07-21] MEDS: WATER IV (14:17)
[2022-07-21] MEDS: DEXTROSE 5% IV (14:17)
[2022-07-21] MEDS: ACETYLCYSTEINE IV (14:17)
--- NOTE | 2022-07-21 14:17 | PC.NURSE ---
No changes noted after administration of Narcan. Pt opening eyes and looking around, moving all extremities, weak. Pt not speaking, occasionally making moaning sounds. Not obeying commands. On arrival, pt wearing hospital band from 07/13/22 and EKG stickers noted on legs. Extensive right upper arm ecchymosis noted. Right radial pulse palpable, left radial pulse and brachial pulse to doppler. Capillary refill greater than 2 seconds, skim warm and dry.
[2022-07-21 14:19] LABS: Burr Cells 2+
[2022-07-21 14:20] LABS: Acanthocytes 1+
[2022-07-21 14:20] LABS: Bacteria Urine Many (>30); RBC Urine 10-30/HPF (0-5/HPF); Squamous Epithelial Cell Urine 0-1 /HPF (0-5/HPF); Transitional Epi Cells Urine 0-1/HPF (0-5/HPF); WBC Urine >100/HPF (0-5/HPF)
[2022-07-21 14:23] LABS: COVID19 -Nasal RAPID Negative (Negative); UR Morphine/Opiate cutoff 300 Negative (Negative); Ur Creatinine Normal (Normal); Ur Specific Gravity Normal (Normal); Urine Amphetamines Negative (Negative); Urine Barbiturates Negative (Negative); Urine Benzodiazepines Positive (Negative); Urine Cocaine Negative (Negative); Urine MDMA Negative (Negative); Urine Methadone Negative (Negative); Urine Methamphetamines Negative (Negative); Urine Oxycodone Negative (Negative); Urine Phencyclidine Negative (Negative); Urine Tetrahydrocannabinol Negative (Negative); Urine Tricyclic Antidepressant Negative (Negative); Urine pH Normal (Normal)
[2022-07-21 14:37] LABS: Thyroid Stimulating Hormone 1.04 uIU/mL (0.47-4.68)
[2022-07-21 14:43] LABS: Reflexed Lactate in 2 Hours Y
[2022-07-21] MEDS: LACTULOSE 20 GM/30 ML SOLUTION PR (14:43)
--- NOTE | 2022-07-21 14:51 | PC.NURSE ---
Pt grunting with breaths, Dr. Kennedy and RT called to bedside.
[2022-07-21 14:52] LABS: Lipase 5863 U/L (23-300)
[2022-07-21] MEDS: ETOMIDATE 2 MG/ML 10 ML VIAL 10 MG IV (15:05)
[2022-07-21] MEDS: SUCCINYLCHOLINE 200 MG/10 ML VIAL 150 MG IV (15:06)
--- NOTE | 2022-07-21 15:15 | DI.RAD.S_ITS ---
PROCEDURE: XR CHEST 1V INDICATIONS: post intubation TECHNIQUE: One view of the chest was acquired. COMPARISON: [facility], CT, CT CHEST WO CON, 06/21/2022, 14:06. [facility], CR, XR CLAVICLE LT, 07/11/2022, 12:15. [facility], CR, XR CHEST 1V, 07/21/2022, 13:46. FINDINGS: Surgical changes and devices: There is a stable left-sided central line, with the tip overlying the left subclavian vein. An endotracheal tube is seen, with the tip 1 cm above the rome. Thoracolumbar junction vertebroplasty cement can be seen. Lower thoracic spine compression deformity can be seen. Lungs and pleura: On this supine examination, no large pneumothorax or large pleural effusions are seen. Minimal patchy infiltrates are seen involving the left lower lung. Mediastinum: Mediastinal contours appear normal. Heart size is normal. Bones and chest wall: No suspicious bony lesions. The patient's known left medial clavicle fracture is not well seen. Overlying soft tissues appear unremarkable. IMPRESSION: The tip of the endotracheal tube is seen approximately 1 cm above the rome. Please consider withdrawal of 2 3 cm. Patchy left lower lung infiltrate can be seen. There is a stable left-sided central line. Additional findings: Lower thoracic spine compression deformity Vertebroplasty cement Left medial clavicle fracture not well seen. Dictated by: Darwin Long M.D. on 07/21/2022 at 14:30 Approved by: Darwin Long M.D. on 07/21/2022 at 14:32
[2022-07-21] MEDS: fentaNYL 100 MCG/2 ML INJ 50 MCG IV ×4 (15:23→18:18)
[2022-07-21] MEDS: MIDAZOLAM 50 MG in DEXTROSE 5% IN WATER 240 ML 25 MG IV (15:34)
[2022-07-21] MEDS: fentaNYL 1,000 MCG in DEXTROSE 5% IN WATER 230 ML 11.453 MCG IV (15:38)
--- NOTE | 2022-07-21 15:57 | PC.NURSE ---
Dr. Kennedy, RT, x3 RN at bedside. 1504: Timeout called. 1508: intubation, at 21 teeth, confirmed with co2 monitoring, pt tolerated well.
[2022-07-21 15:58] LABS: Base Excess ABG < -30.0 mmol/L (-2-2); Fractionated Inspired Oxygen 30; HCO3 ABG 3 mmol/L (22-26); Oxygen Saturation ABG 98 % (95-100); PO2 ABG 180 mmHg (80-100); TCO2 ABG < 5 mmol/L (21-31)
[2022-07-21 15:59] LABS: pH ABG 6.78 (7.35-7.45)
[2022-07-21] MEDS: SODIUM BICARB 8.4% SYRINGE 50 MEQ IV (16:07)
--- NOTE | 2022-07-21 16:21 | PC.NURSE ---
Pt noted to be pushing against vent with mouth, HR increased, Lorie LEE at bedside and medication drips increased.
[2022-07-21] MEDS: SODIUM BICARB 8.4% SYRINGE 100 MEQ IV (16:51)
--- NOTE | 2022-07-21 17:09 | DI.RAD.S_ITS ---
PROCEDURE: XR CHEST 1V INDICATIONS: Central line and OG placement TECHNIQUE: One view of the chest was acquired. COMPARISON: [facility], , XR CHEST 1V, 07/21/2022, 15:05. FINDINGS: Surgical changes and devices: Right IJ line in appropriate position. Additional devices unchanged. Lungs and pleura: Lungs are clear. No pleural effusions or pneumothorax. Mediastinum: Mediastinal contours appear normal. Heart size is normal. IMPRESSION: Right IJ line in appropriate position. Additional devices unchanged. Dictated by: Jason Castle M.D. on 07/21/2022 at 18:02 Approved by: Jason Castle M.D. on 07/21/2022 at 18:03
[2022-07-21] MEDS: NOREPINEPHRINE BITARTRATE/D5W 4 MG/250 ML PLAST..BAG 30 MG IV (17:19)
--- NOTE | 2022-07-21 17:50 | RT ---
ETT WITHDRAWN 1 CM TO 20 CM CARIE AT LIP, PER REQUEST BY DR. ARIAS.
--- NOTE | 2022-07-21 17:52 | DI.RAD.S_ITS ---
PROCEDURE: XR CHEST 1V INDICATIONS: recheck central line and vent placement TECHNIQUE: One view of the chest was acquired. COMPARISON: [facility], CR, XR CHEST 1V, 07/21/2022, 17:07. FINDINGS: Right IJ central line distal tip terminates in the mid SVC. The line is coiled in the right neck base. Left PICC, enteric, and endotracheal tubes in appropriate position. No pneumothorax. IMPRESSION: Right IJ central line is coiled in the right neck base with distal tip in the SVC. Appropriate position of enteric and endotracheal tubes and left PICC. Dictated by: Jason Castle M.D. on 07/21/2022 at 18:23 Approved by: Jason Castle M.D. on 07/21/2022 at 18:24
--- NOTE | 2022-07-21 18:05 | PC.NURSE ---
Spoke with multiple centers for transfer: [facility]: No beds, wait listed but would be days [facility]: Awaiting a call back [facility] Prov [facility]: no beds, no wait list. Called [facility]: No beds, no wait list Called [facility]: they have no suggestions for further facilities as pt is so complex except to continue with [facility]. He will be in their list as well.
[2022-07-21 18:20] LABS: PTT Partial Thromboplastin Tim 35 SECONDS (26-36)
[2022-07-21 18:21] LABS: Ammonia (NH3) 150 umol/L (9-30)
[2022-07-21 18:36] LABS: Alanine Aminotransferase 21 IU/L (<35); Albumin 2.6 g/dL (3.5-5.0); Albumin Globulin Ratio 1.1 (1.0-2.8); Alkaline Phosphatase 228 U/L (38-126); Aspartate Aminotransferase 32 IU/L (14-36); BUN Creatinine Ratio 21.1 (6-22); Bilirubin Total 0.8 mg/dL (0.2-1.3); Blood Urea Nitrogen 60 mg/dL (7-17); Chloride 108 mmol/L (98-107); Estimated Glomerular Filt Rate 17 mL/min (>60); Globulin 2.3 g/dL (1.7-4.1); Glucose 165 mg/dL (80-110); HEMOLYSIS < 15 (0-50); Sodium 140 mmol/L (137-145); Total Protein 4.9 g/dL (6.3-8.2)
[2022-07-21 18:51] LABS: Acetaminophen 255 ug/mL (10-30); Carbon Dioxide < 5 mmol/L (22-32); Troponin I 0.303 ng/mL (0.01-0.034)
--- NOTE | 2022-07-21 18:54 | PC.NURSE ---
1814: Pt noted attempting to open eyes, breathing rate increased, and biting at vent tube. Notified Dr. Koo and discussed parameters to increase fentanyl drip and midazolam drip to meet pt comfort/desired sedation. Changes made and pt continuously assessed, pt currently with eyes closed, breathing with vent.
[2022-07-21 18:57] LABS: INR 1.2 (0.9-1.3); Prothrombin Time 13.4 SECONDS (10.1-12.7)
[2022-07-21] MEDS: FOMEPIZOLE IV (18:58)
[2022-07-21] MEDS: SODIUM CHLORIDE 0.9% IV (18:58)
[2022-07-21 18:59] LABS: Add Manual Diff / Slide Review NO; Basophils Absolute Auto 0 /uL (0-100); Basophils Percent Auto 0.3 % (0-2); Eosinophils Absolute Auto 0 /uL (0-450); Hematocrit 26.5 % (36-46); Hemoglobin 8.7 g/dL (12.0-16.0); Lymphocytes Absolute Auto 600 /uL (1100-4500); Lymphocytes Percent Auto 3.8 % (25-40); Mean Corpuscular HGB Conc 32.8 % (30-36); Mean Corpuscular Hemoglobin 37.3 PG (26-34); Mean Corpuscular Volume 113.5 fL (80-100); Monocytes Absolute Auto 200 /uL (0-900); Monocytes Percent Auto 1.2 % (3-14); Neutrophils Absolute Auto 15900 /uL (1500-7000); Neutrophils Percent Auto 94.7 % (50-75); Platelet Count 333 X10^3/uL (150-400); Red Blood Cell Count 2.34 X10^6/uL (4.0-5.2); Red Cell Distribution Width 19.2 % (11.6-14.8); White Blood Cell Count 16.8 X10^3/uL (4.5-11.0)
--- NOTE | 2022-07-21 19:06 | PC.NURSE ---
Pt resting with eyes closed, pupils 2mm, reactive to light. ET tube at 20 at the lip, OG tube to LIT with dark yellow drainage. Pt in normal sinus rhythm on tele. Breath sounds clear in all bases. Abdomen flat, bowel sounds present. Centeno catheter in place, urine is yellow and clear. Skin is warm and dry. Bilat radial pulses present. Right lower extremity dorslalis pedis and posterior tibial pulses present. Left posterior tibial pulse present, dorsalis pedis not, attempted doppler, Dr. Kennedy notified.
[2022-07-21] MEDS: MIDAZOLAM 50 MG in DEXTROSE 5% IN WATER 240 ML 68.7 MG IV (20:25)
[2022-07-21 20:31] LABS: Fractionated Inspired Oxygen 30; HCO3 ABG 5 mmol/L (22-26); Oxygen Saturation ABG 99 % (95-100); PCO2 ABG 15.4 mmHg (35-45); PO2 ABG 153 mmHg (80-100); TCO2 ABG 5 mmol/L (21-31); pH ABG 7.12 (7.35-7.45)
--- NOTE | 2022-07-21 20:48 | PM.EICU.INT ---
Teleintensivist Intervention Date/Time Was camera activated?: No Issue(s) Addressed Issue(s): Shock/hypotension Intervention(s) :: Received call from ER physician for recommendations for patient. As patient is in ER, I am unable to see patient and provide formal recommendations. However, given patient boarding in ER while pending transfer to outside facility and patient's current critical status, I received report from ER physician and provided general recs to assist. Patient with reported Acute Tylenol overdose who was found cold and down - currently with shock, multiorgan failure, intubated, severe acidosis with pH <7. Patient on NAC drip, Levophed. Discussed recommendations to increase minute ventilation on vent (RR was set at 20), ensure MAP goal >65 with pressor, start Na bicarb drip until pH improving, favor Fent/Prop over Versed, consider initiation of empiric antibiotics, monitor BG levels and start D5/D10 if persistent hypoglycemia. Recommended discussion with [facility] to see if patient is eligible; if not, favor transfer to facility with CRRT capabilities.
[2022-07-21] MEDS: PIPERACILLIN/TAZO 4.5 GM in SODIUM CHLORIDE 0.9% 100 ML IV (20:51)
[2022-07-21] MEDS: propofoL 1,000 MG/100 ML VIAL 5.498 MG IV (20:58)
[2022-07-21] MEDS: LACTATED RINGERS 1,000 ML 100 ML IV (21:23)
--- NOTE | 2022-07-21 21:30 | DI.US.S_ITS ---
PROCEDURE: US ABDOMEN LIMITED INDICATIONS: RUQ - tylenol od TECHNIQUE: Real-time focused scanning was performed of the abdomen, with image documentation. COMPARISON: [facility], US, US ABDOMEN COMPLETE, 10/29/2020, 16:27. FINDINGS: The liver is normal in echotexture and size. The gallbladder is surgically absent. The common bile duct is moderately prominent in caliber measuring up to 1.2 cm. It measures 1.1 cm at the pancreatic head. IMPRESSION: Prior cholecystectomy. Moderate prominence of the distal common duct considering cholecystectomy with the duct measuring up to 1.2 cm. Please correlate with liver function tests for evidence of distal common duct obstruction. However, within the liver no biliary distention is found. Dictated by: Anthony Jordan M.D. on 07/21/2022 at 22:11 Approved by: Anthony Jordan M.D. on 07/21/2022 at 22:12
--- NOTE | 2022-07-21 21:52 | PC.NURSE ---
Spoke w/ Rahul Rp: Fomepizole is not available. [facility] sold us a single dose.
[2022-07-21 23:15] LABS: INR 1.4 (0.9-1.3); Prothrombin Time 15.7 SECONDS (10.1-12.7)
[2022-07-21 23:18] LABS: Ammonia (NH3) 64 umol/L (9-30)
[2022-07-21 23:21] LABS: HEMOLYSIS < 15 (0-50)
[2022-07-21 23:22] LABS: Alanine Aminotransferase 24 IU/L (<35); Albumin 2.9 g/dL (3.5-5.0); Albumin Globulin Ratio 1.1 (1.0-2.8); Alkaline Phosphatase 214 U/L (38-126); Aspartate Aminotransferase 36 IU/L (14-36); BUN Creatinine Ratio 18.3 (6-22); Bilirubin Total 0.8 mg/dL (0.2-1.3); Blood Urea Nitrogen 60 mg/dL (7-17); Calcium 6.7 mg/dL (8.4-10.2); Chloride 105 mmol/L (98-107); Estimated Glomerular Filt Rate 15 mL/min (>60); Globulin 2.6 g/dL (1.7-4.1); Glucose 136 mg/dL (80-110); Potassium 3.2 mmol/L (3.4-5.1); Sodium 140 mmol/L (137-145); Total Protein 5.5 g/dL (6.3-8.2)
[2022-07-21 23:23] LABS: Acetaminophen 188 ug/mL (10-30)
[2022-07-21 23:44] LABS: Fractionated Inspired Oxygen 30; HCO3 ABG 5 mmol/L (22-26); Oxygen Saturation ABG 99 % (95-100); PO2 ABG 167 mmHg (80-100); TCO2 ABG < 5 mmol/L (21-31)
[2022-07-21 23:45] LABS: PCO2 ABG 14.5 mmHg (35-45)
[2022-07-21 23:46] LABS: Carbon Dioxide 5 mmol/L (22-32); Lipase 3270 U/L (23-300)
[2022-07-22] VITALS (210 sets, daily range): BP systolic 42–213; BP diastolic 14–131; PULSE 80–145; RESP 13–42; TEMP 36.4–38; O2SAT 99–100
--- NOTE | 2022-07-22 | PC.NURSE ---
pt lying on stretcher intubated with #7 ET tube secured @ 20cm at the lip on the vent managed by RT, OG tube in place draining dark green/brown liquid on intermittent suction, infusions of Levophed @ 8 mcg/mn, Propofol @ 10 mcg/kg/mn, Fentanyl @ 2.5 mcg/kg/hr and LR @ 100 ml/hr infusing in right IJ and mucomyst @ 67 ml/hr infusing per PICC in the LUE, pt has temp you in and placed to sensor draining clear yellow urine, BBS coarse
[2022-07-22] MEDS: ENOXAPARIN 40 MG/0.4 ML SYRINGE 45 MG SUBCUT (00:24)
[2022-07-22] MEDS: NOREPINEPHRINE BITARTRATE/D5W 4 MG/250 ML PLAST..BAG 30 MG IV (00:34)
[2022-07-22] MEDS: fentaNYL 1,000 MCG in DEXTROSE 5% IN WATER 230 ML 28.633 MCG IV (01:20)
--- NOTE | 2022-07-22 01:30 | PC.NURSE ---
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 [facility] the following places w/ following responses[facility], on their waiting list. Spoke to [facility]. Faxed over face sheet [facility]: 0104 absolutely no beds, lots of boarding at their facility. Asked to put patient on waiting list. Put on waiting list and sent face sheet. [facility]: 0105 Spoke to [facility]? No beds. 36 boarding in their ER. Have lots on their waiting list and can't take anymore. [facility]: 0110 Spoke to [facility]. Unable to take any transfers. Wished us luck [facility]el[facility] Cal[facility]: Spoke to [facility] at 0120. They can't take any more transfers. They have to beds. Took some basic info (that the patient was an ICU patient) for their own tracking. Called [facility] and left a message.
[2022-07-22] MEDS: PIPERACILLIN/TAZO 3.375 GM in SODIUM CHLORIDE 0.9% 100 ML IV ×2 (02:14→13:49)
[2022-07-22 04:55] LABS: Alanine Aminotransferase 23 IU/L (<35); Albumin 2.8 g/dL (3.5-5.0); Alkaline Phosphatase 177 U/L (38-126); Aspartate Aminotransferase 31 IU/L (14-36); BUN Creatinine Ratio 17.3 (6-22); Bilirubin Total 0.7 mg/dL (0.2-1.3); Blood Urea Nitrogen 62 mg/dL (7-17); Calcium 6.7 mg/dL (8.4-10.2); Chloride 102 mmol/L (98-107); Estimated Glomerular Filt Rate 13 mL/min (>60); Globulin 2.7 g/dL (1.7-4.1); Glucose 89 mg/dL (80-110); HEMOLYSIS < 15 (0-50); Potassium 3.2 mmol/L (3.4-5.1); Sodium 138 mmol/L (137-145); Total Protein 5.5 g/dL (6.3-8.2)
--- NOTE | 2022-07-22 04:57 | PC.NURSE ---
pt continues unresponsive to stimuli maintaining sedation as charted earlier, Levophed increased to 10 mcg/min d/t low bp
[2022-07-22 05:14] LABS: INR 1.6 (0.9-1.3); Prothrombin Time 18.3 SECONDS (10.1-12.7)
[2022-07-22 05:16] LABS: Lipase 2860 U/L (23-300)
[2022-07-22 05:18] LABS: Ammonia (NH3) 50 umol/L (9-30)
[2022-07-22 05:19] LABS: Carbon Dioxide < 5 mmol/L (22-32)
[2022-07-22 05:20] LABS: Acetaminophen 117 ug/mL (10-30)
[2022-07-22 05:37] LABS: Lactate (Lactic Acid) 1.3 mmol/L (0.7-2.1)
[2022-07-22] MEDS: VASOPRESSIN 40 UNIT in SODIUM CHLORIDE 0.9% 100 ML IV (05:52)
[2022-07-22 05:59] LABS: HCO3 ABG 5 mmol/L (22-26); PCO2 ABG 15.7 mmHg (35-45); PO2 ABG 163 mmHg (80-100); TCO2 ABG < 5 mmol/L (21-31)
[2022-07-22 06:00] LABS: Fractionated Inspired Oxygen 30; Oxygen Saturation ABG 99 % (95-100); pH ABG 7.06 (7.35-7.45)
[2022-07-22] MEDS: NOREPINEPHRINE BITARTRATE/D5W 4 MG/250 ML PLAST..BAG 67.5 MG IV (06:19)
[2022-07-22] MEDS: SODIUM BICARB 8.4% SYRINGE 50 MEQ IV (06:35)
[2022-07-22] MEDS: DEXTROSE 50 % IN WATER 25 GM/50 ML SYRINGE IV (06:35)
--- NOTE | 2022-07-22 06:43 | PC.NURSE ---
pt's bp noted 60/28 and rechecked at 42/19, Dr Koo in room vasopressin increased to 0.04 units and levophed increased to 20 mcg/mn, pt given 1/2 am D50W and [address] Koo and pt opened her eyes and bp increased to 196/81
--- NOTE | 2022-07-22 06:59 | PC.NURSE ---
have been at bedside titrating medications since 0500, only response from pt was the one time she opened her eyes after the bicarb since that occured at 0635 pt is no longer responding
[2022-07-22 07:13] LABS: Creatine Kinase 173 U/L (30-135)
[2022-07-22 07:45] LABS: Acinetobacter baumannii Not Detected (Not Detect); Candida albicans Not Detected (Not Detect); Candida glabrata Not Detected (Not Detect); Candida krusei Not Detected (Not Detect); Candida parapsilosis Not Detected (Not Detect); Candida tropicalis Not Detected (Not Detect); E. coli Not Detected (Not Detect); Enterobacter cloacae complex Not Detected (Not Detect); Enterobacteriaceae species Detected (Not Detect); Enterococcus species Not Detected (Not Detect); Haemophilus influenzae Not Detected (Not Detect); KPC (carbapenem-resist gene) Not Detected (Not Detect); Listeria monocytogenes Not Detected (Not Detect); Neisseria meningitidis Not Detected (Not Detect); Proteus species Not Detected (Not Detect); Pseudomonas aeruginosa Not Detected (Not Detect); Serratia marcescens Not Detected (Not Detect); Staphylococcus species Not Detected (Not Detect); Streptococcus agalactiae (Gr B Not Detected (Not Detect); Streptococcus pneumonia Not Detected (Not Detect); Streptococcus pyogenes (Gr A) Not Detected (Not Detect); Streptococcus species Not Detected (Not Detect)
[2022-07-22] MEDS: FOMEPIZOLE IV (08:26)
[2022-07-22] MEDS: SODIUM CHLORIDE 0.9% IV (08:26)
[2022-07-22 08:49] LABS: Fractionated Inspired Oxygen 30; HCO3 ABG 6 mmol/L (22-26); Oxygen Saturation ABG 99 % (95-100); PO2 ABG 149 mmHg (80-100); TCO2 ABG 6 mmol/L (21-31); pH ABG 7.13 (7.35-7.45)
[2022-07-22 08:58] LABS: Procalcitonin 91.3 ng/mL (<0.5)
[2022-07-22] MEDS: LACTATED RINGERS 1,000 ML 500 ML IV (09:05)
[2022-07-22] MEDS: NOREPINEPHRINE BITARTRATE/D5W 4 MG/250 ML PLAST..BAG 75 MG IV (09:32)
--- NOTE | 2022-07-22 09:49 | PC.NURSE ---
Endotracheal tube placement confirmed at 20. Breath sounds clear bilaterally, +1 generalized edema. Green gastric output noted from OG tube. Minimal urine output, provider aware. Continuing to monitor pt.
[2022-07-22 10:30] LABS: Add Manual Diff / Slide Review YES; Hematocrit 31.1 % (36-46); Hemoglobin 10.5 g/dL (12.0-16.0); Mean Corpuscular HGB Conc 33.8 % (30-36); Mean Corpuscular Hemoglobin 37.9 PG (26-34); Mean Corpuscular Volume 112.1 fL (80-100); Platelet Count 369 X10^3/uL (150-400); Red Blood Cell Count 2.77 X10^6/uL (4.0-5.2); Red Cell Distribution Width 18.6 % (11.6-14.8); White Blood Cell Count 8.7 X10^3/uL (4.5-11.0)
[2022-07-22 10:31] LABS: INR 1.6 (0.9-1.3); Prothrombin Time 18.7 SECONDS (10.1-12.7)
[2022-07-22] MEDS: HYDROCORTISONE 100 MG/2 ML VIAL 300 MG IV (10:32)
[2022-07-22 10:34] LABS: PTT Partial Thromboplastin Tim 53 SECONDS (26-36)
[2022-07-22 10:35] LABS: Alanine Aminotransferase 23 IU/L (<35); Albumin 2.8 g/dL (3.5-5.0); Alkaline Phosphatase 190 U/L (38-126); Aspartate Aminotransferase 35 IU/L (14-36); BUN Creatinine Ratio 17.2 (6-22); Bilirubin Total 0.7 mg/dL (0.2-1.3); Blood Urea Nitrogen 60 mg/dL (7-17); Calcium 6.7 mg/dL (8.4-10.2); Chloride 102 mmol/L (98-107); Estimated Glomerular Filt Rate 14 mL/min (>60); Globulin 2.9 g/dL (1.7-4.1); Glucose 97 mg/dL (80-110); HEMOLYSIS < 15 (0-50); Potassium 3.1 mmol/L (3.4-5.1); Sodium 139 mmol/L (137-145); Total Protein 5.7 g/dL (6.3-8.2)
[2022-07-22 10:39] LABS: Acetaminophen 70 ug/mL (10-30); Carbon Dioxide 6 mmol/L (22-32)
[2022-07-22 10:42] LABS: Lipase 2033 U/L (23-300)
[2022-07-22] MEDS: SODIUM BICARB 8.4% VIAL 150 MEQ in DEXTROSE 5% WATER 1,000 ML IV (10:44)
--- NOTE | 2022-07-22 11:07 | PC.NURSE ---
At 0730 pt right jugular central line site was saturated with blood, provider aware and surgifoam applied and pressure dressing placed. At 1100 pt's dressing appears to be saturated again. Site cleaned and monitored.
[2022-07-22] MEDS: POTASSIUM CHLORIDE IN WATER 10 MEQ/100 ML PIGGYBACK 100 MEQ IV ×4 (11:22→14:34)
--- NOTE | 2022-07-22 11:43 | PC.NURSE ---
Pt Levophed gtt decreased to 18mcg/min, continuing to monitor BPs. HR intermittently elevated to 140s, currently 125, Dr. Kennedy aware. Pt appears comfortable with no obvious signs of pain. Will continue to monitor for pain.
[2022-07-22 11:46] LABS: Neutrophils Absolute Manual 6873 /uL (3000-5900); Nucleated Red Blood Cells 13 #/Diff; Total Cells Counted 100
[2022-07-22 11:47] LABS: Acanthocytes 1+; Burr Cells 1+; Macrocytosis 2+; Schistocytes 1+
--- NOTE | 2022-07-22 12:35 | PC.NURSE ---
Pt now opening eyes to sound, does not follow commands, continuing to titrate levo down.
[2022-07-22 12:43] LABS: D Dimer 14299 ng/ml (<500)
[2022-07-22] MEDS: NOREPINEPHRINE BITARTRATE/D5W 4 MG/250 ML PLAST..BAG 37.5 MG IV (13:27)
--- NOTE | 2022-07-22 14:14 | PC.NURSE ---
Around 1400 pts BP dropped to 42/26. Dr. Kennedy at bedside. Levo bumped back up to 20mcg, verbal order to give epi 1mg
[2022-07-22] MEDS: fentaNYL 100 MCG/2 ML INJ 50 MCG IV ×3 (14:28→16:07)
[2022-07-22] MEDS: NOREPINEPHRINE BITARTRATE/D5W 4 MG/250 ML PLAST..BAG 93.75 MG IV (15:59)
--- NOTE | 2022-07-22 16:11 | PM.EICU.INT ---
Teleintensivist Intervention Date/Time Was camera activated?: No Issue(s) Addressed Issue(s): Abnormal labs, Resp. Distress/Ventilator management and Shock/hypotension Intervention(s) :: called be ED physician to discuss pt this am. pt has remained in ED overnight awaiting transfer to a higher level of care. remains intubated in MODS, severe acidosis with worsening renal failure bcx growing gram -ve bacteria. suggested -vent support -bicarb drip and pushes prn, needs crrt -broad spec abx -[facility] CT if able -stress dose steroids -check lipid panel, if elevated may need plex -transfer as soon as bed is available Plan discussed with: Physician/provider Name(s): Dr. Kennedy
[2022-07-22] MEDS: ACETYLCYSTEINE IV (16:21)
[2022-07-22] MEDS: DEXTROSE 5% IV (16:21)
[2022-07-22] MEDS: WATER IV (16:21)
--- NOTE | 2022-07-22 16:23 | PC.NURSE ---
Fentanyl gtt and propofol gtt [facility]. Gtts were not started yet. See MAR
[2022-07-23 15:13] LABS: Osmolality, Serum 326 mOsmol/kg (280-301)
== END 2022-07-22 17:16 | disposition short-term general hospital (02) ==
PROVIDERS: Emergency Medicine; Emergency Provider Emergency Medicine; PCP Family Medicine
DX: T39.1X1A Poisoning by 4-Aminophenol derivatives, accidental (unintentional), initial encounter (principal); J96.01 Acute respiratory failure with hypoxia; N17.9 Acute kidney failure, unspecified; I24.8 Other forms of acute ischemic heart disease; E72.20 Disorder of urea cycle metabolism, unspecified; A41.9 Sepsis, unspecified organism; E87.20 Acidosis, unspecified; Z79.899 Other long term (current) drug therapy; Z20.822 Contact with and (suspected) exposure to COVID-19
CPT/HCPCS: 31500; 36569; 36600; 70450; 71045; 72125; 76705; 80053; 80305; 80320; 80329; 81001; 82140; 82550; 82553; 82805; 82962; 83605; 83690; 83930; 84145; 84146; 84443; 84484; 85007; 85025; 85379; 85610; 85730; 87040; 87077; 87086; 87150; 87186; 87635; 93005; 93010; 94003; 94799; 96365; 96366; 96368; 96372; 96375; 96376; 99285; 99291; 99292; C9803; G0480; J0132; J0330; J1451; J1650; J1720; J2250; J2310; J2543; J2704; J3010

== ENCOUNTER 2022-09-19 23:16 | Inpatient (IN) | payer MEDICARE, MEDICAID, SELFPAY ==
[2022-07-10 10:21] VITALS: BMI 15.7
[2022-07-22 07:16] VITALS: RESP 28
[2022-07-22 14:33] VITALS: PULSE 127; RESP 38; O2SAT 100
[2022-09-19 23:23] VITALS: BP 112/69; PULSE 78; RESP 18; TEMP 36.2; O2SAT 99
[2022-09-19 23:45] LABS: Add Manual Diff / Slide Review NO; Basophils Absolute Auto 100 /uL (0-100); Basophils Percent Auto 0.7 % (0-2); Eosinophils Absolute Auto 500 /uL (0-450); Eosinophils Percent Auto 4.9 % (2-4); Hematocrit 29.5 % (36-46); Hemoglobin 9.6 g/dL (12.0-16.0); Lymphocytes Absolute Auto 2700 /uL (1100-4500); Lymphocytes Percent Auto 26.2 % (25-40); Mean Corpuscular HGB Conc 32.5 % (30-36); Mean Corpuscular Hemoglobin 34.1 PG (26-34); Mean Corpuscular Volume 104.9 fL (80-100); Monocytes Absolute Auto 500 /uL (0-900); Monocytes Percent Auto 4.8 % (3-14); Neutrophils Absolute Auto 6400 /uL (1500-7000); Neutrophils Percent Auto 63.4 % (50-75); Platelet Count 470 X10^3/uL (150-400); Red Blood Cell Count 2.81 X10^6/uL (4.0-5.2); Red Cell Distribution Width 17.3 % (11.6-14.8); White Blood Cell Count 10.2 X10^3/uL (4.5-11.0)
[2022-09-20] VITALS (56 sets, daily range): BP systolic 72–201; BP diastolic 42–115; PULSE 68–143; RESP 6–20; TEMP 36.6; O2SAT 92–100; BMI 21.1
[2022-09-20] MEDS: SODIUM CHLORIDE 0.9% 1,000 ML 1000 ML IV ×2 (00:14→05:50)
[2022-09-20 00:23] LABS: INR 1.2 (0.9-1.3)
[2022-09-20 00:25] LABS: PTT Partial Thromboplastin Tim 40 SECONDS (26-36)
[2022-09-20 00:26] LABS: Acetaminophen 37 ug/mL (10-30); Alanine Aminotransferase 38 IU/L (<35); Albumin 3.5 g/dL (3.5-5.0); Alkaline Phosphatase 348 U/L (38-126); Aspartate Aminotransferase 30 IU/L (14-36); BUN Creatinine Ratio 26.8 (6-22); Bilirubin Total 0.3 mg/dL (0.2-1.3); Blood Urea Nitrogen 34 mg/dL (7-17); Carbon Dioxide 15 mmol/L (22-32); Chloride 108 mmol/L (98-107); Creatine Kinase 40 U/L (30-135); Estimated Glomerular Filt Rate 45 mL/min (>60); Ethanol (ETOH) < 10 mg/dL; Globulin 3.4 g/dL (1.7-4.1); Glucose 103 mg/dL (80-110); HEMOLYSIS < 15 (0-50); Potassium 4.1 mmol/L (3.4-5.1); Salicylate < 1.0 mg/dL (<20); Sodium 135 mmol/L (137-145); Total Protein 6.9 g/dL (6.3-8.2)
[2022-09-20 00:39] LABS: Troponin I 0.058 ng/mL (0.01-0.034)
[2022-09-20 00:44] LABS: Procalcitonin 20.1 ng/mL (<0.5)
--- NOTE | 2022-09-20 00:46 | DI.CT.S_ITS ---
PROCEDURE: CT HEAD/BRAIN WO CON INDICATIONS: decreased mental status TECHNIQUE: Noncontrast 4.5 mm thick angled axial sections acquired from the foramen magnum to the vertex, with coronal and sagittal reformats. For radiation dose reduction, the following was used: automated exposure control, adjustment of mA and/or kV according to patient size. COMPARISON: [facility], CT, CT HEAD/BRAIN WO CON, 07/21/2022, 12:36. FINDINGS: Image quality: Excellent. CSF spaces: Basal cisterns are patent. No extra-axial fluid collections. The ventricles are symmetric in size and shape. There is mild cerebral volume loss, with resultant sulcal prominence as well as prominence of the frontal extra-axial spaces. Brain: No intracranial hemorrhage, mass, or mass effect. There are subcortical, periventricular and deep white matter hypodensities consistent with chronic small vessel ischemic changes. The eduardo-white matter junction appears preserved. Skull and face: Calvarium and visualized facial bones appear intact, without suspicious lesions. Sinuses: Visualized sinuses and mastoids are clear. IMPRESSION: 1. No acute intracranial abnormality. 2. Mild cerebral volume loss. Dictated by: Festus Moreira M.D. on 09/20/2022 at 1:19 Approved by: Festus Moreira M.D. on 09/20/2022 at 1:20
[2022-09-20 00:59] LABS: Adenovirus Not Detected (Not Detect); B. parapertussis Not Detected (Not Detecte); Bordetella pertussis Not Detected (Not Detecte); Chlamydophila pneumoniae Not Detected (Not Detect); Coronavirus 229E Not Detected (Not Detect); Coronavirus HKU1 Not Detected (Not Detect); Coronavirus NL 63 Not Detected (Not Detect); Coronavirus OC43 Not Detected (Not Detect); Human Metapneumovirus Not Detected (Not Detect); Human Rhinovirus/Enterovirus Not Detected (Not Detect); Influenza A Not Detected (Not Detect); Influenza B Not Detected (Not Detect); Mycoplasma pneumoniae Not Detected (Not Detect); Parainfluenza Virus 1 Not Detected (Not Detect); Parainfluenza Virus 2 Not Detected (Not Detect); Parainfluenza Virus 3 Not Detected (Not Detect); Parainfluenza Virus 4 Not Detected (Not Detect); Respiratory Syncytial Virus Not Detected (Not Detect); SARS- CoV-2 Not Detected (Not Detecte)
[2022-09-20 01:29] LABS: Appearance Urine UA CLEAR; Bilirubin Urine UA NEGATIVE (NEGATIVE); Color Urine UA YELLOW; Glucose Urine UA NEGATIVE (Negative); Ketones Urine UA NEGATIVE (NEGATIVE); Leukocyte Esterase Urine UA NEGATIVE (NEGATIVE); Nitrite Urine UA NEGATIVE (Negative); Occult Blood Urine UA NEGATIVE (Negative); Protein Urine UA NEGATIVE (Negative); Urobilinogen Urine UA 0.2 E.U./dL (0.2)
--- NOTE | 2022-09-20 01:34 | DI.RAD.S_ITS ---
PROCEDURE: XR CHEST 1V INDICATIONS: fever TECHNIQUE: One view of the chest was acquired. COMPARISON: [facility], CR, XR CHEST 1V, 07/21/2022, 17:56. FINDINGS: Surgical changes and devices: None. Lungs and pleura: Lungs are clear. No pleural effusions or pneumothorax. Mediastinum: Mediastinal contours appear normal. Heart size is normal. Bones and chest wall: No suspicious bony lesions. Overlying soft tissues appear unremarkable. IMPRESSION: 1. No acute cardiopulmonary disease. Dictated by: Festus Moreira M.D. on 09/20/2022 at 1:54 Approved by: Festus Moreira M.D. on 09/20/2022 at 1:54
--- NOTE | 2022-09-20 01:35 | ED_ITS ---
HPI - Sepsis General Chief Complaint: Weakness Mode of arrival: EMS Source: patient and EMS Limitations: no limitations Evaluation Sepsis Screen: No Definite Risk Sepsis Infection Criteria Present: None Narrative: Patient is 71-year-old female history of recent sepsis with Klebsiella bacteremia and UTI requiring intubation vasopressors and ICU support in July, COPD, hypertension, anemia, mild CKD presents today with decreasing mental status. reports that he is not been well couple of days. Son is the 1 at bedside. She was treated in the ICU [facility] July for severe sepsis and was later discharged home. She is able to answer some questions she denies any pain she overall is very thin cachectic and weak. She denies any chest pain abdominal pain nausea vomiting. She denies taking any extra medication. Review of Systems Review of Systems ROS Unobtainable: All systems reviewed & are unremarkable except as noted in HPI and below Patient History Medical History Acute CT Anxiety Arthritis C. difficile colitis Chronic pain Closed left clavicular fracture Colitis Compression fracture of L1 vertebra (~07/2019) COPD (chronic obstructive pulmonary disease) CVA (cerebral vascular accident) Depression Diarrhea DJD (degenerative joint disease) Fibromyalgia Fracture, tibia GI bleeding History of osteomyelitis History of recurrent UTIs HLD (hyperlipidemia) Hypertension Hypertension Insomnia Iron (Fe) deficiency anemia Left foot drop Left rib fracture Lumbar compression fracture (02/26/19) Migraines Multiple fractures Nephrolithiasis Neuropathy Numbness and tingling Osteoporosis Osteoporosis Peptic ulcer disease Pre-diabetes Radius fracture (08/30/17) Renal disease Septic shock Stage 3 chronic kidney disease Surgical History H/O: hysterectomy History of surgery Hx of appendectomy Hx of cholecystectomy Hx of elbow surgery Hx of kyphoplasty (~2013) Hx of kyphoplasty (04/28/19) Hx of kyphoplasty (07/28/19) Hx of tonsillectomy Status post epidural steroid injection (03/25/19) Family History Mother No known health problems COPD (chronic obstructive pulmonary disease) Father No known health problems Social History household members: children and other Smoking Status: Former smoker alcohol intake: current Smoking Status: Former smoker alcohol intake frequency: holidays/special occasions only Substance Use Type: does not use and former substance user Exam Initial Vital Signs Initial Vital Signs: Vital Signs Temperature 97.2 F L 09/19/22 23:23 Pulse Rate 78 09/19/22 23:23 Respiratory Rate 18 09/19/22 23:23 Blood Pressure 112/69 09/19/22 23:23 Pulse Oximetry 99 09/19/22 23:23 Oxygen Delivery Method 09/19/22 23:23 GENERAL: Weeks and chronically ill 71-year-old female appears older than stated age HEENT: Head atraumatic,EOMI, pupils reactive, face symmetric, moist mucous mem branes CARDIOVASCULAR: Regular rate and rhythm without murmurs, rubs or gallops. RESPIRATORY: Breath sounds equal bilaterally, no wheezes rales or rhonchi. ABDOMEN: Soft, nontender. Normoactive bowel sounds all 4 quadrants. No guarding or rebound. EXTREMITIES: Normal range of motion, no clubbing or edema. Neurovascularly intact NEUROLOGICAL: Diffusely weak all over awake alert oriented to person and place SKIN: Warm, dry, no laceration, no petechiae, no rashes or lesions. Procedures Lumbar Puncture Patient Position: upright Skin Prep: Povidone-Iodine 1% Local Anesthetic: lidocaine 1% Amount of anesthesia used (mL): 3 Spinal Needle Gauge: 22G Interspace Used: L3-L4 Complications: none and Need to have other Practitioner Attempt Course Orders Ordered: Heparin Sodium (Porcine) (Heparin 5,000 Unit/Ml Vial) 5,000 unit SUBCUT BID [facility] Last Admin: 09/20/22 21:28 Dose: 5,000 unit Documented By: WIL Sodium Bicarbonate 150 meq/ (Dextrose) 1,150 mls @ 100 mls/hr IV CONT [facility] Last Admin: 09/20/22 17:55 Dose: 150 mls/hr Documented By: Infusion: 09/20/22 17:53 Dose: 0 mls/hr Documented By: Admin: 09/20/22 09:08 Dose: 150 mls/hr Documented By: Cefepime HCl 2 gm/ Sodium (Chloride) 100 mls @ 200 mls/hr IV Q12H [facility] Last Infusion: 09/20/22 21:18 Dose: 0 mls/hr Documented By: Admin: 09/20/22 19:53 Dose: 200 mls/hr Documented By: Infusion: 09/20/22 13:20 Dose: 0 mls/hr Documented By: Admin: 09/20/22 11:34 Dose: 200 mls/hr Documented By: SRINATH Vancomycin HCl (Vancomycin) 750 mg in 150 mls @ 150 mls/hr IV Q24H LACY Naloxone HCl (Naloxone 0.4 Mg/Ml Vial) 0.2 mg IV Q2MIN PRN PRN Reason: Opiate Reversal Ondansetron HCl (Ondansetron 4 Mg/2 Ml Inj) 4 mg IV Q8HR PRN PRN Reason: Nausea And Vomiting Vancomycin HCl (Vancomycin Peak) 1 request MIS 0500 ONE Stop: 09/23/22 05:01 Vancomycin HCl (Vancomycin Trough) 1 request [facility] 0230 ONE Stop: 09/23/22 02:31 Discontinued Medications Hydrocortisone (Hydrocortisone 100 Mg/2 Ml Vial) 50 mg IV Q6H [facility] Last Admin: 09/20/22 11:35 Dose: 50 mg Documented By: SRINATH Hydrocortisone (Hydrocortisone 100 Mg/2 Ml Vial) 50 mg IV Q6H [facility] Last Admin: 09/20/22 17:53 Dose: 50 mg Documented By: SRINATH Hydromorphone HCl (Hydromorphone 1 Mg Inj) 1 mg IV NOW ONE Stop: 09/20/22 03:45 Last Admin: 09/20/22 03:52 Dose: 1 mg Documented By: LORENA Hydromorphone HCl (Hydromorphone 0.5 Mg Inj) 0.5 mg IV NOW ONE Stop: 09/20/22 04:24 Last Admin: 09/20/22 04:35 Dose: 0.5 mg Documented By: LORENA Hydromorphone HCl (Hydromorphone 0.5 Mg Inj) 0.5 mg IV NOW ONE Stop: 09/20/22 10:56 Last Admin: 09/20/22 11:11 Dose: Not Given Documented By: AALIYAH Sodium Chloride (Normal Saline 0.9%) 1,000 mls @ 1,000 mls/hr IV BOLUS ONE Stop: 09/20/22 01:10 Last Infusion: 09/20/22 01:41 Dose: 0 mls/hr Documented By: Admin: 09/20/22 00:14 Dose: 1,000 mls/hr Documented By: AP Sodium Chloride (Normal Saline 0.9%) 1,524.06 mls @ 508.02 mls/hr 30 ml/kg infuse over 3 hr (1524.06 ml) IV NOW ONE Stop: 09/20/22 04:32 Last Infusion: 09/20/22 04:35 Dose: 0 mls/hr Documented By: Admin: 09/20/22 01:46 Dose: 508.02 mls/hr Documented By: LORENA Piperacillin Sod/Tazobactam (Sod 4.5 gm/ Sodium Chloride) 100 mls @ 200 mls/hr IV NOW ONE Stop: 09/20/22 01:34 Last Infusion: 09/20/22 01:45 Dose: 0 mls/hr Documented By: Admin: 09/20/22 01:45 Dose: 200 mls/hr Documented By: LORENA Vancomycin HCl (Vancomycin) 750 mg in 150 mls @ 150 mls/hr IV NOW ONE Stop: 09/20/22 02:33 Last Infusion: 09/20/22 04:16 Dose: 0 mls/hr Documented By: Admin: 09/20/22 03:04 Dose: 150 mls/hr Documented By: LORENA NOREPINEPHRINE BITARTRATE/D5W (Levophed) 4 mg in 250 mls @ 30 mls/hr IV TITRATE LACY; Protocol Last Admin: 09/20/22 10:36 Dose: Not Given Documented By: AALIYAH Sodium Chloride (Normal Saline 0.9%) 1,000 mls @ 1,000 mls/hr IV BOLUS ONE Stop: 09/20/22 07:57 Last Infusion: 09/20/22 07:01 Dose: 0 mls/hr Documented By: Admin: 09/20/22 05:50 Dose: 1,000 mls/hr Documented By: LORENA Ceftriaxone Sodium 2,000 mg/ (Sodium Chloride) 100 mls @ 200 mls/hr IV NOW ONE Stop: 09/20/22 07:06 Last Infusion: 09/20/22 13:19 Dose: 0 mls/hr Documented By: Admin: 09/20/22 11:33 Dose: 200 mls/hr Documented By: SRINATH Lactated Ringer's (Lactated Ringers) 1,000 mls @ 1,000 mls/hr IV BOLUS ONE Stop: 09/20/22 08:41 Last Infusion: 09/20/22 13:18 Dose: 0 mls/hr Documented By: Admin: 09/20/22 11:14 Dose: 1,000 mls/hr Documented By: AALIYAH Acetylcysteine 7.5 g/ Dextrose 237.5 mls @ 237.5 mls/hr IV NOW ONE Stop: 09/20/22 08:59 Last Infusion: 09/20/22 13:19 Dose: 0 mls/hr Documented By: Admin: 09/20/22 09:52 Dose: 237.5 mls/hr Documented By: SRINATH Acetylcysteine 2.5 g/ Dextrose 512.5 mls @ 128.125 mls/hr IV NOW ONE Stop: 09/20/22 14:44 Last Infusion: 09/20/22 16:46 Dose: 0 mls/hr Documented By: Admin: 09/20/22 11:58 Dose: 128.125 mls/hr Documented By: SRINATH Acetylcysteine 5.0802 g/ (Dextrose) 1,025.401 mls @ 64.088 mls/hr IV NOW ONE Stop: 09/20/22 14:46 Last Infusion: 09/20/22 20:40 Dose: 0 mls/hr Documented By: [facility] Admin: 09/20/22 16:46 Dose: 64.088 mls/hr Documented By: SRINATH Lidocaine HCl (Lidocaine 1% (Pf) 5 Ml) 10 ml INJ NOW ONE Stop: 09/20/22 04:35 Last Admin: 09/20/22 05:14 Dose: 10 ml Documented By: LORENA Oxycodone HCl (Oxycodone Ir 5 Mg Tablet) 5 mg PO Q3H PRN PRN Reason: Pain, Moderate (4-6) Vital Signs Vital signs: Vital Signs - 8 hr 09/19/22 23:23 09/20/22 00:02 09/20/22 00:11 Temperature 97.2 F L Pulse Rate 78 75 75 Respiratory Rate 18 12 11 L Blood Pressure 112/69 94/50 L Pulse Oximetry 99 100 100 Oxygen Delivery Method Room Air Room Air Room Air 09/20/22 00:26 09/20/22 00:25 09/20/22 00:30 Temperature Pulse Rate 70 71 Respiratory Rate Blood Pressure 115/58 L Pulse Oximetry Oxygen Delivery Method 09/20/22 00:30 09/20/22 01:13 09/20/22 01:16 Temperature Pulse Rate 70 76 Respiratory Rate 8 L Blood Pressure 117/58 L Pulse Oximetry 99 92 Oxygen Delivery Method 09/20/22 01:16 09/20/22 01:30 09/20/22 01:30 Temperature Pulse Rate 75 73 Respiratory Rate 6 L 8 L Blood Pressure 81/51 L Pulse Oximetry 96 99 Oxygen Delivery Method 09/20/22 01:33 09/20/22 01:33 09/20/22 02:00 Temperature Pulse Rate 75 Respiratory Rate 20 Blood Pressure 100/57 L 91/50 L Pulse Oximetry 100 Oxygen Delivery Method 09/20/22 02:00 09/20/22 02:30 09/20/22 02:31 Temperature Pulse Rate 68 68 Respiratory Rate 10 L 9 L Blood Pressure 109/52 L Pulse Oximetry 99 100 Oxygen Delivery Method 09/20/22 02:31 09/20/22 03:00 09/20/22 03:00 Temperature Pulse Rate 70 69 Respiratory Rate 11 L 17 Blood Pressure 81/55 L Pulse Oximetry 92 100 Oxygen Delivery Method 09/20/22 03:30 09/20/22 03:30 09/20/22 03:39 Temperature Pulse Rate 70 Respiratory Rate 7 L Blood Pressure 85/49 L 135/65 Pulse Oximetry 94 Oxygen Delivery Method 09/20/22 03:39 Temperature Pulse Rate 79 Respiratory Rate 17 Blood Pressure Pulse Oximetry 96 Oxygen Delivery Method Sepsis Evaluation (ED) Triage Screening Sepsis Screen: No Definite Risk Level 1 - Infection Sepsis Infection Criteria Present: None Response It is my opinion that his patient have a likely infectious etiology fo r meeting sepsis criteria: Does Fluid calculation based on 30 mL/kg within 1hr of criteria: ABW used Antibiotics initiated within 1 hr of Sepis dx: No Tissue Perfusion Reassessed within 6 hrs of infusion start time: Yes Date of Tissue Perfusion Reassessment completed: 09/20/22 Time Tissue Perfusion Reassessment completed: 04:00 MDM - Sepsis Lab Data 09/19/22 23:30 09/20/22 00:06 Labs: Lab Results 09/19/22 09/19/22 09/19/22 Range/Units 23:30 23:30 23:52 WBC 10.2 (4.5-11.0) X10^3/uL RBC 2.81 L (4.0-5.2) X10^6/uL Hgb 9.6 L (12.0-16.0) g/dL Hct 29.5 L (36-46) % MCV 104.9 H (80-100) fL MCH 34.1 H (26-34) PG MCHC 32.5 (30-36) % RDW 17.3 H (11.6-14.8) % Plt Count 470 H (150-400) X10^3/uL Neut % (Auto) 63.4 (50-75) % Lymph % (Auto) 26.2 (25-40) % [place] % (Auto) 4.8 (3-14) % Eos % (Auto) 4.9 H (2-4) % Baso % (Auto) 0.7 (0-2) % Neut # (Auto) 6400 (9207-8737) /uL Lymph # (Auto) 2700 (0368-3733) /uL [place] # (Auto) 500 (0-900) /uL Eos # (Auto) 500 H (0-450) /uL Baso # (Auto) 100 (0-100) /uL PT (10.1-12.7) SECONDS INR (0.9-1.3) APTT (26-36) SECONDS Sodium (137-145) mmol/L Potassium (3.4-5.1) mmol/L Chloride (98-107) mmol/L Carbon Dioxide (22-32) mmol/L BUN (7-17) mg/dL Creatinine (0.52-1.04) mg/dL Estimated GFR (>60) mL/min BUN/Creatinine Ratio (6-22) Glucose (80-110) mg/dL Lactate 1.0 (0.7-2.1) mmol/L Calcium (8.4-10.2) mg/dL Total Bilirubin (0.2-1.3) mg/dL AST (14-36) IU/L ALT (<35) IU/L Alkaline Phosphatase (38-126) U/L Total Creatine Kinase (30-135) U/L CK-MB (CK-2) CK-MB (CK-2) Rel Index Troponin I (0.01-0.034) ng/mL Total Protein (6.3-8.2) g/dL Albumin (3.5-5.0) g/dL Globulin (1.7-4.1) g/dL Albumin/Globulin Ratio (1.0-2.8) Procalcitonin (<0.5) ng/mL Urine Color Urine Appearance Urine pH (4.5-8.0) Ur Specific [place] (1.000-1.035) Urine Protein (Negative) Urine Glucose (UA) (Negative) g/dL Urine Ketones (NEGATIVE) Urine Occult Blood (Negative) Urine Nitrate (Negative) Urine Bilirubin (NEGATIVE) Urine Urobilinogen (0.2) E.U./dL Ur Leukocyte Esterase (NEGATIVE) Urine RBC (0-5/HPF) Urine WBC (0-5/HPF) Urine Bacteria (None) Ur Culture Indicated? Salicylates (<20) mg/dL U Opiates 300ng/mL cut (Negative) Ur Oxycodone Screen (Negative) Urine Methadone Screen (Negative) Acetaminophen (10-30) ug/mL Ur Barbiturates Screen (Negative) U Tricyclic Antidepress (Negative) Ur Phencyclidine Scrn (Negative) Ur Amphetamines Screen (Negative) U Methamphetamines Scrn (Negative) Ur MDMA Scrn (Ecstasy) (Negative) U Benzodiazepines Scrn (Negative) Urine Cocaine Screen (Negative) U Marijuana (THC) Screen (Negative) Ethyl Alcohol ( - 10) mg/dL Chlamy pneumoniae PCR Not detected (Not Detect) Adenovirus (PCR) Not detected (Not Detect) B. pertussis DNA (PCR) Not detected (Not Detecte) B.parapertussis DNA PCR Not detected (Not Detecte) Coronavirus OC43 (PCR) Not detected (Not Detect) Coronavirus HKU1 (PCR) Not detected (Not Detect) Coronavirus 229E (PCR) Not detected (Not Detect) SARS-CoV-2 (PCR) Not detected (Not Detecte) Coronavirus NL63 (PCR) Not detected (Not Detect) Human Metapneumovir PCR Not detected (Not Detect) Influenza Type A (PCR) Not detected (Not Detect) Influenza Type B (PCR) Not detected (Not Detect) M. pneumoniae (PCR) Not detected (Not Detect) Parainfluenza 1 (PCR) Not detected (Not Detect) Parainfluenza 2 (PCR) Not detected (Not Detect) Parainfluenza 3 (PCR) Not detected (Not Detect) Parainfluenza 4 (PCR) Not detected (Not Detect) RSV (PCR) Not detected (Not Detect) Entero/Rhino (PCR) Not detected (Not Detect) 09/20/22 09/20/22 09/20/22 Range/Units 00:06 00:06 00:17 WBC (4.5-11.0) X10^3/uL RBC (4.0-5.2) X10^6/uL Hgb (12.0-16.0) g/dL Hct (36-46) % MCV (80-100) fL MCH (26-34) PG MCHC (30-36) % RDW (11.6-14.8) % Plt Count (150-400) X10^3/uL Neut % (Auto) (50-75) % Lymph % (Auto) (25-40) % [place] % (Auto) (3-14) % Eos % (Auto) (2-4) % Baso % (Auto) (0-2) % Neut # (Auto) (3111-1893) /uL Lymph # (Auto) (0684-0134) /uL [place] # (Auto) (0-900) /uL Eos # (Auto) (0-450) /uL Baso # (Auto) (0-100) /uL PT 14.0 H (10.1-12.7) SECONDS INR 1.2 (0.9-1.3) APTT 40 H (26-36) SECONDS Sodium 135 L (137-145) mmol/L Potassium 4.1 (3.4-5.1) mmol/L Chloride 108 H (98-107) mmol/L Carbon Dioxide 15 L (22-32) mmol/L BUN 34 H (7-17) mg/dL Creatinine 1.27 H (0.52-1.04) mg/dL Estimated GFR 45 L (>60) mL/min BUN/Creatinine Ratio 26.8 H (6-22) Glucose 103 (80-110) mg/dL Lactate (0.7-2.1) mmol/L Calcium 9.0 (8.4-10.2) mg/dL Total Bilirubin 0.3 (0.2-1.3) mg/dL AST 30 (14-36) IU/L ALT 38 H (<35) IU/L Alkaline Phosphatase 348 H (38-126) U/L Total Creatine Kinase 40 (30-135) U/L CK-MB (CK-2) TNP CK-MB (CK-2) Rel Index TNP Troponin I 0.058 H (0.01-0.034) ng/mL Total Protein 6.9 (6.3-8.2) g/dL Albumin 3.5 (3.5-5.0) g/dL Globulin 3.4 (1.7-4.1) g/dL Albumin/Globulin Ratio 1.0 (1.0-2.8) Procalcitonin 20.1 H (<0.5) ng/mL Urine Color Yellow Urine Appearance Clear Urine pH 6.0 (4.5-8.0) Ur Specific [place] 1.020 (1.000-1.035) Urine Protein Negative (Negative) Urine Glucose (UA) Negative (Negative) g/dL Urine Ketones Negative (NEGATIVE) Urine Occult Blood Negative (Negative) Urine Nitrate Negative (Negative) Urine Bilirubin Negative (NEGATIVE) Urine Urobilinogen 0.2 (0.2) E.U./dL Ur Leukocyte Esterase Negative (NEGATIVE) Urine RBC None seen (0-5/HPF) Urine WBC 1-5/hpf (0-5/HPF) Urine Bacteria None seen (None) Ur Culture Indicated? Cult not indicated Salicylates < 1.0 (<20) mg/dL U Opiates 300ng/mL cut (Negative) Ur Oxycodone Screen (Negative) Urine Methadone Screen (Negative) Acetaminophen 37 H (10-30) ug/mL Ur Barbiturates Screen (Negative) U Tricyclic Antidepress (Negative) Ur Phencyclidine Scrn (Negative) Ur Amphetamines Screen (Negative) U Methamphetamines Scrn (Negative) Ur MDMA Scrn (Ecstasy) (Negative) U Benzodiazepines Scrn (Negative) Urine Cocaine Screen (Negative) U Marijuana (THC) Screen (Negative) Ethyl Alcohol < 10 ( - 10) mg/dL Chlamy pneumoniae PCR (Not Detect) Adenovirus (PCR) (Not Detect) B. pertussis DNA (PCR) (Not Detecte) B.parapertussis DNA PCR (Not Detecte) Coronavirus OC43 (PCR) (Not Detect) Coronavirus HKU1 (PCR) (Not Detect) Coronavirus 229E (PCR) (Not Detect) SARS-CoV-2 (PCR) (Not Detecte) Coronavirus NL63 (PCR) (Not Detect) Human Metapneumovir PCR (Not Detect) Influenza Type A (PCR) (Not Detect) Influenza Type B (PCR) (Not Detect) M. pneumoniae (PCR) (Not Detect) Parainfluenza 1 (PCR) (Not Detect) Parainfluenza 2 (PCR) (Not Detect) Parainfluenza 3 (PCR) (Not Detect) Parainfluenza 4 (PCR) (Not Detect) RSV (PCR) (Not Detect) Entero/Rhino (PCR) (Not Detect) 09/20/22 09/20/22 Range/Units 00:17 02:28 WBC (4.5-11.0) X10^3/uL RBC (4.0-5.2) X10^6/uL Hgb (12.0-16.0) g/dL Hct (36-46) % MCV (80-100) fL MCH (26-34) PG MCHC (30-36) % RDW (11.6-14.8) % Plt Count (150-400) X10^3/uL Neut % (Auto) (50-75) % Lymph % (Auto) (25-40) % [place] % (Auto) (3-14) % Eos % (Auto) (2-4) % Baso % (Auto) (0-2) % Neut # (Auto) (3737-3249) /uL Lymph # (Auto) (8614-2476) /uL [place] # (Auto) (0-900) /uL Eos # (Auto) (0-450) /uL Baso # (Auto) (0-100) /uL PT (10.1-12.7) SECONDS INR (0.9-1.3) APTT (26-36) SECONDS Sodium (137-145) mmol/L Potassium (3.4-5.1) mmol/L Chloride (98-107) mmol/L Carbon Dioxide (22-32) mmol/L BUN (7-17) mg/dL Creatinine (0.52-1.04) mg/dL Estimated GFR (>60) mL/min BUN/Creatinine Ratio (6-22) Glucose (80-110) mg/dL Lactate (0.7-2.1) mmol/L Calcium (8.4-10.2) mg/dL Total Bilirubin (0.2-1.3) mg/dL AST (14-36) IU/L ALT (<35) IU/L Alkaline Phosphatase (38-126) U/L Total Creatine Kinase 37 (30-135) U/L CK-MB (CK-2) TNP CK-MB (CK-2) Rel Index TNP Troponin I 0.062 H (0.01-0.034) ng/mL Total Protein (6.3-8.2) g/dL Albumin (3.5-5.0) g/dL Globulin (1.7-4.1) g/dL Albumin/Globulin Ratio (1.0-2.8) Procalcitonin (<0.5) ng/mL Urine Color Urine Appearance Urine pH (4.5-8.0) Ur Specific [place] (1.000-1.035) Urine Protein (Negative) Urine Glucose (UA) (Negative) g/dL Urine Ketones (NEGATIVE) Urine Occult Blood (Negative) Urine Nitrate (Negative) Urine Bilirubin (NEGATIVE) Urine Urobilinogen (0.2) E.U./dL Ur Leukocyte Esterase (NEGATIVE) Urine RBC (0-5/HPF) Urine WBC (0-5/HPF) Urine Bacteria (None) Ur Culture Indicated? Salicylates (<20) mg/dL U Opiates 300ng/mL cut Positive H (Negative) Ur Oxycodone Screen Positive H (Negative) Urine Methadone Screen Negative (Negative) Acetaminophen (10-30) ug/mL Ur Barbiturates Screen Negative (Negative) U Tricyclic Antidepress Negative (Negative) Ur Phencyclidine Scrn Negative (Negative) Ur Amphetamines Screen Negative (Negative) U Methamphetamines Scrn Negative (Negative) Ur MDMA Scrn (Ecstasy) Negative (Negative) U Benzodiazepines Scrn Negative (Negative) Urine Cocaine Screen Negative (Negative) U Marijuana (THC) Screen Negative (Negative) Ethyl Alcohol ( - 10) mg/dL Chlamy pneumoniae PCR (Not Detect) Adenovirus (PCR) (Not Detect) B. pertussis DNA (PCR) (Not Detecte) B.parapertussis DNA PCR (Not Detecte) Coronavirus OC43 (PCR) (Not Detect) Coronavirus HKU1 (PCR) (Not Detect) Coronavirus 229E (PCR) (Not Detect) SARS-CoV-2 (PCR) (Not Detecte) Coronavirus NL63 (PCR) (Not Detect) Human Metapneumovir PCR (Not Detect) Influenza Type A (PCR) (Not Detect) Influenza Type B (PCR) (Not Detect) M. pneumoniae (PCR) (Not Detect) Parainfluenza 1 (PCR) (Not Detect) Parainfluenza 2 (PCR) (Not Detect) Parainfluenza 3 (PCR) (Not Detect) Parainfluenza 4 (PCR) (Not Detect) RSV (PCR) (Not Detect) Entero/Rhino (PCR) (Not Detect) Imaging Data CT scan - head: Radiologist's Impression: Signed Patient: Emani Leiva MR#: [id number] : 1950 Acct:[id number] Age/Sex: 71 / F Date of Service: 09/20/22 Loc: ED Accession Number: [id number] ?? Procedure: CT head/brain wo con Ordering Provider: Melisa Koo D.O. PROCEDURE:? CT HEAD/BRAIN WO CON ? INDICATIONS:? decreased mental status ? TECHNIQUE:? Noncontrast 4.5 mm thick angled axial sections acquired from the foramen magnum to the vertex, with coronal and sagittal reformats.? For radiation dose reduction, the following was used:? automated exposure control, adjustment of mA and/or kV according to patient size.? ? COMPARISON:? [facility], CT, CT HEAD/BRAIN WO CON, 07/21/2022, 12:36. ? FINDINGS:? Image quality:? Excellent.? ? CSF spaces:? Basal cisterns are patent.? No extra-axial fluid collections.? The ventricles are symmetric in size and shape.? There is mild cerebral volume loss, with resultant sulcal prominence as well as prominence of the frontal extra-axial spaces.? ? Brain:? No intracranial hemorrhage, mass, or mass effect.? There are subcortical, periventricular and deep white matter hypodensities consistent with chronic small vessel ischemic changes.? The eduardo-white matter junction appears preserved.? ? Skull and face:? Calvarium and visualized facial bones appear intact, without suspicious lesions.? ? Sinuses:? Visualized sinuses and mastoids are clear.? ? IMPRESSION:? ? 1.? No acute intracranial abnormality. ? 2. Mild cerebral volume loss. ? ? Dictated by: Festus Moreira M.D. on 09/20/2022 at 1:19 ? ? Chest x-ray: Radiologist's Impression: Signed Patient: Emani Leiva MR#: [id number] : 1950 Acct:[id number] Age/Sex: 71 / F Date of Service: 09/20/22 Loc: ED Accession Number: [id number] ?? Procedure: XR chest 1V Ordering Provider: Melisa Koo D.O. PROCEDURE:? XR CHEST 1V ? INDICATIONS:? fever ? TECHNIQUE:? One view of the chest was acquired.? ? COMPARISON:[facility], , XR CHEST 1V, 07/21/2022, 17:56. ? FINDINGS:? ? Surgical changes and devices:? None.? ? Lungs and pleura:? Lungs are clear.? No pleural effusions or pneumothorax.? ? Mediastinum:? Mediastinal contours appear normal.? Heart size is normal.? ? Bones and chest wall:? No suspicious bony lesions.? Overlying soft tissues appear unremarkable.? ? IMPRESSION:? ? 1.? No acute cardiopulmonary disease. ? ? ? Dictated by: Festus Moreira M.D. on 09/20/2022 at 1:54 ? ? ECG Data Interpretation: Sinus rhythm rate 77 MD interval 136 QRS [address] changes no T-wave inversions MDM Narrative Medical decision making narrative: Patient is 71-year-old female with recent history of severe sepsis requiring intubation bit and vasopressor support presents today with again decreased mental status. Her mental status has improved somewhat here in the ED. Procalc itonin is elevated at 20 previously it was 90. Concern for ongoing infection versus other. She is afebrile without leukocytosis or elevated lactic acid. Her urinalysis is negative along with her chest x-ray and respiratory panel. She does have decreasing mental status but no significant neck pain or headache. Attempted lumbar puncture but was unsuccessful likely secondary to scoliosis. Head CT is negative. She is becoming a little more awake and alert during her ED stay. Troponin is indeterminate previously she had an NSTEMI secondary to sepsis. Patient previously had very elevated acetaminophen levels. Today they are in the 30s she is chronically on medication I am not suspecting significant or severe overdose I think unrelated today. Poison control was contacted they did recommend treating with N-acetylcysteine just the standard dose and 2 hours prior to the end of the 24 hour infusion recheck AST ALT, INR and Tylenol levels. If still elevated than continue N-acetylcysteine or Re contact poison control Low pressures in the ED have been quite variable sometimes they are low she received sepsis fluids Levophed was ordered but never started in the ED. [place] CC: Altered mental status Complicating co-morbidities: Chronically ill NSTEMI hyperlipidemia Corroborating data: [From son Data collected from: [ ] Medical records reviewed: [ ] Differential considered: Infection, intracranial hemorrhage, metabolic Exam documented above, pertinent findings include: Chronically ill weak Lab Test results independently reviewed as above. Pertinent findings: Elevated procalcitonin of 20.1 Independently reviewed EKG as above Imaging studies independently reviewed: Consultations: Dr. Bains Treatments: Fluids antibiotic Re-evaluations: [ ] Discussion: As above Diagnosis: Observation decreasing mental status and troponin elevation, concern for sepsis Disposition: see below, along with detailed discharge instructions that have been reviewed with patient as well as indications for ED re-evaluation and additional outpatient follow up Discharge Plan Departure Patient Disposition: Admitted As Inpatient Clinical Impression: Acute metabolic encephalopathy, Elevated troponin Admit Date/Time: 09/20/22 03:41 Admit Provider: Reginaldo Bains
[2022-09-20] MEDS: PIPERACILLIN/TAZO 4.5 GM in SODIUM CHLORIDE 0.9% 100 ML IV (01:45)
[2022-09-20] MEDS: SODIUM CHLORIDE 0.9% 508.02 ML IV (01:46)
[2022-09-20 02:07] LABS: UR Morphine/Opiate cutoff 300 Positive (Negative); Ur Creatinine 20 (Normal); Urine Amphetamines Negative (Negative); Urine Barbiturates Negative (Negative); Urine Benzodiazepines Negative (Negative); Urine Cocaine Negative (Negative); Urine MDMA Negative (Negative); Urine Methadone Negative (Negative); Urine Methamphetamines Negative (Negative); Urine Oxycodone Positive (Negative); Urine Phencyclidine Negative (Negative); Urine Tetrahydrocannabinol Negative (Negative); Urine Tricyclic Antidepressant Negative (Negative); Urine pH 6 (Normal)
[2022-09-20 02:10] LABS: Bacteria Urine None Seen; Culture Indicated Urine Cult Not Indicated; RBC Urine None Seen (0-5/HPF); WBC Urine 1-5/HPF (0-5/HPF)
[2022-09-20 02:47] LABS: Creatine Kinase 37 U/L (30-135)
[2022-09-20 03:00] LABS: Troponin I 0.062 ng/mL (0.01-0.034)
[2022-09-20] MEDS: VANCOMYCIN 750 MG/150 ML PIGGYBACK 150 MG IV (03:04)
[2022-09-20] MEDS: HYDROMORPHONE 1 MG INJ IV (03:52)
[2022-09-20 04:16] LABS: Fractionated Inspired Oxygen 28; HCO3 ABG 14 mmol/L (23-27); Oxygen Saturation ABG 99 % (95-100); PCO2 ABG 37.9 mmHg (35-45); PO2 ABG 176 mmHg (80-100); TCO2 ABG 15 mmol/L (23-27); pH ABG 7.17 (7.35-7.45)
[2022-09-20 04:25] LABS: Acetaminophen 35 ug/mL (10-30)
[2022-09-20] MEDS: HYDROMORPHONE 0.5 MG INJ IV (04:35)
[2022-09-20] MEDS: LIDOCAINE 1% (PF) 5 ML 10 ML INJ (05:14)
--- NOTE | 2022-09-20 07:47 | PM.HP.1 ---
History of Present Illness History of Present Illness Date Patient Seen: 09/20/22 Chief complaint: lethagic w/ UTI history Narrative: Emani Leiva is a 71yo F with PMH of tylenol overdose, stage 3 CKD, CVA, C. diff, COPD, lumbar osteomyelitis, HTN, HLD, fibromyalgia, depression, daily vape use and malnutrition who presents with lethargy and found to have metabolic acidosis and elevated tylenol levels. History is obtained mostly from boyfriend Patrick. He states over the past week she has gotten progressively weaker and more lethargic, not eating much. She was just released 2 weeks from [facility] where she was sent from [place] for severe metabolic acidosis, renal failure and tylenol overdose. Was intubated at that time and improved and able to discharge. SNF was recommended but patient refused and she returned home. She has been mostly bedbound for the past several months per the boyfriend. He thinks she is having some cognitive decline as well and thinks the oxycodone is to blame for some it. He would like her pain medications limited. Son also at bedside and said his mother doesn't take good care of herself. Patient says she is having pain in her right arm from breaking it. She knows the year, month and location. She is sleepy and drifts off and back again. In the ED, BP was as low as 81/51 and received 3L fluid boluses. BP now improved to 121/58. ABG showed pH of 7.17 with bicarb 14. Gap of 12. Cr 1.27 and now improved to 0.87. Tylenol level 35 and poison control called who recommended starting NAC treatment. Procal of 90 and decreased to 20. Started on broad spectrum abx. Resp PCR negative. Drug screen positive for opiates and oxycodone alone. Patient History Medical History Acute [place] Anxiety Arthritis C. difficile colitis Chronic pain Closed left clavicular fracture Colitis Compression fracture of L1 vertebra (~07/2019) COPD (chronic obstructive pulmonary disease) CVA (cerebral vascular accident) Depression Diarrhea DJD (degenerative joint disease) Fibromyalgia Fracture, tibia GI bleeding History of osteomyelitis History of recurrent UTIs HLD (hyperlipidemia) Hypertension Hypertension Insomnia Iron (Fe) deficiency anemia Left foot drop Left rib fracture Lumbar compression fracture (02/26/19) Migraines Multiple fractures Nephrolithiasis Neuropathy Numbness and tingling Osteoporosis Osteoporosis Peptic ulcer disease Pre-diabetes Radius fracture (08/30/17) Renal disease Septic shock Stage 3 chronic kidney disease Surgical History H/O: hysterectomy History of surgery Hx of appendectomy Hx of cholecystectomy Hx of elbow surgery Hx of kyphoplasty (~2013) Hx of kyphoplasty (04/28/19) Hx of kyphoplasty (07/28/19) Hx of tonsillectomy Status post epidural steroid injection (03/25/19) Family & Social History Family History Mother No known health problems COPD (chronic obstructive pulmonary disease) Father No known health problems Social History: household members other,children Safety & Behavioral: Feels Safe in Current Yes Environment Tobacco & Substance use: Tobacco type cigarettes,e-cigarettes Smoking Status Former smoker alcohol intake current alcohol intake frequency holiday/special occasion Substance Use Type does not use,former substance user Meds Home Medications and Allergies Home Medications Medication Instructions Recorded Confirmed Type metoprolol tartrate 25 mg tablet 25 mg PO BID #180 tabs 02/16/22 09/14/22 Rx gabapentin 300 mg tablet 300 mg PO DAILY 05/02/22 09/14/22 History apixaban 5 mg tablet (Eliquis) 5 mg PO BID #180 tabs 08/21/22 09/14/22 Rx bisacodyl 10 mg rectal suppository 10 mg AK DAILY PRN 08/21/22 09/14/22 History (Dulcolax (bisacodyl)) polyethylene glycol 3350 17 17 g PO DAILY 08/21/22 09/14/22 History gram/dose oral powder (Miralax) sulfamethoxazole 800 1 tab PO BID #14 tabs 09/07/22 09/14/22 Rx mg-trimethoprim 160 mg tablet (Bactrim DS) aspirin 81 mg tablet,delayed 81 mg PO DAILY #90 tabs 09/11/22 09/14/22 Rx release (Adult Aspirin Regimen) atorvastatin 40 mg tablet 40 mg PO DAILY #90 tabs 09/11/22 09/14/22 Rx methocarbamol 500 mg tablet 500 mg PO BID #60 tabs 09/11/22 09/14/22 Rx oxycodone 10 mg tablet 10 mg PO Q6H PRN pain #120 tabs 09/14/22 09/14/22 Rx pantoprazole 40 mg tablet,delayed 40 mg PO DAILY #90 tabs 09/14/22 09/14/22 Rx release (Protonix) food supplemt, lactose-reduced 1 ea PO BID #5,688 mL 09/17/22 09/17/22 Rx (Ensure oral liquid) Allergies Allergy/AdvReac Type Severity Reaction Status Date / Time furosemide [From Lasix] Allergy Intermediate Rash Verified 09/14/22 11:31 tramadol [TRAMADOL] Allergy Unknown Verified 09/14/22 11:31 amitriptyline [AMITRIPTYLINE] AdvReac Intermediate Confusion Verified 09/14/22 11:31 Review of Systems Review of Systems Narrative: All other systems reviewed with the patient and are negative unless otherwise stated. Exam Vital Signs (past 8 hours): - 09/20/22 00:02 09/20/22 00:11 09/20/22 00:26 Pulse Rate 75 75 70 Respiratory Rate 12 11 L Blood Pressure 94/50 L Pulse Oximetry 100 100 Oxygen Delivery Method Room Air Room Air 09/20/22 00:25 09/20/22 00:30 09/20/22 00:30 Pulse Rate 71 70 Respiratory Rate 8 L Blood Pressure 115/58 L Pulse Oximetry 99 Oxygen Delivery Method 09/20/22 01:13 09/20/22 01:16 09/20/22 01:16 Pulse Rate 76 75 Respiratory Rate 6 L Blood Pressure 117/58 L Pulse Oximetry 92 96 Oxygen Delivery Method 09/20/22 01:30 09/20/22 01:30 09/20/22 01:33 Pulse Rate 73 75 Respiratory Rate 8 L 20 Blood Pressure 81/51 L Pulse Oximetry 99 100 Oxygen Delivery Method 09/20/22 01:33 09/20/22 02:00 09/20/22 02:00 Pulse Rate 68 Respiratory Rate 10 L Blood Pressure 100/57 L 91/50 L Pulse Oximetry 99 Oxygen Delivery Method 09/20/22 02:30 09/20/22 02:31 09/20/22 02:31 Pulse Rate 68 70 Respiratory Rate 9 L 11 L Blood Pressure 109/52 L Pulse Oximetry 100 92 Oxygen Delivery Method 09/20/22 03:00 09/20/22 03:00 09/20/22 03:30 Pulse Rate 69 Respiratory Rate 17 Blood Pressure 81/55 L 85/49 L Pulse Oximetry 100 Oxygen Delivery Method 09/20/22 03:30 09/20/22 03:39 09/20/22 03:39 Pulse Rate 70 79 Respiratory Rate 7 L 17 Blood Pressure 135/65 Pulse Oximetry 94 96 Oxygen Delivery Method 09/20/22 04:00 09/20/22 04:00 09/20/22 04:30 Pulse Rate 75 Respiratory Rate 9 L Blood Pressure 113/69 111/56 L Pulse Oximetry 100 Oxygen Delivery Method 09/20/22 04:30 09/20/22 05:00 09/20/22 05:00 Pulse Rate 96 H 80 Respiratory Rate 12 8 L Blood Pressure 93/57 L Pulse Oximetry 100 Oxygen Delivery Method 09/20/22 05:30 09/20/22 05:30 09/20/22 05:33 Pulse Rate 71 Respiratory Rate 9 L Blood Pressure 72/42 L 91/52 L Pulse Oximetry 99 Oxygen Delivery Method 09/20/22 05:33 09/20/22 06:00 09/20/22 06:00 Pulse Rate 74 77 Respiratory Rate 7 L 14 Blood Pressure 106/54 L Pulse Oximetry 98 100 Oxygen Delivery Method 09/20/22 06:30 09/20/22 06:30 09/20/22 07:00 Pulse Rate 71 Respiratory Rate 14 Blood Pressure 85/49 L 77/47 L Pulse Oximetry 100 Oxygen Delivery Method 09/20/22 07:00 09/20/22 07:04 09/20/22 07:04 Pulse Rate 69 70 Respiratory Rate 12 13 Blood Pressure 89/51 L Pulse Oximetry 100 95 Oxygen Delivery Method 09/20/22 07:30 Pulse Rate 69 Respiratory Rate 10 L Blood Pressure Pulse Oximetry Oxygen Delivery Method Oxygen Delivery Method Room Air Narrative Exam Narrative: GEN: Cachectic woman who is sleepy, winces in pain occasionally, appears older than stated age HEENT: moist mucous membranes, PERRL NECK: trachea midline, no JVD CV: regular rate and rhythm, no murmurs PULM: clear bilaterally ABD: soft, nontender, nondistended, no organomegaly EXT: warm and well perfused with no edema NEURO: somnolent Objective Labs 09/19/22 23:30 02/02/23 00:06 Labs: Laboratory Results - last 24 hr 09/19/22 09/19/22 09/19/22 23:30 23:30 23:52 WBC 10.2 RBC 2.81 L Hgb 9.6 L Hct 29.5 L MCV 104.9 H MCH 34.1 H MCHC 32.5 RDW 17.3 H Plt Count 470 H Neut % (Auto) 63.4 Lymph % (Auto) 26.2 [place] % (Auto) 4.8 Eos % (Auto) 4.9 H Baso % (Auto) 0.7 Neut # (Auto) 6400 Lymph # (Auto) 2700 [place] # (Auto) 500 Eos # (Auto) 500 H Baso # (Auto) 100 PT INR APTT ABG pH ABG pCO2 ABG pO2 ABG HCO3 ABG Total CO2 ABG O2 Saturation ABG Base Excess FiO2 Sodium Potassium Chloride Carbon Dioxide BUN Creatinine Estimated GFR BUN/Creatinine Ratio Glucose Lactate 1.0 Calcium Total Bilirubin AST ALT Alkaline Phosphatase Total Creatine Kinase CK-MB (CK-2) CK-MB (CK-2) Rel Index Troponin I Total Protein Albumin Globulin Albumin/Globulin Ratio Procalcitonin Urine Color Urine Appearance Urine pH Ur Specific [place] Urine Protein Urine Glucose (UA) Urine Ketones Urine Occult Blood Urine Nitrate Urine Bilirubin Urine Urobilinogen Ur Leukocyte Esterase Urine RBC Urine WBC Urine Bacteria Ur Culture Indicated? Salicylates U Opiates 300ng/mL cut Ur Oxycodone Screen Urine Methadone Screen Acetaminophen Ur Barbiturates Screen U Tricyclic Antidepress Ur Phencyclidine Scrn Ur Amphetamines Screen U Methamphetamines Scrn Ur MDMA Scrn (Ecstasy) U Benzodiazepines Scrn Urine Cocaine Screen U Marijuana (THC) Screen Ethyl Alcohol Chlamy pneumoniae PCR Not detected Adenovirus (PCR) Not detected B. pertussis DNA (PCR) Not detected B.parapertussis DNA PCR Not detected Coronavirus OC43 (PCR) Not detected Coronavirus HKU1 (PCR) Not detected Coronavirus 229E (PCR) Not detected SARS-CoV-2 (PCR) Not detected Coronavirus NL63 (PCR) Not detected Human Metapneumovir PCR Not detected Influenza Type A (PCR) Not detected Influenza Type B (PCR) Not detected M. pneumoniae (PCR) Not detected Parainfluenza 1 (PCR) Not detected Parainfluenza 2 (PCR) Not detected Parainfluenza 3 (PCR) Not detected Parainfluenza 4 (PCR) Not detected RSV (PCR) Not detected Entero/Rhino (PCR) Not detected 09/20/22 09/20/22 09/20/22 00:06 00:06 00:17 WBC RBC Hgb Hct MCV MCH MCHC RDW Plt Count Neut % (Auto) Lymph % (Auto) [place] % (Auto) Eos % (Auto) Baso % (Auto) Neut # (Auto) Lymph # (Auto) [place] # (Auto) Eos # (Auto) Baso # (Auto) PT 14.0 H INR 1.2 APTT 40 H ABG pH ABG pCO2 ABG pO2 ABG HCO3 ABG Total CO2 ABG O2 Saturation ABG Base Excess FiO2 Sodium 135 L Potassium 4.1 Chloride 108 H Carbon Dioxide 15 L BUN 34 H Creatinine 1.27 H Estimated GFR 45 L BUN/Creatinine Ratio 26.8 H Glucose 103 Lactate Calcium 9.0 Total Bilirubin 0.3 AST 30 ALT 38 H Alkaline Phosphatase 348 H Total Creatine Kinase 40 CK-MB (CK-2) TNP CK-MB (CK-2) Rel Index TNP Troponin I 0.058 H Total Protein 6.9 Albumin 3.5 Globulin 3.4 Albumin/Globulin Ratio 1.0 Procalcitonin 20.1 H Urine Color Yellow Urine Appearance Clear Urine pH 6.0 Ur Specific [place] 1.020 Urine Protein Negative Urine Glucose (UA) Negative Urine Ketones Negative Urine Occult Blood Negative Urine Nitrate Negative Urine Bilirubin Negative Urine Urobilinogen 0.2 Ur Leukocyte Esterase Negative Urine RBC None seen Urine WBC 1-5/hpf Urine Bacteria None seen Ur Culture Indicated? Cult not indicated Salicylates < 1.0 U Opiates 300ng/mL cut Ur Oxycodone Screen Urine Methadone Screen Acetaminophen 37 H Ur Barbiturates Screen U Tricyclic Antidepress Ur Phencyclidine Scrn Ur Amphetamines Screen U Methamphetamines Scrn Ur MDMA Scrn (Ecstasy) U Benzodiazepines Scrn Urine Cocaine Screen U Marijuana (THC) Screen Ethyl Alcohol < 10 Chlamy pneumoniae PCR Adenovirus (PCR) B. pertussis DNA (PCR) B.parapertussis DNA PCR Coronavirus OC43 (PCR) Coronavirus HKU1 (PCR) Coronavirus 229E (PCR) SARS-CoV-2 (PCR) Coronavirus NL63 (PCR) Human Metapneumovir PCR Influenza Type A (PCR) Influenza Type B (PCR) M. pneumoniae (PCR) Parainfluenza 1 (PCR) Parainfluenza 2 (PCR) Parainfluenza 3 (PCR) Parainfluenza 4 (PCR) RSV (PCR) Entero/Rhino (PCR) 09/20/22 09/20/22 09/20/22 00:17 02:28 04:00 WBC RBC Hgb Hct MCV MCH MCHC RDW Plt Count Neut % (Auto) Lymph % (Auto) [place] % (Auto) Eos % (Auto) Baso % (Auto) Neut # (Auto) Lymph # (Auto) [place] # (Auto) Eos # (Auto) Baso # (Auto) PT INR APTT ABG pH ABG pCO2 ABG pO2 ABG HCO3 ABG Total CO2 ABG O2 Saturation ABG Base Excess FiO2 Sodium Potassium Chloride Carbon Dioxide BUN Creatinine Estimated GFR BUN/Creatinine Ratio Glucose Lactate Calcium Total Bilirubin AST ALT Alkaline Phosphatase Total Creatine Kinase 37 CK-MB (CK-2) TNP CK-MB (CK-2) Rel Index TNP Troponin I 0.062 H Total Protein Albumin Globulin Albumin/Globulin Ratio Procalcitonin Urine Color Urine Appearance Urine pH Ur Specific [place] Urine Protein Urine Glucose (UA) Urine Ketones Urine Occult Blood Urine Nitrate Urine Bilirubin Urine Urobilinogen Ur Leukocyte Esterase Urine RBC Urine WBC Urine Bacteria Ur Culture Indicated? Salicylates U Opiates 300ng/mL cut Positive H Ur Oxycodone Screen Positive H Urine Methadone Screen Negative Acetaminophen 35 H Ur Barbiturates Screen Negative U Tricyclic Antidepress Negative Ur Phencyclidine Scrn Negative Ur Amphetamines Screen Negative U Methamphetamines Scrn Negative Ur MDMA Scrn (Ecstasy) Negative U Benzodiazepines Scrn Negative Urine Cocaine Screen Negative U Marijuana (THC) Screen Negative Ethyl Alcohol Chlamy pneumoniae PCR Adenovirus (PCR) B. pertussis DNA (PCR) B.parapertussis DNA PCR Coronavirus OC43 (PCR) Coronavirus HKU1 (PCR) Coronavirus 229E (PCR) SARS-CoV-2 (PCR) Coronavirus NL63 (PCR) Human Metapneumovir PCR Influenza Type A (PCR) Influenza Type B (PCR) M. pneumoniae (PCR) Parainfluenza 1 (PCR) Parainfluenza 2 (PCR) Parainfluenza 3 (PCR) Parainfluenza 4 (PCR) RSV (PCR) Entero/Rhino (PCR) 09/20/22 04:02 WBC RBC Hgb Hct MCV MCH MCHC RDW Plt Count Neut % (Auto) Lymph % (Auto) [place] % (Auto) Eos % (Auto) Baso % (Auto) Neut # (Auto) Lymph # (Auto) [place] # (Auto) Eos # (Auto) Baso # (Auto) PT INR APTT ABG pH 7.17 L* ABG pCO2 37.9 ABG pO2 176 H ABG HCO3 14 L ABG Total CO2 15 L ABG O2 Saturation 99 ABG Base Excess -15.0 L FiO2 28 Sodium Potassium Chloride Carbon Dioxide BUN Creatinine Estimated GFR BUN/Creatinine Ratio Glucose Lactate Calcium Total Bilirubin AST ALT Alkaline Phosphatase Total Creatine Kinase CK-MB (CK-2) CK-MB (CK-2) Rel Index Troponin I Total Protein Albumin Globulin Albumin/Globulin Ratio Procalcitonin Urine Color Urine Appearance Urine pH Ur Specific [place] Urine Protein Urine Glucose (UA) Urine Ketones Urine Occult Blood Urine Nitrate Urine Bilirubin Urine Urobilinogen Ur Leukocyte Esterase Urine RBC Urine WBC Urine Bacteria Ur Culture Indicated? Salicylates U Opiates 300ng/mL cut Ur Oxycodone Screen Urine Methadone Screen Acetaminophen Ur Barbiturates Screen U Tricyclic Antidepress Ur Phencyclidine Scrn Ur Amphetamines Screen U Methamphetamines Scrn Ur MDMA Scrn (Ecstasy) U Benzodiazepines Scrn Urine Cocaine Screen U Marijuana (THC) Screen Ethyl Alcohol Chlamy pneumoniae PCR Adenovirus (PCR) B. pertussis DNA (PCR) B.parapertussis DNA PCR Coronavirus OC43 (PCR) Coronavirus HKU1 (PCR) Coronavirus 229E (PCR) SARS-CoV-2 (PCR) Coronavirus NL63 (PCR) Human Metapneumovir PCR Influenza Type A (PCR) Influenza Type B (PCR) M. pneumoniae (PCR) Parainfluenza 1 (PCR) Parainfluenza 2 (PCR) Parainfluenza 3 (PCR) Parainfluenza 4 (PCR) RSV (PCR) Entero/Rhino (PCR) Assessment & Plan Assessment & Plan narrative: # non-anion gap metabolic acidosis -ABG with pH of 7.17 on admission -unclear etiology, patient denies diarrhea -possibly renal tubular acidosis -continue bicarb drip and check urine lytes to measure urine gap -measure q6h BMP's -beta hydroxybutyrate pending # tylenol overdose -tylenol level of 35, previous overdoses much higher -poison control recommended completing full course of NAC -repeat tylenol now 13 -avoid Tylenol and Parkman # shock, now resolved -BP improved with fluid boluses, pressors not needed -continue broad spectrum abx until cultures return in case of sepsis, procal 20 -check echo -continue stress dose steroids for now # myocardial demand ischemia -troponin elevated to 0.062, no chest pain or EKG changes -trend trops and check echo as above # failure to thrive -patient essentially bedbound for several months and stays in the house 11/03 smoking a vape at all hours of the day per boyfriend -a 35 min conversation was had with the son and boyfriend about hospice if patient continues to refuse SNF, which she has previously expressed. They agreed that she has been declining and not taking her health seriously and lacks insight into her conditions. They agreed that more support with hospice would be helpful for her, however patient will need to decide what she wants in terms of treatment going forward. For now patient to remain full code and will discuss further with patient involved during hospitalization. -PT/OT and human resources analyst evals # muscle spasms -continue methocarbamol # HLD -continue lipitor # right humeral neck fracture -sustained in Jun 2022 and patient notes ongoing pain -offered a sling to right arm but patient refused Code status is full code. COVID negative. DVT prophylaxis with heparin SQ. Proxy is stephie Blanco. I have reviewed home meds and used all available resources to reconcile the home meds. This patient will be admitted as inpatient and will require greater than 2 midnights of hospital time to treat metabolic acidosis. Time Spent With Patient Critical Care time: I spent a total of [] minutes of critical care time on this patient's care today; this time is exclusive of procedural time.
[2022-09-20] MEDS: SODIUM BICARB 8.4% VIAL 150 MEQ in DEXTROSE 5% WATER 1,000 ML IV ×2 (09:08→17:55)
--- NOTE | 2022-09-20 09:28 | P.TELICUCN_ITS ---
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 Vital and bedside RN Narrative: Patient is a 71 year old female with history of C diff, CKD, A fib, COPD, and a nemia who presents with altered mental status. By report, patient has not been feeling well for the past few days and family noticed patient to be more confuse and brought to the ER for further evaluation. In ER, she was found to be acidemia w/ pH 7.17, HCo3 15, AG 13, Cr 1.2, PCT 20.01, and tylenol 35. ERP discussed with poison control and plan to start NAC protocol. Received 2 liters IVF bolus and started on sodium bicarbonate infusion 150cc/hr. Short Haul Driver consulted for further management. Of note, patient had a recent admission two months ago for klebsiella UTI complicated with multiorgan failure. She hospitized for a month and transferred to SNF. [facility] Medical History Acute RI Anxiety Arthritis C. difficile colitis Chronic pain Closed left clavicular fracture Colitis Compression fracture of L1 vertebra (~07/2019) COPD (chronic obstructive pulmonary disease) CVA (cerebral vascular accident) Depression Diarrhea DJD (degenerative joint disease) Fibromyalgia Fracture, tibia GI bleeding History of osteomyelitis History of recurrent UTIs HLD (hyperlipidemia) Hypertension Hypertension Insomnia Iron (Fe) deficiency anemia Left foot drop Left rib fracture Lumbar compression fracture (02/26/19) Migraines Multiple fractures Nephrolithiasis Neuropathy Numbness and tingling Osteoporosis Osteoporosis Peptic ulcer disease Pre-diabetes Radius fracture (08/30/17) Renal disease Septic shock Stage 3 chronic kidney disease Surgical History H/O: hysterectomy History of surgery Hx of appendectomy Hx of cholecystectomy Hx of elbow surgery Hx of kyphoplasty (~2013) Hx of kyphoplasty (04/28/19) Hx of kyphoplasty (07/28/19) Hx of tonsillectomy Status post epidural steroid injection (03/25/19) Family History Mother No known health problems COPD (chronic obstructive pulmonary disease) Father No known health problems Social History household members: children and other Smoking Status: Former smoker alcohol intake: current Current Medications Current Medications Medications: Home Medications metoprolol tartrate 25 mg tablet 25 mg PO BID #180 tabs 02/16/22 [Rx Confirmed 09/14/22] gabapentin 300 mg tablet 300 mg PO DAILY 05/02/22 [History Confirmed 09/14/22] apixaban 5 mg tablet (Eliquis) 5 mg PO BID #180 tabs 08/21/22 [Rx Confirmed 09/14/22] bisacodyl 10 mg rectal suppository (Dulcolax (bisacodyl)) 10 mg [place] DAILY PRN 08/21/22 [History Confirmed 09/14/22] polyethylene glycol 3350 17 gram/dose oral powder (Miralax) 17 g PO DAILY 08/21/22 [History Confirmed 09/14/22] sulfamethoxazole 800 mg-trimethoprim 160 mg tablet (Bactrim DS) 1 tab PO BID #14 tabs 09/07/22 [Rx Confirmed 09/14/22] aspirin 81 mg tablet,delayed release (Adult Aspirin Regimen) 81 mg PO DAILY #90 tabs 09/11/22 [Rx Confirmed 09/14/22] atorvastatin 40 mg tablet 40 mg PO DAILY #90 tabs 09/11/22 [Rx Confirmed 09/14/22] methocarbamol 500 mg tablet 500 mg PO BID #60 tabs 09/11/22 [Rx Confirmed 09/14/22] oxycodone 10 mg tablet 10 mg PO Q6H PRN pain #120 tabs 09/14/22 [Rx Confirmed 09/14/22] pantoprazole 40 mg tablet,delayed release (Protonix) 40 mg PO DAILY #90 tabs 09/14/22 [Rx Confirmed 09/14/22] food supplemt, lactose-reduced (Ensure oral liquid) 1 ea PO BID #5,688 mL 09/17/22 [Rx Confirmed 09/17/22] Visit Medications (administered) Generic Name Dose Route Start Last Admin Trade Name Freq PRN Reason Stop Dose Admin Sodium Bicarbonate 150 meq/ 1,150 mls @ 150 mls/hr 09/20/22 07:45 09/20/22 09:08 Dextrose IV 150 mls/hr CONT LACY Administration Exam Vital Signs (past 8 hours): - 09/20/22 01:30 09/20/22 01:30 09/20/22 01:33 Pulse Rate 73 75 Respiratory Rate 8 L 20 Blood Pressure 81/51 L Pulse Oximetry 99 100 09/20/22 01:33 09/20/22 02:00 09/20/22 02:00 Pulse Rate 68 Respiratory Rate 10 L Blood Pressure 100/57 L 91/50 L Pulse Oximetry 99 09/20/22 02:30 09/20/22 02:31 09/20/22 02:31 Pulse Rate 68 70 Respiratory Rate 9 L 11 L Blood Pressure 109/52 L Pulse Oximetry 100 92 09/20/22 03:00 09/20/22 03:00 09/20/22 03:30 Pulse Rate 69 Respiratory Rate 17 Blood Pressure 81/55 L 85/49 L Pulse Oximetry 100 09/20/22 03:30 09/20/22 03:39 09/20/22 03:39 Pulse Rate 70 79 Respiratory Rate 7 L 17 Blood Pressure 135/65 Pulse Oximetry 94 96 09/20/22 04:00 09/20/22 04:00 09/20/22 04:30 Pulse Rate 75 Respiratory Rate 9 L Blood Pressure 113/69 111/56 L Pulse Oximetry 100 09/20/22 04:30 09/20/22 05:00 09/20/22 05:00 Pulse Rate 96 H 80 Respiratory Rate 12 8 L Blood Pressure 93/57 L Pulse Oximetry 100 09/20/22 05:30 09/20/22 05:30 09/20/22 05:33 Pulse Rate 71 Respiratory Rate 9 L Blood Pressure 72/42 L 91/52 L Pulse Oximetry 99 09/20/22 05:33 09/20/22 06:00 09/20/22 06:00 Pulse Rate 74 77 Respiratory Rate 7 L 14 Blood Pressure 106/54 L Pulse Oximetry 98 100 09/20/22 06:30 09/20/22 06:30 09/20/22 07:00 Pulse Rate 71 Respiratory Rate 14 Blood Pressure 85/49 L 77/47 L Pulse Oximetry 100 09/20/22 07:00 09/20/22 07:04 09/20/22 07:04 Pulse Rate 69 70 Respiratory Rate 12 13 Blood Pressure 89/51 L Pulse Oximetry 100 95 09/20/22 07:30 Pulse Rate 69 Respiratory Rate 10 L Blood Pressure Pulse Oximetry Oxygen Delivery Method Room Air Narrative Exam Narrative: Chronically ill appearing; able to respond to questions appropriately Objective Labs 09/19/22 23:30 09/20/22 00:06 Labs: Laboratory Results - last 24 hr 09/19/22 09/19/22 09/19/22 23:30 23:30 23:52 WBC 10.2 RBC 2.81 L Hgb 9.6 L Hct 29.5 L MCV 104.9 H MCH 34.1 H MCHC 32.5 RDW 17.3 H Plt Count 470 H Neut % (Auto) 63.4 Lymph % (Auto) 26.2 [place] % (Auto) 4.8 Eos % (Auto) 4.9 H Baso % (Auto) 0.7 Neut # (Auto) 6400 Lymph # (Auto) 2700 [place] # (Auto) 500 Eos # (Auto) 500 H Baso # (Auto) 100 PT INR APTT ABG pH ABG pCO2 ABG pO2 ABG HCO3 ABG Total CO2 ABG O2 Saturation ABG Base Excess FiO2 Sodium Potassium Chloride Carbon Dioxide BUN Creatinine Estimated GFR BUN/Creatinine Ratio Glucose Lactate 1.0 Calcium Total Bilirubin AST ALT Alkaline Phosphatase Total Creatine Kinase CK-MB (CK-2) CK-MB (CK-2) Rel Index Troponin I Total Protein Albumin Globulin Albumin/Globulin Ratio Procalcitonin Urine Color Urine Appearance Urine pH Ur Specific [place] Urine Protein Urine Glucose (UA) Urine Ketones Urine Occult Blood Urine Nitrate Urine Bilirubin Urine Urobilinogen Ur Leukocyte Esterase Urine RBC Urine WBC Urine Bacteria Ur Culture Indicated? Salicylates U Opiates 300ng/mL cut Ur Oxycodone Screen Urine Methadone Screen Acetaminophen Ur Barbiturates Screen U Tricyclic Antidepress Ur Phencyclidine Scrn Ur Amphetamines Screen U Methamphetamines Scrn Ur MDMA Scrn (Ecstasy) U Benzodiazepines Scrn Urine Cocaine Screen U Marijuana (THC) Screen Ethyl Alcohol Chlamy pneumoniae PCR Not detected Adenovirus (PCR) Not detected B. pertussis DNA (PCR) Not detected B.parapertussis DNA PCR Not detected Coronavirus OC43 (PCR) Not detected Coronavirus HKU1 (PCR) Not detected Coronavirus 229E (PCR) Not detected SARS-CoV-2 (PCR) Not detected Coronavirus NL63 (PCR) Not detected Human Metapneumovir PCR Not detected Influenza Type A (PCR) Not detected Influenza Type B (PCR) Not detected M. pneumoniae (PCR) Not detected Parainfluenza 1 (PCR) Not detected Parainfluenza 2 (PCR) Not detected Parainfluenza 3 (PCR) Not detected Parainfluenza 4 (PCR) Not detected RSV (PCR) Not detected Entero/Rhino (PCR) Not detected 09/20/22 09/20/22 09/20/22 00:06 00:06 00:17 WBC RBC Hgb Hct MCV MCH MCHC RDW Plt Count Neut % (Auto) Lymph % (Auto) [place] % (Auto) Eos % (Auto) Baso % (Auto) Neut # (Auto) Lymph # (Auto) [place] # (Auto) Eos # (Auto) Baso # (Auto) PT 14.0 H INR 1.2 APTT 40 H ABG pH ABG pCO2 ABG pO2 ABG HCO3 ABG Total CO2 ABG O2 Saturation ABG Base Excess FiO2 Sodium 135 L Potassium 4.1 Chloride 108 H Carbon Dioxide 15 L BUN 34 H Creatinine 1.27 H Estimated GFR 45 L BUN/Creatinine Ratio 26.8 H Glucose 103 Lactate Calcium 9.0 Total Bilirubin 0.3 AST 30 ALT 38 H Alkaline Phosphatase 348 H Total Creatine Kinase 40 CK-MB (CK-2) TNP CK-MB (CK-2) Rel Index TNP Troponin I 0.058 H Total Protein 6.9 Albumin 3.5 Globulin 3.4 Albumin/Globulin Ratio 1.0 Procalcitonin 20.1 H Urine Color Yellow Urine Appearance Clear Urine pH 6.0 Ur Specific [place] 1.020 Urine Protein Negative Urine Glucose (UA) Negative Urine Ketones Negative Urine Occult Blood Negative Urine Nitrate Negative Urine Bilirubin Negative Urine Urobilinogen 0.2 Ur Leukocyte Esterase Negative Urine RBC None seen Urine WBC 1-5/hpf Urine Bacteria None seen Ur Culture Indicated? Cult not indicated Salicylates < 1.0 U Opiates 300ng/mL cut Ur Oxycodone Screen Urine Methadone Screen Acetaminophen 37 H Ur Barbiturates Screen U Tricyclic Antidepress Ur Phencyclidine Scrn Ur Amphetamines Screen U Methamphetamines Scrn Ur MDMA Scrn (Ecstasy) U Benzodiazepines Scrn Urine Cocaine Screen U Marijuana (THC) Screen Ethyl Alcohol < 10 Chlamy pneumoniae PCR Adenovirus (PCR) B. pertussis DNA (PCR) B.parapertussis DNA PCR Coronavirus OC43 (PCR) Coronavirus HKU1 (PCR) Coronavirus 229E (PCR) SARS-CoV-2 (PCR) Coronavirus NL63 (PCR) Human Metapneumovir PCR Influenza Type A (PCR) Influenza Type B (PCR) M. pneumoniae (PCR) Parainfluenza 1 (PCR) Parainfluenza 2 (PCR) Parainfluenza 3 (PCR) Parainfluenza 4 (PCR) RSV (PCR) Entero/Rhino (PCR) 09/20/22 09/20/22 09/20/22 00:17 02:28 04:00 WBC RBC Hgb Hct MCV MCH MCHC RDW Plt Count Neut % (Auto) Lymph % (Auto) [place] % (Auto) Eos % (Auto) Baso % (Auto) Neut # (Auto) Lymph # (Auto) [place] # (Auto) Eos # (Auto) Baso # (Auto) PT INR APTT ABG pH ABG pCO2 ABG pO2 ABG HCO3 ABG Total CO2 ABG O2 Saturation ABG Base Excess FiO2 Sodium Potassium Chloride Carbon Dioxide BUN Creatinine Estimated GFR BUN/Creatinine Ratio Glucose Lactate Calcium Total Bilirubin AST ALT Alkaline Phosphatase Total Creatine Kinase 37 CK-MB (CK-2) TNP CK-MB (CK-2) Rel Index TNP Troponin I 0.062 H Total Protein Albumin Globulin Albumin/Globulin Ratio Procalcitonin Urine Color Urine Appearance Urine pH Ur Specific [place] Urine Protein Urine Glucose (UA) Urine Ketones Urine Occult Blood Urine Nitrate Urine Bilirubin Urine Urobilinogen Ur Leukocyte Esterase Urine RBC Urine WBC Urine Bacteria Ur Culture Indicated? Salicylates U Opiates 300ng/mL cut Positive H Ur Oxycodone Screen Positive H Urine Methadone Screen Negative Acetaminophen 35 H Ur Barbiturates Screen Negative U Tricyclic Antidepress Negative Ur Phencyclidine Scrn Negative Ur Amphetamines Screen Negative U Methamphetamines Scrn Negative Ur MDMA Scrn (Ecstasy) Negative U Benzodiazepines Scrn Negative Urine Cocaine Screen Negative U Marijuana (THC) Screen Negative Ethyl Alcohol Chlamy pneumoniae PCR Adenovirus (PCR) B. pertussis DNA (PCR) B.parapertussis DNA PCR Coronavirus OC43 (PCR) Coronavirus HKU1 (PCR) Coronavirus 229E (PCR) SARS-CoV-2 (PCR) Coronavirus NL63 (PCR) Human Metapneumovir PCR Influenza Type A (PCR) Influenza Type B (PCR) M. pneumoniae (PCR) Parainfluenza 1 (PCR) Parainfluenza 2 (PCR) Parainfluenza 3 (PCR) Parainfluenza 4 (PCR) RSV (PCR) Entero/Rhino (PCR) 09/20/22 04:02 WBC RBC Hgb Hct MCV MCH MCHC RDW Plt Count Neut % (Auto) Lymph % (Auto) [place] % (Auto) Eos % (Auto) Baso % (Auto) Neut # (Auto) Lymph # (Auto) [place] # (Auto) Eos # (Auto) Baso # (Auto) PT INR APTT ABG pH 7.17 L* ABG pCO2 37.9 ABG pO2 176 H ABG HCO3 14 L ABG Total CO2 15 L ABG O2 Saturation 99 ABG Base Excess -15.0 L FiO2 28 Sodium Potassium Chloride Carbon Dioxide BUN Creatinine Estimated GFR BUN/Creatinine Ratio Glucose Lactate Calcium Total Bilirubin AST ALT Alkaline Phosphatase Total Creatine Kinase CK-MB (CK-2) CK-MB (CK-2) Rel Index Troponin I Total Protein Albumin Globulin Albumin/Globulin Ratio Procalcitonin Urine Color Urine Appearance Urine pH Ur Specific [place] Urine Protein Urine Glucose (UA) Urine Ketones Urine Occult Blood Urine Nitrate Urine Bilirubin Urine Urobilinogen Ur Leukocyte Esterase Urine RBC Urine WBC Urine Bacteria Ur Culture Indicated? Salicylates U Opiates 300ng/mL cut Ur Oxycodone Screen Urine Methadone Screen Acetaminophen Ur Barbiturates Screen U Tricyclic Antidepress Ur Phencyclidine Scrn Ur Amphetamines Screen U Methamphetamines Scrn Ur MDMA Scrn (Ecstasy) U Benzodiazepines Scrn Urine Cocaine Screen U Marijuana (THC) Screen Ethyl Alcohol Chlamy pneumoniae PCR Adenovirus (PCR) B. pertussis DNA (PCR) B.parapertussis DNA PCR Coronavirus OC43 (PCR) Coronavirus HKU1 (PCR) Coronavirus 229E (PCR) SARS-CoV-2 (PCR) Coronavirus NL63 (PCR) Human Metapneumovir PCR Influenza Type A (PCR) Influenza Type B (PCR) M. pneumoniae (PCR) Parainfluenza 1 (PCR) Parainfluenza 2 (PCR) Parainfluenza 3 (PCR) Parainfluenza 4 (PCR) RSV (PCR) Entero/Rhino (PCR) Assessment & Plan Assessment & Plan narrative: NEURO: # Acute encepahlopathy -- Secondary to severe sepsis, polypharmacy and metabolic derangement -- Sepsis rx as below -- Avoid sedatives -- Daily CAM ICU RESP: -- On room air -- Encourage IS and OOB as tolerated CVS: # Hypotension -- Secodnary to severe sepsis -- Cont aggressive IVF resuscitation -- ON abx as below -- Added stress dose steroids -- MAP goal > 65 ID: # Severe sepsis -- Unclear source of infectious etiology -- Check blood and urine cx -- On vanc/zosyn -- Follow up cx data : # Metabolic acidosis -- Possible related to RTA vs diarrhea -- Cont aggressive IVF resuscitation -- On sodium bicarbonate gtt -- Trend BMP every 6 hours # FE vs CKD -- Cont IVF resuscitation -- Avoid nephrotoxin agents -- Monitor UOP --DAily BMP GI: # Concern for chronic tylenol toxicity -- Plan to start NAC protocol -- Repeat tylenol level now to assess nomogram toxicity level -- Follow by poison control -- Trend LFTs every 6 hours HEME: # Anemia -- NO signs of overt bleed -- Daily CBC -- Goal Hb > 7 ENDO: -- GOal BS < 180 Time Spent With Patient Critical Care time: I spent a total of 35 minutes of critical care time on this patient's care today; this time is exclusive of procedural time.
[2022-09-20] MEDS: WATER IV ×3 (09:52→16:46)
[2022-09-20] MEDS: ACETYLCYSTEINE IV ×3 (09:52→16:46)
[2022-09-20] MEDS: DEXTROSE 5% IV ×3 (09:52→16:46)
[2022-09-20] MEDS: HYDROMORPHONE 0.5 MG INJ (11:11)
[2022-09-20] MEDS: LACTATED RINGERS 1,000 ML 1000 ML IV (11:14)
[2022-09-20 11:28] LABS: Add Manual Diff / Slide Review NO; Basophils Absolute Auto 100 /uL (0-100); Basophils Percent Auto 0.8 % (0-2); Eosinophils Absolute Auto 600 /uL (0-450); Eosinophils Percent Auto 7.5 % (2-4); Hematocrit 26.1 % (36-46); Hemoglobin 8.1 g/dL (12.0-16.0); Lymphocytes Absolute Auto 2800 /uL (1100-4500); Lymphocytes Percent Auto 34.4 % (25-40); Mean Corpuscular HGB Conc 30.9 % (30-36); Mean Corpuscular Hemoglobin 33.6 PG (26-34); Mean Corpuscular Volume 108.6 fL (80-100); Monocytes Absolute Auto 300 /uL (0-900); Monocytes Percent Auto 4.1 % (3-14); Neutrophils Absolute Auto 4300 /uL (1500-7000); Neutrophils Percent Auto 53.2 % (50-75); Platelet Count 394 X10^3/uL (150-400); Red Blood Cell Count 2.41 X10^6/uL (4.0-5.2); White Blood Cell Count 8.1 X10^3/uL (4.5-11.0)
[2022-09-20] MEDS: cefTRIAXone 2,000 MG in SODIUM CHLORIDE 0.9% 100 ML 200 MG IV (11:33)
[2022-09-20] MEDS: CEFEPIME 2 GM in SODIUM CHLORIDE 0.9% 100 ML IV ×2 (11:34→19:53)
[2022-09-20] MEDS: HYDROCORTISONE 100 MG/2 ML VIAL 50 MG IV ×2 (11:35→17:53)
[2022-09-20 11:36] LABS: Alanine Aminotransferase 29 IU/L (<35); Albumin 2.7 g/dL (3.5-5.0); Albumin Globulin Ratio 0.9 (1.0-2.8); Alkaline Phosphatase 81 U/L (38-126); Aspartate Aminotransferase 26 IU/L (14-36); Bilirubin Total 0.3 mg/dL (0.2-1.3); Blood Urea Nitrogen 27 mg/dL (7-17); Calcium 7.4 mg/dL (8.4-10.2); Carbon Dioxide 13 mmol/L (22-32); Chloride 115 mmol/L (98-107); Estimated Glomerular Filt Rate > 60 mL/min (>60); Glucose 138 mg/dL (80-110); HEMOLYSIS 23 (0-50); Magnesium 1.7 mg/dL (1.6-2.3); Potassium 4.1 mmol/L (3.4-5.1); Sodium 139 mmol/L (137-145); Total Protein 5.7 g/dL (6.3-8.2)
[2022-09-20 11:39] LABS: Alanine Aminotransferase 29 IU/L (<35); Albumin 2.5 g/dL (3.5-5.0); Albumin Globulin Ratio 0.9 (1.0-2.8); Alkaline Phosphatase 79 U/L (38-126); Aspartate Aminotransferase 24 IU/L (14-36); Bilirubin Total 0.3 mg/dL (0.2-1.3); Globulin 2.9 g/dL (1.7-4.1); HEMOLYSIS 26 (0-50); Total Protein 5.4 g/dL (6.3-8.2)
[2022-09-20 12:33] LABS: Acetaminophen 13 ug/mL (10-30)
--- NOTE | 2022-09-20 13:31 | DI.ECHO.S_ITS ---
[facility]---------+ [facility] +---------+ : : [address] : : : : [id number] : : : : Phone: [phone]+ Echocardiogram Report + + :Name: MAEVE RODRIGUEZ Study Date: 09/20/2022 Height: 61 in : :[facility] ReadingLocation: Weight: 112 lb : : Gender: Female BSA: 1.5 m2 : :: 1950 Age: 71 yrs BP: 121/58 mmHg: :Reason For Study: ASSESS FOR CONGESTIVE HEART FAILURE : :Ordering Physician: ALBERTO, : :ANGIE Shipley D.O Performed By: Michelle Villatoro : :Referring: ANGIE DOMINGUEZ D.O : + + Interpretation Summary The left ventricle is normal in size and wall thickness. The left ventricle is hyperdynamic. The ejection fraction is estimated to be 70-75%. There are no focal wall motion abnormalities. Diastolic parameters suggest a relaxation abnormality of the left ventricle, consistent with probable normal filling pressures. The right ventricle is normal in size and function. The left atrial size is normal. Right atrial size is normal. There is no Doppler evidence for an interatrial shunt. Lipomatous hypertrophy of the interatrial septum is noted. There is no significant valvular heart disease. The aortic root is normal size. Procedure: The study quality was technically adequate. The study quality was technically difficult. There is no prior echocardiogram noted for this patient. The patient was in sinus rhythm with heart rates between 85-96 bpm during the exam. Left Ventricle: The left ventricle is normal in size and wall thickness. The left ventricle is hyperdynamic. The ejection fraction is estimated to be 70- 75%. There are no focal wall motion abnormalities. Diastolic parameters suggest a relaxation abnormality of the left ventricle, consistent with probable normal filling pressures. Right Ventricle: The right ventricle is normal in size and function. Atria: The left atrial size is normal. Right atrial size is normal. There is no Doppler evidence for an interatrial shunt. Lipomatous hypertrophy of the interatrial septum is noted. Mitral Valve: The mitral valve is normal in structure and function. There is trace mitral regurgitation. Aortic Valve: The aortic valve is trileaflet. The aortic valve opens well. There is no aortic valve stenosis. No aortic regurgitation is present. Tricuspid Valve: The tricuspid valve is normal in structure and function. There is trace tricuspid regurgitation. Pulmonic Valve: The pulmonic valve leaflets are thin and pliable; valve motion is normal. There is trace pulmonic regurgitation. There is no significant valvular heart disease. Great Vessels: The aortic root is normal size. The dimensions of the ascending aorta are normal. The IVC is of normal diameter and collapses greater than 50% with a sniff. This suggests a low right atrial pressure of 3 mm Hg. Pericardium/ Pleura There is no pericardial effusion. There is no pleural effusion. MMode/2D Measurements & Calculations LVIDd: 4.1 cm LVOT diam: 2.0 cm LVIDs: 2.5 cm Ao root diam: 3.0 cm FS: 38.5 % Ao Arch Diam (Prox Trans): 2.0 cm IVSd: 0.72 cm LVPWd: 0.92 cm LV delgado. diameter/BSA (cm/m^2): 2.8 LV sys. diameter/BSA (cm/m^2): 1.7 LA A2 area: 11.6 cm2 RA long axis: 4.7 cm LA A4 area: 12.1 cm2 RA area: 11.5 cm2 LA length (vol): 4.8 cm RA vol: 24.1 ml LA vol: 24.8 ml RA : 16.3 ml/m2 LA vol index: 16.8 ml/m2 IVC diam: 1.7 cm RVD1 (basal): 2.8 cm RVD2 (mid): 2.7 cm TAPSE: 2.7 cm Doppler Measurements & Calculations Ao V2 max: 125.3 cm/sec LVOT Max Graham: 123.1 cm/sec Ao V2 mean: 95.4 cm/sec LV V1 max P.1 mmHg Ao max P.3 mmHg LV V1 VTI: 22.0 cm Ao mean P.0 mmHg CHRISTY(I,D): 2.8 cm2 Ao V2 VTI: 25.8 cm CHRISTY(V,D): 3.2 cm2 sev ratio: 0.85 CHRISTY indexed to BSA (cm^2/m^2): 1.9 MV E max graham: 71.3 cm/sec PA V2 max: 135.7 cm/sec MV A max graham: 86.9 cm/sec PA V2 mean: 103.6 cm/sec MV E/A: 0.82 PA mean P.7 mmHg Med Peak E' Graham: 7.4 cm/sec E/E' med: 9.7 Lat Peak E' Graham: 10.2 cm/sec E/E' lat: 7.0 E/e' average: 8.3 MV dec time: 0.17 sec SV(LVOT): 72.3 ml Reading Physician:05:52 PM
--- NOTE | 2022-09-20 16:53 | CM.DANOTE ---
DCP: Assessment: Patient is a 71 yo female who admitted via ambulance with altered mental status, noted to have non-anion gap metabolic acidosis, tylenol overdose, shock, myocardial demand. She has a hx of CKD, CVA, C diff, COPD. PCP: Jairo Powers Insurance: Medicare; Medicaid This CM met with son in room. Pt resting with eyes closed. SonFrancis confirms that he lives with pt in [place]. He states that she has not driven since he was little and that she uses a walker and w/c at home. Plan: SNF placement when medically stable. Will need to review choices with pt and son. Augusta Gil RN Case Manager Discharge Planning/Care Management CM Discharge Assessment Start: 09/20/22 16:45 Freq: Status: Active Protocol: Document 09/20/22 16:46 JS (Rec: 09/20/22 16:53 EVELINA [email or web address]) Discharge Planning Assessment Assigned Automatic Pattern Edger Augusta Gil RN Case Manager Advance Directives? Yes Advance Directives on File No History Provided By Patient,Family Member,Medical Record Has Patient been admitted in last 30 No days? Prior Living Arrangements House Household Members other,children Comment Pt's son Francis lives with her Type of transporation used prior to Relies on Others admit Comment Pt's son reports that she drove when he was little but not since then Independent with ADL's Yes Is patient alert and oriented? Yes Caregiver for Another No Comment Son per historian reports that pt uses a walker at home Patient/Family Preference Intermediate Facility Barriers to Discharge No Discharge Plan Home Transportation Arrangement Son available Referrals Initiated Intermediate Additional [facility] she has been engaged in [facility] services for years. If patient plan is SNF: Has PASSR been Yes completed? Whiteboard Updated in Patient Room with Yes name and ext. # of Automatic Pattern Edger Review Status In Process Next Review Type Continued Stay Review
[2022-09-20 18:07] LABS: BUN Creatinine Ratio 30.1 (6-22); Blood Urea Nitrogen 22 mg/dL (7-17); Calcium 7.5 mg/dL (8.4-10.2); Carbon Dioxide 18 mmol/L (22-32); Chloride 110 mmol/L (98-107); Estimated Glomerular Filt Rate > 60 mL/min (>60); Glucose 289 mg/dL (80-110); Sodium 137 mmol/L (137-145)
[2022-09-20 18:09] LABS: HEMOLYSIS 284 (0-50); Potassium 4.7 mmol/L (3.4-5.1)
--- NOTE | 2022-09-20 18:38 | PC.NURSE ---
1830--pt's b/p 170s/80s in 2 limbs and manually; Dr Vital notified; will continue to monitor; son at bedside and he contacted home health provider; home med list verified
[2022-09-20 19:22] LABS: Potassium Urine Random 17.1 mmol/L; Sodium Urine Random 44 mmol/L (30-90)
--- NOTE | 2022-09-20 20:38 | PM.ICURNDS ---
- Date Patient Seen: 09/20/22 Time Patient Seen: 20:38 :: This patient was seen via real time interactive two-way audiovisual telecommunication. Note: pt afebrile, HD stable making adequate urine repeat labs pending can dc NAQ 2nd tylenol level less
[2022-09-20 21:09] LABS: Fractionated Inspired Oxygen 21; HCO3 ABG 20 mmol/L (23-27); Oxygen Saturation ABG 97 % (95-100); PCO2 ABG 36.6 mmHg (35-45); PO2 ABG 92 mmHg (80-100); TCO2 ABG 21 mmol/L (23-27); pH ABG 7.35 (7.35-7.45)
[2022-09-20 21:22] LABS: Add Manual Diff / Slide Review NO; Basophils Absolute Auto 0 /uL (0-100); Basophils Percent Auto 0.9 % (0-2); Eosinophils Absolute Auto 0 /uL (0-450); Eosinophils Percent Auto 0.1 % (2-4); Hematocrit 28.6 % (36-46); Hemoglobin 9.5 g/dL (12.0-16.0); Lymphocytes Absolute Auto 900 /uL (1100-4500); Lymphocytes Percent Auto 18.5 % (25-40); Mean Corpuscular HGB Conc 33.2 % (30-36); Mean Corpuscular Hemoglobin 34.3 PG (26-34); Mean Corpuscular Volume 103.4 fL (80-100); Monocytes Absolute Auto 100 /uL (0-900); Monocytes Percent Auto 1.1 % (3-14); Neutrophils Absolute Auto 4000 /uL (1500-7000); Neutrophils Percent Auto 79.4 % (50-75); Platelet Count 402 X10^3/uL (150-400); Red Blood Cell Count 2.76 X10^6/uL (4.0-5.2); Red Cell Distribution Width 17.4 % (11.6-14.8); White Blood Cell Count 5.1 X10^3/uL (4.5-11.0)
[2022-09-20] MEDS: HEPARIN 5,000 UNIT/ML VIAL 5000 UNIT SUBCUT (21:28)
[2022-09-20 21:30] LABS: INR 1.4 (0.9-1.3); Prothrombin Time 15.6 SECONDS (10.1-12.7)
[2022-09-20 21:36] LABS: Alanine Aminotransferase 30 IU/L (<35); Albumin 2.9 g/dL (3.5-5.0); Albumin Globulin Ratio 0.9 (1.0-2.8); Alkaline Phosphatase 195 U/L (38-126); Aspartate Aminotransferase 31 IU/L (14-36); BUN Creatinine Ratio 29.2 (6-22); Bilirubin Total 0.5 mg/dL (0.2-1.3); Blood Urea Nitrogen 21 mg/dL (7-17); Calcium 7.7 mg/dL (8.4-10.2); Carbon Dioxide 20 mmol/L (22-32); Chloride 107 mmol/L (98-107); Estimated Glomerular Filt Rate > 60 mL/min (>60); Globulin 3.3 g/dL (1.7-4.1); Glucose 301 mg/dL (80-110); Lactate (Lactic Acid) 1.7 mmol/L (0.7-2.1); Sodium 136 mmol/L (137-145); Total Protein 6.2 g/dL (6.3-8.2)
[2022-09-20 21:37] LABS: HEMOLYSIS 83 (0-50); Potassium 3.2 mmol/L (3.4-5.1)
[2022-09-20 22:40] LABS: Acetaminophen < 10 ug/mL (10-30)
[2022-09-21] VITALS (28 sets, daily range): BP systolic 94–157; BP diastolic 53–94; PULSE 79–128; RESP 18; TEMP 36.6–36.7; O2SAT 88–100
[2022-09-21] MEDS: SODIUM BICARB 8.4% VIAL 150 MEQ in DEXTROSE 5% WATER 1,000 ML 100 MEQ IV (02:12)
[2022-09-21] MEDS: HYDROMORPHONE 1 MG INJ IV ×7 (03:03→21:51)
[2022-09-21] MEDS: VANCOMYCIN 750 MG/150 ML PIGGYBACK 150 MG IV (03:03)
[2022-09-21 06:32] LABS: Add Manual Diff / Slide Review NO; Basophils Absolute Auto 200 /uL (0-100); Basophils Percent Auto 3.7 % (0-2); Eosinophils Absolute Auto 100 /uL (0-450); Eosinophils Percent Auto 1.7 % (2-4); Hematocrit 24.1 % (36-46); Lymphocytes Absolute Auto 1400 /uL (1100-4500); Lymphocytes Percent Auto 22.5 % (25-40); Mean Corpuscular HGB Conc 33.3 % (30-36); Mean Corpuscular Hemoglobin 34.2 PG (26-34); Mean Corpuscular Volume 102.7 fL (80-100); Monocytes Absolute Auto 400 /uL (0-900); Monocytes Percent Auto 5.8 % (3-14); Neutrophils Absolute Auto 4000 /uL (1500-7000); Neutrophils Percent Auto 66.3 % (50-75); Platelet Count 328 X10^3/uL (150-400); Red Blood Cell Count 2.35 X10^6/uL (4.0-5.2); White Blood Cell Count 6.1 X10^3/uL (4.5-11.0)
[2022-09-21 06:34] LABS: Alanine Aminotransferase 26 IU/L (<35); Albumin 2.6 g/dL (3.5-5.0); Albumin Globulin Ratio 0.9 (1.0-2.8); Alkaline Phosphatase 213 U/L (38-126); Aspartate Aminotransferase 24 IU/L (14-36); BUN Creatinine Ratio 30.6 (6-22); Bilirubin Total 0.2 mg/dL (0.2-1.3); Blood Urea Nitrogen 19 mg/dL (7-17); Carbon Dioxide 28 mmol/L (22-32); Chloride 103 mmol/L (98-107); Estimated Glomerular Filt Rate > 60 mL/min (>60); Globulin 2.9 g/dL (1.7-4.1); Glucose 164 mg/dL (80-110); HEMOLYSIS 34 (0-50); Magnesium 1.4 mg/dL (1.6-2.3); Sodium 137 mmol/L (137-145); Total Protein 5.5 g/dL (6.3-8.2)
[2022-09-21 06:35] LABS: Calcium 7.5 mg/dL (8.4-10.2)
--- NOTE | 2022-09-21 06:48 | PC.NURSE ---
hourly shift: Visualized sacral healing wound. Scab peeled back, blanchable around the open area. Assisted to her side to offload pressure. Patient immediately repositioned to her back. Provided patient with education on pressure injuries and prevention. Patient non-compliant. Allevyn placed over sacral wound.
[2022-09-21 06:55] LABS: Potassium 2.5 mmol/L (3.4-5.1)
--- NOTE | 2022-09-21 07:51 | PM.PN.1 ---
Subjective Subjective Date Patient Seen: 09/21/22 Interval history: Patient much more alert and looking better today. She says she is willing to work with PT/OT. A 17 minute GOC convo was had about if patient needed SNF would she go. She says she has been to SNF's twice in the past and she feels that she does better at home. She continues to want all treatment, including CPR and a ventilator if needed but if she was not improving or was brain she would want to be let go. She remains full code. Bicarb levels on BMP have stayed steady through the day. Still awaiting urine chloride levels to diagnose RTA. Exam Vital Signs (past 8 hours): - 09/21/22 00:00 09/21/22 00:00 09/21/22 01:00 Temperature Pulse Rate 84 Blood Pressure 94/53 L 124/67 Pulse Oximetry 99 Oxygen Delivery Method Oxygen Flow Rate 09/21/22 01:00 09/21/22 02:24 09/21/22 02:00 Temperature Pulse Rate 85 Blood Pressure 137/78 Pulse Oximetry 97 97 Oxygen Delivery Method Room Air Oxygen Flow Rate 0 09/21/22 02:00 09/21/22 03:00 09/21/22 03:00 Temperature Pulse Rate 86 86 Blood Pressure 123/76 Pulse Oximetry 98 97 Oxygen Delivery Method Oxygen Flow Rate 09/21/22 04:00 09/21/22 04:00 09/21/22 05:00 Temperature Pulse Rate 81 Blood Pressure 132/63 135/63 Pulse Oximetry 98 Oxygen Delivery Method Oxygen Flow Rate 09/21/22 05:00 09/21/22 05:35 09/21/22 06:00 Temperature 97.9 F Pulse Rate 79 Blood Pressure Pulse Oximetry 100 98 Oxygen Delivery Method Room Air Oxygen Flow Rate 0 Oxygen Delivery Method Room Air Oxygen Flow Rate 0 Narrative Exam Narrative: GEN: Alert and awake, much more interactive today, oriented HEENT: moist mucous membranes, PERRL NECK: trachea midline, no JVD CV: regular rate and rhythm, no murmurs PULM: clear bilaterally ABD: soft, nontender, nondistended, no organomegaly EXT: warm and well perfused with no edema NEURO: no focal deficits Objective Labs 09/21/22 06:00 09/21/22 06:00 Labs: Laboratory Results - last 24 hr 09/20/22 09/20/22 09/20/22 11:00 11:00 11:00 WBC 8.1 RBC 2.41 L Hgb 8.1 L Hct 26.1 L MCV 108.6 H D MCH 33.6 MCHC 30.9 RDW 18.0 H Plt Count 394 Neut % (Auto) 53.2 Lymph % (Auto) 34.4 [place] % (Auto) 4.1 Eos % (Auto) 7.5 H Baso % (Auto) 0.8 Neut # (Auto) 4300 Lymph # (Auto) 2800 [place] # (Auto) 300 Eos # (Auto) 600 H Baso # (Auto) 100 PT INR ABG pH ABG pCO2 ABG pO2 ABG HCO3 ABG Total CO2 ABG O2 Saturation ABG Base Excess FiO2 Sodium 139 Potassium 4.1 Chloride 115 H Carbon Dioxide 13 L BUN 27 H Creatinine 0.87 Estimated GFR > 60 BUN/Creatinine Ratio 31.0 H Glucose 138 H Lactate Calcium 7.4 L Magnesium 1.7 Total Bilirubin 0.3 Conjugated Bilirubin Unconjugated Bilirubin AST 26 ALT 29 Alkaline Phosphatase 81 D Total Protein 5.7 L Albumin 2.7 L Globulin 3.0 Albumin/Globulin Ratio 0.9 L Ur Random Sodium Ur Random Potassium Nasal Screen MRSA (PCR) Acetaminophen 13 09/20/22 09/20/22 09/20/22 11:00 15:20 17:43 WBC RBC Hgb Hct MCV MCH MCHC RDW Plt Count Neut % (Auto) Lymph % (Auto) [place] % (Auto) Eos % (Auto) Baso % (Auto) Neut # (Auto) Lymph # (Auto) [place] # (Auto) Eos # (Auto) Baso # (Auto) PT INR ABG pH ABG pCO2 ABG pO2 ABG HCO3 ABG Total CO2 ABG O2 Saturation ABG Base Excess FiO2 Sodium 137 Potassium 4.7 Chloride 110 H Carbon Dioxide 18 L BUN 22 H Creatinine 0.73 Estimated GFR > 60 BUN/Creatinine Ratio 30.1 H Glucose 289 H D Lactate Calcium 7.5 L Magnesium Total Bilirubin 0.3 Conjugated Bilirubin 0.0 Unconjugated Bilirubin 0.0 AST 24 ALT 29 Alkaline Phosphatase 79 Total Protein 5.4 L Albumin 2.5 L Globulin 2.9 Albumin/Globulin Ratio 0.9 L Ur Random Sodium 44 Ur Random Potassium 17.1 Nasal Screen MRSA (PCR) Acetaminophen 09/20/22 09/20/22 09/20/22 20:50 21:00 21:00 WBC 5.1 RBC 2.76 L Hgb 9.5 L Hct 28.6 L MCV 103.4 H D MCH 34.3 H MCHC 33.2 RDW 17.4 H Plt Count 402 H Neut % (Auto) 79.4 H D Lymph % (Auto) 18.5 L [place] % (Auto) 1.1 L Eos % (Auto) 0.1 L Baso % (Auto) 0.9 Neut # (Auto) 4000 Lymph # (Auto) 900 L [place] # (Auto) 100 Eos # (Auto) 0 Baso # (Auto) 0 PT 15.6 H INR 1.4 H ABG pH 7.35 ABG pCO2 36.6 ABG pO2 92 ABG HCO3 20 L ABG Total CO2 21 L ABG O2 Saturation 97 ABG Base Excess -5.0 L FiO2 21 Sodium Potassium Chloride Carbon Dioxide BUN Creatinine Estimated GFR BUN/Creatinine Ratio Glucose Lactate Calcium Magnesium Total Bilirubin Conjugated Bilirubin Unconjugated Bilirubin AST ALT Alkaline Phosphatase Total Protein Albumin Globulin Albumin/Globulin Ratio Ur Random Sodium Ur Random Potassium Nasal Screen MRSA (PCR) Acetaminophen 09/20/22 09/20/22 09/20/22 21:00 21:00 21:00 WBC RBC Hgb Hct MCV MCH MCHC RDW Plt Count Neut % (Auto) Lymph % (Auto) [place] % (Auto) Eos % (Auto) Baso % (Auto) Neut # (Auto) Lymph # (Auto) [place] # (Auto) Eos # (Auto) Baso # (Auto) PT INR ABG pH ABG pCO2 ABG pO2 ABG HCO3 ABG Total CO2 ABG O2 Saturation ABG Base Excess FiO2 Sodium 136 L Potassium 3.2 L D Chloride 107 Carbon Dioxide 20 L BUN 21 H Creatinine 0.72 Estimated GFR > 60 BUN/Creatinine Ratio 29.2 H Glucose 301 H Lactate 1.7 Calcium 7.7 L Magnesium Total Bilirubin 0.5 Conjugated Bilirubin Unconjugated Bilirubin AST 31 ALT 30 Alkaline Phosphatase 195 H D Total Protein 6.2 L Albumin 2.9 L Globulin 3.3 Albumin/Globulin Ratio 0.9 L Ur Random Sodium Ur Random Potassium Nasal Screen MRSA (PCR) Acetaminophen < 10 09/21/22 09/21/22 09/21/22 03:00 06:00 06:00 WBC 6.1 RBC 2.35 L Hgb 8.0 L Hct 24.1 L MCV 102.7 H MCH 34.2 H MCHC 33.3 RDW 17.0 H Plt Count 328 Neut % (Auto) 66.3 Lymph % (Auto) 22.5 L [place] % (Auto) 5.8 Eos % (Auto) 1.7 L Baso % (Auto) 3.7 H Neut # (Auto) 4000 Lymph # (Auto) 1400 [place] # (Auto) 400 Eos # (Auto) 100 Baso # (Auto) 200 H PT INR ABG pH ABG pCO2 ABG pO2 ABG HCO3 ABG Total CO2 ABG O2 Saturation ABG Base Excess FiO2 Sodium 137 Potassium 2.5 L* Chloride 103 Carbon Dioxide 28 BUN 19 H Creatinine 0.62 Estimated GFR > 60 BUN/Creatinine Ratio 30.6 H Glucose 164 H D Lactate Calcium 7.5 L Magnesium 1.4 L Total Bilirubin 0.2 Conjugated Bilirubin Unconjugated Bilirubin AST 24 ALT 26 Alkaline Phosphatase 213 H Total Protein 5.5 L Albumin 2.6 L Globulin 2.9 Albumin/Globulin Ratio 0.9 L Ur Random Sodium Ur Random Potassium Nasal Screen MRSA (PCR) Negative for mrsa Acetaminophen PFSH Medical History Acute IN Anxiety Arthritis C. difficile colitis Chronic pain Closed left clavicular fracture Colitis Compression fracture of L1 vertebra (~07/2019) COPD (chronic obstructive pulmonary disease) CVA (cerebral vascular accident) Depression Diarrhea DJD (degenerative joint disease) Fibromyalgia Fracture, tibia GI bleeding History of osteomyelitis History of recurrent UTIs HLD (hyperlipidemia) Hypertension Hypertension Insomnia Iron (Fe) deficiency anemia Left foot drop Left rib fracture Lumbar compression fracture (02/26/19) Migraines Multiple fractures Nephrolithiasis Neuropathy Numbness and tingling Osteoporosis Osteoporosis Peptic ulcer disease Pre-diabetes Radius fracture (08/30/17) Renal disease Septic shock Stage 3 chronic kidney disease Surgical History H/O: hysterectomy History of surgery Hx of appendectomy Hx of cholecystectomy Hx of elbow surgery Hx of kyphoplasty (~2013) Hx of kyphoplasty (04/28/19) Hx of kyphoplasty (07/28/19) Hx of tonsillectomy Status post epidural steroid injection (03/25/19) Family History Mother No known health problems COPD (chronic obstructive pulmonary disease) Father No known health problems Social History household members: children and other Smoking Status: Former smoker alcohol intake: current Assessment & Plan Assessment & Plan narrative: # non-anion gap metabolic acidosis -ABG with pH of 7.17 on admission -unclear etiology, patient denies diarrhea -possibly renal tubular acidosis -now off bicarb drip and checking BMP at 1800 to see if bicarb dropping -urine lytes back except urine chloride, if urine gap positive then will start po bicarb at 650mg BID for RTA per ICU doc and continue on discharge -beta hydroxybutyrate pending # tylenol overdose -tylenol level of 35, previous overdoses much higher -poison control recommended completing full course of NAC, finished on 09/20 -repeat tylenol now 13 -avoid Tylenol and [place] # shock with concern for sepsis, hypotension now resolved -BP improved with fluid boluses, pressors not needed -continue broad spectrum abx until cultures return in case of sepsis, procal 20 -ICU doc recommended 7 days of levaquin po for culture negative sepsis -echo reassuring with EF 70-75%, diastolic dysfunction present -stopped stress steroids # hypokalemia -K 2.5 on 09/21 -replete and monitor # diastolic CHF -not in exacerbation -see echo above # myocardial demand ischemia -troponin elevated to 0.062, no chest pain or EKG changes -trend trops and check echo as above # failure to thrive -patient essentially bedbound for several months and stays in the house 11/03 smoking a vape at all hours of the day per boyfriend -after discussion with patient she wants to continue living, she is confident she can manage at home and would not want SNF. She remains a full code. 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 -The patient is at much higher risk for medical and surgical complications because of his malnutrition. This increases the difficulty and complexity of medical and surgical interventions and increases the chances of poor outcomes such as morbidity and mortality. Code status is full code. COVID negative. DVT prophylaxis with heparin SQ. Proxy is stephie Blanco. Dispo: Home on 09/22 likely. Time Spent With Patient Critical Care time: I spent a total of [] minutes of critical care time on this patient's care today; this time is exclusive of procedural time.
[2022-09-21] MEDS: HEPARIN 5,000 UNIT/ML VIAL 5000 UNIT SUBCUT ×2 (08:14→21:51)
[2022-09-21] MEDS: MAGNESIUM SULFATE 4 GM/100 ML PIGGYBACK IV (08:20)
[2022-09-21] MEDS: POTASSIUM CHLORIDE 20 MEQ/15 ML UDC 60 MEQ PO (08:20)
[2022-09-21] MEDS: CEFEPIME 2 GM in SODIUM CHLORIDE 0.9% 100 ML IV (08:41)
--- NOTE | 2022-09-21 09:27 | PM.PN.EICU ---
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 Metabolic acidosis improving w/ sodium bicarbonate gtt. K and Mg repleted. Hypotension resolved. Current Medications Current Medications Medications: Home Medications gabapentin 300 mg tablet 300 mg PO DAILY 05/02/22 [History Confirmed 09/20/22] apixaban 5 mg tablet (Eliquis) 5 mg PO BID #180 tabs 08/21/22 [Rx Confirmed 09/20/22] bisacodyl 10 mg rectal suppository (Dulcolax (bisacodyl)) 10 mg OR DAILY PRN Constipation 08/21/22 [History Confirmed 09/20/22] polyethylene glycol 3350 17 gram/dose oral powder (Miralax) 17 g PO DAILY 08/21/22 [History Confirmed 09/20/22] aspirin 81 mg tablet,delayed release (Adult Aspirin Regimen) 81 mg PO DAILY #90 tabs 09/11/22 [Rx Confirmed 09/20/22] atorvastatin 40 mg tablet 40 mg PO DAILY #90 tabs 09/11/22 [Rx Confirmed 09/20/22] methocarbamol 500 mg tablet 500 mg PO BID #60 tabs 09/11/22 [Rx Confirmed 09/20/22] oxycodone 10 mg tablet 10 mg PO Q6H PRN pain #120 tabs 09/14/22 [Rx Confirmed 09/20/22] pantoprazole 40 mg tablet,delayed release (Protonix) 40 mg PO DAILY #90 tabs 09/14/22 [Rx Confirmed 09/20/22] metoprolol tartrate 25 mg tablet 12.5 mg PO BID 09/20/22 [History Confirmed 09/20/22] Visit Medications (administered) Generic Name Dose Route Start Last Admin Trade Name Freq PRN Reason Stop Dose Admin Heparin Sodium (Porcine) 5,000 unit 09/20/22 21:00 09/21/22 08:14 Heparin 5,000 Unit/Ml Vial SUBCUT 5,000 unit BID LACY Administration Hydromorphone HCl 1 mg 09/20/22 23:58 09/21/22 08:40 Hydromorphone 1 Mg Inj IV 1 mg Q3H PRN Administration Pain, Severe (7-10) Sodium Bicarbonate 150 meq/ 1,150 mls @ 100 mls/hr 09/20/22 07:45 09/21/22 02:12 Dextrose IV 100 mls/hr CONT LACY Administration Cefepime HCl 2 gm/ Sodium 100 mls @ 200 mls/hr 09/20/22 07:45 09/21/22 08:41 Chloride IV 200 mls/hr Q12H LACY Administration Vancomycin HCl 750 mg in 150 mls @ 150 mls/hr 09/21/22 03:00 09/21/22 04:21 Vancomycin IV Infused Q24H LACY Infusion Magnesium Sulfate 4 gm in 100 mls @ 25 mls/hr 09/21/22 07:01 09/21/22 08:20 Magnesium Sulfate IV 09/21/22 11:00 25 mls/hr NOW ONE Administration Objective Labs 09/21/22 06:00 09/21/22 06:00 Labs: Laboratory Results - last 24 hr 09/20/22 09/20/22 09/20/22 11:00 11:00 11:00 WBC 8.1 RBC 2.41 L Hgb 8.1 L Hct 26.1 L MCV 108.6 H D MCH 33.6 MCHC 30.9 RDW 18.0 H Plt Count 394 Neut % (Auto) 53.2 Lymph % (Auto) 34.4 [place] % (Auto) 4.1 Eos % (Auto) 7.5 H Baso % (Auto) 0.8 Neut # (Auto) 4300 Lymph # (Auto) 2800 [place] # (Auto) 300 Eos # (Auto) 600 H Baso # (Auto) 100 PT INR ABG pH ABG pCO2 ABG pO2 ABG HCO3 ABG Total CO2 ABG O2 Saturation ABG Base Excess FiO2 Sodium 139 Potassium 4.1 Chloride 115 H Carbon Dioxide 13 L BUN 27 H Creatinine 0.87 Estimated GFR > 60 BUN/Creatinine Ratio 31.0 H Glucose 138 H Lactate Calcium 7.4 L Magnesium 1.7 Total Bilirubin 0.3 Conjugated Bilirubin Unconjugated Bilirubin AST 26 ALT 29 Alkaline Phosphatase 81 D Total Protein 5.7 L Albumin 2.7 L Globulin 3.0 Albumin/Globulin Ratio 0.9 L Ur Random Sodium Ur Random Potassium Nasal Screen MRSA (PCR) Acetaminophen 13 09/20/22 09/20/22 09/20/22 11:00 15:20 17:43 WBC RBC Hgb Hct MCV MCH MCHC RDW Plt Count Neut % (Auto) Lymph % (Auto) [place] % (Auto) Eos % (Auto) Baso % (Auto) Neut # (Auto) Lymph # (Auto) [place] # (Auto) Eos # (Auto) Baso # (Auto) PT INR ABG pH ABG pCO2 ABG pO2 ABG HCO3 ABG Total CO2 ABG O2 Saturation ABG Base Excess FiO2 Sodium 137 Potassium 4.7 Chloride 110 H Carbon Dioxide 18 L BUN 22 H Creatinine 0.73 Estimated GFR > 60 BUN/Creatinine Ratio 30.1 H Glucose 289 H D Lactate Calcium 7.5 L Magnesium Total Bilirubin 0.3 Conjugated Bilirubin 0.0 Unconjugated Bilirubin 0.0 AST 24 ALT 29 Alkaline Phosphatase 79 Total Protein 5.4 L Albumin 2.5 L Globulin 2.9 Albumin/Globulin Ratio 0.9 L Ur Random Sodium 44 Ur Random Potassium 17.1 Nasal Screen MRSA (PCR) Acetaminophen 09/20/22 09/20/22 09/20/22 20:50 21:00 21:00 WBC 5.1 RBC 2.76 L Hgb 9.5 L Hct 28.6 L MCV 103.4 H D MCH 34.3 H MCHC 33.2 RDW 17.4 H Plt Count 402 H Neut % (Auto) 79.4 H D Lymph % (Auto) 18.5 L [place] % (Auto) 1.1 L Eos % (Auto) 0.1 L Baso % (Auto) 0.9 Neut # (Auto) 4000 Lymph # (Auto) 900 L [place] # (Auto) 100 Eos # (Auto) 0 Baso # (Auto) 0 PT 15.6 H INR 1.4 H ABG pH 7.35 ABG pCO2 36.6 ABG pO2 92 ABG HCO3 20 L ABG Total CO2 21 L ABG O2 Saturation 97 ABG Base Excess -5.0 L FiO2 21 Sodium Potassium Chloride Carbon Dioxide BUN Creatinine Estimated GFR BUN/Creatinine Ratio Glucose Lactate Calcium Magnesium Total Bilirubin Conjugated Bilirubin Unconjugated Bilirubin AST ALT Alkaline Phosphatase Total Protein Albumin Globulin Albumin/Globulin Ratio Ur Random Sodium Ur Random Potassium Nasal Screen MRSA (PCR) Acetaminophen 09/20/22 09/20/22 09/20/22 21:00 21:00 21:00 WBC RBC Hgb Hct MCV MCH MCHC RDW Plt Count Neut % (Auto) Lymph % (Auto) [place] % (Auto) Eos % (Auto) Baso % (Auto) Neut # (Auto) Lymph # (Auto) [place] # (Auto) Eos # (Auto) Baso # (Auto) PT INR ABG pH ABG pCO2 ABG pO2 ABG HCO3 ABG Total CO2 ABG O2 Saturation ABG Base Excess FiO2 Sodium 136 L Potassium 3.2 L D Chloride 107 Carbon Dioxide 20 L BUN 21 H Creatinine 0.72 Estimated GFR > 60 BUN/Creatinine Ratio 29.2 H Glucose 301 H Lactate 1.7 Calcium 7.7 L Magnesium Total Bilirubin 0.5 Conjugated Bilirubin Unconjugated Bilirubin AST 31 ALT 30 Alkaline Phosphatase 195 H D Total Protein 6.2 L Albumin 2.9 L Globulin 3.3 Albumin/Globulin Ratio 0.9 L Ur Random Sodium Ur Random Potassium Nasal Screen MRSA (PCR) Acetaminophen < 10 09/21/22 09/21/22 09/21/22 03:00 06:00 06:00 WBC 6.1 RBC 2.35 L Hgb 8.0 L Hct 24.1 L MCV 102.7 H MCH 34.2 H MCHC 33.3 RDW 17.0 H Plt Count 328 Neut % (Auto) 66.3 Lymph % (Auto) 22.5 L [place] % (Auto) 5.8 Eos % (Auto) 1.7 L Baso % (Auto) 3.7 H Neut # (Auto) 4000 Lymph # (Auto) 1400 [place] # (Auto) 400 Eos # (Auto) 100 Baso # (Auto) 200 H PT INR ABG pH ABG pCO2 ABG pO2 ABG HCO3 ABG Total CO2 ABG O2 Saturation ABG Base Excess FiO2 Sodium 137 Potassium 2.5 L* Chloride 103 Carbon Dioxide 28 BUN 19 H Creatinine 0.62 Estimated GFR > 60 BUN/Creatinine Ratio 30.6 H Glucose 164 H D Lactate Calcium 7.5 L Magnesium 1.4 L Total Bilirubin 0.2 Conjugated Bilirubin Unconjugated Bilirubin AST 24 ALT 26 Alkaline Phosphatase 213 H Total Protein 5.5 L Albumin 2.6 L Globulin 2.9 Albumin/Globulin Ratio 0.9 L Ur Random Sodium Ur Random Potassium Nasal Screen MRSA (PCR) Negative for mrsa Acetaminophen Exam Vital Signs (past 8 hours): - 09/21/22 02:24 09/21/22 02:00 09/21/22 02:00 Temperature Pulse Rate 86 Blood Pressure 137/78 Pulse Oximetry 97 98 Oxygen Delivery Method Room Air Oxygen Flow Rate 0 09/21/22 03:00 09/21/22 03:00 09/21/22 04:00 Temperature Pulse Rate 86 Blood Pressure 123/76 132/63 Pulse Oximetry 97 Oxygen Delivery Method Oxygen Flow Rate 09/21/22 04:00 09/21/22 05:00 09/21/22 05:00 Temperature Pulse Rate 81 79 Blood Pressure 135/63 Pulse Oximetry 98 100 Oxygen Delivery Method Oxygen Flow Rate 09/21/22 05:35 09/21/22 06:00 Temperature 97.9 F Pulse Rate Blood Pressure Pulse Oximetry 98 Oxygen Delivery Method Room Air Oxygen Flow Rate 0 Oxygen Delivery Method Room Air Oxygen Flow Rate 0 Narrative Exam Narrative: NAD. Awake and following commands. Assessment & Plan Assessment & Plan narrative: NEURO: # Acute encepahlopathy -- Resolved -- Encourage early mobility -- Sepsis rx as below -- Daily CAM ICU RESP: -- On room air -- Encourage IS and OOB as tolerated CVS: # Hypotension -- Resolved -- Off stress dose steroids -- MAP goal > 65 ID: # Severe sepsis -- Cx negative to date -- On vanc/zosyn -- Follow up cx data; If no GPC seen on cx then recommend stopping vancomycin and cont zosyn X 7 days. : # Metabolic acidosis -- Possible related to RTA vs diarrhea -- Improving slowly with sodium bicarbonate gtt -- Stop sodium bicarbonate gtt -- Pending urine Cl to calculate UAG -- Daily BMP # Hypkalemia -- Repleted w/ 60 mEQ -- Need repeat K in 4 hours # Hypomagnesium -- Repleted w/ 4 grams # FE vs CKD -- Resolved -- Avoid nephrotoxin agents -- Monitor UOP -- Daily BMP GI: # Concern for chronic tylenol toxicity -- Repeat tylenol level <10 and based on duration it is considered nontoxic level -- Off NAC protocol -- Follow by poison control -- Trend LFTs HEME: # Anemia -- NO signs of overt bleed -- Daily CBC -- Goal Hb > 7 ENDO: -- Goal BS < 180 D/w bedside RN Time Spent With Patient Time with patient: less than 30 minutes Critical Care time: I spent a total of minutes of critical care time on this patient's care today; this time is exclusive of procedural time.
--- NOTE | 2022-09-21 10:32 | DIET.CONS ---
Dietary Consultation Note Admission Date: 09/20/2022 03:41 Assessment: 71 y/o F with PMH of tylenol overdose, CKD3, CVA, c.diff, COPD, osteomyelitis, HTN, HLD, fibromyalgia, depression, daily vape use, and malnutrition. Found to have metabolic acidosis and elevated tylenol levels. RD consulted for assessment of malnutrition. Nutrition focused physical exam indicates moderate muscle/fat losses in shoulders, clavicle and mild losses of advent areas. Diet recall over the last week indicates very little PO, though pt had a difficult time reporting details about food intake. Per hospitalist notes, partner Patrick reported very little eating over the last week. Pt reports skipping breakfast and barely eating lunch or dinner for the last week, which usual portions at meals seem small as well (ie half sandwich with half can soup). BMI is moderately low for age <23 EMR wt hx actually indicates weight gain over the last week or month, but also indicates 18.6% loss from Jun 2022 to Aug 2022 (severe). UBW in 2021 40-49kg, chronically low BMI. Repeat weight today with RN of 51.5kg. Pt reports wt of 41.3kg as her most recent weight prior to admission. Endorses improved appetite today. Wanting more ideas for carbs/protein foods that she enjoys. Ht: 154.94 cm Wt: 50.802 kg BMI: 21.1 Last BM: () MNA: Jaswant Score: 15 Diet: 09/20/22 Breakfast General (Regular) Diet Diet Modifications: Nutrition Percent Meal Consumed 25% 09/21/22 09:52 Labs: RBC 2.35 X10^6/uL (4.0-5.2) L 09/21/22 06:00 Hgb 8.0 g/dL (12.0-16.0) L 09/21/22 06:00 Hct 24.1 % (36-46) L 09/21/22 06:00 Creatinine 0.62 mg/dL (0.52-1.04) 09/21/22 06:00 Lactate 1.7 mmol/L (0.7-2.1) 09/20/22 21:00 Nutrition Diagnosis: Acute on chronic moderate protein calorie malnutrition r/t inadequate PO aeb physical signs of wasting of clavicle, shoulders, and temples, low for age BMI of 21.1, and predicted <75% EER for 7 or more days. -The patient is at much higher risk for medical and surgical complications because of his malnutrition.? This increases the difficulty and complexity of medical and surgical interventions and increases the chances of poor outcomes such as morbidity and mortality. Interventions: 1. ONS BID to support kcal and pro needs 2. Discussion on nutrition dense foods she enjoys 3. Rec ONS daily at home, especially if low appetite EER: 1450-1550kcal (28-30kcal/kg per BMI) 77-92g PRO (1.5-1.8g/kg per malnutrition) Monitoring/Evaluations: ONS tolerance, PO Electronically Signed by: Griselda Ambrosio 09/21/22 10:32 Clinical Dietitian [address] [id number]
[2022-09-21] MEDS: POTASSIUM CHLORIDE 20 MEQ TAB 40 MEQ PO ×2 (11:59→16:23)
--- NOTE | 2022-09-21 15:29 | OT.IP.EVAL ---
Current Diagnoses Acidosis, unspecified (09/20/22) Past Medical History (Last Reviewed 09/20/22 @ 04:29 by Melisa Koo DO) Acute [place] Anxiety Arthritis C. difficile colitis Chronic pain Closed left clavicular fracture Colitis Compression fracture of L1 vertebra (~07/2019) COPD (chronic obstructive pulmonary disease) CVA (cerebral vascular accident) Depression Diarrhea DJD (degenerative joint disease) Fibromyalgia Fracture, tibia GI bleeding History of osteomyelitis History of recurrent UTIs HLD (hyperlipidemia) Hypertension Hypertension Insomnia Iron (Fe) deficiency anemia Left foot drop Left rib fracture Lumbar compression fracture (02/26/19) Migraines Multiple fractures Nephrolithiasis Neuropathy Numbness and tingling Osteoporosis Osteoporosis Peptic ulcer disease Pre-diabetes Radius fracture (08/30/17) Renal disease Septic shock Stage 3 chronic kidney disease Surgical History (Last Reviewed 09/20/22 @ 04:29 by Melisa Koo DO) H/O: hysterectomy History of surgery Hx of appendectomy Hx of cholecystectomy Hx of elbow surgery Hx of kyphoplasty (~2013) Hx of kyphoplasty (04/28/19) Hx of kyphoplasty (07/28/19) Hx of tonsillectomy Status post epidural steroid injection (03/25/19) Occupational Therapy Inpatient Evaluation/Re-Eval M1 PT/OT-IP Prior Functional Status Start: 09/21/22 15:30 Freq: NEEDED Status: Active Protocol: Document 09/21/22 14:56 [facility] (Rec: 09/21/22 16:48 [facility] [id number]) Medical Review Prior Functional Status Communication Independent but very forgetful . Mobility and Gait Pt mainly just transfers only stand pivot since her right humeral neck fracture 06/2022. Pt just transfers to [facility] and from the bed and wc to the shower. Activities of Daily Living and IADL's Pt able to do grooming and oral care needs with set-up assist and needing assist for all other ADl and IADL needs. Social History Household Members other,children Living Arrangements House Number of Stairs To Enter/Railing? 3 steps with no rails. Home Environment Walk in Shower Home Equipment Front Wheel Walker,Four Wheel Walker,Bedside Commode,Shower Seat with Backrest,Hand Held Shower,Grab Bars In Shower M2 OT-IP Current Condition Start: 09/21/22 15:30 Freq: Status: Active Protocol: Document 09/21/22 14:56 [facility] (Rec: 09/21/22 16:48 [facility] [id number]) Occupational Therapy Current Condition Current Condition Evaluation Date 09/21/22 Treatment Diagnosis Acute encephalopathy , Tylenol overdose Diagnosis Onset Date 09/20/22 M3 OT- IP Subjective and Pain Start: 09/21/22 15:30 Freq: Status: Active Protocol: Document 09/21/22 14:56 [facility] (Rec: 09/21/22 16:48 [facility] [id number]) OT- Subjective Occupational Therapy Visit Type Type Initial Evaluation Visit Start Time 14:56 Visit Stop Time 15:29 Total Visit Minutes 33 Occupational Therapy Visit Comments Patient Comments Pt initially not wanting to do OT eval and states already has OT home health at home. Patient/Caregiver Goals To go home. OT Pain Assessment Pain When Pain Assessed At Rest Pain Present Pain Present Pain Reported M4 OT- IP ADL's Start: 09/21/22 15:30 Freq: Status: Active Protocol: Document 09/21/22 14:56 [facility] (Rec: 09/21/22 16:48 [facility] [id number]) OT [id number] Comments OT Self-Feeding Comments Pt needing assist for set-up of her meal. OT ADL-Grooming General Evaluation Grooming Ability Standby Assistance Areas Needing Assistance Retrieving/Set-up of Grooming Items Comments OT Grooming Comments Assist with set-up for items and then pt able to do her grooming needs. OT ADL-Oral Care General Eval Oral Care Ability Standby Assistance Areas of Assistance Retrieving/Set-Up of Items Comments Oral Care Comments Able to do after set-up. OT ADL-Dressing General Eval Lower Body Dressing Ability Maximum Assistance Areas Needing Assistance Socks Comments OT Dressing Comments Assist to bunny the socks. OT ADL-Toileting General Evaluation Toileting Ability Total Assistance Areas Needing Assistance Empty Catheter or Colostomy Comments OT Toileting Comments Pt has catheter in place. OT ADL-Bathing Comments OT Bathing Comments Pt states that her caregiver transfers her to the wc and to the shower chair. M5 OT- IP IADL's Start: 09/21/22 15:30 Freq: Status: Active Protocol: Document 09/21/22 14:56 [facility] (Rec: 09/21/22 16:48 [facility] [id number]) OT-Instrumental Activities of Daily Living Deficits IADL Deficits Identified Deficits Home Safety Awareness Home Safety Comments Pt has decreased STM and is very forgetful. Medication Management Medication Management Caregiver Administers Money Management Money Management Caregiver Provides Assistance Meal Preparation Meal Preparation Caregiver Provides Assist Finishing Inspector Finishing Inspector Caregiver Provides Assist Driving Driving Concerns Identified Regarding Safety M6 OT- IP Functional Cognition Start: 09/21/22 15:30 Freq: Status: Active Protocol: Document 09/21/22 14:56 [facility] (Rec: 09/21/22 16:48 [facility] [id number]) Cognitive Factors Limiting Selfcare Function Cognitive Ability Level of Alertness Alert Patient Orientation Name,Place Ability to Follow Commands Able to Follow One Step Commands Memory Description Short Term Impaired Cognitive Comments Cognitive Assessment Comments Pt is very forgetful and decreased STM. Pt able to follow commands for ADL and mobility needs. OT- Vision and Hearing OT- Vision Assessment Visual Acuity Glasses All The Time Vision Assessment Comments Pt does not have her glasses here. M7 OT- IP Mobility and Balance Start: 09/21/22 15:30 Freq: Status: Active Protocol: Document 09/21/22 14:56 [facility] (Rec: 09/21/22 16:48 [facility] [id number]) OT- Bed Mobility Assessment Supine to Sit Supine to Sit Assist Standby Assistance,Head of Bed Elevated Sit to Supine Sit to Supine Assist Standby Assistance,Head of Bed Elevated Scooting Scooting to Edge of Bed Standby Assistance OT-Transfer Assessment Sit to and From Stand Sit to and from Stand Contact Guard Assistance Transfers Transfer Ability Contact Guard Assistance Technique Transfer Destination Bed Transfer Technique Stand Step Pivot Devices Transfer Assistive Devices None,Gait Belt OT- Balance Assessment Sitting Balance and Reactions Static Sitting Balance Ability Good Dynamic Sitting Balance Ability Fair Standing Balance and Reactions Static Standing Balance Ability Fair M8 OT- IP Objective Assessments Start: 09/21/22 15:30 Freq: Status: Active Protocol: Document 09/21/22 14:56 [facility] (Rec: 09/21/22 16:48 [facility] [id number]) OT Gross Range of Motion Upper Extremity Range of Motion Assessment Bilaterally Impaired ROM Impairments LUE shoulder flexion 0-60 RUE unable to raise her UE up. OT Strength Upper Extremity Strength Assessment Bilaterally Impaired Comments Strength Comments LUE elbow to distal 4/5 M9 OT- IP Assessment and Plan Start: 09/21/22 15:30 Freq: Status: Active Protocol: Document 09/21/22 14:56 [facility] (Rec: 09/21/22 16:48 [facility] [id number]) OT Summary Assessment and Plan Potential Rehabilitation Potential Fair Analytic Complexity at Evaluation Moderate Summary OT Impairments Pain,Functional Cognition, Functional Mobility Assessment Summary Pt is MOD complexity and main barriers are decreased STM, pt has limited use of her right UE due to recent humeral neck fracture 07/11/22. Pt has caregiver who comes in 5 hours from Saturday through Saturday to assist with her ADl's, IADL's and transfers. When the caregiver in not there her significant other and son is able to assist her. Pt states has home health at home. Pt to go home when medically stable with 24/7 assist and resume home health. Pt does not want any further OT needs while in the hospital. Discharge pt from OT services. Discharge Recommendations OT Discharge Recommendations Home with 24/7 Assist Available,Home Health Transportation Needs at Discharge Private Vehicle
[2022-09-21] MEDS: levoFLOXacin 250 MG TABLET 750 MG PO (15:43)
--- NOTE | 2022-09-21 16:30 | PT.IIE ---
Current Diagnoses Acidosis, unspecified (09/20/22) Surgical History (Last Reviewed 09/20/22 @ 04:29 by Melisa Koo DO) H/O: hysterectomy History of surgery Hx of appendectomy Hx of cholecystectomy Hx of elbow surgery Hx of kyphoplasty (~2013) Hx of kyphoplasty (04/28/19) Hx of kyphoplasty (07/28/19) Hx of tonsillectomy Status post epidural steroid injection (03/25/19) Medical History (Last Reviewed 09/20/22 @ 04:29 by Melisa Koo DO) Acute [place] Anxiety Arthritis C. difficile colitis Chronic pain Closed left clavicular fracture Colitis Compression fracture of L1 vertebra (~07/2019) COPD (chronic obstructive pulmonary disease) CVA (cerebral vascular accident) Depression Diarrhea DJD (degenerative joint disease) Fibromyalgia Fracture, tibia GI bleeding History of osteomyelitis History of recurrent UTIs HLD (hyperlipidemia) Hypertension Hypertension Insomnia Iron (Fe) deficiency anemia Left foot drop Left rib fracture Lumbar compression fracture (02/26/19) Migraines Multiple fractures Nephrolithiasis Neuropathy Numbness and tingling Osteoporosis Osteoporosis Peptic ulcer disease Pre-diabetes Radius fracture (08/30/17) Renal disease Septic shock Stage 3 chronic kidney disease Physical Therapy Inpatient Evaluation/Re-Eval M1 PT/OT-IP Prior Functional Status Start: 09/21/22 17:30 Freq: NEEDED Status: Active Protocol: Document 09/21/22 16:30 [facility] (Rec: 09/21/22 17:48 [facility] [id number]) Medical Review Prior Functional Status Medical History Reviewed Yes Communication able to make needs known Mobility and Gait pt stated that she broke both her shoulders 2 months ago with the R side more recently. stated that since she broke her shoulders, she has not been walking and just spend most of the time in bed. stated that her family is concerned about her falling and has not been ambulating with her due to this. pt has a bedside commode and only gets up when she has to use the commode. pt stated that she only gets a bed bath/ sponge bath. Activities of Daily Living and IADL's per OT note: Pt able to do grooming and oral care needs with set-up assist and needing assist for all other ADl and IADL needs. Social History Household Members significant other,children Living Arrangements House Number of Stairs To Enter/Railing? 3 steps with no rails; pt stated that her caregiver lifts her up from her w/c in/ out the house Home Environment Standard Height Toilet,Tub/ Shower Home Equipment Front Wheel Walker,Four Wheel Walker,Bedside Commode,Tub Transfer Bench,Hand Held Shower,Grab Bars In Shower Additional Social History Comment pt has her significant other Patrick and her son who assists her pt has a caregiver that comes in mondays thru fridays ~ 5 hours daily M2 PT-IP Current Condition Start: 09/21/22 17:30 Freq: NEEDED Status: Active Protocol: Document 09/21/22 16:30 [facility] (Rec: 09/21/22 17:48 [facility] [id number]) Physical Therapy Current Condition Current Condition Evaluation Date 09/21/22 Treatment Diagnosis metabolic acidosis; difficulty in walking Onset Date 09/20/22 M3 PT-IP Subjective Start: 09/21/22 17:30 Freq: NEEDED Status: Active Protocol: Document 09/21/22 16:30 [facility] (Rec: 09/21/22 17:48 [facility] [id number]) Subjective Physical Therapy Visit Type Type Initial Evaluation Visit Start Time 16:30 Visit Stop Time 17:17 Total Visit Minutes 47 Number of DRILLER BRAKE LINING Visits 0 Physical Therapy Visit Comments Patient Comments agreeable to do PT Therapy Pain Assessment Pain When Pain Assessed At Rest Location Bilateral arms Scale Used pain scale not stated Pain Management Techniques Distraction,Modification of Treatment,Re-positioning M4 PT-IP Mobility and Gait Start: 09/21/22 17:30 Freq: NEEDED Status: Active Protocol: Document 09/21/22 16:30 [facility] (Rec: 09/21/22 17:48 [facility] [id number]) PT-Bed Mobility Assessment Supine to Sit Supine to Sit Standby Assistance Sit to Supine Sit to Supine Standby Assistance PT-Transfer Assessment Sit to and From Stand Sit to and from Stand Contact Guard Assistance,1 Person Assistance,Use of Upper Extremities Equipment Transfer Assistive Device None,Gait Belt Orthotic/Prosthetic Devices or Brace: No Transfers Transfer Destination Bed,Chair Transfer Technique Stand Step Pivot Transfer Ability Level of Assist Contact Guard Assistance,1 Person Assistance,Use of Upper Extremities Comments Mobility Comments completed supine to sit with HOB elevated SBA. able to sit on EOB SBA. completed sit to stand CGA and step transfer to chair CGA. pt stated that she has not ambulated since she broke her arms ~ 2 months ago and that she usually gets dizzy when ambulating that is why she had falls at home. completed sit to stand from the chair CGA attempted to ambulate with [employer] but pt is impulsive and c/o dizziness but when instructed to sit down, pt stated that she wants to walk. instructed pt to just march and place and completed ~ 30 march CGA and cues. HR increases to ~ 124- 130 ith activity. pt step transfer back to EOB CGA completed sit to supine SBA. positioned pt in bed. call light and table placed within reach. PT-Balance Assessment Sitting Balance and Reactions Static Sitting Balance Ability Good Dynamic Sitting Balance Ability Fair Standing Balance and Reactions Static Standing Balance Ability Fair Dynamic Standing Balance Ability Fair Device Used without AD M5 PT-IP Objective Assessments Start: 09/21/22 17:30 Freq: NEEDED Status: Active Protocol: Document 09/21/22 16:30 [facility] (Rec: 09/21/22 17:48 [facility] [id number]) Orientation Orientation/Cognition Level of Alertness Confusional State Orientation Name,Place,Situation Safety Awareness Decreased Safety Awareness Memory Description Short Term Impaired Comments pt able to answer questions but has confusion and answers are not consistent Gross Range of Motion Lower Extremity ROM Assessment Within Functional Limits Strength Lower Extremity Strength Assessment Within Functional Limits Muscle Tone Muscle Tone WNL Yes M6 PT-IP Treatment Start: 09/21/22 17:30 Freq: NEEDED Status: Active Protocol: Document 09/21/22 16:30 [facility] (Rec: 09/21/22 17:48 [facility] [id number]) Physical Therapy Treatment Education Education Provided Safety M7 PT-IP Assessment and Plan Start: 09/21/22 17:30 Freq: NEEDED Status: Active Protocol: Document 09/21/22 16:30 [facility] (Rec: 09/21/22 17:48 AB [id number]) PT Summary Assessment and Plan Potential Rehabilitation Potential Fair Status of Condition at Evaluation Evolving Summary Impairments Pain,ROM,Strength,Balance, Coordination,Sensation,Tone, Cognition,Bed Mobility, Transfers,Gait,Activity Tolerance Assessment Summary pt requiring CGA with transfers without AD. pt has 24/7 assist at home and will benefit from HHPT. will continue to assess progress. Goals Bed Mobility Goal Independent Transfer Goal Independent Gait Goal Contact Guard Assistance,Cane Gait Distance 50 Other Goals up/down 3 steps SPC CGA Days to Meet Goals 10 Frequency of Treatment Frequency Of Treatment Once a Day Treatment Plan Physical Therapy Treatment Plan Bed Mobility Training,Transfer Training,Gait Training, Therapeutic Exercise,Balance Retraining,Discharge Planning, Hot or Cold Pack,Neuromuscular Re-ed,Coordination Retraining ,Manual Therapy Precautions Other Precautions falls Recommendations To Nursing Amount of Assist Needed 1 Person Assist Discharge Recommendations PT Discharge Recommendations Home with 24/ Assist Available,Home Health Transportation Needs at Discharge Private Vehicle,Wheelchair/ Cabulance
--- NOTE | 2022-09-21 23:39 | PC.NURSE ---
[facility]: Encouraged patient to reposition. Patient refused any assistance and did not position with cueing. Educated patient on the importance of changing position to prevent pressure injuries and to prevent worsening of open area on sacrum. Patient again refused reposition.
[2022-09-22] MEDS: HYDROMORPHONE 1 MG INJ IV ×2 (01:09→04:11)
[2022-09-22 01:11] VITALS: BP 158/91; PULSE 94; RESP 18; TEMP 36.4; O2SAT 100
[2022-09-22 01:40] LABS: Blood Urea Nitrogen 13 mg/dL (7-17); Calcium 8.1 mg/dL (8.4-10.2); Carbon Dioxide 36 mmol/L (22-32); Chloride 98 mmol/L (98-107); Estimated Glomerular Filt Rate > 60 mL/min (>60); Glucose 95 mg/dL (80-110); HEMOLYSIS < 15 (0-50); Potassium 3.9 mmol/L (3.4-5.1); Sodium 139 mmol/L (137-145)
[2022-09-22 04:18] VITALS: BP 155/93; PULSE 89; RESP 18; TEMP 36.5; O2SAT 97
[2022-09-22 04:50] LABS: Alanine Aminotransferase 30 IU/L (<35); Albumin 3.2 g/dL (3.5-5.0); Albumin Globulin Ratio 0.9 (1.0-2.8); Alkaline Phosphatase 271 U/L (38-126); Aspartate Aminotransferase 33 IU/L (14-36); Bilirubin Total 0.2 mg/dL (0.2-1.3); Blood Urea Nitrogen 12 mg/dL (7-17); Calcium 8.1 mg/dL (8.4-10.2); Carbon Dioxide 36 mmol/L (22-32); Chloride 96 mmol/L (98-107); Estimated Glomerular Filt Rate > 60 mL/min (>60); Globulin 3.4 g/dL (1.7-4.1); Glucose 88 mg/dL (80-110); HEMOLYSIS 16 (0-50); Potassium 3.8 mmol/L (3.4-5.1); Sodium 138 mmol/L (137-145); Total Protein 6.6 g/dL (6.3-8.2)
[2022-09-22 05:10] VITALS: O2SAT 98
[2022-09-22 05:17] LABS: Add Manual Diff / Slide Review NO; Basophils Absolute Auto 100 /uL (0-100); Basophils Percent Auto 1.5 % (0-2); Eosinophils Absolute Auto 600 /uL (0-450); Hematocrit 26.1 % (36-46); Hemoglobin 8.6 g/dL (12.0-16.0); Lymphocytes Absolute Auto 4000 /uL (1100-4500); Lymphocytes Percent Auto 43.1 % (25-40); Mean Corpuscular HGB Conc 33.1 % (30-36); Mean Corpuscular Hemoglobin 33.7 PG (26-34); Mean Corpuscular Volume 101.8 fL (80-100); Monocytes Absolute Auto 600 /uL (0-900); Monocytes Percent Auto 6.9 % (3-14); Neutrophils Absolute Auto 3800 /uL (1500-7000); Neutrophils Percent Auto 41.5 % (50-75); Platelet Count 417 X10^3/uL (150-400); Red Blood Cell Count 2.56 X10^6/uL (4.0-5.2); Red Cell Distribution Width 18.1 % (11.6-14.8); White Blood Cell Count 9.2 X10^3/uL (4.5-11.0)
[2022-09-22 09:00] VITALS: O2SAT 98
[2022-09-22] MEDS: PANTOPRAZOLE DR 40 MG TABLET PO (09:10)
[2022-09-22] MEDS: APIXABAN 5 MG TABLET PO (09:10)
[2022-09-22] MEDS: MULTIVITAMIN 1 TABLET 1 TAB PO (09:10)
[2022-09-22] MEDS: OXYCODONE IR 10 MG TABLET PO (09:10)
[2022-09-22] MEDS: methocarbamoL 500 MG TABLET PO (09:10)
[2022-09-22] MEDS: polyethylene glycoL 3350 17 GM POWD.PACK PO (09:11)
[2022-09-22] MEDS: levoFLOXacin 250 MG TABLET 750 MG PO (09:11)
[2022-09-22] MEDS: METOPROLOL IR 25 MG TABLET 12.5 MG PO (09:11)
[2022-09-22 09:45] VITALS: BP 159/91; PULSE 122; RESP 21; TEMP 37.1; O2SAT 93
--- NOTE | 2022-09-22 10:42 | P.DS_ITS ---
History of Present Illness History of Present Illness Date Patient Seen: 09/22/22 Time Patient Seen: 10:43 Chief complaint: lethagic w/ UTI history Narrative: Per Dr. Vital, Emani Leiva is a 71yo F with PMH of tylenol overdose, stage 3 CKD, CVA, C. diff, COPD, lumbar osteomyelitis, HTN, HLD, fibromyalgia, depression, daily vape use and malnutrition who presents with lethargy and found to have metabolic acidosis and elevated tylenol levels. History is obtained mostly from boyfriend Patrick. He states over the past week she has gotten progressively weaker and more lethargic, not eating much. She was just released 2 weeks from [facility] where she was sent from [place] for severe metabolic acidosis, renal failure and tylenol overdose. Was intubated at that time and improved and able to discharge. SNF was recommended but patient refused and she returned home. She has been mostly bedbound for the past several months per the boyfriend. He thinks she is having some cognitive decline as well and thinks the oxycodone is to blame for s ome it. He would like her pain medications limited. Son also at bedside and said his mother doesn't take good care of herself. Patient says she is having pain in her right arm from breaking it. She knows the year, month and location. She is sleepy and drifts off and back again. In the ED, BP was as low as 81/51 and received 3L fluid boluses. BP now improved to 121/58. ABG showed pH of 7.17 with bicarb 14. Gap of 12. Cr 1.27 and now improved to 0.87. Tylenol level 35 and poison control called who recommended starting NAC treatment. Procal of 90 and decreased to 20. Started on broad spectrum abx. Resp PCR negative. Drug screen positive for opiates and oxycodone alone. Discharge Providers Provider Date of admission: 09/20/22 03:41 Discharge Date: 09/22/22 Primary care physician: Jairo Powers DO Consults: 09/20/22 07:24 Consult to Tele-production support manager Routine Comment: Consulting Provider: [employer] Reason for consultation: [employer] services 09/20/22 15:46 Consult to Dietitian, Adult Routine Comment: Reason For Exam: assess for malnutrition 09/21/22 14:45 Consult to Occupational Therapy Evaluate & Treat Comment: Physician Instructions: Evaluate and treat Consult to Physical Therapy Evaluate & Treat Comment: Physician Instructions: Evaluate and Treat Discharge provider: Reginaldo Bains DO Summary Hospital Course Discharge Diagnosis: # non-anion gap metabolic acidosis # tylenol overdose # shock with concern for sepsis, hypotension now resolved # hypokalemia, improved. # diastolic CHF # myocardial demand ischemia # HLD # right humeral neck fracture, chronic # Acute on chronic moderate protein calorie malnutrition #chronic macrocytic anemia Hospital Course: Emani Leiva is a 71yo F with PMH of tylenol overdose, stage 3 CKD, CVA, C. diff, COPD, lumbar osteomyelitis, HTN, HLD, fibromyalgia, depression, daily vape use and malnutrition who presents with lethargy and found to have metabolic acidosis and elevated tylenol levels. Poison control was contacted, and recommended for completion of NAC infusion. She was also started on bicarb infusion for her acidosis with ultimate improvement. The etiology of her acidosis was not entirely clear. Lactate was normal, anion gap was borderline at 12 on admission. May be related to tylenol or an RTA or other etiology. Urine electrolytes were sent to help with evaluation for RTA, however urine chloride is still pending at this time, but bicarb over corrected and RTA is unlikely. She had mildly elevated troponin levels on admission that downtrended likely elevated in setting of demand. She was started empirically on antibiotics for possible sepsis, no infectious etiologies were found but 7 day course of antibiotics with levaquin were recommended by tele-production support manager service. Patient did not wish to return to SNF, home health consultation was placed. Her acute on chronic protein malnutrition contributed to her underlying illness and increased complexity and contributed to increased length of stay. With improvement in her acidosis, her symptoms improved dramatically and she was discharged home with home health. Repeat BMP to reassess acidosis is recommended as an outpatient in the next week with her PCP. Time Spent with Patient Time spent: Greater than 30 minutes Exam Vital Signs (past 8 hours): - 09/22/22 04:18 09/22/22 05:10 09/22/22 07:00 Temperature 97.7 F Pulse Rate 89 Respiratory Rate 18 Blood Pressure 155/93 H Pulse Oximetry 97 98 Oxygen Delivery Method Room Air Room Air Oxygen Flow Rate 0 09/22/22 09:45 09/22/22 09:00 Temperature 98.8 F Pulse Rate 122 H Respiratory Rate 21 Blood Pressure 159/91 H Pulse Oximetry 93 98 Oxygen Delivery Method Room Air Oxygen Flow Rate 0 Oxygen Delivery Method Room Air Oxygen Flow Rate 0 Narrative Exam Narrative: GEN: Alert and awake, no acute distress HEENT: moist mucous membranes, PERRL NECK: trachea midline, no JVD CV: regular rate and rhythm, no murmurs PULM: clear bilaterally ABD: soft, nontender, nondistended, no organomegaly EXT: warm and well perfused with no edema NEURO: no focal deficits Objective Labs 09/22/22 04:24 09/22/22 04:24 Labs: Laboratory Results - last 24 hr 09/22/22 09/22/22 09/22/22 01:22 04:24 04:24 WBC 9.2 D RBC 2.56 L Hgb 8.6 L Hct 26.1 L MCV 101.8 H MCH 33.7 MCHC 33.1 RDW 18.1 H Plt Count 417 H Neut % (Auto) 41.5 L D Lymph % (Auto) 43.1 H D [place] % (Auto) 6.9 Eos % (Auto) 7.0 H Baso % (Auto) 1.5 Neut # (Auto) 3800 Lymph # (Auto) 4000 [place] # (Auto) 600 Eos # (Auto) 600 H Baso # (Auto) 100 Sodium 139 138 Potassium 3.9 D 3.8 Chloride 98 96 L Carbon Dioxide 36 H 36 H BUN 13 12 Creatinine 0.65 0.63 Estimated GFR > 60 > 60 BUN/Creatinine Ratio 20.0 19.0 Glucose 95 88 Calcium 8.1 L 8.1 L Magnesium 2.0 Total Bilirubin 0.2 AST 33 ALT 30 Alkaline Phosphatase 271 H Total Protein 6.6 Albumin 3.2 L Globulin 3.4 Albumin/Globulin Ratio 0.9 L PFSH Medical History Acute [place] Anxiety Arthritis C. difficile colitis Chronic pain Closed left clavicular fracture Colitis Compression fracture of L1 vertebra (~07/2019) COPD (chronic obstructive pulmonary disease) CVA (cerebral vascular accident) Depression Diarrhea DJD (degenerative joint disease) Fibromyalgia Fracture, tibia GI bleeding History of osteomyelitis History of recurrent UTIs HLD (hyperlipidemia) Hypertension Hypertension Insomnia Iron (Fe) deficiency anemia Left foot drop Left rib fracture Lumbar compression fracture (02/26/19) Migraines Multiple fractures Nephrolithiasis Neuropathy Numbness and tingling Osteoporosis Osteoporosis Peptic ulcer disease Pre-diabetes Radius fracture (08/30/17) Renal disease Septic shock Stage 3 chronic kidney disease Surgical History H/O: hysterectomy History of surgery Hx of appendectomy Hx of cholecystectomy Hx of elbow surgery Hx of kyphoplasty (~2013) Hx of kyphoplasty (04/28/19) Hx of kyphoplasty (07/28/19) Hx of tonsillectomy Status post epidural steroid injection (03/25/19) Family History Mother No known health problems COPD (chronic obstructive pulmonary disease) Father No known health problems Social History household members: significant other and children Smoking Status: Former smoker alcohol intake: current Discharge Plan Discharge Plan Patient Disposition: Home Health Service Provider Discharge Comment: You were admitted to the hospital with an acidosis, the cause may be tylenol but it is not entirely clear. You improved with time, no other changes are recommended at this time to your home medications. Discharge orders & Medications Prescriptions: New levofloxacin 750 mg tablet 750 mg PO DAILY 4 Days Qty: 4 0RF Continued aspirin [Adult Aspirin Regimen] 81 mg tablet,delayed release (DR/EC) 81 mg PO DAILY Qty: 90 0RF atorvastatin 40 mg tablet 40 mg PO DAILY Qty: 90 0RF methocarbamol 500 mg tablet 500 mg PO BID Qty: 60 0RF Rx Instructions: Pt to start taking after completing her TID prescription. oxycodone 10 mg tablet 10 mg PO Q6H PRN (Reason: pain) Qty: 120 0RF pantoprazole [Protonix] 40 mg tablet,delayed release (DR/EC) 40 mg PO DAILY Qty: 90 3RF bisacodyl [Dulcolax (bisacodyl)] 10 mg suppository 10 mg [place] DAILY PRN (Reason: Constipation) polyethylene glycol 3350 [Miralax] 17 gram/dose powder 17 g PO DAILY Eliquis 5 mg tablet 5 mg PO BID Qty: 180 0RF metoprolol tartrate 25 mg Tablet 12.5 mg PO BID gabapentin 300 mg Tablet 300 mg PO DAILY Follow up/Referrals: Jairo Powers, [Primary Care Provider] - Diet/Activity/Treatments Diet: Diet as Tolerated Activity: As tolerated Visit Report/Discharge Packet Instructions: DI for Prescription Opioid Use Stand Alone Forms: Patient Portal/API, Stroke Signs & Symptoms Discharge Data Primary Care Provider: Jairo Powers
[2022-09-22 11:29] LABS: Chloride, Urine 51 mmol/L (Not Estab.)
--- NOTE | 2022-09-22 11:41 | CM.DPC ---
DCP Cont: Patient has discharge orders today. Met with patient in her room, introduced self and role. Confirmed that she resides in [place] with son, Francis, who was also at bedside. Brought in an [facility] brochure, as patient interested in [facility]. Gave copy of IMM to patient as well. Called [facility] and spoke to Miracle. Confirmed that patient is currently on their services, was on hold while in the hospital. She is getting RN only at this time, but went ahead and added O.T, and P.T. Faxed over resumption orders, DC Summary, and P.T, and O.T. notes. [facility] is aware that patient is being discharged home today. P: Patient is discharging home today, with resumption of [facility]. Orders were sent. Maryann Payton RN/Physical Medicine Teacher
[2022-09-28 14:47] LABS: Beta-Hydroxybutyrate 0.4 mg/dL (.)
== END 2022-09-22 12:07 | disposition home health service (06) | DRG 871 ==
LOC: ED 23:39 → AC 09-20 06:41 → ICU 09-20 07:05 → AC 09-20 15:56 → ICU 09-20 15:56
PROVIDERS: Internal Medicine Critical Care Medicine; Internal Medicine Pulmonary Disease; Student in an Organized Health Care Education/Training Program; Admitting Provider Internal Medicine; Emergency Provider Emergency Medicine; PCP Family Medicine; Visit Provider Internal Medicine
DX: A41.9 Sepsis, unspecified organism (principal); G93.41 Metabolic encephalopathy; R65.21 Severe sepsis with septic shock; E87.20 Acidosis, unspecified; I24.8 Other forms of acute ischemic heart disease; I50.30 Unspecified diastolic (congestive) heart failure; E44.0 Moderate protein-calorie malnutrition; T39.1X1A Poisoning by 4-Aminophenol derivatives, accidental (unintentional), initial encounter; R62.7 Adult failure to thrive; M62.838 Other muscle spasm; E78.5 Hyperlipidemia, unspecified; I11.0 Hypertensive heart disease with heart failure; Z68.21 Body mass index [BMI] 21.0-21.9, adult; Z20.822 Contact with and (suspected) exposure to COVID-19; Z87.891 Personal history of nicotine dependence
CPT/HCPCS: 36415; 36569; 36592; 36600; 62270; 70450; 71045; 80048; 80053; 80076; 80305; 80320; 80329; 81001; 82436; 82550; 82805; 83605; 83735; 84133; 84145; 84300; 84484; 85025; 85610; 85730; 87040; 87633; 87797; 93005; 93306; 96365; 96375; 96376; 97162; 97166; 99285; 99291; G0480; J0132; J0692; J0696; J1170; J1644; J1720; J2543; J3475

== ENCOUNTER → 2022-10-03 12:41 | Outpatient (CLI) | payer MEDICARE, MEDICAID, SELFPAY ==
[2022-07-22 07:16] VITALS: RESP 28
[2022-07-22 14:33] VITALS: PULSE 127; RESP 38; O2SAT 100
[2022-09-20 08:20] VITALS: BMI 21.1
[2022-10-03 13:40] LABS: Bilirubin Urine UA NEGATIVE (NEGATIVE); Color Urine UA YELLOW; Glucose Urine UA NEGATIVE (Negative); Ketones Urine UA NEGATIVE (NEGATIVE); Leukocyte Esterase Urine UA 2+ (NEGATIVE); Nitrite Urine UA NEGATIVE (Negative); Occult Blood Urine UA NEGATIVE (Negative); Protein Urine UA NEGATIVE (Negative); Urobilinogen Urine UA 0.2 E.U./dL (0.2)
[2022-10-03 13:41] LABS: Add Manual Diff / Slide Review NO; Basophils Absolute Auto 300 /uL (0-100); Basophils Percent Auto 2.8 % (0-2); Eosinophils Absolute Auto 400 /uL (0-450); Eosinophils Percent Auto 3.3 % (2-4); Hematocrit 33.4 % (36-46); Hemoglobin 10.5 g/dL (12.0-16.0); Lymphocytes Absolute Auto 2900 /uL (1100-4500); Lymphocytes Percent Auto 26.6 % (25-40); Mean Corpuscular HGB Conc 31.6 % (30-36); Mean Corpuscular Hemoglobin 32.2 PG (26-34); Mean Corpuscular Volume 101.9 fL (80-100); Monocytes Absolute Auto 500 /uL (0-900); Monocytes Percent Auto 4.5 % (3-14); Neutrophils Absolute Auto 6900 /uL (1500-7000); Neutrophils Percent Auto 62.8 % (50-75); Platelet Count 461 X10^3/uL (150-400); Red Blood Cell Count 3.28 X10^6/uL (4.0-5.2); Red Cell Distribution Width 16.6 % (11.6-14.8)
[2022-10-03 13:41] LABS: Appearance Urine UA Slightly Cloudy
[2022-10-03 13:58] LABS: Amorphous Sediment Urine 1+; Bacteria Urine Few (2-10); Culture Indicated Urine Specimen Cultured; Mucus Urine 1+ (Negative); RBC Urine None Seen (0-5/HPF); Squamous Epithelial Cell Urine 1-5 /HPF (0-5/HPF); WBC Urine 30-100/HPF (0-5/HPF)
[2022-10-03 14:12] LABS: Hemoglobin A1C% w Est Avg Glu 4.9 % (4.0-6.0)
[2022-10-03 14:14] LABS: Alanine Aminotransferase 33 IU/L (<35); Albumin 3.5 g/dL (3.5-5.0); Albumin Globulin Ratio 1.1 (1.0-2.8); Alkaline Phosphatase 164 U/L (38-126); Aspartate Aminotransferase 47 IU/L (14-36); BUN Creatinine Ratio 26.1 (6-22); Bilirubin Total 0.5 mg/dL (0.2-1.3); Blood Urea Nitrogen 18 mg/dL (7-17); Calcium 9.6 mg/dL (8.4-10.2); Carbon Dioxide 27 mmol/L (22-32); Chloride 104 mmol/L (98-107); Estimated Glomerular Filt Rate > 60 mL/min (>60); Globulin 3.2 g/dL (1.7-4.1); Glucose 94 mg/dL (80-110); HEMOLYSIS 29 (0-50); Potassium 4.8 mmol/L (3.4-5.1); Sodium 138 mmol/L (137-145); Total Protein 6.7 g/dL (6.3-8.2)
[2022-10-03 14:37] LABS: Total Iron Binding Capacity 191 ug/dL (265-497); Transferrin 145 mg/dL (206-381)
[2022-10-03 15:09] LABS: Vitamin B12 731 pg/mL (239-931)
[2022-10-03 15:39] LABS: HEMOLYSIS 29 (0-50); Iron 59 ug/dL (37-170); Percent Iron Saturation 31 % (15-50)
== END ==
PROVIDERS: PCP Family Medicine; Referring Provider Family Medicine; Visit Provider Family Medicine
DX: D64.9 Anemia, unspecified (principal); R73.03 Prediabetes; N18.30 Chronic kidney disease, stage 3 unspecified; D50.9 Iron deficiency anemia, unspecified; R30.0 Dysuria
CPT/HCPCS: 36415; 80053; 81001; 82607; 83036; 83540; 83550; 85025; 87086

== ENCOUNTER → 2022-12-05 12:11 | Outpatient (CLI) | payer MEDICARE, MEDICAID, SELFPAY ==
[2022-07-22 07:16] VITALS: RESP 28
[2022-07-22 14:33] VITALS: PULSE 127; RESP 38; O2SAT 100
[2022-09-20 08:20] VITALS: BMI 21.1
--- NOTE | 2022-12-05 | DI.US.S_ITS ---
PROCEDURE: US RENAL COMPLETE INDICATIONS: Bladder-neck obstruction TECHNIQUE: Real-time scanning was performed of the kidneys and bladder, with image documentation. COMPARISON: CT, CT CHEST ABD PEL W CON, 03/28/2022, 18:47. US, ABDOMEN COMPLETE, 04/08/2017, 22:02. [facility], CT, CT HEAD WITHOUT CONTRAST, 02/09/2021, 12:07. [facility], CT, CT ABDOMEN PELVIS WITH CONTRAST, 02/11/2021, 10:02. [facility], US, US ABDOMEN LIMITED, 07/21/2022, 21:36. FINDINGS: Kidneys: Kidneys are normal in size. Right kidney measures 9.6 cm long; left kidney measures 6.8 cm long. Right renal cortical thickness is 0.7 cm; left renal cortical thickness is 0.5 cm. There is a 0.8 cm cortical cyst in the superior pole of the right kidney. Multiple left renal calculi are seen in left kidney; 2 largest stones measuring 8 mm and 7 mm. No hydronephrosis or nephrolithiasis. No suspicious solid mass lesions. Bladder: Pre-void bladder volume is 122.8 mL. Post-void residual is 54.6 mL. Pre-void images demonstrate no intraluminal masses or stones. On pre-void images, both ureteral jets are noted with color Doppler interrogation. (Of note, ureteral jets may not be detectable in up to 25% of cases due to insufficient differences in specific gravity between ureteral and bladder urine). Miscellaneous: No free pelvic fluid. IMPRESSION: 1. Atrophic left kidney with multiple left renal calculi. No hydronephrosis. 2. Small 0.8 cm cyst in right kidney. Mild right renal cortical thinning. 3. A 54.6 cc postvoid residual in urinary bladder. Dictated by: Bishop Richter M.D. on 12/06/2022 at 11:26 Approved by: Bishop Richter M.D. on 12/06/2022 at 11:32
== END ==
PROVIDERS: PCP Family Medicine; Referring Provider Internal Medicine Nephrology; Visit Provider Internal Medicine Nephrology
DX: N32.0 Bladder-neck obstruction (principal); N17.9 Acute kidney failure, unspecified; N18.9 Chronic kidney disease, unspecified; N20.0 Calculus of kidney; N28.1 Cyst of kidney, acquired
CPT/HCPCS: 76770

== ENCOUNTER 2022-12-13 15:35 | Emergency (ER) | payer MEDICARE, MEDICAID, SELFPAY ==
[2022-07-22 07:16] VITALS: RESP 28
[2022-07-22 14:33] VITALS: PULSE 127; RESP 38; O2SAT 100
[2022-09-20 08:20] VITALS: BMI 21.1
[2022-12-13] VITALS (21 sets, daily range): BP systolic 97–130; BP diastolic 56–71; PULSE 90–113; RESP 9–20; TEMP 36.8; O2SAT 94–99; BMI 20.6
--- NOTE | 2022-12-13 15:42 | ED.GENADULT ---
HPI - General Adult General Chief complaint: Extremity Injury, Lower Stated complaint: GLF, L tib/fib deformity Time Seen by Provider: 12/13/22 15:36 History of Present Illness HPI narrative: 72-year-old female smoker with history of prediabetes, iron deficiency anemia, substance abuse, coronary artery disease status post NM, multiple prior orthopedic injuries presents by EMS for evaluation of an obvious deformity to her left lower extremity after a ground level fall. She states that she was walking in fell, twisting her lower leg which resulted in significant pain and inability to ambulate. She denies any head neck or back pain. She denies any chest pain, shortness of breath or cough. She is had no nausea, vomiting or diarrhea. She denies numbness, tingling or weakness. EMS evaluated patient and placed in vacuum splint, she was given 200 mcg of fentanyl in route. It should be noted that though Eliquis as listed in her medication list she very strongly denies any anticoagulation at any point Related Data Home Medications Medication Instructions Recorded Confirmed gabapentin 300 mg tablet 300 mg PO DAILY 05/02/22 09/20/22 bisacodyl 10 mg rectal suppository 10 mg [place] DAILY PRN Constipation 08/21/22 09/20/22 (Dulcolax (bisacodyl)) polyethylene glycol 3350 17 17 g PO DAILY 08/21/22 09/20/22 gram/dose oral powder (Miralax) metoprolol tartrate 25 mg tablet 12.5 mg PO BID 09/20/22 09/20/22 Previous Rx's Medication Instructions Recorded apixaban 5 mg tablet (Eliquis) 5 mg PO BID #180 tabs 08/21/22 pantoprazole 40 mg tablet,delayed 40 mg PO DAILY #90 tabs 09/14/22 release (Protonix) oxycodone 10 mg tablet 10 mg PO TID PRN pain #90 tabs 11/10/22 aspirin 81 mg tablet,delayed 81 mg PO DAILY #90 tabs 12/04/22 release (Adult Aspirin Regimen) atorvastatin 40 mg tablet 40 mg PO DAILY #90 tabs 12/04/22 methocarbamol 500 mg tablet 500 mg PO BID #60 tabs 12/04/22 Allergies Allergy/AdvReac Type Severity Reaction Status Date / Time furosemide [From Lasix] Allergy Intermediate Rash Verified 12/13/22 15:50 tramadol [TRAMADOL] Allergy Unknown Verified 12/13/22 15:50 amitriptyline [AMITRIPTYLINE] AdvReac Intermediate Confusion Verified 12/13/22 15:50 Review of Systems Review of Systems Narrative: GENERAL: Denies chills, fatigue, malaise, fever, sweats. HEENT: Denies sinus pain, ear pain, sore throat, difficulty swallowing, dizziness. RESPIRATORY: Denies dyspnea, cough, wheezing, hemoptysis, sputum. CARDIOVASCULAR: Denies chest pain, palpitations, orthopnea, edema, GASTROINTESTINAL: Denies nausea, vomiting, abdominal pain, diarrhea, constipation, melena. : Denies dysuria, frequency, incontinence, hematuria, urinary retention. MUSCULOSKELETAL: See HPI SKIN: Denies rash, skin lesions, or other NEUROLOGIC: Denies weakness, headache, numbness, change in speech, confusion, seizures, incoordination. PSYCHIATRIC: No concerning psychosocial issues. 12 point review of systems is negative except for those stated above Patient History Medical History Acute [place] Anxiety Arthritis C. difficile colitis Chronic pain Closed left clavicular fracture Colitis Compression fracture of L1 vertebra (~07/2019) COPD (chronic obstructive pulmonary disease) CVA (cerebral vascular accident) Depression Diarrhea DJD (degenerative joint disease) Fibromyalgia Fracture, tibia GI bleeding History of osteomyelitis History of recurrent UTIs HLD (hyperlipidemia) Hypertension Hypertension Insomnia Iron (Fe) deficiency anemia Left foot drop Left rib fracture Lumbar compression fracture (02/26/19) Migraines Multiple fractures Nephrolithiasis Neuropathy Numbness and tingling Osteoporosis Osteoporosis Peptic ulcer disease Pre-diabetes Radius fracture (08/30/17) Renal disease Septic shock Stage 3 chronic kidney disease Surgical History H/O: hysterectomy History of surgery Hx of appendectomy Hx of cholecystectomy Hx of elbow surgery Hx of kyphoplasty (~2013) Hx of kyphoplasty (04/28/19) Hx of kyphoplasty (07/28/19) Hx of tonsillectomy Status post epidural steroid injection (03/25/19) Family History Mother No known health problems COPD (chronic obstructive pulmonary disease) Father No known health problems Social History household members: significant other and children Smoking Status: Former smoker alcohol intake: current Smoking Status: Former smoker alcohol intake frequency: holidays/special occasions only Substance Use Type: does not use and former substance user Exam Narrative Exam Narrative: GENERAL: [72] year old patient appears older than stated age. Thin with evidence of chronic illness, does complain of some pain but relatively well controlled. GCS 15 HEAD: Atraumatic. Normocephalic. EYES: Pupils equal round and reactive. No hyphema Extraocular motions intact. No scleral icterus. No injection or drainage. ENT: Nose without bleeding, purulent drainage. Throat without erythema, tonsillar hypertrophy or exudate. Airway patent. NECK: Trachea midline. Non tender, no midline tenderness, step-offs or crepitance CARDIOVASCULAR: Regular rate and rhythm without murmurs, gallops, or rubs. RESPIRATORY: Clear to auscultation. Breath sounds equal bilaterally. No wheezes, rales, or rhonchi. GASTROINTESTINAL: Abdomen soft, non-tender, nondistended. EXTREMITIES: Obvious deformity of left lower extremity [id number] ecchymosis and swelling mid shaft of tibia. This is closed, isolated and neurovascularly intact BACK: Nontender without deformity or crepitance. No flank tenderness. NEURO: AOx3. SKIN: No rash or erythema of visible areas Initial Vital Signs Initial Vital Signs: Vital Signs Pulse Rate 113 H 12/13/22 15:40 Respiratory Rate 20 12/13/22 15:40 Blood Pressure 118/60 12/13/22 15:40 Pulse Oximetry 98 12/13/22 15:40 Oxygen Delivery Method Room Air 12/13/22 15:40 Procedures Orthopedic Splinting/Casting Injury #1: Side: left Lower Extremity Injury Location: lower leg Lower Extremity Immobilizer: Heck dressing Post splinting neuro exam: intact Post splinting vascular exam: intact Placed by: Nursing Course Orders Ordered: ED Orders 12/13/22 15:43 XR knee LT 1to2V Stat XR tibia fibula LT 2V Stat 12/13/22 16:30 Complete Blood Count AUTO DIFF Stat Comprehensive Metabolic Panel Stat Prothrombin Time INR Stat 12/13/22 20:40 COVID19 -Nasal RAPID Stat Hydromorphone HCl (Hydromorphone 0.5 Mg Inj) 0.5 mg IV Q2HR LACY Last Admin: 12/13/22 21:00 Dose: 0.5 mg Documented By: Admin: 12/13/22 19:08 Dose: 0.5 mg Documented By: OW Discontinued Medications Hydromorphone HCl (Hydromorphone 0.5 Mg Inj) 0.5 mg IV NOW ONE Stop: 12/13/22 17:02 Last Admin: 12/13/22 17:08 Dose: 0.5 mg Documented By: OW Consultations Consultation #1: Discussed with local orthopedist, Dr. Vazquez, we have reviewed clinical course and imaging and given complexity of the fracture with periprosthetic involvement he strongly recommends consultation and transfer with [facility] Consultation #2: Dr. Art ([facility] [place] happy to accept patient in transfer Vital Signs Vital signs: Vital Signs - 8 hr 12/13/22 15:44 12/13/22 15:40 12/13/22 16:00 Temperature 98.3 F Pulse Rate 110 H 113 H 105 H Respiratory Rate 14 20 20 Blood Pressure 118/60 118/60 118/56 L Pulse Oximetry 98 98 98 Oxygen Delivery Method Room Air Room Air Room Air 12/13/22 16:30 12/13/22 17:00 12/13/22 17:30 Temperature Pulse Rate 107 H 98 H 100 H Respiratory Rate 16 16 16 Blood Pressure 127/62 130/60 118/56 L Pulse Oximetry 99 98 99 Oxygen Delivery Method Room Air Room Air Room Air 12/13/22 18:00 12/13/22 18:30 12/13/22 19:00 Temperature Pulse Rate 100 H 98 H 97 H Respiratory Rate 20 20 Blood Pressure 114/61 112/60 Pulse Oximetry 98 98 98 Oxygen Delivery Method Room Air Room Air Medical Decision Making Lab Data 12/13/22 16:30 12/13/22 16:30 Labs: Lab Results 12/13/22 12/13/22 12/13/22 Range/Units 16:30 16:30 16:30 WBC 10.5 (4.5-11.0) X10^3/uL RBC 3.18 L (4.0-5.2) X10^6/uL Hgb 10.3 L (12.0-16.0) g/dL Hct 31.6 L (36-46) % MCV 99.1 (80-100) fL MCH 32.5 (26-34) PG MCHC 32.7 (30-36) % RDW 17.4 H (11.6-14.8) % Plt Count 377 (150-400) X10^3/uL Neut % (Auto) 70.4 (50-75) % Lymph % (Auto) 19.6 L (25-40) % [place] % (Auto) 9.1 (3-14) % Eos % (Auto) 0.3 L (2-4) % Baso % (Auto) 0.6 (0-2) % Neut # (Auto) 7400 H (3484-0116) /uL Lymph # (Auto) 2100 (2342-1852) /uL [place] # (Auto) 1000 H (0-900) /uL Eos # (Auto) 0 (0-450) /uL Baso # (Auto) 100 (0-100) /uL PT 11.6 (10.1-12.7) SECONDS INR 1.0 (0.9-1.3) Sodium 138 (137-145) mmol/L Potassium 4.4 (3.4-5.1) mmol/L Chloride 114 H (98-107) mmol/L Carbon Dioxide 16 L (22-32) mmol/L BUN 22 H (7-17) mg/dL Creatinine 1.13 H (0.52-1.04) mg/dL Estimated GFR 52 L (>60) mL/min BUN/Creatinine Ratio 19.5 (6-22) Glucose 108 (80-110) mg/dL Calcium 8.5 (8.4-10.2) mg/dL Total Bilirubin 0.4 (0.2-1.3) mg/dL AST 22 (14-36) IU/L ALT 18 (<35) IU/L Alkaline Phosphatase 181 H (38-126) U/L Total Protein 6.6 (6.3-8.2) g/dL Albumin 3.5 (3.5-5.0) g/dL Globulin 3.1 (1.7-4.1) g/dL Albumin/Globulin Ratio 1.1 (1.0-2.8) SARS-CoV-2 (PCR) (Negative) 12/13/22 Range/Units 20:40 WBC (4.5-11.0) X10^3/uL RBC (4.0-5.2) X10^6/uL Hgb (12.0-16.0) g/dL Hct (36-46) % MCV (80-100) fL MCH (26-34) PG MCHC (30-36) % RDW (11.6-14.8) % Plt Count (150-400) X10^3/uL Neut % (Auto) (50-75) % Lymph % (Auto) (25-40) % [place] % (Auto) (3-14) % Eos % (Auto) (2-4) % Baso % (Auto) (0-2) % Neut # (Auto) (3608-1123) /uL Lymph # (Auto) (1368-2011) /uL [place] # (Auto) (0-900) /uL Eos # (Auto) (0-450) /uL Baso # (Auto) (0-100) /uL PT (10.1-12.7) SECONDS INR (0.9-1.3) Sodium (137-145) mmol/L Potassium (3.4-5.1) mmol/L Chloride (98-107) mmol/L Carbon Dioxide (22-32) mmol/L BUN (7-17) mg/dL Creatinine (0.52-1.04) mg/dL Estimated GFR (>60) mL/min BUN/Creatinine Ratio (6-22) Glucose (80-110) mg/dL Calcium (8.4-10.2) mg/dL Total Bilirubin (0.2-1.3) mg/dL AST (14-36) IU/L ALT (<35) IU/L Alkaline Phosphatase (38-126) U/L Total Protein (6.3-8.2) g/dL Albumin (3.5-5.0) g/dL Globulin (1.7-4.1) g/dL Albumin/Globulin Ratio (1.0-2.8) SARS-CoV-2 (PCR) Negative (Negative) MDM Narrative Medical decision making narrative: 72-year-old female presents by EMS for evaluation of a ground level fall resulting in a closed, isolated and neurovascularly intact although complex, comminuted and angulated left lower extremity fracture around previously placed hardware. Patient has been splinted and pain controlled. [facility] given complexity of fracture and prior hardware. Patient understands and agrees with the diagnosis and plan Critical Care Time Critical Care Time Critical Care Time: Yes Total Critical Care Time: 30 Attestation: The high probability of a clinically significant, sudden or life threatening deterioration of the [MSK] system(s) required my full and direct attention, intervention and personal management. The aggregate critical care time was [30] minutes. This time is in addition to time spent performing reported procedures but includes the following: [x] Data Review and interpretation [x] Patient assessment and monitoring of vital signs [x] Documentation [x] Medication orders and management Discharge Plan Departure Patient Disposition: [facility] Clinical Impression: Displaced comminuted fracture of shaft of left tibia, initial encounter for closed fracture Prescriptions: No Action oxycodone 10 mg tablet 10 mg PO TID PRN (Reason: pain) Qty: 90 0RF aspirin [Adult Aspirin Regimen] 81 mg tablet,delayed release (DR/EC) 81 mg PO DAILY Qty: 90 2RF atorvastatin 40 mg tablet 40 mg PO DAILY Qty: 90 2RF methocarbamol 500 mg tablet 500 mg PO BID Qty: 60 0RF Rx Instructions: Pt to start taking after completing her TID prescription. pantoprazole [Protonix] 40 mg tablet,delayed release (DR/EC) 40 mg PO DAILY Qty: 90 3RF bisacodyl [Dulcolax (bisacodyl)] 10 mg suppository 10 mg [place] DAILY PRN (Reason: Constipation) polyethylene glycol 3350 [Miralax] 17 gram/dose powder 17 g PO DAILY Eliquis 5 mg tablet 5 mg PO BID Qty: 180 0RF metoprolol tartrate 25 mg Tablet 12.5 mg PO BID gabapentin 300 mg Tablet 300 mg PO DAILY Referrals: Jairo Powers, [Primary Care Provider] -
--- NOTE | 2022-12-13 15:43 | DI.RAD.S_ITS ---
PROCEDURE: XR KNEE LT 3V INDICATIONS: obvious deformity TECHNIQUE: 2 views of the knee were acquired. COMPARISON: None. FINDINGS: Bones: There is an impacted, displaced proximal fibular metadiaphyseal fracture. No other fracture or dislocation. Soft tissues: No joint effusion. No suspicious soft tissue calcifications. IMPRESSION: Proximal fibular fracture. Dictated by: Suellen Herrmann M.D. on 12/13/2022 at 16:29 Approved by: Suellen Herrmann M.D. on 12/13/2022 at 16:29
--- NOTE | 2022-12-13 15:43 | DI.RAD.S_ITS ---
PROCEDURE: XR TIBIA FIBULA LT 2V INDICATIONS: fall, obvious deformity TECHNIQUE: 2 views of the tibia and fibula were acquired. COMPARISON: None. FINDINGS: Bones: Patient is status post ORIF of the distal left fibula and tibia. A comminuted fracture is present within the proximal tibia above the fixation plate. There is approximately 20? anterior angulation at the apex of the fibular fracture. There is also a comminuted, impacted proximal fibular fracture. Soft tissues: No suspicious soft tissue calcifications or masses. IMPRESSION: 1. Comminuted, displaced, angulated proximal tibial diaphyseal fracture. 2. Impacted, displaced proximal fibular metadiaphyseal fracture. Dictated by: Suellen Herrmann M.D. on 12/13/2022 at 16:27 Approved by: Suellen Herrmann M.D. on 12/13/2022 at 16:29
[2022-12-13 16:45] LABS: Add Manual Diff / Slide Review NO; Basophils Absolute Auto 100 /uL (0-100); Basophils Percent Auto 0.6 % (0-2); Eosinophils Absolute Auto 0 /uL (0-450); Eosinophils Percent Auto 0.3 % (2-4); Hematocrit 31.6 % (36-46); Hemoglobin 10.3 g/dL (12.0-16.0); Lymphocytes Absolute Auto 2100 /uL (1100-4500); Lymphocytes Percent Auto 19.6 % (25-40); Mean Corpuscular HGB Conc 32.7 % (30-36); Mean Corpuscular Hemoglobin 32.5 PG (26-34); Mean Corpuscular Volume 99.1 fL (80-100); Monocytes Absolute Auto 1000 /uL (0-900); Monocytes Percent Auto 9.1 % (3-14); Neutrophils Absolute Auto 7400 /uL (1500-7000); Neutrophils Percent Auto 70.4 % (50-75); Platelet Count 377 X10^3/uL (150-400); Red Blood Cell Count 3.18 X10^6/uL (4.0-5.2); Red Cell Distribution Width 17.4 % (11.6-14.8); White Blood Cell Count 10.5 X10^3/uL (4.5-11.0)
[2022-12-13 16:51] LABS: Prothrombin Time 11.6 SECONDS (10.1-12.7)
[2022-12-13 16:55] LABS: Alanine Aminotransferase 18 IU/L (<35); Albumin 3.5 g/dL (3.5-5.0); Albumin Globulin Ratio 1.1 (1.0-2.8); Alkaline Phosphatase 181 U/L (38-126); Aspartate Aminotransferase 22 IU/L (14-36); BUN Creatinine Ratio 19.5 (6-22); Bilirubin Total 0.4 mg/dL (0.2-1.3); Blood Urea Nitrogen 22 mg/dL (7-17); Calcium 8.5 mg/dL (8.4-10.2); Carbon Dioxide 16 mmol/L (22-32); Chloride 114 mmol/L (98-107); Estimated Glomerular Filt Rate 52 mL/min (>60); Globulin 3.1 g/dL (1.7-4.1); Glucose 108 mg/dL (80-110); HEMOLYSIS < 15 (0-50); Potassium 4.4 mmol/L (3.4-5.1); Sodium 138 mmol/L (137-145); Total Protein 6.6 g/dL (6.3-8.2)
[2022-12-13] MEDS: HYDROMORPHONE 0.5 MG INJ IV ×4 (17:08→23:15)
[2022-12-13 21:05] LABS: COVID19 -Nasal RAPID Negative (Negative)
[2022-12-14] VITALS: BP 93/62; PULSE 88; RESP 14; O2SAT 94
== END 2022-12-14 00:14 | disposition short-term general hospital (02) ==
PROVIDERS: Emergency Provider Emergency Medicine; PCP Family Medicine
DX: S82.202A Unspecified fracture of shaft of left tibia, initial encounter for closed fracture (principal); W18.30XA Fall on same level, unspecified, initial encounter; Z79.01 Long term (current) use of anticoagulants; Z20.822 Contact with and (suspected) exposure to COVID-19
CPT/HCPCS: 73560; 73590; 80053; 85025; 85610; 87635; 96374; 96376; 99284; C9803; J1170

== ENCOUNTER → 2023-02-08 13:58 | Outpatient (CLI) | payer MEDICARE, MEDICAID, SELFPAY ==
[2022-07-22 07:16] VITALS: RESP 28
[2022-07-22 14:33] VITALS: PULSE 127; RESP 38; O2SAT 100
[2022-09-20 08:20] VITALS: BMI 21.1
--- NOTE | 2023-02-08 | DI.CT.S_ITS ---
PROCEDURE: CT CHEST WO CON INDICATIONS: lung cancer screening TECHNIQUE: Noncontrast 5 mm thick sections acquired from the pulmonary apices to the posterior costophrenic angles. 1 mm lung window, 5 mm thick coronal and sagittal and 7 mm axial MIP reformats were then acquired. For radiation dose reduction, the following was used: automated exposure control, adjustment of mA and/or kV according to patient size. COMPARISON: [facility], CT, CT CHEST WO CON, 06/21/2022, 14:06. FINDINGS: Image quality: Good Lungs and pleura: Scattered scarring atelectasis, including bronchial thickening in the medial left lower lobe with possible endobronchial obstruction and downstream collapse lung adjacent to the pleura (3/192). There are numerous suspected granulomas, no overtly suspicious nodule. Mediastinum, heart, and esophagus: Moderate wall thickening in the esophagus. This was seen previously. There are coronary calcifications. No pathologic adenopathy by size criteria. Chest wall and thyroid: Possible soft tissue prominence in the infra scapular regions bilaterally (2/31, 2/30, probably present previously. These are typically incidental benign elastofibroma dorsi. Upper abdomen: No gross abnormality on these limited non-contrast images. The upper abdomen is only partially seen. Bones: No acute or suspicious osseous finding. There are degenerative changes. Partially seen height loss of the T12 vertebral body was seen previously. Old rib deformities. IMPRESSION: Suspected endobronchial obstruction in the medial left lower lobe bronchus (3/192), possibly secondary to a mucous plug, with suspected downstream atelectasis in the subpleural region. Lung RADS 4A, recommend 3 month follow-up. Additional stable/incidental findings above. Coronary calcifications are present. Dictated by: Tristen Katz M.D. on 02/08/2023 at 16:10 Approved by: Tristen Katz M.D. on 02/08/2023 at 16:19
--- NOTE | 2023-02-08 | DI.NM.S_ITS ---
PROCEDURE: NM RENAL FUNCTION W LASIX RADIOPHARMACEUTICAL: 10.2 mCi Tc-99m MAG3 IV and 40 mg furosemide IV. INDICATIONS: LEFT RENAL ATROPHY TECHNIQUE: The patient was hydrated orally before the examination was begun. After intravenous administration of Tc-99m MAG3, posterior abdominal radionuclide angiogram and sequential (1 minute each frame) renal images were obtained. A time-activity curve for each kidney was generated and analyzed. To evaluate for obstruction, the patient was given 40 mg furosemide via slow intravenous injection after the start of the examination. Sequential images were obtained for up to an additional 20 minutes. COMPARISON: [facility], , ABDOMEN LIMITED, 07/21/2022, 21:36. Formerly [facility], US RENAL COMPLETE, 12/05/2022, 12:53. FINDINGS: Perfusion: There is normal vascular flow to both kidneys. Morphology: Left kidney is decreased in size. Right kidney is normal in size and shape. No dilated collecting systems are seen. The ureters and bladder fill with tracer, and appear normal. Function: There is delayed and decreased renal cortical uptake and excretion by the left kidney. Mild delayed left renal cortical uptake and excretion is also seen in right kidney. The right kidney contributes 84% of total renal function. The left kidney contributes 16% of total renal function. Lasix stimulation: After diuretic administration, there is prompt clearance of tracer activity from the renal collecting systems in both kidneys. The half-time of emptying of tracer activity from the right pelvicaliceal system is 4 minutes. The half-time of emptying from the left pelvicaliceal system is 5 minutes. Normal emptying half-times are less than 10 minutes; borderline ranges are from 10 to 20 minutes. IMPRESSION: 1. Significantly decreased left renal function with the left kidney contributing to 16% of total renal function. 2. Mildly delayed right renal cortical uptake. The right kidney contributes to 84% of total renal function. 3. No renal obstructions in either kidneys Dictated by: Bishop Richter M.D. on 02/08/2023 at 15:37 Approved by: Bishop Richter M.D. on 02/08/2023 at 16:38
== END ==
PROVIDERS: PCP Family Medicine; Referring Provider Internal Medicine Nephrology; Visit Provider Internal Medicine Nephrology
DX: N26.1 Atrophy of kidney (terminal) (principal); Z12.2 Encounter for screening for malignant neoplasm of respiratory organs; I25.10 Atherosclerotic heart disease of native coronary artery without angina pectoris
CPT/HCPCS: 71250; 78708; A9562

== ENCOUNTER → 2023-02-15 10:07 | Outpatient (CLI) | payer MEDICARE, MEDICAID, SELFPAY ==
[2022-07-22 07:16] VITALS: RESP 28
[2022-07-22 14:33] VITALS: PULSE 127; RESP 38; O2SAT 100
[2022-09-20 08:20] VITALS: BMI 21.1
[2023-02-15 11:19] LABS: Appearance Urine UA CLEAR; Bilirubin Urine UA NEGATIVE (NEGATIVE); Color Urine UA YELLOW; Glucose Urine UA NEGATIVE (Negative); Ketones Urine UA NEGATIVE (NEGATIVE); Leukocyte Esterase Urine UA 1+ (NEGATIVE); Nitrite Urine UA NEGATIVE (Negative); Occult Blood Urine UA NEGATIVE (Negative); Protein Urine UA NEGATIVE (Negative); Urobilinogen Urine UA 0.2 E.U./dL (0.2); pH Urine UA 7.5 (4.5-8.0)
[2023-02-15 11:21] LABS: Bacteria Urine Few (2-10); Culture Indicated Urine Specimen Cultured; RBC Urine 1-5/HPF (0-5/HPF); Squamous Epithelial Cell Urine 1-5 /HPF (0-5/HPF); WBC Urine 5-10/HPF (0-5/HPF)
== END ==
PROVIDERS: PCP Family Medicine; Referring Provider Internal Medicine; Visit Provider Internal Medicine
DX: R30.0 Dysuria (principal); Z86.19 Personal history of other infectious and parasitic diseases
CPT/HCPCS: 81001; 87086

== ENCOUNTER 2023-03-02 22:07 | Observation (INO) | payer MEDICARE, MEDICAID, SELFPAY ==
[2022-07-22 07:16] VITALS: RESP 28
[2022-07-22 14:33] VITALS: PULSE 127; RESP 38; O2SAT 100
[2022-09-20 08:20] VITALS: BMI 21.1
[2023-03-02 22:09] VITALS: BP 154/70; PULSE 122; RESP 23; TEMP 36.9; BMI 19.1
--- NOTE | 2023-03-02 22:12 | DI.RAD.S_ITS ---
PROCEDURE: XR FEMUR LT MIN 2V INDICATIONS: proximal femur pain TECHNIQUE: A total of 4 views of the femur were acquired. COMPARISON: [facility], CR, XR TIBIA FIBULA LEFT, 02/07/2023, 10:17. [facility], CR, XR TIBIA FIBULA LEFT, 12/14/2022, 4:44. [facility], CR, XR TIBIA FIBULA LT 2V, 12/13/2022, 15:40. FINDINGS: Bones: No fractures or dislocations. No suspicious bony lesions. Slightly visualized left tibial long medullary medardo noted, previously well visualized 02/07/23 from [facility]. Soft tissues: No suspicious soft tissue calcifications or masses. IMPRESSION: No trauma found, source of pain is not seen. Dictated by: Anthony Jordan M.D. on 03/02/2023 at 23:43 Approved by: Anthony Jordan M.D. on 03/02/2023 at 23:45
--- NOTE | 2023-03-02 22:30 | PC.NURSE ---
Two RNs attempted IV starts (including US) and blood specimen collection without success. Third RN contacted for US start.
[2023-03-02 22:43] VITALS: PULSE 116; RESP 23; O2SAT 100
[2023-03-02 22:45] VITALS: BP 122/62; PULSE 116; RESP 18; O2SAT 99
[2023-03-02 23:00] VITALS: BP 118/62; PULSE 119; RESP 13; O2SAT 97
[2023-03-02] MEDS: HYDROMORPHONE 0.5 MG INJ IV (23:06)
[2023-03-02 23:30] VITALS: PULSE 115; RESP 14; O2SAT 98
--- NOTE | 2023-03-02 23:40 | PC.NURSE ---
Safe handoff report to JESUS Corona
[2023-03-02 23:43] VITALS: BP 121/69; PULSE 119; RESP 17; O2SAT 95
[2023-03-02 23:48] LABS: Appearance Urine UA CLEAR; Bilirubin Urine UA 1+ (NEGATIVE); Color Urine UA YELLOW; Glucose Urine UA NEGATIVE (Negative); Ketones Urine UA 1+ (NEGATIVE); Leukocyte Esterase Urine UA TRACE (NEGATIVE); Nitrite Urine UA NEGATIVE (Negative); Occult Blood Urine UA TRACE-INTACT (Negative); Protein Urine UA TRACE (Negative); Urobilinogen Urine UA 0.2 E.U./dL (0.2)
[2023-03-02 23:54] LABS: Ictotest Urine Negative (Negative)
[2023-03-03] VITALS (13 sets, daily range): BP systolic 105–146; BP diastolic 56–75; PULSE 83–115; RESP 10–27; TEMP 36.5–36.6; O2SAT 96–100; BMI 19.1
[2023-03-03 00:03] LABS: Add Manual Diff / Slide Review YES; Hematocrit 33.8 % (36-46); Mean Corpuscular HGB Conc 32.7 % (30-36); Mean Corpuscular Hemoglobin 33.3 PG (26-34); Mean Corpuscular Volume 101.8 fL (80-100); Platelet Count 450 X10^3/uL (150-400); Red Blood Cell Count 3.32 X10^6/uL (4.0-5.2); Red Cell Distribution Width 15.1 % (11.6-14.8); White Blood Cell Count 27.2 X10^3/uL (4.5-11.0)
[2023-03-03 00:14] LABS: Lactate (Lactic Acid) 1.1 mmol/L (0.7-2.1)
[2023-03-03 00:15] LABS: Alanine Aminotransferase 54 IU/L (<35); Albumin Globulin Ratio 1.1 (1.0-2.8); Alkaline Phosphatase 320 U/L (38-126); Aspartate Aminotransferase 83 IU/L (14-36); BUN Creatinine Ratio 18.8 (6-22); Bilirubin Total 0.7 mg/dL (0.2-1.3); Blood Urea Nitrogen 25 mg/dL (7-17); Calcium 8.7 mg/dL (8.4-10.2); Carbon Dioxide 16 mmol/L (22-32); Chloride 103 mmol/L (98-107); Estimated Glomerular Filt Rate 43 mL/min (>60); Globulin 3.8 g/dL (1.7-4.1); Glucose 91 mg/dL (80-110); HEMOLYSIS < 15 (0-50); Potassium 4.8 mmol/L (3.4-5.1); Sodium 134 mmol/L (137-145); Total Protein 7.8 g/dL (6.3-8.2)
[2023-03-03 00:15] LABS: Bacteria Urine None Seen; Culture Indicated Urine Specimen Cultured; RBC Urine None Seen (0-5/HPF); Squamous Epithelial Cell Urine None Seen (0-5/HPF); WBC Urine 1-5/HPF (0-5/HPF)
[2023-03-03 00:39] LABS: Anisocytosis 1+; Macrocytosis 1+; Neutrophils Absolute Manual 24480 /uL (3000-5900); Total Cells Counted 100
[2023-03-03 00:40] LABS: Platelet Estimate Increased on smear; Toxic Granulation Present
--- NOTE | 2023-03-03 02:25 | ED.LOWEXIN ---
HPI - Extremity Injury (Lower) General Chief Complaint: Extremity Injury, Lower Stated Complaint: weakness- LLE pain Time Seen by Provider: 03/02/23 22:12 Source: patient and EMS Mode of arrival: EMS History of Present Illness HPI Narrative: 72-year-old woman brought in by medics with complaints of left leg pain. She has a history of cardiovascular disease it is unclear if she is actually taking apixaban currently, chronic pain syndrome from multiple lumbar fractures due to osteoporosis, hypertension, recurrent urinary tract infections, osteoporosis, renal disease, peptic ulcer disease with prior GI bleeding, recent displaced comminuted tibial shaft fracture. She lives at home has a caregiver who medics report did not seem particularly medically knowledgeable regarding her specific care. Reportedly diagnosed with a urinary tract infection recently but has not taken her antibiotics, cipro, for the last 24-36 hours. Her main complaint today is left leg pain. She reported no fevers, cough, chills. She is alert and oriented. Related Data Home Medications Medication Instructions Recorded Confirmed bisacodyl 10 mg rectal suppository 10 mg WA DAILY PRN Constipation 08/21/22 02/15/23 (Dulcolax (bisacodyl)) polyethylene glycol 3350 17 17 g PO DAILY 08/21/22 02/15/23 gram/dose oral powder (Miralax) diclofenac sodium 1 % topical gel 2 g topical QID PRN 02/15/23 02/15/23 gabapentin 300 mg capsule See Rx Instructions PO .COMPLEX 02/15/23 02/15/23 sodium bicarbonate 650 mg tablet 1,300 mg PO BID 02/15/23 02/15/23 Previous Rx's Medication Instructions Recorded apixaban 5 mg tablet (Eliquis) 5 mg PO BID #180 tabs 08/21/22 pantoprazole 40 mg tablet,delayed 40 mg PO DAILY #90 tabs 09/14/22 release (Protonix) aspirin 81 mg tablet,delayed 81 mg PO DAILY #90 tabs 12/04/22 release (Adult Aspirin Regimen) atorvastatin 40 mg tablet 40 mg PO DAILY #90 tabs 12/04/22 alendronate 70 mg tablet (Fosamax) 70 mg PO QWEEK #12 tabs 01/17/23 carisoprodol 350 mg tablet 350 mg PO TID #60 tabs 02/15/23 ciprofloxacin HCl 500 mg tablet 500 mg PO BID #20 tabs 02/15/23 metoprolol tartrate 25 mg tablet 12.5 mg PO BID #90 tabs 02/15/23 oxycodone 10 mg tablet 10 mg PO TID PRN pain #90 tabs 02/26/23 Allergies Allergy/AdvReac Type Severity Reaction Status Date / Time furosemide [From Lasix] Allergy Intermediate Rash Verified 02/15/23 11:09 tramadol [TRAMADOL] Allergy Unknown Verified 02/15/23 11:09 amitriptyline [AMITRIPTYLINE] AdvReac Intermediate Confusion Verified 02/15/23 11:09 Review of Systems Review of Systems Narrative: Pertinent positive and negative findings as per HPI Patient History Medical History (Updated 03/03/23 @ 05:57 by Delores Massey MD) Acute OK Anxiety Arthritis C. difficile colitis Chronic kidney disease Chronic pain Closed left clavicular fracture Colitis Compression fracture of L1 vertebra (~07/2019) COPD (chronic obstructive pulmonary disease) CVA (cerebral vascular accident) Depression Diarrhea Displaced comminuted fracture of shaft of tibia DJD (degenerative joint disease) Fibromyalgia Fracture, tibia GI bleeding History of osteomyelitis History of recurrent UTIs HLD (hyperlipidemia) Hypertension Hypertension Insomnia Iron (Fe) deficiency anemia Left foot drop Left rib fracture Lumbar compression fracture (02/26/19) Migraines Multiple fractures Nephrolithiasis Neuropathy Numbness and tingling Osteoporosis Osteoporosis Peptic ulcer disease Pre-diabetes Radius fracture (08/30/17) Recurrent UTI Renal disease Septic shock Stage 3 chronic kidney disease Surgical History H/O: hysterectomy History of surgery Hx of appendectomy Hx of cholecystectomy Hx of elbow surgery Hx of kyphoplasty (~2013) Hx of kyphoplasty (04/28/19) Hx of kyphoplasty (07/28/19) Hx of tonsillectomy Status post epidural steroid injection (03/25/19) Family History Mother No known health problems COPD (chronic obstructive pulmonary disease) Father No known health problems Social History household members: significant other and children Smoking Status: Former smoker alcohol intake: current Smoking Status: Former smoker alcohol intake frequency: holidays/special occasions only Substance Use Type: does not use and former substance user Exam Initial Vital Signs Initial Vital Signs: Vital Signs Temperature 98.4 F 03/02/23 22:09 Pulse Rate 122 H 03/02/23 22:09 Respiratory Rate 23 03/02/23 22:09 Blood Pressure 154/70 H 03/02/23 22:09 Oxygen Delivery Method Room Air 03/02/23 22:09 General: Chronically ill-appearing but in no acute distress. Able to give a complete and coherent history. Well-nourished well-developed HEENT: Dry mucous membranes, normal sclera with reactive pupils, Neck: No JVD, supple Respiratory: Lungs are clear to auscultation, no wheezing no rales no rhonchi. Full and symmetrical air movement Cardiac: Tachycardic but otherwise Regular rate and rhythm no murmurs no bruits Abdomen: Soft, mild non diffuse tenderness, no flank pain Skin: Warm and dry, no rashes Neurologic: Grossly neurologically intact with no obvious asymmetries or abnormalities Extremities: No new trauma, well perfused. Complains of tenderness in the left upper thigh but this is not reproducible. She has a mild effusion in the left knee that is not warm to the touch. She does not want to put her leg down. Psych: Fluent speech, not oriented to person or place and continues to complain of leg pain Course Orders Ordered: ED Orders 03/02/23 22:12 XR femur LT min 2V Stat Blood Culture Stat 03/02/23 22:40 Ictotest Urine Stat Urinalysis and Microscopic Stat Urine Culture Stat 03/02/23 23:45 Complete Blood Count AUTO DIFF Stat Comprehensive Metabolic Panel Stat Lactate (Lactic Acid) Stat 03/03/23 02:48 Procalcitonin Stat 03/03/23 02:49 CT abdomen pelvis w con Stat XR chest 1V Stat Hydromorphone HCl (Hydromorphone 0.5 Mg Inj) 0.5 mg IV Q15MIN PRN PRN Reason: Pain, Discontinued Medications Hydromorphone HCl (Hydromorphone 0.5 Mg Inj) 0.5 mg IV Q15MIN PRN PRN Reason: Pain, Last Admin: 03/02/23 23:06 Dose: 0.5 mg Documented By: Hydromorphone HCl (Hydromorphone 1 Mg Inj) 1 mg IV NOW ONE Stop: 03/03/23 02:49 Last Admin: 03/03/23 03:02 Dose: 1 mg Documented By: AIDAN Hydromorphone HCl (Hydromorphone 1 Mg Inj) 1 mg IV NOW ONE Stop: 03/03/23 03:21 Last Admin: 03/03/23 03:49 Dose: 1 mg Documented By: AIDAN Sodium Chloride (Normal Saline 0.9%) 1,000 mls @ 1,000 mls/hr IV BOLUS ONE Stop: 03/03/23 03:47 Last Infusion: 03/03/23 04:05 Dose: 0 mls/hr Documented By: Admin: 03/03/23 03:00 Dose: 1,000 mls/hr Documented By: AIDAN Piperacillin Sod/Tazobactam (Sod 4.5 gm/ Sodium Chloride) 100 mls @ 200 mls/hr IV NOW ONE Stop: 03/03/23 02:53 Last Infusion: 03/03/23 04:51 Dose: 0 mls/hr Documented By: Admin: 03/03/23 04:00 Dose: 200 mls/hr Documented By: AIDAN Vital Signs Vital signs: Vital Signs - 8 hr 03/02/23 22:09 03/02/23 22:43 03/02/23 22:45 Temperature 98.4 F Pulse Rate 122 H 116 H 116 H Respiratory Rate 23 23 18 Blood Pressure 154/70 H Pulse Oximetry 100 99 Oxygen Delivery Method Room Air 03/02/23 22:45 03/02/23 23:00 03/02/23 23:00 Temperature Pulse Rate 119 H Respiratory Rate 13 Blood Pressure 122/62 118/62 Pulse Oximetry 97 Oxygen Delivery Method 03/02/23 23:30 03/02/23 23:43 03/02/23 23:43 Temperature Pulse Rate 115 H 119 H Respiratory Rate 14 17 Blood Pressure 121/69 Pulse Oximetry 98 95 Oxygen Delivery Method 03/03/23 00:00 03/03/23 00:00 03/03/23 00:30 Temperature Pulse Rate 113 H Respiratory Rate 18 Blood Pressure 105/63 106/57 L Pulse Oximetry 97 Oxygen Delivery Method 03/03/23 00:30 03/03/23 01:00 03/03/23 01:00 Temperature Pulse Rate 110 H 108 H Respiratory Rate 10 L 12 Blood Pressure 108/56 L Pulse Oximetry 97 96 Oxygen Delivery Method 03/03/23 01:30 03/03/23 01:30 03/03/23 02:00 Temperature Pulse Rate 109 H Respiratory Rate 12 Blood Pressure 118/60 137/68 Pulse Oximetry 97 Oxygen Delivery Method 03/03/23 02:00 03/03/23 02:30 03/03/23 02:30 Temperature Pulse Rate 108 H 112 H Respiratory Rate 11 L 11 L Blood Pressure 146/75 H Pulse Oximetry 98 98 Oxygen Delivery Method 03/03/23 03:00 03/03/23 03:00 Temperature Pulse Rate 111 H Respiratory Rate 27 H Blood Pressure 143/71 H Pulse Oximetry 99 Oxygen Delivery Method MDM - Extremity Injury (Lower) Lab Data 03/02/23 23:45 03/02/23 23:45 Labs: Lab Results 03/02/23 03/02/23 03/02/23 Range/Units 22:40 23:45 23:45 WBC 27.2 H (4.5-11.0) X10^3/uL RBC 3.32 L (4.0-5.2) X10^6/uL Hgb 11.0 L (12.0-16.0) g/dL Hct 33.8 L (36-46) % MCV 101.8 H (80-100) fL MCH 33.3 (26-34) PG MCHC 32.7 (30-36) % RDW 15.1 H (11.6-14.8) % Plt Count 450 H (150-400) X10^3/uL Neut % (Auto) Not Reportable Lymph % (Auto) Not Reportable [place] % (Auto) Not Reportable Eos % (Auto) Not Reportable Baso % (Auto) Not Reportable Lymph # (Auto) Not Reportable [place] # (Auto) Not Reportable Baso # (Auto) Not Reportable Total Counted 100 Seg Neutrophils % 87.0 H (38-70) % Band Neutrophils % 3.0 (3-7) % Lymphocytes % (Manual) 7.0 L (25-45) % Monocytes % (Manual) 2.0 (2-11) % Basophils % (Manual) 1.0 (0-1) % Neutrophils # (Manual) 18792 H (0959-2803) /uL Toxic Granulation Present H Platelet Estimate Increased on smear RBC Morphology See below Anisocytosis 1+ H Macrocytosis 1+ H Sodium 134 L (137-145) mmol/L Potassium 4.8 (3.4-5.1) mmol/L Chloride 103 (98-107) mmol/L Carbon Dioxide 16 L (22-32) mmol/L BUN 25 H (7-17) mg/dL Creatinine 1.33 H (0.52-1.04) mg/dL Estimated GFR 43 L (>60) mL/min BUN/Creatinine Ratio 18.8 (6-22) Glucose 91 (80-110) mg/dL Lactate (0.7-2.1) mmol/L Calcium 8.7 (8.4-10.2) mg/dL Total Bilirubin 0.7 (0.2-1.3) mg/dL AST 83 H (14-36) IU/L ALT 54 H (<35) IU/L Alkaline Phosphatase 320 H (38-126) U/L Total Protein 7.8 (6.3-8.2) g/dL Albumin 4.0 (3.5-5.0) g/dL Globulin 3.8 (1.7-4.1) g/dL Albumin/Globulin Ratio 1.1 (1.0-2.8) Procalcitonin (<0.5) ng/mL Urine Color Yellow Urine Appearance Clear Urine pH 6.0 (4.5-8.0) Ur Specific [place] 1.010 (1.000-1.035) Urine Protein Trace H (Negative) Urine Glucose (UA) Negative (Negative) g/dL Urine Ketones 1+ H (NEGATIVE) Urine Occult Blood Trace-intact (Negative) Urine Nitrate Negative (Negative) Urine Bilirubin 1+ H (NEGATIVE) Ur Bilirubin Confirm Negative (Negative) Urine Urobilinogen 0.2 (0.2) E.U./dL Ur Leukocyte Esterase Trace H (NEGATIVE) Urine RBC None seen (0-5/HPF) Urine WBC 1-5/hpf (0-5/HPF) Ur Squamous Epith Cells None seen (0-5/HPF) Urine Bacteria None seen (None) Ur Culture Indicated? Specimen cultured 03/02/23 03/02/23 Range/Units 23:45 23:45 WBC (4.5-11.0) X10^3/uL RBC (4.0-5.2) X10^6/uL Hgb (12.0-16.0) g/dL Hct (36-46) % MCV (80-100) fL MCH (26-34) PG MCHC (30-36) % RDW (11.6-14.8) % Plt Count (150-400) X10^3/uL Neut % (Auto) Lymph % (Auto) [place] % (Auto) Eos % (Auto) Baso % (Auto) Lymph # (Auto) [place] # (Auto) Baso # (Auto) Total Counted Seg Neutrophils % (38-70) % Band Neutrophils % (3-7) % Lymphocytes % (Manual) (25-45) % Monocytes % (Manual) (2-11) % Basophils % (Manual) (0-1) % Neutrophils # (Manual) (9959-5520) /uL Toxic Granulation Platelet Estimate RBC Morphology Anisocytosis Macrocytosis Sodium (137-145) mmol/L Potassium (3.4-5.1) mmol/L Chloride (98-107) mmol/L Carbon Dioxide (22-32) mmol/L BUN (7-17) mg/dL Creatinine (0.52-1.04) mg/dL Estimated GFR (>60) mL/min BUN/Creatinine Ratio (6-22) Glucose (80-110) mg/dL Lactate 1.1 (0.7-2.1) mmol/L Calcium (8.4-10.2) mg/dL Total Bilirubin (0.2-1.3) mg/dL AST (14-36) IU/L ALT (<35) IU/L Alkaline Phosphatase (38-126) U/L Total Protein (6.3-8.2) g/dL Albumin (3.5-5.0) g/dL Globulin (1.7-4.1) g/dL Albumin/Globulin Ratio (1.0-2.8) Procalcitonin 4.68 H (<0.5) ng/mL Urine Color Urine Appearance Urine pH (4.5-8.0) Ur Specific [place] (1.000-1.035) Urine Protein (Negative) Urine Glucose (UA) (Negative) g/dL Urine Ketones (NEGATIVE) Urine Occult Blood (Negative) Urine Nitrate (Negative) Urine Bilirubin (NEGATIVE) Ur Bilirubin Confirm (Negative) Urine Urobilinogen (0.2) E.U./dL Ur Leukocyte Esterase (NEGATIVE) Urine RBC (0-5/HPF) Urine WBC (0-5/HPF) Ur Squamous Epith Cells (0-5/HPF) Urine Bacteria (None) Ur Culture Indicated? MDM Narrative Medical decision making narrative: CC: Altered mental status, Left leg pain concern for urinary tract infection. This is an acute problem uncertain prognosis Complicating co-morbidities: Chronic urinary tract infections, recent tibia fracture, multiple medical issues, has a caregiver at home unclear if he is able to provide the level of care that she is requiring. Data collected from: patient, EMS Medical records reviewed: Primary care visit from February 15 is reviewed. ER note with details of left tibial fracture on December 13 and primary care notes from September are all reviewed Differential considered: New fracture, untreated urinary tract infection, chronic pain Exam documented above, pertinent findings include: Lab Test results independently reviewed as above. Pertinent findings: Urine has trace protein ketones bilirubin no nitrates. Trace leukocyte esterase no red cells no bacteria. Urine has been cultured CBC is notable for a white count of 27.2. Chronic stable anemia. 87% neutrophils with toxic granulation appreciated. Chemistries show a sodium of 134, creatinine is mildly elevated at 1.33 similar to November significant change from 0.69 in September. Mild AST ALT alk-phos elevation without elevated bilirubin. Independently reviewed EKG as above Imaging studies independently reviewed: Femur x-ray reviews no significant trauma or source of pain. CT scan of the abdomen shows large left collecting system stones without ureteral stone or obstruction. Small amount of right pericolic gutter free fluid uncertain significance. Large fecal burden no bowel obstruction. Treatments: Zosyn was started after blood cultures were obtained, fluids for dehydration, parenteral narcotics for pain control Re-evaluations: 320am called to CT scan to re-evaluate the patient. After 4 mg of Dilaudid was given she continues to cry out with pain lying on the CT scanner. Declines to extend her legs. She is given additional mg of Dilaudid and we will try to turn her so the were able to scan her abdomen and pelvis without needing to fully extend her legs. Discussion: 72-year-old woman with altered mental status, leukocytosis 27.2 complaints of thigh pain without objective finding complaints of abdominal pain with noted constipation but no other objective findings. Concern for infection uncertain source. She does have a history of chronic urinary tract infection recently was on Cipro, urine today has only trace leukocyte esterase and no bacteria. The specimen has been cultured. CT scan does not show an obvious source. Apparently she had a psoas abscess a couple of years ago I am not seeing evidence of that today. I do not see cellulitis or other skin explanations for the significant leukocytosis. Septic hip could certainly be within the differential however I would expect pain perhaps see elevated procalcitonin but not the dramatic leukocytosis. I do not suspect meningitis given lack of headache and lack of meningeal signs. Care is reviewed with admitting hospitalist, Dr Oconnor. Given the undiagnosed left leg pain with no objective source, significant leukocytosis and altered mental status patient has been started on Zosyn. Mild dehydration without evidence of sepsis. Blood cultures have been obtained urine cultures are obtained. Patient is admitted to the hospitalist service for further evaluation. Discharge Plan Departure Patient Disposition: Admitted as Observation Clinical Impression: Leukocytosis, Altered mental state, Acute pain of left lower extremity Prescriptions: No Action aspirin [Adult Aspirin Regimen] 81 mg tablet,delayed release (DR/EC) 81 mg PO DAILY Qty: 90 2RF atorvastatin 40 mg tablet 40 mg PO DAILY Qty: 90 2RF metoprolol tartrate 25 mg tablet 12.5 mg PO BID Qty: 90 1RF Rx Instructions: Take 1/2 a tablet twice a day for a total of 25 mg per day oxycodone 10 mg tablet 10 mg PO TID PRN (Reason: pain) Qty: 90 0RF pantoprazole [Protonix] 40 mg tablet,delayed release (DR/EC) 40 mg PO DAILY Qty: 90 3RF bisacodyl [Dulcolax (bisacodyl)] 10 mg suppository 10 mg WA DAILY PRN (Reason: Constipation) polyethylene glycol 3350 [Miralax] 17 gram/dose powder 17 g PO DAILY Eliquis 5 mg tablet 5 mg PO BID Qty: 180 0RF diclofenac sodium 1 % gel 2 g topical QID PRN sodium bicarbonate 650 mg tablet 1,300 mg PO BID Patient Comments: Take 2 tablets (1,300 mg total) by mouth in the morning and 2 tablets (1,300 mg total) in the evening. gabapentin 300 mg capsule See Rx Instructions PO .COMPLEX Patient Comments: TAKE 1 CAPSULE BY MOUTH DAILY IN THE MORNING, 1 CAPSULE DAILY IN THE AFTERNOON, AND TAKE 3 CAPSULES NIGHTLY AT BEDTIME, FOR A TOTAL DAILY DOSE OF 1500 MG Rx Instructions: TAKE 1 CAPSULE BY MOUTH DAILY IN THE MORNING, 1 CAPSULE DAILY IN THE AFTERNOON, AND TAKE 3 CAPSULES NIGHTLY AT BEDTIME, FOR A TOTAL DAILY DOSE OF 1500 MG ciprofloxacin HCl 500 mg tablet 500 mg PO BID Qty: 20 0RF carisoprodol 350 mg tablet 350 mg PO TID Qty: 60 0RF alendronate [Fosamax] 70 mg tablet 70 mg PO QWEEK Qty: 12 3RF Referrals: Jairo Powers, [Primary Care Provider] -
--- NOTE | 2023-03-03 02:49 | DI.CT.S_ITS ---
PROCEDURE: CT ABDOMEN PELVIS W CON INDICATIONS: abdominal pain TECHNIQUE: After the administration of intravenous contrast, axial sections acquired from the lung bases to the pubic symphysis. Coronal and sagittal reformats were performed. For radiation dose reduction, the following was used: automated exposure control, adjustment of mA and/or kV according to patient size. COMPARISON: [facility], CT, CT ABDOMEN PELVIS W CON, 11/12/2020, 14:57. FINDINGS: Image quality: Excellent. Lung bases: Trace left pleural effusion and bibasilar dependent atelectasis are seen. Heart: Heart size is normal, trace pericardial effusion is noted. ABDOMEN: Liver: Unremarkable. Gallbladder: Gallbladder is surgically absent. Biliary ducts: Unremarkable. Pancreas: Pancreas is atrophic in appearance. Spleen: Unremarkable. Adrenal Glands: Unremarkable. Kidneys and Ureters: Multiple left renal collecting system stones are seen unchanged from prior study. Relatively atrophic appearing left kidney compared to the right side. No obstructing stones or hydronephrosis. No hydroureter. Stomach and Bowel: There is no bowel obstruction. No gastric or small bowel wall thickening. Significant fecal stasis throughout the colon is noted. No abnormal colonic wall thickening. No abscess collection. Peritoneum: No significant abnormal intraperitoneal fluid. No free air. Ventral Wall: No hernias. Abdominal Nodes: No retroperitoneal or mesenteric adenopathy by size criteria. Vessels: Aorta and inferior vena cava are normal in size. PELVIS: Pelvic Organs: Unremarkable. Bladder: Unremarkable. Pelvic Nodes: No enlarged lymph nodes. Miscellaneous: No hernias are seen. Bones: No suspicious bony lesions. No acute vertebral body compression fracture. Chronic appearing compression deformities involving T12 through L4 levels with prior vertebral plasty seen. IMPRESSION: 1. Nonobstructing stones in left renal collecting system. Asymmetrically atrophic left kidney. No hydronephrosis or hydroureter. 2. No bowel obstruction or abnormal bowel wall thickening. No abscess collection. No significant free fluid or free air. Moderate constipation. 3. Trace left pleural effusion and bibasilar dependent atelectasis. Trace pericardial effusion. No significant discrepancies from preliminary reading. Dictated by: Jon Braxton M.D. on 03/03/2023 at 8:30 Approved by: Jon Braxton M.D. on 03/03/2023 at 8:34
--- NOTE | 2023-03-03 02:49 | DI.RAD.S_ITS ---
PROCEDURE: XR CHEST 1V INDICATIONS: leukocytosis TECHNIQUE: One view of the chest was acquired. COMPARISON: [facility], CR, XR CHEST 1V, 09/20/2022, 1:36. FINDINGS: Surgical changes and devices: Prior vertebral plasty in lumbar spine are seen. Lungs and pleura: Lungs are clear. No pleural effusions or pneumothorax. Mediastinum: Mediastinal contours appear normal. Heart size is enlarged. Bones and chest wall: No suspicious bony lesions. Overlying soft tissues appear unremarkable. IMPRESSION: No acute cardiopulmonary pathology. Dictated by: Jon Braxton M.D. on 03/03/2023 at 8:27 Approved by: Jon Braxton M.D. on 03/03/2023 at 8:28
[2023-03-03] MEDS: SODIUM CHLORIDE 0.9% 1,000 ML 1000 ML IV (03:00)
[2023-03-03] MEDS: HYDROMORPHONE 1 MG INJ IV ×5 (03:02→18:03)
[2023-03-03 03:20] LABS: Procalcitonin 4.68 ng/mL (<0.5)
[2023-03-03] MEDS: PIPERACILLIN/TAZO 4.5 GM in SODIUM CHLORIDE 0.9% 100 ML IV (04:00)
--- NOTE | 2023-03-03 06:44 | DI.CT.S_ITS ---
PROCEDURE: CT LE LT W CON INDICATIONS: L leg pain (thigh to knee), hx psoas abscess 2020, high wbc TECHNIQUE: After the administration of intravenous contrast, 3 mm axial sections acquired of the left lower extremity from the level of left acetabular roof to just below left knee joint, with coronal and sagittal reformats. COMPARISON: [facility], CT, CT LE LT WO CON, 10/05/2019, 14:08. FINDINGS: Image quality: Excellent. Bones: Left hip and left knee joint osteoarthritic changes are seen. There is no acute fracture or dislocation. No evidence of avascular necrosis of femoral head. No suspicious bony lesions are seen. Intramedullary medardo in visualized proximal tibia is seen. No gross hardware loosening or failure. No cortical erosion or abnormal periosteal reaction is noted. Soft tissues: There is small left hip joint effusion. No discrete drainable peripherally enhancing abscess collection is noted. No abnormal intramuscular enhancement. Markedly thickened distal quadriceps tendon at its proximal patellar insertion is seen suggestive of moderate intrasubstance partial-thickness tear. No gross full-thickness quadriceps tendon rupture. The patellar tendon is intact. IMPRESSION: 1. Small left hip joint effusion. No calcified intra-articular loose body. No peripherally enhancing abscess collection. No abnormal intramuscular enhancement. 2. Thickened distal quadriceps tendon with heterogeneous enhancement suggestive of moderate grade partial-thickness tear. No full-thickness quadriceps tendon rupture. 3. Mild to moderate left hip and left knee joint osteoarthritis. No fracture or dislocation. No CT evidence of osteomyelitis. No suspicious bony lesions. Dictated by: Jon Braxton M.D. on 03/03/2023 at 8:39 Approved by: Jon Braxton M.D. on 03/03/2023 at 8:43
--- NOTE | 2023-03-03 07:11 | P.HP_ITS ---
History of Present Illness History of Present Illness Date Patient Seen: 03/03/23 Time Patient Seen: 06:30 Chief complaint: weakness- LLE pain Narrative: Ms. Leiva is a 72W with PMH CVA, CAD, s/p Vfib arrest, chronic pain, CKD, recurrent UTIs who presents to the hospital left leg pain. She has had a previous episode of a left psoas abscess with discitis in 2020. More recently she has had outside hospital admissions where she did have Vfib arrest and CAD. She has had multiple admissions for sepsis due to urinary source. She has chronic staghorn calculus of her left kidney, and her recent service desk analyst notes that she is being considered as a candidate for left nephrectomy due to recurrent infections. She has been diagnosed UTI on 02/15 from a UA, but urine cu lture resulted as no growth. She has been complaining of a few days of left leg pain. She describes this as being the anterior portion of her thing proximal to the knee to just below the hip. It does not seem to involve the joint per her report. She denies urinary symptoms. No nausea, vomiting, diarrhea. No cough or shortness of breath. No fevers/chills. No headache or neck pain. She was confused when she presented to the hospital. In the ED workup was done, vitals notable for temp afebrile, heart rate 120s, respiratory rate 20s, blood pressure 150s/70s. Sats 100% on room air. Labs reviewed by me and notable for WBC 27.2, hgb 11, plts 450. Na 134, co2 16. BUN 25, creatinine 1.33. UA with 1-5 wbcs, trace leuk esterase. Lactate 1.1, procal 4.68. Chest xray with no acute process. CT abdomen/pelvis with some fluid in pericolic gutter of uncertain significance. Femur xray with no acute process. She was ordered for antibiotics and admitted for further treatment. [facility] Medical History Acute [place] Anxiety Arthritis C. difficile colitis Chronic kidney disease Chronic pain Closed left clavicular fracture Colitis Compression fracture of L1 vertebra (~07/2019) COPD (chronic obstructive pulmonary disease) CVA (cerebral vascular accident) Depression Diarrhea Displaced comminuted fracture of shaft of tibia DJD (degenerative joint disease) Fibromyalgia Fracture, tibia GI bleeding History of osteomyelitis History of recurrent UTIs HLD (hyperlipidemia) Hypertension Hypertension Insomnia Iron (Fe) deficiency anemia Left foot drop Left rib fracture Lumbar compression fracture (02/26/19) Migraines Multiple fractures Nephrolithiasis Neuropathy Numbness and tingling Osteoporosis Osteoporosis Peptic ulcer disease Pre-diabetes Radius fracture (08/30/17) Recurrent UTI Renal disease Septic shock Stage 3 chronic kidney disease Surgical History H/O: hysterectomy History of surgery Hx of appendectomy Hx of cholecystectomy Hx of elbow surgery Hx of kyphoplasty (~2013) Hx of kyphoplasty (04/28/19) Hx of kyphoplasty (07/28/19) Hx of tonsillectomy Status post epidural steroid injection (03/25/19) Family History Mother No known health problems COPD (chronic obstructive pulmonary disease) Father No known health problems Social History household members: significant other and children Smoking Status: Former smoker alcohol intake: current Meds Home Medications and Allergies Home Medications Medication Instructions Recorded Confirmed Type apixaban 5 mg tablet (Eliquis) 5 mg PO BID #180 tabs 08/21/22 02/15/23 Rx bisacodyl 10 mg rectal suppository 10 mg MS DAILY PRN Constipation 08/21/22 02/15/23 History (Dulcolax (bisacodyl)) polyethylene glycol 3350 17 17 g PO DAILY 08/21/22 02/15/23 History gram/dose oral powder (Miralax) pantoprazole 40 mg tablet,delayed 40 mg PO DAILY #90 tabs 09/14/22 02/15/23 Rx release (Protonix) aspirin 81 mg tablet,delayed 81 mg PO DAILY #90 tabs 12/04/22 02/15/23 Rx release (Adult Aspirin Regimen) atorvastatin 40 mg tablet 40 mg PO DAILY #90 tabs 12/04/22 02/15/23 Rx alendronate 70 mg tablet (Fosamax) 70 mg PO QWEEK #12 tabs 01/17/23 02/15/23 Rx carisoprodol 350 mg tablet 350 mg PO TID #60 tabs 02/15/23 02/15/23 Rx ciprofloxacin HCl 500 mg tablet 500 mg PO BID #20 tabs 02/15/23 02/15/23 Rx diclofenac sodium 1 % topical gel 2 g topical QID PRN 02/15/23 02/15/23 History gabapentin 300 mg capsule See Rx Instructions PO .COMPLEX 02/15/23 02/15/23 History metoprolol tartrate 25 mg tablet 12.5 mg PO BID #90 tabs 02/15/23 02/15/23 Rx sodium bicarbonate 650 mg tablet 1,300 mg PO BID 02/15/23 02/15/23 History oxycodone 10 mg tablet 10 mg PO TID PRN pain #90 tabs 02/26/23 Rx Allergies Allergy/AdvReac Type Severity Reaction Status Date / Time furosemide [From Lasix] Allergy Intermediate Rash Verified 02/15/23 11:09 tramadol [TRAMADOL] Allergy Unknown Verified 02/15/23 11:09 amitriptyline [AMITRIPTYLINE] AdvReac Intermediate Confusion Verified 02/15/23 11:09 Review of Systems Review of Systems Narrative: 14 systems reviewed and negative aside from what is noted in HPI Exam Vital Signs (past 8 hours): - 03/02/23 23:30 03/02/23 23:43 03/02/23 23:43 Pulse Rate 115 H 119 H Respiratory Rate 14 17 Blood Pressure 121/69 Pulse Oximetry 98 95 03/03/23 00:00 03/03/23 00:00 03/03/23 00:30 Pulse Rate 113 H Respiratory Rate 18 Blood Pressure 105/63 106/57 L Pulse Oximetry 97 03/03/23 00:30 03/03/23 01:00 03/03/23 01:00 Pulse Rate 110 H 108 H Respiratory Rate 10 L 12 Blood Pressure 108/56 L Pulse Oximetry 97 96 03/03/23 01:30 03/03/23 01:30 03/03/23 02:00 Pulse Rate 109 H Respiratory Rate 12 Blood Pressure 118/60 137/68 Pulse Oximetry 97 03/03/23 02:00 03/03/23 02:30 03/03/23 02:30 Pulse Rate 108 H 112 H Respiratory Rate 11 L 11 L Blood Pressure 146/75 H Pulse Oximetry 98 98 03/03/23 03:00 03/03/23 03:00 Pulse Rate 111 H Respiratory Rate 27 H Blood Pressure 143/71 H Pulse Oximetry 99 Oxygen Delivery Method Room Air Narrative Exam Narrative: GEN: no acute distress CV: tachycardic, no murmurs PULM: clear bilaterally ABD: soft, nontender, nondistended, no organomegaly EXT: warm and well perfused, no fluctuance noted, no pain to palpation, no erythema or warmth noted on skin, normal passive range of motion of knee and hip joint on left NEURL: awake, alert, oriented, no focal deficits Objective Labs 03/02/23 23:45 03/02/23 23:45 Labs: Laboratory Results - last 24 hr 03/02/23 03/02/23 03/02/23 22:40 23:45 23:45 WBC 27.2 H RBC 3.32 L Hgb 11.0 L Hct 33.8 L MCV 101.8 H MCH 33.3 MCHC 32.7 RDW 15.1 H Plt Count 450 H Neut % (Auto) Not Reportable Lymph % (Auto) Not Reportable [place] % (Auto) Not Reportable Eos % (Auto) Not Reportable Baso % (Auto) Not Reportable Lymph # (Auto) Not Reportable [place] # (Auto) Not Reportable Baso # (Auto) Not Reportable Total Counted 100 Seg Neutrophils % 87.0 H Band Neutrophils % 3.0 Lymphocytes % (Manual) 7.0 L Monocytes % (Manual) 2.0 Basophils % (Manual) 1.0 Neutrophils # (Manual) 74007 H Toxic Granulation Present H Platelet Estimate Increased on smear RBC Morphology See below Anisocytosis 1+ H Macrocytosis 1+ H Sodium 134 L Potassium 4.8 Chloride 103 Carbon Dioxide 16 L BUN 25 H Creatinine 1.33 H Estimated GFR 43 L BUN/Creatinine Ratio 18.8 Glucose 91 Lactate Calcium 8.7 Total Bilirubin 0.7 AST 83 H ALT 54 H Alkaline Phosphatase 320 H Total Protein 7.8 Albumin 4.0 Globulin 3.8 Albumin/Globulin Ratio 1.1 Procalcitonin Urine Color Yellow Urine Appearance Clear Urine pH 6.0 Ur Specific [place] 1.010 Urine Protein Trace H Urine Glucose (UA) Negative Urine Ketones 1+ H Urine Occult Blood Trace-intact Urine Nitrate Negative Urine Bilirubin 1+ H Ur Bilirubin Confirm Negative Urine Urobilinogen 0.2 Ur Leukocyte Esterase Trace H Urine RBC None seen Urine WBC 1-5/hpf Ur Squamous Epith Cells None seen Urine Bacteria None seen Ur Culture Indicated? Specimen cultured 03/02/23 03/02/23 23:45 23:45 WBC RBC Hgb Hct MCV MCH MCHC RDW Plt Count Neut % (Auto) Lymph % (Auto) [place] % (Auto) Eos % (Auto) Baso % (Auto) Lymph # (Auto) [place] # (Auto) Baso # (Auto) Total Counted Seg Neutrophils % Band Neutrophils % Lymphocytes % (Manual) Monocytes % (Manual) Basophils % (Manual) Neutrophils # (Manual) Toxic Granulation Platelet Estimate RBC Morphology Anisocytosis Macrocytosis Sodium Potassium Chloride Carbon Dioxide BUN Creatinine Estimated GFR BUN/Creatinine Ratio Glucose Lactate 1.1 Calcium Total Bilirubin AST ALT Alkaline Phosphatase Total Protein Albumin Globulin Albumin/Globulin Ratio Procalcitonin 4.68 H Urine Color Urine Appearance Urine pH Ur Specific [place] Urine Protein Urine Glucose (UA) Urine Ketones Urine Occult Blood Urine Nitrate Urine Bilirubin Ur Bilirubin Confirm Urine Urobilinogen Ur Leukocyte Esterase Urine RBC Urine WBC Ur Squamous Epith Cells Urine Bacteria Ur Culture Indicated? Assessment & Plan Assessment & Plan narrative: 1. SIRS positive, infectious source unclear -patient with tachycardia, WBC 27, procal elevated -suspect source is infectious but etiology unclear -has had recurrent UTIs previously, but currently minimal urine symptoms and UA with low WBCs and leuk esterase -urine culture and blood culture pending -CT abdomen/pelvis with no definite source -due to leg pain plan for CT left lower extremity -consider possible joint aspiration pending CT result -no back pain so doubt recurrence of discitis -no respiratory symptoms, no meningeal symptoms so doubt pneumonia, or meningitis 2. Acute encephalopathy, improving -suspect secondary to medication effect and possibly infection -continue to treat infection as above -careful with medications that could cause encephalopathy 3. CHFpEF -not in exacerbation currently 4. CKD stage 3 -trend creatinine daily I have discussed plan and obtained history from the patient. I have discussed plan of care with ED physician and bedside nurse. I have reviewed labs, imaging, previous medical records CODE: Full Proxy: Francis Leiva, son
[2023-03-03] MEDS: SODIUM CHLORIDE 0.9% 1,000 ML 100 ML IV ×2 (09:10→20:34)
[2023-03-03] MEDS: VANCOMYCIN 750 MG/150 ML PIGGYBACK 150 MG IV (09:11)
--- NOTE | 2023-03-03 09:15 | PM.PN.1 ---
Subjective Subjective Interval history: Patient remains complaining of left thigh pain. States it has been ongoing for several months but getting worse. CT of the left lower extremity has been completed. Exam Vital Signs (past 8 hours): - 03/03/23 01:30 03/03/23 01:30 03/03/23 02:00 Temperature Pulse Rate 109 H Respiratory Rate 12 Blood Pressure 118/60 137/68 Pulse Oximetry 97 Oxygen Flow Rate 03/03/23 02:00 03/03/23 02:30 03/03/23 02:30 Temperature Pulse Rate 108 H 112 H Respiratory Rate 11 L 11 L Blood Pressure 146/75 H Pulse Oximetry 98 98 Oxygen Flow Rate 03/03/23 03:00 03/03/23 03:00 03/03/23 07:51 Temperature Pulse Rate 111 H 104 H Respiratory Rate 27 H 17 Blood Pressure 143/71 H Pulse Oximetry 99 100 Oxygen Flow Rate 03/03/23 08:00 03/03/23 08:00 03/03/23 08:34 Temperature 97.8 F Pulse Rate 100 H 115 H Respiratory Rate 15 18 Blood Pressure 118/59 L 140/66 Pulse Oximetry 98 97 Oxygen Flow Rate 0 Oxygen Delivery Method Room Air Oxygen Flow Rate 0 Narrative Exam Narrative: General: No acute medical distress other than pain. MSK: Tenderness left distal thigh anteriorly and in the thigh musculature slightly as well Neuro: Normal sensation of the left lower extremity Objective Labs 03/02/23 23:45 03/02/23 23:45 Labs: Laboratory Results - last 24 hr 03/02/23 03/02/23 03/02/23 22:40 23:45 23:45 WBC 27.2 H RBC 3.32 L Hgb 11.0 L Hct 33.8 L MCV 101.8 H MCH 33.3 MCHC 32.7 RDW 15.1 H Plt Count 450 H Neut % (Auto) Not Reportable Lymph % (Auto) Not Reportable [place] % (Auto) Not Reportable Eos % (Auto) Not Reportable Baso % (Auto) Not Reportable Lymph # (Auto) Not Reportable [place] # (Auto) Not Reportable Baso # (Auto) Not Reportable Total Counted 100 Seg Neutrophils % 87.0 H Band Neutrophils % 3.0 Lymphocytes % (Manual) 7.0 L Monocytes % (Manual) 2.0 Basophils % (Manual) 1.0 Neutrophils # (Manual) 94031 H Toxic Granulation Present H Platelet Estimate Increased on smear RBC Morphology See below Anisocytosis 1+ H Macrocytosis 1+ H Sodium 134 L Potassium 4.8 Chloride 103 Carbon Dioxide 16 L BUN 25 H Creatinine 1.33 H Estimated GFR 43 L BUN/Creatinine Ratio 18.8 Glucose 91 Lactate Calcium 8.7 Total Bilirubin 0.7 AST 83 H ALT 54 H Alkaline Phosphatase 320 H Total Protein 7.8 Albumin 4.0 Globulin 3.8 Albumin/Globulin Ratio 1.1 Procalcitonin Urine Color Yellow Urine Appearance Clear Urine pH 6.0 Ur Specific [place] 1.010 Urine Protein Trace H Urine Glucose (UA) Negative Urine Ketones 1+ H Urine Occult Blood Trace-intact Urine Nitrate Negative Urine Bilirubin 1+ H Ur Bilirubin Confirm Negative Urine Urobilinogen 0.2 Ur Leukocyte Esterase Trace H Urine RBC None seen Urine WBC 1-5/hpf Ur Squamous Epith Cells None seen Urine Bacteria None seen Ur Culture Indicated? Specimen cultured 03/02/23 03/02/23 23:45 23:45 WBC RBC Hgb Hct MCV MCH MCHC RDW Plt Count Neut % (Auto) Lymph % (Auto) [place] % (Auto) Eos % (Auto) Baso % (Auto) Lymph # (Auto) [place] # (Auto) Baso # (Auto) Total Counted Seg Neutrophils % Band Neutrophils % Lymphocytes % (Manual) Monocytes % (Manual) Basophils % (Manual) Neutrophils # (Manual) Toxic Granulation Platelet Estimate RBC Morphology Anisocytosis Macrocytosis Sodium Potassium Chloride Carbon Dioxide BUN Creatinine Estimated GFR BUN/Creatinine Ratio Glucose Lactate 1.1 Calcium Total Bilirubin AST ALT Alkaline Phosphatase Total Protein Albumin Globulin Albumin/Globulin Ratio Procalcitonin 4.68 H Urine Color Urine Appearance Urine pH Ur Specific [place] Urine Protein Urine Glucose (UA) Urine Ketones Urine Occult Blood Urine Nitrate Urine Bilirubin Ur Bilirubin Confirm Urine Urobilinogen Ur Leukocyte Esterase Urine RBC Urine WBC Ur Squamous Epith Cells Urine Bacteria Ur Culture Indicated? [facility] Medical History Acute [place] Anxiety Arthritis C. difficile colitis Chronic kidney disease Chronic pain Closed left clavicular fracture Colitis Compression fracture of L1 vertebra (~07/2019) COPD (chronic obstructive pulmonary disease) CVA (cerebral vascular accident) Depression Diarrhea Displaced comminuted fracture of shaft of tibia DJD (degenerative joint disease) Fibromyalgia Fracture, tibia GI bleeding History of osteomyelitis History of recurrent UTIs HLD (hyperlipidemia) Hypertension Hypertension Insomnia Iron (Fe) deficiency anemia Left foot drop Left rib fracture Lumbar compression fracture (02/26/19) Migraines Multiple fractures Nephrolithiasis Neuropathy Numbness and tingling Osteoporosis Osteoporosis Peptic ulcer disease Pre-diabetes Radius fracture (08/30/17) Recurrent UTI Renal disease Septic shock Stage 3 chronic kidney disease Surgical History H/O: hysterectomy History of surgery Hx of appendectomy Hx of cholecystectomy Hx of elbow surgery Hx of kyphoplasty () Hx of kyphoplasty (04/28/19) Hx of kyphoplasty (07/28/19) Hx of tonsillectomy Status post epidural steroid injection (03/25/19) Family History Mother No known health problems COPD (chronic obstructive pulmonary disease) Father No known health problems Social History household members: significant other and children Smoking Status: Former smoker alcohol intake: current Assessment & Plan Assessment & Plan narrative: 1. CT of the left lower extremity shows findings of?Thickened distal quadriceps tendon with heterogeneous enhancement suggestive of moderate grade partial-thickness tear. 2. Persistent pain left distal thigh and left thigh musculature in general. 3. Consult to Dr. Mcclure orthopedic surgeon. Message left for her.
--- NOTE | 2023-03-03 10:47 | PC.NURSE ---
Addendum entered by Rachana Hearn R.N. 03/03/23 17:29: Patient given iv dilaudid earlier and has been comfortable since. She denies pain and is resting comfortably. Addendum entered by Rachana Hearn R.N. 03/03/23 10:59: Patients daughter just called and states that her brother is the POA, but that she would like to be notified of changes with patient. She states that she has distanced herself from patient as she has had problems with pain medications her whole life. She is aware that patient can be cranky at times. Daughter mainly called to check on patients status. Patient is resting now. Original Note: 0830- Patient to room around 0830. She was transferred to the bed via slider board and staff. Rolled to her side to get blankets from under her and she was yelling out not to roll her and cursing. Explained to patient that we had to get soiled linen from under neath her. She then calmed down. Given dilaudid down in ER, this has been helpful to patient. Her vanco just finished and she will start on zosyn and her po meds will be given when she wakes up. Resting comfortably and vss.
--- NOTE | 2023-03-03 11:47 | PM.CN ---
History of Present Illness Consult details Date Patient Seen: 03/03/23 Time Patient Seen: 12:00 Chief complaint: weakness- LLE pain Reason for consult: Question partial quadriceps tear, left? Requesting provider: Gallo Oconnor Narrative: The patient is a 72-year-old female with medical medical problems presented with left lower extremity pain level of the hip to above the knee times several days. She was found have sirs criteria with an elevated white count and admitted to Medicine. She has a subacute history of a periprosthetic tibia fracture and had intramedullary tibial nail on the left side done at [facility] in the spring this was a suprapatellar nail so the distal quadriceps possible partial tear is likely just scarring from the entry point from her tibial medardo which was placed through the quadriceps tendon in the suprapatellar technique. She also has a history of multiple ankle surgeries and painful hardware. And has a remote history of thoracic and lumbar back pain and per the chart notes a history of a psoas abscess in the past as well as multiple renal conditions. She reports thigh pain and pain with hip extension and flexion. She sits with the hip flexed and the bed when I evaluate her today. Of note I did see her for a separate issue in my clinic several weeks ago and she was not having these symptoms but she is been very low activity since her tibia fracture and does not really walked Meds Home Medications and Allergies Home Medications Medication Instructions Recorded Confirmed Type bisacodyl 10 mg rectal suppository 10 mg MI DAILY PRN Constipation 08/21/22 03/03/23 History (Dulcolax (bisacodyl)) polyethylene glycol 3350 17 17 g PO DAILY 08/21/22 03/03/23 History gram/dose oral powder (Miralax) pantoprazole 40 mg tablet,delayed 40 mg PO DAILY #90 tabs 09/14/22 03/03/23 Rx release (Protonix) aspirin 81 mg tablet,delayed 81 mg PO DAILY #90 tabs 12/04/22 03/03/23 Rx release (Adult Aspirin Regimen) atorvastatin 40 mg tablet 40 mg PO DAILY #90 tabs 12/04/22 03/03/23 Rx alendronate 70 mg tablet (Fosamax) 70 mg PO QWEEK #12 tabs 01/17/23 03/03/23 Rx carisoprodol 350 mg tablet 350 mg PO TID #60 tabs 02/15/23 03/03/23 Rx diclofenac sodium 1 % topical gel 2 g topical QID PRN Rash 02/15/23 03/03/23 History gabapentin 300 mg capsule 900 mg PO BEDTIME 02/15/23 03/03/23 History metoprolol tartrate 25 mg tablet 12.5 mg PO BID #90 tabs 02/15/23 03/03/23 Rx oxycodone 10 mg tablet 10 mg PO TID PRN pain #90 tabs 02/26/23 03/03/23 Rx gabapentin 300 mg capsule 300 mg PO BID 03/03/23 03/03/23 History methocarbamol 500 mg tablet 500 mg PO BID 03/03/23 03/03/23 History Allergies Allergy/AdvReac Type Severity Reaction Status Date / Time furosemide [From Lasix] Allergy Intermediate Rash Verified 02/15/23 11:09 tramadol [TRAMADOL] Allergy Unknown Verified 02/15/23 11:09 amitriptyline [AMITRIPTYLINE] AdvReac Intermediate Confusion Verified 02/15/23 11:09 Review of Systems Review of Systems ROS: Yes All systems reviewed with the patient and are negative except as otherwise documented Exam Vital Signs (past 8 hours): - 03/03/23 07:51 03/03/23 08:00 03/03/23 08:00 Temperature Pulse Rate 104 H 100 H Respiratory Rate 17 15 Blood Pressure 118/59 L Pulse Oximetry 100 98 Oxygen Flow Rate 03/03/23 08:34 03/03/23 10:52 Temperature 97.8 F 97.9 F Pulse Rate 115 H 104 H Respiratory Rate 18 18 Blood Pressure 140/66 142/74 H Pulse Oximetry 97 99 Oxygen Flow Rate 0 0 Oxygen Delivery Method Room Air Oxygen Flow Rate 0 Narrative Exam Narrative: Alert oriented moderate distress. Concerned about her pain concerned about pain control and asked not to be transferred without medications. Sitting in bed with her left hip and knee flexed. States she has pain from area just above her suprapatellar scar towards her anterior hip and thigh. Her hip and thigh are soft. Her calf is soft. Her surgical scars are well healed there is no erythema there is no fluctuance there is no effusion. She has a lot of pain with attempted hip flexion extension she does allow me to passively extend her hip and her knee straight but has more pain with this and prefers to have the hip and knee flexed. Sensation is grossly intact to light touch. Palpable pulses. Objective Imaging CT left lower extremity: My impression: CT left lower extremity demonstrates no obvious fractures. No abnormal collections or enhancement. The area of the 2nd distal quadriceps is consistent with the patient's previous site of surgery for entry for her suprapatellar tibial nail. Partial visualization tibial medardo. Radiologist's impression: IMPRESSION:?? 1.?Small?left?hip?joint?effusion.??No?calcified?intra-articular?loose?body.??No?peripherally?enhancing?abscess?collection.??No?abnormal?intramuscular?enhancement. 2.?Thickened?distal?quadriceps?tendon?with?heterogeneous?enhancement?suggestive?of?moderate?grade?partial-thickness?tear.??No?full-thickness?quadriceps?tendon?rupture. 3.??Mild?to?moderate?left?hip?and?left?knee?joint?osteoarthritis.??No?fracture?or?dislocation.??No?CT?evidence?of?osteomyelitis.??No?suspicious?bony?lesions.?? Dictated?by:?Jon?Fox?Pamela?on?03/03/2023?at?8:39 CT scan - pelvis: My impression: No obvious abscess. Multilevel degenerative lumbar disease. Radiologist's impression: IMPRESSION:?? 1.??Nonobstructing?stones?in?left?renal?collecting?system.??Asymmetrically?atrophic?left?kidney.??No?hydronephrosis?or?hydroureter. 2.?No?bowel?obstruction?or?abnormal?bowel?wall?thickening.??No?abscess?collection.??No?significant?free?fluid?or?free?air.??Moderate?constipation. 3.?Trace?left?pleural?effusion?and?bibasilar?dependent?atelectasis.??Trace?pericardial?effusion. No?significant?discrepancies?from?preliminary?reading.?? Dictated?by:?Jon?Gil Braxton?on?03/03/2023?at?8:30? Labs 03/02/23 23:45 03/02/23 23:45 Labs: Laboratory Results - last 24 hr 03/02/23 03/02/23 03/02/23 22:40 23:45 23:45 WBC 27.2 H RBC 3.32 L Hgb 11.0 L Hct 33.8 L MCV 101.8 H MCH 33.3 MCHC 32.7 RDW 15.1 H Plt Count 450 H Neut % (Auto) Not Reportable Lymph % (Auto) Not Reportable [place] % (Auto) Not Reportable Eos % (Auto) Not Reportable Baso % (Auto) Not Reportable Lymph # (Auto) Not Reportable [place] # (Auto) Not Reportable Baso # (Auto) Not Reportable Total Counted 100 Seg Neutrophils % 87.0 H Band Neutrophils % 3.0 Lymphocytes % (Manual) 7.0 L Monocytes % (Manual) 2.0 Basophils % (Manual) 1.0 Neutrophils # (Manual) 08677 H Toxic Granulation Present H Platelet Estimate Increased on smear RBC Morphology See below Anisocytosis 1+ H Macrocytosis 1+ H Sodium 134 L Potassium 4.8 Chloride 103 Carbon Dioxide 16 L BUN 25 H Creatinine 1.33 H Estimated GFR 43 L BUN/Creatinine Ratio 18.8 Glucose 91 Lactate Calcium 8.7 Total Bilirubin 0.7 AST 83 H ALT 54 H Alkaline Phosphatase 320 H Total Protein 7.8 Albumin 4.0 Globulin 3.8 Albumin/Globulin Ratio 1.1 Procalcitonin Urine Color Yellow Urine Appearance Clear Urine pH 6.0 Ur Specific [place] 1.010 Urine Protein Trace H Urine Glucose (UA) Negative Urine Ketones 1+ H Urine Occult Blood Trace-intact Urine Nitrate Negative Urine Bilirubin 1+ H Ur Bilirubin Confirm Negative Urine Urobilinogen 0.2 Ur Leukocyte Esterase Trace H Urine RBC None seen Urine WBC 1-5/hpf Ur Squamous Epith Cells None seen Urine Bacteria None seen Ur Culture Indicated? Specimen cultured 03/02/23 03/02/23 23:45 23:45 WBC RBC Hgb Hct MCV MCH MCHC RDW Plt Count Neut % (Auto) Lymph % (Auto) [place] % (Auto) Eos % (Auto) Baso % (Auto) Lymph # (Auto) [place] # (Auto) Baso # (Auto) Total Counted Seg Neutrophils % Band Neutrophils % Lymphocytes % (Manual) Monocytes % (Manual) Basophils % (Manual) Neutrophils # (Manual) Toxic Granulation Platelet Estimate RBC Morphology Anisocytosis Macrocytosis Sodium Potassium Chloride Carbon Dioxide BUN Creatinine Estimated GFR BUN/Creatinine Ratio Glucose Lactate 1.1 Calcium Total Bilirubin AST ALT Alkaline Phosphatase Total Protein Albumin Globulin Albumin/Globulin Ratio Procalcitonin 4.68 H Urine Color Urine Appearance Urine pH Ur Specific [place] Urine Protein Urine Glucose (UA) Urine Ketones Urine Occult Blood Urine Nitrate Urine Bilirubin Ur Bilirubin Confirm Urine Urobilinogen Ur Leukocyte Esterase Urine RBC Urine WBC Ur Squamous Epith Cells Urine Bacteria Ur Culture Indicated? [facility] Medical History Acute CO Anxiety Arthritis C. difficile colitis Chronic kidney disease Chronic pain Closed left clavicular fracture Colitis Compression fracture of L1 vertebra (~07/2019) COPD (chronic obstructive pulmonary disease) CVA (cerebral vascular accident) Depression Diarrhea Displaced comminuted fracture of shaft of tibia DJD (degenerative joint disease) Fibromyalgia Fracture, tibia GI bleeding History of osteomyelitis History of recurrent UTIs HLD (hyperlipidemia) Hypertension Hypertension Insomnia Iron (Fe) deficiency anemia Left foot drop Left rib fracture Lumbar compression fracture (02/26/19) Migraines Multiple fractures Nephrolithiasis Neuropathy Numbness and tingling Osteoporosis Osteoporosis Peptic ulcer disease Pre-diabetes Radius fracture (08/30/17) Recurrent UTI Renal disease Septic shock Stage 3 chronic kidney disease Surgical History H/O: hysterectomy History of surgery Hx of appendectomy Hx of cholecystectomy Hx of elbow surgery Hx of kyphoplasty (~2013) Hx of kyphoplasty (04/28/19) Hx of kyphoplasty (07/28/19) Hx of tonsillectomy Status post epidural steroid injection (03/25/19) Family History Mother No known health problems COPD (chronic obstructive pulmonary disease) Father No known health problems Social History household members: significant other and children Tobacco & Substance Use Smoking Status: Former smoker alcohol intake: current Assessment & Plan Assessment and plan (1) Acute pain of left lower extremity: Status: Acute (2) Leukocytosis: Qualifiers: Leukocytosis type: unspecified Qualified Code(s): D72.829 - Elevated white blood cell count, unspecified Status: Acute Plan I was called to consult on a partial thickness quadriceps tear or distal quadriceps tendinosis however this is just consistent with the postoperative changes she would have had from a suprapatellar intramedullary nail as the entry site is through the distal quadriceps tendon. Her incision site is well healed there no signs of infection no knee effusion. No swelling of the thigh. Assessment & Plan narrative: Patient has leukocytosis and severe left thigh pain. Do not see any obvious site of infection. Her previous surgical incision areas are pristine. She does not have any significant swelling. She is no lesions or fluctuance. She does have significant lumbar disease this is chronic. May have a radicular component of pain. I do not have a current source for her systemic symptoms recommend continued medicine workup. Her knee is benign. The consult question of possible partial distal quadriceps tear is just sequelae of her suprapatellar tibial nail this was the entry site for the medardo that was placed into her tibia and her surgery last spring at [facility] and is a incidental finding on the imaging that she had today. Time Spent With Patient Time with patient: less than 30 minutes
[2023-03-03] MEDS: PIPERACILLIN/TAZO 3.375 GM in SODIUM CHLORIDE 0.9% 100 ML IV ×2 (12:32→20:31)
[2023-03-03] MEDS: ASPIRIN EC 81 MG TABLET PO (12:32)
[2023-03-03] MEDS: METOPROLOL IR 25 MG TABLET 12.5 MG PO ×2 (12:32→20:36)
--- NOTE | 2023-03-03 13:11 | CM.DANOTE ---
Addendum entered by Maryann Payton R.N. 03/03/23 15:21: Called back the facilities that referrals were faxed to. Left a message with Marcia at [facility]. Spoke to Namrata at [facility], she does have beds, is reviewing patient. Should know if she can accept by tomorrow. She stated that it's good that she has Medicaid as secondary, since [employer] only pays for certain days. Spoke to Hue at [facility], has also received referral, and has beds, and will also review. Would follow up with Namrata first, since one facility can auth at a time. Original Note: DCP: Case received, EMR reviewed and met with patient. Introduced self and role. Was able to get limited information from patient due to her pain levels. Completed DCP assessment with information currently available. Patient is a 72 year old female who admitted early this morning to the care of the hospitalist team. PCP: Dr. Powers. Payer: confirmed: [facility]. Patient came to the hospital via ambulance secondary to complaints of left leg pain. Patient has history of cardiovascular disease, chronic pain syndrome. Notes indicate that patient has a caregiver at home, medics stated, not medically knowledgable about her medical care. Patient was recently diagnoses with UTI, had not been taking her antibiotics according to notes. CT was performed to patient's left lower extremity, noted to have a moderate grade partial tear to her quadricep tendon. There is a consult to Dr. Carpio. Attempted to get some information from patient, complaining of severe pain, given Dilaudid. Confirmed that she resides in [place], son, Francis, no longer lives with her, she has a caregiver, undetermined if it is KIZZY, or how many hours she receives. She gave permission to contact son, JUVENTINO Blanco, with any further questions, as well as daughter. Asked patient if she would be willing to go to a [facility] facility, most likely in [facility], since she has [facility], and patient is a two person just to get her positioned in bed. She will also need P.T. orders. Patient stated, she would be willing to go if needed. Will plan on sending referrals over to [facility] and [facility]. Will still need P.T. notes. Have a call out to son for additional information. P: DCP to continue to follow. Will send out referrals to [facility], [facility], and [facility]. It is also noted that patient has had [facility] in the past. Awaiting call back from son. Maryann Payton RN/Receptionist Nurse Discharge Planning/Care Management CM Discharge Assessment Start: 03/03/23 13:06 Freq: Status: Active Protocol: Document 03/03/23 13:06 (Rec: 03/03/23 13:10 [id number]) Discharge Planning Assessment Assigned Wet Process Miller Maryann Payton RN/Receptionist Nurse Advance Directives? Yes Advance Directives on File No History Provided By Patient,Family Member,Medical Record Prior Living Arrangements House Household Members caregiver Comment Possibly KIZZY caregiver Type of transporation used prior to Relies on Others admit Independent with ADL's Yes Is patient alert and oriented? Yes Needs Assistance With Home Chores / Shopping Caregiver for Another No DME Already Rented / Owned FWW / Walker Comment Son per historian reports that pt uses a walker at home Patient/Family Preference Snf Facility Barriers to Discharge Yes Comment Difficult to get accurate informaton from patient secondary to pain, is currently a slide board transfer. Have a message out to sonFrancis, per patient's permision Discharge Plan Snf Facility Transportation Arrangement Facility Referrals Initiated Snf Additional Comment Will send referrals over to [facility], [facility], possibly [facility], as they all take her insurance. She will need P.T. orders in order for auth Whiteboard Updated in Patient Room with Yes name and ext. # of Wet Process Miller Review Status In Process Next Review Type Continued Stay Review
[2023-03-03] MEDS: OXYCODONE IR 5 MG TABLET PO (20:34)
[2023-03-03] MEDS: ACETAMINOPHEN 325 MG TABLET 650 MG PO (20:35)
[2023-03-04] MEDS: VANCOMYCIN 750 MG/150 ML PIGGYBACK 150 MG IV ×2 (02:46→21:38)
[2023-03-04] MEDS: HYDROMORPHONE 1 MG INJ IV ×3 (02:47→15:30)
[2023-03-04 03:13] VITALS: BP 107/63; PULSE 70; RESP 16; TEMP 36.2; O2SAT 98
[2023-03-04] MEDS: PIPERACILLIN/TAZO 3.375 GM in SODIUM CHLORIDE 0.9% 100 ML IV ×3 (04:07→20:42)
[2023-03-04 08:14] LABS: Add Manual Diff / Slide Review NO; Basophils Absolute Auto 100 /uL (0-100); Basophils Percent Auto 0.6 % (0-2); Eosinophils Absolute Auto 500 /uL (0-450); Eosinophils Percent Auto 3.3 % (2-4); Hematocrit 26.8 % (36-46); Hemoglobin 8.7 g/dL (12.0-16.0); Lymphocytes Absolute Auto 1700 /uL (1100-4500); Lymphocytes Percent Auto 12.5 % (25-40); Mean Corpuscular HGB Conc 32.6 % (30-36); Mean Corpuscular Hemoglobin 33.7 PG (26-34); Mean Corpuscular Volume 103.2 fL (80-100); Monocytes Absolute Auto 900 /uL (0-900); Monocytes Percent Auto 6.7 % (3-14); Neutrophils Absolute Auto 10700 /uL (1500-7000); Neutrophils Percent Auto 76.9 % (50-75); Platelet Count 369 X10^3/uL (150-400); Red Cell Distribution Width 15.7 % (11.6-14.8); White Blood Cell Count 13.9 X10^3/uL (4.5-11.0)
[2023-03-04 08:28] LABS: BUN Creatinine Ratio 19.1 (6-22); Blood Urea Nitrogen 21 mg/dL (7-17); Carbon Dioxide 10 mmol/L (22-32); Chloride 114 mmol/L (98-107); Estimated Glomerular Filt Rate 54 mL/min (>60); Glucose 46 mg/dL (80-110); Potassium 4.5 mmol/L (3.4-5.1); Sodium 137 mmol/L (137-145)
[2023-03-04 08:31] LABS: HEMOLYSIS 52 (0-50)
[2023-03-04] MEDS: GABAPENTIN 300 MG CAPSULE PO (09:50)
[2023-03-04] MEDS: METOPROLOL IR 25 MG TABLET 12.5 MG PO ×2 (09:50→20:40)
[2023-03-04] MEDS: ENOXAPARIN 30 MG/0.3 ML SYRINGE SUBCUT (09:51)
[2023-03-04] MEDS: PANTOPRAZOLE DR 40 MG TABLET PO (09:52)
[2023-03-04] MEDS: ATORVASTATIN 20 MG TABLET 40 MG PO (09:52)
[2023-03-04] MEDS: carisoprodoL 350 MG TABLET PO ×3 (09:52→20:40)
[2023-03-04] MEDS: ASPIRIN EC 81 MG TABLET PO (09:52)
[2023-03-04] MEDS: polyethylene glycoL 3350 17 GM POWD.PACK PO (09:52)
[2023-03-04] MEDS: SODIUM CHLORIDE 0.9% 1,000 ML 100 ML IV ×2 (09:59→21:39)
[2023-03-04 10:07] VITALS: BP 130/68; PULSE 92; RESP 16; TEMP 36.7; O2SAT 97
--- NOTE | 2023-03-04 10:52 | OT.IP.EVAL ---
Current Diagnoses Elevated white blood cell count, unspecified (03/03/23) Pain in left leg (03/03/23) Past Medical History (Last Reviewed 03/03/23 @ 21:23 by Marilou Carpio MD) Acute ID Anxiety Arthritis C. difficile colitis Chronic kidney disease Chronic pain Closed left clavicular fracture Colitis Compression fracture of L1 vertebra (~07/2019) COPD (chronic obstructive pulmonary disease) CVA (cerebral vascular accident) Depression Diarrhea Displaced comminuted fracture of shaft of tibia DJD (degenerative joint disease) Fibromyalgia Fracture, tibia GI bleeding History of osteomyelitis History of recurrent UTIs HLD (hyperlipidemia) Hypertension Hypertension Insomnia Iron (Fe) deficiency anemia Left foot drop Left rib fracture Lumbar compression fracture (02/26/19) Migraines Multiple fractures Nephrolithiasis Neuropathy Numbness and tingling Osteoporosis Osteoporosis Peptic ulcer disease Pre-diabetes Radius fracture (08/30/17) Recurrent UTI Renal disease Septic shock Stage 3 chronic kidney disease Surgical History (Last Reviewed 03/03/23 @ 21:23 by Marilou Carpio MD) H/O: hysterectomy History of surgery Hx of appendectomy Hx of cholecystectomy Hx of elbow surgery Hx of kyphoplasty (~2013) Hx of kyphoplasty (04/28/19) Hx of kyphoplasty (07/28/19) Hx of tonsillectomy Status post epidural steroid injection (03/25/19) Occupational Therapy Inpatient Evaluation/Re-Eval M1 PT/OT-IP Prior Functional Status Start: 03/04/23 11:18 Freq: NEEDED Status: Active Protocol: Document 03/04/23 10:35 [facility] (Rec: 03/04/23 11:35 [facility] [id number]) Medical Review Prior Functional Status Communication Independent Mobility and Gait Pt states just able to do transfers only to ,bsc, toilet, etc.. Pt just doing stand pivot transfers at this time with assist form her significant other, Patrick or caregivers. Activities of Daily Living and IADL's Pt states able to do grooming and eating needs on her own after set-up. Otherwise pt is needing assist for all other ADL needs. Social History Household Members significant other,caregiver Living Arrangements House Number of Stairs To Enter/Railing? 3 steps with bilateral rails. Per pt, she gets in by being carried up while sitting in the wc. Home Environment Tub/Shower Home Equipment Front Wheel Walker,Four Wheel Walker,Manual Wheelchair, Bedside Commode,Grab Bars Near Toilet,Grab Bars In Shower M2 OT-IP Current Condition Start: 03/04/23 11:18 Freq: Status: Active Protocol: Document 03/04/23 10:35 [facility] (Rec: 03/04/23 11:35 [facility] [id number]) Occupational Therapy Current Condition Current Condition Evaluation Date 03/04/23 Treatment Diagnosis LLE pain Diagnosis Onset Date 03/03/23 M3 OT- IP Subjective and Pain Start: 03/04/23 11:18 Freq: Status: Active Protocol: Document 03/04/23 10:35 [facility] (Rec: 03/04/23 11:35 [facility] [id number]) OT- Subjective Occupational Therapy Visit Type Type Initial Evaluation Visit Start Time 10:35 Visit Stop Time 10:52 Total Visit Minutes 17 Occupational Therapy Visit Comments Patient Comments Pt agreed to try to get up. Patient/Caregiver Goals To go home OT Pain Assessment Pain When Pain Assessed At Rest Pain Present Pain Present Pain Reported Location Left Leg Intensity 9 Scale Used Numeric (0 - 10) M4 OT- IP ADL's Start: 03/04/23 11:18 Freq: Status: Active Protocol: Document 03/04/23 10:35 [facility] (Rec: 03/04/23 11:35 [facility] [id number]) OT [id number] Comments OT Self-Feeding Comments Pt able to eat after set-up of her food. OT ADL-Grooming Comments OT Grooming Comments Not performed OT ADL-Oral Care Comments Oral Care Comments Not performed OT ADL-Dressing General Eval Lower Body Dressing Ability Maximum Assistance OT ADL-Toileting General Evaluation Toileting Ability Total Assistance Comments OT Toileting Comments Pt using Purewick, pt dependent to help with hygiene and brief management needs while in bed. OT ADL-Bathing Comments OT Bathing Comments sponge bath more appropriate at this time M5 OT- IP IADL's Start: 03/04/23 11:18 Freq: Status: Active Protocol: Document 03/04/23 10:35 [facility] (Rec: 03/04/23 11:35 [facility] [id number]) OT-Instrumental Activities of Daily Living Home Safety Awareness Awareness of Need for Assistance at Home Good Awareness Home Safety Comments Pt states has caregivers that come daily and significant other to be able to assist her at home. Medication Management Medication Management Caregiver Provides Supervision Meal Preparation Meal Preparation Caregiver Provides Assist Log Hauler Log Hauler Caregiver Provides Assist M6 OT- IP Functional Cognition Start: 03/04/23 11:18 Freq: Status: Active Protocol: Document 03/04/23 10:35 [facility] (Rec: 03/04/23 11:35 [facility] [id number]) Cognitive Factors Limiting Selfcare Function Cognitive Ability Level of Alertness Alert Patient Orientation Name,Place,Situation Attention Span Ability Capable of Focused Attention, Capable of Sustained Attention Ability to Follow Commands Able to Follow One Step Commands with Increased Time, Able to Follow One Step Commands with Repetition Memory Description Short Term Impaired Cognitive Comments Cognitive Assessment Comments Pt needing encouragement to participate and cues as pt is easily distracted. OT- Vision and Hearing OT- Hearing Assessment OT- Hearing Assessment WFL OT- Vision Assessment Visual Acuity Glasses For Reading M7 OT- IP Mobility and Balance Start: 03/04/23 11:18 Freq: Status: Active Protocol: Document 03/04/23 10:35 [facility] (Rec: 03/04/23 11:35 [facility] [id number]) OT- Bed Mobility Assessment Supine to Sit Supine to Sit Assist Moderate Assistance Sit to Supine Sit to Supine Assist Moderate Assistance OT-Transfer Assessment Comments Mobility Comments Pt only able to tolerate sitting at the edge of the bed with MODA X1. Pt not wanting to try to stand at this time due to her pain. OT- Balance Assessment Sitting Balance and Reactions Static Sitting Balance Ability Good Dynamic Sitting Balance Ability Fair M8 OT- IP Objective Assessments Start: 03/04/23 11:18 Freq: Status: Active Protocol: Document 03/04/23 10:35 [facility] (Rec: 03/04/23 11:35 [facility] [id number]) OT Gross Range of Motion Upper Extremity Range of Motion Assessment Bilaterally Impaired OT Strength Upper Extremity Strength Assessment Bilaterally Impaired M9 OT- IP Assessment and Plan Start: 03/04/23 11:18 Freq: Status: Active Protocol: Document 03/04/23 10:35 [facility] (Rec: 03/04/23 11:35 [facility] [id number]) OT Summary Assessment and Plan Potential Rehabilitation Potential Good Analytic Complexity at Evaluation Low Summary OT Impairments Pain,Range of Motion,Strength, Balance,Functional Mobility, Dressing,Toileting,Bathing, Toilet Transfers,Shower Transfers Progress Towards Goals Slow Progress due to Pain,Slow Progress due to Medical Issues,Slow Progress due to Activity Tolerance Assessment Summary Pt low complexity and here due to LLE pain -post operative changes possible partial distal quad tear from suprapatellar intramedullary nail as the entry site as through the distal quadriceps tendon from pt's sx last spring. Prior pt's significant other and caregiver assist pt with stand pivot transfer to , bsc,bed etc..as pt states mainly just uses the wc in the house. Pt only able to tolerate sitting up at the edge of the bed with MODA X1. pt having too much pain to attempt to stand. Therefore pending her transfers, pt may benefit from skilled rehab versus home with 24/7 assist and home health. Goals Self-Feeding Goal Standby Assistance Grooming Goal Standby Assistance Dressing Goal Moderate Assistance Toileting Goal Moderate Assistance Bathing Goal Moderate Assistance Toilet Transfer Goal Moderate Assistance Shower Transfer Goal Moderate Assistance Days to Meet Goals 7 Frequency of Treatment Frequency Of Treatment Once a Day Treatment Plan OT Treatment Plan ADL Training,Functional Mobility,Patient/Family Education,Discharge Planning Discharge Recommendations OT Discharge Recommendations Home with 24/7 Assist Available,Home Health,SNF Rehab,Home vs SNF Transportation Needs at Discharge Wheelchair/Cabulance
[2023-03-04] MEDS: methocarbamoL 500 MG TABLET PO ×2 (12:15→20:40)
[2023-03-04] MEDS: OXYCODONE IR 5 MG TABLET PO (12:15)
--- NOTE | 2023-03-04 15:22 | CM.DPC ---
DCP SNF vs HH planning Per MD, waiting for PT/OT eval and pt still having pain management issues. Per OT, pt not wanting to stand yet and hesitant to attempt mobility due to pain and continues to state that she feels she can d/c home with her Sig Other Syed assist as he typically helps her pivot to a w/c at home and has a KIZZY CG. SW attempted to meet with pt and discuss d/c plan but pt just medicated and drifted off to sleep. SW rounded on pt again and pt confirms her preference is home with Winston. SW requested pt ask Winston to arrive bedside in the AM for CG training to confirm he can assist and manage transfers and pt states she will call him and ask him to arrive bedside in the AM otherwise pt likely will need SNF. [facility] for females and cannot accept pt at this time or start auth. LAVINIA spoke to Marcia at [facility] and she states they had state Survey in-house today and now can currently only accept one new admit a day and they are booked until likely Saturday unless it changes and they can take more than one a day. Not starting [facility] auth at this time. SW called [facility] and left detailed msg stating OT eval faxed and request they initiate insurance auth today as pt may likely need it if she does not pass CG training with Sig Other Winston in the AM. Plan: SW to follow closely with pt in AM to confirm Sig Other arriving bedside for CG training in the morning and with [facility] to confirm if they can accept and if they initiated auth process. Shahnaz Swain, FISHER MUSSEL
--- NOTE | 2023-03-04 15:35 | PM.PN.1 ---
Subjective Subjective Interval history: Feeling a little better today. We will be working with Physical later. Still requiring significant medication for pain however. No new nursing complaints. Exam Vital Signs (past 8 hours): - 03/04/23 10:07 Temperature 98.0 F Pulse Rate 92 H Respiratory Rate 16 Blood Pressure 130/68 Pulse Oximetry 97 Oxygen Flow Rate 0 Oxygen Delivery Method Room Air Oxygen Flow Rate 0 Narrative Exam Narrative: GEN: no acute distress CV: No tachycardia, no murmurs, heart sounds S1 and S2 PULM: clear bilaterally ABD: soft, nontender, nondistended, no organomegaly EXT: warm and well perfused, no fluctuance noted, no pain to palpation, no erythema or warmth noted on skin, normal passive range of motion of knee and hip joint on left. NEURL: awake, alert, oriented, no focal deficits Objective Labs 03/04/23 08:05 03/04/23 08:05 Labs: Laboratory Results - last 24 hr 03/04/23 03/04/23 08:05 08:05 WBC 13.9 H RBC 2.60 L Hgb 8.7 L Hct 26.8 L MCV 103.2 H MCH 33.7 MCHC 32.6 RDW 15.7 H Plt Count 369 Neut % (Auto) 76.9 H Lymph % (Auto) 12.5 L [place] % (Auto) 6.7 Eos % (Auto) 3.3 Baso % (Auto) 0.6 Neut # (Auto) 97891 H Lymph # (Auto) 1700 [place] # (Auto) 900 Eos # (Auto) 500 H Baso # (Auto) 100 Sodium 137 Potassium 4.5 Chloride 114 H Carbon Dioxide 10 L BUN 21 H Creatinine 1.10 H Estimated GFR 54 L BUN/Creatinine Ratio 19.1 Glucose 46 L Calcium 8.0 L PFSH Medical History Acute [place] Anxiety Arthritis C. difficile colitis Chronic kidney disease Chronic pain Closed left clavicular fracture Colitis Compression fracture of L1 vertebra (~07/2019) COPD (chronic obstructive pulmonary disease) CVA (cerebral vascular accident) Depression Diarrhea Displaced comminuted fracture of shaft of tibia DJD (degenerative joint disease) Fibromyalgia Fracture, tibia GI bleeding History of osteomyelitis History of recurrent UTIs HLD (hyperlipidemia) Hypertension Hypertension Insomnia Iron (Fe) deficiency anemia Left foot drop Left rib fracture Lumbar compression fracture (02/26/19) Migraines Multiple fractures Nephrolithiasis Neuropathy Numbness and tingling Osteoporosis Osteoporosis Peptic ulcer disease Pre-diabetes Radius fracture (08/30/17) Recurrent UTI Renal disease Septic shock Stage 3 chronic kidney disease Surgical History H/O: hysterectomy History of surgery Hx of appendectomy Hx of cholecystectomy Hx of elbow surgery Hx of kyphoplasty (~2013) Hx of kyphoplasty (04/28/19) Hx of kyphoplasty (07/28/19) Hx of tonsillectomy Status post epidural steroid injection (03/25/19) Family History Mother No known health problems COPD (chronic obstructive pulmonary disease) Father No known health problems Social History household members: significant other and caregiver Smoking Status: Former smoker alcohol intake: current Assessment & Plan Assessment & Plan narrative: 1. SIRS positive, infectious source unclear, acute present on admission -patient with tachycardia, WBC 27, procal elevated -suspect source is infectious but etiology unclear -has had recurrent UTIs previously, but currently minimal urine symptoms and UA with low WBCs and leuk esterase -CT abdomen/pelvis with no definite source -due to leg pain plan for CT left lower extremity -consider possible joint aspiration pending CT result -no back pain so doubt recurrence of discitis -no respiratory symptoms, no meningeal symptoms so doubt pneumonia, or meningitis -blood cultures and urine cultures have been negative. Leukocytosis improved to 13.4. Procalcitonin 4.68 yesterday and we will recheck tomorrow -with Zosyn and vancomycin antibiotics. They should be continued until patient is consistently having no markers of infection so that leukolytes are normal and procalcitonin is normal.. In this patient with chronic recurrent infections, especially since she had a psoas infection in the past, should be ever where of possible signs of osteomyelitis 2. Acute encephalopathy, improving -suspect secondary to medication effect and possibly infection -continue to treat infection as above -careful with medications that could cause encephalopathy 3. CHFpEF -not in exacerbation currently 4. CKD stage 3 -trend creatinine daily, improving. Continue to follow 5. Decreased mobility. Physical therapy ongoing. CODE: Full Proxy: Francis Leiva stephie DVT prophylaxis: Enoxaparin Quality VTE Deep Vein Thrombosis/Pulmonary Embolism Present on Admission: No
--- NOTE | 2023-03-04 17:43 | PT.IIE ---
Current Diagnoses Elevated white blood cell count, unspecified (03/03/23) Pain in left leg (03/03/23) Surgical History (Last Reviewed 03/03/23 @ 21:23 by Marilou Carpio MD) H/O: hysterectomy History of surgery Hx of appendectomy Hx of cholecystectomy Hx of elbow surgery Hx of kyphoplasty (~2013) Hx of kyphoplasty (04/28/19) Hx of kyphoplasty (07/28/19) Hx of tonsillectomy Status post epidural steroid injection (03/25/19) Medical History (Last Reviewed 03/03/23 @ 21:23 by Marilou Carpio MD) Acute [place] Anxiety Arthritis C. difficile colitis Chronic kidney disease Chronic pain Closed left clavicular fracture Colitis Compression fracture of L1 vertebra (~07/2019) COPD (chronic obstructive pulmonary disease) CVA (cerebral vascular accident) Depression Diarrhea Displaced comminuted fracture of shaft of tibia DJD (degenerative joint disease) Fibromyalgia Fracture, tibia GI bleeding History of osteomyelitis History of recurrent UTIs HLD (hyperlipidemia) Hypertension Hypertension Insomnia Iron (Fe) deficiency anemia Left foot drop Left rib fracture Lumbar compression fracture (02/26/19) Migraines Multiple fractures Nephrolithiasis Neuropathy Numbness and tingling Osteoporosis Osteoporosis Peptic ulcer disease Pre-diabetes Radius fracture (08/30/17) Recurrent UTI Renal disease Septic shock Stage 3 chronic kidney disease Physical Therapy Inpatient Evaluation/Re-Eval M1 PT/OT-IP Prior Functional Status Start: 03/04/23 11:18 Freq: NEEDED Status: Active Protocol: Document 03/04/23 17:04 [facility] (Rec: 03/04/23 17:43 [facility] [id number]) Medical Review Prior Functional Status Medical History Reviewed Yes Diet/Fluid Consistency Regular Communication Independent Mobility and Gait Pt states just able to do transfers only to ,bsc, toilet, etc.. Pt just doing stand pivot transfers at this time. pt reports she requires assist for bed mobility and transfers Activities of Daily Living and IADL's Pt states able to do grooming and eating needs on her own after set-up. Otherwsie pt is needing assist for all other ADL needs. Social History Household Members significant other,caregiver Living Arrangements House Number of Stairs To Enter/Railing? 3 steps with bilateral rails. Per pt, she gets in by being carried up while sitting in the wc. Home Environment Tub/Shower Home Equipment Front Wheel Walker,Four Wheel Walker,Manual Wheelchair, Bedside Commode,Grab Bars Near Toilet,Grab Bars In Shower M2 PT-IP Current Condition Start: 03/04/23 17:00 Freq: NEEDED Status: Active Protocol: Document 03/04/23 17:04 [facility] (Rec: 03/04/23 17:43 [facility] [id number]) Physical Therapy Current Condition Current Condition Evaluation Date 03/04/23 Treatment Diagnosis weakness, LLE pain M3 PT-IP Subjective Start: 03/04/23 17:00 Freq: NEEDED Status: Active Protocol: Document 03/04/23 17:04 [facility] (Rec: 03/04/23 17:43 [facility] [id number]) Subjective Physical Therapy Visit Type Type Initial Evaluation Visit Start Time 16:30 Visit Stop Time 17:01 Total Visit Minutes 31 Number of DRAWER IN PLAIN LOOM Visits 0 Physical Therapy Visit Comments Patient Comments pt reports she wants to go home Therapy Pain Assessment Pain When Pain Assessed During Mobility Pain Present Pain Present Pain Reported Location Left Leg Pain Behaviors Facial Grimacing,Moaning, Wincing Pain Management Techniques Re-positioning,Timing of Activity with Medications M4 PT-IP Mobility and Gait Start: 03/04/23 17:00 Freq: NEEDED Status: Active Protocol: Document 03/04/23 17:04 [facility] (Rec: 03/04/23 17:43 [facility] [id number]) PT-Bed Mobility Assessment Rolling Type of Rolling Roll to Right Level of Assist Maximal Assistance Supine to Sit Supine to Sit Total Assistance Sit to Supine Sit to Supine Total Assistance PT-Transfer Assessment Comments Mobility Comments unable to try d/t pt reporting too much pain and refusing and notes she is dizzy and lightheaded PT-Balance Assessment Sitting Balance and Reactions Static Sitting Balance Ability Fair Dynamic Sitting Balance Ability Poor M5 PT-IP Objective Assessments Start: 03/04/23 17:00 Freq: NEEDED Status: Active Protocol: Document 03/04/23 17:04 [facility] (Rec: 03/04/23 17:43 [facility] [id number]) Orientation Orientation/Cognition Level of Alertness Alert Gross Range of Motion Lower Extremity ROM Assessment Bilaterally Impaired Strength Lower Extremity Strength Assessment Bilaterally Impaired M7 PT-IP Assessment and Plan Start: 03/04/23 17:00 Freq: NEEDED Status: Active Protocol: Document 03/04/23 17:04 [facility] (Rec: 03/04/23 17:43 [facility] [id number]) PT Summary Assessment and Plan Potential Rehabilitation Potential Fair Status of Condition at Evaluation Stable Summary Impairments Pain,ROM,Strength,Balance,Bed Mobility,Transfers,Gait, Activity Tolerance Assessment Summary Pt presents w/L thigh pain and hip pain that is limiting her mobility. She was unable to do more than be sat EOB and required >75% assist to help w /this. She felt dizzy and very painful at EOB so further mobility was not done. At this time, pt is requiring full assist for mobility and refusing further than sitting at EOB. She sat EOB SBA occasionally needing min A. She will require SNF rehab prior to returning home at this time as she is unable to safely mobilize and is dependent w/her mobility. Goals Bed Mobility Goal Minimal Assistance Transfer Goal Minimal Assistance Days to Meet Goals 5 Frequency of Treatment Frequency Of Treatment Once a Day Treatment Plan Physical Therapy Treatment Plan Bed Mobility Training,Transfer Training,Therapeutic Exercise ,Discharge Planning Other Recommendations and Next Treatment work on transfer ability Focus Weight Bearing Status Weight Bearing Status Weight Bear as Tolerated Recommendations To Nursing Amount of Assist Needed Mechanical Lift Discharge Recommendations PT Discharge Recommendations SNF Rehab Transportation Needs at Discharge Wheelchair/Cabulance
[2023-03-04] MEDS: GABAPENTIN 300 MG CAPSULE 900 MG PO (20:40)
[2023-03-04 21:50] VITALS: BP 123/64; PULSE 74; RESP 18; TEMP 36.9; O2SAT 97
[2023-03-05] MEDS: OXYCODONE IR 5 MG TABLET PO ×2 (03:20→13:00)
[2023-03-05] MEDS: PIPERACILLIN/TAZO 3.375 GM in SODIUM CHLORIDE 0.9% 100 ML IV ×3 (03:20→19:55)
[2023-03-05 03:38] VITALS: BP 154/69; PULSE 76; RESP 22; TEMP 36.2; O2SAT 98
[2023-03-05] MEDS: HYDROMORPHONE 1 MG INJ IV ×5 (04:34→22:01)
[2023-03-05] MEDS: SODIUM CHLORIDE 0.9% 1,000 ML 100 ML IV (06:13)
[2023-03-05] MEDS: GABAPENTIN 300 MG CAPSULE PO ×2 (06:13→15:28)
[2023-03-05] MEDS: ACETAMINOPHEN 325 MG TABLET 650 MG PO ×2 (07:27→15:28)
--- NOTE | 2023-03-05 08:03 | PM.PN.1 ---
Subjective Subjective Interval history: Patient has ongoing pain in left leg and requesting her home oxycodone dose of 10mg instead of 5mg. She says she has had 2 separate infectious disease doctors in the past who could not figure out why my WBC was high. Exam Vital Signs (past 8 hours): - 03/05/23 03:38 Temperature 97.2 F L Pulse Rate 76 Respiratory Rate 22 Blood Pressure 154/69 H Pulse Oximetry 98 Oxygen Flow Rate 0 Oxygen Delivery Method Room Air Oxygen Flow Rate 0 Narrative Exam Narrative: GEN: no acute distress CV: No tachycardia, no murmurs, heart sounds S1 and S2 PULM: clear bilaterally ABD: soft, nontender, nondistended, no organomegaly EXT: warm and well perfused, no fluctuance noted, no pain to palpation, no erythema or warmth noted on skin, normal passive range of motion of knee and hip joint on left. NEURL: awake, alert, oriented, no focal deficits Objective Labs 03/04/23 08:05 03/04/23 08:05 Labs: Laboratory Results - last 24 hr 03/04/23 03/04/23 08:05 08:05 WBC 13.9 H RBC 2.60 L Hgb 8.7 L Hct 26.8 L MCV 103.2 H MCH 33.7 MCHC 32.6 RDW 15.7 H Plt Count 369 Neut % (Auto) 76.9 H Lymph % (Auto) 12.5 L [place] % (Auto) 6.7 Eos % (Auto) 3.3 Baso % (Auto) 0.6 Neut # (Auto) 36699 H Lymph # (Auto) 1700 [place] # (Auto) 900 Eos # (Auto) 500 H Baso # (Auto) 100 Sodium 137 Potassium 4.5 Chloride 114 H Carbon Dioxide 10 L BUN 21 H Creatinine 1.10 H Estimated GFR 54 L BUN/Creatinine Ratio 19.1 Glucose 46 L Calcium 8.0 L PFSH Medical History Acute [place] Anxiety Arthritis C. difficile colitis Chronic kidney disease Chronic pain Closed left clavicular fracture Colitis Compression fracture of L1 vertebra (~07/2019) COPD (chronic obstructive pulmonary disease) CVA (cerebral vascular accident) Depression Diarrhea Displaced comminuted fracture of shaft of tibia DJD (degenerative joint disease) Fibromyalgia Fracture, tibia GI bleeding History of osteomyelitis History of recurrent UTIs HLD (hyperlipidemia) Hypertension Hypertension Insomnia Iron (Fe) deficiency anemia Left foot drop Left rib fracture Lumbar compression fracture (02/26/19) Migraines Multiple fractures Nephrolithiasis Neuropathy Numbness and tingling Osteoporosis Osteoporosis Peptic ulcer disease Pre-diabetes Radius fracture (08/30/17) Recurrent UTI Renal disease Septic shock Stage 3 chronic kidney disease Surgical History H/O: hysterectomy History of surgery Hx of appendectomy Hx of cholecystectomy Hx of elbow surgery Hx of kyphoplasty (~2013) Hx of kyphoplasty (04/28/19) Hx of kyphoplasty (07/28/19) Hx of tonsillectomy Status post epidural steroid injection (03/25/19) Family History Mother No known health problems COPD (chronic obstructive pulmonary disease) Father No known health problems Social History household members: significant other and caregiver Smoking Status: Former smoker alcohol intake: current Assessment & Plan Assessment & Plan narrative: 1. SIRS positive, infectious source unclear, acute present on admission -patient with tachycardia, WBC 27, procal elevated -suspect source is infectious but etiology unclear -has had recurrent UTIs previously, but currently minimal urine symptoms and UA with low WBCs and leuk esterase -CT abdomen/pelvis with no definite source -due to leg pain underwent CT left lower extremity which was unremarkable -ortho consulted and did not feel LLE was source of infection -no back pain so doubt recurrence of discitis -no respiratory symptoms, no meningeal symptoms so doubt pneumonia, or meningitis -blood cultures and urine cultures have been negative. Leukocytosis improved to 13.4. Procalcitonin 4.68 yesterday. Unable to recheck as cannot draw labs on patient due to tough stick. -with Zosyn and vancomycin antibiotics. MRSA screen negative so vanc stopped. -per patient she has had 2 ID docs in the past work her up for infections and no source of her WBC found -will speak with ID about potentially treating empirically with levaquin 2. Acute encephalopathy, resolved -suspect secondary to medication effect and possibly infection -continue to treat infection as above -careful with medications that could cause encephalopathy 3. CHFpEF -not in exacerbation currently 4. CKD stage 3 -trend creatinine daily, improving. Continue to follow 5. Decreased mobility with pain of LLE. Physical therapy ongoing. Rec SNF but patient wants to return home. She is ok with HH. Ortho said quad tear is from prior tibia fracture repair and no intervention required. CODE: Full Proxy: Francis Leiva, son DVT prophylaxis: Enoxaparin Dispo: Home in 1-2 days with HH, as patient unwilling to go to SNF. Quality VTE Deep Vein Thrombosis/Pulmonary Embolism Present on Admission: No
[2023-03-05] MEDS: ASPIRIN EC 81 MG TABLET PO (08:47)
[2023-03-05] MEDS: carisoprodoL 350 MG TABLET PO ×3 (08:47→21:54)
[2023-03-05] MEDS: ENOXAPARIN 30 MG/0.3 ML SYRINGE SUBCUT (08:48)
[2023-03-05] MEDS: methocarbamoL 500 MG TABLET PO (08:48)
[2023-03-05] MEDS: ATORVASTATIN 20 MG TABLET 40 MG PO (08:48)
[2023-03-05] MEDS: PANTOPRAZOLE DR 40 MG TABLET PO (08:48)
[2023-03-05] MEDS: METOPROLOL IR 25 MG TABLET 12.5 MG PO ×2 (08:48→21:54)
[2023-03-05] MEDS: polyethylene glycoL 3350 17 GM POWD.PACK PO (08:49)
[2023-03-05 09:00] VITALS: BP 137/59; PULSE 79; RESP 14; TEMP 36.3; O2SAT 99
--- NOTE | 2023-03-05 11:30 | PT.IPTN ---
Current Diagnoses Elevated white blood cell count, unspecified (03/03/23) Pain in left leg (03/03/23) Physical Therapy Treatment Note M2 PT-IP Current Condition Start: 03/04/23 17:00 Freq: NEEDED Status: Active Protocol: Document 03/04/23 17:04 [facility] (Rec: 03/04/23 17:43 [facility] [id number]) Physical Therapy Current Condition Current Condition Evaluation Date 03/04/23 Treatment Diagnosis weakness, LLE pain M3 PT-IP Subjective Start: 03/04/23 17:00 Freq: NEEDED Status: Active Protocol: Document 03/05/23 13:10 [facility] (Rec: 03/05/23 13:30 TS [id number]) Subjective Physical Therapy Visit Type Type Treatment Note Visit Start Time 11:30 Visit Stop Time 11:56 Total Visit Minutes 26 Notes Spouse present Number of SPRINKLER FITTER Visits 1 Physical Therapy Visit Comments Patient Comments Pt found resting in bed, agreeable to PT. Therapy Pain Assessment Pain When Pain Assessed During Mobility Pain Present Pain Present Pain Reported Location Left Leg Pain Behaviors Calling Out,Crying,Facial Grimacing,Moaning,Wincing Pain Management Techniques Modification of Treatment,Re- positioning,Timing of Activity with Medications M4 PT-IP Mobility and Gait Start: 03/04/23 17:00 Freq: NEEDED Status: Active Protocol: Document 03/05/23 13:10 [facility] (Rec: 03/05/23 13:30 TS [id number]) PT-Bed Mobility Assessment Supine to Sit Supine to Sit Moderate Assistance Scooting Scooting to Edge of Bed Minimal Assistance PT-Transfer Assessment Sit to and From Stand Sit to and from Stand Maximum Assistance,1 Person Assistance,Use of Upper Extremities Equipment Transfer Assistive Device Gait Belt,Front Wheeled Walker Orthotic/Prosthetic Devices or Brace: Yes Transfers Transfer Destination Chair Transfer Technique Stand Pivot Transfer Ability Level of Assist Maximum Assistance,2 Person Assistance Comments Mobility Comments Supine to sit ModA for uprighting trunk and LE assistance to EOB. Pt slowly scooted to EOB Emmie, required ~1min rest break due to fatigue in UEs. Sit to stand with FWW MaxA x1 for posterior leaning. Stand pivot transfer to chair MaxA x2 w/FWW, pt crying out due to pain, has x2 buckling of knees, required assist with FWW management. Pt in chair, is very upset and crying due to pain. She was left in chair with spouse in room, call light nearby, RN notified. Gait Assessment Comments Gait Comments Stand pivot to chair PT-Balance Assessment Sitting Balance and Reactions Static Sitting Balance Ability Fair Dynamic Sitting Balance Ability Poor Standing Balance and Reactions Static Standing Balance Ability Poor Dynamic Standing Balance Ability Poor M5 PT-IP Objective Assessments Start: 03/04/23 17:00 Freq: NEEDED Status: Active Protocol: Document 03/04/23 17:04 [facility] (Rec: 03/04/23 17:43 [facility] [id number]) Orientation Orientation/Cognition Level of Alertness Alert Gross Range of Motion Lower Extremity ROM Assessment Bilaterally Impaired Strength Lower Extremity Strength Assessment Bilaterally Impaired M7 PT-IP Assessment and Plan Start: 03/04/23 17:00 Freq: NEEDED Status: Active Protocol: Document 03/05/23 13:10 TS (Rec: 03/05/23 13:30 TS [id number]) PT Summary Assessment and Plan Potential Rehabilitation Potential Fair Summary Impairments Pain,ROM,Strength,Balance,Bed Mobility,Transfers,Gait, Activity Tolerance Progress Towards Goals Slow Progress due to Pain,Slow Progress due to Medical Issues Assessment Summary Pt is making slow progress due to her pain. She is requiring decreased assistance for bed mobility to ModA for supine to sit and Emmie for scooting to EOB. She performed Stand pivot transfer to chair MaxA x2, x2 buckling of knees due to pain , pt was crying out and very upset. PT is recommending SNF at this time. Pt does not want to go to rehab and would like to go home. She has a caregiver M-F 3-4 hours a day and spouse who will assist / . Pt is requiring 2 person assist at this time and would require 11/03 assist x2 PA if she were to return home. Goals Bed Mobility Goal Minimal Assistance Transfer Goal Minimal Assistance Days to Meet Goals 5 Frequency of Treatment Frequency Of Treatment Once a Day Treatment Plan Physical Therapy Treatment Plan Bed Mobility Training,Transfer Training,Therapeutic Exercise ,Discharge Planning Other Recommendations and Next Treatment work on transfer ability Focus Weight Bearing Status Weight Bearing Status Weight Bear as Tolerated Recommendations To Nursing Amount of Assist Needed Mechanical Lift Discharge Recommendations Equipment Needed for Home Before Could benefit from use of Discharge slideboard. Transportation Needs at Discharge Wheelchair/Cabulance,Stretcher /Ambulance
[2023-03-05 13:00] VITALS: BP 134/62; PULSE 77; RESP 18; TEMP 36.4; O2SAT 96
[2023-03-05] MEDS: SENNOSIDES 8.6 MG TABLET PO ×2 (13:19→21:54)
[2023-03-05 14:49] LABS: MRSA (Nasal) PCR Not Detected (Not Detect)
--- NOTE | 2023-03-05 16:00 | OT.IP.TRT ---
Current Diagnoses Elevated white blood cell count, unspecified (03/05/23) Pain in left leg (03/05/23) Occupational Therapy Treatment Note M2 OT-IP Current Condition Start: 03/04/23 11:18 Freq: Status: Active Protocol: Document 03/04/23 10:35 [facility] (Rec: 03/04/23 11:35 [facility] [id number]) Occupational Therapy Current Condition Current Condition Evaluation Date 03/04/23 Treatment Diagnosis LLE pain Diagnosis Onset Date 03/03/23 M3 OT- IP Subjective and Pain Start: 03/04/23 11:18 Freq: Status: Active Protocol: Document 03/05/23 16:00 [facility] (Rec: 03/05/23 16:59 [facility] [id number]) OT- Subjective Occupational Therapy Visit Type Type Treatment Note Visit Start Time 16:00 Visit Stop Time 16:38 Total Visit Minutes 38 Occupational Therapy Visit Comments Patient Comments Pt agreed to try the sliding board for transfers. Patient/Caregiver Goals To go home. OT Pain Assessment Pain When Pain Assessed During Mobility Pain Present Pain Present Pain Reported Location Left Leg Pain Behaviors Facial Grimacing,Holding Area M6 OT- IP Functional Cognition Start: 03/04/23 11:18 Freq: Status: Active Protocol: Document 03/05/23 16:00 [facility] (Rec: 03/05/23 16:59 [facility] [id number]) Cognitive Factors Limiting Selfcare Function Cognitive Ability Level of Alertness Alert Patient Orientation Name,Place,Situation Attention Span Ability Capable of Focused Attention, Capable of Sustained Attention Ability to Follow Commands Able to Follow One Step Commands Memory Description Short Term Impaired Cognitive Comments Cognitive Assessment Comments Pt able to follow commmands better today and motivated to go home. M7 OT- IP Mobility and Balance Start: 03/04/23 11:18 Freq: Status: Active Protocol: Document 03/05/23 16:00 [facility] (Rec: 03/05/23 16:59 [facility] [id number]) OT- Bed Mobility Assessment Supine to Sit Supine to Sit Assist Standby Assistance,Head of Bed Elevated Sit to Supine Sit to Supine Assist Contact Guard Assistance OT-Transfer Assessment Transfers Transfer Ability Moderate Assistance,2 Person Assistance Technique Transfer Destination Bed,Chair Transfer Technique Lateral Scoot Devices Transfer Assistive Devices Gait Belt Comments Mobility Comments Pt needing increased time and able to get to the edge of the bed with head of bed raised with increased time. CGA to help get her LLE back into bed . Assist for sliding board placement and CGA to slide from bed to recliner. Pt needing MODA x2 to get back to bed as going uphill and needing more assist to help scoot up the sliding board. OT- Balance Assessment Sitting Balance and Reactions Static Sitting Balance Ability Good Dynamic Sitting Balance Ability Good M8 OT- IP Objective Assessments Start: 03/04/23 11:18 Freq: Status: Active Protocol: Document 03/04/23 10:35 [facility] (Rec: 03/04/23 11:35 [facility] [id number]) OT Gross Range of Motion Upper Extremity Range of Motion Assessment Bilaterally Impaired OT Strength Upper Extremity Strength Assessment Bilaterally Impaired M9 OT- IP Assessment and Plan Start: 03/04/23 11:18 Freq: Status: Active Protocol: Document 03/05/23 16:00 [facility] (Rec: 03/05/23 16:59 [facility] [id number]) OT Summary Assessment and Plan Potential Rehabilitation Potential Good Analytic Complexity at Evaluation Low Summary OT Impairments Pain,Range of Motion,Strength, Balance,Functional Mobility, Dressing,Toileting,Bathing, Toilet Transfers,Shower Transfers Progress Towards Goals Progressing Toward Goals Assessment Summary Able to try the sliding board for pt having better pain control at time of OT treatment. Pt did well going from higher bed to recliner and needing CGA and assist for sliding board placement. Pt going uphill needing MODA X 2. Pt is insistent on going home and would benefit from a sliding board, drop arm BSC, and for caregivers to be able to assist her with good safety . Pt would still benefit from skilled rehab , however if pt continues to do well and able to do caregiver training -looking to go home with 24/7 assist and HH. Goals Self-Feeding Goal Standby Assistance Grooming Goal Standby Assistance Dressing Goal Moderate Assistance Toileting Goal Moderate Assistance Bathing Goal Moderate Assistance Toilet Transfer Goal Moderate Assistance Shower Transfer Goal Moderate Assistance Days to Meet Goals 6 Frequency of Treatment Frequency Of Treatment Once a Day Treatment Plan OT Treatment Plan ADL Training,Functional Mobility,Patient/Family Education,Discharge Planning Discharge Recommendations OT Discharge Recommendations Home with 24/7 Assist Available,Home Health,SNF Rehab,Home vs SNF Home Equipment Needs Drop arm commode, sliding board if pt does well with caregiver training Transportation Needs at Discharge Private Vehicle,Wheelchair/ Cabulance
--- NOTE | 2023-03-05 16:00 | OT.IP.TRT ---
Current Diagnoses Elevated white blood cell count, unspecified (03/05/23) Pain in left leg (03/05/23) Occupational Therapy Treatment Note M2 OT-IP Current Condition Start: 03/04/23 11:18 Freq: Status: Active Protocol: Document 03/04/23 10:35 [facility] (Rec: 03/04/23 11:35 [facility] [id number]) Occupational Therapy Current Condition Current Condition Evaluation Date 03/04/23 Treatment Diagnosis LLE pain Diagnosis Onset Date 03/03/23 M3 OT- IP Subjective and Pain Start: 03/04/23 11:18 Freq: Status: Active Protocol: Document 03/05/23 16:00 [facility] (Rec: 03/05/23 16:59 [facility] [id number]) OT- Subjective Occupational Therapy Visit Type Type Treatment Note Visit Start Time 16:00 Visit Stop Time 16:38 Total Visit Minutes 38 Occupational Therapy Visit Comments Patient Comments Pt agreed to try the sliding board for transfers. Patient/Caregiver Goals To go home. OT Pain Assessment Pain When Pain Assessed During Mobility Pain Present Pain Present Pain Reported Location Left Leg Pain Behaviors Facial Grimacing,Holding Area M6 OT- IP Functional Cognition Start: 03/04/23 11:18 Freq: Status: Active Protocol: Document 03/05/23 16:00 [facility] (Rec: 03/05/23 16:59 [facility] [id number]) Cognitive Factors Limiting Selfcare Function Cognitive Ability Level of Alertness Alert Patient Orientation Name,Place,Situation Attention Span Ability Capable of Focused Attention, Capable of Sustained Attention Ability to Follow Commands Able to Follow One Step Commands Memory Description Short Term Impaired Cognitive Comments Cognitive Assessment Comments Pt able to follow commands better today and motivated to go home. Pt clarified that at home her significant other would asisst her with stand pivot transfer 50%. M7 OT- IP Mobility and Balance Start: 03/04/23 11:18 Freq: Status: Active Protocol: Document 03/05/23 16:00 [facility] (Rec: 03/05/23 16:59 [facility] [id number]) OT- Bed Mobility Assessment Supine to Sit Supine to Sit Assist Standby Assistance,Head of Bed Elevated Sit to Supine Sit to Supine Assist Contact Guard Assistance OT-Transfer Assessment Transfers Transfer Ability Moderate Assistance,2 Person Assistance Technique Transfer Destination Bed,Chair Transfer Technique Lateral Scoot Devices Transfer Assistive Devices Gait Belt Comments Mobility Comments Pt needing increased time and able to get to the edge of the bed with head of bed raised with increased time. CGA to help get her LLE back into bed . Assist for sliding board placement and CGA to slide from bed to recliner. Pt needing MODA x2 to get back to bed as going uphill and needing more assist to help scoot up the sliding board. OT- Balance Assessment Sitting Balance and Reactions Static Sitting Balance Ability Good Dynamic Sitting Balance Ability Good M8 OT- IP Objective Assessments Start: 03/04/23 11:18 Freq: Status: Active Protocol: Document 03/04/23 10:35 [facility] (Rec: 03/04/23 11:35 [facility] [id number]) OT Gross Range of Motion Upper Extremity Range of Motion Assessment Bilaterally Impaired OT Strength Upper Extremity Strength Assessment Bilaterally Impaired M9 OT- IP Assessment and Plan Start: 03/04/23 11:18 Freq: Status: Active Protocol: Document 03/05/23 16:00 [facility] (Rec: 03/05/23 16:59 [facility] [id number]) OT Summary Assessment and Plan Potential Rehabilitation Potential Good Analytic Complexity at Evaluation Low Summary OT Impairments Pain,Range of Motion,Strength, Balance,Functional Mobility, Dressing,Toileting,Bathing, Toilet Transfers,Shower Transfers Progress Towards Goals Progressing Toward Goals Assessment Summary Able to try the sliding board for pt as pain was better at time of OT treatment. Pt did well going from higher bed to recliner and needing CGA. Pt going uphill needing MODA X 2. Pt is insistent on going home and would benefit from a sliding board, drop arm BSC, and for caregivers to be able to assist her with good safety . Pt would still benefit from skilled rehab , however if pt continues to do well, make progress and able to complete caregiver training -looking to go home with 24/7 assist and HH. Goals Self-Feeding Goal Standby Assistance Grooming Goal Standby Assistance Dressing Goal Moderate Assistance Toileting Goal Moderate Assistance Bathing Goal Moderate Assistance Toilet Transfer Goal Moderate Assistance Shower Transfer Goal Moderate Assistance Days to Meet Goals 6 Frequency of Treatment Frequency Of Treatment Once a Day Treatment Plan OT Treatment Plan ADL Training,Functional Mobility,Patient/Family Education,Discharge Planning Discharge Recommendations OT Discharge Recommendations Home with 24/7 Assist Available,Home Health,SNF Rehab,Home vs SNF Home Equipment Needs Drop arm commode, sliding board if pt does well with caregiver training Transportation Needs at Discharge Private Vehicle,Wheelchair/ Cabulance
[2023-03-05 17:00] VITALS: BP 157/61; PULSE 80; RESP 16; TEMP 36.2; O2SAT 99
[2023-03-05] MEDS: OXYCODONE IR 5 MG TABLET 10 MG PO (19:54)
[2023-03-05 19:55] VITALS: BP 166/77; PULSE 74; RESP 18; TEMP 36.6; O2SAT 100
[2023-03-06 00:38] VITALS: BP 148/68; PULSE 74; RESP 16; TEMP 36.5; O2SAT 98
[2023-03-06] MEDS: PIPERACILLIN/TAZO 3.375 GM in SODIUM CHLORIDE 0.9% 100 ML IV ×2 (03:39→12:10)
[2023-03-06 04:58] VITALS: BP 120/78; PULSE 81; RESP 16; TEMP 36.1; O2SAT 98
[2023-03-06] MEDS: OXYCODONE IR 5 MG TABLET 10 MG PO ×3 (05:20→15:17)
[2023-03-06] MEDS: GABAPENTIN 300 MG CAPSULE PO ×2 (06:20→15:17)
[2023-03-06 06:57] LABS: Add Manual Diff / Slide Review NO; Basophils Absolute Auto 100 /uL (0-100); Basophils Percent Auto 1.4 % (0-2); Eosinophils Absolute Auto 600 /uL (0-450); Eosinophils Percent Auto 6.9 % (2-4); Lymphocytes Absolute Auto 2200 /uL (1100-4500); Lymphocytes Percent Auto 25.5 % (25-40); Mean Corpuscular HGB Conc 33.2 % (30-36); Mean Corpuscular Hemoglobin 33.4 PG (26-34); Mean Corpuscular Volume 100.7 fL (80-100); Monocytes Absolute Auto 800 /uL (0-900); Monocytes Percent Auto 9.5 % (3-14); Neutrophils Absolute Auto 4900 /uL (1500-7000); Neutrophils Percent Auto 56.7 % (50-75); Platelet Count 424 X10^3/uL (150-400); Red Blood Cell Count 2.99 X10^6/uL (4.0-5.2); Red Cell Distribution Width 15.1 % (11.6-14.8); White Blood Cell Count 8.6 X10^3/uL (4.5-11.0)
[2023-03-06 07:16] LABS: C-Reactive Protein Quant 5.3 mg/dL (<1.0)
[2023-03-06 07:21] LABS: Procalcitonin 1.46 ng/mL (<0.5)
[2023-03-06 08:00] VITALS: BP 148/72; PULSE 77; RESP 19; TEMP 36.6; O2SAT 100
[2023-03-06] MEDS: HYDROMORPHONE 1 MG INJ IV (09:00)
[2023-03-06] MEDS: carisoprodoL 350 MG TABLET PO ×2 (09:01→15:17)
[2023-03-06] MEDS: methocarbamoL 500 MG TABLET PO (09:01)
[2023-03-06] MEDS: ASPIRIN EC 81 MG TABLET PO (09:01)
[2023-03-06] MEDS: SENNOSIDES 8.6 MG TABLET PO (09:01)
[2023-03-06] MEDS: METOPROLOL IR 25 MG TABLET 12.5 MG PO (09:01)
[2023-03-06] MEDS: polyethylene glycoL 3350 17 GM POWD.PACK PO (09:01)
[2023-03-06] MEDS: PANTOPRAZOLE DR 40 MG TABLET PO (09:02)
[2023-03-06] MEDS: ENOXAPARIN 30 MG/0.3 ML SYRINGE SUBCUT (09:03)
--- NOTE | 2023-03-06 11:02 | CM.DPC ---
Addendum entered by Maryann Payton R.N. 03/06/23 14:49: Plan is home with [facility]. Tia and Syed are coming at 1500 for caregiver training. Called Thad Ramsey at [facility], and let him know about referral, and that patient is to be discharging home today. Completed face to face, orders, MADELYN Johnson statistical assistant, is faxing over referral, DC Summary is completed. Will see how patient does with caregiver training. Original Note: DCP Cont: Was going to attempt getting patient over to [facility], Dorys at [facility] has been working on auth with [employer], but have wanted more information. Patient is now wanting home. Received a call from patient's [facility] case briefer, named Dana Génesis. Her number is: [phone]. Confirmed that patient just had an updated assessment, and now has 158 hours available a month. Her [facility] caregive's name is Tia Tello. Her number is: [phone]. Received Patrick's number from Deborah, he is her significant other. His number is: [phone]. Patient has been minimal weight bearing at home. Setting up caregiver training at 1500. Did get in touch with Syed, he can come in, and so can Tia. Tia worries about her going back home with this injury, but realizes that she is decisional. Dorys at [facility] is still working on auth. Patient is currently not under home health services, but did use [facility]. Patient also has a home rep through [facility] [employer] named Mavis Rubio. Her numbe is: [phone]. P: Patient has discharge orders for home today, will get in touch with [facility], will need a new referral. Caregiver training will happen at 1500. Maryann Payton RN/Garment Examiner
--- NOTE | 2023-03-06 11:59 | OT.IP.TRT ---
Current Diagnoses Elevated white blood cell count, unspecified (03/05/23) Pain in left leg (03/05/23) Occupational Therapy Treatment Note M2 OT-IP Current Condition Start: 03/04/23 11:18 Freq: Status: Active Protocol: Document 03/04/23 10:35 [facility] (Rec: 03/04/23 11:35 [facility] [id number]) Occupational Therapy Current Condition Current Condition Evaluation Date 03/04/23 Treatment Diagnosis LLE pain Diagnosis Onset Date 03/03/23 M3 OT- IP Subjective and Pain Start: 03/04/23 11:18 Freq: Status: Active Protocol: Document 03/06/23 13:25 [facility] (Rec: 03/06/23 13:33 [facility] [id number]) OT- Subjective Occupational Therapy Visit Type Type Treatment Note Visit Start Time 11:29 Visit Stop Time 11:59 Total Visit Minutes 30 Occupational Therapy Visit Comments Patient Comments Pt agreed to get up. Pt still insistent that she is not able to put weight on her LLE. Able to call the Hospitalist and able to clarify with Ortho that pt not no restrictions and just doesn't want to put weight on it. Patient/Caregiver Goals To go home OT Pain Assessment Pain When Pain Assessed During Mobility Pain Present Pain Present Pain Reported Location Left Leg Intensity 9 M5 OT- IP IADL's Start: 03/04/23 11:18 Freq: Status: Active Protocol: Document 03/04/23 10:35 [facility] (Rec: 03/04/23 11:35 [facility] [id number]) OT-Instrumental Activities of Daily Living Home Safety Awareness Awareness of Need for Assistance at Home Good Awareness Home Safety Comments Pt states has caregivers that come daily and significant other to be able to assist her at home. Medication Management Medication Management Caregiver Provides Supervision Meal Preparation Meal Preparation Caregiver Provides Assist Stone Sandblaster Stone Sandblaster Caregiver Provides Assist M6 OT- IP Functional Cognition Start: 03/04/23 11:18 Freq: Status: Active Protocol: Document 03/06/23 13:25 [facility] (Rec: 03/06/23 13:33 [facility] [id number]) Cognitive Factors Limiting Selfcare Function Cognitive Comments Cognitive Assessment Comments Pt is insistent on her care but able to follow commands. Pt needing lots of encouragement. M7 OT- IP Mobility and Balance Start: 03/04/23 11:18 Freq: Status: Active Protocol: Document 03/06/23 13:25 [facility] (Rec: 03/06/23 13:33 [facility] [id number]) OT- Bed Mobility Assessment Supine to Sit Supine to Sit Assist Standby Assistance Sit to Supine Sit to Supine Assist Independent OT-Transfer Assessment Transfers Transfer Ability Moderate Assistance Technique Transfer Destination Bed,Chair Transfer Technique Squat Pivot Devices Transfer Assistive Devices Gait Belt Comments Mobility Comments Pt able to get to the edge of bed on her own and MODA to squat pivot to the recliner to the right. OT- Balance Assessment Sitting Balance and Reactions Static Sitting Balance Ability Good Dynamic Sitting Balance Ability Good M8 OT- IP Objective Assessments Start: 03/04/23 11:18 Freq: Status: Active Protocol: Document 03/04/23 10:35 [facility] (Rec: 03/04/23 11:35 [facility] [id number]) OT Gross Range of Motion Upper Extremity Range of Motion Assessment Bilaterally Impaired OT Strength Upper Extremity Strength Assessment Bilaterally Impaired M9 OT- IP Assessment and Plan Start: 03/04/23 11:18 Freq: Status: Active Protocol: Document 03/06/23 13:25 [facility] (Rec: 03/06/23 13:33 [facility] [id number]) OT Summary Assessment and Plan Potential Rehabilitation Potential Good Analytic Complexity at Evaluation Low Summary OT Impairments Pain,Range of Motion,Strength, Balance,Functional Mobility, Dressing,Toileting,Bathing, Toilet Transfers,Shower Transfers Progress Towards Goals Progressing Toward Goals Assessment Summary Hospitalist able to clarify with Dr. Carpio that pt has no restrictions for her LLE and just doesn't want to put weight on her foot . Pt looking to go home with 24/7 assist and home health. Goals Self-Feeding Goal Standby Assistance Grooming Goal Standby Assistance Dressing Goal Moderate Assistance Toileting Goal Moderate Assistance Bathing Goal Moderate Assistance Toilet Transfer Goal Moderate Assistance Shower Transfer Goal Moderate Assistance Days to Meet Goals 5 Frequency of Treatment Frequency Of Treatment Once a Day Treatment Plan OT Treatment Plan ADL Training,Functional Mobility,Patient/Family Education,Discharge Planning Discharge Recommendations OT Discharge Recommendations Home with 24/7 Assist Available,Home Health Transportation Needs at Discharge Private Vehicle
[2023-03-06 12:00] VITALS: BP 134/70; PULSE 75; RESP 18; O2SAT 96
--- NOTE | 2023-03-06 15:20 | PT.IPTN ---
Current Diagnoses Elevated white blood cell count, unspecified (03/05/23) Pain in left leg (03/05/23) Physical Therapy Treatment Note M2 PT-IP Current Condition Start: 03/04/23 17:00 Freq: NEEDED Status: Active Protocol: Document 03/04/23 17:04 [facility] (Rec: 03/04/23 17:43 [facility] [id number]) Physical Therapy Current Condition Current Condition Evaluation Date 03/04/23 Treatment Diagnosis weakness, LLE pain M3 PT-IP Subjective Start: 03/04/23 17:00 Freq: NEEDED Status: Active Protocol: Document 03/06/23 16:26 [facility] (Rec: 03/06/23 16:40 [facility] [id number]) Subjective Physical Therapy Visit Type Type Treatment Note Visit Start Time 15:20 Visit Stop Time 15:40 Total Visit Minutes 20 Notes Caregiver training. Number of WEB PRESS OPERATOR HELPER OFFSET Visits 2 Physical Therapy Visit Comments Patient Comments Pt found resting in chair, caregiver present for training . Therapy Pain Assessment Pain When Pain Assessed During Mobility Pain Present Pain Present Pain Reported M4 PT-IP Mobility and Gait Start: 03/04/23 17:00 Freq: NEEDED Status: Active Protocol: Document 03/06/23 16:26 [facility] (Rec: 03/06/23 16:40 [facility] [id number]) PT-Transfer Assessment Transfers Transfer Destination Chair Transfer Technique Squat Pivot Transfer Ability Level of Assist Maximum Assistance,1 Person Assistance,Use of Upper Extremities Comments Mobility Comments Pt found resting in chair, caregiver present, agreeable to PT. Pt performed squat pivot transfer to bed MaxA x1 , provided cues for sequencing . Provided education to caregiver for squat pivot. Caregiver squat pivot transfer to chair MaxA, caregiver provided cues for foot pand hand placement. Gait Assessment Comments Gait Comments Unable at this time. PT-Balance Assessment Sitting Balance and Reactions Static Sitting Balance Ability Good Dynamic Sitting Balance Ability Good Standing Balance and Reactions Static Standing Balance Ability Poor Dynamic Standing Balance Ability Poor M5 PT-IP Objective Assessments Start: 03/04/23 17:00 Freq: NEEDED Status: Active Protocol: Document 03/04/23 17:04 [facility] (Rec: 03/04/23 17:43 [facility] [id number]) Orientation Orientation/Cognition Level of Alertness Alert Gross Range of Motion Lower Extremity ROM Assessment Bilaterally Impaired Strength Lower Extremity Strength Assessment Bilaterally Impaired M7 PT-IP Assessment and Plan Start: 03/04/23 17:00 Freq: NEEDED Status: Active Protocol: Document 03/06/23 16:26 [facility] (Rec: 03/06/23 16:40 [facility] [id number]) PT Summary Assessment and Plan Potential Rehabilitation Potential Fair Summary Impairments Pain,ROM,Strength,Balance,Bed Mobility,Transfers,Gait, Activity Tolerance Progress Towards Goals Slow Progress due to Pain,Slow Progress due to Medical Issues Assessment Summary Pt performed squat pivot x1 with MaxA from chair to bed, requires cues for sequencing. Provided caregiver training for squat pivot technique. Caregiver squat pivoted pt to chair MaxA, pt provided cues for handplacement and feet placement for squat pivot. PT is recommending return home with 24/7 assist from caregiver and SO. Goals Bed Mobility Goal Minimal Assistance Transfer Goal Minimal Assistance Days to Meet Goals 5 Frequency of Treatment Frequency Of Treatment Once a Day Treatment Plan Physical Therapy Treatment Plan Bed Mobility Training,Transfer Training,Therapeutic Exercise ,Discharge Planning Other Recommendations and Next Treatment work on transfer ability Focus Weight Bearing Status Weight Bearing Status Weight Bear as Tolerated Recommendations To Nursing Amount of Assist Needed 2 Person Assist Discharge Recommendations PT Discharge Recommendations Home with 24/7 Assist Available Equipment Needed for Home Before Could benefit from use of Discharge slideboard. Transportation Needs at Discharge Wheelchair/Cabulance,Stretcher /Ambulance
--- NOTE | 2023-03-06 16:53 | PC.NURSE ---
Pt discharged home with home health and caregiver at 1645, escorted off floor in wheelchair, accompanied by significant other, caregiver and hospital staff. IV removed, discharge teaching provided to pt, caregiver and significant other including new medications and follow up appointments. Questions answered. All belongings left with patient.
--- NOTE | 2023-03-06 18:44 | PM.DS.1 ---
History of Present Illness History of Present Illness Date Patient Seen: 03/03/23 Time Patient Seen: 06:30 Chief complaint: weakness- LLE pain Narrative: Ms. Leiva is a 72W with PMH CVA, CAD, s/p Vfib arrest, chronic pain, CKD, recurrent UTIs who presents to the hospital left leg pain. She has had a previous episode of a left psoas abscess with discitis in 2020. More recently she has had outside hospital admissions where she did have Vfib arrest and CAD. She has had multiple admissions for sepsis due to urinary source. 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 She has been diagnosed UTI on 02/15 from a UA, but urine culture resulted as no growth. She has been complaining of a few days of left leg pain. She describes this as being the anterior portion of her thing proximal to the knee to just below the hip. It does not seem to involve the joint per her report. She denies urinary symptoms. No nausea, vomiting, diarrhea. No cough or shortness of breath. No fevers/chills. No headache or neck pain. She was confused when she presented to the hospital. In the ED workup was done, vitals notable for temp afebrile, heart rate 120s, respiratory rate 20s, blood pressure 150s/70s. Sats 100% on room air. Labs reviewed by me and notable for WBC 27.2, hgb 11, plts 450. Na 134, co2 16. BUN 25, creatinine 1.33. UA with 1-5 wbcs, trace leuk esterase. Lactate 1.1, procal 4.68. Chest xray with no acute process. CT abdomen/pelvis with some fluid in pericolic gutter of uncertain significance. Femur xray with no acute process. She was ordered for antibiotics and admitted for further treatment. Discharge Providers Provider Date of admission: 03/05/23 10:00 Discharge Date: 03/06/23 Primary care physician: Jairo Powers DO Consults: 03/03/23 08:34 Consult to Occupational Therapy Evaluate & Treat Comment: Physician Instructions: Evaluate and treat Consult to Physical Therapy Evaluate & Treat Comment: Physician Instructions: Evaluate and Treat 03/03/23 09:11 Consult to Physician Routine Comment: Consulting Provider: Marilou Carpio Reason for consultation: Thickened distal quadriceps tendon with partial thickness tear - L side Has provider been notified: No 03/06/23 14:44 Consult to Home Health Routine Comment: Reason For Exam: Home Health RN, P.T, O.T. Discharge provider: Gregory Vital DO Summary Hospital Course Discharge Diagnosis: 1. SIRS positive, infectious source unclear, acute present on admission -patient with tachycardia, WBC 27, procal elevated -suspect source is infectious but etiology unclear -has had recurrent UTIs previously, but currently minimal urine symptoms and UA with low WBCs and leuk esterase -CT abdomen/pelvis with no definite source -due to leg pain underwent CT left lower extremity which was unremarkable -ortho consulted and did not feel LLE was source of infection -no back pain so doubt recurrence of discitis -no respiratory symptoms, no meningeal symptoms so doubt pneumonia, or meningitis -blood cultures and urine cultures have been negative.? Leukocytosis and procal downtrended to normal. -with Zosyn and vancomycin antibiotics.? MRSA screen negative so vanc stopped. -per patient she has had 2 ID docs in the past work her up for infections and no source of her WBC found -decided to treat with 1 more week of po levaquin 2. Acute encephalopathy, resolved -suspect secondary to medication effect and possibly infection -continue to treat infection as above -careful with medications that could cause encephalopathy 3. CHFpEF -not in exacerbation currently 4. CKD stage 3 -trend creatinine daily, improving.? Continue to follow 5. Decreased mobility with pain of LLE.? Physical therapy ongoing. Rec SNF but patient wants to return home. She is ok with HH. Ortho said quad tear is from prior tibia fracture repair and no intervention required. Hospital Course: Admitted for LLE pain and elevated WBC of 27 and procal of 20. Worked up for infectious source but none found. LLE evaluated by ortho and they are unsure where her pain is coming from and did not believe she had a septic joint. Scans did not show any abscess. Blood and urine cultures were negative. Her WBC and procal improved to normal with vanc and zosyn. MRSA screen negative so vanc stopped. SNF rec by PT but patient refused and wanted to go home with HH. Patient states she has been worked up in the past by 2 separate ID docs for elevated WBC with no source of infection. She was placed on 1 more week of po levaquin to cover infection of unknown source. Exam Vital Signs (past 8 hours): - 03/06/23 12:00 Pulse Rate 75 Respiratory Rate 18 Blood Pressure 134/70 Pulse Oximetry 96 Oxygen Flow Rate 0 Oxygen Delivery Method Room Air Oxygen Flow Rate 0 Narrative Exam Narrative: GEN: no acute distress CV: No tachycardia, no murmurs, heart sounds S1 and S2 PULM: clear bilaterally ABD: soft, nontender, nondistended, no organomegaly EXT: warm and well perfused, no fluctuance noted, no pain to palpation, no erythema or warmth noted on skin, normal passive range of motion of knee and hip joint on left. NEURL: awake, alert, oriented, no focal deficits Objective Labs 03/06/23 06:10 03/04/23 08:05 Labs: Laboratory Results - last 24 hr 03/06/23 03/06/23 06:10 06:10 WBC 8.6 RBC 2.99 L Hgb 10.0 L Hct 30.0 L MCV 100.7 H MCH 33.4 MCHC 33.2 RDW 15.1 H Plt Count 424 H Neut % (Auto) 56.7 D Lymph % (Auto) 25.5 [place] % (Auto) 9.5 Eos % (Auto) 6.9 H Baso % (Auto) 1.4 Neut # (Auto) 4900 Lymph # (Auto) 2200 [place] # (Auto) 800 Eos # (Auto) 600 H Baso # (Auto) 100 Sodium Cancelled Potassium Cancelled Chloride Cancelled Carbon Dioxide Cancelled BUN Cancelled Creatinine Cancelled Estimated GFR Cancelled BUN/Creatinine Ratio Cancelled Glucose Cancelled Calcium Cancelled Total Bilirubin Cancelled AST Cancelled ALT Cancelled Alkaline Phosphatase Cancelled C-Reactive Protein 5.3 H Total Protein Cancelled Albumin Cancelled Globulin Cancelled Albumin/Globulin Ratio Cancelled Procalcitonin 1.46 H [facility] Medical History Acute [place] Anxiety Arthritis C. difficile colitis Chronic kidney disease Chronic pain Closed left clavicular fracture Colitis Compression fracture of L1 vertebra (~07/2019) COPD (chronic obstructive pulmonary disease) CVA (cerebral vascular accident) Depression Diarrhea Displaced comminuted fracture of shaft of tibia DJD (degenerative joint disease) Fibromyalgia Fracture, tibia GI bleeding History of osteomyelitis History of recurrent UTIs HLD (hyperlipidemia) Hypertension Hypertension Insomnia Iron (Fe) deficiency anemia Left foot drop Left rib fracture Lumbar compression fracture (02/26/19) Migraines Multiple fractures Nephrolithiasis Neuropathy Numbness and tingling Osteoporosis Osteoporosis Peptic ulcer disease Pre-diabetes Radius fracture (08/30/17) Recurrent UTI Renal disease Septic shock Stage 3 chronic kidney disease Surgical History H/O: hysterectomy History of surgery Hx of appendectomy Hx of cholecystectomy Hx of elbow surgery Hx of kyphoplasty (~2013) Hx of kyphoplasty (04/28/19) Hx of kyphoplasty (07/28/19) Hx of tonsillectomy Status post epidural steroid injection (03/25/19) Family History Mother No known health problems COPD (chronic obstructive pulmonary disease) Father No known health problems Social History household members: significant other and caregiver Smoking Status: Former smoker alcohol intake: current Discharge Plan Discharge Plan Patient Disposition: Home Provider Discharge Comment: You had an elevated WBC but no source was found. Your WBC became normal with antibiotics so I am having you finish 1 more week of oral antibiotics at home. Discharge orders & Medications Prescriptions: New levofloxacin 750 mg tablet 750 mg PO DAILY 7 Days Qty: 7 0RF Continued aspirin [Adult Aspirin Regimen] 81 mg tablet,delayed release (DR/EC) 81 mg PO DAILY Qty: 90 2RF atorvastatin 40 mg tablet 40 mg PO DAILY Qty: 90 2RF metoprolol tartrate 25 mg tablet 12.5 mg PO BID Qty: 90 1RF Rx Instructions: Take 1/2 a tablet twice a day for a total of 25 mg per day pantoprazole [Protonix] 40 mg tablet,delayed release (DR/EC) 40 mg PO DAILY Qty: 90 3RF bisacodyl [Dulcolax (bisacodyl)] 10 mg suppository 10 mg MI DAILY PRN (Reason: Constipation) polyethylene glycol 3350 [Miralax] 17 gram/dose powder 17 g PO DAILY diclofenac sodium 1 % gel 2 g topical QID PRN (Reason: Rash) Rx Instructions: to leg gabapentin 300 mg capsule 900 mg PO BEDTIME Patient Comments: TAKE 1 CAPSULE BY MOUTH DAILY IN THE MORNING, 1 CAPSULE DAILY IN THE AFTERNOON, AND TAKE 3 CAPSULES NIGHTLY AT BEDTIME, FOR A TOTAL DAILY DOSE OF 1500 MG carisoprodol 350 mg tablet 350 mg PO TID Qty: 60 0RF alendronate [Fosamax] 70 mg tablet 70 mg PO QWEEK Qty: 12 3RF gabapentin 300 mg capsule 300 mg PO BID Rx Instructions: takes 300mg BID morning and afternoon methocarbamol 500 mg tablet 500 mg PO BID oxycodone 10 mg tablet 10 mg PO TID PRN (Reason: pain) Qty: 30 0RF Follow up/Referrals: Jairo Powers, [Primary Care Provider] - 03/15/23 10:30 am (Appt:03/15 @ 10:[address] Powers please arrive 15 min prior to scheduled appointment time ) Visit Report/Discharge Packet Stand Alone Forms: Patient Portal/API, Stroke Signs & Symptoms Discharge Data Primary Care Provider: Jairo Powers Discharges patient from system. Discharge Date/Time: 03/06/23 16:57 Quality VTE Deep Vein Thrombosis/Pulmonary Embolism Present on Admission: No
== END 2023-03-06 16:57 | disposition home health service (06) | DRG 71 ==
LOC: ED 03-03 05:57 → AC 03-03 05:58
PROVIDERS: Neuromusculoskeletal Medicine, Sports Medicine; Student in an Organized Health Care Education/Training Program; Admitting Provider Internal Medicine; Emergency Provider Emergency Medicine; PCP Family Medicine; Visit Provider Internal Medicine
DX: G93.40 Encephalopathy, unspecified (principal); I13.0 Hypertensive heart and chronic kidney disease with heart failure and stage 1 through stage 4 chronic kidney disease, or unspecified chronic kidney disease; R65.10 Systemic inflammatory response syndrome (SIRS) of non-infectious origin without acute organ dysfunction; I50.32 Chronic diastolic (congestive) heart failure; N18.30 Chronic kidney disease, stage 3 unspecified; E78.5 Hyperlipidemia, unspecified; G89.18 Other acute postprocedural pain; Z87.891 Personal history of nicotine dependence
CPT/HCPCS: 36415; 71045; 73552; 73701; 74177; 80048; 80053; 81001; 83605; 84145; 85007; 85025; 86140; 87040; 87086; 87797; 96365; 96366; 96372; 96375; 96376; 97161; 97165; 97530; 99284; 99285; G0378; J1170; J1650; J2543; Q9967

== ENCOUNTER 2023-03-15 11:31 | Day surgery (SDC) | payer MEDICARE, MEDICAID, SELFPAY ==
[2022-07-22 07:16] VITALS: RESP 28
[2022-07-22 14:33] VITALS: PULSE 127; RESP 38; O2SAT 100
[2023-03-03 06:00] VITALS: BMI 19.1
[2023-03-15] VITALS (7 sets, daily range): BP systolic 122–152; BP diastolic 57–82; PULSE 74–101; RESP 12–18; TEMP 36.1–36.4; O2SAT 96–100; BMI 19.1
[2023-03-15 12:28] LABS: Add Manual Diff / Slide Review NO; Basophils Absolute Auto 200 /uL (0-100); Basophils Percent Auto 1.4 % (0-2); Eosinophils Absolute Auto 400 /uL (0-450); Eosinophils Percent Auto 2.8 % (2-4); Hemoglobin 11.9 g/dL (12.0-16.0); Lymphocytes Absolute Auto 2700 /uL (1100-4500); Lymphocytes Percent Auto 19.5 % (25-40); Mean Corpuscular HGB Conc 33.2 % (30-36); Mean Corpuscular Hemoglobin 32.9 PG (26-34); Mean Corpuscular Volume 99.1 fL (80-100); Monocytes Absolute Auto 800 /uL (0-900); Monocytes Percent Auto 5.6 % (3-14); Neutrophils Absolute Auto 9700 /uL (1500-7000); Neutrophils Percent Auto 70.7 % (50-75); Platelet Count 726 X10^3/uL (150-400); Red Blood Cell Count 3.63 X10^6/uL (4.0-5.2); Red Cell Distribution Width 14.5 % (11.6-14.8); White Blood Cell Count 13.7 X10^3/uL (4.5-11.0)
[2023-03-15] MEDS: LACTATED RINGERS 1,000 ML 42 ML IV (12:38)
[2023-03-15 12:55] LABS: C-Reactive Protein Quant < 0.5 mg/dL (<1.0)
--- NOTE | 2023-03-15 12:59 | PM.PREOP ---
Pre-operative Note Interval Note History & Physical reviewed/Exam performed by Physician: Yes Changes to H&P: No
[2023-03-15 13:09] LABS: Ethanol (ETOH) < 10 mg/dL
[2023-03-15] MEDS: CEFAZOLIN 2 GM/100 ML PREMIX 100 ML IV (13:12)
--- NOTE | 2023-03-15 13:33 | SUR.OPER ---
Addendum entered by Elina Escobar R.N. 03/15/23 13:33: blanket bump under left hip, bath blankets under left leg Original Note: Supine on padded OR bed, head on pillow, arms secured on padded arm boards at <90 degrees abduction, legs uncrossed, safety belt at thigh, tape over blanket over lower legs.
[2023-03-15] MEDS: BUPIVACAINE 0.25% W/ EPI 30 ML VIAL 60 ML INJ (13:48)
--- NOTE | 2023-03-15 14:16 | SUR.PHASEI ---
pt co low back pain... tingling to LLE
--- NOTE | 2023-03-15 14:22 | SUR.PHASEI ---
pt refused ice pack
[2023-03-15] MEDS: OXYCODONE IR 5 MG TABLET PO ×2 (14:33→14:54)
--- NOTE | 2023-03-15 14:40 | PM.OP.1 ---
Operative Date/Time/Diagnoses Date of procedure: 03/15/23 Time of procedure: 14:40 Pre-op diagnosis: Painful orthopedic hardware left ankle Post-op diagnosis: same Procedure & Clinicians Procedure: Removal of hardware left ankle plate and 6 screws D code 24645 Same procedure as scheduled: Yes Indications: Patient is a 72-year-old female that a history of multiple lower extremity traumatic injuries. She has retained distal fibular hook plate and screws in her left ankle and pain around the hardware. She is been indicated for removal. The risks and benefits of the procedure have been discussed with the patient and given the opportunity to ask questions. The risks of surgery include but are not limited to infection, malunion, nonunion, persistence of pain, damage to nerves and blood vessels, posttraumatic arthritis, DVT, PE, cardiopulmonary complications and . No guarantees were made. The patient expressed a thorough understanding of the risks and benefits of surgery and has elected to proceed. Consent was signed. Surgeon: Marilou Carpio Click Yes if Unassisted: Yes Anesthesia Type: General and Local Operative Notes Findings: Healed fibula fracture. Six screws and Arthrex distal fibular hook plate removed. Closure Type: primary Specimen(s): none sent Estimated Blood Loss (mL): 5 Blood products transfused: none Tourniquet time (min): 24 Procedure in detail: Patient is seen in the preoperative area the site of surgery marked informed consent confirmed. She was brought back to the operating room by the anesthesia team positioned supine on the table. Anesthesia was administered. A well-padded thigh tourniquet was placed. An ipsilateral thigh bump was placed. The left lower extremity was prepped and draped in the standard sterile fashion a formal time-out procedure was performed confirming the patient's side and site of surgery administration of appropriate preoperative antibiotic. All were in agreement. Attention turned to the left lower extremity the Esmarch was used for exsanguination tourniquet elevated on the thigh to 250 mmHg. Previous incision was taken down through the skin subcutaneous tissue to the level of the plate. The soft tissues were dissected off the plate the screw flatbed company driver and hardware removal sets were used to remove the screws. The most proximal screw was stripped and therefore the broken hardware removal set was used to remove this screw. Once that was completed the plate was removed and the bone was rongeured smooth. Tourniquet was released and hemostasis was achieved. The wound was closed with 2-0 Vicryl 4-0 Monocryl and 3-0 nylon suture. [place] with epinephrine was used as local anesthetic. 30 cc. A sterile dressing with Xeroform gauze and Tegaderm and an Albaro wrap was applied. Drapes removed patient was woken from anesthesia taken to recovery room in good condition there no immediate complications advised procedure. All counts were correct. Complications: none Post-operative Condition: stable Disposition: PACU Plan for aftercare: Weightbear as tolerated and soft dressing. Keep dressing clean dry intact to follow up for suture removal. Patient takes chronic pain medication. She is trying to wean off. Asks for oxycodone 5 mg rather than her usual 10. She will be reestablishing care with a primary doctor next week but they are out of town week--and she is in transition. I have permission from her recent primary care to provide pain medication postoperatively in the interim.
== END 2023-03-15 15:19 | disposition home or self-care (01) ==
PROVIDERS: PCP Family Medicine; Referring Provider Orthopaedic Surgery Foot and Ankle Surgery; Visit Provider Orthopaedic Surgery Foot and Ankle Surgery
PROC: (CPT 20680; principal; 2023-03-15 13:15)
DX: T84.84XA Pain due to internal orthopedic prosthetic devices, implants and grafts, initial encounter (principal)
CPT/HCPCS: 20680; 80320; 85025; 86140; J0690; J1100; J2405; J2704; J3010

== ENCOUNTER 2023-05-27 15:04 | Emergency (ER) | payer MEDICARE, MEDICAID, SELFPAY ==
[2022-07-22 07:16] VITALS: RESP 28
[2022-07-22 14:33] VITALS: PULSE 127; RESP 38; O2SAT 100
[2023-03-03 06:00] VITALS: BMI 19.1
[2023-05-27] VITALS (8 sets, daily range): BP systolic 110–153; BP diastolic 60–71; PULSE 79–88; RESP 14–16; TEMP 36.9; O2SAT 98–100; BMI 19.2
[2023-05-27 16:41] LABS: Appearance Urine UA CLEAR; Bilirubin Urine UA NEGATIVE (NEGATIVE); Color Urine UA YELLOW; Glucose Urine UA NEGATIVE (Negative); Ketones Urine UA NEGATIVE (NEGATIVE); Leukocyte Esterase Urine UA 1+ (NEGATIVE); Nitrite Urine UA NEGATIVE (Negative); Occult Blood Urine UA NEGATIVE (Negative); Protein Urine UA NEGATIVE (Negative); Specific Gravity Urine UA <=1.005 (1.000-1.035); Urobilinogen Urine UA 0.2 E.U./dL (0.2)
[2023-05-27 16:47] LABS: Bacteria Urine Few (2-10); Culture Indicated Urine Specimen Cultured; RBC Urine None Seen (0-5/HPF); Squamous Epithelial Cell Urine 1-5 /HPF (0-5/HPF); Transitional Epi Cells Urine 1-5/HPF (0-5/HPF); WBC Urine 5-10/HPF (0-5/HPF)
--- NOTE | 2023-05-27 16:57 | ED.FEMALEGU ---
HPI - Female Genitourinary <Tj Mares PA-C - Last Filed: 05/27/23 18:55> General Chief complaint: Urogenital-Female Stated complaint: UTI Time Seen by Provider: 05/27/23 15:40 Source: patient and EMS Mode of arrival: EMS History of Present Illness HPI Narrative: 72-year-old female with past medical history hypertension, hyperlipidemia, CAD, recurrent UTI, COPD, stage 3 chronic kidney disease, GERD, osteoarthritis, chronic opioid use presents to the ED with 2 weeks of urinary symptoms. Patient complains of dysuria, frequent urination, foul-smelling urine. Patient also endorses some nausea, denies vomiting. Patient also has had several bouts of diarrhea recently. Patient states that she has been nauseous, unable to eat very much or drink very much. Patient usually has a caregiver for ADLs, however her caregiver has been out of town for the last 2 weeks. Her caregiver is back today to take care of her. Patient has a history of recurrent UTIs. Since her caregiver was not in town, she was unable to go to her PCP Dr. Cantu, therefore he prescribed her some empiric antibiotics. Patient completed the week-long course of cephalexin, however she still has urinary symptoms including dysuria and urinary frequency. Related Data Home Medications Medication Instructions Recorded Confirmed bisacodyl 10 mg rectal suppository 10 mg MI DAILY PRN Constipation 08/21/22 04/29/23 (Dulcolax (bisacodyl)) polyethylene glycol 3350 17 17 g PO DAILY 08/21/22 04/29/23 gram/dose oral powder (Miralax) diclofenac sodium 1 % topical gel 2 g topical QID PRN Rash 02/15/23 04/29/23 Previous Rx's Medication Instructions Recorded pantoprazole 40 mg tablet,delayed 40 mg PO DAILY #90 tabs 09/14/22 release (Protonix) aspirin 81 mg tablet,delayed 81 mg PO DAILY #90 tabs 12/04/22 release (Adult Aspirin Regimen) atorvastatin 40 mg tablet 40 mg PO DAILY #90 tabs 12/04/22 alendronate 70 mg tablet (Fosamax) 70 mg PO QWEEK #12 tabs 01/17/23 metoprolol tartrate 25 mg tablet 12.5 mg (1/2 x 25 mg) PO BID #90 02/15/23 tabs hydroxyzine pamoate 25 mg capsule 25 mg PO QID PRN nausea and 03/15/23 vomiting, spasms #30 caps carisoprodol 350 mg tablet 350 mg PO TID PRN muscle pain #90 03/27/23 tabs gabapentin 300 mg capsule 600 mg (2 x 300 mg) PO TID #180 04/29/23 caps oxycodone 10 mg tablet 10 mg PO QID PRN pain #120 tabs 04/29/23 oxycodone 10 mg tablet 10 mg PO QID PRN pain #120 tabs 04/29/23 oxycodone 10 mg tablet 10 mg PO QID PRN pain #120 tabs 04/29/23 cephalexin 500 mg capsule 500 mg PO TID UTI #21 caps 05/20/23 sulfamethoxazole 800 1 tab PO Q12H 10 days #20 tabs 05/27/23 mg-trimethoprim 160 mg tablet (Bactrim DS) Allergies Allergy/AdvReac Type Severity Reaction Status Date / Time furosemide [From Lasix] Allergy Intermediate Rash Verified 05/27/23 15:31 tramadol [TRAMADOL] Allergy Unknown Verified 05/27/23 15:31 amitriptyline [AMITRIPTYLINE] AdvReac Intermediate Confusion Verified 05/27/23 15:31 Review of Systems <Tj Mares PA-C - Last Filed: 05/27/23 18:55> Constitutional Constitutional: Denies chills, Denies fatigue, Denies fever(s), Denies frequent falls, Denies lethargy, Reports poor appetite and Denies weakness Eyes Eyes: Denies change in vision, Denies eye discharge, Denies irritation and Denies loss of vision ENT Ears, Nose, Mouth, and Throat: Denies change in voice, Denies dizziness, Denies neck pain, Denies sore throat and Denies throat swelling Cardiovascular Cardiovascular: Denies chest pain, Denies irregular heart rhythm, Denies lightheadedness, Denies palpitations, Denies dyspnea, Denies dyspnea on exertion and Denies orthopnea Respiratory Respiratory: Denies cough, Denies dyspnea, Denies dyspnea on exertion and Denies wheezing Gastrointestinal Gastrointestinal: Denies abdominal pain, Denies change in bowel habits, Reports diarrhea, Reports nausea and Denies vomiting Genitourinary Genitourinary: Reports dysuria and Reports urinary urgency Comments: Urinary frequency Musculoskeletal Musculoskeletal: Denies neck pain and Denies numbness Integumentary/Breasts Skin/Breast: Denies pruritus, Denies erythema, Denies rash and Denies wounds Neurologic Neurologic: Denies behavioral changes, Denies confusion, Denies dizziness, Denies frequent falls, Denies loss of vision, Denies numbness and Denies weakness Psychiatric Psychiatric: Denies anxiety, Denies behavioral changes, Denies confusion, Denies depression, Denies homicidal ideation and Denies suicidal ideation Endocrine Endocrine: Denies fatigue, Denies flushing and Denies palpitations Hematologic/Lymphatic Hematologic/Lymphatic: Denies easy bruising Allergic/Immunologic Allergic/Immunologic: Denies urticaria, Denies throat swelling and Denies wheezing Patient History <Tj Mares PA-C - Last Filed: 05/27/23 18:55> Medical History Age-related osteoporosis without current pathological fracture History of vertebral compression fracture GERD without esophagitis Chronic, continuous use of opioids Primary osteoarthritis involving multiple joints Chronic low back pain Stage 3b chronic kidney disease (CKD) Mixed hyperlipidemia Essential hypertension Cerebrovascular disease Coronary artery disease Recurrent UTI Displaced comminuted fracture of shaft of tibia Acute DC Septic shock Left rib fracture Closed left clavicular fracture Iron (Fe) deficiency anemia Nephrolithiasis Peptic ulcer disease History of osteomyelitis Fracture, tibia Left foot drop Numbness and tingling Lumbar compression fracture (02/26/19) HLD (hyperlipidemia) C. difficile colitis Colitis Anxiety Insomnia Arthritis DJD (degenerative joint disease) Depression Fibromyalgia Migraines Multiple fractures Osteoporosis Radius fracture (08/30/17) Neuropathy History of recurrent UTIs Renal disease Hypertension Chronic pain GI bleeding Surgical History Hx of kyphoplasty (07/28/19) Hx of kyphoplasty (04/28/19) Hx of kyphoplasty (~2013) Hx of elbow surgery Hx of appendectomy Hx of cholecystectomy Status post epidural steroid injection (03/25/19) H/O: hysterectomy Hx of tonsillectomy History of surgery Family History Mother No known health problems COPD (chronic obstructive pulmonary disease) Father No known health problems alcohol intake frequency: holidays/special occasions only Substance Use Type: does not use and former substance user Exam <Tj Mares PA-C - Last Filed: 05/27/23 18:55> Narrative Exam Narrative: Const General:?cooperative, healthy appearing and comfortable HENID Head:?normal to inspection Ears:?hearing grossly normal bilaterally Nose:?external nose normal Face and sinus:?normal facial exam and sinuses nontender Mouth:?oral mucosae normal Throat:?posterior oropharynx normal Eyes General:?appearance normal, both eyes and all related structures Neck Neck:?normal visual inspection and no lymphadenopathy noted Resp Effort & Inspection:?normal respiratory effort Auscultation:?clear to auscultation bilaterally Cardio Rate:?regular rate Rhythm:?regular rhythm GI Abdomen is soft, nondistended, nontender to palpation. Neuro General:?patient alert, patient awake and patient oriented x3 Initial Vital Signs Initial Vital Signs: Vital Signs Temperature 98.4 F 05/27/23 15:31 Pulse Rate 88 05/27/23 15:31 Respiratory Rate 16 05/27/23 15:31 Blood Pressure 110/64 05/27/23 15:31 Pulse Oximetry 98 05/27/23 15:31 Oxygen Delivery Method Room Air 05/27/23 15:31 <Collin Guzman DO - Last Filed: 05/30/23 18:00> Initial Vital Signs Initial Vital Signs: Vital Signs Temperature 98.4 F 05/27/23 15:31 Pulse Rate 88 05/27/23 15:31 Respiratory Rate 16 05/27/23 15:31 Blood Pressure 110/64 05/27/23 15:31 Pulse Oximetry 98 05/27/23 15:31 Oxygen Delivery Method Room Air 05/27/23 15:31 Course <Tj Mares PA-C - Last Filed: 05/27/23 18:55> Orders Ordered: Discontinued Medications Acetaminophen (Acetaminophen 325 Mg Tablet) 975 mg PO NOW ONE Stop: 05/27/23 17:35 Last Admin: 05/27/23 17:44 Dose: 975 mg Documented By: KLS Sodium Chloride (Normal Saline 0.9%) 1,000 mls @ 1,000 mls/hr IV BOLUS ONE Stop: 05/27/23 17:31 Last Infusion: 05/27/23 18:34 Dose: Infused Documented By: Admin: 05/27/23 17:10 Dose: 1,000 mls/hr Documented By: BIBIANA Ceftriaxone Sodium 1,000 mg/ (Sodium Chloride) 100 mls @ 200 mls/hr IV NOW ONE Stop: 05/27/23 17:18 Last Infusion: 05/27/23 18:33 Dose: Infused Documented By: Admin: 05/27/23 17:47 Dose: 200 mls/hr Documented By: NIA Oxycodone HCl (Oxycodone Ir 5 Mg Tablet) 10 mg PO NOW ONE Stop: 05/27/23 17:14 Last Admin: 05/27/23 17:31 Dose: 10 mg Documented By: NIA Vital Signs Vital signs: Vital Signs - 8 hr 05/27/23 15:31 05/27/23 17:12 05/27/23 17:13 Temperature 98.4 F Pulse Rate 88 85 Respiratory Rate 16 Blood Pressure 110/64 152/71 H Pulse Oximetry 98 100 Oxygen Delivery Method Room Air 05/27/23 17:13 05/27/23 17:30 05/27/23 17:34 Temperature Pulse Rate 84 82 79 Respiratory Rate 16 Blood Pressure Pulse Oximetry 100 100 100 Oxygen Delivery Method Room Air 05/27/23 17:34 05/27/23 18:00 05/27/23 18:00 Temperature Pulse Rate 80 Respiratory Rate 14 Blood Pressure 153/67 H 137/67 Pulse Oximetry 100 Oxygen Delivery Method Room Air 05/27/23 18:30 05/27/23 18:30 Temperature Pulse Rate 82 Respiratory Rate Blood Pressure 127/60 Pulse Oximetry 100 Oxygen Delivery Method Room Air <Collin Guzman DO - Last Filed: 05/30/23 18:00> Orders Ordered: Discontinued Medications Acetaminophen (Acetaminophen 325 Mg Tablet) 975 mg PO NOW ONE Stop: 05/27/23 17:35 Last Admin: 05/27/23 17:44 Dose: 975 mg Documented By: NIA Sodium Chloride (Normal Saline 0.9%) 1,000 mls @ 1,000 mls/hr IV BOLUS ONE Stop: 05/27/23 17:31 Last Infusion: 05/27/23 18:34 Dose: Infused Documented By: Admin: 05/27/23 17:10 Dose: 1,000 mls/hr Documented By: BIBIANA Ceftriaxone Sodium 1,000 mg/ (Sodium Chloride) 100 mls @ 200 mls/hr IV NOW ONE Stop: 05/27/23 17:18 Last Infusion: 05/27/23 18:33 Dose: Infused Documented By: Admin: 05/27/23 17:47 Dose: 200 mls/hr Documented By: NIA Oxycodone HCl (Oxycodone Ir 5 Mg Tablet) 10 mg PO NOW ONE Stop: 05/27/23 17:14 Last Admin: 05/27/23 17:31 Dose: 10 mg Documented By: NIA Vital Signs Vital signs: Vital Signs - 8 hr 05/27/23 15:31 05/27/23 17:12 05/27/23 17:13 Temperature 98.4 F Pulse Rate 88 85 Respiratory Rate 16 Blood Pressure 110/64 152/71 H Pulse Oximetry 98 100 Oxygen Delivery Method Room Air 05/27/23 17:13 05/27/23 17:30 05/27/23 17:34 Temperature Pulse Rate 84 82 79 Respiratory Rate 16 Blood Pressure Pulse Oximetry 100 100 100 Oxygen Delivery Method Room Air 05/27/23 17:34 05/27/23 18:00 05/27/23 18:00 Temperature Pulse Rate 80 Respiratory Rate 14 Blood Pressure 153/67 H 137/67 Pulse Oximetry 100 Oxygen Delivery Method Room Air 05/27/23 18:30 05/27/23 18:30 Temperature Pulse Rate 82 Respiratory Rate Blood Pressure 127/60 Pulse Oximetry 100 Oxygen Delivery Method Room Air MDM - Female Genitourinary <Tj Mares PA-C - Last Filed: 05/27/23 18:55> Lab Data 05/27/23 16:44 05/27/23 18:13 Labs: Lab Results 05/27/23 05/27/23 05/27/23 Range/Units 16:17 16:44 18:13 WBC 7.3 (4.5-11.0) X10^3/uL RBC 3.62 L (4.0-5.2) X10^6/uL Hgb 11.8 L (12.0-16.0) g/dL Hct 35.0 L (36-46) % MCV 96.7 (80-100) fL MCH 32.7 (26-34) PG MCHC 33.8 (30-36) % RDW 17.6 H (11.6-14.8) % Plt Count 855 H (150-400) X10^3/uL Neut % (Auto) 65.9 (50-75) % Lymph % (Auto) 26.8 (25-40) % [place] % (Auto) 3.5 (3-14) % Eos % (Auto) 2.4 (2-4) % Baso % (Auto) 1.4 (0-2) % Neut # (Auto) 4800 (8930-9014) /uL Lymph # (Auto) 2000 (4444-6940) /uL [place] # (Auto) 300 (0-900) /uL Eos # (Auto) 200 (0-450) /uL Baso # (Auto) 100 (0-100) /uL RBC Morphology See below Anisocytosis 1+ H Macrocytosis 1+ H Sodium 130 L (137-145) mmol/L Potassium 3.9 (3.4-5.1) mmol/L Chloride 102 (98-107) mmol/L Carbon Dioxide 16 L (22-32) mmol/L BUN 24 H (7-17) mg/dL Creatinine 0.86 (0.52-1.04) mg/dL Estimated GFR > 60 (>60) mL/min BUN/Creatinine Ratio 27.9 H (6-22) Glucose 79 L (80-110) mg/dL Calcium 8.1 L (8.4-10.2) mg/dL Total Bilirubin 0.4 (0.2-1.3) mg/dL AST 31 (14-36) IU/L ALT 13 (<35) IU/L Alkaline Phosphatase 161 H (38-126) U/L Total Protein 6.4 (6.3-8.2) g/dL Albumin 2.9 L (3.5-5.0) g/dL Globulin 3.5 (1.7-4.1) g/dL Albumin/Globulin Ratio 0.8 L (1.0-2.8) Urine Color Yellow Urine Appearance Clear Urine pH 7.0 (4.5-8.0) Ur Specific [place] <=1.005 (1.000-1.035) Urine Protein Negative (Negative) Urine Glucose (UA) Negative (Negative) g/dL Urine Ketones Negative (NEGATIVE) Urine Occult Blood Negative (Negative) Urine Nitrate Negative (Negative) Urine Bilirubin Negative (NEGATIVE) Urine Urobilinogen 0.2 (0.2) E.U./dL Ur Leukocyte Esterase 1+ H (NEGATIVE) Urine RBC None seen (0-5/HPF) Urine WBC 5-10/hpf H (0-5/HPF) Ur Squamous Epith Cells 1-5 /hpf (0-5/HPF) Ur Transition Epith Cell 1-5/hpf (0-5/HPF) Urine Bacteria Few (2-10) H (None) Ur Culture Indicated? Specimen cultured Urine Dip Bedside Urine Glucose Negative Bedside Urine Bilirubin - Negative Bedside Urine Ketone - Negative Urine Specific [place] 1.010 Bedside Urine Occult Blood - Negative Bedside Urine pH 6.0 Bedside Urine Protein - Negative Bedside Urine Urobilinogen - Negative Bedside Urine Nitrite - Negative Bedside Urine Leukocytes + 70 Esterase MDM Narrative Medical decision making narrative: 72-year-old female with past medical history hypertension, hyperlipidemia, CAD, recurrent UTI, COPD, stage 3 chronic kidney disease, GERD, osteoarthritis, chronic opioid use presents to the ED with 2 weeks of urinary symptoms. Concern for UTI versus pyelonephritis versus dehydration versus electrolyte derangements versus other. Will obtain labs, UA. Will give IV fluids. Will reassess. Patient complained of her chronic back pain, had not taken her usual dose of oxycodone at home. Gave patient 10 mg of oxycodone, Tylenol. UA was positive for a UTI. Patient given a dose of ceftriaxone in the ED. Prescribed Bactrim. Recommend follow-up with PCP as soon as possible. ED return precautions were discussed with patient. Patient verbalized understanding. Medical records reviewed: Yes <Collin Guzman DO - Last Filed: 05/30/23 18:00> Lab Data Labs: Lab Results 05/27/23 05/27/23 05/27/23 Range/Units 16:17 16:44 18:13 WBC 7.3 (4.5-11.0) X10^3/uL RBC 3.62 L (4.0-5.2) X10^6/uL Hgb 11.8 L (12.0-16.0) g/dL Hct 35.0 L (36-46) % MCV 96.7 (80-100) fL MCH 32.7 (26-34) PG MCHC 33.8 (30-36) % RDW 17.6 H (11.6-14.8) % Plt Count 855 H (150-400) X10^3/uL Neut % (Auto) 65.9 (50-75) % Lymph % (Auto) 26.8 (25-40) % [place] % (Auto) 3.5 (3-14) % Eos % (Auto) 2.4 (2-4) % Baso % (Auto) 1.4 (0-2) % Neut # (Auto) 4800 (9596-3679) /uL Lymph # (Auto) 2000 (9268-3159) /uL [place] # (Auto) 300 (0-900) /uL Eos # (Auto) 200 (0-450) /uL Baso # (Auto) 100 (0-100) /uL RBC Morphology See below Anisocytosis 1+ H Macrocytosis 1+ H Sodium 130 L (137-145) mmol/L Potassium 3.9 (3.4-5.1) mmol/L Chloride 102 (98-107) mmol/L Carbon Dioxide 16 L (22-32) mmol/L BUN 24 H (7-17) mg/dL Creatinine 0.86 (0.52-1.04) mg/dL Estimated GFR > 60 (>60) mL/min BUN/Creatinine Ratio 27.9 H (6-22) Glucose 79 L (80-110) mg/dL Calcium 8.1 L (8.4-10.2) mg/dL Total Bilirubin 0.4 (0.2-1.3) mg/dL AST 31 (14-36) IU/L ALT 13 (<35) IU/L Alkaline Phosphatase 161 H (38-126) U/L Total Protein 6.4 (6.3-8.2) g/dL Albumin 2.9 L (3.5-5.0) g/dL Globulin 3.5 (1.7-4.1) g/dL Albumin/Globulin Ratio 0.8 L (1.0-2.8) Urine Color Yellow Urine Appearance Clear Urine pH 7.0 (4.5-8.0) Ur Specific [place] <=1.005 (1.000-1.035) Urine Protein Negative (Negative) Urine Glucose (UA) Negative (Negative) g/dL Urine Ketones Negative (NEGATIVE) Urine Occult Blood Negative (Negative) Urine Nitrate Negative (Negative) Urine Bilirubin Negative (NEGATIVE) Urine Urobilinogen 0.2 (0.2) E.U./dL Ur Leukocyte Esterase 1+ H (NEGATIVE) Urine RBC None seen (0-5/HPF) Urine WBC 5-10/hpf H (0-5/HPF) Ur Squamous Epith Cells 1-5 /hpf (0-5/HPF) Ur Transition Epith Cell 1-5/hpf (0-5/HPF) Urine Bacteria Few (2-10) H (None) Ur Culture Indicated? Specimen cultured Urine Dip Bedside Urine Glucose Negative Bedside Urine Bilirubin - Negative Bedside Urine Ketone - Negative Urine Specific [place] 1.010 Bedside Urine Occult Blood - Negative Bedside Urine pH 6.0 Bedside Urine Protein - Negative Bedside Urine Urobilinogen - Negative Bedside Urine Nitrite - Negative Bedside Urine Leukocytes + 70 Esterase Discharge Plan Departure Patient Disposition: Home Clinical Impression: Urinary tract infection Qualifiers: Urinary tract infection type: acute cystitis Hematuria presence: without hematuria Qualified Code(s): N30.00 - Acute cystitis without hematuria Instructions: DI for Urinary Tract Infection (UTI) Activity Restrictions/Additional Instructions: You were evaluated in the ED today for urinary symptoms. Your urine did still show a urinary tract infection. You are being prescribed a different antibiotic. Please complete the antibiotics as prescribed. Please follow-up with Dr. Cantu as soon as possible. Return to the ED if you have worsening symptoms, persistent vomiting, fever, chills. Prescriptions: New sulfamethoxazole-trimethoprim [Bactrim DS] 800-160 mg tablet 1 tab PO Q12H 10 Days Qty: 20 0RF No Action aspirin [Adult Aspirin Regimen] 81 mg tablet,delayed release (DR/EC) 81 mg PO DAILY Qty: 90 2RF atorvastatin 40 mg tablet 40 mg PO DAILY Qty: 90 2RF metoprolol tartrate 25 mg tablet 12.5 mg PO BID Qty: 90 1RF Rx Instructions: Take 1/2 a tablet twice a day for a total of 25 mg per day cephalexin 500 mg capsule 500 mg PO TID Qty: 21 0RF pantoprazole [Protonix] 40 mg tablet,delayed release (DR/EC) 40 mg PO DAILY Qty: 90 3RF bisacodyl [Dulcolax (bisacodyl)] 10 mg suppository 10 mg MI DAILY PRN (Reason: Constipation) polyethylene glycol 3350 [Miralax] 17 gram/dose powder 17 g PO DAILY diclofenac sodium 1 % gel 2 g topical QID PRN (Reason: Rash) Rx Instructions: to leg oxycodone 10 mg tablet 10 mg PO QID PRN (Reason: pain) Qty: 120 0RF oxycodone 10 mg tablet 10 mg PO QID PRN (Reason: pain) Qty: 120 0RF oxycodone 10 mg tablet 10 mg PO QID PRN (Reason: pain) Qty: 120 0RF gabapentin 300 mg capsule 600 mg PO TID Qty: 180 5RF Rx Instructions: takes 300mg BID morning and afternoon alendronate [Fosamax] 70 mg tablet 70 mg PO QWEEK Qty: 12 3RF carisoprodol 350 mg tablet 350 mg PO TID PRN (Reason: muscle pain) Qty: 90 5RF hydroxyzine pamoate 25 mg capsule 25 mg PO QID PRN (Reason: nausea and vomiting, spasms) Qty: 30 1RF Referrals: Ricardo Cantu MD [Primary Care Provider] - Stand Alone Forms: Patient Portal/API ED Sign-out <Collin Guzman, - Last Filed: 05/30/23 18:00> [facility] Dr Guzman Co-Sign Statement: I was available for consultation during this patient's emergency department visit. This chart is signed by myself for administrative purposes only. I did not have direct contact with this patient during this visit. They were seen independently by the APC.
[2023-05-27 17:06] LABS: Add Manual Diff / Slide Review NO; Basophils Absolute Auto 100 /uL (0-100); Basophils Percent Auto 1.4 % (0-2); Eosinophils Absolute Auto 200 /uL (0-450); Eosinophils Percent Auto 2.4 % (2-4); Hemoglobin 11.8 g/dL (12.0-16.0); Lymphocytes Absolute Auto 2000 /uL (1100-4500); Lymphocytes Percent Auto 26.8 % (25-40); Mean Corpuscular HGB Conc 33.8 % (30-36); Mean Corpuscular Hemoglobin 32.7 PG (26-34); Mean Corpuscular Volume 96.7 fL (80-100); Monocytes Absolute Auto 300 /uL (0-900); Monocytes Percent Auto 3.5 % (3-14); Neutrophils Absolute Auto 4800 /uL (1500-7000); Neutrophils Percent Auto 65.9 % (50-75); Platelet Count 855 X10^3/uL (150-400); Red Blood Cell Count 3.62 X10^6/uL (4.0-5.2); Red Cell Distribution Width 17.6 % (11.6-14.8); White Blood Cell Count 7.3 X10^3/uL (4.5-11.0)
[2023-05-27] MEDS: SODIUM CHLORIDE 0.9% 1,000 ML 1000 ML IV (17:10)
[2023-05-27 17:18] LABS: Anisocytosis 1+; Macrocytosis 1+
[2023-05-27] MEDS: OXYCODONE IR 5 MG TABLET 10 MG PO (17:31)
[2023-05-27] MEDS: ACETAMINOPHEN 325 MG TABLET 975 MG PO (17:44)
[2023-05-27] MEDS: cefTRIAXone 1,000 MG in SODIUM CHLORIDE 0.9% 100 ML 200 MG IV (17:47)
--- NOTE | 2023-05-27 18:40 | PC.NURSE ---
Tia (patients caregiver) was called and is on her way to pharmacy picking technician patient from ER.
[2023-05-27 18:43] LABS: Alanine Aminotransferase 13 IU/L (<35); Albumin 2.9 g/dL (3.5-5.0); Albumin Globulin Ratio 0.8 (1.0-2.8); Alkaline Phosphatase 161 U/L (38-126); Aspartate Aminotransferase 31 IU/L (14-36); BUN Creatinine Ratio 27.9 (6-22); Bilirubin Total 0.4 mg/dL (0.2-1.3); Blood Urea Nitrogen 24 mg/dL (7-17); Calcium 8.1 mg/dL (8.4-10.2); Carbon Dioxide 16 mmol/L (22-32); Chloride 102 mmol/L (98-107); Estimated Glomerular Filt Rate > 60 mL/min (>60); Globulin 3.5 g/dL (1.7-4.1); Glucose 79 mg/dL (80-110); Potassium 3.9 mmol/L (3.4-5.1); Sodium 130 mmol/L (137-145); Total Protein 6.4 g/dL (6.3-8.2)
[2023-05-27 18:44] LABS: HEMOLYSIS 77 (0-50)
== END 2023-05-27 19:31 | disposition home or self-care (01) ==
PROVIDERS: Emergency Provider Student in an Organized Health Care Education/Training Program; PCP Internal Medicine
DX: N30.00 Acute cystitis without hematuria (principal)
CPT/HCPCS: 36415; 51701; 80053; 81001; 81003; 85025; 87077; 87086; 87186; 96365; 99284; J0696

== ENCOUNTER → 2023-10-07 12:29 | Outpatient (CLI) | payer MEDICARE, MEDICAID, SELFPAY ==
[2022-07-22 07:16] VITALS: RESP 28
[2022-07-22 14:33] VITALS: PULSE 127; RESP 38; O2SAT 100
[2023-03-03 06:00] VITALS: BMI 19.1
--- NOTE | 2023-10-07 12:40 | DI.MRI.S_ITS ---
PROCEDURE: MR LUMBAR SPINE WO CON INDICATIONS: Radiculopathy, lumbar region TECHNIQUE: Noncontrast sagittal T1 spin echo and T2 fast echo, sagittal STIR, and T2 fast spin echo through the lumbar spine. In cases with scoliosis, additional coronal T2 fast spin echo may be performed. COMPARISON: [facility], MR, MR LUMBAR SPINE WITH/WITHOUT CONTRAST, 12/12/2020, 16:48. [facility], MR, MR LUMBAR SPINE WITH/WITHOUT CONTRAST, 11/29/2020, 16:40. [facility], MR, MR LUMBAR SPINE WO CON, 09/15/2020, 13:39. [facility], CT, CT LUMBAR SPINE WO CON, 02/09/2022, 18:17. [facility], MR, MR LUMBAR SPINE WO/W CON, 11/12/2020, 14:43. FINDINGS: Image quality: This examination is limited by involuntary motion artifact. Alignment and Curvature: There is normal bony alignment. Bone Marrow: Marrow is of normal overall signal. No acute vertebral body compression fractures. Multiple levels of thoracolumbar fracture can be seen, with vertebroplasty cement seen at L1, L2, L3, and L4. Spinal Cord: Conus medullaris terminates at the L1 level. Visualized cord demonstrates normal signal and size. Paraspinous Soft Tissues: No paravertebral masses. The left kidney is atrophic. The known left-sided cord calculus is better seen by CT. T12-L1: The disc height and disk signal are well-preserved. Mild generalized disc bulge is seen. Mild to moderate bilateral neural foraminal narrowing can be seen. No central canal narrowing is seen. When comparison is made with the prior images, these findings are similar. L1-L2: The disc height and disk signal are relatively well-preserved. Mild generalized disc bulge is seen. Mild facet joint hypertrophy is seen. Mild bilateral neural foraminal narrowing is seen. Minimal central canal narrowing is seen. When comparison is made with the prior images, these findings are similar. L2-L3: The disc height is well-preserved. Loss of disc signal is seen at this level. Mild to moderate disc bulge is seen. There is a superimposed central disc protrusion. Mild facet joint hypertrophy is seen. There is [id number] left-sided and minimal right-sided neural foraminal narrowing. Minimal central canal narrowing is seen. No significant change from the prior. L3-L4: The disc height is well-preserved. Loss of disc signal is seen at this level. Mild generalized disc bulge is seen. Mild facet joint hypertrophy is seen. There is moderate left-sided and no right-sided neural foraminal narrowing. Mac row minimal central When comparison is made with the prior images, these findings are similar. L4-L5: Moderate loss of disc height and disc signal can be seen posteriorly. At least moderate disc bulge is seen, which is eccentric to the left. There is a superimposed central disc protrusion. At least moderate facet hypertrophy is seen. There is moderate left-sided and at least moderate right-sided neural foraminal narrowing. There is a degree of compression seen upon the exiting right L4 nerve root. Moderate central canal narrowing is seen. When comparison is made with the prior images, these findings are similar. L5-S1: No significant abnormality is seen. IMPRESSION: Negative for acute fracture. Chronic fractures are seen, with vertebroplasty cement. Multiple levels of lumbar spine degenerative change are seen, which are similar to 2020. Additional findings: Atrophic left kidney Dictated by: Darwin Long M.D. on 10/07/2023 at 17:20 Approved by: Darwin Long M.D. on 10/07/2023 at 17:27
== END ==
PROVIDERS: PCP Internal Medicine; Referring Provider Orthopaedic Surgery Foot and Ankle Surgery; Visit Provider Orthopaedic Surgery Foot and Ankle Surgery
DX: M47.26 Other spondylosis with radiculopathy, lumbar region (principal); M47.27 Other spondylosis with radiculopathy, lumbosacral region; N26.1 Atrophy of kidney (terminal); M48.55XS Collapsed vertebra, not elsewhere classified, thoracolumbar region, sequela of fracture
CPT/HCPCS: 72148

== ENCOUNTER 2024-03-08 19:22 | Emergency (ER) | payer MEDICARE, MEDICAID, SELFPAY ==
[2022-07-22 07:16] VITALS: RESP 28
[2022-07-22 14:33] VITALS: PULSE 127; RESP 38; O2SAT 100
[2023-03-03 06:00] VITALS: BMI 19.1
[2024-03-08] VITALS (13 sets, daily range): BP systolic 79–152; BP diastolic 46–79; PULSE 92–151; RESP 11–26; TEMP 37.1; O2SAT 90–100; BMI 18.8
--- NOTE | 2024-03-08 19:31 | DI.RAD.S_ITS ---
PROCEDURE: XR KNEE LT 1TO2V INDICATIONS: pain TECHNIQUE: 2 views of the knee were acquired. COMPARISON: [facility], CR, XR KNEE LT 3V, 12/13/2022, 15:40. FINDINGS: Bones: Comminuted, transverse fracture of the distal left femur diametaphysis with mild impaction of the distal fracture fragment. Partially imaged surgical fixation hardware of the proximal tibia. Fracture deformities of the proximal fibula. Soft tissues: No joint effusion. No suspicious soft tissue calcifications. IMPRESSION: Mildly comminuted, transversely oriented fracture of the distal left femur diametaphysis with mild impaction of the distal fracture fragments. Dictated by: Boyd Murray M.D. on 03/08/2024 at 20:18 Approved by: Boyd Murray M.D. on 03/08/2024 at 20:19
--- NOTE | 2024-03-08 20:16 | DI.RAD.S_ITS ---
PROCEDURE: XR CHEST 1V INDICATIONS: pre-op TECHNIQUE: One view of the chest was acquired. COMPARISON: [facility], CR, XR CHEST 1V, 03/03/2023, 2:51. FINDINGS: Surgical changes and devices: Surgical fixation of the right humerus. Prior vertebroplasty of the lumbar spine. Surgical clips in right upper quadrant compatible with prior cholecystectomy. Lungs and pleura: Streaky bibasilar opacities likely representing atelectasis. No dense consolidation.. No pleural effusions or pneumothorax. Mediastinum: Mediastinal contours appear normal. Heart size is normal. Bones and chest wall: No suspicious bony lesions. Overlying soft tissues appear unremarkable. IMPRESSION: Streaky bibasilar opacities favored to represent atelectasis. No focal consolidation. Otherwise, no acute cardiopulmonary abnormalities. Dictated by: Boyd Murray M.D. on 03/08/2024 at 23:17 Approved by: Boyd Murray M.D. on 03/08/2024 at 23:19
--- NOTE | 2024-03-08 20:17 | ED_ITS ---
HPI - Fall General Chief Complaint: Fall Stated Complaint: GLF/ Knee pain Time Seen by Provider: 03/08/24 20:15 History of Present Illness HPI Narrative: 73-year-old female lives at home in [place], usually has a caregiver who was late today, she went to the bathroom on her own and after she samreen up from the toilet she fell to the side, struck her left knee, complains of left knee area discomfort. She did not hit her head. She denies pain to her head, neck, upper back, lower back, chest, abdomen, pelvis. She denies pain or swelling to her right leg, right arm, left arm. She has had previous left lower extremity surgeries and internal fixation, she believes last year she was sent to [facility] for fracture care of her left leg, denies new injury to her left ankle and foreleg and foot. She has no numbness or weakness. She has no nausea or vomiting. She denies shortness of breath or chest pain. She does not take blood thinner medications. She arrived by EMS with left lower extremity splint in place. Related Data Home Medications Medication Instructions Recorded Confirmed bisacodyl 10 mg rectal suppository 10 mg DC DAILY PRN Constipation 08/21/22 02/06/24 (Dulcolax (bisacodyl)) polyethylene glycol 3350 17 17 g PO DAILY 08/21/22 02/06/24 gram/dose oral powder (Miralax) Previous Rx's Medication Instructions Recorded alendronate 70 mg tablet (Fosamax) 70 mg PO QWEEK #12 tabs 01/17/23 duloxetine 20 mg capsule,delayed 20 mg PO BID #60 caps 08/05/23 release metoprolol tartrate 25 mg tablet 12.5 mg (1/2 x 25 mg) PO BID #90 09/13/23 tabs atorvastatin 40 mg tablet 40 mg PO DAILY #90 tabs 10/03/23 gabapentin 300 mg capsule 900 mg (3 x 300 mg) PO TID #270 10/28/23 caps aspirin 81 mg tablet,delayed 81 mg PO DAILY #90 tabs 10/30/23 release (Adult Aspirin Regimen) food supplemt, lactose-reduced 1 ea PO TID #5,688 mL 11/20/23 0.05 gram-1.5 kcal/mL oral liquid (Ensure Plus) pantoprazole 40 mg tablet,delayed 40 mg PO DAILY #90 tabs 01/22/24 release (Protonix) carisoprodol 350 mg tablet 350 mg PO TID PRN muscle pain #90 02/06/24 tabs diclofenac sodium 1 % topical gel 2 g topical QID PRN Rash #100 grams 02/06/24 oxycodone 10 mg tablet 10 mg PO QID PRN pain #120 tabs 02/06/24 oxycodone 10 mg tablet 10 mg PO QID PRN pain #120 tabs 02/06/24 oxycodone 10 mg tablet 10 mg PO QID PRN pain #120 tabs 02/06/24 Allergies Allergy/AdvReac Type Severity Reaction Status Date / Time furosemide [From Lasix] Allergy Intermediate Rash Verified 02/06/24 08:57 tramadol [TRAMADOL] Allergy Unknown Verified 02/06/24 08:57 amitriptyline [AMITRIPTYLINE] AdvReac Intermediate Confusion Verified 02/06/24 08:57 duloxetine AdvReac Intermediate GI distress Verified 02/06/24 08:57 Review of Systems Review of Systems Narrative: see HPI Patient History Medical History Immunodeficiency due to conditions classified elsewhere Age-related osteoporosis without current pathological fracture History of vertebral compression fracture GERD without esophagitis Chronic, continuous use of opioids Primary osteoarthritis involving multiple joints Chronic low back pain Stage 3b chronic kidney disease (CKD) Mixed hyperlipidemia Essential hypertension Cerebrovascular disease Coronary artery disease Recurrent UTI Displaced comminuted fracture of shaft of tibia Acute SC Septic shock Left rib fracture Closed left clavicular fracture Iron (Fe) deficiency anemia Nephrolithiasis Peptic ulcer disease History of osteomyelitis Fracture, tibia Left foot drop Numbness and tingling Lumbar compression fracture (02/26/19) HLD (hyperlipidemia) C. difficile colitis Colitis Anxiety Insomnia Arthritis DJD (degenerative joint disease) Depression Fibromyalgia Migraines Multiple fractures Osteoporosis Radius fracture (08/30/17) Neuropathy History of recurrent UTIs Renal disease Hypertension Chronic pain GI bleeding Surgical History Hx of kyphoplasty (07/28/19) Hx of kyphoplasty (04/28/19) Hx of kyphoplasty (~2013) Hx of elbow surgery Hx of appendectomy Hx of cholecystectomy Status post epidural steroid injection (03/25/19) H/O: hysterectomy Hx of tonsillectomy History of surgery Family History Mother No known health problems COPD (chronic obstructive pulmonary disease) Father No known health problems Social History household members: significant other and caregiver Smoking Status: Current every day smoker alcohol intake: current Smoking Status: Current every day smoker tobacco type: vaping alcohol intake frequency: holidays/special occasions only Substance Use Type: does not use and former substance user Exam Narrative Exam Narrative: GENERAL: Well-developed patient, in mild distress. HEAD: Atraumatic. Normocephalic. EYES: Pupils equal round and reactive. Extraocular motions intact. No scleral icterus. No injection or drainage. ENT: Nose without bleeding, purulent drainage. Throat without erythema, tonsillar hypertrophy or exudate. Airway patent. NECK: Trachea midline. Non tender CARDIOVASCULAR: Regular rate and rhythm without murmurs, gallops, or rubs. RESPIRATORY: Clear to auscultation. Breath sounds equal bilaterally. No wheezes, rales, or rhonchi. GASTROINTESTINAL: Abdomen soft, non-tender, nondistended. EXTREMITIES: Tenderness to left knee, distal femur, no distinct tenderness swelling or deformity to left mid or proximal femur, no trochanteric left-sided hip tenderness. No anterior left hip tenderness. No tenderness to left medial knee joint line or left lateral knee joint line. Well-healed scars around the foreleg and ankle, no gross deformities, no tenderness to foreleg or ankle. DP pulse in the left normal. Good perfusion toes on the left. Right lower extremity and bilateral upper extremities appear atraumatic. BACK: Nontender without deformity or crepitance. No flank tenderness. NEURO: AOx3. SKIN: No rash or erythema of visible areas Initial Vital Signs Initial Vital Signs: Vital Signs Temperature 98.8 F 03/08/24 19:24 Pulse Rate 115 H 03/08/24 19:24 Respiratory Rate 16 03/08/24 19:24 Blood Pressure 152/73 H 03/08/24 19:24 Pulse Oximetry 98 03/08/24 19:24 Oxygen Delivery Method Room Air 03/08/24 19:24 Course Orders Ordered: ED Orders 03/08/24 19:31 XR knee LT 1to2V Stat 03/08/24 20:10 CBC Auto Diff [Complete Blood Count AUTO DIFF] Stat CMP [Comprehensive Metabolic Panel] Stat Prothrombin Time INR Stat 03/08/24 20:16 XR chest 1V Stat EKG-12 Lead Stat 03/08/24 20:24 XR tibia fibula LT 2V Stat 03/08/24 20:26 XR femur LT min 2V Stat Discontinued Medications Diazepam (Diazepam 10 Mg/2 Ml Syringe) 5 mg IV NOW ONE Stop: 03/08/24 21:09 Last Admin: 03/08/24 21:11 Dose: 5 mg Documented By: Hydromorphone HCl (Hydromorphone 0.5 Mg Inj) 0.5 mg IV NOW ONE Stop: 03/08/24 20:16 Last Admin: 03/08/24 20:18 Dose: 0.5 mg Documented By: Vital Signs Vital signs: Vital Signs - 8 hr 03/08/24 20:00 03/08/24 20:00 03/08/24 20:30 Pulse Rate 108 H 151 H Respiratory Rate 20 17 Blood Pressure 113/79 Pulse Oximetry 99 94 Oxygen Delivery Method 03/08/24 20:31 03/08/24 20:31 03/08/24 21:00 Pulse Rate 133 H Respiratory Rate 26 H Blood Pressure 106/51 L 84/53 L Pulse Oximetry 90 L Oxygen Delivery Method 03/08/24 21:00 03/08/24 21:04 03/08/24 21:04 Pulse Rate 101 H 106 H Respiratory Rate 19 21 Blood Pressure 95/59 L Pulse Oximetry 99 98 Oxygen Delivery Method Room Air 03/08/24 21:30 03/08/24 21:30 03/08/24 21:35 Pulse Rate 97 H Respiratory Rate 11 L Blood Pressure 81/47 L 79/46 L Pulse Oximetry 97 Oxygen Delivery Method 03/08/24 21:35 03/08/24 21:41 03/08/24 21:41 Pulse Rate 99 H 97 H Respiratory Rate 18 21 Blood Pressure 84/50 L Pulse Oximetry 97 98 Oxygen Delivery Method 03/08/24 22:00 03/08/24 22:08 03/08/24 22:08 Pulse Rate 93 H 92 H Respiratory Rate 15 16 Blood Pressure 85/49 L Pulse Oximetry 100 Oxygen Delivery Method MDM - Fall Lab Data Attestation: I reviewed the patient's lab results. 03/08/24 20:10 03/08/24 20:10 Labs: Lab Results 03/08/24 Range/Units 20:10 WBC 15.0 H (4.5-11.0) X10^3/uL RBC 2.50 L (4.0-5.2) X10^6/uL Hgb 9.1 L (12.0-16.0) g/dL Hct 28.1 L (36-46) % MCV 112.4 H (80-100) fL MCH 36.1 H (26-34) PG MCHC 32.2 (30-36) % RDW 15.8 H (11.6-14.8) % Plt Count 375 (150-400) X10^3/uL Neut % (Auto) 90.8 H (50-75) % Lymph % (Auto) 4.7 L (25-40) % [place] % (Auto) 3.4 (3-14) % Eos % (Auto) 0.4 L (2-4) % Baso % (Auto) 0.7 (0-2) % Neut # (Auto) 43631 H (4390-2729) /uL Lymph # (Auto) 700 L (1606-8001) /uL [place] # (Auto) 500 (0-900) /uL Eos # (Auto) 100 (0-450) /uL Baso # (Auto) 100 (0-100) /uL RBC Morphology See below Macrocytosis 2+ H PT 12.2 (9.4-12.5) SECONDS INR 1.1 (0.9-1.3) Sodium 132 L (137-145) mmol/L Potassium 4.3 (3.4-5.1) mmol/L Chloride 109 H (98-107) mmol/L Carbon Dioxide 11 L (22-32) mmol/L BUN 40 H (7-17) mg/dL Creatinine 2.01 H (0.52-1.04) mg/dL Estimated GFR 26 L (>60) mL/min BUN/Creatinine Ratio 19.9 (6-22) Glucose 72 L (80-110) mg/dL Calcium 8.5 (8.4-10.2) mg/dL Total Bilirubin 0.5 (0.2-1.3) mg/dL AST 28 (14-36) IU/L ALT 21 (<35) IU/L Alkaline Phosphatase 169 H (38-126) U/L Total Protein 7.0 (6.3-8.2) g/dL Albumin 3.6 (3.5-5.0) g/dL Globulin 3.4 (1.7-4.1) g/dL Albumin/Globulin Ratio 1.1 (1.0-2.8) Point of Care Testing Glucose POC 67 MDM Narrative Medical decision making narrative: 73-year-old female with previous left lower extremity surgeries, chronic back pain, chronic opiate use, COPD, had ground level fall at her home earlier today, pain to distal thigh, EMS splint and transport, x-ray left knee area shows distal femur fracture. We will obtain plain radiographs of the remainder of the left femur, also tib-fib through ankle, old ORIF medardo noted in tibia on visualized portion of knee x-ray on my view. Chest x-ray, EKG, labs, urinalysis preoperative studies also requested. We will contact local orthopedic surgery, given her recent repair [facility] last year, to consider transfer versus treatment here. IV Dilaudid. Keep NPO. 2029, case discussed with local orthopedic surgeon Dr. Menchaca, requests transfer to [facility]. We will contact [facility]. 2049, case discussed with [facility] intake, then with ED provider, ED to ED transfer. 2099, case discussed with [facility] ED provider Dr. Bassam Tello, accepts patient for ED to ED transfer to coordinate definitive trauma care Additional Dilaudid IV order, IV Valium. Transfer to [facility] as planned. Critical Care Time Critical Care Time Critical Care Time: Yes Total Critical Care Time: 35 Attestation: The high probability of a clinically significant, sudden or life threatening deterioration of the [Orthopedic, musculoskeletal] system(s) required my full and direct attention, intervention and personal management. The aggregate critical care time was [35] minutes. This time is in addition to time spent performing reported procedures but includes the following: [x] Data Review and interpretation [x] Patient assessment and monitoring of vital signs [x] Documentation [x] Medication orders and management Discharge Plan Departure Patient Disposition: General Acute Hospital Clinical Impression: Femur fracture, left, Fall from ground level Prescriptions: No Action metoprolol tartrate 25 mg tablet 12.5 mg PO BID Qty: 90 3RF Rx Instructions: Take 1/2 a tablet twice a day for a total of 25 mg per day atorvastatin 40 mg tablet 40 mg PO DAILY Qty: 90 2RF aspirin [Adult Aspirin Regimen] 81 mg tablet,delayed release (DR/EC) 81 mg PO DAILY Qty: 90 2RF Ensure Plus 0.05 gram- 1.5 kcal/mL liquid 1 ea PO TID Qty: 5688 6RF Rx Instructions: Chocolate flavor is requested. pantoprazole [Protonix] 40 mg tablet,delayed release (DR/EC) 40 mg PO DAILY Qty: 90 3RF bisacodyl [Dulcolax (bisacodyl)] 10 mg suppository 10 mg DC DAILY PRN (Reason: Constipation) polyethylene glycol 3350 [Miralax] 17 gram/dose powder 17 g PO DAILY duloxetine 20 mg capsule,delayed release(DR/EC) 20 mg PO BID Qty: 60 5RF gabapentin 300 mg capsule 900 mg PO TID Qty: 270 5RF alendronate [Fosamax] 70 mg tablet 70 mg PO QWEEK Qty: 12 3RF carisoprodol 350 mg tablet 350 mg PO TID PRN (Reason: muscle pain) Qty: 90 5RF oxycodone 10 mg tablet 10 mg PO QID PRN (Reason: pain) Qty: 120 0RF oxycodone 10 mg tablet 10 mg PO QID PRN (Reason: pain) Qty: 120 0RF diclofenac sodium 1 % gel 2 g topical QID PRN (Reason: Rash) Qty: 100 1RF Rx Instructions: to leg oxycodone 10 mg tablet 10 mg PO QID PRN (Reason: pain) Qty: 120 0RF Referrals: Ricardo Cantu MD [Primary Care Provider] -
[2024-03-08] MEDS: HYDROMORPHONE 0.5 MG INJ IV (20:18)
[2024-03-08 20:23] LABS: Add Manual Diff / Slide Review NO; Basophils Absolute Auto 100 /uL (0-100); Basophils Percent Auto 0.7 % (0-2); Eosinophils Absolute Auto 100 /uL (0-450); Eosinophils Percent Auto 0.4 % (2-4); Hematocrit 28.1 % (36-46); Hemoglobin 9.1 g/dL (12.0-16.0); Lymphocytes Absolute Auto 700 /uL (1100-4500); Lymphocytes Percent Auto 4.7 % (25-40); Mean Corpuscular HGB Conc 32.2 % (30-36); Mean Corpuscular Hemoglobin 36.1 PG (26-34); Mean Corpuscular Volume 112.4 fL (80-100); Monocytes Absolute Auto 500 /uL (0-900); Monocytes Percent Auto 3.4 % (3-14); Neutrophils Absolute Auto 13600 /uL (1500-7000); Neutrophils Percent Auto 90.8 % (50-75); Platelet Count 375 X10^3/uL (150-400); Red Cell Distribution Width 15.8 % (11.6-14.8)
--- NOTE | 2024-03-08 20:24 | DI.RAD.S_ITS ---
PROCEDURE: XR TIBIA FIBULA LT 2V INDICATIONS: fall TECHNIQUE: 2 views of the tibia and fibula were acquired. COMPARISON: [facility], CR, XR TIBIA FIBULA LT 2V, 12/13/2022, 15:40. FINDINGS: Bones: Status post ORIF of the right tibia no evidence for hardware complication. Healed fracture deformities of the proximal 3rd tibia. Partially imaged comminuted fracture of the distal femur better seen on dedicated evaluation of the femur. Please see separate report for details. Healed fracture deformities of the proximal fibula. Soft tissues: No suspicious soft tissue calcifications or masses. IMPRESSION: Status post previous ORIF of the right tibia with healed fracture deformities and residual, chronic appearing fracture line of the proximal 3rd tibial diaphysis correlating with site of previous fracture. Comminuted distal femur fracture better seen on dedicated evaluation of the femur. Please see separate report for details. Dictated by: Boyd Murray M.D. on 03/08/2024 at 23:22 Approved by: Boyd Murray M.D. on 03/08/2024 at 23:24
--- NOTE | 2024-03-08 20:26 | DI.RAD.S_ITS ---
PROCEDURE: XR FEMUR LT MIN 2V INDICATIONS: fall TECHNIQUE: 2 views of the femur were acquired. COMPARISON: [facility], , XR FEMUR LT MIN 2V, 03/02/2023, 23:03. FINDINGS: Bones: Comminuted, mildly impacted fracture of the distal right femur . Normal alignment of the knee and hip. Healing fracture deformities of the left superior and inferior pubic rami.. Soft tissues: No suspicious soft tissue calcifications or masses. IMPRESSION: Comminuted, mildly impacted fracture of the distal right femur. Healing fracture deformities of the left superior and inferior pubic rami. Dictated by: Boyd Murray M.D. on 03/08/2024 at 23:25 Approved by: Boyd Murray M.D. on 03/08/2024 at 23:26
[2024-03-08 20:28] LABS: INR 1.1 (0.9-1.3); Prothrombin Time 12.2 SECONDS (9.4-12.5)
[2024-03-08 20:32] LABS: Alanine Aminotransferase 21 IU/L (<35); Albumin 3.6 g/dL (3.5-5.0); Albumin Globulin Ratio 1.1 (1.0-2.8); Alkaline Phosphatase 169 U/L (38-126); Aspartate Aminotransferase 28 IU/L (14-36); BUN Creatinine Ratio 19.9 (6-22); Bilirubin Total 0.5 mg/dL (0.2-1.3); Blood Urea Nitrogen 40 mg/dL (7-17); Calcium 8.5 mg/dL (8.4-10.2); Carbon Dioxide 11 mmol/L (22-32); Chloride 109 mmol/L (98-107); Estimated Glomerular Filt Rate 26 mL/min (>60); Globulin 3.4 g/dL (1.7-4.1); Glucose 72 mg/dL (80-110); HEMOLYSIS < 15 (0-50); Potassium 4.3 mmol/L (3.4-5.1); Sodium 132 mmol/L (137-145)
[2024-03-08 20:37] LABS: Macrocytosis 2+
[2024-03-08] MEDS: diazePAM 10 MG/2 ML SYRINGE 5 MG IV (21:11)
== END 2024-03-08 22:22 | disposition short-term general hospital (02) ==
PROVIDERS: Emergency Provider Emergency Medicine; PCP Internal Medicine
DX: S72.402A Unspecified fracture of lower end of left femur, initial encounter for closed fracture (principal); R79.89 Other specified abnormal findings of blood chemistry; W18.30XA Fall on same level, unspecified, initial encounter; Z79.899 Other long term (current) drug therapy
CPT/HCPCS: 36415; 71045; 73552; 73560; 73590; 80053; 82962; 85025; 85610; 96374; 96375; 99284; J1170; J3360

== ENCOUNTER 2024-03-29 05:03 | Emergency (ER) | payer MEDICARE, MEDICAID, SELFPAY ==
[2022-07-22 07:16] VITALS: RESP 28
[2022-07-22 14:33] VITALS: PULSE 127; RESP 38; O2SAT 100
[2023-03-03 06:00] VITALS: BMI 19.1
[2024-03-29] VITALS (46 sets, daily range): BP systolic 93–181; BP diastolic 53–89; PULSE 63–98; RESP 14–18; TEMP 36.3; O2SAT 95–100; BMI 20.7
--- NOTE | 2024-03-29 05:44 | ED_ITS ---
HPI - Extremity Injury (Lower) <Bassam Sears MD - Last Filed: 03/31/24 09:13> General Chief Complaint: Extremity Injury, Lower Stated Complaint: Pain Time Seen by Provider: 03/29/24 05:27 Source: EMS Mode of arrival: EMS History of Present Illness HPI Narrative: 73-year-old female had ground level fall on 03/08/2024 sustaining distal left femur fracture, with pre-existing medardo in the left tibia, felt to be too complex to manage here by on-call orthopedic surgery, was transferred to [facility], patient had surgery there, was released 4 days ago, was advised to be discharged to a long-term but she preferred to go back home, she felt that she had assistance with the caregiver. Her periodic caregiver has been absent recent days, she has had to do more ADLs and activities in her own home after recent femur fracture surgery. No new fall or trauma since returning back to her home. She complains of increasing pain to the left thigh, left knee. She has not sure she can care for herself in the home. Arrival by EMS, given IV fentanyl en route, that patient thinks it helped very little Related Data Home Medications Medication Instructions Recorded Confirmed bisacodyl 10 mg rectal suppository 10 mg MO DAILY PRN Constipation 08/21/22 03/29/24 (Dulcolax (bisacodyl)) polyethylene glycol 3350 17 17 g PO DAILY Constipation 08/21/22 03/29/24 gram/dose oral powder (Miralax) metoprolol tartrate 25 mg tablet 25 mg PO BID 03/26/24 03/29/24 diclofenac sodium 1 % topical gel 2 g topical 4XD PRN pain 03/29/24 03/29/24 duloxetine 20 mg capsule,delayed 20 mg PO BID 03/29/24 03/29/24 release Previous Rx's Medication Instructions Recorded atorvastatin 40 mg tablet 40 mg PO DAILY #90 tabs 10/03/23 gabapentin 300 mg capsule 900 mg (3 x 300 mg) PO TID #270 10/28/23 caps aspirin 81 mg tablet,delayed 81 mg PO DAILY #90 tabs 10/30/23 release (Adult Aspirin Regimen) food supplemt, lactose-reduced 1 ea PO TID #5,688 mL 11/20/23 0.05 gram-1.5 kcal/mL oral liquid (Ensure Plus) pantoprazole 40 mg tablet,delayed 40 mg PO DAILY #90 tabs 01/22/24 release (Protonix) carisoprodol 350 mg tablet 350 mg PO TID PRN muscle pain #90 02/06/24 tabs oxycodone 10 mg tablet 10 mg PO QID PRN pain #120 tabs 02/06/24 Allergies Allergy/AdvReac Type Severity Reaction Status Date / Time furosemide [From Lasix] Allergy Intermediate Rash Verified 03/29/24 13:15 tramadol [TRAMADOL] Allergy Unknown Verified 03/29/24 13:15 amitriptyline [AMITRIPTYLINE] AdvReac Intermediate Confusion Verified 03/29/24 13:15 duloxetine AdvReac Intermediate GI distress Verified 03/29/24 13:15 Review of Systems <Bassam Sears MD - Last Filed: 03/31/24 09:13> Review of Systems Narrative: see HPI Patient History <Bassam Sears MD - Last Filed: 03/31/24 09:13> Medical History (Updated 03/30/24 @ 06:47 by Bassam Sears MD) Closed fracture of left distal femur Immunodeficiency due to conditions classified elsewhere Age-related osteoporosis without current pathological fracture History of vertebral compression fracture GERD without esophagitis Chronic, continuous use of opioids Primary osteoarthritis involving multiple joints Chronic low back pain Stage 3b chronic kidney disease (CKD) Mixed hyperlipidemia Essential hypertension Cerebrovascular disease Coronary artery disease Recurrent UTI Displaced comminuted fracture of shaft of tibia Acute IN Septic shock Left rib fracture Closed left clavicular fracture Iron (Fe) deficiency anemia Nephrolithiasis Peptic ulcer disease History of osteomyelitis Fracture, tibia Left foot drop Numbness and tingling Lumbar compression fracture (02/26/19) HLD (hyperlipidemia) C. difficile colitis Colitis Anxiety Insomnia Arthritis DJD (degenerative joint disease) Depression Fibromyalgia Migraines Multiple fractures Osteoporosis Radius fracture (08/30/17) Neuropathy History of recurrent UTIs Renal disease Hypertension Chronic pain GI bleeding Surgical History Hx of kyphoplasty (07/28/19) Hx of kyphoplasty (04/28/19) Hx of kyphoplasty (~2013) Hx of elbow surgery Hx of appendectomy Hx of cholecystectomy Status post epidural steroid injection (03/25/19) H/O: hysterectomy Hx of tonsillectomy History of surgery Family History Mother No known health problems COPD (chronic obstructive pulmonary disease) Father No known health problems Social History household members: significant other and caregiver Smoking Status: Current every day smoker alcohol intake: current Smoking Status: Current every day smoker tobacco type: vaping alcohol intake frequency: holidays/special occasions only Substance Use Type: does not use and former substance user Exam <Bassam Sears MD - Last Filed: 03/31/24 09:13> Narrative Exam Narrative: GENERAL: Well-developed patient, in mild distress. HEAD: Atraumatic. Normocephalic. EYES: Pupils equal round and reactive. Extraocular motions intact. No scleral icterus. No injection or drainage. ENT: Nose without bleeding, purulent drainage. Throat without erythema, tonsillar hypertrophy or exudate. Airway patent. NECK: Trachea midline. Non tender CARDIOVASCULAR: Regular rate and rhythm without murmurs, gallops, or rubs. RESPIRATORY: Clear to auscultation. Breath sounds equal bilaterally. No wheezes, rales, or rhonchi. GASTROINTESTINAL: Abdomen soft, non-tender, nondistended. EXTREMITIES: Left lateral hip sutures intact, skin without redness or swelling. Left thigh without gross deformity, distal thigh and knee wounds with sutures intact. No significant redness or abrasions to the knee, no gross deformity to the knee or thigh. No injuries tenderness to left foreleg ankle foot toes. BACK: Nontender without deformity or crepitance. No flank tenderness. NEURO: AOx3. SKIN: No rash or erythema of visible areas Initial Vital Signs Initial Vital Signs: Vital Signs Pulse Rate 67 03/29/24 05:08 Blood Pressure 115/59 L 03/29/24 05:08 Pulse Oximetry 100 03/29/24 05:08 <Melisa Koo DO - Last Filed: 03/30/24 18:10> Initial Vital Signs Initial Vital Signs: Vital Signs Pulse Rate 67 03/29/24 05:08 Blood Pressure 115/59 L 03/29/24 05:08 Pulse Oximetry 100 03/29/24 05:08 Course <Bassam Sears MD - Last Filed: 03/31/24 09:13> Orders Ordered: Discontinued Medications Acetaminophen (Acetaminophen 325 Mg Tablet) 975 mg PO Q6HR PRN PRN Reason: Pain, Moderate (4-6) Atorvastatin Calcium (Atorvastatin 20 Mg Tablet) 40 mg PO DAILY [facility] Last Admin: 03/30/24 08:03 Dose: 40 mg Documented By: BIBIANA Duloxetine HCl (Duloxetine 20 Mg Capsule) 20 mg PO DAILY [facility] Last Admin: 03/30/24 08:11 Dose: 20 mg Documented By: TARAN Gabapentin (Gabapentin 300 Mg Capsule) 900 mg PO TID [facility] Last Admin: 03/30/24 08:03 Dose: 900 mg Documented By: Admin: 03/29/24 20:12 Dose: 900 mg Documented By: CHRISTIE Hydromorphone HCl (Hydromorphone 0.5 Mg Inj) 0.5 mg IV NOW ONE Stop: 03/29/24 06:03 Last Admin: 03/29/24 06:07 Dose: 0.5 mg Documented By: Hydromorphone HCl (Hydromorphone 2 Mg Inj) 1 mg SUBCUT Q4H PRN PRN Reason: Pain, Severe (7-10) Last Admin: 03/30/24 08:03 Dose: 1 mg Documented By: Admin: 03/29/24 14:24 Dose: 1 mg Documented By: CHRISTIE Hydromorphone HCl (Hydromorphone 0.5 Mg Inj) 0.5 mg IV Q4H PRN PRN Reason: Pain, Severe (7-10) Acetaminophen (Ofirmev) 1,000 mg in 100 mls @ 400 mls/hr IV NOW ONE Stop: 03/29/24 08:27 Last Infusion: 03/29/24 09:20 Dose: Infused Documented By: Admin: 03/29/24 08:28 Dose: 400 mls/hr Documented By: ELEAZAR Metoprolol Tartrate (Metoprolol Ir 25 Mg Tablet) 25 mg PO BID [facility] Last Admin: 03/30/24 08:03 Dose: 25 mg Documented By: Admin: 03/29/24 20:13 Dose: 25 mg Documented By: CHRISTIE Oxycodone HCl (Oxycodone Ir 5 Mg Tablet) 10 mg PO NOW ONE Stop: 03/29/24 08:14 Last Admin: 03/29/24 08:29 Dose: 10 mg Documented By: ELEAZAR Oxycodone HCl (Oxycodone Ir 5 Mg Tablet) 10 mg PO Q6H PRN PRN Reason: Pain, Severe (7-10) Last Admin: 03/30/24 11:52 Dose: 10 mg Documented By: CHRISTIE(2) Admin: 03/30/24 05:45 Dose: 10 mg Documented By: Admin: 03/29/24 19:53 Dose: 10 mg Documented By: CHRISTIE Vital Signs Vital signs: Vital Signs - 8 hr 03/30/24 10:30 03/30/24 10:31 03/30/24 10:31 Pulse Rate 67 65 Respiratory Rate Blood Pressure 165/66 H Pulse Oximetry 99 99 Oxygen Delivery Method 03/30/24 11:00 03/30/24 11:02 03/30/24 11:05 Pulse Rate 69 75 Respiratory Rate Blood Pressure 186/81 H Pulse Oximetry Oxygen Delivery Method 03/30/24 12:01 03/30/24 12:30 03/30/24 13:25 Pulse Rate 75 Respiratory Rate 16 Blood Pressure 175/98 H 172/81 H 157/69 H Pulse Oximetry 100 Oxygen Delivery Method Room Air <Melisa Koo, - Last Filed: 03/30/24 18:10> Orders Ordered: Discontinued Medications Acetaminophen (Acetaminophen 325 Mg Tablet) 975 mg PO Q6HR PRN PRN Reason: Pain, Moderate (4-6) Atorvastatin Calcium (Atorvastatin 20 Mg Tablet) 40 mg PO DAILY [facility] Last Admin: 03/30/24 08:03 Dose: 40 mg Documented By: BIBIANA Duloxetine HCl (Duloxetine 20 Mg Capsule) 20 mg PO DAILY [facility] Last Admin: 03/30/24 08:11 Dose: 20 mg Documented By: TARAN Gabapentin (Gabapentin 300 Mg Capsule) 900 mg PO TID [facility] Last Admin: 03/30/24 08:03 Dose: 900 mg Documented By: Admin: 03/29/24 20:12 Dose: 900 mg Documented By: CHRISTIE Hydromorphone HCl (Hydromorphone 0.5 Mg Inj) 0.5 mg IV NOW ONE Stop: 03/29/24 06:03 Last Admin: 03/29/24 06:07 Dose: 0.5 mg Documented By: Hydromorphone HCl (Hydromorphone 2 Mg Inj) 1 mg SUBCUT Q4H PRN PRN Reason: Pain, Severe (7-10) Last Admin: 03/30/24 08:03 Dose: 1 mg Documented By: Admin: 03/29/24 14:24 Dose: 1 mg Documented By: CHRISTIE Hydromorphone HCl (Hydromorphone 0.5 Mg Inj) 0.5 mg IV Q4H PRN PRN Reason: Pain, Severe (7-10) Acetaminophen (Ofirmev) 1,000 mg in 100 mls @ 400 mls/hr IV NOW ONE Stop: 03/29/24 08:27 Last Infusion: 03/29/24 09:20 Dose: Infused Documented By: Admin: 03/29/24 08:28 Dose: 400 mls/hr Documented By: ELEAZAR Metoprolol Tartrate (Metoprolol Ir 25 Mg Tablet) 25 mg PO BID [facility] Last Admin: 03/30/24 08:03 Dose: 25 mg Documented By: Admin: 03/29/24 20:13 Dose: 25 mg Documented By: CHRISTIE Oxycodone HCl (Oxycodone Ir 5 Mg Tablet) 10 mg PO NOW ONE Stop: 03/29/24 08:14 Last Admin: 03/29/24 08:29 Dose: 10 mg Documented By: ELEAZAR Oxycodone HCl (Oxycodone Ir 5 Mg Tablet) 10 mg PO Q6H PRN PRN Reason: Pain, Severe (7-10) Last Admin: 03/30/24 11:52 Dose: 10 mg Documented By: CHRISTIE(2) Admin: 03/30/24 05:45 Dose: 10 mg Documented By: Admin: 03/29/24 19:53 Dose: 10 mg Documented By: CHRISTIE Vital Signs Vital signs: Vital Signs - 8 hr 03/30/24 10:30 03/30/24 10:31 03/30/24 10:31 Pulse Rate 67 65 Respiratory Rate Blood Pressure 165/66 H Pulse Oximetry 99 99 Oxygen Delivery Method 03/30/24 11:00 03/30/24 11:02 03/30/24 11:05 Pulse Rate 69 75 Respiratory Rate Blood Pressure 186/81 H Pulse Oximetry Oxygen Delivery Method 03/30/24 12:01 03/30/24 12:30 03/30/24 13:25 Pulse Rate 75 Respiratory Rate 16 Blood Pressure 175/98 H 172/81 H 157/69 H Pulse Oximetry 100 Oxygen Delivery Method Room Air MDM - Extremity Injury (Lower) <Bassam Sears MD - Last Filed: 03/31/24 09:13> Lab Data Attestation: I reviewed the patient's lab results. 03/30/24 05:34 03/30/24 05:34 Labs: Lab Results 03/29/24 03/29/24 03/29/24 Range/Units 07:27 08:39 09:13 WBC 13.5 H (4.5-11.0) X10^3/uL RBC 3.89 L (4.0-5.2) X10^6/uL Hgb 12.0 (12.0-16.0) g/dL Hct 37.7 (36-46) % MCV 96.8 (80-100) fL MCH 30.7 (26-34) PG MCHC 31.7 (30-36) % RDW 23.1 H (11.6-14.8) % Plt Count 845 H (150-400) X10^3/uL Neut % (Auto) 51.0 (50-75) % Lymph % (Auto) 39.7 (25-40) % [place] % (Auto) 3.4 (3-14) % Eos % (Auto) 1.5 L (2-4) % Baso % (Auto) 4.4 H (0-2) % Neut # (Auto) 6900 (1405-3485) /uL Lymph # (Auto) 5300 H (1686-4843) /uL [place] # (Auto) 500 (0-900) /uL Eos # (Auto) 200 (0-450) /uL Baso # (Auto) 600 H (0-100) /uL [place]udge Cells 1+ H RBC Morphology See below Anisocytosis 1+ H Macrocytosis 1+ H [place] Cells 1+ H Acanthocytes (Spur) 1+ H Sodium 135 L (137-145) mmol/L Potassium 5.1 (3.4-5.1) mmol/L Chloride 109 H (98-107) mmol/L Carbon Dioxide 10 L (22-32) mmol/L BUN 43 H (7-17) mg/dL Creatinine 1.78 H (0.52-1.04) mg/dL Estimated GFR 30 L (>60) mL/min BUN/Creatinine Ratio 24.2 H (6-22) Glucose 88 (80-110) mg/dL Calcium 9.4 (8.4-10.2) mg/dL Total Bilirubin 0.5 (0.2-1.3) mg/dL AST 31 (14-36) IU/L ALT 15 (<35) IU/L Alkaline Phosphatase 236 H (38-126) U/L Total Protein 8.2 (6.3-8.2) g/dL Albumin 4.3 (3.5-5.0) g/dL Globulin 3.9 (1.7-4.1) g/dL Albumin/Globulin Ratio 1.1 (1.0-2.8) Urine RBC None seen (0-5/HPF) Urine WBC 1-5/hpf (0-5/HPF) Ur Squamous Epith Cells 0-1 /hpf (0-5/HPF) Ur Transition Epith Cell 0-1/hpf (0-5/HPF) Urine Bacteria Occasional (0-1) (None) Ur Culture Indicated? Specimen cultured Vol Urine Centrifuged 10ml (spun) SARS-CoV-2 (PCR) Negative (Negative) 03/30/24 Range/Units 05:34 WBC 12.9 H (4.5-11.0) X10^3/uL RBC 3.63 L (4.0-5.2) X10^6/uL Hgb 11.4 L (12.0-16.0) g/dL Hct 34.9 L (36-46) % MCV 96.2 (80-100) fL MCH 31.3 (26-34) PG MCHC 32.5 (30-36) % RDW 23.3 H (11.6-14.8) % Plt Count 736 H (150-400) X10^3/uL Neut % (Auto) 53.4 (50-75) % Lymph % (Auto) 36.5 (25-40) % [place] % (Auto) 5.7 (3-14) % Eos % (Auto) 2.8 (2-4) % Baso % (Auto) 1.6 (0-2) % Neut # (Auto) 6900 (1088-8766) /uL Lymph # (Auto) 4700 H (1461-6032) /uL [place] # (Auto) 700 (0-900) /uL Eos # (Auto) 400 (0-450) /uL Baso # (Auto) 200 H (0-100) /uL Smudge Cells RBC Morphology See below Anisocytosis 3+ H D Macrocytosis [place] Cells Acanthocytes (Spur) Sodium 138 (137-145) mmol/L Potassium 5.0 (3.4-5.1) mmol/L Chloride 116 H (98-107) mmol/L Carbon Dioxide 11 L (22-32) mmol/L BUN 39 H (7-17) mg/dL Creatinine 1.36 H (0.52-1.04) mg/dL Estimated GFR 41 L (>60) mL/min BUN/Creatinine Ratio 28.7 H (6-22) Glucose 87 (80-110) mg/dL Calcium 8.9 (8.4-10.2) mg/dL Total Bilirubin (0.2-1.3) mg/dL AST (14-36) IU/L ALT (<35) IU/L Alkaline Phosphatase (38-126) U/L Total Protein (6.3-8.2) g/dL Albumin (3.5-5.0) g/dL Globulin (1.7-4.1) g/dL Albumin/Globulin Ratio (1.0-2.8) Urine RBC (0-5/HPF) Urine WBC (0-5/HPF) Ur Squamous Epith Cells (0-5/HPF) Ur Transition Epith Cell (0-5/HPF) Urine Bacteria (None) Ur Culture Indicated? Vol Urine Centrifuged SARS-CoV-2 (PCR) (Negative) Urine Dip Bedside Urine Glucose Negative Bedside Urine Bilirubin - Negative Bedside Urine Ketone - Negative Urine Specific [place] 1.010 Bedside Urine Occult Blood - Negative Bedside Urine pH 6.0 Bedside Urine Protein - Negative Bedside Urine Urobilinogen - Negative Bedside Urine Nitrite - Negative Bedside Urine Leukocytes +/- 15 Esterase MDM Narrative Medical decision making narrative: 73-year-old female with history of prior remote medardo ORIF tib-fib, more recently had ground level fall and sustained distal femur fracture 03/08/2024, transferred to [facility], had surgical repair, discharge 4 days ago, had apparently declined long-term placement that was advised, caregiver was planned to be facilitating ADLs but decreased availability recent couple of days, she has been doing more activity in her home. She has increasing pain to the left hip and thigh and knee. No new fall. No swelling. No redness or discharge or fevers. We will obtain x-rays left hip femur knee. She had no relief from pre-hospital IV fentanyl, we will give IV Dilaudid for now. Her initial injury was also for lack of in-house intermittent caregiver, does not sound like that is working well, consider long-term placement if patient willing. Consider physical therapy consult if no new fracture injuries identified X-rays show no new injuries, internal fix it is femur fracture noted, old ORIF tib-fib hardware partially visualized as well, seem intact. Patient has inadequate home support services, had initial injury when her part- time home caregiver did not show up, and she had declined long-term placement postoperatively from femur fracture, citing availability of same unreliable caregiver, has postoperatively been doing too many ADLs on her own, with increasing left thigh pain. She likely would benefit from long-term placement. PT consult and school social worker consult requested. Signed out to [facility] ED shift physician Dr. Hayes Koo I have seen evaluated patient myself. She continues to have pain. Records from her review happy received reviewed. PT evaluation ordered the ED weight-bearing status. I actually spoke with in confirmed with KARIE Duran left lower extremity for 6 weeks is ambulation with walking assisted device. Patient evaluated by social work and PT. Most likely will be placed at [facility] tomorrow. She has been given pain medication throughout the day Home medication has been placed 03/29/24, 1800. Sign-out from Dr. Koo. Patient known to me from initial presentation last night. Interim PT evaluation, clarification of postoperative weight-bearing status, patient is to have assisted nonweightbearing. Patient accepted for transfer to [facility] rehab facility, likely transport tomorrow. Assumed interim care. 03/30/24, 0700. Uneventful overnight course, slept overnight, signed out to Dr Koo. Dr. Koo-patient evaluated this morning reports that her pain is not well- controlled only Dilaudid controls her pain oxycodone has not been working though it has been scheduled and given. Awaiting for social work placement this morning. She would like to go to rehab with Dilaudid which I have explained to her is not possible. Patient stating that she does not want to go to [facility] of she gets Dilaudid for that her pain will be controlled. I stated that I am not in charge of what she gets at rehab and that her pain medication will be adjusted accordingly. She is now refusing to go to [place] she understands that she might be able to care for herself at home but she does not want rehab and now arrangements are being made for her to go home. [facility] has not actually accepted her they were waiting on insurance approval. <Melisa Koo DO - Last Filed: 03/30/24 18:10> Lab Data Labs: Lab Results 03/29/24 03/29/24 03/29/24 Range/Units 07:27 08:39 09:13 WBC 13.5 H (4.5-11.0) X10^3/uL RBC 3.89 L (4.0-5.2) X10^6/uL Hgb 12.0 (12.0-16.0) g/dL Hct 37.7 (36-46) % MCV 96.8 (80-100) fL MCH 30.7 (26-34) PG MCHC 31.7 (30-36) % RDW 23.1 H (11.6-14.8) % Plt Count 845 H (150-400) X10^3/uL Neut % (Auto) 51.0 (50-75) % Lymph % (Auto) 39.7 (25-40) % [place] % (Auto) 3.4 (3-14) % Eos % (Auto) 1.5 L (2-4) % Baso % (Auto) 4.4 H (0-2) % Neut # (Auto) 6900 (9858-4822) /uL Lymph # (Auto) 5300 H (0332-4869) /uL [place] # (Auto) 500 (0-900) /uL Eos # (Auto) 200 (0-450) /uL Baso # (Auto) 600 H (0-100) /uL [place]udge Cells 1+ H RBC Morphology See below Anisocytosis 1+ H Macrocytosis 1+ H [place] Cells 1+ H Acanthocytes (Spur) 1+ H Sodium 135 L (137-145) mmol/L Potassium 5.1 (3.4-5.1) mmol/L Chloride 109 H (98-107) mmol/L Carbon Dioxide 10 L (22-32) mmol/L BUN 43 H (7-17) mg/dL Creatinine 1.78 H (0.52-1.04) mg/dL Estimated GFR 30 L (>60) mL/min BUN/Creatinine Ratio 24.2 H (6-22) Glucose 88 (80-110) mg/dL Calcium 9.4 (8.4-10.2) mg/dL Total Bilirubin 0.5 (0.2-1.3) mg/dL AST 31 (14-36) IU/L ALT 15 (<35) IU/L Alkaline Phosphatase 236 H (38-126) U/L Total Protein 8.2 (6.3-8.2) g/dL Albumin 4.3 (3.5-5.0) g/dL Globulin 3.9 (1.7-4.1) g/dL Albumin/Globulin Ratio 1.1 (1.0-2.8) Urine RBC None seen (0-5/HPF) Urine WBC 1-5/hpf (0-5/HPF) Ur Squamous Epith Cells 0-1 /hpf (0-5/HPF) Ur Transition Epith Cell 0-1/hpf (0-5/HPF) Urine Bacteria Occasional (0-1) (None) Ur Culture Indicated? Specimen cultured Vol Urine Centrifuged 10ml (spun) SARS-CoV-2 (PCR) Negative (Negative) 03/30/24 Range/Units 05:34 WBC 12.9 H (4.5-11.0) X10^3/uL RBC 3.63 L (4.0-5.2) X10^6/uL Hgb 11.4 L (12.0-16.0) g/dL Hct 34.9 L (36-46) % MCV 96.2 (80-100) fL MCH 31.3 (26-34) PG MCHC 32.5 (30-36) % RDW 23.3 H (11.6-14.8) % Plt Count 736 H (150-400) X10^3/uL Neut % (Auto) 53.4 (50-75) % Lymph % (Auto) 36.5 (25-40) % [place] % (Auto) 5.7 (3-14) % Eos % (Auto) 2.8 (2-4) % Baso % (Auto) 1.6 (0-2) % Neut # (Auto) 6900 (0446-9678) /uL Lymph # (Auto) 4700 H (9152-8779) /uL [place] # (Auto) 700 (0-900) /uL Eos # (Auto) 400 (0-450) /uL Baso # (Auto) 200 H (0-100) /uL [place] Cells RBC Morphology See below Anisocytosis 3+ H D Macrocytosis [place] Cells Acanthocytes (Spur) Sodium 138 (137-145) mmol/L Potassium 5.0 (3.4-5.1) mmol/L Chloride 116 H (98-107) mmol/L Carbon Dioxide 11 L (22-32) mmol/L BUN 39 H (7-17) mg/dL Creatinine 1.36 H (0.52-1.04) mg/dL Estimated GFR 41 L (>60) mL/min BUN/Creatinine Ratio 28.7 H (6-22) Glucose 87 (80-110) mg/dL Calcium 8.9 (8.4-10.2) mg/dL Total Bilirubin (0.2-1.3) mg/dL AST (14-36) IU/L ALT (<35) IU/L Alkaline Phosphatase (38-126) U/L Total Protein (6.3-8.2) g/dL Albumin (3.5-5.0) g/dL Globulin (1.7-4.1) g/dL Albumin/Globulin Ratio (1.0-2.8) Urine RBC (0-5/HPF) Urine WBC (0-5/HPF) Ur Squamous Epith Cells (0-5/HPF) Ur Transition Epith Cell (0-5/HPF) Urine Bacteria (None) Ur Culture Indicated? Vol Urine Centrifuged SARS-CoV-2 (PCR) (Negative) Urine Dip Bedside Urine Glucose Negative Bedside Urine Bilirubin - Negative Bedside Urine Ketone - Negative Urine Specific [place] 1.010 Bedside Urine Occult Blood - Negative Bedside Urine pH 6.0 Bedside Urine Protein - Negative Bedside Urine Urobilinogen - Negative Bedside Urine Nitrite - Negative Bedside Urine Leukocytes +/- 15 Esterase MDM Narrative Medical decision making narrative: 73-year-old female with history of prior remote medardo ORIF tib-fib, more recently had ground level fall and sustained distal femur fracture 03/08/2024, transferred to [facility], had surgical repair, discharge 4 days ago, had apparently declined long-term placement that was advised, caregiver was planned to be facilitating ADLs but decreased availability recent couple of days, she has been doing more activity in her home. She has increasing pain to the left hip and thigh and knee. No new fall. No swelling. No redness or discharge or fevers. We will obtain x-rays left hip femur knee. She had no relief from pre-hospital IV fentanyl, we will give IV Dilaudid for now. Her initial injury was also for lack of in-house intermittent caregiver, does not sound like that is working well, consider long-term placement if patient willing. Consider physical therapy consult if no new fracture injuries identified X-rays show no new injuries, internal fix it is femur fracture noted, old ORIF tib-fib hardware partially visualized as well, seem intact. Patient has inadequate support services, had initial injury when her alleged home part-time caregiver did not show up, and she had declined long-term placement postoperatively from femur fracture citing availability of part-time caregiver, who also seems to not be available, and postoperatively she has been doing ADLs on her own, with increasing pain. She likely would benefit from long-term placement. PT consult and school social worker consult requested. Signed out to [facility] ED shift physician Dr. Hayes Koo I have seen evaluated patient myself. She continues to have pain. Records from her review happy received reviewed. PT evaluation ordered the ED weight-bearing status. I actually spoke with in confirmed with YUDI DuranWKelton left lower extremity for 6 weeks is ambulation with walking assisted device. Patient evaluated by social work and PT. Most likely will be placed at [facility] tomorrow. She has been given pain medication throughout the day Home medication has been placed 03/29/24, 1800. Sign-out from Dr. Koo. Patient known to me from initial presentation last night. Interim PT evaluation, clarification of postoperative weight-bearing status, patient is to have assisted nonweightbearing per notes received on discharge summary per Dr Koo. Patient accepted for transfer to [facility], likely transport tomorrow. Assumed interim care. 03/30/24, 0700. Uneventful overnight course, transfer later this morning to [facility] rehab facility planned. Dr. Koo-patient evaluated this morning reports that her pain is not well- controlled only Dilaudid controls her pain oxycodone has not been working though it has been scheduled and given. Awaiting for social work placement this morning. She would like to go to rehab with Dilaudid which I have explained to her is not possible. Patient stating that she does not want to go to [facility] emergency department loss of she gets Dilaudid for that her pain will be controlled. I stated that I am not in charge of what she gets at rehab and that her pain medication will be adjusted accordingly. She is now refusing to go to [facility] emergency department do she understands that she might be able to care for herself at home but she does not want rehab and now arrangements are being made for her to go home. [facility] has not actually accepted her they were waiting on insurance approval. Discharge Plan Departure Patient Disposition: Home Clinical Impression: Post-operative pain, History of femur fracture Activity Restrictions/Additional Instructions: *You have been diagnosed with postoperative pain *What to do: You were offered to go to [facility] rehab where your pain medication would be adjusted where you could have help rehab as your bone heals however you are choosing to go home please contact your primary care provider in regards to your pain medication refills *Continue to take medications as directed *Follow up with your primary care provider in 2-3 days or call [phone] *Return to ER if you should have any new, worsening or concerning symptoms Prescriptions: No Action atorvastatin 40 mg tablet 40 mg PO DAILY Qty: 90 2RF aspirin [Adult Aspirin Regimen] 81 mg tablet,delayed release (DR/EC) 81 mg PO DAILY Qty: 90 2RF Ensure Plus 0.05 gram- 1.5 kcal/mL liquid 1 ea PO TID Qty: 5688 6RF Rx Instructions: Chocolate flavor is requested. pantoprazole [Protonix] 40 mg tablet,delayed release (DR/EC) 40 mg PO DAILY Qty: 90 3RF bisacodyl [Dulcolax (bisacodyl)] 10 mg suppository 10 mg MO DAILY PRN (Reason: Constipation) polyethylene glycol 3350 [Miralax] 17 gram/dose powder 17 g PO DAILY gabapentin 300 mg capsule 900 mg PO TID Qty: 270 5RF carisoprodol 350 mg tablet 350 mg PO TID PRN (Reason: muscle pain) Qty: 90 5RF oxycodone 10 mg tablet 10 mg PO QID PRN (Reason: pain) Qty: 120 0RF metoprolol tartrate 25 mg tablet 25 mg PO BID Rx Instructions: Increased from 12.5 to 25 mg bid per 03/26 note. duloxetine 20 mg Capsule,Delayed Release(Dr/Ec) 20 mg PO BID diclofenac sodium 1 % gel 2 g topical 4XD PRN (Reason: pain) Referrals: Ricardo Cantu MD [Primary Care Provider] - Stand Alone Forms: Patient Portal/API
--- NOTE | 2024-03-29 05:59 | DI.RAD.S_ITS ---
PROCEDURE: XR PELVIS 1-2V INDICATIONS: recent left femur fx surgery, inc pain TECHNIQUE: 1 view(s) of the pelvis acquired. COMPARISON: None. FINDINGS: Bones: A femoral intramedullary medardo is partially imaged and grossly normal. Healing pelvic fractures show anatomic alignment and callus formation. There is no acute fracture. Alignment is anatomic. Soft tissues: Visualized bowel gas pattern is normal. No suspicious soft tissue calcifications. IMPRESSION: No acute bony abnormality. Dictated by: Hailey Malone M.D. on 03/29/2024 at 8:25 Approved by: Hailey Malone M.D. on 03/29/2024 at 8:29
--- NOTE | 2024-03-29 06:00 | DI.RAD.S_ITS ---
PROCEDURE: XR FEMUR LT MIN 2V INDICATIONS: recent femur fx, inc pain TECHNIQUE: 2 views of the femur were acquired. COMPARISON: [facility], CR, XR FEMUR LT MIN 2V, 03/08/2024, 20:26. [facility], CR, XR FEMUR LT MIN 2V, 03/02/2023, 23:03. FINDINGS: Bones: Intramedullary medardo and nail fixation of the femur shows intact hardware without surrounding lucency. The distal femoral fracture is in grossly anatomic alignment shows some interval bridging trabeculation and periosteal reaction. Healing pelvic fractures are shown Soft tissues: No suspicious soft tissue calcifications or masses. IMPRESSION: Post-traumatic and postsurgical changes of the femur without evidence of acute injury. Dictated by: Hailey Malone M.D. on 03/29/2024 at 8:29 Approved by: Hailey Malone M.D. on 03/29/2024 at 8:31
--- NOTE | 2024-03-29 06:01 | DI.RAD.S_ITS ---
PROCEDURE: XR KNEE LT 3V INDICATIONS: left knee pain, recent distal femur fx repair TECHNIQUE: 3 views of the knee were acquired. COMPARISON: [facility], CR, XR KNEE LT 1TO2V, 03/08/2024, 19:44. [facility], CR, XR KNEE LT 3V, 12/13/2022, 15:40. FINDINGS: Bones: Intramedullary medardo and nail fixation of the femur and tibia shows intact hardware without surrounding lucency. The distal humeral fracture is in gross anatomic alignment with interval healing. There is no acute fracture.. Soft tissues: No joint effusion. No suspicious soft tissue calcifications. IMPRESSION: Postsurgical and post-traumatic changes without evidence of acute injury. Dictated by: Hailey Malone M.D. on 03/29/2024 at 8:32 Approved by: Hailey Malone M.D. on 03/29/2024 at 8:33
[2024-03-29] MEDS: HYDROMORPHONE 0.5 MG INJ IV (06:07)
[2024-03-29 07:48] LABS: COVID19 -Nasal RAPID Negative (Negative)
[2024-03-29] MEDS: ACETAMINOPHEN IV 1,000 MG/100 ML VIAL 400 MG IV (08:28)
[2024-03-29] MEDS: OXYCODONE IR 5 MG TABLET 10 MG PO ×2 (08:29→19:53)
--- NOTE | 2024-03-29 08:45 | PT-IP ANOTE ---
PT order received. Pt with recent fall and distal left femur fracture and had surgery at [facility]. Remote left tib-fib fracture and surgery. Pt was recommended to go to SNF and she refused and returned home and is in ED for placement. There are no weight bearing orders in the chart that PT can see. PT checks in with nurse who also looks and will check with ED provider when provider is available. Will hold until WB order received.
[2024-03-29 08:59] LABS: Alanine Aminotransferase 15 IU/L (<35); Albumin 4.3 g/dL (3.5-5.0); Albumin Globulin Ratio 1.1 (1.0-2.8); Alkaline Phosphatase 236 U/L (38-126); Aspartate Aminotransferase 31 IU/L (14-36); BUN Creatinine Ratio 24.2 (6-22); Basophils Absolute Auto 600 /uL (0-100); Basophils Percent Auto 4.4 % (0-2); Bilirubin Total 0.5 mg/dL (0.2-1.3); Blood Urea Nitrogen 43 mg/dL (7-17); Calcium 9.4 mg/dL (8.4-10.2); Carbon Dioxide 10 mmol/L (22-32); Chloride 109 mmol/L (98-107); Eosinophils Absolute Auto 200 /uL (0-450); Eosinophils Percent Auto 1.5 % (2-4); Estimated Glomerular Filt Rate 30 mL/min (>60); Globulin 3.9 g/dL (1.7-4.1); Glucose 88 mg/dL (80-110); HEMOLYSIS 21 (0-50); Hematocrit 37.7 % (36-46); Lymphocytes Absolute Auto 5300 /uL (1100-4500); Lymphocytes Percent Auto 39.7 % (25-40); Mean Corpuscular HGB Conc 31.7 % (30-36); Mean Corpuscular Hemoglobin 30.7 PG (26-34); Mean Corpuscular Volume 96.8 fL (80-100); Monocytes Absolute Auto 500 /uL (0-900); Monocytes Percent Auto 3.4 % (3-14); Neutrophils Absolute Auto 6900 /uL (1500-7000); Platelet Count 845 X10^3/uL (150-400); Potassium 5.1 mmol/L (3.4-5.1); Red Blood Cell Count 3.89 X10^6/uL (4.0-5.2); Red Cell Distribution Width 23.1 % (11.6-14.8); Sodium 135 mmol/L (137-145); Total Protein 8.2 g/dL (6.3-8.2); White Blood Cell Count 13.5 X10^3/uL (4.5-11.0)
[2024-03-29 09:04] LABS: Add Manual Diff / Slide Review SLIDE REVIEW
[2024-03-29 09:19] LABS: Acanthocytes 1+; Anisocytosis 1+; Burr Cells 1+; Macrocytosis 1+; Smudge Cells 1+
[2024-03-29 09:31] LABS: Bacteria Urine Occasional (0-1); RBC Urine None Seen (0-5/HPF); Squamous Epithelial Cell Urine 0-1 /HPF (0-5/HPF); Transitional Epi Cells Urine 0-1/HPF (0-5/HPF); Urine Volume 10mL (spun); WBC Urine 1-5/HPF (0-5/HPF)
[2024-03-29 09:32] LABS: Culture Indicated Urine Specimen Cultured
--- NOTE | 2024-03-29 11:21 | PT.IIE ---
Surgical History (Last Reviewed 03/26/24 @ 05:41 by Ricardo Cantu MD) H/O: hysterectomy History of surgery Hx of appendectomy Hx of cholecystectomy Hx of elbow surgery Hx of kyphoplasty (~2013) Hx of kyphoplasty (04/28/19) Hx of kyphoplasty (07/28/19) Hx of tonsillectomy Status post epidural steroid injection (03/25/19) Medical History (Last Updated 03/26/24 @ 05:44 by Ricardo Cantu MD) Acute CO Age-related osteoporosis without current pathological fracture Anxiety Arthritis C. difficile colitis Cerebrovascular disease Chronic low back pain Chronic pain Chronic, continuous use of opioids Closed fracture of left distal femur Closed left clavicular fracture Colitis Coronary artery disease Depression Displaced comminuted fracture of shaft of tibia DJD (degenerative joint disease) Essential hypertension Fibromyalgia Fracture, tibia GERD without esophagitis GI bleeding History of osteomyelitis History of recurrent UTIs History of vertebral compression fracture HLD (hyperlipidemia) Hypertension Immunodeficiency due to conditions classified elsewhere Insomnia Iron (Fe) deficiency anemia Left foot drop Left rib fracture Lumbar compression fracture (02/26/19) Migraines Mixed hyperlipidemia Multiple fractures Nephrolithiasis Neuropathy Numbness and tingling Osteoporosis Peptic ulcer disease Primary osteoarthritis involving multiple joints Radius fracture (08/30/17) Recurrent UTI Renal disease Septic shock Stage 3b chronic kidney disease (CKD) Physical Therapy Inpatient Evaluation/Re-Eval M1 PT/OT-IP Prior Functional Status Start: 03/29/24 08:34 Freq: Status: Active Protocol: Document 03/29/24 10:40 MB (Rec: 03/29/24 11:20 MB [id number]) Medical Review Prior Functional Status Medical History Reviewed Yes Communication Unsure baseline diet Mobility and Gait Pt states that she only performed transfers from bed to BSC and w/c at baseline and that she cannot use a walker because of her her hands/ rheumatological disease and weakness, old right elbow surgery Activities of Daily Living and IADL's Pt reports she lives with caregiver and also has 5 hours of caregiver help, 5x/week when they come and that they did not come after discharge from [facility] Prior Functional Level (Other details) Pt states that she takes bed baths Social History Household Members significant other,caregiver Living Arrangements House Number of Floors (Floors) One Floor Number of Stairs To Enter/Railing? 2 steps and ramp to enter Home Environment Standard Height Toilet,Tub/ Shower Home Equipment Manual Wheelchair,Bedside Commode,Hand Held Shower,Grab Bars Near Toilet,Grab Bars In Shower Employment Status Retired M2 PT-IP Current Condition Start: 03/29/24 08:34 Freq: Status: Active Protocol: Document 03/29/24 10:40 MB (Rec: 03/29/24 11:20 MB [id number]) Physical Therapy Current Condition Current Condition Evaluation Date 03/29/24 Treatment Diagnosis Pain M3 PT-IP Subjective Start: 03/29/24 08:34 Freq: Status: Active Protocol: Document 03/29/24 10:40 MB (Rec: 03/29/24 11:20 MB [id number]) Subjective Physical Therapy Visit Type Type Initial Evaluation Visit Start Time 10:40 Visit Stop Time 10:59 Number of LOGISTICS PROJECT MANAGER Visits 0 Physical Therapy Visit Comments Patient Comments Pt reports high pain in back, pelvis and down left leg. Therapy Pain Assessment Pain When Pain Assessed At Rest Pain Present Pain Present Pain Reported Location LB, pelvis and left leg Intensity 9 Scale Used Numeric (0 - 10) M4 PT-IP Mobility and Gait Start: 03/29/24 08:34 Freq: Status: Active Protocol: Document 03/29/24 10:40 MB (Rec: 03/29/24 11:20 MB [id number]) PT-Bed Mobility Assessment Rolling Type of Rolling Roll to Right,Roll to Left Level of Assist Standby Assistance Supine to Sit Supine to Sit Standby Assistance,1 Person Assistance Sit to Supine Sit to Supine Standby Assistance,1 Person Assistance Scooting Scooting to Edge of Bed Standby Assistance PT-Transfer Assessment Comments Mobility Comments Pt is on [place] gate in ED. She does well moving from supine to sitting to the left side of bed and she sits straight up and then moves legs to the side. She states she cannot use a walker d/t UE issues and she cannot stand or try to take NWB steps and that she will only be willing to try transferring to w/c and BSC going forward and she will transfer to the right. Pt is unable to laterally scoot up to HOB on the gurney d/t back and pelvic pain and also because feet do not touch floor and so she brings legs back up on the bed and lies back flat PT-Balance Assessment Sitting Balance and Reactions Static Sitting Balance Ability Good Dynamic Sitting Balance Ability Poor Comments Other Balance Tests/Deviations/Treatment UE support for sitting to : unweight back and pelvis M5 PT-IP Objective Assessments Start: 03/29/24 08:34 Freq: Status: Active Protocol: Document 03/29/24 10:40 MB (Rec: 03/29/24 11:20 MB [id number]) Orientation Orientation/Cognition Level of Alertness Alert Orientation Name,Age,Situation Language Function Ability No Deficits Noted Safety Awareness Decreased Safety Awareness Comments Pt is [place] and has some decreased insight and does not answer all questions when asked. She begins to talk about home health care aides and when they can come out and she appears to have decreased insight to possible need for SNF at d/c. Gross Range of Motion Upper Extremity ROM Assessment Bilaterally Impaired Impairments R elbow limits full extension and she has muscle wasting in the right arm compared to left and degenerative changes B shoulders Lower Extremity ROM Assessment Bilaterally Impaired Impairments Limited ankle movement B d/t many surgery and right hip and knee are functional. Left knee rests EOB at about 70 deg of flexion and she can only extend knee about 20 deg and she states she was told not to move her knee at [facility]. Poor ankle and toe movement on the left as well, many dressings on LLE. Strength Upper Extremity Strength Assessment Bilaterally Impaired Lower Extremity Strength Assessment Bilaterally Impaired Comments Strength Comments Pt does not tolerate MMT any joint d/t pain, surgical changes Sensation Assessment Sensation Gross Sensation Right LE Impaired,Left LE Impaired Comments Sensation Comments Impaired or absent proproception both feet and pt states she cannot feel her left foot M6 PT-IP Treatment Start: 03/29/24 08:34 Freq: Status: Active Protocol: Document 03/29/24 10:40 MB (Rec: 03/29/24 11:20 MB [id number]) Physical Therapy Treatment Exercises Exercises Ankle Pumps Education Education Provided Weight Bearing Status,Safety M7 PT-IP Assessment and Plan Start: 03/29/24 08:34 Freq: Status: Active Protocol: Document 03/29/24 10:40 MB (Rec: 03/29/24 11:20 MB [id number]) PT Summary Assessment and Plan Potential Rehabilitation Potential Fair Status of Condition at Evaluation Evolving Summary Impairments Pain,ROM,Strength,Balance, Coordination,Sensation,Tone, Cognition,Bed Mobility, Transfers,Gait,Activity Tolerance Progress Towards Goals Slow Progress due to Pain,Slow Progress - Other Assessment Summary Pt is a 73 y/o female reporting 8.5/10 pain in back, pelvis and LLE and PT documents as 9 under c/o pain given cannot enter a .5 amount. Pt with history of many falls and reports of neuropathy and poor function and sensation LLE. She reports numerous surgeries of the LLE , bone fragility and that she has a lot of hardware. ROM and strength are limited in all limbs. Pt does well with bed mobility on the plinth though she cannot laterally scoot d/t gurney height and she states she will not try to stand up to a walker d/t NWB status LLE and UE issues. She anticipates transfers going forward in life. When PT brings up d/c to SNF, pt starts to talk about her caregivers at home and there appears to be a disconnect with pt understanding that going home from [facility] didn't work and that she might need to consider SNF. Currently, recommend SNF at d/ c and therapy can progress safe transfers and improved functional balance and strength. Goals Bed Mobility Goal Independent Transfer Goal Standby Assistance,Slide Board Other Goals Pt will perform all transfers from bed to BSC to chair to w/ c with use of LRAD or SB with no more than superv assistance . Days to Meet Goals 5 Frequency of Treatment Frequency Of Treatment Once a Day Treatment Plan Physical Therapy Treatment Plan Bed Mobility Training,Transfer Training,Therapeutic Exercise ,Balance Retraining,Post Op Education,Discharge Planning, Hot or Cold Pack,Neuromuscular Re-ed,Coordination Retraining ,Manual Therapy Precautions Other Precautions PT does not see left knee ROM limitation order but anticipate that she should limit LLE knee ROM post-op Weight Bearing Status Weight Bearing Status Non-Weight Bearing Allowed Weight Bearing Amount (enter % LLE or #) (%) Recommendations To Nursing Amount of Assist Needed Mechanical Lift Discharge Recommendations PT Discharge Recommendations SNF Rehab Transportation Needs at Discharge Wheelchair/Cabulance
[2024-03-29] MEDS: HYDROMORPHONE 2 MG INJ 1 MG SUBCUT (14:24)
--- NOTE | 2024-03-29 14:55 | PC.NURSE ---
switched to a bed. incont of urine . purewick catheter set up.
--- NOTE | 2024-03-29 16:10 | CM.DANOTE ---
DCP Assessment Note: Pt is a 73yo female, resident of [place], is boarding in the ED as she has intractable hip pain from a femure fracture/surgery completed at the end of last month. Pt lives in a house with her significant other, Syed, and has a caregiver who provides care 4 days/week, currently. Pt's Primary Care Provider is Dr. Ricardo Cantu and insurance is [facility] and Medicaid. Reviewed chart and team rounds for pt's medical status and initial discharge needs. Pre discharge summary review from pt's stay at [facility] on 03/08-03/19, pt was being recommended for SNF Rehab but pt declined because she believed she could rehabilitate with services and her caregiver who was contracted for 5 days/week. Unfortunately, pt returned home with this plan but her caregiver is ill and could not be there for initial care needs at discharge. Per PT evaluation, pt is recommended for SNF Rehab at this time. ED ROTARY SAW OPERATOR met w/patient at bedside; introduced self and role. Patient was found in bed, alert and oriented, cooperative with assessment. Pt endorsed being in a lot of pain, kept eyes closed for majority of assessment. Pt confirmed living situation and good support in significant other and typically, her KIZZY caregiver (Tia Tello) before her caregiver fell ill and could not take care of her at this time. ED ROTARY SAW OPERATOR recommendations of SNF Rehab, pt agreeable and believes this is important for her healing. Pt expressed preference for [facility] but it was determined that this agency is not in the network of her insurance. Pt agreed to referral being sent to [facility]. ED ROTARY SAW OPERATOR sent referral to [facility] who is reviewing pt, it was reported that there is a chance pt can be accepted by tomorrow, 03/30, pending insurance authorization. Plan: Pt to board in ED until [facility] ROTARY SAW OPERATOR and staff will follow closely for coordination of discharge plans. BALTA Bates Discharge Planning/Care Management CM Discharge Assessment Start: 03/29/24 16:01 Freq: Status: Active Protocol: Document 03/29/24 16:01 MW (Rec: 03/29/24 16:10 MW [id number]) Discharge Planning Assessment Assigned Edge Banding Machine Offbearer JANET Butterfield DPOA/Assigned Designee Name Valerio Blanco Contact Information [phone] Advance Directives? Yes Advance Directives on File No History Provided By Patient,Family Member,Medical Record Has Patient been admitted in last 30 No days? Comment Patient was admitted at [facility] at 03/08-03/19. Prior Living Arrangements House Household Members significant other,caregiver Type of transporation used prior to Relies on Others admit Independent with ADL's No Is patient alert and oriented? Yes Needs Assistance With Eating,Toileting,Managing Medications,Home Chores / Shopping Caregiver for Another No DME Already Rented / Owned Wheelchair Patient/Family Preference Penitentiary Facility Discharge Plan Penitentiary Facility Transportation Arrangement Facility Referrals Initiated Penitentiary If patient plan is SNF: Has PASSR been Yes completed? SNF/HH Preference Pt preference for [facility] but they are not in -network of pt's insurance. Pt consented to referral to [facility]. Has Agency SNF been contacted Yes Comment Referral sent to [facility] and , insurance authorization is in review, pending acceptance. Whiteboard Updated in Patient Room with Yes name and ext. # of Edge Banding Machine Offbearer Please Provide Date Initial DC 03/29/24 Assessment Was Performed Next Review Type Continued Stay Review
[2024-03-29] MEDS: GABAPENTIN 300 MG CAPSULE 900 MG PO (20:12)
[2024-03-29] MEDS: METOPROLOL IR 25 MG TABLET PO (20:13)
--- NOTE | 2024-03-29 20:43 | PC.NURSE ---
Assumed cares from JESUS Herrera. Pt lying back in [facility]. Appears in no acute distress.
[2024-03-30] VITALS (30 sets, daily range): BP systolic 91–186; BP diastolic 50–98; PULSE 55–84; RESP 16–18; TEMP 36.9; O2SAT 96–100
[2024-03-30 05:44] LABS: Add Manual Diff / Slide Review NO; Basophils Absolute Auto 200 /uL (0-100); Basophils Percent Auto 1.6 % (0-2); Eosinophils Absolute Auto 400 /uL (0-450); Eosinophils Percent Auto 2.8 % (2-4); Hematocrit 34.9 % (36-46); Hemoglobin 11.4 g/dL (12.0-16.0); Lymphocytes Absolute Auto 4700 /uL (1100-4500); Lymphocytes Percent Auto 36.5 % (25-40); Mean Corpuscular HGB Conc 32.5 % (30-36); Mean Corpuscular Hemoglobin 31.3 PG (26-34); Mean Corpuscular Volume 96.2 fL (80-100); Monocytes Absolute Auto 700 /uL (0-900); Monocytes Percent Auto 5.7 % (3-14); Neutrophils Absolute Auto 6900 /uL (1500-7000); Neutrophils Percent Auto 53.4 % (50-75); Platelet Count 736 X10^3/uL (150-400); Red Blood Cell Count 3.63 X10^6/uL (4.0-5.2); Red Cell Distribution Width 23.3 % (11.6-14.8); White Blood Cell Count 12.9 X10^3/uL (4.5-11.0)
[2024-03-30] MEDS: OXYCODONE IR 5 MG TABLET 10 MG PO ×2 (05:45→11:52)
[2024-03-30 05:52] LABS: BUN Creatinine Ratio 28.7 (6-22); Blood Urea Nitrogen 39 mg/dL (7-17); Calcium 8.9 mg/dL (8.4-10.2); Carbon Dioxide 11 mmol/L (22-32); Chloride 116 mmol/L (98-107); Estimated Glomerular Filt Rate 41 mL/min (>60); Glucose 87 mg/dL (80-110); HEMOLYSIS < 15 (0-50); Sodium 138 mmol/L (137-145)
[2024-03-30 05:56] LABS: Anisocytosis 3+
[2024-03-30] MEDS: ATORVASTATIN 20 MG TABLET 40 MG PO (08:03)
[2024-03-30] MEDS: HYDROMORPHONE 2 MG INJ 1 MG SUBCUT (08:03)
[2024-03-30] MEDS: GABAPENTIN 300 MG CAPSULE 900 MG PO (08:03)
[2024-03-30] MEDS: METOPROLOL IR 25 MG TABLET PO (08:03)
[2024-03-30] MEDS: DULOXETINE 20 MG CAPSULE PO (08:11)
--- NOTE | 2024-03-30 13:10 | PC.NURSE ---
Addendum entered by Juliette Suarez R.N. 03/30/24 13:29: Per provider patient is not leaving AMA, she is being discharged home. Original Note: Patient informed this RN that she was not going to [facility] r/t medication management that she can just take my tens at home if that's what they're going to give me there. Informed CERTIFIED WELDING INSPECTOR Greer and Dr Koo of patient's desire to change plans. Per patient her boyfriend Patrick would be home to receive her from the ambulance. Dr Koo spoke to patient and after conversation told this RN to arrange ambulance home. Patient limited to no weight baring d/t healing lower extremity fracture. CERTIFIED WELDING INSPECTOR made are that patient is leaving AMA.
--- NOTE | 2024-03-30 13:48 | PC.NURSE ---
PRIZER HAND note: this naphtha washing system operator , provided genie-care on pt. and changed brief. pt was able to rotate to right side to assist in brief change.
--- NOTE | 2024-03-30 13:57 | CM.SWNOTE ---
ED/DCP Continued: Reviewed EMR and team rounds for pt?s medical status. Per EMR, no medical changes over night. At 1105, ED SENIOR WIND ENERGY CONSULTANT called [facility] intake, it was reported that pt is still pending admission due to insurance authorization needed. ED SENIOR WIND ENERGY CONSULTANT entered room to check in with pt, pt endorsed frustration as she feels she not not being heard when she endorses pain. ED SENIOR WIND ENERGY CONSULTANT provided reflective listening to validate pt's response, educated pt on utilizing the pain scale to verbalize pain level she is experiencing so RN can administer pain meds as needed. ED notified RN and ED Provider of pt's verbalized concerns. JESUS Corona returned to pt room with scheduled pain medication and gave pt education of scheduled pain medication with SENIOR WIND ENERGY CONSULTANT witnessing, pt verbalized understanding and took scheduled pain medication. ED SENIOR WIND ENERGY CONSULTANT was notified by RN that pt would like to discharge home, ED Provider got pt ready for discharge, ED Staff assisted with BLS transport arrangement. ED SENIOR WIND ENERGY CONSULTANT called [facility] and confirmed that pt is still under their services although insurance auth was trying to be changed for SNF admit. [facility] confirmed that pt has an OT appointment tomorrow and is still under their care. ED SENIOR WIND ENERGY CONSULTANT to send ED Summary to [facility]. ED SENIOR WIND ENERGY CONSULTANT notified [facility] Intake and notified that plan of care changed and pt will be discharging home, requesting to cancel referral for SNF Rehab. Plan: Pt to discharge home with home health ([facility]), caregiver and significant other. Pt to discharge with [facility] BLS transport. BALTA Bates
== END 2024-03-30 13:58 | disposition home or self-care (01) ==
PROVIDERS: Emergency Provider Emergency Medicine; PCP Internal Medicine
DX: G89.18 Other acute postprocedural pain (principal); Z11.52 Encounter for screening for COVID-19; Z87.81 Personal history of (healed) traumatic fracture
CPT/HCPCS: 36415; 72170; 73552; 73562; 80048; 80053; 81003; 81015; 85025; 87086; 87635; 96365; 96372; 96375; 96376; 97161; 99284; J0136; J1170

== ENCOUNTER 2024-04-29 13:13 | Observation (INO) | payer MEDICARE, MEDICAID, SELFPAY ==
[2022-07-22 07:16] VITALS: RESP 28
[2022-07-22 14:33] VITALS: PULSE 127; RESP 38; O2SAT 100
[2023-03-03 06:00] VITALS: BMI 19.1
[2024-04-29] VITALS (15 sets, daily range): BP systolic 142–199; BP diastolic 65–94; PULSE 67–98; RESP 8–20; TEMP 35.9–36.2; O2SAT 99–100; BMI 17.9; BMI 18.6
--- NOTE | 2024-04-29 14:46 | ED_ITS ---
HPI - Female Genitourinary <Percy Chang MD - Last Filed: 05/22/24 12:20> General Chief complaint: Urogenital-Female Stated complaint: uti? sepsis? sent from home health Time Seen by Provider: 04/29/24 14:22 Source: patient and other Mode of arrival: Wheelchair History of Present Illness HPI Narrative: Patient brought here by home health provider for intractable nausea decreased oral intake, decreased urine output. Has history of nonfunctional left kidney due to multiple kidney stones. Patient gets frequent UTIs and feels like another 1 coming. History of sepsis from UTIs. Vital signs are reassuring at this time. Patient in no distress. Related Data Home Medications Medication Instructions Recorded Confirmed bisacodyl 10 mg rectal suppository 10 mg KS DAILY PRN Constipation 08/21/22 04/30/24 (Dulcolax (bisacodyl)) metoprolol tartrate 25 mg tablet 25 mg PO DAILY 03/26/24 04/30/24 aspirin 81 mg tablet,delayed 81 mg PO DAILY 04/13/24 04/30/24 release (Adult Aspirin Regimen) Previous Rx's Medication Instructions Recorded atorvastatin 40 mg tablet 40 mg PO DAILY #90 tabs 10/03/23 gabapentin 300 mg capsule 900 mg (3 x 300 mg) PO TID #270 10/28/23 caps food supplemt, lactose-reduced 1 ea PO TID #5,688 mL 11/20/23 0.05 gram-1.5 kcal/mL oral liquid (Ensure Plus) pantoprazole 40 mg tablet,delayed 40 mg PO DAILY #90 tabs 01/22/24 release (Protonix) carisoprodol 350 mg tablet 350 mg PO TID PRN muscle pain #90 02/06/24 tabs cefuroxime axetil 500 mg tablet 500 mg PO BID #14 tabs 05/01/24 oxycodone 10 mg tablet 10 mg PO QID PRN pain #120 tabs 05/01/24 diclofenac sodium 1 % topical gel 2 g topical 4XD PRN pain #100 grams 05/19/24 Allergies Allergy/AdvReac Type Severity Reaction Status Date / Time furosemide [From Lasix] Allergy Intermediate Rash Verified 04/29/24 13:31 tramadol [TRAMADOL] Allergy Unknown Verified 04/29/24 13:31 amitriptyline [AMITRIPTYLINE] AdvReac Intermediate Confusion Verified 04/29/24 13:31 duloxetine AdvReac Intermediate GI distress Verified 04/29/24 13:31 Review of Systems <Percy Chang MD - Last Filed: 05/22/24 12:20> Review of Systems Narrative: GENERAL: negative chills, fatigue, malaise, fever, sweats. HEENT: negative sinus pain, ear pain, sore throat RESPIRATORY: negative dyspnea, cough CARDIOVASCULAR: negative chest pain, palpitations GASTROINTESTINAL: Positive nausea, vomiting, abdominal pain : negative dysuria, frequency, hematuria MUSCULOSKELETAL: negative muscle or bony pain SKIN: negative rash, skin lesions NEUROLOGIC: negative weakness, numbness Patient History <Percy Chang MD - Last Filed: 05/22/24 12:20> Medical History Closed fracture of left distal femur Immunodeficiency due to conditions classified elsewhere Age-related osteoporosis without current pathological fracture History of vertebral compression fracture GERD without esophagitis Chronic, continuous use of opioids Primary osteoarthritis involving multiple joints Chronic low back pain Stage 3b chronic kidney disease (CKD) Mixed hyperlipidemia Essential hypertension Cerebrovascular disease Coronary artery disease Recurrent UTI Displaced comminuted fracture of shaft of tibia Acute AL Septic shock Left rib fracture Closed left clavicular fracture Iron (Fe) deficiency anemia Nephrolithiasis Peptic ulcer disease History of osteomyelitis Fracture, tibia Left foot drop Numbness and tingling Lumbar compression fracture (02/26/19) HLD (hyperlipidemia) C. difficile colitis Colitis Anxiety Insomnia Arthritis DJD (degenerative joint disease) Depression Fibromyalgia Migraines Multiple fractures Osteoporosis Radius fracture (08/30/17) Neuropathy History of recurrent UTIs Renal disease Hypertension Chronic pain GI bleeding Surgical History Hx of kyphoplasty (07/28/19) Hx of kyphoplasty (04/28/19) Hx of kyphoplasty (~2013) Hx of elbow surgery Hx of appendectomy Hx of cholecystectomy Status post epidural steroid injection (03/25/19) H/O: hysterectomy Hx of tonsillectomy History of surgery Family History Mother No known health problems COPD (chronic obstructive pulmonary disease) Father No known health problems tobacco type: vaping alcohol intake frequency: holidays/special occasions only Substance Use Type: does not use and former substance user Exam <Percy Chang MD - Last Filed: 05/22/24 12:20> Narrative Exam Narrative: GENERAL: in no distress, not toxic not dyspneic HEAD: Normocephalic. EYES: Pupils equal round ENT: Mucous membranes moist. NECK: Trachea midline. CARDIOVASCULAR: Regular rate and rhythm RESPIRATORY: Clear to auscultation. Breath sounds equal bilaterally. No wheezes, rales, or rhonchi. GASTROINTESTINAL: Abdomen soft, non-tender no CVA tenderness no peritoneal signs no rebound no guarding EXTREMITIES: No gross deformities. BACK: No flank tenderness. NEURO: AOx4. Clear speech SKIN: Warm and dry PSYCH: Not anxious, is cooperative Initial Vital Signs Initial Vital Signs: Vital Signs Temperature 97.1 F L 04/29/24 13:28 Pulse Rate 98 H 04/29/24 13:28 Respiratory Rate 16 04/29/24 13:28 Blood Pressure 156/90 H 04/29/24 13:28 Pulse Oximetry 100 04/29/24 13:28 Oxygen Delivery Method Room Air 04/29/24 13:28 <Cynthia Bashir DO - Last Filed: 04/29/24 22:54> Initial Vital Signs Initial Vital Signs: Vital Signs Temperature 97.1 F L 04/29/24 13:28 Pulse Rate 98 H 04/29/24 13:28 Respiratory Rate 16 04/29/24 13:28 Blood Pressure 156/90 H 04/29/24 13:28 Pulse Oximetry 100 04/29/24 13:28 Oxygen Delivery Method Room Air 04/29/24 13:28 Course <Percy Chang MD - Last Filed: 05/22/24 12:20> Orders Ordered: Discontinued Medications Acetaminophen (Acetaminophen 325 Mg Tablet) 650 mg PO Q6H PRN PRN Reason: Fever/Mild Pain (1-3) Last Admin: 05/01/24 08:22 Dose: 650 mg Documented By: Admin: 05/01/24 02:27 Dose: 650 mg Documented By: Admin: 04/30/24 20:16 Dose: 650 mg Documented By: GRACIE Heparin Sodium (Porcine) (Heparin 5,000 Unit/Ml Vial) 5,000 unit SUBCUT BID LACY Last Admin: 05/01/24 08:15 Dose: 5,000 unit Documented By: Admin: 04/30/24 20:05 Dose: 5,000 unit Documented By: Admin: 04/30/24 08:20 Dose: 5,000 unit Documented By: WALLACE Sodium Chloride (Normal Saline 0.9%) 1,000 mls @ 1,000 mls/hr IV BOLUS ONE Stop: 04/29/24 15:44 Last Infusion: 04/29/24 16:52 Dose: Infused Documented By: Admin: 04/29/24 15:35 Dose: 1,000 mls/hr Documented By: CLAUDIA Sodium Chloride (Normal Saline 0.9%) 1,000 mls @ 130 mls/hr IV CONT LACY Last Admin: 04/29/24 17:43 Dose: 130 mls/hr Documented By: MARY Ceftriaxone Sodium 2,000 mg/ (Sodium Chloride) 100 mls @ 200 mls/hr IV NOW ONE Stop: 04/29/24 18:31 Last Infusion: 04/29/24 19:38 Dose: Infused Documented By: Admin: 04/29/24 19:02 Dose: 200 mls/hr Documented By: Dextrose/Sodium Chloride (Dextrose 5%-0.9% Ns) 1,000 mls @ 100 mls/hr IV CONT LACY Stop: 04/30/24 09:00 Last Infusion: 04/30/24 08:05 Dose: 100 mls/hr Documented By: Admin: 04/30/24 00:05 Dose: 100 mls/hr Documented By: KANE Ceftriaxone Sodium 1,000 mg/ (Sodium Chloride) 100 mls @ 200 mls/hr IV Q24H LACY Last Infusion: 04/30/24 20:04 Dose: Infused Documented By: Admin: 04/30/24 18:41 Dose: 200 mls/hr Documented By: WALLACE Sodium Bicarbonate 150 meq/ (Dextrose) 1,150 mls @ 75 mls/hr IV CONT LACY Last Infusion: 04/30/24 20:06 Dose: 75 mls/hr Documented By: Admin: 04/30/24 20:05 Dose: 150 mls/hr Documented By: Infusion: 04/30/24 20:05 Dose: Infused Documented By: Admin: 04/30/24 08:04 Dose: 150 mls/hr Documented By: WALLACE Magnesium Sulfate (Magnesium Sulfate) 4 gm in 100 mls @ 25 mls/hr IV NOW ONE Stop: 04/30/24 18:29 Last Admin: 04/30/24 15:08 Dose: 25 mls/hr Documented By: WALLACE Co-signed By: HEMA Magnesium Chloride (Magnesium Chloride 64 Mg Tablet) 128 mg PO NOW ONE Stop: 04/30/24 14:01 Last Admin: 04/30/24 15:35 Dose: Not Given Documented By: WALLACE Morphine Sulfate (Morphine 2 Mg/Ml Inj) 2 mg IV NOW ONE Stop: 04/29/24 16:40 Last Admin: 04/29/24 16:55 Dose: 2 mg Documented By: CLAUDIA Morphine Sulfate (Morphine 4 Mg/Ml Inj) 4 mg IV Q6HR PRN PRN Reason: Pain, Severe (7-10) Last Admin: 04/30/24 08:23 Dose: 4 mg Documented By: Admin: 04/30/24 01:43 Dose: 4 mg Documented By: KANE Morphine Sulfate (Morphine 2 Mg/Ml Inj) 2 mg IV Q4HR PRN PRN Reason: Pain, Moderate (4-6) Stop: 05/01/24 06:00 Last Admin: 05/01/24 04:29 Dose: 2 mg Documented By: Admin: 04/30/24 23:45 Dose: 2 mg Documented By: GRACIE Naloxone HCl (Naloxone 0.4 Mg/Ml Vial) 0.2 mg IV Q2MIN PRN PRN Reason: Opiate Reversal Ondansetron HCl (Ondansetron 4 Mg/2 Ml Inj) 4 mg IV NOW PRN PRN Reason: Nausea And Vomiting Last Admin: 04/29/24 16:55 Dose: 4 mg Documented By: CLAUDIA Ondansetron HCl (Ondansetron 4 Mg Odt) 4 mg PO NOW PRN PRN Reason: Nausea And Vomiting Ondansetron HCl (Ondansetron 4 Mg/2 Ml Inj) 4 mg IV Q8HR PRN PRN Reason: Nausea And Vomiting Oxycodone HCl (Oxycodone Ir 10 Mg Tablet) 10 mg PO Q6HR PRN PRN Reason: Pain, Severe (7-10) Last Admin: 05/01/24 08:15 Dose: 10 mg Documented By: Admin: 05/01/24 02:27 Dose: 10 mg Documented By: Admin: 04/30/24 20:05 Dose: 10 mg Documented By: GRACIE Oxycodone HCl (Oxycodone Ir 10 Mg Tablet) 10 mg PO NOW ONE Stop: 05/01/24 10:19 Last Admin: 05/01/24 11:22 Dose: 10 mg Documented By: CHINO Potassium Chloride (Potassium Chloride 20 Meq Tab) 20 meq PO NOW ONE Stop: 04/30/24 14:01 Last Admin: 04/30/24 15:37 Dose: Not Given Documented By: WALLACE Potassium Chloride (Potassium Chloride 20 Meq Tab) 40 meq PO NOW ONE Stop: 04/30/24 14:32 Last Admin: 04/30/24 15:15 Dose: 40 meq Documented By: WALLACE Sodium Chloride (Sodium Chloride 0.9% Flush) 10 ml IV PRN PRN PRN Reason: Flush Last Admin: 05/01/24 04:31 Dose: 10 ml Documented By: Admin: 04/30/24 23:46 Dose: 10 ml Documented By: GRACIE Sodium Chloride (Sodium Chloride 0.9% Flush) 10 ml IV BID LACY Last Admin: 05/01/24 09:29 Dose: Not Given Documented By: CHINO Vital Signs Vital signs: Vital Signs - 8 hr 04/29/24 15:43 04/29/24 16:08 04/29/24 18:29 Pulse Rate 89 87 81 Respiratory Rate 20 16 17 Blood Pressure 155/91 H 199/90 H Pulse Oximetry 100 100 100 Oxygen Delivery Method Room Air Room Air 04/29/24 18:30 04/29/24 18:30 04/29/24 19:00 Pulse Rate 79 70 Respiratory Rate 19 10 L Blood Pressure 149/75 H Pulse Oximetry 100 100 Oxygen Delivery Method 04/29/24 19:00 04/29/24 19:30 04/29/24 19:30 Pulse Rate 71 Respiratory Rate 15 Blood Pressure 168/77 H 142/77 H Pulse Oximetry 100 Oxygen Delivery Method 04/29/24 20:00 04/29/24 20:00 04/29/24 20:30 Pulse Rate 70 71 Respiratory Rate 18 12 Blood Pressure 179/84 H Pulse Oximetry 100 100 Oxygen Delivery Method <Cynthia Bashir, - Last Filed: 04/29/24 22:54> Orders Ordered: Discontinued Medications Acetaminophen (Acetaminophen 325 Mg Tablet) 650 mg PO Q6H PRN PRN Reason: Fever/Mild Pain (1-3) Last Admin: 05/01/24 08:22 Dose: 650 mg Documented By: Admin: 05/01/24 02:27 Dose: 650 mg Documented By: Admin: 04/30/24 20:16 Dose: 650 mg Documented By: GRACIE Heparin Sodium (Porcine) (Heparin 5,000 Unit/Ml Vial) 5,000 unit SUBCUT BID LACY Last Admin: 05/01/24 08:15 Dose: 5,000 unit Documented By: Admin: 04/30/24 20:05 Dose: 5,000 unit Documented By: Admin: 04/30/24 08:20 Dose: 5,000 unit Documented By: WALLACE Sodium Chloride (Normal Saline 0.9%) 1,000 mls @ 1,000 mls/hr IV BOLUS ONE Stop: 04/29/24 15:44 Last Infusion: 04/29/24 16:52 Dose: Infused Documented By: Admin: 04/29/24 15:35 Dose: 1,000 mls/hr Documented By: CLAUDIA Sodium Chloride (Normal Saline 0.9%) 1,000 mls @ 130 mls/hr IV CONT LACY Last Admin: 04/29/24 17:43 Dose: 130 mls/hr Documented By: TC Ceftriaxone Sodium 2,000 mg/ (Sodium Chloride) 100 mls @ 200 mls/hr IV NOW ONE Stop: 04/29/24 18:31 Last Infusion: 04/29/24 19:38 Dose: Infused Documented By: Admin: 04/29/24 19:02 Dose: 200 mls/hr Documented By: Dextrose/Sodium Chloride (Dextrose 5%-0.9% Ns) 1,000 mls @ 100 mls/hr IV CONT LACY Stop: 04/30/24 09:00 Last Infusion: 04/30/24 08:05 Dose: 100 mls/hr Documented By: Admin: 04/30/24 00:05 Dose: 100 mls/hr Documented By: KANE Ceftriaxone Sodium 1,000 mg/ (Sodium Chloride) 100 mls @ 200 mls/hr IV Q24H LACY Last Infusion: 04/30/24 20:04 Dose: Infused Documented By: Admin: 04/30/24 18:41 Dose: 200 mls/hr Documented By: WALLACE Sodium Bicarbonate 150 meq/ (Dextrose) 1,150 mls @ 75 mls/hr IV CONT LACY Last Infusion: 04/30/24 20:06 Dose: 75 mls/hr Documented By: Admin: 04/30/24 20:05 Dose: 150 mls/hr Documented By: Infusion: 04/30/24 20:05 Dose: Infused Documented By: Admin: 04/30/24 08:04 Dose: 150 mls/hr Documented By: WALLACE Magnesium Sulfate (Magnesium Sulfate) 4 gm in 100 mls @ 25 mls/hr IV NOW ONE Stop: 04/30/24 18:29 Last Admin: 04/30/24 15:08 Dose: 25 mls/hr Documented By: WALLACE Co-signed By: [facility] Magnesium Chloride (Magnesium Chloride 64 Mg Tablet) 128 mg PO NOW ONE Stop: 04/30/24 14:01 Last Admin: 04/30/24 15:35 Dose: Not Given Documented By: WALLACE Morphine Sulfate (Morphine 2 Mg/Ml Inj) 2 mg IV NOW ONE Stop: 04/29/24 16:40 Last Admin: 04/29/24 16:55 Dose: 2 mg Documented By: CLAUDIA Morphine Sulfate (Morphine 4 Mg/Ml Inj) 4 mg IV Q6HR PRN PRN Reason: Pain, Severe (7-10) Last Admin: 04/30/24 08:23 Dose: 4 mg Documented By: Admin: 04/30/24 01:43 Dose: 4 mg Documented By: KANE Morphine Sulfate (Morphine 2 Mg/Ml Inj) 2 mg IV Q4HR PRN PRN Reason: Pain, Moderate (4-6) Stop: 05/01/24 06:00 Last Admin: 05/01/24 04:29 Dose: 2 mg Documented By: Admin: 04/30/24 23:45 Dose: 2 mg Documented By: GRACIE Naloxone HCl (Naloxone 0.4 Mg/Ml Vial) 0.2 mg IV Q2MIN PRN PRN Reason: Opiate Reversal Ondansetron HCl (Ondansetron 4 Mg/2 Ml Inj) 4 mg IV NOW PRN PRN Reason: Nausea And Vomiting Last Admin: 04/29/24 16:55 Dose: 4 mg Documented By: CLAUDIA Ondansetron HCl (Ondansetron 4 Mg Odt) 4 mg PO NOW PRN PRN Reason: Nausea And Vomiting Ondansetron HCl (Ondansetron 4 Mg/2 Ml Inj) 4 mg IV Q8HR PRN PRN Reason: Nausea And Vomiting Oxycodone HCl (Oxycodone Ir 10 Mg Tablet) 10 mg PO Q6HR PRN PRN Reason: Pain, Severe (7-10) Last Admin: 05/01/24 08:15 Dose: 10 mg Documented By: Admin: 05/01/24 02:27 Dose: 10 mg Documented By: Admin: 04/30/24 20:05 Dose: 10 mg Documented By: GRACIE Oxycodone HCl (Oxycodone Ir 10 Mg Tablet) 10 mg PO NOW ONE Stop: 05/01/24 10:19 Last Admin: 05/01/24 11:22 Dose: 10 mg Documented By: CHINO Potassium Chloride (Potassium Chloride 20 Meq Tab) 20 meq PO NOW ONE Stop: 04/30/24 14:01 Last Admin: 04/30/24 15:37 Dose: Not Given Documented By: WALLACE Potassium Chloride (Potassium Chloride 20 Meq Tab) 40 meq PO NOW ONE Stop: 04/30/24 14:32 Last Admin: 04/30/24 15:15 Dose: 40 meq Documented By: WALLACE Sodium Chloride (Sodium Chloride 0.9% Flush) 10 ml IV PRN PRN PRN Reason: Flush Last Admin: 05/01/24 04:31 Dose: 10 ml Documented By: Admin: 04/30/24 23:46 Dose: 10 ml Documented By: GRACIE Sodium Chloride (Sodium Chloride 0.9% Flush) 10 ml IV BID LACY Last Admin: 05/01/24 09:29 Dose: Not Given Documented By: CHINO Vital Signs Vital signs: Vital Signs - 8 hr 04/29/24 15:43 04/29/24 16:08 04/29/24 18:29 Pulse Rate 89 87 81 Respiratory Rate 20 16 17 Blood Pressure 155/91 H 199/90 H Pulse Oximetry 100 100 100 Oxygen Delivery Method Room Air Room Air 04/29/24 18:30 04/29/24 18:30 04/29/24 19:00 Pulse Rate 79 70 Respiratory Rate 19 10 L Blood Pressure 149/75 H Pulse Oximetry 100 100 Oxygen Delivery Method 04/29/24 19:00 04/29/24 19:30 04/29/24 19:30 Pulse Rate 71 Respiratory Rate 15 Blood Pressure 168/77 H 142/77 H Pulse Oximetry 100 Oxygen Delivery Method 04/29/24 20:00 04/29/24 20:00 04/29/24 20:30 Pulse Rate 70 71 Respiratory Rate 18 12 Blood Pressure 179/84 H Pulse Oximetry 100 100 Oxygen Delivery Method MDM - Female Genitourinary <Percy Chang MD - Last Filed: 05/22/24 12:20> Lab Data 04/30/24 10:50 04/30/24 11:35 Labs: Lab Results 04/29/24 04/29/24 04/29/24 Range/Units 06:32 15:00 16:00 WBC 10.2 11.4 H (4.5-11.0) X10^3/uL RBC 3.57 L 3.66 L (4.0-5.2) X10^6/uL Hgb 11.6 L 12.0 (12.0-16.0) g/dL Hct 35.7 L 36.9 (36-46) % MCV 100.2 H 100.7 H (80-100) fL MCH 32.7 32.8 (26-34) PG MCHC 32.6 32.6 (30-36) % RDW 21.2 H 20.4 H (11.6-14.8) % Plt Count 463 H 552 H (150-400) X10^3/uL Neut % (Auto) 69.5 62.8 (50-75) % Lymph % (Auto) 23.7 L 30.6 (25-40) % Winkler % (Auto) 5.0 4.9 (3-14) % Eos % (Auto) 1.0 L 0.9 L (2-4) % Baso % (Auto) 0.8 0.8 (0-2) % Neut # (Auto) 7100 H 7100 H (9503-5761) /uL Lymph # (Auto) 2400 3500 (4470-8195) /uL Winkler # (Auto) 500 600 (0-900) /uL Eos # (Auto) 100 100 (0-450) /uL Baso # (Auto) 100 100 (0-100) /uL RBC Morphology See below See below Anisocytosis 2+ H Macrocytosis 1+ H 1+ H Target Cells Not Reportable Rouleaux 1+ H PT 11.1 (9.4-12.5) SECONDS INR 1.0 (0.9-1.3) ABG Sample Site ABG pH (7.35-7.45) ABG pCO2 (35-45) mmHg ABG pO2 (80-100) mmHg ABG HCO3 (23-27) mmol/L ABG Total CO2 (23-27) mmol/L ABG O2 Saturation (95-100) % ABG Base Excess (-2-3) mmol/L Master Test O2 Delivery Device FiO2 % % Sodium (137-145) mmol/L Potassium (3.4-5.1) mmol/L Chloride (98-107) mmol/L Carbon Dioxide (22-32) mmol/L BUN (7-17) mg/dL Creatinine (0.52-1.04) mg/dL Estimated GFR (>60) mL/min BUN/Creatinine Ratio (6-22) Glucose (80-110) mg/dL Lactate (0.7-2.1) mmol/L Calcium (8.4-10.2) mg/dL Total Bilirubin (0.2-1.3) mg/dL AST (14-36) IU/L ALT (<35) IU/L Alkaline Phosphatase (38-126) U/L Ammonia (9-30) umol/L Total Protein (6.3-8.2) g/dL Albumin (3.5-5.0) g/dL Globulin (1.7-4.1) g/dL Albumin/Globulin Ratio (1.0-2.8) Lipase (23-300) U/L Procalcitonin (<0.5) ng/mL TSH (0.47-4.68) uIU/mL Urine RBC (0-5/HPF) Urine WBC (0-5/HPF) Ur Squamous Epith Cells (0-5/HPF) Urine Bacteria (None) Ur Culture Indicated? Vol Urine Centrifuged Ketones (<0.27) mmol/L 04/29/24 04/29/24 04/29/24 Range/Units 17:00 17:17 17:18 WBC (4.5-11.0) X10^3/uL RBC (4.0-5.2) X10^6/uL Hgb (12.0-16.0) g/dL Hct (36-46) % MCV (80-100) fL MCH (26-34) PG MCHC (30-36) % RDW (11.6-14.8) % Plt Count (150-400) X10^3/uL Neut % (Auto) (50-75) % Lymph % (Auto) (25-40) % Winkler % (Auto) (3-14) % Eos % (Auto) (2-4) % Baso % (Auto) (0-2) % Neut # (Auto) (2262-8866) /uL Lymph # (Auto) (8880-2585) /uL Winkler # (Auto) (0-900) /uL Eos # (Auto) (0-450) /uL Baso # (Auto) (0-100) /uL RBC Morphology Anisocytosis Macrocytosis Target Cells Rouleaux PT (9.4-12.5) SECONDS INR (0.9-1.3) ABG Sample Site ABG pH (7.35-7.45) ABG pCO2 (35-45) mmHg ABG pO2 (80-100) mmHg ABG HCO3 (23-27) mmol/L ABG Total CO2 (23-27) mmol/L ABG O2 Saturation (95-100) % ABG Base Excess (-2-3) mmol/L Master Test O2 Delivery Device FiO2 % % Sodium 137 (137-145) mmol/L Potassium 4.3 (3.4-5.1) mmol/L Chloride 115 H (98-107) mmol/L Carbon Dioxide 5 L* (22-32) mmol/L BUN 22 H (7-17) mg/dL Creatinine 1.13 H (0.52-1.04) mg/dL Estimated GFR 52 L (>60) mL/min BUN/Creatinine Ratio 19.5 (6-22) Glucose 91 (80-110) mg/dL Lactate 1.0 (0.7-2.1) mmol/L Calcium 8.5 (8.4-10.2) mg/dL Total Bilirubin 0.5 (0.2-1.3) mg/dL AST 28 (14-36) IU/L ALT 13 (<35) IU/L Alkaline Phosphatase 199 H (38-126) U/L Ammonia (9-30) umol/L Total Protein 6.7 (6.3-8.2) g/dL Albumin 3.6 (3.5-5.0) g/dL Globulin 3.1 (1.7-4.1) g/dL Albumin/Globulin Ratio 1.2 (1.0-2.8) Lipase 1075 H (23-300) U/L Procalcitonin 42.4 H (<0.5) ng/mL TSH 3.01 (0.47-4.68) uIU/mL Urine RBC None seen (0-5/HPF) Urine WBC 5-10/hpf H (0-5/HPF) Ur Squamous Epith Cells None seen (0-5/HPF) Urine Bacteria None seen (None) Ur Culture Indicated? Specimen cultured Vol Urine Centrifuged 10ml (spun) Ketones 0.64 H (<0.27) mmol/L 04/29/24 04/29/24 Range/Units 20:17 20:33 WBC (4.5-11.0) X10^3/uL RBC (4.0-5.2) X10^6/uL Hgb (12.0-16.0) g/dL Hct (36-46) % MCV (80-100) fL MCH (26-34) PG MCHC (30-36) % RDW (11.6-14.8) % Plt Count (150-400) X10^3/uL Neut % (Auto) (50-75) % Lymph % (Auto) (25-40) % Winkler % (Auto) (3-14) % Eos % (Auto) (2-4) % Baso % (Auto) (0-2) % Neut # (Auto) (1174-3886) /uL Lymph # (Auto) (7935-8700) /uL Winkler # (Auto) (0-900) /uL Eos # (Auto) (0-450) /uL Baso # (Auto) (0-100) /uL RBC Morphology Anisocytosis Macrocytosis Target Cells Rouleaux PT (9.4-12.5) SECONDS INR (0.9-1.3) ABG Sample Site Right radial ABG pH 7.29 L* (7.35-7.45) ABG pCO2 22.5 L* (35-45) mmHg ABG pO2 125 H (80-100) mmHg ABG HCO3 11 L (23-27) mmol/L ABG Total CO2 10 L (23-27) mmol/L ABG O2 Saturation 99 (95-100) % ABG Base Excess -13.9 L (-2-3) mmol/L Master Test Positive O2 Delivery Device Ra FiO2 % 21 % % Sodium (137-145) mmol/L Potassium (3.4-5.1) mmol/L Chloride (98-107) mmol/L Carbon Dioxide (22-32) mmol/L BUN (7-17) mg/dL Creatinine (0.52-1.04) mg/dL Estimated GFR (>60) mL/min BUN/Creatinine Ratio (6-22) Glucose (80-110) mg/dL Lactate (0.7-2.1) mmol/L Calcium (8.4-10.2) mg/dL Total Bilirubin (0.2-1.3) mg/dL AST (14-36) IU/L ALT (<35) IU/L Alkaline Phosphatase (38-126) U/L Ammonia < 9 L (9-30) umol/L Total Protein (6.3-8.2) g/dL Albumin (3.5-5.0) g/dL Globulin (1.7-4.1) g/dL Albumin/Globulin Ratio (1.0-2.8) Lipase (23-300) U/L Procalcitonin (<0.5) ng/mL TSH (0.47-4.68) uIU/mL Urine RBC (0-5/HPF) Urine WBC (0-5/HPF) Ur Squamous Epith Cells (0-5/HPF) Urine Bacteria (None) Ur Culture Indicated? Vol Urine Centrifuged Ketones (<0.27) mmol/L Urine Dip Bedside Urine Glucose Negative Bedside Urine Bilirubin - Negative Bedside Urine Ketone - Negative Urine Specific Mcalpin 1.015 Bedside Urine Occult Blood +/- Bedside Urine pH 6.0 Bedside Urine Protein +/- 15 Bedside Urine Urobilinogen - Negative Bedside Urine Nitrite - Negative Bedside Urine Leukocytes +/- [address] scan - abdomen/pelvis: Radiologist's Impression: [address] [id number] [address] Scan Report Signed Patient: Emani Leiva MR#: [id number] : 1950 Acct:[id number] Age/Sex: 73 / F Date of Service: 04/29/24 Loc: ED Accession Number: [id number] Procedure: CT kidney ureter bladder (KUB) Ordering Provider: Percy Chang MD PROCEDURE: CT KIDNEY URETER BLADDER (KUB) INDICATIONS: Left flank pain TECHNIQUE: Axial sections were acquired from the lung bases to the pubic symphysis. Coronal and sagittal reformats were performed. For radiation dose reduction, the following was used: automated exposure control, adjustment of mA and/or kV according to patient size. COMPARISON: [facility], CT, CT ABDOMEN PELVIS W CON, 03/03/2023, 2:57. FINDINGS: Image quality: Diagnostic. Lower Chest: No significant findings. URINARY: Right Kidney: Renal atrophy. Multifocal areas of large calcification are present, unchanged. Right Ureter: No hydroureter. Left Kidney: No stones or hydronephrosis. Left Ureter: No hydroureter. Bladder: Normal wall thickness. No stones. ABDOMEN: Liver: No contour-deforming solid mass. Gallbladder: Removed Biliary ducts: No biliary dilation. Pancreas: No ductal dilation. Spleen: Size is within normal limits. Adrenal Glands: No adrenal nodules. Stomach and Bowel: Normal colonic caliber, without significant wall thickening. Moderate colonic stool. Mildly distended anterior bowel loops. Peritoneum: No abnormal intraperitoneal fluid. No free air. Ventral Wall: No hernia. Abdominal Nodes: No enlarged retroperitoneal or mesenteric lymph nodes. Vessels: Aorta and inferior vena cava are normal in size. PELVIS: Pelvic Organs: Unremarkable. Pelvic Nodes: Unremarkable. Miscellaneous: No inguinal hernias are seen. Bones: Left femoral fixation. Multilevel compression deformities with cement. IMPRESSION: No obstructing stones or hydronephrosis. Moderate colonic stool. Mildly distended non fluid-filled anterior bowel loops overall nonspecific. Dictated by: Nikia Nolasco M.D. on 04/29/2024 at 15:41 Approved by: Nikia Nolasco M.D. on 04/29/2024 at 15:43 MDM Narrative Medical decision making narrative: Patient brought here by home health provider for intractable nausea decreased oral intake, decreased urine output. Has history of nonfunctional left kidney due to multiple kidney stones. Patient gets frequent UTIs and feels like another 1 coming. History of sepsis from UTIs. Vital signs are reassuring at this time. Patient in no distress. After history and exam CBC CMP urinalysis CT KUB Zofran normal saline MDM Medical records reviewed: No recent visit for this complaint Differential considered: Includes but not limited to UTI cystitis pyelonephritis sepsis kidney stone dehydration renal failure Lab Test results independently reviewed as above. Pertinent findings: WBC 11.4 hemoglobin 12.0 sodium 137 potassium 4.3 chloride 115 bicarb 5 BUN 22 creatinine 1.13 GFR 52 lipase 1075, nonspecific has no epigastric pain Imaging studies independently reviewed: CT KUB no acute finding Consultations: s/w dr cantu, his pt, however will need further workup lactic acid procalcitonin blood culture Rocephin and called night dark for admit. Treatments: Zofran normal saline Re-evaluations: 6:15 p.m. updated patient needs for admit. Feeling better. Discussion: Appropriate for admission for possible pre sepsis. Antibiotics fluids have been started. Lactic acid blood culture procalcitonin. Diagnosis: UTI dehydration 6:[address] Chang: Sign out to dr bashir, awaiting for laboratory studies. Patient will need to be admitted. Antibiotics have been started. <Cynthia Bashir, DO - Last Filed: 04/29/24 22:54> Lab Data Labs: Lab Results 04/29/24 04/29/24 04/29/24 Range/Units 06:32 15:00 16:00 WBC 10.2 11.4 H (4.5-11.0) X10^3/uL RBC 3.57 L 3.66 L (4.0-5.2) X10^6/uL Hgb 11.6 L 12.0 (12.0-16.0) g/dL Hct 35.7 L 36.9 (36-46) % MCV 100.2 H 100.7 H (80-100) fL MCH 32.7 32.8 (26-34) PG MCHC 32.6 32.6 (30-36) % RDW 21.2 H 20.4 H (11.6-14.8) % Plt Count 463 H 552 H (150-400) X10^3/uL Neut % (Auto) 69.5 62.8 (50-75) % Lymph % (Auto) 23.7 L 30.6 (25-40) % [place] % (Auto) 5.0 4.9 (3-14) % Eos % (Auto) 1.0 L 0.9 L (2-4) % Baso % (Auto) 0.8 0.8 (0-2) % Neut # (Auto) 7100 H 7100 H (4835-7881) /uL Lymph # (Auto) 2400 3500 (8054-8706) /uL [place] # (Auto) 500 600 (0-900) /uL Eos # (Auto) 100 100 (0-450) /uL Baso # (Auto) 100 100 (0-100) /uL RBC Morphology See below See below Anisocytosis 2+ H Macrocytosis 1+ H 1+ H Target Cells Not Reportable Rouleaux 1+ H PT 11.1 (9.4-12.5) SECONDS INR 1.0 (0.9-1.3) ABG Sample Site ABG pH (7.35-7.45) ABG pCO2 (35-45) mmHg ABG pO2 (80-100) mmHg ABG HCO3 (23-27) mmol/L ABG Total CO2 (23-27) mmol/L ABG O2 Saturation (95-100) % ABG Base Excess (-2-3) mmol/L Master Test O2 Delivery Device FiO2 % % Sodium (137-145) mmol/L Potassium (3.4-5.1) mmol/L Chloride (98-107) mmol/L Carbon Dioxide (22-32) mmol/L BUN (7-17) mg/dL Creatinine (0.52-1.04) mg/dL Estimated GFR (>60) mL/min BUN/Creatinine Ratio (6-22) Glucose (80-110) mg/dL Lactate (0.7-2.1) mmol/L Calcium (8.4-10.2) mg/dL Total Bilirubin (0.2-1.3) mg/dL AST (14-36) IU/L ALT (<35) IU/L Alkaline Phosphatase (38-126) U/L Ammonia (9-30) umol/L Total Protein (6.3-8.2) g/dL Albumin (3.5-5.0) g/dL Globulin (1.7-4.1) g/dL Albumin/Globulin Ratio (1.0-2.8) Lipase (23-300) U/L Procalcitonin (<0.5) ng/mL TSH (0.47-4.68) uIU/mL Urine RBC (0-5/HPF) Urine WBC (0-5/HPF) Ur Squamous Epith Cells (0-5/HPF) Urine Bacteria (None) Ur Culture Indicated? Vol Urine Centrifuged Ketones (<0.27) mmol/L 04/29/24 04/29/24 04/29/24 Range/Units 17:00 17:17 17:18 WBC (4.5-11.0) X10^3/uL RBC (4.0-5.2) X10^6/uL Hgb (12.0-16.0) g/dL Hct (36-46) % MCV (80-100) fL MCH (26-34) PG MCHC (30-36) % RDW (11.6-14.8) % Plt Count (150-400) X10^3/uL Neut % (Auto) (50-75) % Lymph % (Auto) (25-40) % [place] % (Auto) (3-14) % Eos % (Auto) (2-4) % Baso % (Auto) (0-2) % Neut # (Auto) (6113-6330) /uL Lymph # (Auto) (3358-3540) /uL [place] # (Auto) (0-900) /uL Eos # (Auto) (0-450) /uL Baso # (Auto) (0-100) /uL RBC Morphology Anisocytosis Macrocytosis Target Cells Rouleaux PT (9.4-12.5) SECONDS INR (0.9-1.3) ABG Sample Site ABG pH (7.35-7.45) ABG pCO2 (35-45) mmHg ABG pO2 (80-100) mmHg ABG HCO3 (23-27) mmol/L ABG Total CO2 (23-27) mmol/L ABG O2 Saturation (95-100) % ABG Base Excess (-2-3) mmol/L Master Test O2 Delivery Device FiO2 % % Sodium 137 (137-145) mmol/L Potassium 4.3 (3.4-5.1) mmol/L Chloride 115 H (98-107) mmol/L Carbon Dioxide 5 L* (22-32) mmol/L BUN 22 H (7-17) mg/dL Creatinine 1.13 H (0.52-1.04) mg/dL Estimated GFR 52 L (>60) mL/min BUN/Creatinine Ratio 19.5 (6-22) Glucose 91 (80-110) mg/dL Lactate 1.0 (0.7-2.1) mmol/L Calcium 8.5 (8.4-10.2) mg/dL Total Bilirubin 0.5 (0.2-1.3) mg/dL AST 28 (14-36) IU/L ALT 13 (<35) IU/L Alkaline Phosphatase 199 H (38-126) U/L Ammonia (9-30) umol/L Total Protein 6.7 (6.3-8.2) g/dL Albumin 3.6 (3.5-5.0) g/dL Globulin 3.1 (1.7-4.1) g/dL Albumin/Globulin Ratio 1.2 (1.0-2.8) Lipase 1075 H (23-300) U/L Procalcitonin 42.4 H (<0.5) ng/mL TSH 3.01 (0.47-4.68) uIU/mL Urine RBC None seen (0-5/HPF) Urine WBC 5-10/hpf H (0-5/HPF) Ur Squamous Epith Cells None seen (0-5/HPF) Urine Bacteria None seen (None) Ur Culture Indicated? Specimen cultured Vol Urine Centrifuged 10ml (spun) Ketones 0.64 H (<0.27) mmol/L 04/29/24 04/29/24 Range/Units 20:17 20:33 WBC (4.5-11.0) X10^3/uL RBC (4.0-5.2) X10^6/uL Hgb (12.0-16.0) g/dL Hct (36-46) % MCV (80-100) fL MCH (26-34) PG MCHC (30-36) % RDW (11.6-14.8) % Plt Count (150-400) X10^3/uL Neut % (Auto) (50-75) % Lymph % (Auto) (25-40) % [place] % (Auto) (3-14) % Eos % (Auto) (2-4) % Baso % (Auto) (0-2) % Neut # (Auto) (5899-6446) /uL Lymph # (Auto) (3997-9351) /uL [place] # (Auto) (0-900) /uL Eos # (Auto) (0-450) /uL Baso # (Auto) (0-100) /uL RBC Morphology Anisocytosis Macrocytosis Target Cells Rouleaux PT (9.4-12.5) SECONDS INR (0.9-1.3) ABG Sample Site Right radial ABG pH 7.29 L* (7.35-7.45) ABG pCO2 22.5 L* (35-45) mmHg ABG pO2 125 H (80-100) mmHg ABG HCO3 11 L (23-27) mmol/L ABG Total CO2 10 L (23-27) mmol/L ABG O2 Saturation 99 (95-100) % ABG Base Excess -13.9 L (-2-3) mmol/L Master Test Positive O2 Delivery Device Ra FiO2 % 21 % % Sodium (137-145) mmol/L Potassium (3.4-5.1) mmol/L Chloride (98-107) mmol/L Carbon Dioxide (22-32) mmol/L BUN (7-17) mg/dL Creatinine (0.52-1.04) mg/dL Estimated GFR (>60) mL/min BUN/Creatinine Ratio (6-22) Glucose (80-110) mg/dL Lactate (0.7-2.1) mmol/L Calcium (8.4-10.2) mg/dL Total Bilirubin (0.2-1.3) mg/dL AST (14-36) IU/L ALT (<35) IU/L Alkaline Phosphatase (38-126) U/L Ammonia < 9 L (9-30) umol/L Total Protein (6.3-8.2) g/dL Albumin (3.5-5.0) g/dL Globulin (1.7-4.1) g/dL Albumin/Globulin Ratio (1.0-2.8) Lipase (23-300) U/L Procalcitonin (<0.5) ng/mL TSH (0.47-4.68) uIU/mL Urine RBC (0-5/HPF) Urine WBC (0-5/HPF) Ur Squamous Epith Cells (0-5/HPF) Urine Bacteria (None) Ur Culture Indicated? Vol Urine Centrifuged Ketones (<0.27) mmol/L Urine Dip Bedside Urine Glucose Negative Bedside Urine Bilirubin - Negative Bedside Urine Ketone - Negative Urine Specific [place] 1.015 Bedside Urine Occult Blood +/- Bedside Urine pH 6.0 Bedside Urine Protein +/- 15 Bedside Urine Urobilinogen - Negative Bedside Urine Nitrite - Negative Bedside Urine Leukocytes +/- 15 Esterase [facility] Narrative Medical decision making narrative: Patient brought here by home health provider for intractable nausea decreased oral intake, decreased urine output. Has history of nonfunctional left kidney due to multiple kidney stones. Patient gets frequent UTIs and feels like another 1 coming. History of sepsis from UTIs. Vital signs are reassuring at this time. Patient in no distress. After history and exam CBC CMP urinalysis CT KUB Zofran normal saline [facility] Medical records reviewed: No recent visit for this complaint Differential considered: Includes but not limited to UTI cystitis pyelonephritis sepsis kidney stone dehydration renal failure Lab Test results independently reviewed as above. Pertinent findings: WBC 11.4 hemoglobin 12.0 sodium 137 potassium 4.3 chloride 115 bicarb 5 BUN 22 creatinine 1.13 GFR 52 lipase 1075, nonspecific has no epigastric pain Imaging studies independently reviewed: CT KUB no acute finding Consultations: s/w dr cantu, his pt, however will need further workup lactic acid procalcitonin blood culture Rocephin and called night dark for admit. Treatments: Zofran normal saline Re-evaluations: 6:15 p.m. updated patient needs for admit. Feeling better. Discussion: Appropriate for admission for possible pre sepsis. Antibiotics fluids have been started. Lactic acid blood culture procalcitonin. Diagnosis: UTI dehydration 6:[address] Chang: Sign out to dr bashir, awaiting for laboratory studies. Patient will need to be admitted. Antibiotics have been started. 04/29/2024 Dr. Bashir: Patient was seen and evaluated by myself as well. Was noted had a recent UTI with hospitalization was seen by her primary care on the 13 of April. He had also been in contact with her recently had called in antibiotics but unclear she would actually picked them up for potential UTI. Patient states she is felt unwell she has had nausea she has had increased weakness, she does not report fevers she describes abdominal pain. She denies vomiting currently. Denies any issues with bowel movements states she has had some urinary symptoms. Denies any chest pain or shortness of breath or cold cough symptoms. Patient's labs were reviewed I spoke with Dr. Cantu saw her for the hospitalist service but asked for additional labs including lactate, blood culture, urine culture and procalcitonin be added on but did feel patient would likely need observation versus admission. He sees her on the outpatient service as well. He asked that we contact the night hospitalist when these are back. Patient has received fluids, Rocephin and dose of pain medication in his currently receiving maintenance fluids. Labs show white count, normal lactate but elevated procalcitonin at 42.4. Patient's electrolytes show a chloride of 115 CO2 of 5 BUN 22 with a creatinine 1.13 glucose is 91. Alk-phos is 199 but LFTs are normal except for a lipase of 1075. Point of care urine shows protein, positive for leukocyte esterase. Micro is negative for RBCs 5-10 wbc's, no squamous, no bacteria specimen was sent for culture. CT abdomen pelvis shows no obstructing stones or hydro moderate colonic stool mildly distended non fulfilled anterior bowel loops overall nonspecific. No significant changes in the pancreas. Patient indicates pain is lower abdominal. Possible UTI as patient's source of infection, she was mostly abdominal symptoms. Discussed with Dr. Valdes, [facility] hospitalist: Updated on findings from today, possible UTI causing patient's symptoms. Reviewed ammonia, ketones, ABG and TSH. Accepts for observation. Discharge Plan Departure Patient Disposition: Admitted as Observation Clinical Impression: Recurrent UTI, Acute dehydration Admit Date/Time: 04/29/24 22:50 Admit Provider: Jaziel Valdes
--- NOTE | 2024-04-29 15:07 | DI.CT.S_ITS ---
PROCEDURE: CT KIDNEY URETER BLADDER (KUB) INDICATIONS: Left flank pain TECHNIQUE: Axial sections were acquired from the lung bases to the pubic symphysis. Coronal and sagittal reformats were performed. For radiation dose reduction, the following was used: automated exposure control, adjustment of mA and/or kV according to patient size. COMPARISON: [facility], CT, CT ABDOMEN PELVIS W CON, 03/03/2023, 2:57. FINDINGS: Image quality: Diagnostic. Lower Chest: No significant findings. URINARY: Right Kidney: Renal atrophy. Multifocal areas of large calcification are present, unchanged. Right Ureter: No hydroureter. Left Kidney: No stones or hydronephrosis. Left Ureter: No hydroureter. Bladder: Normal wall thickness. No stones. ABDOMEN: Liver: No contour-deforming solid mass. Gallbladder: Removed Biliary ducts: No biliary dilation. Pancreas: No ductal dilation. Spleen: Size is within normal limits. Adrenal Glands: No adrenal nodules. Stomach and Bowel: Normal colonic caliber, without significant wall thickening. Moderate colonic stool. Mildly distended anterior bowel loops. Peritoneum: No abnormal intraperitoneal fluid. No free air. Ventral Wall: No hernia. Abdominal Nodes: No enlarged retroperitoneal or mesenteric lymph nodes. Vessels: Aorta and inferior vena cava are normal in size. PELVIS: Pelvic Organs: Unremarkable. Pelvic Nodes: Unremarkable. Miscellaneous: No inguinal hernias are seen. Bones: Left femoral fixation. Multilevel compression deformities with cement. IMPRESSION: No obstructing stones or hydronephrosis. Moderate colonic stool. Mildly distended non fluid-filled anterior bowel loops overall nonspecific. Dictated by: Nikia Nolasco M.D. on 04/29/2024 at 15:41 Approved by: Nikia Nolasco M.D. on 04/29/2024 at 15:43
[2024-04-29] MEDS: SODIUM CHLORIDE 0.9% 1,000 ML 1000 ML IV (15:35)
[2024-04-29 15:42] LABS: Add Manual Diff / Slide Review NO; Basophils Absolute Auto 100 /uL (0-100); Basophils Percent Auto 0.8 % (0-2); Eosinophils Absolute Auto 100 /uL (0-450); Eosinophils Percent Auto 0.9 % (2-4); Hematocrit 36.9 % (36-46); Lymphocytes Absolute Auto 3500 /uL (1100-4500); Lymphocytes Percent Auto 30.6 % (25-40); Mean Corpuscular HGB Conc 32.6 % (30-36); Mean Corpuscular Hemoglobin 32.8 PG (26-34); Mean Corpuscular Volume 100.7 fL (80-100); Monocytes Absolute Auto 600 /uL (0-900); Monocytes Percent Auto 4.9 % (3-14); Neutrophils Absolute Auto 7100 /uL (1500-7000); Neutrophils Percent Auto 62.8 % (50-75); Platelet Count 552 X10^3/uL (150-400); Red Blood Cell Count 3.66 X10^6/uL (4.0-5.2); Red Cell Distribution Width 20.4 % (11.6-14.8); White Blood Cell Count 11.4 X10^3/uL (4.5-11.0)
[2024-04-29 16:06] LABS: Macrocytosis 1+; Rouleaux 1+
--- NOTE | 2024-04-29 16:16 | PC.NURSE ---
Pt is a 2 person assist. She was assisted to transfer from a wheelchair to a recliner. Pt reports hx of bedsores. Offered pillow for repositioning and she declined at this time.
[2024-04-29 16:17] LABS: Prothrombin Time 11.1 SECONDS (9.4-12.5)
[2024-04-29] MEDS: MORPHINE 2 MG/ML INJ IV (16:55)
[2024-04-29] MEDS: ONDANSETRON 4 MG/2 ML INJ IV (16:55)
[2024-04-29 17:29] LABS: Alanine Aminotransferase 13 IU/L (<35); Albumin 3.6 g/dL (3.5-5.0); Albumin Globulin Ratio 1.2 (1.0-2.8); Alkaline Phosphatase 199 U/L (38-126); Aspartate Aminotransferase 28 IU/L (14-36); BUN Creatinine Ratio 19.5 (6-22); Bilirubin Total 0.5 mg/dL (0.2-1.3); Blood Urea Nitrogen 22 mg/dL (7-17); Calcium 8.5 mg/dL (8.4-10.2); Chloride 115 mmol/L (98-107); Estimated Glomerular Filt Rate 52 mL/min (>60); Globulin 3.1 g/dL (1.7-4.1); Glucose 91 mg/dL (80-110); HEMOLYSIS 47 (0-50); Lipase 1075 U/L (23-300); Potassium 4.3 mmol/L (3.4-5.1); Sodium 137 mmol/L (137-145); Total Protein 6.7 g/dL (6.3-8.2)
[2024-04-29 17:33] LABS: Carbon Dioxide 5 mmol/L (22-32)
[2024-04-29] MEDS: SODIUM CHLORIDE 0.9% 1,000 ML 130 ML IV (17:43)
[2024-04-29 17:53] LABS: Bacteria Urine None Seen; Urine Volume 10mL (spun); WBC Urine 5-10/HPF (0-5/HPF)
[2024-04-29 17:54] LABS: Culture Indicated Urine Specimen Cultured; RBC Urine None Seen (0-5/HPF); Squamous Epithelial Cell Urine None Seen (0-5/HPF)
[2024-04-29] MEDS: cefTRIAXone 2,000 MG in SODIUM CHLORIDE 0.9% 100 ML 200 MG IV (19:02)
[2024-04-29 19:08] LABS: Procalcitonin 42.4 ng/mL (<0.5)
[2024-04-29 20:22] LABS: Allen Test for ABG Passed? Positive; Base Excess ABG -13.9 mmol/L (-2-3); Blood Gas Collection Site Right Radial; Delivery System RA; HCO3 ABG 11 mmol/L (23-27); Oxygen Saturation ABG 99 % (95-100); PCO2 ABG 22.5 mmHg (35-45); PO2 ABG 125 mmHg (80-100); TCO2 ABG 10 mmol/L (23-27); pH ABG 7.29 (7.35-7.45)
--- NOTE | 2024-04-29 20:52 | PC.NURSE ---
Lab attempted x 3, unable to get blood cultures. Dr. Kennedy aware
[2024-04-29 21:06] LABS: Ammonia (NH3) < 9 umol/L (9-30)
[2024-04-29 21:31] LABS: Ketones (Beta-Hydroxybutyrate) 0.64 mmol/L (<0.27)
[2024-04-29 21:53] LABS: Thyroid Stimulating Hormone 3.01 uIU/mL (0.47-4.68)
--- NOTE | 2024-04-29 23:49 | PM.HP.1 ---
History of Present Illness History of Present Illness Chief complaint: uti? sepsis? sent from home health Narrative: 73 year old female with past medical history of HTN, left non functional kidney due to obstructed renal stones and depression presents with nausea and vomiting. Per the patient's report, the patient was sent here by her PCP due to concern for dehydration and intractable nausea and vomiting. The patient states that she does have a history of recurrent UTI. THe patient also states that she has some left flank pain that radiates down her leg. The patient also states that she noticed low urine output and is concern for dehydration. Otherwise, the patient denies any fever, chills, chest pain, coughing or shortness of breath. In our ER, the patient WBC was 11 and UA suggested possible UTI. However, the patient did not meet criteria for sepsis. Cr was 1.13 and HCO3 was 5. Glucose was 90s and ABG shows pH 7.29/22/125/11. Ammonia level normal and keytones 0.64. The patient was given IVF and IV Ceftriaxone given. [facility] Medical History Closed fracture of left distal femur Immunodeficiency due to conditions classified elsewhere Age-related osteoporosis without current pathological fracture History of vertebral compression fracture GERD without esophagitis Chronic, continuous use of opioids Primary osteoarthritis involving multiple joints Chronic low back pain Stage 3b chronic kidney disease (CKD) Mixed hyperlipidemia Essential hypertension Cerebrovascular disease Coronary artery disease Recurrent UTI Displaced comminuted fracture of shaft of tibia Acute VT Septic shock Left rib fracture Closed left clavicular fracture Iron (Fe) deficiency anemia Nephrolithiasis Peptic ulcer disease History of osteomyelitis Fracture, tibia Left foot drop Numbness and tingling Lumbar compression fracture (02/26/19) HLD (hyperlipidemia) C. difficile colitis Colitis Anxiety Insomnia Arthritis DJD (degenerative joint disease) Depression Fibromyalgia Migraines Multiple fractures Osteoporosis Radius fracture (08/30/17) Neuropathy History of recurrent UTIs Renal disease Hypertension Chronic pain GI bleeding Surgical History Hx of kyphoplasty (07/28/19) Hx of kyphoplasty (04/28/19) Hx of kyphoplasty (~2013) Hx of elbow surgery Hx of appendectomy Hx of cholecystectomy Status post epidural steroid injection (03/25/19) H/O: hysterectomy Hx of tonsillectomy History of surgery Family History Mother No known health problems COPD (chronic obstructive pulmonary disease) Father No known health problems Social History household members: significant other and caregiver Smoking Status: Former smoker alcohol intake: current Meds Home Medications and Allergies Home Medications Medication Instructions Recorded Confirmed Type bisacodyl 10 mg rectal suppository 10 mg ME DAILY PRN Constipation 08/21/22 04/13/24 History (Dulcolax (bisacodyl)) polyethylene glycol 3350 17 17 g PO DAILY Constipation 08/21/22 04/13/24 History gram/dose oral powder (Miralax) atorvastatin 40 mg tablet 40 mg PO DAILY #90 tabs 10/03/23 04/29/24 Rx gabapentin 300 mg capsule 900 mg (3 x 300 mg) PO TID #270 10/28/23 04/13/24 Rx caps food supplemt, lactose-reduced 1 ea PO TID #5,688 mL 11/20/23 04/13/24 Rx 0.05 gram-1.5 kcal/mL oral liquid (Ensure Plus) pantoprazole 40 mg tablet,delayed 40 mg PO DAILY #90 tabs 01/22/24 04/13/24 Rx release (Protonix) carisoprodol 350 mg tablet 350 mg PO TID PRN muscle pain #90 02/06/24 04/29/24 Rx tabs oxycodone 10 mg tablet 10 mg PO QID PRN pain #120 tabs 02/06/24 04/13/24 Rx metoprolol tartrate 25 mg tablet 25 mg PO BID 03/26/24 04/13/24 History diclofenac sodium 1 % topical gel 2 g topical 4XD PRN pain 03/29/24 04/13/24 History duloxetine 20 mg capsule,delayed 20 mg PO BID 03/29/24 04/13/24 History release aspirin 81 mg tablet,delayed 81 mg PO BID 04/13/24 04/29/24 History release (Adult Aspirin Regimen) Allergies Allergy/AdvReac Type Severity Reaction Status Date / Time furosemide [From Lasix] Allergy Intermediate Rash Verified 04/29/24 13:31 tramadol [TRAMADOL] Allergy Unknown Verified 04/29/24 13:31 amitriptyline [AMITRIPTYLINE] AdvReac Intermediate Confusion Verified 04/29/24 13:31 duloxetine AdvReac Intermediate GI distress Verified 04/29/24 13:31 Review of Systems Review of Systems Narrative: 12 points of ROS are negative except for what was mentioned per HPI. Exam Vital Signs (past 8 hours): - 04/29/24 16:08 04/29/24 18:29 04/29/24 18:30 Temperature Pulse Rate 87 81 79 Respiratory Rate 16 17 19 Blood Pressure 199/90 H Pulse Oximetry 100 100 100 Oxygen Delivery Method Room Air Oxygen Flow Rate 04/29/24 18:30 04/29/24 19:00 04/29/24 19:00 Temperature Pulse Rate 70 Respiratory Rate 10 L Blood Pressure 149/75 H 168/77 H Pulse Oximetry 100 Oxygen Delivery Method Oxygen Flow Rate 04/29/24 19:30 04/29/24 19:30 04/29/24 20:00 Temperature Pulse Rate 71 70 Respiratory Rate 15 18 Blood Pressure 142/77 H Pulse Oximetry 100 100 Oxygen Delivery Method Oxygen Flow Rate 04/29/24 20:00 04/29/24 20:30 04/29/24 21:00 Temperature Pulse Rate 71 67 Respiratory Rate 12 8 L Blood Pressure 179/84 H Pulse Oximetry 100 100 Oxygen Delivery Method Oxygen Flow Rate 04/29/24 21:00 04/29/24 21:30 04/29/24 21:30 Temperature Pulse Rate 72 Respiratory Rate 10 L Blood Pressure 143/65 H 182/84 H Pulse Oximetry 100 Oxygen Delivery Method Oxygen Flow Rate 04/29/24 22:00 04/29/24 22:00 04/29/24 22:30 Temperature Pulse Rate 70 Respiratory Rate 8 L Blood Pressure 149/65 H 178/81 H Pulse Oximetry 100 Oxygen Delivery Method Oxygen Flow Rate 04/29/24 22:30 04/29/24 23:00 04/29/24 23:00 Temperature Pulse Rate 74 80 Respiratory Rate 13 9 L Blood Pressure 192/88 H Pulse Oximetry 100 100 Oxygen Delivery Method Room Air Oxygen Flow Rate 04/29/24 23:42 Temperature 96.6 F L Pulse Rate 89 Respiratory Rate 18 Blood Pressure 160/94 H Pulse Oximetry 99 Oxygen Delivery Method Oxygen Flow Rate 0 Oxygen Delivery Method Room Air Oxygen Flow Rate 0 Narrative Exam Narrative: GENERAL: The patient is not in any acute distressed. Awake and alert. HEENT: Nonicteric sclerae, PERRLA, EOMI. Oropharynx clear. Moist mucous membranes. Conjunctivae appear well perfused. HEART: Regular rate and rhythm without murmurs. No lower extremities edema. LUNGS: Clear to auscultation bilaterally. No wheezing, crackles or rhonchi ABDOMEN: Right CVA tenderness. Soft, positive bowel sounds, nontender. SKIN: No rash, no excessive bruising, petechiae, or purpura. NEUROLOGIC: AxO x 3. Cranial nerves II-XII intact without motor/sensory deficit. Objective Labs 04/29/24 15:00 04/29/24 17:00 Labs: Laboratory Results - last 24 hr 04/29/24 04/29/24 04/29/24 15:00 16:00 17:00 WBC 11.4 H RBC 3.66 L Hgb 12.0 Hct 36.9 MCV 100.7 H MCH 32.8 MCHC 32.6 RDW 20.4 H Plt Count 552 H Neut % (Auto) 62.8 Lymph % (Auto) 30.6 [place] % (Auto) 4.9 Eos % (Auto) 0.9 L Baso % (Auto) 0.8 Neut # (Auto) 7100 H Lymph # (Auto) 3500 [place] # (Auto) 600 Eos # (Auto) 100 Baso # (Auto) 100 RBC Morphology See below Macrocytosis 1+ H Rouleaux 1+ H PT 11.1 INR 1.0 ABG Sample Site ABG pH ABG pCO2 ABG pO2 ABG HCO3 ABG Total CO2 ABG O2 Saturation ABG Base Excess Master Test O2 Delivery Device FiO2 % Sodium 137 Potassium 4.3 Chloride 115 H Carbon Dioxide 5 L* BUN 22 H Creatinine 1.13 H Estimated GFR 52 L BUN/Creatinine Ratio 19.5 Glucose 91 Lactate 1.0 Calcium 8.5 Total Bilirubin 0.5 AST 28 ALT 13 Alkaline Phosphatase 199 H Ammonia Total Protein 6.7 Albumin 3.6 Globulin 3.1 Albumin/Globulin Ratio 1.2 Lipase 1075 H Procalcitonin 42.4 H TSH 3.01 Urine RBC Urine WBC Ur Squamous Epith Cells Urine Bacteria Ur Culture Indicated? Vol Urine Centrifuged Ketones 04/29/24 04/29/24 04/29/24 17:17 17:18 20:17 WBC RBC Hgb Hct MCV MCH MCHC RDW Plt Count Neut % (Auto) Lymph % (Auto) [place] % (Auto) Eos % (Auto) Baso % (Auto) Neut # (Auto) Lymph # (Auto) [place] # (Auto) Eos # (Auto) Baso # (Auto) RBC Morphology Macrocytosis Rouleaux PT INR ABG Sample Site Right radial ABG pH 7.29 L* ABG pCO2 22.5 L* ABG pO2 125 H ABG HCO3 11 L ABG Total CO2 10 L ABG O2 Saturation 99 ABG Base Excess -13.9 L Master Test Positive O2 Delivery Device Ra FiO2 % 21 % Sodium Potassium Chloride Carbon Dioxide BUN Creatinine Estimated GFR BUN/Creatinine Ratio Glucose Lactate Calcium Total Bilirubin AST ALT Alkaline Phosphatase Ammonia Total Protein Albumin Globulin Albumin/Globulin Ratio Lipase Procalcitonin TSH Urine RBC None seen Urine WBC 5-10/hpf H Ur Squamous Epith Cells None seen Urine Bacteria None seen Ur Culture Indicated? Specimen cultured Vol Urine Centrifuged 10ml (spun) Ketones 0.64 H 04/29/24 20:33 WBC RBC Hgb Hct MCV MCH MCHC RDW Plt Count Neut % (Auto) Lymph % (Auto) [place] % (Auto) Eos % (Auto) Baso % (Auto) Neut # (Auto) Lymph # (Auto) [place] # (Auto) Eos # (Auto) Baso # (Auto) RBC Morphology Macrocytosis Rouleaux PT INR ABG Sample Site ABG pH ABG pCO2 ABG pO2 ABG HCO3 ABG Total CO2 ABG O2 Saturation ABG Base Excess Master Test O2 Delivery Device FiO2 % Sodium Potassium Chloride Carbon Dioxide BUN Creatinine Estimated GFR BUN/Creatinine Ratio Glucose Lactate Calcium Total Bilirubin AST ALT Alkaline Phosphatase Ammonia < 9 L Total Protein Albumin Globulin Albumin/Globulin Ratio Lipase Procalcitonin TSH Urine RBC Urine WBC Ur Squamous Epith Cells Urine Bacteria Ur Culture Indicated? Vol Urine Centrifuged Ketones Assessment & Plan Assessment & Plan narrative: UTI. Admit the patient to medical observation. Note, the patient is not septic and is hemodynamically stable at this time. Continue IVF and IV Ceftriaxone. Follow up urine cultures and de-escalate antibiotics accordingly. Dehydration. IVF. Likely from nausea and vomiting. Nausea and vomiting. Note, CT abdomen shows no acute findings. IVF and prn IV antiemetics. HTN. Monitor and resume home medications accordingly. Depression. Resume home mediications. DVT PPx hep SQ Code status full code Disposition home in 1-2 days Time-Based Coding :: [TOTAL MINUTES] spent with patient and on the chart (including review of chart, obtaining history, exam, reviewing outside data, placing orders, documenting exam and treatment plan, and counseling patient) on [DATE].
[2024-04-30] MEDS: DEXTROSE 5%-0.9% NS 1,000 ML 100 ML IV (00:05)
[2024-04-30] MEDS: MORPHINE 4 MG/ML INJ IV ×2 (01:43→08:23)
[2024-04-30 05:00] VITALS: BP 148/86; PULSE 84; RESP 18; TEMP 36.4; O2SAT 99
[2024-04-30 07:11] LABS: Add Manual Diff / Slide Review NO; Basophils Absolute Auto 100 /uL (0-100); Basophils Percent Auto 0.8 % (0-2); Eosinophils Absolute Auto 100 /uL (0-450); Hematocrit 35.7 % (36-46); Hemoglobin 11.6 g/dL (12.0-16.0); Lymphocytes Absolute Auto 2400 /uL (1100-4500); Lymphocytes Percent Auto 23.7 % (25-40); Mean Corpuscular HGB Conc 32.6 % (30-36); Mean Corpuscular Hemoglobin 32.7 PG (26-34); Mean Corpuscular Volume 100.2 fL (80-100); Monocytes Absolute Auto 500 /uL (0-900); Neutrophils Absolute Auto 7100 /uL (1500-7000); Neutrophils Percent Auto 69.5 % (50-75); Platelet Count 463 X10^3/uL (150-400); Red Blood Cell Count 3.57 X10^6/uL (4.0-5.2); Red Cell Distribution Width 21.2 % (11.6-14.8); White Blood Cell Count 10.2 X10^3/uL (4.5-11.0)
[2024-04-30 07:19] LABS: Alanine Aminotransferase 22 IU/L (<35); Albumin 3.5 g/dL (3.5-5.0); Albumin Globulin Ratio 1.1 (1.0-2.8); Alkaline Phosphatase 224 U/L (38-126); Aspartate Aminotransferase 56 IU/L (14-36); BUN Creatinine Ratio 19.3 (6-22); Bilirubin Total 0.4 mg/dL (0.2-1.3); Blood Urea Nitrogen 17 mg/dL (7-17); Calcium 8.9 mg/dL (8.4-10.2); Chloride 119 mmol/L (98-107); Estimated Glomerular Filt Rate > 60 mL/min (>60); Globulin 3.2 g/dL (1.7-4.1); Glucose 103 mg/dL (80-110); HEMOLYSIS < 15 (0-50); Potassium 4.1 mmol/L (3.4-5.1); Sodium 142 mmol/L (137-145); Total Protein 6.7 g/dL (6.3-8.2)
--- NOTE | 2024-04-30 07:29 | PM.PN.1 ---
Subjective Subjective Interval history: alert and oriented, doing much better since admission Exam Vital Signs (past 8 hours): - 04/29/24 23:42 04/30/24 05:00 Temperature 96.6 F L 97.6 F Pulse Rate 89 84 Respiratory Rate 18 18 Blood Pressure 160/94 H 148/86 H Pulse Oximetry 99 99 Oxygen Flow Rate 0 0 Oxygen Delivery Method Room Air Oxygen Flow Rate 0 Narrative Exam Narrative: general: frail, thin, not in distress lung: normal effort cardio: RRR abd: scaphoid, non-tender, BS present, no suprapubic tenderness neuro: no focal deficits Objective Labs 04/30/24 10:50 04/30/24 06:32 Labs: Laboratory Results - last 24 hr 04/29/24 04/29/24 04/29/24 06:32 15:00 16:00 WBC 10.2 11.4 H RBC 3.57 L 3.66 L Hgb 11.6 L 12.0 Hct 35.7 L 36.9 MCV 100.2 H 100.7 H MCH 32.7 32.8 MCHC 32.6 32.6 RDW 21.2 H 20.4 H Plt Count 463 H 552 H Neut % (Auto) 69.5 62.8 Lymph % (Auto) 23.7 L 30.6 Waldo % (Auto) 5.0 4.9 Eos % (Auto) 1.0 L 0.9 L Baso % (Auto) 0.8 0.8 Neut # (Auto) 7100 H 7100 H Lymph # (Auto) 2400 3500 Waldo # (Auto) 500 600 Eos # (Auto) 100 100 Baso # (Auto) 100 100 RBC Morphology See below Macrocytosis 1+ H Rouleaux 1+ H PT 11.1 INR 1.0 ABG Sample Site ABG pH ABG pCO2 ABG pO2 ABG HCO3 ABG Total CO2 ABG O2 Saturation ABG Base Excess Master Test O2 Delivery Device FiO2 % Sodium Potassium Chloride Carbon Dioxide BUN Creatinine Estimated GFR BUN/Creatinine Ratio Glucose Lactate Calcium Total Bilirubin AST ALT Alkaline Phosphatase Ammonia Total Protein Albumin Globulin Albumin/Globulin Ratio Lipase Procalcitonin TSH Urine RBC Urine WBC Ur Squamous Epith Cells Urine Bacteria Ur Culture Indicated? Vol Urine Centrifuged Ketones 04/29/24 04/29/24 04/29/24 17:00 17:17 17:18 WBC RBC Hgb Hct MCV MCH MCHC RDW Plt Count Neut % (Auto) Lymph % (Auto) Waldo % (Auto) Eos % (Auto) Baso % (Auto) Neut # (Auto) Lymph # (Auto) Waldo # (Auto) Eos # (Auto) Baso # (Auto) RBC Morphology Macrocytosis Rouleaux PT INR ABG Sample Site ABG pH ABG pCO2 ABG pO2 ABG HCO3 ABG Total CO2 ABG O2 Saturation ABG Base Excess Master Test O2 Delivery Device FiO2 % Sodium 137 Potassium 4.3 Chloride 115 H Carbon Dioxide 5 L* BUN 22 H Creatinine 1.13 H Estimated GFR 52 L BUN/Creatinine Ratio 19.5 Glucose 91 Lactate 1.0 Calcium 8.5 Total Bilirubin 0.5 AST 28 ALT 13 Alkaline Phosphatase 199 H Ammonia Total Protein 6.7 Albumin 3.6 Globulin 3.1 Albumin/Globulin Ratio 1.2 Lipase 1075 H Procalcitonin 42.4 H TSH 3.01 Urine RBC None seen Urine WBC 5-10/hpf H Ur Squamous Epith Cells None seen Urine Bacteria None seen Ur Culture Indicated? Specimen cultured Vol Urine Centrifuged 10ml (spun) Ketones 0.64 H 04/29/24 04/29/24 20:17 20:33 WBC RBC Hgb Hct MCV MCH MCHC RDW Plt Count Neut % (Auto) Lymph % (Auto) Waldo % (Auto) Eos % (Auto) Baso % (Auto) Neut # (Auto) Lymph # (Auto) Waldo # (Auto) Eos # (Auto) Baso # (Auto) RBC Morphology Macrocytosis Rouleaux PT INR ABG Sample Site Right radial ABG pH 7.29 L* ABG pCO2 22.5 L* ABG pO2 125 H ABG HCO3 11 L ABG Total CO2 10 L ABG O2 Saturation 99 ABG Base Excess -13.9 L Master Test Positive O2 Delivery Device Ra FiO2 % 21 % Sodium Potassium Chloride Carbon Dioxide BUN Creatinine Estimated GFR BUN/Creatinine Ratio Glucose Lactate Calcium Total Bilirubin AST ALT Alkaline Phosphatase Ammonia < 9 L Total Protein Albumin Globulin Albumin/Globulin Ratio Lipase Procalcitonin TSH Urine RBC Urine WBC Ur Squamous Epith Cells Urine Bacteria Ur Culture Indicated? Vol Urine Centrifuged Ketones [facility] Medical History Closed fracture of left distal femur Immunodeficiency due to conditions classified elsewhere Age-related osteoporosis without current pathological fracture History of vertebral compression fracture GERD without esophagitis Chronic, continuous use of opioids Primary osteoarthritis involving multiple joints Chronic low back pain Stage 3b chronic kidney disease (CKD) Mixed hyperlipidemia Essential hypertension Cerebrovascular disease Coronary artery disease Recurrent UTI Displaced comminuted fracture of shaft of tibia Acute [place] Septic shock Left rib fracture Closed left clavicular fracture Iron (Fe) deficiency anemia Nephrolithiasis Peptic ulcer disease History of osteomyelitis Fracture, tibia Left foot drop Numbness and tingling Lumbar compression fracture (02/26/19) HLD (hyperlipidemia) C. difficile colitis Colitis Anxiety Insomnia Arthritis DJD (degenerative joint disease) Depression Fibromyalgia Migraines Multiple fractures Osteoporosis Radius fracture (08/30/17) Neuropathy History of recurrent UTIs Renal disease Hypertension Chronic pain GI bleeding Surgical History Hx of kyphoplasty (07/28/19) Hx of kyphoplasty (04/28/19) Hx of kyphoplasty (~2013) Hx of elbow surgery Hx of appendectomy Hx of cholecystectomy Status post epidural steroid injection (03/25/19) H/O: hysterectomy Hx of tonsillectomy History of surgery Family History Mother No known health problems COPD (chronic obstructive pulmonary disease) Father No known health problems Social History household members: significant other and caregiver Smoking Status: Former smoker alcohol intake: current Assessment & Plan Assessment & Plan narrative: 73 year old female with past medical history of HTN, left non functional kidney due to obstructed renal stones and depression presents with nausea and vomiting. Per the patient's report, the patient was sent here by her PCP due to concern for dehydration and intractable nausea and vomiting. The patient states that she does have a history of recurrent UTI. THe patient also states that she has some left flank pain that radiates down her leg. The patient also states that she noticed low urine output and is concern for dehydration. Otherwise, the patient denies any fever, chills, chest pain, coughing or shortness of breath. In our ER, the patient WBC was 11. However, the patient did not meet criteria for sepsis. Cr was 1.13 and HCO3 was 5. Glucose was 90s and ABG shows pH 7.29/22/125/11. Ammonia level normal and keytones 0.64. The patient was given IVF and IV Ceftriaxone given. Patient was admitted for UTI however UA was clean. #Volume Depletion, N/V #Acute on Chronic Metabolic Acidosis #Chronic Lipase Elevation #Severe Protein Malnutrition #Failure to Thrive There is no obvious definitive signs of infection. Reasonable to keep ceftriaxone going 1 more day since she seems to be improving. likely presentation is simply related to her chronic issues. -bicarb 150mEq D5W -continue ceftriaxone till cultures result -pt/ot when appropriate HTN. Monitor and resume home medications accordingly. Depression. Resume home mediications. DVT PPx hep SQ Code status full code Disposition home in 1-2 days Time-Based Coding :: [TOTAL MINUTES] spent with patient and on the chart (including review of chart, obtaining history, exam, reviewing outside data, placing orders, documenting exam and treatment plan, and counseling patient) on [DATE]. Quality VTE Deep Vein Thrombosis/Pulmonary Embolism Present on Admission: No
[2024-04-30 07:41] LABS: Carbon Dioxide 9 mmol/L (22-32)
--- NOTE | 2024-04-30 07:43 | PC.NURSE ---
Admit/NOC Shift Note- Patient arrived to room via stretcher from ER. Patient able to stand and pivot from stretcher to bed with assistance. Patient alert and oriented and able to make needs known to staff. Patient sleepy, fell asleep while reviewing medications. Allowed patient to sleep for a few hours. Patient did wake a few hours late and was able to see hospitalist and finish admit. Patient oriented to bed and bed controls, room, lights, phone, menu, and call campos/tv remote. Safety measures in place. call campos and phone within reach. will continue to monitor.
[2024-04-30 07:49] LABS: Anisocytosis 2+; Macrocytosis 1+
[2024-04-30] MEDS: SODIUM BICARB 8.4% VIAL 150 MEQ in DEXTROSE 5% WATER 1,000 ML IV ×2 (08:04→20:05)
[2024-04-30] MEDS: HEPARIN 5,000 UNIT/ML VIAL 5000 UNIT SUBCUT ×2 (08:20→20:05)
[2024-04-30 09:00] VITALS: BP 125/101; PULSE 80; RESP 16; TEMP 36.3; O2SAT 96
--- NOTE | 2024-04-30 10:46 | DIET.CONS ---
Dietary Consultation Note Admission Date: 04/29/2024 22:50 Assessment: 73 y F admitted for UTI, N/V, dehydration. PMH of severe and moderate malnutrition. Nutrition consulted for weight loss. Met w/ pt at bedside. Recent ortho surgery and hospitalization at [facility] from 03/08-03/19. Reports upon d/c wasn't able to eat much, if anything at all due to pain and being out of it for around 4 wks. In last 2 wks recently started having 1 can of soup (cream of mushroom/chicken) and 1 ensure a day. Does currently have appetite, ordered lunch with unit host. Open to Georgian yogurts and trying smoothies over ONS. Coordinated with kitchen for softer/chopped foods d/t some missing teeth. Hx of malnutrition r/t inadequate oral intakes and chronically low BMI. Also notes SO focuses on leaner meals low in fat and salt. Has had caregiver bring lunches in the past. Nutrition focused physical exam: -Severe muscle loss in temples, deltoid, trapezius, pectoralis major, and interosseous -Moderate subcutaneous fat loss orbital and buccal fat pads Ht: 154.94 cm Wt: 44.6 kg BMI: 18.6 UBW: 49.85 kg on 03/29/24 (-10.5% loss in 1 month, severe) Last BM: 04/28/24 (04/29/24 23:02) MNA: 6 Jaswant Score: 18 Diet: 04/29/24 Breakfast Heart Healthy Diet Diet Modifications: 04/29/24 14:30 NPO Diet Diet Modifications: NPO Type: Strict Nutrition Percent Meal Consumed 75% 04/30/24 09:00 Labs: RBC 3.66 X10^6/uL (4.0-5.2) L 04/29/24 15:00 Hgb 12.0 g/dL (12.0-16.0) 04/29/24 15:00 Hct 36.9 % (36-46) 04/29/24 15:00 Creatinine 0.88 mg/dL (0.52-1.04) 04/30/24 06:32 Lactate 1.0 mmol/L (0.7-2.1) 04/29/24 17:00 Nutrition Diagnosis: Severe chronic protein calorie malnutrition r/t inadequate protein-energy intake as evidenced by 10% weight loss in 1 month, (severe), severe muscle wasting (temporalis, deltoids, trapezius, pectoralis, interosseous), moderate subcutaneous fat loss (buccal and orbital fat pads), <50% estimated energy intake for 4-6 weeks per diet recall (severe), history of chronic malnutrition, underweight BMI for age (18.6) Interventions: 1. Protein+kcal supplement or protein-based food addition TID 2. Discussed small freq meals, high kcal/protein convenient options to add daily, will monitor for d/c plan EER: [id number] kcals (35-40 kcals/kg per BMI and PCM) 65-75 g protein (1.5-1.7 g/kg per PCM) Monitoring/Evaluations: supplement tolerance, po intakes Electronically Signed by: Keysha Campos 04/30/24 10:46 Clinical Dietitian [address] [address]
[2024-04-30 11:09] LABS: Add Manual Diff / Slide Review NO; Basophils Absolute Auto 100 /uL (0-100); Basophils Percent Auto 0.8 % (0-2); Eosinophils Absolute Auto 200 /uL (0-450); Eosinophils Percent Auto 1.7 % (2-4); Hematocrit 27.8 % (36-46); Hemoglobin 9.4 g/dL (12.0-16.0); Lymphocytes Absolute Auto 2000 /uL (1100-4500); Lymphocytes Percent Auto 19.7 % (25-40); Mean Corpuscular HGB Conc 33.7 % (30-36); Mean Corpuscular Hemoglobin 33.7 PG (26-34); Monocytes Absolute Auto 500 /uL (0-900); Monocytes Percent Auto 4.7 % (3-14); Neutrophils Absolute Auto 7500 /uL (1500-7000); Neutrophils Percent Auto 73.1 % (50-75); Platelet Count 577 X10^3/uL (150-400); Red Blood Cell Count 2.78 X10^6/uL (4.0-5.2); Red Cell Distribution Width 21.2 % (11.6-14.8); White Blood Cell Count 10.3 X10^3/uL (4.5-11.0)
[2024-04-30 11:27] LABS: Anisocytosis 3+
[2024-04-30 11:29] LABS: Macrocytosis 1+
[2024-04-30 11:37] LABS: Ketones (Beta-Hydroxybutyrate) < 0.20 mmol/L (<0.27)
[2024-04-30 11:50] LABS: Alanine Aminotransferase 18 IU/L (<35); Albumin 2.8 g/dL (3.5-5.0); Albumin Globulin Ratio 0.9 (1.0-2.8); Alkaline Phosphatase 173 U/L (38-126); Aspartate Aminotransferase 38 IU/L (14-36); BUN Creatinine Ratio 20.7 (6-22); Bilirubin Total 0.3 mg/dL (0.2-1.3); Blood Urea Nitrogen 17 mg/dL (7-17); Calcium 8.2 mg/dL (8.4-10.2); Carbon Dioxide 14 mmol/L (22-32); Chloride 113 mmol/L (98-107); Estimated Glomerular Filt Rate > 60 mL/min (>60); Glucose 165 mg/dL (80-110); HEMOLYSIS 18 (0-50); Lipase 835 U/L (23-300); Magnesium 1.6 mg/dL (1.6-2.3); Potassium 3.5 mmol/L (3.4-5.1); Sodium 138 mmol/L (137-145); Total Protein 5.8 g/dL (6.3-8.2)
[2024-04-30 13:00] VITALS: BP 127/72; PULSE 84; RESP 16; TEMP 36.7; O2SAT 96
--- NOTE | 2024-04-30 13:33 | OT.IP.EVAL ---
Past Medical History (Last Reviewed 04/29/24 @ 17:51 by Percy Chang MD) Acute SD Age-related osteoporosis without current pathological fracture Anxiety Arthritis C. difficile colitis Cerebrovascular disease Chronic low back pain Chronic pain Chronic, continuous use of opioids Closed fracture of left distal femur Closed left clavicular fracture Colitis Coronary artery disease Depression Displaced comminuted fracture of shaft of tibia DJD (degenerative joint disease) Essential hypertension Fibromyalgia Fracture, tibia GERD without esophagitis GI bleeding History of osteomyelitis History of recurrent UTIs History of vertebral compression fracture HLD (hyperlipidemia) Hypertension Immunodeficiency due to conditions classified elsewhere Insomnia Iron (Fe) deficiency anemia Left foot drop Left rib fracture Lumbar compression fracture (02/26/19) Migraines Mixed hyperlipidemia Multiple fractures Nephrolithiasis Neuropathy Numbness and tingling Osteoporosis Peptic ulcer disease Primary osteoarthritis involving multiple joints Radius fracture (08/30/17) Recurrent UTI Renal disease Septic shock Stage 3b chronic kidney disease (CKD) Surgical History (Last Reviewed 04/29/24 @ 17:51 by Percy Chang MD) H/O: hysterectomy History of surgery Hx of appendectomy Hx of cholecystectomy Hx of elbow surgery Hx of kyphoplasty (~2013) Hx of kyphoplasty (04/28/19) Hx of kyphoplasty (07/28/19) Hx of tonsillectomy Status post epidural steroid injection (03/25/19) Occupational Therapy Inpatient Evaluation/Re-Eval M1 PT/OT-IP Prior Functional Status Start: 04/30/24 08:43 Freq: Status: Complete Protocol: Document 04/30/24 13:08 MB (Rec: 04/30/24 13:37 MB [id number]) Medical Review Prior Functional Status Medical History Reviewed Yes Communication Unsure baseline diet and communication is normal Mobility and Gait Assistance as needed for bed mobility and SPT to w/c and BSC, unclear how much help she needed Activities of Daily Living and IADL's Caregiver assistance for bathing and dressing, sponge bath only Social History Household Members significant other,caregiver Living Arrangements House Number of Floors (Floors) One Floor Number of Stairs To Enter/Railing? Ramp to enter Home Equipment Manual Wheelchair,Bedside Commode Additional Social History Comment Pt uses BSC and w/c only M2 OT-IP Current Condition Start: 04/30/24 13:33 Freq: Status: Active Protocol: Document 04/30/24 13:33 [facility] (Rec: 04/30/24 13:49 CCC [id number]) Occupational Therapy Current Condition Current Condition Evaluation Date 04/30/24 Treatment Diagnosis UTi, dehydration, wound on LLE Diagnosis Onset Date 04/29/24 Weight Bearing Status Weight Bearing Status Non-Weight Bearing Allowed Weight Bearing Amount (enter % NWB for LLE. or #) (%) M3 OT- IP Subjective and Pain Start: 04/30/24 13:33 Freq: Status: Active Protocol: Document 04/30/24 13:33 [facility] (Rec: 04/30/24 13:49 [facility] [id number]) OT- Subjective Occupational Therapy Visit Type Type Initial Evaluation Visit Start Time 13:14 Visit Stop Time 13:30 Occupational Therapy Visit Comments Patient Comments Pt agreed to get up but not wanting to stand at this time. Patient/Caregiver Goals TO go home. OT Pain Assessment Pain When Pain Assessed At Rest Pain Present Pain Present Pain Reported Location Left Leg Pain Behaviors Facial Grimacing,Holding Area M4 OT- IP ADL's Start: 04/30/24 13:33 Freq: Status: Active Protocol: Document 04/30/24 13:33 [facility] (Rec: 04/30/24 13:49 [facility] [id number]) OT [id number] Comments OT Self-Feeding Comments Not at meal time. OT ADL-Grooming Comments OT Grooming Comments Pt refusing at this time. OT ADL-Oral Care Comments Oral Care Comments NOt performed. OT ADL-Dressing General Eval Lower Body Dressing Ability Maximum Assistance Areas Needing Assistance Socks Comments OT Dressing Comments Pt needing assist for socks. OT ADL-Toileting Comments OT Toileting Comments Not performed, pt has purewick in place. OT ADL-Bathing Comments OT Bathing Comments Sponging off more appropriate and has assist at home. M5 OT- IP IADL's Start: 04/30/24 13:33 Freq: Status: Active Protocol: Document 04/30/24 13:33 [facility] (Rec: 04/30/24 13:49 [facility] [id number]) OT-Instrumental Activities of Daily Living Home Safety Awareness Awareness of Need for Assistance at Home Good Awareness Ability to Problem Solve Emergency Able to Problem Solve Situations Medication Management Medication Management Comments Caregiver assist with Mediset Money Management Money Management Caregiver Provides Assistance Meal Preparation Meal Preparation Caregiver Provides Assist Aircraft Metalsmith Aircraft Metalsmith Caregiver Provides Assist M6 OT- IP Functional Cognition Start: 04/30/24 13:33 Freq: Status: Active Protocol: Document 04/30/24 13:33 [facility] (Rec: 04/30/24 13:49 [facility] [id number]) Cognitive Factors Limiting Selfcare Function Cognitive Ability Level of Alertness Alert Patient Orientation Name,Age,Birthday,Month,Date, Year,Day of Week,Place, Situation Attention Span Ability Capable of Focused Attention, Capable of Sustained Attention Ability to Follow Commands Able to Follow One Step Commands Cognitive Comments Cognitive Assessment Comments Pt able to follow commands for mobility needs. OT- Vision and Hearing OT- Vision Assessment Visual Acuity Glasses For Reading Vision Assessment Comments Pt states needign new glasses. M7 OT- IP Mobility and Balance Start: 04/30/24 13:33 Freq: Status: Active Protocol: Document 04/30/24 13:33 [facility] (Rec: 04/30/24 13:49 [facility] [id number]) OT- Bed Mobility Assessment Supine to Sit Supine to Sit Assist Standby Assistance Sit to Supine Sit to Supine Assist Standby Assistance OT-Transfer Assessment Comments Mobility Comments Pt able to get to the edge of the bed and back in on her own with increased time. Pt now wanting to stand at this time as too tired. OT- Balance Assessment Sitting Balance and Reactions Static Sitting Balance Ability Good Dynamic Sitting Balance Ability Good M8 OT- IP Objective Assessments Start: 04/30/24 13:33 Freq: Status: Active Protocol: Document 04/30/24 13:33 [facility] (Rec: 04/30/24 13:49 [facility] [id number]) OT Gross Range of Motion Upper Extremity Range of Motion Assessment Bilaterally Impaired ROM Impairments LUE 0-40 RUE not able to lift up , ROM intact elbow to distal Arthritic changes in hands OT Strength Upper Extremity Strength Assessment Bilaterally Impaired M9 OT- IP Assessment and Plan Start: 04/30/24 13:33 Freq: Status: Active Protocol: Document 04/30/24 13:33 [facility] (Rec: 04/30/24 13:49 [facility] [id number]) OT Summary Assessment and Plan Potential Rehabilitation Potential Fair Analytic Complexity at Evaluation Moderate Summary OT Impairments Pain,Range of Motion,Strength, Balance,Functional Mobility, Toileting,Toilet Transfers, Activity Tolerance Progress Towards Goals Slow Progress due to Pain,Slow Progress due to Medical Issues,Slow Progress due to Activity Tolerance Assessment Summary Pt MOD complexity and main barriers are pain, having recent left femur fx per pt resulting in NWB and has been bed bound. Pt's has a gluteal wound and present with UTI and dehydration. Pt when medically stable to go home with 24/7 available assist and home health. Goals Self-Feeding Goal Independent Grooming Goal Independent Toileting Goal Standby Assistance Shower Transfer Goal Standby Assistance Days to Meet Goals 10 Frequency of Treatment Other frequency 5x/week Treatment Plan OT Treatment Plan ADL Training,Functional Mobility,Patient/Family Education,Discharge Planning Other Treatment Recommendations and Next Transfer to [facility] with MODA X 1 Treatment Focus Discharge Recommendations OT Discharge Recommendations Home with 24/7 Assist Available,Home Health Transportation Needs at Discharge Private Vehicle
--- NOTE | 2024-04-30 13:38 | PT.IIE ---
Surgical History (Last Reviewed 04/29/24 @ 17:51 by Percy Chang MD) H/O: hysterectomy History of surgery Hx of appendectomy Hx of cholecystectomy Hx of elbow surgery Hx of kyphoplasty (~2013) Hx of kyphoplasty (04/28/19) Hx of kyphoplasty (07/28/19) Hx of tonsillectomy Status post epidural steroid injection (03/25/19) Medical History (Last Reviewed 04/29/24 @ 17:51 by Percy Chang MD) Acute OR Age-related osteoporosis without current pathological fracture Anxiety Arthritis C. difficile colitis Cerebrovascular disease Chronic low back pain Chronic pain Chronic, continuous use of opioids Closed fracture of left distal femur Closed left clavicular fracture Colitis Coronary artery disease Depression Displaced comminuted fracture of shaft of tibia DJD (degenerative joint disease) Essential hypertension Fibromyalgia Fracture, tibia GERD without esophagitis GI bleeding History of osteomyelitis History of recurrent UTIs History of vertebral compression fracture HLD (hyperlipidemia) Hypertension Immunodeficiency due to conditions classified elsewhere Insomnia Iron (Fe) deficiency anemia Left foot drop Left rib fracture Lumbar compression fracture (02/26/19) Migraines Mixed hyperlipidemia Multiple fractures Nephrolithiasis Neuropathy Numbness and tingling Osteoporosis Peptic ulcer disease Primary osteoarthritis involving multiple joints Radius fracture (08/30/17) Recurrent UTI Renal disease Septic shock Stage 3b chronic kidney disease (CKD) Physical Therapy Inpatient Evaluation/Re-Eval M1 PT/OT-IP Prior Functional Status Start: 04/30/24 08:43 Freq: Status: Complete Protocol: Document 04/30/24 13:08 MB (Rec: 04/30/24 13:37 MB [id number]) Medical Review Prior Functional Status Medical History Reviewed Yes Communication Unsure baseline diet and communication is normal Mobility and Gait Assistance as needed for bed mobility and SPT to w/c and BSC, unclear how much help she needed Activities of Daily Living and IADL's Caregiver assistance for bathing and dressing, sponge bath only Social History Household Members significant other,caregiver Living Arrangements House Number of Floors (Floors) One Floor Number of Stairs To Enter/Railing? Ramp to enter Home Equipment Manual Wheelchair,Bedside Commode Additional Social History Comment Pt uses BSC and w/c only M2 PT-IP Current Condition Start: 04/30/24 08:43 Freq: Status: Active Protocol: Document 04/30/24 13:08 MB (Rec: 04/30/24 13:37 MB [id number]) Physical Therapy Current Condition Current Condition Evaluation Date 04/30/24 Treatment Diagnosis UTI, dehydration and gluteal wound M3 PT-IP Subjective Start: 04/30/24 08:43 Freq: Status: Active Protocol: Document 04/30/24 13:08 MB (Rec: 04/30/24 13:37 MB [id number]) Subjective Physical Therapy Visit Type Type Initial Evaluation Visit Start Time 13:08 Visit Stop Time 13:23 Number of FORENSIC MANAGER Visits 0 Physical Therapy Visit Comments Patient Comments Pt states she is not feeling well and feels like she needs more sleep. She hopes to d/c home with significant other and other caregiver assistance . Therapy Pain Assessment Pain When Pain Assessed At Rest Pain Present Pain Present Pain Reported Location Left Leg Intensity 10 Scale Used Numeric (0 - 10) M4 PT-IP Mobility and Gait Start: 04/30/24 08:43 Freq: Status: Active Protocol: Document 04/30/24 13:08 MB (Rec: 04/30/24 13:37 [id number]) PT-Bed Mobility Assessment Rolling Level of Assist Standby Assistance Supine to Sit Supine to Sit Standby Assistance Sit to Supine Sit to Supine Standby Assistance Scooting Scooting to Edge of Bed Standby Assistance Scooting Up and Down in Bed Standby Assistance PT-Transfer Assessment Comments Mobility Comments HOB increased and pt requires SBA to move to right side of bed. She refuses transfer to chair, w/c or BSC today. Gait Assessment Comments Gait Comments Pt reports she is not ambulating at home and only transferring to the w/c and BSC to the right, she states surgeon at [facility] told her not to WB on LLE after femur fracture and multiple surgeries most recently in February 2024 PT-Balance Assessment Sitting Balance and Reactions Static Sitting Balance Ability Good Dynamic Sitting Balance Ability Good M5 PT-IP Objective Assessments Start: 04/30/24 08:43 Freq: Status: Active Protocol: Document 04/30/24 13:08 MB (Rec: 04/30/24 13:37 MB [id number]) Orientation Orientation/Cognition Level of Alertness Alert Orientation Name,Age,Birthday,Month,Date, Year,Day of Week,Place, Situation Language Function Ability No Deficits Noted Safety Awareness Understands Safety Issues Memory Description No Deficits Noted Gross Range of Motion Upper Extremity ROM Impairments Defer to OT Lower Extremity ROM Assessment Left Impaired Strength Lower Extremity Strength Assessment Bilaterally Impaired Knee Right knee 5/5 Ankle Right ankle DF and great toe extension 3+/5 Comments Strength Comments No MMT LLE d/t pt reports of pain and multiple surgeries/ hardware she is concerned about damaging Coordination Assessment Gross Coordination Gross Coordination Impaired Sensation Assessment Sensation Sensation Description Numbness Comments Sensation Comments Numbness in left toes Muscle Tone Muscle Tone WNL No Comments Muscle Tone Comments Increased PF tone on LLE M6 PT-IP Treatment Start: 04/30/24 08:43 Freq: Status: Active Protocol: Document 04/30/24 13:08 MB (Rec: 04/30/24 13:37 MB [id number]) Physical Therapy Treatment Exercises Exercises Ankle Pumps Education Education Provided Safety M7 PT-IP Assessment and Plan Start: 04/30/24 08:43 Freq: Status: Active Protocol: Document 04/30/24 13:08 MB (Rec: 04/30/24 13:37 MB [id number]) PT Summary Assessment and Plan Potential Rehabilitation Potential Fair Status of Condition at Evaluation Evolving Summary Impairments Pain,ROM,Strength,Balance, Coordination,Sensation,Tone, Bed Mobility,Transfers, Activity Tolerance Progress Towards Goals Slow Progress due to Pain,Slow Progress - Other Assessment Summary Pt is a 73 y/o female who reports living at home with SO and mostly being bed bound, transferring to w/c and BSC to the right after LLE surgeries and reporting that [facility] surgeon wanted her close to NWB on LLE after recent surgery/femur fracture. Pt mobilizes well in the bed and has good sitting balance. She declines transfer and w/c training today. Will initiate PT to assess SPT to right to BSC and w/c and w/c mobility. Pt would like to d/c home with SO. Other medical concerns include skin breakdown glutes, UTI and left kidney issue, weight loss. Pt states she cannot use SB d/t Raynaud's and so will try SPT training. Goals Bed Mobility Goal Independent Transfer Goal Standby Assistance Other Goals Pt will perform SPT to the right to BSC with no more than SBA. If pt transfers back to left at home, also try to left . Pt will perform SPT to the right to the w/c with no more than SBA. If pt transfers back to left at home, also try to left. Pt will manage w/c parts and mobilize in w/c at least 50' with no more than superv. Days to Meet Goals 5 Frequency of Treatment Frequency Of Treatment Once a Day Treatment Plan Physical Therapy Treatment Plan Bed Mobility Training,Transfer Training,Therapeutic Exercise ,Balance Retraining,Discharge Planning,Neuromuscular Re-ed, Coordination Retraining,Manual Therapy Other Recommendations and Next Treatment Also, w/c training in POC Focus Weight Bearing Status Allowed Weight Bearing Amount (enter % Pt reports NWB LLE from or #) (%) [facility] surgeon Recommendations To Nursing Amount of Assist Needed Mechanical Lift Discharge Recommendations PT Discharge Recommendations Home with 24/ Assist Available,Home Health Transportation Needs at Discharge Wheelchair/Cabulance
[2024-04-30] MEDS: MAGNESIUM SULFATE 4 GM/100 ML PIGGYBACK IV (15:08)
[2024-04-30] MEDS: POTASSIUM CHLORIDE 20 MEQ TAB 40 MEQ PO (15:15)
--- NOTE | 2024-04-30 15:49 | PC.NURSE ---
Pt A/O. AGUILAR dsg to left hip intact. Received a Midline IV site into the DARIEN is SL Blood CX drawn x 2 sent to lab Received IVPB Mg 4mg and po KCL CO2 was 9 IVF of D5 w/ NaBicar infusing into LFA IV as per orders. Pt condition remains essentially unchanged. Call light w/in reach, Bed alarm on for pt safety. Continue w/plan of care
[2024-04-30 17:00] VITALS: BP 123/76; PULSE 104; RESP 16; TEMP 36.6; O2SAT 99
--- NOTE | 2024-04-30 17:00 | CM.DANOTE ---
DCP Assessment Note: Pt is a 73yo female, resident of [place], is admitted for recurrent UTI and dehydration. Pt lives in a house with her significant other, Syed. Pt's Primary Care Provider is Dr. Ricardo Cantu and insurance is [employer]. Reviewed chart and team rounds for pt's medical status and initial discharge needs. DCP met w/patient at bedside; introduced self and role. Patient was found in bed, alert and oriented, cooperative with assessment. Pt confirmed living situation and good support in signficiant other and caregiver, Tia. It is reported that pt's caregiver provides care 5 days/week for 5 hours a day. Pt expressed preference in returning home when medically stable. Pt agreeable to PT/OT recommendation of home with 24 assist and believes her care team at home can provide this (caregiver and significant other). Pt also agreeable to home health referral, did not state a preference for agency at this time; Pt has a hx of [facility] from most recent ED visit. DCP to send referral to [facility]. Plan: Anticipating discharge home with caregiver and family, with HH to supplement with assistance. CM team will follow closely for coordination of discharge plans. BALTA Bates Discharge Planning/Care Management CM Discharge Assessment Start: 04/30/24 16:57 Freq: Status: Active Protocol: Document 04/30/24 16:57 MW (Rec: 04/30/24 17:00 MW [id number]) Discharge Planning Assessment Assigned User Support Specialist JANET Butterfield DPOA/Assigned Designee Name Syed Castillo, Significant Other Advance Directives? Yes Advance Directives on File No History Provided By Patient,Family Member,Medical Record Prior Living Arrangements House Household Members significant other,caregiver Type of transporation used prior to Relies on Others admit Independent with ADL's No Is patient alert and oriented? Yes Needs Assistance With Bathing,Grooming,Toileting, Managing Medications,Home Chores / Shopping Caregiver for Another No DME Already Rented / Owned Wheelchair,Bedside Commode Patient/Family Preference Home with Home Health Barriers to Discharge No Discharge Plan Home Community Services Home Health Aid,Home Health Nurse Transportation Arrangement Significant Other, Patrick, or Caregiver, Tia can transport at discharge. Patient reports she feels comfortable with getting into a private vehicle with assistance. Referrals Initiated [facility] If patient plan is home with home health Yes : Has signed face to face form been completed? Medicare Choice List Provided Yes Medicare choice list reviewed on patient electronic tablet with SNF/HH Preference Patient has no preference, has hx with [facility]. Whiteboard Updated in Patient Room with Yes name and ext. # of User Support Specialist Please Provide Date Initial DC 04/30/24 Assessment Was Performed Next Review Type Continued Stay Review
[2024-04-30] MEDS: cefTRIAXone 1,000 MG in SODIUM CHLORIDE 0.9% 100 ML 200 MG IV (18:41)
[2024-04-30 19:00] VITALS: BP 120/76; PULSE 103; RESP 18; TEMP 36.7; O2SAT 100
[2024-04-30] MEDS: OXYCODONE IR 10 MG TABLET PO (20:05)
[2024-04-30] MEDS: ACETAMINOPHEN 325 MG TABLET 650 MG PO (20:16)
[2024-04-30 23:00] VITALS: BP 140/72; PULSE 95; RESP 18; TEMP 36.9; O2SAT 100
[2024-04-30] MEDS: MORPHINE 2 MG/ML INJ IV (23:45)
[2024-04-30] MEDS: SODIUM CHLORIDE 0.9% FLUSH 10 ML IV (23:46)
[2024-05-01] MEDS: ACETAMINOPHEN 325 MG TABLET 650 MG PO ×2 (02:27→08:22)
[2024-05-01] MEDS: OXYCODONE IR 10 MG TABLET PO ×3 (02:27→11:22)
[2024-05-01 03:00] VITALS: BP 158/84; PULSE 90; RESP 18; TEMP 37.1; O2SAT 100
[2024-05-01] MEDS: MORPHINE 2 MG/ML INJ IV (04:29)
[2024-05-01] MEDS: SODIUM CHLORIDE 0.9% FLUSH 10 ML IV (04:31)
[2024-05-01 08:00] VITALS: BP 98/81; PULSE 109; RESP 16; TEMP 36.8; O2SAT 96
[2024-05-01] MEDS: HEPARIN 5,000 UNIT/ML VIAL 5000 UNIT SUBCUT (08:15)
--- NOTE | 2024-05-01 09:49 | PM.DS.1 ---
History of Present Illness History of Present Illness Date Patient Seen: 05/01/24 Time Patient Seen: 07:55 Date of Onset of Symptoms: 04/29/24 Chief complaint: uti? sepsis? sent from home health Narrative: 73 year old female with past medical history of HTN, left non functional kidney due to obstructed renal stones and depression presents with nausea and vomiting. Per the patient's report, the patient was sent here by her PCP due to concern for dehydration and intractable nausea and vomiting. The patient states that she does have a history of recurrent UTI. THe patient also states that she has some left flank pain that radiates down her leg. The patient also states that she noticed low urine output and is concern for dehydration. Otherwise, the patient denies any fever, chills, chest pain, coughing or shortness of breath. In our ER, the patient WBC was 11 and UA suggested possible UTI. However, the patient did not meet criteria for sepsis. Cr was 1.13 and HCO3 was 5. Glucose was 90s and ABG shows pH 7.29/22/125/11. Ammonia level normal and keytones 0.64. The patient was given IVF and IV Ceftriaxone given. Discharge Providers Provider Date of admission: 04/29/24 22:50 Discharge Date: 05/01/24 Primary care physician: Ricardo Cantu MD Consults: 04/29/24 23:06 Consult to Occupational Therapy Evaluate & Treat Comment: Physician Instructions: Evaluate and treat Consult to Physical Therapy Evaluate & Treat Comment: Physician Instructions: Evaluate and Treat 04/30/24 04:14 Consult to Dietitian, Adult Routine Comment: Reason For Exam: weight loss Discharge provider: Ricardo Cantu MD Summary Hospital Course Discharge Diagnosis: 1. Volume depletion due to nausea and vomiting 2. Acute on chronic metabolic acidosis 3. Chronic lipase elevation before. Severe protein calorie malnutrition 5. Failure to thrive 6. Possible urinary tract infection, final blood and urine cultures pending Hospital Course: The patient was admitted and hydrated intravenously. Severe metabolic acidosis with a 7.29, pCO2 22.5 125 on room air normal serum lactate and positive serum procalcitonin presumed related to possible occult infection, Sshe was treated with broad-spectrum antibiotics along with oral and intravenous sodium bicarbonate. Lipase was elevated at 1000 of unclear etiology, but chronic and likely attributed to nausea and vomiting. Abdominopelvic CT on admission no acute process. With IV hydration she was feeling significantly better by the 2nd day and at baseline by the 3rd hospital day, and interested in discharge home on oral antibiotics follow-up. Status at Discharge Cognitive/behavioral status at discharge: oriented Functional status at discharge: uses cane/walker Overall status at discharge: patient is not back to baseline Time Spent with Patient Time spent: Greater than 30 minutes Exam Vital Signs (past 8 hours): - 05/01/24 03:00 05/01/24 08:00 Temperature 98.7 F 98.2 F Pulse Rate 90 109 H Respiratory Rate 18 16 Blood Pressure 158/84 H 98/81 Pulse Oximetry 100 96 Oxygen Flow Rate 0 Oxygen Delivery Method Room Air Oxygen Flow Rate 0 Narrative Exam Narrative: general: frail, thin, not in distress lung: normal effort cardio: RRR abd: scaphoid, non-tender, BS present, no suprapubic tenderness neuro: no focal deficits Objective Imaging CT scan - abdomen: Radiologist's impression: No obstructing stones or hydronephrosis. Moderate colonic stool. Mildly distended non fluid-filled anterior bowel loops overall nonspecific. Labs 04/30/24 10:50 04/30/24 11:35 Labs: Laboratory Results - last 24 hr 04/30/24 04/30/24 10:50 11:35 WBC 10.3 RBC 2.78 L Hgb 9.4 L Hct 27.8 L MCV 100.0 MCH 33.7 MCHC 33.7 RDW 21.2 H Plt Count 577 H Neut % (Auto) 73.1 Lymph % (Auto) 19.7 L [place] % (Auto) 4.7 Eos % (Auto) 1.7 L Baso % (Auto) 0.8 Neut # (Auto) 7500 H Lymph # (Auto) 2000 [place] # (Auto) 500 Eos # (Auto) 200 Baso # (Auto) 100 RBC Morphology See below Anisocytosis 3+ H Macrocytosis 1+ H Sodium 138 Potassium 3.5 Chloride 113 H Carbon Dioxide 14 L BUN 17 Creatinine 0.82 Estimated GFR > 60 BUN/Creatinine Ratio 20.7 Glucose 165 H Calcium 8.2 L Magnesium 1.6 Total Bilirubin 0.3 AST 38 H ALT 18 Alkaline Phosphatase 173 H Total Protein 5.8 L Albumin 2.8 L Globulin 3.0 Albumin/Globulin Ratio 0.9 L Lipase 835 H Ketones < 0.20 PFSH Medical History Closed fracture of left distal femur Immunodeficiency due to conditions classified elsewhere Age-related osteoporosis without current pathological fracture History of vertebral compression fracture GERD without esophagitis Chronic, continuous use of opioids Primary osteoarthritis involving multiple joints Chronic low back pain Stage 3b chronic kidney disease (CKD) Mixed hyperlipidemia Essential hypertension Cerebrovascular disease Coronary artery disease Recurrent UTI Displaced comminuted fracture of shaft of tibia Acute [place] Septic shock Left rib fracture Closed left clavicular fracture Iron (Fe) deficiency anemia Nephrolithiasis Peptic ulcer disease History of osteomyelitis Fracture, tibia Left foot drop Numbness and tingling Lumbar compression fracture (02/26/19) HLD (hyperlipidemia) C. difficile colitis Colitis Anxiety Insomnia Arthritis DJD (degenerative joint disease) Depression Fibromyalgia Migraines Multiple fractures Osteoporosis Radius fracture (08/30/17) Neuropathy History of recurrent UTIs Renal disease Hypertension Chronic pain GI bleeding Surgical History Hx of kyphoplasty (07/28/19) Hx of kyphoplasty (04/28/19) Hx of kyphoplasty (~2013) Hx of elbow surgery Hx of appendectomy Hx of cholecystectomy Status post epidural steroid injection (03/25/19) H/O: hysterectomy Hx of tonsillectomy History of surgery Family History Mother No known health problems COPD (chronic obstructive pulmonary disease) Father No known health problems Social History household members: significant other and caregiver Smoking Status: Former smoker alcohol intake: current Discharge Plan Discharge Plan Patient Disposition: Home Provider Discharge Comment: Followup with Dr. Cantu < 7 days Discharge orders & Medications Prescriptions: New cefuroxime axetil 500 mg tablet 500 mg PO BID Qty: 14 0RF Continued atorvastatin 40 mg tablet 40 mg PO DAILY Qty: 90 2RF Ensure Plus 0.05 gram- 1.5 kcal/mL liquid 1 ea PO TID Qty: 5688 6RF Rx Instructions: Chocolate flavor is requested. pantoprazole [Protonix] 40 mg tablet,delayed release (DR/EC) 40 mg PO DAILY Qty: 90 3RF bisacodyl [Dulcolax (bisacodyl)] 10 mg suppository 10 mg HI DAILY PRN (Reason: Constipation) Patient Comments: no longer takes gabapentin 300 mg capsule 900 mg PO TID Qty: 270 5RF carisoprodol 350 mg tablet 350 mg PO TID PRN (Reason: muscle pain) Qty: 90 5RF oxycodone 10 mg tablet 10 mg PO QID PRN (Reason: pain) Qty: 120 0RF metoprolol tartrate 25 mg tablet 25 mg PO DAILY Rx Instructions: Increased from 12.5 to 25 mg bid per 03/26 note. aspirin [Adult Aspirin Regimen] 81 mg tablet,delayed release (DR/EC) 81 mg PO DAILY diclofenac sodium 1 % gel 2 g topical 4XD PRN (Reason: pain) Follow up/Referrals: Ricardo Cantu MD [Primary Care Provider] - Diet/Activity/Treatments Diet: Diet as Tolerated and Regular Visit Report/Discharge Packet Stand Alone Forms: Patient Portal/API Discharge Data Primary Care Provider: Ricardo Cantu V Attending Provider: Jaziel Valdes Admit Date/Time: 04/29/24 22:50 Quality VTE Deep Vein Thrombosis/Pulmonary Embolism Present on Admission: No MIPS - Admit I confirm the patient?s Advance Care Plan is present, Code status is documented, Surrogate decision maker is in patient?s record [If Yes, STOP here]: Yes MIPS - Meds 'Current medications' to include all prescriptions, ydgl-keq-kphxoid products, herbals, cannabis/cannabidiol products, and vitamin/mineral/dietary (nutritional) supplements. I have utilized all available resources to obtain, update, or review the patient?s current medications. [If Yes, STOP here]: Yes MIPS - DC The patient has a history of heart transplant or Left Ventricular Assist Device (LVAD). If yes, STOP here.: No The patient has current or prior documentation of left ventricular ejection fraction (LVEF) less than or equal to 40%, or moderate or severely depressed left ventricular systolic function.: No A. The patient was prescribed or already taking an Angiotensin-Converting Enzyme (CHRIST) Inhibitor, or Angiotensin Receptor Dennise (ARB).: No B. The patient was prescribed or already taking a beta-dennise. [If Yes to Both A & B, STOP here]: No Patient not prescribed/taking CHRIST or ARB, no reason given.: No Patient not prescribed/taking beta-dennise, no reason given.: No [facility] PROFEE Charge Codes Discharge inpatient/observation: [id number]
--- NOTE | 2024-05-01 10:19 | PC.NURSE ---
Patient will be discharged today at 1130. She had oxycodone at 0800, okayed her to have another 10mg of oxycodone at 1130 before she is discharged for ride home. Patient is forgetful but pleasant. She is resting in her room now.
--- NOTE | 2024-05-01 10:55 | PT.IPTN ---
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 Therapy Pain Assessment Pain When Pain Assessed At Rest Pain Present Pain Present Pain Reported M4 PT-IP Mobility and Gait Start: 04/30/24 08:43 Freq: Status: Active Protocol: Document 05/01/24 11:15 TS (Rec: 05/01/24 11:27 TS [id number]) PT-Bed Mobility Assessment Rolling Level of Assist Standby Assistance Supine to Sit Supine to Sit Standby Assistance Sit to Supine Sit to Supine Standby Assistance Scooting Scooting to Edge of Bed Standby Assistance PT-Transfer Assessment Transfers Transfer Destination Chair Transfer Technique Squat Pivot Transfer Ability Level of Assist Minimal Assistance,1 Person Assistance Comments Mobility Comments Pt performs bed mobility SBA. Squat pivot to chair Emmie, pt maintains NWB on LLE. Pt was left in chair, all needs met. Gait Assessment Comments Gait Comments Pt reports she is not ambulating at home and only transferring to the w/c and [facility] to the right, she states surgeon at [facility] told her not to WB on LLE after femur fracture and multiple surgeries most recently in February 2024 PT-Balance Assessment Sitting Balance and Reactions Static Sitting Balance Ability Good Dynamic Sitting Balance Ability Good M5 PT-IP Objective Assessments Start: 04/30/24 08:43 Freq: Status: Active Protocol: Document 04/30/24 13:08 MB (Rec: 04/30/24 13:37 MB [id number]) Orientation Orientation/Cognition Level of Alertness Alert Orientation Name,Age,Birthday,Month,Date, Year,Day of Week,Place, Situation Language Function Ability No Deficits Noted Safety Awareness Understands Safety Issues Memory Description No Deficits Noted Gross Range of Motion Upper Extremity ROM Impairments Defer to OT Lower Extremity ROM Assessment Left Impaired Strength Lower Extremity Strength Assessment Bilaterally Impaired Knee Right knee 5/5 Ankle Right ankle DF and great toe extension 3+/5 Comments Strength Comments No MMT LLE d/t pt reports of pain and multiple surgeries/ hardware she is concerned about damaging Coordination Assessment Gross Coordination Gross Coordination Impaired Sensation Assessment Sensation Sensation Description Numbness Comments Sensation Comments Numbness in left toes Muscle Tone Muscle Tone WNL No Comments Muscle Tone Comments Increased PF tone on LLE M6 PT-IP Treatment Start: 04/30/24 08:43 Freq: Status: Active Protocol: Document 05/01/24 11:15 TS (Rec: 05/01/24 11:27 TS [id number]) Physical Therapy Treatment Education Education Provided Safety M7 PT-IP Assessment and Plan Start: 04/30/24 08:43 Freq: Status: Active Protocol: Document 05/01/24 11:15 TS (Rec: 05/01/24 11:27 TS [id number]) PT Summary Assessment and Plan Potential Rehabilitation Potential Fair Summary Impairments Pain,ROM,Strength,Balance, Coordination,Sensation,Tone, Bed Mobility,Transfers, Activity Tolerance Progress Towards Goals Slow Progress due to Pain,Slow Progress - Other Assessment Summary Emani made some progress with her mobility with a squat pivot to the chair. She reports having to maintain NWB on LLE due to prior L femur fx. She states she has caregivers and her SO to assist her at home. PT is recommending home with 24 assist and HHPT. Goals Bed Mobility Goal Independent Transfer Goal Standby Assistance Other Goals Pt will perform SPT to the right to BSC with no more than SBA. If pt transfers back to left at home, also try to left . Pt will perform SPT to the right to the w/c with no more than SBA. If pt transfers back to left at home, also try to left. Pt will manage w/c parts and mobilize in w/c at least 50' with no more than superv. Days to Meet Goals 5 Frequency of Treatment Frequency Of Treatment Once a Day Treatment Plan Physical Therapy Treatment Plan Bed Mobility Training,Transfer Training,Therapeutic Exercise ,Balance Retraining,Discharge Planning,Neuromuscular Re-ed, Coordination Retraining,Manual Therapy Weight Bearing Status Allowed Weight Bearing Amount (enter % NWB for LLE. or #) (%) Recommendations To Nursing Amount of Assist Needed 1 Person Assist Discharge Recommendations PT Discharge Recommendations Home with 24/ Assist Available,Home Health Transportation Needs at Discharge Private Vehicle,Wheelchair/ Cabulance
--- NOTE | 2024-05-01 14:58 | CM.DPNOTE ---
Addendum entered by JANET Justin 05/01/24 15:18: ADD: DC Summary faxed to [facility] Original Note: DC Note Discharge home w/family, SO and [facility] services. Notified [facility] that patient discharged today. JW
--- NOTE | 2024-05-08 13:05 | PC.NURSE ---
LATE NOTE MED DID NOT SCAN ON 04/30/24 @ 1430 Pt was given MS 4mg IV for discomfort, w/ good relief.
== END 2024-05-01 12:27 | disposition home or self-care (01) ==
LOC: ED 22:47 → AC 22:51
PROVIDERS: Emergency Medicine; Student in an Organized Health Care Education/Training Program; Admitting Provider Internal Medicine; Emergency Provider Emergency Medicine; PCP Internal Medicine; Referring Provider Emergency Medicine; Visit Provider Internal Medicine
DX: R11.2 Nausea with vomiting, unspecified (principal); Z87.440 Personal history of urinary (tract) infections; E86.0 Dehydration; I10 Essential (primary) hypertension; F32.A Depression, unspecified; E43 Unspecified severe protein-calorie malnutrition; Z68.1 Body mass index [BMI] 19.9 or less, adult; E87.21 Acute metabolic acidosis; E87.22 Chronic metabolic acidosis; R62.7 Adult failure to thrive
CPT/HCPCS: 36415; 36600; 74176; 80053; 81003; 81015; 82009; 82140; 82805; 83605; 83690; 83735; 84145; 84443; 85025; 85610; 87040; 87086; 96361; 96365; 96366; 96367; 96368; 96372; 96375; 96376; 97161; 97166; 97530; 99284; 99285; G0378; J0696; J1644; J2270; J2405; J3475

== ENCOUNTER → 2024-06-10 11:17 | Outpatient (CLI) | payer MEDICARE, MEDICAID, SELFPAY ==
[2022-07-22 07:16] VITALS: RESP 28
[2022-07-22 14:33] VITALS: PULSE 127; RESP 38; O2SAT 100
[2024-04-29 23:02] VITALS: BMI 18.6
[2024-06-10 12:25] LABS: Hematocrit 35.1 % (36-46); Hemoglobin 11.4 g/dL (12.0-16.0); Mean Corpuscular HGB Conc 32.4 % (30-36); Mean Corpuscular Hemoglobin 34.6 PG (26-34); Mean Corpuscular Volume 106.8 fL (80-100); Platelet Count 459 X10^3/uL (150-400); Red Blood Cell Count 3.29 X10^6/uL (4.0-5.2); Red Cell Distribution Width 21.7 % (11.6-14.8); White Blood Cell Count 7.8 X10^3/uL (4.5-11.0)
[2024-06-10 13:04] LABS: Alanine Aminotransferase 14 IU/L (<35); Albumin 3.8 g/dL (3.5-5.0); Albumin Globulin Ratio 1.4 (1.0-2.8); Alkaline Phosphatase 167 U/L (38-126); Aspartate Aminotransferase 27 IU/L (14-36); BUN Creatinine Ratio 24.5 (6-22); Bilirubin Total 0.4 mg/dL (0.2-1.3); Blood Urea Nitrogen 26 mg/dL (7-17); Calcium 9.4 mg/dL (8.4-10.2); Carbon Dioxide 14 mmol/L (22-32); Chloride 112 mmol/L (98-107); Cholesterol 176 mg/dL (140-199); Estimated Glomerular Filt Rate 56 mL/min (>60); Globulin 2.8 g/dL (1.7-4.1); Glucose 83 mg/dL (80-110); HDL Cholesterol 88 mg/dL (40-60); HEMOLYSIS < 15 (0-50); LDL Cholesterol Calculated 46 mg/dL (<100); Potassium 4.9 mmol/L (3.4-5.1); Sodium 136 mmol/L (137-145); Total Protein 6.6 g/dL (6.3-8.2); Triglycerides 211 mg/dL (35-150)
== END ==
PROVIDERS: PCP Internal Medicine; Referring Provider Internal Medicine; Visit Provider Internal Medicine
DX: E78.2 Mixed hyperlipidemia (principal); I10 Essential (primary) hypertension; I67.9 Cerebrovascular disease, unspecified
CPT/HCPCS: 36415; 80053; 80061; 85027

== ENCOUNTER → 2024-09-21 12:27 | Outpatient (CLI) | payer MEDICARE, MEDICAID, SELFPAY ==
[2022-07-22 07:16] VITALS: RESP 28
[2022-07-22 14:33] VITALS: PULSE 127; RESP 38; O2SAT 100
[2024-04-29 23:02] VITALS: BMI 18.6
[2024-09-21 13:02] LABS: Hematocrit 31.6 % (36-46); Hemoglobin 10.3 g/dL (12.0-16.0); Mean Corpuscular HGB Conc 32.6 % (30-36); Mean Corpuscular Hemoglobin 33.3 PG (26-34); Mean Corpuscular Volume 102.2 fL (80-100); Platelet Count 656 X10^3/uL (150-400); Red Blood Cell Count 3.09 X10^6/uL (4.0-5.2); Red Cell Distribution Width 24.6 % (11.6-14.8); White Blood Cell Count 16.4 X10^3/uL (4.5-11.0)
[2024-09-21 13:17] LABS: Alanine Aminotransferase 20 IU/L (<35); Albumin 4.3 g/dL (3.5-5.0); Albumin Globulin Ratio 1.3 (1.0-2.8); Alkaline Phosphatase 153 U/L (38-126); Aspartate Aminotransferase 32 IU/L (14-36); BUN Creatinine Ratio 36.5 (6-22); Bilirubin Total 0.2 mg/dL (0.2-1.3); Blood Urea Nitrogen 35 mg/dL (7-17); Calcium 9.3 mg/dL (8.4-10.2); Carbon Dioxide 26 mmol/L (22-32); Chloride 100 mmol/L (98-107); Estimated Glomerular Filt Rate > 60 mL/min (>60); Globulin 3.4 g/dL (1.7-4.1); Glucose 128 mg/dL (80-110); HEMOLYSIS < 15 (0-50); Sodium 135 mmol/L (137-145); Total Protein 7.7 g/dL (6.3-8.2)
[2024-09-21 13:51] LABS: TSH w/ Reflex to FT4 1.53 uIU/mL (0.47-4.68)
== END ==
PROVIDERS: PCP Internal Medicine; Referring Provider Internal Medicine; Visit Provider Internal Medicine
DX: N18.32 Chronic kidney disease, stage 3b (principal); E78.2 Mixed hyperlipidemia
CPT/HCPCS: 36415; 80053; 84443; 85027

== ENCOUNTER → 2024-11-16 16:01 | Outpatient (CLI) | payer MEDICARE, MEDICAID, SELFPAY ==
[2022-07-22 07:16] VITALS: RESP 28
[2022-07-22 14:33] VITALS: PULSE 127; RESP 38; O2SAT 100
[2024-04-29 23:02] VITALS: BMI 18.6
--- NOTE | 2024-11-16 16:02 | DI.RAD.S_ITS ---
PROCEDURE: XR KNEE RT 3V INDICATIONS: right knee pain, fall TECHNIQUE: 3 views of the knee were acquired. COMPARISON: [facility], CR, XR KNEE LT 3V, 03/29/2024, 6:38. FINDINGS: Bones: No fractures or dislocations. No suspicious bony lesions. Moderate medial and lateral tibiofemoral and moderate to severe patellofemoral compartment narrowing with associated osteophytosis. Soft tissues: No joint effusion. No suspicious soft tissue calcifications. IMPRESSION: KL grade 2 tricompartmental osteoarthritis without evidence of acute osseous abnormality. Dictated by: Emanuel Schneider M.D. on 11/17/2024 at 3:47 Approved by: Emanuel Schneider M.D. on 11/17/2024 at 3:48
[2024-11-16 18:07] LABS: Aspartate Aminotransferase 31 IU/L (14-36); BUN Creatinine Ratio 26.1 (6-22); Blood Urea Nitrogen 35 mg/dL (7-17); Calcium 9.8 mg/dL (8.4-10.2); Carbon Dioxide 16 mmol/L (22-32); Chloride 111 mmol/L (98-107); Cholesterol 259 mg/dL (140-199); Estimated Glomerular Filt Rate 42 mL/min (>60); Glucose 97 mg/dL (80-110); HDL Cholesterol 108 mg/dL (40-60); HEMOLYSIS < 15 (0-50); LDL Cholesterol Calculated 123 mg/dL (<100); Sodium 142 mmol/L (137-145); Triglycerides 140 mg/dL (35-150)
[2024-11-16 18:11] LABS: Potassium 6.2 mmol/L (3.4-5.1)
== END ==
PROVIDERS: PCP Internal Medicine; Referring Provider Internal Medicine; Visit Provider Internal Medicine
DX: M17.11 Unilateral primary osteoarthritis, right knee (principal); E78.2 Mixed hyperlipidemia; M25.561 Pain in right knee; I10 Essential (primary) hypertension
CPT/HCPCS: 36415; 73562; 80048; 80061; 84450

== ENCOUNTER → 2025-02-01 10:44 | Outpatient (CLI) | payer MEDICARE, MEDICAID, SELFPAY ==
[2022-07-22 07:16] VITALS: RESP 28
[2022-07-22 14:33] VITALS: PULSE 127; RESP 38; O2SAT 100
[2024-04-29 23:02] VITALS: BMI 18.6
--- NOTE | 2025-02-01 10:46 | DI.CT.S_ITS ---
PROCEDURE: CT LE LT W CON INDICATIONS: femur fracture TECHNIQUE: Noncontrast 3 mm axial sections acquired of the left femur, with coronal and sagittal reformats. For radiation dose reduction, the following was used: automated exposure control, adjustment of mA and/or kV according to patient size. COMPARISON: [facility], CR, XR FEMUR LT MIN 2V, 03/08/2024, 20:26. [facility], CR, XR FEMUR LT MIN 2V, 03/29/2024, 6:38. [facility], CT, CT LE LT W CON, 03/03/2023, 7:08. [facility], CT, CT LE LT WO CON, 10/05/2019, 14:08. FINDINGS: Image quality: Excellent. Bones: Postsurgical changes are seen from distal femoral fracture fixation with an intramedullary nail and proximal and distal locking screws. Hardware is intact. There is questionable partial osseous bridging although the majority of the fracture line is still visualized. Alignment appears unchanged. Postsurgical changes are partially included in the proximal tibia. Healing left superior and inferior pubic rami fractures are present. There is osseous bridging across the majority of the inferior ramus fracture. Portions of the superior ramus fracture line are still visualized. Generalized osteopenia. Soft tissues: Trace left knee effusion. No significant hip effusion. No focal disproportionate muscle atrophy. Included pelvic soft tissues demonstrate no acute abnormality. Status post hysterectomy. Atherosclerotic vascular calcifications are present. IMPRESSION: 1. Postsurgical changes from distal femoral fracture fixation with intact hardware unchanged alignment. There may be partial osseous bridging although the majority of the fracture line is still visualized, suspicious for nonunion. 2. Healing fractures of the left superior and inferior pubic rami. Continued visualization of portions of the superior ramus fracture line. Approved by: Alex Causey M.D. on 02/01/2025 at 16:01
== END ==
PROVIDERS: PCP Internal Medicine; Referring Provider Orthopaedic Surgery Foot and Ankle Surgery; Visit Provider Orthopaedic Surgery Foot and Ankle Surgery
DX: S72.452G Displaced supracondylar fracture without intracondylar extension of lower end of left femur, subsequent encounter for closed fracture with delayed healing (principal); S32.512D Fracture of superior rim of left pubis, subsequent encounter for fracture with routine healing
CPT/HCPCS: 73700

== ENCOUNTER 2025-02-01 17:34 | Emergency (ER) | payer MEDICARE, MEDICAID, SELFPAY ==
[2022-07-22 07:16] VITALS: RESP 28
[2022-07-22 14:33] VITALS: PULSE 127; RESP 38; O2SAT 100
[2024-04-29 23:02] VITALS: BMI 18.6
[2025-02-01] VITALS (8 sets, daily range): BP systolic 147–180; BP diastolic 70–85; PULSE 63–69; RESP 13–262; TEMP 36.9; O2SAT 96–100
--- NOTE | 2025-02-01 17:49 | DI.RAD.S_ITS ---
PROCEDURE: XR KNEE LT 3V INDICATIONS: fall TECHNIQUE: 3 views of the knee were acquired. COMPARISON: [facility], CR, XR KNEE RT 3V, 11/16/2024, 16:06. FINDINGS: Bones: Post ORIF changes are noted in distal femoral shaft and tibial shaft with surgical hardware in place. No obvious hardware loosening or failure. Healing distal femoral shaft fracture is seen. No acute fracture or dislocation. No significant patellar subluxation. No suspicious bony lesions. Soft tissues: No significant joint effusion. No suspicious soft tissue calcifications. IMPRESSION: Extensive postsurgical changes in distal femoral shaft and tibial shaft with healing distal femoral shaft fracture. No gross hardware loosening or failure. No acute fracture or dislocation. No significant joint effusion. Dictated by: Jon Braxton M.D. on 02/01/2025 at 19:24 Approved by: Jon Braxton M.D. on 02/01/2025 at 19:25
--- NOTE | 2025-02-01 17:49 | DI.RAD.S_ITS ---
PROCEDURE: XR HIP W PEL IF DONE LT 2V INDICATIONS: fall TECHNIQUE: AP pelvis with lateral view(s) of the left hip(s). COMPARISON: [facility], CT, CT KIDNEY URETER BLADDER (KUB), 04/29/2024, 15:01. [facility], CR, XR HIP W PEL IF DONE RT 2V, 02/09/2022, 18:31. FINDINGS: Bones: Post ORIF changes are seen in left femoral shaft. No gross hardware loosening or failure. Old injury involving right inferior pubic ramus is seen. Old deformity involving lateral portion of left superior pubic ramus and medial portion of left inferior pubic ramus with deformity. No gross acute left hip fracture or dislocation. No evidence of avascular necrosis of femoral head. Post kyphoplasty changes are noted in visualized lower lumbar spine. Soft tissues: The visualized bowel gas pattern is normal. No suspicious soft tissue calcifications. IMPRESSION: No gross acute left hip fracture or dislocation. Prior fixation of left femoral shaft. Old healed injuries involving left superior and inferior pubic rami. Remote injury also seen in right inferior pubic ramus. Dictated by: Jon Braxton M.D. on 02/01/2025 at 19:22 Approved by: Jon Braxton M.D. on 02/01/2025 at 19:24
--- NOTE | 2025-02-01 17:49 | DI.CT.S_ITS ---
PROCEDURE: CT CERVICAL SPINE WO CON INDICATIONS: fall TECHNIQUE: Noncontrast 3 mm thick sections acquired from the skull base to the T4 level. Sagittal and coronal reformats were then constructed. For radiation dose reduction, the following was used: automated exposure control, adjustment of mA and/or kV according to patient size. COMPARISON: [facility], CT, CT CERVICAL SPINE WO CON, 07/21/2022, 12:36. FINDINGS: Image quality: Excellent. Bones: No fractures or dislocations. 4 mm anterolisthesis of C2 on C3 is seen. 3 mm retrolisthesis of C4 on C5 is seen. 3 mm anterolisthesis of C6 on C7 is also noted. Loss of disc height, degenerative endplate changes and bilateral facet hypertrophic changes are noted throughout cervical spine . Visualized superior ribs are intact. Soft tissues: Prevertebral soft tissues are normal in thickness. No paravertebral hematomas. No apical pneumothoraces. IMPRESSION: 1. No displaced fracture or traumatic subluxation. 2. Spondylolisthesis in cervical spine as described above. Moderate degenerative disc disease throughout cervical spine. Dictated by: Jon Braxton M.D. on 02/01/2025 at 18:30 Approved by: Jon Braxton M.D. on 02/01/2025 at 18:36
--- NOTE | 2025-02-01 17:49 | DI.RAD.S_ITS ---
PROCEDURE: XR TOE RT MIN 2V INDICATIONS: great toe pain TECHNIQUE: 3 views of the 1st toe(s) acquired. COMPARISON: None. FINDINGS: Bones: There is diffuse osteopenia. No acute fracture or dislocation. Osteoarthritic changes are noted throughout great toe. Chronic appearing deformities are noted involving 2nd through 5th metatarsal necks. Soft tissues: No suspicious soft tissue densities. IMPRESSION: No gross acute great toe fracture or dislocation. Osteoarthritic changes are noted in great toe. Old deformity involving 2nd through 5th metatarsal necks. Dictated by: Jon Braxton M.D. on 02/01/2025 at 19:25 Approved by: Jon Braxton M.D. on 02/01/2025 at 19:27
--- NOTE | 2025-02-01 17:49 | DI.CT.S_ITS ---
PROCEDURE: CT HEAD/BRAIN WO CON INDICATIONS: fall TECHNIQUE: Noncontrast 4.5 mm thick angled axial sections acquired from the foramen magnum to the vertex, with coronal and sagittal reformats. For radiation dose reduction, the following was used: automated exposure control, adjustment of mA and/or kV according to patient size. COMPARISON: [facility], CT, CT HEAD/BRAIN WO CON, 09/20/2022, 1:09. FINDINGS: Image quality: Diagnostic. CSF spaces: Basal cisterns are patent. No extra-axial fluid collections. The ventricles are symmetric in size and shape. Brain: No intracranial bleeds or mass effect. There is cerebral volume loss, with resultant ventricular and sulcal prominence. There are periventricular and deep white matter chronic small vessel ischemic changes. There is intracranial internal carotid artery atherosclerosis. Skull and face: Calvarium and visualized facial bones appear intact, without suspicious lesions. Sinuses: Visualized sinuses and mastoids are clear. IMPRESSION: No acute intracranial pathology. Dictated by: Jon Braxton M.D. on 02/01/2025 at 18:29 Approved by: Jon Braxton M.D. on 02/01/2025 at 18:29
--- NOTE | 2025-02-01 17:52 | DI.RAD.S_ITS ---
PROCEDURE: XR SHOULDER RT MIN 2V INDICATIONS: fall TECHNIQUE: Three views of the shoulder were acquired. COMPARISON: [facility], CR, XR SHOULDER RT MIN 2V, 07/11/2022, 20:34. FINDINGS: Bones: Healed fracture deformity of the proximal humeral head and neck. Surgical fixation hardware is partially included in the humeral shaft. Bones are osteopenic. No acute displaced fracture is seen. Soft tissues: No suspicious soft tissue calcifications. IMPRESSION: 1. No acute osseous abnormality. If there is continued clinical concern or persistent symptoms, repeat radiographs or cross-sectional imaging (e.g. CT, MRI) may be helpful for further evaluation. 2. Chronic healed fracture deformity of the proximal humeral head and neck. 3. Humeral shaft fixation hardware is partially included. Approved by: Alex Causey M.D. on 02/01/2025 at 19:40
[2025-02-01] MEDS: MORPHINE 2 MG/ML INJ IV (18:00)
[2025-02-01] MEDS: ACETAMINOPHEN 325 MG TABLET 975 MG PO (18:00)
--- NOTE | 2025-02-01 18:54 | EKG_ITS ---
[address] [address] Test Date: 2025-02-01 Pat Name: Emani Leiva Department: Room: Gender: Female Precipitator: DARYL : 1950 Requested By: Order Number: [id number] Reading MD: Ty Zamora MD Measurements Intervals [place] Rate: 52 P: 80 [place]: 160 QRS: 83 QRSD: 68 T: 96 QT: 444 QTc: 412 Interpretive Statements Sinus bradycardia Nonspecific T wave abnormality Electronically Signed On 02-02-2025 12:09:39 PDT by Ty Zamora MD
[2025-02-01 19:38] LABS: Add Manual Diff / Slide Review NO; Basophils Absolute Auto 200 /uL (0-100); Basophils Percent Auto 1.3 % (0-2); Eosinophils Absolute Auto 100 /uL (0-450); Eosinophils Percent Auto 0.9 % (2-4); Hematocrit 29.8 % (36-46); Hemoglobin 9.7 g/dL (12.0-16.0); Lymphocytes Absolute Auto 2500 /uL (1100-4500); Lymphocytes Percent Auto 20.2 % (25-40); Mean Corpuscular HGB Conc 32.7 % (30-36); Mean Corpuscular Hemoglobin 33.4 PG (26-34); Mean Corpuscular Volume 102.2 fL (80-100); Monocytes Absolute Auto 1000 /uL (0-900); Neutrophils Absolute Auto 8800 /uL (1500-7000); Neutrophils Percent Auto 69.6 % (50-75); Platelet Count 389 X10^3/uL (150-400); Red Blood Cell Count 2.91 X10^6/uL (4.0-5.2); White Blood Cell Count 12.6 X10^3/uL (4.5-11.0)
[2025-02-01 19:47] LABS: Alanine Aminotransferase 62 IU/L (<35); Albumin 4.1 g/dL (3.5-5.0); Albumin Globulin Ratio 1.3 (1.0-2.8); Alkaline Phosphatase 209 U/L (38-126); Aspartate Aminotransferase 106 IU/L (14-36); BUN Creatinine Ratio 27.7 (6-22); Bilirubin Total 0.5 mg/dL (0.2-1.3); Blood Urea Nitrogen 26 mg/dL (7-17); Calcium 8.9 mg/dL (8.4-10.2); Carbon Dioxide 21 mmol/L (22-32); Chloride 101 mmol/L (98-107); Estimated Glomerular Filt Rate > 60 mL/min (>60); Globulin 3.2 g/dL (1.7-4.1); Glucose 104 mg/dL (70-99); HEMOLYSIS < 15 (0-50); Potassium 5.2 mmol/L (3.4-5.1); Sodium 131 mmol/L (137-145); Total Protein 7.3 g/dL (6.3-8.2)
[2025-02-01 19:59] LABS: Troponin I < 0.012 ng/mL (0.01-0.034)
[2025-02-01] MEDS: SODIUM CHLORIDE 0.9% 500 ML 1000 ML IV (20:44)
--- NOTE | 2025-02-01 20:49 | ED.FALL ---
HPI - Fall General Chief Complaint: Fall Stated Complaint: Fall, headache, hip pain Time Seen by Provider: 02/01/25 17:48 Source: patient and EMS Mode of arrival: EMS History of Present Illness HPI Narrative: 74-year-old woman with a history of chronic hypertension, hyperlipidemia, chronic kidney disease, cerebrovascular disease recurrent UTI has been referred to the [facility] for consideration of right nephrectomy due to continued infection, chronic low back pain and osteoporosis who presents stating that she had a mechanical fall, stumbling while she was trying to put on her pants did not hit her head, is not on anticoagulants but complains of shoulder pain knee pain toe pain hip pain Related Data Home Medications ?Medication ?Instructions ?Recorded ?Confirmed bisacodyl 10 mg rectal suppository 10 mg [place] DAILY PRN Constipation 08/21/22 11/03/24 (Dulcolax (bisacodyl)) Held on 08/28/24. Instructions: GI Bleed aspirin 81 mg tablet,delayed 81 mg PO DAILY 04/13/24 11/03/24 release (Adult Aspirin Regimen) Held on 08/28/24. Instructions: GI Bleed acetaminophen 325 mg capsule 650 mg PO BID PRN Pain 11/03/24 11/16/24 cholecalciferol (vitamin D3) 50 50 mcg PO DAILY 11/03/24 11/16/24 mcg (2,000 unit) capsule lidocaine 4 % topical patch 1 patch topical DAILY PRN pain 11/03/24 11/16/24 mirtazapine 15 mg tablet 15 mg PO BEDTIME 11/03/24 11/16/24 vit,calcium 27-ferrous 1 tab PO DAILY 11/03/24 11/16/24 fum 60 mg iron-folic acid 1 mg tablet (Trinatal Rx 1) thiamine mononitrate (vit B1) 100 100 mg PO DAILY 11/03/24 11/16/24 mg tablet Previous Rx's ?Medication ?Instructions ?Recorded food supplemt, lactose-reduced 1 ea PO TID #5,688 mL 11/20/23 0.05 gram-1.5 kcal/mL oral liquid (Ensure Plus) diclofenac sodium 1 % topical gel 2 g topical 4XD PRN pain #100 grams 07/27/24 Held on 08/28/24. Instructions: GI Bleed ferrous sulfate 325 mg (65 mg 325 mg PO DAILY #30 tabs 08/28/24 iron) tablet (FeroSul) pantoprazole 40 mg tablet,delayed 40 mg PO DAILY #90 tabs 09/23/24 release (Protonix) trazodone 50 mg tablet See Rx Instructions PO BEDTIME PRN 10/06/24 insomnia #60 tabs metoprolol tartrate 25 mg tablet 25 mg PO BID #180 tabs 11/05/24 atorvastatin 40 mg tablet 40 mg PO DAILY #90 tabs 11/20/24 Allergies Allergy/AdvReac Type Severity Reaction Status Date / Time furosemide (From Lasix) Allergy Intermediate Rash Verified 02/01/25 17:39 tramadol (TRAMADOL) Allergy Unknown Verified 02/01/25 17:39 amitriptyline (AMITRIPTYLINE) AdvReac Intermediate Confusion Verified 02/01/25 17:39 duloxetine AdvReac Intermediate GI distress Verified 02/01/25 17:39 cyclobenzaprine AdvReac Dizziness Verified 02/01/25 17:39 Review of Systems Review of Systems Narrative: Pertinent positive and negative findings as per HPI Patient History Medical History Family history of colon cancer in father Closed fracture of left distal femur Immunodeficiency due to conditions classified elsewhere Age-related osteoporosis without current pathological fracture History of vertebral compression fracture GERD without esophagitis Primary osteoarthritis involving multiple joints Chronic low back pain Stage 3b chronic kidney disease (CKD) Mixed hyperlipidemia Essential hypertension Cerebrovascular disease Coronary artery disease Recurrent UTI Displaced comminuted fracture of shaft of tibia Septic shock Left rib fracture Closed left clavicular fracture Iron (Fe) deficiency anemia Nephrolithiasis Peptic ulcer disease History of osteomyelitis Fracture, tibia Left foot drop Numbness and tingling HLD (hyperlipidemia) C. difficile colitis Colitis Anxiety Insomnia Arthritis DJD (degenerative joint disease) Depression Fibromyalgia Migraines Multiple fractures Osteoporosis Radius fracture (08/30/17) Neuropathy History of recurrent UTIs Renal disease Hypertension Chronic pain GI bleeding Surgical History Hx of kyphoplasty (07/28/19) Hx of kyphoplasty (04/28/19) Hx of kyphoplasty (~2013) Hx of elbow surgery Hx of appendectomy Hx of cholecystectomy Status post epidural steroid injection (03/25/19) H/O: hysterectomy Hx of tonsillectomy History of surgery Family History Mother No known health problems COPD (chronic obstructive pulmonary disease) Father No known health problems Social History household members: significant other and caregiver alcohol intake: current tobacco type: vaping alcohol intake frequency: holidays/special occasions only Exam Initial Vital Signs Initial Vital Signs: Vital Signs Temperature 98.5 F 02/01/25 17:49 Pulse Rate 63 02/01/25 17:49 Respiratory Rate 15 02/01/25 17:49 Blood Pressure 177/85 H 02/01/25 17:49 Pulse Oximetry 98 02/01/25 17:49 Oxygen Delivery Method Room Air 02/01/25 17:49 General: Chronically ill-appearing, frail, Able to give a complete and coherent history. HEENT: Moist mucous membranes, normal sclera with reactive pupils, head is atraumatic. Cervical spine does not show any point tenderness to palpation Respiratory: Lungs are clear to auscultation, no wheezing no rales no rhonchi. Full and symmetrical air movement Cardiac: Regular rate and rhythm no murmurs no bruits Abdomen: Soft, nontender, no rebound or guarding, no flank pain, no significant bruising or contusion Skin: Thin, Warm and dry, no rashes Neurologic: Globally weak, she feels that she is at her baseline Extremities: Bruising over the base of her right great toe. Neurovascularly intact. Psych: Cooperative, appropriate insight and affect Course Orders Ordered: Discontinued Medications Acetaminophen (Acetaminophen 325 Mg Tablet) 975 mg PO NOW ONE Stop: 02/01/25 17:49 Last Admin: 02/01/25 18:00 Dose: 975 mg Documented By: LONNY Sodium Chloride (Normal Saline 0.9%) 500 mls @ 1,000 mls/hr IV BOLUS ONE Stop: 02/01/25 19:23 Last Infusion: 02/01/25 21:28 Dose: Infused Documented By: Admin: 02/01/25 20:44 Dose: 1,000 mls/hr Documented By: SHARITA Morphine Sulfate (Morphine 2 Mg/Ml Inj) 2 mg IV NOW ONE Stop: 02/01/25 17:51 Last Admin: 02/01/25 18:00 Dose: 2 mg Documented By: LONNY Oxycodone HCl (Oxycodone Ir 5 Mg Tablet) 10 mg PO NOW ONE Stop: 02/01/25 21:39 Last Admin: 02/01/25 21:44 Dose: 10 mg Documented By: SHARITA Oxycodone/Acetaminophen (Oxycodone/Apap 5/325 Prepack) 1 bottle MISC DIRECTED ONE Stop: 02/01/25 21:54 Last Admin: 02/01/25 21:56 Dose: 1 bottle Documented By: SHARITA Vital Signs Vital signs: Vital Signs - 8 hr 02/01/25 17:49 Temperature 98.5 F Pulse Rate 63 Respiratory Rate 15 Blood Pressure 177/85 H Pulse Oximetry 98 Oxygen Delivery Method Room Air MDM - Fall Lab Data 02/01/25 19:19 02/01/25 19:19 Labs: Lab Results 02/01/25 Range/Units 19:19 WBC 12.6 H (4.5-11.0) X10^3/uL RBC 2.91 L (4.0-5.2) X10^6/uL Hgb 9.7 L (12.0-16.0) g/dL Hct 29.8 L (36-46) % MCV 102.2 H (80-100) fL MCH 33.4 (26-34) PG MCHC 32.7 (30-36) % RDW 16.0 H (11.6-14.8) % Plt Count 389 (150-400) X10^3/uL Neut % (Auto) 69.6 (50-75) % Lymph % (Auto) 20.2 L (25-40) % [place] % (Auto) 8.0 (3-14) % Eos % (Auto) 0.9 L (2-4) % Baso % (Auto) 1.3 (0-2) % Neut # (Auto) 8800 H (2793-5011) /uL Lymph # (Auto) 2500 (7916-9936) /uL [place] # (Auto) 1000 H (0-900) /uL Eos # (Auto) 100 (0-450) /uL Baso # (Auto) 200 H (0-100) /uL Sodium 131 L (137-145) mmol/L Potassium 5.2 H (3.4-5.1) mmol/L Chloride 101 (98-107) mmol/L Carbon Dioxide 21 L (22-32) mmol/L BUN 26 H (7-17) mg/dL Creatinine 0.94 (0.52-1.04) mg/dL Estimated GFR > 60 (>60) mL/min BUN/Creatinine Ratio 27.7 H (6-22) Glucose 104 H (70-99) mg/dL Calcium 8.9 (8.4-10.2) mg/dL Total Bilirubin 0.5 (0.2-1.3) mg/dL AST 106 H (14-36) IU/L ALT 62 H (<35) IU/L Alkaline Phosphatase 209 H (38-126) U/L Troponin I < 0.012 (0.01-0.034) ng/mL Total Protein 7.3 (6.3-8.2) g/dL Albumin 4.1 (3.5-5.0) g/dL Globulin 3.2 (1.7-4.1) g/dL Albumin/Globulin Ratio 1.3 (1.0-2.8) MDM Narrative Medical decision making narrative: CC: Fall, mechanical multiple complaints of pain Complicating co-morbidities: Multiple prior falls with fractures surgeries, currently has a caregiver at home. Data collected from: patient Social determinants of health that may influence the patients condition: Very high risk for recurrent falls Medical records reviewed: Primary care note from November 16 internal medicine reviewed Differential considered: Multiple falls, contusion, abrasions, sepsis, alternative explanation for her fall beyond simply losing her balance Exam documented above, pertinent findings include: Frail, chronically ill-appearing 74-year-old woman who is alert and appropriate. All of the areas of tenderness to not have obvious injury. She has appropriate range of motion all involved joints. Her left great toe has some bruising at the base of the toe. Lab Test results independently reviewed as above. Pertinent findings: CBC shows a white count of 12.6, H and H of 9.7 and 29.8 which does not seem to be that far from her baseline Chemistries show minimally elevated potassium at 5.2, creatinine is appropriate at 0.94. Slight increase in ALT, AST and alk-phos with normal bilirubin Troponin is undetectable Independently reviewed EKG: Sinus rhythm at a rate of 52 with no acute ischemic change Imaging studies independently reviewed: CT scan of the left lower extremity with contrast was ordered by her orthopedic doctor and was performed earlier this morning showing appropriate postsurgical changes in healing fracture Imaging done today after her acute fall show CT scan of the cervical spine is unremarkable CT scan of the head shows no bleeding or acute fractures Hip x-ray shows no new injury, remote injuries and hardware appreciated Knee x-ray shows remote injuries and hardware but no gross obvious abnormalities Toe x-ray does not show fracture or dislocation Shoulder x-ray shows old hardware no new fractures Treatments: tylenol. oxycodone, 2 mg IV morphine, 1 L NS Discussion: 74-year-old woman with mechanical fall. Chronic left lower extremity weakness from pain and prior stroke. All areas of pain were imaged today did not show any new fractures all prior fractures and hardware seemed to be appropriately placed and appropriately healed. Lab work is relatively unremarkable. This truly does appear to be mechanical fall with multiple contusions no fractures and she will be discharged home. Does look like she had been on chronic pain medications and was successfully weaned off is now using Tylenol only, we will give her a prepack of Percocet for the next 24 hours and ask her to return to Tylenol after that. There was no indication for further imaging hospitalization or additional workup. She is safe for discharge Discharge Plan Departure Patient Disposition: Home Clinical Impression: Pain of right great toe, Acute pain of left knee Fall Qualifiers: Encounter type: initial encounter Qualified Code(s): W19.XXXA - Unspecified fall, initial encounter Activity Restrictions/Additional Instructions: Thank you for coming in today Fortunately, this time you did not actually break anything. With the we x-rayed all of the places where you complaining of pain. Your toe does have a significant bruise, there is no underlying broken bone. The CT scan that you had done earlier today for Dr. Smith also shows appropriately healing bone in your thigh I have given you couple of doses of Percocet to use over the next day to augment the Tylenol you currently take for pain. It does help to stay as mobile as possible. I would recommend follow up with your primary care physician if you are having increasing pain and you are welcome to return to the emergency department if you develop new findings. Prescriptions: No Action Ensure Plus 0.05 gram- 1.5 kcal/mL liquid 1 ea PO TID Qty: 5688 6RF Rx Instructions: Chocolate flavor is requested. diclofenac sodium 1 % gel 2 g topical 4XD PRN (Reason: pain) Qty: 100 0RF pantoprazole [Protonix] 40 mg tablet,delayed release (DR/EC) 40 mg PO DAILY Qty: 90 3RF metoprolol tartrate 25 mg tablet 25 mg PO BID Qty: 180 0RF Rx Instructions: Take 1 Tablet PO BID atorvastatin 40 mg tablet 40 mg PO DAILY Qty: 90 2RF bisacodyl [Dulcolax (bisacodyl)] 10 mg suppository 10 mg [place] DAILY PRN (Reason: Constipation) Patient Comments: no longer takes ferrous sulfate [FeroSul] 325 mg (65 mg iron) tablet 325 mg PO DAILY Qty: 30 0RF mirtazapine 15 mg tablet 15 mg PO BEDTIME Patient Comments: Pt reports taking 1 tablets at bedtime. lidocaine 4 % adhesive patch,medicated 1 patch topical DAILY PRN (Reason: pain) Patient Comments: Pt reports taking 1 patch to right knee PRN for pain. thiamine mononitrate (vit B1) 100 mg tablet 100 mg PO DAILY Patient Comments: Pt reports taking 1 tablet (100mg) total daily. cholecalciferol (vitamin D3) 50 mcg (2,000 unit) capsule 50 mcg PO DAILY Patient Comments: Patient reports taking 1 capsule daily. acetaminophen 325 mg capsule 650 mg PO BID PRN (Reason: Pain) Patient Comments: Patient reports taking 2 tablets (1000mg) in the morning and 1 tablet (500mg) in the evening before bedtime for pain. Rx Instructions: Take 2 tablets (650mg) PO BID PRN for pain. Trinatal Rx 1 60 mg iron-1 mg tablet 1 tab PO DAILY Rx Instructions: 1 tablet PO Daily WM aspirin [Adult Aspirin Regimen] 81 mg tablet,delayed release (DR/EC) 81 mg PO DAILY trazodone 50 mg tablet See Rx Instructions PO BEDTIME PRN (Reason: insomnia) Qty: 60 5RF Rx Instructions: 1-2 tablets nightly as needed for sleep Referrals: Ricardo Cantu MD [Primary Care Provider, Internal Medicine] Stand Alone Forms: Patient Portal/API
[2025-02-01] MEDS: OXYCODONE IR 5 MG TABLET 10 MG PO (21:44)
[2025-02-01] MEDS: OXYCODONE/APAP 5/325 PREPACK 1 BOTTLE MISC (21:56)
== END 2025-02-01 22:08 | disposition home or self-care (01) ==
PROVIDERS: Emergency Provider Emergency Medicine; PCP Internal Medicine
DX: M79.674 Pain in right toe(s) (principal); M25.562 Pain in left knee; M25.551 Pain in right hip; R51.9 Headache, unspecified; W01.0XXA Fall on same level from slipping, tripping and stumbling without subsequent striking against object, initial encounter; S72.452G Displaced supracondylar fracture without intracondylar extension of lower end of left femur, subsequent encounter for closed fracture with delayed healing; S32.512D Fracture of superior rim of left pubis, subsequent encounter for fracture with routine healing
CPT/HCPCS: 70450; 72125; 73030; 73502; 73562; 73660; 73700; 80053; 84484; 85025; 93005; 93010; 96361; 96374; 99284; J2270

== ENCOUNTER 2025-02-13 22:45 | Emergency (ER) | payer MEDICARE, MEDICAID, SELFPAY ==
[2022-07-22 07:16] VITALS: RESP 28
[2022-07-22 14:33] VITALS: PULSE 127; RESP 38; O2SAT 100
[2024-04-29 23:02] VITALS: BMI 18.6
[2025-02-13 22:59] VITALS: BP 162/75; PULSE 77; RESP 18; O2SAT 98; BMI 20.4
--- NOTE | 2025-02-13 23:04 | DI.RAD.S_ITS ---
PROCEDURE: XR SHOULDER RT MIN 2V INDICATIONS: FALL 1 WEEK AGO TECHNIQUE: 3 views of the shoulder were acquired. COMPARISON: [facility], CR, XR SHOULDER RT 2+ VIEWS, 02/01/2025, 18:08. FINDINGS: Bones: No fractures or dislocations. No suspicious bony lesions. Visualized ribs appear intact. ORIF of the humerus. Impacted appearance of old humeral head/neck fracture. Severe degenerative changes at the acromioclavicular and glenohumeral joint spaces. Soft tissues: No suspicious soft tissue calcifications. IMPRESSION: No visualized acute fracture or dislocation. However, if clinical concern and/or pain persist, short interval imaging followup in 7-10 days is recommended, as occult injury cannot be definitively excluded. Dictated by: Nikia Nolasco M.D. on 02/14/2025 at 0:35 Approved by: Nikia Nolasco M.D. on 02/14/2025 at 0:36
--- NOTE | 2025-02-13 23:04 | EKG_ITS ---
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
--- NOTE | 2025-02-13 23:04 | DI.RAD.S_ITS ---
PROCEDURE: XR PELVIS 1-2V INDICATIONS: FALL 1 WEEK AGO, Rt hip pain TECHNIQUE: 1 view(s) of the pelvis acquired. COMPARISON: Located [facility], CR, XR PELVIS 1-2V, 03/29/2024, 6:38. FINDINGS: Bones: No fractures or dislocations. No suspicious bony lesions. Femoral fixation. Old pubic ramus fracture. Soft tissues: Visualized bowel gas pattern is normal. No suspicious soft tissue calcifications. IMPRESSION: No visualized acute fracture or dislocation. However, if clinical concern and/or pain persist, short interval imaging followup in 7-10 days is recommended, as occult injury cannot be definitively excluded. Dictated by: Nikia Nolasco M.D. on 02/14/2025 at 0:34 Approved by: Nikia Nolasco M.D. on 02/14/2025 at 0:35
--- NOTE | 2025-02-13 23:04 | ED.FALL ---
HPI - Fall General Chief Complaint: Extremity Injury, Lower Stated Complaint: Right hip pain/s/p fall 1 week ago History of Present Illness HPI Narrative: 74-year-old female history of hypertension, dyslipidemia, CKD, CVA, chronic low back pain, osteoporosis, fell 5-7 days ago mechanical fall hitting the jose alberto potty and nightstand on the way down presents tonight with pain in the right shoulder, right rib region, right pelvis, and right foot brought in via EMS. Patient denies headache, dizziness, blurred vision, neck pain, chest pain, shortness of breath, back pain, nausea, vomiting, numbness, tingling, down the legs, bowel or bladder incontinence. Other than what is stated 14 point review of systems negative. Related Data Home Medications ?Medication ?Instructions ?Recorded ?Confirmed bisacodyl 10 mg rectal suppository 10 mg CO DAILY PRN Constipation 08/21/22 11/03/24 (Dulcolax (bisacodyl)) Held on 08/28/24. Instructions: GI Bleed aspirin 81 mg tablet,delayed 81 mg PO DAILY 04/13/24 11/03/24 release (Adult Aspirin Regimen) Held on 08/28/24. Instructions: GI Bleed acetaminophen 325 mg capsule 650 mg PO BID PRN Pain 11/03/24 11/16/24 cholecalciferol (vitamin D3) 50 50 mcg PO DAILY 11/03/24 11/16/24 mcg (2,000 unit) capsule lidocaine 4 % topical patch 1 patch topical DAILY PRN pain 11/03/24 11/16/24 mirtazapine 15 mg tablet 15 mg PO BEDTIME 11/03/24 11/16/24 vit,calcium 27-ferrous 1 tab PO DAILY 11/03/24 11/16/24 fum 60 mg iron-folic acid 1 mg tablet (Trinatal Rx 1) thiamine mononitrate (vit B1) 100 100 mg PO DAILY 11/03/24 11/16/24 mg tablet Previous Rx's ?Medication ?Instructions ?Recorded food supplemt, lactose-reduced 1 ea PO TID #5,688 mL 11/20/23 0.05 gram-1.5 kcal/mL oral liquid (Ensure Plus) diclofenac sodium 1 % topical gel 2 g topical 4XD PRN pain #100 grams 07/27/24 Held on 08/28/24. Instructions: GI Bleed ferrous sulfate 325 mg (65 mg 325 mg PO DAILY #30 tabs 08/28/24 iron) tablet (FeroSul) pantoprazole 40 mg tablet,delayed 40 mg PO DAILY #90 tabs 09/23/24 release (Protonix) trazodone 50 mg tablet See Rx Instructions PO BEDTIME PRN 10/06/24 insomnia #60 tabs atorvastatin 40 mg tablet 40 mg PO DAILY #90 tabs 11/20/24 metoprolol tartrate 25 mg tablet 25 mg PO BID #180 tabs 02/03/25 Allergies Allergy/AdvReac Type Severity Reaction Status Date / Time furosemide (From Lasix) Allergy Intermediate Rash Verified 02/01/25 17:39 tramadol (TRAMADOL) Allergy Unknown Verified 02/01/25 17:39 amitriptyline (AMITRIPTYLINE) AdvReac Intermediate Confusion Verified 02/01/25 17:39 duloxetine AdvReac Intermediate GI distress Verified 02/01/25 17:39 cyclobenzaprine AdvReac Dizziness Verified 02/01/25 17:39 Review of Systems Review of Systems ROS Unobtainable: All systems reviewed & are unremarkable except as noted in HPI and below Patient History Medical History Family history of colon cancer in father Closed fracture of left distal femur Immunodeficiency due to conditions classified elsewhere Age-related osteoporosis without current pathological fracture History of vertebral compression fracture GERD without esophagitis Primary osteoarthritis involving multiple joints Chronic low back pain Stage 3b chronic kidney disease (CKD) Mixed hyperlipidemia Essential hypertension Cerebrovascular disease Coronary artery disease Recurrent UTI Displaced comminuted fracture of shaft of tibia Septic shock Left rib fracture Closed left clavicular fracture Iron (Fe) deficiency anemia Nephrolithiasis Peptic ulcer disease History of osteomyelitis Fracture, tibia Left foot drop Numbness and tingling HLD (hyperlipidemia) C. difficile colitis Colitis Anxiety Insomnia Arthritis DJD (degenerative joint disease) Depression Fibromyalgia Migraines Multiple fractures Osteoporosis Radius fracture (08/30/17) Neuropathy History of recurrent UTIs Renal disease Hypertension Chronic pain GI bleeding Surgical History Hx of kyphoplasty (07/28/19) Hx of kyphoplasty (04/28/19) Hx of kyphoplasty (~2013) Hx of elbow surgery Hx of appendectomy Hx of cholecystectomy Status post epidural steroid injection (03/25/19) H/O: hysterectomy Hx of tonsillectomy History of surgery Family History Mother No known health problems COPD (chronic obstructive pulmonary disease) Father No known health problems Social History household members: significant other and caregiver alcohol intake: current tobacco type: vaping alcohol intake frequency: holidays/special occasions only Exam Narrative Exam Narrative: GENERAL: [74] year old patient appears stated age. Well-developed patient, in mild distress. HEAD: Atraumatic. Normocephalic. EYES: Pupils equal round and reactive. Extraocular motions intact. No scleral icterus. No injection or drainage. ENT: Nose without bleeding, purulent drainage. Throat without erythema, tonsillar hypertrophy or exudate. Airway patent. NECK: Trachea midline. Non tender CARDIOVASCULAR: Regular rate and rhythm without murmurs, gallops, or rubs. RESPIRATORY: Clear to auscultation. Breath sounds equal bilaterally. No wheezes, rales, or rhonchi. GASTROINTESTINAL: Abdomen soft, non-tender, nondistended. EXTREMITIES: R Shoulder TTP with decrease in range of motion flexion extension abduction adduction, right anterolateral ribs tender to palpate 6 through 10, right hip tender to palpate but stable, right dorsal lateral foot hematoma, motor sensory intact +2 DP +2 PT cap refill less than 2nd BACK: Nontender without deformity or crepitance. No flank tenderness. NEURO: AOx3. SKIN: No rash or erythema of visible areas Initial Vital Signs Initial Vital Signs: Vital Signs Pulse Rate 77 02/13/25 22:59 Respiratory Rate 18 02/13/25 22:59 Blood Pressure 162/75 H 02/13/25 22:59 Pulse Oximetry 98 02/13/25 22:59 Oxygen Delivery Method Room Air 02/13/25 22:59 Course Orders Ordered: ED Orders 02/13/25 23:04 XR foot RT min 3V Stat XR pelvis 1-2V Stat XR ribs RT 2V Stat XR shoulder RT 2+ views Stat EKG-12 Lead Stat 02/13/25 23:34 Complete Blood Count AUTO DIFF Stat Comprehensive Metabolic Panel Stat Troponin & CK Cardiac Panel Stat Discontinued Medications Morphine Sulfate (Morphine 4 Mg/Ml Inj) 4 mg IV NOW ONE Stop: 02/13/25 23:46 Last Admin: 02/13/25 23:49 Dose: 4 mg Documented By: AB Vital Signs Vital signs: Vital Signs - 8 hr 02/13/25 22:59 Pulse Rate 77 Respiratory Rate 18 Blood Pressure 162/75 H Pulse Oximetry 98 Oxygen Delivery Method Room Air MDM - Fall Lab Data 02/13/25 23:34 02/13/25 23:34 Labs: Lab Results 02/13/25 Range/Units 23:34 WBC 10.0 (4.5-11.0) X10^3/uL RBC 2.96 L (4.0-5.2) X10^6/uL Hgb 9.9 L (12.0-16.0) g/dL Hct 29.6 L (36-46) % MCV 100.0 (80-100) fL MCH 33.6 (26-34) PG MCHC 33.6 (30-36) % RDW 15.9 H (11.6-14.8) % Plt Count 915 H* (150-400) X10^3/uL Neut % (Auto) 62.7 (50-75) % Lymph % (Auto) 23.9 L (25-40) % Gulf % (Auto) 9.7 (3-14) % Eos % (Auto) 1.7 L (2-4) % Baso % (Auto) 2.0 (0-2) % Neut # (Auto) 6300 (5662-1038) /uL Lymph # (Auto) 2400 (4619-8372) /uL Gulf # (Auto) 1000 H (0-900) /uL Eos # (Auto) 200 (0-450) /uL Baso # (Auto) 200 H (0-100) /uL Platelet Estimate Increased on smear RBC Morphology See below Anisocytosis 1+ H Macrocytosis 1+ H Sodium 141 (137-145) mmol/L Potassium 5.4 H (3.4-5.1) mmol/L Chloride 114 H (98-107) mmol/L Carbon Dioxide 16 L (22-32) mmol/L BUN 36 H (7-17) mg/dL Creatinine 1.15 H (0.52-1.04) mg/dL Estimated GFR 50 L (>60) mL/min BUN/Creatinine Ratio 31.3 H (6-22) Glucose 93 (70-99) mg/dL Calcium 9.3 (8.4-10.2) mg/dL Total Bilirubin 0.4 (0.2-1.3) mg/dL AST 34 (14-36) IU/L ALT 39 H (<35) IU/L Alkaline Phosphatase 259 H (38-126) U/L Total Creatine Kinase 230 H (30-135) U/L Troponin I < 0.012 (0.01-0.034) ng/mL Total Protein 7.6 (6.3-8.2) g/dL Albumin 3.9 (3.5-5.0) g/dL Globulin 3.7 (1.7-4.1) g/dL Albumin/Globulin Ratio 1.1 (1.0-2.8) Imaging Data Extremity x-ray #1: Radiologist's Impression: [address] [address] XRay Report Signed Patient: Emani Leiva MR#: [id number] : 1950 Acct:[id number] Age/Sex: 74 / F Date of Service: 02/13/25 Loc: ED Accession Number: [id number] Procedure: XR shoulder RT 2+ views Ordering Provider: Ty Ba D.O. PROCEDURE: XR SHOULDER RT MIN 2V INDICATIONS: FALL 1 WEEK AGO TECHNIQUE: 3 views of the shoulder were acquired. COMPARISON: Located Within [facility], , XR SHOULDER RT 2+ VIEWS, 02/01/2025, 18:08. FINDINGS: Bones: No fractures or dislocations. No suspicious bony lesions. Visualized ribs appear intact. ORIF of the humerus. Impacted appearance of old humeral head/neck fracture. Severe degenerative changes at the acromioclavicular and glenohumeral joint spaces. Soft tissues: No suspicious soft tissue calcifications. IMPRESSION: No visualized acute fracture or dislocation. However, if clinical concern and/or pain persist, short interval imaging followup in 7-10 days is recommended, as occult injury cannot be definitively excluded. Chest x-ray: Radiologist's Impression: [address] [address] XRay Report Signed Patient: Emani Leiva MR#: [id number] : 1950 Acct:[id number] Age/Sex: 74 / F Date of Service: 02/13/25 Loc: ED Accession Number: [id number] Procedure: XR ribs RT 2V Ordering Provider: Ty Ba D.O. PROCEDURE: XR RIBS RT 2V INDICATIONS: FALL 1 WEEK AGO TECHNIQUE: 2 views of the ribs were acquired. COMPARISON: None. FINDINGS: Surgical changes and devices: None. Bones and chest wall: No fractures or dislocations. No suspicious bony lesions. Overlying soft tissues appear unremarkable. Lungs and pleura: The visualized lung appears clear. No pleural effusions or pneumothorax are visible. IMPRESSION: No visualized acute fracture or dislocation. However, if clinical concern and/or pain persist, short interval imaging followup in 7-10 days is recommended, as occult injury cannot be definitively excluded. Extremity x-ray #2: Radiologist's Impression: [address] [address] XRay Report Signed Patient: Emani Leiva MR#: [id number] : 1950 Acct:[id number] Age/Sex: 74 / F Date of Service: 02/13/25 Loc: ED Accession Number: [id number] Procedure: XR pelvis 1-2V Ordering Provider: Ty Ba D.O. PROCEDURE: XR PELVIS 1-2V INDICATIONS: FALL 1 WEEK AGO, Rt hip pain TECHNIQUE: 1 view(s) of the pelvis acquired. COMPARISON: Located Within [facility], , XR PELVIS 1-2V, 03/29/2024, 6:38. FINDINGS: Bones: No fractures or dislocations. No suspicious bony lesions. Femoral fixation. Old pubic ramus fracture. Soft tissues: Visualized bowel gas pattern is normal. No suspicious soft tissue calcifications. IMPRESSION: No visualized acute fracture or dislocation. However, if clinical concern and/or pain persist, short interval imaging followup in 7-10 days is recommended, as occult injury cannot be definitively excluded. Extremity x-ray #3: Radiologist's Impression: [address] [address] XRay Report Signed Patient: Emani Leiva MR#: [id number] : 1950 Acct:[id number] Age/Sex: 74 / F Date of Service: 02/13/25 Loc: ED Accession Number: [id number] Procedure: XR foot RT min 3V Ordering Provider: Ty Ba D.O. PROCEDURE: XR FOOT RT MIN 3V INDICATIONS: FALL, bruising to dorsal surface and Great toe TECHNIQUE: 3 views of the foot were acquired. COMPARISON: Located Within [facility], CR, XR FOOT LT MIN 3V, 11/10/2019, 13:12. FINDINGS: Bones: No fractures or dislocations. No suspicious bony lesions. Diffuse degenerative change. Soft tissues: No tibiotalar joint effusion. Achilles tendon appears normal. IMPRESSION: No visualized acute fracture or dislocation. However, if clinical concern and/or pain persist, short interval imaging followup in 7-10 days is recommended, as occult injury cannot be definitively excluded. ECG Data Interpretation: NSR HR 74 CO 150 QRS [address]-t wave change Change from ekg to compare MDM Narrative Medical decision making narrative: All lab work, vital signs, nurse triage note, medication list, previous ER visits, and all imaging studies reviewed. Shoulder x-ray ribs pelvis and foot x-ray all showed no acute process. Patient lives with significant other who is unable to care for her safely at home. Patient feels unsteady, weak and deconditioned at this time. She fell recently from sitting to standing position feels unsafe at home with limited caregiving available to assist her at home. Patient received morphine and Mckee here for pain control. Differential diagnosis includes pneumonia, uti, pneumothorax, rib fracture, deconditioning, pain management. Discharge Plan Departure Prescriptions: No Action Ensure Plus 0.05 gram- 1.5 kcal/mL liquid 1 ea PO TID Qty: 5688 6RF Rx Instructions: Chocolate flavor is requested. diclofenac sodium 1 % gel 2 g topical 4XD PRN (Reason: pain) Qty: 100 0RF pantoprazole [Protonix] 40 mg tablet,delayed release (DR/EC) 40 mg PO DAILY Qty: 90 3RF atorvastatin 40 mg tablet 40 mg PO DAILY Qty: 90 2RF metoprolol tartrate 25 mg tablet 25 mg PO BID Qty: 180 1RF Rx Instructions: Take 1 Tablet PO BID bisacodyl [Dulcolax (bisacodyl)] 10 mg suppository 10 mg CO DAILY PRN (Reason: Constipation) Patient Comments: no longer takes ferrous sulfate [FeroSul] 325 mg (65 mg iron) tablet 325 mg PO DAILY Qty: 30 0RF mirtazapine 15 mg tablet 15 mg PO BEDTIME Patient Comments: Pt reports taking 1 tablets at bedtime. lidocaine 4 % adhesive patch,medicated 1 patch topical DAILY PRN (Reason: pain) Patient Comments: Pt reports taking 1 patch to right knee PRN for pain. thiamine mononitrate (vit B1) 100 mg tablet 100 mg PO DAILY Patient Comments: Pt reports taking 1 tablet (100mg) total daily. cholecalciferol (vitamin D3) 50 mcg (2,000 unit) capsule 50 mcg PO DAILY Patient Comments: Patient reports taking 1 capsule daily. acetaminophen 325 mg capsule 650 mg PO BID PRN (Reason: Pain) Patient Comments: Patient reports taking 2 tablets (1000mg) in the morning and 1 tablet (500mg) in the evening before bedtime for pain. Rx Instructions: Take 2 tablets (650mg) PO BID PRN for pain. Trinatal Rx 1 60 mg iron-1 mg tablet 1 tab PO DAILY Rx Instructions: 1 tablet PO Daily WM aspirin [Adult Aspirin Regimen] 81 mg tablet,delayed release (DR/EC) 81 mg PO DAILY trazodone 50 mg tablet See Rx Instructions PO BEDTIME PRN (Reason: insomnia) Qty: 60 5RF Rx Instructions: 1-2 tablets nightly as needed for sleep Referrals: Ricardo Cantu MD [Primary Care Provider, Internal Medicine]
[2025-02-13 23:45] LABS: Add Manual Diff / Slide Review NO; Basophils Absolute Auto 200 /uL (0-100); Eosinophils Absolute Auto 200 /uL (0-450); Eosinophils Percent Auto 1.7 % (2-4); Hematocrit 29.6 % (36-46); Hemoglobin 9.9 g/dL (12.0-16.0); Lymphocytes Absolute Auto 2400 /uL (1100-4500); Lymphocytes Percent Auto 23.9 % (25-40); Mean Corpuscular HGB Conc 33.6 % (30-36); Mean Corpuscular Hemoglobin 33.6 PG (26-34); Monocytes Absolute Auto 1000 /uL (0-900); Monocytes Percent Auto 9.7 % (3-14); Neutrophils Absolute Auto 6300 /uL (1500-7000); Neutrophils Percent Auto 62.7 % (50-75); Red Blood Cell Count 2.96 X10^6/uL (4.0-5.2); Red Cell Distribution Width 15.9 % (11.6-14.8)
[2025-02-13] MEDS: MORPHINE 4 MG/ML INJ IV (23:49)
[2025-02-13 23:54] LABS: Platelet Count 915 X10^3/uL (150-400)
[2025-02-14] VITALS (8 sets, daily range): BP systolic 127–185; BP diastolic 70–84; PULSE 76–104; RESP 14–18; TEMP 36.6–36.8; O2SAT 95–99; BMI 20.4
[2025-02-14] LABS: Alanine Aminotransferase 39 IU/L (<35); Albumin 3.9 g/dL (3.5-5.0); Albumin Globulin Ratio 1.1 (1.0-2.8); Alkaline Phosphatase 259 U/L (38-126); Aspartate Aminotransferase 34 IU/L (14-36); BUN Creatinine Ratio 31.3 (6-22); Bilirubin Total 0.4 mg/dL (0.2-1.3); Blood Urea Nitrogen 36 mg/dL (7-17); Calcium 9.3 mg/dL (8.4-10.2); Carbon Dioxide 16 mmol/L (22-32); Chloride 114 mmol/L (98-107); Creatine Kinase 230 U/L (30-135); Estimated Glomerular Filt Rate 50 mL/min (>60); Globulin 3.7 g/dL (1.7-4.1); Glucose 93 mg/dL (70-99); HEMOLYSIS < 15 (0-50); Sodium 141 mmol/L (137-145); Total Protein 7.6 g/dL (6.3-8.2)
[2025-02-14 00:03] LABS: Potassium 5.4 mmol/L (3.4-5.1)
[2025-02-14 00:12] LABS: Troponin I < 0.012 ng/mL (0.01-0.034)
[2025-02-14 00:24] LABS: Anisocytosis 1+; Macrocytosis 1+; Platelet Estimate Increased on smear
[2025-02-14] MEDS: HYDROCODONE/ACET 5/325 TABLET 1 TAB PO (02:48)
[2025-02-14] MEDS: METOPROLOL IR 25 MG TABLET PO ×2 (09:13→21:59)
[2025-02-14] MEDS: ACETAMINOPHEN 325 MG TABLET 650 MG PO ×3 (09:14→22:01)
[2025-02-14] MEDS: ATORVASTATIN 20 MG TABLET 40 MG PO (09:14)
[2025-02-14] MEDS: OXYCODONE IR 5 MG TABLET PO (09:15)
--- NOTE | 2025-02-14 09:56 | PC.WOUNDPHOT ---
Addendum entered by Urmila Bonilla R.N. 02/14/25 10:10: Addendum Bruise to right dorsum of foot Addendum entered by Urmila Bonilla R.N. 02/14/25 10:09: 1st picture--Right cheek (pt reports from fall 1 week ago) 2nd picture--Bottom, right of sacrum 3rd picture-- Right breast (pt reports from fall 1 week ago) 4th Picture-- Right, inner thigh (pt reports from fall 1 week ago) Otherwise, skin dry and intact. Skin check completed by Urmila LEE and Sridhar MORALES Original Note:
[2025-02-14] MEDS: ENOXAPARIN 100 MG/ML SYRINGE 50 MG SUBCUT ×2 (10:15→22:00)
[2025-02-14] MEDS: OXYCODONE IR 5 MG TABLET 10 MG PO ×3 (10:56→23:04)
--- NOTE | 2025-02-14 11:12 | PT.IIE ---
Surgical History (Last Reviewed 02/01/25 @ 21:42 by Delores Massey MD) H/O: hysterectomy History of surgery Hx of appendectomy Hx of cholecystectomy Hx of elbow surgery Hx of kyphoplasty (~2013) Hx of kyphoplasty (04/28/19) Hx of kyphoplasty (07/28/19) Hx of tonsillectomy Status post epidural steroid injection (03/25/19) Medical History (Last Reviewed 02/01/25 @ 21:42 by Delores Massey MD) Age-related osteoporosis without current pathological fracture Anxiety Arthritis C. difficile colitis Cerebrovascular disease Chronic low back pain Chronic pain Closed fracture of left distal femur Closed left clavicular fracture Colitis Coronary artery disease Depression Displaced comminuted fracture of shaft of tibia DJD (degenerative joint disease) Essential hypertension Family history of colon cancer in father Fibromyalgia Fracture, tibia GERD without esophagitis GI bleeding History of osteomyelitis History of recurrent UTIs History of vertebral compression fracture HLD (hyperlipidemia) Hypertension Immunodeficiency due to conditions classified elsewhere Insomnia Iron (Fe) deficiency anemia Left foot drop Left rib fracture Migraines Mixed hyperlipidemia Multiple fractures Nephrolithiasis Neuropathy Numbness and tingling Osteoporosis Peptic ulcer disease Primary osteoarthritis involving multiple joints Radius fracture (08/30/17) Recurrent UTI Renal disease Septic shock Stage 3b chronic kidney disease (CKD) Physical Therapy Inpatient Evaluation/Re-Eval M1 PT/OT-IP Prior Functional Status Start: 02/14/25 10:54 Freq: Status: Active Protocol: Document 02/14/25 10:27 MB (Rec: 02/14/25 11:12 MB Desktop) Medical Review Prior Functional Status Medical History Yes Reviewed Diet/Fluid Regular Consistency Communication WNLs Mobility and Gait SPT to the left to BSC or w/c without assistance, had a recent fall last week Activities of Daily Caregiver assistance for bathing and dressing and Living and IADL's sponge bath, spends most of the time in the bed Prior Functional Pt does not have right post-op shoe for right foot in Level (Other details the room but ortho note on 02/04/25 states that she uses ) one at home. Pt con't to state that she is NWB LLE since last summer after LLE injury and surgery at [facility] and Dr. Carpio's note on 02/04/25 reports this as well Social History Household Members significant other,caregiver Living Arrangements House Number of Floors ( One Floor Floors) Number of Stairs To Ramped entrance Enter/Railing? Home Environment Ramp Home Equipment Manual Wheelchair,Bedside Commode Employment Status Retired M2 PT-IP Current Condition Start: 02/14/25 10:54 Freq: Status: Active Protocol: Document 02/14/25 10:27 MB (Rec: 02/14/25 11:12 MB Desktop) Physical Therapy Current Condition Current Condition Evaluation Date 02/14/25 Treatment Diagnosis Pain after fall, returned to ED M3 PT-IP Subjective Start: 02/14/25 10:54 Freq: Status: Active Protocol: Document 02/14/25 10:27 MB (Rec: 02/14/25 11:12 MB Desktop) Subjective Physical Therapy Visit Type Type Initial Evaluation Visit Start Time 10:27 Visit Stop Time 10:47 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 of 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 Visits 0 Physical Therapy Visit Comments Patient Comments Pt reports high pain at 9/10 after receiving pain medication, most pain in right hip Therapy Pain Assessment Pain When Pain Assessed At Rest Pain Present Pain Present Pain Reported Location Right Hip Intensity 9 Scale Used Numeric (0 - 10) M4 PT-IP Mobility and Gait Start: 02/14/25 10:54 Freq: Status: Active Protocol: Document 02/14/25 10:27 MB (Rec: 02/14/25 11:12 MB Desktop) PT-Bed Mobility Assessment Rolling Type of Rolling Roll to Right,Roll to Left Level of Assist Independent Supine to Sit Supine to Sit Independent Sit to Supine Sit to Supine Independent Scooting Scooting to Edge of Independent Bed PT-Transfer Assessment Comments Mobility Comments Pt reports high pain and so did not perform SPT this date and there is no location in ED room to practice this at this time and she does not need to toilet at this time Gait Assessment Comments Gait Comments N/a, not ambulating in over a year PT-Balance Assessment Sitting Balance and Reactions Static Sitting Normal Balance Ability Dynamic Sitting Normal Balance Ability M5 PT-IP Objective Assessments Start: 02/14/25 10:54 Freq: Status: Active Protocol: Document 02/14/25 10:27 MB (Rec: 02/14/25 11:12 MB Desktop) Orientation Orientation/Cognition Level of Alertness Alert Orientation Name,Age,Birthday,Month,Place,Situation Language Function No Deficits Noted Ability Safety Awareness Decreased Safety Awareness Memory Description No Deficits Noted Gross Range of Motion Upper Extremity ROM Assessment Bilaterally Impaired Impairments Left greater than right shoulder flexion reduced and limited by pain Lower Extremity ROM Assessment Bilaterally Impaired Impairments Overall, pretty good functional range sitting EOB given high c/o pain with most limitations in left ankle DF and movement Strength Upper Extremity Strength Assessment Bilaterally Impaired Lower Extremity Strength Assessment Bilaterally Impaired Comments Strength Comments Deferred MMT given high c/o pain, injuries in shoulders , hips, pelvis and left knee and pt's frailty, Coordination Assessment Assessment Coordination NT Comments Sensation Assessment Sensation Gross Sensation Left LE Impaired Sensation Hyperesthesia Description Muscle Tone Muscle Tone WNL Yes M6 PT-IP Treatment Start: 02/14/25 10:54 Freq: Status: Active Protocol: Document 02/14/25 10:27 MB (Rec: 02/14/25 11:12 MB Desktop) Physical Therapy Treatment Other Treatments Other Treatment Discussed LLE WB and pt con't to state that she is NWB Performed through LLE and that she performs transfers to the left despite this M7 PT-IP Assessment and Plan Start: 02/14/25 10:54 Freq: Status: Active Protocol: Document 02/14/25 10:27 MB (Rec: 02/14/25 11:12 MB Desktop) PT Summary Assessment and Plan Potential Rehabilitation Fair Potential Status of Condition Evolving at Evaluation Summary Impairments Pain,ROM,Strength,Balance,Coordination,Sensation, Transfers,Gait,Activity Tolerance Progress Towards Slow Progress due to Pain Goals Assessment Summary Pt is a 74 y/o female seen by this PT in April of 2024. At that time, she reported NWB LLE after fractures and surgeries. She presents back to ED after ED visit earlier last week after fall and increased pain. She has no new changes in right foot, pelvis or LLE per diagnostics and Dr. Carpio's note on 02/04/25. Per pt and Dr. Carpio's note, it appears that recommendation is for pt to return to [facility] surgeon to follow-up about delayed healing and non- union of distal left femoral fracture. She has healing left superior and inferior pubic rami fractures and a remote right inferior pubic ramus injury. She has multiple areas of scraps and right foot bruising from recent fall. There are no new injuries in right foot per diagnostics. Dr. Carpio's note refers to a right post-op shoe but pt does not report this or have in the ED. Pt lives at home with significant other and she has assistance for bed baths and dressing and usually transfers herself to the left to [facility]. She has been non- ambulatory up to 2 years and her reports are unclear. Pt is I with bed mobility and transfer is deferred today d/t high c/o pain and no need for or transfer location at eval time. She and her son would like for her to d/c to SNF to get stronger. PT is concerned about the one year delay in her following up with the [facility] surgeon given this similar presentation in April of 2024 in the notes. Goals Transfer Goal Independent Other Goals Pt will perform SPT to the right and left with I maintaining NWB LLE. Days to Meet Goals 5 Frequency of Treatment Frequency Of Once a Day Treatment Treatment Plan Physical Therapy Bed Mobility Training,Transfer Training,Therapeutic Treatment Plan Exercise,Balance Retraining,Discharge Planning,Hot or Cold Pack,Neuromuscular Re-ed Precautions Other Precautions Per pt, NWB LLE Weight Bearing Status Weight Bearing Non-Weight Bearing Status Allowed Weight LLE Bearing Amount ( enter % or #) (%) Recommendations To Nursing Amount of Assist 2 Person Assist Needed Discharge Recommendations PT Discharge Home with 11/03 Assist Available,Home Health,SNF Rehab, Recommendations Home vs SNF Transportation Needs Private Vehicle,Wheelchair/Cabulance at Discharge - PT assist x1-2
--- NOTE | 2025-02-14 11:27 | CM.SWNOTE ---
Patient is a 74 yo female who was admitted to [place] ED 02/13/25 for GLF and pain control issues. Pt has [facility] and [facility] for insurance and her PCP is Dr. Ricardo Cantu. EMR was reviewed. Per ED RN, pt without any new fxs but complex medical hx with multiple fxs and surgeries and Ortho Consulted a few days ago on 02/04/25 and well know to Ortho Surgeon and recommending follow up with [facility] who completed pt's most recent surgeries on her fxs with poor healing and non union. Pt mostly w/c bound and has not been ambulatory since at least Apr 2024. Per previous SW notes from Apr 2024 and current staff notes, pt resides in [place] with her Sig Other [place] who provides some assist but not physical lifting and has [facility] 5 days a week for 5 hrs a day for hygiene and showers and personal care. Pt last admited in Apr 2024 and was able to d/c home with Sig Other and [facility] and addy Phillips referral at the time. Per PT, pt somewhat below baseline in transfers and ADLs and recommending SNF vs home with increased assist pending progress. Per RN, pt and son wanting SNF for some rehab and pain management. SW contacted [facility] admissions as they are contracted with pt's insurance and reviewed and willing to submit for [facility] auth but unclear if they will consider pt skillable and auth SNF but [facility] will submit auth request today 02/14. Pt has PCP appointment already scheduled in 3 days on 02/17/[address] Cantu. SW updated RN and ED MD and inquired since Ortho Consult on 02/04/25 [address] pt going back to [facility] where she initially had the tibia and femur fx repair and now non union slow healing any chance of hospital transfer?? Unlikely as this more of an outpt f/u and scheduling. In agreement that SNF rehab attempt could be beneficial for discharge planning. Will updated ED once insurance reviews for SNF auth and makes their determination. JANET Pruitt
--- NOTE | 2025-02-14 18:15 | PC.NURSE ---
Informed pt to avoid skin breakdown the external female catheter should be removed for a period of time. Pt declined and stated she needed it. Pericare performed; new external female catheter (purwick) applied. No skin breakdown noted at this time.
--- NOTE | 2025-02-14 18:17 | PC.NURSE ---
Pt reports pain on right breast where skin abrasion is noted and right hip. Pt notes generalized pain and states she takes narcotics all the time to help with pain management. Pt educated on risk of constipation with narcotics; pt states she has never had a problem with bowel movement. Stating last BM was yesterday and normal, not hard. Bruising noted to right foot. Pt states her significant other and son are unable to care for her.
--- NOTE | 2025-02-14 18:19 | PC.NURSE ---
Persistent weakness; pt able to move in bed with little assistance. GCS 15.
--- NOTE | 2025-02-14 22:10 | PC.NURSE ---
Pt declining SCD's at this time. Pt educated on importance of DVT prophylaxis, pt verbalizes understanding, states, I'm taking the lovenox and those are aggravating. Pt declined to reposition at this time. Pt educated on importance of frequent repositioning to prevent skin breakdown. Pt verbalizes understanding.
[2025-02-14] MEDS: MIRTAZAPINE 15 MG TABLET PO (23:04)
--- NOTE | 2025-02-15 00:22 | PC.NURSE ---
Mepilex dressing applied to sacrum. Redness noted to sacral bony prominences. Blanchable.
--- NOTE | 2025-02-15 00:28 | PC.NURSE ---
Pt continues to decline SCD's despite DVT prophylaxis prevention education. Sleeves removed from legs.
[2025-02-15] MEDS: ATORVASTATIN 20 MG TABLET 40 MG PO (08:21)
[2025-02-15] MEDS: ASPIRIN EC 81 MG TABLET PO (08:22)
[2025-02-15] MEDS: METOPROLOL IR 25 MG TABLET PO (08:22)
[2025-02-15] MEDS: OXYCODONE IR 5 MG TABLET 10 MG PO ×2 (08:22→14:03)
[2025-02-15] MEDS: ENOXAPARIN 100 MG/ML SYRINGE 50 MG SUBCUT (08:24)
[2025-02-15 08:25] VITALS: BP 157/83; PULSE 96; O2SAT 99
[2025-02-15 08:30] VITALS: BP 157/83; PULSE 97; TEMP 36.7; O2SAT 98
--- NOTE | 2025-02-15 08:55 | PC.NURSE ---
Assumed care of pt at 0700. A&Ox4. Given breakfast tray from dietary and AM meds. C/o 6/10 pain in right hip. Assisted pt with AM ADLs.
--- NOTE | 2025-02-15 12:55 | CM.SWNOTE ---
Addendum entered by JANET Champagne 02/15/25 16:18: Discharge Plans Addendum: Per [facility], requested a [id number] consult with ED Provider before final decision for SNF Rehab authorization. It was reported after [id number] that pt did not meet criteria for SNF Rehab and they could not authorize SNF Rehab. ED REVENUE STAMP CUTTER notified [facility] Admissions of above, cancelled referral. ED REVENUE STAMP CUTTER entered room, discussed results of [id number]. REVENUE STAMP CUTTER queried pt of preferences, pt states she did not want to discuss a predatory animal exterminator care plan at this time and would prefer to discharge home if cannot go to a SNF. Pt states her significant other can transport her home when medically cleared. [facility] - Pt states she has an alloted 5 hours per day for 5 days a week for private caregiver through the [facility] program, she states she has not been able to have consistent care due to staffing issues. She could not remember her site acquisition manager name. REVENUE STAMP CUTTER called [facility] office on and it was identified that pt's site acquisition manager is Deborah Reeves (ph# [phone]), left a message and hoped to discuss pt being at risk for more falls if allotted care hours cannot be met. Discussed with pt to advocate for this as well, provided director of casework departmentfrozen food department manager information. Home Health - Pt has a hx of [facility]. Pt agreeable to home health referral again. REVENUE STAMP CUTTER sent initial referral via secure email to [facility] who states they can most likely start care on 02/16 or 02/17. Signed MD order uploaded to chart. Primary Care - Pt states she is established with a PCP at [facility] but is requesting to be seen by a MD not a PA. Pt states she has not seen Dr. Cantu for sometime. REVENUE STAMP CUTTER called [facility] and confirmed that pt has been transferred to Dr. Antonio Pedro and will be seen on 03/03/25 (soonest available). REVENUE STAMP CUTTER sent clinicals from ED visit to their office for reference, added note of pt request for pain management referral. ED REVENUE STAMP CUTTER reviewed above discharge plans/referrals with pt and provided printed sheet with all contact information, pt verbalized understanding of plan. ED REVENUE STAMP CUTTER discussed with ED Provider, who is agreeable to plan. States she will send prescription for pain medication until pt can see PCP on 03/03/25. Plan: Anticipating dc home with partner to transport in POV. Pt will follow up with [facility] and PCP. MARIKA Bates Original Note: ED REVENUE STAMP CUTTER DCP Continued: Reviewed EMR and team rounds for pt?s medical status. Per RN, pt awaiting SNF placement at [facility] for nonhealing fracture after a fall. Per ED Provider, Ortho consult on 02/04/25 states pt would benefit from surgery at [facility] but is not a candidate for surgery at this time - would benefit from SNF Rehab in the meantime. ED REVENUE STAMP CUTTER calls [facility] Admissions who noted that an authorization request has been placed with pt's [facility] Medicare insurance and pending a decision; possible [id number] consult to follow. No other clinicals needed at this time. Plan: Pending insurance authorization for SNF Rehab, anticipating a possible [id number] consult for final decision. ED Staff will continue to follow for coordination of discharge plans. MARIKA Bates
[2025-02-15 14:06] VITALS: PULSE 94
[2025-02-15 14:07] VITALS: BP 129/74; PULSE 92; O2SAT 98
[2025-02-15 14:09] VITALS: BP 129/74; PULSE 92; RESP 16; O2SAT 98
--- NOTE | 2025-02-15 16:07 | PC.NURSE ---
Assisted pt with changing into clothes and gave new clean pull-up brief. Pt transferred to wheelchair with one person assist and gait belt. A&Ox4. Gait belt, Purse, phone and all personal belongings placed in belongings bag and given to pt.
== END 2025-02-15 16:13 | disposition home or self-care (01) ==
PROVIDERS: Family Medicine; Emergency Provider Student in an Organized Health Care Education/Training Program; PCP Internal Medicine
DX: M25.551 Pain in right hip (principal); M25.511 Pain in right shoulder; R07.81 Pleurodynia; R10.2 Pelvic and perineal pain; M79.671 Pain in right foot; W07.XXXA Fall from chair, initial encounter
CPT/HCPCS: 36415; 71100; 72170; 73030; 73630; 80053; 82550; 84484; 85025; 93005; 93010; 96372; 96374; 97161; 99284; J1650; J2270

== ENCOUNTER 2025-02-28 18:44 | Inpatient (IN) | payer MEDICARE, MEDICAID, SELFPAY ==
[2022-07-22 07:16] VITALS: RESP 28
[2022-07-22 14:33] VITALS: PULSE 127; RESP 38; O2SAT 100
[2025-02-14 09:54] VITALS: BMI 20.4
[2025-02-28] VITALS (12 sets, daily range): BP systolic 143–191; BP diastolic 73–99; PULSE 91–133; RESP 13–23; TEMP 36.8; O2SAT 99–100; BMI 20.1
--- NOTE | 2025-02-28 18:49 | ED.WEAKNESS ---
HPI - Weakness General Chief complaint: Weakness Stated complaint: Weakness History of Present Illness HPI Narrative: 74-year-old female history of hypertension, dyslipidemia, CKD, CVA, chronic low back pain, osteoporosis presents with multiple bouts of watery runny diarrhea all week long and then this morning had a few bouts of nonbilious nonbloody nausea and vomiting unable to hold anything down along with abdominal cramps and back pain. She denies fever, chills, chest pain, shortness of breath, cough, runny nose, sore throat, rash or recent antibiotic use. Other than what is stated 14 point review of system is negative. Related Data Home Medications ?Medication ?Instructions ?Recorded ?Confirmed bisacodyl 10 mg rectal suppository 10 mg KS DAILY PRN Constipation 08/21/22 11/03/24 (Dulcolax (bisacodyl)) Held on 08/28/24. Instructions: GI Bleed aspirin 81 mg tablet,delayed 81 mg PO DAILY 04/13/24 11/03/24 release (Adult Aspirin Regimen) Held on 08/28/24. Instructions: GI Bleed acetaminophen 325 mg capsule 650 mg PO BID PRN Pain 11/03/24 11/16/24 cholecalciferol (vitamin D3) 50 50 mcg PO DAILY 11/03/24 11/16/24 mcg (2,000 unit) capsule lidocaine 4 % topical patch 1 patch topical DAILY PRN pain 11/03/24 11/16/24 mirtazapine 15 mg tablet 15 mg PO BEDTIME 11/03/24 11/16/24 vit,calcium 27-ferrous 1 tab PO DAILY 11/03/24 11/16/24 fum 60 mg iron-folic acid 1 mg tablet (Trinatal Rx 1) thiamine mononitrate (vit B1) 100 100 mg PO DAILY 11/03/24 11/16/24 mg tablet Previous Rx's ?Medication ?Instructions ?Recorded food supplemt, lactose-reduced 1 ea PO TID #5,688 mL 11/20/23 0.05 gram-1.5 kcal/mL oral liquid (Ensure Plus) diclofenac sodium 1 % topical gel 2 g topical 4XD PRN pain #100 grams 07/27/24 Held on 08/28/24. Instructions: GI Bleed ferrous sulfate 325 mg (65 mg 325 mg PO DAILY #30 tabs 08/28/24 iron) tablet (FeroSul) pantoprazole 40 mg tablet,delayed 40 mg PO DAILY #90 tabs 09/23/24 release (Protonix) trazodone 50 mg tablet See Rx Instructions PO BEDTIME PRN 10/06/24 insomnia #60 tabs atorvastatin 40 mg tablet 40 mg PO DAILY #90 tabs 11/20/24 metoprolol tartrate 25 mg tablet 25 mg PO BID #180 tabs 02/03/25 oxycodone 10 mg tablet 10 mg PO Q6H pain #70 tabs 02/15/25 Allergies Allergy/AdvReac Type Severity Reaction Status Date / Time furosemide (From Lasix) Allergy Intermediate Rash Verified 02/28/25 18:50 tramadol (TRAMADOL) Allergy Unknown Verified 02/28/25 18:50 amitriptyline (AMITRIPTYLINE) AdvReac Intermediate Confusion Verified 02/28/25 18:50 duloxetine AdvReac Intermediate GI distress Verified 02/28/25 18:50 cyclobenzaprine AdvReac Dizziness Verified 02/28/25 18:50 Review of Systems Review of Systems ROS Unobtainable: All systems reviewed & are unremarkable except as noted in HPI and below Patient History Medical History Family history of colon cancer in father Closed fracture of left distal femur Immunodeficiency due to conditions classified elsewhere Age-related osteoporosis without current pathological fracture History of vertebral compression fracture GERD without esophagitis Primary osteoarthritis involving multiple joints Chronic low back pain Stage 3b chronic kidney disease (CKD) Mixed hyperlipidemia Essential hypertension Cerebrovascular disease Coronary artery disease Recurrent UTI Displaced comminuted fracture of shaft of tibia Septic shock Left rib fracture Closed left clavicular fracture Iron (Fe) deficiency anemia Nephrolithiasis Peptic ulcer disease History of osteomyelitis Fracture, tibia Left foot drop Numbness and tingling HLD (hyperlipidemia) C. difficile colitis Colitis Anxiety Insomnia Arthritis DJD (degenerative joint disease) Depression Fibromyalgia Migraines Multiple fractures Osteoporosis Radius fracture (08/30/17) Neuropathy History of recurrent UTIs Renal disease Hypertension Chronic pain GI bleeding Surgical History Hx of kyphoplasty (07/28/19) Hx of kyphoplasty (04/28/19) Hx of kyphoplasty (~2013) Hx of elbow surgery Hx of appendectomy Hx of cholecystectomy Status post epidural steroid injection (03/25/19) H/O: hysterectomy Hx of tonsillectomy History of surgery Family History Mother No known health problems COPD (chronic obstructive pulmonary disease) Father No known health problems Social History household members: significant other and caregiver Smoking Status: Former smoker alcohol intake: current tobacco type: vaping alcohol intake frequency: holidays/special occasions only Exam Narrative Exam Narrative: GENERAL: [74] year old patient appears stated age. Well-developed patient, in mild distress. HEAD: Atraumatic. Normocephalic. EYES: Pupils equal round and reactive. Extraocular motions intact. No scleral icterus. No injection or drainage. NECK: Trachea midline. Non tender CARDIOVASCULAR: Tachycardic Regular rate and rhythm without murmurs, gallops, or rubs. RESPIRATORY: Clear to auscultation. Breath sounds equal bilaterally. No wheezes, rales, or rhonchi. GASTROINTESTINAL: Abdomen soft, non-tender, nondistended. EXTREMITIES: No edema or joint tenderness. BACK: Nontender without deformity or crepitance. No flank tenderness. NEURO: AOx3. SKIN: No rash or erythema of visible areas Initial Vital Signs Initial Vital Signs: Vital Signs Temperature 98.2 F 02/28/25 18:50 Pulse Rate 132 H 02/28/25 18:50 Respiratory Rate 16 02/28/25 18:50 Blood Pressure 143/99 H 02/28/25 18:50 Pulse Oximetry 100 02/28/25 18:50 Oxygen Delivery Method Room Air 02/28/25 18:50 Course Orders Ordered: ED Orders 02/28/25 18:53 EKG-12 Lead Stat 02/28/25 19:04 CT abdomen pelvis w con Stat XR chest 1V Stat RT Consult Eval and Treat NOW 02/28/25 19:35 Complete Blood Count AUTO DIFF Stat Comprehensive Metabolic Panel Stat Covid-19 + FLU A/B + RSV - PCR Stat Lactate (Lactic Acid) Stat Lipase Stat PTT Partial Thromboplastin Robert Stat Procalcitonin Stat Prothrombin Time INR Stat Troponin I Stat 02/28/25 19:45 Blood Culture Stat Ondansetron HCl (Ondansetron 4 Mg/2 Ml Inj) 4 mg IV NOW PRN PRN Reason: Nausea And Vomiting Ondansetron HCl (Ondansetron 4 Mg Odt) 4 mg PO NOW PRN PRN Reason: Nausea And Vomiting Discontinued Medications Lactated Ringer's (Lactated Ringers) 1,000 mls @ 1,000 mls/hr IV BOLUS ONE Stop: 02/28/25 20:03 Last Infusion: 02/28/25 21:03 Dose: Infused Documented By: Infusion: 02/28/25 20:04 Dose: 1,000 mls/hr Documented By: Infusion: 02/28/25 19:48 Dose: 0 mls/hr Documented By: Admin: 02/28/25 19:21 Dose: 1,000 mls/hr Documented By: Lactated Ringer's (Lactated Ringers) 1,000 mls @ 1,000 mls/hr IV BOLUS ONE Stop: 02/28/25 20:04 Last Infusion: 02/28/25 20:03 Dose: 1,000 mls/hr Documented By: Infusion: 02/28/25 19:48 Dose: 0 mls/hr Documented By: Admin: 02/28/25 19:22 Dose: 1,000 mls/hr Documented By: Morphine Sulfate (Morphine 4 Mg/Ml Inj) 4 mg IV NOW ONE Stop: 02/28/25 20:45 Last Admin: 02/28/25 20:55 Dose: 4 mg Documented By: AALIYAH Vital Signs Vital signs: Vital Signs - 8 hr 02/28/25 18:50 02/28/25 18:50 02/28/25 19:00 Temperature 98.2 F Pulse Rate 132 H 133 H 133 H Respiratory Rate 16 18 18 Blood Pressure 143/99 H Pulse Oximetry 100 100 100 Oxygen Delivery Method Room Air 02/28/25 19:30 02/28/25 20:00 02/28/25 20:02 Temperature Pulse Rate 128 H 123 H Respiratory Rate 14 23 Blood Pressure 181/88 H Pulse Oximetry 100 100 Oxygen Delivery Method 02/28/25 20:02 Temperature Pulse Rate 122 H Respiratory Rate 16 Blood Pressure Pulse Oximetry 99 Oxygen Delivery Method MDM - Weakness Lab Data 02/28/25 19:35 02/28/25 19:35 Labs: Lab Results 02/28/25 Range/Units 19:35 WBC 15.7 H (4.5-11.0) X10^3/uL RBC 3.30 L (4.0-5.2) X10^6/uL Hgb 10.9 L (12.0-16.0) g/dL Hct 32.9 L (36-46) % MCV 99.9 (80-100) fL MCH 33.2 (26-34) PG MCHC 33.3 (30-36) % RDW 18.1 H (11.6-14.8) % Plt Count 925 H* (150-400) X10^3/uL Neut % (Auto) Not Reportable Lymph % (Auto) Not Reportable Castro % (Auto) Not Reportable Eos % (Auto) Not Reportable Baso % (Auto) Not Reportable Lymph # (Auto) Not Reportable Castro # (Auto) Not Reportable Baso # (Auto) Not Reportable Total Counted 100 Seg Neutrophils % 90.0 H (38-70) % Lymphocytes % (Manual) 6.0 L (25-45) % Monocytes % (Manual) 3.0 (2-11) % Metamyelocytes % 1.0 H (-0) % Neutrophils # (Manual) 48196 H (2681-8973) /uL Platelet Estimate Increased on smear RBC Morphology See below Anisocytosis 1+ H Microcytosis 1+ H PT 22.3 H (9.4-12.5) SECONDS INR 2.0 H (0.9-1.3) APTT 30 (25.1-36.5) SECONDS Sodium 135 L (137-145) mmol/L Potassium 4.0 (3.4-5.1) mmol/L Chloride 110 H (98-107) mmol/L Carbon Dioxide < 5 L* (22-32) mmol/L BUN 20 H (7-17) mg/dL Creatinine 1.02 (0.52-1.04) mg/dL Estimated GFR 58 L (>60) mL/min BUN/Creatinine Ratio 19.6 (6-22) Glucose 96 (70-99) mg/dL Lactate 1.9 (0.7-2.1) mmol/L Calcium 8.8 (8.4-10.2) mg/dL Total Bilirubin 0.9 (0.2-1.3) mg/dL AST 1290 H (14-36) IU/L ALT 280 H (<35) IU/L Alkaline Phosphatase 395 H (38-126) U/L Troponin I < 0.012 (0.01-0.034) ng/mL Total Protein 8.1 (6.3-8.2) g/dL Albumin 4.0 (3.5-5.0) g/dL Globulin 4.1 (1.7-4.1) g/dL Albumin/Globulin Ratio 1.0 (1.0-2.8) Lipase 366 H (23-300) U/L Procalcitonin 202 H (<0.5) ng/mL SARS-CoV-2 (PCR) Negative (Negative) Influenza A (RT-PCR) Flu a negative (NEGATIVE) Influenza B (RT-PCR) Flu b negative (NEGATIVE) RSV (PCR) Negative (Negative) Imaging Data Chest x-ray: Radiologist Impression: [address] [address] XRay Report Signed Patient: Emani Leiva MR#: [id number] : 1950 Acct:[id number] Age/Sex: 74 / F Date of Service: 02/28/25 Loc: ED Accession Number: [id number] Procedure: XR chest 1V Ordering Provider: Ty Ba D.O. PROCEDURE: XR CHEST 1V INDICATIONS: suspected sepsis TECHNIQUE: One view of the chest was acquired. COMPARISON: [facility], CR, XR CHEST 1V, 03/08/2024, 20:26. [facility], CR, XR CHEST 1V, 03/03/2023, 2:51. FINDINGS: Surgical changes and devices: Prior vertebroplasty. Lungs and pleura: Lungs are clear. No pleural effusions or pneumothorax. Mediastinum: Mediastinal contours appear normal. Heart size is normal. Bones and chest wall: No suspicious bony lesions. Prior right-sided rib fractures. Overlying soft tissues appear unremarkable. IMPRESSION: No acute cardiopulmonary abnormality is seen. CT scan - abdomen/pelvis: Radiologist Impression: [address] [address] [address] Scan Report Signed Patient: Emani Leiva MR#: [id number] : 1950 Acct:[id number] Age/Sex: 74 / F Date of Service: 02/28/25 Loc: ED Accession Number: [id number] Procedure: CT abdomen pelvis w con Ordering Provider: Ty Ba D.O. PROCEDURE: CT ABDOMEN PELVIS W CON INDICATIONS: abd pain /n/v/d TECHNIQUE: After the administration of intravenous contrast, axial sections acquired from the lung bases to the pubic symphysis. Coronal and sagittal reformats were performed. For radiation dose reduction, the following was used: automated exposure control, adjustment of mA and/or kV according to patient size. COMPARISON: [facility], CT, CT KIDNEY URETER BLADDER (KUB), 04/29/2024, 15:01. [facility], CT, CT ABDOMEN PELVIS W CON, 03/03/2023, 2:57. FINDINGS: Image quality: Prominent motion is present limiting areas fine detail evaluation. Lower Chest: No significant findings. ABDOMEN: Liver: No solid mass. Gallbladder: Removed. Biliary ducts: No biliary dilation. Pancreas: No ductal dilation. Spleen: Size is within normal limits. Adrenal Glands: No adrenal nodules. Kidneys and Ureters: No hydronephrosis. Markedly asymmetric atrophic kidney with prominent areas of calcification unchanged. Stomach and Bowel: Bowel loops are poorly evaluated secondary to motion. No gross obstruction or inflammation. Peritoneum: No abnormal intraperitoneal fluid. No free air. Ventral Wall: No significant ventral hernia. Abdominal Nodes: No retroperitoneal or mesenteric adenopathy by size criteria. Vessels: Aorta and inferior vena cava are normal in size. PELVIS: Pelvic Organs: Unremarkable. Bladder: No bladder wall thickening, accounting for underdistention. Pelvic Nodes: No enlarged lymph nodes. Miscellaneous: No inguinal hernias are seen. Bones: No aggressive osseous abnormality. Multilevel L2 through L5 compression deformities with postsurgical changes consistent with vertebral/kyphoplasty. T11 and L1 compression deformities are stable. IMPRESSION: Limited exam secondary to significant motion. Bowel gas pattern is grossly nonobstructive without gross inflammatory change. ECG Data Interpretation: Sinus Tach with PVC HR 133 KS 132 QRS [address]-t wave change Change from 02/13/25 [facility] Narrative Medical decision making narrative: Vital signs, nurse triage note, medication list, previous ER visits, and all imaging study removed. CT abdomen and pelvis showed bowel gas pattern grossly nonobstructive without gross inflammatory change. Limited. exam secondary to significant motion. Chest x-ray showed no acute process. WBC 15.7 with left shift. Hemoglobin 10.9. Platelet 925. INR 2.0. Sodium 135 potassium 4.0 chloride 110 CO2 less than 5 BUN 20 1.02 lactic acid 1.9 AST 12 90 ALT 280 phos 395 troponin 1st set normal lipase 366 procalcitonin to 202. Differential diagnosis includes small-bowel obstruction, constipation, viral gastroenteritis, dehydration, electrolyte derangement, sepsis, uti, Case discussed with Dr. Carty who has graciously accepted the patient for inpatient admission. Discharge Plan Departure Prescriptions: No Action Ensure Plus 0.05 gram- 1.5 kcal/mL liquid 1 ea PO TID Qty: 5688 6RF Rx Instructions: Chocolate flavor is requested. diclofenac sodium 1 % gel 2 g topical 4XD PRN (Reason: pain) Qty: 100 0RF pantoprazole [Protonix] 40 mg tablet,delayed release (DR/EC) 40 mg PO DAILY Qty: 90 3RF atorvastatin 40 mg tablet 40 mg PO DAILY Qty: 90 2RF metoprolol tartrate 25 mg tablet 25 mg PO BID Qty: 180 1RF Rx Instructions: Take 1 Tablet PO BID bisacodyl [Dulcolax (bisacodyl)] 10 mg suppository 10 mg KS DAILY PRN (Reason: Constipation) Patient Comments: no longer takes ferrous sulfate [FeroSul] 325 mg (65 mg iron) tablet 325 mg PO DAILY Qty: 30 0RF mirtazapine 15 mg tablet 15 mg PO BEDTIME Patient Comments: Pt reports taking 1 tablets at bedtime. lidocaine 4 % adhesive patch,medicated 1 patch topical DAILY PRN (Reason: pain) Patient Comments: Pt reports taking 1 patch to right knee PRN for pain. thiamine mononitrate (vit B1) 100 mg tablet 100 mg PO DAILY Patient Comments: Pt reports taking 1 tablet (100mg) total daily. cholecalciferol (vitamin D3) 50 mcg (2,000 unit) capsule 50 mcg PO DAILY Patient Comments: Patient reports taking 1 capsule daily. acetaminophen 325 mg capsule 650 mg PO BID PRN (Reason: Pain) Patient Comments: Patient reports taking 2 tablets (1000mg) in the morning and 1 tablet (500mg) in the evening before bedtime for pain. Rx Instructions: Take 2 tablets (650mg) PO BID PRN for pain. Trinatal Rx 1 60 mg iron-1 mg tablet 1 tab PO DAILY Rx Instructions: 1 tablet PO Daily WM aspirin [Adult Aspirin Regimen] 81 mg tablet,delayed release (DR/EC) 81 mg PO DAILY trazodone 50 mg tablet See Rx Instructions PO BEDTIME PRN (Reason: insomnia) Qty: 60 5RF Rx Instructions: 1-2 tablets nightly as needed for sleep oxycodone 10 mg tablet 10 mg PO Q6H Qty: 70 0RF Referrals: Edil Crouch PA-C [Primary Care Provider, Medical]
--- NOTE | 2025-02-28 18:57 | EKG_ITS ---
[place] [id number] [place] [id number] Test Date: 2025-02-28 Pat Name: Emani Leiva Department: Room: Gender: Female Snorkelling Instructor: VANESSA : 1950 Requested By: Order Number: [id number] Reading MD: Master Bernabe Measurements Intervals [place] Rate: 133 P: -7 SD: 132 QRS: 102 QRSD: 70 T: 17 QT: 296 QTc: 440 Interpretive Statements Sinus tachycardia with premature supraventricular complexes Rightward axis Nonspecific ST abnormality Electronically Signed On 03-03-2025 13:41:54 PDT by Master Bernabe
--- NOTE | 2025-02-28 19:04 | DI.CT.S_ITS ---
PROCEDURE: CT ABDOMEN PELVIS W CON INDICATIONS: abd pain /n/v/d TECHNIQUE: After the administration of intravenous contrast, axial sections acquired from the lung bases to the pubic symphysis. Coronal and sagittal reformats were performed. For radiation dose reduction, the following was used: automated exposure control, adjustment of mA and/or kV according to patient size. COMPARISON: [facility], CT, CT KIDNEY URETER BLADDER (KUB), 04/29/2024, 15:01. [facility], CT, CT ABDOMEN PELVIS W CON, 03/03/2023, 2:57. FINDINGS: Image quality: Prominent motion is present limiting areas fine detail evaluation. Lower Chest: No significant findings. ABDOMEN: Liver: No solid mass. Gallbladder: Removed. Biliary ducts: No biliary dilation. Pancreas: No ductal dilation. Spleen: Size is within normal limits. Adrenal Glands: No adrenal nodules. Kidneys and Ureters: No hydronephrosis. Markedly asymmetric atrophic kidney with prominent areas of calcification unchanged. Stomach and Bowel: Bowel loops are poorly evaluated secondary to motion. No gross obstruction or inflammation. Peritoneum: No abnormal intraperitoneal fluid. No free air. Ventral Wall: No significant ventral hernia. Abdominal Nodes: No retroperitoneal or mesenteric adenopathy by size criteria. Vessels: Aorta and inferior vena cava are normal in size. PELVIS: Pelvic Organs: Unremarkable. Bladder: No bladder wall thickening, accounting for underdistention. Pelvic Nodes: No enlarged lymph nodes. Miscellaneous: No inguinal hernias are seen. Bones: No aggressive osseous abnormality. Multilevel L2 through L5 compression deformities with postsurgical changes consistent with vertebral/kyphoplasty. T11 and L1 compression deformities are stable. IMPRESSION: Limited exam secondary to significant motion. Bowel gas pattern is grossly nonobstructive without gross inflammatory change. Dictated by: Nikia Nolasco M.D. on 02/28/2025 at 20:16 Approved by: Nikia Nolasco M.D. on 02/28/2025 at 20:19
--- NOTE | 2025-02-28 19:04 | DI.RAD.S_ITS ---
PROCEDURE: XR CHEST 1V INDICATIONS: suspected sepsis TECHNIQUE: One view of the chest was acquired. COMPARISON: [facility], CR, XR CHEST 1V, 03/08/2024, 20:26. [facility], CR, XR CHEST 1V, 03/03/2023, 2:51. FINDINGS: Surgical changes and devices: Prior vertebroplasty. Lungs and pleura: Lungs are clear. No pleural effusions or pneumothorax. Mediastinum: Mediastinal contours appear normal. Heart size is normal. Bones and chest wall: No suspicious bony lesions. Prior right-sided rib fractures. Overlying soft tissues appear unremarkable. IMPRESSION: No acute cardiopulmonary abnormality is seen. Dictated by: Heath Scales M.D. on 02/28/2025 at 18:31 Approved by: Heath Scales M.D. on 02/28/2025 at 18:32
--- NOTE | 2025-02-28 19:15 | PC.NURSE ---
pt states she fell about a week ago and has been going down hill fast since, pt states she has not been able to eat and has had n/v/d, appears to feel unwell, skin warm and dry, sclera pink, resp even and unlabored
[2025-02-28] MEDS: LACTATED RINGERS 1,000 ML 1000 ML IV ×2 (19:21→19:22)
--- NOTE | 2025-02-28 19:49 | PC.NURSE ---
to CT per stretcher
[2025-02-28 19:53] LABS: Hematocrit 32.9 % (36-46); Hemoglobin 10.9 g/dL (12.0-16.0); Mean Corpuscular HGB Conc 33.3 % (30-36); Mean Corpuscular Hemoglobin 33.2 PG (26-34); Mean Corpuscular Volume 99.9 fL (80-100)
[2025-02-28 19:58] LABS: INR 2.0 (0.9-1.3); Prothrombin Time 22.3 SECONDS (9.4-12.5)
[2025-02-28 20:00] LABS: PTT Partial Thromboplastin Tim 30 SECONDS (25.1-36.5)
[2025-02-28 20:01] LABS: Lactate (Lactic Acid) 1.9 mmol/L (0.7-2.1); Platelet Count 925 X10^3/uL (150-400)
[2025-02-28 20:02] LABS: Add Manual Diff / Slide Review YES; Alanine Aminotransferase 280 IU/L (<35); Albumin 4.0 g/dL (3.5-5.0); Albumin Globulin Ratio 1.0 (1.0-2.8); Alkaline Phosphatase 395 U/L (38-126); Blood Urea Nitrogen 20 mg/dL (7-17); Calcium 8.8 mg/dL (8.4-10.2); Chloride 110 mmol/L (98-107); Estimated Glomerular Filt Rate 58 mL/min (>60); Globulin 4.1 g/dL (1.7-4.1); Glucose 96 mg/dL (70-99); Lipase 366 U/L (23-300); Potassium 4.0 mmol/L (3.4-5.1); Sodium 135 mmol/L (137-145); Total Protein 8.1 g/dL (6.3-8.2)
[2025-02-28 20:10] LABS: HEMOLYSIS 55 (0-50)
[2025-02-28 20:14] LABS: Carbon Dioxide < 5 mmol/L (22-32); Troponin I < 0.012 ng/mL (0.01-0.034)
[2025-02-28 20:23] LABS: Anisocytosis 1+; Lymphocytes Percent Manual 6.0 % (25-45); Metamyelocytes Percent 1.0 % (-0); Monocytes Percent Manual 3.0 % (2-11); Neutrophils Absolute Manual 14130 /uL (3000-5900); Segmented Neutrophils Percent 90.0 % (38-70); Total Cells Counted 100
[2025-02-28 20:24] LABS: Microcytosis 1+
[2025-02-28 20:26] LABS: Influenza A - CEPHEID Flu A NEGATIVE (NEGATIVE); Influenza B - CEPHEID Flu B NEGATIVE (NEGATIVE)
[2025-02-28 20:37] LABS: COVID-19 CEPHEID 4-PLEX PCR Negative (Negative)
[2025-02-28 20:44] LABS: Procalcitonin 202 ng/mL (<0.5)
[2025-02-28] MEDS: MORPHINE 4 MG/ML INJ IV (20:55)
[2025-02-28] MEDS: LACTATED RINGERS 1,000 ML 150 ML IV (23:29)
[2025-02-28 23:38] LABS: Culture Indicated Urine Specimen Cultured
[2025-03-01] VITALS (23 sets, daily range): BP systolic 101–170; BP diastolic 48–84; PULSE 78–100; RESP 11–20; TEMP 35.7–36; O2SAT 95–100; BMI 20.1
--- NOTE | 2025-03-01 00:31 | PM.HP.1 ---
History of Present Illness History of Present Illness Date Patient Seen: 03/01/25 Time Patient Seen: 00:32 Chief complaint: Weakness Narrative: The pt is a 74 yo who presents to the Er due to diarrha which she states has been present for the past week after she states she had a UTI but never went to a health care provider for this. She states that yesterday she developed vomiting with nausea thus she called EMS. The pt is normally bedbound or wheelchair bound for the past 2 years for unknown reasons. There has been no fevres, chills, hemetemesis, melana, abd pain, vertigo, prior to vomiting, there was no change in PO intake. She has not been on antibiotics in the past month. [facility] Medical History Family history of colon cancer in father Closed fracture of left distal femur Immunodeficiency due to conditions classified elsewhere Age-related osteoporosis without current pathological fracture History of vertebral compression fracture GERD without esophagitis Primary osteoarthritis involving multiple joints Chronic low back pain Stage 3b chronic kidney disease (CKD) Mixed hyperlipidemia Essential hypertension Cerebrovascular disease Coronary artery disease Recurrent UTI Displaced comminuted fracture of shaft of tibia Septic shock Left rib fracture Closed left clavicular fracture Iron (Fe) deficiency anemia Nephrolithiasis Peptic ulcer disease History of osteomyelitis Fracture, tibia Left foot drop Numbness and tingling HLD (hyperlipidemia) C. difficile colitis Colitis Anxiety Insomnia Arthritis DJD (degenerative joint disease) Depression Fibromyalgia Migraines Multiple fractures Osteoporosis Radius fracture (08/30/17) Neuropathy History of recurrent UTIs Renal disease Hypertension Chronic pain GI bleeding Surgical History Hx of kyphoplasty (07/28/19) Hx of kyphoplasty (04/28/19) Hx of kyphoplasty (~2013) Hx of elbow surgery Hx of appendectomy Hx of cholecystectomy Status post epidural steroid injection (03/25/19) H/O: hysterectomy Hx of tonsillectomy History of surgery Family History Mother No known health problems COPD (chronic obstructive pulmonary disease) Father No known health problems Social History household members: significant other and caregiver Smoking Status: Former smoker alcohol intake: current Meds Home Medications and Allergies Home Medications ?Medication ?Instructions ?Recorded ?Confirmed ?Type bisacodyl 10 mg rectal suppository 10 mg UT DAILY PRN Constipation 08/21/22 11/03/24 History (Dulcolax (bisacodyl)) Held on 08/28/24. Instructions: GI Bleed food supplemt, lactose-reduced 1 ea PO TID #5,688 mL 11/20/23 11/16/24 Rx 0.05 gram-1.5 kcal/mL oral liquid (Ensure Plus) aspirin 81 mg tablet,delayed 81 mg PO DAILY 04/13/24 11/03/24 History release (Adult Aspirin Regimen) Held on 08/28/24. Instructions: GI Bleed diclofenac sodium 1 % topical gel 2 g topical 4XD PRN pain #100 grams 07/27/24 11/03/24 Rx Held on 08/28/24. Instructions: GI Bleed ferrous sulfate 325 mg (65 mg 325 mg PO DAILY #30 tabs 08/28/24 11/16/24 Rx iron) tablet (FeroSul) pantoprazole 40 mg tablet,delayed 40 mg PO DAILY #90 tabs 09/23/24 11/16/24 Rx release (Protonix) trazodone 50 mg tablet See Rx Instructions PO BEDTIME PRN 10/06/24 11/16/24 Rx insomnia #60 tabs acetaminophen 325 mg capsule 650 mg PO BID PRN Pain 11/03/24 11/16/24 History cholecalciferol (vitamin D3) 50 50 mcg PO DAILY 11/03/24 11/16/24 History mcg (2,000 unit) capsule lidocaine 4 % topical patch 1 patch topical DAILY PRN pain 11/03/24 11/16/24 History mirtazapine 15 mg tablet 15 mg PO BEDTIME 11/03/24 11/16/24 History vit,calcium 27-ferrous 1 tab PO DAILY 11/03/24 11/16/24 History fum 60 mg iron-folic acid 1 mg tablet (Trinatal Rx 1) thiamine mononitrate (vit B1) 100 100 mg PO DAILY 11/03/24 11/16/24 History mg tablet atorvastatin 40 mg tablet 40 mg PO DAILY #90 tabs 11/20/24 Rx metoprolol tartrate 25 mg tablet 25 mg PO BID #180 tabs 02/03/25 Rx oxycodone 10 mg tablet 10 mg PO Q6H pain #70 tabs 02/15/25 Rx Allergies Allergy/AdvReac Type Severity Reaction Status Date / Time furosemide (From Lasix) Allergy Intermediate Rash Verified 02/28/25 18:50 tramadol (TRAMADOL) Allergy Unknown Verified 02/28/25 18:50 amitriptyline (AMITRIPTYLINE) AdvReac Intermediate Confusion Verified 02/28/25 18:50 duloxetine AdvReac Intermediate GI distress Verified 02/28/25 18:50 cyclobenzaprine AdvReac Dizziness Verified 02/28/25 18:50 Exam Vital Signs (past 8 hours): - 02/28/25 18:50 02/28/25 18:50 02/28/25 19:00 Temperature 98.2 F Pulse Rate 132 H 133 H 133 H Respiratory Rate 16 18 18 Blood Pressure 143/99 H Pulse Oximetry 100 100 100 Oxygen Delivery Method Room Air 02/28/25 19:30 02/28/25 20:00 02/28/25 20:02 Temperature Pulse Rate 128 H 123 H Respiratory Rate 14 23 Blood Pressure 181/88 H Pulse Oximetry 100 100 Oxygen Delivery Method 02/28/25 20:02 Temperature Pulse Rate 122 H Respiratory Rate 16 Blood Pressure Pulse Oximetry 99 Oxygen Delivery Method Oxygen Delivery Method Room Air Const General: cooperative, healthy appearing and comfortable Resp Auscultation: clear to auscultation bilaterally Cardio Rate: regular rate Rhythm: regular rhythm GI Auscultation: normal bowel sounds Objective Labs 02/28/25 19:35 02/28/25 19:35 Labs: Laboratory Results - last 24 hr 02/28/25 02/28/25 19:35 22:23 WBC 15.7 H RBC 3.30 L Hgb 10.9 L Hct 32.9 L MCV 99.9 MCH 33.2 MCHC 33.3 RDW 18.1 H Plt Count 925 H* Neut % (Auto) Not Reportable Lymph % (Auto) Not Reportable [place] % (Auto) Not Reportable Eos % (Auto) Not Reportable Baso % (Auto) Not Reportable Lymph # (Auto) Not Reportable [place] # (Auto) Not Reportable Baso # (Auto) Not Reportable Total Counted 100 Seg Neutrophils % 90.0 H Lymphocytes % (Manual) 6.0 L Monocytes % (Manual) 3.0 Metamyelocytes % 1.0 H Neutrophils # (Manual) 66132 H Platelet Estimate Increased on smear RBC Morphology See below Anisocytosis 1+ H Microcytosis 1+ H PT 22.3 H INR 2.0 H APTT 30 Sodium 135 L Potassium 4.0 Chloride 110 H Carbon Dioxide < 5 L* BUN 20 H Creatinine 1.02 Estimated GFR 58 L BUN/Creatinine Ratio 19.6 Glucose 96 Lactate 1.9 Calcium 8.8 Total Bilirubin 0.9 AST 1290 H ALT 280 H Alkaline Phosphatase 395 H Troponin I < 0.012 Total Protein 8.1 Albumin 4.0 Globulin 4.1 Albumin/Globulin Ratio 1.0 Lipase 366 H Procalcitonin 202 H Urine RBC None seen Urine WBC 5-10/hpf H Ur Squamous Epith Cells 0-1 /hpf Urine Bacteria Many (>30) H Ur Culture Indicated? Specimen cultured Vol Urine Centrifuged 10ml (spun) SARS-CoV-2 (PCR) Negative Influenza A (RT-PCR) Flu a negative Influenza B (RT-PCR) Flu b negative RSV (PCR) Negative Assessment & Plan Assessment & Plan narrative: I have reviewed the pt's labd, imaging, and presenting symptoms with the ER provider and agree with the decision for admission. I have personnally reviewed the labs showing a WBC of 15, plt of 925, and hgb of 10.9. 1. Metabolic acidosis- the pt's CO2 is <5, and was given 3 liters in the ER for fluid bolus, will also give one liter of NaCO3 IV, recheck labs in am, most likely related to the diarrhea, continue with antiemetics, and supportive, care, no UTI present on admission, stool studies pending, including C diff 2. thrombocytosis- uknown significance, continues to monitor 3. anemia- chronic 4. debility/ weakness- consider PT/oT, bed bound status makes the dirrhea more complicated. Time-Based Coding :: [TOTAL MINUTES] spent with patient and on the chart (including review of chart, obtaining history, exam, reviewing outside data, placing orders, documenting exam and treatment plan, and counseling patient) on [DATE].
[2025-03-01] MEDS: SODIUM BICARB 8.4% VIAL 100 MEQ in DEXTROSE 5% WATER 1,000 ML 150 MEQ IV (01:12)
[2025-03-01] MEDS: OXYCODONE IR 10 MG TABLET PO ×4 (01:27→22:36)
[2025-03-01] MEDS: ACETAMINOPHEN 325 MG TABLET 650 MG PO (01:54)
--- NOTE | 2025-03-01 03:10 | PC.NURSE ---
pt placed on hospital bed for comfort, warm blanket given and light dimmed
[2025-03-01 06:11] LABS: Add Manual Diff / Slide Review NO; Hematocrit 31.7 % (36-46); Hemoglobin 10.4 g/dL (12.0-16.0); Lymphocytes Absolute Auto 3900 /uL (1100-4500); Mean Corpuscular HGB Conc 32.8 % (30-36); Mean Corpuscular Hemoglobin 32.6 PG (26-34); Mean Corpuscular Volume 99.5 fL (80-100); Platelet Count 809 X10^3/uL (150-400)
[2025-03-01 06:22] LABS: Alanine Aminotransferase 576 IU/L (<35); Albumin 3.1 g/dL (3.5-5.0); Albumin Globulin Ratio 0.9 (1.0-2.8); Alkaline Phosphatase 413 U/L (38-126); Blood Urea Nitrogen 17 mg/dL (7-17); Calcium 8.4 mg/dL (8.4-10.2); Chloride 107 mmol/L (98-107); Estimated Glomerular Filt Rate > 60 mL/min (>60); Globulin 3.4 g/dL (1.7-4.1); Glucose 128 mg/dL (70-99); Potassium 3.7 mmol/L (3.4-5.1); Sodium 135 mmol/L (137-145); Total Protein 6.5 g/dL (6.3-8.2)
[2025-03-01 06:28] LABS: HEMOLYSIS 28 (0-50)
[2025-03-01 06:42] LABS: Carbon Dioxide 8 mmol/L (22-32)
[2025-03-01 06:50] LABS: Anisocytosis 1+; Microcytosis 1+
--- NOTE | 2025-03-01 07:04 | PC.NURSE ---
attempted to call hospitalist for critical results of AST 2067 and CO2 8 no answer
--- NOTE | 2025-03-01 07:20 | PC.NURSE ---
Dr Shafer informed of pt's critical lab results
[2025-03-01 07:52] LABS: Base Excess VBG -13.7 mmol/L (0-4); HCO3 VBG 11 mmol/L (24-28); Oxygen Saturation VBG 85 % (70-75); PCO2 VBG 20.7 mmHg (45-50); PO2 VBG 53 mmHg (35-45); Total CO2 VBG 10 mmol/L (24-29); pH VBG 7.32 (7.33-7.43)
[2025-03-01 08:00] LABS: Ethanol (ETOH) < 10 mg/dL (<10)
[2025-03-01 08:07] LABS: Acetaminophen 63 ug/mL (10-30)
[2025-03-01 08:08] LABS: Ethanol (ETOH) < 10 mg/dL (<10)
[2025-03-01 08:10] LABS: Acetaminophen 108 ug/mL (10-30)
[2025-03-01] MEDS: ACETYLCYSTEINE IV ×3 (08:43→14:41)
[2025-03-01] MEDS: WATER IV ×3 (08:43→14:41)
[2025-03-01] MEDS: DEXTROSE 5% IV ×3 (08:43→14:41)
--- NOTE | 2025-03-01 09:31 | PC.NURSE ---
Patient arrived from ER to room 225 approx 925am in a bed. Oriented to room and call light. Call light placed within reach. Patient states she is currently bedbound at this time due to her back pain and her neuropathy in both her feet. Bed alarm activated for safety.
--- NOTE | 2025-03-01 10:21 | PC.NURSE ---
Addendum entered by Mg Jeronimo R.N. 03/01/25 11:16: Once activated charcoal shown to patient she states she can not drink it until her pain in her back is better managed. She states I will try to after I have pain medications Dr Shafer informed, oxycodone 5mg x 1 ordered. Patient states she usually requires 10-15mg of oxycodone but is willing to try it. Continue to follow. Original Note: 2nd bag of acetylcysteine and activated charcoal delivered from pharmacy, see MAR. Patient agreeable to try drinking activated charcoal as ordered. Patient alert sitting upright in bed, talking on her cell phone.
[2025-03-01] MEDS: OXYCODONE IR 5 MG TABLET PO (11:20)
[2025-03-01] MEDS: METOPROLOL IR 25 MG TABLET PO ×2 (11:20→22:28)
[2025-03-01] MEDS: PANTOPRAZOLE DR 40 MG TABLET PO (11:20)
[2025-03-01] MEDS: FOMEPIZOLE IV (13:23)
[2025-03-01] MEDS: SODIUM CHLORIDE 0.9% IV (13:23)
[2025-03-01] MEDS: ONDANSETRON 4 MG/2 ML INJ IV ×2 (13:34→22:31)
--- NOTE | 2025-03-01 13:37 | PC.WOUNDPHOT ---
Wound Photos Photo #3 was taken at 1242 and photo #4 at 1245.
[2025-03-01] MEDS: SODIUM CHLORIDE 0.9% 1,000 ML 100 ML IV (14:14)
--- NOTE | 2025-03-01 15:18 | PC.NURSE ---
Patient reported right hip wound that she had obtained about 2 weeks ago during a fall. Dressing from home removed, area cleansed with sterile saline and gauze, wound photo taken, and mepilex foam gentle border dressing applied.
--- NOTE | 2025-03-01 17:04 | PC.NURSE ---
Late entry for this morning 03/01 approx 12 noon. This RN spoke with Reza at [place] [facility] [phone]. They recommend treatment with fomepizole with loading dose; repeat LFT's, acetaminophen level, and INR in 12 hours from last lab check; and to check salicylate level. These rec's send to Dr. Shafer, along with [place] [facility] phone number for questions.
--- NOTE | 2025-03-01 17:23 | PM.HP.1 ---
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 In the discharge instructions she was advised not to drink alcohol as her blood alcohol was 180 at that time and not to take acetaminophen. Patient presents Presents to the emergency room 02/28 with generalized weakness nausea vomiting and diarrhea. Findings in the emergency department significant for transaminase elevation with AST at 1290 acetaminophen level of 103. Patient denies drinking alcohol but in his to taking acetaminophen throughout the day Patient was started on the rescue protocol with intravenous acetylcysteine and Fomepizole upon recommendations and assistance from the poison control Center Review of systems: Patient is not cogent or able to participate in the review of systems Physical exam: Markedly encephalopathic elderly female confused and disoriented HEENT unremarkable Heart rate and rhythm regular Lungs clear Abdomen distended with shifting dullness 3+ lower extremity edema Asterixis on exam Objective laboratory and imaging data please see bottom of the note Assessment and plan: Accidental overdose of acetaminophen with hepatotoxicity noncompliance with the instructions take acetaminophen suspect due to patient's dementia acetylcysteine and Fomepizole and activated charcoal Serial liver enzymes Serial acetaminophen levels Leukocytosis nausea and vomiting possible infectious versus noninfectious etiology GI film panel Empiric ceftriaxone Repeat CBC in a.m. 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 May need placement DVT prophylaxis: Risks exceeding benefits of pharmacologic DVT prophylaxis due to hepatic failure Code status: Full code [facility] Medical History Family history of colon cancer in father Closed fracture of left distal femur Immunodeficiency due to conditions classified elsewhere Age-related osteoporosis without current pathological fracture History of vertebral compression fracture GERD without esophagitis Primary osteoarthritis involving multiple joints Chronic low back pain Stage 3b chronic kidney disease (CKD) Mixed hyperlipidemia Essential hypertension Cerebrovascular disease Coronary artery disease Recurrent UTI Displaced comminuted fracture of shaft of tibia Septic shock Left rib fracture Closed left clavicular fracture Iron (Fe) deficiency anemia Nephrolithiasis Peptic ulcer disease History of osteomyelitis Fracture, tibia Left foot drop Numbness and tingling HLD (hyperlipidemia) C. difficile colitis Colitis Anxiety Insomnia Arthritis DJD (degenerative joint disease) Depression Fibromyalgia Migraines Multiple fractures Osteoporosis Radius fracture (08/30/17) Neuropathy History of recurrent UTIs Renal disease Hypertension Chronic pain GI bleeding Surgical History Hx of kyphoplasty (07/28/19) Hx of kyphoplasty (04/28/19) Hx of kyphoplasty (~2013) Hx of elbow surgery Hx of appendectomy Hx of cholecystectomy Status post epidural steroid injection (03/25/19) H/O: hysterectomy Hx of tonsillectomy History of surgery Family History Mother No known health problems COPD (chronic obstructive pulmonary disease) Father No known health problems Social History household members: significant other and caregiver Smoking Status: Former smoker alcohol intake: current Meds Home Medications and Allergies Home Medications ?Medication ?Instructions ?Recorded ?Confirmed ?Type food supplemt, lactose-reduced 1 ea PO TID #5,688 mL 11/20/23 03/01/25 Rx 0.05 gram-1.5 kcal/mL oral liquid (Ensure Plus) aspirin 81 mg tablet,delayed 81 mg PO DAILY 04/13/24 03/01/25 History release (Adult Aspirin Regimen) Held on 08/28/24. Instructions: GI Bleed diclofenac sodium 1 % topical gel 2 g topical 4XD PRN pain #100 grams 07/27/24 03/01/25 Rx Held on 08/28/24. Instructions: GI Bleed ferrous sulfate 325 mg (65 mg 325 mg PO DAILY #30 tabs 08/28/24 03/01/25 Rx iron) tablet (FeroSul) pantoprazole 40 mg tablet,delayed 40 mg PO DAILY #90 tabs 09/23/24 03/01/25 Rx release (Protonix) trazodone 50 mg tablet See Rx Instructions PO BEDTIME PRN 10/06/24 03/01/25 Rx insomnia #60 tabs acetaminophen 325 mg capsule 650 mg PO BID PRN Pain 11/03/24 03/01/25 History thiamine mononitrate (vit B1) 100 100 mg PO DAILY 11/03/24 03/01/25 History mg tablet atorvastatin 40 mg tablet 40 mg PO DAILY #90 tabs 11/20/24 03/01/25 Rx metoprolol tartrate 25 mg tablet 25 mg PO BID #180 tabs 02/03/25 03/01/25 Rx Allergies Allergy/AdvReac Type Severity Reaction Status Date / Time furosemide (From Lasix) Allergy Intermediate Rash Verified 02/28/25 18:50 tramadol (TRAMADOL) Allergy Unknown Verified 02/28/25 18:50 amitriptyline (AMITRIPTYLINE) AdvReac Intermediate Confusion Verified 02/28/25 18:50 duloxetine AdvReac Intermediate GI distress Verified 02/28/25 18:50 cyclobenzaprine AdvReac Dizziness Verified 02/28/25 18:50 Exam Vital Signs (past 8 hours): - 03/01/25 09:30 03/01/25 09:34 03/01/25 16:46 Temperature 96.8 F L 96.2 F L Pulse Rate 91 H 78 Respiratory Rate 20 15 Blood Pressure 127/67 101/48 L Pulse Oximetry 100 99 Oxygen Delivery Method Room Air Oxygen Flow Rate 0 Oxygen Delivery Method Room Air Oxygen Flow Rate 0 Objective Labs 03/01/25 05:33 03/01/25 05:33 Labs: Laboratory Results - last 24 hr 02/28/25 02/28/25 03/01/25 19:35 22:23 05:33 WBC 15.7 H 22.4 H RBC 3.30 L 3.18 L Hgb 10.9 L 10.4 L Hct 32.9 L 31.7 L MCV 99.9 99.5 MCH 33.2 32.6 MCHC 33.3 32.8 RDW 18.1 H 18.3 H Plt Count 925 H* 809 H Neut % (Auto) Not Reportable 78.9 H Lymph % (Auto) Not Reportable 17.3 L [place] % (Auto) Not Reportable 3.1 Eos % (Auto) Not Reportable 0.3 L Baso % (Auto) Not Reportable 0.4 Neut # (Auto) 53774 H Lymph # (Auto) Not Reportable 3900 [place] # (Auto) Not Reportable 700 Eos # (Auto) 100 Baso # (Auto) Not Reportable 100 Total Counted 100 Seg Neutrophils % 90.0 H Lymphocytes % (Manual) 6.0 L Monocytes % (Manual) 3.0 Metamyelocytes % 1.0 H Neutrophils # (Manual) 99310 H Platelet Estimate Increased on smear Increased on smear RBC Morphology See below See below Anisocytosis 1+ H 1+ H Microcytosis 1+ H 1+ H PT 22.3 H INR 2.0 H APTT 30 VBG pH VBG pCO2 VBG pO2 VBG HCO3 VBG Total CO2 VBG O2 Saturation VBG Base Excess Sodium 135 L 135 L Potassium 4.0 3.7 Chloride 110 H 107 Carbon Dioxide < 5 L* 8 L* BUN 20 H 17 Creatinine 1.02 0.94 Estimated GFR 58 L > 60 BUN/Creatinine Ratio 19.6 18.1 Glucose 96 128 H Lactate 1.9 Calcium 8.8 8.4 Total Bilirubin 0.9 1.0 AST 1290 H 2068 H ALT 280 H 576 H Alkaline Phosphatase 395 H 413 H Troponin I < 0.012 Total Protein 8.1 6.5 Albumin 4.0 3.1 L Globulin 4.1 3.4 Albumin/Globulin Ratio 1.0 0.9 L Lipase 366 H Procalcitonin 202 H Urine RBC None seen Urine WBC 5-10/hpf H Ur Squamous Epith Cells 0-1 /hpf Urine Bacteria Many (>30) H Ur Culture Indicated? Specimen cultured Vol Urine Centrifuged 10ml (spun) Acetaminophen 108 H* Ethyl Alcohol < 10 SARS-CoV-2 (PCR) Negative Influenza A (RT-PCR) Flu a negative Influenza B (RT-PCR) Flu b negative RSV (PCR) Negative 03/01/25 03/01/25 03/01/25 07:37 07:39 07:49 WBC RBC Hgb Hct MCV MCH MCHC RDW Plt Count Neut % (Auto) Lymph % (Auto) [place] % (Auto) Eos % (Auto) Baso % (Auto) Neut # (Auto) Lymph # (Auto) [place] # (Auto) Eos # (Auto) Baso # (Auto) Total Counted Seg Neutrophils % Lymphocytes % (Manual) Monocytes % (Manual) Metamyelocytes % Neutrophils # (Manual) Platelet Estimate RBC Morphology Anisocytosis Microcytosis PT INR APTT VBG pH 7.32 L VBG pCO2 20.7 L VBG pO2 53 H VBG HCO3 11 L VBG Total CO2 10 L VBG O2 Saturation 85 H VBG Base Excess -13.7 L Sodium Potassium Chloride Carbon Dioxide BUN Creatinine Estimated GFR BUN/Creatinine Ratio Glucose Lactate Calcium Total Bilirubin AST ALT Alkaline Phosphatase Troponin I Total Protein Albumin Globulin Albumin/Globulin Ratio Lipase Procalcitonin Urine RBC Urine WBC Ur Squamous Epith Cells Urine Bacteria Ur Culture Indicated? Vol Urine Centrifuged Acetaminophen 63 H* Ethyl Alcohol < 10 SARS-CoV-2 (PCR) Influenza A (RT-PCR) Influenza B (RT-PCR) RSV (PCR) Assessment & Plan Time-Based Coding :: 75 minutes spent with patient and on the chart (including review of chart, obtaining history, exam, reviewing outside data, placing orders, documenting exam and treatment plan, and counseling patient). Quality VTE Deep Vein Thrombosis/Pulmonary Embolism Present on Admission: No
[2025-03-01 18:08] LABS: Albumin 2.6 g/dL (3.5-5.0); Albumin Globulin Ratio 0.8 (1.0-2.8); Alkaline Phosphatase 138 U/L (38-126); Blood Urea Nitrogen 16 mg/dL (7-17); Calcium 7.7 mg/dL (8.4-10.2); Chloride 102 mmol/L (98-107); Estimated Glomerular Filt Rate > 60 mL/min (>60); Globulin 3.1 g/dL (1.7-4.1); Glucose 136 mg/dL (70-99); Potassium 3.0 mmol/L (3.4-5.1); Sodium 130 mmol/L (137-145); Total Protein 5.7 g/dL (6.3-8.2)
[2025-03-01 18:15] LABS: HEMOLYSIS 20 (0-50)
[2025-03-01 18:34] LABS: Acetaminophen 29 ug/mL (10-30)
[2025-03-01 18:35] LABS: Alanine Aminotransferase 837 IU/L (<35)
[2025-03-01 18:40] LABS: Carbon Dioxide 9 mmol/L (22-32)
--- NOTE | 2025-03-01 18:55 | PC.NURSE ---
Notified by lab of critical lab value of co2 at 9. Dr. Shafer notified of this result along with sodium, potassium, and liver enzymes. Only new order at this time is for IV potassium 20meq replacement. WIll continue to monitor. Patient is sleeping in bed at this time.
[2025-03-01] MEDS: POTASSIUM CHLORIDE IN WATER 10 MEQ/100 ML PIGGYBACK 100 MEQ IV (19:06)
[2025-03-02] MEDS: OXYCODONE IR 10 MG TABLET PO ×7 (01:37→23:00)
[2025-03-02 02:58] LABS: Acetaminophen 17 ug/mL (10-30); Salicylate < 1.0 mg/dL (<20)
[2025-03-02 03:00] VITALS: BP 104/59; PULSE 75; RESP 20; TEMP 36.1; O2SAT 97
[2025-03-02 03:17] LABS: Alanine Aminotransferase 1134 IU/L (<35)
[2025-03-02 04:38] LABS: Prothrombin Time 52.6 SECONDS (9.4-12.5)
[2025-03-02 04:42] LABS: Albumin 2.6 g/dL (3.5-5.0); Albumin Globulin Ratio 0.8 (1.0-2.8); Alkaline Phosphatase 349 U/L (38-126); Blood Urea Nitrogen 17 mg/dL (7-17); Calcium 7.7 mg/dL (8.4-10.2); Chloride 99 mmol/L (98-107); Estimated Glomerular Filt Rate 51 mL/min (>60); Globulin 3.2 g/dL (1.7-4.1); Glucose 120 mg/dL (70-99); HEMOLYSIS < 15 (0-50); Potassium 3.2 mmol/L (3.4-5.1); Sodium 128 mmol/L (137-145); Total Protein 5.8 g/dL (6.3-8.2)
[2025-03-02 04:48] LABS: INR 4.8 (0.9-1.3)
[2025-03-02 04:57] LABS: Acetaminophen 14 ug/mL (10-30)
[2025-03-02 05:17] LABS: Alanine Aminotransferase 1126 IU/L (<35)
[2025-03-02 05:20] LABS: Carbon Dioxide 9 mmol/L (22-32)
[2025-03-02] MEDS: POTASSIUM CHLORIDE IN WATER 10 MEQ/100 ML PIGGYBACK 100 MEQ IV (05:57)
[2025-03-02] MEDS: ONDANSETRON 4 MG/2 ML INJ IV ×3 (06:01→18:28)
[2025-03-02] MEDS: PANTOPRAZOLE DR 40 MG TABLET PO (06:03)
[2025-03-02] MEDS: SODIUM CHLORIDE 0.9% 1,000 ML 100 ML IV ×3 (06:58→23:00)
[2025-03-02 07:00] VITALS: BP 121/68; PULSE 80; RESP 18; TEMP 35.8; O2SAT 97
--- NOTE | 2025-03-02 07:40 | PC.NURSE ---
0400: security shift manager note: Received call from poison control, discussed patients labs. Per Percy, patient should not receive the second dose of Fomepizole IV if the Tylenol is WNL on repeat. Fomepizole held and Dr. Cooper made aware of poison control recommendation and plan. Acetylcysteine to continue until AST/ALT is decreased half from peak and INR under 2 (per poison control) Pharmacist and hospitalist aware in am. Dr. Cooper made aware of resulting labs IV sites x 2 compromised, ED nurse obtained site via US guided. Resumed K ryders 10 meq x 2 until completion. C/O back pain, Oxycodone 10 mg administered as ordered with adequate relief. X 2 episodes of emesis and nausea this shift, Zofran PRN given. Refusing SCDs Call appropriately for staff assist
[2025-03-02] MEDS: THIAMINE 200 MG in SODIUM CHLORIDE 0.9% 100 ML 408 MG IV (08:14)
[2025-03-02 08:30] LABS: Hematocrit 29.5 % (36-46); Hemoglobin 9.7 g/dL (12.0-16.0); Mean Corpuscular HGB Conc 33.0 % (30-36); Mean Corpuscular Hemoglobin 32.6 PG (26-34); Mean Corpuscular Volume 99.0 fL (80-100); Platelet Count 708 X10^3/uL (150-400)
[2025-03-02 09:44] LABS: Acetaminophen 11 ug/mL (10-30)
[2025-03-02] MEDS: METOPROLOL IR 25 MG TABLET PO ×2 (09:45→23:05)
[2025-03-02] MEDS: PHYTONADIONE (VIT K1) 5 MG TABLET 10 MG PO (09:45)
[2025-03-02 10:50] LABS: Lymphocytes Percent Manual 9.0 % (25-45); Neutrophils Absolute Manual 23023 /uL (3000-5900); Segmented Neutrophils Percent 91.0 % (38-70); Total Cells Counted 100
[2025-03-02 11:01] LABS: Anisocytosis 1+; Burr Cells 3+; Macrocytosis 1+; Poikilocytosis 3+
[2025-03-02 12:19] VITALS: BP 129/67; PULSE 77; RESP 16; TEMP 35.8; O2SAT 99
[2025-03-02] MEDS: ACETYLCYSTEINE IV (13:26)
[2025-03-02] MEDS: DEXTROSE 5% IV (13:26)
[2025-03-02] MEDS: WATER IV (13:26)
[2025-03-02 16:00] VITALS: BP 121/70; PULSE 77; RESP 18; O2SAT 97
[2025-03-02 16:39] LABS: INR 3.6 (0.9-1.3); Prothrombin Time 40.0 SECONDS (9.4-12.5)
[2025-03-02 16:42] LABS: PTT Partial Thromboplastin Tim 33 SECONDS (25.1-36.5)
[2025-03-02 16:48] LABS: Albumin 2.5 g/dL (3.5-5.0); Albumin Globulin Ratio 0.8 (1.0-2.8); Alkaline Phosphatase 371 U/L (38-126); Blood Urea Nitrogen 18 mg/dL (7-17); Calcium 7.6 mg/dL (8.4-10.2); Carbon Dioxide 10 mmol/L (22-32); Chloride 100 mmol/L (98-107); Estimated Glomerular Filt Rate 40 mL/min (>60); Globulin 3.0 g/dL (1.7-4.1); Glucose 104 mg/dL (70-99); HEMOLYSIS 17 (0-50); Potassium 3.5 mmol/L (3.4-5.1); Sodium 126 mmol/L (137-145); Total Protein 5.5 g/dL (6.3-8.2)
[2025-03-02 17:10] LABS: Alanine Aminotransferase 1052 IU/L (<35)
--- NOTE | 2025-03-02 17:47 | P.PN_ITS ---
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 In the discharge instructions she was advised not to drink alcohol as her blood alcohol was 180 at that time and not to take acetaminophen. Patient presents Presents to the emergency room 02/28 with generalized weakness nausea vomiting and diarrhea. Findings in the emergency department significant for transaminase elevation with AST at 1290 acetaminophen level of 103. Patient denies drinking alcohol but in his to taking acetaminophen throughout the day Patient was started on the rescue protocol with intravenous acetylcysteine and Fomepizole upon recommendations and assistance from the poison control Center Hospital course: 03/02: Patient's trend absence transaminases have escalated to a fastigiuml of 3442 and de-escalated to 2393 with rescue treatment of acetylcysteine and for omeprazole and activated charcoal. PT INR has also peaked at 4.8 and has de- escalated to 3.9 patient is hyponatremic Review of systems: Occasional nausea and occasional vomiting No chest pain palpitations shortness for breath No abdominal pain no paresthesia or paresis Physical exam: Alert cogent and oriented HEENT unremarkable Heart rate and rhythm regular Lungs clear Abdomen distended with shifting dullness 3+ lower extremity edema No Asterixis on exam Objective laboratory and imaging data please see bottom of the note Assessment and plan: Accidental overdose of acetaminophen with hepatotoxicity noncompliance with the instructions take acetaminophen suspect due to patient's dementia * acetylcysteine continue and Fomepizole is completed and activated charcoal given * Serial liver enzymes have peaked and are deescalating but total bilirubin never escalated * Serial acetaminophen levels have de-escalated from 103 down to 11 Leukocytosis nausea and vomiting possible infectious versus noninfectious etiology white count 43425 * GI film panel * Empiric ceftriaxone * Repeat CBC daily Alcohol use disorder noncompliant with abstinence and misapprehended negative responses to questions * Currently no signs of withdrawal * Intravenous thiamine for prophylaxis against Wernicke-Korsakoff syndrome 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 * May need placement * Multifactorial interventions may have improve this patient's cognition DVT prophylaxis: * Risks exceeding benefits of pharmacologic DVT prophylaxis due to hepatic failure Code status: * Full code blue 55 minutes were spent in the management of this patient Exam Vital Signs (past 8 hours): - 03/02/25 12:19 03/02/25 16:00 Temperature 96.4 F L Pulse Rate 77 77 Respiratory Rate 16 18 Blood Pressure 129/67 121/70 Pulse Oximetry 99 97 Oxygen Delivery Method Room Air Oxygen Flow Rate 0 Objective Labs 03/02/25 04:05 03/02/25 15:40 Labs: Laboratory Results - last 24 hr 03/01/25 03/02/25 03/02/25 17:31 02:00 04:00 WBC RBC Hgb Hct MCV MCH MCHC RDW Plt Count Total Counted Seg Neutrophils % Lymphocytes % (Manual) Neutrophils # (Manual) Platelet Estimate RBC Morphology Poikilocytosis Anisocytosis Macrocytosis [place] Cells PT 52.6 H D INR 4.8 H* APTT Sodium 130 L Potassium 3.0 L Chloride 102 Carbon Dioxide 9 L* BUN 16 Creatinine 0.85 Estimated GFR > 60 BUN/Creatinine Ratio 18.8 Glucose 136 H Calcium 7.7 L Total Bilirubin 1.0 AST 2823 H 3596 H ALT 837 H 1134 H Alkaline Phosphatase 138 H D Total Protein 5.7 L Albumin 2.6 L Globulin 3.1 Albumin/Globulin Ratio 0.8 L Salicylates < 1.0 Acetaminophen 29 17 03/02/25 03/02/25 03/02/25 04:05 09:20 15:40 WBC 25.3 H RBC 2.98 L Hgb 9.7 L Hct 29.5 L MCV 99.0 MCH 32.6 MCHC 33.0 RDW 18.7 H Plt Count 708 H Total Counted 100 Seg Neutrophils % 91.0 H Lymphocytes % (Manual) 9.0 L Neutrophils # (Manual) 78876 H Platelet Estimate Incr RBC Morphology See below Poikilocytosis 3+ H Anisocytosis 1+ H Macrocytosis 1+ H [place] Cells 3+ H PT 40.0 H D INR 3.6 H APTT 33 Sodium 128 L 126 L Potassium 3.2 L 3.5 Chloride 99 100 Carbon Dioxide 9 L* 10 L BUN 17 18 H Creatinine 1.13 H 1.39 H Estimated GFR 51 L 40 L BUN/Creatinine Ratio 15.0 12.9 Glucose 120 H 104 H Calcium 7.7 L 7.6 L Total Bilirubin 1.0 0.9 AST 3442 H 2393 H ALT 1126 H 1052 H Alkaline Phosphatase 349 H D 371 H Total Protein 5.8 L 5.5 L Albumin 2.6 L 2.5 L Globulin 3.2 3.0 Albumin/Globulin Ratio 0.8 L 0.8 L Salicylates Acetaminophen 14 11 PFSH Medical History Family history of colon cancer in father Closed fracture of left distal femur Immunodeficiency due to conditions classified elsewhere Age-related osteoporosis without current pathological fracture History of vertebral compression fracture GERD without esophagitis Primary osteoarthritis involving multiple joints Chronic low back pain Stage 3b chronic kidney disease (CKD) Mixed hyperlipidemia Essential hypertension Cerebrovascular disease Coronary artery disease Recurrent UTI Displaced comminuted fracture of shaft of tibia Septic shock Left rib fracture Closed left clavicular fracture Iron (Fe) deficiency anemia Nephrolithiasis Peptic ulcer disease History of osteomyelitis Fracture, tibia Left foot drop Numbness and tingling HLD (hyperlipidemia) C. difficile colitis Colitis Anxiety Insomnia Arthritis DJD (degenerative joint disease) Depression Fibromyalgia Migraines Multiple fractures Osteoporosis Radius fracture (08/30/17) Neuropathy History of recurrent UTIs Renal disease Hypertension Chronic pain GI bleeding Surgical History Hx of kyphoplasty (07/28/19) Hx of kyphoplasty (04/28/19) Hx of kyphoplasty (~2013) Hx of elbow surgery Hx of appendectomy Hx of cholecystectomy Status post epidural steroid injection (03/25/19) H/O: hysterectomy Hx of tonsillectomy History of surgery Family History Mother No known health problems COPD (chronic obstructive pulmonary disease) Father No known health problems Social History household members: significant other and caregiver Smoking Status: Former smoker alcohol intake: current Assessment & Plan Time-Based Coding :: [TOTAL MINUTES] spent with patient and on the chart (including review of chart, obtaining history, exam, reviewing outside data, placing orders, documenting exam and treatment plan, and counseling patient) on [DATE]. Quality VTE Deep Vein Thrombosis/Pulmonary Embolism Present on Admission: No
[2025-03-02 20:05] VITALS: BP 118/52; PULSE 70; RESP 16; TEMP 36.8; O2SAT 97
[2025-03-03 00:20] VITALS: BP 122/58; PULSE 73; RESP 16; TEMP 36.6; O2SAT 98
[2025-03-03] MEDS: OXYCODONE IR 10 MG TABLET PO ×6 (02:55→21:52)
[2025-03-03 04:00] VITALS: BP 143/65; PULSE 72; RESP 16; TEMP 36.6; O2SAT 96
[2025-03-03 04:52] LABS: Alanine Aminotransferase 743 IU/L (<35); Albumin 2.6 g/dL (3.5-5.0); Albumin Globulin Ratio 0.8 (1.0-2.8); Alkaline Phosphatase 372 U/L (38-126); Blood Urea Nitrogen 20 mg/dL (7-17); Calcium 7.5 mg/dL (8.4-10.2); Carbon Dioxide 12 mmol/L (22-32); Chloride 99 mmol/L (98-107); Estimated Glomerular Filt Rate 43 mL/min (>60); Globulin 3.1 g/dL (1.7-4.1); Glucose 107 mg/dL (70-99); HEMOLYSIS 31 (0-50); Potassium 3.2 mmol/L (3.4-5.1); Sodium 125 mmol/L (137-145); Total Protein 5.7 g/dL (6.3-8.2)
[2025-03-03 05:16] LABS: Acetaminophen < 10 ug/mL (10-30)
[2025-03-03] MEDS: PANTOPRAZOLE DR 40 MG TABLET PO (05:36)
[2025-03-03] MEDS: ONDANSETRON 4 MG/2 ML INJ IV ×5 (05:40→22:01)
[2025-03-03 07:43] LABS: INR 1.8 (0.9-1.3); Prothrombin Time 19.7 SECONDS (9.4-12.5)
[2025-03-03 08:00] VITALS: BP 107/50; PULSE 68; RESP 12; TEMP 36.6; O2SAT 96
[2025-03-03] MEDS: METOPROLOL IR 25 MG TABLET PO ×2 (08:44→21:52)
[2025-03-03] MEDS: PHYTONADIONE (VIT K1) 5 MG TABLET 10 MG PO (08:44)
[2025-03-03] MEDS: POTASSIUM CHLORIDE 20 MEQ TAB 40 MEQ PO (08:45)
--- NOTE | 2025-03-03 09:01 | P.PN_ITS ---
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 In the discharge instructions she was advised not to drink alcohol as her blood alcohol was 180 at that time and not to take acetaminophen. Patient presents Presents to the emergency room 02/28 with generalized weakness nausea vomiting and diarrhea. Findings in the emergency department significant for transaminase elevation with AST at 1290 acetaminophen level of 103. Patient denies drinking alcohol but in his to taking acetaminophen throughout the day Patient was started on the rescue protocol with intravenous acetylcysteine and Fomepizole upon recommendations and assistance from the poison control Center Hospital course: 03/02: Patient's trend absence transaminases have escalated to a fastigiuml of 3442 and de-escalated to 2393 with rescue treatment of acetylcysteine and for omeprazole and activated charcoal. PT INR has also peaked at 4.8 and has de- escalated to 3.9 patient is hyponatremic S: She was improving, she still feels weak. She was somewhat anorexic, and ate about half of her breakfast. She lives in [place] with her significant other. She denies alcohol use. Poison control signed off. Exam Vital Signs (past 8 hours): - 03/03/25 04:00 03/03/25 08:00 Temperature 97.9 F 97.8 F Pulse Rate 72 68 Respiratory Rate 16 12 Blood Pressure 143/65 H 107/50 L Pulse Oximetry 96 96 Oxygen Flow Rate 0 Oxygen Delivery Method Room Air Oxygen Flow Rate 0 Narrative Exam Narrative: NAD, alert and oriented. Fluent speech. Frail. Lungs are clear, normal rate and effort. Heart is regular, no murmur gallop or rub. Abdomen is soft, non distended. Extremities are free of edema. Objective Labs 03/02/25 04:05 03/03/25 04:03 Labs: Laboratory Results - last 24 hr 03/02/25 03/02/25 03/02/25 04:05 09:20 15:40 Total Counted 100 Seg Neutrophils % 91.0 H Lymphocytes % (Manual) 9.0 L Neutrophils # (Manual) 33310 H Platelet Estimate Incr RBC Morphology See below Poikilocytosis 3+ H Anisocytosis 1+ H Macrocytosis 1+ H [place] Cells 3+ H PT 40.0 H D INR 3.6 H APTT 33 Sodium 126 L Potassium 3.5 Chloride 100 Carbon Dioxide 10 L BUN 18 H Creatinine 1.39 H Estimated GFR 40 L BUN/Creatinine Ratio 12.9 Glucose 104 H Calcium 7.6 L Total Bilirubin 0.9 AST 2393 H ALT 1052 H Alkaline Phosphatase 371 H Total Protein 5.5 L Albumin 2.5 L Globulin 3.0 Albumin/Globulin Ratio 0.8 L Acetaminophen 11 03/03/25 03/03/25 04:03 07:24 Total Counted Seg Neutrophils % Lymphocytes % (Manual) Neutrophils # (Manual) Platelet Estimate RBC Morphology Poikilocytosis Anisocytosis Macrocytosis [place] Cells PT 19.7 H D INR 1.8 H APTT Sodium 125 L Potassium 3.2 L Chloride 99 Carbon Dioxide 12 L BUN 20 H Creatinine 1.32 H Estimated GFR 43 L BUN/Creatinine Ratio 15.2 Glucose 107 H Calcium 7.5 L Total Bilirubin 1.1 AST 1322 H ALT 743 H Alkaline Phosphatase 372 H Total Protein 5.7 L Albumin 2.6 L Globulin 3.1 Albumin/Globulin Ratio 0.8 L Acetaminophen < 10 PFSH Medical History Family history of colon cancer in father Closed fracture of left distal femur Immunodeficiency due to conditions classified elsewhere Age-related osteoporosis without current pathological fracture History of vertebral compression fracture GERD without esophagitis Primary osteoarthritis involving multiple joints Chronic low back pain Stage 3b chronic kidney disease (CKD) Mixed hyperlipidemia Essential hypertension Cerebrovascular disease Coronary artery disease Recurrent UTI Displaced comminuted fracture of shaft of tibia Septic shock Left rib fracture Closed left clavicular fracture Iron (Fe) deficiency anemia Nephrolithiasis Peptic ulcer disease History of osteomyelitis Fracture, tibia Left foot drop Numbness and tingling HLD (hyperlipidemia) C. difficile colitis Colitis Anxiety Insomnia Arthritis DJD (degenerative joint disease) Depression Fibromyalgia Migraines Multiple fractures Osteoporosis Radius fracture (08/30/17) Neuropathy History of recurrent UTIs Renal disease Hypertension Chronic pain GI bleeding Surgical History Hx of kyphoplasty (07/28/19) Hx of kyphoplasty (04/28/19) Hx of kyphoplasty (~2013) Hx of elbow surgery Hx of appendectomy Hx of cholecystectomy Status post epidural steroid injection (03/25/19) H/O: hysterectomy Hx of tonsillectomy History of surgery Family History Mother No known health problems COPD (chronic obstructive pulmonary disease) Father No known health problems Social History household members: significant other and caregiver Smoking Status: Former smoker alcohol intake: current Assessment & Plan Assessment & Plan narrative: 1. Accidental overdose of acetaminophen with hepatotoxicity noncompliance with the instructions take acetaminophen suspect due to patient's dementia * acetylcysteine continue and Fomepizole is completed and activated charcoal given * Serial liver enzymes have peaked and are deescalating but total bilirubin never escalated * Serial acetaminophen levels have de-escalated from 103 down to 11 2. Leukocytosis nausea and vomiting possible infectious versus noninfectious etiology white count 71793 * GI film panel * Empiric ceftriaxone * Repeat CBC daily 3. Alcohol use disorder noncompliant with abstinence and misapprehended negative responses to questions * Currently no signs of withdrawal * Intravenous thiamine for prophylaxis against Wernicke-Korsakoff syndrome 4. 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 -out of bed, ambulate. -consider stopping antibiotics day 5. -Monitor WBC. 0 physical therapy evaluation. DVT prophylaxis: * Risks exceeding benefits of pharmacologic DVT prophylaxis due to hepatic failureCode status: * Full code blue Time-Based Coding :: [TOTAL MINUTES] spent with patient and on the chart (including review of chart, obtaining history, exam, reviewing outside data, placing orders, documenting exam and treatment plan, and counseling patient) on [DATE]. Quality VTE Deep Vein Thrombosis/Pulmonary Embolism Present on Admission: No
[2025-03-03] MEDS: THIAMINE 200 MG in SODIUM CHLORIDE 0.9% 100 ML 408 MG IV (09:33)
[2025-03-03 12:00] VITALS: BP 126/59; PULSE 63; RESP 16; TEMP 36.6; O2SAT 98
--- NOTE | 2025-03-03 15:25 | PT.IIE ---
Current Diagnoses Acidosis, unspecified (02/28/25) Surgical History (Last Reviewed 03/03/25 @ 09:01 by Master Bernabe MD) H/O: hysterectomy History of surgery Hx of appendectomy Hx of cholecystectomy Hx of elbow surgery Hx of kyphoplasty (~2013) Hx of kyphoplasty (04/28/19) Hx of kyphoplasty (07/28/19) Hx of tonsillectomy Status post epidural steroid injection (03/25/19) Medical History (Last Reviewed 03/03/25 @ 09:01 by Master Bernabe MD) Age-related osteoporosis without current pathological fracture Anxiety Arthritis C. difficile colitis Cerebrovascular disease Chronic low back pain Chronic pain Closed fracture of left distal femur Closed left clavicular fracture Colitis Coronary artery disease Depression Displaced comminuted fracture of shaft of tibia DJD (degenerative joint disease) Essential hypertension Family history of colon cancer in father Fibromyalgia Fracture, tibia GERD without esophagitis GI bleeding History of osteomyelitis History of recurrent UTIs History of vertebral compression fracture HLD (hyperlipidemia) Hypertension Immunodeficiency due to conditions classified elsewhere Insomnia Iron (Fe) deficiency anemia Left foot drop Left rib fracture Migraines Mixed hyperlipidemia Multiple fractures Nephrolithiasis Neuropathy Numbness and tingling Osteoporosis Peptic ulcer disease Primary osteoarthritis involving multiple joints Radius fracture (08/30/17) Recurrent UTI Renal disease Septic shock Stage 3b chronic kidney disease (CKD) Physical Therapy Inpatient Evaluation/Re-Eval M1 PT/OT-IP Prior Functional Status Start: 03/03/25 16:20 Freq: NEEDED Status: Active Protocol: Document 03/03/25 15:25 AB (Rec: 03/03/25 16:33 AB [id number]) Medical Review Prior Functional Status Medical History Yes Reviewed Communication able to make needs known; with memory issues Mobility and Gait pt stated that she was modified independent with squat pivot transfers without AD w/c<>bed/toilet. pt stated that she mostly stays in bed and only gets up when needed or when she feels well enough to get up. pt stated that she is non-ambulatory for >2years due to previous LE fractures Social History Household Members significant other Living Arrangements House Number of Floors ( One Floor Floors) Number of Stairs To ramp to enter Enter/Railing? Home Environment Standard Height Toilet,Walk in Shower,Ramp Home Equipment Manual Wheelchair,Shower Seat with Backrest,Hand Held Shower,Grab Bars Near Toilet,Grab Bars In Shower Additional Social pt has a caregiver that comes in Mon thru Fri for ~ 5 History Comment hours M2 PT-IP Current Condition Start: 03/03/25 16:20 Freq: NEEDED Status: Active Protocol: Document 03/03/25 15:25 AB (Rec: 03/03/25 16:33 AB [id number]) Physical Therapy Current Condition Current Condition Evaluation Date 03/03/25 Treatment Diagnosis hepatotoxicity; generalized weakness Onset Date 02/28/25 M3 PT-IP Subjective Start: 03/03/25 16:20 Freq: NEEDED Status: Active Protocol: Document 03/03/25 15:25 AB (Rec: 03/03/25 16:33 AB [id number]) Subjective Physical Therapy Visit Type Type Initial Evaluation Visit Start Time 15:25 Visit Stop Time 15:45 Number of CRYSTAL SLICER Visits 0 M4 PT-IP Mobility and Gait Start: 03/03/25 16:20 Freq: NEEDED Status: Active Protocol: Document 03/03/25 15:25 AB (Rec: 03/03/25 16:33 AB [id number]) PT-Bed Mobility Assessment Supine to Sit Supine to Sit Standby Assistance Sit to Supine Sit to Supine Standby Assistance PT-Transfer Assessment Comments Mobility Comments pt in bed and agreed to do PT. obtained PLOF and home set up. pt completed supine to sit SBA and sat on EOB. pt refused to do transfers with PT and stated that she just feels tired and weak and does not want to out of the bed. pt agreed to position in bed and able to partial stand and take side steps towards HOB leaning against EOB for support. completed sit to supine SBA. positioned pt in bed. call light and table placed within reach. 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 Strength Lower Extremity Strength Assessment Bilaterally Impaired Hip 3+/5 Knee 3+/5 Muscle Tone Muscle Tone WNL Yes M6 PT-IP Treatment Start: 03/03/25 16:20 Freq: NEEDED Status: Active Protocol: Document 03/03/25 15:25 AB (Rec: 03/03/25 16:33 AB [id number]) Physical Therapy Treatment Education Education Provided Safety M7 PT-IP Assessment and Plan Start: 03/03/25 16:20 Freq: NEEDED Status: Active Protocol: Document 03/03/25 15:25 AB (Rec: 03/03/25 16:33 AB [id number]) PT Summary Assessment and Plan Potential Rehabilitation Fair Potential Status of Condition Evolving at Evaluation Summary Impairments Pain,ROM,Strength,Balance,Coordination,Sensation,Tone, Cognition,Bed Mobility,Transfers,Gait,Activity Tolerance Assessment Summary pt is a 74 y/o F who is admitted for hepatotoxicity. pt requires SBA for bed mobility. pt refuse to do transfers this afternoon but able to scoot and partial stand to take side steps to position in bed. Will need to assess transfers next tx session for safe d/c plan. Goals Bed Mobility Goal Independent Transfer Goal Independent Days to Meet Goals 5 Frequency of Treatment Frequency Of Once a Day Treatment Treatment Plan Physical Therapy Bed Mobility Training,Transfer Training,Gait Training, Treatment Plan Therapeutic Exercise,Balance Retraining,Post Op Education,Discharge Planning,Hot or Cold Pack, Neuromuscular Re-ed,Coordination Retraining,Manual Therapy Other transfers Recommendations and Next Treatment Focus Recommendations To Nursing Amount of Assist 2 Person Assist Needed Discharge Recommendations PT Discharge Home with 11/03 Assist Available,Home Health Recommendations Transportation Needs Wheelchair/Cabulance at Discharge - PT assist 1
[2025-03-03 16:00] VITALS: BP 126/76; PULSE 70; RESP 12; TEMP 36.5; O2SAT 99
--- NOTE | 2025-03-03 16:05 | DIET.CONS ---
Dietary Consultation Note Admission Date: 02/28/2025 23:38 Assessment: 74 y F admitted for Tylenol overdose. Screened for low MNA score. PMH of moderate and severe protein calorie malnutrition and CKD EMR reviewed. Pt experiencing some nausea and lack appetite. Trial of protein smoothies today based on previous RD note indicating pt dislike for Ensure. Ht: 157.48 cm Wt: 50.5 kg BMI: 20.1 UBW: 48.988 kg on 02/14/25, 44.6 kg on 04/29/24, 45.359 kg on 03/08/24 Last BM: 02/26/25 (03/01/25 08:00) MNA: 3 Jaswant Score: 17 Diet: 03/01/25 Breakfast General (Regular) Diet Diet Modifications: Nutrition Percent Meal Consumed 0% 03/02/25 18:00 Percent Meal Consumed 0% 03/01/25 18:00 Labs: RBC 2.98 X10^6/uL (4.0-5.2) L 03/02/25 04:05 Hgb 9.7 g/dL (12.0-16.0) L 03/02/25 04:05 Hct 29.5 % (36-46) L 03/02/25 04:05 Creatinine 1.32 mg/dL (0.52-1.04) H 03/03/25 04:03 Lactate 1.9 mmol/L (0.7-2.1) 02/28/25 19:35 Nutrition Diagnosis: Inadequate oral intakes r/t nausea/vomiting aeb <25% PO intakes in last 3 days Interventions: -Protein supplementation drink at meals until PO intakes improve EER: 1500 kCALS (30 kcals/kg) 45 g protein (.8 g/kg per CKD) Monitoring/Evaluations: PO intakes Electronically Signed by: Keysha Campos 03/03/25 16:05 Clinical Dietitian [address] [id number]
[2025-03-03 20:45] VITALS: BP 120/55; PULSE 69; RESP 19; TEMP 36.8; O2SAT 100
[2025-03-04] VITALS: BP 123/58; PULSE 77; RESP 14; TEMP 36.6; O2SAT 98
--- NOTE | 2025-03-04 02:02 | PC.NURSE ---
Pt was found with vape in hand and confiscated @0120 and placed in safe.
[2025-03-04] MEDS: OXYCODONE IR 10 MG TABLET PO ×7 (03:52→23:58)
[2025-03-04] MEDS: ONDANSETRON 4 MG/2 ML INJ IV ×3 (03:55→21:07)
[2025-03-04 04:00] VITALS: BP 115/66; PULSE 66; RESP 14; TEMP 36.6; O2SAT 99
[2025-03-04 06:42] LABS: Alanine Aminotransferase 494 IU/L (<35); Albumin 2.8 g/dL (3.5-5.0); Albumin Globulin Ratio 0.9 (1.0-2.8); Alkaline Phosphatase 455 U/L (38-126); Blood Urea Nitrogen 19 mg/dL (7-17); Calcium 8.4 mg/dL (8.4-10.2); Carbon Dioxide 10 mmol/L (22-32); Chloride 107 mmol/L (98-107); Estimated Glomerular Filt Rate 49 mL/min (>60); Globulin 3.0 g/dL (1.7-4.1); Glucose 82 mg/dL (70-99); Potassium 4.7 mmol/L (3.4-5.1); Sodium 131 mmol/L (137-145); Total Protein 5.8 g/dL (6.3-8.2)
[2025-03-04 06:43] LABS: Acetaminophen < 10 ug/mL (10-30)
[2025-03-04 06:46] LABS: HEMOLYSIS 102 (0-50)
[2025-03-04 08:00] VITALS: BP 130/57; PULSE 79; RESP 12; TEMP 36.1; O2SAT 100
[2025-03-04] MEDS: PANTOPRAZOLE DR 40 MG TABLET PO (08:23)
[2025-03-04] MEDS: METOPROLOL IR 25 MG TABLET PO ×2 (08:23→21:07)
[2025-03-04] MEDS: PHYTONADIONE (VIT K1) 5 MG TABLET 10 MG PO (08:23)
--- NOTE | 2025-03-04 08:34 | P.PN_ITS ---
Subjective Subjective Interval history: S: She was still weak. No cough or dyspnea. No abdominal pain. No diarrhea or dysuria. She was a persistent leukocytosis. Exam Vital Signs (past 8 hours): - 03/04/25 04:00 Temperature 97.8 F Pulse Rate 66 Respiratory Rate 14 Blood Pressure 115/66 Pulse Oximetry 99 Oxygen Delivery Method Room Air Oxygen Flow Rate 0 Narrative Exam Narrative: NAD, alert and oriented. Fluent speech. Chronically ill in appearance, and frail. Lungs are clear, normal rate and effort. Heart is regular, no murmur gallop or rub. Abdomen is soft, non distended. Extremities are free of edema. Objective Labs 03/02/25 04:05 03/04/25 06:00 Labs: Laboratory Results - last 24 hr 03/04/25 06:00 Sodium 131 L Potassium 4.7 D Chloride 107 Carbon Dioxide 10 L BUN 19 H Creatinine 1.17 H Estimated GFR 49 L BUN/Creatinine Ratio 16.2 Glucose 82 Calcium 8.4 Total Bilirubin 1.7 H AST 510 H ALT 494 H Alkaline Phosphatase 455 H Total Protein 5.8 L Albumin 2.8 L Globulin 3.0 Albumin/Globulin Ratio 0.9 L Acetaminophen < 10 PFSH Medical History Family history of colon cancer in father Closed fracture of left distal femur Immunodeficiency due to conditions classified elsewhere Age-related osteoporosis without current pathological fracture History of vertebral compression fracture GERD without esophagitis Primary osteoarthritis involving multiple joints Chronic low back pain Stage 3b chronic kidney disease (CKD) Mixed hyperlipidemia Essential hypertension Cerebrovascular disease Coronary artery disease Recurrent UTI Displaced comminuted fracture of shaft of tibia Septic shock Left rib fracture Closed left clavicular fracture Iron (Fe) deficiency anemia Nephrolithiasis Peptic ulcer disease History of osteomyelitis Fracture, tibia Left foot drop Numbness and tingling HLD (hyperlipidemia) C. difficile colitis Colitis Anxiety Insomnia Arthritis DJD (degenerative joint disease) Depression Fibromyalgia Migraines Multiple fractures Osteoporosis Radius fracture (08/30/17) Neuropathy History of recurrent UTIs Renal disease Hypertension Chronic pain GI bleeding Surgical History Hx of kyphoplasty (07/28/19) Hx of kyphoplasty (04/28/19) Hx of kyphoplasty (~2013) Hx of elbow surgery Hx of appendectomy Hx of cholecystectomy Status post epidural steroid injection (03/25/19) H/O: hysterectomy Hx of tonsillectomy History of surgery Family History Mother No known health problems COPD (chronic obstructive pulmonary disease) Father No known health problems Social History household members: significant other Smoking Status: Former smoker alcohol intake: current Assessment & Plan Assessment & Plan narrative: 1. Tylenol overdose with liver injury, present on admission and improving. Bilirubin 1.7, AST 510, ALT 494. 2. Leukocytosis, present on admission and stable. 3. Alcohol use disorder, active. 4. Probable cognitive impairment, active. 5. Weakness, present on admission and active. 6. Chronic kidney disease stage III with a GFR of 49 and creatinine of 1.17. Stable. 7. Klebsiella UTI, active. 8. Hyponatremia, active. Plan: -continue IV antibiotics, anticipate a 5-7 day course. -out of bed, physical therapy evaluation. -anticipate need for intermediate facility rehabilitation stay. Time-Based Coding :: [TOTAL MINUTES] spent with patient and on the chart (including review of chart, obtaining history, exam, reviewing outside data, placing orders, documenting exam and treatment plan, and counseling patient) on [DATE]. Quality VTE Deep Vein Thrombosis/Pulmonary Embolism Present on Admission: No
[2025-03-04] MEDS: THIAMINE 200 MG in SODIUM CHLORIDE 0.9% 100 ML 408 MG IV (09:15)
--- NOTE | 2025-03-04 12:21 | DIET.PN1 ---
Dietary Progress Note Assessment: Met with pt at bedside. Reports less nausea today and able to eat portion of breakfast. Before hospitalization reports 4 days dry heaving with no to limited PO intakes. Before then typically only able to tolerate a can of soup and crackers with cream cheese on them. Doesn't tolerate thick foods like yogurts or smoothies right now, doesn't like Ensure drinks. Declines NFPE at this time. Temples look mildly depressed. Ht: 157.48 cm Wt: 50.5 kg BMI: 20.1 UBW: 101 lb per pt, 48.988 kg on 02/14/25, 44.6 kg on 04/29/24 Last BM: 02/26/25 (03/01/25 08:00) MNA: 3 Jaswant Score: 15 Diet: 03/01/25 Breakfast General (Regular) Diet Diet Modifications: Nutrition Percent Meal Consumed 15 03/03/25 18:00 Percent Meal Consumed 0% 03/02/25 18:00 Labs: RBC 2.98 X10^6/uL (4.0-5.2) L 03/02/25 04:05 Hgb 9.7 g/dL (12.0-16.0) L 03/02/25 04:05 Hct 29.5 % (36-46) L 03/02/25 04:05 Creatinine 1.17 mg/dL (0.52-1.04) H 03/04/25 06:00 Lactate 1.9 mmol/L (0.7-2.1) 02/28/25 19:35 Nutrition Diagnosis: Inadequate oral intakes r/t nausea/early satiety aeb <25% PO intakes Interventions: Discussed small frequent meals, adding extra snacks on tray for later (crackers, fruit cups, drinks) Trial of Ensure clear EER: 1500 kCALS (30 kcals/kg) 45 g protein (.8 g/kg per CKD) Monitoring/Evaluations: PO intakes Electronically Signed by: Keysha Campos 03/04/25 12:21 Clinical Diet[address] [address]
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
--- NOTE | 2025-03-04 15:30 | PT-IP ANOTE ---
PT reviewed chart. This PT has worked with pt in other admissions after her left leg fracture and her reports of transfers only and NWB LLE after injury and surgeries over a year ago. Today, pt states she is NWB on both legs after Dr. Carpio called her after her last ED visit. PT reviews Dr. Carpio's most recent note on 02/04/25 that this PT also reviewed last time PT saw pt in the ED. 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 There is no mention of NWB of RLE. PT communicates this finding to pt and pt disagrees. Per Dr. Carpio's note and pt's report, pt is recommended to return to [facility] where her LLE surgeries were completed. Pt has had multiple visits to ED and adm at this facility in the meantime with no increase in WB per ortho on LLE and now pt reports NWB in RLE as well. It is possible that not WB through her LLE for such an extended period of time has impeded surgical healing and bone growth. Given pt has been essentially bed bound with transfers only to BSC and w/c for an extended period of time, has not beared weight through her left leg, and she believes she is not allowed to bear weight through her right leg, there is no way to currently progress mobility in a safe and skilled manner. Recommend ortho consult that would include WB status for B LEs. This PT does not feel that SNF will be beneficial under current circumstances. Recommend increased assistance at d/c. Will d/c PT at this time and PT communicates all of these recs to pt, SW and attending.
--- NOTE | 2025-03-04 15:41 | PT-IP ANOTE ---
Addendum to PT note: on returning to pt room to discuss recommendations with her after talking with other team members, pt states that she cannot use a walker d/t B hand neuropathy.
[2025-03-04 16:00] VITALS: BP 125/50; PULSE 66; RESP 12; TEMP 35.8; O2SAT 98
--- NOTE | 2025-03-04 16:36 | OT.IPNOTE ---
Went to see pt for OT needs and pt states has assist for all ADL needs at home and caregivers to assist 5x/week for 5 hours. Therefore discharge OT eval orders.
[2025-03-04] MEDS: DICLOFENAC 1% GEL 100 GM 1 APPLIC TOP (17:05)
[2025-03-04 20:00] VITALS: BP 141/60; PULSE 68; RESP 18; TEMP 35.8; O2SAT 97
[2025-03-05] MEDS: OXYCODONE IR 10 MG TABLET PO ×3 (03:15→09:43)
[2025-03-05 04:00] VITALS: BP 151/57; PULSE 74; RESP 18; TEMP 36.2; O2SAT 100
[2025-03-05] MEDS: PANTOPRAZOLE DR 40 MG TABLET PO (05:12)
--- NOTE | 2025-03-05 07:52 | PM.PN.1 ---
Subjective Subjective Interval history: Summary: S: Exam Vital Signs (past 8 hours): - 03/05/25 04:00 Temperature 97.1 F L Pulse Rate 74 Respiratory Rate 18 Blood Pressure 151/57 H Pulse Oximetry 100 Oxygen Flow Rate 0 Oxygen Delivery Method Room Air Oxygen Flow Rate 0 Narrative Exam Narrative: NAD, alert and oriented. Fluent speech. Lungs are clear, normal rate and effort. Heart is regular, no murmur gallop or rub. Abdomen is soft, non distended. Extremities are free of edema. Objective Labs 03/02/25 04:05 03/04/25 06:00 [facility] Medical History Family history of colon cancer in father Closed fracture of left distal femur Immunodeficiency due to conditions classified elsewhere Age-related osteoporosis without current pathological fracture History of vertebral compression fracture GERD without esophagitis Primary osteoarthritis involving multiple joints Chronic low back pain Stage 3b chronic kidney disease (CKD) Mixed hyperlipidemia Essential hypertension Cerebrovascular disease Coronary artery disease Recurrent UTI Displaced comminuted fracture of shaft of tibia Septic shock Left rib fracture Closed left clavicular fracture Iron (Fe) deficiency anemia Nephrolithiasis Peptic ulcer disease History of osteomyelitis Fracture, tibia Left foot drop Numbness and tingling HLD (hyperlipidemia) C. difficile colitis Colitis Anxiety Insomnia Arthritis DJD (degenerative joint disease) Depression Fibromyalgia Migraines Multiple fractures Osteoporosis Radius fracture (08/30/17) Neuropathy History of recurrent UTIs Renal disease Hypertension Chronic pain GI bleeding Surgical History Hx of kyphoplasty (07/28/19) Hx of kyphoplasty (04/28/19) Hx of kyphoplasty (~2013) Hx of elbow surgery Hx of appendectomy Hx of cholecystectomy Status post epidural steroid injection (03/25/19) H/O: hysterectomy Hx of tonsillectomy History of surgery Family History Mother No known health problems COPD (chronic obstructive pulmonary disease) Father No known health problems Social History household members: significant other Smoking Status: Former smoker alcohol intake: current Assessment & Plan Assessment & Plan narrative: 1. Thalamic CVA. Present on admission and active. 2. Hypertension, stable. 3. Atrial fibrillation, stable. 4. Over-anticoagulation with INR 3.7, present on admission and active. PLAN: -Hold warfarin with INR 2-3 -serial neuro exam -Swallow eval -PT/OT/ST evaluations. The situation discussed with family including and daughter. This is difficult situation as patient was not a candidate for any alternative medication or intervention based therapies due to his mechanism of stroke which is small-vessel to the midbrain as well as his over anticoagulation with warfarin. Time-Based Coding :: [TOTAL MINUTES] spent with patient and on the chart (including review of chart, obtaining history, exam, reviewing outside data, placing orders, documenting exam and treatment plan, and counseling patient) on [DATE]. Quality VTE Deep Vein Thrombosis/Pulmonary Embolism Present on Admission: No
[2025-03-05 08:00] VITALS: BP 136/53; PULSE 80; RESP 18; TEMP 36.1; O2SAT 99
[2025-03-05 08:01] LABS: Hematocrit 24.9 % (36-46); Hemoglobin 8.5 g/dL (12.0-16.0); Mean Corpuscular HGB Conc 34.3 % (30-36); Mean Corpuscular Hemoglobin 33.4 PG (26-34); Mean Corpuscular Volume 97.3 fL (80-100); Platelet Count 594 X10^3/uL (150-400)
[2025-03-05 08:12] LABS: Alanine Aminotransferase 360 IU/L (<35); Albumin 3.0 g/dL (3.5-5.0); Albumin Globulin Ratio 0.9 (1.0-2.8); Alkaline Phosphatase 457 U/L (38-126); Blood Urea Nitrogen 14 mg/dL (7-17); Calcium 8.5 mg/dL (8.4-10.2); Carbon Dioxide 16 mmol/L (22-32); Chloride 107 mmol/L (98-107); Estimated Glomerular Filt Rate > 60 mL/min (>60); Globulin 3.4 g/dL (1.7-4.1); Glucose 94 mg/dL (70-99); HEMOLYSIS < 15 (0-50); Potassium 3.8 mmol/L (3.4-5.1); Sodium 132 mmol/L (137-145); Total Protein 6.4 g/dL (6.3-8.2)
[2025-03-05] MEDS: METOPROLOL IR 25 MG TABLET PO (08:40)
[2025-03-05] MEDS: THIAMINE 200 MG in SODIUM CHLORIDE 0.9% 100 ML 408 MG IV (08:40)
--- NOTE | 2025-03-05 11:11 | P.DS_ITS ---
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 In the discharge instructions she was advised not to drink alcohol as her blood alcohol was 180 at that time and not to take acetaminophen. Patient presents Presents to the emergency room 02/28 with generalized weakness nausea vomiting and diarrhea. Findings in the emergency department significant for transaminase elevation with AST at 1290 acetaminophen level of 103. Patient denies drinking alcohol but in his to taking acetaminophen throughout the day Patient was started on the rescue protocol with intravenous acetylcysteine and Fomepizole upon recommendations and assistance from the poison control Center Review of systems: Patient is not cogent or able to participate in the review of systems Discharge Providers Provider Date of admission: 02/28/25 23:38 Discharge Date: 03/05/25 Primary care physician: Edil Crouch PA-C Consults: 03/03/25 10:37 Consult to Physical Therapy Evaluate & Treat Comment: Physician Instructions: Evaluate and Treat 03/04/25 15:07 Consult to Occupational Therapy Evaluate & Treat Comment: Physician Instructions: Evaluate and treat Discharge provider: Master Bernabe MD Summary Hospital Course Discharge Diagnosis: 1. Tylenol overdose with liver injury, present on admission and improved. 2. Leukocytosis, present on admission and improved. 3. Alcohol use disorder, active. 4. Probable cognitive impairment, active. 5. Weakness, present on admission and active. 6. Chronic kidney disease stage III with a GFR of 49 and creatinine of 1.17. Stable. 7. Klebsiella UTI, improved. 8. Hyponatremia, improved. Hospital Course: 03/02: Patient's trend absence transaminases have escalated to a fastigiuml of 3442 and de-escalated to 2393 with rescue treatment of acetylcysteine and for omeprazole and activated charcoal. PT INR has also peaked at 4.8 and has de- escalated to 3.9 patient is hyponatremic. The patient was improved on March 03 and her neck protocol was stopped. Poison control signed off owing to improved mental status and liver function tests. The patient had a persistent leukocytosis and was treated with ceftriaxone for a Klebsiella UTI. She was generally debilitated but improved with therapies. Over the last 2 days of her admission her white count improved. She he was essentially minimally weight- bearing and transfers to bed side commode wheelchair and has been doing this chronically. She does have follow up with Dr. Smith of Orthopedics to continue to address her weight-bearing status and multiple orthopedic issues. In addition, she will have several more days of oral antibiotics given that her [place] count [place] [address] as recently as March 04 and improved to 10,000 thousand on the day of discharge. She does not have any specific half-way facility needs a appear to qualify her for rehabilitation services. She will return home where she lives with her significant other. She is advised to continue to avoid alcohol. In addition her atorvastatin was stopped due to abnormal liver function and she was advised to stop he was in his acetaminophen. There was a concern that she had chronic ingestion of tylenol leading to subacute liver injury. Status at Discharge Cognitive/behavioral status at discharge: oriented Functional status at discharge: wheelchair bound Overall status at discharge: patient is back to baseline Time Spent with Patient Time spent: Greater than 30 minutes Exam Vital Signs (past 8 hours): - 03/05/25 04:00 03/05/25 08:00 Temperature 97.1 F L 97 F L Pulse Rate 74 80 Respiratory Rate 18 18 Blood Pressure 151/57 H 136/53 L Pulse Oximetry 100 99 Oxygen Flow Rate 0 0 Oxygen Delivery Method Room Air Oxygen Flow Rate 0 Narrative Exam Narrative: NAD, alert and oriented. Fluent speech. Lungs are clear, normal rate and effort. Heart is regular, no murmur gallop or rub. Abdomen is soft, non distended. Extremities are with 1-2+ edema. She appears chronically ill and frail. Objective ECG Impression: Intervals [place] Rate: 133 P: -7 UT: 132 QRS: 102 QRSD: 70 T: 17 QT: 296 QTc: 440 Interpretive Statements Sinus tachycardia with premature supraventricular complexes Rightward axis Nonspecific ST abnormality Imaging Chest x-ray: Radiologist's impression: No acute cardiopulmonary abnormality is seen. CT scan - abdomen: Radiologist's impression: FINDINGS: Image quality: Prominent motion is present limiting areas fine detail evaluation. Lower Chest: No significant findings. ABDOMEN: Liver: No solid mass. Gallbladder: Removed. Biliary ducts: No biliary dilation. Pancreas: No ductal dilation. Spleen: Size is within normal limits. Adrenal Glands: No adrenal nodules. Kidneys and Ureters: No hydronephrosis. Markedly asymmetric atrophic kidney with prominent areas of calcification unchanged. Stomach and Bowel: Bowel loops are poorly evaluated secondary to motion. No gross obstruction or inflammation. Peritoneum: No abnormal intraperitoneal fluid. No free air. Ventral Wall: No significant ventral hernia. Abdominal Nodes: No retroperitoneal or mesenteric adenopathy by size criteria. Vessels: Aorta and inferior vena cava are normal in size. PELVIS: Pelvic Organs: Unremarkable. Bladder: No bladder wall thickening, accounting for underdistention. Pelvic Nodes: No enlarged lymph nodes. Miscellaneous: No inguinal hernias are seen. Bones: No aggressive osseous abnormality. Multilevel L2 through L5 compression deformities with postsurgical changes consistent with vertebral/kyphoplasty. T11 and L1 compression deformities are stable. IMPRESSION: Limited exam secondary to significant motion. Bowel gas pattern is grossly nonobstructive without gross inflammatory change. Labs 03/05/25 07:45 03/05/25 07:45 Labs: Laboratory Results - last 24 hr 03/05/25 07:45 WBC 10.6 RBC 2.56 L Hgb 8.5 L Hct 24.9 L MCV 97.3 MCH 33.4 MCHC 34.3 RDW 18.2 H Plt Count 594 H Sodium 132 L Potassium 3.8 Chloride 107 Carbon Dioxide 16 L BUN 14 Creatinine 0.97 Estimated GFR > 60 BUN/Creatinine Ratio 14.4 Glucose 94 Calcium 8.5 Total Bilirubin 1.4 H AST 233 H ALT 360 H Alkaline Phosphatase 457 H Total Protein 6.4 Albumin 3.0 L Globulin 3.4 Albumin/Globulin Ratio 0.9 L [facility] Medical History Family history of colon cancer in father Closed fracture of left distal femur Immunodeficiency due to conditions classified elsewhere Age-related osteoporosis without current pathological fracture History of vertebral compression fracture GERD without esophagitis Primary osteoarthritis involving multiple joints Chronic low back pain Stage 3b chronic kidney disease (CKD) Mixed hyperlipidemia Essential hypertension Cerebrovascular disease Coronary artery disease Recurrent UTI Displaced comminuted fracture of shaft of tibia Septic shock Left rib fracture Closed left clavicular fracture Iron (Fe) deficiency anemia Nephrolithiasis Peptic ulcer disease History of osteomyelitis Fracture, tibia Left foot drop Numbness and tingling HLD (hyperlipidemia) C. difficile colitis Colitis Anxiety Insomnia Arthritis DJD (degenerative joint disease) Depression Fibromyalgia Migraines Multiple fractures Osteoporosis Radius fracture (08/30/17) Neuropathy History of recurrent UTIs Renal disease Hypertension Chronic pain GI bleeding Surgical History Hx of kyphoplasty (07/28/19) Hx of kyphoplasty (04/28/19) Hx of kyphoplasty (~2013) Hx of elbow surgery Hx of appendectomy Hx of cholecystectomy Status post epidural steroid injection (03/25/19) H/O: hysterectomy Hx of tonsillectomy History of surgery Family History Mother No known health problems COPD (chronic obstructive pulmonary disease) Father No known health problems Social History household members: significant other Smoking Status: Former smoker alcohol intake: current Discharge Assessment & Plan Assessment and Plan Assessment: 1. Tylenol overdose with liver injury, present on admission and improved. 2. Leukocytosis, present on admission and improved. 3. Alcohol use disorder, active. 4. Probable cognitive impairment, active. 5. Weakness, present on admission and active. 6. Chronic kidney disease stage III with a GFR of 49 and creatinine of 1.17. Stable. 7. Klebsiella UTI, improved. 8. Hyponatremia, improved. Plan of Treatment: Discharge home, avoid Tylenol and atorvastatin. Alcohol avoidance is also advised. Close follow up with PCP. Discharge Plan Discharge Plan Patient Disposition: Home Health Service Provider Discharge Comment: Stable for discharge home. Discharge orders & Medications Prescriptions: New cephalexin 500 mg capsule 500 mg PO QID Qty: 12 0RF oxycodone 5 mg capsule 5 mg PO Q8H PRN (Reason: pain) Qty: 15 0RF Continued Ensure Plus 0.05 gram- 1.5 kcal/mL liquid 1 ea PO TID Qty: 5688 6RF Rx Instructions: Chocolate flavor is requested. diclofenac sodium 1 % gel 2 g topical 4XD PRN (Reason: pain) Qty: 100 0RF pantoprazole [Protonix] 40 mg tablet,delayed release (DR/EC) 40 mg PO DAILY Qty: 90 3RF metoprolol tartrate 25 mg tablet 25 mg PO BID Qty: 180 1RF Rx Instructions: Take 1 Tablet PO BID ferrous sulfate [FeroSul] 325 mg (65 mg iron) tablet 325 mg PO DAILY Qty: 30 0RF thiamine mononitrate (vit B1) 100 mg tablet 100 mg PO DAILY Patient Comments: Pt reports taking 1 tablet (100mg) total daily. aspirin [Adult Aspirin Regimen] 81 mg tablet,delayed release (DR/EC) 81 mg PO DAILY trazodone 50 mg tablet See Rx Instructions PO BEDTIME PRN (Reason: insomnia) Qty: 60 5RF Rx Instructions: 1-2 tablets nightly as needed for sleep Discontinued atorvastatin 40 mg tablet 40 mg PO DAILY Qty: 90 2RF acetaminophen 325 mg capsule 650 mg PO BID PRN (Reason: Pain) Patient Comments: Patient reports taking 2 tablets (1000mg) in the morning and 1 tablet (500mg) in the evening before bedtime for pain. Rx Instructions: Take 2 tablets (650mg) PO BID PRN for pain. Follow up/Referrals: Edil Crouch PA-C [Primary Care Provider, Medical] Diet/Activity/Treatments Diet: Diet as Tolerated Visit Report/Discharge Packet Instructions: Diarrhea, DI for Acute Liver Failure Stand Alone Forms: Patient Portal/API, Stroke Signs & Symptoms Discharge Data Primary Care Provider: Edil Crouch Quality VTE Deep Vein Thrombosis/Pulmonary Embolism Present on Admission: No
--- NOTE | 2025-03-05 13:12 | PC.NURSE ---
Day shift: Left unit via WC at approx 1300. Friend is driving her home. Encouraged to take all medications as directed. Also encouraged to find a PCP and make an appointment. Paperwork signed and all questions answered. New MD script sent to Pt's pharmacy electronic. Pt has all personal belongings. Pt was helped into car by this Computer Support Specialist and VI Naylor, Truong tolerated well.
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
== END 2025-03-05 13:00 | disposition home health service (06) | DRG 917 ==
LOC: ED 19:20 → AC 23:39
PROVIDERS: Hospitalist; Internal Medicine; Admitting Provider Internal Medicine; Emergency Provider Family Medicine; PCP Student in an Organized Health Care Education/Training Program; Referring Provider Family Medicine; Visit Provider Internal Medicine
DX: T39.1X1A Poisoning by 4-Aminophenol derivatives, accidental (unintentional), initial encounter (principal); G93.41 Metabolic encephalopathy; E87.20 Acidosis, unspecified; N39.0 Urinary tract infection, site not specified; E87.1 Hypo-osmolality and hyponatremia; D75.839 Thrombocytosis, unspecified; D64.9 Anemia, unspecified; R53.81 Other malaise; R19.7 Diarrhea, unspecified; R53.1 Weakness; K72.90 Hepatic failure, unspecified without coma; F10.90 Alcohol use, unspecified, uncomplicated; B96.1 Klebsiella pneumoniae [K. pneumoniae] as the cause of diseases classified elsewhere; N18.30 Chronic kidney disease, stage 3 unspecified; G31.84 Mild cognitive impairment of uncertain or unknown etiology; K21.9 Gastro-esophageal reflux disease without esophagitis; I12.9 Hypertensive chronic kidney disease with stage 1 through stage 4 chronic kidney disease, or unspecified chronic kidney disease; D50.9 Iron deficiency anemia, unspecified; Y90.0 Blood alcohol level of less than 20 mg/100 ml; G47.00 Insomnia, unspecified; Z99.3 Dependence on wheelchair; Z87.891 Personal history of nicotine dependence; Z91.148 Patient's other noncompliance with medication regimen for other reason
CPT/HCPCS: 36415; 71045; 74177; 80053; 80320; 80329; 81003; 81015; 82805; 83605; 83690; 84145; 84450; 84460; 84484; 85007; 85025; 85027; 85610; 85730; 87040; 87077; 87086; 87186; 87637; 93005; 96361; 96365; 96366; 96367; 96368; 96375; 97162; 97530; 99284; G0480; J0132; J0696; J1451; J2270; J2405; Q9967

== ENCOUNTER 2025-03-15 15:22 | Observation (INO) | payer MEDICARE, MEDICAID, SELFPAY ==
[2022-07-22 07:16] VITALS: RESP 28
[2022-07-22 14:33] VITALS: PULSE 127; RESP 38; O2SAT 100
[2025-03-01 08:00] VITALS: BMI 20.1
[2025-03-15] VITALS (11 sets, daily range): BP systolic 122–149; BP diastolic 56–85; PULSE 66–96; RESP 16–19; TEMP 36.8; O2SAT 98–100; BMI 19.0
[2025-03-15 17:16] LABS: Add Manual Diff / Slide Review YES; Alanine Aminotransferase 46 IU/L (<35); Albumin 3.7 g/dL (3.5-5.0); Albumin Globulin Ratio 1.1 (1.0-2.8); Alkaline Phosphatase 269 U/L (38-126); Blood Urea Nitrogen 13 mg/dL (7-17); Calcium 8.9 mg/dL (8.4-10.2); Carbon Dioxide 17 mmol/L (22-32); Chloride 101 mmol/L (98-107); Estimated Glomerular Filt Rate > 60 mL/min (>60); Globulin 3.3 g/dL (1.7-4.1); Glucose 79 mg/dL (70-99); HEMOLYSIS < 15 (0-50); Hematocrit 30.3 % (36-46); Hemoglobin 10.4 g/dL (12.0-16.0); Mean Corpuscular HGB Conc 34.5 % (30-36); Mean Corpuscular Hemoglobin 33.7 PG (26-34); Mean Corpuscular Volume 97.7 fL (80-100); Platelet Count 346 X10^3/uL (150-400); Potassium 3.6 mmol/L (3.4-5.1); Sodium 129 mmol/L (137-145); Total Protein 7.0 g/dL (6.3-8.2)
--- NOTE | 2025-03-15 17:35 | PC.NURSE ---
Pt requesting pain meds. Dr Castano notified.
[2025-03-15 18:00] LABS: Basophils Percent Manual 4.0 % (0-1); Eosinophils Percent Manual 2.0 % (2-4); Lymphocytes Percent Manual 28.0 % (25-45); Monocytes Percent Manual 9.0 % (2-11); Neutrophils Absolute Manual 4446 /uL (3000-5900); Segmented Neutrophils Percent 57.0 % (38-70); Total Cells Counted 100
[2025-03-15 18:01] LABS: Poikilocytosis 1+
[2025-03-15 18:02] LABS: Anisocytosis 1+
--- NOTE | 2025-03-15 18:59 | ED.BACK ---
HPI - Back Pain/Injury General Chief Complaint: Back Pain/Injury Stated Complaint: poss UTI Time Seen by Provider: 03/15/25 18:35 Source: patient and EMS History of Present Illness HPI Narrative: 74-year-old female with chart history of recurrent UTI, COPD, CAD, cerebrovascular disease, ELIZABETH. She complains of 2 days duration lower abdominal pain, believes that her urine smells funny, increasing abdominal pain. No nausea or vomiting. No diarrhea, no black or red stools. No injury trauma new activities. She has not feel feverish. Related Data Home Medications ?Medication ?Instructions ?Recorded ?Confirmed aspirin 81 mg tablet,delayed 81 mg PO DAILY 04/13/24 03/01/25 release (Adult Aspirin Regimen) thiamine mononitrate (vit B1) 100 100 mg PO DAILY 11/03/24 03/16/25 mg tablet Previous Rx's ?Medication ?Instructions ?Recorded food supplemt, lactose-reduced 1 ea PO TID #5,688 mL 11/20/23 0.05 gram-1.5 kcal/mL oral liquid (Ensure Plus) diclofenac sodium 1 % topical gel 2 g topical 4XD PRN pain #100 grams 07/27/24 ferrous sulfate 325 mg (65 mg 325 mg PO DAILY #30 tabs 08/28/24 iron) tablet (FeroSul) pantoprazole 40 mg tablet,delayed 40 mg PO DAILY #90 tabs 09/23/24 release (Protonix) trazodone 50 mg tablet See Rx Instructions PO BEDTIME PRN 10/06/24 insomnia #60 tabs metoprolol tartrate 25 mg tablet 25 mg PO BID #180 tabs 02/03/25 cephalexin 500 mg capsule 500 mg PO QID #12 caps 03/05/25 oxycodone 5 mg capsule 5 mg PO Q8H PRN pain #15 caps 03/05/25 cefdinir 300 mg capsule 300 mg PO BID 10 days #20 caps 03/15/25 Allergies Allergy/AdvReac Type Severity Reaction Status Date / Time furosemide (From Lasix) Allergy Intermediate Rash Verified 03/15/25 15:31 tramadol (TRAMADOL) Allergy Unknown Verified 03/15/25 15:31 amitriptyline (AMITRIPTYLINE) AdvReac Intermediate Confusion Verified 03/15/25 15:31 duloxetine AdvReac Intermediate GI distress Verified 03/15/25 15:31 cyclobenzaprine AdvReac Dizziness Verified 03/15/25 15:31 Patient History Medical History Family history of colon cancer in father Closed fracture of left distal femur Immunodeficiency due to conditions classified elsewhere Age-related osteoporosis without current pathological fracture History of vertebral compression fracture GERD without esophagitis Primary osteoarthritis involving multiple joints Chronic low back pain Stage 3b chronic kidney disease (CKD) Mixed hyperlipidemia Essential hypertension Cerebrovascular disease Coronary artery disease Recurrent UTI Displaced comminuted fracture of shaft of tibia Septic shock Left rib fracture Closed left clavicular fracture Iron (Fe) deficiency anemia Nephrolithiasis Peptic ulcer disease History of osteomyelitis Fracture, tibia Left foot drop Numbness and tingling HLD (hyperlipidemia) C. difficile colitis Colitis Anxiety Insomnia Arthritis DJD (degenerative joint disease) Depression Fibromyalgia Migraines Multiple fractures Osteoporosis Radius fracture (08/30/17) Neuropathy History of recurrent UTIs Renal disease Hypertension Chronic pain GI bleeding Surgical History Hx of kyphoplasty (07/28/19) Hx of kyphoplasty (04/28/19) Hx of kyphoplasty (~2013) Hx of elbow surgery Hx of appendectomy Hx of cholecystectomy Status post epidural steroid injection (03/25/19) H/O: hysterectomy Hx of tonsillectomy History of surgery Family History Mother No known health problems COPD (chronic obstructive pulmonary disease) Father No known health problems Social History household members: significant other Smoking Status: Former smoker alcohol intake: current Smoking Status: Former smoker tobacco type: vaping alcohol intake frequency: holidays/special occasions only Exam Narrative Exam Narrative: GENERAL: Well-developed patient, in mild distress. HEAD: Atraumatic. Normocephalic. EYES: Pupils equal round and reactive. Extraocular motions intact. No scleral icterus. No injection or drainage. ENT: Nose without bleeding, purulent drainage. Throat without erythema, tonsillar hypertrophy or exudate. Airway patent. NECK: Trachea midline. Non tender CARDIOVASCULAR: Regular rate and rhythm without murmurs, gallops, or rubs. RESPIRATORY: Clear to auscultation. Breath sounds equal bilaterally. No wheezes, rales, or rhonchi. GASTROINTESTINAL: Abdomen nondistended, left lower quadrant tenderness greater than right lower quadrant tenderness, nondistended, no guarding or rebound. Bowel tones unremarkable without rushes or tinkles. EXTREMITIES: No edema or joint tenderness. BACK: Nontender without deformity or crepitance. No flank tenderness. NEURO: AOx3. Motor functions grossly nonfocal. SKIN: No rash or erythema of visible areas Initial Vital Signs Initial Vital Signs: Vital Signs Pulse Rate 89 03/15/25 15:24 Blood Pressure 143/85 H 03/15/25 15:24 Pulse Oximetry 99 03/15/25 15:24 Course Orders Ordered: Discontinued Medications Hydromorphone HCl (Hydromorphone Hcl 0.5 Mg/0.5 Ml Syringe) 0.5 mg IV NOW ONE Stop: 03/15/25 19:00 Last Admin: 03/15/25 19:13 Dose: 0.5 mg Documented By: Ceftriaxone Sodium 1,000 mg/ (Sodium Chloride) 100 mls @ 200 mls/hr IV NOW ONE Stop: 03/15/25 20:47 Last Infusion: 03/15/25 22:02 Dose: Infused Documented By: Admin: 03/15/25 21:11 Dose: 200 mls/hr Documented By: Ibuprofen (Ibuprofen 400 Mg Tablet) 400 mg PO NOW ONE Stop: 03/16/25 04:18 Last Admin: 03/16/25 04:51 Dose: 400 mg Documented By: SHARITA Ondansetron HCl (Ondansetron 4 Mg/2 Ml Inj) 4 mg IV NOW ONE Stop: 03/15/25 19:00 Last Admin: 03/15/25 19:13 Dose: 4 mg Documented By: Oxycodone/Acetaminophen (Oxycodone/Acetaminophen 5/325 Tablet) 1 tab PO NOW ONE Stop: 03/16/25 01:13 Last Admin: 03/16/25 01:46 Dose: 1 tab Documented By: SHARITA Phenazopyridine HCl (Phenazopyridine 100 Mg Tablet) 100 mg PO NOW ONE Stop: 03/15/25 23:19 Last Admin: 03/16/25 01:47 Dose: 100 mg Documented By: SHARITA Vital Signs Vital signs: Vital Signs - 8 hr 03/16/25 00:30 03/16/25 01:00 03/16/25 02:00 Pulse Rate 67 87 68 Respiratory Rate 18 17 17 Blood Pressure 148/64 H 149/64 H 168/70 H Pulse Oximetry 98 100 100 Oxygen Delivery Method Room Air Room Air Room Air 03/16/25 03:00 03/16/25 04:00 03/16/25 05:00 Pulse Rate 66 80 75 Respiratory Rate 17 17 16 Blood Pressure 164/71 H 167/70 H 164/71 H Pulse Oximetry 99 100 100 Oxygen Delivery Method Room Air Room Air Room Air 03/16/25 06:00 Pulse Rate 84 Respiratory Rate 16 Blood Pressure 160/76 H Pulse Oximetry 100 Oxygen Delivery Method Room Air MDM - Back Pain/Injury Lab Data Attestation: I reviewed the patient's lab results. Lab results narrative: White blood cell count 7800, hemoglobin 10.4, platelets adequate. Glucose 79. BUN 13 with creatinine 0.92 normal renal function. Serum CO2 decreased 17 noted. Sodium 129 low, potassium level normal. Alkaline phosphatase 269, ALT 46, AST 28, total bilirubin 0.9. Urinalysis pending. 03/15/25 16:46 03/15/25 16:46 Labs: Lab Results 03/15/25 03/15/25 Range/Units 16:46 19:57 WBC 7.8 (4.5-11.0) X10^3/uL RBC 3.10 L (4.0-5.2) X10^6/uL Hgb 10.4 L (12.0-16.0) g/dL Hct 30.3 L (36-46) % MCV 97.7 (80-100) fL MCH 33.7 (26-34) PG MCHC 34.5 (30-36) % RDW 17.1 H (11.6-14.8) % Plt Count 346 (150-400) X10^3/uL Neut % (Auto) Not Reportable Lymph % (Auto) Not Reportable [place] % (Auto) Not Reportable Eos % (Auto) Not Reportable Baso % (Auto) Not Reportable Lymph # (Auto) Not Reportable [place] # (Auto) Not Reportable Baso # (Auto) Not Reportable Total Counted 100 Seg Neutrophils % 57.0 (38-70) % Lymphocytes % (Manual) 28.0 (25-45) % Monocytes % (Manual) 9.0 (2-11) % Eosinophils % (Manual) 2.0 (2-4) % Basophils % (Manual) 4.0 H (0-1) % Neutrophils # (Manual) 4446 ([id number]) /uL Platelet Estimate Adeq RBC Morphology See below Poikilocytosis 1+ H Anisocytosis 1+ H Sodium 129 L (137-145) mmol/L Potassium 3.6 (3.4-5.1) mmol/L Chloride 101 (98-107) mmol/L Carbon Dioxide 17 L (22-32) mmol/L BUN 13 (7-17) mg/dL Creatinine 0.92 (0.52-1.04) mg/dL Estimated GFR > 60 (>60) mL/min BUN/Creatinine Ratio 14.1 (6-22) Glucose 79 (70-99) mg/dL Calcium 8.9 (8.4-10.2) mg/dL Total Bilirubin 0.9 (0.2-1.3) mg/dL AST 28 (14-36) IU/L ALT 46 H (<35) IU/L Alkaline Phosphatase 269 H (38-126) U/L Total Protein 7.0 (6.3-8.2) g/dL Albumin 3.7 (3.5-5.0) g/dL Globulin 3.3 (1.7-4.1) g/dL Albumin/Globulin Ratio 1.1 (1.0-2.8) Urine Color Yellow Urine Appearance Clear Urine pH 6.5 (4.5-8.0) Ur Specific [place] <=1.005 (1.000-1.035) Urine Protein Negative (Negative) Urine Glucose (UA) Negative (Negative) g/dL Urine Ketones Negative (NEGATIVE) Urine Occult Blood Trace-intact (Negative) Urine Nitrate Negative (Negative) Urine Bilirubin Negative (NEGATIVE) Urine Urobilinogen 0.2 (0.2) E.U./dL Ur Leukocyte Esterase 3+ H (NEGATIVE) Urine RBC 0-1/hpf (0-5/HPF) Urine WBC 5-10/hpf H (0-5/HPF) Ur Squamous Epith Cells 1-5 /hpf (0-5/HPF) Amorphous Sediment 1+ Urine Bacteria Many (>30) H (None) Ur Culture Indicated? Specimen cultured Vol Urine Centrifuged 10ml (spun) Imaging Data CT scan - abdomen/pelvis: Radiologist's Impression: [address] [address] [address] Scan Report Signed Patient: Emani Leiva MR#: [id number] : 1950 Acct:[id number] Age/Sex: 74 / F Date of Service: 03/15/25 Loc: ED Accession Number: [id number] Procedure: CT abdomen pelvis w con Ordering Provider: Bassam Sears MD PROCEDURE: CT ABDOMEN PELVIS W CON INDICATIONS: Abdominal pain, some tenderness, left greater than right low TECHNIQUE: After the administration of intravenous contrast, axial sections acquired from the lung bases to the pubic symphysis. Coronal and sagittal reformats were performed. For radiation dose reduction, the following was used: automated exposure control, adjustment of mA and/or kV according to patient size. COMPARISON: [facility], CT, CT ABDOMEN PELVIS W CON, 02/28/2025, 19:42. FINDINGS: Image quality: Diagnostic. Lower Chest: No significant findings. ABDOMEN: Liver: No solid mass. Gallbladder: Surgically absent Biliary ducts: Persistent biliary dilation, likely due to post cholecystectomy state.. Pancreas: No ductal dilation. Spleen: Size is within normal limits. Adrenal Glands: No adrenal nodules. Kidneys and Ureters: Atrophic left kidney with cortical calcifications, similar to prior. No hydronephrosis. No solid mass. No complex renal cystic lesion which requires follow up. Stomach and Bowel: Normal colonic caliber, without significant wall thickening. Peritoneum: No abnormal intraperitoneal fluid. No free air. Ventral Wall: No significant ventral hernia. Abdominal Nodes: No retroperitoneal or mesenteric adenopathy by size criteria. Vessels: Aorta and inferior vena cava are normal in size. Dense aorto bi iliac atherosclerotic calcifications. PELVIS: Pelvic Organs: Unremarkable. Bladder: No bladder wall thickening, accounting for underdistention. Pelvic Nodes: No enlarged lymph nodes. Miscellaneous: No inguinal hernias are seen. Bones: No aggressive osseous abnormality. Multiple chronic lower thoracic and lumbar compression fractures and kyphoplasty changes, unchanged from prior. IMPRESSION: No acute abdominopelvic process. Approved by: Jennifer Landa M.D.,Ph.D. on 03/15/2025 at 20:45 MDM Narrative Medical decision making narrative: 74-year-old female with history of recurrent UTI, has 2 days duration increasing lower abdominal pain [id number]-right, with foul-smelling urine. UA pending. Afebrile, sirs screen negative. Some tenderness left lower quadrant more so than right lower quadrant on examination, nonrigid. Labs pending, including urinalysis. Lab data: White blood cell count 7800, hemoglobin 10.4, platelets adequate. Glucose 79. BUN 13 with creatinine 0.92 normal renal function. Serum CO2 decreased 17 noted. Sodium 129 low, potassium level normal. Alkaline phosphatase 269, ALT 46, AST 28, total bilirubin 0.9. Urinalysis pending. Tenderness on examination, GFR favorable, UA still pending. CT abdomen and pelvis with IV contrast ordered. CT abdomen and pelvis shows no acute changes. See radiology report. Urine suspicious for infection, urine culture reflex pending. IV ceftriaxone. Cefdinir antibiotic prescription sent to her requested pharmacy. Consider admission. Patient expresses reluctance to go home, feels unsafe in her current situation. Seems to offer no alternative disposition plans. teleservices representative consult requested. [phone], signed out to oncoming ED shift physician. teleservices representative consult later today per patient request. Antibiotics have been sent to her pharmacy for further treatment of urinary tract infection. Discharge Plan Departure Clinical Impression: Urinary tract infection Prescriptions: New cefdinir 300 mg capsule 300 mg PO BID 10 Days Qty: 20 0RF No Action Ensure Plus 0.05 gram- 1.5 kcal/mL liquid 1 ea PO TID Qty: 5688 6RF Rx Instructions: Chocolate flavor is requested. diclofenac sodium 1 % gel 2 g topical 4XD PRN (Reason: pain) Qty: 100 0RF pantoprazole [Protonix] 40 mg tablet,delayed release (DR/EC) 40 mg PO DAILY Qty: 90 3RF metoprolol tartrate 25 mg tablet 25 mg PO BID Qty: 180 1RF Rx Instructions: Take 1 Tablet PO BID ferrous sulfate [FeroSul] 325 mg (65 mg iron) tablet 325 mg PO DAILY Qty: 30 0RF thiamine mononitrate (vit B1) 100 mg tablet 100 mg PO DAILY Patient Comments: Pt reports taking 1 tablet (100mg) total daily. aspirin [Adult Aspirin Regimen] 81 mg tablet,delayed release (DR/EC) 81 mg PO DAILY trazodone 50 mg tablet See Rx Instructions PO BEDTIME PRN (Reason: insomnia) Qty: 60 5RF Rx Instructions: 1-2 tablets nightly as needed for sleep cephalexin 500 mg capsule 500 mg PO QID Qty: 12 0RF oxycodone 5 mg capsule 5 mg PO Q8H PRN (Reason: pain) Qty: 15 0RF Referrals: Edil Crouch PA-C [Primary Care Provider, Medical]
[2025-03-15] MEDS: ONDANSETRON 4 MG/2 ML INJ IV (19:13)
[2025-03-15 20:21] LABS: Appearance Urine UA CLEAR; Bilirubin Urine UA NEGATIVE (NEGATIVE); Color Urine UA YELLOW; Glucose Urine UA NEGATIVE (Negative); Ketones Urine UA NEGATIVE (NEGATIVE); Leukocyte Esterase Urine UA 3+ (NEGATIVE); Nitrite Urine UA NEGATIVE (Negative); Occult Blood Urine UA TRACE-INTACT (Negative); Protein Urine UA NEGATIVE (Negative); Specific Gravity Urine UA <=1.005 (1.000-1.035); Urobilinogen Urine UA 0.2 E.U./dL (0.2)
[2025-03-15 20:34] LABS: pH Urine UA 6.5 (4.5-8.0)
[2025-03-15 20:36] LABS: Culture Indicated Urine Specimen Cultured
--- NOTE | 2025-03-15 21:20 | PC.NURSE ---
Pt states that she's not safe to go home. States that the man who owns the house who is supposed to be caring for her, is not. She states that she pays $1100/month for room/board but I haven't eaten in a week. Dr Sears aware, plan for [employer] consult in am. Pt given food and drink.
[2025-03-16] VITALS (10 sets, daily range): BP systolic 129–168; BP diastolic 63–77; PULSE 66–93; RESP 14–18; TEMP 36.1–36.2; O2SAT 98–100; BMI 19.0
--- NOTE | 2025-03-16 00:23 | PC.NURSE ---
Boarding in ED for ENERGY SCHEDULER consult. pt moved from ER stretcher to a hospital bed. Brief changed, cleaned and placed a purewick. call light within reach for patient. JESUS aguilar
[2025-03-16] MEDS: OXYCODONE/ACETAMINOPHEN 5/325 TABLET 1 TAB PO (01:46)
[2025-03-16] MEDS: PHENAZOPYRIDINE 100 MG TABLET PO (01:47)
[2025-03-16] MEDS: IBUPROFEN 400 MG TABLET PO (04:51)
--- NOTE | 2025-03-16 08:15 | PC.NURSE ---
Pt requesting pain meds, stating I can't eat without my pain meds first. Informed pt that provider will be informed, asked if pt wanted help with feeding while pt's breakfast is warm, pt refused making repeated requests for pain meds, I need Dilaudid before I can eat my breakfast. Informed provider of pt's request for pain meds.
--- NOTE | 2025-03-16 13:08 | PC.NURSE ---
Dr. Kiran aware of urine results. will order antibiotics for a UTI
--- NOTE | 2025-03-16 13:23 | ED_ITS ---
HPI - Back Pain/Injury General Chief Complaint: Back Pain/Injury Stated Complaint: poss UTI Time Seen by Provider: 03/15/25 18:35 Source: patient and EMS Related Data Home Medications ?Medication ?Instructions ?Recorded ?Confirmed aspirin 81 mg tablet,delayed 81 mg PO DAILY 04/13/24 0 03/01/25 release (Adult Aspirin Regimen) thiamine mononitrate (vit B1) 100 100 mg PO DAILY 10/1703/16/25 mg tablet Previous Rx's ?Medication ?Instructions ?Recorded food supplemt, lactose-reduced 1 ea PO TID #5,688 mL 0 11/20/23 0.05 gram-1.5 kcal/mL oral liquid (Ensure Plus) diclofenac sodium 1 % topical gel 2 g topical 4XD PRN pain #100 grams 07/27/24 ferrous sulfate 325 mg (65 mg 325 mg PO DAILY #30 tabs 08/28/24 iron) tablet (FeroSul) pantoprazole 40 mg tablet,delayed 40 mg PO DAILY #90 t abs 09/23/24 release (Protonix) trazodone 50 mg tablet See Rx Instructions PO BEDTI ME PRN 10/06/24 insomnia #60 tabs metoprolol tartrate 25 mg tablet 25 mg PO BID #180 tab s 02/03/25 cephalexin 500 mg capsule 500 mg PO QID #12 caps 03/05 oxycodone 5 mg capsule 5 mg PO Q8H PRN pain #15 cap s 03/05/25 cefdinir 300 mg capsule 300 mg PO BID 10 days #20 ca ps 03/15/25 Allergies Allergy/AdvReac Type Severity Reaction Status Date / Time furosemide (From Lasix) Allergy Intermediate Rash Verified 03/15/25 15:31 tramadol (TRAMADOL) Allergy Unknown Verified 03/15/25 15:31 amitriptyline (AMITRIPTYLINE) AdvReac Intermediate Confusion Verified 03/15/25 15:31 duloxetine AdvReac Intermediate GI distress Verified 03/15/25 15:31 cyclobenzaprine AdvReac Dizziness Verified 03/15/25 15:31 Patient History Medical History Family history of colon cancer in father Closed fracture of left distal femur Immunodeficiency due to conditions classified elsewhere Age-related osteoporosis without current pathological fracture History of vertebral compression fracture GERD without esophagitis Primary osteoarthritis involving multiple joints Chronic low back pain Stage 3b chronic kidney disease (CKD) Mixed hyperlipidemia Essential hypertension Cerebrovascular disease Coronary artery disease Recurrent UTI Displaced comminuted fracture of shaft of tibia Septic shock Left rib fracture Closed left clavicular fracture Iron (Fe) deficiency anemia Nephrolithiasis Peptic ulcer disease History of osteomyelitis Fracture, tibia Left foot drop Numbness and tingling HLD (hyperlipidemia) C. difficile colitis Colitis Anxiety Insomnia Arthritis DJD (degenerative joint disease) Depression Fibromyalgia Migraines Multiple fractures Osteoporosis Radius fracture (08/30/17) Neuropathy History of recurrent UTIs Renal disease Hypertension Chronic pain GI bleeding Surgical History Hx of kyphoplasty (07/28/19) Hx of kyphoplasty (04/28/19) Hx of kyphoplasty (~2013) Hx of elbow surgery Hx of appendectomy Hx of cholecystectomy Status post epidural steroid injection (03/25/19) H/O: hysterectomy Hx of tonsillectomy History of surgery Family History Mother No known health problems COPD (chronic obstructive pulmonary disease) Father No known health problems Social History household members: significant other Smoking Status: Former smoker alcohol intake: current Smoking Status: Former smoker tobacco type: vaping alcohol intake frequency: holidays/special occasions only Exam Initial Vital Signs Initial Vital Signs: Vital Signs Pulse Rate 89 03/15/25 15:24 Blood Pressure 143/85 H 03/15/25 15:24 Pulse Oximetry 99 03/15/25 15:24 Course Orders Ordered: ED Orders 03/16/25 11:02 Consult to Physical Therapy Evaluate & Treat Hydromorphone HCl (Hydromorphone 1 Mg Inj) 1 mg IV Q3H PRN PRN Reason: Pain, Moderate (4-6) Last Admin: 03/16/25 18:14 Dose: 1 mg Documented By: BT Ceftriaxone Sodium 1,000 mg/ (Sodium Chloride) 100 mls @ 200 mls/hr IV Q24H LACY Last Admin: 03/16/25 14:25 Dose: Not Given Documented By: ES Metoprolol Tartrate (Metoprolol Ir 25 Mg Tablet) 25 mg PO BID LACY Naloxone HCl (Naloxone 0.4 Mg/Ml Vial) 0.2 mg IV Q2MIN PRN PRN Reason: Opiate Reversal Oxycodone HCl (Oxycodone Ir 5 Mg Tablet) 5 mg PO Q8H PRN PRN Reason: pain Last Admin: 03/16/25 14:14 Dose: 5 mg Documented By: LONNY Oxycodone HCl (Oxycodone Ir 10 Mg Tablet) 10 mg PO Q3HR PRN PRN Reason: Pain, Severe (7-10) Pantoprazole Sodium (Pantoprazole Dr 40 Mg Tablet) 40 mg PO DAILY LACY Thiamine HCl (Thiamine 100 Mg Tablet) 100 mg PO DAILY LACY Trazodone HCl (Trazodone 50 Mg Tablet) 50 mg PO BEDTIME PRN PRN Reason: Insomnia Discontinued Medications Hydromorphone HCl (Hydromorphone Hcl 0.5 Mg/0.5 Ml Syringe) 0.5 mg IV NOW ONE Stop: 03/15/25 19:00 Last Admin: 03/15/25 19:13 Dose: 0.5 mg Documented By: Hydromorphone HCl (Hydromorphone Hcl 0.5 Mg/0.5 Ml Syringe) 0.5 mg IV NOW ONE Stop: 03/16/25 08:16 Last Admin: 03/16/25 08:47 Dose: 0.5 mg Documented By: CHRISTIE Hydromorphone HCl (Hydromorphone Hcl 0.5 Mg/0.5 Ml Syringe) 0.5 mg IV NOW ONE Stop: 03/16/25 10:36 Last Admin: 03/16/25 13:13 Dose: Not Given Documented By: ZAIRA Ceftriaxone Sodium 1,000 mg/ (Sodium Chloride) 100 mls @ 200 mls/hr IV NOW ONE Stop: 03/15/25 20:47 Last Infusion: 03/15/25 22:02 Dose: Infused Documented By: Admin: 03/15/25 21:11 Dose: 200 mls/hr Documented By: POTASSIUM CHLORIDE IN WATER (Potassium Cl 10 Meq/100 Ml Shavon) 10 meq in 100 mls @ 100 mls/hr IV Q1H [facility] Stop: 03/16/25 12:44 Last Admin: 03/16/25 11:05 Dose: Not Given Documented By: ZAIRA Ceftriaxone Sodium 1,000 mg/ (Sodium Chloride) 100 mls @ 200 mls/hr IV NOW ONE Stop: 03/16/25 13:48 Last Infusion: 03/16/25 14:52 Dose: Infused Documented By: Admin: 03/16/25 14:15 Dose: 200 mls/hr Documented By: LONNY Ibuprofen (Ibuprofen 400 Mg Tablet) 400 mg PO NOW ONE Stop: 03/16/25 04:18 Last Admin: 03/16/25 04:51 Dose: 400 mg Documented By: SHARITA Ondansetron HCl (Ondansetron 4 Mg/2 Ml Inj) 4 mg IV NOW ONE Stop: 03/15/25 19:00 Last Admin: 03/15/25 19:13 Dose: 4 mg Documented By: Oxycodone/Acetaminophen (Oxycodone/Acetaminophen 5/325 Tablet) 1 tab PO NOW ONE Stop: 03/16/25 01:13 Last Admin: 03/16/25 01:46 Dose: 1 tab Documented By: SHARITA Phenazopyridine HCl (Phenazopyridine 100 Mg Tablet) 100 mg PO NOW ONE Stop: 03/15/25 23:19 Last Admin: 03/16/25 01:47 Dose: 100 mg Documented By: SHARITA Vital Signs Vital signs: Vital Signs - 8 hr 03/16/25 06:00 03/16/25 10:11 Pulse Rate 84 93 H Respiratory Rate 16 Blood Pressure 160/76 H 141/63 H Pulse Oximetry 100 99 Oxygen Delivery Method Room Air Room Air MDM - Back Pain/Injury Lab Data 03/15/25 16:46 03/15/25 16:46 Labs: Lab Results 03/15/25 03/15/25 Range/Units 16:46 19:57 WBC 7.8 (4.5-11.0) X10^3/uL RBC 3.10 L (4.0-5.2) X10^6/uL Hgb 10.4 L (12.0-16.0) g/dL Hct 30.3 L (36-46) % MCV 97.7 (80-100) fL MCH 33.7 (26-34) PG MCHC 34.5 (30-36) % RDW 17.1 H (11.6-14.8) % Plt Count 346 (150-400) X10^3/uL Neut % (Auto) Not Reportable Lymph % (Auto) Not Reportable [place] % (Auto) Not Reportable Eos % (Auto) Not Reportable Baso % (Auto) Not Reportable Lymph # (Auto) Not Reportable [place] # (Auto) Not Reportable Baso # (Auto) Not Reportable Total Counted 100 Seg Neutrophils % 57.0 (38-70) % Lymphocytes % (Manual) 28.0 (25-45) % Monocytes % (Manual) 9.0 (2-11) % Eosinophils % (Manual) 2.0 (2-4) % Basophils % (Manual) 4.0 H (0-1) % Neutrophils # (Manual) 4446 ([phone]) /uL Platelet Estimate Adeq RBC Morphology See below Poikilocytosis 1+ H Anisocytosis 1+ H Sodium 129 L (137-145) mmol/L Potassium 3.6 (3.4-5.1) mmol/L Chloride 101 (98-107) mmol/L Carbon Dioxide 17 L (22-32) mmol/L BUN 13 (7-17) mg/dL Creatinine 0.92 (0.52-1.04) mg/dL Estimated GFR > 60 (>60) mL/min BUN/Creatinine Ratio 14.1 (6-22) Glucose 79 (70-99) mg/dL Calcium 8.9 (8.4-10.2) mg/dL Total Bilirubin 0.9 (0.2-1.3) mg/dL AST 28 (14-36) IU/L ALT 46 H (<35) IU/L Alkaline Phosphatase 269 H (38-126) U/L Total Protein 7.0 (6.3-8.2) g/dL Albumin 3.7 (3.5-5.0) g/dL Globulin 3.3 (1.7-4.1) g/dL Albumin/Globulin Ratio 1.1 (1.0-2.8) Urine Color Yellow Urine Appearance Clear Urine pH 6.5 (4.5-8.0) Ur Specific [place] <=1.005 (1.000-1.035) Urine Protein Negative (Negative) Urine Glucose (UA) Negative (Negative) g/dL Urine Ketones Negative (NEGATIVE) Urine Occult Blood Trace-intact (Negative) Urine Nitrate Negative (Negative) Urine Bilirubin Negative (NEGATIVE) Urine Urobilinogen 0.2 (0.2) E.U./dL Ur Leukocyte Esterase 3+ H (NEGATIVE) Urine RBC 0-1/hpf (0-5/HPF) Urine WBC 5-10/hpf H (0-5/HPF) Ur Squamous Epith Cells 1-5 /hpf (0-5/HPF) Amorphous Sediment 1+ Urine Bacteria Many (>30) H (None) Ur Culture Indicated? Specimen cultured Vol Urine Centrifuged 10ml (spun) Discharge Plan Departure Patient Disposition: Admitted as Observation Clinical Impression: History of sepsis Urinary tract infection Qualifiers: Urinary tract infection type: acute cystitis Hematuria presence: with hematuria Qualified Code(s): N30.01 - Acute cystitis with hematuria Admit Date/Time: 03/16/25 13:31 Admit Provider: Anthony Shafer
--- NOTE | 2025-03-16 13:55 | P.HP_ITS ---
History of Present Illness History of Present Illness Date Patient Seen: 03/16/25 Chief complaint: poss UTI failure to thrive Narrative: Chief complaint: Weakness failure to thrive neglect at home History of present illness: 74-year-old female recently admitted 2 weeks ago with acetaminophen overdose was discharged home but did not managed well became weekend and bed-bound. Returned to the emergency department could severely weakened state unable to care for self. Findings in the emergency department significant for pyuria and bacteriuria For past medical history past surgical history past family history and social history see bottom of the note: Review of systems: Patient reports anorexia and weight loss No headache diplopia No chest pains palpitations shortness for breath No abdominal pain No urinary symptoms Patient reports paresthesia and leg weakness Physical exam: Frail chronically ill elderly female appearing older than stated age HEENT unremarkable Heart sounds distant no murmurs Lung sounds distant no rales Abdomen nondistended bowel sounds present nontender Extremities no edema Neuro moves all extremities insufficient strength to get out of bed For objective laboratory and imaging please see bottom of the note: Assessment and plan: Failure to thrive to the point now becoming bed-bound and can not care for her also with UTI and chronic liver disease * Continue Rocephin for 3 doses (to have been completed) * Observation status * Placement and correction rehab * Moderate rehab potential Alcohol use disorder and previous overdose with acetaminophen 2 weeks ago * Accidental and has recovered * No signs of alcohol intoxication or withdrawal * On thiamine for prophylaxis against Wernicke-Korsakoff syndrome DVT prophylaxis: * Not a candidate for due to liver disease Code status: * Full code blue 35 minutes were involved in the assessment [id number] evaluation and physical examination review of history discussion with other physicians case management [facility] Medical History Family history of colon cancer in father Closed fracture of left distal femur Immunodeficiency due to conditions classified elsewhere Age-related osteoporosis without current pathological fracture History of vertebral compression fracture GERD without esophagitis Primary osteoarthritis involving multiple joints Chronic low back pain Stage 3b chronic kidney disease (CKD) Mixed hyperlipidemia Essential hypertension Cerebrovascular disease Coronary artery disease Recurrent UTI Displaced comminuted fracture of shaft of tibia Septic shock Left rib fracture Closed left clavicular fracture Iron (Fe) deficiency anemia Nephrolithiasis Peptic ulcer disease History of osteomyelitis Fracture, tibia Left foot drop Numbness and tingling HLD (hyperlipidemia) C. difficile colitis Colitis Anxiety Insomnia Arthritis DJD (degenerative joint disease) Depression Fibromyalgia Migraines Multiple fractures Osteoporosis Radius fracture (08/30/17) Neuropathy History of recurrent UTIs Renal disease Hypertension Chronic pain GI bleeding Surgical History Hx of kyphoplasty (07/28/19) Hx of kyphoplasty (04/28/19) Hx of kyphoplasty (~2013) Hx of elbow surgery Hx of appendectomy Hx of cholecystectomy Status post epidural steroid injection (03/25/19) H/O: hysterectomy Hx of tonsillectomy History of surgery Family History Mother No known health problems COPD (chronic obstructive pulmonary disease) Father No known health problems Social History household members: significant other Smoking Status: Former smoker alcohol intake: current Meds Home Medications and Allergies Home Medications ?Medication ?Instructions ?Recorded ?Confirmed ?Type food supplemt, lactose-reduced 1 ea PO TID #5,688 mL 0 11/20/23 03/01/25 Rx 0.05 gram-1.5 kcal/mL oral liquid (Ensure Plus) aspirin 81 mg tablet,delayed 81 mg PO DAILY 04/13/24 0 03/01/25 History release (Adult Aspirin Regimen) diclofenac sodium 1 % topical gel 2 g topical 4XD PRN pain #100 grams 07/27/24 03/01/25 Rx ferrous sulfate 325 mg (65 mg 325 mg PO DAILY #30 tabs 08/28/24 03/01/25 Rx iron) tablet (FeroSul) pantoprazole 40 mg tablet,delayed 40 mg PO DAILY #90 t abs 09/23/24 03/16/25 Rx release (Protonix) trazodone 50 mg tablet See Rx Instructions PO BEDTI ME PRN 10/06/24 03/16/25 Rx insomnia #60 tabs thiamine mononitrate (vit B1) 100 100 mg PO DAILY 10/1703/16/25 History mg tablet metoprolol tartrate 25 mg tablet 25 mg PO BID #180 tab s 02/03/25 03/16/25 Rx cephalexin 500 mg capsule 500 mg PO QID #12 caps 03/05 Rx oxycodone 5 mg capsule 5 mg PO Q8H PRN pain #15 cap s 03/05/25 03/16/25 Rx cefdinir 300 mg capsule 300 mg PO BID 10 days #20 ca ps 03/15/25 Rx Allergies Allergy/AdvReac Type Severity Reaction Status Date / Time furosemide (From Lasix) Allergy Intermediate Rash Verified 03/15/25 15:31 tramadol (TRAMADOL) Allergy Unknown Verified 03/15/25 15:31 amitriptyline (AMITRIPTYLINE) AdvReac Intermediate Confusion Verified 03/15/25 15:31 duloxetine AdvReac Intermediate GI distress Verified 03/15/25 15:31 cyclobenzaprine AdvReac Dizziness Verified 03/15/25 15:31 Exam Vital Signs (past 8 hours): - 03/16/25 06:00 03/16/25 10:11 Pulse Rate 84 93 H Respiratory Rate 16 Blood Pressure 160/76 H 141/63 H Pulse Oximetry 100 99 Oxygen Delivery Method Room Air Room Air Oxygen Delivery Method Room Air Objective Labs 03/15/25 16:46 03/15/25 16:46 Labs: Laboratory Results - last 24 hr 03/15/25 03/15/25 16:46 19:57 WBC 7.8 RBC 3.10 L Hgb 10.4 L Hct 30.3 L MCV 97.7 MCH 33.7 MCHC 34.5 RDW 17.1 H Plt Count 346 Neut % (Auto) Not Reportable Lymph % (Auto) Not Reportable [place] % (Auto) Not Reportable Eos % (Auto) Not Reportable Baso % (Auto) Not Reportable Lymph # (Auto) Not Reportable [place] # (Auto) Not Reportable Baso # (Auto) Not Reportable Total Counted 100 Seg Neutrophils % 57.0 Lymphocytes % (Manual) 28.0 Monocytes % (Manual) 9.0 Eosinophils % (Manual) 2.0 Basophils % (Manual) 4.0 H Neutrophils # (Manual) 4446 Platelet Estimate Adeq RBC Morphology See below Poikilocytosis 1+ H Anisocytosis 1+ H Sodium 129 L Potassium 3.6 Chloride 101 Carbon Dioxide 17 L BUN 13 Creatinine 0.92 Estimated GFR > 60 BUN/Creatinine Ratio 14.1 Glucose 79 Calcium 8.9 Total Bilirubin 0.9 AST 28 ALT 46 H Alkaline Phosphatase 269 H Total Protein 7.0 Albumin 3.7 Globulin 3.3 Albumin/Globulin Ratio 1.1 Urine Color Yellow Urine Appearance Clear Urine pH 6.5 Ur Specific [place] <=1.005 Urine Protein Negative Urine Glucose (UA) Negative Urine Ketones Negative Urine Occult Blood Trace-intact Urine Nitrate Negative Urine Bilirubin Negative Urine Urobilinogen 0.2 Ur Leukocyte Esterase 3+ H Urine RBC 0-1/hpf Urine WBC 5-10/hpf H Ur Squamous Epith Cells 1-5 /hpf Amorphous Sediment 1+ Urine Bacteria Many (>30) H Ur Culture Indicated? Specimen cultured Vol Urine Centrifuged 10ml (spun) Assessment & Plan Time-Based Coding :: [TOTAL MINUTES] spent with patient and on the chart (including review of chart, obtaining history, exam, reviewing outside data, placing orders, documenting exam and treatment plan, and counseling patient) on [DATE].
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
[2025-03-16] MEDS: OXYCODONE IR 5 MG TABLET PO (14:14)
--- NOTE | 2025-03-16 16:56 | PT.IIE ---
Surgical History (Last Reviewed 03/03/25 @ 09:01 by Master Bernabe MD) H/O: hysterectomy History of surgery Hx of appendectomy Hx of cholecystectomy Hx of elbow surgery Hx of kyphoplasty (~2013) Hx of kyphoplasty (04/28/19) Hx of kyphoplasty (07/28/19) Hx of tonsillectomy Status post epidural steroid injection (03/25/19) Medical History (Last Reviewed 03/03/25 @ 09:01 by Master Bernabe MD) Age-related osteoporosis without current pathological fracture Anxiety Arthritis C. difficile colitis Cerebrovascular disease Chronic low back pain Chronic pain Closed fracture of left distal femur Closed left clavicular fracture Colitis Coronary artery disease Depression Displaced comminuted fracture of shaft of tibia DJD (degenerative joint disease) Essential hypertension Family history of colon cancer in father Fibromyalgia Fracture, tibia GERD without esophagitis GI bleeding History of osteomyelitis History of recurrent UTIs History of vertebral compression fracture HLD (hyperlipidemia) Hypertension Immunodeficiency due to conditions classified elsewhere Insomnia Iron (Fe) deficiency anemia Left foot drop Left rib fracture Migraines Mixed hyperlipidemia Multiple fractures Nephrolithiasis Neuropathy Numbness and tingling Osteoporosis Peptic ulcer disease Primary osteoarthritis involving multiple joints Radius fracture (08/30/17) Recurrent UTI Renal disease Septic shock Stage 3b chronic kidney disease (CKD) Physical Therapy Inpatient Evaluation/Re-Eval M1 PT/OT-IP Prior Functional Status Start: 03/16/25 16:39 Freq: NEEDED Status: Active Protocol: Document 03/16/25 16:40 KJ (Rec: 03/16/25 16:56 KJ [id number]) Medical Review Prior Functional Status Medical History Yes Reviewed Mobility and Gait Primarily bed bound. Pt states she was able to transfer to/from commode by bearing wt on the RLEonly and bracing her legs back against the bed. Activities of Daily Had care in the home 5 hrs/day 5 days per week who Living and IADL's would give her a bed bath. Was not getting dressed - stayed in pajamas all day. Social History Household Members significant other Home Equipment Bedside Commode Additional Social Pt states she lives with significant other who does not History Comment help her. M2 PT-IP Current Condition Start: 03/16/25 16:39 Freq: NEEDED Status: Active Protocol: Document 03/16/25 16:40 KJ (Rec: 03/16/25 16:56 KJ [id number]) Physical Therapy Current Condition Current Condition Evaluation Date 03/16/25 Treatment Diagnosis Impaired mobility Onset Date 03/05/25 M3 PT-IP Subjective Start: 03/16/25 16:39 Freq: NEEDED Status: Active Protocol: Document 03/16/25 16:40 KJ (Rec: 03/16/25 16:56 KJ [id number]) Therapy Pain Assessment Pain When Pain Assessed During Mobility Pain Present Pain Present Pain Reported Location generalized Description Aching Pain Management Re-positioning Techniques midback Description Aching Pain Behaviors Facial Grimacing Pain Management Re-positioning Techniques M4 PT-IP Mobility and Gait Start: 03/16/25 16:39 Freq: NEEDED Status: Active Protocol: Document 03/16/25 16:40 KJ (Rec: 03/16/25 16:56 KJ [id number]) PT-Bed Mobility Assessment Rolling Type of Rolling Log Rolling,Bilateral Level of Assist Standby Assistance Supine to Sit Supine to Sit Independent Sit to Supine Sit to Supine Independent PT-Transfer Assessment Comments Mobility Comments standing and transfers deferred as patient states she is supposed to be non-weightbearing on both legs. Due to statement that her knees hyperextend in standing and she must brace them against the bed to prevent that, it may not be safe to stand her. Also, the sit to stand lift is not indicated at this time due to patient 's report of multiple compression fractures in the spine combined with her current malnutrition. Gait Assessment Comments Gait Comments Wheelchair dependent PT-Balance Assessment Sitting Balance and Reactions Static Sitting Normal Balance Ability Dynamic Sitting Good Balance Ability Comments Other Balance Tests/ Able to sit at eob for hair care and oral hygiene x 28 Deviations/Treatment min without lob : M5 PT-IP Objective Assessments Start: 03/16/25 16:39 Freq: NEEDED Status: Active Protocol: Document 03/16/25 16:40 KJ (Rec: 03/16/25 16:56 KJ [id number]) Orientation Orientation/Cognition Level of Alertness Alert Orientation Name,Age,Birthday,Situation Language Function No Deficits Noted Ability Safety Awareness Understands Safety Issues Memory Description No Deficits Noted Gross Range of Motion Upper Extremity ROM Impairments Shoulders decreased at end range. R elbow lacks full extension. Lower Extremity ROM Assessment Within Functional Limits Strength Upper Extremity Strength Shoulder R 3/5 flex, 3+/5 ext L 3+/5 Elbow R 4/5, L 4+/5 Hand nursing unit coordinator strength impaired bilat Lower Extremity Strength Hip WFL Knee unable to produce quad set in supine on L, sitting knee ext 4/5 R, 4-/5 L Ankle 5/5 bilat Comments Strength Comments strength tested within available limits Coordination Assessment Gross Coordination Gross Coordination WNL M6 PT-IP Treatment Start: 03/16/25 16:39 Freq: NEEDED Status: Active Protocol: Document 03/16/25 16:40 KJ (Rec: 03/16/25 16:56 KJ [id number]) Physical Therapy Treatment Education Education Provided Safety Other Treatments Other Treatment Instructed pt on benefits of bed mobility, discussed Performed recommendation of sitting up in chair for all meals and oral hygiene after all meals. Pt refused to be lifted (via overhead lift) up to chair for dinners as she was requesting more pain meds. M7 PT-IP Assessment and Plan Start: 03/16/25 16:39 Freq: NEEDED Status: Active Protocol: Document 03/16/25 16:40 KJ (Rec: 03/16/25 16:56 KJ [id number]) PT Summary Assessment and Plan Goals Other Goals Transfer and gait goals are on hold awaiting clarification of weightbearing status; if none provided I recommend using a mechanical lift for getting patient up to bedside chair 4x/day. Frequency of Treatment Frequency Of Once a Day Treatment Treatment Plan Physical Therapy Transfer Training,Therapeutic Exercise Treatment Plan Other Recommend pt be up in chair for all meals and perform Recommendations and oral hygiene after all meals, to increase her nutrition Next Treatment Focus in order to progress to mobility. Pt will need clarification of weight bearing status in BLEs Weight Bearing Status Allowed Weight Nonweightbearing BLE per patient report Bearing Amount ( enter % or #) (%) Recommendations To Nursing Amount of Assist Mechanical Lift Needed Discharge Recommendations Other Discharge if patient can improve her nutrition and we can get Recommendations clarification of her weight bearing status, she may be able to progress her mobility and participate in SNF for rehab Transportation Needs Wheelchair/Cabulance at Discharge
--- NOTE | 2025-03-16 17:34 | CM.DPC ---
Discharge Plan Continued BUILDING MANAGER informs [facility] Process Control Technician of patient's admission and cancelation of PCP appt. BUILDING MANAGER requests to relay this information to [facility]. BUILDING MANAGER faxes PT eval to [facility] and [facility]. PT recommends SNF if patient improves nutrition and PT needs to inquire further about patient's weight bearing status. Plan: DCP to f/u with SNF rehab facilities, [facility] and PT. MARIKA Dave
[2025-03-16] MEDS: HYDROMORPHONE 1 MG INJ IV (18:14)
[2025-03-16] MEDS: METOPROLOL IR 25 MG TABLET PO (21:11)
[2025-03-16] MEDS: OXYCODONE IR 10 MG TABLET PO (22:45)
[2025-03-17] MEDS: OXYCODONE IR 10 MG TABLET PO ×8 (01:17→23:55)
[2025-03-17] MEDS: HYDROMORPHONE 1 MG INJ IV ×2 (06:42→22:21)
[2025-03-17 07:32] VITALS: BP 119/62; PULSE 67; RESP 18; TEMP 36.6; O2SAT 100
[2025-03-17] MEDS: METOPROLOL IR 25 MG TABLET PO ×2 (08:40→20:56)
[2025-03-17] MEDS: THIAMINE 100 MG TABLET PO (08:40)
[2025-03-17] MEDS: PANTOPRAZOLE DR 40 MG TABLET PO (08:40)
[2025-03-17] MEDS: LACTULOSE 20 GM/30 ML SOLUTION PO (09:32)
--- NOTE | 2025-03-17 10:31 | DIET.CONS ---
Dietary Consultation Note Admission Date: 03/16/2025 13:31 Assessment: 74 y F admitted for failure to thrive. Dietitian consulted for malnourished per MNA score. Met with pt at bedside, confirms has not had anything to eat in last week d/t feeling ill and heaving. Minimal appetite before then. Reports appetite is improving and does still want to work on small freq meals, again, is not interested in ONS options. PMH of chronic protein calorie malnutrition r/t to inadequate oral intakes (usual diet recall is just 1 can of soup and some crackers and cream cheese) and alcohol use disorder and acetaminophen overdose 2 weeks ago Nutrition focused physical exam performed with severe muscle wasting in temples, deltoid, interosseous and severe subcutaneous fat loss in buccal and orbital fat pads and triceps Ht: 154.94 cm Wt: 45.677 kg BMI: 19.0 UBW: 48.988 kg on 02/14/25 (-7% weight loss in 1 month, severe) Last BM: 03/14/25 (03/16/25 18:18) MNA: 7 Jaswant Score: 17 Diet: 03/16/25 Breakfast General (Regular) Diet Diet Modifications: Food Texture: Level 7 - Regular Liquid Consistency: Level 0 - Thin 03/16/25 Dinner General (Regular) Diet Diet Modifications: Nutrition Percent Meal Consumed refused to eat does not feeling 03/16/25 18:00 eating Labs: RBC 3.10 X10^6/uL (4.0-5.2) L 03/15/25 16:46 Hgb 10.4 g/dL (12.0-16.0) L 03/15/25 16:46 Hct 30.3 % (36-46) L 03/15/25 16:46 Creatinine 0.92 mg/dL (0.52-1.04) 03/15/25 16:46 Nutrition Diagnosis: Severe acute on chronic Protein Calorie Malnutrition r/t unable to care for self and minimal appetite as evidenced by 7% weight loss in 1 month (severe), BMI chronically underweight for age (19.0), no food intake for 1 week (severe) and <50% of estimated energy needs for >6 months per diet recall (severe), severe muscle mass wasting (temporalis, deltoids, interosseous), failure to thrive and hx of alcohol use disorder Interventions: -Pt denies Ensures or protein smoothie drinks, open to Persian yogurts and cottage cheese frequently between meals and as bedtime snack; added to nurses fridge -Soft foods only, can only do fish with sauce - no eggs, beef, chk -coordinated with unit host -Will trial Ensure clear, unable to f/u on tolerance last admission d/t pt d/c EER: 1600 kcals (35 kcals/kg per BMI) 70 g protein (1.5 g/kg per PCM) Monitoring/Evaluations: PO intakes, bedtime/snack frequency, Ensure clear tolerance Electronically Signed by: Keysha Campos 03/17/25 10:31 Clinical Dietitian [address] [id number]
--- NOTE | 2025-03-17 11:20 | P.PN_ITS ---
Subjective Subjective Date Patient Seen: 03/17/25 Interval history: Chief complaint: Weakness failure to thrive neglect at home History of present illness: 03/16: 74-year-old female recently admitted 2 weeks ago with acetaminophen overdose was discharged home but did not managed well became weekend and bed- bound. Returned to the emergency department could severely weakened state unable to care for self. Findings in the emergency department significant for pyuria and bacteriuria For past medical history past surgical history past family history and social history see bottom of the note: 03/17: Pain control is more satisfactory today working with physical therapy tolerating dietary supplements Review of systems: Patient reports anorexia and weight loss No headache diplopia No chest pains palpitations shortness for breath No abdominal pain No urinary symptoms Patient reports paresthesia and leg weakness Physical exam: Frail chronically ill elderly female appearing older than stated age HEENT unremarkable Heart sounds distant no murmurs Lung sounds distant no rales Abdomen nondistended bowel sounds present nontender Extremities no edema Neuro moves all extremities insufficient strength to get out of bed For objective laboratory and imaging please see bottom of the note: Assessment and plan: Failure to thrive to the point now becoming bed-bound and can not care for her also with UTI and chronic liver disease * Continue Rocephin for 3 doses (to have been completed) * Observation status to inpatient if required * Placement and [facility] rehab * Moderate rehab potential Severe acute on chronic Protein Calorie Malnutrition r/t unable to care for self and minimal appetite as evidenced by 7% weight loss in 1 month (severe), BMI chronically underweight for age (19.0), no food intake for 1 week (severe) and <50% of estimated energy needs for >6 months per diet recall (severe), severe muscle mass wasting (temporalis, deltoids, interosseous), failure to thrive and hx of alcohol use disorder * Dietary supplementation and full monitoring and evaluation of caloric recovery needs per dietary service Alcohol use disorder and previous overdose with acetaminophen 2 weeks ago * Accidental and has recovered * No signs of alcohol intoxication or withdrawal * On thiamine for prophylaxis against Wernicke-Korsakoff syndrome DVT prophylaxis: * Not a candidate for due to liver disease Code status: * Full code blue 35 minutes were involved in the assessment [id number] evaluation and physical examination review of history discussion with other physicians case management Exam Vital Signs (past 8 hours): - 03/17/25 07:32 Temperature 97.8 F Pulse Rate 67 Respiratory Rate 18 Blood Pressure 119/62 Pulse Oximetry 100 Oxygen Flow Rate 0 Oxygen Delivery Method Room Air Oxygen Flow Rate 0 Objective Labs 03/15/25 16:46 03/15/25 16:46 [facility] Medical History Family history of colon cancer in father Closed fracture of left distal femur Immunodeficiency due to conditions classified elsewhere Age-related osteoporosis without current pathological fracture History of vertebral compression fracture GERD without esophagitis Primary osteoarthritis involving multiple joints Chronic low back pain Stage 3b chronic kidney disease (CKD) Mixed hyperlipidemia Essential hypertension Cerebrovascular disease Coronary artery disease Recurrent UTI Displaced comminuted fracture of shaft of tibia Septic shock Left rib fracture Closed left clavicular fracture Iron (Fe) deficiency anemia Nephrolithiasis Peptic ulcer disease History of osteomyelitis Fracture, tibia Left foot drop Numbness and tingling HLD (hyperlipidemia) C. difficile colitis Colitis Anxiety Insomnia Arthritis DJD (degenerative joint disease) Depression Fibromyalgia Migraines Multiple fractures Osteoporosis Radius fracture (08/30/17) Neuropathy History of recurrent UTIs Renal disease Hypertension Chronic pain GI bleeding Surgical History Hx of kyphoplasty (07/28/19) Hx of kyphoplasty (04/28/19) Hx of kyphoplasty (~2013) Hx of elbow surgery Hx of appendectomy Hx of cholecystectomy Status post epidural steroid injection (03/25/19) H/O: hysterectomy Hx of tonsillectomy History of surgery Family History Mother No known health problems COPD (chronic obstructive pulmonary disease) Father No known health problems Social History household members: significant other Smoking Status: Former smoker alcohol intake: current Assessment & Plan Time-Based Coding :: [TOTAL MINUTES] spent with patient and on the chart (including review of chart, obtaining history, exam, reviewing outside data, placing orders, documenting exam and treatment plan, and counseling patient) on [DATE]. Quality VTE Deep Vein Thrombosis/Pulmonary Embolism Present on Admission: No
--- NOTE | 2025-03-17 11:27 | CM.DPC ---
DCP Cont. Reviewed EMR and team rounds for pt's status updates. Faxed PT note to [facility] for [facility]. Returned call to her [facility] showcase maker Nicole , confirmed that we are working at SNF rehab placement, and that she will need LTC, but we are not currently working on that piece. Called pt's [facility] CM, Deborah , discussed a plan to roll her KIZZY into LTC, and provided the contact info for her to call [facility] and [facility] to see if we can start as rehab, then move into LTC with her Medicaid benefit. She will keep us updated. Will need to fax OT eval to the SNF once available.
--- NOTE | 2025-03-17 12:43 | OT.IPNOTE ---
Spoke with CM and pt not appropriate for OT. Prior pt just able to do grooming/oral care need and has assist for all other ADL needs. Pt is at her baseline for OT needs. Therefore discharge OT eval orders.
--- NOTE | 2025-03-17 14:02 | DI.CT.S_ITS ---
PROCEDURE: CT LE LT W CON INDICATIONS: Distal femur fracture TECHNIQUE: Noncontrast 3 mm axial sections acquired of the left femur, with coronal and sagittal reformats. COMPARISON: [facility], CT, CT ABDOMEN PELVIS W CON, 03/15/2025, 19:11. [facility], CR, XR KNEE LT 3V, 02/01/2025, 18:08. [facility], CT, CT LE LT WO CON, 02/01/2025, 10:51. FINDINGS: Image quality: Excellent. Bones: Intramedullary medardo with interlocking screws, transfixing a healing distal femur metadiaphysis fracture, in near anatomic alignment. No hardware complication. Intramedullary medardo with interlocking screw of the tibia, partially visualized. Chronic nondisplaced fracture of the left puboacetabular junction (02:19), grossly unchanged. Chronic fracture the left inferior pubic ramus, unchanged from prior exam. Soft tissues: The small bowels in the pelvis is fluid filled, and mildly dilated, partially visualized, raising concern for ileus, new from prior CT on 03/15/2025. Extruded contrast seen in the bladder. Mild gaseous distension of the rectum. No left knee effusion. Moderate fatty atrophy of the anterior aspect of the left gluteal minimus muscle. IMPRESSION: 1. Intramedullary medardo with interlocking screws, transfixing a healing distal femur metadiaphysis fracture. No hardware complication. 2. Intramedullary medardo with interlocking screw of the tibia, partially visualized. 3. Chronic fracture of the left puboacetabular junction and the left inferior pubic ramus, unchanged. 4. The small bowels are fluid filled and mildly dilated, partially visualized, raising concern for ileus, new from prior CT on 05/16/2025. Small bowel obstruction cannot be excluded. Dictated by: Yvonne Cosby M.D. on 03/17/2025 at 15:24 Approved by: Yvonne Cosby M.D. on 03/17/2025 at 15:34
[2025-03-17] MEDS: ONDANSETRON 4 MG/2 ML INJ IV (14:41)
--- NOTE | 2025-03-17 15:56 | PT-IP ANOTE ---
Per PT eval yesterday: pt informed that she is not supposed to put weight of her legs. Clarification needed today for weight bearing status. talked with pt and pt stated that she saw Dr. Marino ~ 2 weeks ago and was referred to [facility] for repair of previous LLE sx and that she is not to put weight on LLE. EMR reviewed and Dr. 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 Called Dr. Marino's office for clarification for weight bearing status on LLE and PT was informed that weight bearing clarification should come from [facility]. informed pt and pt stated that she has followed up with [facility] afte she saw Dr. Marino. Informed hospitalist and informed PT that he will ask for imaging and an ortho consult here in the hospital but at this time, pt will be NWB on LLE. updated pt and informed that pt will be NWB on LLE until further clarification but pt refused PT today. pt stated that she has not moved her bowels for a few days and was just given something for it and currently having abdominal discomfort and does not want to do PT. will f/u
[2025-03-17 20:09] VITALS: BP 134/76; PULSE 67; RESP 16; TEMP 36.4; O2SAT 97
--- NOTE | 2025-03-17 21:55 | PM.HP.IH.1 ---
History of Present Illness History of Present Illness Chief complaint: poss UTI failure to thrive PFSH Medical History Family history of colon cancer in father Closed fracture of left distal femur Immunodeficiency due to conditions classified elsewhere Age-related osteoporosis without current pathological fracture History of vertebral compression fracture GERD without esophagitis Primary osteoarthritis involving multiple joints Chronic low back pain Stage 3b chronic kidney disease (CKD) Mixed hyperlipidemia Essential hypertension Cerebrovascular disease Coronary artery disease Recurrent UTI Displaced comminuted fracture of shaft of tibia Septic shock Left rib fracture Closed left clavicular fracture Iron (Fe) deficiency anemia Nephrolithiasis Peptic ulcer disease History of osteomyelitis Fracture, tibia Left foot drop Numbness and tingling HLD (hyperlipidemia) C. difficile colitis Colitis Anxiety Insomnia Arthritis DJD (degenerative joint disease) Depression Fibromyalgia Migraines Multiple fractures Osteoporosis Radius fracture (08/30/17) Neuropathy History of recurrent UTIs Renal disease Hypertension Chronic pain GI bleeding Surgical History Hx of kyphoplasty (07/28/19) Hx of kyphoplasty (04/28/19) Hx of kyphoplasty (~2013) Hx of elbow surgery Hx of appendectomy Hx of cholecystectomy Status post epidural steroid injection (03/25/19) H/O: hysterectomy Hx of tonsillectomy History of surgery Family History Mother No known health problems COPD (chronic obstructive pulmonary disease) Father No known health problems Social History household members: significant other Smoking Status: Former smoker alcohol intake: current Meds Home Medications and Allergies Home Medications ?Medication ?Instructions ?Recorded ?Confirmed ?Type food supplemt, lactose-reduced 1 ea PO TID #5,688 mL 11/20/23 03/01/25 Rx 0.05 gram-1.5 kcal/mL oral liquid (Ensure Plus) aspirin 81 mg tablet,delayed 81 mg PO DAILY 04/13/24 03/01/25 History release (Adult Aspirin Regimen) diclofenac sodium 1 % topical gel 2 g topical 4XD PRN pain #100 grams 07/27/24 03/01/25 Rx ferrous sulfate 325 mg (65 mg 325 mg PO DAILY #30 tabs 08/28/24 03/01/25 Rx iron) tablet (FeroSul) pantoprazole 40 mg tablet,delayed 40 mg PO DAILY #90 tabs 09/23/24 03/16/25 Rx release (Protonix) trazodone 50 mg tablet See Rx Instructions PO BEDTIME PRN 10/06/24 03/16/25 Rx insomnia #60 tabs thiamine mononitrate (vit B1) 100 100 mg PO DAILY 11/03/24 03/16/25 History mg tablet metoprolol tartrate 25 mg tablet 25 mg PO BID #180 tabs 02/03/25 03/16/25 Rx cephalexin 500 mg capsule 500 mg PO QID #12 caps 03/05/25 Rx oxycodone 5 mg capsule 5 mg PO Q8H PRN pain #15 caps 03/05/25 03/16/25 Rx cefdinir 300 mg capsule 300 mg PO BID 10 days #20 caps 03/15/25 Rx Allergies Allergy/AdvReac Type Severity Reaction Status Date / Time furosemide (From Lasix) Allergy Intermediate Rash Verified 03/15/25 15:31 tramadol (TRAMADOL) Allergy Unknown Verified 03/15/25 15:31 amitriptyline (AMITRIPTYLINE) AdvReac Intermediate Confusion Verified 03/15/25 15:31 duloxetine AdvReac Intermediate GI distress Verified 03/15/25 15:31 cyclobenzaprine AdvReac Dizziness Verified 03/15/25 15:31 Exam Vital Signs (past 8 hours): - 03/17/25 20:09 Temperature 97.5 F L Pulse Rate 67 Respiratory Rate 16 Blood Pressure 134/76 Pulse Oximetry 97 Oxygen Flow Rate 0 Oxygen Delivery Method Room Air Oxygen Flow Rate 0 Objective Labs 03/15/25 16:46 03/15/25 16:46 Assessment & Plan Assessment and plan (1) Closed fracture of left distal femur: Qualifiers: Encounter type: subsequent encounter Fracture morphology: unspecified fracture morphology Fracture healing: with routine healing Qualified Code(s): S72.402D - Unspecified fracture of lower end of left femur, subsequent encounter for closed fracture with routine healing Status: Acute (2) Osteoarthritis of left knee: Status: Acute Assessment & Plan narrative: CC: LEFT Knee Pain HPI: 74yo F with a past medical history of hypertension, hyperlipidemia, CAD, cerebrovascular disease, GERD, chronic kidney disease, depression and fibromyalgia presents to the emergency department for severe weakness and unable to care for self.? Her recent past medical history includes a Tylenol overdose approximately 2 weeks ago that she was hospitalized for and then discharge to home. Her history is also complicated with the fact that she has had a left femur fracture that was been treated with intramedullary nail sometime in 2023 at [facility].? In January she was hospitalized and a CT scan of her left femur was obtained.? There was concern for a nonunion has so she was instructed to be nonweightbearing over the last month. She has seen Dr. Carpio for multiple different orthopedic problems in the past. She had recommended returning to [facility] for potential revision of her left femur. Ms. Leiva?? Reported today that she has not ambulated on her own for over 5 years.? She always required some sort of assistance by a caregiver.? She has not ambulated at all since the femur fracture over a year ago.? She continues to do home exercises with range of motion of the hip and knee.? She is required to place some weight on the left lower extremity when she uses a bedside commode.? She reports continued left knee pain with all motion and weight-bearing activities. EXAM: LEFT lower extremity: Inspection: No erythema, swelling, bruising, atrophy. Hip ROM 0 to 100 without pain. IR 10, ER 20 No pain with resisted SLR. Neg gentle logroll. No pain at greater trochanter. LEFT Knee: Well appearing, No acute distress. Varus alignment Inspection: No erythema, swelling, bruising, atrophy Palpation: ??Reports pain with palpation throughout the entire knee. ROM: 0-120 ??Without hesitation, Firm endpoint to varus/valgus ?No significant pain with Shuck through the fracture site. Neurovascular exam: ??Fires q/h/ta/gc/ehl; SILT s/s/sp/dp/t, 2+ dp IMAGING: Left lower extremity CT scan on March 17, 2025:? Evidence of healing distal femur fracture that has been fixed with an intramedullary nail and interlocking bolts with 1 proximal and 3 distal.? She also has evidence of a intramedullary nail in her tibia.? There is a chronic appearing injury of the left inferior pubic ramus and the superior pubic ramus as it enters the acetabulum. 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 ?It appears that she has some interval healing on the CT scan.? There is no obvious pain with attempted shucking of the fracture site.? However she does report pain in the knee.? It is hard to determine whether or not her ongoing pain is from a nonunion at the fracture site versus her left knee osteoarthritis. ? At this point I would recommend progressive weight-bearing on the left lower extremity while working with physical therapy.? She has not independently walked in over 5 years however it is important for her to maintain her balance and strength.? I would recommend that Physical therapy see her daily and she works on sitting at the edge of the bed and in a chair, standing and pivoting. PLAN: ? Progressive weight-bearing -with the goal of weightbearing as tolerated ?physical therapy consult ?she will likely require SNF placement. ? Please contact Orthopedics if there is any further questions. ? Follow up with Orthopedics 2 weeks after discharge -?? She can either follow up with Dr. Smith or Dr. Salamanca-? ultimately if she would like a ?revision of her left femoral nail she should return to [facility]. The patient had the treatment plan explained, questions answered and seemed satisfied with the plan. There were no apparent barriers to communication. The documentation in this note may have been entered with the assistance of computer voice recognition and dictation software. Therefore, it may contain unintended errors in text, spelling, punctuation, or grammar. Mike Salamanca MD Orthopaedic Surgeon Time-Based Coding :: 45 spent with patient and on the chart (including review of chart, obtaining history, exam, reviewing outside data, placing orders, documenting exam and treatment plan, and counseling patient) on 03/17/25. Quality VTE Deep Vein Thrombosis/Pulmonary Embolism Present on Admission: No PROFEE Office Services Coordinator Document charge(s): No
[2025-03-18] MEDS: HYDROMORPHONE 1 MG INJ IV ×7 (01:32→21:42)
[2025-03-18] MEDS: OXYCODONE IR 10 MG TABLET PO ×6 (02:59→20:38)
[2025-03-18 08:00] VITALS: BP 132/76; PULSE 74; RESP 18; TEMP 36.3; O2SAT 100
[2025-03-18] MEDS: THIAMINE 100 MG TABLET PO (08:10)
[2025-03-18] MEDS: PANTOPRAZOLE DR 40 MG TABLET PO (08:10)
[2025-03-18] MEDS: METOPROLOL IR 25 MG TABLET PO ×2 (08:10→20:38)
--- NOTE | 2025-03-18 08:27 | PT-IP ANOTE ---
LE CT from last date: IMPRESSION: 1. Intramedullary medardo with interlocking screws, transfixing a healing distal femur metadiaphysis fracture. No hardware complication. 2. Intramedullary medardo with interlocking screw of the tibia, partially visualized. 3. Chronic fracture of the left puboacetabular junction and the left inferior pubic ramus, unchanged. 4. The small bowels are fluid filled and mildly dilated, partially visualized, raising concern for ileus, new from prior CT on 05/16/2025. Small bowel obstruction cannot be excluded. PT reviews Dr. Hanley's note that states progressive WB with PT. It does not clarify which leg and there is no order. PT will await WB order from doctor before progressing WB. Per chart, both hospitalist and orthopedist are aware that pt needs a WB order.
--- NOTE | 2025-03-18 08:34 | PT-IP ANOTE ---
PT calls Dr. Salamanca about writing a clear WB order and he will address as able.
--- NOTE | 2025-03-18 10:52 | CM.DPNOTE ---
DCP note DISTRICT SALES LEADER [facility] ([phone]) can accept pt will submit for united auth today per discussion with team in morning rounds, pt will change mobility status to weight baring as tolerated. team will continue to educate on importance of mobility in healing fx CM team will continue to follow closely for DCP coordination. Auth pending. transport pending, willl continue to coordinate with [facility]/NW team for LTC placement post SNF JANET Chavez
--- NOTE | 2025-03-18 12:08 | CM.DPC ---
Addendum entered by JANET Pruitt 03/18/25 16:17: ADD: Msg from Cha at [facility] that she obtained [facility] auth for SNF and wanted to coordinate d/c for tomorrow. Called back [phone] and left msg with update that Medicaid transport currently scheduled with pickup at 1345 to confirm they will have the staff to admit around [phone]. BF Addendum entered by JANET Pruitt 03/18/25 15:45: ADD: Return call from [facility] transport stating [facility] confirms they can provide transport for pt tomorrow 03/19 to [facility] but not until 1345. SW to follow closely in AM if [facility] auth obtained in time, otherwise will need to call [facility] transport to cancel in timely manner. Unable to update pt prior to end of shift. BF Addendum entered by JANET Pruitt 03/18/25 15:01: ADD: SW completed Medicaid transport form requesting w/c van around 1300 tomorrow 03/19 in hopes [facility] MCR auth obtained. Will need to call Medicaid transport in AM to see if it was able to be scheduled and confirm if still needed. PASRR completed but will need MD signature for anxiety and depression hx for exempted hospital discharge as anticipated less 30 days for SNF rehab before home or LTC placement. BF Original Note: DCP SNF Planning: SW received a call from Cha at [facility] stating she thinks pt has [facility] and they can accept anytime but SW confirmed with AD Counselors that pt has active [facility] MCR Adv and will need SNF auth and updated Cha at [place] and she confirms she is agreeable to submit for [facility] MCR auth today 03/18. SW met bedside with pt and explained role and updated on above and she is very appreciative and agreeable with d/c to [facility] as she was thinking she would have to d/c home today when her son arrives bedside to get the house organized for her return. She confirms preference is [facility] to work on her nutrition and strengthening and then if needed LTC under her Medicaid and that my great team with [facility] has been so helpful in working towards Contracts Advisor plan. Pt states she will confirm with her son if he is available to transport her at d/c but she thinks today is his only day off work. Pt thinks she has Medicaid Transport benefits but hasn't used them for years and has her own w/c at home and likely will get her w/c and belongings from home today if he can for SNF at d/c. SW called Medicaid Transport and confirmed that she has transportation benefits. Pt likely will need cabulance transport to [facility] at d/c and SW to complete Medicaid transport form and send in to attempt transport for potentially tomorrow if auth obtained. JANET Pruitt
--- NOTE | 2025-03-18 13:29 | PT-IP ANOTE ---
PT checks chart again in the afternoon to see if pt has a WB order. There is no WB order or any other physician notes yet this date. Recommend OOB to chair with total lift and nsg as recommended on PT eval this adm. This PT has worked with pt many times over her many admissions over the past year and she has been able to mobilize well in bed and to the EOB and con't to be adamant about NWB status of both legs and not having returned to [facility] and she con't to perseverate on a conversation in the past (January of 2025) with Dr. Carpio. Pt's reports and Dr. Carpio's note at that time do not match. PT can continue efforts next date if a WB order is entered. This will need to be done for pt to have skilled therapy progression in this and subsequent settings. Pt has a history of self-limiting mobility in the acute setting and declined PT last date.
--- NOTE | 2025-03-18 19:05 | PM.PN.1 ---
Subjective Subjective Date Patient Seen: 03/18/25 Interval history: Chief complaint: Weakness failure to thrive neglect at home History of present illness: 03/16: 74-year-old female recently admitted 2 weeks ago with acetaminophen overdose was discharged home but did not managed well became weekend and bed-bound. Returned to the emergency department could severely weakened state unable to care for self. Findings in the emergency department significant for pyuria and bacteriuria Hospital course: 03/17: Pain control is more satisfactory today working with physical therapy tolerating dietary supplements 03/18: Pain control is more satisfactory we will be working with physical therapy Recommendations by Orthopedic Service: Progressive weight-bearing -with the goal of weightbearing as tolerated ?physical therapy consult ?she will likely require SNF placement. ? Please contact Orthopedics if there is any further questions. ? Follow up with Orthopedics 2 weeks after discharge -?? She can either follow up with Dr. Smith or Dr. Salamanca-? ultimately if she would like a ?revision of her left femoral nail she should [facility] Review of systems: Patient reports anorexia and weight loss No headache diplopia No chest pains palpitations shortness for breath No abdominal pain No urinary symptoms Patient reports paresthesia and leg weakness Physical exam: Frail chronically ill elderly female appearing older than stated age HEENT unremarkable Heart sounds distant no murmurs Lung sounds distant no rales Abdomen nondistended bowel sounds present nontender Extremities no edema Neuro moves all extremities insufficient strength to get out of bed For objective laboratory and imaging please see bottom of the note: Assessment and plan: Failure to thrive to the point now becoming bed-bound and can not care for her also with UTI and chronic liver disease Continue Rocephin for 3 doses (to have been completed) Observation status to inpatient if required Placement and jail rehab Moderate rehab potential Severe acute on chronic Protein Calorie Malnutrition r/t unable to care for self and minimal appetite as evidenced by 7% weight loss in 1 month (severe), BMI chronically underweight for age (19.0), no food intake for 1 week (severe) and <50% of estimated energy needs for >6 months per diet recall (severe), severe muscle mass wasting (temporalis, deltoids, interosseous), failure to thrive and hx of alcohol use disorder Dietary supplementation and full monitoring and evaluation of caloric recovery needs per dietary service Alcohol use disorder and previous overdose with acetaminophen 2 weeks ago Accidental and has recovered No signs of alcohol intoxication or withdrawal On thiamine for prophylaxis against Wernicke-Korsakoff syndrome DVT prophylaxis: Not a candidate for due to liver disease Code status: Full code blue 35 minutes were involved in the assessment [id number] evaluation and physical examination review of history discussion with other physicians case management Exam Vital Signs (past 8 hours): Oxygen Delivery Method Room Air Oxygen Flow Rate 0 Objective Labs 03/15/25 16:46 03/15/25 16:46 [facility] Medical History Family history of colon cancer in father Closed fracture of left distal femur Immunodeficiency due to conditions classified elsewhere Age-related osteoporosis without current pathological fracture History of vertebral compression fracture GERD without esophagitis Primary osteoarthritis involving multiple joints Chronic low back pain Stage 3b chronic kidney disease (CKD) Mixed hyperlipidemia Essential hypertension Cerebrovascular disease Coronary artery disease Recurrent UTI Displaced comminuted fracture of shaft of tibia Septic shock Left rib fracture Closed left clavicular fracture Iron (Fe) deficiency anemia Nephrolithiasis Peptic ulcer disease History of osteomyelitis Fracture, tibia Left foot drop Numbness and tingling HLD (hyperlipidemia) C. difficile colitis Colitis Anxiety Insomnia Arthritis DJD (degenerative joint disease) Depression Fibromyalgia Migraines Multiple fractures Osteoporosis Radius fracture (08/30/17) Neuropathy History of recurrent UTIs Renal disease Hypertension Chronic pain GI bleeding Surgical History Hx of kyphoplasty (07/28/19) Hx of kyphoplasty (04/28/19) Hx of kyphoplasty (~2013) Hx of elbow surgery Hx of appendectomy Hx of cholecystectomy Status post epidural steroid injection (03/25/19) H/O: hysterectomy Hx of tonsillectomy History of surgery Family History Mother No known health problems COPD (chronic obstructive pulmonary disease) Father No known health problems Social History household members: significant other Smoking Status: Former smoker alcohol intake: current Assessment & Plan Time-Based Coding :: [TOTAL MINUTES] spent with patient and on the chart (including review of chart, obtaining history, exam, reviewing outside data, placing orders, documenting exam and treatment plan, and counseling patient) on [DATE]. Quality VTE Deep Vein Thrombosis/Pulmonary Embolism Present on Admission: No
[2025-03-18 19:56] VITALS: BP 138/70; PULSE 76; RESP 17; TEMP 37.3; O2SAT 100
[2025-03-19] MEDS: cefTRIAXone 2,000 MG in SODIUM CHLORIDE 0.9% 100 ML 200 MG IV (01:01)
[2025-03-19 08:58] VITALS: BP 154/83; PULSE 78; RESP 14; TEMP 36.9; O2SAT 98
[2025-03-19 09:08] VITALS: BP 154/84; PULSE 72; RESP 14; TEMP 36.4; O2SAT 97
[2025-03-19] MEDS: METOPROLOL IR 25 MG TABLET PO ×2 (09:51→21:40)
[2025-03-19] MEDS: PANTOPRAZOLE DR 40 MG TABLET PO (09:51)
[2025-03-19] MEDS: THIAMINE 100 MG TABLET PO (09:51)
--- NOTE | 2025-03-19 10:31 | DIET.PN1 ---
Dietary Progress Note Assessment: Pt didn't tolerate ensure clear. Now that her abd pain is gone, she is agreeable to regular Ensure. Added Ensure Enlive BID. Ht: 154.94 cm Wt: 45.677 kg BMI: 19.0 Last BM: 03/14/25 (03/16/25 18:18) MNA: 7 Jaswant Score: 15 Diet: 03/16/25 Breakfast General (Regular) Diet Diet Modifications: Food Texture: Level 7 - Regular Liquid Consistency: Level 0 - Thin 03/16/25 Dinner General (Regular) Diet Diet Modifications: Nutrition Percent Meal Consumed 100% 03/18/25 18:15 Labs: RBC 3.10 X10^6/uL (4.0-5.2) L 03/15/25 16:46 Hgb 10.4 g/dL (12.0-16.0) L 03/15/25 16:46 Hct 30.3 % (36-46) L 03/15/25 16:46 Creatinine 0.92 mg/dL (0.52-1.04) 03/15/25 16:46 Electronically Signed by: Keysha Campos 03/19/25 10:31 Clinical Dietitian [address] [address]
[2025-03-19] MEDS: OXYCODONE IR 10 MG TABLET PO ×3 (10:52→16:28)
--- NOTE | 2025-03-19 12:25 | P.PN_ITS ---
Subjective Subjective Date Patient Seen: 03/19/25 Time Patient Seen: 08:30 Interval history: Chief complaint: Weakness failure to thrive neglect at home History of present illness: 03/16: 74-year-old female recently admitted 2 weeks ago with acetaminophen overdose was discharged home but did not managed well became weekend and bed- bound. Returned to the emergency department could severely weakened state unable to care for self. Findings in the emergency department significant for pyuria and bacteriuria Hospital course: 03/17: Pain control is more satisfactory today working with physical therapy tolerating dietary supplements 03/18: Pain control is more satisfactory we will be working with physical therapy 03/19: Initially difficult to arouse per nursing, though quickly arouses and is interactive without complaint Recommendations by Orthopedic Service: Progressive weight-bearing -with the goal of weightbearing as tolerated ?physical therapy consult ?she will likely require SNF placement. ? Please contact Orthopedics if there is any further questions. ? Follow up with Orthopedics 2 weeks after discharge -?? She can either follow up with Dr. Smith or Dr. Salamanca-? ultimately if she would like a ?revision of her left femoral nail she should return to [facility] Exam Vital Signs (past 8 hours): - 03/19/25 08:58 03/19/25 09:08 Temperature 98.4 F 97.5 F L Pulse Rate 78 72 Respiratory Rate 14 14 Blood Pressure 154/83 H 154/84 H Pulse Oximetry 98 97 Oxygen Flow Rate 0 0 Oxygen Delivery Method Room Air Oxygen Flow Rate 0 Narrative Exam Narrative: Frail chronically ill elderly female appearing older than stated age. She was initially difficult to arouse per nursing though appeared to respond to questions and then open her eyes and wake up and fully engage within a short time. HEENT unremarkable Heart sounds distant no murmurs Lung sounds distant no rales Abdomen nondistended bowel sounds present nontender Extremities no edema Neuro moves all extremities insufficient strength to get out of bed Objective Imaging *: Radiologist's impression: 1. Abdomen and pelvis CT 03/15/2025: No acute abdominopelvic process. 2. Lower extremity CT 03/17/2025: 1. Intramedullary medardo with interlocking screws, transfixing a healing distal femur metadiaphysis fracture. No hardware complication. 2. Intramedullary medardo with interlocking screw of the tibia, partially visualized. 3. Chronic fracture of the left puboacetabular junction and the left inferior pubic ramus, unchanged. 4. The small bowels are fluid filled and mildly dilated, partially visualized, raising concern for ileus, new from prior CT on 05/16/2025. Small bowel obstruction cannot be excluded. Labs 03/15/25 16:46 03/15/25 16:46 Labs: Laboratory Results - last 24 hr 03/19/25 09:28 POC Whole Bld Glucose 131 H PFSH Medical History Age-related osteoporosis without current pathological fracture Anxiety Arthritis C. difficile colitis Cerebrovascular disease Chronic low back pain Chronic pain Closed fracture of left distal femur Closed left clavicular fracture Colitis Coronary artery disease Depression Displaced comminuted fracture of shaft of tibia DJD (degenerative joint disease) Essential hypertension Family history of colon cancer in father Fibromyalgia Fracture, tibia GERD without esophagitis GI bleeding History of osteomyelitis History of recurrent UTIs History of vertebral compression fracture HLD (hyperlipidemia) Hypertension Immunodeficiency due to conditions classified elsewhere Insomnia Iron (Fe) deficiency anemia Left foot drop Left rib fracture Migraines Mixed hyperlipidemia Multiple fractures Nephrolithiasis Neuropathy Numbness and tingling Osteoporosis Peptic ulcer disease Primary osteoarthritis involving multiple joints Radius fracture (08/30/17) Recurrent UTI Renal disease Septic shock Stage 3b chronic kidney disease (CKD) Surgical History H/O: hysterectomy History of surgery Hx of appendectomy Hx of cholecystectomy Hx of elbow surgery Hx of kyphoplasty (~2013) Hx of kyphoplasty (04/28/19) Hx of kyphoplasty (07/28/19) Hx of tonsillectomy Status post epidural steroid injection (03/25/19) Family History Mother No known health problems COPD (chronic obstructive pulmonary disease) Father No known health problems Social History household members: significant other Smoking Status: Former smoker alcohol intake: current Assessment & Plan Assessment & Plan narrative: Failure to thrive to the point now becoming bed-bound and can not care for her also with UTI and chronic liver disease * Continue Rocephin for 3 doses (to have been completed) * Observation status to inpatient if required * Placement and fdc rehab * Moderate rehab potential Severe acute on chronic Protein Calorie Malnutrition r/t unable to care for self and minimal appetite as evidenced by 7% weight loss in 1 month (severe), BMI chronically underweight for age (19.0), no food intake for 1 week (severe) and <50% of estimated energy needs for >6 months per diet recall (severe), severe muscle mass wasting (temporalis, deltoids, interosseous), failure to thrive and hx of alcohol use disorder * Dietary supplementation and full monitoring and evaluation of caloric recovery needs per dietary service Alcohol use disorder and previous overdose with acetaminophen 2 weeks ago * Accidental and has recovered * No signs of alcohol intoxication or withdrawal * On thiamine for prophylaxis against Wernicke-Korsakoff syndrome History of femur fracture. * WBAT per orthopedics * Advance PT/OT DVT prophylaxis: SCDs * Not a candidate for anticoagulation due to liver disease Code status: * Full code The patient is medically stable and awaiting placement. Team rounds conducted today. 35 minutes spent in coordination of care. 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
--- NOTE | 2025-03-19 15:30 | PT.IPTN ---
Current Diagnoses Unilateral primary osteoarthritis, left knee (03/16/25) Unspecified fracture of lower end of left femur, subsequent encounter for closed fracture with routine healing (03/16/25) Physical Therapy Treatment Note M2 PT-IP Current Condition Start: 03/16/25 16:39 Freq: NEEDED Status: Active Protocol: Document 03/16/25 16:40 KJ (Rec: 03/16/25 16:56 KJ [id number]) Physical Therapy Current Condition Current Condition Evaluation Date 03/16/25 Treatment Diagnosis Impaired mobility Onset Date 03/05/25 M3 PT-IP Subjective Start: 03/16/25 16:39 Freq: NEEDED Status: Active Protocol: Document 03/19/25 15:30 AB (Rec: 03/19/25 16:28 AB [id number]) Subjective Physical Therapy Visit Type Type Treatment Note Visit Start Time 15:30 Visit Stop Time 16:05 Notes per hospitalist during rounds meeting: pt is WBAT on LLE. Number of SOLAR INSTALLATION FOREMAN Visits 0 Therapy Pain Assessment Pain When Pain Assessed At Rest Pain Present Pain Present Pain Reported Location generalized Scale Used pain scale not stated. Pain Management Distraction,Modification of Treatment,Re-positioning, Techniques Timing of Activity with Medications M4 PT-IP Mobility and Gait Start: 03/16/25 16:39 Freq: NEEDED Status: Active Protocol: Document 03/19/25 15:30 AB (Rec: 03/19/25 16:28 AB [id number]) PT-Bed Mobility Assessment Supine to Sit Supine to Sit Standby Assistance Sit to Supine Sit to Supine Minimal Assistance PT-Transfer Assessment Sit to and From Stand Sit to and from Moderate Assistance,Maximum Assistance,2 Person Stand Assistance,Use of Upper Extremities Equipment Transfer Assistive None,Gait Belt Device Orthotic/Prosthetic No Devices or Brace: Transfers Transfer Destination Bed,Chair Transfer Technique Stand Pivot Transfer Ability Level of Assist Moderate Assistance,Maximum Assistance,2 Person Assistance,Use of Upper Extremities Comments Mobility Comments pt initially refusing and wants PT to see pt after 430pm pain meds. educated pt on importance of mobility and agreed to get up. supine to sit SBA. able to sit on EOB SBA. completed stand pivot transfer mod A x 2 to max A x 2. pt refused to stay up on the chair and stated that her pain level will go up sooner if she is up but stated that she is willing to get up again after she gets her 430 pm pain meds. assisted pt back to bed. stand pivot transfer to bed mod A x 2 to max A x 2 and max cues. min A for sit to supine. positioned pt in bed. call light and table placed within reach. left pt with OT. informed nurse and NAC regarding pt's mobility and wants to get up again after pain meds. M5 PT-IP Objective Assessments Start: 03/16/25 16:39 Freq: NEEDED Status: Active Protocol: Document 03/16/25 16:40 KJ (Rec: 03/16/25 16:56 KJ [id number]) Orientation Orientation/Cognition Level of Alertness Alert Orientation Name,Age,Birthday,Situation Language Function No Deficits Noted Ability Safety Awareness Understands Safety Issues Memory Description No Deficits Noted Gross Range of Motion Upper Extremity ROM Impairments Shoulders decreased at end range. R elbow lacks full extension. 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 strength impaired bilat Lower Extremity Strength Hip WFL Knee unable to produce quad set in supine on L, sitting knee ext 4/5 R, 4-/5 L Ankle 5/5 bilat Comments Strength Comments strength tested within available limits Coordination Assessment Gross Coordination Gross Coordination WNL M6 PT-IP Treatment Start: 03/16/25 16:39 Freq: NEEDED Status: Active Protocol: Document 03/19/25 15:30 AB (Rec: 03/19/25 16:28 AB [id number]) Physical Therapy Treatment Education Education Provided Safety M7 PT-IP Assessment and Plan Start: 03/16/25 16:39 Freq: NEEDED Status: Active Protocol: Document 03/19/25 15:30 AB (Rec: 03/19/25 16:28 AB [id number]) PT Summary Assessment and Plan Potential Rehabilitation Fair Potential Summary Impairments Pain,ROM,Strength,Balance,Coordination,Sensation,Tone, Cognition,Bed Mobility,Transfers,Gait,Activity Tolerance Progress Towards Slow Progress due to Pain,Slow Progress due to Activity Goals Tolerance Assessment Summary pt completed stand pivot transfer without AD mod A x 2 to max A x 2. c/o pain affecting mobility level and assistance. pt plans to go to SNF rehab to improve mobility. Goals Bed Mobility Goal Independent Transfer Goal Standby Assistance Frequency of Treatment Frequency Of Once a Day Treatment Treatment Plan Physical Therapy Bed Mobility Training,Transfer Training,Gait Training, Treatment Plan Therapeutic Exercise,Balance Retraining,Discharge Planning,Hot or Cold Pack,Neuromuscular Re-ed, Coordination Retraining Weight Bearing Status Weight Bearing Weight Bear as Tolerated Status Allowed Weight LLE: WBAT per hospitalist 03/19/25 Bearing Amount ( enter % or #) (%) Recommendations To Nursing Amount of Assist 2 Person Assist Needed Discharge Recommendations PT Discharge SNF Rehab Recommendations Transportation Needs Wheelchair/Cabulance at Discharge - PT assist 2
--- NOTE | 2025-03-19 16:10 | OT.IP.EVAL ---
Current Diagnoses Unilateral primary osteoarthritis, left knee (03/16/25) Unspecified fracture of lower end of left femur, subsequent encounter for closed fracture with routine healing (03/16/25) Past Medical History (Last Reviewed 03/19/25 @ 12:28 by Ricardo Cantu MD) Age-related osteoporosis without current pathological fracture Anxiety Arthritis C. difficile colitis Cerebrovascular disease Chronic low back pain Chronic pain Closed fracture of left distal femur Closed left clavicular fracture Colitis Coronary artery disease Depression Displaced comminuted fracture of shaft of tibia DJD (degenerative joint disease) Essential hypertension Family history of colon cancer in father Fibromyalgia Fracture, tibia GERD without esophagitis GI bleeding History of osteomyelitis History of recurrent UTIs History of vertebral compression fracture HLD (hyperlipidemia) Hypertension Immunodeficiency due to conditions classified elsewhere Insomnia Iron (Fe) deficiency anemia Left foot drop Left rib fracture Migraines Mixed hyperlipidemia Multiple fractures Nephrolithiasis Neuropathy Numbness and tingling Osteoporosis Peptic ulcer disease Primary osteoarthritis involving multiple joints Radius fracture (08/30/17) Recurrent UTI Renal disease Septic shock Stage 3b chronic kidney disease (CKD) Surgical History (Last Reviewed 03/19/25 @ 12:28 by Ricardo Cantu MD) H/O: hysterectomy History of surgery Hx of appendectomy Hx of cholecystectomy Hx of elbow surgery Hx of kyphoplasty (~2013) Hx of kyphoplasty (04/28/19) Hx of kyphoplasty (07/28/19) Hx of tonsillectomy Status post epidural steroid injection (03/25/19) Occupational Therapy Inpatient Evaluation/Re-Eval M1 PT/OT-IP Prior Functional Status Start: 03/16/25 16:39 Freq: NEEDED Status: Active Protocol: Document 03/19/25 15:30 [facility] (Rec: 03/19/25 16:33 [facility] Desktop) Medical Review Prior Functional Status Medical History Yes Reviewed Mobility and Gait Primarily bed bound. Pt states she was able to transfer to/from commode by bearing wt on the RLEonly and bracing her legs back against the bed. Activities of Daily Had care in the home 5 hrs/day 5 days per week who Living and IADL's would give her a bed bath. Was not getting dressed - stayed in pajamas all day. Social History Household Members significant other Living Arrangements House Home Equipment Manual Wheelchair,Bedside Commode M2 OT-IP Current Condition Start: 03/19/25 16:14 Freq: Status: Active Protocol: Document 03/19/25 15:30 [facility] (Rec: 03/19/25 16:33 [facility] Desktop) Occupational Therapy Current Condition Current Condition Evaluation Date 03/19/25 Treatment Diagnosis Failure to thrive, hx of left femur fx Diagnosis Onset Date 03/15/25 Weight Bearing Status Weight Bearing Weight Bear as Tolerated Status Allowed Weight WBAT per DR. Ovalle progressive WB ok to WBAT for LLE Bearing Amount ( enter % or #) (%) M3 OT- IP Subjective and Pain Start: 03/19/25 16:14 Freq: Status: Active Protocol: Document 03/19/25 15:30 [facility] (Rec: 03/19/25 16:33 [facility] Desktop) OT- Subjective Occupational Therapy Visit Type Type Initial Evaluation Visit Start Time 15:30 Visit Stop Time 16:10 Occupational Therapy Visit Comments Patient Comments Pt after encouragement agree to get to the recliner. Patient/Caregiver TO get better and be able to live closer to her son. Goals OT Pain Assessment Pain When Pain Assessed At Rest Pain Present Pain Present Pain Reported Location generalized Intensity 10 Scale Used Numeric (0 - 10) M4 OT- IP ADL's Start: 03/19/25 16:14 Freq: Status: Active Protocol: Document 03/19/25 15:30 [facility] (Rec: 03/19/25 16:33 [facility] Desktop) OT [id number] General Evaluation Self-Feeding Ability Standby Assistance Areas Needing Opening Containers Assistance OT ADL-Grooming General Evaluation Grooming Ability Standby Assistance Comments OT Grooming Comments Set-up. OT ADL-Oral Care Comments Oral Care Comments Pt able to do on her own after set-up OT ADL-Dressing General Eval Lower Body Dressing Maximum Assistance Ability Comments OT Dressing Comments Assist for socks. OT ADL-Toileting Comments OT Toileting At this time pt will need two person assist for Comments toileting needs. OT ADL-Bathing Comments OT Bathing Comments Pt states sponge baths herself prior. M5 OT- IP IADL's Start: 03/19/25 16:14 Freq: Status: Active Protocol: Document 03/19/25 15:30 [facility] (Rec: 03/19/25 16:33 [facility] Desktop) OT-Instrumental Activities of Daily Living Home Safety Awareness Awareness of Need Good Awareness for Assistance at Home Medication Management Medication Best to have supervision. Management Comments Money Management Money Management Best to have at least supervision. Comments Meal Preparation Meal Preparation Caregiver Provides Assist Director Of Event Sales Director Of Event Sales Caregiver Provides Assist M6 OT- IP Functional Cognition Start: 03/19/25 16:14 Freq: Status: Active Protocol: Document 03/19/25 15:30 [facility] (Rec: 03/19/25 16:33 [facility] Desktop) Cognitive Factors Limiting Selfcare Function Cognitive Ability Level of Alertness Alert Patient Orientation Name,Age,Birthday,Month,Year,Place,Situation Attention Span Capable of Focused Attention,Capable of Sustained Ability Attention Ability to Follow Able to Follow One Step Commands Commands Memory Description Short Term Impaired Cognitive Comments Cognitive Assessment Pt very talkative and at times forgetful as she forgot Comments the call light was on top on her blanket resting on top of her. Pt is a bit tangential and easily distracted. OT- Vision and Hearing OT- Hearing Assessment OT- Hearing WFL Assessment M7 OT- IP Mobility and Balance Start: 03/19/25 16:14 Freq: Status: Active Protocol: Document 03/19/25 15:30 [facility] (Rec: 03/19/25 16:33 [facility] Desktop) OT- Bed Mobility Assessment Supine to Sit Supine to Sit Assist Standby Assistance Sit to Supine Sit to Supine Assist Contact Guard Assistance OT-Transfer Assessment Sit to and From Stand Sit to and from Moderate Assistance,Maximum Assistance,2 Person Stand Assistance Transfers Transfer Ability Moderate Assistance,Maximum Assistance,2 Person Assistance Comments Mobility Comments Pt able to come to long sitting and then get her legs to the edge of the bed. MOD/MAXA X 2 to stand and pt able to reach out to the recliner armrest and therapist as recliner placed close by. Pt tend able to pivot on her right foot to get to the recliner. Pt wanting to get back to bed and able to transfer back with MAXA X 2 and gait belt. OT- Gait Assessment Comments Gait Ability Pt does not walk and been mainly bed bound. Dr. Salamanca Comments can cleared her to progressive WB to WBAT for LLE after LLE CT. OT- Balance Assessment Sitting Balance and Reactions Static Sitting Normal Balance Ability Dynamic Sitting Good Balance Ability Standing Balance and Reactions Static Standing Poor Balance Ability Dynamic Standing Poor Balance Ability M8 OT- IP Objective Assessments Start: 03/19/25 16:14 Freq: Status: Active Protocol: Document 03/19/25 15:30 [facility] (Rec: 03/19/25 16:33 [facility] Desktop) OT Gross Range of Motion Upper Extremity Range of Motion Assessment Bilaterally Impaired OT Strength Upper Extremity Strength Assessment Bilaterally Impaired Comments Strength Comments LUE 3-/5 to 3+/5 , RUE 3/5 to 3+/5 M9 OT- IP Assessment and Plan Start: 03/19/25 16:14 Freq: Status: Active Protocol: Document 03/19/25 15:30 [facility] (Rec: 03/19/25 16:33 [facility] Desktop) OT Summary Assessment and Plan Potential Rehabilitation Fair Potential Analytic Complexity Moderate at Evaluation Summary OT Impairments Pain,Range of Motion,Strength,Balance,Functional Cognition,Functional Mobility,Grooming,Dressing, Toileting,Toilet Transfers,Activity Tolerance Progress Towards Slow Progress due to Pain,Slow Progress due to Medical Goals Issues,Slow Progress due to Activity Tolerance Assessment Summary Pt MOD complexity and main barriers are pain, decreased strength, endurance and balance. Pt will benefit from skilled rehab to work on toileting needs as prior pt was independent and able to do on her own. Pt is very motivated to get better and for also being able to try to incorporate use of her LLE due now has been cleared to progressively put WB for her LLE after results of LLE scan. Goals Self-Feeding Goal Independent Grooming Goal Independent Dressing Goal Minimal Assistance Toileting Goal Independent Bathing Goal Minimal Assistance Toilet Transfer Goal Independent Days to Meet Goals 20 Frequency of Treatment Other frequency 5x/week Treatment Plan OT Treatment Plan ADL Training,Functional Cognition Training,Functional Mobility,Patient/Family Education,Discharge Planning Other Treatment [place] [facility] [place] MODA X 1 stand pivot. Recommendations and Next Treatment Focus Discharge Recommendations OT Discharge SNF Rehab Recommendations Transportation Needs Wheelchair/Cabulance at Discharge
--- NOTE | 2025-03-19 16:41 | CM.DPNOTE ---
DCP Continued: Reviewed EMR and team rounds for pt?s medical status. Per hospitalist, pt is cleared for discharge to [facility] when insurance auth obtained. DCP spoke with Mony at [facility] Admissions, it is reported that pt's authorization is currently pending and insurance is requesting more clinical information (progress notes with IV abx prescription). DCP sent most recent progress note and confirmed that pt is NOT being discharged with IV abx at [facility]. [facility] Admissions confirm that they do NOT accept intakes over weekend so even if auth is obtained, pt cannot transfer until Saturday, 03/22. DCP notified hospitalist of this, he verbalized understanding. DCP cancelled transport scheduled with [facility] on 03/19 at 1345. At 1239, NMP was notified that [facility] would like to offer a hjja-[id number] by 03/19 at 5:00pm PST. [facility] Yjgq-df-Psai: [phone] opt 5. Hospitalist graciously completed [id number] consult and additional PT/OT notes and evaluation have been requested by 5:00pm. 1245: PT/OT notified, OT orders placed. 1250: DCP entered room, discussed with pt the current situation. Utilizing motivational interviewing and person-centered approach, pt verbalized motivation to work with PT/OT and confirmed preference to discharge to SNF Rehab in [place]. 1630: PT/OT evaluations and notes have been completed in EMR, DCP faxed to [facility] (Inpatient and Observation fax#), [facility] fax #[phone] [facility] for their records before 5:00pm deadline. Plan: Pending insurance authorization to dc to [facility] on Saturday, 03/22, will need to coordinate Medicaid cabulence with [facility]. CM Team will continue to follow for coordination of discharge plans. DAO BatesSW
[2025-03-19 19:00] VITALS: BP 113/58; PULSE 76; RESP 18; TEMP 36.6; O2SAT 97
[2025-03-19] MEDS: OXYCODONE IR 5 MG TABLET PO (20:10)
--- NOTE | 2025-03-19 20:14 | PC.NURSE ---
Patient is complaining of all medical care at this hospital. Stating that we are over medicating her, we are unaware of her medial issues, that this morning when she was hard to arouse we should have called my son who is my POA and he would have told you whats going on. Patient going back and forth on either being overmedicated or that she was awake for many days and then slept too hard this morning and that was why she had a hard time waking. The patient is also visibly upset that her pain medications have changed from oxycodone Q3H to Q4H and the doctor should have told me whats going on before he left for the day. The patient was holding the oxycodone in her hand during this whole conversation and this RN stated multiple times i am trying to give your pain medicine right now. Patient stopped talking and took the oxycodone. Patient raised her voice at this RN multiple times during this conversation which this RN told her to not to speak to staff this way and I am giving her pain medicine right now. Patient left with call light in hand, bed alarm on and door shut per request.
[2025-03-20] MEDS: OXYCODONE IR 5 MG TABLET PO ×3 (05:56→09:59)
[2025-03-20] MEDS: METOPROLOL IR 25 MG TABLET PO ×2 (08:34→20:20)
[2025-03-20] MEDS: THIAMINE 100 MG TABLET PO (08:34)
[2025-03-20] MEDS: PANTOPRAZOLE DR 40 MG TABLET PO (08:34)
[2025-03-20 08:44] VITALS: BP 143/83; PULSE 71; RESP 19; TEMP 36.8; O2SAT 98
--- NOTE | 2025-03-20 11:09 | P.PN_ITS ---
Subjective Subjective Date Patient Seen: 03/20/25 Time Patient Seen: 08:28 Interval history: Chief complaint: Weakness failure to thrive neglect at home History of present illness: 74-year-old female recently admitted 2 weeks ago with acetaminophen overdose was discharged home but did not managed well became weekend and bed-bound. Returned to the emergency department could severely weakened state unable to care for self. Findings in the emergency department significant for pyuria and bacteriuria Hospital course: 03/17: Pain control is more satisfactory today working with physical therapy tolerating dietary supplements 03/18: Pain control is more satisfactory we will be working with physical therapy 03/19: Initially difficult to arouse per nursing, though quickly arouses and is interactive without complaint Recommendations by Orthopedic Service: Progressive weight-bearing -with the goal of weightbearing as tolerated ?physical therapy consult ?she will likely require SNF placement. ? Please contact Orthopedics if there is any further questions. ? Follow up with Orthopedics 2 weeks after discharge -?? She can either follow up with Dr. Smith or Dr. Salamanca-? ultimately if she would like a ?revision of her left femoral nail she should return to [facility] 03/19: Alert, waiting placement, no complaints. Exam Vital Signs (past 8 hours): - 03/20/25 08:44 Temperature 98.2 F Pulse Rate 71 Respiratory Rate 19 Blood Pressure 143/83 H Pulse Oximetry 98 Oxygen Flow Rate 0 Oxygen Delivery Method Room Air Oxygen Flow Rate 0 Narrative Exam Narrative: Chronically ill elderly female appearing older than stated age in no apparent distress. HEENT unremarkable Heart sounds distant no murmurs Lung sounds distant no rales Abdomen nondistended bowel sounds present nontender Extremities no edema Neuro moves all extremities insufficient strength to get out of bed Objective Imaging *: Radiologist's impression: 1. Abdomen and pelvis CT 03/15/2025: No acute abdominopelvic process. 2. Lower extremity CT 03/17/2025: 1. Intramedullary medardo with interlocking screws, transfixing a healing distal femur metadiaphysis fracture. No hardware complication. 2. Intramedullary medardo with interlocking screw of the tibia, partially visualized. 3. Chronic fracture of the left puboacetabular junction and the left inferior pubic ramus, unchanged. 4. The small bowels are fluid filled and mildly dilated, partially visualized, raising concern for ileus, new from prior CT on 05/16/2025. Small bowel obstruction cannot be excluded. Labs 03/15/25 16:46 03/15/25 16:46 Labs: Laboratory Results - last 24 hr 03/19/25 09:28 POC Whole Bld Glucose 131 H PFS Medical History Age-related osteoporosis without current pathological fracture Anxiety Arthritis C. difficile colitis Cerebrovascular disease Chronic low back pain Chronic pain Closed fracture of left distal femur Closed left clavicular fracture Colitis Coronary artery disease Depression Displaced comminuted fracture of shaft of tibia DJD (degenerative joint disease) Essential hypertension Family history of colon cancer in father Fibromyalgia Fracture, tibia GERD without esophagitis GI bleeding History of osteomyelitis History of recurrent UTIs History of vertebral compression fracture HLD (hyperlipidemia) Hypertension Immunodeficiency due to conditions classified elsewhere Insomnia Iron (Fe) deficiency anemia Left foot drop Left rib fracture Migraines Mixed hyperlipidemia Multiple fractures Nephrolithiasis Neuropathy Numbness and tingling Osteoporosis Peptic ulcer disease Primary osteoarthritis involving multiple joints Radius fracture (08/30/17) Recurrent UTI Renal disease Septic shock Stage 3b chronic kidney disease (CKD) Surgical History H/O: hysterectomy History of surgery Hx of appendectomy Hx of cholecystectomy Hx of elbow surgery Hx of kyphoplasty (~2013) Hx of kyphoplasty (04/28/19) Hx of kyphoplasty (07/28/19) Hx of tonsillectomy Status post epidural steroid injection (03/25/19) Family History Mother No known health problems COPD (chronic obstructive pulmonary disease) Father No known health problems Social History household members: significant other Smoking Status: Former smoker alcohol intake: current Assessment & Plan Assessment & Plan narrative: Failure to thrive to the point now becoming bed-bound and can not care for her also with UTI and chronic liver disease * Completed IV ceftriaxone x3 doses on 03/19 * Observation status * Placement and care home rehab, participatory with PT * Moderate rehab potential Severe acute on chronic Protein Calorie Malnutrition r/t unable to care for self and minimal appetite as evidenced by 7% weight loss in 1 month (severe), BMI chronically underweight for age (19.0), no food intake for 1 week (severe) and <50% of estimated energy needs for >6 months per diet recall (severe), severe muscle mass wasting (temporalis, deltoids, interosseous), failure to thrive and hx of alcohol use disorder * Dietary supplementation and full monitoring and evaluation of caloric recovery needs per dietary service Alcohol use disorder and previous overdose with acetaminophen 2 weeks ago, h istory of opioid abuse and overdose within the past year requiring intubation and ICU care at [facility] * No signs of alcohol intoxication or withdrawal * On thiamine for prophylaxis against Wernicke-Korsakoff syndrome * Avoid opioids and controlled substances History of femur fracture. * WBAT per orthopedics * Advance PT/OT DVT prophylaxis: SCDs * Not a candidate for anticoagulation due to liver disease Code status: * Full code The patient is medically stable and awaiting placement. Team rounds conducted today. 35 minutes spent in coordination of care. Quality VTE Deep Vein Thrombosis/Pulmonary Embolism Present on Admission: No IH PROFEE Bulb Filler Document charge(s): No Charge Codes Subsequent inpatient/observation care: [id number]
--- NOTE | 2025-03-20 12:55 | PT-IP ANOTE ---
checked on pt this morning at and refusing PT. stated that she prefers to be seen later around the time she gets her next pain medication at 2 pm in the afternoon
--- NOTE | 2025-03-20 13:30 | PT.IPTN ---
Current Diagnoses Unilateral primary osteoarthritis, left knee (03/16/25) Unspecified fracture of lower end of left femur, subsequent encounter for closed fracture with routine healing (03/16/25) Physical Therapy Treatment Note M2 PT-IP Current Condition Start: 03/16/25 16:39 Freq: NEEDED Status: Active Protocol: Document 03/16/25 16:40 [facility] (Rec: 03/16/25 16:56 KJ [id number]) Physical Therapy Current Condition Current Condition Evaluation Date 03/16/25 Treatment Diagnosis Impaired mobility Onset Date 03/05/25 M3 PT-IP Subjective Start: 03/16/25 16:39 Freq: NEEDED Status: Active Protocol: Document 03/20/25 13:30 [facility] (Rec: 03/20/25 15:25 [facility] Desktop) Subjective Physical Therapy Visit Type Type Treatment Note Visit Start Time 13:30 Visit Stop Time 14:00 Number of HEAD WRESTLING COACH Visits 0 M4 PT-IP Mobility and Gait Start: 03/16/25 16:39 Freq: NEEDED Status: Active Protocol: Document 03/20/25 13:30 [facility] (Rec: 03/20/25 15:25 [facility] Desktop) PT-Bed Mobility Assessment Supine to Sit Supine to Sit Standby Assistance Sit to Supine Sit to Supine Standby Assistance PT-Transfer Assessment Sit to and From Stand Sit to and from Moderate Assistance,Maximum Assistance,1 Person Stand Assistance,Use of Upper Extremities Equipment Transfer Assistive None,Gait Belt Device Orthotic/Prosthetic No Devices or Brace: Transfers Transfer Destination Bed,Chair Transfer Technique Stand Pivot Transfer Ability Level of Assist Maximum Assistance,1 Person Assistance,Use of Upper Extremities Comments Mobility Comments checked with nurse regarding 2pm pain meds and stated that the doctor stops all pain meds and pt will not be getting any pain meds. checked on pt and pt is aware and stated that she just need to stay in the hospital until saturday for her to d/c to [facility]. pt agreed to do PT. supine to sit SBA. pt needed increase time in between tasks to rest. sit to stand from EOB mod A and pivot transfer to chair without AD mod to max A and max cues. pt completed LAQs and seated marching on the chair. pt does not want to stay up on the chair and wants to go back to bed. sit to stand from chair max A and stand pivot transfer to bed without AD max A and cues. sit to supine SBA. positioned pt in bed. call light and table placed within reach. M5 PT-IP Objective Assessments Start: 03/16/25 16:39 Freq: NEEDED Status: Active Protocol: Document 03/16/25 16:40 KJ (Rec: 03/16/25 16:56 KJ [id number]) Orientation Orientation/Cognition Level of Alertness Alert Orientation Name,Age,Birthday,Situation Language Function No Deficits Noted Ability Safety Awareness Understands Safety Issues Memory Description No Deficits Noted Gross Range of Motion Upper Extremity ROM Impairments Shoulders decreased at end range. R elbow lacks full extension. Lower Extremity ROM Assessment Within Functional Limits Strength Upper Extremity Strength Shoulder R 3/5 flex, 3+/5 ext L 3+/5 Elbow R 4/5, L 4+/5 Hand kettle girl strength impaired bilat Lower Extremity Strength Hip WFL Knee unable to produce quad set in supine on L, sitting knee ext 4/5 R, 4-/5 L Ankle 5/5 bilat Comments Strength Comments strength tested within available limits Coordination Assessment Gross Coordination Gross Coordination WNL M6 PT-IP Treatment Start: 03/16/25 16:39 Freq: NEEDED Status: Active Protocol: Document 03/20/25 13:30 [facility] (Rec: 03/20/25 15:25 [facility] Desktop) Physical Therapy Treatment Education Education Provided Safety M7 PT-IP Assessment and Plan Start: 03/16/25 16:39 Freq: NEEDED Status: Active Protocol: Document 03/20/25 13:30 [facility] (Rec: 03/20/25 15:25 [facility] Desktop) PT Summary Assessment and Plan Potential Rehabilitation Fair Potential Summary Impairments Pain,ROM,Strength,Balance,Coordination,Sensation,Tone, Cognition,Bed Mobility,Transfers,Gait,Activity Tolerance Progress Towards Slow Progress due to Activity Tolerance,Slow Progress - Goals Other Assessment Summary pt requiring mod to max A for stand pivot transfer without AD. pt plans to d/c to SNF but will eventually need fdc placement. Goals Bed Mobility Goal Independent Transfer Goal Standby Assistance Frequency of Treatment Frequency Of Once a Day Treatment Treatment Plan Physical Therapy Bed Mobility Training,Transfer Training,Gait Training, Treatment Plan Therapeutic Exercise,Balance Retraining,Discharge Planning,Hot or Cold Pack,Neuromuscular Re-ed, Coordination Retraining Weight Bearing Status Weight Bearing Weight Bear as Tolerated Status Allowed Weight LLE: WBAT per hospitalist 03/19/25 Bearing Amount ( enter % or #) (%) Recommendations To Nursing Amount of Assist 1 Person Assist Needed Discharge Recommendations PT Discharge SNF Rehab Recommendations Other Discharge superintendent terminal placement needed Recommendations Transportation Needs Wheelchair/Cabulance at Discharge - PT assist 1
--- NOTE | 2025-03-20 14:34 | CM.DPNOTE ---
DCP Cont Placed call to [facility] admissions P [phone]; had to leave message asking if authorization had been secured ? Requested CB. LAVINIA team following closely for coordination. JW
[2025-03-20 20:00] VITALS: BP 140/77; PULSE 68; RESP 17; TEMP 36.7; O2SAT 94
[2025-03-20] MEDS: SODIUM CHLORIDE 0.9% FLUSH 10 ML IV (20:21)
[2025-03-21 07:00] VITALS: BP 142/87; PULSE 65; RESP 16; TEMP 36.6; O2SAT 100
--- NOTE | 2025-03-21 09:19 | CM.DPNOTE ---
DCP Cont MANAGER HOSPICE lvm with [facility] admissions P [phone]; requested call back. do not anticipate connecting with their team until Saturday. PASRR done but needs hospitalist signature SW team following closely for coordination. Sherrell Godinez, MANAGER HOSPICE
[2025-03-21] MEDS: ONDANSETRON 4 MG/2 ML INJ IV ×2 (10:02→16:44)
[2025-03-21] MEDS: METOPROLOL IR 25 MG TABLET PO ×2 (10:02→20:58)
[2025-03-21] MEDS: THIAMINE 100 MG TABLET PO (10:02)
[2025-03-21] MEDS: PANTOPRAZOLE DR 40 MG TABLET PO (10:02)
--- NOTE | 2025-03-21 11:23 | P.PN_ITS ---
Subjective Subjective Date Patient Seen: 03/21/25 Time Patient Seen: 09:40 Interval history: Chief complaint: Weakness failure to thrive neglect at home History of present illness: 74-year-old female recently admitted 2 weeks ago with acetaminophen overdose was discharged home but did not managed well became weekend and bed-bound. Returned to the emergency department could severely weakened state unable to care for self. Findings in the emergency department significant for pyuria and bacteriuria Hospital course: 03/17: Pain control is more satisfactory today working with physical therapy tolerating dietary supplements 03/18: Pain control is more satisfactory we will be working with physical therapy 03/19: Initially difficult to arouse per nursing, though quickly arouses and is interactive without complaint Recommendations by Orthopedic Service: Progressive weight-bearing -with the goal of weightbearing as tolerated ?physical therapy consult ?she will likely require SNF placement. ? Please contact Orthopedics if there is any further questions. ? Follow up with Orthopedics 2 weeks after discharge -?? She can either follow up with Dr. Smith or Dr. Salamanca-? ultimately if she would like a ?revision of her left femoral nail she should return to [facility] 03/19: Alert, waiting placement, no complaints. 03/20: Alert, awaiting SNF placement, was participatory with physical therapy yesterday. Exam Vital Signs (past 8 hours): - 03/21/25 07:00 Temperature 97.9 F Pulse Rate 65 Respiratory Rate 16 Blood Pressure 142/87 H Pulse Oximetry 100 Oxygen Flow Rate 0 Oxygen Delivery Method Room Air Oxygen Flow Rate 0 Objective Imaging *: Radiologist's impression: 1. Abdomen and pelvis CT 03/15/2025: No acute abdominopelvic process. 2. Lower extremity CT 03/17/2025: 1. Intramedullary medardo with interlocking screws, transfixing a healing distal femur metadiaphysis fracture. No hardware complication. 2. Intramedullary medardo with interlocking screw of the tibia, partially visualized. 3. Chronic fracture of the left puboacetabular junction and the left inferior pubic ramus, unchanged. 4. The small bowels are fluid filled and mildly dilated, partially visualized, raising concern for ileus, new from prior CT on 05/16/2025. Small bowel obstruction cannot be excluded. Labs 03/15/25 16:46 03/15/25 16:46 Labs: Laboratory Results - last 24 hr 03/19/25 09:28 POC Whole Bld Glucose 131 H PFSH Medical History Age-related osteoporosis without current pathological fracture Anxiety Arthritis C. difficile colitis Cerebrovascular disease Chronic low back pain Chronic pain Closed fracture of left distal femur Closed left clavicular fracture Colitis Coronary artery disease Depression Displaced comminuted fracture of shaft of tibia DJD (degenerative joint disease) Essential hypertension Family history of colon cancer in father Fibromyalgia Fracture, tibia GERD without esophagitis GI bleeding History of osteomyelitis History of recurrent UTIs History of vertebral compression fracture HLD (hyperlipidemia) Hypertension Immunodeficiency due to conditions classified elsewhere Insomnia Iron (Fe) deficiency anemia Left foot drop Left rib fracture Migraines Mixed hyperlipidemia Multiple fractures Nephrolithiasis Neuropathy Numbness and tingling Osteoporosis Peptic ulcer disease Primary osteoarthritis involving multiple joints Radius fracture (08/30/17) Recurrent UTI Renal disease Septic shock Stage 3b chronic kidney disease (CKD) Surgical History H/O: hysterectomy History of surgery Hx of appendectomy Hx of cholecystectomy Hx of elbow surgery Hx of kyphoplasty (~2013) Hx of kyphoplasty (04/28/19) Hx of kyphoplasty (07/28/19) Hx of tonsillectomy Status post epidural steroid injection (03/25/19) Family History Mother No known health problems COPD (chronic obstructive pulmonary disease) Father No known health problems Social History household members: significant other Smoking Status: Former smoker alcohol intake: current Assessment & Plan Assessment & Plan narrative: Failure to thrive to the point now becoming bed-bound and can not care for her also with UTI and chronic liver disease * Completed IV ceftriaxone x3 doses on 03/19 * Observation status * Placement and assisted rehab, participatory with PT * Moderate rehab potential Severe acute on chronic Protein Calorie Malnutrition r/t unable to care for self and minimal appetite as evidenced by 7% weight loss in 1 month (severe), BMI chronically underweight for age (19.0), no food intake for 1 week (severe) and <50% of estimated energy needs for >6 months per diet recall (severe), severe muscle mass wasting (temporalis, deltoids, interosseous), failure to thrive and hx of alcohol use disorder * Dietary supplementation and full monitoring and evaluation of caloric recovery needs per dietary service Alcohol use disorder and previous overdose with acetaminophen 2 weeks ago, h istory of opioid abuse and overdose within the past year requiring intubation and ICU care at [facility] * No signs of alcohol intoxication or withdrawal * On thiamine for prophylaxis against Wernicke-Korsakoff syndrome * Avoid opioids and controlled substances History of femur fracture. * WBAT per orthopedics * Advance PT/OT DVT prophylaxis: SCDs * Not a candidate for anticoagulation due to liver disease Code status: * Full code The patient is medically stable and awaiting placement. Team rounds conducted today. 25 minutes spent in coordination of care. Quality VTE Deep Vein Thrombosis/Pulmonary Embolism Present on Admission: No PROFEE Die Grinder Document charge(s): No Charge Codes Subsequent inpatient/observation care: 30234
--- NOTE | 2025-03-21 12:42 | PT.IPTN ---
Current Diagnoses Unilateral primary osteoarthritis, left knee (03/16/25) Unspecified fracture of lower end of left femur, subsequent encounter for closed fracture with routine healing (03/16/25) Physical Therapy Treatment Note M2 PT-IP Current Condition Start: 03/16/25 16:39 Freq: NEEDED Status: Active Protocol: Document 03/16/25 16:40 KJ (Rec: 03/16/25 16:56 KJ [id number]) Physical Therapy Current Condition Current Condition Evaluation Date 03/16/25 Treatment Diagnosis Impaired mobility Onset Date 03/05/25 M3 PT-IP Subjective Start: 03/16/25 16:39 Freq: NEEDED Status: Active Protocol: Document 03/21/25 11:42 MB (Rec: 03/21/25 12:42 MB Desktop) Subjective Physical Therapy Visit Type Type Treatment Note Visit Start Time 11:42 Visit Stop Time 11:56 Number of BATTERY CONTAINER FINISHING HAND Visits 0 Physical Therapy Visit Comments Patient Comments Pt is agreeable to PT, states she is ready to d/c to [place] tomorrow. Verbalizes concern that her pain medication has been stopped and that Dr. Carpio knows about her left leg. Therapy Pain Assessment Pain When Pain Assessed At Rest Pain Present Pain Present Pain Reported Location generalized Scale Used 10+ M4 PT-IP Mobility and Gait Start: 03/16/25 16:39 Freq: NEEDED Status: Active Protocol: Document 03/21/25 11:42 MB (Rec: 03/21/25 12:42 MB Desktop) PT-Bed Mobility Assessment Supine to Sit Supine to Sit Independent Sit to Supine Sit to Supine Independent Scooting Scooting to Edge of Independent Bed Scooting Up and Down Independent in Bed PT-Transfer Assessment Sit to and From Stand Sit to and from Contact Guard Assistance,1 Person Assistance,Use of Stand Upper Extremities Equipment Transfer Assistive None,Gait Belt Device Orthotic/Prosthetic No Devices or Brace: Transfers Transfer Destination Bed,Chair Transfer Technique Stand Pivot Transfer Ability Level of Assist Contact Guard Assistance,1 Person Assistance,Use of Upper Extremities Comments Mobility Comments Pt adamantly refuses use of walker and trying steps. Uses right leg mostly for SPTx2 and requires CGA. Pt can doff compression booties in bed and dons right sock , flexing leg to chest in long sitting. She also flexes left leg up but states she cannot don her left sock despite reaching foot. Gait Assessment Comments Gait Comments Adamantly refuses M5 PT-IP Objective Assessments Start: 03/16/25 16:39 Freq: NEEDED Status: Active Protocol: Document 03/16/25 16:40 KJ (Rec: 03/16/25 16:56 KJ [id number]) Orientation Orientation/Cognition Level of Alertness Alert Orientation Name,Age,Birthday,Situation Language Function No Deficits Noted Ability Safety Awareness Understands Safety Issues Memory Description No Deficits Noted Gross Range of Motion Upper Extremity ROM Impairments Shoulders decreased at end range. R elbow lacks full extension. Lower Extremity ROM Assessment Within Functional Limits Strength Upper Extremity Strength Shoulder R 3/5 flex, 3+/5 ext L 3+/5 Elbow R 4/5, L 4+/5 Hand wind energy mechanic strength impaired bilat Lower Extremity Strength Hip WFL Knee unable to produce quad set in supine on L, sitting knee ext 4/5 R, 4-/5 L Ankle 5/5 bilat Comments Strength Comments strength tested within available limits Coordination Assessment Gross Coordination Gross Coordination WNL M6 PT-IP Treatment Start: 03/16/25 16:39 Freq: NEEDED Status: Active Protocol: Document 03/21/25 11:42 MB (Rec: 03/21/25 12:42 MB Desktop) Physical Therapy Treatment Education Education Provided Safety M7 PT-IP Assessment and Plan Start: 03/16/25 16:39 Freq: NEEDED Status: Active Protocol: Document 03/21/25 11:42 MB (Rec: 03/21/25 12:42 MB Desktop) PT Summary Assessment and Plan Potential Rehabilitation Poor Potential Status of Condition Evolving at Evaluation Summary Impairments Pain,ROM,Strength,Balance,Transfers,Gait,Activity Tolerance Progress Towards Progressing Toward Goals Goals Assessment Summary Pt is I for bed mobility and CGA for transfers. She adamantly refuses using the walker and gait training. She states she cannot use hands on walkers but does use hands well on bed and chair for SPT x2. She refuses sitting up in chair for lunch and requests back to bed. She is close to her functional baseline. 1 more acute PT treatment to ensure she can transfer. Goals Transfer Goal Independent Frequency of Treatment Other frequency One more treatment Treatment Plan Physical Therapy Transfer Training Treatment Plan Weight Bearing Status Allowed Weight Ortho order updated to progress to WBAT Bearing Amount ( enter % or #) (%) Recommendations To Nursing Amount of Assist 1 Person Assist Needed Discharge Recommendations Other Discharge SARKIS Recommendations Transportation Needs Wheelchair/Cabulance at Discharge - PT assist x1
[2025-03-21] MEDS: SODIUM CHLORIDE 0.9% FLUSH 10 ML IV (16:45)
[2025-03-21] MEDS: LIDOCAINE 5% PATCH 1 EACH TOP (16:47)
--- NOTE | 2025-03-21 19:11 | PC.NURSE ---
Asked the pt if she wanted staff to give change of shift report at her bedside and pt declined the option tonight. This RN explained that she would be introduced to the new nurse for the night and would be able to ask questions if she wanted to. Pt still declined bedside shift change report after pt education was given.
[2025-03-21 20:00] VITALS: BP 120/70; PULSE 69; RESP 19; TEMP 36.9; O2SAT 98
--- NOTE | 2025-03-22 07:50 | P.DS_ITS ---
History of Present Illness History of Present Illness Date Patient Seen: 03/23/25 Chief complaint: poss UTI failure to thrive Narrative: Chief complaint: Weakness failure to thrive neglect at home History of present illness: 74-year-old female recently admitted 2 weeks ago with acetaminophen overdose was discharged home but did not managed well became weekend and bed-bound. Returned to the emergency department could severely weakened state unable to care for self. Findings in the emergency department significant for pyuria and bacteriuria Hospital course: 03/17: Pain control is more satisfactory today working with physical therapy tolerating dietary supplements 03/18: Pain control is more satisfactory we will be working with physical therapy 03/19: Initially difficult to arouse per nursing, though quickly arouses and is interactive without complaint Recommendations by Orthopedic Service: Progressive weight-bearing -with the goal of weightbearing as tolerated ?physical therapy consult ?she will likely require SNF placement. ? Please contact Orthopedics if there is any further questions. ? Follow up with Orthopedics 2 weeks after discharge -?? She can either follow up with Dr. Smith or Dr. Salamanca-? ultimately if she would like a ?revision of her left femoral nail she should return to [facility] 03/19: Alert, waiting placement, no complaints. 03/20: Alert, awaiting SNF placement, was participatory with physical therapy yesterday. 03/21-03/23: Continued to work with physical therapy Review of systems: Patient reports better appetite s No headache diplopia No chest pains palpitations shortness for breath No abdominal pain No urinary symptoms Patient reports paresthesia and leg weakness Physical exam: Frail chronically ill elderly female appearing older than stated age HEENT unremarkable Heart sounds distant no murmurs Lung sounds distant no rales Abdomen nondistended bowel sounds present nontender Extremities no edema Neuro moves all extremities insufficient strength to get out of bed For objective laboratory and imaging please see bottom of the note: 1. Abdomen and pelvis CT 03/15/2025: No acute abdominopelvic process. 2. Lower extremity CT 03/17/2025: 1. Intramedullary medardo with interlocking screws, transfixing a healing distal femur metadiaphysis fracture. No hardware complication. 2. Intramedullary medardo with interlocking screw of the tibia, partially visualized. 3. Chronic fracture of the left puboacetabular junction and the left inferior pubic ramus, unchanged. 4. The small bowels are fluid filled and mildly dilated, partially visualized, raising concern for ileus, new from prior CT on 05/16/2025. Small bowel obstruction cannot be excluded. Assessment and plan: Failure to thrive to the point now becoming bed-bound and can not care for her also with UTI and chronic liver disease * Completed IV ceftriaxone x3 doses on 03/19 * Observation status * Placement and senior care rehab, participatory with PT * Moderate rehab potential Severe acute on chronic Protein Calorie Malnutrition r/t unable to care for self and minimal appetite as evidenced by 7% weight loss in 1 month (severe), BMI chronically underweight for age (19.0), no food intake for 1 week (severe) and <50% of estimated energy needs for >6 months per diet recall (severe), severe muscle mass wasting (temporalis, deltoids, interosseous), failure to thrive and hx of alcohol use disorder * Dietary supplementation and full monitoring and evaluation of caloric recovery needs per dietary service Alcohol use disorder and previous overdose with acetaminophen 2 weeks ago, h istory of opioid abuse and overdose within the past year requiring intubation and ICU care at [facility] * No signs of alcohol intoxication or withdrawal * On thiamine for prophylaxis against Wernicke-Korsakoff syndrome * Avoid opioids and controlled substances History of femur fracture. * WBAT per orthopedics * Advance PT/OT DVT prophylaxis: SCDs * Not a candidate for anticoagulation due to liver disease Code status: Full code Disposition: * [facility] [place] [facility] admissions P [phone]; 35 minutes were involved in the assessment [id number] evaluation and physical examination review of history discussion with other physicians case management Discharge Providers Provider Date of admission: 03/16/25 13:31 Discharge Date: 03/23/25 Primary care physician: Edil Crouch PA-C Consults: 03/15/25 21:05 Consult to [facility] - Agriculture Mechanic Stat Comment: Agriculture Mechanic Consult needed for:: Other reason (Comment) Comment: Patient believes that she can not go back to her home situation, unclear if needs SNF placement or alternate disposition plan, refused to be discharge. 03/16/25 11:02 Consult to Physical Therapy Evaluate & Treat Comment: Physician Instructions: Evaluate and Treat 03/16/25 18:21 Consult to Dietitian, Adult Routine Comment: Reason For Exam: malnourished 03/17/25 10:32 Consult to Occupational Therapy Evaluate & Treat Comment: Physician Instructions: Evaluate and treat 03/18/25 13:47 Consult to Physical Therapy Evaluate & Treat Comment: Please eval and treat patient. Physician Instructions: Evaluate and Treat - Progressive WB on LLE 03/19/25 13:06 Consult to Occupational Therapy Evaluate & Treat Comment: Physician Instructions: Evaluate and treat Discharge provider: Anthony Shafer MD Exam Vital Signs (past 8 hours): Oxygen Delivery Method Room Air Oxygen Flow Rate 0 Objective Labs 03/15/25 16:46 03/15/25 16:46 [facility] Medical History Age-related osteoporosis without current pathological fracture Anxiety Arthritis C. difficile colitis Cerebrovascular disease Chronic low back pain Chronic pain Closed fracture of left distal femur Closed left clavicular fracture Colitis Coronary artery disease Depression Displaced comminuted fracture of shaft of tibia DJD (degenerative joint disease) Essential hypertension Family history of colon cancer in father Fibromyalgia Fracture, tibia GERD without esophagitis GI bleeding History of osteomyelitis History of recurrent UTIs History of vertebral compression fracture HLD (hyperlipidemia) Hypertension Immunodeficiency due to conditions classified elsewhere Insomnia Iron (Fe) deficiency anemia Left foot drop Left rib fracture Migraines Mixed hyperlipidemia Multiple fractures Nephrolithiasis Neuropathy Numbness and tingling Osteoporosis Peptic ulcer disease Primary osteoarthritis involving multiple joints Radius fracture (08/30/17) Recurrent UTI Renal disease Septic shock Stage 3b chronic kidney disease (CKD) Surgical History H/O: hysterectomy History of surgery Hx of appendectomy Hx of cholecystectomy Hx of elbow surgery Hx of kyphoplasty (~2013) Hx of kyphoplasty (04/28/19) Hx of kyphoplasty (07/28/19) Hx of tonsillectomy Status post epidural steroid injection (03/25/19) Family History Mother No known health problems COPD (chronic obstructive pulmonary disease) Father No known health problems Social History household members: significant other Smoking Status: Former smoker alcohol intake: current Discharge Plan Discharge Plan Patient Disposition: SNF Transportation: Facility vehicle I certify the postop hospital senior care care is medically necessary on a continuing basis for any conditions for which he/ she received care during this hospitalization.: Yes The receiving facility has agreed to accept transfer and provide medical treatment.: Yes Discharge orders & Medications Prescriptions: New lidocaine 5 % Adhesive Patch,Medicated 1 patch topical DAILY Qty: 8 0RF Continued Ensure Plus 0.05 gram- 1.5 kcal/mL liquid 1 ea PO TID Qty: 5688 6RF Rx Instructions: Chocolate flavor is requested. diclofenac sodium 1 % gel 2 g topical 4XD PRN (Reason: pain) Qty: 100 0RF pantoprazole [Protonix] 40 mg tablet,delayed release (DR/EC) 40 mg PO DAILY Qty: 90 3RF metoprolol tartrate 25 mg tablet 25 mg PO BID Qty: 180 1RF Rx Instructions: Take 1 Tablet PO BID ferrous sulfate [FeroSul] 325 mg (65 mg iron) tablet 325 mg PO DAILY Qty: 30 0RF thiamine mononitrate (vit B1) 100 mg tablet 100 mg PO DAILY Patient Comments: Pt reports taking 1 tablet (100mg) total daily. aspirin [Adult Aspirin Regimen] 81 mg tablet,delayed release (DR/EC) 81 mg PO DAILY trazodone 50 mg tablet See Rx Instructions PO BEDTIME PRN (Reason: insomnia) Qty: 60 5RF Rx Instructions: 1-2 tablets nightly as needed for sleep oxycodone 5 mg capsule 5 mg PO Q8H PRN (Reason: pain) Qty: 15 0RF Discontinued cephalexin 500 mg capsule 500 mg PO QID Qty: 12 0RF Follow up/Referrals: Edil Crouch PA-C [Primary Care Provider, Medical] Visit Report/Discharge Packet Stand Alone Forms: Patient Portal/API, Stroke Signs & Symptoms Discharge Data Primary Care Provider: Edil Crouch Attending Provider: Anthony Shafer Admit Date/Time: 03/16/25 13:31 Quality VTE Deep Vein Thrombosis/Pulmonary Embolism Present on Admission: No
[2025-03-22 08:00] VITALS: BP 137/70; PULSE 71; RESP 16; TEMP 36.5; O2SAT 96
--- NOTE | 2025-03-22 09:10 | OT.IPNOTE ---
Chart reviewed and attempted to see pt, however, pt reports that her body feels like it is on fire and she isn't able to work through the pain right now. Pts nurse notified. OT will re-attempt at a later time.
--- NOTE | 2025-03-22 10:38 | DIET.PN1 ---
Dietary Progress Note Assessment: f/u Met with pt at bedside, reports will not be able to tolerate the ensures today that they are too heavy on stomach right now. Denies Ensure clear again. Recent intakes have been 50-100%. F/u on if pt able to resume Ensure again or to discuss other alternatives. Encouraged PO intakes and discussed and encouraged available snacks between meals from nursing station for small freq meals. Ht: 154.94 cm Wt: 45.677 kg BMI: 19.0 Last BM: 03/14/25 (03/16/25 18:18) MNA: 7 Jaswant Score: 13 Diet: 03/16/25 Breakfast General (Regular) Diet Diet Modifications: Food Texture: Level 7 - Regular Liquid Consistency: Level 0 - Thin 03/16/25 Dinner General (Regular) Diet Diet Modifications: Nutrition Percent Meal Consumed 50% 03/21/25 18:00 Labs: RBC 3.10 X10^6/uL (4.0-5.2) L 03/15/25 16:46 Hgb 10.4 g/dL (12.0-16.0) L 03/15/25 16:46 Hct 30.3 % (36-46) L 03/15/25 16:46 Creatinine 0.92 mg/dL (0.52-1.04) 03/15/25 16:46 Electronically Signed by: Keysha Campos 03/22/25 10:38 Clinical Dietitian [address] [address]
[2025-03-22] MEDS: LIDOCAINE 5% PATCH 1 EACH TOP (11:02)
[2025-03-22] MEDS: METOPROLOL IR 25 MG TABLET PO ×2 (11:03→20:30)
[2025-03-22] MEDS: THIAMINE 100 MG TABLET PO (11:03)
[2025-03-22] MEDS: ONDANSETRON 4 MG/2 ML INJ IV ×2 (11:03→16:47)
[2025-03-22] MEDS: PANTOPRAZOLE DR 40 MG TABLET PO (11:03)
--- NOTE | 2025-03-22 11:53 | CM.DPC ---
Addendum entered by JANET Pruitt 03/22/25 15:40: ADD: Return call from Medicaid transport and they confirm [facility] can provide transport in the morning 03/23 at 0945. LAVINIA updated RN and MD and met bedside with pt and updated her and she remains agreeable with discharge plan in the AM to [facility]. Also called Mouna at [facility] and updated her on pickle solution maker time. BF Addendum entered by JANET Pruitt 03/22/25 12:27: ADD: Call from Mouna [phone] at [facility] confirming they have [facility] auth for SNF and would like her by tomorrow 03/23 for staffing and ideally before 1500. SW faxed Medicaid Transport form requesting transport tomorrow 03/23 anytime after 0900. Updated KIZZY CM and she is very appreciative and does not need any faxed clinicals or dc summary at this time. BF Original Note: DCP SNF Planning Cont: Per MD, pt remains stable to d/c to SNF once auth secured. [facility] MCR Adv requested Peer to Peer before making determination on SNF auth which was completed by Hospitalist on 03/19 before the weekend. LAVINIA called [facility] admissions and left msg and then called again later after no return call and admissions staff not in the office today but their Accounts and Patient Coordinator filling in for admissions today and SW left [facility] requesting call back with update on SNF auth status. LAVINIA spoke to pt's KIZZY CM [phone] and updated on above and she states pt was recently re-assessed for Functional Assessment and scored in the highest range and states her assessment should be able to be used for LTC placement if SNF auth denied. JANET Pruitt
--- NOTE | 2025-03-22 12:08 | P.PN_ITS ---
Subjective Subjective Date Patient Seen: 03/22/25 Interval history: Chief complaint: Weakness failure to thrive neglect at home History of present illness: 74-year-old female recently admitted 2 weeks ago with acetaminophen overdose was discharged home but did not managed well became weekend and bed-bound. Returned to the emergency department could severely weakened state unable to care for self. Findings in the emergency department significant for pyuria and bacteriuria Hospital course: 03/17: Pain control is more satisfactory today working with physical therapy tolerating dietary supplements 03/18: Pain control is more satisfactory we will be working with physical therapy 03/19: Initially difficult to arouse per nursing, though quickly arouses and is interactive without complaint Recommendations by Orthopedic Service: Progressive weight-bearing -with the goal of weightbearing as tolerated ?physical therapy consult ?she will likely require SNF placement. ? Please contact Orthopedics if there is any further questions. ? Follow up with Orthopedics 2 weeks after discharge -?? She can either follow up with Dr. Smith or Dr. Salamanca-? ultimately if she would like a ?revision of her left femoral nail she should return to [facility] 03/19: Alert, waiting placement, no complaints. 03/20: Alert, awaiting SNF placement, was participatory with physical therapy yesterday. 03/21-03/22: Participation with physical therapy sometimes limited by patient's compliance sometimes follows through Review of systems: Patient reports anorexia and weight loss No headache diplopia No chest pains palpitations shortness for breath No abdominal pain No urinary symptoms Patient reports paresthesia and leg weakness Physical exam: Frail chronically ill elderly female appearing older than stated age HEENT unremarkable Heart sounds distant no murmurs Lung sounds distant no rales Abdomen nondistended bowel sounds present nontender Extremities no edema Neuro moves all extremities insufficient strength to get out of bed For objective laboratory and imaging please see bottom of the note: 1. Abdomen and pelvis CT 03/15/2025: No acute abdominopelvic process. 2. Lower extremity CT 03/17/2025: 1. Intramedullary medardo with interlocking screws, transfixing a healing distal femur metadiaphysis fracture. No hardware complication. 2. Intramedullary medardo with interlocking screw of the tibia, partially visualized. 3. Chronic fracture of the left puboacetabular junction and the left inferior pubic ramus, unchanged. 4. The small bowels are fluid filled and mildly dilated, partially visualized, raising concern for ileus, new from prior CT on 05/16/2025. Small bowel obstruction cannot be excluded. Assessment and plan: Failure to thrive to the point now becoming bed-bound and can not care for her also with UTI and chronic liver disease * Completed IV ceftriaxone x3 doses on 03/19 * Observation status * Placement and prison rehab, participatory with PT * Moderate rehab potentialSevere acute on chronic Protein Calorie Malnutrition r/t unable to care for self and minimal appetite as evidenced by 7% weight loss in 1 month (severe), BMI chronically underweight for age (19.0), no food intake for 1 week (severe) and <50% of estimated energy needs for >6 months per diet recall (severe), severe muscle mass wasting (temporalis, deltoids, interosseous), failure to thrive and hx of alcohol use disorder * Dietary supplementation and full monitoring and evaluation of caloric recovery needs per dietary serviceAlcohol use disorder and previous overdose with acetaminophen 2 weeks ago, history of opioid abuse and overdose within the past year requiring intubation and ICU care at [facility] * No signs of alcohol intoxication or withdrawal * On thiamine for prophylaxis against Wernicke-Korsakoff syndrome * Avoid opioids and controlled substancesHistory of femur fracture. * WBAT per orthopedics * Advance PT/OTDVT prophylaxis: SCDs * Not a candidate for anticoagulation due to liver disease Code status: Full code Disposition: * ICHTHYOLOGIST lvm with [facility] admissions P [phone]; requested call back. do not anticipate connecting with their team until Saturday. * The patient at rehab level of care 35 minutes were involved in the assessment [id number] evaluation and physical examination review of history discussion with other physicians case management Exam Vital Signs (past 8 hours): - 03/22/25 08:00 Temperature 97.7 F Pulse Rate 71 Respiratory Rate 16 Blood Pressure 137/70 Pulse Oximetry 96 Oxygen Flow Rate 0 Oxygen Delivery Method Room Air Oxygen Flow Rate 0 Objective Labs 03/15/25 16:46 03/15/25 16:46 [facility] Medical History Age-related osteoporosis without current pathological fracture Anxiety Arthritis C. difficile colitis Cerebrovascular disease Chronic low back pain Chronic pain Closed fracture of left distal femur Closed left clavicular fracture Colitis Coronary artery disease Depression Displaced comminuted fracture of shaft of tibia DJD (degenerative joint disease) Essential hypertension Family history of colon cancer in father Fibromyalgia Fracture, tibia GERD without esophagitis GI bleeding History of osteomyelitis History of recurrent UTIs History of vertebral compression fracture HLD (hyperlipidemia) Hypertension Immunodeficiency due to conditions classified elsewhere Insomnia Iron (Fe) deficiency anemia Left foot drop Left rib fracture Migraines Mixed hyperlipidemia Multiple fractures Nephrolithiasis Neuropathy Numbness and tingling Osteoporosis Peptic ulcer disease Primary osteoarthritis involving multiple joints Radius fracture (08/30/17) Recurrent UTI Renal disease Septic shock Stage 3b chronic kidney disease (CKD) Surgical History H/O: hysterectomy History of surgery Hx of appendectomy Hx of cholecystectomy Hx of elbow surgery Hx of kyphoplasty (~2013) Hx of kyphoplasty (04/28/19) Hx of kyphoplasty (07/28/19) Hx of tonsillectomy Status post epidural steroid injection (03/25/19) Family History Mother No known health problems COPD (chronic obstructive pulmonary disease) Father No known health problems Social History household members: significant other Smoking Status: Former smoker alcohol intake: current Assessment & Plan Time-Based Coding :: [TOTAL MINUTES] spent with patient and on the chart (including review of chart, obtaining history, exam, reviewing outside data, placing orders, documenting exam and treatment plan, and counseling patient) on [DATE]. Quality VTE Deep Vein Thrombosis/Pulmonary Embolism Present on Admission: No
[2025-03-22] MEDS: TRAMADOL 50 MG TABLET PO ×2 (13:16→20:31)
--- NOTE | 2025-03-22 13:17 | OT.IPNOTE ---
Pt reclined in bed on entrance of OT. Pt said she was sorry, that she has never refused therapy before, but that she absolutely could not participate until her pain is managed. Pts lunch tray was present, OT offered to place it above the bed, pt refused saying she needs to be sitting up to eat and she can't tolerate that right now. Nsg notified.
[2025-03-22 20:00] VITALS: BP 123/64; PULSE 60; RESP 17; TEMP 36.4; O2SAT 97
[2025-03-23] MEDS: TRAMADOL 50 MG TABLET PO (08:55)
[2025-03-23] MEDS: ONDANSETRON 4 MG/2 ML INJ IV (08:55)
[2025-03-23] MEDS: METOPROLOL IR 25 MG TABLET PO (08:55)
[2025-03-23] MEDS: THIAMINE 100 MG TABLET PO (08:55)
[2025-03-23] MEDS: SODIUM CHLORIDE 0.9% FLUSH 10 ML IV (08:56)
[2025-03-23] MEDS: LIDOCAINE 5% PATCH 1 EACH TOP (08:56)
[2025-03-23] MEDS: OXYCODONE IR 5 MG TABLET PO (09:27)
[2025-03-23] MEDS: PANTOPRAZOLE DR 40 MG TABLET PO (09:29)
--- NOTE | 2025-03-23 10:39 | CM.DPC ---
DCP Cont. Reviewed EMR and team rounds for pt's medical status and updates. Pt has been medically cleared for d/c to [facility]. Transport is at 9:30am, faxed all d/c clinicals. No further needs are indicated at this time.
--- NOTE | 2025-03-23 11:05 | PC.NURSE ---
Transfer: Pt transfered to [facility]. She hopes to cont w/physical therapy and get strong enough to have her surgery. Reviewed hospital course with Annelise admiting nurse at facility. She hopes to be able to have her hip surgery. She does have scripts for both tramadol and oxycodone. She got a little to much medication for pain when she first arrived to the hospital and was sleepy. She was cut back. Questions answered. Admit nurse told she can call if she has questions at any time prior to 0 natali.
== END 2025-03-23 09:45 ==
LOC: ED 03-16 13:29 → AC 03-16 13:31
PROVIDERS: Emergency Medicine; Family Medicine; Admitting Provider Internal Medicine; Emergency Provider Emergency Medicine; PCP Student in an Organized Health Care Education/Training Program; Referring Provider Emergency Medicine; Visit Provider Internal Medicine
DX: N39.0 Urinary tract infection, site not specified (principal); S72.402G Unspecified fracture of lower end of left femur, subsequent encounter for closed fracture with delayed healing; M62.59 Muscle wasting and atrophy, not elsewhere classified, multiple sites; R62.7 Adult failure to thrive; R53.1 Weakness; E43 Unspecified severe protein-calorie malnutrition; K21.9 Gastro-esophageal reflux disease without esophagitis; J44.9 Chronic obstructive pulmonary disease, unspecified; I25.10 Atherosclerotic heart disease of native coronary artery without angina pectoris; I10 Essential (primary) hypertension; E78.5 Hyperlipidemia, unspecified; F10.11 Alcohol abuse, in remission; M17.12 Unilateral primary osteoarthritis, left knee; Z68.1 Body mass index [BMI] 19.9 or less, adult; Z87.891 Personal history of nicotine dependence; Z74.01 Bed confinement status; Z96.698 Presence of other orthopedic joint implants
CPT/HCPCS: 36415; 73700; 74177; 80053; 81001; 82962; 85007; 85025; 87077; 87086; 96365; 96366; 96375; 96376; 97162; 97166; 97530; 99284; G0378; J0696; J1171; J2310; J2405; Q9967

== ENCOUNTER 2025-05-01 13:03 | Emergency (ER) | payer MEDICARE, MEDICAID, SELFPAY ==
[2022-07-22 07:16] VITALS: RESP 28
[2022-07-22 14:33] VITALS: PULSE 127; RESP 38; O2SAT 100
[2025-04-12 18:58] VITALS: BMI 17.7
[2025-05-01 13:00] VITALS: BP 183/84; PULSE 82; RESP 22; O2SAT 99
[2025-05-01 13:08] VITALS: BP 183/84; PULSE 80; RESP 16; TEMP 37.1; O2SAT 100; BMI 18.2
--- NOTE | 2025-05-01 13:58 | ED_ITS ---
HPI - Female Genitourinary General Chief complaint: Urogenital-Female Stated complaint: Dx UTI,pt having pain with urination History of Present Illness HPI Narrative: 74-year-old history of COPD CAD cerebrovascular disease prior opiate and alcohol use disorder the history of femur fracture brought in for further evaluation as she is having pain head to toe today brought in via EMS but localizes pain to lower abd area. Patient reports firing her family doctor in the past and she has no current PCP and needs her pain under control left. Pt left rehab Against Medical Advice after being instructed by orthopedic MD to be more strong and conditioned to have knee surgery in the future. Patient denies chest pain, shortness of breath, nausea, vomiting, diarrhea, urinary complaints, but having chronic pain all over worse than usual. Other than what is stated 14 point review of system is negative. Related Data Home Medications ?Medication ?Instructions ?Recorded ?Confirmed aspirin 81 mg tablet,delayed 81 mg PO DAILY 04/13/24 0 04/12/25 release (Adult Aspirin Regimen) thiamine mononitrate (vit B1) 100 100 mg PO DAILY 10/1704/14/25 mg tablet Previous Rx's ?Medication ?Instructions ?Recorded food supplemt, lactose-reduced 1 ea PO TID #5,688 mL 0 11/20/23 0.05 gram-1.5 kcal/mL oral liquid (Ensure Plus) diclofenac sodium 1 % topical gel 2 g topical 4XD PRN pain #100 grams 07/27/24 ferrous sulfate 325 mg (65 mg 325 mg PO DAILY #30 tabs 08/28/24 iron) tablet (FeroSul) trazodone 50 mg tablet See Rx Instructions PO BEDTI ME PRN 10/06/24 insomnia #60 tabs metoprolol tartrate 25 mg tablet 25 mg PO BID #180 tab s 02/03/25 lidocaine 5 % topical patch 1 patch topical DAILY #8 e a 03/22/25 oxycodone 5 mg capsule 5 mg PO Q8H PRN pain #15 cap s 03/22/25 tramadol 50 mg tablet 50 mg PO TID PRN Pain, Moder ate 03/23/25 (4-6) #15 tabs cefdinir 300 mg capsule 300 mg PO BID #14 caps 04/14 cyclobenzaprine 10 mg tablet 10 mg PO Q8HR PRN Spasms #10 tabs 04/14/25 pantoprazole 40 mg tablet,delayed 40 mg PO DAILY #30 t abs 04/14/25 release nitrofurantoin 100 mg PO Q12H 5 days #10 ca ps 05/01/25 monohydrate/macrocrystals 100 mg capsule (Macrobid) Allergies Allergy/AdvReac Type Severity Reaction Status Date / Time furosemide (From Lasix) Allergy Intermediate Rash Verified 05/01/25 13:04 amitriptyline (AMITRIPTYLINE) AdvReac Intermediate Confusion Verified 05/01/25 13:04 duloxetine AdvReac Intermediate GI distress Verified 05/01/25 13:04 cyclobenzaprine AdvReac Dizziness Verified 05/01/25 13:04 Review of Systems Review of Systems ROS Unobtainable: All systems reviewed & are unremarkable except as noted in HPI and below Patient History Medical History Family history of colon cancer in father Closed fracture of left distal femur Immunodeficiency due to conditions classified elsewhere Age-related osteoporosis without current pathological fracture History of vertebral compression fracture GERD without esophagitis Primary osteoarthritis involving multiple joints Chronic low back pain Stage 3b chronic kidney disease (CKD) Mixed hyperlipidemia Essential hypertension Cerebrovascular disease Coronary artery disease Recurrent UTI Displaced comminuted fracture of shaft of tibia Septic shock Left rib fracture Closed left clavicular fracture Iron (Fe) deficiency anemia Nephrolithiasis Peptic ulcer disease History of osteomyelitis Fracture, tibia Left foot drop Numbness and tingling HLD (hyperlipidemia) C. difficile colitis Colitis Anxiety Insomnia Arthritis DJD (degenerative joint disease) Depression Fibromyalgia Migraines Multiple fractures Osteoporosis Radius fracture (08/30/17) Neuropathy History of recurrent UTIs Renal disease Hypertension Chronic pain GI bleeding Surgical History Hx of kyphoplasty (07/28/19) Hx of kyphoplasty (04/28/19) Hx of kyphoplasty (~2013) Hx of elbow surgery Hx of appendectomy Hx of cholecystectomy Status post epidural steroid injection (03/25/19) H/O: hysterectomy Hx of tonsillectomy History of surgery Family History Mother No known health problems COPD (chronic obstructive pulmonary disease) Father No known health problems tobacco type: vaping Exam Narrative Exam Narrative: GENERAL: [74] year old patient appears stated age. Well-developed patient, in mild distress. HEAD: Atraumatic. Normocephalic. EYES: Pupils equal round and reactive. Extraocular motions intact. No scleral icterus. No injection or drainage. NECK: Trachea midline. Non tender CARDIOVASCULAR: Regular rate and rhythm without murmurs, gallops, or rubs. RESPIRATORY: Clear to auscultation. Breath sounds equal bilaterally. No wheezes, rales, or rhonchi. GASTROINTESTINAL: Abdomen soft, non-tender, nondistended. EXTREMITIES: No edema or joint tenderness. BACK: Nontender without deformity or crepitance. No flank tenderness. NEURO: AOx3. SKIN: No rash or erythema of visible areas Initial Vital Signs Initial Vital Signs: Vital Signs Pulse Rate 82 05/01/25 13:00 Respiratory Rate 22 05/01/25 13:00 Blood Pressure 183/84 H 05/01/25 13:00 Pulse Oximetry 99 05/01/25 13:00 Course Orders Ordered: ED Orders 05/01/25 14:07 XR chest 1V Stat EKG-12 Lead Stat 05/01/25 15:36 Complete Blood Count AUTO DIFF Stat Comprehensive Metabolic Panel Stat Lipase Stat Troponin & CK Cardiac Panel Stat 05/01/25 17:05 Urinalysis and Microscopic Stat Urine Culture Stat Discontinued Medications Acetaminophen (Acetaminophen 325 Mg Tablet) 975 mg PO NOW ONE Stop: 05/01/25 17:57 Last Admin: 05/01/25 18:29 Dose: 975 mg Documented By: CHRISTIE Hydrocodone Bitart/Acetaminophen (Hydrocodone/Acet 5/325 Tablet) 1 tab PO NOW ONE Stop: 05/01/25 15:31 Last Admin: 05/01/25 16:20 Dose: Not Given Documented By: LORENA Ceftriaxone Sodium (Ceftriaxone 2,000 Mg Vial) 1,000 mg IM NOW ONE Stop: 05/01/25 18:48 Last Admin: 05/01/25 18:55 Dose: 1,000 mg Documented By: LORENA Ceftriaxone Sodium 1,000 mg/ (Sodium Chloride) 100 mls @ 200 mls/hr IV NOW ONE Stop: 05/01/25 18:37 Last Admin: 05/01/25 18:49 Dose: Not Given Documented By: LORENA Ketorolac Tromethamine (Ketorolac 30 Mg/Ml Vial) 15 mg IM NOW ONE Stop: 05/01/25 15:06 Last Admin: 05/01/25 15:14 Dose: 15 mg Documented By: LORENA Lidocaine HCl (Lidocaine 1% (Pf) 5 Ml) 4.2 ml INJ NOW ONE Stop: 05/01/25 18:48 Last Admin: 05/01/25 18:55 Dose: 4.2 ml Documented By: LORENA Tramadol HCl (Tramadol 50 Mg Tablet) 50 mg PO NOW ONE Stop: 05/01/25 16:17 Last Admin: 05/01/25 16:19 Dose: 50 mg Documented By: LORENA Tramadol HCl (Tramadol 50 Mg Tablet) 50 mg PO NOW ONE Stop: 05/01/25 18:45 Last Admin: 05/01/25 19:08 Dose: 50 mg Documented By: LORENA Vital Signs Vital signs: Vital Signs - 8 hr 05/01/25 13:00 05/01/25 13:08 05/01/25 15:00 Temperature 98.7 F Pulse Rate 82 80 81 Respiratory Rate 22 16 19 Blood Pressure 183/84 H 183/84 H 179/87 H Pulse Oximetry 99 100 99 Oxygen Delivery Method Room Air 05/01/25 19:20 Temperature Pulse Rate 82 Respiratory Rate 20 Blood Pressure 180/87 H Pulse Oximetry 99 Oxygen Delivery Method Room Air MDM - Female Genitourinary Lab Data 05/01/25 15:36 05/01/25 15:36 Labs: Lab Results 05/01/25 05/01/25 Range/Units 15:36 17:05 WBC 5.5 (4.5-11.0) X10^3/uL RBC 3.52 L (4.0-5.2) X10^6/uL Hgb 11.5 L (12.0-16.0) g/dL Hct 34.5 L (36-46) % MCV 97.8 (80-100) fL MCH 32.5 (26-34) PG MCHC 33.3 (30-36) % RDW 18.1 H (11.6-14.8) % Plt Count 472 H (150-400) X10^3/uL Neut % (Auto) 50.7 (50-75) % Lymph % (Auto) 39.5 (25-40) % [place] % (Auto) 6.0 (3-14) % Eos % (Auto) 1.5 L (2-4) % Baso % (Auto) 2.3 H (0-2) % Neut # (Auto) 2800 (3118-4208) /uL Lymph # (Auto) 2200 (2118-7917) /uL [place] # (Auto) 300 (0-900) /uL Eos # (Auto) 100 (0-450) /uL Baso # (Auto) 100 (0-100) /uL Sodium 132 L (137-145) mmol/L Potassium 5.0 (3.4-5.1) mmol/L Chloride 102 (98-107) mmol/L Carbon Dioxide 22 (22-32) mmol/L BUN 25 H (7-17) mg/dL Creatinine 1.16 H (0.52-1.04) mg/dL Estimated GFR 50 L (>60) mL/min BUN/Creatinine Ratio 21.6 (6-22) Glucose 112 H (70-99) mg/dL Calcium 9.1 (8.4-10.2) mg/dL Total Bilirubin 0.5 (0.2-1.3) mg/dL AST 53 H (14-36) IU/L ALT 53 H (<35) IU/L Alkaline Phosphatase 217 H (38-126) U/L Total Creatine Kinase 40 (30-135) U/L Troponin I < 0.012 (0.01-0.034) ng/mL Total Protein 7.9 (6.3-8.2) g/dL Albumin 4.2 (3.5-5.0) g/dL Globulin 3.7 (1.7-4.1) g/dL Albumin/Globulin Ratio 1.1 (1.0-2.8) Lipase 45 (23-300) U/L Urine Color Yellow Urine Appearance Cloudy Urine pH 5.5 (4.5-8.0) Ur Specific [place] 1.015 (1.000-1.035) Urine Protein 1+ H (Negative) Urine Glucose (UA) Negative (Negative) g/dL Urine Ketones Negative (NEGATIVE) Urine Occult Blood 1+ H (Negative) Urine Nitrate Positive H (Negative) Urine Bilirubin Negative (NEGATIVE) Urine Urobilinogen 0.2 (0.2) E.U./dL Ur Leukocyte Esterase 2+ H (NEGATIVE) Urine RBC 0-1/hpf (0-5/HPF) Urine WBC 30-100/hpf H (0-5/HPF) Ur Squamous Epith Cells 5-10 /hpf H (0-5/HPF) Urine Bacteria Many (>30) H (None) Ur Culture Indicated? Specimen cultured Vol Urine Centrifuged 10ml (spun) Imaging Data Chest x-ray: Radiologist's Impression: [address] [address] XRay Report Signed Patient: Emani Leiva MR#: [id number] : 1950 Acct:[id number] Age/Sex: 74 / F Date of Service: 05/01/25 Loc: ED Accession Number: [id number] Procedure: XR chest 1V Ordering Provider: Ty Ba D.O. PROCEDURE: XR CHEST 1V INDICATIONS: chest pain TECHNIQUE: One view of the chest was acquired. COMPARISON: [facility], CR, XR CHEST 1V, 04/12/2025, 13:59. [facility], CR, XR CHEST 1V, 02/28/2025, 19:00. FINDINGS: Surgical changes and devices: Right humeral hardware partially within the field of view. Lungs and pleura: Lungs are clear. No pleural effusions or pneumothorax. Mediastinum: Mediastinal contours appear normal. Heart size is normal. Bones and chest wall: No suspicious bony lesions. Overlying soft tissues appear unremarkable. IMPRESSION: No acute cardiopulmonary abnormality is seen. ECG Data Interpretation: NSR HR 76 PA 150 QRS [address]-t wave change No previous EKG to compare MDM Narrative Medical decision making narrative: All lab work, vital signs, nurse triage note, medication list, previous ER visits, and all imaging studies reviewed. Hemoglobin 11.5 WBC normal platelet 472 sodium 132 BUN 25 creatinine 1.16 glucose 112 AST 53 ALT 53 alk-phos 217 troponin normal lipase 45. Chest x-ray showed no acute process. Patient given tramadol and Rocephin here. UA positive nitrite positive 1 blood +2 leuks 3200 HPF 5-10 squamous many bacteria. DC home on Macrobid. Differential diagnosis UTI, dehydration, electrolyte derangement, STEMI, NSTEMI. Discharge Plan Departure Patient Disposition: Home Clinical Impression: Acute UTI Chronic pain Qualifiers: Chronic pain type: other chronic pain Qualified Code(s): G89.29 - Other chronic pain Instructions: DI for Urinary Tract Infection (UTI) Activity Restrictions/Additional Instructions: Return with new or worsening symptoms. Take your medicines directed. Keep hydrated. Follow up PCP this coming week. Prescriptions: New nitrofurantoin monohyd/m-cryst [Macrobid] 100 mg capsule 100 mg PO Q12H 5 Days Qty: 10 0RF Rx Instructions: must administer with a meal/food No Action Ensure Plus 0.05 gram- 1.5 kcal/mL liquid 1 ea PO TID Qty: 5688 6RF Rx Instructions: Chocolate flavor is requested. diclofenac sodium 1 % gel 2 g topical 4XD PRN (Reason: pain) Qty: 100 0RF metoprolol tartrate 25 mg tablet 25 mg PO BID Qty: 180 1RF Rx Instructions: Take 1 Tablet PO BID ferrous sulfate [FeroSul] 325 mg (65 mg iron) tablet 325 mg PO DAILY Qty: 30 0RF thiamine mononitrate (vit B1) 100 mg tablet 100 mg PO DAILY Patient Comments: Pt reports taking 1 tablet (100mg) total daily. aspirin [Adult Aspirin Regimen] 81 mg tablet,delayed release (DR/EC) 81 mg PO DAILY trazodone 50 mg tablet See Rx Instructions PO BEDTIME PRN (Reason: insomnia) Qty: 60 5RF Rx Instructions: 1-2 tablets nightly as needed for sleep cyclobenzaprine 10 mg Tablet 10 mg PO Q8HR PRN (Reason: Spasms) Qty: 10 0RF pantoprazole 40 mg Tablet,Delayed Release (Dr/Ec) 40 mg PO DAILY Qty: 30 0RF cefdinir 300 mg capsule 300 mg PO BID Qty: 14 0RF lidocaine 5 % Adhesive Patch,Medicated 1 patch topical DAILY Qty: 8 0RF oxycodone 5 mg capsule 5 mg PO Q8H PRN (Reason: pain) Qty: 15 0RF tramadol 50 mg Tablet 50 mg PO TID PRN (Reason: Pain, Moderate (4-6)) Qty: 15 0RF Referrals: Lisbet Georges DO [Primary Care Provider, Medical] Stand Alone Forms: Patient Portal/API
--- NOTE | 2025-05-01 14:07 | EKG_ITS ---
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
--- NOTE | 2025-05-01 14:07 | DI.RAD.S_ITS ---
PROCEDURE: XR CHEST 1V INDICATIONS: chest pain TECHNIQUE: One view of the chest was acquired. COMPARISON: [facility], CR, XR CHEST 1V, 04/12/2025, 13:59. [facility], CR, XR CHEST 1V, 02/28/2025, 19:00. FINDINGS: Surgical changes and devices: Right humeral hardware partially within the field of view. Lungs and pleura: Lungs are clear. No pleural effusions or pneumothorax. Mediastinum: Mediastinal contours appear normal. Heart size is normal. Bones and chest wall: No suspicious bony lesions. Overlying soft tissues appear unremarkable. IMPRESSION: No acute cardiopulmonary abnormality is seen. Dictated by: Hailey Malone M.D. on 05/01/2025 at 14:38 Approved by: Hailey Malone M.D. on 05/01/2025 at 14:39
[2025-05-01 15:00] VITALS: BP 179/87; PULSE 81; RESP 19; O2SAT 99
[2025-05-01] MEDS: KETOROLAC 30 MG/ML VIAL 15 MG IM (15:14)
[2025-05-01 15:43] LABS: Add Manual Diff / Slide Review NO; Hematocrit 34.5 % (36-46); Hemoglobin 11.5 g/dL (12.0-16.0); Lymphocytes Absolute Auto 2200 /uL (1100-4500); Mean Corpuscular HGB Conc 33.3 % (30-36); Mean Corpuscular Hemoglobin 32.5 PG (26-34); Mean Corpuscular Volume 97.8 fL (80-100); Platelet Count 472 X10^3/uL (150-400)
[2025-05-01 15:59] LABS: Alanine Aminotransferase 53 IU/L (<35); Albumin 4.2 g/dL (3.5-5.0); Albumin Globulin Ratio 1.1 (1.0-2.8); Alkaline Phosphatase 217 U/L (38-126); Blood Urea Nitrogen 25 mg/dL (7-17); Calcium 9.1 mg/dL (8.4-10.2); Carbon Dioxide 22 mmol/L (22-32); Chloride 102 mmol/L (98-107); Creatine Kinase 40 U/L (30-135); Estimated Glomerular Filt Rate 50 mL/min (>60); Globulin 3.7 g/dL (1.7-4.1); Glucose 112 mg/dL (70-99); HEMOLYSIS 25 (0-50); Lipase 45 U/L (23-300); Potassium 5.0 mmol/L (3.4-5.1); Sodium 132 mmol/L (137-145); Total Protein 7.9 g/dL (6.3-8.2)
[2025-05-01 16:10] LABS: Troponin I < 0.012 ng/mL (0.01-0.034)
[2025-05-01 18:27] LABS: Appearance Urine UA CLOUDY; Bilirubin Urine UA NEGATIVE (NEGATIVE); Color Urine UA YELLOW; Culture Indicated Urine Specimen Cultured; Glucose Urine UA NEGATIVE (Negative); Ketones Urine UA NEGATIVE (NEGATIVE); Leukocyte Esterase Urine UA 2+ (NEGATIVE); Nitrite Urine UA POSITIVE (Negative); Occult Blood Urine UA 1+ (Negative); Protein Urine UA 1+ (Negative); Specific Gravity Urine UA 1.015 (1.000-1.035); Urobilinogen Urine UA 0.2 E.U./dL (0.2); pH Urine UA 5.5 (4.5-8.0)
[2025-05-01] MEDS: ACETAMINOPHEN 325 MG TABLET 975 MG PO (18:29)
[2025-05-01] MEDS: LIDOCAINE 1% (PF) 5 ML 4.2 ML INJ (18:55)
--- NOTE | 2025-05-01 19:16 | PC.NURSE ---
Pt off VS frequently during the shift stated that she did want them done, it hurt her arm, pt declined norco when offered, Pt requested an in and out for urine collection stating that he could not use a bed willett and did not want to use a BSC.
[2025-05-01 19:20] VITALS: BP 180/87; PULSE 82; RESP 20; O2SAT 99
== END 2025-05-01 19:34 | disposition home or self-care (01) ==
PROVIDERS: Emergency Provider Family Medicine; PCP Family Medicine
DX: N39.0 Urinary tract infection, site not specified (principal); G89.29 Other chronic pain; R07.9 Chest pain, unspecified; Z86.79 Personal history of other diseases of the circulatory system
CPT/HCPCS: 36415; 51798; 71045; 80053; 81001; 82550; 83690; 84484; 85025; 87077; 87086; 87186; 93005; 96372; 99284; J0696; J1885

== ENCOUNTER 2025-05-03 10:45 | Emergency (ER) | payer MEDICARE, MEDICAID, SELFPAY ==
[2022-07-22 07:16] VITALS: RESP 28
[2022-07-22 14:33] VITALS: PULSE 127; RESP 38; O2SAT 100
[2025-04-12 18:58] VITALS: BMI 17.7
[2025-05-03] VITALS (27 sets, daily range): BP systolic 162–221; BP diastolic 81–108; PULSE 68–92; RESP 15–26; TEMP 36.1; O2SAT 98–100
--- NOTE | 2025-05-03 11:47 | EKG_ITS ---
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
--- NOTE | 2025-05-03 11:47 | DI.RAD.S_ITS ---
PROCEDURE: XR CHEST 1V INDICATIONS: Chest Pain TECHNIQUE: One view of the chest was acquired. COMPARISON: [facility], CR, XR CHEST 1V, 05/01/2025, 14:24. FINDINGS: Surgical changes and devices: Cholecystectomy clips. Overlying monitoring wires. Lungs and pleura: Lungs are clear. No pleural effusions or pneumothorax. Mediastinum: Mediastinal contours appear normal. Heart size is normal. Bones and chest wall: No suspicious bony lesions. Overlying soft tissues appear unremarkable. 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 No acute cardiopulmonary abnormality is seen. Dictated by: Tawny Weaver M.D. on 05/03/2025 at 13:11 Approved by: Tawny Weaver M.D. on 05/03/2025 at 13:12
--- NOTE | 2025-05-03 12:06 | ED_ITS ---
HPI - Fall <Melisa Koo, DO - Last Filed: 05/04/25 07:47> General Chief Complaint: Fall Stated Complaint: Fall last night Time Seen by Provider: 05/03/25 11:23 History of Present Illness HPI Narrative: Patient is 74-year-old female history of sepsis UTI accidental overdose of Tylenol presenting today with sounds like confusion. She was seen evaluated here 2 days ago diagnosed with UTI your urine culture is showing Gram-negative bacilli. Patient reports that she woke up at some point in the middle of the night and ended up upside down in her bed her head where her fetus B were her head is supposed to be an all the covers pushed around. She does not remember how this happened she also remembers waking up in a sweat. She complains of some back pain. She is nonambulatory and has not walked in about 2 years. No urinary or stool incontinence she wears a depends. She was started on Macrobid 2 days ago. Denies any trauma or fall Related Data Home Medications ?Medication ?Instructions ?Recorded ?Confirmed aspirin 81 mg tablet,delayed 81 mg PO DAILY 04/13/24 0 04/12/25 release (Adult Aspirin Regimen) thiamine mononitrate (vit B1) 100 100 mg PO DAILY 10/1704/14/25 mg tablet Previous Rx's ?Medication ?Instructions ?Recorded food supplemt, lactose-reduced 1 ea PO TID #5,688 mL 0 11/20/23 0.05 gram-1.5 kcal/mL oral liquid (Ensure Plus) diclofenac sodium 1 % topical gel 2 g topical 4XD PRN pain #100 grams 07/27/24 ferrous sulfate 325 mg (65 mg 325 mg PO DAILY #30 tabs 08/28/24 iron) tablet (FeroSul) trazodone 50 mg tablet See Rx Instructions PO BEDTI ME PRN 10/06/24 insomnia #60 tabs metoprolol tartrate 25 mg tablet 25 mg PO BID #180 tab s 02/03/25 lidocaine 5 % topical patch 1 patch topical DAILY #8 e a 03/22/25 oxycodone 5 mg capsule 5 mg PO Q8H PRN pain #15 cap s 03/22/25 tramadol 50 mg tablet 50 mg PO TID PRN Pain, Moder ate 03/23/25 (4-6) #15 tabs cefdinir 300 mg capsule 300 mg PO BID #14 caps 04/14 cyclobenzaprine 10 mg tablet 10 mg PO Q8HR PRN Spasms #10 tabs 04/14/25 pantoprazole 40 mg tablet,delayed 40 mg PO DAILY #30 t abs 04/14/25 release nitrofurantoin 100 mg PO Q12H 5 days #10 ca ps 05/01/25 monohydrate/macrocrystals 100 mg capsule (Macrobid) cefpodoxime 200 mg tablet 200 mg PO Q12H 1 week #14 ta bs 05/03/25 Allergies Allergy/AdvReac Type Severity Reaction Status Date / Time furosemide (From Lasix) Allergy Intermediate Rash Verified 05/01/25 13:04 amitriptyline (AMITRIPTYLINE) AdvReac Intermediate Confusion Verified 05/01/25 13:04 duloxetine AdvReac Intermediate GI distress Verified 05/01/25 13:04 cyclobenzaprine AdvReac Dizziness Verified 05/01/25 13:04 Patient History <Melisa Koo DO - Last Filed: 05/04/25 07:47> Medical History Family history of colon cancer in father Closed fracture of left distal femur Immunodeficiency due to conditions classified elsewhere Age-related osteoporosis without current pathological fracture History of vertebral compression fracture GERD without esophagitis Primary osteoarthritis involving multiple joints Chronic low back pain Stage 3b chronic kidney disease (CKD) Mixed hyperlipidemia Essential hypertension Cerebrovascular disease Coronary artery disease Recurrent UTI Displaced comminuted fracture of shaft of tibia Septic shock Left rib fracture Closed left clavicular fracture Iron (Fe) deficiency anemia Nephrolithiasis Peptic ulcer disease History of osteomyelitis Fracture, tibia Left foot drop Numbness and tingling HLD (hyperlipidemia) C. difficile colitis Colitis Anxiety Insomnia Arthritis DJD (degenerative joint disease) Depression Fibromyalgia Migraines Multiple fractures Osteoporosis Radius fracture (08/30/17) Neuropathy History of recurrent UTIs Renal disease Hypertension Chronic pain GI bleeding Surgical History Hx of kyphoplasty (07/28/19) Hx of kyphoplasty (04/28/19) Hx of kyphoplasty (~2013) Hx of elbow surgery Hx of appendectomy Hx of cholecystectomy Status post epidural steroid injection (03/25/19) H/O: hysterectomy Hx of tonsillectomy History of surgery Family History Mother No known health problems COPD (chronic obstructive pulmonary disease) Father No known health problems Social History household members: significant other alcohol intake: current tobacco type: vaping alcohol intake frequency: holidays/special occasions only Exam <DO Laura Dang Last Filed: 05/04/25 07:47> Initial Vital Signs Initial Vital Signs: Vital Signs Temperature 97 F L 05/03/25 10:45 Pulse Rate 87 05/03/25 10:45 Respiratory Rate 16 05/03/25 10:45 Blood Pressure 169/92 H 05/03/25 10:45 Pulse Oximetry 99 05/03/25 10:45 Oxygen Delivery Method Room Air 05/03/25 10:45 GENERAL: Alert well-appearing 74-year-old female HEENT: Head atraumatic,EOMI, pupils reactive, face symmetric, moist mucous membranes CARDIOVASCULAR: Regular rate and rhythm without murmurs, rubs or gallops. RESPIRATORY: Breath sounds equal bilaterally, no wheezes rales or rhonchi. ABDOMEN: Soft, nontender. Normoactive bowel sounds all 4 quadrants. No guarding or rebound. BACK: No vertebral tenderness no step-off EXTREMITIES: Normal range of motion, no clubbing or edema. Neurovascularly intact NEUROLOGICAL: Alert and oriented x4. Cranial nerves II through XII grossly intact. SKIN: Warm, dry, no laceration, no petechiae, no rashes or lesions. <Reginaldo He DO - Last Filed: 05/03/25 17:24> Initial Vital Signs Initial Vital Signs: Vital Signs Temperature 97 F L 05/03/25 10:45 Pulse Rate 87 05/03/25 10:45 Respiratory Rate 16 05/03/25 10:45 Blood Pressure 169/92 H 05/03/25 10:45 Pulse Oximetry 99 05/03/25 10:45 Oxygen Delivery Method Room Air 05/03/25 10:45 Course <Melisa Koo DO - Last Filed: 05/04/25 07:47> Orders Ordered: Discontinued Medications Aspirin (Aspirin 81 Mg Chew Tab) 324 mg PO NOW ONE Stop: 05/03/25 11:46 Last Admin: 05/03/25 16:11 Dose: Not Given Documented By: NELI Ceftriaxone Sodium 1,000 mg/ (Sodium Chloride) 100 mls @ 200 mls/hr IV NOW ONE Stop: 05/03/25 13:39 Last Infusion: 05/03/25 16:29 Dose: Infused Documented By: Admin: 05/03/25 15:38 Dose: 200 mls/hr Documented By: NELI Morphine Sulfate (Morphine 2 Mg/Ml Inj) 2 mg IV NOW ONE Stop: 05/03/25 16:51 Last Admin: 05/03/25 17:03 Dose: 2 mg Documented By: NELI Vital Signs Vital signs: Vital Signs - 8 hr 05/03/25 10:45 05/03/25 11:12 05/03/25 11:26 Temperature 97 F L Pulse Rate 87 72 Respiratory Rate 16 Blood Pressure 169/92 H 212/107 H Pulse Oximetry 99 100 Oxygen Delivery Method Room Air 05/03/25 11:26 05/03/25 11:30 05/03/25 11:30 Temperature Pulse Rate 70 72 Respiratory Rate 16 16 Blood Pressure 220/105 H Pulse Oximetry 100 100 Oxygen Delivery Method 05/03/25 11:45 05/03/25 11:45 05/03/25 12:00 Temperature Pulse Rate 68 Respiratory Rate 16 Blood Pressure 221/108 H 211/100 H Pulse Oximetry 98 Oxygen Delivery Method 05/03/25 12:00 05/03/25 12:15 05/03/25 12:15 Temperature Pulse Rate 71 77 Respiratory Rate 23 23 Blood Pressure 204/101 H Pulse Oximetry 100 100 Oxygen Delivery Method 05/03/25 12:30 05/03/25 12:45 05/03/25 12:45 Temperature Pulse Rate 72 73 Respiratory Rate 23 16 Blood Pressure 204/93 H Pulse Oximetry 100 100 Oxygen Delivery Method 05/03/25 13:00 05/03/25 13:00 05/03/25 13:30 Temperature Pulse Rate 73 77 Respiratory Rate 22 15 Blood Pressure 190/89 H Pulse Oximetry 100 100 Oxygen Delivery Method 05/03/25 13:31 05/03/25 13:31 05/03/25 13:45 Temperature Pulse Rate 77 78 Respiratory Rate 18 15 Blood Pressure 204/104 H Pulse Oximetry 100 99 Oxygen Delivery Method 05/03/25 13:45 05/03/25 14:00 05/03/25 14:01 Temperature Pulse Rate 80 Respiratory Rate 17 Blood Pressure 201/95 H 162/81 H Pulse Oximetry 100 Oxygen Delivery Method 05/03/25 14:01 05/03/25 14:30 05/03/25 14:30 Temperature Pulse Rate 80 81 Respiratory Rate 15 24 Blood Pressure 186/89 H Pulse Oximetry 100 99 Oxygen Delivery Method 05/03/25 15:00 05/03/25 15:30 05/03/25 15:30 Temperature Pulse Rate 85 82 Respiratory Rate 26 H Blood Pressure 195/94 H Pulse Oximetry 100 100 Oxygen Delivery Method 05/03/25 15:45 05/03/25 15:45 05/03/25 16:00 Temperature Pulse Rate 85 Respiratory Rate Blood Pressure 188/96 H 187/94 H Pulse Oximetry 100 Oxygen Delivery Method 05/03/25 16:00 Temperature Pulse Rate 84 Respiratory Rate Blood Pressure Pulse Oximetry 99 Oxygen Delivery Method <Reginaldo He DO - Last Filed: 05/03/25 17:24> Orders Ordered: Discontinued Medications Aspirin (Aspirin 81 Mg Chew Tab) 324 mg PO NOW ONE Stop: 05/03/25 11:46 Last Admin: 05/03/25 16:11 Dose: Not Given Documented By: NELI Ceftriaxone Sodium 1,000 mg/ (Sodium Chloride) 100 mls @ 200 mls/hr IV NOW ONE Stop: 05/03/25 13:39 Last Infusion: 05/03/25 16:29 Dose: Infused Documented By: Admin: 05/03/25 15:38 Dose: 200 mls/hr Documented By: NELI Morphine Sulfate (Morphine 2 Mg/Ml Inj) 2 mg IV NOW ONE Stop: 05/03/25 16:51 Last Admin: 05/03/25 17:03 Dose: 2 mg Documented By: NELI Vital Signs Vital signs: Vital Signs - 8 hr 05/03/25 10:45 05/03/25 11:12 05/03/25 11:26 Temperature 97 F L Pulse Rate 87 72 Respiratory Rate 16 Blood Pressure 169/92 H 212/107 H Pulse Oximetry 99 100 Oxygen Delivery Method Room Air 05/03/25 11:26 05/03/25 11:30 05/03/25 11:30 Temperature Pulse Rate 70 72 Respiratory Rate 16 16 Blood Pressure 220/105 H Pulse Oximetry 100 100 Oxygen Delivery Method 05/03/25 11:45 05/03/25 11:45 05/03/25 12:00 Temperature Pulse Rate 68 Respiratory Rate 16 Blood Pressure 221/108 H 211/100 H Pulse Oximetry 98 Oxygen Delivery Method 05/03/25 12:00 05/03/25 12:15 05/03/25 12:15 Temperature Pulse Rate 71 77 Respiratory Rate 23 23 Blood Pressure 204/101 H Pulse Oximetry 100 100 Oxygen Delivery Method 05/03/25 12:30 05/03/25 12:45 05/03/25 12:45 Temperature Pulse Rate 72 73 Respiratory Rate 23 16 Blood Pressure 204/93 H Pulse Oximetry 100 100 Oxygen Delivery Method 05/03/25 13:00 05/03/25 13:00 05/03/25 13:30 Temperature Pulse Rate 73 77 Respiratory Rate 22 15 Blood Pressure 190/89 H Pulse Oximetry 100 100 Oxygen Delivery Method 05/03/25 13:31 05/03/25 13:31 05/03/25 13:45 Temperature Pulse Rate 77 78 Respiratory Rate 18 15 Blood Pressure 204/104 H Pulse Oximetry 100 99 Oxygen Delivery Method 05/03/25 13:45 05/03/25 14:00 05/03/25 14:01 Temperature Pulse Rate 80 Respiratory Rate 17 Blood Pressure 201/95 H 162/81 H Pulse Oximetry 100 Oxygen Delivery Method 05/03/25 14:01 05/03/25 14:30 05/03/25 14:30 Temperature Pulse Rate 80 81 Respiratory Rate 15 24 Blood Pressure 186/89 H Pulse Oximetry 100 99 Oxygen Delivery Method 05/03/25 15:00 05/03/25 15:30 05/03/25 15:30 Temperature Pulse Rate 85 82 Respiratory Rate 26 H Blood Pressure 195/94 H Pulse Oximetry 100 100 Oxygen Delivery Method 05/03/25 15:45 05/03/25 15:45 05/03/25 16:00 Temperature Pulse Rate 85 Respiratory Rate Blood Pressure 188/96 H 187/94 H Pulse Oximetry 100 Oxygen Delivery Method 05/03/25 16:00 Temperature Pulse Rate 84 Respiratory Rate Blood Pressure Pulse Oximetry 99 Oxygen Delivery Method MDM - Fall <Melisa Koo, DO - Last Filed: 05/04/25 07:47> Lab Data 05/03/25 12:38 05/03/25 16:39 Labs: Lab Results 05/03/25 05/03/25 Range/Units 12:38 16:39 WBC 6.3 (4.5-11.0) X10^3/uL RBC 3.94 L (4.0-5.2) X10^6/uL Hgb 13.0 (12.0-16.0) g/dL Hct 38.3 (36-46) % MCV 97.1 (80-100) fL MCH 33.0 (26-34) PG MCHC 34.0 (30-36) % RDW 18.3 H (11.6-14.8) % Plt Count 495 H (150-400) X10^3/uL Neut % (Auto) Not Reportable Lymph % (Auto) Not Reportable [place] % (Auto) Not Reportable Eos % (Auto) Not Reportable Baso % (Auto) Not Reportable Lymph # (Auto) Not Reportable [place] # (Auto) Not Reportable Baso # (Auto) Not Reportable Total Counted 100 Seg Neutrophils % 45.0 (38-70) % Lymphocytes % (Manual) 40.0 (25-45) % Monocytes % (Manual) 7.0 (2-11) % Eosinophils % (Manual) 4.0 (2-4) % Basophils % (Manual) 4.0 H (0-1) % Neutrophils # (Manual) 2835 L (0985-3163) /uL Platelet Estimate Increased on smear RBC Morphology Normal morphology Sodium 129 L (137-145) mmol/L Potassium 5.2 H (3.4-5.1) mmol/L Chloride 99 (98-107) mmol/L Carbon Dioxide 14 L (22-32) mmol/L BUN 23 H (7-17) mg/dL Creatinine 1.07 H (0.52-1.04) mg/dL Estimated GFR 55 L (>60) mL/min BUN/Creatinine Ratio 21.5 (6-22) Glucose 107 H (70-99) mg/dL Lactate 1.8 (0.7-2.1) mmol/L Calcium 9.7 (8.4-10.2) mg/dL Magnesium Cancelled Total Bilirubin 0.7 (0.2-1.3) mg/dL AST 39 H (14-36) IU/L ALT 39 H (<35) IU/L Alkaline Phosphatase 216 H (38-126) U/L Total Creatine Kinase 174 H (30-135) U/L Troponin I < 0.012 (0.01-0.034) ng/mL NT-Pro-B Natriuret Pep Cancelled Total Protein 9.3 H (6.3-8.2) g/dL Albumin 4.8 (3.5-5.0) g/dL Globulin 4.5 H (1.7-4.1) g/dL Albumin/Globulin Ratio 1.1 (1.0-2.8) Lipase 72 D (23-300) U/L Procalcitonin 18.6 H (<0.5) ng/mL Salicylates < 1.0 (<20) mg/dL Acetaminophen 29 (10-30) ug/mL Ethyl Alcohol < 10 (<10) mg/dL Imaging Data Chest x-ray: Radiologist's Impression: PROCEDURE: XR CHEST 1V INDICATIONS: Chest Pain TECHNIQUE: One view of the chest was acquired. COMPARISON: [facility], , XR CHEST 1V, 05/01/2025, 14:24. FINDINGS: Surgical changes and devices: Cholecystectomy clips. Overlying monitoring wires. Lungs and pleura: Lungs are clear. No pleural effusions or pneumothorax. Mediastinum: Mediastinal contours appear normal. Heart size is normal. Bones and chest wall: No suspicious bony lesions. Overlying soft tissues appear unremarkable. 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 No acute cardiopulmonary abnormality is seen. Dictated by: Tawny Weaver M.D. on 05/03/2025 at 13:11 ECG Data Attestation: I personally reviewed and interpreted this ECG as follows: Interpretation: Normal sinus rhythm rate 74 WV interval 128 QRS [address] changes similar to previous EKGs MDM Narrative Medical decision making narrative: MDM CC: Confusion Complicating co-morbidities: Recurrent UTI, frequent admissions Data collected from: Patient Medical records reviewed: Urinalysis from 2 days ago does show Gram-negative bacilli awaiting culture and sensitivity, prior urinalysis shows Klebsiella pneumonia in sensitive to Macrobid Differential considered: Sepsis, intracranial hemorrhage overdose Exam documented above, pertinent findings include: Alert oriented 74-year-old female appears well no evidence of trauma Lab Test results independently reviewed as above. Pertinent findings: No leukocytosis WBC is 6.3 Independently reviewed EKG as above Imaging studies independently reviewed: Head CT no intracranial hemorrhage or abnormality Chest x-ray vertebroplasty cement in upper left spine no acute cardiopulmonary process Consultations: [ ] Treatments: Rocephin Re-evaluations: Patient is a very hard blood draw and IV. Discussion: Patient is 74-year-old female history of recurrent UTI she does have Gram-negative bacilli in her urine from 2 days ago prior culture is in sensitive to Macrobid she is currently on Macrobid. She has no leukocytosis awaiting rest of blood work but appears well hemodynamically stable nontoxic. Head CT and imaging his overall reassuring. Signed out to 1500: Patient signed out to me by Dr. Gibbs, patient came in complaining of some confusion, patient was previously here in the emergency department and had a urinary tract infection. Patient has had multiple evaluations by our social worker psychiatric here and has refused transport/placement to any other place, she prefers to go home. According to review of records patient does have a culture sensitivity showing Klebsiella pneumonia that resistant to Macrobid therefore patient has been given Rocephin already. Final disposition pending CT head and lab work. <Reginaldo He, DO - Last Filed: 05/03/25 17:24> Lab Data Labs: Lab Results 05/03/25 05/03/25 Range/Units 12:38 16:39 WBC 6.3 (4.5-11.0) X10^3/uL RBC 3.94 L (4.0-5.2) X10^6/uL Hgb 13.0 (12.0-16.0) g/dL Hct 38.3 (36-46) % MCV 97.1 (80-100) fL MCH 33.0 (26-34) PG MCHC 34.0 (30-36) % RDW 18.3 H (11.6-14.8) % Plt Count 495 H (150-400) X10^3/uL Neut % (Auto) Not Reportable Lymph % (Auto) Not Reportable [place] % (Auto) Not Reportable Eos % (Auto) Not Reportable Baso % (Auto) Not Reportable Lymph # (Auto) Not Reportable [place] # (Auto) Not Reportable Baso # (Auto) Not Reportable Total Counted 100 Seg Neutrophils % 45.0 (38-70) % Lymphocytes % (Manual) 40.0 (25-45) % Monocytes % (Manual) 7.0 (2-11) % Eosinophils % (Manual) 4.0 (2-4) % Basophils % (Manual) 4.0 H (0-1) % Neutrophils # (Manual) 2835 L (4109-6075) /uL Platelet Estimate Increased on smear RBC Morphology Normal morphology Sodium 129 L (137-145) mmol/L Potassium 5.2 H (3.4-5.1) mmol/L Chloride 99 (98-107) mmol/L Carbon Dioxide 14 L (22-32) mmol/L BUN 23 H (7-17) mg/dL Creatinine 1.07 H (0.52-1.04) mg/dL Estimated GFR 55 L (>60) mL/min BUN/Creatinine Ratio 21.5 (6-22) Glucose 107 H (70-99) mg/dL Lactate 1.8 (0.7-2.1) mmol/L Calcium 9.7 (8.4-10.2) mg/dL Magnesium Cancelled Total Bilirubin 0.7 (0.2-1.3) mg/dL AST 39 H (14-36) IU/L ALT 39 H (<35) IU/L Alkaline Phosphatase 216 H (38-126) U/L Total Creatine Kinase 174 H (30-135) U/L Troponin I < 0.012 (0.01-0.034) ng/mL NT-Pro-B Natriuret Pep Cancelled Total Protein 9.3 H (6.3-8.2) g/dL Albumin 4.8 (3.5-5.0) g/dL Globulin 4.5 H (1.7-4.1) g/dL Albumin/Globulin Ratio 1.1 (1.0-2.8) Lipase 72 D (23-300) U/L Procalcitonin 18.6 H (<0.5) ng/mL Salicylates < 1.0 (<20) mg/dL Acetaminophen 29 (10-30) ug/mL Ethyl Alcohol < 10 (<10) mg/dL MDM Narrative Medical decision making narrative: MDM CC: Confusion Complicating co-morbidities: Recurrent UTI, frequent admissions Data collected from: Patient Medical records reviewed: Urinalysis from 2 days ago does show Gram-negative bacilli awaiting culture and sensitivity, prior urinalysis shows Klebsiella pneumonia in sensitive to Macrobid Differential considered: Sepsis, intracranial hemorrhage overdose Exam documented above, pertinent findings include: Alert oriented 74-year-old female appears well no evidence of trauma Lab Test results independently reviewed as above. Pertinent findings: No leukocytosis WBC is 6.3 Independently reviewed EKG as above Imaging studies independently reviewed: Head CT no intracranial hemorrhage or abnormality Chest x-ray vertebroplasty cement in upper left spine no acute cardiopulmonary process Consultations: [ ] Treatments: Rocephin Re-evaluations: Patient is a very hard blood draw and IV. Discussion: Patient is 74-year-old female history of recurrent UTI she does have Gram-negative bacilli in her urine from 2 days ago prior culture is in sensitive to Macrobid she is currently on Macrobid. She has no leukocytosis awaiting rest of blood work but appears well hemodynamically stable nontoxic. Head CT and imaging his overall reassuring. Signed out to 1500: Patient signed out to me by Dr. Gibbs, patient came in complaining of some confusion, patient was previously here in the emergency department and had a urinary tract infection. Patient has had multiple evaluations by our social worker psychiatric here and has refused transport/placement to any other place, she prefers to go home. According to review of records patient does have a culture sensitivity showing Klebsiella pneumonia that resistant to Macrobid therefore patient has been given Rocephin already. Final disposition pending CT head and lab work. Lab work unremarkable, CT head without any acute findings, at my time of evaluation patient is A&O x4 answering all questions appropriately. She is just complaining of a dull headache which she states that she has a history of migraines. Patient's urine cultures still in preliminary, this was obtained on 05/01/25 however previously did show Klebsiella, sensitive to 3rd generation cephalosporin therefore we will send patient home with oral antibiotics Discharge Plan Departure Patient Disposition: Home Clinical Impression: Acute UTI Instructions: DI for Urinary Tract Infection (UTI) Activity Restrictions/Additional Instructions: Please start taking the new antibiotic, stop taking the Macrobid antibiotic Please follow up with the primary care doctor Please read the discharge instructions sheet carefully and bring all papers to all doctor follow-up visits, as it may contain information that your doctor may want to see. Disease processes change and evolve, if your symptoms worsen or if you develop any new symptoms that are concerning to you please return for evaluation. Your evaluation today does not show any evidence of any life- threatening/serious illnesses requiring admission to the hospital or surgery. Please follow-up with your doctor for re-evaluation in approximately 1 day. Seek immediate medical attention for any worrisome symptoms. *If you do not have a primary care provider please contact the [facility] Resource line at [phone]. They will ask some questions about your medical history and help get you set up with a doctor in the community. Prescriptions: New cefpodoxime 200 mg tablet 200 mg PO Q12H 7 Days Qty: 14 0RF Rx Instructions: must administer with a meal/food No Action Ensure Plus 0.05 gram- 1.5 kcal/mL liquid 1 ea PO TID Qty: 5688 6RF Rx Instructions: Chocolate flavor is requested. diclofenac sodium 1 % gel 2 g topical 4XD PRN (Reason: pain) Qty: 100 0RF metoprolol tartrate 25 mg tablet 25 mg PO BID Qty: 180 1RF Rx Instructions: Take 1 Tablet PO BID ferrous sulfate [FeroSul] 325 mg (65 mg iron) tablet 325 mg PO DAILY Qty: 30 0RF thiamine mononitrate (vit B1) 100 mg tablet 100 mg PO DAILY Patient Comments: Pt reports taking 1 tablet (100mg) total daily. aspirin [Adult Aspirin Regimen] 81 mg tablet,delayed release (DR/EC) 81 mg PO DAILY trazodone 50 mg tablet See Rx Instructions PO BEDTIME PRN (Reason: insomnia) Qty: 60 5RF Rx Instructions: 1-2 tablets nightly as needed for sleep cyclobenzaprine 10 mg Tablet 10 mg PO Q8HR PRN (Reason: Spasms) Qty: 10 0RF pantoprazole 40 mg Tablet,Delayed Release (Dr/Ec) 40 mg PO DAILY Qty: 30 0RF cefdinir 300 mg capsule 300 mg PO BID Qty: 14 0RF lidocaine 5 % Adhesive Patch,Medicated 1 patch topical DAILY Qty: 8 0RF oxycodone 5 mg capsule 5 mg PO Q8H PRN (Reason: pain) Qty: 15 0RF tramadol 50 mg Tablet 50 mg PO TID PRN (Reason: Pain, Moderate (4-6)) Qty: 15 0RF nitrofurantoin monohyd/m-cryst [Macrobid] 100 mg capsule 100 mg PO Q12H 5 Days Qty: 10 0RF Rx Instructions: must administer with a meal/food Referrals: Lisbet Georges DO [Primary Care Provider, Medical] Stand Alone Forms: Patient Portal/API
[2025-05-03 12:58] LABS: Add Manual Diff / Slide Review YES; Hematocrit 38.3 % (36-46); Hemoglobin 13.0 g/dL (12.0-16.0); Mean Corpuscular HGB Conc 34.0 % (30-36); Mean Corpuscular Hemoglobin 33.0 PG (26-34); Mean Corpuscular Volume 97.1 fL (80-100); Platelet Count 495 X10^3/uL (150-400)
[2025-05-03 13:06] LABS: Lactate (Lactic Acid) 1.8 mmol/L (0.7-2.1)
[2025-05-03 13:24] LABS: Basophils Percent Manual 4.0 % (0-1); Eosinophils Percent Manual 4.0 % (2-4); Lymphocytes Percent Manual 40.0 % (25-45); Monocytes Percent Manual 7.0 % (2-11); Neutrophils Absolute Manual 2835 /uL (3000-5900); Segmented Neutrophils Percent 45.0 % (38-70); Total Cells Counted 100
[2025-05-03 13:25] LABS: RBC Morphology Normal Morphology
--- NOTE | 2025-05-03 14:21 | PC.NURSE ---
pt found with skin break down on left dressing. Pt resorts current dressing in place for two weeks. cleaned site, good cap refill. appears to be healing. Padded adhesive dressing placed and will inform primary RN to focus on frequent positional changes.
--- NOTE | 2025-05-03 15:12 | DI.CT.S_ITS ---
PROCEDURE: CT HEAD/BRAIN WO CON INDICATIONS: AMs/ confusion TECHNIQUE: Noncontrast 4.5 mm thick angled axial sections acquired from the foramen magnum to the vertex, with coronal and sagittal reformats. For radiation dose reduction, the following was used: automated exposure control, adjustment of mA and/or kV according to patient size. COMPARISON: [facility], CT, CT HEAD/BRAIN WO CON, 04/12/2025, 13:22. FINDINGS: Image quality: Diagnostic. CSF spaces: Basal cisterns are patent. No extra-axial fluid collections. The ventricles are symmetric in size and shape. Brain: No intracranial bleeds or mass effect. There is cerebral volume loss, with resultant ventricular and sulcal prominence. There are periventricular and deep white matter chronic small vessel ischemic changes. There is intracranial internal carotid artery atherosclerosis. Skull and face: Calvarium and visualized facial bones appear intact, without suspicious lesions. Sinuses: Visualized sinuses and mastoids are clear. IMPRESSION: No CT evidence of acute intracranial process. Age-appropriate cerebral cortical volume loss and chronic microvascular ischemic changes. Stable exam. Dictated by: Tawny Weaver M.D. on 05/03/2025 at 15:57 Approved by: Tawny Weaver M.D. on 05/03/2025 at 15:59
[2025-05-03 17:03] LABS: Acetaminophen 29 ug/mL (10-30); Ethanol (ETOH) < 10 mg/dL (<10); Salicylate < 1.0 mg/dL (<20)
[2025-05-03] MEDS: MORPHINE 2 MG/ML INJ IV (17:03)
[2025-05-03 17:04] LABS: Alanine Aminotransferase 39 IU/L (<35); Albumin 4.8 g/dL (3.5-5.0); Albumin Globulin Ratio 1.1 (1.0-2.8); Alkaline Phosphatase 216 U/L (38-126); Blood Urea Nitrogen 23 mg/dL (7-17); Calcium 9.7 mg/dL (8.4-10.2); Carbon Dioxide 14 mmol/L (22-32); Chloride 99 mmol/L (98-107); Creatine Kinase 174 U/L (30-135); Estimated Glomerular Filt Rate 55 mL/min (>60); Globulin 4.5 g/dL (1.7-4.1); Glucose 107 mg/dL (70-99); HEMOLYSIS 40 (0-50); Lipase 72 U/L (23-300); Potassium 5.2 mmol/L (3.4-5.1); Sodium 129 mmol/L (137-145); Total Protein 9.3 g/dL (6.3-8.2)
[2025-05-03 17:17] LABS: Troponin I < 0.012 ng/mL (0.01-0.034)
[2025-05-03 17:52] LABS: Procalcitonin 18.6 ng/mL (<0.5)
== END 2025-05-03 17:59 | disposition home or self-care (01) ==
PROVIDERS: Emergency Medicine; Emergency Provider Student in an Organized Health Care Education/Training Program; PCP Family Medicine
DX: N39.0 Urinary tract infection, site not specified (principal); R41.0 Disorientation, unspecified; M54.9 Dorsalgia, unspecified; R07.9 Chest pain, unspecified; W19.XXXA Unspecified fall, initial encounter
CPT/HCPCS: 36415; 70450; 71045; 80053; 80320; 80329; 82550; 83605; 83690; 84145; 84484; 85007; 85025; 87040; 93005; 93010; 99284; G0480; J0696; J2270

== ENCOUNTER 2025-05-05 18:22 | Inpatient (IN) | payer MEDICARE, MEDICAID, SELFPAY ==
[2022-07-22 07:16] VITALS: RESP 28
[2022-07-22 14:33] VITALS: PULSE 127; RESP 38; O2SAT 100
[2025-04-12 18:58] VITALS: BMI 17.7
[2025-05-05] VITALS (14 sets, daily range): BP systolic 142–185; BP diastolic 65–85; PULSE 75–83; RESP 12–26; TEMP 36.4; O2SAT 98–100
--- NOTE | 2025-05-05 19:53 | ED_ITS ---
HPI - Female Genitourinary General Chief complaint: Urogenital-Female Stated complaint: UTI Time Seen by Provider: 05/05/25 19:45 Source: patient, EMS, RN notes reviewed and old records reviewed Mode of arrival: EMS Limitations: no limitations History of Present Illness HPI Narrative: 74-year-old female history COPD, CAD, cerebrovascular disease, prior opiate and alcohol use disorder, of sepsis/UTI prior accidental overdose on Tylenol. Patient was seen on 05/01/25 started on Macrobid and then 05/03/2025 and change to cefpodoxime. Patient thought she was taking her antibiotics but states she has gotten confused and when count did in the bottle. She has not been taking them regularly. She notes fevers and chills with night sweats last night and into today. She notes she has been confused although she is conversant. She notes a headache. Denies any vision changes. Denies chest pain or shortness of breath. She has had some nausea but no vomiting. Denies any abdominal back or flank pain. She notes she had has dysuria feels like her UTI might be back. Patient denies any issues with bowel movements. Denies any new swelling in extremities. Denies any new weakness. Related Data Home Medications ?Medication ?Instructions ?Recorded ?Confirmed aspirin 81 mg tablet,delayed 81 mg PO DAILY 04/13/24 0 04/12/25 release (Adult Aspirin Regimen) thiamine mononitrate (vit B1) 100 100 mg PO DAILY 10/1704/14/25 mg tablet Previous Rx's ?Medication ?Instructions ?Recorded food supplemt, lactose-reduced 1 ea PO TID #5,688 mL 0 11/20/23 0.05 gram-1.5 kcal/mL oral liquid (Ensure Plus) diclofenac sodium 1 % topical gel 2 g topical 4XD PRN pain #100 grams 07/27/24 ferrous sulfate 325 mg (65 mg 325 mg PO DAILY #30 tabs 08/28/24 iron) tablet (FeroSul) trazodone 50 mg tablet See Rx Instructions PO BEDTI ME PRN 10/06/24 insomnia #60 tabs metoprolol tartrate 25 mg tablet 25 mg PO BID #180 tab s 02/03/25 lidocaine 5 % topical patch 1 patch topical DAILY #8 e a 03/22/25 oxycodone 5 mg capsule 5 mg PO Q8H PRN pain #15 cap s 03/22/25 tramadol 50 mg tablet 50 mg PO TID PRN Pain, Moder ate 03/23/25 (4-6) #15 tabs cefdinir 300 mg capsule 300 mg PO BID #14 caps 04/14 cyclobenzaprine 10 mg tablet 10 mg PO Q8HR PRN Spasms #10 tabs 04/14/25 pantoprazole 40 mg tablet,delayed 40 mg PO DAILY #30 t abs 04/14/25 release nitrofurantoin 100 mg PO Q12H 5 days #10 ca ps 05/01/25 monohydrate/macrocrystals 100 mg capsule (Macrobid) cefpodoxime 200 mg tablet 200 mg PO Q12H 1 week #14 ta bs 05/03/25 Allergies Allergy/AdvReac Type Severity Reaction Status Date / Time furosemide (From Lasix) Allergy Intermediate Rash Verified 05/01/25 13:04 amitriptyline (AMITRIPTYLINE) AdvReac Intermediate Confusion Verified 05/01/25 13:04 duloxetine AdvReac Intermediate GI distress Verified 05/01/25 13:04 cyclobenzaprine AdvReac Dizziness Verified 05/01/25 13:04 Review of Systems Review of Systems ROS Unobtainable: All systems reviewed & are unremarkable except as noted in HPI and below Patient History Medical History Family history of colon cancer in father Closed fracture of left distal femur Immunodeficiency due to conditions classified elsewhere Age-related osteoporosis without current pathological fracture History of vertebral compression fracture GERD without esophagitis Primary osteoarthritis involving multiple joints Chronic low back pain Stage 3b chronic kidney disease (CKD) Mixed hyperlipidemia Essential hypertension Cerebrovascular disease Coronary artery disease Recurrent UTI Displaced comminuted fracture of shaft of tibia Septic shock Left rib fracture Closed left clavicular fracture Iron (Fe) deficiency anemia Nephrolithiasis Peptic ulcer disease History of osteomyelitis Fracture, tibia Left foot drop Numbness and tingling HLD (hyperlipidemia) C. difficile colitis Colitis Anxiety Insomnia Arthritis DJD (degenerative joint disease) Depression Fibromyalgia Migraines Multiple fractures Osteoporosis Radius fracture (08/30/17) Neuropathy History of recurrent UTIs Renal disease Hypertension Chronic pain GI bleeding Surgical History Hx of kyphoplasty (07/28/19) Hx of kyphoplasty (04/28/19) Hx of kyphoplasty (~2013) Hx of elbow surgery Hx of appendectomy Hx of cholecystectomy Status post epidural steroid injection (03/25/19) H/O: hysterectomy Hx of tonsillectomy History of surgery Family History Mother No known health problems COPD (chronic obstructive pulmonary disease) Father No known health problems tobacco type: vaping Exam Narrative Exam Narrative: GENERAL: Alert and oriented x three, patient is mildly confused but conversant. Pleasant. HEENT: Head normocephalic, atraumatic, EOMI, pupils reactive, face symmetric, moist mucous membranes, no facial droop. NECK: Supple, full range of motion CARDIOVASCULAR: Regular rate and rhythm without murmurs, rubs or gallops. RESPIRATORY: Breath sounds equal bilaterally, no wheezes rales or rhonchi. No tachypnea or accessory muscle use ABDOMEN: Soft, nontender. Normoactive bowel sounds all 4 quadrants. No guarding or rebound, rigidity, no mass : No CVA tenderness EXTREMITIES: No clubbing or edema. A warmth or erythema. Neurovascularly intact. Generalized weakness but can lift both legs off the bed. Has a normal range of motion in her bilateral upper extremities. NEUROLOGICAL: Cranial nerves II through XII grossly intact. Moving all extremities SKIN: Warm, dry, no petechiae, no rashes or lesions. Initial Vital Signs Initial Vital Signs: Vital Signs Temperature 97.6 F 05/05/25 18:25 Pulse Rate 80 05/05/25 18:25 Respiratory Rate 16 05/05/25 18:25 Blood Pressure 185/83 H 05/05/25 18:25 Pulse Oximetry 99 05/05/25 18:25 Oxygen Delivery Method Room Air 05/05/25 18:25 Course Orders Ordered: ED Orders 05/05/25 20:18 CT head/brain wo con Stat XR chest 1V Stat Covid-19 + FLU A/B + RSV - PCR Stat Urinalysis and Microscopic Stat EKG-12 Lead Stat 05/05/25 20:56 Blood Culture Stat Complete Blood Count AUTO DIFF Stat Comprehensive Metabolic Panel Stat Lactate (Lactic Acid) Stat Procalcitonin Stat Troponin & CK Cardiac Panel Stat 05/05/25 22:33 Urine Culture Stat Acetaminophen (Acetaminophen 325 Mg Tablet) 650 mg PO Q6H PRN PRN Reason: Fever/Mild Pain (1-3) Albuterol (Albuterol 2.5 Mg/3 Ml Neb (Adult)) 2.5 mg INH [id number] PRN PRN Reason: Dyspnea Aspirin (Aspirin Ec 81 Mg Tablet) 81 mg PO DAILY [facility] Bisacodyl (Bisacodyl 10 Mg Supp) 10 mg [place] DAILY PRN PRN Reason: Constipation Calcium Carbonate (Calcium Carbonate 500 Mg Tab) 1,000 mg PO Q4HR PRN PRN Reason: Dyspepsia Cyclobenzaprine HCl (Cyclobenzaprine 10 Mg Tablet) 10 mg PO Q8HR PRN PRN Reason: Spasms Diclofenac Sodium (Diclofenac 1% Gel 100 Gm) applic TOP 4XD PRN PRN Reason: pain Ferrous Sulfate (Ferrous Sulfate 325 Mg Tablet) 325 mg PO DAILY [facility] Hydralazine HCl (Hydralazine 20 Mg/Ml Vial) 10 mg IV Q6HR PRN PRN Reason: SBP>= 160 or DBP >=110 Sodium Chloride (Normal Saline 0.9%) 1,000 mls @ 100 mls/hr IV CONT LACY Ceftriaxone Sodium 2,000 mg/ (Sodium Chloride) 100 mls @ 200 mls/hr IV Q24H [facility] Lidocaine (Lidocaine 5% Patch) 1 each TOP DAILY [facility] Melatonin (Melatonin 3 Mg Tablet) 9 mg PO BEDTIME PRN PRN Reason: insomnia Metoprolol Tartrate (Metoprolol Ir 25 Mg Tablet) 25 mg PO BID [facility] Morphine Sulfate (Morphine 4 Mg/Ml Inj) 3 mg IV Q2HR PRN PRN Reason: Pain, Severe (7-10) Naloxone HCl (Naloxone 0.4 Mg/Ml Vial) 0.2 mg IV Q2MIN PRN PRN Reason: Opiate Reversal Non-Formulary Medication (Food Supplemt, Lactose-Reduced [Ensure Plus]) 1 each PO TID [facility] Ondansetron HCl (Ondansetron 4 Mg/2 Ml Inj) 4 mg IV Q8HR PRN PRN Reason: Nausea And Vomiting Oxycodone HCl (Oxycodone Ir 5 Mg Tablet) 5 mg PO Q8H PRN PRN Reason: pain Pantoprazole Sodium (Pantoprazole Dr 40 Mg Tablet) 40 mg PO DAILY [facility] Thiamine HCl (Thiamine 100 Mg Tablet) 100 mg PO DAILY [facility] Tramadol HCl (Tramadol 50 Mg Tablet) 50 mg PO TID PRN PRN Reason: Pain, Moderate (4-6) Trazodone HCl (Trazodone 50 Mg Tablet) 0 mg PO BEDTIME PRN PRN Reason: Insomnia Discontinued Medications Ceftriaxone Sodium 2,000 mg/ (Sodium Chloride) 100 mls @ 200 mls/hr IV NOW ONE Stop: 05/05/25 20:20 Last Admin: 05/05/25 21:51 Dose: 200 mls/hr Documented By: BRYANT Sodium Chloride (Normal Saline 0.9%) 1,000 mls @ 1,000 mls/hr IV BOLUS ONE Stop: 05/05/25 21:18 Last Admin: 05/05/25 20:40 Dose: 1,000 mls/hr Documented By: BRYANT Vancomycin HCl 1,750 mg/ (Sodium Chloride) 500 mls @ 250 mls/hr IV NOW ONE Stop: 05/05/25 22:19 Morphine Sulfate (Morphine 2 Mg/Ml Inj) 2 mg IV NOW ONE Stop: 05/05/25 21:23 Last Admin: 05/05/25 21:51 Dose: 2 mg Documented By: BRYANT Ondansetron HCl (Ondansetron 4 Mg/2 Ml Inj) 4 mg IV NOW ONE Stop: 05/05/25 21:23 Last Admin: 05/05/25 21:51 Dose: 4 mg Documented By: BRYANT Vital Signs Vital signs: Vital Signs - 8 hr 05/05/25 18:25 05/05/25 18:28 05/05/25 18:30 Temperature 97.6 F Pulse Rate 80 75 Respiratory Rate 16 Blood Pressure 185/83 H 167/85 H Pulse Oximetry 99 100 Oxygen Delivery Method Room Air 05/05/25 18:30 05/05/25 19:00 05/05/25 19:30 Temperature Pulse Rate 75 78 79 Respiratory Rate 23 19 Blood Pressure Pulse Oximetry 100 99 100 Oxygen Delivery Method 05/05/25 19:30 05/05/25 20:00 05/05/25 20:01 Temperature Pulse Rate 80 80 Respiratory Rate 19 26 H Blood Pressure 150/72 H Pulse Oximetry 98 98 Oxygen Delivery Method 05/05/25 20:01 05/05/25 20:30 05/05/25 20:30 Temperature Pulse Rate 82 Respiratory Rate 23 Blood Pressure 152/65 H 142/69 H Pulse Oximetry 98 Oxygen Delivery Method 05/05/25 21:00 05/05/25 21:30 05/05/25 21:48 Temperature Pulse Rate 80 82 82 Respiratory Rate 14 Blood Pressure Pulse Oximetry 99 100 100 Oxygen Delivery Method 05/05/25 21:48 05/05/25 22:00 05/05/25 22:00 Temperature Pulse Rate 82 Respiratory Rate 21 Blood Pressure 185/81 H 154/67 H Pulse Oximetry 100 Oxygen Delivery Method Room Air 05/05/25 22:30 05/05/25 22:30 Temperature Pulse Rate 83 Respiratory Rate 22 Blood Pressure 177/74 H Pulse Oximetry 100 Oxygen Delivery Method MDM - Female Genitourinary Lab Data 05/05/25 20:56 05/05/25 20:56 Labs: Lab Results 05/05/25 05/05/25 05/05/25 Range/Units 20:56 21:52 22:33 WBC 5.5 (4.5-11.0) X10^3/uL RBC 3.77 L (4.0-5.2) X10^6/uL Hgb 12.3 (12.0-16.0) g/dL Hct 36.5 (36-46) % MCV 97.0 (80-100) fL MCH 32.7 (26-34) PG MCHC 33.7 (30-36) % RDW 18.1 H (11.6-14.8) % Plt Count 482 H (150-400) X10^3/uL Neut % (Auto) Not Reportable Lymph % (Auto) Not Reportable [place] % (Auto) Not Reportable Eos % (Auto) Not Reportable Baso % (Auto) Not Reportable Lymph # (Auto) Not Reportable [place] # (Auto) Not Reportable Baso # (Auto) Not Reportable Total Counted 100 Seg Neutrophils % 53.0 (38-70) % Lymphocytes % (Manual) 39.0 (25-45) % Atypical Lymphs % 2.0 H ( - 0) % Monocytes % (Manual) 4.0 (2-11) % Basophils % (Manual) 2.0 H (0-1) % Neutrophils # (Manual) 2915 L (4535-7685) /uL RBC Morphology Normal morphology Sodium 124 L (137-145) mmol/L Potassium 4.6 (3.4-5.1) mmol/L Chloride 98 (98-107) mmol/L Carbon Dioxide 9 L* (22-32) mmol/L BUN 27 H (7-17) mg/dL Creatinine 1.21 H (0.52-1.04) mg/dL Estimated GFR 47 L (>60) mL/min BUN/Creatinine Ratio 22.3 H (6-22) Glucose 116 H (70-99) mg/dL Lactate 1.4 (0.7-2.1) mmol/L Calcium 9.4 (8.4-10.2) mg/dL Total Bilirubin 0.7 (0.2-1.3) mg/dL AST 49 H (14-36) IU/L ALT 35 H (<35) IU/L Alkaline Phosphatase 200 H (38-126) U/L Total Creatine Kinase 75 (30-135) U/L Troponin I < 0.012 (0.01-0.034) ng/mL Total Protein 8.8 H (6.3-8.2) g/dL Albumin 4.8 (3.5-5.0) g/dL Globulin 4.0 (1.7-4.1) g/dL Albumin/Globulin Ratio 1.2 (1.0-2.8) Procalcitonin 129 H (<0.5) ng/mL Urine Color Yellow Urine Appearance Clear Urine pH 6.0 (4.5-8.0) Ur Specific [place] <=1.005 (1.000-1.035) Urine Protein Trace H (Negative) Urine Glucose (UA) Negative (Negative) g/dL Urine Ketones Negative (NEGATIVE) Urine Occult Blood Negative (Negative) Urine Nitrate Negative (Negative) Urine Bilirubin Negative (NEGATIVE) Urine Urobilinogen 0.2 (0.2) E.U./dL Ur Leukocyte Esterase 1+ H (NEGATIVE) Urine RBC 0-1/hpf (0-5/HPF) Urine WBC 10-30/hpf H (0-5/HPF) Ur Squamous Epith Cells 0-1 /hpf (0-5/HPF) Ur Transition Epith Cell 0-1/hpf (0-5/HPF) Urine Bacteria Few (2-10) H (None) Ur Culture Indicated? Specimen cultured Vol Urine Centrifuged 10ml (spun) SARS-CoV-2 (PCR) Negative (Negative) Influenza A (RT-PCR) Flu a negative (NEGATIVE) Influenza B (RT-PCR) Flu b negative (NEGATIVE) RSV (PCR) Negative (Negative) ECG Data Attestation: I personally reviewed and interpreted this ECG as follows: Prior ECG tracings: available for review Interpretation: Sinus 82 [place] 50 QRS is 74 QTC 436. Rightward axis, no acute ST-elevation or depression appreciated. Patient has prior from 05/03/2025 nonspecific change but no acute ST-elevation depression noted. MDM Narrative Medical decision making narrative: Labs show white count of 5.5 hemoglobin 12.3 platelets are 482 patient appears to be chronically elevated has atypical lymphs of 2% neutrophils are low. Chemistries shows sodium 124 patient has varied in the past, potassium is 4 6 with a chloride 98 CO2 is 9 with a BUN 27 creatinine is 1.21 with a glucose of 116 lactate 1.4, AST is 49 ALT is 35 alk-phos is 200 with a bilirubin of 0.7. Troponins less than 0.012. Procalcitonin is 129 was 18.6 on 05/03/2025. COVID/influenza/RSV is negative Head CTA shows no acute intracranial abnormality. Chest x-ray shows no acute cardiopulmonary pathology Blood cultures are pending Urine microscopy from 05/01 shows Citrobacter work main a greater than 100,000 CFU and Klebsiella pneumoniae 30,000-40,000 CFU. Urinalysis today shows trace protein, 1+ leuks, 10-30 WBCs 1 squamous 1 transitional few bacteria specimen was sent for culture. This appears to be consistent with infection particularly patient has been intermittently on antibiotics. Patient does not meet septic criteria but does have concerns with the her past history did receive a L bolus but did not receive a 30 cc/kilos bolus concern for fluid overload, patient is initially given Rocephin but also covered with vancomycin for broad-spectrum coverage. Patient appears to have a UTI is likely her source of symptoms. Paged hospitalist @ [phone] Milligan hospitalist @ [phone] accepts for inpatient. Discharge Plan Departure Patient Disposition: Admitted As Inpatient Clinical Impression: UTI (urinary tract infection), Hyponatremia, Altered mental status Admit Date/Time: 05/05/25 22:59 Admit Provider: Hill Milligan
--- NOTE | 2025-05-05 20:18 | DI.CT.S_ITS ---
PROCEDURE: CT HEAD/BRAIN WO CON INDICATIONS: headache, confused, recent UTI TECHNIQUE: Noncontrast 4.5 mm thick angled axial sections acquired from the foramen magnum to the vertex, with coronal and sagittal reformats. For radiation dose reduction, the following was used: automated exposure control, adjustment of mA and/or kV according to patient size. COMPARISON: [facility], CT, CT HEAD/BRAIN WO CON, 05/03/2025, 15:17. FINDINGS: Image quality: Diagnostic CSF spaces: Basal cisterns are patent. Lateral ventricles are symmetric. Volume: Vascular calcifications. Periventricular white matter disease is commonly seen with chronic microangiopathy. Volume loss is present. These findings are moderate Brain: No intracranial hemorrhage. Bran-white differentiation is grossly maintained. Craniofacial structures: No significant paranasal sinus opacity. IMPRESSION: No acute intracranial abnormality. If there is high concern for parenchymal pathology, consider further evaluation with MRI. Dictated by: Tristen Katz M.D. on 05/05/2025 at 20:44 Approved by: Tristen Katz M.D. on 05/05/2025 at 20:45
--- NOTE | 2025-05-05 20:18 | DI.RAD.S_ITS ---
PROCEDURE: XR CHEST 1V INDICATIONS: headache, confused, recent UTI TECHNIQUE: One view of the chest was acquired. COMPARISON: [facility], CR, XR CHEST 1V, 05/03/2025, 11:52. FINDINGS: Surgical changes and devices: Post ORIF changes are noted in right humeral shaft. Lungs and pleura: Lungs are clear. No pleural effusions or pneumothorax. Mediastinum: Mediastinal contours appear normal. Heart size is normal. Bones and chest wall: No suspicious bony lesions. Overlying soft tissues appear unremarkable. IMPRESSION: No acute cardiopulmonary pathology. Dictated by: Jon Braxton M.D. on 05/05/2025 at 20:48 Approved by: Jon Braxton M.D. on 05/05/2025 at 20:48
--- NOTE | 2025-05-05 20:18 | EKG_ITS ---
[address] [address] Test Date: 2025-05-05 Pat Name: Emani Leiva Department: [facility] Room: Gender: Female Associate Dean: greg : 1950 Requested By: Order Number: [id number] Reading MD: Ty Zamora MD Measurements Intervals [place] Rate: 82 P: 76 SD: 150 QRS: 92 QRSD: 74 T: 48 QT: 374 QTc: 436 Interpretive Statements Normal sinus rhythm Rightward axis Cannot rule out Inferior infarct , age undetermined Cannot rule out Anterior infarct , age undetermined Electronically Signed On 05-06-2025 7:37:25 PDT by Ty Zamora MD
[2025-05-05] MEDS: SODIUM CHLORIDE 0.9% 1,000 ML 1000 ML IV (20:40)
[2025-05-05 21:18] LABS: Alanine Aminotransferase 35 IU/L (<35); Albumin 4.8 g/dL (3.5-5.0); Albumin Globulin Ratio 1.2 (1.0-2.8); Alkaline Phosphatase 200 U/L (38-126); Blood Urea Nitrogen 27 mg/dL (7-17); Calcium 9.4 mg/dL (8.4-10.2); Chloride 98 mmol/L (98-107); Creatine Kinase 75 U/L (30-135); Estimated Glomerular Filt Rate 47 mL/min (>60); Globulin 4.0 g/dL (1.7-4.1); Glucose 116 mg/dL (70-99); HEMOLYSIS < 15 (0-50); Lactate (Lactic Acid) 1.4 mmol/L (0.7-2.1); Potassium 4.6 mmol/L (3.4-5.1); Sodium 124 mmol/L (137-145); Total Protein 8.8 g/dL (6.3-8.2)
[2025-05-05 21:24] LABS: Carbon Dioxide 9 mmol/L (22-32)
[2025-05-05 21:29] LABS: Hematocrit 36.5 % (36-46); Hemoglobin 12.3 g/dL (12.0-16.0); Mean Corpuscular HGB Conc 33.7 % (30-36); Mean Corpuscular Hemoglobin 32.7 PG (26-34); Mean Corpuscular Volume 97.0 fL (80-100); Platelet Count 482 X10^3/uL (150-400); Troponin I < 0.012 ng/mL (0.01-0.034)
[2025-05-05 21:31] LABS: Add Manual Diff / Slide Review YES
[2025-05-05 21:46] LABS: Atypical Lymphocytes Percent 2.0 %; Basophils Percent Manual 2.0 % (0-1); Lymphocytes Percent Manual 39.0 % (25-45); Monocytes Percent Manual 4.0 % (2-11); Neutrophils Absolute Manual 2915 /uL (3000-5900); RBC Morphology Normal Morphology; Segmented Neutrophils Percent 53.0 % (38-70); Total Cells Counted 100
[2025-05-05] MEDS: cefTRIAXone 2,000 MG in SODIUM CHLORIDE 0.9% 100 ML 200 MG IV (21:51)
[2025-05-05] MEDS: ONDANSETRON 4 MG/2 ML INJ IV (21:51)
[2025-05-05] MEDS: MORPHINE 2 MG/ML INJ IV (21:51)
[2025-05-05 21:59] LABS: Procalcitonin 129 ng/mL (<0.5)
[2025-05-05 22:33] LABS: Influenza A - CEPHEID Flu A NEGATIVE (NEGATIVE); Influenza B - CEPHEID Flu B NEGATIVE (NEGATIVE)
[2025-05-05 22:37] LABS: COVID-19 CEPHEID 4-PLEX PCR Negative (Negative)
[2025-05-05 22:40] LABS: Appearance Urine UA CLEAR; Bilirubin Urine UA NEGATIVE (NEGATIVE); Color Urine UA YELLOW; Glucose Urine UA NEGATIVE (Negative); Ketones Urine UA NEGATIVE (NEGATIVE); Leukocyte Esterase Urine UA 1+ (NEGATIVE); Nitrite Urine UA NEGATIVE (Negative); Occult Blood Urine UA NEGATIVE (Negative); Protein Urine UA TRACE (Negative); Specific Gravity Urine UA <=1.005 (1.000-1.035); Urobilinogen Urine UA 0.2 E.U./dL (0.2)
[2025-05-05 22:47] LABS: Culture Indicated Urine Specimen Cultured; pH Urine UA 6.0 (4.5-8.0)
[2025-05-05] MEDS: SODIUM CHLORIDE 0.9% 1,000 ML 100 ML IV (23:45)
[2025-05-06] VITALS (45 sets, daily range): BP systolic 58–181; BP diastolic 32–94; PULSE 62–107; RESP 16–20; TEMP 36.6; O2SAT 89–100
[2025-05-06] MEDS: hydrALAZINE 20 MG/ML VIAL 10 MG IV (00:15)
[2025-05-06] MEDS: CYCLOBENZAPRINE 10 MG TABLET PO (00:16)
[2025-05-06] MEDS: ONDANSETRON 4 MG/2 ML INJ IV ×2 (01:57→13:51)
--- NOTE | 2025-05-06 02:10 | P.HP_ITS ---
History of Present Illness History of Present Illness Chief complaint: UTI Narrative: 74 years old female with history of recurrent UTI, CAD, COPD, CKD, CVA, GERD, alcohol and opioid abuse in the past presented to the ER with dysuria and frequency feels like her UTI might be back. She was diagnosed with UTI on 05/01/2025 and was started on Macrobid then on 05/03/2025 changed to cefpodoxime but since she got confused and was not able to say if she was taking them. She also reports some nausea but not vomiting. Denies fever, chest pain, palpitations, abdominal pain, diarrhea or dysuria. Laboratory shows WBC 5.5, H&H 12.3/36.5, sodium 124, potassium 4.6, creatinine 1.21, lactate 1.4, LFT normal, troponin less than 0.0 12, procalcitonin 129, UA shows UTI, respiratory viral panel negative. Chest CTA unremarkable. Chest x-ray shows no acute cardiopulmonary pathology. In the ER she was given ceftriaxone 2 g IV, morphine, Zofran, vancomycin 1.75 g and fluid bolus. COUNT INCLUDES THE [facility] Medical History Family history of colon cancer in father Closed fracture of left distal femur Immunodeficiency due to conditions classified elsewhere Age-related osteoporosis without current pathological fracture History of vertebral compression fracture GERD without esophagitis Primary osteoarthritis involving multiple joints Chronic low back pain Stage 3b chronic kidney disease (CKD) Mixed hyperlipidemia Essential hypertension Cerebrovascular disease Coronary artery disease Recurrent UTI Displaced comminuted fracture of shaft of tibia Septic shock Left rib fracture Closed left clavicular fracture Iron (Fe) deficiency anemia Nephrolithiasis Peptic ulcer disease History of osteomyelitis Fracture, tibia Left foot drop Numbness and tingling HLD (hyperlipidemia) C. difficile colitis Colitis Anxiety Insomnia Arthritis DJD (degenerative joint disease) Depression Fibromyalgia Migraines Multiple fractures Osteoporosis Radius fracture (08/30/17) Neuropathy History of recurrent UTIs Renal disease Hypertension Chronic pain GI bleeding Surgical History Hx of kyphoplasty (07/28/19) Hx of kyphoplasty (04/28/19) Hx of kyphoplasty (~2013) Hx of elbow surgery Hx of appendectomy Hx of cholecystectomy Status post epidural steroid injection (03/25/19) H/O: hysterectomy Hx of tonsillectomy History of surgery Family History Mother No known health problems COPD (chronic obstructive pulmonary disease) Father No known health problems Social History household members: significant other alcohol intake: current Meds Home Medications and Allergies Home Medications ?Medication ?Instructions ?Recorded ?Confirmed ?Type food supplemt, lactose-reduced 1 ea PO TID #5,688 mL 0 11/20/23 04/14/25 Rx 0.05 gram-1.5 kcal/mL oral liquid (Ensure Plus) aspirin 81 mg tablet,delayed 81 mg PO DAILY 04/13/24 0 04/12/25 History release (Adult Aspirin Regimen) diclofenac sodium 1 % topical gel 2 g topical 4XD PRN pain #100 grams 07/27/24 04/14/25 Rx ferrous sulfate 325 mg (65 mg 325 mg PO DAILY #30 tabs 08/28/24 04/14/25 Rx iron) tablet (FeroSul) trazodone 50 mg tablet See Rx Instructions PO BEDTI ME PRN 10/06/24 04/14/25 Rx insomnia #60 tabs thiamine mononitrate (vit B1) 100 100 mg PO DAILY 10/1704/14/25 History mg tablet metoprolol tartrate 25 mg tablet 25 mg PO BID #180 tab s 02/03/25 04/12/25 Rx lidocaine 5 % topical patch 1 patch topical DAILY #8 e a 03/22/25 04/14/25 Rx oxycodone 5 mg capsule 5 mg PO Q8H PRN pain #15 cap s 03/22/25 04/14/25 Rx tramadol 50 mg tablet 50 mg PO TID PRN Pain, Moder ate 03/23/25 04/14/25 Rx (4-6) #15 tabs cefdinir 300 mg capsule 300 mg PO BID #14 caps 04/14 Rx cyclobenzaprine 10 mg tablet 10 mg PO Q8HR PRN Spasms #10 tabs 04/14/25 Rx pantoprazole 40 mg tablet,delayed 40 mg PO DAILY #30 t abs 04/14/25 Rx release nitrofurantoin 100 mg PO Q12H 5 days #10 ca ps 05/01/25 Rx monohydrate/macrocrystals 100 mg capsule (Macrobid) cefpodoxime 200 mg tablet 200 mg PO Q12H 1 week #14 ta bs 05/03/25 Rx Allergies Allergy/AdvReac Type Severity Reaction Status Date / Time furosemide (From Lasix) Allergy Intermediate Rash Verified 05/01/25 13:04 amitriptyline (AMITRIPTYLINE) AdvReac Intermediate Confusion Verified 05/01/25 13:04 duloxetine AdvReac Intermediate GI distress Verified 05/01/25 13:04 cyclobenzaprine AdvReac Dizziness Verified 05/01/25 13:04 Review of Systems Review of Systems ROS: Yes All systems reviewed with the patient and are negative except as otherwise documented Constitutional Constitutional: Reports as per HPI and Reports system reviewed and no additional complaints, except as documented Eyes Eyes: Reports as per HPI and Reports system reviewed and no additional complaints, except as documented ENT Ears, Nose, Mouth, and Throat: Yes as per HPI and Yes system reviewed and no additional complaints, except as documented Cardiovascular Cardiovascular: Reports system reviewed and no additional complaints, except as documented Respiratory Respiratory: Reports system reviewed and no additional complaints, except as documented Gastrointestinal Gastrointestinal: Reports system reviewed and no additional complaints, except as documented Genitourinary Genitourinary: Reports system reviewed and no additional complaints, except as documented Musculoskeletal Musculoskeletal: Reports system reviewed and no additional complaints, except as documented, Reports abnormal gait and Reports numbness Neurologic Neurologic: Reports system reviewed and no additional complaints, except as documented, Reports abnormal gait, Reports confusion and Reports numbness Psychiatric Psychiatric: Reports system reviewed and no additional complaints, except as documented and Reports confusion Exam Vital Signs (past 8 hours): - 05/05/25 18:25 05/05/25 18:28 05/05/25 18:30 Temperature 97.6 F Pulse Rate 80 75 Respiratory Rate 16 Blood Pressure 185/83 H 167/85 H Pulse Oximetry 99 100 Oxygen Delivery Method Room Air 05/05/25 18:30 05/05/25 19:00 05/05/25 19:30 Temperature Pulse Rate 75 78 79 Respiratory Rate 23 19 Blood Pressure Pulse Oximetry 100 99 100 Oxygen Delivery Method 05/05/25 19:30 05/05/25 20:00 05/05/25 20:01 Temperature Pulse Rate 80 80 Respiratory Rate 19 26 H Blood Pressure 150/72 H Pulse Oximetry 98 98 Oxygen Delivery Method 05/05/25 20:01 05/05/25 20:30 05/05/25 20:30 Temperature Pulse Rate 82 Respiratory Rate 23 Blood Pressure 152/65 H 142/69 H Pulse Oximetry 98 Oxygen Delivery Method 05/05/25 21:00 05/05/25 21:30 05/05/25 21:48 Temperature Pulse Rate 80 82 82 Respiratory Rate 14 Blood Pressure Pulse Oximetry 99 100 100 Oxygen Delivery Method 05/05/25 21:48 05/05/25 22:00 05/05/25 22:00 Temperature Pulse Rate 82 Respiratory Rate 21 Blood Pressure 185/81 H 154/67 H Pulse Oximetry 100 Oxygen Delivery Method Room Air 05/05/25 22:30 05/05/25 22:30 05/05/25 23:00 Temperature Pulse Rate 83 81 Respiratory Rate 22 12 Blood Pressure 177/74 H Pulse Oximetry 100 99 Oxygen Delivery Method 05/05/25 23:00 05/06/25 00:00 05/06/25 00:15 Temperature Pulse Rate 81 83 Respiratory Rate 20 Blood Pressure 155/69 H 176/94 H 177/94 H Pulse Oximetry 100 Oxygen Delivery Method 05/06/25 01:09 05/06/25 01:17 Temperature Pulse Rate 62 Respiratory Rate 16 Blood Pressure 58/32 L 67/35 L Pulse Oximetry 100 Oxygen Delivery Method Oxygen Delivery Method Room Air Const General: cooperative, comfortable and well developed Orientation: alert and oriented x3 HENMT Head: normal to inspection, normocephalic and atraumatic Face and sinus: normal facial exam Mouth: oral mucosae normal and moist mucous membranes Throat: posterior oropharynx normal Eyes General: appearance normal, both eyes and all related structures Pupils: PERRL EOM: EOM intact bilaterally Neck Neck: normal visual inspection and full ROM Chest Chest: normal inspection of the chest Resp Effort & Inspection: normal respiratory effort and able to speak in complete sentences Auscultation: clear to auscultation bilaterally Cardio Palpation: normal PMI Rate: regular rate Rhythm: regular rhythm Heart Sounds: S1 normal and S2 normal GI Inspection: normal to inspection Palpation: soft and no hepatosplenomegaly Auscultation: normal bowel sounds Skin General: no rashes or lesions noted Lesions: no lesions Rashes: no rashes Trauma: no lacerations or abrasions Neuro General: patient alert, patient awake, patient oriented x3 and no focal motor deficits Cranial Nerves: CN's II-XI intact bilaterally Cognition: normal cognition Speech: speech normal Gait: normal gait Motor: muscle tone normal throughout Sensory Exam: no sensory deficits noted Extrem General: full ROM and no calf tenderness Psych Appearance: grossly normal Mental Status: mental status grossly normal Speech and Movement: speech and movement normal Objective Labs 05/05/25 20:56 05/05/25 20:56 Labs: Laboratory Results - last 24 hr 05/05/25 05/05/25 05/05/25 20:56 21:52 22:33 WBC 5.5 RBC 3.77 L Hgb 12.3 Hct 36.5 MCV 97.0 MCH 32.7 MCHC 33.7 RDW 18.1 H Plt Count 482 H Neut % (Auto) Not Reportable Lymph % (Auto) Not Reportable [place] % (Auto) Not Reportable Eos % (Auto) Not Reportable Baso % (Auto) Not Reportable Lymph # (Auto) Not Reportable [place] # (Auto) Not Reportable Baso # (Auto) Not Reportable Total Counted 100 Seg Neutrophils % 53.0 Lymphocytes % (Manual) 39.0 Atypical Lymphs % 2.0 H Monocytes % (Manual) 4.0 Basophils % (Manual) 2.0 H Neutrophils # (Manual) 2915 L RBC Morphology Normal morphology Sodium 124 L Potassium 4.6 Chloride 98 Carbon Dioxide 9 L* BUN 27 H Creatinine 1.21 H Estimated GFR 47 L BUN/Creatinine Ratio 22.3 H Glucose 116 H Lactate 1.4 Calcium 9.4 Total Bilirubin 0.7 AST 49 H ALT 35 H Alkaline Phosphatase 200 H Total Creatine Kinase 75 Troponin I < 0.012 Total Protein 8.8 H Albumin 4.8 Globulin 4.0 Albumin/Globulin Ratio 1.2 Procalcitonin 129 H Urine Color Yellow Urine Appearance Clear Urine pH 6.0 Ur Specific [place] <=1.005 Urine Protein Trace H Urine Glucose (UA) Negative Urine Ketones Negative Urine Occult Blood Negative Urine Nitrate Negative Urine Bilirubin Negative Urine Urobilinogen 0.2 Ur Leukocyte Esterase 1+ H Urine RBC 0-1/hpf Urine WBC 10-30/hpf H Ur Squamous Epith Cells 0-1 /hpf Ur Transition Epith Cell 0-1/hpf Urine Bacteria Few (2-10) H Ur Culture Indicated? Specimen cultured Vol Urine Centrifuged 10ml (spun) SARS-CoV-2 (PCR) Negative Influenza A (RT-PCR) Flu a negative Influenza B (RT-PCR) Flu b negative RSV (PCR) Negative Assessment & Plan Assessment & Plan narrative: Recurrent UTI -Blood culture, urine culture, -Antibiotics, ceftriaxone, -Monitor for urine retention, check post void residuals. -IV fluids -Pain medications, antiemetics and Tylenol for fever as needed CAD. Restart aspirin metoprolol Insomnia. Restart trazodone as needed GERD. Restart pantoprazole Alcohol abuse. Restart thiamine Iron deficiency anemia. Restart iron supplement Time-Based Coding :: [TOTAL MINUTES] spent with patient and on the chart (including review of chart, obtaining history, exam, reviewing outside data, placing orders, documenting exam and treatment plan, and counseling patient) on [DATE]. Quality VTE Deep Vein Thrombosis/Pulmonary Embolism Present on Admission: No MIPS - Admit I confirm the patient?s Advance Care Plan is present, Code status is documented, Surrogate decision maker is in patient?s record [If Yes, STOP here]: Yes MIPS - Meds 'Current medications' to include all prescriptions, [id number] products, herbals, cannabis/cannabidiol products, and vitamin/mineral/dietary (nutritional) supplements. I have utilized all available resources to obtain, update, or review the patient?s current medications. [If Yes, STOP here]: Yes
[2025-05-06] MEDS: VANCOMYCIN 1,000 MG/200 ML PIGGYBACK 150 MG IV (02:26)
[2025-05-06] MEDS: MORPHINE 4 MG/ML INJ 3 MG IV (02:30)
[2025-05-06 04:05] LABS: MRSA (Nasal) PCR NOT DETECTED (Not Detect)
[2025-05-06 07:37] LABS: Alanine Aminotransferase 30 IU/L (<35); Albumin 3.7 g/dL (3.5-5.0); Albumin Globulin Ratio 1.1 (1.0-2.8); Alkaline Phosphatase 140 U/L (38-126); Blood Urea Nitrogen 26 mg/dL (7-17); Calcium 8.3 mg/dL (8.4-10.2); Chloride 108 mmol/L (98-107); Estimated Glomerular Filt Rate 51 mL/min (>60); Globulin 3.3 g/dL (1.7-4.1); Glucose 85 mg/dL (70-99); Magnesium 1.7 mg/dL (1.6-2.3); Potassium 4.5 mmol/L (3.4-5.1); Sodium 132 mmol/L (137-145); Total Protein 7.0 g/dL (6.3-8.2)
[2025-05-06 07:46] LABS: HEMOLYSIS 33 (0-50)
[2025-05-06 07:50] LABS: Carbon Dioxide 6 mmol/L (22-32)
--- NOTE | 2025-05-06 08:07 | PM.HP.1 ---
History of Present Illness History of Present Illness Date Patient Seen: 05/06/25 Chief complaint: UTI Narrative: From night doctor: 74 years old female with history of recurrent UTI, CAD, COPD, CKD, CVA, GERD, alcohol and opioid abuse in the past presented to the ER with dysuria and frequency feels like her UTI might be back. She was diagnosed with UTI on 05/01/2025 and was started on Macrobid then on 05/03/2025 changed to cefpodoxime but since she got confused and was not able to say if she was taking them. She also reports some nausea but not vomiting. Denies fever, chest pain, palpitations, abdominal pain, diarrhea or dysuria. Laboratory shows WBC 5.5, H&H 12.3/36.5, sodium 124, potassium 4.6, creatinine 1.21, lactate 1.4, LFT normal, troponin less than 0.0 12, procalcitonin 129, UA shows UTI, respiratory viral panel negative. Chest CTA unremarkable. Chest x-ray shows no acute cardiopulmonary pathology. In the ER she was given ceftriaxone 2 g IV, morphine, Zofran, vancomycin 1.75 g and fluid bolus. CO2 6, Cr 1.21, Na 124. S: She was comfortable, notes that she presented because of recurrent urinary symptoms. Has not really been eating or drinking at home. It was mostly bed and wheelchair bound and lives with her partner. Has been urinating without difficulty other than having dysuria. O: NAD, underweight. NAD, alert and oriented. Fluent speech. Lungs are clear, normal rate and effort. Heart is regular, no murmur gallop or rub. Abdomen is soft, non distended. Extremities are free of edema. Left arm IV. A/P: 1. UTI 2. Hyponatremia 3. High anion gap acidosis, normal lactate and glucose. PLAN: -Continue IVF -ABG -Ketones -continue saline and monitor sodium. She was solute deficient. -continue antibiotics, sensitivities of her last urine analysis and culture indicate that ceftriaxone should be effective. [facility] Medical History Family history of colon cancer in father Closed fracture of left distal femur Immunodeficiency due to conditions classified elsewhere Age-related osteoporosis without current pathological fracture History of vertebral compression fracture GERD without esophagitis Primary osteoarthritis involving multiple joints Chronic low back pain Stage 3b chronic kidney disease (CKD) Mixed hyperlipidemia Essential hypertension Cerebrovascular disease Coronary artery disease Recurrent UTI Displaced comminuted fracture of shaft of tibia Septic shock Left rib fracture Closed left clavicular fracture Iron (Fe) deficiency anemia Nephrolithiasis Peptic ulcer disease History of osteomyelitis Fracture, tibia Left foot drop Numbness and tingling HLD (hyperlipidemia) C. difficile colitis Colitis Anxiety Insomnia Arthritis DJD (degenerative joint disease) Depression Fibromyalgia Migraines Multiple fractures Osteoporosis Radius fracture (08/30/17) Neuropathy History of recurrent UTIs Renal disease Hypertension Chronic pain GI bleeding Surgical History Hx of kyphoplasty (07/28/19) Hx of kyphoplasty (04/28/19) Hx of kyphoplasty (~2013) Hx of elbow surgery Hx of appendectomy Hx of cholecystectomy Status post epidural steroid injection (03/25/19) H/O: hysterectomy Hx of tonsillectomy History of surgery Family History Mother No known health problems COPD (chronic obstructive pulmonary disease) Father No known health problems Social History household members: significant other Smoking Status: Smoker, status unknown alcohol intake: current Meds Home Medications and Allergies Home Medications ?Medication ?Instructions ?Recorded ?Confirmed ?Type food supplemt, lactose-reduced 1 ea PO TID #5,688 mL 11/20/23 05/06/25 Rx 0.05 gram-1.5 kcal/mL oral liquid (Ensure Plus) aspirin 81 mg tablet,delayed 81 mg PO DAILY 04/13/24 05/06/25 History release (Adult Aspirin Regimen) diclofenac sodium 1 % topical gel 2 g topical 4XD PRN pain #100 grams 07/27/24 05/06/25 Rx ferrous sulfate 325 mg (65 mg 325 mg PO DAILY #30 tabs 08/28/24 05/06/25 Rx iron) tablet (FeroSul) trazodone 50 mg tablet See Rx Instructions PO BEDTIME PRN 10/06/24 05/06/25 Rx insomnia #60 tabs thiamine mononitrate (vit B1) 100 100 mg PO DAILY 11/03/24 05/06/25 History mg tablet metoprolol tartrate 25 mg tablet 25 mg PO BID #180 tabs 02/03/25 05/06/25 Rx lidocaine 5 % topical patch 1 patch topical DAILY #8 ea 03/22/25 05/06/25 Rx oxycodone 5 mg capsule 5 mg PO Q8H PRN pain #15 caps 03/22/25 05/06/25 Rx tramadol 50 mg tablet 50 mg PO TID PRN Pain, Moderate 03/23/25 05/06/25 Rx (4-6) #15 tabs cefdinir 300 mg capsule 300 mg PO BID #14 caps 04/14/25 05/06/25 Rx cyclobenzaprine 10 mg tablet 10 mg PO Q8HR PRN Spasms #10 tabs 04/14/25 05/06/25 Rx pantoprazole 40 mg tablet,delayed 40 mg PO DAILY #30 tabs 04/14/25 05/06/25 Rx release nitrofurantoin 100 mg PO Q12H 5 days #10 caps 05/01/25 05/06/25 Rx monohydrate/macrocrystals 100 mg capsule (Macrobid) cefpodoxime 200 mg tablet 200 mg PO Q12H 1 week #14 tabs 05/03/25 05/06/25 Rx atorvastatin 40 mg tablet 40 mg PO DAILY 05/06/25 05/06/25 History carisoprodol 350 mg tablet 350 mg PO 4XD 05/06/25 05/06/25 History Allergies Allergy/AdvReac Type Severity Reaction Status Date / Time furosemide (From Lasix) Allergy Intermediate Rash Verified 05/01/25 13:04 amitriptyline (AMITRIPTYLINE) AdvReac Intermediate Confusion Verified 05/01/25 13:04 duloxetine AdvReac Intermediate GI distress Verified 05/01/25 13:04 cyclobenzaprine AdvReac Dizziness Verified 05/01/25 13:04 Exam Vital Signs (past 8 hours): - 05/06/25 00:15 05/06/25 00:15 05/06/25 01:09 Pulse Rate 83 62 Respiratory Rate 16 Blood Pressure 177/94 H 58/32 L Pulse Oximetry 100 Oxygen Delivery Method Room Air 05/06/25 01:17 05/06/25 02:10 05/06/25 02:30 Pulse Rate 78 101 H Respiratory Rate Blood Pressure 67/35 L 87/51 L 104/51 L Pulse Oximetry 99 Oxygen Delivery Method 05/06/25 03:00 05/06/25 04:30 05/06/25 05:00 Pulse Rate 90 107 H 107 H Respiratory Rate 18 20 Blood Pressure 115/54 L 107/56 L 107/55 L Pulse Oximetry 100 100 99 Oxygen Delivery Method 05/06/25 06:03 Pulse Rate 100 H Respiratory Rate 16 Blood Pressure 89/52 L Pulse Oximetry 99 Oxygen Delivery Method Oxygen Delivery Method Room Air Objective Labs 05/05/25 20:56 05/06/25 07:14 Labs: Laboratory Results - last 24 hr 05/05/25 05/05/25 05/05/25 20:56 21:52 22:33 WBC 5.5 RBC 3.77 L Hgb 12.3 Hct 36.5 MCV 97.0 MCH 32.7 MCHC 33.7 RDW 18.1 H Plt Count 482 H Neut % (Auto) Not Reportable Lymph % (Auto) Not Reportable [place] % (Auto) Not Reportable Eos % (Auto) Not Reportable Baso % (Auto) Not Reportable Lymph # (Auto) Not Reportable [place] # (Auto) Not Reportable Baso # (Auto) Not Reportable Total Counted 100 Seg Neutrophils % 53.0 Lymphocytes % (Manual) 39.0 Atypical Lymphs % 2.0 H Monocytes % (Manual) 4.0 Basophils % (Manual) 2.0 H Neutrophils # (Manual) 2915 L RBC Morphology Normal morphology Sodium 124 L Potassium 4.6 Chloride 98 Carbon Dioxide 9 L* BUN 27 H Creatinine 1.21 H Estimated GFR 47 L BUN/Creatinine Ratio 22.3 H Glucose 116 H Lactate 1.4 Calcium 9.4 Magnesium Total Bilirubin 0.7 AST 49 H ALT 35 H Alkaline Phosphatase 200 H Total Creatine Kinase 75 Troponin I < 0.012 Total Protein 8.8 H Albumin 4.8 Globulin 4.0 Albumin/Globulin Ratio 1.2 Procalcitonin 129 H Urine Color Yellow Urine Appearance Clear Urine pH 6.0 Ur Specific [place] <=1.005 Urine Protein Trace H Urine Glucose (UA) Negative Urine Ketones Negative Urine Occult Blood Negative Urine Nitrate Negative Urine Bilirubin Negative Urine Urobilinogen 0.2 Ur Leukocyte Esterase 1+ H Urine RBC 0-1/hpf Urine WBC 10-30/hpf H Ur Squamous Epith Cells 0-1 /hpf Ur Transition Epith Cell 0-1/hpf Urine Bacteria Few (2-10) H Ur Culture Indicated? Specimen cultured Vol Urine Centrifuged 10ml (spun) Nasal Screen MRSA (PCR) SARS-CoV-2 (PCR) Negative Influenza A (RT-PCR) Flu a negative Influenza B (RT-PCR) Flu b negative RSV (PCR) Negative 05/05/25 05/06/25 23:37 07:14 WBC RBC Hgb Hct MCV MCH MCHC RDW Plt Count Neut % (Auto) Lymph % (Auto) [place] % (Auto) Eos % (Auto) Baso % (Auto) Lymph # (Auto) [place] # (Auto) Baso # (Auto) Total Counted Seg Neutrophils % Lymphocytes % (Manual) Atypical Lymphs % Monocytes % (Manual) Basophils % (Manual) Neutrophils # (Manual) RBC Morphology Sodium 132 L Potassium 4.5 Chloride 108 H Carbon Dioxide 6 L* BUN 26 H Creatinine 1.13 H Estimated GFR 51 L BUN/Creatinine Ratio 23.0 H Glucose 85 Lactate Calcium 8.3 L Magnesium 1.7 Total Bilirubin 0.5 AST 44 H ALT 30 Alkaline Phosphatase 140 H Total Creatine Kinase Troponin I Total Protein 7.0 Albumin 3.7 Globulin 3.3 Albumin/Globulin Ratio 1.1 Procalcitonin Urine Color Urine Appearance Urine pH Ur Specific [place] Urine Protein Urine Glucose (UA) Urine Ketones Urine Occult Blood Urine Nitrate Urine Bilirubin Urine Urobilinogen Ur Leukocyte Esterase Urine RBC Urine WBC Ur Squamous Epith Cells Ur Transition Epith Cell Urine Bacteria Ur Culture Indicated? Vol Urine Centrifuged Nasal Screen MRSA (PCR) Not detected SARS-CoV-2 (PCR) Influenza A (RT-PCR) Influenza B (RT-PCR) RSV (PCR) Assessment & Plan Time-Based Coding :: [TOTAL MINUTES] spent with patient and on the chart (including review of chart, obtaining history, exam, reviewing outside data, placing orders, documenting exam and treatment plan, and counseling patient) on [DATE]. Quality VTE Deep Vein Thrombosis/Pulmonary Embolism Present on Admission: No
[2025-05-06] MEDS: FERROUS SULFATE 325 MG TABLET PO (08:45)
[2025-05-06] MEDS: THIAMINE 100 MG TABLET PO (08:45)
[2025-05-06] MEDS: LIDOCAINE 5% PATCH 1 EACH TOP (08:45)
[2025-05-06] MEDS: ASPIRIN EC 81 MG TABLET PO (08:45)
[2025-05-06] MEDS: PANTOPRAZOLE DR 40 MG TABLET PO (08:45)
[2025-05-06 08:46] LABS: Ketones (Beta-Hydroxybutyrate) 1.05 mmol/L (<0.27)
[2025-05-06] MEDS: [UNRECOGNIZED DRUG - OTHER] 1 EACH PO (08:46)
--- NOTE | 2025-05-06 12:12 | CM.DANOTE ---
DCP Assessment Note: Pt is a 74yo female, resident of [place], is admitted for UTI. Pt lives in a house with her partner, Patrick. Pt's Primary Care Provider is Dr. Antonio Pedro and insurance is [facility]. Reviewed chart and discussed with multidisciplinary team pt's medical status and initial discharge needs. Per hosptialist, pt to discharge home when medically cleared in approximately 1-2 days. DCP met w/patient at bedside; introduced self and role. Patient was found in bed, alert and oriented, cooperative with assessment. Pt confirmed living situation and good support in partner and [employer] Caregiver, Raina. Pt expressed preference in discharge home when cleared, states partner or caregiver can transport her home. History: Pt was admitted on 04/13/25 and declined home health, SNF Referral. [facility] 10 [facility], returned to [place]. Community Contacts: - [facility] nursing unit coordinator Nicole Gray ( ) - [facility] retail manager in training Deborah Reeves (ph# [phone]) - [facility] Safety Compliance Specialist Marilee Al (ph# [phone]) Plan: Anticipating dc home in 1-2 days or when medically cleared, partner or caregiver will transport home. CM team will follow closely for coordination of discharge plans. MARIKA Bates Discharge Planning/Care Management CM Discharge Assessment Start: 05/05/25 23:12 Freq: Status: Active Protocol: Document 05/06/25 12:07 MW (Rec: 05/06/25 12:10 MW [id number]) Discharge Planning Assessment Assigned Discharge JANET Butterfield Transmission Technician Provider Antonio Pedro Insurance [facility] DPOA/Assigned Valerio Garza Designee Name Contact Information [phone] Advance Directives? Yes Advance Directives No on File History Provided By Patient,Medical Record Has Patient been Yes admitted in last 30 days? Comment 04/13/25 Prior Living House Arrangements Household Members significant other Type of Relies on Others transporation used prior to admit Independent with ADL No 's Is patient alert and Yes oriented? DME Already Rented / Wheelchair Owned Discharge Plan Home Transportation Significant Other, Patrick, or Caregiver, Raina can Arrangement transport at discharge. Patient reports she feels comfortable with getting into a private vehicle with assistance. Referrals Initiated None needed Review Status In Process Please Provide Date 05/06/25 Initial DC Assessment Was Performed Next Review Type Continued Stay Review
[2025-05-06] MEDS: SODIUM CHLORIDE 0.9% 1,000 ML 100 ML IV (13:17)
[2025-05-06 14:40] LABS: Blood Urea Nitrogen 25 mg/dL (7-17); Calcium 8.0 mg/dL (8.4-10.2); Chloride 113 mmol/L (98-107); Estimated Glomerular Filt Rate 48 mL/min (>60); Glucose 146 mg/dL (70-99); HEMOLYSIS < 15 (0-50); Potassium 4.3 mmol/L (3.4-5.1); Sodium 133 mmol/L (137-145)
[2025-05-06 14:57] LABS: Carbon Dioxide 6 mmol/L (22-32)
[2025-05-06 15:28] LABS: HCO3 ABG 11 mmol/L (23-27); Oxygen Saturation ABG 97 % (95-100); PCO2 ABG 22.3 mmHg (35-45); PO2 ABG 99 mmHg (80-100); TCO2 ABG 10 mmol/L (23-27)
[2025-05-06] MEDS: SODIUM BICARB 8.4% VIAL 100 MEQ in DEXTROSE 5% WATER 1,000 ML 150 MEQ IV ×2 (15:49→23:28)
[2025-05-06] MEDS: cefTRIAXone 2,000 MG in SODIUM CHLORIDE 0.9% 100 ML 200 MG IV (22:45)
[2025-05-06] MEDS: METOPROLOL IR 25 MG TABLET PO (22:46)
[2025-05-07] VITALS (23 sets, daily range): BP systolic 138–212; BP diastolic 65–97; PULSE 77–90; RESP 16; O2SAT 97–100
[2025-05-07] MEDS: CYCLOBENZAPRINE 10 MG TABLET PO (06:14)
[2025-05-07 06:56] LABS: Alanine Aminotransferase 27 IU/L (<35); Albumin 4.1 g/dL (3.5-5.0); Albumin Globulin Ratio 1.1 (1.0-2.8); Alkaline Phosphatase 147 U/L (38-126); Blood Urea Nitrogen 22 mg/dL (7-17); Calcium 8.3 mg/dL (8.4-10.2); Carbon Dioxide 20 mmol/L (22-32); Chloride 106 mmol/L (98-107); Estimated Glomerular Filt Rate > 60 mL/min (>60); Globulin 3.6 g/dL (1.7-4.1); Glucose 86 mg/dL (70-99); Magnesium 1.7 mg/dL (1.6-2.3); Potassium 5.2 mmol/L (3.4-5.1); Sodium 135 mmol/L (137-145); Total Protein 7.7 g/dL (6.3-8.2)
[2025-05-07 06:58] LABS: HEMOLYSIS 277 (0-50)
--- NOTE | 2025-05-07 08:03 | P.PN_ITS ---
Subjective Subjective Interval history: Summary: S: Exam Vital Signs (past 8 hours): - 05/07/25 04:52 Pulse Rate 78 Respiratory Rate 16 Blood Pressure 154/72 H Pulse Oximetry 100 Oxygen Flow Rate 0 Oxygen Delivery Method Room Air Oxygen Flow Rate 0 Narrative Exam Narrative: NAD, alert and oriented. Fluent speech. Lungs are clear, normal rate and effort. Heart is regular, no murmur gallop or rub. Abdomen is soft, non distended. Extremities are free of edema. Objective ECG Impression: Intervals [place] Rate: 82 P: 76 CT: 150 QRS: 92 QRSD: 74 T: 48 QT: 374 QTc: 436 Interpretive Statements Normal sinus rhythm Rightward axis Cannot rule out Inferior infarct , age undetermined Cannot rule out Anterior infarct , age undetermined Imaging Multiple studies:: Radiologist's impression: Head CT: No acute intracranial abnormality. If there is high concern for parenchymal pathology, consider further evaluation with MRI. Chest x-ray: No acute cardiopulmonary pathology. Labs 05/05/25 20:56 05/07/25 06:18 Labs: Laboratory Results - last 24 hr 05/06/25 05/06/25 05/06/25 07:14 14:23 15:25 ABG pH 7.29 L* ABG pCO2 22.3 L* ABG pO2 99 ABG HCO3 11 L ABG Total CO2 10 L ABG O2 Saturation 97 ABG Base Excess -14.3 L FiO2 % 21.0 % Sodium 133 L Potassium 4.3 Chloride 113 H Carbon Dioxide 6 L* BUN 25 H Creatinine 1.19 H Estimated GFR 48 L BUN/Creatinine Ratio 21.0 Glucose 146 H Calcium 8.0 L Magnesium Total Bilirubin AST ALT Alkaline Phosphatase Total Protein Albumin Globulin Albumin/Globulin Ratio Ketones 1.05 H 05/07/25 06:18 ABG pH ABG pCO2 ABG pO2 ABG HCO3 ABG Total CO2 ABG O2 Saturation ABG Base Excess FiO2 % Sodium 135 L Potassium 5.2 H Chloride 106 Carbon Dioxide 20 L BUN 22 H Creatinine 0.88 Estimated GFR > 60 BUN/Creatinine Ratio 25.0 H Glucose 86 Calcium 8.3 L Magnesium 1.7 Total Bilirubin 1.5 H AST 51 H ALT 27 Alkaline Phosphatase 147 H Total Protein 7.7 Albumin 4.1 Globulin 3.6 Albumin/Globulin Ratio 1.1 Ketones [facility] Medical History Family history of colon cancer in father Closed fracture of left distal femur Immunodeficiency due to conditions classified elsewhere Age-related osteoporosis without current pathological fracture History of vertebral compression fracture GERD without esophagitis Primary osteoarthritis involving multiple joints Chronic low back pain Stage 3b chronic kidney disease (CKD) Mixed hyperlipidemia Essential hypertension Cerebrovascular disease Coronary artery disease Recurrent UTI Displaced comminuted fracture of shaft of tibia Septic shock Left rib fracture Closed left clavicular fracture Iron (Fe) deficiency anemia Nephrolithiasis Peptic ulcer disease History of osteomyelitis Fracture, tibia Left foot drop Numbness and tingling HLD (hyperlipidemia) C. difficile colitis Colitis Anxiety Insomnia Arthritis DJD (degenerative joint disease) Depression Fibromyalgia Migraines Multiple fractures Osteoporosis Radius fracture (08/30/17) Neuropathy History of recurrent UTIs Renal disease Hypertension Chronic pain GI bleeding Surgical History Hx of kyphoplasty (07/28/19) Hx of kyphoplasty (04/28/19) Hx of kyphoplasty (~2013) Hx of elbow surgery Hx of appendectomy Hx of cholecystectomy Status post epidural steroid injection (03/25/19) H/O: hysterectomy Hx of tonsillectomy History of surgery Family History Mother No known health problems COPD (chronic obstructive pulmonary disease) Father No known health problems Social History household members: significant other Smoking Status: Smoker, status unknown alcohol intake: current Assessment & Plan Assessment & Plan narrative: 1. UTI 2. Hyponatremia 3. High anion gap acidosis with starvation ketosis, normal lactate and glucose. PLAN: -Continue IVF -ABG -Ketones -continue saline and monitor sodium. She was solute deficient. -continue antibiotics, sensitivities of her last urine analysis and culture indicate that ceftriaxone should be effective. Time-Based Coding :: [TOTAL MINUTES] spent with patient and on the chart (including review of chart, obtaining history, exam, reviewing outside data, placing orders, documenting exam and treatment plan, and counseling patient) on [DATE]. Quality VTE Deep Vein Thrombosis/Pulmonary Embolism Present on Admission: No
[2025-05-07] MEDS: SODIUM BICARB 8.4% VIAL 100 MEQ in DEXTROSE 5% WATER 1,000 ML 150 MEQ IV (08:14)
[2025-05-07] MEDS: LIDOCAINE 5% PATCH 1 EACH TOP (08:55)
[2025-05-07] MEDS: PANTOPRAZOLE DR 40 MG TABLET PO (08:56)
[2025-05-07] MEDS: THIAMINE 100 MG TABLET PO (08:56)
[2025-05-07] MEDS: ASPIRIN EC 81 MG TABLET PO (08:56)
[2025-05-07] MEDS: METOPROLOL IR 25 MG TABLET PO (08:56)
[2025-05-07] MEDS: FERROUS SULFATE 325 MG TABLET PO (08:57)
[2025-05-07] MEDS: MAGNESIUM CHLORIDE 64 MG TABLET 128 MG PO (10:36)
[2025-05-07 11:20] LABS: Blood Urea Nitrogen 20 mg/dL (7-17); Calcium 8.1 mg/dL (8.4-10.2); Carbon Dioxide 23 mmol/L (22-32); Chloride 104 mmol/L (98-107); Estimated Glomerular Filt Rate > 60 mL/min (>60); Glucose 139 mg/dL (70-99); HEMOLYSIS 17 (0-50); Potassium 3.3 mmol/L (3.4-5.1); Sodium 136 mmol/L (137-145)
--- NOTE | 2025-05-07 11:22 | CM.DPNOTE ---
DCP Continued: Reviewed EMR and team rounds for pt?s medical status. Per hospitalist, with IV fluids and abx, pt might have labs corrected and could possibly be cleared for discharge today. No discharge needs identified, pt declines home health and states her [facility] caregiver now available 5 days a week. Plan: Anticipating dc home with partner or caregiver to transport on 05/07 or when medically cleared. CM Team will continue to follow for coordination of discharge plans. MARIKA Bates
--- NOTE | 2025-05-07 13:22 | PM.DS.1 ---
History of Present Illness History of Present Illness Chief complaint: UTI Narrative: From night doctor: 74 years old female with history of recurrent UTI, CAD, COPD, CKD, CVA, GERD, alcohol and opioid abuse in the past presented to the ER with dysuria and frequency feels like her UTI might be back. She was diagnosed with UTI on 05/01/2025 and was started on Macrobid then on 05/03/2025 changed to cefpodoxime but since she got confused and was not able to say if she was taking them. She also reports some nausea but not vomiting. Denies fever, chest pain, palpitations, abdominal pain, diarrhea or dysuria. Laboratory shows WBC 5.5, H&H 12.3/36.5, sodium 124, potassium 4.6, creatinine 1.21, lactate 1.4, LFT normal, troponin less than 0.0 12, procalcitonin 129, UA shows UTI, respiratory viral panel negative. Chest CTA unremarkable. Chest x-ray shows no acute cardiopulmonary pathology. In the ER she was given ceftriaxone 2 g IV, morphine, Zofran, vancomycin 1.75 g and fluid bolus. CO2 6, Cr 1.21, Na 124. S: She was comfortable, notes that she presented because of recurrent urinary symptoms. Has not really been eating or drinking at home. It was mostly bed and wheelchair bound and lives with her partner. Has been urinating without difficulty other than having dysuria. Discharge Providers Provider Date of admission: 05/05/25 22:59 Discharge Date: 05/07/25 Primary care physician: Lisbet Georges DO Consults: 05/06/25 08:00 Consult to Pharmacy Routine Comment: high fall risk Discharge provider: Master Bernabe MD Summary Hospital Course Discharge Diagnosis: 1. UTI, improved 2. Hyponatremia 3. High anion gap acidosis, starvation ketosis. 4. Chronic liver disease. 5. Alcohol abuse. Hospital Course: She was admitted with persistent dysuria and urine culture was ultimately negative. These symptoms improved. She was volume depleted and had hyponatremia which corrected with saline. This is consistent with solute deficiency which is known to be chronic problem with her. She did develop hyperchloremia with her saline, and this was switched to sodium bicarbonate with correction of a fairly severe mixed metabolic acidosis. Her CO2 corrected from 6 up to 24. On the day of discharge she was at her baseline, and felt well. She did request a small amount of pain medication and has a 1st appointment with her new primary care provider early next week. The importance of ongoing nutritional intake and hydration was emphasized with her. She does not need further antibiotics. Exam Vital Signs (past 8 hours): - 05/07/25 05:30 05/07/25 05:30 05/07/25 06:00 Pulse Rate 81 Blood Pressure 192/81 H 166/77 H Pulse Oximetry 99 05/07/25 06:00 05/07/25 06:30 05/07/25 06:30 Pulse Rate 84 89 Blood Pressure 179/84 H Pulse Oximetry 97 100 05/07/25 07:00 05/07/25 07:00 05/07/25 07:30 Pulse Rate 88 86 Blood Pressure 176/79 H Pulse Oximetry 99 98 05/07/25 07:30 05/07/25 08:00 05/07/25 08:00 Pulse Rate 90 Blood Pressure 172/81 H 155/73 H Pulse Oximetry 99 05/07/25 08:30 05/07/25 08:30 Pulse Rate 87 Blood Pressure 171/77 H Pulse Oximetry 99 Oxygen Delivery Method Room Air Oxygen Flow Rate 0 Objective Labs 05/05/25 20:56 05/07/25 10:55 Labs: Laboratory Results - last 24 hr 05/06/25 05/06/25 05/07/25 14:23 15:25 06:18 ABG pH 7.29 L* ABG pCO2 22.3 L* ABG pO2 99 ABG HCO3 11 L ABG Total CO2 10 L ABG O2 Saturation 97 ABG Base Excess -14.3 L FiO2 % 21.0 % Sodium 133 L 135 L Potassium 4.3 5.2 H Chloride 113 H 106 Carbon Dioxide 6 L* 20 L BUN 25 H 22 H Creatinine 1.19 H 0.88 Estimated GFR 48 L > 60 BUN/Creatinine Ratio 21.0 25.0 H Glucose 146 H 86 Calcium 8.0 L 8.3 L Magnesium 1.7 Total Bilirubin 1.5 H AST 51 H ALT 27 Alkaline Phosphatase 147 H Total Protein 7.7 Albumin 4.1 Globulin 3.6 Albumin/Globulin Ratio 1.1 05/07/25 10:55 ABG pH ABG pCO2 ABG pO2 ABG HCO3 ABG Total CO2 ABG O2 Saturation ABG Base Excess FiO2 % Sodium 136 L Potassium 3.3 L D Chloride 104 Carbon Dioxide 23 BUN 20 H Creatinine 0.88 Estimated GFR > 60 BUN/Creatinine Ratio 22.7 H Glucose 139 H Calcium 8.1 L Magnesium Total Bilirubin AST ALT Alkaline Phosphatase Total Protein Albumin Globulin Albumin/Globulin Ratio PFSH Medical History Family history of colon cancer in father Closed fracture of left distal femur Immunodeficiency due to conditions classified elsewhere Age-related osteoporosis without current pathological fracture History of vertebral compression fracture GERD without esophagitis Primary osteoarthritis involving multiple joints Chronic low back pain Stage 3b chronic kidney disease (CKD) Mixed hyperlipidemia Essential hypertension Cerebrovascular disease Coronary artery disease Recurrent UTI Displaced comminuted fracture of shaft of tibia Septic shock Left rib fracture Closed left clavicular fracture Iron (Fe) deficiency anemia Nephrolithiasis Peptic ulcer disease History of osteomyelitis Fracture, tibia Left foot drop Numbness and tingling HLD (hyperlipidemia) C. difficile colitis Colitis Anxiety Insomnia Arthritis DJD (degenerative joint disease) Depression Fibromyalgia Migraines Multiple fractures Osteoporosis Radius fracture (08/30/17) Neuropathy History of recurrent UTIs Renal disease Hypertension Chronic pain GI bleeding Surgical History Hx of kyphoplasty (07/28/19) Hx of kyphoplasty (04/28/19) Hx of kyphoplasty (~2013) Hx of elbow surgery Hx of appendectomy Hx of cholecystectomy Status post epidural steroid injection (03/25/19) H/O: hysterectomy Hx of tonsillectomy History of surgery Family History Mother No known health problems COPD (chronic obstructive pulmonary disease) Father No known health problems Social History household members: significant other Smoking Status: Smoker, status unknown alcohol intake: current Discharge Assessment & Plan Assessment and Plan Assessment: 1. UTI, improved 2. Hyponatremia 3. High anion gap acidosis, starvation ketosis. 4. Chronic liver disease. 5. Alcohol abuse. Plan of Treatment: Discharge home, close follow up with PCP as noted above. Discharge Plan Discharge Plan Patient Disposition: Home Provider Discharge Comment: Electrolytes improved, stable for discharge home. Encouraged to eat and have close follow up with primary care. Discharge orders & Medications Prescriptions: New ondansetron 4 mg tablet,disintegrating 4 mg PO Q8H PRN (Reason: nausea and vomiting) 2 Days Qty: 10 0RF Continued Ensure Plus 0.05 gram- 1.5 kcal/mL liquid 1 ea PO TID Qty: 5688 6RF Rx Instructions: Chocolate flavor is requested. diclofenac sodium 1 % gel 2 g topical 4XD PRN (Reason: pain) Qty: 100 0RF metoprolol tartrate 25 mg tablet 25 mg PO BID Qty: 180 1RF Rx Instructions: Take 1 Tablet PO BID ferrous sulfate [FeroSul] 325 mg (65 mg iron) tablet 325 mg PO DAILY Qty: 30 0RF thiamine mononitrate (vit B1) 100 mg tablet 100 mg PO DAILY Patient Comments: Pt reports taking 1 tablet (100mg) total daily. aspirin [Adult Aspirin Regimen] 81 mg tablet,delayed release (DR/EC) 81 mg PO DAILY trazodone 50 mg tablet See Rx Instructions PO BEDTIME PRN (Reason: insomnia) Qty: 60 5RF Rx Instructions: 1-2 tablets nightly as needed for sleep cyclobenzaprine 10 mg Tablet 10 mg PO Q8HR PRN (Reason: Spasms) Qty: 10 0RF pantoprazole 40 mg Tablet,Delayed Release (Dr/Ec) 40 mg PO DAILY Qty: 30 0RF lidocaine 5 % Adhesive Patch,Medicated 1 patch topical DAILY Qty: 8 0RF tramadol 50 mg Tablet 50 mg PO TID PRN (Reason: Pain, Moderate (4-6)) Qty: 15 0RF carisoprodol 350 mg tablet 350 mg PO 4XD atorvastatin 40 mg tablet 40 mg PO DAILY oxycodone 5 mg capsule 5 mg PO Q8H PRN (Reason: pain) Qty: 15 0RF Discontinued cefdinir 300 mg capsule 300 mg PO BID Qty: 14 0RF nitrofurantoin monohyd/m-cryst [Macrobid] 100 mg capsule 100 mg PO Q12H 5 Days Qty: 10 0RF Rx Instructions: must administer with a meal/food cefpodoxime 200 mg tablet 200 mg PO Q12H 7 Days Qty: 14 0RF Rx Instructions: must administer with a meal/food Follow up/Referrals: Lisbet Georges DO [Primary Care Provider, Medical] Diet/Activity/Treatments Diet: Diet as Tolerated Visit Report/Discharge Packet Instructions: Dehydration Stand Alone Forms: Patient Portal/API Discharge Data Primary Care Provider: Lisbet Georges VTE Deep Vein Thrombosis/Pulmonary Embolism Present on Admission: No
--- NOTE | 2025-05-07 13:50 | DIET.CONS ---
Dietary Consultation Note Admission Date: 05/05/2025 22:59 Assessment: 74 y F admitted for UTI/hyponatremia. Screened for MNA. Hx of chronic mlanutrition. Met with pt at bedside, pt getting ready to d/c. Reports eating multiple meals daily when she left hospital last admission, but last several days was nauseated and not eating. +2 kg since last admission. Reports she has pantry full of lots of food to eat and will resume eating small freq meals upon d/c to gain weight. Ht: 149.86 cm Wt: 45 kg BMI: 20.0 UBW: 42.638 kg on 04/15/25, 03/16/25 45.677 kg, 48.988 kg on 02/14/25 (-8% weight loss in 3 month, severe) Last BM: () MNA: 4 Jaswant Score: 17 Diet: 05/06/25 Breakfast Heart Healthy Diet Diet Modifications: Nutrition Percent Meal Consumed 100% 05/07/25 13:15 Labs: RBC 3.77 X10^6/uL (4.0-5.2) L 05/05/25 20:56 Hgb 12.3 g/dL (12.0-16.0) 05/05/25 20:56 Hct 36.5 % (36-46) 05/05/25 20:56 Creatinine 0.88 mg/dL (0.52-1.04) 05/07/25 10:55 Lactate 1.4 mmol/L (0.7-2.1) 05/05/25 20:56 Nutrition Diagnosis: Severe acute on chronic Protein Calorie Malnutrition r/t hx of difficulty caring for self and periods of low appetite/nausea as evidenced by 8% weight loss within 3 months (severe), BMI chronically underweight for age, <50% of estimated energy needs for >6 months per diet recall (severe) Interventions: -Vanilla protein shake provided at lunch, to d/c today EER: 1600 kcals (35 kcals/kg per BMI) 55 g protein (1.2 g/kg per PCM but noting hx CKD3) Monitoring/Evaluations: f/u PRN, to d/c today Electronically Signed by: Keysha Campos 05/07/25 13:50 Clinical Dietitian [address] [id number]
[2025-05-07] MEDS: POTASSIUM CHLORIDE 20 MEQ TAB 40 MEQ PO (14:17)
--- NOTE | 2025-05-07 14:44 | PC.NURSE ---
Pt being discharged home with significant other with private vehicle. PO 5mg oxy given per patient request and 40mg Potassium just prior to discharge. All belongings accounted for, IV removed and questions answered.
[2025-05-07 15:13] LABS: Osmolality, Serum 269 mOsmol/kg (280-301)
== END 2025-05-07 14:42 | disposition home or self-care (01) | DRG 690 ==
LOC: ED 22:57 → AC 22:59 → ICU 23:04
PROVIDERS: Hospitalist; Admitting Provider Internal Medicine; Emergency Provider Emergency Medicine; PCP Family Medicine; Referring Provider Emergency Medicine; Visit Provider Internal Medicine
DX: N39.0 Urinary tract infection, site not specified (principal); E87.1 Hypo-osmolality and hyponatremia; E87.20 Acidosis, unspecified; I25.10 Atherosclerotic heart disease of native coronary artery without angina pectoris; G47.00 Insomnia, unspecified; K21.9 Gastro-esophageal reflux disease without esophagitis; F10.10 Alcohol abuse, uncomplicated; D50.9 Iron deficiency anemia, unspecified; E86.9 Volume depletion, unspecified; E87.8 Other disorders of electrolyte and fluid balance, not elsewhere classified; F15.91 Other stimulant use, unspecified, in remission; K76.9 Liver disease, unspecified; I10 Essential (primary) hypertension; E78.5 Hyperlipidemia, unspecified; Z86.73 Personal history of transient ischemic attack (TIA), and cerebral infarction without residual deficits; Z87.440 Personal history of urinary (tract) infections
CPT/HCPCS: 36415; 36600; 70450; 71045; 80048; 80053; 80320; 80329; 81001; 82009; 82550; 83605; 83690; 83735; 83930; 84145; 84484; 85007; 85025; 87040; 87086; 87637; 87797; 93005; 93010; 96361; 96365; 96375; 99284; G0480; J0360; J0696; J2270; J2405; J3375

== ENCOUNTER 2025-05-20 10:16 | Emergency (ER) | payer MEDICARE, MEDICAID, SELFPAY ==
[2022-07-22 07:16] VITALS: RESP 28
[2022-07-22 14:33] VITALS: PULSE 127; RESP 38; O2SAT 100
[2025-05-20] VITALS (27 sets, daily range): BP systolic 129–220; BP diastolic 67–115; PULSE 73–117; RESP 10–38; TEMP 36.2; O2SAT 98–100
[2025-05-20 10:57] LABS: Add Manual Diff / Slide Review NO; Hematocrit 34.5 % (36-46); Hemoglobin 11.5 g/dL (12.0-16.0); Lymphocytes Absolute Auto 3300 /uL (1100-4500); Mean Corpuscular HGB Conc 33.5 % (30-36); Mean Corpuscular Hemoglobin 33.0 PG (26-34); Mean Corpuscular Volume 98.6 fL (80-100); Platelet Count 696 X10^3/uL (150-400)
--- NOTE | 2025-05-20 11:02 | ED.FEMALEGU ---
HPI - Female Genitourinary General Chief complaint: Urogenital-Female Stated complaint: Urinary retention Time Seen by Provider: 05/20/25 10:25 History of Present Illness HPI Narrative: 74-year-old female status post urethral surgery remotely in [place], issues with urinary retention, history of kidney stones, wheelchair bound, here with difficulty with urination. Patient reports has had dribbling with attempts to urinate since last night. She is having right kidney pain and points to her RLQ. She is concerned that she is septic as has had sepsis before. No known fevers but has had chills. No other prior abdominal surgeries. Has not yet established in this area with PCP or Urology. Related Data Home Medications ?Medication ?Instructions ?Recorded ?Confirmed aspirin 81 mg tablet,delayed 81 mg PO DAILY 04/13/24 05/06/25 release (Adult Aspirin Regimen) thiamine mononitrate (vit B1) 100 100 mg PO DAILY 11/03/24 05/06/25 mg tablet atorvastatin 40 mg tablet 40 mg PO DAILY 05/06/25 05/06/25 carisoprodol 350 mg tablet 350 mg PO 4XD 05/06/25 05/06/25 Previous Rx's ?Medication ?Instructions ?Recorded food supplemt, lactose-reduced 1 ea PO TID #5,688 mL 11/20/23 0.05 gram-1.5 kcal/mL oral liquid (Ensure Plus) diclofenac sodium 1 % topical gel 2 g topical 4XD PRN pain #100 grams 07/27/24 ferrous sulfate 325 mg (65 mg 325 mg PO DAILY #30 tabs 08/28/24 iron) tablet (FeroSul) trazodone 50 mg tablet See Rx Instructions PO BEDTIME PRN 10/06/24 insomnia #60 tabs metoprolol tartrate 25 mg tablet 25 mg PO BID #180 tabs 02/03/25 lidocaine 5 % topical patch 1 patch topical DAILY #8 ea 03/22/25 tramadol 50 mg tablet 50 mg PO TID PRN Pain, Moderate 03/23/25 (4-6) #15 tabs cyclobenzaprine 10 mg tablet 10 mg PO Q8HR PRN Spasms #10 tabs 04/14/25 pantoprazole 40 mg tablet,delayed 40 mg PO DAILY #30 tabs 04/14/25 release oxycodone 5 mg capsule 5 mg PO Q8H PRN pain #15 caps 05/07/25 cefpodoxime 100 mg tablet 100 mg PO BID 10 days #20 tabs 05/20/25 oxycodone 5 mg tablet 5 mg PO Q8H PRN pain #6 tabs 05/20/25 Allergies Allergy/AdvReac Type Severity Reaction Status Date / Time furosemide (From Lasix) Allergy Intermediate Rash Verified 05/01/25 13:04 amitriptyline (AMITRIPTYLINE) AdvReac Intermediate Confusion Verified 05/01/25 13:04 duloxetine AdvReac Intermediate GI distress Verified 05/01/25 13:04 cyclobenzaprine AdvReac Dizziness Verified 05/01/25 13:04 Review of Systems Review of Systems Narrative: Pertinent ROS obtained and negative except as stated in HPI Patient History Medical History Family history of colon cancer in father Closed fracture of left distal femur Immunodeficiency due to conditions classified elsewhere Age-related osteoporosis without current pathological fracture History of vertebral compression fracture GERD without esophagitis Primary osteoarthritis involving multiple joints Chronic low back pain Stage 3b chronic kidney disease (CKD) Mixed hyperlipidemia Essential hypertension Cerebrovascular disease Coronary artery disease Recurrent UTI Displaced comminuted fracture of shaft of tibia Septic shock Left rib fracture Closed left clavicular fracture Iron (Fe) deficiency anemia Nephrolithiasis Peptic ulcer disease History of osteomyelitis Fracture, tibia Left foot drop Numbness and tingling HLD (hyperlipidemia) C. difficile colitis Colitis Anxiety Insomnia Arthritis DJD (degenerative joint disease) Depression Fibromyalgia Migraines Multiple fractures Osteoporosis Radius fracture (08/30/17) Neuropathy History of recurrent UTIs Renal disease Hypertension Chronic pain GI bleeding Surgical History Hx of kyphoplasty (07/28/19) Hx of kyphoplasty (04/28/19) Hx of kyphoplasty (~2013) Hx of elbow surgery Hx of appendectomy Hx of cholecystectomy Status post epidural steroid injection (03/25/19) H/O: hysterectomy Hx of tonsillectomy History of surgery Family History Mother No known health problems COPD (chronic obstructive pulmonary disease) Father No known health problems tobacco type: vaping Exam Initial Vital Signs Initial Vital Signs: Vital Signs Temperature 97.2 F L 05/20/25 10:19 Pulse Rate 82 05/20/25 10:19 Respiratory Rate 16 05/20/25 10:19 Blood Pressure 167/81 H 05/20/25 10:19 Pulse Oximetry 100 05/20/25 10:19 Oxygen Delivery Method Room Air 05/20/25 10:19 Constitutional: Chronically ill-appearing 74-year-old female resting in bed, cachectic Head: NCAT Cardiovascular: RRR, no murmur or rub Pulmonary: CTA bilaterally, no respiratory distress Abdominal: soft, non-tender patient does not react to the patient of the abdomen, localizes pain to right lower quadrant, no CVA tenderness Extremities: No LE edema Skin: warm and dry, no diaphoresis Neurological: Alert and oriented x3 Course Orders Ordered: Discontinued Medications Sodium Chloride (Normal Saline 0.9%) 500 mls @ 1,000 mls/hr IV BOLUS ONE Stop: 05/20/25 11:36 Last Infusion: 05/20/25 13:49 Dose: Infused Documented By: Admin: 05/20/25 11:38 Dose: 1,000 mls/hr Documented By: CTS Sodium Chloride (Normal Saline 0.9%) 500 mls @ 1,000 mls/hr IV BOLUS ONE Stop: 05/20/25 13:06 Last Admin: 05/20/25 13:49 Dose: Not Given Documented By: CTS Ceftriaxone Sodium 1,000 mg/ (Sodium Chloride) 100 mls @ 200 mls/hr IV NOW ONE Stop: 05/20/25 18:31 Last Infusion: 05/20/25 19:31 Dose: Infused Documented By: Admin: 05/20/25 18:47 Dose: 200 mls/hr Documented By: CTS Morphine Sulfate (Morphine 4 Mg/Ml Inj) 4 mg IV NOW ONE Stop: 05/20/25 11:06 Last Admin: 05/20/25 11:38 Dose: 4 mg Documented By: CTS Morphine Sulfate (Morphine 4 Mg/Ml Inj) 4 mg IV NOW ONE Stop: 05/20/25 15:10 Last Admin: 05/20/25 15:14 Dose: 4 mg Documented By: CTS Nitrofurantoin Macrocrystals (Nitrofurantoin Er 100 Mg Capsule) 100 mg PO NOW ONE Stop: 05/20/25 15:29 Last Admin: 05/20/25 15:57 Dose: 100 mg Documented By: BESSIE Ondansetron HCl (Ondansetron 4 Mg/2 Ml Inj) 4 mg IV NOW PRN PRN Reason: Nausea And Vomiting Last Admin: 05/20/25 11:38 Dose: 4 mg Documented By: BESSIE Ondansetron HCl (Ondansetron 4 Mg Odt) 4 mg PO NOW PRN PRN Reason: Nausea And Vomiting Oxycodone HCl (Oxycodone Ir 5 Mg Tablet) 5 mg PO NOW ONE Stop: 05/20/25 18:52 Last Admin: 05/20/25 19:10 Dose: 5 mg Documented By: BESSIE Vital Signs Vital signs: Vital Signs - 8 hr 05/20/25 10:19 05/20/25 10:21 05/20/25 10:22 Temperature 97.2 F L Pulse Rate 82 77 80 Respiratory Rate 16 14 15 Blood Pressure 167/81 H Pulse Oximetry 100 100 100 Oxygen Delivery Method Room Air 05/20/25 10:22 05/20/25 10:30 05/20/25 10:30 Temperature Pulse Rate 77 Respiratory Rate 23 Blood Pressure 167/81 H 178/83 H Pulse Oximetry 100 Oxygen Delivery Method 05/20/25 11:00 05/20/25 11:00 05/20/25 11:20 Temperature Pulse Rate 84 77 Respiratory Rate 31 H 15 Blood Pressure 190/106 H Pulse Oximetry 100 100 Oxygen Delivery Method 05/20/25 11:20 05/20/25 11:30 05/20/25 11:39 Temperature Pulse Rate 79 77 Respiratory Rate 29 H 32 H Blood Pressure 183/77 H Pulse Oximetry 100 100 Oxygen Delivery Method 05/20/25 11:39 05/20/25 12:00 05/20/25 12:30 Temperature Pulse Rate 73 74 Respiratory Rate 15 15 Blood Pressure 129/67 Pulse Oximetry 100 100 Oxygen Delivery Method 05/20/25 12:30 05/20/25 13:00 05/20/25 13:01 Temperature Pulse Rate 75 75 Respiratory Rate 15 10 L Blood Pressure 185/103 H Pulse Oximetry 100 100 Oxygen Delivery Method 05/20/25 13:01 05/20/25 13:30 05/20/25 13:30 Temperature Pulse Rate 78 Respiratory Rate 18 Blood Pressure 178/73 H 162/72 H Pulse Oximetry 100 Oxygen Delivery Method 05/20/25 14:00 05/20/25 14:00 05/20/25 14:30 Temperature Pulse Rate 78 81 Respiratory Rate 10 L 30 H Blood Pressure 193/82 H Pulse Oximetry 100 100 Oxygen Delivery Method 05/20/25 14:31 05/20/25 14:31 05/20/25 15:00 Temperature Pulse Rate 83 Respiratory Rate 14 Blood Pressure 150/70 H 152/115 H Pulse Oximetry 100 Oxygen Delivery Method 05/20/25 15:00 05/20/25 15:30 05/20/25 15:30 Temperature Pulse Rate 88 81 Respiratory Rate 25 H 12 Blood Pressure 187/82 H Pulse Oximetry 100 98 Oxygen Delivery Method 05/20/25 16:00 05/20/25 16:30 05/20/25 16:31 Temperature Pulse Rate 91 H 80 81 Respiratory Rate 38 H 14 12 Blood Pressure Pulse Oximetry 100 100 100 Oxygen Delivery Method 05/20/25 16:31 05/20/25 17:00 05/20/25 17:00 Temperature Pulse Rate 83 Respiratory Rate 20 Blood Pressure 199/83 H 189/82 H Pulse Oximetry 100 Oxygen Delivery Method 05/20/25 17:30 05/20/25 17:30 Temperature Pulse Rate 86 Respiratory Rate 14 Blood Pressure 167/74 H Pulse Oximetry 100 Oxygen Delivery Method MDM - Female Genitourinary Medical Records Medical records narrative: In brief, this is a 74-year-old female with many comorbidities here with dribbling with urination, low abdominal discomfort, flank discomfort. She reports history of urethral surgery remotely in [place], issues with urinary retention, history of kidney stones, wheelchair bound and has a caregiver. She reports she is having right kidney pain and points to her RLQ. She has not established with primary care or Urology in this community. In chart review I see has numerous prior medical diagnoses including chronic pain, CKD 3, hypertension, CAD, recurrent UTI, iron deficiency anemia, peptic ulcer, osteomyelitis, colitis, fibromyalgia, migraines, fractures, On arrival to the emergency department, the patient appears uncomfortable. She is cachectic, says is nonambulatory. She is accompanied by her caregiver Exam is pertinent for: Patient noted to be hypertensive without fever, normal pulse. Does not react with palpation of the abdomen, no CVA tenderness Differential diagnoses considered but not limited to: Ureteral colic, pyelonephritis, ureteral stricture, urinary retention, cystitis, less likely acute appendicitis or diverticulitis clinically Initial treatment plan includes: Bladder scan, laboratories, CT scan abdomen and pelvis, IV morphine Bladder scan 180 ml. Will fluid bolus, see if retaining or able to urinate Laboratories pertinent for: No leukocytosis, stable borderline microcytic anemia, thrombocytosis, normal coags, stable chronic hyponatremia, elevated BUN creatinine 33/1.42 with chronic renal insufficiency I do not think is service support representative of FE, chronic alk-phos elevation without LFT elevations. Urinalysis shows 1+ leuk esterase and moderate bacteria although was obtained via purewick. It is sent to culture. Imaging pertinent for: CT abd/pelvis IMPRESSION: No change from prior studies which document chronic atrophy of the left kidney that is moderate in severity and compensatory hypertrophy of the right kidney. No hydronephrosis is seen bilaterally. No hydroureter is found. Chronic collecting system calculi are again noted at the left kidney. Radiologist contacted me regarding lipomatous changes of CT found incidentally. Dr. Barba recommended proceed with echo to evaluate for atrial myxoma. Echocardiogram was obtained which shows possibly increased lipomatous hypertrophy although atrial myxoma is not ruled out. Spoke with treasury management sales consultant Dr. Mosqueda were starting this finding, recommends outpatient follow up with Dr. Boyce with whom she is established in the past On reassessment patient is resting comfortably. Her heart rate and blood pressure have been increasing. She has not taken her evening metoprolol dose. Pain is controlled. We discussed laboratory and CT findings. Workup today is generally benign, explained that UA is not overtly infected and I am hesitant to attribute her symptoms to this. With increasing HR/BP I did offer pt her home metroprolol, IVF, check additional laboratories, observe. Pt feels improved and would not like to stay any longer. She understands need to establish with primary care and I was able to place e-referal. Pt requesting pain medication to use at home. Return precautions discussed and provided prior to discharge Pertinent scoring tools used to guide clinical decision making, if applicable: Lab Data 05/20/25 10:46 05/20/25 10:46 Labs: Lab Results 05/20/25 05/20/25 Range/Units 10:46 12:53 WBC 7.9 (4.5-11.0) X10^3/uL RBC 3.50 L (4.0-5.2) X10^6/uL Hgb 11.5 L (12.0-16.0) g/dL Hct 34.5 L (36-46) % MCV 98.6 (80-100) fL MCH 33.0 (26-34) PG MCHC 33.5 (30-36) % RDW 20.1 H (11.6-14.8) % Plt Count 696 H (150-400) X10^3/uL Neut % (Auto) 49.1 L (50-75) % Lymph % (Auto) 41.8 H (25-40) % [place] % (Auto) 6.3 (3-14) % Eos % (Auto) 0.9 L (2-4) % Baso % (Auto) 1.9 (0-2) % Neut # (Auto) 3900 (7464-9650) /uL Lymph # (Auto) 3300 (2682-1355) /uL [place] # (Auto) 500 (0-900) /uL Eos # (Auto) 100 (0-450) /uL Baso # (Auto) 100 (0-100) /uL Sodium 136 L (137-145) mmol/L Potassium 4.9 (3.4-5.1) mmol/L Chloride 106 (98-107) mmol/L Carbon Dioxide 13 L (22-32) mmol/L BUN 33 H (7-17) mg/dL Creatinine 1.42 H (0.52-1.04) mg/dL Estimated GFR 39 L (>60) mL/min BUN/Creatinine Ratio 23.2 H (6-22) Glucose 119 H (70-99) mg/dL Calcium 9.4 (8.4-10.2) mg/dL Total Bilirubin 0.4 (0.2-1.3) mg/dL AST 28 (14-36) IU/L ALT 17 (<35) IU/L Alkaline Phosphatase 235 H (38-126) U/L Total Protein 8.3 H (6.3-8.2) g/dL Albumin 4.6 (3.5-5.0) g/dL Globulin 3.7 (1.7-4.1) g/dL Albumin/Globulin Ratio 1.2 (1.0-2.8) Lipase 146 (23-300) U/L Urine Color Yellow Urine Appearance Clear Urine pH 6.0 (4.5-8.0) Ur Specific [place] 1.015 (1.000-1.035) Urine Protein 1+ H (Negative) Urine Glucose (UA) Negative (Negative) g/dL Urine Ketones Negative (NEGATIVE) Urine Occult Blood Negative (Negative) Urine Nitrate Negative (Negative) Urine Bilirubin Negative (NEGATIVE) Urine Urobilinogen 0.2 (0.2) E.U./dL Ur Leukocyte Esterase 1+ H (NEGATIVE) Urine RBC None seen (0-5/HPF) Urine WBC 0-1/hpf (0-5/HPF) Ur Squamous Epith Cells None seen (0-5/HPF) Urine Bacteria Moderate (10-30) H (None) Ur Culture Indicated? Specimen cultured Vol Urine Centrifuged 10ml (spun) Discharge Plan Departure Patient Disposition: Home Clinical Impression: Recurrent UTI, Anemia, Chronic renal insufficiency Instructions: DI for Urinary Tract Infection (UTI) Activity Restrictions/Additional Instructions: CT scan today showed chronic atrophy of the left kidney that is known to you. No new findings in the abdomen and pelvis were noted to explain your pain. As we discussed urinalysis was not obviously infected although given your symptoms I have prescribed you an antibiotic to take to treat a possible infection while the urine culture is resulting. I would like you to follow up closely with your family doctor for recheck, ideally early next week. They may want to recheck your kidney function and make sure you are responding to antibiotics. Return to the emergency department for new or worsening symptoms such as persistent flank pain despite treatment, abdominal pain, vomiting, chest pain, or other symptoms that are concerning to you. I did prescribe you a narcotic pain medication to use as needed for severe breakthrough pain. Please try to use this sparingly. Please remember that narcotic pain medication is addictive, lethal in overdose, causes constipation and sedation. If you use this medication consistently over time, your body will become habituated to it and you will ultimately need increasing doses. In the long run, this medication will actually increase your sensitivity to pain and it does not actually address the underlying cause of pain, it only masks at temporarily. You must not drive or perform other risky behavior while on this medication. You must not combine it with alcohol or other drugs. Please only take the minimum amount needed to treat your pain. 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 The business employment specialist today wants you to follow up in the office for recheck. Please call Dr. Boyce's office Prescriptions: New cefpodoxime 100 mg tablet 100 mg PO BID 10 Days Qty: 20 0RF Rx Instructions: must administer with a meal/food oxycodone 5 mg tablet 5 mg PO Q8H PRN (Reason: pain) Qty: 6 0RF No Action Ensure Plus 0.05 gram- 1.5 kcal/mL liquid 1 ea PO TID Qty: 5688 6RF Rx Instructions: Chocolate flavor is requested. diclofenac sodium 1 % gel 2 g topical 4XD PRN (Reason: pain) Qty: 100 0RF metoprolol tartrate 25 mg tablet 25 mg PO BID Qty: 180 1RF Rx Instructions: Take 1 Tablet PO BID ferrous sulfate [FeroSul] 325 mg (65 mg iron) tablet 325 mg PO DAILY Qty: 30 0RF thiamine mononitrate (vit B1) 100 mg tablet 100 mg PO DAILY Patient Comments: Pt reports taking 1 tablet (100mg) total daily. aspirin [Adult Aspirin Regimen] 81 mg tablet,delayed release (DR/EC) 81 mg PO DAILY trazodone 50 mg tablet See Rx Instructions PO BEDTIME PRN (Reason: insomnia) Qty: 60 5RF Rx Instructions: 1-2 tablets nightly as needed for sleep cyclobenzaprine 10 mg Tablet 10 mg PO Q8HR PRN (Reason: Spasms) Qty: 10 0RF pantoprazole 40 mg Tablet,Delayed Release (Dr/Ec) 40 mg PO DAILY Qty: 30 0RF lidocaine 5 % Adhesive Patch,Medicated 1 patch topical DAILY Qty: 8 0RF tramadol 50 mg Tablet 50 mg PO TID PRN (Reason: Pain, Moderate (4-6)) Qty: 15 0RF carisoprodol 350 mg tablet 350 mg PO 4XD atorvastatin 40 mg tablet 40 mg PO DAILY oxycodone 5 mg capsule 5 mg PO Q8H PRN (Reason: pain) Qty: 15 0RF Referrals: Miscellaneous,DoctorMD [Primary Care Provider, Medical] Evan Boyce MD [Physician, Cardiology] Jamal Lockwood DO [Physician, Urology] [place], [employer] [[facility] Sales Consultant, Family Practice] Referral Note: needs to establish care Stand Alone Forms: Patient Portal/API
--- NOTE | 2025-05-20 11:05 | DI.CT.S_ITS ---
PROCEDURE: CT KIDNEY URETER BLADDER (KUB) INDICATIONS: R flank pain hx stones TECHNIQUE: CT of the abdomen and pelvis was obtained without intravenous contrast. Coronal and sagittal reformats were performed. For radiation dose reduction, the following was used: automated exposure control, adjustment of mA and/or kV according to patient size. COMPARISON: [facility], CT, CT ABDOMEN PELVIS W CON, 03/15/2025, 19:11. [facility], CT, CT KIDNEY URETER BLADDER (KUB), 04/29/2024, 15:01. FINDINGS: Image quality: Diagnostic. Lower Chest: No significant findings. ABDOMEN: Liver: No contour-deforming mass. Gallbladder: Previously resected Biliary ducts: No biliary dilation. Pancreas: No ductal dilation. Spleen: Size is within normal limits. Adrenal Glands: No adrenal nodules. Kidneys and Ureters: No hydronephrosis. No contour-deforming mass. The left kidney is relatively atrophic and contains chronic calcifications within the central portion of the collecting system which are not obstructive and have been previously present. There is relative compensatory hypertrophy of the right kidney which shows no hydronephrosis or nephrolithiasis. Along the course of the ureters and into the bladder no calculus is seen. Stomach and Bowel: Normal colonic caliber, without significant wall thickening. Chronic obstipation again noted bilaterally. Peritoneum: No abnormal intraperitoneal fluid. No free air. Ventral Wall: No significant hernia. Abdominal Nodes: No retroperitoneal or mesenteric adenopathy by size criteria. Vessels: Aorta and inferior vena cava are normal in size. PELVIS: Pelvic Organs: Unremarkable. Bladder: Unremarkable. Pelvic Nodes: No enlarged lymph nodes. Miscellaneous: No inguinal hernias are seen. Chronic obstipation. Bones: No aggressive osseous abnormality. IMPRESSION: No change from prior studies which document chronic atrophy of the left kidney that is moderate in severity and compensatory hypertrophy of the right kidney. No hydronephrosis is seen bilaterally. No hydroureter is found. Chronic collecting system calculi are again noted at the left kidney. Chronic bilateral obstipation. No definite acute disease. Dictated by: Anthony Jordan M.D. on 05/20/2025 at 11:35 Approved by: Anthony Jordan M.D. on 05/20/2025 at 11:46
[2025-05-20] MEDS: MORPHINE 4 MG/ML INJ IV ×2 (11:38→15:14)
[2025-05-20] MEDS: ONDANSETRON 4 MG/2 ML INJ IV (11:38)
[2025-05-20] MEDS: SODIUM CHLORIDE 0.9% 500 ML 1000 ML IV (11:38)
--- NOTE | 2025-05-20 11:43 | PC.NURSE ---
Purewick in place and pt medicated for pain. NAD
[2025-05-20 12:25] LABS: Alanine Aminotransferase 17 IU/L (<35); Albumin 4.6 g/dL (3.5-5.0); Albumin Globulin Ratio 1.2 (1.0-2.8); Alkaline Phosphatase 235 U/L (38-126); Blood Urea Nitrogen 33 mg/dL (7-17); Calcium 9.4 mg/dL (8.4-10.2); Carbon Dioxide 13 mmol/L (22-32); Chloride 106 mmol/L (98-107); Estimated Glomerular Filt Rate 39 mL/min (>60); Globulin 3.7 g/dL (1.7-4.1); Glucose 119 mg/dL (70-99); HEMOLYSIS 21 (0-50); Lipase 146 U/L (23-300); Potassium 4.9 mmol/L (3.4-5.1); Sodium 136 mmol/L (137-145); Total Protein 8.3 g/dL (6.3-8.2)
[2025-05-20 13:25] LABS: Appearance Urine UA CLEAR; Bilirubin Urine UA NEGATIVE (NEGATIVE); Color Urine UA YELLOW; Glucose Urine UA NEGATIVE (Negative); Ketones Urine UA NEGATIVE (NEGATIVE); Leukocyte Esterase Urine UA 1+ (NEGATIVE); Nitrite Urine UA NEGATIVE (Negative); Occult Blood Urine UA NEGATIVE (Negative); Protein Urine UA 1+ (Negative); Specific Gravity Urine UA 1.015 (1.000-1.035); Urobilinogen Urine UA 0.2 E.U./dL (0.2)
[2025-05-20 13:31] LABS: pH Urine UA 6.0 (4.5-8.0)
[2025-05-20 13:42] LABS: Culture Indicated Urine Specimen Cultured
--- NOTE | 2025-05-20 14:33 | DI.ECHO.S_ITS ---
[facility] : : [address] : : [place] : : [id number] : : Phone: [phone] Echocardiogram Report + + :Name: MAEVE RODRIGUEZ Study Date: 05/20/2025 Height: 61 in : :[facility] ReadingLocation: Weight: 101 lb : : Gender: Female BSA: 1.4 m2 : :: 1950 Age: 74 yrs BP: 152/115 mmHg: :Reason For Study: R/O ATRIAL MYXOMA : :Ordering Physician: CHARO, : :CA Performed By: Michelle Villatoro : :Referring: CA MANCILLA : + + Interpretation Summary The left ventricular cavity is small. The ejection fraction is estimated to be 70-75%. Diastolic function is indeterminate. The right ventricle is normal in size and function. There is mild mitral regurgitation. Pulmonary artery pressures cannot be estimated because of the lack of a measurable TR jet velocity but the IVC suggests a CVP of around 3 mmHg. There is significant thickening of the interatrial septum the pattern of which appears most consistent with lipomatous hypertrophy which is a normal variant. This was also present on the prior study 09/20/2022 however the superior portion of the thickening does appear increased compared to prior. A myxoma cannot be ruled out. Procedure: A two-dimensional transthoracic echocardiogram with color flow and Doppler was performed. The study quality was technically adequate. Comparison is made with the echocardiogram of 09/20/2022. A saline contrast injection was performed to assess for cardiac shunting. The patient was in sinus rhythm with heart rates between 77-84 bpm during the exam. Left Ventricle: The left ventricular cavity is small. Proximal septal thickening is noted. The ejection fraction is estimated to be 70-75%. The left ventricle is hyperdynamic. Diastolic function is indeterminate. Right Ventricle: The right ventricle is normal in size and function. Atria: The left atrium is not well visualized. The right atrium grossly appears normal in size. There is significant thickening of the interatrial septum the pattern of which appears most consistent with lipomatous hypertrophy which is a normal variant. This was also present on the prior study 09/20/2022 however the superior portion of the thickening does appear increased compared to prior. A myxoma cannot be ruled out. Mitral Valve: The mitral valve leaflets appear mildly thickened. There is mild mitral regurgitation. Aortic Valve: The aortic valve is trileaflet. The aortic valve opens well. There is no aortic valve stenosis. No aortic regurgitation is present. Tricuspid Valve: The tricuspid valve leaflets are thin and pliable. There is a trace or physiologic amount of tricuspid regurgitation. Pulmonary artery pressures cannot be estimated because of the lack of a measurable TR jet velocity but the IVC suggests a CVP of around 3 mmHg. Pulmonic Valve: The pulmonic valve leaflets are thin and pliable; valve motion is normal. There is no pulmonic valvular regurgitation. Great Vessels: The aortic root is normal size. The dimensions of the ascending aorta are normal. The IVC is of normal diameter and collapses greater than 50% with a sniff. This suggests a low right atrial pressure of 3 mm Hg. Pericardium/ Pleura There is no pericardial effusion. There has been no significant change since the previous study. MMode/2D Measurements & Calculations LVIDd: 3.1 cm LVOT diam: 2.0 cm LVIDs: 2.1 cm Ao root diam: 3.0 cm FS: 33.7 % asc Aorta Diam: 3.1 cm EPSS: 0.50 cm Ao Arch Diam (Prox Trans): 1.8 cm IVSd: 0.95 cm LVPWd: 0.95 cm LV delgado. diameter/BSA (cm/m^2): 2.2 LV sys. diameter/BSA (cm/m^2): 1.5 LA A4 area: 12.5 cm2 RA long axis: 4.1 cm LA length (vol): 4.2 cm RA area: 7.3 cm2 RA vol: 11.0 ml RA : 7.8 ml/m2 IVC diam: 1.5 cm RVD1 (basal): 2.4 cm RVD2 (mid): 1.6 cm TAPSE: 1.6 cm Doppler Measurements & Calculations Ao V2 max: 96.4 cm/sec LVOT Max Graham: 133.8 cm/sec Ao V2 mean: 67.5 cm/sec LV V1 max P.2 mmHg Ao max P.9 mmHg LV V1 VTI: 25.5 cm Ao mean P.7 mmHg CHRISTY(I,D): 4.4 cm2 Ao V2 VTI: 18.3 cm CHRISTY(V,D): 4.4 cm2 sev ratio: 1.4 CHRISTY indexed to BSA (cm^2/m^2): 3.1 MV E max graham: 74.7 cm/sec PA V2 max: 99.9 cm/sec MV A max graham: 94.0 cm/sec PA V2 mean: 69.1 cm/sec MV E/A: 0.79 PA mean P.2 mmHg Med Peak E' Graham: 8.1 cm/sec PA pr(Accel): 37.9 mmHg E/E' med: 9.2 Lat Peak E' Graham: 8.1 cm/sec E/E' lat: 9.3 E/e' average: 9.2 MV dec time: 0.20 sec SV(LVOT): 80.0 ml Reading Physician:04:57 PM
--- NOTE | 2025-05-20 14:35 | EKG_ITS ---
[place] [id number] [address] [place] [id number] Test Date: 2025-05-20 Pat Name: Emani Leiva Department: [facility] Room: Gender: Female [employer]: : 1950 Requested By: Order Number: [id number] Reading MD: Master Bernabe Measurements Intervals [place] Rate: 78 P: 85 HI: 152 QRS: 98 QRSD: 62 T: 90 QT: 364 QTc: 414 Interpretive Statements Normal sinus rhythm Rightward axis Nonspecific ST and T wave abnormality Electronically Signed On 05-20-2025 18:23:05 PDT by Master Bernabe
[2025-05-20] MEDS: NITROFURANTOIN ER 100 MG CAPSULE PO (15:57)
== END 2025-05-20 19:35 | disposition home or self-care (01) ==
PROVIDERS: Emergency Provider Student in an Organized Health Care Education/Training Program
DX: N39.0 Urinary tract infection, site not specified (principal); D64.9 Anemia, unspecified; N28.9 Disorder of kidney and ureter, unspecified; Z87.442 Personal history of urinary calculi
CPT/HCPCS: 36415; 51798; 74176; 80053; 81001; 83690; 85025; 87077; 87086; 93005; 93306; 96361; 96365; 96375; 96376; 99284; J0696; J2270; J2405

== ENCOUNTER 2025-05-26 19:59 | Inpatient (IN) | payer MEDICARE, MEDICAID, SELFPAY ==
[2022-07-22 07:16] VITALS: RESP 28
[2022-07-22 14:33] VITALS: PULSE 127; RESP 38; O2SAT 100
[2025-05-26 20:15] VITALS: BP 122/61; PULSE 89; RESP 16; TEMP 36.4; O2SAT 95; BMI 17.2
[2025-05-26 23:30] VITALS: BP 121/56; PULSE 95; O2SAT 100
[2025-05-27] VITALS (23 sets, daily range): BP systolic 108–157; BP diastolic 51–69; PULSE 86–120; RESP 16–24; TEMP 36.1–36.5; O2SAT 94–100; BMI 17.2
[2025-05-27 01:38] LABS: Appearance Urine UA SL CLOUDY; Bilirubin Urine UA NEGATIVE (NEGATIVE); Color Urine UA YELLOW; Glucose Urine UA NEGATIVE (Negative); Ketones Urine UA TRACE (NEGATIVE); Leukocyte Esterase Urine UA 1+ (NEGATIVE); Nitrite Urine UA NEGATIVE (Negative); Occult Blood Urine UA TRACE-INTACT (Negative); Protein Urine UA 1+ (Negative); Specific Gravity Urine UA 1.010 (1.000-1.035); Urobilinogen Urine UA 0.2 E.U./dL (0.2)
--- NOTE | 2025-05-27 01:38 | ED_ITS ---
HPI - Female Genitourinary General Chief complaint: Urogenital-Female Stated complaint: UTI Time Seen by Provider: 05/26/25 22:12 Source: patient and EMS Mode of arrival: EMS History of Present Illness HPI Narrative: 74-year-old female with history of recurrent urinary tract infection, prior kidney stones, most recently seen here 05/20/2025 for urinary tract infection, started on cefpodoxime/Vantin oral antibiotic, has increasing right-sided abdominal pain. Denies nausea or vomiting. Denies fevers or chills. She was given prescription short course oxycodone, has run out of this medication. Has history of stomach ulcers, prescribed Protonix in the past. Denies chest pain, cough, shortness of breath. Related Data Home Medications ?Medication ?Instructions ?Recorded ?Confirmed aspirin 81 mg tablet,delayed 81 mg PO DAILY 04/13/24 0 05/06/25 release (Adult Aspirin Regimen) thiamine mononitrate (vit B1) 100 100 mg PO DAILY 10/1705/06/25 mg tablet atorvastatin 40 mg tablet 40 mg PO DAILY 05/06/2504/19 carisoprodol 350 mg tablet 350 mg PO 4XD 05/06/2504/19 Previous Rx's ?Medication ?Instructions ?Recorded food supplemt, lactose-reduced 1 ea PO TID #5,688 mL 0 11/20/23 0.05 gram-1.5 kcal/mL oral liquid (Ensure Plus) diclofenac sodium 1 % topical gel 2 g topical 4XD PRN pain #100 grams 07/27/24 ferrous sulfate 325 mg (65 mg 325 mg PO DAILY #30 tabs 08/28/24 iron) tablet (FeroSul) trazodone 50 mg tablet See Rx Instructions PO BEDTI ME PRN 10/06/24 insomnia #60 tabs metoprolol tartrate 25 mg tablet 25 mg PO BID #180 tab s 02/03/25 lidocaine 5 % topical patch 1 patch topical DAILY #8 e a 03/22/25 tramadol 50 mg tablet 50 mg PO TID PRN Pain, Moder ate 03/23/25 (4-6) #15 tabs cyclobenzaprine 10 mg tablet 10 mg PO Q8HR PRN Spasms #10 tabs 04/14/25 pantoprazole 40 mg tablet,delayed 40 mg PO DAILY #30 t abs 04/14/25 release oxycodone 5 mg capsule 5 mg PO Q8H PRN pain #15 cap s 05/07/25 cefpodoxime 100 mg tablet 100 mg PO BID 10 days #20 ta bs 05/20/25 oxycodone 5 mg tablet 5 mg PO Q8H PRN pain #6 tabs 05/20/25 Allergies Allergy/AdvReac Type Severity Reaction Status Date / Time furosemide (From Lasix) Allergy Intermediate Rash Verified 05/26/25 20:29 amitriptyline (AMITRIPTYLINE) AdvReac Intermediate Confusion Verified 05/26/25 20:29 duloxetine AdvReac Intermediate GI distress Verified 05/26/25 20:29 trazodone AdvReac Intermediate Verified 05/26/25 20:29 cyclobenzaprine AdvReac Dizziness Verified 05/26/25 20:29 Patient History Medical History Family history of colon cancer in father Closed fracture of left distal femur Immunodeficiency due to conditions classified elsewhere Age-related osteoporosis without current pathological fracture History of vertebral compression fracture GERD without esophagitis Primary osteoarthritis involving multiple joints Chronic low back pain Stage 3b chronic kidney disease (CKD) Mixed hyperlipidemia Essential hypertension Cerebrovascular disease Coronary artery disease Recurrent UTI Displaced comminuted fracture of shaft of tibia Septic shock Left rib fracture Closed left clavicular fracture Iron (Fe) deficiency anemia Nephrolithiasis Peptic ulcer disease History of osteomyelitis Fracture, tibia Left foot drop Numbness and tingling HLD (hyperlipidemia) C. difficile colitis Colitis Anxiety Insomnia Arthritis DJD (degenerative joint disease) Depression Fibromyalgia Migraines Multiple fractures Osteoporosis Radius fracture (08/30/17) Neuropathy History of recurrent UTIs Renal disease Hypertension Chronic pain GI bleeding Surgical History Hx of kyphoplasty (07/28/19) Hx of kyphoplasty (04/28/19) Hx of kyphoplasty (~2013) Hx of elbow surgery Hx of appendectomy Hx of cholecystectomy Status post epidural steroid injection (03/25/19) H/O: hysterectomy Hx of tonsillectomy History of surgery Family History Mother No known health problems COPD (chronic obstructive pulmonary disease) Father No known health problems tobacco type: vaping Exam Narrative Exam Narrative: GENERAL: Well-developed patient, in mild distress. HEAD: Atraumatic. Normocephalic. EYES: Pupils equal round and reactive. Extraocular motions intact. No scleral icterus. No injection or drainage. ENT: Nose without bleeding, purulent drainage. Throat without erythema, tonsillar hypertrophy or exudate. Airway patent. NECK: Trachea midline. Non tender CARDIOVASCULAR: Regular rate and rhythm without murmurs, gallops, or rubs. RESPIRATORY: Clear to auscultation. Breath sounds equal bilaterally. No wheezes, rales, or rhonchi. GASTROINTESTINAL: Abdomen soft, non-tender, nondistended. EXTREMITIES: No edema or joint tenderness. BACK: Nontender without deformity or crepitance. No flank tenderness. NEURO: AOx3. Motor functions grossly nonfocal. SKIN: No rash or erythema of visible areas Initial Vital Signs Initial Vital Signs: Vital Signs Temperature 97.5 F L 05/26/25 20:15 Pulse Rate 89 05/26/25 20:15 Respiratory Rate 16 05/26/25 20:15 Blood Pressure 122/61 05/26/25 20:15 Pulse Oximetry 95 05/26/25 20:15 Oxygen Delivery Method Room Air 05/26/25 20:15 Course Orders Ordered: Acetaminophen (Acetaminophen 325 Mg Tablet) 650 mg PO Q6H PRN PRN Reason: Fever/Mild Pain (1-3) Hydrocodone Bitart/Acetaminophen (Hydrocodone/Acet 5/325 Tablet) 1 tab PO Q4H PRN PRN Reason: Pain, Moderate (4-6) Last Admin: 05/27/25 06:37 Dose: 1 tab Documented By: ARTHUR Aspirin (Aspirin Ec 81 Mg Tablet) 81 mg PO DAILY [facility] Last Admin: 05/27/25 08:43 Dose: 81 mg Documented By: CELINA Atorvastatin Calcium (Atorvastatin 20 Mg Tablet) 40 mg PO DAILY [facility] Last Admin: 05/27/25 08:43 Dose: 40 mg Documented By: CELINA Heparin Sodium (Porcine) (Heparin 5,000 Unit/Ml Vial) 5,000 unit SUBCUT BID [facility] Last Admin: 05/27/25 08:43 Dose: 5,000 unit Documented By: CELINA Sodium Bicarbonate 150 meq/ (Dextrose) 1,150 mls @ 150 mls/hr IV CONT [facility] Last Admin: 05/27/25 13:13 Dose: 150 mls/hr Documented By: CELINA Ceftriaxone Sodium 1,000 mg/ (Sodium Chloride) 100 mls @ 200 mls/hr IV Q24H [facility] Last Infusion: 05/27/25 15:05 Dose: Infused Documented By: Admin: 05/27/25 13:13 Dose: 200 mls/hr Documented By: CELINA Metoprolol Tartrate (Metoprolol Ir 25 Mg Tablet) 25 mg PO BID [facility] Last Admin: 05/27/25 08:43 Dose: 25 mg Documented By: CELINA Naloxone HCl (Naloxone 0.4 Mg/Ml Vial) 0.2 mg IV Q2MIN PRN PRN Reason: Opiate Reversal Ondansetron HCl (Ondansetron 4 Mg/2 Ml Inj) 4 mg IV Q8HR PRN PRN Reason: Nausea And Vomiting Oxycodone/Acetaminophen (Oxycodone/Acetaminophen 5/325 Tablet) 1 tab PO Q4HR PRN PRN Reason: Pain, Moderate (4-6) Last Admin: 05/27/25 13:12 Dose: 1 tab Documented By: Admin: 05/27/25 09:56 Dose: 1 tab Documented By: CELINA Pantoprazole Sodium (Pantoprazole Dr 40 Mg Tablet) 40 mg PO DAILY [facility] Last Admin: 05/27/25 08:43 Dose: 40 mg Documented By: CELINA Discontinued Medications Hydromorphone HCl (Hydromorphone Hcl 0.5 Mg/0.5 Ml Syringe) 0.5 mg IV NOW ONE Stop: 05/27/25 03:13 Last Admin: 05/27/25 03:17 Dose: 0.5 mg Documented By: JUSTYNA Ceftriaxone Sodium 1,000 mg/ (Sodium Chloride) 100 mls @ 200 mls/hr IV NOW ONE Stop: 05/27/25 01:54 Last Infusion: 05/27/25 03:32 Dose: Infused Documented By: Admin: 05/27/25 02:40 Dose: 200 mls/hr Documented By: JUSTYNA Sodium Chloride (Normal Saline 0.9%) 1,000 mls @ 1,000 mls/hr IV BOLUS ONE Stop: 05/27/25 04:11 Last Infusion: 05/27/25 04:35 Dose: Infused Documented By: Admin: 05/27/25 03:26 Dose: 1,000 mls/hr Documented By: JUSTYNA Sodium Chloride (Normal Saline 0.9%) 1,000 mls @ 1,000 mls/hr IV BOLUS ONE Stop: 05/27/25 05:42 Last Admin: 05/27/25 06:29 Dose: Not Given Documented By: ARTHUR Meropenem 500 mg/ Sodium (Chloride) 100 mls @ 200 mls/hr IV NOW ONE Stop: 05/27/25 04:54 Last Infusion: 05/27/25 08:43 Dose: Infused Documented By: Admin: 05/27/25 06:46 Dose: 200 mls/hr Documented By: ARTHUR Sodium Chloride (Normal Saline 0.9%) 1,000 mls @ 100 mls/hr IV CONT [facility] Last Infusion: 05/27/25 12:58 Dose: Infused Documented By: Admin: 05/27/25 06:42 Dose: 100 mls/hr Documented By: ARTHUR Meropenem 500 mg/ Sodium (Chloride) 100 mls @ 200 mls/hr IV Q8H [facility] Meropenem 250 mg/ Sodium (Chloride) 100 mls @ 200 mls/hr IV Q12H [facility] Meropenem 500 mg/ Sodium (Chloride) 100 mls @ 200 mls/hr IV Q12H [facility] Vital Signs Vital signs: Vital Signs - 8 hr 05/26/25 20:15 Temperature 97.5 F L Pulse Rate 89 Respiratory Rate 16 Blood Pressure 122/61 Pulse Oximetry 95 Oxygen Delivery Method Room Air MDM - Female Genitourinary Lab Data Attestation: I reviewed the patient's lab results. Lab results narrative: White blood cell count 9300, hemoglobin 11.1, platelets 470,000. Glucose 66. BUN 45 with creatinine 2.29, worse than comparison prior renal function studies 05/20/25. Serum CO2 less than 5, was 13 on 05/20/25. Sodium 133, potassium 4.6. Alkaline phosphatase slight elevation, other liver functions unremarkable. Cap gas pH 7.05, pCO2 not elevated. Ethanol, salicylate, acetaminophen levels negative. Urinalysis shows pyuria with many bacteria, urine culture requested. 05/27/25 02:35 05/27/25 02:35 Labs: Lab Results 05/27/25 05/27/25 05/27/25 Range/Units 01:25 02:35 03:31 WBC 9.3 (4.5-11.0) X10^3/uL RBC 3.28 L (4.0-5.2) X10^6/uL Hgb 11.1 L (12.0-16.0) g/dL Hct 33.5 L (36-46) % MCV 102.1 H D (80-100) fL MCH 33.9 (26-34) PG MCHC 33.2 (30-36) % RDW 23.0 H (11.6-14.8) % Plt Count 470 H (150-400) X10^3/uL Neut % (Auto) 49.6 L (50-75) % Lymph % (Auto) 43.3 H (25-40) % [place] % (Auto) 5.8 (3-14) % Eos % (Auto) 0.4 L (2-4) % Baso % (Auto) 0.9 (0-2) % Neut # (Auto) 4600 (6976-7062) /uL Lymph # (Auto) 4000 (2159-6151) /uL [place] # (Auto) 500 (0-900) /uL Eos # (Auto) 0 (0-450) /uL Baso # (Auto) 100 (0-100) /uL Platelet Estimate Increased on smear RBC Morphology See below Anisocytosis 3+ H Microcytosis 1+ H Macrocytosis 1+ H [place] Cells 2+ H Capillary pH 7.05 L* (7.32-7.43) Capillary pCO2 13.8 L* (27-40) mmHg Capillary pO2 55.2 (40-70) mmHg Capillary HCO3 3.8 L (19-25) mEq/L Capillary Base Excess -24.6 L (-2-3) mmol/L Capillary O2 Sat 75.1 L (95-99) % Sodium 133 L (137-145) mmol/L Potassium 4.6 (3.4-5.1) mmol/L Chloride 110 H (98-107) mmol/L Carbon Dioxide < 5 L* (22-32) mmol/L BUN 45 H (7-17) mg/dL Creatinine 2.29 H (0.52-1.04) mg/dL Estimated GFR 22 L (>60) mL/min BUN/Creatinine Ratio 19.7 (6-22) Glucose 66 L (70-99) mg/dL Lactate (0.7-2.1) mmol/L Calcium 8.6 (8.4-10.2) mg/dL Total Bilirubin 0.4 (0.2-1.3) mg/dL AST 46 H (14-36) IU/L ALT 31 (<35) IU/L Alkaline Phosphatase 193 H (38-126) U/L Total Protein 8.1 (6.3-8.2) g/dL Albumin 4.4 (3.5-5.0) g/dL Globulin 3.7 (1.7-4.1) g/dL Albumin/Globulin Ratio 1.2 (1.0-2.8) Lipase 92 (23-300) U/L Urine Color Yellow Urine Appearance Sl cloudy Urine pH 5.5 (4.5-8.0) Ur Specific [place] 1.010 (1.000-1.035) Urine Protein 1+ H (Negative) Urine Glucose (UA) Negative (Negative) g/dL Urine Ketones Trace H (NEGATIVE) Urine Occult Blood Trace-intact (Negative) Urine Nitrate Negative (Negative) Urine Bilirubin Negative (NEGATIVE) Urine Urobilinogen 0.2 (0.2) E.U./dL Ur Leukocyte Esterase 1+ H (NEGATIVE) Urine RBC 0-1/hpf (0-5/HPF) Urine WBC 10-30/hpf H (0-5/HPF) Ur Squamous Epith Cells 0-1 /hpf (0-5/HPF) Urine Bacteria Many (>30) H (None) Ur Culture Indicated? Specimen cultured Vol Urine Centrifuged 10ml (spun) Salicylates (<20) mg/dL Acetaminophen (10-30) ug/mL Ethyl Alcohol (<10) mg/dL 05/27/25 Range/Units 04:02 WBC (4.5-11.0) X10^3/uL RBC (4.0-5.2) X10^6/uL Hgb (12.0-16.0) g/dL Hct (36-46) % MCV (80-100) fL MCH (26-34) PG MCHC (30-36) % RDW (11.6-14.8) % Plt Count (150-400) X10^3/uL Neut % (Auto) (50-75) % Lymph % (Auto) (25-40) % [place] % (Auto) (3-14) % Eos % (Auto) (2-4) % Baso % (Auto) (0-2) % Neut # (Auto) (5260-4910) /uL Lymph # (Auto) (6073-0893) /uL [place] # (Auto) (0-900) /uL Eos # (Auto) (0-450) /uL Baso # (Auto) (0-100) /uL Platelet Estimate RBC Morphology Anisocytosis Microcytosis Macrocytosis [place] Cells Capillary pH (7.32-7.43) Capillary pCO2 (27-40) mmHg Capillary pO2 (40-70) mmHg Capillary HCO3 (19-25) mEq/L Capillary Base Excess (-2-3) mmol/L Capillary O2 Sat (95-99) % Sodium (137-145) mmol/L Potassium (3.4-5.1) mmol/L Chloride (98-107) mmol/L Carbon Dioxide (22-32) mmol/L BUN (7-17) mg/dL Creatinine (0.52-1.04) mg/dL Estimated GFR (>60) mL/min BUN/Creatinine Ratio (6-22) Glucose (70-99) mg/dL Lactate 0.9 (0.7-2.1) mmol/L Calcium (8.4-10.2) mg/dL Total Bilirubin (0.2-1.3) mg/dL AST (14-36) IU/L ALT (<35) IU/L Alkaline Phosphatase (38-126) U/L Total Protein (6.3-8.2) g/dL Albumin (3.5-5.0) g/dL Globulin (1.7-4.1) g/dL Albumin/Globulin Ratio (1.0-2.8) Lipase (23-300) U/L Urine Color Urine Appearance Urine pH (4.5-8.0) Ur Specific [place] (1.000-1.035) Urine Protein (Negative) Urine Glucose (UA) (Negative) g/dL Urine Ketones (NEGATIVE) Urine Occult Blood (Negative) Urine Nitrate (Negative) Urine Bilirubin (NEGATIVE) Urine Urobilinogen (0.2) E.U./dL Ur Leukocyte Esterase (NEGATIVE) Urine RBC (0-5/HPF) Urine WBC (0-5/HPF) Ur Squamous Epith Cells (0-5/HPF) Urine Bacteria (None) Ur Culture Indicated? Vol Urine Centrifuged Salicylates < 1.0 (<20) mg/dL Acetaminophen 20 (10-30) ug/mL Ethyl Alcohol < 10 (<10) mg/dL MDM Narrative Medical decision making narrative: 74-year-old female with history of recurrent UTI, on Vantin/cefpodoxime oral antibiotic now day 7, denies missed doses, history of kidney stones, with complaint of increasing right-sided flank pain. Afebrile, sirs screen negative. Urinalysis pending. Labs pending. Patient requesting pain medications. IV Dilaudid. Patient had prescription oxycodone on prior visit here 05/20/2025. History of gastric ulcers, we will avoid Toradol for now. DDx consider ureteral stone, pyelonephritis, complicated UTI, renal abscess, colitis, diverticulitis, other. Labs pending. Lab data: White blood cell count 9300, hemoglobin 11.1, platelets 470,000. Glucose 66. BUN 45 with creatinine 2.29, worse than comparison prior renal function studies. Serum CO2 less than 5. Sodium 133, potassium 4.6. Alkaline phosphatase slight elevation, other liver functions unremarkable. Cap gas pH 7.05, pCO2 not elevated. Ethanol, salicylate, acetaminophen levels negative. Urinalysis shows pyuria with many bacteria, urine culture requested. Urine culture requested. Blood culture requested. IV ceftriaxone. CT abdomen and pelvis ordered. CT abdomen and pelvis noncontrast. Impression: ?No evidence of colitis diverticulitis bowel obstruction obstructive uropathy. Atrophy of the left kidney with nonobstructing left intrarenal calculi.? See radiology report Serum CO2 diminished, pH 7.05, ethanol acetaminophen salicylate levels were added and negative. Blood cultures requested. IV fluid bolus. IV ceftriaxone given for possible UTI/urosepsis. No obstructive uropathy or renal abscess or other acute changes on imaging. Sitter admission. FE noted. We will contact hospitalist. Records review, microbiology: Urine culture from visit 06/09/25, greater than 100,000 colonies of Citrobacter species, no sensitivities apparently done. 0500, case discussed with hospitalist Dr. Valdes who accepts patient for admission, requests additional IV abx coverage, ceftriaxone given, will add meropenem dose. Meropneme IV dose ordered. Admit as planned. Critical Care Time Critical Care Time Critical Care Time: Yes Total Critical Care Time: 35 Attestation: The high probability of a clinically significant, sudden or life threatening deterioration of the [renal, abdominopelvic, gastrointestinal, metabolic, cardiopulmonary] systems required my full and direct attention, intervention and personal management. The aggregate critical care time was [] minutes. This time is in addition to time spent performing reported procedures but includes the following: [x] Data Review and interpretation [x] Patient assessment and monitoring of vital signs [x] Documentation [x] Medication orders and management Discharge Plan Departure Patient Disposition: Admitted As Inpatient Clinical Impression: Urinary tract infection, Metabolic acidosis, FE (acute kidney injury) Admit Date/Time: 05/27/25 04:59 Admit Provider: Jaziel Valdes
[2025-05-27 01:47] LABS: pH Urine UA 5.5 (4.5-8.0)
[2025-05-27 01:48] LABS: Culture Indicated Urine Specimen Cultured
[2025-05-27 02:53] LABS: Add Manual Diff / Slide Review NO; Hematocrit 33.5 % (36-46); Hemoglobin 11.1 g/dL (12.0-16.0); Lymphocytes Absolute Auto 4000 /uL (1100-4500); Mean Corpuscular HGB Conc 33.2 % (30-36); Mean Corpuscular Hemoglobin 33.9 PG (26-34); Mean Corpuscular Volume 102.1 fL (80-100); Platelet Count 470 X10^3/uL (150-400)
[2025-05-27 03:03] LABS: Alanine Aminotransferase 31 IU/L (<35); Albumin 4.4 g/dL (3.5-5.0); Albumin Globulin Ratio 1.2 (1.0-2.8); Alkaline Phosphatase 193 U/L (38-126); Blood Urea Nitrogen 45 mg/dL (7-17); Calcium 8.6 mg/dL (8.4-10.2); Chloride 110 mmol/L (98-107); Estimated Glomerular Filt Rate 22 mL/min (>60); Globulin 3.7 g/dL (1.7-4.1); Glucose 66 mg/dL (70-99); HEMOLYSIS < 15 (0-50); Lipase 92 U/L (23-300); Potassium 4.6 mmol/L (3.4-5.1); Sodium 133 mmol/L (137-145); Total Protein 8.1 g/dL (6.3-8.2)
[2025-05-27 03:09] LABS: Carbon Dioxide < 5 mmol/L (22-32)
--- NOTE | 2025-05-27 03:11 | DI.CT.S_ITS ---
PROCEDURE: CT ABDOMEN PELVIS WO CON INDICATIONS: abd pain TECHNIQUE: Axial sections were acquired from the lung bases to the pubic symphysis. Coronal and sagittal reformats were performed. For radiation dose reduction, the following was used: automated exposure control, adjustment of mA and/or kV according to patient size. COMPARISON: [facility], CT, CT KIDNEY URETER BLADDER (KUB), 05/20/2025, 11:19. FINDINGS: Image quality: Diagnostic. Lower Chest: No significant findings. URINARY: Right Kidney: No stones or hydronephrosis. Right Ureter: No hydroureter. Left Kidney: Atrophic left kidney with multiple nonobstructing left renal calculi. No hydronephrosis. Left Ureter: No hydroureter. Bladder: Normal wall thickness. No stones. ABDOMEN: Liver: No contour-deforming solid mass. Gallbladder: Gallbladder is surgically absent. Biliary ducts: No biliary dilation. Pancreas: No ductal dilation. Spleen: Size is within normal limits. Adrenal Glands: No adrenal nodules. Stomach and Bowel: Normal colonic caliber, without significant wall thickening. Moderate fecal stasis throughout the colon. Peritoneum: No abnormal intraperitoneal fluid. No free air. Ventral Wall: No hernia. Abdominal Nodes: No enlarged retroperitoneal or mesenteric lymph nodes. Vessels: Aorta and inferior vena cava are normal in size. PELVIS: Pelvic Organs: Unremarkable. Pelvic Nodes: Unremarkable. Miscellaneous: No inguinal hernias are seen. Bones: No aggressive appearing bony lesions. Intramedullary medardo in left femoral shaft. Chronic appearing compression deformities involving T10, T12, L1 through L4 vertebral bodies with prior kyphoplasty. IMPRESSION: 1. Nonobstructing stones seen in atrophic left kidney. No obstructing stones or hydronephrosis. No hydroureter. Normal appearing urinary bladder. 2. No bowel obstruction or abnormal bowel wall thickening. Moderate to severe constipation. No free fluid or free air. 3. Other chronic findings as above. Dictated by: Jon Braxton M.D. on 05/27/2025 at 8:10 Approved by: Jon Braxton M.D. on 05/27/2025 at 8:19
[2025-05-27] MEDS: SODIUM CHLORIDE 0.9% 1,000 ML 1000 ML IV (03:26)
[2025-05-27 03:34] LABS: HCO3 Capillary Blood 3.8 mEq/L (19-25); Oxygen Sat Capillary Blood 75.1 % (95-99); PCO2 Capillary Blood 13.8 mmHg (27-40); PO2 Capillary Blood 55.2 mmHg (40-70); pH Capillary Blood 7.05 (7.32-7.43)
--- NOTE | 2025-05-27 03:38 | PC.NURSE ---
Pt to imaging via ED stretcher with technician support association
[2025-05-27 03:51] LABS: Anisocytosis 3+; Burr Cells 2+; Macrocytosis 1+; Microcytosis 1+
[2025-05-27 04:20] LABS: Acetaminophen 20 ug/mL (10-30); Ethanol (ETOH) < 10 mg/dL (<10); Lactate (Lactic Acid) 0.9 mmol/L (0.7-2.1); Salicylate < 1.0 mg/dL (<20)
--- NOTE | 2025-05-27 06:06 | P.HP_ITS ---
History of Present Illness History of Present Illness Date Patient Seen: 05/27/25 Time Patient Seen: 06:06 Chief complaint: UTI Narrative: 74-year-old female with past medical history of nephrolithiasis, hyperlipidemia, GERD and hypertension presents with abdominal pain. Per the patient's report, the patient recently was seen in the ER on May 20, 2025 for UTI. The patient was deemed stable and was discharged on cefpodoxime. The patient states that she has been taking her antibiotic as instructed as outpatient. However the patient's continued to have some right sided abdominal pain which became severe today. The patient denies any fever, chills, nausea, vomiting, diarrhea, chest pain or shortness of breath. The patient also denies any dysuria or GI bleed. The patient states that she was given oxycodone initially but ran out of this medication. In the emergency room, the patient remained hemodynamically stable. WBC and serum was normal. However the patient has a bicarb less than 5 and a creatinine of 2.29. Glucose was 66. UA demonstrated again UTI. The patient had a CT scan without contrast that shows nonobstructive renal stones. The patient was given initially ceftriaxone but changed to meropenem to broaden the spectrum of antibiotic coverage. Of note lactic acid is normal. VBG shows signs of metabolic acidosis. Glucose again and shows no sign of hyperglycemia or DKA. Patient denies any and gesturing of toxin. Salicylate and alcohol level were negative. IV fluid was given. FORMERLY [facility], [facility] Medical History Family history of colon cancer in father Closed fracture of left distal femur Immunodeficiency due to conditions classified elsewhere Age-related osteoporosis without current pathological fracture History of vertebral compression fracture GERD without esophagitis Primary osteoarthritis involving multiple joints Chronic low back pain Stage 3b chronic kidney disease (CKD) Mixed hyperlipidemia Essential hypertension Cerebrovascular disease Coronary artery disease Recurrent UTI Displaced comminuted fracture of shaft of tibia Septic shock Left rib fracture Closed left clavicular fracture Iron (Fe) deficiency anemia Nephrolithiasis Peptic ulcer disease History of osteomyelitis Fracture, tibia Left foot drop Numbness and tingling HLD (hyperlipidemia) C. difficile colitis Colitis Anxiety Insomnia Arthritis DJD (degenerative joint disease) Depression Fibromyalgia Migraines Multiple fractures Osteoporosis Radius fracture (08/30/17) Neuropathy History of recurrent UTIs Renal disease Hypertension Chronic pain GI bleeding Surgical History Hx of kyphoplasty (07/28/19) Hx of kyphoplasty (04/28/19) Hx of kyphoplasty (~2013) Hx of elbow surgery Hx of appendectomy Hx of cholecystectomy Status post epidural steroid injection (03/25/19) H/O: hysterectomy Hx of tonsillectomy History of surgery Family History Mother No known health problems COPD (chronic obstructive pulmonary disease) Father No known health problems Social History household members: significant other Smoking Status: Former smoker alcohol intake: current Meds Home Medications and Allergies Home Medications ?Medication ?Instructions ?Recorded ?Confirmed ?Type food supplemt, lactose-reduced 1 ea PO TID #5,688 mL 0 11/20/23 05/06/25 Rx 0.05 gram-1.5 kcal/mL oral liquid (Ensure Plus) aspirin 81 mg tablet,delayed 81 mg PO DAILY 04/13/24 0 05/06/25 History release (Adult Aspirin Regimen) diclofenac sodium 1 % topical gel 2 g topical 4XD PRN pain #100 grams 07/27/24 05/06/25 Rx ferrous sulfate 325 mg (65 mg 325 mg PO DAILY #30 tabs 08/28/24 05/06/25 Rx iron) tablet (FeroSul) trazodone 50 mg tablet See Rx Instructions PO BEDTI ME PRN 10/06/24 05/06/25 Rx insomnia #60 tabs thiamine mononitrate (vit B1) 100 100 mg PO DAILY 10/1705/06/25 History mg tablet metoprolol tartrate 25 mg tablet 25 mg PO BID #180 tab s 02/03/25 05/06/25 Rx lidocaine 5 % topical patch 1 patch topical DAILY #8 e a 03/22/25 05/06/25 Rx tramadol 50 mg tablet 50 mg PO TID PRN Pain, Moder ate 03/23/25 05/06/25 Rx (4-6) #15 tabs cyclobenzaprine 10 mg tablet 10 mg PO Q8HR PRN Spasms #10 tabs 04/14/25 05/06/25 Rx pantoprazole 40 mg tablet,delayed 40 mg PO DAILY #30 t abs 04/14/25 05/06/25 Rx release atorvastatin 40 mg tablet 40 mg PO DAILY 05/06/2504/19 History carisoprodol 350 mg tablet 350 mg PO 4XD 05/06/2504/19 History oxycodone 5 mg capsule 5 mg PO Q8H PRN pain #15 cap s 05/07/25 Rx cefpodoxime 100 mg tablet 100 mg PO BID 10 days #20 ta bs 05/20/25 Rx oxycodone 5 mg tablet 5 mg PO Q8H PRN pain #6 tabs 05/20/25 Rx Allergies Allergy/AdvReac Type Severity Reaction Status Date / Time furosemide (From Lasix) Allergy Intermediate Rash Verified 05/26/25 20:29 amitriptyline (AMITRIPTYLINE) AdvReac Intermediate Confusion Verified 05/26/25 20:29 duloxetine AdvReac Intermediate GI distress Verified 05/26/25 20:29 trazodone AdvReac Intermediate Verified 05/26/25 20:29 cyclobenzaprine AdvReac Dizziness Verified 05/26/25 20:29 Review of Systems Review of Systems ROS: Yes All systems reviewed with the patient and are negative except as otherwise documented Exam Vital Signs (past 8 hours): - 05/26/25 23:30 05/26/25 23:30 05/27/25 00:00 Pulse Rate 95 H Respiratory Rate Blood Pressure 121/56 L 118/58 L Pulse Oximetry 100 Oxygen Delivery Method 05/27/25 00:00 05/27/25 00:30 05/27/25 00:31 Pulse Rate 95 H 96 H Respiratory Rate 22 18 Blood Pressure 137/65 Pulse Oximetry 98 98 Oxygen Delivery Method Room Air Room Air 05/27/25 00:31 05/27/25 00:47 05/27/25 00:47 Pulse Rate 99 H 100 H Respiratory Rate Blood Pressure 146/65 H Pulse Oximetry 98 99 Oxygen Delivery Method Room Air Room Air 05/27/25 01:00 05/27/25 01:00 05/27/25 01:30 Pulse Rate 98 H Respiratory Rate 20 Blood Pressure 126/57 L 134/64 Pulse Oximetry 99 Oxygen Delivery Method Room Air 05/27/25 01:30 05/27/25 02:00 05/27/25 02:00 Pulse Rate 99 H 102 H Respiratory Rate 24 Blood Pressure 142/65 H Pulse Oximetry 98 100 Oxygen Delivery Method Room Air Room Air 05/27/25 02:30 05/27/25 02:40 05/27/25 02:40 Pulse Rate 104 H 104 H Respiratory Rate Blood Pressure 132/57 L Pulse Oximetry 99 100 Oxygen Delivery Method Room Air 05/27/25 03:00 05/27/25 03:00 05/27/25 03:30 Pulse Rate 104 H 105 H Respiratory Rate 23 18 Blood Pressure 156/67 H Pulse Oximetry 100 100 Oxygen Delivery Method Room Air Room Air 05/27/25 03:31 05/27/25 03:31 05/27/25 03:55 Pulse Rate 104 H Respiratory Rate Blood Pressure 128/59 L 137/64 Pulse Oximetry 100 Oxygen Delivery Method Room Air 05/27/25 03:55 05/27/25 04:00 05/27/25 04:00 Pulse Rate 106 H 107 H Respiratory Rate 19 Blood Pressure 124/59 L Pulse Oximetry 94 100 Oxygen Delivery Method Room Air Room Air 05/27/25 04:30 05/27/25 04:33 05/27/25 04:33 Pulse Rate 113 H 112 H Respiratory Rate Blood Pressure 157/67 H Pulse Oximetry 98 100 Oxygen Delivery Method Room Air Room Air 05/27/25 05:00 05/27/25 05:00 05/27/25 05:30 Pulse Rate 109 H 112 H Respiratory Rate 18 Blood Pressure 157/67 H Pulse Oximetry 100 100 Oxygen Delivery Method Room Air 05/27/25 05:32 05/27/25 05:32 Pulse Rate 120 H Respiratory Rate Blood Pressure 140/63 Pulse Oximetry 100 Oxygen Delivery Method Oxygen Delivery Method Room Air Narrative Exam Narrative: Physical Exam: GENERAL: The patient is not in any acute distressed. Awake and alert. HEENT: Nonicteric sclerae, PERRLA, EOMI. Oropharynx clear. Moist mucous membranes. Conjunctivae appear well perfused. HEART: Regular rate and rhythm without murmurs. No lower extremities edema. LUNGS: Clear to auscultation bilaterally. No wheezing, crackles or rhonchi ABDOMEN: Soft, positive bowel sounds, nontender. SKIN: No rash, no excessive bruising, petechiae, or purpura. NEUROLOGIC: AxO x 3. Cranial nerves II-XII intact without motor/sensory deficit. Objective Labs 05/27/25 02:35 05/27/25 02:35 Labs: Laboratory Results - last 24 hr 05/27/25 05/27/25 05/27/25 01:25 02:35 03:31 WBC 9.3 RBC 3.28 L Hgb 11.1 L Hct 33.5 L MCV 102.1 H D MCH 33.9 MCHC 33.2 RDW 23.0 H Plt Count 470 H Neut % (Auto) 49.6 L Lymph % (Auto) 43.3 H [place] % (Auto) 5.8 Eos % (Auto) 0.4 L Baso % (Auto) 0.9 Neut # (Auto) 4600 Lymph # (Auto) 4000 [place] # (Auto) 500 Eos # (Auto) 0 Baso # (Auto) 100 Platelet Estimate Increased on smear RBC Morphology See below Anisocytosis 3+ H Microcytosis 1+ H Macrocytosis 1+ H [place] Cells 2+ H Capillary pH 7.05 L* Capillary pCO2 13.8 L* Capillary pO2 55.2 Capillary HCO3 3.8 L Capillary Base Excess -24.6 L Capillary O2 Sat 75.1 L Sodium 133 L Potassium 4.6 Chloride 110 H Carbon Dioxide < 5 L* BUN 45 H Creatinine 2.29 H Estimated GFR 22 L BUN/Creatinine Ratio 19.7 Glucose 66 L Lactate Calcium 8.6 Total Bilirubin 0.4 AST 46 H ALT 31 Alkaline Phosphatase 193 H Total Protein 8.1 Albumin 4.4 Globulin 3.7 Albumin/Globulin Ratio 1.2 Lipase 92 Urine Color Yellow Urine Appearance Sl cloudy Urine pH 5.5 Ur Specific [place] 1.010 Urine Protein 1+ H Urine Glucose (UA) Negative Urine Ketones Trace H Urine Occult Blood Trace-intact Urine Nitrate Negative Urine Bilirubin Negative Urine Urobilinogen 0.2 Ur Leukocyte Esterase 1+ H Urine RBC 0-1/hpf Urine WBC 10-30/hpf H Ur Squamous Epith Cells 0-1 /hpf Urine Bacteria Many (>30) H Ur Culture Indicated? Specimen cultured Vol Urine Centrifuged 10ml (spun) Salicylates Acetaminophen Ethyl Alcohol 05/27/25 04:02 WBC RBC Hgb Hct MCV MCH MCHC RDW Plt Count Neut % (Auto) Lymph % (Auto) [place] % (Auto) Eos % (Auto) Baso % (Auto) Neut # (Auto) Lymph # (Auto) [place] # (Auto) Eos # (Auto) Baso # (Auto) Platelet Estimate RBC Morphology Anisocytosis Microcytosis Macrocytosis [place] Cells Capillary pH Capillary pCO2 Capillary pO2 Capillary HCO3 Capillary Base Excess Capillary O2 Sat Sodium Potassium Chloride Carbon Dioxide BUN Creatinine Estimated GFR BUN/Creatinine Ratio Glucose Lactate 0.9 Calcium Total Bilirubin AST ALT Alkaline Phosphatase Total Protein Albumin Globulin Albumin/Globulin Ratio Lipase Urine Color Urine Appearance Urine pH Ur Specific [place] Urine Protein Urine Glucose (UA) Urine Ketones Urine Occult Blood Urine Nitrate Urine Bilirubin Urine Urobilinogen Ur Leukocyte Esterase Urine RBC Urine WBC Ur Squamous Epith Cells Urine Bacteria Ur Culture Indicated? Vol Urine Centrifuged Salicylates < 1.0 Acetaminophen 20 Ethyl Alcohol < 10 Assessment & Plan Assessment & Plan narrative: UTI. Admit the patient to medical inpatient. Of note will give broad-spectrum antibiotic meropenem for now and follow urine culture as patient failed outpatient cephalosporin orally. Patient is not septic with normal lactic acid. Patient remained hemodynamically stable. Follow-up urine culture and de- escalate antibiotic accordingly. Metabolic acidosis. Unclear etiology. Lactic acid normal. No sign of DKA. Lab not low with ingestion. Alcohol level and salicylate and Tylenol level are negative. IV fluid and recheck BMP. Dehydration. IV fluid. FE. Creatinine 2.2. IV fluid and monitor renal function. Likely due to dehydration and UTI. Hyperlipidemia. Resume home statin. GERD. Resume home PPI. Hypertension. Monitor blood pressure and treat accordingly. DVT prophylaxis heparin subcu. CODE STATUS full code. Disposition likely home in 2 days. - As the provider of this telehealth evaluation, requested by the patient's evaluating physician, I attest that I introduced myself to the patient, provided my credentials and determined that telemedicine via a real-time, 2 way interactive audio and video platform is an appropriate and effective means of providing this service. - I reviewed the patient's chart and had a discussion with the member of the patient's treatment team. - The patient and I mutually agreed with continuation of this evaluation via telemedicine. The patient consented for the telemedicine evaluation. - This virtual encounter was taken place from [place] by Dr. Jaziel Valdes. The patient was evaluated at [facility]. The encounter was approximately 35 minutes. The nurse was present during the entire time of the encounter and was able assists with the stethoscope to listen to the patients. Time-Based Coding :: [TOTAL MINUTES] spent with patient and on the chart (including review of chart, obtaining history, exam, reviewing outside data, placing orders, documenting exam and treatment plan, and counseling patient) on [DATE].
[2025-05-27] MEDS: SODIUM CHLORIDE 0.9% 1,000 ML 100 ML IV (06:42)
[2025-05-27] MEDS: MEROPENEM 500 MG in SODIUM CHLORIDE 0.9% 100 ML 200 MG IV (06:46)
--- NOTE | 2025-05-27 07:34 | PM.HP.1 ---
History of Present Illness History of Present Illness Date Patient Seen: 05/27/25 Chief complaint: UTI Narrative: From night doctor: 74-year-old female with past medical history of nephrolithiasis, hyperlipidemia, GERD and hypertension presents with abdominal pain. Per the patient's report, the patient recently was seen in the ER on May 20, 2025 for UTI. The patient was deemed stable and was discharged on cefpodoxime. The patient states that she has been taking her antibiotic as instructed as outpatient. However the patient's continued to have some right sided abdominal pain which became severe today. The patient denies any fever, chills, nausea, vomiting, diarrhea, chest pain or shortness of breath. The patient also denies any dysuria or GI bleed. The patient states that she was given oxycodone initially but ran out of this medication. In the emergency room, the patient remained hemodynamically stable. WBC and serum was normal. However the patient has a bicarb less than 5 and a creatinine of 2.29. Glucose was 66. UA demonstrated again UTI. The patient had a CT scan without contrast that shows nonobstructive renal stones. The patient was given initially ceftriaxone but changed to meropenem to broaden the spectrum of antibiotic coverage. Of note lactic acid is normal. VBG shows signs of metabolic acidosis. Glucose again and shows no sign of hyperglycemia or DKA. Patient denies any and gesturing of toxin. Salicylate and alcohol level were negative. IV fluid was given. S: She has right kidney pain and dysuria. She feels weak. ROS: All else reviewed and otherwise unremarkable except as noted in the history and physical. O: NAD, alert and oriented, fluent speech, calm. Normocephalic skull, EOMI, anicteric sclera, symmetric pupils. Oropharynx unremarkable, no droop. Neck supple, midline trachea, no adenopathy. Lungs clear, normal rate and effort. Heart regular, no murmur gallop or rub. Abdomen is soft, non distended and non tender. Extremities are free of edema. Skin is free of rash or lesions. Joints are not swollen or deformed. Judgment appears to be normal. IMAGING: CTAP: 1. Nonobstructing stones seen in atrophic left kidney. No obstructing stones or hydronephrosis. No hydroureter. Normal appearing urinary bladder. 2. No bowel obstruction or abnormal bowel wall thickening. Moderate to severe constipation. No free fluid or free air. 3. Other chronic findings as above. Recent ECHO: The left ventricular cavity is small. The ejection fraction is estimated to be 70-75%. Diastolic function is indeterminate. The right ventricle is normal in size and function. There is mild mitral regurgitation. Pulmonary artery pressures cannot be estimated because of the lack of a measurable TR jet velocity but the IVC suggests a CVP of around 3 mmHg. There is significant thickening of the interatrial septum the pattern of which appears most consistent with lipomatous hypertrophy which is a normal variant. This was also present on the prior study 09/20/2022 however the superior portion of the thickening does appear increased compared to prior. A myxoma cannot be ruled out. A/P: 1. UTI. Admit the patient to medical inpatient. Of note will give broad-spectrum antibiotic meropenem for now and follow urine culture as patient failed outpatient cephalosporin orally. Patient is not septic with normal lactic acid. Patient remained hemodynamically stable. Follow-up urine culture and de-escalate antibiotic accordingly. 2. Metabolic acidosis. Unclear etiology. Lactic acid normal. No sign of DKA. Lab not low with ingestion. Alcohol level and salicylate and Tylenol level are negative. IV fluid and recheck BMP. 3. . IV fluid. 4. FE. Creatinine 2.2. IV fluid and monitor renal function. Likely due to dehydration and UTI. 5. Hyperlipidemia. Resume home statin. 6. GERD. Resume home PPI. 7. Hypertension. Monitor blood pressure and treat accordingly. PLAN: -Continue Abx and follow Cx. -Pain control. DVT prophylaxis heparin subcu. CODE STATUS full code. Disposition likely home in 2 days. [facility] Medical History Family history of colon cancer in father Closed fracture of left distal femur Immunodeficiency due to conditions classified elsewhere Age-related osteoporosis without current pathological fracture History of vertebral compression fracture GERD without esophagitis Primary osteoarthritis involving multiple joints Chronic low back pain Stage 3b chronic kidney disease (CKD) Mixed hyperlipidemia Essential hypertension Cerebrovascular disease Coronary artery disease Recurrent UTI Displaced comminuted fracture of shaft of tibia Septic shock Left rib fracture Closed left clavicular fracture Iron (Fe) deficiency anemia Nephrolithiasis Peptic ulcer disease History of osteomyelitis Fracture, tibia Left foot drop Numbness and tingling HLD (hyperlipidemia) C. difficile colitis Colitis Anxiety Insomnia Arthritis DJD (degenerative joint disease) Depression Fibromyalgia Migraines Multiple fractures Osteoporosis Radius fracture (08/30/17) Neuropathy History of recurrent UTIs Renal disease Hypertension Chronic pain GI bleeding Surgical History Hx of kyphoplasty (07/28/19) Hx of kyphoplasty (04/28/19) Hx of kyphoplasty (~2013) Hx of elbow surgery Hx of appendectomy Hx of cholecystectomy Status post epidural steroid injection (03/25/19) H/O: hysterectomy Hx of tonsillectomy History of surgery Family History Mother No known health problems COPD (chronic obstructive pulmonary disease) Father No known health problems Social History household members: family Smoking Status: Former smoker alcohol intake: current Meds Home Medications and Allergies Home Medications ?Medication ?Instructions ?Recorded ?Confirmed ?Type food supplemt, lactose-reduced 1 ea PO TID #5,688 mL 11/20/23 05/06/25 Rx 0.05 gram-1.5 kcal/mL oral liquid (Ensure Plus) aspirin 81 mg tablet,delayed 81 mg PO DAILY 04/13/24 05/06/25 History release (Adult Aspirin Regimen) diclofenac sodium 1 % topical gel 2 g topical 4XD PRN pain #100 grams 07/27/24 05/06/25 Rx ferrous sulfate 325 mg (65 mg 325 mg PO DAILY #30 tabs 08/28/24 05/06/25 Rx iron) tablet (FeroSul) trazodone 50 mg tablet See Rx Instructions PO BEDTIME PRN 10/06/24 05/06/25 Rx insomnia #60 tabs thiamine mononitrate (vit B1) 100 100 mg PO DAILY 11/03/24 05/06/25 History mg tablet metoprolol tartrate 25 mg tablet 25 mg PO BID #180 tabs 02/03/25 05/06/25 Rx lidocaine 5 % topical patch 1 patch topical DAILY #8 ea 03/22/25 05/06/25 Rx tramadol 50 mg tablet 50 mg PO TID PRN Pain, Moderate 03/23/25 05/06/25 Rx (4-6) #15 tabs cyclobenzaprine 10 mg tablet 10 mg PO Q8HR PRN Spasms #10 tabs 04/14/25 05/06/25 Rx pantoprazole 40 mg tablet,delayed 40 mg PO DAILY #30 tabs 04/14/25 05/06/25 Rx release atorvastatin 40 mg tablet 40 mg PO DAILY 05/06/25 05/06/25 History carisoprodol 350 mg tablet 350 mg PO 4XD 05/06/25 05/06/25 History oxycodone 5 mg capsule 5 mg PO Q8H PRN pain #15 caps 05/07/25 Rx cefpodoxime 100 mg tablet 100 mg PO BID 10 days #20 tabs 05/20/25 Rx oxycodone 5 mg tablet 5 mg PO Q8H PRN pain #6 tabs 05/20/25 Rx Allergies Allergy/AdvReac Type Severity Reaction Status Date / Time furosemide (From Lasix) Allergy Intermediate Rash Verified 05/26/25 20:29 amitriptyline (AMITRIPTYLINE) AdvReac Intermediate Confusion Verified 05/26/25 20:29 duloxetine AdvReac Intermediate GI distress Verified 05/26/25 20:29 trazodone AdvReac Intermediate Verified 05/26/25 20:29 cyclobenzaprine AdvReac Dizziness Verified 05/26/25 20:29 Exam Vital Signs (past 8 hours): - 05/27/25 00:00 05/27/25 00:00 05/27/25 00:30 Temperature Pulse Rate 95 H 96 H Respiratory Rate 22 18 Blood Pressure 118/58 L Pulse Oximetry 98 98 Oxygen Delivery Method Room Air Room Air Oxygen Flow Rate 05/27/25 00:31 05/27/25 00:31 05/27/25 00:47 Temperature Pulse Rate 99 H Respiratory Rate Blood Pressure 137/65 146/65 H Pulse Oximetry 98 Oxygen Delivery Method Room Air Oxygen Flow Rate 05/27/25 00:47 05/27/25 01:00 05/27/25 01:00 Temperature Pulse Rate 100 H 98 H Respiratory Rate 20 Blood Pressure 126/57 L Pulse Oximetry 99 99 Oxygen Delivery Method Room Air Room Air Oxygen Flow Rate 05/27/25 01:30 05/27/25 01:30 05/27/25 02:00 Temperature Pulse Rate 99 H 102 H Respiratory Rate 24 Blood Pressure 134/64 Pulse Oximetry 98 100 Oxygen Delivery Method Room Air Room Air Oxygen Flow Rate 05/27/25 02:00 05/27/25 02:30 05/27/25 02:40 Temperature Pulse Rate 104 H Respiratory Rate Blood Pressure 142/65 H 132/57 L Pulse Oximetry 99 Oxygen Delivery Method Room Air Oxygen Flow Rate 05/27/25 02:40 05/27/25 03:00 05/27/25 03:00 Temperature Pulse Rate 104 H 104 H Respiratory Rate 23 Blood Pressure 156/67 H Pulse Oximetry 100 100 Oxygen Delivery Method Room Air Oxygen Flow Rate 05/27/25 03:30 05/27/25 03:31 05/27/25 03:31 Temperature Pulse Rate 105 H 104 H Respiratory Rate 18 Blood Pressure 128/59 L Pulse Oximetry 100 100 Oxygen Delivery Method Room Air Room Air Oxygen Flow Rate 05/27/25 03:55 05/27/25 03:55 05/27/25 04:00 Temperature Pulse Rate 106 H Respiratory Rate 19 Blood Pressure 137/64 124/59 L Pulse Oximetry 94 Oxygen Delivery Method Room Air Oxygen Flow Rate 05/27/25 04:00 05/27/25 04:30 05/27/25 04:33 Temperature Pulse Rate 107 H 113 H 112 H Respiratory Rate Blood Pressure Pulse Oximetry 100 98 100 Oxygen Delivery Method Room Air Room Air Room Air Oxygen Flow Rate 05/27/25 04:33 05/27/25 05:00 05/27/25 05:00 Temperature Pulse Rate 109 H Respiratory Rate 18 Blood Pressure 157/67 H 157/67 H Pulse Oximetry 100 Oxygen Delivery Method Room Air Oxygen Flow Rate 05/27/25 05:30 05/27/25 05:32 05/27/25 05:32 Temperature Pulse Rate 112 H 120 H Respiratory Rate Blood Pressure 140/63 Pulse Oximetry 100 100 Oxygen Delivery Method Oxygen Flow Rate 05/27/25 06:00 Temperature 97.7 F Pulse Rate 114 H Respiratory Rate 16 Blood Pressure 119/51 L Pulse Oximetry 99 Oxygen Delivery Method Oxygen Flow Rate 0 Oxygen Delivery Method Room Air Oxygen Flow Rate 0 Objective Labs 05/27/25 02:35 05/27/25 02:35 Labs: Laboratory Results - last 24 hr 05/27/25 05/27/25 05/27/25 01:25 02:35 03:31 WBC 9.3 RBC 3.28 L Hgb 11.1 L Hct 33.5 L MCV 102.1 H D MCH 33.9 MCHC 33.2 RDW 23.0 H Plt Count 470 H Neut % (Auto) 49.6 L Lymph % (Auto) 43.3 H [place] % (Auto) 5.8 Eos % (Auto) 0.4 L Baso % (Auto) 0.9 Neut # (Auto) 4600 Lymph # (Auto) 4000 [place] # (Auto) 500 Eos # (Auto) 0 Baso # (Auto) 100 Platelet Estimate Increased on smear RBC Morphology See below Anisocytosis 3+ H Microcytosis 1+ H Macrocytosis 1+ H [place] Cells 2+ H Capillary pH 7.05 L* Capillary pCO2 13.8 L* Capillary pO2 55.2 Capillary HCO3 3.8 L Capillary Base Excess -24.6 L Capillary O2 Sat 75.1 L Sodium 133 L Potassium 4.6 Chloride 110 H Carbon Dioxide < 5 L* BUN 45 H Creatinine 2.29 H Estimated GFR 22 L BUN/Creatinine Ratio 19.7 Glucose 66 L POC Whole Bld Glucose Lactate Calcium 8.6 Total Bilirubin 0.4 AST 46 H ALT 31 Alkaline Phosphatase 193 H Total Protein 8.1 Albumin 4.4 Globulin 3.7 Albumin/Globulin Ratio 1.2 Lipase 92 Urine Color Yellow Urine Appearance Sl cloudy Urine pH 5.5 Ur Specific [place] 1.010 Urine Protein 1+ H Urine Glucose (UA) Negative Urine Ketones Trace H Urine Occult Blood Trace-intact Urine Nitrate Negative Urine Bilirubin Negative Urine Urobilinogen 0.2 Ur Leukocyte Esterase 1+ H Urine RBC 0-1/hpf Urine WBC 10-30/hpf H Ur Squamous Epith Cells 0-1 /hpf Urine Bacteria Many (>30) H Ur Culture Indicated? Specimen cultured Vol Urine Centrifuged 10ml (spun) Salicylates Acetaminophen Ethyl Alcohol 05/27/25 05/27/25 04:02 06:59 WBC RBC Hgb Hct MCV MCH MCHC RDW Plt Count Neut % (Auto) Lymph % (Auto) [place] % (Auto) Eos % (Auto) Baso % (Auto) Neut # (Auto) Lymph # (Auto) [place] # (Auto) Eos # (Auto) Baso # (Auto) Platelet Estimate RBC Morphology Anisocytosis Microcytosis Macrocytosis [place] Cells Capillary pH Capillary pCO2 Capillary pO2 Capillary HCO3 Capillary Base Excess Capillary O2 Sat Sodium Potassium Chloride Carbon Dioxide BUN Creatinine Estimated GFR BUN/Creatinine Ratio Glucose POC Whole Bld Glucose 73 Lactate 0.9 Calcium Total Bilirubin AST ALT Alkaline Phosphatase Total Protein Albumin Globulin Albumin/Globulin Ratio Lipase Urine Color Urine Appearance Urine pH Ur Specific [place] Urine Protein Urine Glucose (UA) Urine Ketones Urine Occult Blood Urine Nitrate Urine Bilirubin Urine Urobilinogen Ur Leukocyte Esterase Urine RBC Urine WBC Ur Squamous Epith Cells Urine Bacteria Ur Culture Indicated? Vol Urine Centrifuged Salicylates < 1.0 Acetaminophen 20 Ethyl Alcohol < 10 Assessment & Plan Time-Based Coding :: [TOTAL MINUTES] spent with patient and on the chart (including review of chart, obtaining history, exam, reviewing outside data, placing orders, documenting exam and treatment plan, and counseling patient) on [DATE]. Quality MIPS - Admit I confirm the patient?s Advance Care Plan is present, Code status is documented, Surrogate decision maker is in patient?s record [If Yes, STOP here]: Yes MIPS - Meds 'Current medications' to include all prescriptions, [id number] products, herbals, cannabis/cannabidiol products, and vitamin/mineral/dietary (nutritional) supplements. I have utilized all available resources to obtain, update, or review the patient?s current medications. [If Yes, STOP here]: Yes
[2025-05-27] MEDS: ATORVASTATIN 20 MG TABLET 40 MG PO (08:43)
[2025-05-27] MEDS: PANTOPRAZOLE DR 40 MG TABLET PO (08:43)
[2025-05-27] MEDS: HEPARIN 5,000 UNIT/ML VIAL 5000 UNIT SUBCUT ×2 (08:43→20:20)
[2025-05-27] MEDS: ASPIRIN EC 81 MG TABLET PO (08:43)
[2025-05-27] MEDS: METOPROLOL IR 25 MG TABLET PO ×2 (08:43→20:20)
--- NOTE | 2025-05-27 11:57 | CM.DANOTE ---
DCP Assessment note pt is a 74yo F admitted with UTI/FE. here for a day or so of IV abx and then switch to PO abx at dc. LUNCHROOM MONITOR reviewed EMR. this team is well acquainted with pt, see previous CM notes from previous admissions for more social hx information. LUNCHROOM MONITOR met with pt in room. pt confirms things at home are going well with [facility] 3 days/week and partner. confirms set up with PCP still. reports frustration she keeps getting UTIs. continues to deny wanting HH. reports not wanting to leave the hospital until new plan for recurrent UTIs is established. reports eager to go home when that happens. denies any specific DCP/CM needs from this LUNCHROOM MONITOR at this time. report partner can pick pt up ( consider medicaid transport as backup plan if needed) P: anticipate return home with partner/[facility] when stable and OP f/u. will continue to follow closely in case any barriers to safe dc home should arise JANET Chavez Discharge Planning/Care Management Advanced directive, confirm from FAMILY Start: 05/27/25 09:22 Freq: Q24H Status: Active Protocol: Document 05/27/25 09:22 CELINA (Rec: 05/27/25 09:22 CELINA [id number]) Advance Directive, confirm on record Time 09:22 Person contacted patient Copy received No CM Discharge Assessment Start: 05/27/25 05:09 Freq: Status: Active Protocol: Document 05/27/25 11:55 SL (Rec: 05/27/25 11:57 SL [id number]) Discharge Planning Assessment Assigned Discharge JANET Wynne Picture Copyist Provider Antonio Savage Insurance Medicaid,Medicare,[facility] DPOA/Assigned Chis, son/DPOA Designee Name Contact Information [phone] Advance Directives? Yes Advance Directives No on File History Provided By Patient,Medical Record Prior Living House Arrangements Household Members family Type of Relies on Others transporation used prior to admit Independent with ADL No 's Needs Assistance Meal Prep,Home Chores / Shopping With DME Already Rented / Wheelchair,FWW / Walker,Bedside Commode Owned Discharge Plan Home Transportation Significant Other, Patrick, or Caregiver, Raina can Arrangement transport at discharge. Patient reports she feels comfortable with getting into a private vehicle with assistance. Referrals Initiated None needed SNF/HH Preference denies HH at this time Whiteboard Updated Yes in Patient Room with name and ext. # of Payroll Administrative Assistant Review Status In Process Please Provide Date 05/27/25 Initial DC Assessment Was Performed Next Review Type Continued Stay Review
[2025-05-27] MEDS: SODIUM BICARB 8.4% VIAL 150 MEQ in DEXTROSE 5% WATER 1,000 ML IV ×2 (13:13→22:03)
[2025-05-27 17:21] LABS: Blood Urea Nitrogen 38 mg/dL (7-17); Calcium 7.9 mg/dL (8.4-10.2); Chloride 112 mmol/L (98-107); Estimated Glomerular Filt Rate 31 mL/min (>60); Glucose 130 mg/dL (70-99); HEMOLYSIS 16 (0-50); Potassium 4.0 mmol/L (3.4-5.1); Sodium 136 mmol/L (137-145)
[2025-05-27 17:25] LABS: Carbon Dioxide < 5 mmol/L (22-32)
[2025-05-28 03:43] VITALS: BP 147/61; PULSE 75; RESP 17; TEMP 35.8; O2SAT 100
[2025-05-28] MEDS: SODIUM BICARB 8.4% VIAL 150 MEQ in DEXTROSE 5% WATER 1,000 ML IV ×3 (05:50→22:50)
[2025-05-28 06:59] LABS: Hematocrit 27.1 % (36-46); Hemoglobin 9.6 g/dL (12.0-16.0); Lymphocytes Absolute Auto 500 /uL (1100-4500); Mean Corpuscular HGB Conc 35.2 % (30-36); Mean Corpuscular Hemoglobin 34.9 PG (26-34); Mean Corpuscular Volume 99.0 fL (80-100); Platelet Count 361 X10^3/uL (150-400)
[2025-05-28 07:04] LABS: Add Manual Diff / Slide Review SLIDE REVIEW
[2025-05-28 07:13] LABS: Blood Urea Nitrogen 32 mg/dL (7-17); Calcium 7.5 mg/dL (8.4-10.2); Carbon Dioxide 18 mmol/L (22-32); Chloride 107 mmol/L (98-107); Estimated Glomerular Filt Rate 59 mL/min (>60); Glucose 126 mg/dL (70-99); HEMOLYSIS < 15 (0-50); Sodium 138 mmol/L (137-145)
[2025-05-28 07:40] LABS: Potassium 2.7 mmol/L (3.4-5.1)
[2025-05-28 08:41] VITALS: BP 134/75; PULSE 85; RESP 14; TEMP 36.1; O2SAT 100
[2025-05-28 08:52] LABS: Anisocytosis 2+
[2025-05-28 08:54] LABS: Macrocytosis 1+; Poikilocytosis 1+
[2025-05-28] MEDS: ATORVASTATIN 20 MG TABLET 40 MG PO (09:19)
[2025-05-28] MEDS: METOPROLOL IR 25 MG TABLET PO ×2 (09:19→20:26)
[2025-05-28] MEDS: ASPIRIN EC 81 MG TABLET PO (09:19)
[2025-05-28] MEDS: POTASSIUM CHLORIDE IN WATER 10 MEQ/100 ML PIGGYBACK 100 MEQ IV ×6 (09:19→16:10)
[2025-05-28] MEDS: PANTOPRAZOLE DR 40 MG TABLET PO (09:20)
[2025-05-28] MEDS: HEPARIN 5,000 UNIT/ML VIAL 5000 UNIT SUBCUT ×2 (09:20→20:26)
--- NOTE | 2025-05-28 11:26 | CM.DPNOTE ---
DCP note CAN STERILIZER reviewed EMR per chart review/provider note, potassium dropped overnight. anticipate at least one more night potential dc tomorrow. no further CM needs identified at this time P: dc home with partner/[facility] tomorrow vs Saturday pending improvement in lab results. Will continue to follow closely for DCP coordination JANET Chavez
--- NOTE | 2025-05-28 11:49 | DIET.CONS ---
Dietary Consultation Note Admission Date: 05/27/2025 04:59 Assessment: 74 y F admitted for UTI. Dietitian screened for protein calorie malnutrition. This RD is familiar with pt. Met with pt at bedside. Reports eating well at home, continuously eating throughout the day e.g.. half a sandwich here, half a sandwich 2 hours later. Pt has eaten most of lunch tray in front of her. Noted weight loss between 1-4 kg in past 2 months per EMR. Brief NFPE done d/t pt eating - moderate loss in temples, moderate loss in buccal and orbital fat pads Ht: 154.94 cm Wt: 41.277 kg BMI: 17.2 UBW: 42.638 kg on 04/15/25, 03/16/25 45.677 kg, 48.988 kg on 02/14/25 (-16% weight loss in 4 months, severe) Last BM: () MNA: 10 Jaswant Score: 17 Diet: 05/27/25 Breakfast Heart Healthy Diet Diet Modifications: Labs: RBC 2.74 X10^6/uL (4.0-5.2) L 05/28/25 06:20 Hgb 9.6 g/dL (12.0-16.0) L 05/28/25 06:20 Hct 27.1 % (36-46) L 05/28/25 06:20 Creatinine 1.01 mg/dL (0.52-1.04) 05/28/25 06:20 Lactate 0.9 mmol/L (0.7-2.1) 05/27/25 04:02 Nutrition Diagnosis: Severe chronic Protein Calorie Malnutrition r/t hx of difficulty caring for self and periods of low appetite/nausea as evidenced by 16% weight loss within 4 months (severe), BMI chronically underweight for age (17), <50% of estimated energy needs for >6 months per diet recall (severe) Interventions: Open to Ensures this visit stating she does them at home sometimes, open to 1x/d. EER: 1500 kcals (35 kcals/kg) 50 g protein (1.2 g/kg per FE with severe malnutrition) Monitoring/Evaluations: PO intakes Electronically Signed by: Keysha Campos 05/28/25 11:49 Clinical Dietitian [address] [address]
--- NOTE | 2025-05-28 11:55 | P.PN_ITS ---
Subjective Subjective Interval history: Hospital course: 05/27: She was admitted with possible recurrent UTI and right flank pain. She was started on IV fluids and antibiotics. 05/28: Potassium of 2.7, IV potassium repletion started. S: Still has flank pain, but improving. No nausea, no dyspnea. O: NAD, alert and oriented. Fluent speech. Lungs are clear, normal rate and effort. Heart is regular, no murmur gallop or rub. Abdomen is soft, non distended. Extremities are free of edema. IMAGING: CTAP: 1. Nonobstructing stones seen in atrophic left kidney. No obstructing stones or hydronephrosis. No hydroureter. Normal appearing urinary bladder. 2. No bowel obstruction or abnormal bowel wall thickening. Moderate to severe constipation. No free fluid or free air. 3. Other chronic findings as above. Recent ECHO: The left ventricular cavity is small. The ejection fraction is estimated to be 70-75%. Diastolic function is indeterminate. The right ventricle is normal in size and function. There is mild mitral regurgitation. Pulmonary artery pressures cannot be estimated because of the lack of a measurable TR jet velocity but the IVC suggests a CVP of around 3 mmHg. There is significant thickening of the interatrial septum the pattern of which appears most consistent with lipomatous hypertrophy which is a normal variant. This was also present on the prior study 09/20/2022 however the superior portion of the thickening does appear increased compared to prior. A myxoma cannot be ruled out. A/P: 1. UTI. Cx pending. 2. Metabolic acidosis (recurrent). 3. Hypokalemia. 4. FE. Creatinine 2.2 at admission. 5. Hyperlipidemia. 6. GERD. 7. Hypertension. 8. Chronic severe protein caloric malnutrition. 9. H/O alcohol use. PLAN: -Continue Abx and follow Cx. -Pain control. -Replete K JERI: 05/29. Exam Vital Signs (past 8 hours): - 05/28/25 08:41 Temperature 97.0 F L Pulse Rate 85 Respiratory Rate 14 Blood Pressure 134/75 Pulse Oximetry 100 Oxygen Flow Rate 0 Oxygen Delivery Method Room Air Oxygen Flow Rate 0 Objective Labs 05/28/25 06:20 05/28/25 06:20 Labs: Laboratory Results - last 24 hr 05/27/25 05/28/25 16:40 06:20 WBC 7.1 RBC 2.74 L Hgb 9.6 L Hct 27.1 L MCV 99.0 D MCH 34.9 H MCHC 35.2 RDW 22.7 H Plt Count 361 Neut % (Auto) 78.3 H D Lymph % (Auto) 6.4 L D [place] % (Auto) 11.1 Eos % (Auto) 2.7 Baso % (Auto) 1.5 Neut # (Auto) 5600 Lymph # (Auto) 500 L [place] # (Auto) 800 Eos # (Auto) 200 Baso # (Auto) 100 Plt Morphology Comment RBC Morphology See below Poikilocytosis 1+ H Anisocytosis 2+ H Macrocytosis 1+ H Sodium 136 L 138 Potassium 4.0 2.7 L* D Chloride 112 H 107 Carbon Dioxide < 5 L* 18 L BUN 38 H 32 H Creatinine 1.70 H 1.01 Estimated GFR 31 L 59 L BUN/Creatinine Ratio 22.4 H 31.7 H Glucose 130 H 126 H Calcium 7.9 L 7.5 L PFSH Medical History Family history of colon cancer in father Closed fracture of left distal femur Immunodeficiency due to conditions classified elsewhere Age-related osteoporosis without current pathological fracture History of vertebral compression fracture GERD without esophagitis Primary osteoarthritis involving multiple joints Chronic low back pain Stage 3b chronic kidney disease (CKD) Mixed hyperlipidemia Essential hypertension Cerebrovascular disease Coronary artery disease Recurrent UTI Displaced comminuted fracture of shaft of tibia Septic shock Left rib fracture Closed left clavicular fracture Iron (Fe) deficiency anemia Nephrolithiasis Peptic ulcer disease History of osteomyelitis Fracture, tibia Left foot drop Numbness and tingling HLD (hyperlipidemia) C. difficile colitis Colitis Anxiety Insomnia Arthritis DJD (degenerative joint disease) Depression Fibromyalgia Migraines Multiple fractures Osteoporosis Radius fracture (08/30/17) Neuropathy History of recurrent UTIs Renal disease Hypertension Chronic pain GI bleeding Surgical History Hx of kyphoplasty (07/28/19) Hx of kyphoplasty (04/28/19) Hx of kyphoplasty (~2013) Hx of elbow surgery Hx of appendectomy Hx of cholecystectomy Status post epidural steroid injection (03/25/19) H/O: hysterectomy Hx of tonsillectomy History of surgery Family History Mother No known health problems COPD (chronic obstructive pulmonary disease) Father No known health problems Social History household members: family Smoking Status: Former smoker alcohol intake: current Assessment & Plan Time-Based Coding :: [TOTAL MINUTES] spent with patient and on the chart (including review of chart, obtaining history, exam, reviewing outside data, placing orders, documenting exam and treatment plan, and counseling patient) on [DATE].
[2025-05-28 16:00] VITALS: BP 150/75; PULSE 89; RESP 14; TEMP 36.6; O2SAT 100
[2025-05-28 18:03] LABS: Blood Urea Nitrogen 27 mg/dL (7-17); Calcium 7.3 mg/dL (8.4-10.2); Carbon Dioxide 24 mmol/L (22-32); Chloride 99 mmol/L (98-107); Estimated Glomerular Filt Rate > 60 mL/min (>60); Glucose 144 mg/dL (70-99); HEMOLYSIS 21 (0-50); Magnesium 1.2 mg/dL (1.6-2.3); Potassium 3.8 mmol/L (3.4-5.1); Sodium 137 mmol/L (137-145)
[2025-05-28] MEDS: MAGNESIUM SULFATE 2 GM/50 ML PIGGYBACK IV (19:01)
[2025-05-28 20:00] VITALS: BP 119/66; PULSE 92; RESP 18; TEMP 36.3; O2SAT 99
[2025-05-29] VITALS: BP 134/79; PULSE 109; RESP 18; TEMP 36.3; O2SAT 96
[2025-05-29 04:00] VITALS: BP 139/82; PULSE 114; RESP 18; TEMP 35.8; O2SAT 98
[2025-05-29] MEDS: SODIUM BICARB 8.4% VIAL 150 MEQ in DEXTROSE 5% WATER 1,000 ML IV (06:35)
[2025-05-29 08:00] VITALS: BP 147/84; PULSE 78; RESP 17; TEMP 36.5; O2SAT 99
[2025-05-29] MEDS: PANTOPRAZOLE DR 40 MG TABLET PO (08:34)
[2025-05-29] MEDS: ATORVASTATIN 20 MG TABLET 40 MG PO (08:36)
[2025-05-29] MEDS: ASPIRIN EC 81 MG TABLET PO (08:37)
[2025-05-29] MEDS: HEPARIN 5,000 UNIT/ML VIAL 5000 UNIT SUBCUT ×2 (08:37→21:32)
[2025-05-29] MEDS: METOPROLOL IR 25 MG TABLET PO ×2 (08:38→21:32)
[2025-05-29 09:01] LABS: Add Manual Diff / Slide Review NO; Hematocrit 29.2 % (36-46); Hemoglobin 9.9 g/dL (12.0-16.0); Lymphocytes Absolute Auto 3200 /uL (1100-4500); Mean Corpuscular HGB Conc 33.8 % (30-36); Mean Corpuscular Hemoglobin 33.4 PG (26-34); Mean Corpuscular Volume 98.7 fL (80-100); Platelet Count 337 X10^3/uL (150-400)
[2025-05-29 09:10] LABS: Chloride 91 mmol/L (98-107); HEMOLYSIS < 15 (0-50)
[2025-05-29 09:12] LABS: Blood Urea Nitrogen 22 mg/dL (7-17); Calcium 7.2 mg/dL (8.4-10.2); Carbon Dioxide 35 mmol/L (22-32); Estimated Glomerular Filt Rate > 60 mL/min (>60); Glucose 122 mg/dL (70-99); Potassium 3.2 mmol/L (3.4-5.1); Sodium 136 mmol/L (137-145)
[2025-05-29 09:13] LABS: Magnesium 1.8 mg/dL (1.6-2.3)
[2025-05-29 09:40] LABS: Anisocytosis 2+
--- NOTE | 2025-05-29 11:28 | CM.DPNOTE ---
DCP note FISHING HAND reviewed EMR per provider, labs have improved. cultures still pending for sensitivities for abx plan. likely here until tomorrow. P: anticipate dc home with partner and [facility] when stable. may need Medicaid transport. will continue to follow closely for DCP coordination JANET Chavez
--- NOTE | 2025-05-29 11:45 | PC.NURSE ---
Patient is comfortable, she is getting perocet every 4 hours for pain and is sleeping up in her chair. She ate some at breakfast and is comfortable and voices no needs at this time.
[2025-05-29 12:00] VITALS: BP 116/63; PULSE 74; RESP 18; TEMP 35.7; O2SAT 97
[2025-05-29] MEDS: POTASSIUM CHLORIDE 20 MEQ TAB 40 MEQ PO (14:59)
[2025-05-29 16:00] VITALS: BP 122/65; PULSE 95; RESP 16; TEMP 36.3; O2SAT 98
--- NOTE | 2025-05-29 18:35 | P.PN_ITS ---
Subjective Subjective Interval history: 74-year-old female with history of hyperlipidemia and GERD as well as nephrolithiasis who was admitted with a UTI, acute kidney injury, and severe metabolic acidosis. Patient report she is slowly feeling better. Her appetite remains poor. She is trying to make herself eat more protein and ordered tofu in her egg omelet this morning. She states she continues to have right lower abdominal pain which surprises her as she thought her pain should be on the left which is the side she states that her kidney stones are on. She denies any nausea. No other complaints. Exam Vital Signs (past 8 hours): - 05/29/25 12:00 05/29/25 16:00 Temperature 96.3 F L 97.3 F L Pulse Rate 74 95 H Respiratory Rate 18 16 Blood Pressure 116/63 122/65 Pulse Oximetry 97 98 Oxygen Delivery Method Room Air Oxygen Flow Rate 0 Narrative Exam Narrative: GEN: Very pleasant middle-aged female Alert and oriented x 3, NAD HEENT:NC, Face symmetric CHEST: Respiratory excursions symmetric, CTAB CV: RRR, no M/R/G ABD: Soft, NT/ND, BT present in all 4 quadrants, no organomegaly or masses EXTR: warm, well perfused, no C/C/E SKIN: warm and dry, no rash NEURO: Alert and oriented x 3, nonfocal Objective Labs 05/29/25 08:20 05/29/25 08:20 Labs: Laboratory Results - last 24 hr 05/29/25 08:20 WBC 7.0 RBC 2.96 L Hgb 9.9 L Hct 29.2 L MCV 98.7 MCH 33.4 MCHC 33.8 RDW 22.8 H Plt Count 337 Neut % (Auto) 43.5 L D Lymph % (Auto) 45.9 H D [place] % (Auto) 8.2 Eos % (Auto) 1.5 L Baso % (Auto) 0.9 Neut # (Auto) 3000 Lymph # (Auto) 3200 [place] # (Auto) 600 Eos # (Auto) 100 Baso # (Auto) 100 RBC Morphology Not Reportable Anisocytosis 2+ H Sodium 136 L Potassium 3.2 L Chloride 91 L Carbon Dioxide 35 H BUN 22 H Creatinine 0.74 Estimated GFR > 60 BUN/Creatinine Ratio 29.7 H Glucose 122 H Calcium 7.2 L Magnesium 1.8 PFSH Medical History Family history of colon cancer in father Closed fracture of left distal femur Immunodeficiency due to conditions classified elsewhere Age-related osteoporosis without current pathological fracture History of vertebral compression fracture GERD without esophagitis Primary osteoarthritis involving multiple joints Chronic low back pain Stage 3b chronic kidney disease (CKD) Mixed hyperlipidemia Essential hypertension Cerebrovascular disease Coronary artery disease Recurrent UTI Displaced comminuted fracture of shaft of tibia Septic shock Left rib fracture Closed left clavicular fracture Iron (Fe) deficiency anemia Nephrolithiasis Peptic ulcer disease History of osteomyelitis Fracture, tibia Left foot drop Numbness and tingling HLD (hyperlipidemia) C. difficile colitis Colitis Anxiety Insomnia Arthritis DJD (degenerative joint disease) Depression Fibromyalgia Migraines Multiple fractures Osteoporosis Radius fracture (08/30/17) Neuropathy History of recurrent UTIs Renal disease Hypertension Chronic pain GI bleeding Surgical History Hx of kyphoplasty (07/28/19) Hx of kyphoplasty (04/28/19) Hx of kyphoplasty (~2013) Hx of elbow surgery Hx of appendectomy Hx of cholecystectomy Status post epidural steroid injection (03/25/19) H/O: hysterectomy Hx of tonsillectomy History of surgery Family History Mother No known health problems COPD (chronic obstructive pulmonary disease) Father No known health problems Social History household members: family Smoking Status: Former smoker alcohol intake: current Assessment & Plan Assessment & Plan narrative: 1. 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 It was in prior cultures from March 15 and May 01 as well. Sensitivities are not routinely done. I have asked for these to be performed to ensure that she does not have resistant bacteria. For now continue Meropenem. 2. Acute kidney injury Resolving. On admission her creatinine was 1.7. It is now back to 0.74. BUN is down 22. 3. Severe metabolic acidosis On admission, bicarb was less than 5. It is now high at 35. She has been on a bicarb drip. This will be discontinued. Recheck labs tomorrow. 4. Hypokalemia Potassium was down to 2.7 yesterday. With repletion it was up to 3.8 yesterday evening. It is 3.2 today. Will continue to replete 5. Normocytic anemia Hemoglobin is 9.9 today, which is stable from yesterday at 9.6. Her hemoglobin has been somewhat vial of tile ranging from about the mid 9 range up to 12. It is unclear what her baseline is at this point. Will continue to monitor. 6. Hypertension Blood pressures are primarily normotensive. Continue metoprolol. 7. Chronic severe protein calorie malnutrition She is working on increasing protein intake 8. History of alcohol use No evidence of withdrawal Code status Full Prophylaxis On heparin Disposition Possibly home in 24 hours pending results of her urine culture Time-Based Coding :: [TOTAL MINUTES] spent with patient and on the chart (including review of chart, obtaining history, exam, reviewing outside data, placing orders, documenting exam and treatment plan, and counseling patient) on [DATE].
[2025-05-29 20:00] VITALS: BP 122/56; PULSE 60; RESP 18; TEMP 35.6; O2SAT 95
[2025-05-30] VITALS: BP 143/74; PULSE 97; RESP 19; TEMP 35.9; O2SAT 96
[2025-05-30 04:00] VITALS: BP 122/50; PULSE 86; RESP 17; TEMP 35.6; O2SAT 97
[2025-05-30 05:24] LABS: Blood Urea Nitrogen 23 mg/dL (7-17); Calcium 7.3 mg/dL (8.4-10.2); Carbon Dioxide 31 mmol/L (22-32); Chloride 95 mmol/L (98-107); Estimated Glomerular Filt Rate > 60 mL/min (>60); Glucose 108 mg/dL (70-99); HEMOLYSIS 18 (0-50); Potassium 4.3 mmol/L (3.4-5.1); Sodium 131 mmol/L (137-145)
[2025-05-30 05:27] LABS: Add Manual Diff / Slide Review NO; Hematocrit 26.3 % (36-46); Hemoglobin 9.3 g/dL (12.0-16.0); Lymphocytes Absolute Auto 3200 /uL (1100-4500); Mean Corpuscular HGB Conc 35.3 % (30-36); Mean Corpuscular Hemoglobin 35.0 PG (26-34); Mean Corpuscular Volume 99.0 fL (80-100); Platelet Count 290 X10^3/uL (150-400)
[2025-05-30 05:39] LABS: Magnesium 1.6 mg/dL (1.6-2.3)
[2025-05-30 05:49] LABS: Anisocytosis 2+
[2025-05-30 08:10] VITALS: BP 151/76; PULSE 83; RESP 15; TEMP 36.4; O2SAT 99
[2025-05-30] MEDS: METOPROLOL IR 25 MG TABLET PO ×2 (08:15→21:02)
[2025-05-30] MEDS: HEPARIN 5,000 UNIT/ML VIAL 5000 UNIT SUBCUT ×2 (08:15→21:02)
[2025-05-30] MEDS: PANTOPRAZOLE DR 40 MG TABLET PO (08:15)
[2025-05-30] MEDS: ATORVASTATIN 20 MG TABLET 40 MG PO (08:15)
[2025-05-30] MEDS: MAGNESIUM CHLORIDE 64 MG TABLET 128 MG PO (08:15)
[2025-05-30] MEDS: ASPIRIN EC 81 MG TABLET PO (08:15)
[2025-05-30] MEDS: SODIUM CHLORIDE 0.9% FLUSH 10 ML IV ×2 (08:16→21:00)
[2025-05-30 12:00] VITALS: BP 100/50; PULSE 89; RESP 16; TEMP 36.4; O2SAT 99
--- NOTE | 2025-05-30 17:01 | PM.PN.1 ---
Subjective Subjective Interval history: 74-year-old female with history of hyperlipidemia and GERD as well as nephrolithiasis who was admitted with a UTI, acute kidney injury, and severe metabolic acidosis. 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 She also describes what sounds like ureteral reflux. She has a history of frequent urinary tract infections as a child. She states she takes cranberry supplements as well as demand us regularly. She also reports she works on staying hydrated as result of her congenital issues. Urine culture has once again grown Citrobacter werkmanii, which previously grew in February, April, and on May 20. Sensitivities have not previously been performed. Microbiology notes that sensitivities are not typically performed on this bacteria. Request for sensitivities was sent yesterday but I am told that it likely will not be back until Saturday as it is a send out. Patient reports she has had return of dysuria since yesterday and continues to have right lower abdominal pain. Of note, on admission she was initially placed on meropenem due to it being noted she failed an outpatient cephalosporin. However, later in the day on May 27, she was transitioned from meropenem to IV ceftriaxone. However, in the dictated note meropenem was still the antibiotic noted as the antibiotic of choice. She subsequently received ceftriaxone on May 27, May 28, May 29, and today. Exam Vital Signs (past 8 hours): - 05/30/25 12:00 Temperature 97.5 F L Pulse Rate 89 Respiratory Rate 16 Blood Pressure 100/50 L Pulse Oximetry 99 Oxygen Flow Rate 0 Oxygen Delivery Method Room Air Oxygen Flow Rate 0 Narrative Exam Narrative: GEN: Very pleasant middle-aged female Alert and oriented x 3, NAD HEENT:NC, Face symmetric CHEST: Respiratory excursions symmetric, CTAB CV: RRR, no M/R/G ABD: Soft, NT/ND, BT present in all 4 quadrants, no organomegaly or masses EXTR: warm, well perfused, no C/C/E SKIN: warm and dry, no rash NEURO: Alert and oriented x 3, nonfocal Objective Labs 05/30/25 04:45 05/30/25 04:45 Labs: Laboratory Results - last 24 hr 05/30/25 04:45 WBC 6.9 RBC 2.66 L Hgb 9.3 L Hct 26.3 L MCV 99.0 MCH 35.0 H MCHC 35.3 RDW 23.0 H Plt Count 290 Neut % (Auto) 44.3 L Lymph % (Auto) 45.9 H [place] % (Auto) 7.4 Eos % (Auto) 1.6 L Baso % (Auto) 0.8 Neut # (Auto) 3100 Lymph # (Auto) 3200 [place] # (Auto) 500 Eos # (Auto) 100 Baso # (Auto) 100 RBC Morphology Not Reportable Anisocytosis 2+ H Sodium 131 L Potassium 4.3 Chloride 95 L Carbon Dioxide 31 BUN 23 H Creatinine 0.79 Estimated GFR > 60 BUN/Creatinine Ratio 29.1 H Glucose 108 H Calcium 7.3 L Magnesium 1.6 PFSH Medical History Family history of colon cancer in father Closed fracture of left distal femur Immunodeficiency due to conditions classified elsewhere Age-related osteoporosis without current pathological fracture History of vertebral compression fracture GERD without esophagitis Primary osteoarthritis involving multiple joints Chronic low back pain Stage 3b chronic kidney disease (CKD) Mixed hyperlipidemia Essential hypertension Cerebrovascular disease Coronary artery disease Recurrent UTI Displaced comminuted fracture of shaft of tibia Septic shock Left rib fracture Closed left clavicular fracture Iron (Fe) deficiency anemia Nephrolithiasis Peptic ulcer disease History of osteomyelitis Fracture, tibia Left foot drop Numbness and tingling HLD (hyperlipidemia) C. difficile colitis Colitis Anxiety Insomnia Arthritis DJD (degenerative joint disease) Depression Fibromyalgia Migraines Multiple fractures Osteoporosis Radius fracture (08/30/17) Neuropathy History of recurrent UTIs Renal disease Hypertension Chronic pain GI bleeding Surgical History Hx of kyphoplasty (07/28/19) Hx of kyphoplasty (04/28/19) Hx of kyphoplasty (~2013) Hx of elbow surgery Hx of appendectomy Hx of cholecystectomy Status post epidural steroid injection (03/25/19) H/O: hysterectomy Hx of tonsillectomy History of surgery Family History Mother No known health problems COPD (chronic obstructive pulmonary disease) Father No known health problems Social History household members: family Smoking Status: Former smoker alcohol intake: current Assessment & Plan Assessment & Plan narrative: 1. 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 It was in prior cultures from March 15 and May 01 as well. Sensitivities are not routinely done. I have asked for these to be performed to ensure that she does not have resistant bacteria. After discovering this afternoon that she was placed on ceftriaxone rather than meropenem, I have discontinued the ceftriaxone and ordered meropenem. I suspect this is why she is having recurrent dysuria and ongoing right lower quadrant pain. I did speak with Infectious Disease at [facility], Dr. Piero Roberts who noted fairly routine development of cephalosporin resistance with this particular Citrobacter strain. He advised once her symptoms have been managed and she seems to be improving, she could be discharged with fosfomycin 3 g PO Q 72 hours x2 doses. It could be considered to give her a dose once weekly for prophylaxis. He knows if she is not improving inpatient on the Mirapex item, she should remain inpatient until results of the sensitivities are available. 2. Acute kidney injury Resolving. On admission her creatinine was 1.7. It is now back to 0.74. BUN has not entirely normalized but is stable at 23. 3. Severe metabolic acidosis On admission, bicarb was less than 5. Bicarb was high yesterday at 35 on a bicarb drip. It is now normalized off the bicarb drip. 4. Hypokalemia Potassium was down to 2.7 yesterday. It was repleted up to 3.8 on 05/28. It was down to 3.2 yesterday and is now normal at 4.3 with repletion. 5. Normocytic anemia Hemoglobin remained stable at 9.3. 6. Hypertension Blood pressures are primarily normotensive. Continue metoprolol. 7. Chronic severe protein calorie malnutrition She is working on increasing protein intake 8. History of alcohol use No evidence of withdrawal Code status Full Prophylaxis On heparin Disposition Home when urinary symptoms have resolved Time-Based Coding :: [TOTAL MINUTES] spent with patient and on the chart (including review of chart, obtaining history, exam, reviewing outside data, placing orders, documenting exam and treatment plan, and counseling patient) on [DATE].
[2025-05-30] MEDS: MEROPENEM 1 GM in SODIUM CHLORIDE 0.9% 100 ML IV (17:30)
[2025-05-30 17:32] VITALS: BP 163/96; PULSE 100; RESP 15; TEMP 36.6; O2SAT 98
[2025-05-30 20:00] VITALS: BP 145/86; PULSE 101; RESP 17; TEMP 35.7; O2SAT 94
[2025-05-31] VITALS (7 sets, daily range): BP systolic 144–176; BP diastolic 85–101; PULSE 88–99; RESP 15–20; TEMP 35.7–36.8; O2SAT 94–99
[2025-05-31] MEDS: MEROPENEM 1 GM in SODIUM CHLORIDE 0.9% 100 ML IV ×2 (04:00→16:40)
[2025-05-31 05:38] LABS: Add Manual Diff / Slide Review NO; Hematocrit 30.1 % (36-46); Hemoglobin 10.2 g/dL (12.0-16.0); Lymphocytes Absolute Auto 3100 /uL (1100-4500); Mean Corpuscular HGB Conc 33.8 % (30-36); Mean Corpuscular Hemoglobin 33.9 PG (26-34); Mean Corpuscular Volume 100.3 fL (80-100); Platelet Count 377 X10^3/uL (150-400)
[2025-05-31 05:47] LABS: Blood Urea Nitrogen 22 mg/dL (7-17); Calcium 9.0 mg/dL (8.4-10.2); Carbon Dioxide 28 mmol/L (22-32); Chloride 99 mmol/L (98-107); Estimated Glomerular Filt Rate > 60 mL/min (>60); Glucose 105 mg/dL (70-99); HEMOLYSIS < 15 (0-50); Potassium 4.3 mmol/L (3.4-5.1); Sodium 134 mmol/L (137-145)
[2025-05-31 05:48] LABS: Anisocytosis 1+; Target Cells 1+
[2025-05-31 05:49] LABS: Magnesium 1.8 mg/dL (1.6-2.3)
--- NOTE | 2025-05-31 07:58 | P.PN_ITS ---
Subjective Subjective Interval history: Hospital course: 74-year-old female with history of hyperlipidemia and GERD as well as nephrolithiasis who was admitted with a UTI, acute kidney injury, and severe metabolic acidosis. 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 She also describes what sounds like ureteral reflux. She has a history of frequent urinary tract infections as a child. She states she takes cranberry supplements as well as demand us regularly. She also reports she works on staying hydrated as result of her congenital issues. Urine culture has once again grown Citrobacter werkmanii, which previously grew in February, April, and on May 20. Sensitivities have not previously been performed. Microbiology notes that sensitivities are not typically performed on this bacteria. Request for sensitivities was sent yesterday but I am told that it likely will not be back until Saturday as it is a send out. Patient reports she has had return of dysuria since yesterday and continues to have right lower abdominal pain. Of note, on admission she was initially placed on meropenem due to it being noted she failed an outpatient cephalosporin. However, later in the day on May 27, she was transitioned from meropenem to IV ceftriaxone. 05/30: Antibiotics changed back to meropenem. S: She was feeling a little bit better today. She was switched back to meropenem for possible Citrobacter which is resistant to cephalosporin pending culture. She has lower back pain. O: NAD, alert and oriented. Fluent speech. Lungs are clear, normal rate and effort. Heart is regular, no murmur gallop or rub. Abdomen is soft, non distended. Extremities are free of edema. IMAGING: CTAP: 1. Nonobstructing stones seen in atrophic left kidney. No obstructing stones or hydronephrosis. No hydroureter. Normal appearing urinary bladder. 2. No bowel obstruction or abnormal bowel wall thickening. Moderate to severe constipation. No free fluid or free air. 3. Other chronic findings as above. Recent ECHO: The left ventricular cavity is small. The ejection fraction is estimated to be 70-75%. Diastolic function is indeterminate. The right ventricle is normal in size and function. There is mild mitral regurgitation. Pulmonary artery pressures cannot be estimated because of the lack of a measurable TR jet velocity but the IVC suggests a CVP of around 3 mmHg. There is significant thickening of the interatrial septum the pattern of which appears most consistent with lipomatous hypertrophy which is a normal variant. This was also present on the prior study 09/20/2022 however the superior portion of the thickening does appear increased compared to prior. A myxoma cannot be ruled out. A/P: 1. UTI. Cx with Citrobacter, no sensitivities initially done, these were requested over the weekend in her pending. 2. Metabolic acidosis (recurrent). 3. Hypokalemia. 4. FE. Creatinine 2.2 at admission. 5. Hyperlipidemia. 6. GERD. 7. Hypertension. 8. Chronic severe protein caloric malnutrition. 9. H/O alcohol use. PLAN: -Continue Abx (Meropenem) and follow Cx. -Pain control. -Replete K JERI: 05/29. Exam Vital Signs (past 8 hours): - 05/31/25 00:00 05/31/25 00:01 05/31/25 03:59 Temperature 96.3 F L Pulse Rate 99 H Respiratory Rate 16 Blood Pressure 156/88 H 162/85 H 176/90 H Pulse Oximetry 95 Oxygen Flow Rate 0 05/31/25 04:00 Temperature 96.2 F L Pulse Rate 88 Respiratory Rate 17 Blood Pressure 173/89 H Pulse Oximetry 95 Oxygen Flow Rate 0 Oxygen Delivery Method Room Air Oxygen Flow Rate 0 Objective Labs 05/31/25 04:42 05/31/25 04:42 Labs: Laboratory Results - last 24 hr 05/31/25 04:42 WBC 7.6 RBC 3.00 L Hgb 10.2 L Hct 30.1 L MCV 100.3 H MCH 33.9 MCHC 33.8 RDW 24.5 H Plt Count 377 Neut % (Auto) 47.7 L Lymph % (Auto) 41.2 H [place] % (Auto) 8.0 Eos % (Auto) 2.1 Baso % (Auto) 1.0 Neut # (Auto) 3600 Lymph # (Auto) 3100 [place] # (Auto) 600 Eos # (Auto) 200 Baso # (Auto) 100 RBC Morphology Not Reportable Anisocytosis 1+ H Target Cells 1+ H Sodium 134 L Potassium 4.3 Chloride 99 Carbon Dioxide 28 BUN 22 H Creatinine 0.91 Estimated GFR > 60 BUN/Creatinine Ratio 24.2 H Glucose 105 H Calcium 9.0 Magnesium 1.8 PFSH Medical History Family history of colon cancer in father Closed fracture of left distal femur Immunodeficiency due to conditions classified elsewhere Age-related osteoporosis without current pathological fracture History of vertebral compression fracture GERD without esophagitis Primary osteoarthritis involving multiple joints Chronic low back pain Stage 3b chronic kidney disease (CKD) Mixed hyperlipidemia Essential hypertension Cerebrovascular disease Coronary artery disease Recurrent UTI Displaced comminuted fracture of shaft of tibia Septic shock Left rib fracture Closed left clavicular fracture Iron (Fe) deficiency anemia Nephrolithiasis Peptic ulcer disease History of osteomyelitis Fracture, tibia Left foot drop Numbness and tingling HLD (hyperlipidemia) C. difficile colitis Colitis Anxiety Insomnia Arthritis DJD (degenerative joint disease) Depression Fibromyalgia Migraines Multiple fractures Osteoporosis Radius fracture (08/30/17) Neuropathy History of recurrent UTIs Renal disease Hypertension Chronic pain GI bleeding Surgical History Hx of kyphoplasty (07/28/19) Hx of kyphoplasty (04/28/19) Hx of kyphoplasty (~2013) Hx of elbow surgery Hx of appendectomy Hx of cholecystectomy Status post epidural steroid injection (03/25/19) H/O: hysterectomy Hx of tonsillectomy History of surgery Family History Mother No known health problems COPD (chronic obstructive pulmonary disease) Father No known health problems Social History household members: family Smoking Status: Former smoker alcohol intake: current Assessment & Plan Time-Based Coding :: [TOTAL MINUTES] spent with patient and on the chart (including review of chart, obtaining history, exam, reviewing outside data, placing orders, documenting exam and treatment plan, and counseling patient) on [DATE].
[2025-05-31] MEDS: HEPARIN 5,000 UNIT/ML VIAL 5000 UNIT SUBCUT ×2 (08:41→21:11)
[2025-05-31] MEDS: ATORVASTATIN 20 MG TABLET 40 MG PO (08:41)
[2025-05-31] MEDS: PANTOPRAZOLE DR 40 MG TABLET PO (08:41)
[2025-05-31] MEDS: ASPIRIN EC 81 MG TABLET PO (08:41)
[2025-05-31] MEDS: METOPROLOL IR 25 MG TABLET PO ×2 (08:49→21:11)
[2025-05-31] MEDS: SODIUM CHLORIDE 0.9% FLUSH 10 ML IV ×2 (08:57→21:11)
--- NOTE | 2025-05-31 15:22 | CM.DPNOTE ---
DCP Note WEATHER ANCHOR reviewed EMR per provider in morning rounds, sensitivities still pending for ABX plan. results back vs Sat? provider consulting with ID as well. no new CM/DCP needs at this time P: eventual dc home with K[facility]Y and partner support when cultures finalized. potential Medicaid transport needs if [facility] can't transport? Will continue to follow as needed for DCP coordination JANET Chavez
[2025-05-31] MEDS: ACETAMINOPHEN 325 MG TABLET 650 MG PO ×2 (16:40→22:11)
[2025-06-01] VITALS: BP 133/86; PULSE 92; RESP 16; TEMP 36.2; O2SAT 96
[2025-06-01 04:00] VITALS: BP 138/83; PULSE 77; RESP 16; TEMP 36.4; O2SAT 96
[2025-06-01] MEDS: MEROPENEM 1 GM in SODIUM CHLORIDE 0.9% 100 ML IV ×2 (05:23→17:42)
--- NOTE | 2025-06-01 07:39 | PM.PN.1 ---
Subjective Subjective Interval history: S: She was still having dysuria. Some kidney pain. No fevers, nausea, or vomiting. She would like to increase the frequency of availability of Tylenol so that she can call administer occasionally with the oxycodone. O: NAD, alert and oriented. Fluent speech. Lungs are clear, normal rate and effort. Heart is regular, no murmur gallop or rub. Abdomen is soft, non distended. Extremities are free of edema. IMAGING: CTAP: 1. Nonobstructing stones seen in atrophic left kidney. No obstructing stones or hydronephrosis. No hydroureter. Normal appearing urinary bladder. 2. No bowel obstruction or abnormal bowel wall thickening. Moderate to severe constipation. No free fluid or free air. 3. Other chronic findings as above. Recent ECHO: The left ventricular cavity is small. The ejection fraction is estimated to be 70-75%. Diastolic function is indeterminate. The right ventricle is normal in size and function. There is mild mitral regurgitation. Pulmonary artery pressures cannot be estimated because of the lack of a measurable TR jet velocity but the IVC suggests a CVP of around 3 mmHg. There is significant thickening of the interatrial septum the pattern of which appears most consistent with lipomatous hypertrophy which is a normal variant. This was also present on the prior study 09/20/2022 however the superior portion of the thickening does appear increased compared to prior. A myxoma cannot be ruled out. A/P: 1. UTI. Cx with Citrobacter, no sensitivities initially done, these were requested over the weekend in her pending. 2. Metabolic acidosis (recurrent). 3. Hypokalemia. 4. FE. Creatinine 2.2 at admission. 5. Hyperlipidemia. 6. GERD. 7. Hypertension. 8. Chronic severe protein caloric malnutrition. 9. H/O alcohol use. PLAN: -Continue Abx (Meropenem) and follow Cx. Sensitivities are pending, she would be back by Saturday. -Pain control. -Monitor and replete K JERI: 06/02. Exam Vital Signs (past 8 hours): - 06/01/25 00:00 06/01/25 04:00 Temperature 97.2 F L 97.6 F Pulse Rate 92 H 77 Respiratory Rate 16 16 Blood Pressure 133/86 138/83 Pulse Oximetry 96 96 Oxygen Flow Rate 0 Oxygen Delivery Method Room Air Oxygen Flow Rate 0 Objective Labs 05/31/25 04:42 05/31/25 04:42 [facility] Medical History Family history of colon cancer in father Closed fracture of left distal femur Immunodeficiency due to conditions classified elsewhere Age-related osteoporosis without current pathological fracture History of vertebral compression fracture GERD without esophagitis Primary osteoarthritis involving multiple joints Chronic low back pain Stage 3b chronic kidney disease (CKD) Mixed hyperlipidemia Essential hypertension Cerebrovascular disease Coronary artery disease Recurrent UTI Displaced comminuted fracture of shaft of tibia Septic shock Left rib fracture Closed left clavicular fracture Iron (Fe) deficiency anemia Nephrolithiasis Peptic ulcer disease History of osteomyelitis Fracture, tibia Left foot drop Numbness and tingling HLD (hyperlipidemia) C. difficile colitis Colitis Anxiety Insomnia Arthritis DJD (degenerative joint disease) Depression Fibromyalgia Migraines Multiple fractures Osteoporosis Radius fracture (08/30/17) Neuropathy History of recurrent UTIs Renal disease Hypertension Chronic pain GI bleeding Surgical History Hx of kyphoplasty (07/28/19) Hx of kyphoplasty (04/28/19) Hx of kyphoplasty (~2013) Hx of elbow surgery Hx of appendectomy Hx of cholecystectomy Status post epidural steroid injection (03/25/19) H/O: hysterectomy Hx of tonsillectomy History of surgery Family History Mother No known health problems COPD (chronic obstructive pulmonary disease) Father No known health problems Social History household members: family Smoking Status: Former smoker alcohol intake: current Assessment & Plan Time-Based Coding :: [TOTAL MINUTES] spent with patient and on the chart (including review of chart, obtaining history, exam, reviewing outside data, placing orders, documenting exam and treatment plan, and counseling patient) on [DATE].
[2025-06-01 08:00] VITALS: BP 157/100; PULSE 90; RESP 18; TEMP 35.7; O2SAT 99
[2025-06-01] MEDS: ATORVASTATIN 20 MG TABLET 40 MG PO (08:55)
[2025-06-01] MEDS: PANTOPRAZOLE DR 40 MG TABLET PO (08:56)
[2025-06-01] MEDS: ASPIRIN EC 81 MG TABLET PO (08:56)
[2025-06-01] MEDS: SODIUM CHLORIDE 0.9% FLUSH 10 ML IV ×2 (08:56→20:50)
[2025-06-01] MEDS: METOPROLOL IR 25 MG TABLET PO ×2 (08:56→20:49)
[2025-06-01] MEDS: HEPARIN 5,000 UNIT/ML VIAL 5000 UNIT SUBCUT ×2 (09:04→20:49)
[2025-06-01] MEDS: ACETAMINOPHEN 325 MG TABLET 650 MG PO ×4 (09:04→22:56)
[2025-06-01 10:35] LABS: MRSA (Nasal) PCR NOT DETECTED (Not Detect)
[2025-06-01 12:00] VITALS: BP 119/75; PULSE 75; RESP 13; TEMP 35.8; O2SAT 96
--- NOTE | 2025-06-01 12:04 | CM.DPNOTE ---
DCP Continued: Reviewed EMR and team rounds for pt?s medical status. Per hospitalist, pending culture results before discharge and final abx treatment recommendations. No new discharge needs identified at this time. Plan: Anticipating dc home with partner to transport on 06/02 or when medically cleared. CM Team will continue to follow for coordination of discharge plans. MARIKA Bates
[2025-06-01 18:00] VITALS: PULSE 93; TEMP 35.9; O2SAT 98
[2025-06-01 22:00] VITALS: BP 154/94; PULSE 98; RESP 14; TEMP 36.3; O2SAT 95
[2025-06-02] MEDS: MEROPENEM 1 GM in SODIUM CHLORIDE 0.9% 100 ML IV ×2 (03:35→16:50)
[2025-06-02 06:30] LABS: Add Manual Diff / Slide Review NO; Hematocrit 31.5 % (36-46); Hemoglobin 10.5 g/dL (12.0-16.0); Lymphocytes Absolute Auto 2700 /uL (1100-4500); Mean Corpuscular HGB Conc 33.2 % (30-36); Mean Corpuscular Hemoglobin 33.5 PG (26-34); Mean Corpuscular Volume 100.9 fL (80-100); Platelet Count 377 X10^3/uL (150-400)
[2025-06-02 06:39] LABS: Blood Urea Nitrogen 26 mg/dL (7-17); Calcium 9.2 mg/dL (8.4-10.2); Carbon Dioxide 26 mmol/L (22-32); Chloride 99 mmol/L (98-107); Estimated Glomerular Filt Rate 52 mL/min (>60); Glucose 93 mg/dL (70-99); HEMOLYSIS < 15 (0-50); Magnesium 1.8 mg/dL (1.6-2.3); Potassium 5.1 mmol/L (3.4-5.1); Sodium 132 mmol/L (137-145)
[2025-06-02 06:40] LABS: Anisocytosis 3+
[2025-06-02] MEDS: ATORVASTATIN 20 MG TABLET 40 MG PO (08:09)
[2025-06-02] MEDS: ASPIRIN EC 81 MG TABLET PO (08:09)
[2025-06-02] MEDS: SODIUM CHLORIDE 0.9% FLUSH 10 ML IV ×2 (08:10→22:26)
[2025-06-02] MEDS: PANTOPRAZOLE DR 40 MG TABLET PO (08:10)
[2025-06-02] MEDS: METOPROLOL IR 25 MG TABLET PO ×2 (08:10→21:52)
[2025-06-02] MEDS: ACETAMINOPHEN 325 MG TABLET 650 MG PO ×2 (08:10→12:10)
[2025-06-02] MEDS: HEPARIN 5,000 UNIT/ML VIAL 5000 UNIT SUBCUT ×2 (08:10→21:52)
--- NOTE | 2025-06-02 08:25 | PM.PN.1 ---
Subjective Subjective Interval history: S: She was doing well. She was still having kidney pain and some dysuria. We are still waiting for her final sensitivities to she was antibiotics for after the hospital. No nausea or vomiting. O: NAD, alert and oriented. Fluent speech. Lungs are clear, normal rate and effort. Heart is regular, no murmur gallop or rub. Abdomen is soft, non distended. Extremities are free of edema. A/P: 1. UTI. Cx with Citrobacter, no sensitivities initially done, these were requested over the weekend in her pending. 2. Metabolic acidosis (recurrent). 3. Hypokalemia. 4. FE. Creatinine 2.2 at admission. 5. Hyperlipidemia. 6. GERD. 7. Hypertension. 8. Chronic severe protein caloric malnutrition. 9. H/O alcohol use. PLAN: -Continue Abx (Meropenem) and follow Cx. Sensitivities are pending, she would be back by end of day or tomorrow AM. -Pain control. -Monitor and replete K as needed. JERI: 06/03. Exam Vital Signs (past 8 hours): Oxygen Delivery Method Room Air Oxygen Flow Rate 0 Objective Labs 06/02/25 06:20 06/02/25 06:20 Labs: Laboratory Results - last 24 hr 06/01/25 06/02/25 09:00 06:20 WBC 7.5 RBC 3.12 L Hgb 10.5 L Hct 31.5 L MCV 100.9 H MCH 33.5 MCHC 33.2 RDW 24.0 H Plt Count 377 Neut % (Auto) 42.3 L Lymph % (Auto) 35.8 [place] % (Auto) 16.5 H Eos % (Auto) 4.1 H Baso % (Auto) 1.3 Neut # (Auto) 3200 Lymph # (Auto) 2700 [place] # (Auto) 1200 H Eos # (Auto) 300 Baso # (Auto) 100 RBC Morphology See below Anisocytosis 3+ H D Sodium 132 L Potassium 5.1 Chloride 99 Carbon Dioxide 26 BUN 26 H Creatinine 1.11 H Estimated GFR 52 L BUN/Creatinine Ratio 23.4 H Glucose 93 Calcium 9.2 Magnesium 1.8 Nasal Screen MRSA (PCR) Not detected COUNTS INCLUDE 234 BEDS AT THE [facility] Medical History Family history of colon cancer in father Closed fracture of left distal femur Immunodeficiency due to conditions classified elsewhere Age-related osteoporosis without current pathological fracture History of vertebral compression fracture GERD without esophagitis Primary osteoarthritis involving multiple joints Chronic low back pain Stage 3b chronic kidney disease (CKD) Mixed hyperlipidemia Essential hypertension Cerebrovascular disease Coronary artery disease Recurrent UTI Displaced comminuted fracture of shaft of tibia Septic shock Left rib fracture Closed left clavicular fracture Iron (Fe) deficiency anemia Nephrolithiasis Peptic ulcer disease History of osteomyelitis Fracture, tibia Left foot drop Numbness and tingling HLD (hyperlipidemia) C. difficile colitis Colitis Anxiety Insomnia Arthritis DJD (degenerative joint disease) Depression Fibromyalgia Migraines Multiple fractures Osteoporosis Radius fracture (08/30/17) Neuropathy History of recurrent UTIs Renal disease Hypertension Chronic pain GI bleeding Surgical History Hx of kyphoplasty (07/28/19) Hx of kyphoplasty (04/28/19) Hx of kyphoplasty (~2013) Hx of elbow surgery Hx of appendectomy Hx of cholecystectomy Status post epidural steroid injection (03/25/19) H/O: hysterectomy Hx of tonsillectomy History of surgery Family History Mother No known health problems COPD (chronic obstructive pulmonary disease) Father No known health problems Social History household members: family Smoking Status: Former smoker alcohol intake: current Assessment & Plan Time-Based Coding :: [TOTAL MINUTES] spent with patient and on the chart (including review of chart, obtaining history, exam, reviewing outside data, placing orders, documenting exam and treatment plan, and counseling patient) on [DATE].
[2025-06-02 10:00] VITALS: BP 125/81; PULSE 87; RESP 16; TEMP 36.4; O2SAT 97
--- NOTE | 2025-06-02 10:47 | DIET.PN1 ---
Dietary Progress Note Assessment: Tolerating ONS. DFM reviewed, pt ordering extra protein based food 1x/d as well. Ht: 154.94 cm Wt: 41.277 kg BMI: 17.2 UBW: Last BM: 06/01/25 (06/01/25 16:00) MNA: 10 Jaswant Score: 16 Diet: 05/27/25 Breakfast Heart Healthy Diet Diet Modifications: Nutrition Percent Meal Consumed 100% 06/02/25 06:00 Percent Meal Consumed 50% 06/01/25 14:40 Percent Meal Consumed 25% 05/31/25 18:00 Labs: RBC 3.12 X10^6/uL (4.0-5.2) L 06/02/25 06:20 Hgb 10.5 g/dL (12.0-16.0) L 06/02/25 06:20 Hct 31.5 % (36-46) L 06/02/25 06:20 Creatinine 1.11 mg/dL (0.52-1.04) H 06/02/25 06:20 Lactate 0.9 mmol/L (0.7-2.1) 05/27/25 04:02 Electronically Signed by: Keysha Campos 06/02/25 10:47 Clinical Dietitian [address] [id number]
[2025-06-02] MEDS: LIDOCAINE 5% PATCH 1 EACH TOP (12:44)
--- NOTE | 2025-06-02 14:24 | CM.DPNOTE ---
DCP note [employer] reviewed EMR per provider, sensitivities still pending. anticipate dc tomorrow. no new needs identified at this time. P: home with partner and [facility] C[facility] once sensitivities finalized. CM team will continue to follow closely for DCP Coordination JANET Chavez
[2025-06-02 20:03] VITALS: BP 128/70; PULSE 95; RESP 18; TEMP 35.8; O2SAT 95
[2025-06-03] VITALS: BP 165/77; PULSE 85; RESP 15; TEMP 36.1; O2SAT 99
[2025-06-03 04:00] VITALS: BP 152/77; PULSE 90; RESP 16; TEMP 36; O2SAT 97
[2025-06-03] MEDS: MEROPENEM 1 GM in SODIUM CHLORIDE 0.9% 100 ML IV ×2 (04:56→16:12)
[2025-06-03 06:45] LABS: Add Manual Diff / Slide Review NO; Hematocrit 31.4 % (36-46); Hemoglobin 10.7 g/dL (12.0-16.0); Lymphocytes Absolute Auto 2200 /uL (1100-4500); Mean Corpuscular HGB Conc 33.9 % (30-36); Mean Corpuscular Hemoglobin 33.9 PG (26-34); Mean Corpuscular Volume 100.1 fL (80-100); Platelet Count 422 X10^3/uL (150-400)
[2025-06-03 06:56] LABS: Anisocytosis 3+; Blood Urea Nitrogen 26 mg/dL (7-17); Calcium 9.4 mg/dL (8.4-10.2); Carbon Dioxide 27 mmol/L (22-32); Chloride 104 mmol/L (98-107); Estimated Glomerular Filt Rate 59 mL/min (>60); Glucose 95 mg/dL (70-99); HEMOLYSIS 30 (0-50); Magnesium 1.8 mg/dL (1.6-2.3); Potassium 5.0 mmol/L (3.4-5.1); Sodium 134 mmol/L (137-145)
[2025-06-03] MEDS: ATORVASTATIN 20 MG TABLET 40 MG PO (09:56)
[2025-06-03] MEDS: ASPIRIN EC 81 MG TABLET PO (09:56)
[2025-06-03] MEDS: PANTOPRAZOLE DR 40 MG TABLET PO (09:56)
[2025-06-03] MEDS: LIDOCAINE 5% PATCH 1 EACH TOP (09:56)
[2025-06-03] MEDS: METOPROLOL IR 25 MG TABLET PO ×2 (09:56→22:16)
[2025-06-03] MEDS: HEPARIN 5,000 UNIT/ML VIAL 5000 UNIT SUBCUT ×2 (09:56→22:16)
[2025-06-03] MEDS: SODIUM CHLORIDE 0.9% FLUSH 10 ML IV ×2 (09:57→22:15)
[2025-06-03] MEDS: ACETAMINOPHEN 325 MG TABLET 650 MG PO ×4 (09:59→22:20)
[2025-06-03 12:00] VITALS: BP 148/85; PULSE 88; RESP 16; TEMP 36.1; O2SAT 98
--- NOTE | 2025-06-03 15:29 | PM.PN.1 ---
Subjective Subjective Interval history: Summary: Admitted for urinary tract infection, had Citrobacter. There is a question whether or not it was resistant to previous treatment with cephalosporins. Infectious Disease recommended meropenem and cultures were sent for sensitivities last Saturday but remain pending. The patient is slowly improving. Cultures remain pending today. They are supposed to post some time today. S: She requests diclofenac for a left knee. She was ongoing bilateral kidney aching. She was chronically ill, and essentially is nearly bed-bound at home. O: NAD, alert and oriented. Fluent speech. Lungs are positive for bibasilar crackles, normal rate and effort. Heart is regular, no murmur gallop or rub. Abdomen is soft, non distended. Extremities are free of edema. Some CVA tenderness bilaterally. A/P: 1. UTI. Cx with Citrobacter, no sensitivities initially done, these were requested over the weekend in her pending. 2. Metabolic acidosis (recurrent). 3. Hypokalemia. 4. FE. Creatinine 2.2 at admission. 5. Hyperlipidemia. 6. GERD. 7. Hypertension. 8. Chronic severe protein caloric malnutrition. 9. H/O alcohol use. PLAN: -Continue Abx (Meropenem) and follow Cx. Sensitivities are pending, she would be back by end of day today. Lab was called to confirm that these are pending on June 02 and reported that she would be back either on the or . -Pain control. -Monitor and replete K as needed. Exam Vital Signs (past 8 hours): - 06/03/25 09:45 06/03/25 12:00 Temperature 96.9 F L Pulse Rate 88 Respiratory Rate 16 Blood Pressure 148/85 H Pulse Oximetry 98 Oxygen Delivery Method Room Air Oxygen Flow Rate 0 Oxygen Delivery Method Room Air Oxygen Flow Rate 0 Objective Labs 06/03/25 06:30 06/03/25 06:30 Labs: Laboratory Results - last 24 hr 05/27/25 06/03/25 01:25 06:30 WBC 7.2 RBC 3.14 L Hgb 10.7 L Hct 31.4 L MCV 100.1 H MCH 33.9 MCHC 33.9 RDW 23.7 H Plt Count 422 H Neut % (Auto) 53.3 Lymph % (Auto) 30.2 [place] % (Auto) 11.2 Eos % (Auto) 3.8 Baso % (Auto) 1.5 Neut # (Auto) 3800 Lymph # (Auto) 2200 [place] # (Auto) 800 Eos # (Auto) 300 Baso # (Auto) 100 RBC Morphology Not Reportable Anisocytosis 3+ H Sodium 134 L Potassium 5.0 Chloride 104 Carbon Dioxide 27 BUN 26 H Creatinine 1.00 Estimated GFR 59 L BUN/Creatinine Ratio 26.0 H Glucose 95 Calcium 9.4 Magnesium 1.8 Ref Test (Refrig) Comment PFSH Medical History Family history of colon cancer in father Closed fracture of left distal femur Immunodeficiency due to conditions classified elsewhere Age-related osteoporosis without current pathological fracture History of vertebral compression fracture GERD without esophagitis Primary osteoarthritis involving multiple joints Chronic low back pain Stage 3b chronic kidney disease (CKD) Mixed hyperlipidemia Essential hypertension Cerebrovascular disease Coronary artery disease Recurrent UTI Displaced comminuted fracture of shaft of tibia Septic shock Left rib fracture Closed left clavicular fracture Iron (Fe) deficiency anemia Nephrolithiasis Peptic ulcer disease History of osteomyelitis Fracture, tibia Left foot drop Numbness and tingling HLD (hyperlipidemia) C. difficile colitis Colitis Anxiety Insomnia Arthritis DJD (degenerative joint disease) Depression Fibromyalgia Migraines Multiple fractures Osteoporosis Radius fracture (08/30/17) Neuropathy History of recurrent UTIs Renal disease Hypertension Chronic pain GI bleeding Surgical History Hx of kyphoplasty (07/28/19) Hx of kyphoplasty (04/28/19) Hx of kyphoplasty (~2013) Hx of elbow surgery Hx of appendectomy Hx of cholecystectomy Status post epidural steroid injection (03/25/19) H/O: hysterectomy Hx of tonsillectomy History of surgery Family History Mother No known health problems COPD (chronic obstructive pulmonary disease) Father No known health problems Social History household members: family Smoking Status: Former smoker alcohol intake: current Assessment & Plan Time-Based Coding :: [TOTAL MINUTES] spent with patient and on the chart (including review of chart, obtaining history, exam, reviewing outside data, placing orders, documenting exam and treatment plan, and counseling patient) on [DATE].
[2025-06-03 17:00] VITALS: BP 138/76; PULSE 90; RESP 16; TEMP 36.1; O2SAT 97
[2025-06-03 20:25] VITALS: BP 117/58; PULSE 90; RESP 17; TEMP 36; O2SAT 99
[2025-06-04] MEDS: ACETAMINOPHEN 325 MG TABLET 650 MG PO ×4 (02:02→14:16)
[2025-06-04] MEDS: MEROPENEM 1 GM in SODIUM CHLORIDE 0.9% 100 ML IV (04:57)
[2025-06-04 08:00] VITALS: BP 131/86; PULSE 86; RESP 18; TEMP 36.2; O2SAT 96
[2025-06-04] MEDS: ATORVASTATIN 20 MG TABLET 40 MG PO (08:55)
[2025-06-04] MEDS: PANTOPRAZOLE DR 40 MG TABLET PO (08:55)
[2025-06-04] MEDS: ASPIRIN EC 81 MG TABLET PO (08:55)
[2025-06-04] MEDS: HEPARIN 5,000 UNIT/ML VIAL 5000 UNIT SUBCUT (08:55)
[2025-06-04] MEDS: SODIUM CHLORIDE 0.9% FLUSH 10 ML IV (08:55)
[2025-06-04] MEDS: METOPROLOL IR 25 MG TABLET PO (08:57)
--- NOTE | 2025-06-04 11:23 | P.DS_ITS ---
History of Present Illness History of Present Illness Date Patient Seen: 06/04/25 Time Patient Seen: 11:20 Chief complaint: UTI Narrative: 74-year-old female with past medical history of nephrolithiasis, hyperlipidemia, GERD and hypertension presents with abdominal pain. Per the patient's report, the patient recently was seen in the ER on May 20, 2025 for UTI. The patient was deemed stable and was discharged on cefpodoxime. The patient states that she has been taking her antibiotic as instructed as outpatient. However the patient's continued to have some right sided abdominal pain which became severe today. The patient denies any fever, chills, nausea, vomiting, diarrhea, chest pain or shortness of breath. The patient also denies any dysuria or GI bleed. The patient states that she was given oxycodone initially but ran out of this medication. In the emergency room, the patient remained hemodynamically stable. WBC and serum was normal. However the patient has a bicarb less than 5 and a creatinine of 2.29. Glucose was 66. UA demonstrated again UTI. The patient had a CT scan without contrast that shows nonobstructive renal stones. The patient was given initially ceftriaxone but changed to meropenem to broaden the spectrum of antibiotic coverage. Of note lactic acid is normal. VBG shows signs of metabolic acidosis. Glucose again and shows no sign of hyperglycemia or DKA. Patient denies any and gesturing of toxin. Salicylate and alcohol level were negative. IV fluid was given. Discharge Providers Provider Date of admission: 05/27/25 04:59 Discharge Date: 06/04/25 Consults: 05/27/25 09:22 Consult to Dietitian, Adult Routine Comment: Reason For Exam: Malnutrition score, BMI 17 Discharge provider: Ricardo Cantu MD Summary Hospital Course Discharge Diagnosis: 1. UTI due to Citrobacter 2. Metabolic acidosis (recurrent). 3. Hypokalemia. 4. FE. Creatinine 2.2 at admission. 5. Hyperlipidemia. 6. GERD. 7. Hypertension. 8. Chronic severe protein caloric malnutrition. 9. H/O alcohol use. Hospital Course: Patient was admitted and treated with broad-spectrum antibiotics with IV meropenem, IV hydration, potassium replacement and continued on her usual medications, and administered pain control. Her urine culture grew Citrobacter werkmanii. Her acute kidney injury resolved with creatinine 1.0 mg/dL at discharge. She was switched to oral levofloxacin at the time of discharge with outpatient follow-up and follow-up culture advised off antibiotics. No other issues arose. Home health services were arranged. Status at Discharge Functional status at discharge: uses cane/walker Overall status at discharge: patient is progressing back to baseline Time Spent with Patient Time spent: Greater than 30 minutes Exam Vital Signs (past 8 hours): - 06/04/25 08:00 Temperature 97.1 F L Pulse Rate 86 Respiratory Rate 18 Blood Pressure 131/86 Pulse Oximetry 96 Oxygen Flow Rate 0 Oxygen Delivery Method Room Air Oxygen Flow Rate 0 Narrative Exam Narrative: NAD, alert and oriented. Fluent speech. Lungs are clear Heart is regular, no murmur gallop or rub. Abdomen is soft, non distended. Extremities are free of edema. Minimal CVA tenderness bilaterally. Objective Imaging CT-KUB 05/27/2025: Radiologist's impression: 1. Nonobstructing stones seen in atrophic left kidney. No obstructing stones or hydronephrosis. No hydroureter. Normal appearing urinary bladder. 2. No bowel obstruction or abnormal bowel wall thickening. Moderate to severe constipation. No free fluid or free air. 3. Other chronic findings as above. Labs 06/03/25 06:30 06/03/25 06:30 [facility] Medical History Age-related osteoporosis without current pathological fracture Anxiety Arthritis C. difficile colitis Cerebrovascular disease Chronic low back pain Chronic pain Closed fracture of left distal femur Closed left clavicular fracture Colitis Coronary artery disease Depression Displaced comminuted fracture of shaft of tibia DJD (degenerative joint disease) Essential hypertension Family history of colon cancer in father Fibromyalgia Fracture, tibia GERD without esophagitis GI bleeding History of osteomyelitis History of recurrent UTIs History of vertebral compression fracture HLD (hyperlipidemia) Hypertension Immunodeficiency due to conditions classified elsewhere Insomnia Iron (Fe) deficiency anemia Left foot drop Left rib fracture Migraines Mixed hyperlipidemia Multiple fractures Nephrolithiasis Neuropathy Numbness and tingling Osteoporosis Peptic ulcer disease Primary osteoarthritis involving multiple joints Radius fracture (08/30/17) Recurrent UTI Renal disease Septic shock Stage 3b chronic kidney disease (CKD) Surgical History H/O: hysterectomy History of surgery Hx of appendectomy Hx of cholecystectomy Hx of elbow surgery Hx of kyphoplasty (~2013) Hx of kyphoplasty (04/28/19) Hx of kyphoplasty (07/28/19) Hx of tonsillectomy Status post epidural steroid injection (03/25/19) Family History Mother No known health problems COPD (chronic obstructive pulmonary disease) Father No known health problems Social History household members: family Smoking Status: Former smoker alcohol intake: current Discharge Plan Discharge Plan Patient Disposition: Home Health Service Provider Discharge Comment: Followup with PCP 1 week Discharge orders & Medications Prescriptions: New levofloxacin 250 mg Tablet 750 mg PO DAILY Qty: 7 0RF Continued Ensure Plus 0.05 gram- 1.5 kcal/mL liquid 1 ea PO TID Qty: 5688 6RF Rx Instructions: Chocolate flavor is requested. diclofenac sodium 1 % gel 2 g topical 4XD PRN (Reason: pain) Qty: 100 0RF metoprolol tartrate 25 mg tablet 25 mg PO BID Qty: 180 1RF Rx Instructions: Take 1 Tablet PO BID ferrous sulfate [FeroSul] 325 mg (65 mg iron) tablet 325 mg PO DAILY Qty: 30 0RF thiamine mononitrate (vit B1) 100 mg tablet 100 mg PO DAILY Patient Comments: Pt reports taking 1 tablet (100mg) total daily. aspirin [Adult Aspirin Regimen] 81 mg tablet,delayed release (DR/EC) 81 mg PO DAILY trazodone 50 mg tablet See Rx Instructions PO BEDTIME PRN (Reason: insomnia) Qty: 60 5RF Rx Instructions: 1-2 tablets nightly as needed for sleep cyclobenzaprine 10 mg Tablet 10 mg PO Q8HR PRN (Reason: Spasms) Qty: 10 0RF pantoprazole 40 mg Tablet,Delayed Release (Dr/Ec) 40 mg PO DAILY Qty: 30 0RF lidocaine 5 % Adhesive Patch,Medicated 1 patch topical DAILY Qty: 8 0RF tramadol 50 mg Tablet 50 mg PO TID PRN (Reason: Pain, Moderate (4-6)) Qty: 15 0RF carisoprodol 350 mg tablet 350 mg PO 4XD atorvastatin 40 mg tablet 40 mg PO DAILY oxycodone 5 mg capsule 5 mg PO Q8H PRN (Reason: pain) Qty: 15 0RF oxycodone 5 mg tablet 5 mg PO Q8H PRN (Reason: pain) Qty: 6 0RF Discontinued cefpodoxime 100 mg tablet 100 mg PO BID 10 Days Qty: 20 0RF Rx Instructions: must administer with a meal/food Diet/Activity/Treatments Diet: Regular Skin/Wound/Dressing Care Report to your healthcare provider any signs of infection, such as:: chills, fever, night sweats, increased pain, unusual drainage and unusual redness Visit Report/Discharge Packet Stand Alone Forms: Patient Portal/API, Stroke Signs & Symptoms Quality MIPS - Admit I confirm the patient?s Advance Care Plan is present, Code status is documented, Surrogate decision maker is in patient?s record [If Yes, STOP here]: Yes MIPS - Meds 'Current medications' to include all prescriptions, [id number] products, herbals, cannabis/cannabidiol products, and vitamin/mineral/dietary (nutritional) supplements. I have utilized all available resources to obtain, update, or review the patient?s current medications. [If Yes, STOP here]: Yes MIPS - DC The patient has a history of heart transplant or Left Ventricular Assist Device (LVAD). If yes, STOP here.: No The patient has current or prior documentation of left ventricular ejection fraction (LVEF) less than or equal to 40%, or moderate or severely depressed left ventricular systolic function.: No A. The patient was prescribed or already taking an Angiotensin-Converting Enzyme (CHRIST) Inhibitor, or Angiotensin Receptor Dennise (ARB).: No B. The patient was prescribed or already taking a beta-dennise. [If Yes to Both A & B, STOP here]: No Patient not prescribed/taking CHRIST or ARB, no reason given.: No Patient not prescribed/taking beta-dennise, no reason given.: No [facility] PROFEE Charge Codes Discharge inpatient/observation: [id number]
--- NOTE | 2025-06-04 14:40 | PC.NURSE ---
Removed pt PIV, pt tolerated well. No patient belongings in pharmacy, safe, or nurse fruit preserver. All belongings with pt. Provided discharge education on medications, pharmacy, follow up, and symptoms worsening. Pt and significant other stated all questions answered. Pt escorted out via WC by PCT Piero to POV with significant other.
--- NOTE | 2025-06-04 16:08 | CM.DPC ---
DCP note CAN PUSHER reviewed EMR per provider, sensitivities back. cleared to dc home on PO abx. CAN PUSHER met with pt in room. agreeable to dc home today. partner to come transport. continue to deny HH. no further CM needs at this time. P: home with partner and [facility] CGs during the week. no further CM needs at this time. will continue to follow as needed JANET Chavez
== END 2025-06-04 14:45 | disposition home or self-care (01) | DRG 689 ==
LOC: ED 05-27 04:43 → AC 05-27 05:05
PROVIDERS: Hospitalist; Admitting Provider Internal Medicine; Emergency Provider Emergency Medicine; Referring Provider Emergency Medicine; Visit Provider Internal Medicine
DX: N39.0 Urinary tract infection, site not specified (principal); E43 Unspecified severe protein-calorie malnutrition; E87.20 Acidosis, unspecified; N17.9 Acute kidney failure, unspecified; Z16.19 Resistance to other specified beta lactam antibiotics; Z68.1 Body mass index [BMI] 19.9 or less, adult; N20.0 Calculus of kidney; E86.0 Dehydration; E78.5 Hyperlipidemia, unspecified; K21.9 Gastro-esophageal reflux disease without esophagitis; I10 Essential (primary) hypertension; E87.6 Hypokalemia; F10.91 Alcohol use, unspecified, in remission; B96.89 Other specified bacterial agents as the cause of diseases classified elsewhere; D64.9 Anemia, unspecified; G47.00 Insomnia, unspecified; Y90.0 Blood alcohol level of less than 20 mg/100 ml; Z87.891 Personal history of nicotine dependence
CPT/HCPCS: 36415; 74176; 80048; 80053; 80320; 80329; 81001; 82805; 82962; 83605; 83690; 83735; 85025; 86060; 87040; 87077; 87086; 87797; 96361; 96365; 96375; 99284; 99291; G0480; J0696; J1171; J1644; J2185; J3475; J7030; J7050